=== PATIENT | male | born 1940 | race Caucasian/White ===

== ENCOUNTER 2023-10-17 14:53 | Outpatient (CLI) | payer MEDICARE, SELFPAY ==
[2023-10-17 10:47] LABS: Absolute Eosinophil Count 0.09 10^3/uL (0.0-0.7); Absolute Lymphocyte Count 0.54 10^3/uL (1.2-3.4); Absolute Monocyte Count 0.11 10^3/uL (0.1-0.8); Absolute Neutrophil Count 0.99 10^3/uL (1.2-6.7); Eosinophils % 5.2 %; HCT 35.9 % (40.0-50.0); HGB 11.3 g/dL (13.5-17.5); Lymphocytes % 31.2 %; MCHC 31.5 % (32.0-36.0); MCV 89 fL (80-95); Monocytes % 6.4 %; Neutrophils % 57.2 %; RBC 4.03 10^6/uL (4.36-5.78); RDW 17.2 % (11.8-14.1); RDW-SD 55.5 fL
[2023-10-17 11:11] LABS: Diff Comment Diff Reviewed; RBC Morphology Normal
[2023-10-17 11:19] LABS: Platelet Count 28 10^3/uL (130-400); WBC 1.73 10^3/uL (4.4-10.8)
--- OUTSIDE RECORDS SUMMARY | 2023-10-17 15:03 | XMS_ITS | Encounter Summary ---
[place] [address] Care Team Providers Care Centrex Radio Operator Name Role Phone Molina Herr MD Primary Care Provider [phone] Reason for Visit * Reason Onset Date Comments Questions 10/17/2023 Encounter Details Date Type Department Care Team (Late st Contact Info) Description 10/17/2023 Telephone [place] [address] Malgorzata Reynoso, ROAD MAKER ROOM Questions Social History Tobacco Use Types Packs/Day Years Used Date Smoking Tobacco: Never Smokeless Tobacco: Never Alcohol Use Standard Drinks/Week Comments Not Currently 0 (1 standard drink = 0.6 oz pur e alcohol) B1300 Health Literacy Answer Date Recor ded How often do you need to hav e someone help you when you read instructions, pamphlets, or other written material from your doctor or pharmacy? Sometimes 08/22/2023 [facility] Utilities Answer Date Recorded In the past 12 months has e electric, gas, oil, or water company threatened to shut off services in your home? No 08/22/2023 Overall Financial Resource Strain (CARDIA) Answe r Date Recorded How hard is it for you to pa y for the very basics like food, housing, medical care, and heating? Not hard at all 08/22/2023 Hunger Vital Sign Answer Date Recorded Within the past 12 months, y ou worried that your food would run out before you got the money to buy more. Never true 08/22/19 24 Within the past 12 months, t he food you bought just didn't last and you didn't have money to get more. Never true 08/22/2023 PRAPARE - Transportation Answer Date Re corded In the past 12 months, has l ack of transportation kept you from medical appointments or from getting medications? No 08/05 In the past 12 months, has l ack of transportation kept you from meetings, work, or from getting things needed for daily living? No 08/22/2023 Housing Stability Vital Sign Answer Carrington e Recorded In the last 12 months, was t here a time when you were not able to pay the mortgage or rent on time? No 08/22/2023 In the past 12 months, how m any times have you moved where you were living? 0 08/22/2023 At any time in the past 12 m [facility], were you homeless or living in a long-term (including now)? No 08/22/2023 [facility] IPV Inpatient Questions Answer Date Recorded Does Anyone Try to Keep You From Having Contact with Others or Doing Things Outside Your Home? no 08/04/2023 Feels Threatened by Someone no 07/07 Feels Unsafe at Home or Work/School no 08/04/2023 Physical Signs of Abuse Present no 08/04/2023 Sex and Gender Information Value Date Recorded Sex Assigned at Male 02/02/2021 9:04 PM EST Gender Identity Male 02/02/2021 9:04 PM EST Sexual Orientation Not on file documented as of this encounter Miscellaneous Notes * Telephone Encounter - Malgorzata Reynoso RN - 10/17/2023 2:23 PM EDT Received call from June who stated that they need a paper order for [facility] and questioning what the infusion appointment was for tomorrow. Reviewed that the appointment scheduled for for tomorrow was erroneous and has been placed for today's IV access. Apologized for the miscommunication. Will send copy of lab order to her attached to a [facility] encounter. All her questions answered to her apparent satisfaction. She is aware to call clinic with any concerns or questions. Copy of lab order faxed to [facility]. Copy of lab order sent to pt via [facility]. documented in this encounter Plan of Treatment Upcoming Encounters Date Type Department Care Team (Late st Contact Info) Description 10/27/2023 11:15 AM EDT Office Visit Palliative Medicine at [place] [address] Elly Alston MD [facility] HOSPICE [place] [address] 10/27/2023 1:00 PM EDT Office Visit Speech Therapy at [place] [address] Debra Franco, SUPERVISOR BRIAR SHOP 11/03/2023 2:00 PM EDT Office Visit Speech Therapy at [place] [address] Debra Franco, SUPERVISOR [employer]AR [employer] 11/08/2023 2:30 PM EDT Appointment MRI at [place] [address] Navjot Grider MD [facility] [address] [place] [address] 11/09/2023 1:45 PM EDT Office Visit Hematology and Oncology at [place] [address] Isabell Jacob MD [facility] [place] [address] 11/11/2023 10:30 AM EDT Office Visit Radiation Oncology at [address] Nicki Sharpe MD [facility] [place] [address] 11/15/2023 10:00 AM EDT [place] [address] Debra Franco, SUPERVISOR [employer] 11/16/2023 9:00 AM EDT Office Visit [place] [address] Bisi Nam 11/22/2023 10:00 AM EDT [place] [address] Debra Franco SUPERVISOR [employer] 11/30/2023 9:00 AM EDT Office Visit [place] [address] Bisi Nam 12/14/2023 9:00 AM EDT Office Visit [place] [address] Bisi Nam 12/28/2023 9:00 AM EDT Office Visit [place] [address] Bisi Nam documented as of this encounter Goals Goal Patient Goal Type Associated Problems Recent Progress Patient-Stated? Author Patient's specific desired goal: Patient Facing Action Plan Andrei Lee, [facility] Note: Goal(s): maintain quality of life as much as possible Measured by: quality of life scale, ability to participate in activities which he enjoys and needs to do Time-frame: to be assessed at approximately the one year point by pharmacy, or sooner if patient asks to discuss documented as of this encounter Visit Diagnoses Not on filedocumented in this encounter Care Teams Centrex Radio Operator Relationship Specialty Start Date End Date Molina Herr MD [address] [place] [address] PCP - General 01/27/10 documented as of this encounter
--- OUTSIDE RECORDS SUMMARY | 2023-10-17 15:03 | XMS_ITS | Encounter Summary ---
Author Organization [place] [address] Care Team Providers Care Site Supervisor Name Role Phone Molina Herr MD Primary Care Provider [phone] Reason for Visit * Speech Therapy (Routine) - Authorized Specialty Diagnoses / Procedures Referred By Contac t Referred To Contact Speech Therapy Diagnoses Brain tumor RFV aphasia - please sched CURT. Debra would be preferred, but any of the neuro exposure machine operator are fine. Michael Lundberg MD [facility] [place] [address] [facility] [place] [address] Referral ID Status Reason Start Date Expiration Date Visits Requested Visits Authorized [id number] Authorized Evaluate and Treat 08/06/2023 08/05/2024 100 100 Encounter Details Date Type Department Care Team (Latest Contact Info) Description 10/13/2023 9:00 AM EDT [place] [address] Debra Franco, PROCESS PUMPER Cognitive communication disorder; Brain tumor Social History Tobacco Use Types Packs/Day Years [...] from your doctor or pharmacy? Sometimes 08/22/2023 [facility] Utilities Answer Date Recorded In the past 12 months has th e electric, gas, oil, or water company [...] were you homeless or living in a mcfp (including now)? 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 right hand dominant male who was seen on 08/24/2023 for an Outpatient Mohwtd-Aeaecixo-Ccuibrtzw Evaluation. He is known to this clinician from his inpatient assessment on 08/05/2023 which was concerning for aphasia and cognitive-communication diff iculties. Prior medical history is significant for elective LEFT craniotomy for resection of LEFT temporal mass with Kareem Dietrich TKA (~3-4 weeks prior to admission), OA, and carotid stenosis on ASA81. He was referred by Dr. Michael Lundberg (Neurosurgery), now being followed by Tonya Plasencia (Neurosurgery) as an outpatient. Also being followed by Neuro-Ophthalmology, Radiation Oncology, Neuro-Oncology, and Palliative Care. Interval History: Per chart review, Maldonado was seen by Radiation Oncology and Hematology and Oncology since our last visit. No acute events have occurred per patient-report. Fewer visual concerns/hallucinations. Subjective: Maldonado was encountered in the outpatient rehab office, unaccompanied. He was pleasant and engaged throughout this session. Objective: Pt seen for speech therapy targeting aphasia and cognitive- communication and demonstrated the following: Pain: Did not appear to be in acute distress. Cognitive-Linguistic Intervention: Formal Interview: Maldonado reported completion of Constant Therapy homework. Added more complex assignments today. Practiced multi-paragraph level reading: has been working on reading slower and sounding out words He has started a memory book on phone to help remember people - name and photos Education: Maldonado was provided education through a collaborative discussion about reading comprehension strategies. Education was provided in order to support understanding and choice-making, which islinked to motivation and outcomes in treatment. He required maximum cueing to implement them. Reading page-length passage aloud: had occasional hesitations. Dropped last sound x1; Added initial sound x1, semantic parapaphasia x3; good error detection Reading comprehension: 2/4 accuracy +2 with moderate cueing Semantic Feature Analysis (SFA): Semantic Feature Analysis is a treatment approach used to target word-finding skills through the direct stimulation of semantic categories. Pt was provided with a target picture and was asked to describe the group to which it belongs, the use, what it does (action), what it reminds the pt of (association), location where it would be found, and the properties or description of it. Trial 1: Basketball- 08/10 with minimal cueing Trial 2: Fan- 08/10 independently Phonological Components Analysis (ASSISTED LIVING ASSISTANT): Phonological Components Analysis is a treatment approach based off of the principles and structure of SFA. It targets word-finding skills through the direct stimulation of phonological categories. Ptwas provided with a target picture and was asked to identify the first sound, another word that starts with that sound (first sound associate), final sound, rhyming word, and number of syllables. Reviewed homework: Trial 1: Basketball- 07/09 with minimal cueing Trial 2: Fan- 07/09 independently Education: Maldonado has been educated on results and recommendations and verbalized understanding/agreement. At the end of the session he denied outstanding questions or concerns. Home Exercise Program (HEP) Recommendations: Free adriana suggestions: FiveStarswMovinto Fun Cross Modafirma.Meditech (choose complex level games such as gin rummy, spit, etc.) Lingraphica TalkPath Therapy (iPad only, or on desktop website) Paid adriana suggestions: Constant Therapy: good for different language skills Brain HQ: different activities targeting attention, memory, processing speed, etc. Free online word games: Wordle Mohan Quordle NYT Daily Mini Crossword Phrazle Offline activities: Plan a trip in a large city (e.g., [facility], [place]) and research your routes, tickets, places to stay, meals, etc. To make it more complex, stick to a budget! Make a bucket list and write down steps towards achieving these tasks. Make a list of the last 10 dinners you've made and how to make them. Make a list of activities that have been more difficult since your surgery and brainstorm ways to make them easier. Think of tools provided to you by your PROCESS PUMPER. Play offline/live word games with family/friends Reading: start at the sentence-level and work your way up. Try to read and work through each troublesome word before moving on. Assessment: Perfecto Okeefe was seen on 10/13/2023 for a follow-up PROCESS PUMPER visit. Addressed treatment goals targeting word-finding through SFA and ASSISTED LIVING ASSISTANT and reading fluency/comprehension through education and implementation of a functional task. Support needs ranged from minimal to maximum cueing today, depending on the tasks. Homework: continue with constant therapy; Semantic Feature Analysis and Phonological Components Analysis worksheets; Reading comprehension task Pt will benefit from continued therapeutic interventions to achieve therapy goals. 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 Recommendations: Internal memory strategies: Repetition: saying the same information over and over either in your mind or out loud Clarification: asking people questions to ensure you understand Chunking: breaking down instructions or groups of things into smaller chunks Rhyming: making a rhyme out of important information Visualization: making a picture of the information in your mind, especially where you put somethingdown Association: linking old information (superintendent marine oil terminal memory) with new information such as taking medicine with breakfast External memory strategies: Write things down in a store planner or on a calendar Set timers or alarms to remind yourself to do something Write notes to remind yourself to do something (to-do list, shopping list, etc.) Keep important items in the same place so you always remember where they are Stick to a consistent daily routine Word-Finding Strategies Delay Wait a few seconds to see if the word may come out on its own. Be patient with yourself, and ask your communication partner to give you time. ???Do you have any??? wait a minute??? a pen??? Describe Talk around the word. Give the listener a description of the word you are looking for such as color, size, what it's used for, where you'd find it, etc. ???Do you have a??? thing that you write with??? Synonyms Think of a word that means the same or something similar. ???Do you have a??? writing utensil?Not a pencil? First Letter Try to write or think of the first letter of the word. Scan the alphabet to see if any letter triggers anything for you. ???Do you have a??? (trace a ???P?? in the air)??? pen?Do you have a??? it starts with a p? Gesture Use your hands or body to act out the word, like playing a game of Just Soles. Even gesturing with your hands in a non-specific way or tapping the table may help activate the brain. ???Do you have a??? (pretend to write)??? Draw Sketch out a quick picture of what you're trying to say. You don't have to be an artist to use drawing to communicate. ???Do you have a??? (draws a pen on a notepad)??? Come Back Later If you can't think of the word and your partner can't guess, it's okay to give up for now. This is a last resort, so try other strategies first. ???Do you have a??? [tries every other strategy]??? oh, never mind??? I'll ask you later.?? Adapted from: [email or web address]-[email or web address]/ Speech Therapy Goals: All ongoing unless otherwise noted. - Patient will learn and implement word finding strategies during confrontational naming with 80% accuracy and minimal-moderate cues. - Patient will demonstrate accurate insight and metacognitive awareness of linguistic abilities anddeficits during language tasks. - Patient will independently participate in high level home exercise program w/ focus on receptive and expressive language. (CT, etc.) - Patient will use a listening comprehension strategy - i.e. visualization, paraphrasing, questioning, association, etc. - to accurately respond to 80% of WH questions about an auditory passage across three consecutive probing sessions. - Patient will improve reading comprehension of multi paragraph length info with 80% accuracy independently. - Patient will recall 100% of compensatory strategies with minimal fading cues. - Patient will utilize trained compensatory strategies while presented with auditory instructions and recall 80% of the information given use of external memory aids. - Patient will recall 5 or more items after a 30 minute delay given intermittent min verbal cues inorder to increase independence during functional memory tasks. - Patient will utilize trained strategies to complete mental manipulation tasks with 90% accuracy given min fading cues - Patient will incorporate use of journal for various ADLs with complete independence. - Patient will demonstrate selective attention to auditory stimuli with 90% accuracy given min fading cues. - Patient will demonstrate selective attention to visual stimuli with 90% accuracy given min fadingcues. - Patient will demonstrate alternating attention by being able to shift focus between tasks/activities with 90% accuracy given min fading cues. - Patient will demonstrate divided attention by responding to multiple tasks or details within tasks at the same time with 90% accuracy given min fading cues. Firewall Administrator Goals: - Patient will be able to demonstrate independence w/ higher level cognitive demands in home, community, and work environments, utilizing compensatory and support strategies independently as needed, for successful return to prior level of function. - Patient will independently demonstrate compensatory and support strategies to improve communicative effectiveness in his current living environment. Plan: - Recommend skilled PROCESS PUMPER services, 60 minute sessions, for 4 more sessions. - Implementation of a HEP Debra Franco MS, CCC-PROCESS PUMPER Speech-Language Pathologist Pager # [phone] documented in this encounter Plan of Treatment Upcoming Encounters Date Type Department Care Team (Late st Contact Info) Description 10/27/2023 11:15 AM EDT Office [place] [address] [facility] [address] HOSPICE AND [place] [address] 10/27/2023 1:00 PM EDT [place] [address] Debra Franco PROCESS PUMPER 11/03/2023 2:00 PM EDT Office Visit Speech Therapy at [place] [phone] Debra Franco, PROCESS PUMPER 11/08/2023 2:30 PM EDT Appointment MRI at [address] [facility] [address] HEMATOLOGY [place] [address] 11/09/2023 1:45 PM EDT Office Visit Hematology and Oncology at [address] [facility] [place] [address] 11/11/2023 10:30 AM EDT Office Visit Radiation Oncology at [place] [phone] [facility] [place] [address] 11/15/2023 10:00 AM EDT [place] [address] Debra Franco, ROLANDO 11/16/2023 9:00 AM EDT Office Visit [place]ology [place] [address] Bisi Nam 11/22/2023 10:00 AM EDT [place] [address] Debra Franco, ROLANDO 11/30/2023 9:00 AM EDT Office Visit [place] [address] Bisi Nam 12/14/2023 9:00 AM EDT Office Visit [place] [address] Bisi Nam 12/28/2023 9:00 AM EDT Office Visit [place] [address] Bisi Nam documented as of this encounter Goals Goal Patient Goal Type Associated Problems Recent Progress Patient-Stated? Author Patient's specific desired goal: Patient Facing Action Plan No Andrei Egan, [facility] Note: Goal(s): maintain quality of life as much as possible Measured by: quality of life scale, ability to participate in activities which he enjoys and needs to do Time-frame: to be assessed at approximately the one year point by pharmacy, or sooner if patient asks to discuss documented as of this encounter Visit Diagnoses Diagnosis Cognitive communication disorder Brain tumor Neoplasm of unspecified nature of brain documented in this encounter Care Teams Site Supervisor Relationship Specialty Start Date End Date Molina Herr MD [address] [place] [address] PCP - General 01/27/10 documented as of this encounter
--- OUTSIDE RECORDS SUMMARY | 2023-10-17 15:03 | XMS_ITS ---
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 Cognitive communication disorder 08/24/2023 Brain tumor 07/28/2023 Total knee replacement status 07/05/2023 Acute appendicitis 03/08/2017 Primary osteoarthritis of left knee (DJD) 2014 Osteomyelitis 08/31/2010 Discitis of lumbar region 08/21/2010 Lumbar degenerative disc disease 08/21/2010 Current Oncology Plans Pentamidine (Pentam) Inhalation or Infusion ([facility], [facility], [facility])* Plan Start Date: 10/14/2023 Plan Provider:Isabell Jacob MD Linked Problems Glioblastoma of temporal lob e Treatment Medications No medications scheduled. Other Current Plans Adult Transfusion Order ([facility]c)* Plan Start Date:10/10/2023 Plan Provider:Navjot Grider MD Linked Problems Thrombocytopenia Treatment Medications No medications scheduled. Past Plans No past plan information found. Radiation Treatments * No radiation treatments are documented for this patient in [facility]. Treatments may have been administered in another system.
--- OUTSIDE RECORDS SUMMARY | 2023-10-17 15:03 | XMS_ITS | Encounter Summary ---
Author Organization [facility] [place] [address] Care Team Providers Care Unisaw Operator Name Role Phone Molina Herr MD Primary Care Provider [phone] Encounter Details Date Type Department Care Team (Latest Contact Info) Description 10/13/2023 Travel Social History Tobacco Use Types Packs/Day Years [...] from your doctor or pharmacy? Sometimes 08/22/2023 [facility] Utilities Answer Date Recorded In the past 12 months has [facility] [employer], gas, oil, or water [employer] threatened to shut off services in your [...] any time in the past 12 m [facility], were you homeless or living in a fdc (including now)? No 08/22/2023 IPV Inpatient Questions Answer Date Recorded Does [...] on file documented as of this encounter Plan of Treatment Upcoming Encounters Date Type Department Care Team (Late st Contact Info) Description 10/27/2023 11:15 AM EDT Office [place] [address] Elly Alston MD [facility] DR HOSPICE AND [place] [address] 10/27/2023 1:00 PM EDT Office [place] [address] Debra Franco, METAL ROASTER 11/03/2023 2:00 PM EDT Office [place] [address] Debra Franco, METAL ROASTER 11/08/2023 2:30 PM EDT Appointment MRI at [place] [address] Navjot Grider MD [facility] DR [place] [address] 11/09/2023 1:45 PM EDT Office Visit Hematology and Oncology at [address] Isabell Jacob MD [facility] [place] [address] 11/11/2023 10:30 AM EDT Office Visit Radiation Oncology at [address] Nicki Sharpe MD [facility] [place] [address] 11/15/2023 10:00 AM EDT Office [place] [address] Debra Franco, ROLANDO 11/16/2023 9:00 AM EDT Office Visit Hematology [place] [address] Bisi Nam 11/22/2023 10:00 AM EDT Office [place] [address] Debra Franco, ROLANDO 11/30/2023 9:00 AM EDT Office Visit Hematology [place] [address] Bisi Nam 12/14/2023 9:00 AM EDT Office Visit [place] [address] Bisi Nam 12/28/2023 9:00 AM EDT Office Visit [place] [address] Bisi Nam documented as of this encounter Goals Goal Patient Goal Type Associated Problems Recent Progress Patient-Stated? Author Patient's specific desired goal: Patient Facing Action Plan Andrei Lee, [facility] Note: Goal(s): maintain quality of life as much as possible Measured by: quality of life scale, ability to participate in activities which he enjoys and needs to do Time-frame: to be assessed at approximately the one year point by pharmacy, or sooner if patient asks to discuss documented as of this encounter Visit Diagnoses Not on filedocumented in this encounter Care Teams Unisaw Operator Relationship Specialty Start Date End Date Molina Herr MD [facility] [address] [place] [address] PCP - General 01/27/10 documented as of this encounter
--- OUTSIDE RECORDS SUMMARY | 2023-10-17 15:03 | XMS_ITS | Encounter Summary ---
Author Organization [facility] [place] [address] Care Team Providers Care Blasting Worker Name Role Phone Molina Herr MD Primary Care Provider [phone] Encounter Details Date Type Department Care Team (Late st Contact Info) Description 10/13/2023 Orders Only [place]ematology [place] [address] Belinda Peña PA [facility] [place] [address] Glioblastoma of temporal lobe; 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 use; Thrombocytopenia; Lymphocytopenia Social History Tobacco Use Types Packs/Day Years [...] from your doctor or pharmacy? Sometimes 08/22/2023 [facility] Utilities Answer Date Recorded In the past [...] any time in the past 12 m [facility], were you homeless or living in a [place] [facility] [place] facility (including now)? No 08/22/2023 IPV Inpatient Questions [...] AM EDT Office [place] [address] Elly Alston MD [facility] HOSPICE AND [place] [address] 10/27/2023 1:00 PM EDT Office Visit Speech Therapy at [place] [phone] Debra Franco, ROLANDO 11/03/2023 2:00 PM EDT Office Visit Speech Therapy at [place] [phone] Debra Franco, ANALYSIS EVALUATOR 11/08/2023 2:30 PM EDT Appointment MRI at [place] [phone] Navjot Grider MD [facility] DR [place] [address] 11/09/2023 1:45 PM EDT Office Visit Hematology and Oncology at [place] [phone] Isabell Jacob MD [facility] [place] [address] 11/11/2023 10:30 AM EDT Office Visit Radiation Oncology at [place] [phone] Nicki Sharpe MD [facility] [place] [address] 11/15/2023 10:00 AM EDT Office [place] [address] Debra Franco, ANALYSIS EVALUATOR 11/16/2023 9:00 AM EDT Office Visit Hematology [place] [address] Bisi Nam 11/22/2023 10:00 AM EDT Office [place] [address] Debra rFanco, ANALYSIS EVALUATOR 11/30/2023 9:00 AM EDT Office Visit Hematology [place] [address] Bisi Nam 12/14/2023 9:00 AM EDT Office Visit Hematology [place] [address] Bisi Nam 12/28/2023 9:00 AM EDT Office Visit [place]ematology [place] [address] Bisi Nam Scheduled Orders Name Type Priority Associated Diagnoses Orde r Schedule CBC (with Diff) Lab Routine Glioblastoma of temporal lobe 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 use Thrombocytopenia Lymphocytopenia Expected: 10/17/2023, Expires: 10/12/2024 documented as of this encounter Goals Goal Patient Goal Type Associated Problems Recent Progress Patient-Stated? 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
--- OUTSIDE RECORDS SUMMARY | 2023-10-17 15:03 | XMS_ITS | Encounter Summary ---
[place] [address] Care Team Providers Care Dressmaker Helper Name Role Phone Molina Herr MD Primary Care Provider [phone] Encounter Details Date Type Department Care Team (Late st Contact Info) Description 10/17/2023 Telephone Hematology [place] [address] Malgorzata Reynoso, OTR OWNER OPERATOR TRUCK DRIVER ROOM Social History Tobacco Use Types Packs/Day Years [...] from your doctor or pharmacy? Sometimes 08/22/2023 [place] Utilities Answer Date Recorded In the past [...] any time in the past 12 m [facility], were you homeless or living in a alf (including now)? No 08/22/2023 IPV Inpatient Questions [...] Encounter - Malgorzata Reynoso RN - 10/17/2023 11:16 AM EDT CRITICAL/STAT RESULT NOTIFICATION TELEPHONE NOTE Date of call: 10/17/2023 Time of call: 11:16 AM Two patient identifiers: [x] Caller: External Hernandez bruce/YURIY Reason for call: Critical results, calling for Lab results Test and results: plts 28, wbc 1.73 Read back: [x] Recent Results (from the past 168 hour(s)) Type and screen (MC/CGP/RUBINA) Collection Time: 10/10/23 2:56 PM Result Value Ref Range ABORH Type A POSITIVE PATIENT HISTORY Unneccessary Expires at 2359 on: 10-10-2023 ANTIBODY SCREEN AUTOMATED Negative T&S only valid at [facility] CBC (with Diff) Collection Time: 10/10/23 2:56 PM Result Value Ref Range White Blood Cell 3.81 x10(3)/mcL Red Blood Cell 3.98 (L) 4.58 - 5.54 x10(6)/mcL Hemoglobin 11.1 (L) 13.7 - 16.5 g/dL Hematocrit 35.0 (L) 40.5 - 48.5 % Mean Cell Volume 87.9 82.9 - 93.1 fL Mean Cell Hemoglobin 27.9 27.5 - 32.1 pg Mean Cell Hemoglobin Concentration 31.7 (L) 32.0 - 35.7 g/dL Platelet 18 (CRIT) 145 - 357 x10(3)/mcL Mean Platelet Volume 8.3 7.6 - 12.9 fL RDW Standard Deviation 54.0 (H) 36.0 - 45.0 fL RDW coefficient of variation 17.3 (H) 11.4 - 13.8 % NRBC% auto 0.0 % NRBC Absolute 0.00 0.00 - 0.00 x10(3)/mcL Neutrophil % 77.6 % Neutrophil Absolute 2.96 1.70 - 6.10 x10(3)/mcL Lymph % 12.9 % Lymph Absolute 0.49 (L) 0.90 - 3.20 x10(3)/mcL Monocyte % 6.6 % Monocyte Absolute 0.25 (L) 0.30 - 0.90 x10(3)/mcL Eos % 2.1 % Eos Absolute 0.08 0.00 - 0.40 x10(3)/mcL Basophil % 0.3 % Baso Absolute 0.01 0.00 - 0.10 x10(3)/mcL Immature Gran % 0.5 % Immature Gran Absolute 0.02 0.00 - 0.04 x10(3)/mcL Prepare Platelets, Apheresis Collection Time: 10/11/23 6:49 AM Result Value Ref Range Status Information Transfused Product Identification APH-PLTS Unit Number [id number] Product Code [id number] Unit Blood Type APOS Specimen Expiration Date [id number] [place] 264 Issue Date / Time CBC (with Diff) Collection Time: 10/11/23 11:44 AM Result Value Ref Range White Blood Cell 4.12 x10(3)/mcL Red Blood Cell 3.93 (L) 4.58 - 5.54 x10(6)/mcL Hemoglobin 11.0 (L) 13.7 - 16.5 g/dL Hematocrit 34.6 (L) 40.5 - 48.5 % Mean Cell Volume 88.0 82.9 - 93.1 fL Mean Cell Hemoglobin 28.0 27.5 - 32.1 pg Mean Cell Hemoglobin Concentration 31.8 (L) 32.0 - 35.7 g/dL Platelet 54 (L) 145 - 357 x10(3)/mcL Mean Platelet Volume 10.2 7.6 - 12.9 fL RDW Standard Deviation 54.8 (H) 36.0 - 45.0 fL RDW coefficient of variation 17.5 (H) 11.4 - 13.8 % NRBC% auto 0.0 % NRBC Absolute 0.00 0.00 - 0.00 x10(3)/mcL Neutrophil % 82.0 % Neutrophil Absolute 3.38 1.70 - 6.10 x10(3)/mcL Lymph % 9.5 % Lymph Absolute 0.39 (L) 0.90 - 3.20 x10(3)/mcL Monocyte % 4.6 % Monocyte Absolute 0.19 (L) 0.30 - 0.90 x10(3)/mcL Eos % 3.2 % Eos Absolute 0.13 0.00 - 0.40 x10(3)/mcL Basophil % 0.2 % Baso Absolute 0.01 0.00 - 0.10 x10(3)/mcL Immature Gran % 0.5 % Immature Gran Absolute 0.02 0.00 - 0.04 x10(3)/mcL CBC (with Diff) Collection Time: 10/13/23 8:37 AM Result Value Ref Range White Blood Cell 3.30 (L) 4.00 - 9.50 x10(3)/mcL Red Blood Cell 3.92 (L) 4.58 - 5.54 x10(6)/mcL Hemoglobin 11.1 (L) 13.7 - 16.5 g/dL Hematocrit 34.9 (L) 40.5 - 48.5 % Mean Cell Volume 89.0 82.9 - 93.1 fL Mean Cell Hemoglobin 28.3 27.5 - 32.1 pg Mean Cell Hemoglobin Concentration 31.8 (L) 32.0 - 35.7 g/dL Platelet 41 (L) 145 - 357 x10(3)/mcL Mean Platelet Volume 9.8 7.6 - 12.9 fL RDW Standard Deviation 56.1 (H) 36.0 - 45.0 fL RDW coefficient of variation 17.6 (H) 11.4 - 13.8 % NRBC% auto 0.0 % NRBC Absolute 0.00 0.00 - 0.00 x10(3)/mcL Neutrophil % 68.2 % Neutrophil Absolute 2.25 1.70 - 6.10 x10(3)/mcL Lymph % 20.6 % Lymph Absolute 0.68 (L) 0.90 - 3.20 x10(3)/mcL Monocyte % 5.8 % Monocyte Absolute 0.19 (L) 0.30 - 0.90 x10(3)/mcL Eos % 4.8 % Eos Absolute 0.16 0.00 - 0.40 x10(3)/mcL Basophil % 0.3 % Baso Absolute 0.01 0.00 - 0.10 x10(3)/mcL Immature Gran % 0.3 % Immature Gran Absolute 0.01 0.00 - 0.04 x10(3)/mcL Name of Provider Notified: MURPHY Holguin Provider acknowledgement: [x] Time of Notification: 112, 1121 Mode of Notification: Secure chat Plan of care: Other: transfusion 10/16 labs: ANC 0.99, ALC 0.54 Spoke w/ Yadi at [facility] infusion suite (fax [phone], phone [phone])who stated they would need to order the plts and wouldn't be able to transfuse till ~ 1800. Spoke w/ Emi, RN & Maggy, RN on 1 W and mariza Ashton RN in infusion - 3K to start IV and 1 Wwill transfuse. MURPHY Holguin notified pt of need to come for transfusion, pt is en route back to [facility]. Repeat CBC per MURPHY Holguin. [facility] msg sent. Msg left for pt notifying him of appt @ 1430 on and need to come to first for IV access. documented in this encounter Plan of Treatment Upcoming Encounters Date Type Department Care Team (Late st Contact Info) Description 10/27/2023 11:15 AM EDT Office Visit Palliative Medicine at [place] [address] Elly Alston MD [facility] DR HOSPICE [place] [address] 10/27/2023 1:00 PM EDT Office Visit Speech Therapy at [place] [address] Debra Franco, ASSET PROTECTION DETECTIVE 11/03/2023 2:00 PM EDT Office Visit Speech Therapy at [place] [address] Debra Franco, ASSET PROTECTION DETECTIVE 11/08/2023 2:30 PM EDT Appointment MRI at [place] [address] Navjot Grider MD [facility] DR [place] [address] 11/09/2023 1:45 PM EDT Office Visit Hematology and Oncology at [place] [address] Isabell Jacob MD [facility] [place] [address] 11/11/2023 10:30 AM EDT Office Visit Radiation Oncology at [place] [address] Nicki Sharpe MD [facility] [place] [address] 11/15/2023 10:00 AM EDT Office Visit Speech Therapy at [place] [phone] [address] Debra Franco ASSET PROTECTION DETECTIVE 11/16/2023 9:00 AM EDT Office Visit Hematology and Oncology at [facility] [place] [address] Bisi Nam 11/22/2023 10:00 AM EDT Office [place] [address] Debra Franco ASSET PROTECTION DETECTIVE 11/30/2023 9:00 AM EDT Office Visit Hematology [place] [address] Bisi Nam 12/14/2023 9:00 AM EDT Office Visit [place]ology [place] [address] Bisi Nam 12/28/2023 9:00 AM EDT Office Visit [place] [address] Bisi Nam documented as of this encounter Goals Goal Patient Goal Type Associated Problems Recent Progress Patient-Stated? Author Patient's specific desired goal: Patient Facing Action Plan Andrei Lee, [facility] Note: Goal(s): maintain quality of life as much as possible Measured by: quality of life scale, ability to participate in activities which he enjoys and needs to do Time-frame: to be assessed at approximately the one year point by pharmacy, or sooner if patient asks to discuss documented as of this encounter Procedures Procedure Name Priority Date/Time Associated Diagnosis Comments EXTERNAL LAB CBC CMP THYROID RESULTS PANEL Routine 10/17/2023 10:40 AM EDT documented in this encounter Results * (ABNORMAL) CBC / CMP / Thyroid External Results (10/17/2023 10:40 AM EDT) WBC - External 1.73(L) EXTER NAL FACILITY RBC - External 4.03(L) EXTER NAL FACILITY Hemoglobin - External 11.3(L) EXTERNAL FACILITY Hematocrit - External 35.9(L) EXTERNAL FACILITY Platelets - External 28(L) EXTERNAL FACILITY Blood 10/17/2023 10:4 0 AM EDT Historical Provider EXTERNAL LAB NONA [facility]EE EXTERNAL FACILITY documented in this encounter Visit Diagnoses Not on filedocumented in this encounter Care Teams Dressmaker Helper Relationship Specialty Start Date End Date Molina Herr MD [facility] [address] [place] [address] PCP - General 01/27/10 documented as of this encounter
--- OUTSIDE RECORDS SUMMARY | 2023-10-17 15:03 | XMS_ITS | Encounter Summary ---
[place] [address] Care Team Providers Care Stucco Applicator Name Role Phone Molina Herr MD Primary Care Provider [phone] Encounter Details Date Type Department Care Team (Late st Contact Info) Description 10/13/2023 Telephone Hematology [place] [address] Malgorzata Reynoso, POOL INSTALLER ROOM Social History Tobacco Use Types Packs/Day [...] from your doctor or pharmacy? Sometimes 08/22/2023 [facility] Utilities Answer Date Recorded In the past [...] any time in the past 12 m [facility], were you homeless or living in a intermediate (including now)? No 08/22/2023 IPV Inpatient Questions [...] Telephone Encounter - Malgorzata Reynoso RN - 10/13/2023 10:19 AM EDT Plan per Isabell Jacob MD: pentamidine infusion Plan per Maggy Chatterjee RN: 1030 appt in tomorrow Pt and June verbalized agreement w/plan and confirmed they would come for appt. documented in this encounter Plan of Treatment Upcoming Encounters Date Type Department Care Team (Late st Contact Info) Description 10/27/2023 11:15 AM EDT Office Visit Palliative Medicine at [facility] [place] [address] Elly Alston MD [facility] DR HOSPICE [place] [address] 10/27/2023 1:00 PM EDT Office Visit Speech Therapy at [place] [address] Debra Franco, DIE TRIMMER 11/03/2023 2:00 PM EDT Office Visit Speech Therapy at [address] Debra Franco, DIE TRIMMER 11/08/2023 2:30 PM EDT Appointment MRI at [place] [address] Navjot Grider MD [facility] DR [place] [address] 11/09/2023 1:45 PM EDT Office Visit Hematology and Oncology at [place] [address] Isabell Jacob MD [facility] [place] [address] 11/11/2023 10:30 AM EDT Office Visit Radiation Oncology at [place] [address] Nicki Sharpe MD [facility] [place] [address] 11/15/2023 10:00 AM EDT Office [place] [address] Debra Franco, DIE TRIMMER 11/16/2023 9:00 AM EDT Office Visit Hematology and Oncology at [place] [phone] Bisi Nam 11/22/2023 10:00 AM EDT Office [place] [address] Debra Franco, DIE TRIMMER 11/30/2023 9:00 AM EDT Office Visit Hematology [place] [address] Bisi Nam 12/14/2023 9:00 AM EDT Office Visit Hematology [place] [address] Bisi Nam W 12/28/2023 9:00 AM EDT Office Visit [place]ematology [place] [address] Bisi Nam documented as of this encounter Goals Goal Patient Goal Type Associated Problems Recent Progress Patient-Stated? Author Patient's specific desired goal: Patient Facing Action Plan Andrei Lee, [facility] Note: Goal(s): maintain quality of life as much as possible Measured by: quality of life scale, ability to participate in activities which he enjoys and needs to do Time-frame: to be assessed at approximately the one year point by pharmacy, or sooner if patient asks to discuss documented as of this encounter Visit Diagnoses Not on filedocumented in this encounter Care Teams Stucco Applicator Relationship Specialty Start Date End Date Molina Herr MD [facility] [address] [place] [address] PCP - General 01/27/10 documented as of this encounter
--- OUTSIDE RECORDS SUMMARY | 2023-10-17 15:03 | XMS_ITS | Encounter Summary ---
Author Organization [facility] [place] [address] Care Team Providers Care Minute Clerk For Basic Traffic Name Role Phone Molina Herr MD Primary Care Provider [phone] Encounter Details Date Type Department Care Team (Late st Contact Info) Description 10/17/2023 Orders Only Hematology [place] [address] Belinda Peña PA [facility] [address] Thrombocytopenia (Primary Dx); 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 use Social History Tobacco Use Types Packs/Day Years [...] from your doctor or pharmacy? Sometimes 08/22/2023 [facility] Utilities Answer Date Recorded In the [...] any time in the past 12 m [facility], were you homeless or living in a jail (including now)? No 08/22/2023 IPV Inpatient Questions [...] on file documented as of this encounter Progress Notes * Belinda Peña PA - 10/17/2023 12:00 PM EDT This is an 83yo M patient with GBM on concurrent temozolamide/radiation treatment. We have been monitoring his CBC closely as this medicine is know to cause thrombocytopenia. He received 1unit of platelets last Tuesday due to low platelets which improved his count but since then his platelets have continued to fall again. He hasn't reached his lai so have asked for another unit to be transfused today. Patient has been notified of his count and our concerns and is on his way to [facility] for anotherunit of platelets. The order has been placed and the blood bank has been notified of our concerns. Neuro-onc RN will call patient when she has a time for transfusion, likely in 1W. MURPHY [place] documented in this encounter Plan of Treatment Upcoming Encounters Date Type Department Care Team (Late st Contact Info) Description 10/27/2023 11:15 AM EDT Office Visit Palliative Medicine at [place] [address] [facility] [address] HOSPICE [place] [address] 10/27/2023 1:00 PM EDT Office Visit Speech Therapy at [place] [address] Debra Franco, SALES DEVELOPMENT REPRESENTATIVE 11/03/2023 2:00 PM EDT Office Visit Speech Therapy at [place] [address] Debra Franco, SALES DEVELOPMENT REPRESENTATIVE 11/08/2023 2:30 PM EDT Appointment MRI at [place] [address] [facility] DR [place] [address] 11/09/2023 1:45 PM EDT Office Visit Hematology and Oncology at [place] [address] [facility] [place] [address] 11/11/2023 10:30 AM EDT Office Visit Radiation Oncology at [address] [facility] [place] [address] 11/15/2023 10:00 AM EDT Office Visit Speech Therapy at [place] [phone] Debra Franco, SALES DEVELOPMENT REPRESENTATIVE 11/16/2023 9:00 AM EDT Office Visit Hematology [place] [address] Bisi Nma 11/22/2023 10:00 AM EDT Office Visit [place] [address] Debra Franco, SALES DEVELOPMENT REPRESENTATIVE 11/30/2023 9:00 AM EDT Office Visit Hematology [place] [address] Bisi Nam 12/14/2023 9:00 AM EDT Office Visit Hematology [place] [address] Bisi Nam 12/28/2023 9:00 AM EDT Office Visit Hematology [place] [address] Bisi Nam Scheduled Orders Name Type Priority Associated Diagnoses Orde r Schedule Type and screen ([facility] Blood Bank Routine Thrombocytopenia 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 use Expected: 10/17/2023, Expires: 11/16/2023 documented as of this encounter Goals Goal Patient Goal Type Associated Problems Recent Progress Patient-Stated? Author Patient's specific desired goal: Patient Facing Action Plan Andrei Lee, [facility] Note: Goal(s): maintain quality of life as much as possible Measured by: quality of life scale, ability to participate in activities which he enjoys and needs to do Time-frame: to be assessed at approximately the one year point by pharmacy, or sooner if patient asks to discuss documented as of this encounter Visit Diagnoses Diagnosis Thrombocytopenia- Primary Thrombocytopenia, unspecified 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 use Encounter for long-term (current) use of other medications documented in this encounter Care Teams Minute Clerk For Basic Traffic Relationship Specialty Start Date End Date Molina Herr MD [facility] [address] [place] [address] PCP - General 01/27/10 documented as of this encounter
--- OUTSIDE RECORDS SUMMARY | 2023-10-17 15:03 | XMS_ITS | Encounter Summary ---
Author Organization [place] [address] Care Team Providers Care Moisture Meter Operator Name Role Phone Molina Hrer MD Primary Care Provider [phone] Encounter Details Date Type Department Care Team (Late st Contact Info) Description 10/13/2023 Orders Only Hematology [place] [address] Belinda Peña PA [facility] [place] [address] Social History Tobacco Use Types Packs/Day Years [...] from your doctor or pharmacy? Sometimes 08/22/2023 [facility] Utilities Answer Date Recorded In the past 12 months has e [employer], gas, oil, or water company threatened to [...] any time in the past 12 m [facility], were you homeless or living in a [...] AM EDT Office Visit Pall[place] [phone] Elly Alston MD [facility] DR HOSPICE [place] [address] 10/27/2023 1:00 PM EDT Office Visit [place] [address] Debra Franco, ROLANDO 11/03/2023 2:00 PM EDT Office Visit Speech Therapy at [address] Debra Franco, CHIEF MECHANICAL ENGINEER 11/08/2023 2:30 PM EDT Appointment MRI at [place] [address] Navjot Grider MD [facility] DR [place] [address] 11/09/2023 1:45 PM EDT Office Visit Hematology and Oncology at [address] Isabell Jacob MD [facility] [place] [address] 11/11/2023 10:30 AM EDT Office Visit Radiation Oncology at [place] [address] Nicki Sharpe MD [facility] [place] [address] 11/15/2023 10:00 AM EDT Office Visit Speech Therapy at [place] [phone] Debra Franco, ROLANDO 11/16/2023 9:00 AM EDT Office Visit Hematology [place] [address] Bisi Nam 11/22/2023 10:00 AM EDT Office Visit [place] [address] Debar Franco, ROLANDO 11/30/2023 9:00 AM EDT Office Visit Hematology [place] [address] Bisi Nam 12/14/2023 9:00 AM EDT Office Visit Hematology [place] [address] Bisi Nam 12/28/2023 9:00 AM EDT Office Visit Hematology [place] [address] Bisi Nam documented as of this encounter Goals Goal Patient Goal Type Associated Problems Recent Progress Patient-Stated? Author Patient's specific desired goal: Patient Facing Action Plan Andrei Lee, [facility] Note: Goal(s): maintain quality [...] on filedocumented in this encounter Care Teams Moisture Meter Operator Relationship Specialty Start Date End Date Molina Herr MD [address] [place] [address] PCP - General 01/27/10 documented as of this encounter
--- OUTSIDE RECORDS SUMMARY | 2023-10-17 15:03 | XMS_ITS | Encounter Summary ---
Author Organization [facility] [place] [address] Care Team Providers Care Car Rental Deliverer Name Role Phone Molina Herr MD Primary Care Provider [phone] Encounter Details Date Type Department Care Team (Late st Contact Info) Description 10/17/2023 Orders Only [place]ematology [place] [address] Belinda Peña PA [facility] [place] [address] Thrombocytopenia; 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 use Social History Tobacco [...] from your doctor or pharmacy? Sometimes 08/22/2023 [facility] Utilities Answer Date Recorded In the [...] any time in the past 12 m [facility], were you homeless or living in a [facility] (including now)? No 08/22/2023 IPV Inpatient Questions [...] AM EDT Office [place] [address] Elly Alston MD [facility] DR HOSPICE AND [place] [address] 10/27/2023 1:00 PM EDT Office [place] [address] Debra Franco, LEAD ELECTRICIAN 11/03/2023 2:00 PM EDT Office Visit Speech Therapy at [place] [phone] Debra Franco, LEAD ELECTRICIAN 11/08/2023 2:30 PM EDT Appointment MRI at [place] [address] Navjot Grider MD [facility] DR HEMATOLOGY [place] [address] 11/09/2023 1:45 PM EDT Office Visit Hematology and Oncology at [address] Isabell Jacob MD [facility] [place] [address] 11/11/2023 10:30 AM EDT Office Visit Radiation Oncology at [place] [phone] Nicki Sharpe MD [facility] [place] [address] 11/15/2023 10:00 AM EDT Office [place] [address] Debra Franco, LEAD ELECTRICIAN 11/16/2023 9:00 AM EDT Office Visit Hematology [place] [address] Bisi Nam 11/22/2023 10:00 AM EDT Office [place] [phone] Debra Franco, LEAD ELECTRICIAN 11/30/2023 9:00 AM EDT Office Visit Hematology and Oncology at [place] [phone] Bisi Nam 12/14/2023 9:00 AM EDT Office Visit [place]ematology [place] [address] Bisi Nam 12/28/2023 9:00 AM EDT Office Visit [place]ology [place] [address] Bisi Nam Scheduled Orders Name Type Priority Associated Diagnoses Orde r Schedule CBC (with Diff) Lab Routine Thrombocytopenia 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 use Expected: 10/20/2023, Expires: 02/16/2024 documented as of this encounter Goals Goal Patient Goal Type Associated Problems Recent Progress Patient-Stated? Author Patient's specific desired goal: Patient Facing Action Plan Andrei Lee, [facility] Note: Goal(s): maintain quality of life as much as possible Measured by: quality of life scale, ability to participate in activities which he enjoys and needs to do Time-frame: to be assessed at approximately the one year point by pharmacy, or sooner if patient asks to discuss documented as of this encounter Visit Diagnoses Diagnosis Thrombocytopenia Thrombocytopenia, unspecified 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 use Encounter for long-term (current) use of other medications documented in this encounter Care Teams Car Rental Deliverer Relationship Specialty Start Date End Date Molina Herr MD [address] [place] [address] PCP - General 01/27/10 documented as of this encounter
--- OUTSIDE RECORDS SUMMARY | 2023-10-17 15:03 | XMS_ITS | Encounter Summary ---
Author Organization [facility] [place] [address] Care Team Providers Care Patent Searcher Name Role Phone Molina Herr MD Primary Care Provider [phone] Encounter Details Date Type Department Care Team (Latest Contact Info) Description 10/13/2023 8:32 AM EDT - 10/13/2023 11:59 PM EDT Hospital Encounter Hematology [place] [address] Glioblastoma of temporal lobe; 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 use; Thrombocytopenia; Lymphocytopenia Discharge Disposition: Home Social History Tobacco Use Types Packs/Day Years [...] from your doctor or pharmacy? Sometimes 08/22/2023 [facility] Utilities Answer Date Recorded In the past [...] any time in the past 12 m [facility], were you homeless or living in a correction (including now)? No 08/22/2023 [facility] IPV Inpatient [...] on file documented as of this encounter Medications at Time of Discharge Medication Sig Dispensed Refills Start Date End Date atovaquone (Mepron) 750 mg/5 mL SuspensionIndication s: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 use,Lymphocytopenia, Glioblastoma of temporal lobe Take 5 mLs by mouth every 12 hours for 21 days. 210 mL 10/11/2023 11/01/2023 dexAMETHasone (Decadron) 1 mg tabletIndications:Br ain tumor Take 1 tablet daily in the morning with breakfast 60 tablet 10/07/2023 MAGNESIUM CITRATE ORAL Take 450 mg by mouth daily. riboflavin, Vitamin B2, (Vitamin B2) 100 mg tablet Take by mouth. dexAMETHasone (Decadron) 1 mg tabletIndications:Br ain tumor Take 3mg once daily with breakfast 60 tablet 3 09/16/2023 ondansetron (Zofran) 4 mg tablet Take 1 tablet by mouth every 8 hours as needed for Nausea. 30 tablet 09/15/2023 temozolomide (Temodar) 5 mg capsuleIndications:G lioblastoma of temporal lobe Take 1 capsule (5 mg) with 1 other temozolomide prescription for 145 mg total by mouth daily. Take on an empty stomach. Call clinic before/prior to starting medication/script. 21 capsule 09/05/2023 temozolomide (Temodar) 140 mg capsuleIndications:G lioblastoma of temporal lobe Take 1 capsule (140 mg) with 1 other temozolomide prescription for 145 mg total by mouth daily. Take on an empty stomach. Call clinic before/prior to starting medication/script. 21 capsule 09/05/2023 pantoprazole EC (Protonix) [address] tabletIndications:Br ain tumor Take 1 tablet by mouth daily. 90 tablet 3 09/02/2023 dexAMETHasone (Decadron) 4 mg tabletIndications:Br ain tumor Take 1 tablet by mouth daily (after breakfast). 90 tablet 09/02/2023 fluconazole (Diflucan) 150 mg tablet Take 150 mg by mouth once. levETIRAcetam (Keppra) 500 mg tablet Take 1 tablet by mouth 2 times daily. 60 tablet 3 08/25/2023 senna-docusate (Pericolace) 8.6-50 mg Tablet Take 2 tablets by mouth 2 times daily. 120 tablet 08/25/2023 aspirin EC 81 mg EC (DR) tablet Take 1 tablet by mouth 2 times daily. 60 tablet 08/11/2023 acetaminophen (Tylenol) 650 mg/20.3 mL Solution Take 31.2 mLs by mouth every 6 hours as needed (mild pain (1-3)). 07/30/2023 pantoprazole EC (Protonix) [address] tablet Take 1 tablet by mouth daily. 30 tablet 07/31/2023 acetaminophen (Tylenol) 500 mg tablet Take 2 tablets by mouth 3 times daily. 180 tablet 07/05/2023 ubiquinone (Ubiquinone) 100 mg capsule Take 200 mg by mouth once. omeprazole (PRILOSEC) 20 mg Capsule, Delayed Release(E.C.) Take 20 mg by mouth daily. 4 03/08/2014 [id number] c (SOURCE CF) 200-10 mcg-mg Chew Take 1 tablet by mouth daily. 08/04/2010 levothyroxine (SYNTHROID) 25 mcg tablet 25MCG = 1 Tablet(s), PO, Once daily 09/27/2007 atorvastatin (LIPITOR) 10 mg tablet Take 20 mg by mouth. 09/27/2007 documented as of this encounter Plan of Treatment Upcoming Encounters Date Type Department Care Team (Late st Contact Info) Description 10/27/2023 11:15 AM EDT Office Visit Palliative Medicine at [place] [address] Elly Alston MD [facility] DR HOSPICE AND [place] [address] 10/27/2023 1:00 PM EDT Office Visit Speech Therapy at [place] [address] Debra Franco, DIRECTOR HOME HEALTH 11/03/2023 2:00 PM EDT Office Visit Speech Therapy at [place] [address] Debra Franco, DIRECTOR HOME HEALTH 11/08/2023 2:30 PM EDT Appointment MRI at [place] [address] Navjot Grider MD [facility] DR HEMATOLOGY [place] [address] 11/09/2023 1:45 PM EDT Office Visit Hematology and Oncology at [place] [address] Isabell Jacob MD [facility] [place] [address] 11/11/2023 10:30 AM EDT Office Visit Radiation Oncology at [place] [address] Nicki Sharpe MD [facility] DR RADIATION ONCOLOGY [place] [id number] 11/15/2023 10:00 AM EDT Office [place] [address] Debra Franco, DIRECTOR HOME HEALTH 11/16/2023 9:00 AM EDT Office Visit Hematology [place] [address] Bisi Nam 11/22/2023 10:00 AM EDT Office [place] [address] Debra Franco, DIRECTOR HOME HEALTH 11/30/2023 9:00 AM EDT Office Visit Hematology [place] [address] Bisi Nam 12/14/2023 9:00 AM EDT Office Visit [place]ematology [place] [address] Bisi Nam 12/28/2023 9:00 AM EDT Office Visit [place]ematology [place] [address] Bisi Nam documented as of this encounter [...] Procedure Name Priority Date/Time Associated Diagnosis Comments CBC (WITH DIFF) Routine 10/13/2023 8:37 AM EDT Glioblastoma of temporal lobe 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 use documented in this encounter Results * (ABNORMAL) CBC (with Diff) (10/13/2023 8:37 AM EDT) White Blood Cell 3.30(L) 4.00 - 9.50 x10(3)/mc L 10/13/2023 8:52 AM [facility] Red Blood Cell 3.92(L) 4.58 - 5.54 x10(6)/mc L 10/13/2023 8:52 AM [facility] Hemoglobin 11.1(L) 13.7 - 16.5 g/dL 10/13/2023 8:52 AM [facility] Hematocrit 34.9(L) 40.5 - 48.5 % 10/13/2023 8:52 AM [facility] Mean Cell Volume 89.0 82.9 - 93.1 fL 10/13/2023 8:52 AM [facility] Mean Cell Hemoglobin 28.3 27.5 - 32.1 pg 10/13/2023 8:52 AM [facility] Mean Cell Hemoglobin Concentration 31.8(L) 32.0 - 35.7 g/dL 10/13/2023 8:52 AM [facility] Platelet 41(L) 145 - 357 x10(3)/mc L 10/13/2023 8:52 AM [facility] Mean Platelet Volume 9.8 7.6 - 12.9 fL 10/13/2023 8:52 AM [facility] RDW Standard Deviation 56.1(H) 36.0 - 45.0 fL 10/13/2023 8:52 AM [facility] RDW coefficient of variation 17.6(H) 11.4 - 13.8 % 10/13/2023 8:52 AM [facility] NRBC% auto 0.0 % 10/13/2023 8:52 AM [facility] NRBC Absolute 0.00 0.00 - 0.00 x10(3)/mc L 10/13/2023 8:[address] [facility] Neutrophil % 68.2 % 10/13/2023 8:[address] [facility] Neutrophil Absolute 2.25 1.70 - 6.10 x10(3)/mc L 10/13/2023 8:[address] [facility] Lymph % 20.6 % 10/13/2023 8:[address] [facility] Lymph Absolute 0.68(L) 0.90 - 3.20 x10(3)/mc L 10/13/2023 8:[address] [facility] Monocyte % 5.8 % 10/13/2023 8:[address] [facility] Monocyte Absolute 0.19(L) 0.30 - 0.90 x10(3)/mc L 10/13/2023 8:[address] [facility] Eos % 4.8 % 10/13/2023 8:[address] [facility] Eos Absolute 0.16 0.00 - 0.40 x10(3)/mc L 10/13/2023 8:[address] [facility] Basophil % 0.3 % 10/13/2023 8:[address] [facility] Baso Absolute 0.01 0.00 - 0.10 x10(3)/mc L 10/13/2023 8:[address] [facility] Immature Gran % 0.3 % 8:[address] [facility] Immature Gran Absolute 0.01 0.00 - 0.04 x10(3)/mc L 10/13/2023 8:[address] [facility] Blood VENOUS BLOOD SPECIMEN / Unknown Venipuncture / Unknown 10/13/2023 8:37 AM EDT 10/13/2023 8:37 AM EDT Navjot Grider MD [place] [address] documented in this encounter Visit Diagnoses Diagnosis Glioblastoma of temporal lobe Malignant neoplasm of temporal lobe of brain 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 use Encounter for long-term (current) use of other medications Thrombocytopenia Thrombocytopenia, unspecified Lymphocytopenia documented in this encounter Care Teams Patent Searcher Relationship Specialty Start Date End Date Molina Herr MD [address] [address] [place] [address] PCP - General 01/27/10 documented as of this encounter
--- OUTSIDE RECORDS SUMMARY | 2023-10-17 15:03 | XMS_ITS | Clinical Summary ---
Author Organization [facility] [place] [address] Care Team Providers Care Algologist Name Role Phone Molina Herr MD Primary Care Provider [phone] Allergies Active Allergy Reactions Criticality Noted Date Comments Penicillins Hives Medium PAT Penicillin Allergy Risk Assessment 06/13/2023: Low risk penicillin allergy. OK to receive full dose of cefazolin, cefuroxime, or any 3rd or 4th+ generation cephalosporin. Medications Medication Sig Dispensed Refills Start Date End Date Status levothyroxine (SYNTHROID) 25 mcg tablet 25MCG = 1 Tablet(s), PO, Once daily 09/27/2007 Active atorvastatin (LIPITOR) 10 mg tablet Take 20 mg by mouth. 09/27/2007 Active multivitamins-FA- zinc (SOURCE CF) 200-10 mcg-mg Chew Take 1 tablet by mouth daily. 08/04/2010 Active omeprazole (PRILOSEC) 20 mg Capsule, Delayed Release(E.C.) Take 20 mg by mouth daily. 4 03/08/2014 Active ubiquinone (Ubiquinone) 100 mg capsule Take 200 mg by mouth once. Active acetaminophen (Tylenol) 500 mg tablet Take 2 tablets by mouth 3 times daily. 180 tablet 07/05/2023 Active acetaminophen (Tylenol) 650 mg/20.3 mL Solution Take 31.2 mLs by mouth every 6 hours as needed (mild pain (1-3)). 07/30/2023 Active pantoprazole EC (Protonix) [address] tablet Take 1 tablet by mouth daily. 30 tablet 07/31/2023 Active aspirin EC 81 mg EC (DR) tablet Take 1 tablet by mouth 2 times daily. 60 tablet 08/11/2023 Active Additional Information Patient not taking.Reported on 10/12/2023 fluconazole (Diflucan) 150 mg tablet Take 150 mg by mouth once. Active levETIRAcetam (Keppra) 500 mg tablet Take 1 tablet by mouth 2 times daily. 60 tablet 3 08/25/2023 Active senna-docusate (Pericolace) 8.6-50 mg Tablet Take 2 tablets by mouth 2 times daily. 120 tablet 08/25/2023 Active pantoprazole EC (Protonix) [address] tabletIndications :Brain tumor Take 1 tablet by mouth daily. 90 tablet 3 09/02/2023 Active dexAMETHasone (Decadron) 4 mg tabletIndications :Brain tumor Take 1 tablet by mouth daily (after breakfast). 90 tablet 09/02/2023 Active temozolomide (Temodar) 5 mg capsuleIndication s:Glioblastoma of temporal lobe Take 1 capsule (5 mg) with 1 other temozolomide prescription for 145 mg total by mouth daily. Take on an empty stomach. Call clinic before/prior to starting medication/script. 21 capsule 09/05/2023 Active temozolomide (Temodar) 140 mg capsuleIndication s:Glioblastoma of temporal lobe Take 1 capsule (140 mg) with 1 other temozolomide prescription for 145 mg total by mouth daily. Take on an empty stomach. Call clinic before/prior to starting medication/script. 21 capsule 09/05/2023 Active ondansetron (Zofran) 4 mg tablet Take 1 tablet by mouth every 8 hours as needed for Nausea. 30 tablet 09/15/2023 Active dexAMETHasone (Decadron) 1 mg tabletIndications :Brain tumor Take 3mg once daily with breakfast 60 tablet 3 09/16/2023 Active Additional Information Patient taking differently: Take 2mg once daily with breakfast, Reported on 09/30/2023 MAGNESIUM CITRATE ORAL Take 450 mg by mouth daily. Active riboflavin, Vitamin B2, (Vitamin B2) 100 mg tablet Take by mouth. Active dexAMETHasone (Decadron) 1 mg tabletIndications :Brain tumor Take 1 tablet daily in the morning with breakfast 60 tablet 10/07/2023 Active atovaquone (Mepron) 750 mg/5 mL SuspensionIndicat ions: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 use,Lymphocytopen ia,Glioblastoma of temporal lobe Take 5 mLs by mouth every 12 hours for 21 days. 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 Brain tumor 07/28/2023 Total knee replacement status 07/05/2023 Acute appendicitis 03/08/2017 Primary osteoarthritis of left knee (DJD) 2014 Osteomyelitis 08/31/2010 Discitis of lumbar region 08/21/2010 Lumbar degenerative disc disease 08/21/2010 Encounters Date Type Department Care Team Description 10/17/2023 2:00 PM EDT Hospital Encounter Hematology Oncology Level 1 Wing D at [place] [phone] Thrombocytopenia; 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 use 10/17/2023 Telephone Hematology and Oncology at [place] [phone] Malgorzata Reynoso RN Questions 10/17/2023 Orders Only Hematology and Oncology at [place] [phone] Belinda Peña PA Thrombocytopenia; 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 use 10/17/2023 Orders Only Hematology [place] [address] Belinda Peña PA Thrombocytopenia (Primary Dx); 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 use 10/17/2023 Telephone [place]ematology [place] [address] Malgorzata Reynoso RN 10/14/2023 10:12 AM EDT - 10/14/2023 11:59 PM EDT Hospital Encounter [place]ology [place] [address] Glioblastoma of temporal lobe Discharge Disposition: Home 10/13/2023 9:00 AM EDT Office Visit Speech Therapy at [place] [phone] Debra Franco, DIPPER MACHINE OPERATOR Cognitive communication disorder; Brain tumor 10/13/2023 8:32 AM EDT - 10/13/2023 11:59 PM EDT Hospital Encounter Hematology and Oncology at [place] [phone] Glioblastoma of temporal lobe; 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 use; Thrombocytopenia; Lymphocytopenia Discharge Disposition: Home 10/13/2023 Telephone Hematology and Oncology at [place] [address] Malgorzata Reynoso RN 10/13/2023 Orders Only Hematology and Oncology at [place] [phone] Belinda Peña PA Glioblastoma of temporal lobe; 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 use; Thrombocytopenia; Lymphocytopenia 10/13/2023 Travel 10/13/2023 Orders Only Hematology and Oncology at [place] [phone] Belinda Peña PA 10/12/2023 10:00 AM EDT Office Visit Hematology and Oncology at [place] [phone] Bisi Nam Adjustment disorder with anxiety 10/12/2023 8:00 AM EDT Notes Only Radiation Oncology at [place] [phone] Nicki Sharpe MD Arrived 10/12/2023 Telephone Hematology and Oncology at [place] [phone] Osiris Sarmiento Prior Authorization 10/12/2023 Travel 10/11/2023 8:45 AM EDT - 10/11/2023 11:59 PM EDT Hospital Encounter Hematology and Oncology at [place] [phone] 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 use; Lymphocytopenia; Thrombocytopenia Discharge Disposition: Home 10/11/2023 Orders Only Hematology and Oncology at [place] [phone] Belinda Peña PA Thrombocytopenia (Primary Dx); Lymphocytopenia; 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 use; Glioblastoma of temporal lobe 10/11/2023 Notes Only Hematology [place] [address] Belinda Peña PA 10/11/2023 Orders Only Hemat[place] [address] Belinda Peña PA 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 use (Primary Dx); Lymphocytopenia; Thrombocytopenia 10/11/2023 Orders Only [place] [address] Belinda Peña PA Lymphocytopenia (Primary Dx); 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 use; Glioblastoma of temporal lobe 10/11/2023 Telephone [place]ematology [place] [address] Malgorzata Reynoso RN Follow-up ; Results 10/10/2023 5:46 PM EDT - 10/10/2023 11:59 PM EDT Hospital Encounter Hematology Oncology Level [address] [place] [address] Thrombocytopenia Discharge Disposition: Home 10/10/2023 2:30 PM EDT - 10/10/2023 5:45 PM EDT Hospital Encounter Hematology [place] [address] Thrombocytopenia; 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 use Discharge Disposition: Home 10/10/2023 Telephone Hematology [place] [address] Malgorzata Reynoso, OSCAR Results 10/10/2023 Travel 10/10/2023 Orders Only Hemat[place] [address] Belinda Peña PA Thrombocytopenia (Primary Dx); 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 use 10/10/2023 Orders Only Hematology [place] [address] Belinda Peña PA Thrombocytopenia (Primary Dx); 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 use 10/10/2023 Telephone Hematology [place] [address] Belinda Peña PA 10/07/2023 8:45 AM EDT - 10/07/2023 11:59 PM EDT Hospital Encounter Hematology [place] [address] Glioblastoma of temporal lobe; 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 use Discharge Disposition: Home 10/07/2023 8:15 AM EDT Office [place] [address] Nicki Sharpe MD Brain tumor (Primary Dx) 10/07/2023 Notes Only Hematology and Oncology at [place] [phone] Navjot Grider MD 10/07/2023 Orders Only H[place]ology [place] [address] Navjot Grider MD Thrombocytopenia 10/07/2023 Orders Only [place] [address] Navjot Grider MD Thrombocytopenia 10/07/2023 Travel 10/05/2023 Travel 10/04/2023 11:00 AM EDT Office Visit Hematology [place] [address] Navjot Grider MD Glioblastoma of temporal lobe (Primary Dx); 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 use 10/04/2023 10:00 AM EDT Office [place] [address] Debra Franco, DIPPER MACHINE OPERATOR Cognitive communication disorder; Brain tumor 10/04/2023 8:31 AM EDT - 10/04/2023 11:59 PM EDT Hospital Encounter Hematology [place] [address] Glioblastoma of temporal lobe; 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 use Discharge Disposition: Home 10/04/2023 Travel 10/04/2023 Orders Only Hemat[place] [address] Belinda Peña PA 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 use (Primary Dx); Glioblastoma of temporal lobe 10/03/2023 Travel 09/30/2023 8:30 AM EDT Office [place] [address] Nicki Sharpe MD Glioblastoma of temporal lobe (Primary Dx) 09/30/2023 [place] [address] Amira Perea 09/30/2023 Travel 09/28/2023 Travel 09/27/2023 10:00 AM EDT Office Visit Speech Therapy at [place] [phone] Debra Franco, DIPPER MACHINE OPERATOR Cognitive communication disorder; Brain tumor 09/27/2023 8:49 AM EDT - 09/27/2023 11:59 PM EDT Hospital Encounter Hematology [place] [address] Glioblastoma of temporal lobe; 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 use Discharge Disposition: Home 09/27/2023 Travel 09/26/2023 Travel 09/23/2023 9:30 AM EDT Office [place] [address] Nicki Sharpe MD Brain tumor; Glioblastoma of temporal lobe 2023 2:00 PM EDT Office [place] [address] Debra Franco, DIPPER MACHINE OPERATOR Cognitive communication disorder; Brain tumor 2023 Travel 09/21/2023 9:10 AM EDT Office [place] [address] Clinic, Dr Fuchs Team Primary osteoarthritis of left knee (DJD) 09/21/2023 Travel 09/20/2023 3:15 PM EDT Office Visit Hematology [place]cology [place] [phone] Navjot Grider MD Glioblastoma of temporal lobe (Primary Dx) 09/20/2023 9:33 AM EDT - 09/20/2023 11:59 PM EDT Hospital Encounter Hematology and Oncology at [place] [phone] Glioblastoma of temporal lobe; 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 use Discharge Disposition: Home 09/20/2023 Travel 09/19/2023 1:00 PM EDT Office [place] [address] Elly Alston MD Glioblastoma of temporal lobe; Adjustment disorder, unspecified type; Palliative care encounter 09/19/2023 Travel 09/16/2023 9:30 AM EDT Office [place] [address] Nicki Sharpe MD Brain tumor (Primary Dx) 09/15/2023 Refill Hematology and Oncology at [place] [phone] Tiny Robledo RN 09/15/2023 Travel 09/14/2023 [place] [address] Yudith Jain MD 09/14/2023 Specialty Pharmacy Pharmacy at [place] [address] Nhi Loving, [facility] Refill Coordination - 28 day recurrence (temozolomide) for HemOnc 09/13/2023 9:37 AM EDT - 09/13/2023 11:59 PM EDT Hospital Encounter Hematology and Oncology at [place] [phone] Glioblastoma of temporal lobe; 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 use Discharge Disposition: Home 09/13/2023 8:00 AM EDT Office Visit Speech Therapy at [place] [phone] Debra Franco, DIPPER MACHINE OPERATOR Cognitive communication disorder; Brain tumor 09/13/2023 Travel 09/12/2023 Travel 09/09/2023 9:45 AM EDT Office Visit Radiation Oncology at [place] [phone] Nicki Sharpe MD Brain tumor 09/09/2023 Travel 09/07/2023 2:00 PM EDT Office Visit Ophthalmology at [place] [phone] Yudith Jain MD 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); Right homonymous hemianopsia; Age-related nuclear cataract, unspecified laterality 09/07/2023 Telephone Hematology [place] [address] Belinda Peña PA 09/06/2023 1:00 PM EDT Office Visit Speech Therapy at [place] [phone] Debra Franco, DIPPER MACHINE OPERATOR Cognitive communication disorder; Brain tumor 09/06/2023 10:18 AM EDT - 09/06/2023 11:59 PM EDT Hospital Encounter [place]ematology [place] [address] Glioblastoma of temporal lobe; 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 use Discharge Disposition: Home 09/06/2023 Travel 09/05/2023 1:00 PM EDT Office Visit Hematology [place] [address] Navjot Grider MD Glioblastoma of temporal lobe 09/05/2023 Travel 09/05/2023 Specialty [place] [address] Debbi Campos, [facility] 09/02/2023 10:15 AM EDT Office [place] [address] Nicki Sharpe MD Brain tumor 09/02/2023 Travel 09/01/2023 Tele[place] [address] Amira Perea 08/31/2023 1:40 PM EDT [place] [address] Tonya Plasencia PA Brain tumor 08/31/2023 Travel 08/30/2023 Orders Only Hematology and Oncology at [place] [phone] Belinda Peña PA Glioblastoma of temporal lobe (Primary Dx); 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 use 08/30/2023 Telephone Hematology [place] [address] Malgorzata Reynoso, OSCAR Chemotherapy Teaching 08/29/2023 Travel 08/29/2023 Telephone Speech Therapy at [place] [phone] Amira Perea 08/26/2023 Specialty [place] [address] Andrei Egan, [facility] Initial Clinical Assessment/Patient Education (temozolomide) for HemOnc 08/25/2023 10:20 AM EDT Laboratory Appointment Lab [address] [address] Glioblastoma of temporal lobe 08/25/2023 8:00 AM EDT Office Visit [place]ematology [place] [address] Navjot Grider MD Glioblastoma of temporal lobe (Primary Dx) 08/25/2023 Telephone [place] [address] Flora Llamas Prior Authorization (Molecular cancer testing CPTs 56498, 49578 and 33589 are covered benefits. ) 08/25/2023 Specialty [place] [address] Orlin Chavez, [employer]UGER 08/24/2023 8:00 AM EDT Office [place] [address] Melanie Braun, DIPPER MACHINE OPERATOR Cognitive communication disorder (Primary Dx) 08/24/2023 Travel 08/22/2023 Travel 08/19/2023 1:00 PM EDT Office Visit Palliative Medicine at [place] [address] Elly Alston MD Brain tumor; Palliative care encounter 08/19/2023 11:00 AM EDT Ancillary Appointment Radiation Oncology at [place] [address] Nicki Sharpe MD Brain tumor 08/19/2023 7:39 AM EDT - 08/19/2023 11:59 PM EDT Hospital Encounter Radiology at [place] [address] iNcki Sharpe MD Brain tumor Discharge Disposition: Home 08/19/2023 Travel 08/17/2023 Travel 08/12/2023 8:30 AM EDT Office [place] [address] Nicki Sharpe MD Brain tumor (Primary Dx) 08/12/2023 Travel 08/09/2023 Travel 08/09/2023 Telephone Speech Therapy at [place] [address] Amira Perea 08/08/2023 Telephone Neurosurgery at [place] [address] Michael Lundberg MD Appointment 08/04/2023 12:34 PM EDT Anesthesia [place] [address] Deanna Barkley MD Egle, Benjamin H, DO 08/04/2023 10:15 AM EDT - 08/04/2023 2:30 PM EDT Surgery Main Operating Room [place] [phone] Rolly Dunlap MD @CRANI, FOR TUMOR, SUPRATENTORIAL, NOT MENINGIOMA (WRVU 30.83) 08/04/2023 8:42 AM EDT - 08/07/2023 4:11 PM EDT Hospital Encounter Neurosciences and ENT Unit Level 5 [place] [address] Rolly Dunlap MD Brain tumor Discharge Disposition: Home 08/04/2023 Notes [place] [address] Debra Chang 08/03/2023 10:50 AM EDT Office [place] [address] Clinic, Dr Fuchs Team Status post total right knee replacement 08/03/2023 9:16 AM EDT - 08/03/2023 11:59 PM EDT Hospital Encounter XRay at [address] [place] [address] Primary osteoarthritis of right knee; Right leg pain Discharge Disposition: Home 08/03/2023 Travel 08/03/2023 [place] [address] Jade Lake, RN 08/02/2023 [place] [address] Debra Ospina, RN 07/28/2023 10:47 PM EDT - 07/30/2023 10:49 AM EDT Hospital Encounter Neurosciences and ENT Unit Level [address] [place] [address] Rolly Dunlap MD Brain tumor Discharge Disposition: Home 07/28/2023 6:54 PM EDT - 07/28/2023 10:29 PM EDT Emergency Emergency Services at [address] [address] Vito Vidales MD Mass of brain Discharge Disposition: Recreation Facilities Supervisor [facility] 07/28/2023 5:34 PM EDT - 07/28/2023 6:53 PM EDT Hospital Encounter Radiology [place] [address] Molina Herr MD Delirium Discharge Disposition: Home 07/28/2023 Travel 07/27/2023 Travel 07/25/2023 7:04 PM EDT - 07/25/2023 11:59 PM EDT Hospital En[place] [address] Discharge Disposition: Home 07/25/2023 [place] [address] Laisha Peters MD 07/25/2023 Community Orders External [phone] Molina Herr MD Delirium 07/21/2023 [place] [address] Clinic, Dr Fuchs Team Dental Problem from Last 3 Months Immunizations Name Administration Dates Next Due Covid-19 (Moderna SPIKEVAX 2 023) Vaccine 50mcg( 12yrs+) 12/16/2022 Covid-19 (Pfizer), Rodriguez Cap Bivalent 30mcg (12Yrs+) 11/24/2021 Covid-19 (Pfizer), Purple Ca p Monovalent Vaccine (12yrs+) 12/24/2020,04/17/2020,03/25/2020 Hepatitis B Unspecified Formulation 12/04/2012,0 06/19/2012,05/16/2012 Influenza (Fluzone HD) Quadr ivalent High Dose, Preservative Free 11/17/2021,11/25/2020,11/29/2019 Influenza (Fluzone HD) Trivalent High Dose 11/17,11/28/2015 Influenza (Novel [id number]) Injectable 04/09/2009 Influenza PF, Split 12/21/2014,11/29/2012,2011 Influenza Quadrivalent (FluAd) Adjuvanted 2022 Influenza Quadrivalent, Preservative Free 2018,11/23/2017 Influenza Trivalent w/Preservative 11/28/2013 Influenza Vaccine, Whole 01/07/2008 Tuberculin Skin Test, PPD 03/29/2012 Zoster (ShingRix), Recombinant 05/15/2020,2019 Family History Medical History Relation Comments Cancer Brother Glaucoma Neg Hx Macular Degeneration Neg Hx Retinal Detachment Neg Hx Relation Status Comments Brother Social History Tobacco Use Types Packs/Day Years Used Date Smoking Tobacco: Never Smokeless Tobacco: Never Tobacco Cessation:Counseling Given: Not Answered Alcohol Use Standard Drinks/Week Comments Not Currently 0 (1 standard drink = 0.6 oz pur e alcohol) B1300 Health Literacy Answer Date Recor ded How often do you need to hav e someone help you when you read instructions, pamphlets, or other written material from your doctor or pharmacy? Sometimes 08/22/2023 [facility] Utilities Answer Date Recorded In the [...] any time in the past 12 [facility], were you homeless or living in a residential (including now)? No 08/22/2023 [facility] IPV Inpatient [...] PM EST Sexual Orientation Not on file Last Filed Vital Signs Vital Sign Reading Time Taken Comments Blood Pressure 111/76 10/14/2023 10:52 AM EDT Pulse 68 10/14/2023 10:52 AM EDT Temperature 36.1 ??C (96.9 ??F) 10/14/2023 1 0:52 AM EDT Respiratory Rate 16 10/14/2023 10:5 2 AM EDT Oxygen Saturation 99% 10/14/2023 10: 52 AM EDT Inhaled Oxygen Concentration - - Weight 81.5 kg (179 lb 10.8 oz) 024 10:01 AM EDT Height 172.2 cm (5' 7.8) 10/12/2023 10 :01 AM EDT Body Mass Index 27.48 10/12/2023 10:01 AM EDT Plan of Treatment Upcoming Encounters Date Type Department Care Team (Late st Contact Info) Description 10/27/2023 11:15 AM EDT Office [place] [address] Elly Alston MD [facility] HOSPICE AND [place] [address] 10/27/2023 1:00 PM EDT Office [place] [address] Debra Franco, DIPPER MACHINE OPERATOR 11/03/2023 2:00 PM EDT Office [place] [address] Debra Franco, DIPPER MACHINE OPERATOR 11/08/2023 2:30 PM [place] [address] Navjot Grider MD [facility] DR HEMATOLOGY [place] [address] 11/09/2023 1:45 PM EDT Office Visit Hematology and Oncology at [place] [address] Isabell Jacob MD [facility] [place] [address] 11/11/2023 10:30 AM EDT Office Visit Radiation Oncology at [place] [address] Nicki Sharpe MD [facility] [place] [address] 11/15/2023 10:00 AM EDT Office Visit Speech Therapy at [place] [phone] Debra Franco, DIPPER MACHINE OPERATOR 11/16/2023 9:00 AM EDT Office Visit Hematology and Oncology at [place] [phone] Bisi Nam 11/22/2023 10:00 AM EDT Office Visit Speech Therapy at [place] [phone] Debra Franco, DIPPER MACHINE OPERATOR 11/30/2023 9:00 AM EDT Office Visit Hematology [place] [address] Bisi Nam 12/14/2023 9:00 AM EDT Office Visit [place]ematology [place] [address] Bisi Nam 12/28/2023 9:00 AM EDT Office Visit [place]ematology [place] [address] [place] Namth W Health Maintenance Due Date Last Done Comments CT Colonography 1942 FIT DNA 1942 FIT 1942 Sigmoidoscopy 1942 Tdap adult 1961 Tetanus vaccine 1961 Pneumoccocal Vaccine: 65+ (1 of 1 - PCV) 09/23/2007 Covid-19 Vaccine (6 - 2022-2 4 season) 2023 12/16/2022, 11/24/2021, 12/24/2020, Additional history exists Influenza (Flu) vaccine (1 o f 1 - Influenza standard series) 11/06/2023 11/24/2022, 11/17/2021, 11/25/2020, Additional history exists Colonoscopy 01/21/2028 01/20/2023, 01/05, 01/12/2018, Additional history exists Colorectal Cancer Screening 01/21/2028 Sigmoidoscopy (10 year) with FIT yearly 01/20/2033 01/20/2023, 01/20/2023, 01/12/2018, Additional history exists Zoster vaccine Completed 05/15/2020, 01/23/2020 Goals Goal Patient Goal Type Associated Problems Recent Progress Patient-Stated? Author Patient's specific desired goal: Patient Facing Action Plan Andrei Lee, [facility] Note: Goal(s): maintain quality of life as much as possible Measured by: quality of life scale, ability to participate in activities which he enjoys and needs to do Time-frame: to be assessed at approximately the one year point by pharmacy, or sooner if patient asks to discuss Medical Devices Implanted Type Area Honing Machine Operator Tool Device Identifier Shelf Expiration Date Model / Serial / Lot Cement Bone Medium Viscosity Polymethyl Methacrylate ([id number]) - [id number] Implanted:Qty: 1 on 07/05/2023 by Ernie Fuchs MD at [facility] IMPLANTS Right: Knee [employer] [place] [id number] 01/04/2026 [id number] / / [id number] Comp Femoral Knee Sz 7 Right Edi Cr Cocr ([id number]) (Autoreq) - [id number] Implanted:Qty: 1 on 07/05/2023 by Ernie Fuchs MD at [facility] IMPLANTS Right: Knee [employer] - MERI MICHELLE [id number] 05/04/2033 [id number] / / [id number] Comp Patellar Knee 38mm Edi Medialized Domed Poly ([id number]) (Autoreq) - [id number] Implanted:Qty: 1 on 07/05/2023 by Ernie Fuchs MD at [facility] IMPLANTS Right: Knee [employer] - MERI MICHELLE [id number] 04/06/2025 [id number] / / [id number] Comp Tibial Knee 5mm Size 7 Edi Cr Poly ([id number]) (Autoreq) - [id number] Implanted:Qty: 1 on 07/05/2023 by Ernie Fuchs MD at [facility] IMPLANTS Right: Knee [employer] - MERI MICHELLE 04/06/2025 [id number] / / [id number] Graft Cranial Dural 3x3in Square Bovine Duragen ([id number]) - [id number] Implanted:Qty: 1 on 08/04/2023 by Rolly Dunlap MD at [facility] IMPLANTS Left: Brain [employer] - [id number] / / Plate Cmf 0.4x12mm 2 Hole Low Profile Ti Merritt Neuro Iii ([id number]) - [id number] Implanted:Qty: 3 on 08/04/2023 by Rolly Dunlap MD at [facility] IMPLANTS Left: Cranial OLGA [facility] - OLGA [id number] / / Screw Cmf 1.5x4mm Cranial Self Drilling Ti ([id number]) - [id number] Implanted:Qty: 6 on 08/04/2023 by Rolly Dunlap MD at [facility] IMPLANTS Left: Cranial OLGA [facility] OLGA [id number] / / Procedures Procedure Name Priority Date/Time Associated Diagnosis Comments EXTERNAL LAB CBC CMP THYROID RESULTS PANEL Routine 10/17/2023 10:40 AM EDT CBC (WITH DIFF) Routine 10/13/2023 8:37 AM EDT Glioblastoma of temporal lobe 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 use CBC (WITH DIFF) STAT 10/11/2023 11:44 AM EDT 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 use Lymphocytopenia Thrombocytopenia HC TR PSLD PLT, PHERESIS, IRR Routine 10/11/2023 6:49 AM EDT Thrombocytopenia TRANSFUSE 1 UNIT PLATELET PHERESIS Routine 10/10/2023 6:09 PM EDT Thrombocytopenia TYPE AND SCREEN ([facility]/CGP/RUBINA) Routine 10/10/2023 2:56 PM EDT Thrombocytopenia CBC (WITH DIFF) STAT 10/10/2023 2:56 PM EDT Thrombocytopenia 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 use LAB SCAN 10/10/2023 12:00 AM EDT DIFFERENTIAL, AUTOMATED Routine 10/07/2023 9:40 AM EDT Glioblastoma of temporal lobe 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 use HEMOGRAM Routine 10/07/2023 9:40 AM EDT Glioblastoma of temporal lobe 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 use COMPREHENSIVE METABOLIC PANEL Routine 10/07/2023 9:40 AM EDT Glioblastoma of temporal lobe CBC (WITH DIFF) Routine 10/07/2023 9:40 AM EDT Glioblastoma of temporal lobe 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 use DIFFERENTIAL, AUTOMATED Routine 10/04/2023 8:40 AM EDT Glioblastoma of temporal lobe 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 use HEMOGRAM Routine 10/04/2023 8:40 AM EDT Glioblastoma of temporal lobe 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 use MAGNESIUM Routine 10/04/2023 8:40 AM EDT Glioblastoma of temporal lobe CBC (WITH DIFF) Routine 10/04/2023 8:40 AM EDT Glioblastoma of temporal lobe 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 use PHOSPHORUS Routine 10/04/2023 8:40 AM EDT Glioblastoma of temporal lobe DIFFERENTIAL, AUTOMATED Routine 09/27/2023 9:02 AM EDT Glioblastoma of temporal lobe 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 use HEMOGRAM Routine 09/27/2023 9:02 AM EDT Glioblastoma of temporal lobe 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 use CBC (WITH DIFF) Routine 09/27/2023 9:02 AM EDT Glioblastoma of temporal lobe 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 use DIFFERENTIAL, AUTOMATED Routine 09/20/2023 9:41 AM EDT Glioblastoma of temporal lobe 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 use HEMOGRAM Routine 09/20/2023 9:41 AM EDT Glioblastoma of temporal lobe 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 use COMPREHENSIVE METABOLIC PANEL Routine 09/20/2023 9:41 AM EDT Glioblastoma of temporal lobe CBC (WITH DIFF) Routine 09/20/2023 9:41 AM EDT Glioblastoma of temporal lobe 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 use DIFFERENTIAL, AUTOMATED Routine 09/13/2023 9:46 AM EDT Glioblastoma of temporal lobe 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 use HEMOGRAM Routine 09/13/2023 9:46 AM EDT Glioblastoma of temporal lobe 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 use CBC (WITH DIFF) Routine 09/13/2023 9:46 AM EDT Glioblastoma of temporal lobe 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 use FUNDUS PHOTOS - OU- BOTH EYES Routine 09/12/2023 1:33 PM EDT 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) AUTOMATED VISUAL FIELD - EXTENDED - OU- BOTH EYES Routine 09/12/2023 1:33 PM EDT Right homonymous hemianopsia OCT OPTIC NERVE - OU - BOTH EYES Routine 09/12/2023 1:32 PM EDT 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) DIFFERENTIAL, AUTOMATED Routine 09/06/2023 10:32 AM EDT Glioblastoma of temporal lobe 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 use HEMOGRAM Routine 09/06/2023 10:32 AM EDT Glioblastoma of temporal lobe 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 use COMPREHENSIVE METABOLIC PANEL Routine 09/06/2023 10:32 AM EDT Glioblastoma of temporal lobe CBC (WITH DIFF) Routine 09/06/2023 10:32 AM EDT Glioblastoma of temporal lobe 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 use 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 Routine 08/26/2023 12:47 PM EDT Cognitive communication disorder DIFFERENTIAL, AUTOMATED Routine 08/25/2023 10:07 AM EDT Glioblastoma of temporal lobe HEMOGRAM Routine 08/25/2023 10:07 AM EDT Glioblastoma of temporal lobe CBC (WITH DIFF) Routine 08/25/2023 10:07 AM EDT Glioblastoma of temporal lobe COMPREHENSIVE METABOLIC PANEL Routine 08/25/2023 10:07 AM EDT Glioblastoma of temporal lobe HEPATITIS B CORE ANTIBODY, IGM Routine 08/25/2023 10:07 AM EDT Glioblastoma of temporal lobe HEPATITIS B SURFACE ANTIBODY Routine 08/25/2023 10:07 AM EDT Glioblastoma of temporal lobe HEPATITIS B SURFACE ANTIGEN Routine 08/25/2023 10:07 AM EDT Glioblastoma of temporal lobe CT RAD ONC NEURO INTERP ONLY Routine 08/19/2023 11:35 AM EDT Malignant neoplasm of brain and other contiguous part of central nervous system MRI BRAIN WWO CONTRAST (GENERIC) Routine 08/19/2023 8:50 AM EDT Brain tumor DIFFERENTIAL, AUTOMATED Routine 08/07/2023 5:40 AM EDT HEMOGRAM Routine 08/07/2023 5:40 AM EDT PHOSPHORUS Routine 08/07/2023 5:40 AM EDT MAGNESIUM Routine 08/07/2023 5:40 AM EDT CBC (WITH DIFF) Routine 08/07/2023 5:40 AM EDT BASIC METABOLIC PANEL Routine 08/07/2023 5:40 AM EDT EEG CONTINUOUS MONITORING INPATIENT Routine 08/06/2023 6:05 PM EDT DIFFERENTIAL, AUTOMATED Routine 08/06/2023 5:33 AM EDT HEMOGRAM Routine 08/06/2023 5:33 AM EDT PHOSPHORUS Routine 08/06/2023 5:33 AM EDT MAGNESIUM Routine 08/06/2023 5:33 AM EDT CBC (WITH DIFF) Routine 08/06/2023 5:33 AM EDT BASIC METABOLIC PANEL Routine 08/06/2023 5:33 AM EDT MRI BRAIN WWO CONTRAST (GENERIC) Routine 08/05/2023 9:39 PM EDT SCAN DOC: TELEMETRY STRIPS 08/05/2023 7:31 AM EDT DIFFERENTIAL, AUTOMATED Routine 08/05/2023 1:13 AM EDT HEMOGRAM Routine 08/05/2023 1:13 AM EDT PHOSPHORUS Routine 08/05/2023 1:13 AM EDT MAGNESIUM Routine 08/05/2023 1:13 AM EDT CBC (WITH DIFF) Routine 08/05/2023 1:13 AM EDT BASIC METABOLIC PANEL Routine 08/05/2023 1:13 AM EDT SCAN DOC: TELEMETRY STRIPS 08/04/2023 9:56 PM EDT POCT GLUCOSE Routine 08/04/2023 4:30 PM EDT SPECIMEN TO PATHOLOGY Routine 08/04/2023 2:06 PM EDT SPECIMEN TO PATHOLOGY Routine 08/04/2023 2:06 PM EDT SPECIMEN TO PATHOLOGY STAT 08/04/2023 2:02 PM EDT SOLID TUMOR NGS PANEL Routine 08/04/2023 2:01 PM EDT SURGICAL PATHOLOGY REPORT Routine 08/04/2023 2:01 PM EDT MISC TILLEY TEST-TILLEY Routine 08/04/2023 2 :01 PM EDT BLOOD GAS VENOUS POC Routine 08/04/2023 1:40 PM EDT MODIFIER,STEALTH 2,KINEVO Yes 08/04/2023 12:33 PM EDT left temp tumor Stereotactic Cptr Asstd Px Cranial, Intradural ([id number]) Yes 08/04/2023 12:33 PM EDT left temp tumor Microsurg Techniques, Req Oper Microscope ([id number]) Yes 08/04/2023 12:33 PM EDT 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 08/04/2023 12:33 PM EDT left temp tumor STEREOTACTIC COMPUTER-ASSTD NAVIGATIONAL CRANIAL INTRADURAL Routine 08/04/2023 8:47 AM EDT MICROSCOPE USE Routine 08/04/2023 8:47 AM EDT CRANI, FOR TUMOR, SUPRATENTORIAL, NOT MENINGIOMA Routine 08/04/2023 8:47 AM EDT IMPLANTABLE DEVICES SCAN 08/04/2023 12:00 AM EDT XR KNEE STANDING ALIGNMENT AP LAT SKYLINE RIGHT Routine 08/03/2023 9:39 AM EDT Primary osteoarthritis of right knee Right leg pain MRI BRAIN WO CONTRAST Routine 07/30/2023 9:[address] CHEST ABDOMEN PELVIS W CONTRAST (GENERIC) Routine 07/29/2023 1:31 PM EDT DIFFERENTIAL, AUTOMATED Routine 07/29/2023 1:25 AM EDT HEMOGRAM Routine 07/29/2023 1:25 AM EDT HC PARTIAL THROMBOPLASTIN TIME Routine 07/29/2023 1:25 AM EDT PROTHROMBIN TIME Routine 07/29/2023 1:25 AM EDT BASIC METABOLIC PANEL Routine 07/29/2023 1:25 AM EDT CBC (WITH DIFF) Routine 07/29/2023 1:25 AM EDT DIFFERENTIAL, AUTOMATED STAT 07/28/2023 7:25 PM EDT HEMOGRAM STAT 07/28/2023 7:25 PM EDT BASIC METABOLIC PANEL STAT 07/28/2023 7:25 PM EDT CBC (WITH DIFF) STAT 07/28/2023 7:25 PM EDT MRI BRAIN WWO CONTRAST (GENERIC) STAT 07/28/2023 6:50 PM EDT Delirium CRP, ACUTE INFLAMMATION Routine 07/25/2023 4:23 PM EDT GOLD TUBE HOLD Routine 07/25/2023 4:23 PM EDT DIFFERENTIAL, AUTOMATED Routine 07/25/2023 4:23 PM EDT HEMOGRAM Routine 07/25/2023 4:23 PM EDT SEDIMENTATION RATE Routine 07/25/2023 4: 23 PM EDT GOLD TUBE HOLD Routine 07/25/2023 4:23 PM EDT URINALYSIS WITH REFLEX CULTURE Routine 07/25/2023 4:23 PM EDT COMPREHENSIVE METABOLIC PANEL Routine 07/25/2023 4:23 PM EDT COLONOSCOPY Routine 01/20/2023 3:03 PM EST from Last 3 Months or Most Recently Relevant to Health Maintenance Results * (ABNORMAL) CBC / CMP / Thyroid External Results (10/17/2023 10:40 AM EDT) WBC - External 1.73(L) EXTER NAL FACILITY RBC - External 4.03(L) [facility] Hemoglobin - External 11.3(L) EXTERNAL FACILITY Hematocrit - External 35.9(L) EX[facility]NAL FACILITY Platelets - External 28(L) EX[facility]ACILITY Blood 10/17/2023 10:4 0 AM EDT Historical Provider MD EXTERNAL LAB NONA CEE EXTERNAL FACILITY * (ABNORMAL) CBC (with Diff) (10/13/2023 8:37 AM EDT) Only the most recent of3 resultswithin the time period is included. Pathologist [facility] White Blood Cell 3.30(L) 4.00 - 9.50 x10(3)/mc L 10/13/2023 8:[address] [facility] Red Blood Cell 3.92(L) 4.58 - 5.54 x10(6)/mc L 10/13/2023 8:[address] [facility] Hemoglobin 11.1(L) 13.7 - 16.5 g/dL 10/13/2023 8:[address] [facility] Hematocrit 34.9(L) 40.5 - 48.5 % 10/13/2023 8:[address] [facility] Mean Cell Volume 89.0 82.9 - 93.1 fL 10/13/2023 8:[address] [facility] Mean Cell Hemoglobin 28.3 27.5 - 32.1 pg 10/13/2023 8:[address] [facility] Mean Cell Hemoglobin Concentration 31.8(L) 32.0 - 35.7 g/dL 10/13/2023 8:[address] [facility] Platelet 41(L) 145 - 357 x10(3)/mc L 10/13/2023 8:52 AM [facility] Mean Platelet Volume 9.8 7.6 - 12.9 fL 10/13/2023 8:52 AM [facility] RDW Standard Deviation 56.1(H) 36.0 - 45.0 fL 10/13/2023 8:52 AM [facility] RDW coefficient of variation 17.6(H) 11.4 - 13.8 % 10/13/2023 8:52 AM [facility] NRBC% auto 0.0 % 10/13/2023 8:52 AM [facility] NRBC Absolute 0.00 0.00 - 0.00 x10(3)/mc L 10/13/2023 8:52 AM [facility] Neutrophil % 68.2 % 10/13/2023 8:52 AM [facility] Neutrophil Absolute 2.25 1.70 - 6.10 x10(3)/mc L 10/13/2023 8:52 AM [facility] Lymph % 20.6 % 10/13/2023 8:52 AM [facility] Lymph Absolute 0.68(L) 0.90 - 3.20 x10(3)/mc L 10/13/2023 8:52 AM [facility] Monocyte % 5.8 % 10/13/2023 8:52 AM [facility] Monocyte Absolute 0.19(L) 0.30 - 0.90 x10(3)/mc L 10/13/2023 8:52 AM [facility] Eos % 4.8 % 10/13/2023 8:52 AM [facility] Eos Absolute 0.16 0.00 - 0.40 x10(3)/mc L 10/13/2023 8:52 AM [facility] Basophil % 0.3 % 10/13/2023 8:[address] [facility] Baso Absolute 0.01 0.00 - 0.10 x10(3)/mc L 10/13/2023 8:[address] [facility] Immature Gran % 0.3 % 8:[address] [facility] Immature Gran Absolute 0.01 0.00 - 0.04 x10(3)/mc L 10/13/2023 8:[address] [facility] Blood VENOUS BLOOD SPECIMEN / Unknown Venipuncture / Unknown 10/13/2023 8:37 AM EDT 10/13/2023 8:37 AM EDT Navjot Grider MD HEMATOLOGY ORDERABLE S [facility] [place] [address] * Prepare Platelets, Apheresis (10/11/2023 6:49 AM EDT) Status Information Transfused [facility] Product Identification [id number] [facility] Unit [facility] [id number] [facility] Product Code [id number] [facility] Unit Blood Type APOS [facility] Specimen Expiration Date [facility] Volulme 264 [facility] Issue Date / Time [id number] [facility] Blood VENOUS BLOOD SPECIMEN / Unknown 10/10/2023 5:46 PM EDT Navjot Grider MD BLOOD BANK PRODUCT O RDERABLES Performing Organization Address City/[facility]/ZIP Co de Phone Number [facility] [place] [place] [address] * Transfuse 1 unit platelets, apheresis (10/10/2023 7:31 PM EDT) Navjot Grider MD NURSING TREATMENT OR DERABLES - BLOOD ADMIN * Type and screen ([facility]/CGP/RUBINA) (10/10/2023 2:56 PM EDT) [facility] ABORH Type A POSITIVE 10/10/2023 4:59 PM EDT [facility] PATIENT HISTORY Unneccessary 10/10/2023 4:59 PM EDT [facility] Expires at [id number] on: 10-10-2023 10/10/2023 4:59 PM EDT [facility] ANTIBODY SCREEN AUTOMATED Negative 10/10/2023 4:59 PM EDT [facility] T&S only valid at [facility] 10/10/2023 4:59 PM EDT [facility] Blood VENOUS BLOOD SPECIMEN / Unknown IP Care Team Draw / Unknown 10/10/2023 2:56 PM EDT 10/10/2023 2:56 PM EDT Narrative [facility] - 10/10/2023 4:59 PM EDT This Type and Screen result is only valid at the [facility] Navjot Grider MD BLOOD BANK LAB ORDER JESSICA [facility] [place] [place] [address] * Scan Doc: Lab (10/10/2023 12:00 AM EDT) Narrative 10/10/2023 12:00 AM EDT Ordered by an unspecified provider. Scanning Provider MEDIA MGR SCAN EXT O RDR/RSLT * (ABNORMAL) Hemogram (10/07/2023 9:40 AM EDT) Only the most recent of13 resultswithin the time period is included. [facility] White Blood Cell 7.0 4.0 - 9.5 x10(3)/mc L [facility] Red Blood Cell 4.08(L) 4.58 - 5.54 x10(6)/mc L [facility] Hemoglobin 11.6(L) 13.7 - 16.5 g/dL [facility] Hematocrit 36.0(L) 40.5 - 48.5 % [facility] Mean Cell Volume 88.2 82.9 - 93.[address] [facility] Mean Cell Hemoglobin 28.4 27.5 - 32.[address] [facility] Mean Cell Hemoglobin Concentration 32.2 32.0 - 35.7 g/dL [facility] Platelet 24(L) 145 - 357 x10(3)/mc L [facility] RDW Standard Deviation 55.0(H) 36.0 - 45.[address] [facility] RDW coefficient of variation 17.4(H) 11.4 - 13.8 % [facility] Mean Platelet Volume 8.9 7.6 - 12.[address] [facility] NRBC% auto 0.0 % [facility] NRBC Absolute 0.000 0.000 - 0.000 x10(3)/mc L [facility] Blood 10/07/2023 9:40 AM EDT 10/07/2023 9:49 AM EDT Narrative Resulting Agency Comment Spec In Lab Belinda ARRINGTON HEMATOLOGY ORDERABLE S [facility] [place] [address] * (ABNORMAL) Differential, Automated (10/07/2023 9:40 AM EDT) Only the most recent of13 resultswithin the time period is included. Neutrophil % 84.2 % [facility] Neutrophil Absolute 5.85 1.70 - 6.10 x10(3)/mc L [facility] Lymph % 7.1 % [facility] Lymphocytes Abs 0.5(L) 0.9 - 3.2 x10(3)/mc L [facility] Monocyte % 5.3 % [facility] Monocyte Abs 0.4 0.3 - 0.9 x10(3)/mc L [facility] Eos % 2.7 % [facility] Eosinophils Abs 0.2 0.0 - 0.4 x10(3)/ L [facility] Basophil % 0.3 % [facility] Baso Absolute 0.0 0.0 - 0.1 x10(3)/[facility] Immature Gran % 0.40 % [facility] Comment: Immature granulocytes(IG's)percentage and absolute count will include metamyelocytes, myelocytes, and promyelocytes. Blood smears from CBCs yielding IG's will be scanned manually for concordance. If this scan disagrees with the automated IG or if promyelocytes are noted, a manual differential will be performed. Immature Gran Absolute 0.03 0.00 - 0.04 x10(3)/[facility] Blood 10/07/2023 9:40 AM EDT 10/07/2023 9:49 AM EDT Narrative Resulting Agency Comment Spec In Lab Belinda ARRINGTON HEMATOLOGY ORDERABLE S [facility] [place] [address] * Comprehensive metabolic panel (non-fasting) (10/07/2023 9:40 AM EDT) Only the most recent of5 resultswithin the time period is included. Glucose 102 65 - 199 mg/dL [facility] Comment:Diabetes: >=200 mg/d L plus symptoms Blood Urea Nitrogen 20 10 - 20 mg/dL [facility] Creatinine 1.20 0.80 - 1.50 mg/dL [facility] Sodium 139 135 - 145 mmol/L [facility] Potassium 4.6 3.5 - 5.0 mmol/L [facility] Comment: Please note: ??Patients with WBC >100,000 may have falsely elevated Potassium levels. ??For accurate Potassium quantification in these patients send serum separator tube (gold top) for subsequent determinations. ??Contact the Clinical Chemistry Laboratory if there are any questions. Chloride 104 98 - 107 mmol/L [facility] Carbon Dioxide 27 22 - 31 mmol/L [facility] Anion Gap 8 5 - 15 mmol/L [facility] Calcium 9.7 8.5 - 10.5 mg/dL [facility] Protein, Total 6.7 6.1 - 8.0 g/dL [facility] Albumin 4.0 3.2 - 5.2 g/dL [facility] Aspartate Aminotransferase 21 0 - 39 unit/L [facility] Alanine Aminotransferase 25 0 - 55 unit/L [facility] Alkaline Phosphatase 49 40 - 130 unit/L [facility] Bilirubin, Total 0.5 0.2 - 1.3 mg/dL [facility] Est Glomerular Filtration Rate 61 >=60 mL/min/1. 73 m?? [facility] Comment: This patient's estimated GFR was calculated using the 2020 CKD-EPI equation. The estimated GFR can vary from the measured GFR by up to 30% in the absence of rapidly changing kidney function. Assessment of the estimated GFR is not appropriate when creatinine concentrations are rapidly changing. For clinical situations in which a more precise estimate of GFR is necessary, consider alternative methods of GFR estimation such as a 24-hour urine creatinine clearance. Assignment of CKD stage 1-5 for patients with an eGFR near the transition point between stages may be based on clinical assessment of muscle mass and symptoms in addition to eGFR. Blood 10/07/2023 9:40 AM EDT 10/07/2023 9:49 AM EDT Narrative Resulting Agency Comment Spec In Lab Navjot Grider MD CHEMISTRY ORDERABLES [facility] [place] [address] * Phosphorus (10/04/2023 8:40 AM EDT) Only the most recent of4 resultswithin the time period is included. Phosphorus 4.1 2.5 - 4.5 mg/dL [facility] Blood 10/04/2023 8:40 AM EDT 10/04/2023 8:44 AM EDT Narrative Resulting Agency Comment Spec In Lab Nicki Sharpe MD CHEMISTRY ORDERABLES Performing Organization Address City/[facility] Co de Phone Number [facility] [place] [address] * Magnesium (10/04/2023 8:40 AM EDT) Only the most recent of4 resultswithin the time period is included. Magnesium 0.95 0.69 - 1.07 mmol/L [facility] Blood 10/04/2023 8:40 AM EDT 10/04/2023 8:44 AM EDT Narrative Resulting Agency Comment Spec In Lab iNcki Sharpe MD CHEMISTRY ORDERABLES Performing Organization Address [facility] de Phone Number [facility] [place] [address] * Fundus Photos - OU - Both Eyes (09/12/2023 1:33 PM EDT) Anatomical Region Laterality Modality Other Narrative 09/12/2023 1:33 PM EDT Right Eye Disc findings include normal observations. Left Eye Disc findings include normal observations. Notes [place] [facility] Yudith Jain MD OPHTHALMOLOGY SE RVICES ORDERABLES * Automated Visual Field - Extended - OU - Both Eyes (09/12/2023 1:33 PM EDT) Anatomical Region Laterality Modality Other Narrative 09/12/2023 1:33 PM EDT Right Eye Threshold was 24-2. Strategy was ALENA. Left Eye Threshold was 24-2. Strategy was ALENA. Notes Right superior homonymous hemianopsia Yudith Jain MD OPHTHALMOLOGY SE RVICES ORDERABLES * Oct Optic Nerve - OU - Both Eyes (09/12/2023 1:32 PM EDT) Anatomical Region Laterality Modality Other Narrative 09/12/2023 1:32 PM EDT Right Eye Quality was good. Left Eye Quality was good. Notes [place] OCT OD: ??Average RNFL: 85, classification = wnl OS: ??Average RNFL: 87, classification = wnl Implication: No thinning or swelling OU. Yudith Jain MD OPHTHALMOLOGY SE RVICES ORDERABLES * Hepatitis B Core Antibody, IgM (08/25/2023 10:07 AM EDT) Hepatitis B Core IgM Negative Negative [facility] Blood 08/25/2023 10:0 7 AM EDT 08/25/2023 10:13 AM EDT Narrative Resulting Agency Comment Spec In Lab Navjot Grider MD CHEMISTRY ORDERABLES Performing Organization Address City/[facility]/ZIP Co de Phone Number [facility] [place] [address] * Hepatitis B Surface Antibody (08/25/2023 10:07 AM EDT) Hepatitis B Surface Antibody, Quantitative <3.5 IU/L [facility] Comment: HepB Surface Ab Quant: Unvaccinated: < 8.5 IU/L Vaccinated: >= 11.5 IU/L Hepatitis B Surface Antibody Negative [facility] Comment: Patient is presumed to be not vaccinated or immune to HBV infection. Expected Results: Vaccinated: Positive Unvaccinated: Negative Blood 08/25/2023 10:0 7 AM EDT 08/25/2023 10:13 AM EDT Narrative Resulting Agency Comment Spec In Lab Navjot Grider MD CHEMISTRY ORDERABLES Performing Organization Address City/[facility]/ZIP Co de Phone Number [facility] [place] [address] * Hepatitis B Surface Antigen (08/25/2023 10:07 AM EDT) Hepatitis B Surface Antigen Negative Negative [facility] Blood 08/25/2023 10:0 7 AM EDT 08/25/2023 10:13 AM EDT Narrative Resulting Agency Comment Spec In Lab Navjot Grider MD CHEMISTRY ORDERABLES [facility] [place] [address] * CT Rad Onc Neuro Interp Only (08/19/2023 11:35 AM EDT) WORKSTATION ID [id number] RAD Anatomical Region Laterality Modality Head Computed Tomogra phy Impressions 08/21/2023 12:01 PM EDT Exam for treatment planning. Left temporal resection cavity. Thank you for letting us participate in the care of this patient. ??If you are a health care provider and have any questions regarding this report, please contact the number below. ??For patients who have questions please contact the health care center manager that requested your imaging first. ? Electronically signed by: Alexandre Wei MD, [facility] ([phone]), at 08/21/2023 12:01 PM Narrative 08/21/2023 12:01 PM EDT EXAMINATION: CT RAD ONC NEURO INTERP ONLY CLINICAL HISTORY: glioblastoma ??with excellent performance status s/p gross total resection receiving 60 Gy in 30 fractions with concurrent temozolomide TECHNIQUE: CT of the head and neck performed following intravenous administration contrast for radiation treatment planning. COMPARISON: MR 08/19/2023 FINDINGS: Left temporal resection cavity with a small amount of enhancement at the margins is unchanged compared to the MR of the same day. There is no new mass. No adenopathy in the neck. No other abnormal enhancement. Left-sided craniotomy changes are similar. Procedure Note Alexandre Wei MD - 08/21/2023 EXAMINATION: CT RAD ONC NEURO INTERP ONLY CLINICAL HISTORY: glioblastoma with excellent performance status s/pgross total resection receiving 60 Gy in 30 fractions with concurrenttemozolomide TECHNIQUE: CT of the head and neck performed following intravenous administration contrast for radiation treatment planning. COMPARISON: MR 08/19/2023 FINDINGS: Left temporal resection cavity with a small amount ofenhancement at the margins is unchanged compared to the MR of the same day. There is nonew mass. No adenopathy in the neck. No other abnormal enhancement.Left-sided craniotomy changes are similar. IMPRESSION Exam for treatment planning. Left temporal resection cavity. Thank you for letting us participate in the care of this patient. If youare a health care provider and have any questions regarding this report,please contact the number below. For patients who have questions please contactthe health care center manager that requested your imaging first. Electronically signed by: Alexandre Wei MD, [facility]([phone]), at 08/21/2023 12:01 PM Nicki Sharpe MD IMG OUTSIDE INTERPRE TATION ORDERABLES * MRI Brain wwo Contrast (Generic) (08/19/2023 8:50 AM EDT) Only the most recent of3 resultswithin the time period is included. WORKSTATION ID [id number] RAD Anatomical Region Laterality Modality Head Magnetic Resonan ce Impressions 08/21/2023 10:32 AM EDT Evolution of postsurgical changes. Some enhancement at the deep margin of the resection cavity corresponds to diffusion restriction on the prior study. No new or expanding mass. Thank you for letting us participate in the care of this patient. ??If you are a health care provider and have any questions regarding this report, please contact the number below. ??For patients who have questions please contact the health care center manager that requested your imaging first. ? Electronically signed by: Alexandre Wei MD, [facility] ([phone]), at 08/21/2023 10:32 AM Narrative 08/21/2023 10:32 AM EDT EXAMINATION: MRI BRAIN WWO CONTRAST (GENERIC) CLINICAL HISTORY: glioblastoma, need T1 post-contrast thin cut axial and FLAIR D49.6, Neoplasm of unspecified behavior of brain TECHNIQUE: MRI of the brain was performed before and after the intravenous administration of 16cc Dotarem. COMPARISON: 08/05/2023, 07/30/2023 FINDINGS: There are surgical changes of left-sided craniotomy with inferior left temporal resection cavity. T1 hyperintense material is present within the resection cavity. There is a nodular area of enhancement extends to the mesial surface of the temporal lobe at the deep margin of the resection cavity (series 14 image 75). This area corresponds to restricted diffusion on the prior exam and probably represents subacute infarct tissue. Left temporal edema is slightly decreased compared to the previous study. There is no new mass or new abnormal enhancement elsewhere. There is a small subdural collection along the falx without mass effect. Major intracranial flow voids are normal. Procedure Note Alexandre Wei MD - 08/21/2023 EXAMINATION: MRI BRAIN WWO CONTRAST (GENERIC) CLINICAL HISTORY: glioblastoma, need T1 post-contrast thin cut axial andFLAIR D49.6, Neoplasm of unspecified behavior of brain TECHNIQUE: MRI of the brain was performed before and after the intravenousadministration of 16cc Dotarem. COMPARISON: 08/05/2023, 07/30/2023 FINDINGS: There are surgical changes of left-sided craniotomy with inferior lefttemporal resection cavity. T1 hyperintense material is present within theresection cavity. There is a nodular area of enhancement extends to the mesialsurface of the temporal lobe at the deep margin of the resection cavity (series 14image 75). This area corresponds to restricted diffusion on the prior exam and probably represents subacute infarct tissue. Left temporal edema isslightly decreased compared to the previous study. There is no new mass or newabnormal enhancement elsewhere. There is a small subdural collection along thefalx without mass effect. Major intracranial flow voids are normal. IMPRESSION Evolution of postsurgical changes. Some enhancement at the deep margin ofthe resection cavity corresponds to diffusion restriction on the prior study.No new or expanding mass. Thank you for letting us participate in the care of this patient. If youare a health care provider and have any questions regarding this report,please contact the number below. For patients who have questions please contactthe health care center manager that requested your imaging first. Electronically signed by: Alexandre Wei MD, [facility]([phone]), at 08/21/2023 10:32 AM Nicki Sharpe MD [facility] MRI ORDERABLES * (ABNORMAL) Basic Metabolic Panel (non-fasting) (08/07/2023 5:40 AM EDT) Only the most recent of5 resultswithin the time period is included. Glucose 116 65 - 199 mg/dL [facility] Comment:Diabetes: >=200 mg/d L plus symptoms Blood Urea Nitrogen 25(H) 10 - 20 mg/dL [facility] Creatinine 1.04 0.80 - 1.50 mg/dL [facility] Sodium 138 135 - 145 mmol/L [facility] Potassium 4.4 3.5 - 5.0 mmol/L [facility] Comment: Please note: ??Patients with WBC >100,000 may have falsely elevated Potassium levels. ??For accurate Potassium quantification in these patients send serum separator tube (gold top) for subsequent determinations. ??Contact the Clinical Chemistry Laboratory if there are any questions. Chloride 105 98 - 107 mmol/L [facility] Carbon Dioxide 23 22 - 31 mmol/L [facility] Anion Gap 10 5 - 15 mmol/L [facility] Calcium 8.6 8.5 - 10.5 mg/dL [facility] Est Glomerular Filtration Rate 73 >=60 mL/min/1. 73 m?? [facility] Comment: This patient's estimated GFR was calculated using the 2020 CKD-EPI equation. The estimated GFR can vary from the measured GFR by up to 30% in the absence of rapidly changing kidney function. Assessment of the estimated GFR is not appropriate when creatinine concentrations are rapidly changing. For clinical situations in which a more precise estimate of GFR is necessary, consider alternative methods of GFR estimation such as a 24-hour urine creatinine clearance. Assignment of CKD stage 1-5 for patients with an eGFR near the transition point between stages may be based on clinical assessment of muscle mass and symptoms in addition to eGFR. Blood 08/07/2023 5:40 AM EDT 08/07/2023 6:13 AM EDT Narrative Resulting Agency Comment Spec In Lab Rolly Dunlap MD CHEMISTRY ORDERABLES Performing Organization Address City/State/[facility] Co de Phone Number [facility] [place] [address] * EEG Continuous Monitoring Inpatient (08/06/2023 6:05 PM EDT) Narrative Flora Hagen MD - 08/06/2023 6:05 PM EDT Flora Hagen MD ? 08/08/2023 ??8:04 AM [facility] Department of Neurology Inpatient Continuous Video EEG Report Name of the Patient: ??Perfecto Polk Date of : ?1940 Date of Service: ?08/06/2023 Referring physician: ?Michael Lundberg MD Reading Fellow: ??none Reading Attending: Ti Initial time and date cEEG monitoring started: 17:36 on 08/06/2023 report EEG end time: 23:09 pm ??08/07/23 Total recording time: ??33h 33 min Indication for cvEEG: Seizure and Other (Visual disturbances across visual pretty) BRIEF HISTORY: Perfecto Polk is a 82 y.o. 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 Experiencing persistent visual disturbances. MEDICATIONS: Current Facility-Administered Medications: ??psyllium husk 1 packet, 1 packet, Oral, Daily, Tiffani Adam MD, 1 packet at 08/06/23 0900 ??[] dexAMETHasone (Decadron) tablet 4 mg, 4 mg, Oral, Q6H ADELITA, 4 mg at 08/05/23 2304 FOLLOWED BY dexAMETHasone (Decadron) tablet 4 mg, 4 mg, Oral, 2 times per day, 4 mg at 08/06/232010 FOLLOWED BY [START ON 08/09/2023] dexAMETHasone (Decadron) tablet 2 mg, 2 mg, Oral, 2 times per day FOLLOWED BY [START ON 08/12/2023] dexAMETHasone (Decadron) tablet 1 mg, 1 mg, Oral, 2 times per day FOLLOWED BY [START ON 08/15/2023] dexAMETHasone (Decadron) tablet 1 mg, 1 mg, Oral, Daily, Osiris Ospina PA ??acetaminophen (Tylenol) tablet 975 mg, 975 mg, Oral, Q6H PRN, Dajuan Ahmadi PA, 975 mg at 08/05/23 1541 ??lactulose (Chronulac) (0.67 gram/mL) oral liquid 20 g, 20 g, Oral, BID, Tiffani Adam MD, 20 g at 08/06/23 0910 ??BUPivacaine-EPINEPHrine (Marcaine-epiNEPHrine) 0.25 %-1:200,000 injection, , , PRN, Rolly Dunlap MD, 9 mL at 08/04/23 1322 ??atorvastatin (Lipitor) tablet 20 mg, 20 mg, Oral, QPM, Savana Lion MD, 20 mg at 08/06/23 1736 ??levETIRAcetam (Keppra) tablet 500 mg, 500 mg, Oral, BID, Savana Lion MD, 500 mg at 08/06/232011 ??levothyroxine (Synthroid) tablet 25 mcg, 25 mcg, Oral, QAM, Savana Lion MD, 25 mcg at 08/07/23 0510 ??pantoprazole EC (Protonix) tablet 40 mg, 40 mg, Oral, Daily, Savana Lion MD, 40 mg at 08/06/23 0910 ??sodium chloride 0.9 % (flush) (BD PosiFlush Normal Saline 0.9) flush 5 mL, 5 mL, Intravenous, BID, Savana Lion MD, 5 mL at 08/06/232011 ??sodium chloride 0.9 % (flush) (BD PosiFlush Normal Saline 0.9) flush 5-20 mL, 5-20 mL, Intravenous, Q1 Min PRN, Savana Lion MD ??lidocaine (Xylocaine) 1% (10 mg/mL) injection 3 mg, 0.3 mL, Subcutaneous, Once PRN, Savana Loin MD ??senna-docusate (Pericolace) 8.6-50 mg per tablet 2 tablet, 2 tablet, Oral, BID, Savana iLon MD, 2 tablet at 08/06/23 0910 ??bacitracin zinc-polymyxin B (Polysporin) ointment, , , PRN, Rolly Dunlap MD, 1 oz at 08/04/23 1547 ??thrombin (Bovine) (Thrombinar) kit, , , PRN, Rolly Dunlap MD, 20,000 Units at 08/04/23 1548 ??polyethylene glycoL (Miralax) packet 17 g, 17 g, Oral, Daily, Jade Kaplan PA, 17 g at 08/06/23 0910 ??HYDROmorphone (Dilaudid) tablet 2 mg, 2 mg, Oral, Q4H PRN, Jewel Ryder PA, 2 mg at 08/05/23 0952 PRIOR EEG(s): METHODS: A 21 channel digitized continuous electroencephalogram with video was set up and recording started at 17:36 on 08/06/2023. Following explanation of the procedure, the 10/20 international system of electrode placement was used to determine electrode placement and disposable MRI conditional electrodes were applied using the paste/collodion method of application. ??In addition to EEG the patient was monitored for EKG. Video was recorded during the session. RPG PROGRAMMER ANALYST'S REPORT: Performed by: Rolly Schuler At the onset of the recording the patient was awake and cooperative. Movement and other artifact was significant. Comments: None ELECTROENCEPHALOGRAPHER'S REPORT Background: The background was continuous and spontaneously reactive composed of normal voltage, 10 to 60 ??V, nicely organized anterior to posterior gradient with frontally predominant beta and posterior alpha frequencies. ??There was a 9 Hz posterior dominant rhythm that attenuated with eye opening. Focal Asymmetries: There was persistent asymmetric L temporal slowing. Sleep: Sleep was characterized by decreased myogenic artifact and increased slowing. ??There were symmetric N2 sleep transients present including sleep spindles and K complexes. ??Periods of REM were also recorded. Interictal Activity: There were no epileptiform discharges or abnormal movement patterns. Patient Events or Seizures: No patient events or electrographic seizures were recorded. Provocative Maneuvers: Hyperventilation and photic stimulation were not performed. EKG: Single-lead EKG was regular. Technical Limitations: None INTERPRETATION: This 33 -hour recording of continuous video EEG was abnormal due to persistent L temporal slowing. THere is no epileptiform activity. CLINICAL CORRELATION: The temporal slowing is consistent with the patient's mass. FLORA HAGEN MD 08/07/2023 Rolly Dunlap MD NEUROLOGY ORDERABLES * Scan Doc: Telemetry Strips (08/05/2023 7:31 AM EDT) Only the most recent of2 resultswithin the time period is included. Narrative 08/05/2023 7:31 AM EDT Ordered by an unspecified provider. Scanning Provider MEDIA MGR SCAN EXT O RDR/RSLT * POCT Glucose (08/04/2023 4:30 PM EDT) Glucose, POC 113 65 - 199 mg/dL [facility] Comment: Supplemental ranges: <140 mg/dL before meals <180 mg/dL all other times of the day Blood 08/04/2023 4:30 PM EDT 08/04/2023 4:30 PM EDT Rolly Dunlap MD POINT OF CARE TEST O RDERABLES Performing Organization Address City/State/[facility] de Phone Number [facility] [place] [address] * Specimen to Pathology (08/04/2023 2:06 PM EDT) Only the most recent of3 resultswithin the time period is included. AP Specimen 08/04/2023 2:06 PM EDT 08/04/2023 2:[address] [facility] - 08/04/2023 2:06 PM EDT Specimen requisition ordered. ??Separate Pathology report to follow Rolly Dunlap MD PATHOLOGY/CYTOLOGY O ST[place]W Performing Organization Address [facility] Co de Phone Number [facility] [place] [address] * Solid Tumor NGS Panel (08/04/2023 2:01 PM EDT) Tissue 08/04/2023 2:01 PM EDT 08/09/2023 1:39 PM EDT Narrative Resulting Agency Comment Spec In Lab Rolly Dunlap MD PATHOLOGY/CYTOLOGY O [place]LA[place] Performing Organization Address [facility] de Phone Number [facility] [place] [address] * [facility] Tilley Test-Tilley (08/04/2023 2:01 PM EDT) [employer] [facility] Tilley Test ? Result ?Flag ??Unit ??RefValue MGMT Promoter Methylation, Tumor ??Result Summary ?MGMT PROMOTER METHYLATION ABSENT ??Result ? SEE COMMENTS ?Provided diagnosis: brain glioblastoma ?Tumor tissue: Negative for MGMT promoter methylation ??Interpretation ? SEE COMMENTS ?Current data suggest that the absence of MGMT promoter ?methylation predicts lack of response to alkylating ?chemotherapy (i.e. temozolomide) for patients with ?glioblastoma. Therefore, the absence of MGMT promoter ?methylation in this tumor specimen suggests that such ?therapies may have limited value for this patient. ?Additionally, the absence of MGMT promoter methylation is ?an unfavorable prognostic factor for patients with ?glioblastoma. ? -ADDITIONAL INFORMATION--------- ?Microscopic examination was performed by a pathologist only ?to identify areas of tumor for enrichment by ?macrodissection. A methylation-specific PCR-based assay is ?used to test tumor DNA for the presence of MGMT gene ?promoter methylation. ?Test results should be interpreted in the context of ?clinical findings, family history, and other laboratory ?data. If results obtained do not match other clinical or ?laboratory findings, please contact the laboratory for ?possible interpretation. Misinterpretation of results may ?occur if the information provided is inaccurate or ?incomplete. ?Negative results do not rule out the presence methylation ?that may be present but below the limit of detection for ?this assay (approximately 15%). ?Though rare, mutations and variants within the regions of ?the MGMT promoter covered by the primers may result in ?failure to amplify the region or detect the presence of ?methylation. ?Negative results do not rule out the presence methylation ?that may be present in other CpG sites. ?This test was developed and its performance characteristics ?determined by [facility] in a manner consistent with CLIA ?requirements. This test has not been cleared or approved by ?the U.S. Food and Drug Administration. ??Additional Information ? SEE COMMENTS ?REFERENCES ?1. N Engl J Med 2005;352(10):997-100 3 (PMID: 26152621) ?2. Wendi Rev Neurol 2010;6:39-51 (PMID: 75286304) ?3. Lancet Oncol. 2012; 13:707-715 (PMID: 14958108) ?4. Lancet Oncol. 2012; 13: 916-926 (PMID: [id number]) ?5. Wendi Rev Neurol 2014;10:372-385 (PMID: [id number]) ??Specimen ? Tissue, Tumor ??Tissue ID ?[id number] ??Released by ?Kari Mares M.D., Ph.D. ?Test Performed by: ?[facility] ?[address] [place] [address] ?Spout Liner: Sheri Elise Ph.D.; CLIA# [id number] [facility] Other Other / Unknown 08/04/2023 2 :01 PM EDT 08/19/2023 1:42 PM EDT Narrative Resulting Agency Comment Spec In Lab David Irizarry MD LAB SEND OUT ORDERAB LES [facility] [place] [address] * (ABNORMAL) Surgical Pathology Report (08/04/2023 2:01 PM EDT) Final Diagnosis [id number] ? Location: L5WD; 0518; A The signing pathologist has (i) examined the relevant preparation(s) for the specimen(s) and (ii) rendered or confirmed the diagnosis(es). . ?Surgical Pathology DIAGNOSIS A - Left temporal tumor, excision ?? 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 Pathologist Performed at: ??-[facility] Dept. of Pathology, [place] [address] Project Engineering Director: Sona Hernandez MD, FCAP, ??CLIA Certificate: [id number] DISCUSSION Hematoxylin and eosin staining of the specimen shows a hypercellular glial neoplasm with areas of pseudopalisading necrosis and microvascular proliferation. The tumor cells exhibit enlarge, hyperchromatic nuclei and occasional mitotic figures. The adjacent brain parenchyma appears reactive with subpial Chaslin astrogliosis. THIS RESULT REQUIRES PHYSICIAN/A.P.P. FOLLOW UP ADDITIONAL STUDIES Formalin-fixed, paraffin-embedded tissue sections are studied using the polymer technique with appropriate positive and negative controls. ?These IHC studies provide the pathologist with adjunctive diagnostic information. Antibody specificity has been verified by testing antibodies on a series of in-house tissues with known immunohistochemical performance characteristics. The clinical interpretation of any antibody positive staining or its absence is evaluated within the context of clinical presentation, morphology, histopathological criteria and other diagnostic tests. Block ?Antibody ?Result B1 ??GFAP Highlight reactive brain parenchyma B1,B9 ??[id number] Negative B1 ??ATRX Retained B1 ??p53 approximately 5-10% B1 ??Ki67 Up to 40% SPECIMEN(S) SUBMITTED A - left temporal tumor, excision (1) ?? for frozen section B - left temporal tumor, excision (Multiple) CLINICAL INFORMATION Left temporal tumor SPECIMEN PROCESSING A - Labeled/Fixative: Left temporal tumor, fresh for frozen section. Quantity/Size: Single, 0.4 x 0.3 x 0.2 cm. Tissue Description: Peraza-pink soft tissue. Sections/Processing: Touch prep(s) are prepared. The following tissue is submitted for frozen section: Entirety of the specimen; as AFS1. . SPECIMEN PROCESSING Submitted in toto ??in 1 cassette labeled A1. B - Labeled/Fixative: Left temporal tumor, fresh. Quantity/Size: Multiple, in aggregate 6.0 x 4.2 x 1.5 cm. Tissue Description: Irregular yellow-peraza to estrella-brown focally hemorrhagic rubbery soft tissue with a central 1.5 cm irregularly bordered necrotic-appearing focus. Sections/Processing: Serially sectioned and entirely submitted in 11 cassettes labeled B1-B11(B1/B2= one section, bisected). ??shb ?Frozen Section FROZEN SECTION DIAGNOSIS (A-FS1) Smear and frozen section preparations on left temp tumor: High-grade glioma Results phoned to Dr. Dunlap on 08/04/2023 at 2:30 PM. Electronically signed by: ?Edie SUNG, PhD, [facility] Verified: ??08/04/2023 14:33 ??Pathologist Performed at: ??-[facility] Dept. of Pathology, [place] [address] Project Engineering Director: Sona Hernandez MD, FCAP, ??CLIA Certificate: [id number] This intraoperative consultation should be interpreted as a preliminary diagnosis pending review of the entire specimen and special studies, if any. A final Surgical Pathology report will follow this preliminary Frozen Section report(s).(A) 08/10/2023 9:[address] [facility] BRAIN STRUCTURE / Unknown 08/04/2023 2:01 PM EDT 08/04/2023 2:01 PM EDT BRAIN STRUCTURE / Unknown 08/04/2023 2:01 PM EDT 08/04/2023 2:01 PM EDT Rolly Dunlap MD PATHOLOGY/CYTOLOGY O RDVIJI [facility] [place] [address] * (ABNORMAL) BLOOD GAS 2 VENOUS (08/04/2023 1:40 PM EDT) pH, Venous 7.37 7.32 - 7.42 [facility] PCO2, Venous 35(L) 41 - [address] [facility] PO2, Venous 186(H) 25 - [address] [facility] Bicarbonate, Venous 20.0 mmol/L [facility] Base Excess, Venous -5.2 mmol/L [facility] Hgb Blood Gas 11.7(L) 13.7 - 16.5 g/dL [facility] Oxyhemoglobin, Venous 98.9 % [facility] Carboxyhemoglob in, Venous 0.5 % [facility] Comment: Nonsmokers: 0.5-1.5% COHB Smokers: Variable, but usually less than 10% Toxic: 20-30% COHB Lethal: Greater than 60% COHB Methemoglobin, Venous 0.3 <=1.5 % [facility] Na Whole Blood 138 135 - 145 mmol/L [facility] K Whole Blood 3.9 3.5 - 5.0 mmol/L [facility] Comment: Please note: Patients with WBC >100,000 may have falsely elevated Potassium levels. Contact the Clinical Chemistry Laboratory if there are any questions. ICa Whole Blood 1.22 1.15 - 1.33 mmol/L [facility] Comment: Note: ??Total bilirubin higher than 20 mg/dL may lead to falsely low ionized calcium. CL Whole Blood 105 98 - 107 mmol/L [facility] Gluc Whole Bld 99 65 - 199 mg/dL [facility] Comment:Diabetes: >=200 mg/d L plus symptoms Lactate WB 1.8 0.5 - 2.2 mmol/L [facility] Blood Gas Source Venous [facility] Blood 08/04/2023 1:40 PM EDT 08/04/2023 1:40 PM EDT Rolly Dunlap MD POINT OF CARE TEST O RDERABLES [facility] [place] [address] * Scan Doc: Implantable Devices (08/04/2023 12:00 AM EDT) Narrative 08/04/2023 12:00 AM EDT Ordered by an unspecified provider. Scanning Provider MEDIA MGR SCAN EXT O RDR/RSLT * XR Knee Standing Alignment AP Lat [place] Right (08/03/2023 9:39 AM EDT) [employer] WORKSTATION ID [id number] DH RAD Anatomical Region Laterality Modality Knee Right Digital Radiogra phy Impressions 08/03/2023 12:45 PM EDT 1. ??Interval right total knee arthroplasty. ??No hardware complication. Indication is soft tissue swelling with a knee joint effusion is nonspecific, but presumably postsurgical. 2. ??Neutral alignment of the right knee. 3. ??Varus alignment of the left knee. 4. ??Insertional left gluteal calcific tendinopathy persists. Thank you for letting us participate in the care of this patient. ??If you are a health care provider and have any questions regarding this report, please contact the number below. ??For patients who have questions please contact the health care center manager that requested your imaging first. ? 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 ??These images were stitched together to form a composite image of the pelvis and legs. AP and sunrise views the bilateral knees, lateral view the right knee. COMPARISON: Right knee radiograph May 11, 2023 FINDINGS: Mechanical axes right leg passes through the central tibial tray. ??Mechanical axis left leg passes through the medial tibial plateau. Unchanged bilateral hip joint space narrowing. Unchanged amorphous calcium deposition adjacent to the left greater trochanter. Bilateral tibiotalar joint spaces are preserved. Right knee: Status post right total knee arthroplasty. ??There is anterior knee soft tissue swelling with a small knee joint effusion. No periprosthetic fracture or bone resorption. Normal alignment of the knee joint. Left knee: Unchanged medial compartment narrowing with subchondral cystic change and subchondral sclerosis with marginal osteophyte formation. ??Unchanged severe lateral patellofemoral compartment narrowing. 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 These images were stitched togetherto form a composite image of the pelvis and legs. AP and sunrise views the bilateral knees, lateral view the right knee. COMPARISON: Right knee radiograph May 11, 2023 FINDINGS: Mechanical axes right leg passes through the central tibial tray.Mechanical axis left leg passes through the medial tibial plateau. Unchanged bilateral hip joint space narrowing. Unchanged amorphous calcium deposition adjacent to the left greatertrochanter. Bilateral tibiotalar joint spaces are preserved. Right knee: Status post right total knee arthroplasty. There is anterior knee softtissue swelling with a small knee joint effusion. No periprosthetic fracture orbone resorption. Normal alignment of the knee joint. Left knee: Unchanged medial compartment narrowing with subchondral cysticchange and subchondral sclerosis with marginal osteophyte formation. Unchangedsevere lateral patellofemoral compartment narrowing. IMPRESSION 1. Interval right total knee arthroplasty. No hardware complication. Indication is soft tissue swelling with a knee joint effusion isnonspecific, but presumably postsurgical. 2. Neutral alignment of the right knee. 3. Varus alignment of the left knee. 4. Insertional left gluteal calcific tendinopathy persists. Thank you for letting us participate in the care of this patient. If youare a health care provider and have any questions regarding this report,please contact the number below. For patients who have questions please contactthe health care center manager that requested your imaging first. Electronically signed by: Nathalie Jarquin MD, [facility]([phone]), at 08/03/2023 12:45 PM Ernie Fuchs MD IMG DX ORDERABLES * MRI Brain wo Contrast (07/30/2023 9:49 AM EDT) WORKSTATION ID [id number] RAD Anatomical Region Laterality Modality Head Magnetic Resonan ce Impressions 07/30/2023 10:42 AM EDT Diffusion tensor imaging showing white matter tracts in the vicinity of the left temporal neoplasm as described above Thank you for letting us participate in the care of this patient. ??If you are a health care provider and have any questions regarding this report, please contact the number below. ??For patients who have questions please contact the health care center manager that requested your imaging first. ? Electronically signed by: Otto Dunaway MD, [facility] ([phone]), at 07/30/2023 10:42 AM Narrative 07/30/2023 10:42 AM EDT EXAMINATION: MRI BRAIN WO CONTRAST CLINICAL HISTORY: synaptic DTI protocol TECHNIQUE: MRI of the brain performed without intravenous contrast administration. Tensor imaging was obtained COMPARISON: MRI brain of 07/28/2023 FINDINGS: Diffusion tensor imaging shows diminished normal fractional anisotropy in the region of the rim-enhancing mass within the left temporal lobe. The corticospinal tracts pass medial to the area of vasogenic edema related to the mass and have an expected course. The anisotropy related to the arcuate fasciculus lies within the field of edema and is not well demonstrated on the left. It has a normal configuration on the right. Procedure Note Otto Dunaway MD - 07/30/2023 EXAMINATION: MRI BRAIN WO CONTRAST CLINICAL HISTORY: synaptic DTI protocol TECHNIQUE: MRI of the brain performed without intravenous contrast administration.Tensor imaging was obtained COMPARISON: MRI brain of 07/28/2023 FINDINGS: Diffusion tensor imaging shows diminished normal fractional anisotropy inthe region of the rim-enhancing mass within the left temporal lobe. The corticospinal tracts pass medial to the area of vasogenic edema related tothe mass and have an expected course. The anisotropy related to the arcuate fasciculus lies within the field of edema and is not well demonstrated onthe left. It has a normal configuration on the right. IMPRESSION Diffusion tensor imaging showing white matter tracts in the vicinity ofthe left temporal neoplasm as described above Thank you for letting us participate in the care of this patient. If youare a health care provider and have any questions regarding this report,please contact the number below. For patients who have questions please contactthe health care center manager that requested your imaging first. Electronically signed by: Otto Dunaway MD, [facility]([phone]), at 07/30/2023 10:42 AM Rolly Dunlap MD IMG MRI ORDERABLES * CT Chest Abdomen Pelvis w Contrast (Generic) (07/29/2023 1:31 PM EDT) WORKSTATION ID [id number] RAD Anatomical Region Laterality Modality Abdomen, Pelvis Computed Tomogra phy Impressions 07/29/2023 5:03 PM EDT 1. ??No metastatic disease appreciated in the chest, abdomen or pelvis. 2. ??Small right chest wall subcutaneous nodule, increased from 2018 but otherwise nonspecific. Low suspicion of malignancy. 3. ??Cholelithiasis and small polyps or mural nodules. No suspicion of primary malignancy. Consider follow-up outpatient ultrasound to check size stability. I have personally reviewed the image(s) and the resident's interpretation and agree with the findings, Rodney Jain MD at 07/29/2023 5:03 PM Thank you for letting us participate in the care of this patient. ??If you are a health care provider and have any questions regarding this report, please contact the number below. ??For patients who have questions please contact the health care center manager that requested your imaging first. ? Narrative 07/29/2023 5:03 PM EDT EXAMINATION: CT CHEST ABDOMEN PELVIS W CONTRAST (GENERIC) CLINICAL HISTORY: new brain mass, r/o mets TECHNIQUE: Helical CT of the chest, abdomen, and pelvis following the intravenous administration of 88.9 ml of VISIPAQUE 320.00 mg/ml. Oral contrast was administered. COMPARISON: CT abdomen pelvis 03/08/2017 FINDINGS: Chest: Lungs and large airways: Sub-6 mm anterior right upper lobe calcific nodule, likely a granuloma. Pleura: No effusion. Heart/vasculature: Normal heart size. No pericardial effusion. Coronary artery and aortic atherosclerotic calcifications. Lymph nodes: No enlarged lymph nodes. Mediastinum and verona: Normal. Soft tissues: 0.8 cm soft tissue nodule in the anterior right chest wall without attachment to the skin. This has apparently increased from 0.3 cm on 03/08/2017. Abdomen/pelvis: Liver: Normal size and attenuation without lesions. Bile ducts: Nondilated. Gallbladder: Small calculi and possible polyps or nodules, for example in the anterior wall on series 3 image 93. Pancreas: Normal attenuation without ductal dilatation. Spleen: Normal. Adrenals: Normal. Kidneys: Symmetric nephrograms. Small left lower pole exophytic hypodense fluid attenuating lesion is too small to characterize, but favored to be a cyst. No calculi or collecting system dilatation. Urinary Bladder: Normal. Vasculature: No abdominal aortic aneurysm. Scattered atherosclerotic calcifications. ??The portal vein is patent. The renal veins are patent. Lymph Nodes: No enlarged lymph nodes. Bowel: Unremarkable stomach and duodenum. No dilated small or large bowel loops or bowel wall thickening. Normal terminal ileum. The appendix is surgically absent. Peritoneum and retroperitoneum: No free fluid or loculated fluid collection. No pneumoperitoneum. No mesenteric inflammation. Abdominal wall: Normal. Reproductive organs: Normal. Osseous structures: No suspicious lesions. Stable degenerative spinal changes. Procedure Note Rodney Jain MD - 07/29/2023 EXAMINATION: CT CHEST ABDOMEN PELVIS W CONTRAST (GENERIC) CLINICAL HISTORY: new brain mass, r/o mets TECHNIQUE: Helical CT of the chest, abdomen, and pelvis following the intravenous administration of 88.9 ml of VISIPAQUE 320.00 mg/ml. Oralcontrast was administered. COMPARISON: CT abdomen pelvis 03/08/2017 FINDINGS: Chest: Lungs and large airways: Sub-6 mm anterior right upper lobe calcificnodule, likely a granuloma. Pleura: No effusion. Heart/vasculature: Normal heart size. No pericardial effusion. Coronaryartery and aortic atherosclerotic calcifications. Lymph nodes: No enlarged lymph nodes. Mediastinum and verona: Normal. Soft tissues: 0.8 cm soft tissue nodule in the anterior right chest wallwithout attachment to the skin. This has apparently increased from 0.3 cm on03/08/2017. Abdomen/pelvis: Liver: Normal size and attenuation without lesions. Bile ducts: Nondilated. Gallbladder: Small calculi and possible polyps or nodules, for example inthe anterior wall on series 3 image 93. Pancreas: Normal attenuation without ductal dilatation. Spleen: Normal. Adrenals: Normal. Kidneys: Symmetric nephrograms. Small left lower pole exophytic hypodensefluid attenuating lesion is too small to characterize, but favored to be a cyst.No calculi or collecting system dilatation. Urinary Bladder: Normal. Vasculature: No abdominal aortic aneurysm. Scattered atherosclerotic calcifications. The portal vein is patent. The renal veins are patent. Lymph Nodes: No enlarged lymph nodes. Bowel: Unremarkable stomach and duodenum. No dilated small or large bowelloops or bowel wall thickening. Normal terminal ileum. The appendix issurgically absent. Peritoneum and retroperitoneum: No free fluid or loculated fluidcollection. No pneumoperitoneum. No mesenteric inflammation. Abdominal wall: Normal. Reproductive organs: Normal. Osseous structures: No suspicious lesions. Stable degenerative spinalchanges. IMPRESSION 1. No metastatic disease appreciated in the chest, abdomen or pelvis. 2. Small right chest wall subcutaneous nodule, increased from 2018 but otherwise nonspecific. Low suspicion of malignancy. 3. Cholelithiasis and small polyps or mural nodules. No suspicion ofprimary malignancy. Consider follow-up outpatient ultrasound to check sizestability. I have personally reviewed the image(s) and the resident's interpretationand agree with the findings, Rodney Jain MD at 07/29/2023 5:03 PM Thank you for letting us participate in the care of this patient. If youare a health care provider and have any questions regarding this report,please contact the number below. For patients who have questions please contactthe health care center manager that requested your imaging first. Electronically signed by: Rodney Jain MD, [facility]([phone]), at 07/29/2023 5:03 PM Rolly Dunlap MD IMG CT ORDERABLES * APTT (07/29/2023 1:25 AM EDT) [facility] Signature Partial Thromboplastin Time 35 25 - [address] [facility] Comment: The PTT is NOT appropriate for heparin monitoring. Use the Anti-Xa level for heparin monitoring (HEP UFH) or LMWH monitoring (HEP LMW). A PTT less than 37 seconds generally indicates adequate hemostasis. Blood 07/29/2023 1:25 AM EDT 07/29/2023 1:39 AM EDT Narrative Resulting Agency Comment Spec In Lab Rolly Dunlap MD HEMATOLOGY ORDERABLE S Performing Organization Address [facility] de Phone Number [facility] [place] [phone] * Prothrombin Time (07/29/2023 1:25 AM EDT) Prothrombin Time 12.0 9.4 - 12.[address] [facility] International Normalization Ratio 1.1 [facility] Comment: An INR <2.0 indicates adequate procoagulant activity for hemostasis in most patients without underlying bleeding disorders, though the INR may not adequately reflect hemostatic capacity in patients with liver disease and synthetic impairment. The recommended target INR range for therapeutic anticoagulation is 2.0 ? 3.0 for most applications, though lower and higher ranges may be appropriate depending on clinical circumstances. Blood 07/29/2023 1:25 AM EDT 07/29/2023 1:39 AM EDT Narrative Resulting Agency Comment Spec In Lab Rolly Dunlap MD HEMATOLOGY ORDERABLE S Performing Organization Address [facility] de Phone Number [facility] [place] [address] * CRP, acute inflammation (07/25/2023 4:23 PM EDT) C-Reactive Protein <3.0 <=4.9 mg/L [facility] Blood Venous Draw / Unknown 07/25/2023 4:23 PM EDT 07/25/2023 7:32 PM EDT Narrative Resulting Agency Comment Spec In Lab Molina Herr MD CHEMISTRY ORDERABLES Performing Organization Address [facility] Co de Phone Number [facility] [place] [address] * Gold Tube HOLD (07/25/2023 4:23 PM EDT) Only the most recent of2 resultswithin the time period is included. Gold Hold Sample in lab. [facility] Blood Venous Draw / Unknown 07/25/2023 4:23 PM EDT 07/25/2023 7:36 PM EDT Molina Herr MD CHEMISTRY ORDERABLES [facility] [place] [address] * Urinalysis with reflex Culture (07/25/2023 4:23 PM EDT) Glucose, Urine Dipstick Negative Negative mg/dL [facility] Protein, Urine Dipstick Negative Negative mg/dL [facility] Bilirubin, Urine Dipstick Negative Negative mg/dL [facility] Comment: Clinical correlation required for positive Urine Bilirubin results as false positive may occur with some drugs and drug related products. If a false positive is suspected a serum total bilirubin should be considered if clinically indicated. Urobilinogen, Urine Dipstick Normal Normal mg/dL [facility] pH, Urn (dipstick) 6.0 5.0 - 8.0 [facility] Blood, Urine Dipstick Negative Negative mg/dL [facility] Ketone, Urine Dipstick Negative Negative mg/dL [facility] Nitrite, Urine Dipstick Negative Negative [facility] Leukocytes, Urine Dipstick Negative Negative [facility] Appearance, Urine Dipstick Clear Clear [facility] Specific [place] Urine Automated 1.022 1.005 - 1.030 [facility] Color, Urine Dipstick Yellow Yellow [facility] Reflex to Culture No [facility] Clean Catch Urine Urine / Unknown 07/25/2023 4:23 PM EDT 07/25/2023 7:32 PM EDT Narrative Resulting Agency Comment Spec In Lab Molina Herr MD URINE ORDERABLES Performing Organization Address [facility] de Phone Number [facility] [place] [address] * (ABNORMAL) Sedimentation rate (07/25/2023 4:23 PM EDT) Pathologist [facility] Sedimentation Rate Automated 62(H) 3 - 46 mm/hr [facility] Comment: Effective February 14, 2019 new capillary photometric technology has resulted in a change in reference ranges. It is recommended that each ESR result be reviewed with its own age appropriate reference range. Blood Venous Draw / Unknown 07/25/2023 4:23 PM EDT 07/25/2023 7:34 PM EDT Narrative Resulting Agency Comment Spec In Lab Molina Herr MD HEMATOLOGY ORDERABLE S Performing Organization Address [facility] de Phone Number [facility] [place] [address] * COLONOSCOPY (01/20/2023 3:03 PM EST) [facility] COLONOSCOPY [facility] Endoscopy Procedure Date: 01/20/2023 3:03 PM ? Patient Name: Perfecto Polk ? Date of : 1940 ? Age: 82 ? Order #: [id number] ? Instrument Name: [id number] ? Procedure: ? Colonoscopy Indications: ? High risk colon cancer ? surveillance: Personal history of ? colonic polyps Providers: ? Guerda Coombs MD, Belinda Saldaña ? Ernie Neville Referring : ?Molina Herr MD Medicines: ? Midazolam 3 mg IV, Fentanyl 125 ? micrograms IV Complications: ? No immediate complications. Procedure: ? Pre-Anesthesia Assessment: ? - Prior to the procedure, a History ? and Physical was performed, and ? patient medications, allergies and ? sensitivities were reviewed. The ? patient's tolerance of previous ? anesthesia was reviewed. ? - The risks and benefits of the ? procedure and the sedation options ? and risks were discussed with the ? patient. All questions were ? answered and informed consent was ? obtained. ? The procedure, indications, ? benefits, risks and alternatives ? were explained to the patient. ? Specifically discussed were ? potential complications including, ? but not limited to, bleeding, ? perforation, infection, missing a ? cancer, and adverse medication ? reactions. The patient was placed ? in the left lateral decubitus ? position, and a digital rectal exam ? was performed. The Colonoscope was ? inserted in the anus and under ? direct visualization, advanced to ? the terminal ileum. Careful ? inspection was made as the ? colonoscope was withdrawn. The ? colonoscopy was performed without ? difficulty. The patient tolerated ? the procedure well. The quality of ? the bowel preparation was excellent. ? Findings: ? A 3 mm polyp was found in the descending colon. The ? polyp was sessile. The polyp was removed with a cold ? snare. Resection and retrieval were complete. ? Internal hemorrhoids were found. ? Moderate Sedation: ? I was present during the intraservice time as ? documented by the sedation RN. Impression: ?- One 3 mm polyp in the descending ? colon, removed with a cold snare. ? Resected and retrieved. ? - Internal hemorrhoids. Recommendation: ?- Await pathology results. ? Given compliance with surveillance ? colonoscopies, excellent prep, ? benign nature of today's polyp, and ? current age is it is reasonable not ? to repeat colonoscopy. ? Attending Participation: ? I personally performed the entire procedure. ? I was present during the intraservice time as ? documented by the sedation RN. ? Guerda Coombs MD 01/20/2023 4:00:29 PM This report has been signed electronically. Number of Addenda: 0 Note Initiated On: 01/20/2023 3:03 PM [employer]OVATION 01/20/2023 3:03 PM EST Molina Herr MD GENERAL SURGICAL ORD ERABLES Performing Organization Address City/State/[facility] Co de Phone Number PROVATION from Last 3 Months or Most Recently Relevant to Health Maintenance Advance Directives Documents on File Type Date Recorded Patient Clinical Services Assistant Expl anation Advance Directives and Livin g Will 05/06/2010 8:11 AM Advance Directives and Livin g Will 08/03/2023 9:27 AM 08/01/2023 Personal Clinical Services Assistant 06/01/2023 1:01 PM * Attempt Cardiopulmonary Resuscitation - Inpatient (Latest Code Status on File) Date Activated Date Inactivated Comments 08/04/2023 3:46 PM 08/07/2023 6:16 PM Question Answer Comments Code Status decision made by: Patient * Attempt Cardiopulmonary Resuscitation - Inpatient Date Activated Date Inactivated Comments 07/28/2023 11:28 PM 07/30/2023 12:55 PM Question Answer Comments Code Status decision made by: Patient * Attempt Cardiopulmonary Resuscitation - Inpatient Date Activated Date Inactivated Comments 07/05/2023 4:13 PM 07/06/2023 4:55 PM Question Answer Comments Code Status decision made by: Patient * Attempt Cardiopulmonary Resuscitation - Inpatient Date Activated Date Inactivated Comments 07/05/2023 6:54 AM 07/05/2023 4:13 PM Question Answer Comments Code Status decision made by: Patient * Full Code Date Activated Date Inactivated Comments 03/08/2017 9:23 PM 03/09/2017 5:39 PM Question Answer Comments Does patient have capacity to make decision: Yes Care Teams Algologist Relationship Specialty Start Date End Date Molina Herr MD [facility] [address] [place] [address] PCP - General 01/27/10
--- OUTSIDE RECORDS SUMMARY | 2023-10-17 15:03 | XMS_ITS | Encounter Summary ---
[place] [address] Care Team Providers Care Roll Plugger Machine Operator Name Role Phone Molina Herr MD Primary Care Provider [phone] Encounter Details Date Type Department Care Team (Latest Contact Info) Description 10/17/2023 2:00 PM EDT Hospital Encounter Hematology Oncology Level [address] [place] [address] Thrombocytopenia; 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 use Social History [...] from your doctor or pharmacy? Sometimes 08/22/2023 [facility] Utilities Answer Date Recorded In the past 12 months has [employer] electric, gas, oil, or water company threatened [...] any time in the past 12 m onths, were you homeless or living in a group home (including now)? No 08/22/2023 IPV Inpatient Questions [...] AM EDT Office [place] [address] Elly Alston MD [facility] [address] HOSPICE AND [place] [address] 10/27/2023 1:00 PM EDT Office [place] [address] Debra Franco, [employer]CH AND COILER OPERATOR HELPER 11/03/2023 2:00 PM EDT Office Visit Speech Therapy at [address] Debra Franco, [employer] P[employer] COIL[employer] OPERATOR HELPER 11/08/2023 2:30 PM EDT Appointment MRI at [place] [address] Navjot Grider MD [facility] [address] [place] [address] 11/09/2023 1:45 PM EDT Office Visit Hematology and Oncology at [place] [address] Isabell Jacob MD [facility] [place] [address] 11/11/2023 10:30 AM EDT Office Visit Radiation Oncology at [address] Nicki Sharpe MD [facility] [place] [address] 11/15/2023 10:00 AM EDT Office Visit Speech Therapy at [place] [phone] Debra Franco, ROLANDO 11/16/2023 9:00 AM EDT Office Visit Hematology [place] [address] Bisi Nam 11/22/2023 10:00 AM EDT Office Visit Speech Therapy at [place] [phone] Debra Franco, ROLANDO 11/30/2023 9:00 AM EDT Office Visit Hematology [place] [address] Bisi Nam 12/14/2023 9:00 AM EDT Office Visit Hematology [place] [address] Bisi Nam 12/28/2023 9:00 AM EDT Office Visit Hematology [place] [address] Bisi Nam Scheduled Orders Name Type Priority Associated Diagnoses Orde r Schedule Prepare Platelets, Apheresis Blood Bank Routine Thrombocytopenia 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 use One Time for 1 Occurrences starting 10/17/2023 until 10/17/2023 documented as of this encounter Goals Goal Patient Goal Type Associated Problems Recent Progress Patient-Stated? Author Patient's specific desired goal: Patient Facing Action Plan No Andrei Egan, [facility] Note: Goal(s): maintain quality of [...] medications documented in this encounter Care Teams Roll Plugger Machine Operator Relationship Specialty Start Date End Date Molina Herr MD [facility] [address] [place] [address] PCP - General 01/27/10 documented as of this encounter
--- OUTSIDE RECORDS SUMMARY | 2023-10-17 15:03 | XMS_ITS | Encounter Summary ---
Author Organization [facility] [place] [address] Care Team Providers Care Billing Machine Operator Name Role Phone Molina Herr MD Primary Care Provider [phone] Encounter Details Date Type Department Care Team (Latest Contact Info) Description 10/14/2023 10:12 AM EDT - 10/14/2023 11:59 PM EDT Hospital Encounter Hematology [place] [phone] Glioblastoma of temporal lobe Discharge Disposition: Home Social History Tobacco Use [...] from your doctor or pharmacy? Sometimes 08/22/2023 [facility] Utilities Answer Date Recorded In the [...] any time in the past 12 m [facility] [place], were you homeless or living in a assisted (including now)? No 08/22/2023 IPV Inpatient Questions [...] on file documented as of this encounter Last Filed Vital Signs Vital Sign Reading Time Taken Comments Blood Pressure 111/76 10/14/2023 10:52 AM EDT Pulse 68 10/14/2023 10:52 AM EDT Temperature 36.1 ??C (96.9 ??F) 10/14/2023 10:52 AM E DT Respiratory Rate 16 10/14/2023 10:52 AM EDT Oxygen Saturation 99% 10/14/2023 10:52 AM EDT Inhaled Oxygen Concentration - - Weight - - Height - - Body Mass Index - - documented in this encounter Medications at Time of Discharge [...] 20 mg by mouth daily. 4 03/08/2014 [id number] c (SOURCE CF) 200-10 mcg-mg Chew Take 1 tablet by mouth daily. 08/04/2010 levothyroxine (SYNTHROID) 25 mcg tablet 25MCG = 1 Tablet(s), PO, Once daily 09/27/2007 atorvastatin (LIPITOR) 10 mg tablet Take 20 mg by mouth. 09/27/2007 documented as of this encounter Progress Notes * Clarice Narvaez RN - 10/14/2023 10:59 AM EDT Patient Name: Perfecto Polk Patient Age: 83 y.o. Birthdate: 1940 Admit date: 10/14/2023 Attending Physician: No att. providers found Perfecto Polk, 83 y.o. male with diagnosis of glioblastoma is here for infusion of Pentam. S: Pt. offers no complaints at this time. Reviewed plan of care for infusion visit, patient verbalized understanding of plan as outlined. O: Orders independently verified for correct drug name, route and dosage per patient's height, weight and BSA by Clarice Narvaez RN and onsite pharmacist. Medications administered per protocol. See MAR for medication administration. REACTIONS (DESCRIPTION, TIME, INTERVENTION AND EFFECTIVENESS) None reaction to medication. Hematoma formed at PIV site with terminating flush. Site tightly wrapped and ice applied. Patient instructed to call if he has any concerns about IV site. A: Pt. Tolerated treatment with out issue. Perfecto Polk confirms that all questions and issues have been addressed. P: Return to clinic as scheduled. documented in this encounter Plan of Treatment Upcoming Encounters Date Type Department Care Team (Sam coleman Contact Info) Description 10/27/2023 11:15 AM EDT Office Visit Palliative Medicine at [place] [address] Elly Alston MD [facility] HOSPICE [place] [address] 10/27/2023 1:00 PM EDT Office Visit Speech Therapy at [place] [address] Debra Franco, KNITTER MACHINE 11/03/2023 2:00 PM EDT Office Visit Speech Therapy at [address] Debra Franco, KNITTER MACHINE 11/08/2023 2:30 PM EDT Appointment MRI at [place] [address] Navjot Grider MD [facility] [address] [place] [address] 11/09/2023 1:45 PM EDT Office Visit Hematology and Oncology at [place] [address] Isabell Jacob MD [facility] [place] [place] [address] 11/11/2023 10:30 AM EDT Office Visit Radiation Oncology at [place] [address] Nicki Sharpe MD [facility] [place] [address] 11/15/2023 10:00 AM EDT Office Visit Speech Therapy at [place] [phone] Debra Franco, KNITTER MACHINE 11/16/2023 9:00 AM EDT Office Visit Hematology [place] [address] Bisi Nam 11/22/2023 10:00 AM EDT Office Visit Speech Therapy at [facility] [place] [address] Debra Franco SLP 11/30/2023 9:00 AM EDT Office Visit Hematology [place] [address] Bisi Nam 12/14/2023 9:00 AM EDT Office Visit Hematology and Oncology at [facility] [place] [address] Bisi Nam 12/28/2023 9:00 AM EDT Office Visit Hematology [place] [address] Bisi Nam documented as of this encounter Goals Goal Patient Goal Type Associated Problems Recent Progress Patient-Stated? Author Patient's specific desired goal: Patient Facing Action Plan Andrei Lee, [facility] Note: Goal(s): maintain quality of life [...] Malignant neoplasm of temporal lobe of brain documented in this encounter Administered Medications Inactive Administered Medications - up to 3 most recent administrations Medication Order MAR Action Action Date Dose Rate Site pentamidine (Pentam) 300 mg in dextrose 5% 103 mL infusion 300 mg, Intravenous, ONCE, 1 dose, On Tue10/14/23 at 1115, Administer over 120 Minutes, Indication for (Active or Suspected): Prophylaxis New Bag 10/14/2023 11:39 AM EDT 300 mg 51.5 m L/hr documented in this encounter Care Teams Billing Machine Operator Relationship Specialty Start Date End Date Molina Herr MD [facility] [address] [place] [address] PCP - General 01/27/10 documented as of this encounter
--- OUTSIDE RECORDS SUMMARY | 2023-10-17 15:03 | XMS_ITS | Encounter Summary ---
[place] [address] Care Team Providers Care Carpenter And Joiner Name Role Phone Molina Herr MD Primary Care Provider Reason for Visit * Reason Onset Date Comments Prior Authorization 10/12/2023 Encounter Details Date Type Department Care Team (Late st Contact Info) Description 10/12/2023 Telephone Hematology [place] [address] Osiris Sarmiento Prior Authorization Social History Tobacco Use Types Packs/Day Years [...] from your doctor or pharmacy? Sometimes 08/22/2023 [facility] Utilities Answer Date Recorded In the [...] time in the past 12 m [facility], were you homeless or living in a half-way (including now)? No 08/22/2023 IPV Inpatient Questions [...] AM EDT Office [place] [address] Elly Alston MD [facility] DR HOSPICE [place] [address] 10/27/2023 1:00 PM EDT Office [place] [address] Debra Franco, BIOMEDICAL FIELD SERVICE ENGINEER 11/03/2023 2:00 PM EDT Office Visit Speech Therapy at [place] [phone] Debra Franco, ROLANDO 11/08/2023 2:30 PM EDT Appointment MRI at [place] [address] Navjot Grider MD [facility] [address] [place] [address] 11/09/2023 1:45 PM EDT Office Visit Hematology and Oncology at [address] Isabell Jacob MD [facility] [place] [address] 11/11/2023 10:30 AM EDT Office Visit Radiation Oncology at [address] Nicki Sharpe MD [facility] [place] [address] 11/15/2023 10:00 AM EDT Office [place] [address] Debra Franco SLP 11/16/2023 9:00 AM EDT Office Visit Hematology [place] [address] Bisi Nam 11/22/2023 10:00 AM EDT Office [place] [address] Debra Franco, ROLANDO 11/30/2023 9:00 AM EDT Office Visit Hematology [place] [address] Bisi Nam 12/14/2023 9:00 AM EDT Office Visit [place]ematology [place] [address] Bisi Nam 12/28/2023 9:00 AM EDT Office Visit [place] [address] Bisi Nam documented as of this encounter Goals Goal Patient Goal Type Associated Problems Recent Progress Patient-Stated? Author Patient's specific desired goal: Patient Facing Action Plan Andrei Lee, [facility] Note: Goal(s): maintain quality of [...] on filedocumented in this encounter Care Teams Carpenter And Joiner Relationship Specialty Start Date End Date Molina Herr MD [facility] [address] [place] [address] PCP - General 01/27/10 documented as of this encounter
--- OUTSIDE RECORDS SUMMARY | 2023-10-17 15:04 | XMS_ITS | Encounter Summary ---
Author Organization [facility] [place] [address] Care Team Providers Care Opal Polisher Name Role Phone Molina Herr MD Primary Care Provider [phone] Encounter Details Date Type Department Care Team (Latest Contact Info) Description 10/04/2023 Travel Social History Tobacco Use Types Packs/Day [...] your doctor or pharmacy? Sometimes 08/22/2023 [facility] Utilities Answer Date Recorded In the past 12 months has [facility] [employer], gas, oil, or water [employer] threatened to shut off services in your [...] were you homeless or living in a care home (including now)? No 08/22/2023 IPV Inpatient [...] AM EDT Office [place] [address] Elly Alston MD [facility] DR HOSPICE AND [place] [address] 10/27/2023 1:00 PM EDT Office [place] [address] Debra Franco, WASTE DUSTER 11/03/2023 2:00 PM EDT Office [place] [address] Debra Franco, WASTE DUSTER 11/08/2023 2:30 PM EDT Appointment MRI at [place] [address] Navjot Grider MD [facility] DR HEMATOLOGY [place] [address] 11/09/2023 1:45 PM EDT Office Visit Hematology and Oncology at [address] Isabell Jacob MD [facility] [place] [address] 11/11/2023 10:30 AM EDT Office Visit Radiation Oncology at [address] Nicki Sharpe MD [facility] DR [place] [address] 11/15/2023 10:00 AM EDT Office [place] [address] Debra Franco, ROLANDO 11/16/2023 9:00 AM EDT Office Visit Hematology [place] [address] Bisi Nam 11/22/2023 10:00 AM EDT Office [place] [address] Debra Franco, ROLANDO 11/30/2023 9:00 AM EDT Office Visit [place]ematology [place] [address] Bisi Nam 12/14/2023 9:00 AM EDT Office Visit [place]ematology [place] [address] Bisi Nam 12/28/2023 9:00 AM EDT Office Visit [place] [address] Bisi Nam documented as of this encounter Goals Goal Patient Goal Type Associated Problems Recent Progress Patient-Stated? Author Patient's specific desired goal: Patient Facing Action Plan Andrei Lee, [facility] Note: Goal(s): maintain quality of life as much as possible Measured by: quality of life scale, ability to participate in activities which he enjoys and needs to do Time-frame: to be assessed at approximately the one year point by pharmacy, or sooner if patient asks to discuss documented as of this encounter Visit Diagnoses Not on filedocumented in this encounter Care Teams Opal Polisher Relationship Specialty Start Date End Date Molina Herr MD [facility] [place] [address] [place] [address] PCP - General 01/27/10 documented as of this encounter
--- OUTSIDE RECORDS SUMMARY | 2023-10-17 15:04 | XMS_ITS | Encounter Summary ---
Author Organization [facility] [place] [address] Care Team Providers Care Boiler Engineer Name Role Phone Molina Herr MD Primary Care Provider [phone] Encounter Details Date Type Department Care Team (Late st Contact Info) Description 10/11/2023 Orders Only Hematology [place] [address] Dionisio Sheffield PA [facility] [place] [address] Thrombocytopenia (Primary Dx); Lymphocytopenia; 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 use; Glioblastoma of temporal lobe Social History Tobacco Use Types Packs/Day Years [...] from your doctor or pharmacy? Sometimes 08/22/2023 [facility] Utilities Answer Date Recorded In [...] any time in the past 12 m [facility], were you homeless or living in a retirement (including now)? No 08/22/2023 IPV Inpatient Questions [...] as of this encounter Miscellaneous Notes * Addendum Note - Dionisio Sheffield PA - 10/11/2023 1:18 PM EDTAddended by: DIONISIO SHEFFIELD on: 10/11/2023 01:30 PM Modules accepted: Orders documented in this encounter Plan of Treatment Upcoming Encounters Date Type Department Care Team (Late st Contact Info) Description 10/27/2023 11:15 AM EDT Office Visit Palliative Medicine at [place] [address] Elly Alston MD [facility] [address] HOSPICE AND [place] [address] 10/27/2023 1:00 PM EDT Office Visit Speech Therapy at [address] Debra Franco, PERIOPERATIVE NURSE 11/03/2023 2:00 PM EDT Office Visit Speech Therapy at [address] Debra Franco, PERIOPERATIVE NURSE 11/08/2023 2:30 PM EDT Appointment MRI at [place] [address] Navjot Grider MD [facility] DR HEMATOLOGY [place] [address] 11/09/2023 1:45 PM EDT Office Visit Hematology and Oncology at [place] [address] Isabell Jacob MD [facility] [place] [address] 11/11/2023 10:30 AM EDT Office Visit Radiation Oncology at [address] Nicki Sharpe MD [facility] [place] [address] 11/15/2023 10:00 AM EDT Office Visit Speech Therapy at [place] [phone] Debra Franco, PERIOPERATIVE NURSE 11/16/2023 9:00 AM EDT Office Visit Hematology and Oncology at [address] Bisi Nam 11/22/2023 10:00 AM EDT Office [place] [address] Debra Franco, PERIOPERATIVE NURSE 11/30/2023 9:00 AM EDT Office Visit Hematology [place] [address] Bisi Nam 12/14/2023 9:00 AM EDT Office Visit [place]ematology [place] [address] Bisi Nam 12/28/2023 9:00 AM EDT Office Visit [place] [address] Bisi Nam documented as of this encounter Goals Goal Patient Goal Type Associated Problems Recent Progress Patient-Stated? 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
--- OUTSIDE RECORDS SUMMARY | 2023-10-17 15:04 | XMS_ITS | Encounter Summary ---
Author Organization [facility] [place] [address] Care Team Providers Care Marketing Technology Specialist Name Role Phone Molina Herr MD Primary Care Provider [phone] Encounter Details Date Type Department Care Team (Late st Contact Info) Description 10/10/2023 Telephone Hematology and [place]cology [place] [phone] Belinda Peña PA [facility] [place] [address] Social History Tobacco Use Types Packs/Day Years [...] from your doctor or pharmacy? Sometimes 08/22/2023 [facility] Utilities Answer Date Recorded In the past 12 months has [employer], gas, oil, or water [employer] threatened to shut off services in your [...] time in the past 12 m [facility], were you homeless or living in [...] encounter Miscellaneous Notes * Telephone Encounter - Belinda Peña PA - 10/10/2023 2:03 PM EDTSummary: phone call LVM to check on Maldonado. Requested that he get labs drawn. Left call back number. Belinda Peña PA-C documented in this encounter Plan of Treatment Upcoming Encounters Date Type Department Care Team (Late st Contact Info) Description 10/27/2023 11:15 AM EDT Office Visit Palliative Medicine at [place] [address] Elly Alston MD [facility] DR HOSPICE [place] [address] 10/27/2023 1:00 PM EDT Office Visit Speech Therapy at [place] [address] Debra Franco, PICKING TABLE WORKER 11/03/2023 2:00 PM EDT Office Visit Speech Therapy at [place] [address] Debra Franco, PICKING TABLE WORKER 11/08/2023 2:30 PM EDT Appointment MRI at [place] [address] Navjot Grider MD [facility] DR [place] [address] 11/09/2023 1:45 PM EDT Office Visit Hematology and Oncology at [place] [address] Isabell Jacob MD [facility] [place] [address] 11/11/2023 10:30 AM EDT Office Visit Radiation Oncology at [place] [address] Nicki Sharpe MD [facility] [place] [address] 11/15/2023 10:00 AM EDT Office Visit Speech Therapy at [address] Debra Franco, PICKING TABLE WORKER 11/16/2023 9:00 AM EDT Office Visit Hematology and Oncology at [place] [address] Bisi Nam 11/22/2023 10:00 AM EDT Office Visit Speech Therapy [place] [address] Debra Franco, PICKING TABLE WORKER 11/30/2023 9:00 AM EDT Office Visit Hematology and [place]cology [place] [address] Bisi Nam 12/14/2023 9:00 AM EDT Office Visit Hematology and [place]cology [place] [address] Bisi Nam 12/28/2023 9:00 AM EDT Office Visit Hematology and [place]cology [place] [address] Bisi Nam documented as of this encounter Goals Goal Patient Goal Type Associated Problems Recent Progress Patient-Stated? Author Patient's specific desired goal: Patient Facing Action Plan Andrei Lee, [facility] Note: Goal(s): maintain quality of [...] on filedocumented in this encounter Care Teams Marketing Technology Specialist Relationship Specialty Start Date End Date Molina Herr MD [facility] [address] [place] [address] PCP - General 01/27/10 documented as of this encounter
--- OUTSIDE RECORDS SUMMARY | 2023-10-17 15:04 | XMS_ITS | Encounter Summary ---
[place] [address] Care Team Providers Care Elevator Service Mechanic Name Role Phone Molina Herr MD Primary Care Provider [phone] Reason for Visit * Reason Onset Date Comments Results 10/10/2023 Encounter Details Date Type Department Care Team (Late st Contact Info) Description 10/10/2023 Telephone Hematology [place] [address] Malgorzata Reynoso, CLIENT SERVICES SPECIALIST ROOM Results Social History Tobacco Use Types Packs/Day Years [...] from your doctor or pharmacy? Sometimes 08/22/2023 [facility] Utilities Answer Date Recorded In [...] any time in the past 12 m [facility], were you homeless or living in a snf (including now)? No 08/22/2023 IPV Inpatient Questions [...] Telephone Encounter - Malgorzata Reynoso RN - 10/10/2023 5:28 PM EDT Called labs to request plt count as >hour and no stat results available yet for CBC. Spoke w/Hugo in hematology who provided a preliminary read of 18,000 and stated he needed to read the slideprior to providing final. MURPHY Holguin notified. Plan for platelet transfusion this afternoon. Emma Callaway ) agreed to transfuse patient and requested line be placed prior to pt coming over. IV team contacted to place line. MURPHY Olmos staying w/ pt in [facility] clinic. Hugo called and reported final plt count of 18, L. MURPHY Peña notified. documented in this encounter Plan of Treatment Upcoming Encounters Date Type Department Care Team (Late st Contact Info) Description 10/27/2023 11:15 AM EDT Office Visit Palliative Medicine at [place] [address] Elly Alston MD [facility] DR HOSPICE AND [place] [address] 10/27/2023 1:00 PM EDT Office Visit Speech Therapy at [place] [address] Debra Franco, WORKERS COMPENSATION MANAGER 11/03/2023 2:00 PM EDT Office Visit Speech Therapy at [place] [address] Debra Franco, WORKERS COMPENSATION MANAGER 11/08/2023 2:30 PM EDT Appointment MRI at [place] [address] Navjot Grider MD [facility] DR HEMATOLOGY [place] [address] 11/09/2023 1:45 PM EDT Office Visit Hematology and Oncology at [place] [address] Isabell Jacob MD [facility] [place] [address] 11/11/2023 10:30 AM EDT Office Visit Radiation Oncology at [place] [address] Nicki Sharpe MD [facility] [place] [address] 11/15/2023 10:00 AM EDT Office [place] [address] Debra Franco, WORKERS COMPENSATION MANAGER 11/16/2023 9:00 AM EDT Office Visit Hematology [place] [address] Bisi Nam 11/22/2023 10:00 AM EDT Office [place] [address] Debra Franco SLP 11/30/2023 9:00 AM EDT Office Visit Hematology [place] [address] Bisi Nam 12/14/2023 9:00 AM EDT Office Visit Hematology [place] [address] Bisi Nam 12/28/2023 9:00 AM EDT Office Visit Hematology [place] [address] Bisi Nam documented as of this encounter [...] on filedocumented in this encounter Care Teams Elevator Service Mechanic Relationship Specialty Start Date End Date Molina Herr MD [facility] [address] [place] [address] PCP - General 01/27/10 documented as of this encounter
--- OUTSIDE RECORDS SUMMARY | 2023-10-17 15:04 | XMS_ITS | Encounter Summary ---
Author Organization [facility] [place] [address] Care Team Providers Care Practice Director Name Role Phone Molina Herr MD Primary Care Provider [phone] Encounter Details Date Type Department Care Team (Latest Contact Info) Description 10/11/2023 8:45 AM EDT - 10/11/2023 11:59 PM EDT Hospital Encounter Hematology [place] [phone] 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 use; Lymphocytopenia; Thrombocytopenia Discharge Disposition: Home Social History Tobacco Use [...] from your doctor or pharmacy? Sometimes 08/22/2023 [facility] Utilities Answer Date Recorded In the [...] any time in the past 12 m [facility], were you homeless or living in a halfway (including now)? No 08/22/2023 [facility] IPV Inpatient [...] 20 mg by mouth daily. 4 03/08/2014 [id number] c (SOURCE CF) 200-10 mcg-mg Chew Take [...] AM EDT Office Visit Palliative Medicine at [place] [address] Elly Alston MD [facility] HOSPICE AND [place] [address] 10/27/2023 1:00 PM EDT Office Visit Speech Therapy at [place] [address] Debra Franco, GRAIN WEIGHER 11/03/2023 2:00 PM EDT Office Visit Speech Therapy at [place] [address] Debra Franco, GRAIN WEIGHER 11/08/2023 2:30 PM EDT Appointment MRI at [place] [address] Navjot Grider MD [facility] HEMATOLOGY [place] [address] 11/09/2023 1:45 PM EDT Office Visit Hematology and Oncology at [place] [address] Isabell Jacob MD [facility] [place] [address] 11/11/2023 10:30 AM EDT Office Visit Radiation Oncology at [address] Nicki Sharpe MD [facility] DR RADIATION ONCOLOGY [place] [id number] 11/15/2023 10:00 AM EDT Office [place] [address] Debra Franco GRAIN WEIGHER 11/16/2023 9:00 AM EDT Office Visit Hematology [place] [address] Bisi Nam 11/22/2023 10:00 AM EDT Office [place] [address] Debra Franco GRAIN WEIGHER 11/30/2023 9:00 AM EDT Office Visit Hematology [place] [address] Bisi Nam 12/14/2023 9:00 AM EDT Office Visit Hematology [place] [address] Bisi Nam 12/28/2023 9:00 AM EDT Office Visit Hematology [place] [address] Bisi Nam documented as of this encounter Goals Goal Patient Goal Type Associated Problems Recent Progress Patient-Stated? Author Patient's specific desired goal: Patient Facing Action Plan Andrei Lee, [facility] Note: Goal(s): maintain quality of [...] Date/Time Associated Diagnosis Comments CBC (WITH DIFF) STAT 10/11/2023 11:44 AM EDT 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 use Lymphocytopenia Thrombocytopenia documented in this encounter Results * (ABNORMAL) CBC (with Diff) (10/11/2023 11:44 AM EDT) White Blood Cell 4.12 x10(3)/mc L 10/11/2023 12:[address] [facility] Red Blood Cell 3.93(L) 4.58 - 5.54 x10(6)/mc L 10/11/2023 12:[address] [facility] Hemoglobin 11.0(L) 13.7 - 16.5 g/dL 10/11/2023 12:[address] [facility] Hematocrit 34.6(L) 40.5 - 48.5 % 10/11/2023 12:[address] [facility] Mean Cell Volume 88.0 82.9 - 93.1 fL 10/11/2023 12:[address] [facility] Mean Cell Hemoglobin 28.0 27.5 - 32.1 pg 10/11/2023 12:[address] [facility] Mean Cell Hemoglobin Concentration 31.8(L) 32.0 - 35.7 g/dL 10/11/2023 12:[address] [facility] Platelet 54(L) 145 - 357 x10(3)/mc L 10/11/2023 12:[address] [facility] Mean Platelet Volume 10.2 7.6 - 12.9 fL 10/11/2023 12:[address] [facility] RDW Standard Deviation 54.8(H) 36.0 - 45.0 fL 10/11/2023 12:[address] [facility] RDW coefficient of variation 17.5(H) 11.4 - 13.8 % 10/11/2023 12:[address] [facility] NRBC% auto 0.0 % 10/11/2023 12:[address] [facility] NRBC Absolute 0.00 0.00 - 0.00 x10(3)/mc L 10/11/2023 12:[address] [facility] Neutrophil % 82.0 % 10/11/2023 12:22 PM EDT [facility] Neutrophil Absolute 3.38 1.70 - 6.10 x10(3)/mc L 10/11/2023 12:22 PM EDT [facility] Lymph % 9.5 % 10/11/2023 12:22 PM EDT [facility] Lymph Absolute 0.39(L) 0.90 - 3.20 x10(3)/mc L 10/11/2023 12:22 PM EDT [facility] Monocyte % 4.6 % 10/11/2023 12:22 PM EDT [facility] Monocyte Absolute 0.19(L) 0.30 - 0.90 x10(3)/mc L 10/11/2023 12:22 PM EDT [facility] Eos % 3.2 % 10/11/2023 12:22 PM EDT [facility] Eos Absolute 0.13 0.00 - 0.40 x10(3)/mc L 10/11/2023 12:22 PM EDT [facility] Basophil % 0.2 % 10/11/2023 12:22 PM EDT [facility] Baso Absolute 0.01 0.00 - 0.10 x10(3)/mc L 10/11/2023 12:22 PM EDT [facility] Immature Gran % 0.5 % 12:22 PM EDT [facility] Immature Gran Absolute 0.02 0.00 - 0.04 x10(3)/mc L 10/11/2023 12:22 PM EDT [facility] Blood VENOUS BLOOD SPECIMEN / Unknown Venipuncture / Unknown 10/11/2023 11:44 AM EDT 10/11/2023 11:44 AM EDT Isabell Jacob MD HEMATOLOGY ORDERABLE S [facility] [place] [address] documented in this encounter Visit Diagnoses Diagnosis 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 use Encounter for long-term (current) use of other medications Lymphocytopenia Thrombocytopenia Thrombocytopenia, unspecified documented in this encounter Care Teams Practice Director Relationship Specialty Start Date End Date Molina Herr MD [facility] [address] [place] [address] PCP - General 01/27/10 documented as of this encounter
--- OUTSIDE RECORDS SUMMARY | 2023-10-17 15:04 | XMS_ITS | Encounter Summary ---
Author Organization [facility] Address [facility] [place] [address] Care Team Providers Care Internal Controls Consultant Name Role Phone Molina Herr MD Primary Care Provider [phone] Encounter Details Date Type Department Care Team (Late st Contact Info) Description 10/07/2023 Notes Only [place] [address] Navjot Grider MD [facility] DR HEMATOLOGY [place] [address] Social History Tobacco Use Types Packs/Day Years [...] from your doctor or pharmacy? Sometimes 08/22/2023 [facility] Utilities Answer Date Recorded In [...] in the past 12 m [facility], were you homeless or living [...] as of this encounter Progress Notes * Navjot Grider MD - 10/07/2023 4:14 PM EDT Reason for Call : Low Platelet count I called patient and his . He is doing fine. No bleeding. No petechiae. I updated them about low platelet count 24K. We will repeat CBC on Tuesday, if count does not improve or goes down further, then we will plan platelet transfusion on Tuesday. I instrcuted over the weekend, if there is any kind of bleeding, then go to nearest hospital. I placed repeat CBC and one unit of platelet transfusion orders on Tuesday. Patient verbally consented for transfusion over the phone but consent can be obtained on Tuesday as well if transfusion is needed. I instructed patient do not leave cancer center on Tuesday without discussing his platelet count with our team. I will be away on Tuesday. But, please feel free to call for any questions. Thanks documented in this encounter Plan of Treatment Upcoming Encounters Date Type Department Care Team (Late st Contact Info) Description 10/27/2023 11:15 AM EDT Office Visit Palliative Medicine at [place] [address] Elly Alston MD [facility] HOSPICE [place] [address] 10/27/2023 1:00 PM EDT Office Visit Speech Therapy at [address] Debra Franco, JOINTER MACHINE 11/03/2023 2:00 PM EDT Office Visit Speech Therapy at [place] [phone] Debra Franco, JOINTER MACHINE 11/08/2023 2:30 PM EDT Appointment MRI at [place] [address] Navjot Grider MD [facility] [place] [address] 11/09/2023 1:45 PM EDT Office Visit Hematology and Oncology at [place] [phone] Isabell Jacob MD [facility] [place] [address] 11/11/2023 10:30 AM EDT Office Visit Radiation Oncology at [place] [phone] Nicki Sharpe MD [facility] [place] [address] 11/15/2023 10:00 AM EDT Office [place] [address] Debra Franco, JOINTER MACHINE 11/16/2023 9:00 AM EDT Office Visit Hematology [place] [address] Bisi Nam 11/22/2023 10:00 AM EDT Office [place] [address] Debra Frnaco, JOINTER MACHINE 11/30/2023 9:00 AM EDT Office Visit [place]ology [place] [address] Bisi Nam 12/14/2023 9:00 AM EDT Office Visit [place]ematology [place] [address] Bisi Nam 12/28/2023 9:00 AM EDT Office Visit [place]ematology [place] [address] Bisi Nam documented as of this encounter Goals Goal Patient Goal Type Associated Problems Recent Progress Patient-Stated? Author Patient's specific desired goal: Patient Facing Action Plan Andrei Lee, [facility] Note: Goal(s): maintain quality of life as much as possible Measured by: quality of life scale, ability to participate in activities which he enjoys and needs to do Time-frame: to be assessed at approximately the one year point by pharmacy, or sooner if patient asks to discuss documented as of this encounter Visit Diagnoses Not on filedocumented in this encounter Care Teams Internal Controls Consultant Relationship Specialty Start Date End Date Molina Herr MD [address] [address] [place] [address] PCP - General 01/27/10 documented as of this encounter
--- OUTSIDE RECORDS SUMMARY | 2023-10-17 15:04 | XMS_ITS | Encounter Summary ---
Author Organization [facility] Address [facility] [place] [address] Care Team Providers Care Merchandise For Resale Purchasing Agent Name Role Phone Molina Herr MD Primary Care Provider [phone] Encounter Details Date Type Department Care Team (Late st Contact Info) Description 10/11/2023 Orders Only Hematology [place] [address] Belinda Peña PA [facility] [place] [address] Lymphocytopenia (Primary Dx); 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 use; [...] from your doctor or pharmacy? Sometimes 08/22/2023 [facility] Utilities Answer Date Recorded In the [...] any time in the past 12 m [facility], were you homeless or living in a [...] AM EDT Office Visit [place] [address] Elly Alston MD [facility] HOSPICE AND [place] [address] 10/27/2023 1:00 PM EDT Office Visit Speech Therapy at [place] [phone] Debra Franco, NURSE EMERGENCY 11/03/2023 2:00 PM EDT Office Visit Speech Therapy at [place] [phone] Debra Franco, NURSE EMERGENCY 11/08/2023 2:30 [place] [address] Navjot Grider MD [facility] DR [place] [address] 11/09/2023 1:45 PM EDT Office Visit Hematology and Oncology at [place] [phone] Isabell Jacob MD [facility] [place] [address] 11/11/2023 10:30 AM EDT Office Visit Radiation Oncology at [place] [phone] Nicki Sharpe MD [facility] [place] [address] 11/15/2023 10:00 AM EDT Office Visit Speech Therapy at [place] [phone] Debra Franco, NURSE EMERGENCY 11/16/2023 9:00 AM EDT Office Visit Hematology [place] [address] Bisi Nam 11/22/2023 10:00 AM EDT Office [place] [address] Debra Franco, NURSE EMERGENCY 11/30/2023 9:00 AM EDT Office Visit Hematology [place] [address] Bisi Nam 12/14/2023 9:00 AM EDT Office Visit Hematology [place] [address] Bisi Nam 12/28/2023 9:00 AM EDT Office Visit Hematology [place] [address] Jenny Nambeth Gareth documented as of this encounter Goals Goal Patient Goal Type Associated Problems Recent Progress Patient-Stated? 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
--- OUTSIDE RECORDS SUMMARY | 2023-10-17 15:04 | XMS_ITS | Encounter Summary ---
Author Organization [facility] Address [facility] [place] [address] Care Team Providers Care Manager Editorial Name Role Phone Molina Herr MD Primary Care Provider [phone] Encounter Details Date Type Department Care Team (Late st Contact Info) Description 10/07/2023 Orders Only Hematology [place] [address] Navjot Grider MD [facility] [address] [place] [address] Thrombocytopenia Social History Tobacco Use Types Packs/Day Years [...] doctor or pharmacy? Sometimes 08/22/2023 [facility] Utilities Answer Date Recorded In the [...] any time in the past 12 m [facility], were you homeless or living in a longterm (including now)? No 08/22/2023 IPV Inpatient Questions [...] AM EDT Office Visit [place] [phone] Elly Alston MD [facility] DR HOSPICE [place] [address] 10/27/2023 1:00 PM EDT Office [place] [address] Debra Franco, STRAIGHTENING PRESS OPERATOR HELPER 11/03/2023 2:00 PM EDT Office Visit Speech Therapy at [place] [phone] Debra Franco, STRAIGHTENING PRESS OPERATOR HELPER 11/08/2023 2:30 PM EDT Appointment MRI at [place] [address] Navjot Grider MD [facility] DR [place] [address] 11/09/2023 1:45 PM EDT Office Visit Hematology and Oncology at [place] [phone] Isabell Jacob MD [facility] [place] [address] 11/11/2023 10:30 AM EDT Office Visit Radiation Oncology at [place] [phone] Nicki Sharpe MD [facility] [place] [address] 11/15/2023 10:00 AM EDT Office Visit [place] [address] Debra Franco, ROLANDO 11/16/2023 9:00 AM EDT Office Visit Hematology [place] [address] Bisi Nam 11/22/2023 10:00 AM EDT Office [place] [address] Debra Franco, RLOANDO 11/30/2023 9:00 AM EDT Office Visit Hematology [place] [phone] Bisi Nam 12/14/2023 9:00 AM EDT Office Visit Hematology [place] [address] Bisi Nam 12/28/2023 9:00 AM EDT Office Visit Hematology [place] [address] Bisi Nam documented as of this encounter Goals Goal Patient Goal Type Associated Problems Recent Progress Patient-Stated? Author Patient's specific desired goal: Patient Facing Action Plan Andrei Lee, [facility] Note: Goal(s): maintain quality of life as much as possible Measured by: quality of life scale, ability to participate in activities which he enjoys and needs to do Time-frame: to be assessed at approximately the one year point by pharmacy, or sooner if patient asks to discuss documented as of this encounter Results * Type and screen ([facility]) (10/10/2023 2:56 PM EDT) [facility] Type A POSITIVE 10/10/2023 4:59 PM EDT [facility] PATIENT HISTORY Unneccessary 10/10/2023 4:59 PM EDT [facility] Expires at 2359 on: 10-10-2023 10/10/2023 4:59 PM EDT [facility] ANTIBODY SCREEN AUTOMATED Negative 10/10/2023 4:59 PM EDT [facility] T&S only valid at [facility] 10/10/2023 4:59 PM EDT [facility] Blood VENOUS BLOOD SPECIMEN / Unknown IP Care Team Draw / Unknown 10/10/2023 2:56 PM EDT 10/10/2023 2:56 PM EDT Narrative [facility] - 10/10/2023 4:59 PM EDT This Type and Screen result is only valid at the [facility] Navjot Grider MD BLOOD BANK LAB ORDER JESSICA [facility] [place] [address] documented in this encounter Visit Diagnoses Diagnosis Thrombocytopenia Thrombocytopenia, unspecified documented in this encounter Care Teams Manager Editorial Relationship Specialty Start Date End Date Molina Herr MD [address] [place] [address] PCP - General 01/27/10 documented as of this encounter
--- OUTSIDE RECORDS SUMMARY | 2023-10-17 15:04 | XMS_ITS | Encounter Summary ---
Author Organization [facility] [address] Care Team Providers Care Inker Machine Name Role Phone Molina Herr MD Primary Care Provider [phone] Encounter Details Date Type Department Care Team (Latest Contact Info) Description 10/07/2023 Travel Social History Tobacco Use Types Packs/Day [...] from your doctor or pharmacy? Sometimes 08/22/2023 [facility] Utilities Answer Date Recorded In the past 12 months has [facility] [employer], gas, oil, or water [employer] threatened to shut off services in your [...] any time in the past 12 m [facility], were you homeless or living [...] AM EDT Office Visit Palliative [place] [address] Elly Alston MD [facility] DR HOSPICE [place] [address] 10/27/2023 1:00 PM EDT Office Visit [place] [address] Debra Franco, PADDER 11/03/2023 2:00 PM EDT Office Visit [place] [address] Debra Franco, PADDER 11/08/2023 2:30 PM EDT Appointment MRI at [place] [address] Navjot Grider MD [facility] DR HEMATOLOGY [place] [address] 11/09/2023 1:45 PM EDT Office Visit Hematology and Oncology at [address] Isabell Jacob MD [facility] [place] [address] 11/11/2023 10:30 AM EDT Office Visit Radiation Oncology at [address] Nicki Sharpe MD [facility] [place] [address] 11/15/2023 10:00 AM EDT Office Visit [place] [address] Debra Franco, ROLANDO 11/16/2023 9:00 AM EDT Office Visit Hematology [place] [address] Bisi Nam 11/22/2023 10:00 AM EDT Office Visit [place] [address] Debra Franco, ROLANDO 11/30/2023 9:00 AM EDT Office Visit Hematology [place] [address] Bisi Nam 12/14/2023 9:00 AM EDT Office Visit Hematology [place] [address] Bisi Nam 12/28/2023 9:00 AM EDT Office Visit Hematology [place] [address] Bisi Nam documented as of this encounter [...] on filedocumented in this encounter Care Teams Inker Machine Relationship Specialty Start Date End Date Molina Herr MD [facility] [address] [place] [address] PCP - General 01/27/10 documented as of this encounter
--- OUTSIDE RECORDS SUMMARY | 2023-10-17 15:04 | XMS_ITS | Encounter Summary ---
Author Organization [facility] [place] [address] Care Team Providers Care Sort Worker Name Role Phone Molina Herr MD Primary Care Provider [phone] Encounter Details Date Type Department Care Team (Latest Contact Info) Description 10/05/2023 Travel Social History Tobacco Use Types Packs/Day [...] from your doctor or pharmacy? Sometimes 08/22/2023 [facility] Utilities Answer Date Recorded In the past 12 months has [facility] [employer], gas, oil, or water [employer] threatened to shut off services in your [...] any time in the past 12 m [facility], were you homeless or living in a correction (including now)? No 08/22/2023 IPV Inpatient Questions [...] AM EDT Office Visit [place] [address] Elly Alston MD [facility] DR HOSPICE [place] [address] 10/27/2023 1:00 PM EDT Office [place] [address] Debra Franco, DUST PULLER 11/03/2023 2:00 PM EDT Office [place] [address] Debra Franco, DUST PULLER 11/08/2023 2:30 PM EDT Appointment MRI at [place] [address] Navjot Grider MD [facility] DR [place] [address] 11/09/2023 1:45 PM EDT Office Visit Hematology and Oncology at [address] Isabell Jacob MD [facility] [place] [address] 11/11/2023 10:30 AM EDT Office Visit Radiation Oncology at [address] Nicki Sharpe MD [facility] [place] [address] 11/15/2023 10:00 AM EDT Office [place] [address] Debra Franco, ROLANDO 11/16/2023 9:00 AM EDT Office Visit Hematology [place] [address] Bisi Nam 11/22/2023 10:00 AM EDT Office [place] [address] Debra Franco, ROLANDO 11/30/2023 9:00 AM EDT Office Visit Hematology [place] [address] Bisi Nam 12/14/2023 9:00 AM EDT Office Visit Hematology [place] [address] Bisi Nam 12/28/2023 9:00 AM EDT Office Visit Hematology [place] [address] Bisi Nam documented as of this encounter Goals Goal Patient Goal Type Associated Problems Recent Progress Patient-Stated? Author Patient's specific desired goal: Patient Facing Action Plan nAdrei Lee, [facility] Note: Goal(s): maintain quality of [...] on filedocumented in this encounter Care Teams Sort Worker Relationship Specialty Start Date End Date Molina Herr MD [facility] [address] [place] [address] PCP - General 01/27/10 documented as of this encounter
--- OUTSIDE RECORDS SUMMARY | 2023-10-17 15:04 | XMS_ITS | Encounter Summary ---
Author Organization [facility] Address [facility] [place] [address] Care Team Providers Care Restoration Silversmith Name Role Phone Molina Herr MD Primary Care Provider [phone] Encounter Details Date Type Department Care Team (Late st Contact Info) Description 10/10/2023 Orders Only Hematology [place] [address] Belinda Peña PA [facility] [place] [address] Thrombocytopenia (Primary Dx); 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 use [...] from your doctor or pharmacy? Sometimes 08/22/2023 [facility] Utilities Answer Date Recorded In the [...] time in the past 12 m [facility], were you homeless or living in a penitentiary (including now)? No 08/22/2023 IPV Inpatient Questions [...] AM EDT Office [place] [address] Elly Alston MD [facility] HOSPICE AND [place] [address] 10/27/2023 1:00 PM EDT Office [place] [address] Debra Franco, ROLANDO 11/03/2023 2:00 PM EDT Office [place] [address] Debra Franco, PRODUCTION CHECKER 11/08/2023 2:30 PM EDT Appointment MRI at [place] [phone] Navjot Grider MD [facility] DR HEMATOLOGY [place] [address] 11/09/2023 1:45 PM EDT Office Visit Hematology and Oncology at [place] [phone] Isabell Jacob MD [facility] [place] [place] [address] 11/11/2023 10:30 AM EDT Office Visit Radiation Oncology at [place] [phone] Nicki Sharpe MD [facility] [place] [address] 11/15/2023 10:00 AM EDT Office [place] [address] Debra Franco, PRODUCTION CHECKER 11/16/2023 9:00 AM EDT Office Visit Hematology [place] [address] Bisi Nam 11/22/2023 10:00 AM EDT Office [place] [address] Debra Franco, PRODUCTION CHECKER 11/30/2023 9:00 AM EDT Office Visit Hematology [place] [phone] Bisi Nam 12/14/2023 9:00 AM EDT Office Visit [place]emat[place] [address] Bisi Nam 12/28/2023 9:00 AM EDT Office Visit [place] [address] Bisi Nam documented as of this encounter [...] documented as of this encounter Results * (ABNORMAL) CBC (with Diff) (10/10/2023 2:56 PM EDT) White Blood Cell 3.81 x10(3)/mc L 10/10/2023 4:33 PM EDT [facility] Red Blood Cell 3.98(L) 4.58 - 5.54 x10(6)/mc L 10/10/2023 4:33 PM EDT [facility] Hemoglobin 11.1(L) 13.7 - 16.5 g/dL 10/10/2023 4:33 PM EDT [facility] Hematocrit 35.0(L) 40.5 - 48.5 % 10/10/2023 4:33 PM EDT [facility] Mean Cell Volume 87.9 82.9 - 93.1 fL 10/10/2023 4:33 PM EDT [facility] Mean Cell Hemoglobin 27.9 27.5 - 32.1 pg 10/10/2023 4:[facility] Mean Cell Hemoglobin Concentration 31.7(L) 32.0 - 35.7 g/dL 10/10/2023 4:33 PM [facility] Platelet 18(LLL) 145 - 357 x10(3)/mc L 10/10/2023 4:33 PM [facility] Mean Platelet Volume 8.3 7.6 - 12.9 fL 10/10/2023 4:33 PM [facility] RDW Standard Deviation 54.0(H) 36.0 - 45.0 fL 10/10/2023 4:33 PM [facility] RDW coefficient of variation 17.3(H) 11.4 - 13.8 % 10/10/2023 4:33 PM [facility] NRBC% auto 0.0 % 10/10/2023 4:33 PM [facility] NRBC Absolute 0.00 0.00 - 0.00 x10(3)/mc L 10/10/2023 4:33 PM [facility] Neutrophil % 77.6 % 10/10/2023 4:33 PM [facility] Neutrophil Absolute 2.96 1.70 - 6.10 x10(3)/mc L 10/10/2023 4:33 PM [facility] Lymph % 12.9 % 10/10/2023 4:33 PM [facility] Lymph Absolute 0.49(L) 0.90 - 3.20 x10(3)/mc L 10/10/2023 4:33 PM [facility] Monocyte % 6.6 % 10/10/2023 4:33 PM [facility] Monocyte Absolute 0.25(L) 0.30 - 0.90 x10(3)/mc L 10/10/2023 4:33 PM [facility] Eos % 2.1 % 10/10/2023 4:33 PM [facility] Eos Absolute 0.08 0.00 - 0.40 x10(3)/mc L 10/10/2023 4:33 PM EDT [facility] Basophil % 0.3 % 10/10/2023 4:33 PM EDT [facility] Baso Absolute 0.01 0.00 - 0.10 x10(3)/mc L 10/10/2023 4:33 PM EDT [facility] Immature Gran % 0.5 % 4:33 PM EDT [facility] Immature Gran Absolute 0.02 0.00 - 0.04 x10(3)/mc L 10/10/2023 4:33 PM EDT [facility] Blood VENOUS BLOOD SPECIMEN / Unknown IP Care Team Draw / Unknown 10/10/2023 2:56 PM EDT 10/10/2023 2:56 PM EDT Navjot Grider MD HEMATOLOGY ORDERABLE S Performing Organization Address City/State/[facility] Co de Phone Number [facility] [place] [address] documented in this encounter Visit Diagnoses Diagnosis Thrombocytopenia- Primary Thrombocytopenia, unspecified 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 use Encounter for long-term (current) use of other medications documented in this encounter Care Teams Restoration Silversmith Relationship Specialty Start Date End Date Molina Herr MD [address] [place] [address] PCP - General 01/27/10 documented as of this encounter
--- OUTSIDE RECORDS SUMMARY | 2023-10-17 15:04 | XMS_ITS | Encounter Summary ---
Author Organization [facility] Address [facility] [place] [address] Care Team Providers Care Brokerage Branch Manager Name Role Phone Molina Herr MD Primary Care Provider Encounter Details Date Type Department Care Team (Late st Contact Info) Description 10/10/2023 Orders Only Hematology [place] [address] Belinda Peña PA [facility] [place] [address] Thrombocytopenia (Primary Dx); 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 use [...] from your doctor or pharmacy? Sometimes 08/22/2023 [facility] Utilities Answer Date Recorded In the [...] time in the past 12 m [facility], were you homeless or living in a senior living (including now)? No 08/22/2023 IPV Inpatient Questions [...] AM EDT Office Visit [place] [address] Elly Alston MD [facility] DR HOSPICE [place] [address] 10/27/2023 1:00 PM EDT Office Visit [place] [address] Debra Franco, ROLANDO 11/03/2023 2:00 PM EDT Office Visit [place] [address] Debra Franco, UNIVERSITY ADMINISTRATOR 11/08/2023 2:30 PM EDT Appointment MRI at [place] [phone] Navjot Grider MD [facility] DR [place] [address] 11/09/2023 1:45 PM EDT Office Visit Hematology and Oncology at [place] [phone] Isabell Jacob MD [facility] [place] [address] 11/11/2023 10:30 AM EDT Office Visit Radiation Oncology at [place] [phone] Nicki Sharpe MD [facility] [place] [address] 11/15/2023 10:00 AM EDT Office Visit [place] [address] Debra Franco, UNIVERSITY ADMINISTRATOR 11/16/2023 9:00 AM EDT Office Visit Hematology [place] [address] Bisi Nam 11/22/2023 10:00 AM EDT Office Visit [place] [address] Debra Franco, UNIVERSITY ADMINISTRATOR 11/30/2023 9:00 AM EDT Office Visit Hematology [place] [address] Bisi Nam Gareth 12/14/2023 9:00 AM EDT Office Visit Hematology [place] [address] Bisi Nam Gareth 12/28/2023 9:00 AM EDT Office Visit Hematology [place] [address] [place] Namjoyce Servin documented as of this encounter Goals Goal Patient Goal Type Associated Problems Recent Progress Patient-Stated? Author Patient's specific desired goal: Patient Facing Action Plan Andrei Lee, [facility] Note: Goal(s): maintain quality of life [...] medications documented in this encounter Care Teams Brokerage Branch Manager Relationship Specialty Start Date End Date Molina Herr MD [address] [place] [address] PCP - General 01/27/10 documented as of this encounter
--- OUTSIDE RECORDS SUMMARY | 2023-10-17 15:04 | XMS_ITS | Encounter Summary ---
Author Organization [facility] Address [facility] [place] [address] Care Team Providers Care Injection Moulding Machine Operator Name Role Phone Molina Herr MD Primary Care Provider [phone] Encounter Details Date Type Department Care Team (Late st Contact Info) Description 10/07/2023 Orders Only [place]ematology [place] [address] Navjot Grider MD [facility] DR HEMATOLOGY [place] [address] Thrombocytopenia Social History Tobacco Use Types Packs/Day [...] in the past 12 m [facility], were you homeless or living in a nursing home (including now)? No 08/22/2023 IPV Inpatient [...] AM EDT Office [place] [phone] Elly Alston MD [facility] DR HOSPICE AND [place] [address] 10/27/2023 1:00 PM EDT Office [place] [address] Debra Franco, PRE K SPECIAL EDUCATION TEACHER 11/03/2023 2:00 PM EDT Office Visit Speech Therapy at [place] [phone] Debra Franco, PRE K SPECIAL EDUCATION TEACHER 11/08/2023 2:30 PM EDT Appointment MRI at [place] [address] Navjot Grider MD [facility] [address] [place] [address] 11/09/2023 1:45 PM EDT Office Visit Hematology and Oncology at [place] [phone] Isabell Jacob MD [facility] [place] [address] 11/11/2023 10:30 AM EDT Office Visit Radiation Oncology at [place] [phone] Nicki Sharpe MD [facility] [place] [address] 11/15/2023 10:00 AM EDT Office [place] [address] Debra Franco, ROLANDO 11/16/2023 9:00 AM EDT Office Visit Hematology [place] [address] Bisi Nam 11/22/2023 10:00 AM EDT Office [place] [address] Debra Franco, ROLANDO 11/30/2023 9:00 AM EDT Office Visit Hematology [place] [address] Bisi Nam 12/14/2023 9:00 AM EDT Office Visit [place]ematology [place] [address] Bisi Nam 12/28/2023 9:00 AM EDT Office Visit [place]ematology [place] [address] Bisi Nam documented as of this encounter Goals Goal Patient Goal Type Associated Problems Recent Progress Patient-Stated? Author Patient's specific desired goal: Patient Facing Action Plan Andrei Lee, [facility] Note: Goal(s): maintain quality of [...] unspecified documented in this encounter Care Teams Injection Moulding Machine Operator Relationship Specialty Start Date End Date Molina Herr MD [address] [place] [address] PCP - General 01/27/10 documented as of this encounter
--- OUTSIDE RECORDS SUMMARY | 2023-10-17 15:04 | XMS_ITS | Encounter Summary ---
Author Organization [facility] Address [facility] [place] [address] Care Team Providers Care Taxi Servicer Name Role Phone Molina Herr MD Primary Care Provider [phone] Encounter Details Date Type Department Care Team (Late st Contact Info) Description 10/11/2023 Orders Only Hematology [place] [address] Belinda Peña PA [facility] [place] [address] 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 use (Primary Dx); Lymphocytopenia; Thrombocytopenia Social History Tobacco Use Types Packs/Day [...] your doctor or pharmacy? Sometimes 08/22/[address] [facility] Utilities Answer Date Recorded In the [...] any time in the past 12 m [facility], were you homeless or [...] AM EDT Office Visit [place] [address] Elly Alston MD [facility] HOSPICE [place] [address] 10/27/2023 1:00 PM EDT Office Visit Speech Therapy at [place] [phone] Debra Franco, ROLANDO 11/03/2023 2:00 PM EDT Office Visit Speech Therapy at [place] [phone] Debra Franco, LICENSED OCCUPATIONAL THERAPY ASSISTANT 11/08/2023 2:30 PM EDT Appointment MRI at [address] Navjot Grider MD [facility] DR HEMATOLOGY [place] [address] 11/09/2023 1:45 PM EDT Office Visit [place]ematology [place] [address] Isabell Jacob MD [facility] [place] [address] 11/11/2023 10:30 AM EDT Office Visit Radiation Oncology at [place] [phone] Nicki Sharpe MD [facility] [address] [place] [address] 11/15/2023 10:00 AM EDT Office [place] [address] Debra Franco, LICENSED OCCUPATIONAL THERAPY ASSISTANT 11/16/2023 9:00 AM EDT Office Visit Hematology [place] [address] Bisi Nam 11/22/2023 10:00 AM EDT Office Visit Speech Therapy at [place] [phone] Debra Franco, LICENSED OCCUPATIONAL THERAPY ASSISTANT 11/30/2023 9:00 AM EDT Office Visit Hematology [place] [address] Bisi Nam Gareth 12/14/2023 9:00 AM EDT Office Visit [facility] [place] [address] Bisi Nam Gareth 12/28/2023 9:00 AM EDT Office Visit Hematology and Oncology at [facility] [place] [address] Cyril, Bisi Servin documented as of this encounter Goals Goal Patient Goal Type Associated Problems Recent Progress Patient-Stated? Author Patient's specific desired goal: Patient Facing Action Plan Andrei Lee, [facility] Note: Goal(s): maintain quality of life as [...] Cell 4.12 x10(3)/mc L 10/11/2023 12:22 PM EDT [facility] Red Blood Cell 3.93(L) 4.58 - 5.54 x10(6)/mc L 10/11/2023 12:22 PM T [facility] Hemoglobin 11.0(L) 13.7 - 16.5 g/dL 10/11/2023 12:22 PM T [facility] Hematocrit 34.6(L) 40.5 - 48.5 % 10/11/2023 12:22 PM EDT [facility] Mean Cell Volume 88.0 82.9 - 93.1 fL 10/11/2023 12:22 PM EDT [facility] Mean Cell Hemoglobin 28.0 27.5 - 32.1 pg 10/11/2023 12:22 PM EDT [facility] Mean Cell Hemoglobin Concentration 31.8(L) 32.0 - 35.7 g/dL 10/11/2023 12:22 PM [facility] Platelet 54(L) 145 - 357 x10(3)/mc L 10/11/2023 12:22 PM [facility] Mean Platelet Volume 10.2 7.6 - 12.9 fL 10/11/2023 12:22 PM [facility] RDW Standard Deviation 54.8(H) 36.0 - 45.0 fL 10/11/2023 12:22 PM [facility] RDW coefficient of variation 17.5(H) 11.4 - 13.8 % 10/11/2023 12:22 PM [facility] NRBC% auto 0.0 % 10/11/2023 12:22 PM [facility] NRBC Absolute 0.00 0.00 - 0.00 x10(3)/mc L 10/11/2023 12:22 PM [facility] Neutrophil % 82.0 % 10/11/2023 12:22 PM [facility] Neutrophil Absolute 3.38 1.70 - 6.10 x10(3)/mc L 10/11/2023 12:22 PM [facility] Lymph % 9.5 % 10/11/2023 12:22 PM [facility] Lymph Absolute 0.39(L) 0.90 - 3.20 x10(3)/mc L 10/11/2023 12:22 PM [facility] Monocyte % 4.6 % 10/11/2023 12:22 PM [facility] Monocyte Absolute 0.19(L) 0.30 - 0.90 x10(3)/mc L 10/11/2023 12:22 PM [facility] Eos % 3.2 % 10/11/2023 12:22 PM [facility] Eos Absolute 0.13 0.00 - 0.40 x10(3)/mc L 10/11/2023 12:22 PM EDT [facility] Basophil % 0.2 % 10/11/2023 12:22 PM EDT [facility] Baso Absolute 0.01 0.00 - 0.10 x10(3)/mc L 10/11/2023 12:22 PM EDT [facility] Immature Gran % 0.5 % 12:22 PM EDT [facility] Immature Gran Absolute 0.02 0.00 - 0.04 x10(3)/mc L 10/11/2023 12:22 PM EDT [facility] Blood VENOUS BLOOD SPECIMEN / Unknown Venipuncture / Unknown 10/11/2023 11:44 AM EDT 10/11/2023 11:44 AM EDT Isabell Jacob MD HEMATOLOGY ORDERABLE S Performing Organization Address City/State/[facility] Co de Phone Number [facility] [place] [address] documented in this encounter Visit Diagnoses Diagnosis 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 use- Primary Encounter for long-term (current) use of other medications Lymphocytopenia Thrombocytopenia Thrombocytopenia, unspecified documented in this encounter Care Teams Taxi Servicer Relationship Specialty Start Date End Date Molina Herr MD [address] [place] [address] PCP - General 01/27/10 documented as of this encounter
--- OUTSIDE RECORDS SUMMARY | 2023-10-17 15:04 | XMS_ITS | Encounter Summary ---
Author Organization [facility] [place] [address] Care Team Providers Care Director Of Compensation Name Role Phone Molina Herr MD Primary Care Provider [phone] Encounter Details Date Type Department Care Team (Latest Contact Info) Description 10/12/2023 Travel Social History Tobacco Use Types Packs/Day [...] from your doctor or pharmacy? Sometimes 08/22/2023 [facility] Utilities Answer Date Recorded In the past 12 months has [facility] [employer], gas, oil, or water [employer] threatened to shut off services in your [...] any time in the past 12 m [facility], were you homeless or living [...] AM EDT Office [place] [address] Elly Alston MD [facility] DR HOSPICE AND [place] [address] 10/27/2023 1:00 PM EDT Office [place] [address] Debra Franco, BLADE BALANCER 11/03/2023 2:00 PM EDT Office [place] [address] Debra Franco, BLADE BALANCER 11/08/2023 2:30 PM EDT Appointment MRI at [place] [address] Navjot Grider MD [facility] DR HEMATOLOGY [place] [address] 11/09/2023 1:45 PM EDT Office Visit Hematology and Oncology at [address] Isabell Jacob MD [facility] [place] [address] 11/11/2023 10:30 AM EDT Office Visit Radiation Oncology at [address]1000 Nicki Sharpe MD [facility] [place] [address] 11/15/2023 10:00 AM EDT Office [place] [address] Debra Franco, ROLANDO 11/16/2023 9:00 AM EDT Office Visit Hematology [place] [address] Bisi Nam 11/22/2023 10:00 AM EDT Office [place] [address] Debra Franco, ROLANDO 11/30/2023 9:00 AM EDT Office Visit Hematology [place] [address] Bisi Nam 12/14/2023 9:00 AM EDT Office Visit Hematology [place] [address] Bisi Nam 12/28/2023 9:00 AM EDT Office Visit Hematology [place] [address] Bisi Nam documented as of this encounter Goals Goal Patient Goal Type Associated Problems Recent Progress Patient-Stated? Author Patient's specific desired goal: Patient Facing Action Plan Andrei Lee, [facility] Note: Goal(s): [...] on filedocumented in this encounter Care Teams Director Of Compensation Relationship Specialty Start Date End Date Molina Herr MD [facility] [address] [place] [address] PCP - General 01/27/10 documented as of this encounter
--- OUTSIDE RECORDS SUMMARY | 2023-10-17 15:04 | XMS_ITS | Encounter Summary ---
Author Organization [facility] Address [facility] [place] [address] Care Team Providers Care Pulmonology Physician Name Role Phone Molina Herr MD Primary Care Provider [phone] Encounter Details Date Type Department Care Team (Late st Contact Info) Description 10/12/2023 8:00 AM EDT Notes [place] [address] Nicki Sharpe MD [facility] [place] [address] Arrived Social History Tobacco Use Types Packs/Day Years [...] from your doctor or pharmacy? Sometimes 08/22/2023 [facility] Utilities Answer Date Recorded In [...] time in the past 12 m [facility], were you homeless or living in a custodial (including now)? No 08/22/2023 IPV Inpatient Questions [...] AM EDT Office [place] [address] Elly Alston MD [facility] DR HOSPICE [place] [address] 10/27/2023 1:00 PM EDT Office [place] [address] Debra Franco, BALLAST REGULATOR OPERATOR 11/03/2023 2:00 PM EDT Office Visit Speech Therapy at [place] [phone] Debra Franco, BALLAST REGULATOR OPERATOR 11/08/2023 2:30 PM EDT Appointment MRI at [address]1000 Navjot Grider MD [facility] [place] [address] 11/09/2023 1:45 PM EDT Office Visit Hematology and Oncology at [place] [phone] Isabell Jacob MD [facility] [place] [address] 11/11/2023 10:30 AM EDT Office Visit Radiation Oncology at [place] [phone] Nicki Sharpe MD [facility] [place] [address] 11/15/2023 10:00 AM EDT Office [place] [address] Debra Franco, BALLAST REGULATOR OPERATOR 11/16/2023 9:00 AM EDT Office Visit [place] [address] Bisi Nam 11/22/2023 10:00 AM EDT Office [place] [address] Debra Franco, ROLANDO 11/30/2023 9:00 AM EDT Office Visit [place] [address] Bisi Nam 12/14/2023 9:00 AM EDT Office Visit [place] [address] Bisi Nam 12/28/2023 9:00 AM EDT Office Visit [place] [address] Bisi Nam documented as of this encounter Goals Goal Patient Goal Type Associated Problems Recent Progress Patient-Stated? Author Patient's specific desired goal: Patient Facing Action Plan No Andrei Egan, [facility] Note: Goal(s): maintain quality [...] on filedocumented in this encounter Care Teams Pulmonology Physician Relationship Specialty Start Date End Date Molina Herr MD [facility] [address] [place] [address] PCP - General 01/27/10 documented as of this encounter
--- OUTSIDE RECORDS SUMMARY | 2023-10-17 15:04 | XMS_ITS | Encounter Summary ---
[place] [address] Care Team Providers Care Optical Effects Line Up Person Name Role Phone Molina Herr MD Primary Care Provider [phone] Encounter Details Date Type Department Care Team (Latest Contact Info) Description 10/10/2023 5:46 PM EDT - 10/10/2023 11:59 PM EDT Hospital Encounter Hematology Oncology Level 1 [place] [address] Thrombocytopenia Discharge Disposition: Home Social History Tobacco [...] from your doctor or pharmacy? Sometimes 08/22/2023 [facility] Utilities Answer Date Recorded In the [...] any time in the past 12 m [facility], were you homeless or living [...] Sign Reading Time Taken Comments Blood Pressure 113/73 10/10/2023 7:15 PM EDT Pulse 71 10/10/2023 7:15 PM EDT Temperature 36.5 ??C (97.7 ??F) 10/10/2023 7:15 PM ED T Respiratory Rate 18 10/10/2023 7:15 PM EDT Oxygen Saturation 99% 10/10/2023 7:15 PM EDT Inhaled Oxygen Concentration - - Weight - - Height - - Body Mass Index - - documented in this encounter Medications at Time of Discharge Medication Sig Dispensed Refills Start Date End Date dexAMETHasone (Decadron) 1 mg tabletIndications: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 riboflavin, Vitamin B2, (Vitamin B2) 100 mg tablet Take by mouth. 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 30 tablet 09/15/2023 temozolomide (Temodar) 5 mg capsuleIndications:Gl ioblastoma of temporal lobe Take 1 capsule (5 mg) with 1 other temozolomide prescription for 145 mg total by mouth daily. Take on an empty stomach. Call clinic before/prior to starting medication/script. 21 capsule 09/05/2023 temozolomide (Temodar) 140 mg capsuleIndications:Gl ioblastoma of temporal lobe Take 1 capsule (140 mg) with 1 other temozolomide prescription for 145 mg total by mouth daily. Take on an empty stomach. Call clinic before/prior to starting medication/script. 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 4 03/08/2014 [id number]-VJ-[id number] (SOURCE CF) 200-10 mcg-mg Chew Take 1 tablet by mouth daily. 08/04/2010 levothyroxine (SYNTHROID) 25 mcg tablet 25MCG = 1 Tablet(s), PO, Once daily 09/27/2007 atorvastatin (LIPITOR) 10 mg tablet Take 20 mg by mouth. 09/27/2007 documented as of this encounter Progress Notes * Gianna Kennedy RN - 10/10/2023 7:00 PM EDT Patient is here for transfusion of 1 Unit of Platelets. Prior to transfusion initiation, RN educated patient regarding signs and symptoms of a transfusion reaction as follows: Fever, chills/rigors, nausea/vomiting, hypotension, bloody or dark urine, cough, dyspnea, SOB, wheezing, hypoxemia, decreased O2 saturations, back or flank pain, headache, infusion site pain. Directed patient to alert staff right away if beginning to experience any of these signs/symptoms. Patient verbalized understanding. Patient tolerated transfusion with out issue signs or symptoms of complication. RN directed them to call clinic or hospital if any listed signs/symptoms develop within the next 24hours, or go to the emergency department if more urgent care is needed. Patient verbalized understanding. documented in this encounter Plan of Treatment Upcoming Encounters Date Type Department Care Team (Late st Contact Info) Description 10/27/2023 11:15 AM EDT Office [place] [phone] Elly Alston MD [facility] HOSPICE AND [place] [address] 10/27/2023 1:00 PM EDT Office [place] [phone] Debra Franco, ROLANDO 11/03/2023 2:00 PM EDT Office Visit Speech Therapy at [address] Debra Franco, RADIOISOTOPE TECHNOLOGIST 11/08/2023 2:30 PM EDT Appointment MRI at [place] [address] Navjot Grider MD [facility] [address] HEMATOLOGY [place] [address] 11/09/2023 1:45 PM EDT Office Visit Hematology and Oncology at [place] [address] Isabell Jacob MD [facility] [place] [place] [address] 11/11/2023 10:30 AM EDT Office Visit Radiation Oncology at [address] Nicki Sharpe MD [facility] [place] [address] 11/15/2023 10:00 AM EDT Office Visit Speech Therapy at [place] [phone] Debra Franco, ROLANDO 11/16/2023 9:00 AM EDT Office Visit Hematology [place] [address] Bisi Nam 11/22/2023 10:00 AM EDT Office [place] [address] Debra Franco, ROLANDO 11/30/2023 9:00 AM EDT Office Visit Hematology [place] [address] Bisi Nam 12/14/2023 9:00 AM EDT Office Visit Hematology [place] [address] Bisi Nam 12/28/2023 9:00 AM EDT Office Visit Hematology [place] [address] Bisi Nam documented as of this encounter Goals Goal Patient Goal Type Associated Problems Recent Progress Patient-Stated? Author Patient's specific desired goal: Patient Facing Action Plan Andrei Lee [facility] Note: Goal(s): maintain quality of life as much as possible Measured by: quality of life scale, ability to participate in activities which he enjoys and needs to do Time-frame: to be assessed at approximately the one year point by pharmacy, or sooner if patient asks to discuss documented as of this encounter Procedures Procedure Name Priority Date/Time Associated Diagnosis Comments HC TR PSLD PLT, PHERESIS, IRR Routine 10/11/2023 6:49 AM EDT Thrombocytopenia TRANSFUSE 1 UNIT PLATELET PHERESIS Routine 10/10/2023 6:09 PM EDT Thrombocytopenia LAB SCAN 10/10/2023 12:00 AM EDT documented in this encounter Results * Prepare Platelets, Apheresis (10/11/2023 6:49 AM EDT) Status Information Transfused [facility] Product Identification [id number] [facility] Unit Number [id number] [facility] Product Code [id number] [facility] Unit Blood Type APOS [facility] Specimen Expiration Date [id number] [facility] Volulme 264 [facility] Issue Date / Time [id number] [facility] Blood VENOUS BLOOD SPECIMEN / Unknown 10/10/2023 5:46 PM EDT Navjot Grider MD BLOOD BANK PRODUCT O RDERABLES [facility] [place] [address] * Transfuse 1 unit platelets, apheresis (10/10/2023 7:31 PM EDT) Navjot Grider MD NURSING TREATMENT OR DERABLES - BLOOD ADMIN * Transfuse 1 unit platelets, apheresis (10/10/2023 7:31 PM EDT) Navjot Grider MD NURSING TREATMENT OR DERABLES - BLOOD ADMIN * Scan Doc: Lab (10/10/2023 12:00 AM EDT) Narrative 10/10/2023 12:00 AM EDT Ordered by an unspecified provider. Scanning Provider MEDIA MGR SCAN EXT O RDR/RSLT documented in this encounter Visit Diagnoses Diagnosis Thrombocytopenia Thrombocytopenia, unspecified documented in this encounter Care Teams Optical Effects Line Up Person Relationship Specialty Start Date End Date Molina Herr MD [address] [place] [address] PCP - General 01/27/10 documented as of this encounter
--- OUTSIDE RECORDS SUMMARY | 2023-10-17 15:04 | XMS_ITS | Encounter Summary ---
[place] [address] Care Team Providers Care Brake Lining Curer Name Role Phone Molina Herr MD Primary Care Provider [phone] Encounter Details Date Type Department Care Team (Latest Contact Info) Description 10/10/2023 2:30 PM EDT - 10/10/2023 5:45 PM EDT Hospital Encounter Hematology [place] [phone] Thrombocytopenia; 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 use Discharge Disposition: Home Social History Tobacco Use [...] from your doctor or pharmacy? Sometimes 08/22/2023 [facility] Utilities Answer Date Recorded In [...] any time in the past 12 m [facility], were you homeless or living in a [facility] (including now)? No 08/22/2023 [facility] IPV Inpatient [...] 20 mg by mouth daily. 4 03/08/2014 fjsujrinmjzai-[id number]-rvue (SOURCE CF) 200-10 mcg-mg Chew Take 1 [...] AM EDT Office Visit Palliative Medicine at [place] [address] Elly Alston MD [facility] [address] HOSPICE [place] [address] 10/27/2023 1:00 PM EDT Office Visit Speech Therapy at [place] [address] Debra Franco, FOUNDATION DRILL OPERATOR 11/03/2023 2:00 PM EDT Office Visit Speech Therapy at [place] [address] Debra Franco, FOUNDATION DRILL OPERATOR 11/08/2023 2:30 PM EDT Appointment MRI at [place] [address] Navjot Grider MD [facility] [address] [place] [address] 11/09/2023 1:45 PM EDT Office Visit Hematology and Oncology at [place] [address] Isabell Jacob MD [facility] [place] [address] 11/11/2023 10:30 AM EDT Office Visit Radiation Oncology at [place] [address] Nicki Sharpe MD [facility] [address] 11/15/2023 10:00 AM EDT Office Visit Speech Therapy at [address] Debra Franco SLP 11/16/2023 9:00 AM EDT Office Visit Hematology [place] [address] Bisi Nam 11/22/2023 10:00 AM EDT Office [place] [address] Debra Franco SLP 11/30/2023 9:00 AM EDT Office Visit Hematology [place] [address] Bisi Nam 12/14/2023 9:00 AM EDT Office Visit Hematology [place] [address] Jenny Nambejoyce Servin 12/28/2023 9:00 AM EDT Office Visit Hematology [place] [address] Bisi Nam documented as of this encounter Goals Goal Patient Goal Type Associated Problems Recent Progress Patient-Stated? Author Patient's specific desired goal: Patient Facing Action Plan Andrei Lee, [facility] Note: Goal(s): maintain quality of life as [...] Associated Diagnosis Comments CBC (WITH DIFF) STAT 10/10/2023 2:56 PM EDT Thrombocytopenia 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 use TYPE AND SCREEN ([facility]) Routine 10/10/2023 2:56 PM EDT Thrombocytopenia documented in this encounter Results * (ABNORMAL) CBC (with Diff) (10/10/2023 2:56 PM EDT) White Blood Cell 3.81 x10(3)/mc L 10/10/2023 4:33 PM [facility] Red Blood Cell 3.98(L) 4.58 - 5.54 x10(6)/mc L 10/10/2023 4:33 PM [facility] Hemoglobin 11.1(L) 13.7 - 16.5 g/dL 10/10/2023 4:33 PM [facility] Hematocrit 35.0(L) 40.5 - 48.5 % 10/10/2023 4:33 PM [facility] Mean Cell Volume 87.9 82.9 - 93.1 fL 10/10/2023 4:33 PM [facility] Mean Cell Hemoglobin 27.9 27.5 - 32.1 pg 10/10/2023 4:33 PM [facility] Mean Cell Hemoglobin Concentration 31.7(L) 32.0 - 35.7 g/dL 10/10/2023 4:33 PM [facility] Platelet 18(LLL) 145 - 357 x10(3)/mc L 10/10/2023 4:33 PM [facility] Mean Platelet Volume 8.3 7.6 - 12.9 fL 10/10/2023 4:33 PM [facility] RDW Standard Deviation 54.0(H) 36.0 - 45.0 fL 10/10/2023 4:33 PM [facility] RDW coefficient of variation 17.3(H) 11.4 - 13.8 % 10/10/2023 4:33 PM [facility] NRBC% auto 0.0 % 10/10/2023 4:33 PM [facility] NRBC Absolute 0.00 0.00 - 0.00 x10(3)/mc L 10/10/2023 4:33 PM [facility] Neutrophil % 77.6 % 10/10/2023 4:33 PM [facility] Neutrophil Absolute 2.96 1.70 - 6.10 x10(3)/mc L 10/10/2023 4:33 PM EDT [facility] Lymph % 12.9 % 10/10/2023 4:33 PM EDT [facility] Lymph Absolute 0.49(L) 0.90 - 3.20 x10(3)/mc L 10/10/2023 4:33 PM EDT [facility] Monocyte % 6.6 % 10/10/2023 4:33 PM EDT [facility] Monocyte Absolute 0.25(L) 0.30 - 0.90 x10(3)/mc L 10/10/2023 4:33 PM EDT [facility] Eos % 2.1 % 10/10/2023 4:33 PM EDT [facility] Eos Absolute 0.08 0.00 - 0.40 x10(3)/mc L 10/10/2023 4:33 PM EDT [facility] Basophil % 0.3 % 10/10/2023 4:33 PM EDT [facility] Baso Absolute 0.01 0.00 - 0.10 x10(3)/mc L 10/10/2023 4:33 PM EDT [facility] Immature Gran % 0.5 % 4:33 PM EDT [facility] Immature Gran Absolute 0.02 0.00 - 0.04 x10(3)/mc L 10/10/2023 4:33 PM EDT [facility] Blood VENOUS BLOOD SPECIMEN / Unknown IP Care Team Draw / Unknown 10/10/2023 2:56 PM EDT 10/10/2023 2:56 PM EDT Navjot Grider MD HEMATOLOGY ORDERABLE S [facility] [place] [address] * Type and screen ([facility]) (10/10/2023 2:56 PM EDT) ABORH Type A POSITIVE 10/10/2023 4:59 PM EDT [facility] PATIENT HISTORY Unneccessary 10/10/2023 4:59 PM EDT [facility] Expires at [id number] on: 10-10-2023 10/10/2023 4:59 PM EDT [facility] ANTIBODY SCREEN AUTOMATED Negative 10/10/2023 4:59 PM EDT [facility] T&S only valid at [facility] 10/10/2023 4:59 PM EDT [facility] Blood VENOUS BLOOD SPECIMEN / Unknown IP Care Team Draw / Unknown 10/10/2023 2:56 PM EDT 10/10/2023 2:56 PM EDT Narrative [facility] - 10/10/2023 4:59 PM EDT This Type and Screen result is only valid at the [facility] Navjot Grider MD BLOOD BANK LAB ORDER JESSICA [facility] [id number] documented in this encounter Visit Diagnoses Diagnosis Thrombocytopenia Thrombocytopenia, unspecified 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 use Encounter for long-term (current) use of other medications documented in this encounter Care Teams Brake Lining Curer Relationship Specialty Start Date End Date Molina Herr MD [address] [address] [place] [address] PCP - General 01/27/10 documented as of this encounter
--- OUTSIDE RECORDS SUMMARY | 2023-10-17 15:04 | XMS_ITS | Encounter Summary ---
Author Organization [facility] [place] [address] Care Team Providers Care Virtual Office Assistant Name Role Phone Molina Herr MD Primary Care Provider [phone] Encounter Details Date Type Department Care Team (Late st Contact Info) Description 10/11/2023 Notes Only Hematology [place] [address] Belinda Peña PA [facility] [place] [address] Social History Tobacco Use Types Packs/Day Years [...] from your doctor or pharmacy? Sometimes 08/22/2023 [facility] Utilities Answer Date Recorded In the past 12 months has e [employer], gas, oil, or water [employer] threatened to shut off services in your [...] were you homeless or living in a m[facility] (including now)? No 08/22/2023 IPV Inpatient Questions [...] Progress Notes * Belinda Peña PA - 10/11/2023 11:40 AM EDT Talked to Maldonado by phone to notify of low lymphocyte count. Recommend start mepron 750mg BID for PJP prophylaxis until his blood counts recover. He exhibited understanding. Rx has been sent to pharmacy, prior authorization is in process. He is currently having a repeat CBC drawn and plans to proceed to radiation appointment Belinda Peña PA-C documented in this encounter Plan of Treatment Upcoming Encounters Date Type Department Care Team (Late st Contact Info) Description 10/27/2023 11:15 AM EDT Office Visit Palliative Medicine at [place] [address] Elly Alston MD [facility] [address] HOSPICE AND [place] [address] 10/27/2023 1:00 PM EDT Office Visit Speech Therapy at [place] [address] Debra Franco, LIME HIDE INSPECTOR 11/03/2023 2:00 PM EDT Office Visit Speech Therapy at [place] [address] Debra Franco, LIME HIDE INSPECTOR 11/08/2023 2:30 PM EDT Appointment MRI at [place] [address] Navjot Grider MD [facility] [address] HEMATOLOGY [place] [address] 11/09/2023 1:45 PM EDT Office Visit Hematology and Oncology at [place] [address] Isabell Jacob MD [facility] [place] [address] 11/11/2023 10:30 AM EDT Office Visit Radiation Oncology at [place] [address] Nicki Sharpe MD [facility] [place] [address] 11/15/2023 10:00 AM EDT Office Visit Speech Therapy at [place] [phone] Debra Franco, LIME HIDE INSPECTOR 11/16/2023 9:00 AM EDT Office Visit Hematology [place] [address] Bisi Nam 11/22/2023 10:00 AM EDT Office [place] [address] Debra Franco SLP 11/30/2023 9:00 AM EDT Office Visit Hematology [place] [address] Bisi Nam 12/14/2023 9:00 AM EDT Office Visit Hematology [place] [address] Bisi Nam 12/28/2023 9:00 AM EDT Office Visit Hematology [place] [address] Bisi Nam documented as of this encounter Goals Goal Patient Goal Type Associated Problems Recent Progress Patient-Stated? Author Patient's specific desired goal: Patient Facing Action Plan No Andrei Egan, [facility] Note: Goal(s): maintain quality [...] on filedocumented in this encounter Care Teams Virtual Office Assistant Relationship Specialty Start Date End Date Molina Herr MD [address] [address] [place] [address] PCP - General 01/27/10 documented as of this encounter
--- OUTSIDE RECORDS SUMMARY | 2023-10-17 15:04 | XMS_ITS | Encounter Summary ---
Author Organization [place] [address] Care Team Providers Care Or Director Name Role Phone Molina Herr MD Primary Care Provider [phone] Encounter Details Date Type Department Care Team (Latest Contact Info) Description 10/07/2023 8:45 AM EDT - 10/07/2023 11:59 PM EDT Hospital Encounter [place]emat[place] [address] Glioblastoma of temporal lobe; High [...] from your doctor or pharmacy? Sometimes 08/22/[address] [facility] Utilities Answer Date Recorded In the [...] a senior living (including now)? No 08/22/2023 [facility] IPV Inpatient [...] 20 mg by mouth daily. 4 03/08/2014 [id number] (SOURCE CF) 200-10 mcg-mg Chew Take 1 [...] AM EDT Office Visit Palliative Medicine at [place] [address] Elly Alston MD [facility] [address] HOSPICE [place] [address] 10/27/2023 1:00 PM EDT Office Visit Speech Therapy at [place] [address] Debra Franco, KILN CAR REPAIRER 11/03/2023 2:00 PM EDT Office Visit Speech Therapy at [place] [address] Debra Franco, KILN CAR REPAIRER 11/08/2023 2:30 PM EDT Appointment MRI at [place] [address] Navjot Grider MD [facility] [address] [place] [address] 11/09/2023 1:45 PM EDT Office Visit Hematology and Oncology at [place] [address] Isabell Jacob MD [facility] [place] [address] 11/11/2023 10:30 AM EDT Office Visit Radiation Oncology at [place] [address] Nicki Sharpe MD [facility] [place] [address] 11/15/2023 10:00 AM EDT Office Visit Speech Therapy at [place] [address] Debra Franco KILN CAR REPAIRER 11/16/2023 9:00 AM EDT Office Visit Hematology [place] [address] Bisi Nam 11/22/2023 10:00 AM EDT Office Visit [place] [address] Debra Franco KILN CAR REPAIRER 11/30/2023 9:00 AM EDT Office Visit Hematology [place] [address] Bisi Nam 12/14/2023 9:00 AM EDT Office Visit Hematology [place] [address] Bisi Nam 12/28/2023 9:00 AM EDT Office Visit [place]ology [place] [address] Bisi Nam Scheduled Orders Name Type Priority Associated Diagnoses Orde r Schedule CBC (with Diff) Lab Routine Glioblastoma of temporal lobe 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 use 1 Occurrences starting 10/07/2023 until 10/07/2023 documented as of this encounter Goals Goal Patient Goal Type Associated Problems Recent Progress Patient-Stated? Author Patient's specific desired goal: Patient Facing Action Plan No Andrei Egan, [facility] Note: Goal(s): maintain quality of life as much as possible Measured by: quality of life scale, ability to participate in activities which he enjoys and needs to do Time-frame: to be assessed at approximately the one year point by pharmacy, or sooner if patient asks to discuss documented as of this encounter Procedures Procedure Name Priority Date/Time Associated Diagnosis Comments HEMOGRAM Routine 10/07/2023 9:40 AM EDT Glioblastoma of temporal lobe 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 use DIFFERENTIAL, AUTOMATED Routine 10/07/2023 9:40 AM EDT Glioblastoma of temporal lobe 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 use CBC (WITH DIFF) Routine 10/07/2023 9:40 AM EDT Glioblastoma of temporal lobe 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 use COMPREHENSIVE METABOLIC PANEL Routine 10/07/2023 9:40 AM EDT Glioblastoma of temporal lobe documented in this encounter Results * (ABNORMAL) Differential, Automated (10/07/2023 9:40 AM EDT) Neutrophil % 84.2 % [facility] Neutrophil Absolute 5.85 1.70 - 6.10 x10(3)/mc L [facility] Lymph % 7.1 % [facility] Lymphocytes Abs 0.5(L) 0.9 - 3.2 x10(3)/ L [facility] Monocyte % 5.3 % [facility] Monocyte Abs 0.4 0.3 - 0.9 x10(3)/ L [facility] Eos % 2.7 % [facility] Eosinophils Abs 0.2 0.0 - 0.4 x10(3)/mc L [facility] Basophil % 0.3 % [facility] Baso Absolute 0.0 0.0 - 0.1 x10(3)/mc L [facility] Immature Gran % 0.40 % [facility] Comment: Immature granulocytes(IG's)percentage and absolute count will include metamyelocytes, myelocytes, and promyelocytes. Blood smears from CBCs yielding IG's will be scanned manually for concordance. If this scan disagrees with the automated IG or if promyelocytes are noted, a manual differential will be performed. Immature Gran Absolute 0.03 0.00 - 0.04 x10(3)/mc L [facility] Blood 10/07/2023 9:40 AM EDT 10/07/2023 9:49 AM EDT Narrative Resulting Agency Comment Spec In Lab Belinda ARRINGTON HEMATOLOGY ORDERABLE S [facility] [place] [address] * (ABNORMAL) Hemogram (10/07/2023 9:40 AM EDT) [facility] White Blood Cell 7.0 4.0 - 9.5 x10(3)/mc L [facility] Red Blood Cell 4.08(L) 4.58 - 5.54 x10(6)/mc L [facility] Hemoglobin 11.6(L) 13.7 - 16.5 g/dL [facility] Hematocrit 36.0(L) 40.5 - 48.5 % [facility] Mean Cell Volume 88.2 82.9 - 93.1 fL [facility] Mean Cell Hemoglobin 28.4 27.5 - 32.1 pg [facility] Mean Cell Hemoglobin Concentration 32.2 32.0 - 35.7 g/dL [facility] Platelet 24(L) 145 - 357 x10(3)/[facility] RDW Standard Deviation 55.0(H) 36.0 - 45.0 [facility] RDW coefficient of variation 17.4(H) 11.4 - 13.8 % [facility] Mean Platelet Volume 8.9 7.6 - 12.9 [facility] NRBC% auto 0.0 % [facility] NRBC Absolute 0.000 0.000 - 0.000 x10(3)/[facility] Blood 10/07/2023 9:40 AM EDT 10/07/2023 9:49 AM EDT Narrative Resulting Agency Comment Spec In Lab Belinda ARRINGTON HEMATOLOGY ORDERABLE S [facility] [place] [address] * Comprehensive metabolic panel (non-fasting) (10/07/2023 9:40 AM EDT) [facility] Glucose 102 65 - 199 mg/dL [facility] Comment:Diabetes: >=200 mg/d L plus symptoms Blood Urea Nitrogen 20 10 - 20 mg/dL [facility] Creatinine 1.20 0.80 - 1.50 mg/dL [facility] Sodium 139 135 - 145 mmol/L [facility] Potassium 4.6 3.5 - 5.0 mmol/L [facility] Comment: Please note: ??Patients with WBC >100,000 may have falsely elevated Potassium levels. ??For accurate Potassium quantification in these patients send serum separator tube (gold top) for subsequent determinations. ??Contact the Clinical Chemistry Laboratory if there are any questions. Chloride 104 98 - 107 mmol/L [facility] Carbon Dioxide 27 22 - 31 mmol/L [facility] Anion Gap 8 5 - 15 mmol/L [facility] Calcium 9.7 8.5 - 10.5 mg/dL [facility] Protein, Total 6.7 6.1 - 8.0 g/dL [facility] Albumin 4.0 3.2 - 5.2 g/dL [facility] Aspartate Aminotransferase 21 0 - 39 unit/L [facility] Alanine Aminotransferase 25 0 - 55 unit/L [facility] Alkaline Phosphatase 49 40 - 130 unit/L [facility] Bilirubin, Total 0.5 0.2 - 1.3 mg/dL [facility] Est Glomerular Filtration Rate 61 >=60 mL/min/1. 73 m?? [facility] Comment: This patient's estimated GFR [...] In Lab Navjot Grider MD CHEMISTRY ORDERABLES [facility] [place] [address] documented in this encounter Visit Diagnoses Diagnosis Glioblastoma of temporal lobe Malignant neoplasm of temporal lobe of brain 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 use Encounter for long-term (current) use of other medications documented in this encounter Care Teams Or Director Relationship Specialty Start Date End Date Molina Herr MD [facility] [address] [place] [address] PCP - General 01/27/10 documented as of this encounter
--- OUTSIDE RECORDS SUMMARY | 2023-10-17 15:04 | XMS_ITS | Encounter Summary ---
Author Organization [place] [address] Care Team Providers Care Client Integration Manager Name Role Phone Molina Herr MD Primary Care Provider [phone] Reason for Visit * Reason Comments On Treatment Visit Encounter Details Date Type Department Care Team (Late st Contact Info) Description 10/07/2023 8:15 AM EDT Office Visit [place] [id number] Nicki Sharpe MD [facility] [place] [address] Brain tumor (Primary Dx) Social History Tobacco Use Types Packs/Day Years [...] your doctor or pharmacy? Sometimes 08/22/2023 [facility] Utilities Answer Date Recorded In the past [...] any time in the past 12 m [facility], were you homeless or living in a fpc (including now)? No 08/22/2023 [facility] IPV Inpatient [...] Sign Reading Time Taken Comments Blood Pressure 111/67 10/07/2023 8:45 AM EDT Pulse 67 10/07/2023 8:45 AM EDT Temperature 36.2 ??C (97.1 ??F) 10/07/2023 8:45 AM ED T Respiratory Rate 20 10/07/2023 8:45 AM EDT Oxygen Saturation 99% 10/07/2023 8:45 AM EDT Inhaled Oxygen Concentration - - Weight 81.6 kg (179 lb 12.8 oz) 10/07/2023 8:45 AM EDT Height - - Body Mass Index 27.5 10/04/2023 11:25 AM EDT documented in this encounter Progress Notes * Nicki Sharpe MD - 10/07/2023 8:15 AM EDT Images from the original note were not included. [facility] Medicine Radiation Oncology Radiation Oncology On-Treatment Note n Patient identifiers/demographics: Name: Perfecto Polk Date of : 1940 Chief complaint/reason for treatment: Glioblastoma Cancer staging: WHO grade 4 Primary oncologist: Dr. Marni hernandez Treatment details: Treatment intent: Curative/post-operative Treatment site: brain Radiation therapy rx: 60 Gy 30 treatments Treatment technique: VMAT/IMRT Concurrent chemotherapy: Yes; Temozolomide Radiation therapy schedule: Once daily n Treatment progress: Today's Date: 09/30/23 Radiation Therapy Dose: 54Gy, 27 fractions Clinical Trial: no n Clinical course: OTV1: He reports overall he is doing okay. He has noticed that he has had some more visual changes that occur on the right side that have gotten worse since his last visit. He also has noticed some slight headaches. He is still noticing some decreased hearing, but is not sure if it is due to his hearing aids or something else. He denies any worsening weakness, balance difficulties, sensation changes, or seizure activity. OTV2: He reports overall he is doing well. He has visual shapes and changes that occur in his vision that are not there that have been stable. He reports that his headache has improved. Since starting steroids of 4mg daily. He denies any worsening weakness, balance difficulties, sensation changes, or seizure activity. OTV3: He reports overall that he is doing well. His vision has remained stable. He has not had any headaches currently. He denies any worsening weakness, balance difficulties, sensation changes, or seizure activity. OTV4: He reports overall he is doing well. He reports his vision remains stable. He denies any headaches, worsening weakness, balance difficulty, sensation changes, or seizure activity. He has not felt any real fatigue. OTV5: He reports that he has had a few minor headaches. They aren't positional or worse a certain time of the day. He hasn't had any worsening of his vision. He reports he actually has had two long periods of times where he did not have his typical visual changes, which is the first time that has occurred since surgery. He denies any worsening weakness, sensation changes, nausea, muscle twitchingor seizure like activity. He has endorsed having cramping in his hands. OTV6: He reports overall he is doing well. He is having occasional mild headaches that are not positional or occurring a certain time of day. He reports that he has intermittently taken tylenol at night, but more to relax himself and not for the headache. He is not waking up with headaches. He denies any nausea, worsening vision, weakness, or sensation changes. He states he still has stable cramping of his hands n Exam: Vitals in flowsheet General: Well groomed, no acute distress Eyes: Sclera anicteric, clear conjunctivae, Pupils equal round and reactive to light, extra ocular movements intact Neck: supple, trachea midline Oral: Mucus membranes moist, no thrush or oral lesions Chest: Breathing comfortably on room air Legs: No lower extremity edema or calf tenderness Skin: Warm, no rashes Mood: Normal insight and judgement Neuro: Alert and oriented to person, place and time, fluid language, Cranial nerves intact except right upper field visual deficit (stable) and decrease bilateral hearing, no pronator drift, NegativeRomberg, no tremor, 5/5 strength in upper and lower extremities bilaterally, normal sensation, normal coordination, normal gait, no dysarthria Recent Results (from the past 72 hour(s)) Comprehensive metabolic panel (non-fasting) Result Value Ref Range Glucose Lvl 102 65 - 199 mg/dL BUN 20 10 - 20 mg/dL Creatinine 1.20 0.80 - 1.50 mg/dL Sodium 139 135 - 145 mmol/L Potassium 4.6 3.5 - 5.0 mmol/L Chloride 104 98 - 107 mmol/L CO2 27 22 - 31 mmol/L Anion Gap 8 5 - 15 mmol/L Calcium 9.7 8.5 - 10.5 mg/dL Total Protein 6.7 6.1 - 8.0 g/dL Albumin 4.0 3.2 - 5.2 g/dL AST 21 0 - 39 unit/L ALT 25 0 - 55 unit/L Alk Phos 49 40 - 130 unit/L Total Bilirubin 0.5 0.2 - 1.3 mg/dL Estimated GFR 61 >=60 mL/min/1.73 m?? Hemogram Result Value Ref Range WBC 7.0 4.0 - 9.5 x10(3)/mcL RBC 4.08 (L) 4.58 - 5.54 x10(6)/mcL Hemoglobin 11.6 (L) 13.7 - 16.5 g/dL Hematocrit 36.0 (L) 40.5 - 48.5 % MCV 88.2 82.9 - 93.1 fL MCH 28.4 27.5 - 32.1 pg MCHC 32.2 32.0 - 35.7 g/dL Platelets 24 (L) 145 - 357 x10(3)/mcL RDWSD 55.0 (H) 36.0 - 45.0 fL RDWCV 17.4 (H) 11.4 - 13.8 % MPV 8.9 7.6 - 12.9 fL nRBC % Auto 0.0 % nRBC Abs Auto 0.000 0.000 - 0.000 x10(3)/mcL Differential, Automated Result Value Ref Range Neutrophils % 84.2 % Neutr Abs (ANC) 5.85 1.70 - 6.10 x10(3)/mcL Lymphocytes % 7.1 % Lymphocytes Abs 0.5 (L) 0.9 - 3.2 x10(3)/mcL Monocytes % 5.3 % Monocyte Abs 0.4 0.3 - 0.9 x10(3)/mcL Eosinophils % 2.7 % Eosinophils Abs 0.2 0.0 - 0.4 x10(3)/mcL Basophils % 0.3 % Basophils Abs 0.0 0.0 - 0.1 x10(3)/mcL Immature Gran % 0.40 % Kayley Gran Abs 0.03 0.00 - 0.04 x10(3)/mcL n Assessment: Perfecto Polk is a 83 y.o.M with newly diagnosed glioblastoma s/p GTR. He is receiving 60 Gy in 30 fractions of radiation treatment with concurrent temozolomide. Temozolomide was placed on hold currently due to low platelet counts. n Follow-up/plan: Continue treatment radiation treatment as planned. Temozolomide currently held due to low platelets Schedule to return after radiation treatment on 11/11/23 Decrease steroids to 1mg of dexamethasone daily in the morning with breakfast and PPI . Discussed that if his headache worsens that he can increase his steroids back to previous dose. Instructed on signs and symptoms to watch out for and when to call or go to the ED Encouraged to contact us with any additional questions or concerns Nicki Sharpe MD, PhD [facility] Radiation Oncology [employer] (N[employer]) [facility] [employer] Commission on Cancer (ACS [place]) Accredited Cancer Program [employer] (A[employer]) Accredited Radiation Oncology Program documented in this encounter Plan of Treatment Upcoming Encounters Date Type Department Care Team (Late st Contact Info) Description 10/27/2023 11:15 AM EDT Office Visit Palliative Medicine at [place] [address] Elly Alston MD [facility] [address] HOSPICE [place] [address] 10/27/2023 1:00 PM EDT Office Visit Speech Therapy at [place] [address] Debra Franco, SUB MASTER 11/03/2023 2:00 PM EDT Office Visit [place] [address] Debra Franco, SUB MASTER 11/08/2023 2:30 PM EDT Appointment MRI at [address] Navjot Grider MD [facility] [place] [address] 11/09/2023 1:45 PM EDT Office Visit Hematology and Oncology at [place] [address] Isabell Jacob MD [facility] [place] [address] 11/11/2023 10:30 AM EDT Office [place] [address] Nicki Sharpe MD [facility] [place] [address] 11/15/2023 10:00 AM EDT Office [place] [address] Debra Franco, SUB MASTER 11/16/2023 9:00 AM EDT Office Visit Hematology [place] [address] Bisi Nam 11/22/2023 10:00 AM EDT Office [place] [address] Debra Franco, SUB MASTER 11/30/2023 9:00 AM EDT Office Visit Hematology [place] [address] Bisi Nam 12/14/2023 9:00 AM EDT Office Visit Hematology [place] [address] Bisi Nam 12/28/2023 9:00 AM EDT Office Visit Hematology [place] [address] Bisi Nam documented as of this encounter Goals Goal Patient Goal Type Associated Problems Recent Progress Patient-Stated? Author Patient's specific desired goal: Patient Facing Action Plan Andrei Lee, [facility] Note: Goal(s): maintain quality of life as much as possible Measured by: quality of life scale, ability to participate in activities which he enjoys and needs to do Time-frame: to be assessed at approximately the one year point by pharmacy, or sooner if patient asks to discuss documented as of this encounter Visit Diagnoses Diagnosis Brain tumor- Primary Neoplasm of unspecified nature of brain documented in this encounter Care Teams Client Integration Manager Relationship Specialty Start Date End Date Molina Herr MD [facility] [address] [place] [address] PCP - General 01/27/10 documented as of this encounter
--- OUTSIDE RECORDS SUMMARY | 2023-10-17 15:04 | XMS_ITS | Encounter Summary ---
[place] [address] Care Team Providers Care Director Retirement Name Role Phone Molina Herr MD Primary Care Provider [phone] Reason for Visit * Reason Onset Date Comments Follow-up 10/11/2023 Results 10/11/2023 Encounter Details Date Type Department Care Team (Late st Contact Info) Description 10/11/2023 Telephone Hematology [place] [address] Malgorzata Reynoso RN INFUSION ROOM Follow-up ; Results Social History Tobacco Use Types Packs/Day [...] from your doctor or pharmacy? Sometimes 08/22/2023 [facility] Utilities Answer Date Recorded In [...] in the past 12 m [facility], were you homeless or living in a longterm (including now)? No 08/22/2023 [facility] IPV Inpatient [...] Telephone Encounter - Malgorzata Reynoso RN - 10/11/2023 7:50 AM EDT Call placed to patient to follow-up on platelet transfusion yesterday and request that he come in for labs prior to radiation. Spoke w/ pt who stated that the transfusion went well. He denies any signs or symptoms of bleeding or new bruising. Patient stated he would obtain labs prior to his radiation this afternoon at 1300. plts 54 Plan per MURPHY Holguin: repeat labs Tuesday Patient verbalized understanding and agreement with plan. Stated that he will get them on as they are leaving town for On Tuesday. His radiation is at 0800 so he will get labs while here for radiation. Patient is aware to call clinic with any concerns or questions. documented in this encounter Plan of Treatment Upcoming Encounters Date Type Department Care Team (Late st Contact Info) Description 10/27/2023 11:15 AM EDT Office Visit Palliative Medicine at [place] [phone] Elly Alston MD [facility] HOSPICE [place] [address] 10/27/2023 1:00 PM EDT Office Visit Speech Therapy at [place] [address] Debra Franco, ROCK DUSTER 11/03/2023 2:00 PM EDT Office Visit Speech Therapy at [place] [phone] Debra Franco, ROCK DUSTER 11/08/2023 2:30 PM [place] [address] Navjot Grider MD [facility] [place] [address] 11/09/2023 1:45 PM EDT Office Visit Hematology and Oncology at [place] [phone] Isabell Jacob MD [facility] [place] [address] 11/11/2023 10:30 AM EDT Office Visit Radiation Oncology at [place] [address] Nicki Sharpe MD [facility] [place] [address] 11/15/2023 10:00 AM EDT Office [place] [address] Debra Franco, ROCK DUSTER 11/16/2023 9:00 AM EDT Office Visit Hematology [place] [address] Bisi Nam 11/22/2023 10:00 AM EDT Office [place] [address] Debra Franco ROCK DUSTER 11/30/2023 9:00 AM EDT Office Visit Hematology [place] [address] Bisi Nam 12/14/2023 9:00 AM EDT Office Visit Hematology [place] [address] Bisi Nam 12/28/2023 9:00 AM EDT Office Visit Hematology [place] [address] Bisi Nam documented as of this encounter Goals Goal Patient Goal Type Associated Problems Recent Progress Patient-Stated? Author Patient's specific desired goal: Patient Facing Action Plan Andrei Lee, [facility] Note: Goal(s): maintain quality of life [...] filedocumented in this encounter Care Teams Director Retirement Relationship Specialty Start Date End Date Molina Herr MD [facility] [address] [place] [address] PCP - General 01/27/10 documented as of this encounter
--- OUTSIDE RECORDS SUMMARY | 2023-10-17 15:04 | XMS_ITS | Encounter Summary ---
Author Organization [facility] [place] [address] Care Team Providers Care Pyrometer Mechanic Name Role Phone Molina Herr MD Primary Care Provider [phone] Encounter Details Date Type Department Care Team (Latest Contact Info) Description 10/10/2023 Travel Social History Tobacco Use Types Packs/Day [...] Recorded In the past 12 months has [facility] [employer] gas, oil, or water [employer] threatened to shut off services in your [...] time in the past 12 m [facility] [place], were you homeless or living in a halfway (including now)? No 08/22/2023 IPV Inpatient Questions [...] AM EDT Office [place] [address] Elly Alston MD [facility] HOSPICE [place] [address] 10/27/2023 1:00 PM EDT Office [place] [address] Debra Franco, TANKER DRIVER 11/03/2023 2:00 PM EDT Office [place] [address] Debra Fracno, TANKER DRIVER 11/08/2023 2:30 PM EDT Appointment MRI at [place] [address] Navjot Grider MD [facility] [address] [place] [address] 11/09/2023 1:45 PM EDT Office Visit Hematology and Oncology at [address] Isabell Jacob MD [facility] [place] [address] 11/11/2023 10:30 AM EDT Office Visit Radiation Oncology at [address] Nicki Sharpe MD [facility] [place] [address] 11/15/2023 10:00 AM EDT Office [place] [address] Debra Franco, ROLANDO 11/16/2023 9:00 AM EDT Office Visit Hematology [place] [address] Bisi Nam 11/22/2023 10:00 AM EDT Office [place] [address] Debra Franco, ROLANDO 11/30/2023 9:00 AM EDT Office Visit Hematology [place] [address] Bisi Nam 12/14/2023 9:00 AM EDT Office Visit Hematology [place] [address] Bisi Nam 12/28/2023 9:00 AM EDT Office Visit Hematology [place] [address] Bisi Nam documented as of this encounter Goals Goal Patient Goal Type Associated Problems Recent Progress Patient-Stated? Author Patient's specific desired goal: Patient Facing Action Plan Andrei Lee, [facility] Note: Goal(s): maintain quality of life as much as possible Measured by: quality of life scale, ability to participate in activities which he enjoys and needs to do Time-frame: to be assessed at approximately the one year point by pharmacy, or sooner if patient asks to discuss documented as of this encounter Visit Diagnoses Not on filedocumented in this encounter Care Teams Pyrometer Mechanic Relationship Specialty Start Date End Date Molina Herr MD [facility] [address] [place] [address] PCP - General 01/27/10 documented as of this encounter
--- OUTSIDE RECORDS SUMMARY | 2023-10-17 15:04 | XMS_ITS | Encounter Summary ---
[place] [address] Care Team Providers Care Head Inspector Name Role Phone Molina eHrr MD Primary Care Provider [phone] Reason for Visit * Reason Comments Follow-up * Consultation (Routine) - Closed Specialty Diagnoses / Procedures Referred By Flo viveros Referred To Contact Hematology and Oncology Diagnoses Brain tumor Nicki Sharpe MD [facility] [place] [address] [facility] Hem [address]c [address] [place] [address] Referral ID Status Reason Start Date Expiration Date V isits Requested Visits Authorized [id number] Closed Consult, Test & Treat 08/12/2023 08/11/2024 1 1 Encounter Details Date Type Department Care Team (Late st Contact Info) Description 10/12/2023 10:00 AM EDT Office Visit Hematology [place] [address] Bisi Nam Adjustment disorder with anxiety Social History Tobacco Use Types Packs/Day Years [...] from your doctor or pharmacy? Sometimes 08/22/2023 [facility] Utilities Answer Date Recorded In [...] Sign Reading Time Taken Comments Blood Pressure 106/66 10/12/2023 10:01 AM EDT Pulse 72 10/12/2023 10:01 AM EDT Temperature 36 ??C (96.8 ??F) 10/12/2023 10: 01 AM EDT Respiratory Rate 18 10/12/2023 10:0 1 AM EDT Oxygen Saturation 98% 10/12/2023 10: 01 AM EDT Inhaled Oxygen Concentration - - Weight 81.5 kg (179 lb 10.8 oz) 024 10:01 AM EDT Height 172.2 cm (5' 7.8) 10/12/2023 10 :01 AM EDT Body Mass Index 27.48 10/12/2023 10:01 AM EDT documented in this encounter Progress Notes * Bisi Nam W - 10/12/2023 10:00 AM EDT [facility] HEMATOLOGY AND ONCOLOGY AT [facility] [address] Dept: [phone] Loc: [phone] 10/12/2023 7:58 AM REFERRAL QUESTION: referral to psychotherapy for a newly diagnosed glioblastoma Maldonado is a 83 y.o. male who was referred by Lissy Sharpe MD to evaluate and make recommendations regarding the appropriateness of cognitive-behavioral treatment for coping with cancer diagnosis. Maldonado was seen for 60 minutes. he was alone, and was seen in the Office. Limits to confidentiality were reviewed at the start of the session. SUMMARY Maldonado was referred for an evaluation of his psychological functioning secondary to a diagnosis of glioblastoma. Main concerns: Frustration regarding lack of clarity around treatment options and disease prognosis; fear that auditory/vision/cognitive impairments due to cancer/treatment are permanent. Social support: excellent for emotional support (e.g., listening, comforting) and excellent for task support (e.g., transportation, daily living care). Primary support: comes from adult child(ji), community support, and spouse. Health behaviors: not assessed. Information preference: he is a moderate information seeker, and indicates that the doctors/nurses are not communicating well. Maldonado wouldask questions to the team. Potential barriers to treatment compliance: cognitive impairments due tocancer/treatment TREATMENT PLAN AND RECOMMENDATIONS Reviewed the short-term nature of embedded psychosocial care at the [facility]. Specifically, treatment is focused on addressing issues associated with the cancer experience. If after a focused course of treatment Maldonado would continue to benefit from ongoing therapy, Maldonado will be referred out to a community provider. Maldonado expressed an understanding to the above and has agreed to return in 5 Weeks to participate inindividual therapy. Treatment will involve the following strategies: Acceptance-based skills to promote values-consistent decision-making in treatment and daily life. DIAGNOSIS Adjustment disorder with anxiety The above assessment and plan was based on the following information obtained during the appointment: MAIN CONCERN TO PATIENT Memory, reading, word finding, auditory, and vision impairments due to cancer and its treatment; Maldonado is mainly worried that these impairments are permanent and could potentially progress further ashis cancer progresses. Maldonado endorsed frustration with not being able to complete many of his normal daily tasks and hobbies (e.g., not allowed to drive) Maldonado also reported some loss of social connectedness due to his auditory and speech deficits. Maldonado reported that he is starting to feel the effects of radiation on his energy levels; noting that he now requires much more rest/naps than he used to. 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 To date, Maldonado has received surgery (July 2023), chemotherapy (currently on hold due to low platelets), and radiation (since mid-August). He is completing his last radiation treatment tomorrow (10/12) andwill have another MRI to measure treatment effects in 4 weeks. FAMILY/SOCIAL HX OF CANCER Maldonado's first from cancer 1 year after her diagnosis of Leukemia SOCIAL HISTORY/CURRENT FUNCTIONING Household composition: patient and spouse Relationship status: . Quality of relationship: supportive Progeny: Children: 1 adult daughter lives in [place]; adult son 2019 Grandchildren: 1 college-age (son's kid) Quality of relationship with children: supportive. 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 Maldonado reported that he still sometimes takes photos with his phone/a more simplecamera, but that it's not the same because of the lower photo quality and editing capacities. Flaco enjoys riding his bike, but is unable to ride past the end of his court due to memory deficits. 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 Continued engagement in important activities: Yes: still able to engage in socializing to a certainextent; Can't pursue lots of hobbies (e.g., photography), driving antique car, boating. MENTAL HEALTH HISTORY: not assessed CURRENT PSYCHOSOCIAL CONCERNS & TREATMENT Sleep 10/07/2023 8:08 PM Insomnia Severity Index Response Current - Difficulty Falling Asleep None Current - Difficulty Staying Asleep None Current - Waking Too Early None Insomnia Severity Index Score Incomplete Pain 10/07/2023 8:07 PM Q - BMED Pain Scale + PCS Responses Chronic pain scale 0 - No Pain Usual Pain Intensity 0 Chronic Pain Grade Grade 0 = No pain Grade 1, low intensity, low interference = Usual Pain Intensity score of less than 5 AND 2-item disability score less than 9 Grade 2, moderate intensity = Usual Pain Intensity score of 5 or greater AND 2- item disability score less than 9 Grade 3, moderate interference = 2-item disability score of 9-12 Grade 4, severe interference = 2-item disability score of 13-20 Anxiety 10/07/2023 8:09 PM ANEL-7 Responses GAD7 Total Score (Range 0-21) 1 (Minimal Anxiety) ANEL-7 Score 1 ANEL-7 Score (Pt Questionnaire) 1 (Minimal Anxiety) Nervous, anxious Not at all Unable to stop worrying Not at all Worrying about different things Not at all Trouble relaxing Not at all Restless Not at all Easily annoyed, irritable Several days Afraid something awful will happen Not at all Mood PHQ9 Questionnaire Data: Today's value 10/07/2023 8:06 PM PHQ-9 Patient Reported Responses PHQ9 Total Score (Range 0-27) 4 (Minimal Depression) PHQ-9 Score 4 (Minimal Depression) Little interest or pleasure Not at all Down, depressed, hopeless Not at all Trouble sleeping Several days Tired or no energy More than half the days Poor appetite or overeating Not at all Feeling like a failure Not at all Trouble concentrating (newspaper) Several Days Moving or speaking slowly Not at all Would be better off Not at all Substance Use 10/07/2023 8:10 PM Audit & Substance Use Responses 4 or more drinks a day No Used drug or prescription medication for non medical reason No Current stressors: Health: Hearing/vision loss; some visual hallucinations caused by GBM which can be surprising at times Quality of life? good Current treatment (therapy, medication): Maldonado is currently undergoing radiation, with his last radiation treatment occurring this week. SURVIVORSHIP CONCERNS Fear of cancer recurrence: Maldonado reported that he is mostly scared that he won't get his full functioning back; When asked about fear of cancer progression/, Maldonado stated that he is worried about when and under what circumstances he is going to rather than about the fact that he is going to . This worry stems from the fact that he doesn't want to burden others with the process of dying; Maldonado also stated that he is unsure what level of intervention is worth living through. Doctors have suggested treatments involving brain stimulation 18+ hours per day which he feels would be too in vasive to merit the small treatment effects; Maldonado stated that he is having trouble communicating with the doctors about his lack of willingness for the brain stimulation treatment, and has found it challenging to get answers from his doctors about whether there are other treatment options he can pursue. Avoidance of cancer reminders (thoughts/places): none reported COPING STYLE Maldonado uses the following methods to cope with difficult circumstances: mainly distraction; many previous hobbies/coping skills are no longer available due to cognitive deficits CURRENT SOCIAL SUPPORT NETWORK Primary support comes from adult child(ji), community support, and spouse Quality of EMOTIONAL support: excellent Quality of TASK support: excellent Family's reaction to diagnosis/treatment: not assessed HEALTH BEHAVIORS: not assessed DETAIL OF INFORMATION PREFERENCE Maldonado is a moderate information seeker . Maldonadois not receiving the right amount of information from the doctors and nurses. Maldonado indicates that the doctors/nurses are not communicating well. Maldonado would ask questions to the team. MENTAL STATUS Appearance: within normal limits Behavior: within normal limits Speech: within normal limits Affect: mood congruent Suicidality/homicidality: no suicidal ideation Thought content/ process: within normal limits and goal directed Cognitive function: Maldonado endorsed some cognitive deficits due to cancer and its treatment. He is being followed by neurology. The assessment and plan for Maldonado are detailed at the beginning of this report. * Arin Pearson, PhD - 10/12/2023 10:00 AM EDT I have reviewed this note and I agree with the assessment, plan, and treatment as documented by Bisi Nam, doctoral [employer] internship in the Department of Psychiatry. The assessment and plan were formulated in discussion with me and I agree with them as documented. Arin Pearson, PhD documented in this encounter Plan of Treatment Upcoming Encounters Date Type Department Care Team (Late st Contact Info) Description 10/27/2023 11:15 AM EDT Office Visit Palliative Medicine at [place] [address] Elly Alston MD [facility] [address] HOSPICE [place] [address] 10/27/2023 1:00 PM EDT Office Visit Speech Therapy at [address] Debra Franco, BIOCHEMICAL DEVELOPMENT ENGINEER 11/03/2023 2:00 PM EDT Office Visit Speech Therapy at [place] [phone] Debra Franco, BIOCHEMICAL DEVELOPMENT ENGINEER 11/08/2023 2:30 PM EDT Appointment MRI at [place] [phone] Navjot Grider MD [facility] [address] [place] [address] 11/09/2023 1:45 PM EDT Office Visit Hematology and Oncology at [place] [phone] Isabell Jacob MD [facility] [address] 11/11/2023 10:30 AM EDT Office Visit Radiation Oncology at [place] [phone] Nicki Sharpe MD [facility] [place] [address] 11/15/2023 10:00 AM EDT Office Visit [place] [address] Debra Franco, BIOCHEMICAL DEVELOPMENT ENGINEER 11/16/2023 9:00 AM EDT Office Visit Hematology [place] [address] Bisi Nam 11/22/2023 10:00 AM EDT Office [place] [address] Debra Franco, BIOCHEMICAL DEVELOPMENT ENGINEER 11/30/2023 9:00 AM EDT Office Visit Hematology [place] [address] Bisi Nam 12/14/2023 9:00 AM EDT Office Visit Hematology [place] [address] Bisi Nam 12/28/2023 9:00 AM EDT Office Visit Hematology [place] [address] Bisi Nam Scheduled Referrals Name Type Priority Associated Diagnoses Order Schedule Referral to [facility] Psychiatry (Cancer Center Patients Only) Outpatient Referral Routine Brain tumor Ordered: 08/12/2023 documented as of this encounter Goals Goal Patient Goal Type Associated Problems Recent Progress Patient-Stated? Author Patient's specific desired goal: Patient Facing Action Plan No Andrei Egan, [facility] Note: Goal(s): maintain quality of life as much as possible Measured by: quality of life scale, ability to participate in activities which he enjoys and needs to do Time-frame: to be assessed at approximately the one year point by pharmacy, or sooner if patient asks to discuss documented as of this encounter Visit Diagnoses Diagnosis Adjustment disorder with anxiety documented in this encounter Care Teams Head Inspector Relationship Specialty Start Date End Date Molina Herr MD [facility] [address] [place] [address] PCP - General 01/27/10 documented as of this encounter
--- OUTSIDE RECORDS SUMMARY | 2023-10-17 15:05 | XMS_ITS | Encounter Summary ---
[place] [address] Care Team Providers Care Equipment Maintenance Tech Name Role Phone Molina Herr MD Primary Care Provider [phone] Reason for Referral * Diagnostic Test (Routine) - Authorized Specialty Diagnoses / Procedures Referred By Contac t Referred To Contact Radiology Diagnoses Glioblastoma of temporal lobe 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 use Procedures MRI Brain wwo Contrast (With Perfusion) Belinda Peña PA [facility] [place] [address] [place] [address] Referral ID Status Reason Start Date Expiration Date Visits Requested Visits Authorized [id number] Authorized Specialty Service Requested 10/04/2023 04/05/2025 1 1 Reason for Visit * Reason Comments Follow-up Brain Tumor Encounter Details Date Type Department Care Team (Late st Contact Info) Description 10/04/2023 11:00 AM EDT Office Visit H[place] [address] Navjot Grider MD [facility] [address] [place] [address] Glioblastoma of temporal lobe (Primary Dx); 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 use Social [...] from your doctor or pharmacy? Sometimes 08/22/2023 [facility] Utilities Answer Date Recorded In the [...] in a fpc (including now)? No 08/22/2023 IPV Inpatient Questions [...] Sign Reading Time Taken Comments Blood Pressure 102/64 10/04/2023 11:25 AM EDT Pulse 69 10/04/2023 11:25 AM EDT Temperature 35.4 ??C (95.7 ??F) 10/04/2023 11:25 AM E DT Respiratory Rate 17 10/04/2023 11:25 AM EDT Oxygen Saturation 98% 10/04/2023 11:25 AM EDT Inhaled Oxygen Concentration - - Weight 83 kg (183 lb) 10/04/2023 11:25 AM EDT Height 172.2 cm (5' 7.8) 10/04/2023 11:25 AM ED T Body Mass Index 27.99 10/04/2023 11:25 AM EDT documented in this encounter Patient Instructions * Patient Instructions* Belinda Peña PA - 10/04/2023 11:00 AM EDT - Stop taking temozolomide (temodar) - Repeat labs on Tuesday (10/06) and (10/10) - hold aspirin and celebrex until platelets recover - avoid all OTC pain medicines except tylenol - repeat MRI in 4 weeks with follow up after - please present to the ER with occurrence of double vision, loss of vision, localizing or lateralizing weakness, severe headache, nausea/vomiting, seizure or sense of loss of time, CP, SOB etc with this patient and he agrees to present to the ER if any of these should occur. 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 Concurrent temodar 145mg daily HPI: 83 y.o. male with history of hpl, hypothyroid and intracranial athero who underwent a TKA on 07/05/23 and states post-op started to have difficulties with word-searching and simple task planning. Patient's PCP was concerned and sent patient for MRI brain which revealed large L temporal mass with vasogenic edema. He was placed on dexametthasone and Keppra. He was taken to the OR for tumor resectionon 08/04/23 frozen consistent with high grade glioma. No complications perioperatively. He comes to neuro-oncolgy to discuss treatment options. He has already been set up with radiation oncology and will start daily treatments on 08/30/23. He continues on Keppra. He has tapered off his steroids. He endorses some visual shadows when he's tired. His partner, Ella, says his word- finding gets worseas the day progresses. Interval history 10/03/23 Comes in today with c/o fatigue noticed with increased nappy and more difficulty with climbing several flights of stairs. He continues to have some word-finding issues and intermittent headaches. Hiswife thinks he is a bit more wobbly when he walks. He does endorse decrease in incidence of visual hallucinations. Denies blood in urine or stool or any nose bleeds. General: denies fever, chills, +difficulty sleeping HEENT: denies blurred vision, double vision, voice changes, rhinorrhea, tinnitus Chest: denies SOB, wheezing, dyspnea on exertion Heart: denies chest pain, discoloration of extremities, calf swelling Abd: denies nausea, vomiting, diarrhea, early satiety : denies pain with urination, denies hematuria, denies urinary urgency or frequency Endo: denies heat or cold intolerance, denies polydipsia or polyuria MS: denies joint pain or swelling, denies change in gait Neuro: denies headache, seizure, weakness or numbness, denies frequent falls Psych: denies hallucinations, depression or anxiety Serial Visits: 09/05/23: He c/o visual hallucinations which he describes as shadows and also text writing itself, episodes of this ~50x/day that lasts seconds. He c/o continued word-searching and some difficulty reading and understanding words, worse at the end of the day. He was restarted on decadron by Dr. Sharpe on 09/02/23 in the hopes of improving hallucinations. 09/19/23: Patient comes in today stating he's been doing well. Denies any significant change in hallucinations either in frequency or content. Denies mcgill/nausea or seizure. Hasn't used zofran. Is having daily Bms. C/o dry mouth. His , Ella (legally June but asked to be called Ella) says he spends more time resting his eyes. Performance status: Karnofsky Performance Status (KPS) 100% Normal, no complaints, no signs of disease x 90% Capable of normal activity, few symptoms or signs of disease 80% Normal activity with some difficulty, some symptoms or signs 70% Caring for self, not capable of normal activity or work 60% Requiring some help, can take care of most personal requirements 50% Requires help often, requires frequent medical care 40% Disabled, requires special care and help 30% Severely disabled, hospital admission indicated but no risk of 20% Very ill, urgently requires admission, requires supportive measures/treatment 10% Moribund, rapidly progressive fatal disease processes 0% PAST MEDICAL HISTORY: Past Medical History: Diagnosis Date Hyperlipidemia Lumbar degenerative disc disease 08/21/2010 Past Surgical History: Procedure Laterality Date PRO ARTHROPLASTY KNEE CONDYLE & PLATEAU MEDIAL & LAT COMPARTMENTS Right 07/05/2023 TOTAL KNEE ARTHROPLASTY (WRVU 19.6) performed by Ernie Fuchs MD at [facility] MAIN OR PRO COLONOSCOPY, BIOPSY 01/10/2013 COLONOSCOPY FLEXIBLE, WITH BX performed by Dominick Earl MD at [facility] ENDOSCOPY PRO COLONOSCOPY, REMV LESN, SNARE N/A 01/12/2018 COLONOSCOPY, POLYPECTOMY, REMOVAL LESION BY SNARE (WRVU 4.67) performed by Guerda Coombs MD at [facility] ENDOSCOPY PRO COLONOSCOPY, REMV LESN, SNARE N/A 01/20/2023 COLONOSCOPY, POLYPECTOMY, REMOVAL LESION BY SNARE (WRVU 4.57) performed by Guerda Coombs MD at [facility] ENDOSCOPY PRO EXCIS SUPRATENT BRAIN TUMOR Left 08/04/2023 @CRANI, FOR TUMOR, SUPRATENTORIAL, NOT MENINGIOMA (WRVU 30.83) performed by Rolly Dunlap MD at [facility] MAIN OR PRO LAP, APPENDECTOMY N/A 03/09/2017 LAPAROSCOPIC APPENDECTOMY (WRVU 9.45) performed by Saurav Chen MD at [facility] MAIN OR PRO MICROSURG TECHNIQUES, REQ OPER MICROSCOPE N/A 08/04/2023 MICROSCOPE USE (WRVU 3.46) performed by Rolly Dunlap MD at [facility] MAIN OR PRO STEREOTACTIC CPTR ASSTD PX CRANIAL, INTRADURAL N/A 08/04/2023 STEREOTACTIC COMPUTER-ASSTD NAVIGATIONAL CRANIAL INTRADURAL (WRVU 3.75) performed by Rolly Dunlap MD at [facility] MAIN OR PRO UPPER GI ENDOSCOPY, DIAGNOSTIC N/A 06/11/2021 EGD, UPPER GI ENDOSCOPY performed by Guerda Coombs MD at [facility] ENDOSCOPY MEDS: acetaminophen, aspirin EC, atorvastatin, dexAMETHasone, fluconazole, levETIRAcetam, levothyroxine, magnesium citrate, [id number], omeprazole, ondansetron, pantoprazole EC, riboflavin (Vitamin B2), senna- docusate, temozolomide, and ubiquinone ALLERGY: Allergies Allergen Reactions Penicillins Hives PAT Penicillin Allergy Risk Assessment 06/13/2023: Low risk penicillin allergy. OK to receive full dose of cefazolin, cefuroxime, or any 3rd or 4th+ generation cephalosporin. FAMILY HX: Family History Problem Relation Age of Onset Cancer Brother Glaucoma Neg Hx Macular Degeneration Neg Hx Retinal Detachment Neg Hx SOCIAL HX: ETOH: Social Smoking: none Social History Socioeconomic History Marital status: Spouse name: Not on file Number of children: Not on file Years of education: Not on file Highest education level: Not on file Occupational History Not on file Tobacco Use Smoking status: Never Smokeless tobacco: Never Vaping Use Vaping status: Never Used Substance and Sexual Activity Alcohol use: Not Currently Drug use: No Sexual activity: Not on file Other Topics Concern Not on file Social History Narrative Maldonado grew up in [place], currently lives in [place] with his significant other June of 13 years.He has a daughter Joan who lives in [place]. 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 Enjoys photography - wants to share his files with his daughter and grandson. Camp up in [facility] on a herring, enjoys sailing with Anali. Loves his Shonda, not able to drive it right now but wants to again! June worked as an sales trainer, dance costume designer, and movement therapist. Social Determinants of Health Financial Resource Strain: Low Risk (08/22/2023) Overall Financial Resource Strain (CARDIA) Difficulty of Paying Living Expenses: Not hard at all Food Insecurity: No Food Insecurity (08/22/2023) Hunger Vital Sign Worried About Running Out of Food in the Last Year: Never true Ran Out of Food in the Last Year: Never true Transportation Needs: No Transportation Needs (08/22/2023) PRAPARE - Transportation Lack of Transportation (Medical): No Lack of Transportation (Non-Medical): No Physical Activity: Not on file Intimate Partner Violence: Not At Risk (08/04/2023) IPV Inpatient Questions Prevent Contact with Others: no Feels Threatened by Someone: no Feels Unsafe at Home: no Physical Signs of Abuse Present: no Housing Stability: Low Risk (08/22/2023) Housing Stability Vital Sign Unable to Pay for Housing in the Last Year: No Number of Times Moved in the Last Year: 0 Homeless in the Last Year: No PHYSICAL EXAM: Patient Vitals for the past 24 hrs: Temp Pulse Resp BP SpO2 10/04/23 1125 35.4 ??C (95.7 ??F) 69 17 102/64 98 % Physical Examination General : well developed, well-nourished, no acute distress HEENT : NCAT, sclera clear, oropharynx moist and without lesions, trachea midline Respiratory : CTA, No audible wheezing, on RA, speaking in full sentences Cardiovascular : RRR, +murmur, extremities warm and dry Musculoskeletal : Moves all extremities well Extremities : No pitting edema, no calf tenderness, no erythema Dermatological : No visible rashes or bruising Neurological Alert & oriented x 4. Attention and concentration intact. Speech clear, language intact. Some word-searching in casual conversation, has difficulty recalling names. PERRL, EOMi, gaze conjugate throughout, R upper quadranopia Face activates symmetrically Motor : 5 out of 5 bilateral upper and lower extremities Sensory : Light touch intact throughout No difficult with FNF testing Gait : Normal no significant ambulatory dysfunction, even gait and station, some difficulty with tandem walking. LABS: Last wbc, hgb, hct plt Recent Labs 10/04/23 0840 WBC 5.8 HGB 11.3* HCT 35.3* PLT 43K Last 3 LFTs Recent Labs 09/20/23 0941 09/06/23 1032 08/25/23 1007 AST 15 26 15 ALT 15 28 15 ALKPHOS 58 69 65 BILITOT 0.3 <0.2* 0.4 Surgical path report: DISCUSSION Hematoxylin and eosin staining of the specimen shows a hypercellular glial neoplasm with areas of pseudopalisading necrosis and microvascular proliferation. The tumor cells exhibit enlarge, hyperchromatic nuclei and occasional mitoti c figures. The adjacent brain parenchyma appears reactive with subpial Chaslin astrogliosis. THIS RESULT REQUIRES PHYSICIAN/A.P.P. FOLLOW UP ADDITIONAL STUDIES Formalin-fixed, paraffin-embedded tissue sections are studied using the polymer technique with appropriate positive and negative controls. These IHC studies provide the pathologist with adjunctive diagnostic information. Antibody specificity has been verified by testing antibodies on a series of in-house tissues with known immunohistochemical performance characteristics. The clinical interpretation of any antibody positive staining or its absence is evaluated within the context of clinical presentation, morphology, histopathological criteria and other diagnostic tests. Block Antibody Result B1 GFAP Highlight reactive brain parenchyma B1,B9 [id number] Negative B1 ATRX Retained B1 p53 approximately 5-10% B 1 Ki67 Up to 40% Send out pathology Test Result Flag Unit RefValue MGMT Promoter Methylation, Tumor Result Summary MGMT PROMOTER METHYLATION ABSENT Result SEE COMMENTS Provided diagnosis: brain glioblastoma Tumor tissue: Negative for MGMT promoter methylation Interpretation SEE COMMENTS Current data suggest that the absence of MGMT promoter methylation predicts lack of response to alkylating chemotherapy (i.e. temozolomide) for patients with glioblastoma. Therefore, the absence of MGMT promoter methylation in this tumor specimen suggests that such therapies may have limited value for this patient. Additionally, the absence of MGMT promoter methylation is an unfavorable prognostic factor for patients with glioblastoma. ADDITIONAL INFORMATION Microscopic examination was performed by a pathologist only to identify areas of tumor for enrichment by macrodissection. A methylation-specific PCR-based assay is used to test tumor DNA for the presence of MGMT gene promoter methylation. Test results should be interpreted in the context of clinical findings, family history, and other laboratory data. If results obtained do not match other clinical or laboratory findings, please contact the laboratory for possible interpretation. Misinterpretation of results may occur if the information provided is inaccurate or incomplete. Negative results do not rule out the presence methylation that may be present but below the limit of detection for this assay (approximately 15%). Though rare, mutations and variants within the regions of the MGMT promoter covered by the primers may result in failure to amplify the region or detect the presence of methylation. Negative results do not rule out the presence methylation that may be present in other CpG sites. This test was developed and its performance characteristics determined by [facility] in a manner consistent with CLIA requirements. This test has not been cleared or approved by the U.S. Food and Drug Administration. Additional Information SEE COMMENTS REFERENCES 1. N Engl J Med 2005;352(10):997-1003 (PMID: 51967852) 2. Wendi Rev Neurol 2010;6:39-51 (PMID: 03837079) 3. Lancet Oncol. 2012; 13:707-715 (PMID: [id number]) 4. Lancet Oncol. 2012; 13: 916-926 (PMID: 41084461) 5. Wendi Rev Neurol 2014;10:372-385 (PMID: 29341750) Specimen Tissue, Tumor Tissue ID [id number] Released by Kari Mares M.D., Ph.D. IMAGING STUDIES: COMPARISON: 08/05/2023, 07/30/2023 FINDINGS: There are surgical [...] prior study. No new or expanding mass. ASSESSMENT AND PLAN: #1.Left temporal glioblastoma, WHO Grade 4, IDH Wild type, Ki-67 index 40%, MGMT promoter methylation absent Presenting as difficulty with language and performing simple tasks (reading, working cell phone) along with reading difficulties and visual hallucinations. In further conversation, patient believe this started late winter, prior to knee surgery.. Gross resection on 08/04/23, Currently with VF quadranopia, improved language difficulties and worsening hearing on the left. Started radiation on 08/30/23 for 30 visits, 60Gy and on TMZ, 145mg nightly x 6 wks on 08/30/23. Will stop temodar today due to thrombocytopenia with repeat labs on Tuesday and on 10/10. Discussed risks of low platelets with patient and spouse and when to present to the ER. #2. Vasogenic edema - secondary to above. Will continue Keppra due to area being highly epileptogenic. Discussed that the swelling takes 4-6wks to go down but radiation will likely irritate brain tissue as well. #3. 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 Restarted on dexamethasone on 09/01 by radiation oncology. Patient states this has improved over the past 2 weeks Recommendation: Stop temozolomide due to thrombocytopenia. Repeat CBC on Tuesday and Tuesday again. Present to the ERwith uncontrollable nose bleed, bloody or pink urine, blood or tarry stools or any neuro changes. Discussed Optune again. Accessed website while in room to find contact number to answer more questions. Discussed needing some time for insurance approval if they decide to do this. Continue Keppra as prescribed, hold asa 81mg and celebrex until platelets recover, continue protonix due to steroid use, patient was instructed to avoid ibuprofen, tylenol ok Repeat labs Repeat MRI in 4wks with follow up after scan. Discussed increasing fluid intake at the beginning of the day. doesn't believe he's consuming as much as he thinks he is bc he doesn't want to use the bathroom so frequently. Did discuss renal function and the importance of fluid. Will discuss adjuvant chemotherapy after repeat MRI at next appointment Patient and encouraged to contact office with questions or concerns and to contact EMS if emergent issues arise. We reviewed signs and symptoms of urgent/emergent situations including but not limited to double vision, loss of vision, localizing or lateralizing weakness, severe headache, nausea/vomiting, seizureor sense of loss of time, CP, SOB etc with this patient and he agrees to present to the ER if any of these should occur. I spent 60 minutes with this patient, with greater than 50% of the time was spent in counseling andcoordination of care Belinda Peña PA-C * Navjot Grider MD - 10/04/2023 11:00 AM EDT Patient was evaluated dated 10/04/23 with MOMO Peña. Patient was personally examined evaluated, treatment options and plans were discussed. I agree with MOMO note entirety except documented below Assessment/plan Impression #1. Left temporal Glioblastoma, WHO grade 4, IDH wild type, MGMT unmethylated Presenting symtoms : He had a scheduled right TKA and after knee surgery he started having word finding difficulty, difficulty in comprehension and reading newspaper and short-term memory problem followed by visual hallucinations. MRI brain dated 07/28/23 suggestive of around 5 cm heterogeneously contrast- enhancing mass associated with significant vasogenic edema S/p left temporal craniectomy dated dated 08/04/23 near total surgical resection of left temporo contrast-enhancing mass by Dr Dunlap at [facility] and post-operative MRI brain dated 08/05/23 suggestive small residual contrast enhancing nodule in the left mesial temporal lobe. Reviewed final pathology report ; suggestive Left Temporal Glioblastoma, WHO grade 4, IDH negative.Ki-67 index 40%. Molecular results especially MGMT results are pending. Currently he is on concurrent chemoradiation treatment. Date of start 08/30/23 and tolerating fairly except Thrombocytopenia and mild-moderate fatigue. Platelet count 43K dated 10/04/23. 10/04/23 Clinically he reports he is doing well. There is significant interval improvement in his aphasia. He was able to name words, comprehension good except mild hard of hearing especially left ear, continued visual hallucinations but significant interval improvement from 50 episodes per day to15-20 episodes/day being on dexamethasone. Able to engage in his care as well. No focal neurological deficits neurological examination unremarkable except right upper superior quadrant visual deficit. KPS 80-90. Reviewed Lab CBC and CMP unremarkable except Platelet count 43K dated 10/04/23.Today wediscussed role of Optune in details and education was provided and resources reviewed..Patient to make decision for same. In view of significant thrombocytopenia 43K, discontinue Temozolamide. Date of discontinuation 10/04/23 Date of completion of Radiation treatment 10/12/23 We discussed he will be on one month break starting 10/13/23 , then we will plan to have MRI brain in 4 weeks. We will plan to start adjuvant chemotherapy temozolamide around November. Patient still has to decide about Optune. Patient is also seeking second opinion /possibility of clinical trials at outside institutions, I encouraged him for same for his reassurance. RECOMMENDATIONS In view of significant thrombocytopenia 43K, discontinue Temozolamide. Date of discontinuation 10/04/23 Date of completion of Radiation treatment 10/12/23 We discussed he will be on one month break starting 10/13/23 , then we will plan to have MRI brain in 4 weeks. We will plan to start adjuvant chemotherapy temozolamide around November. Patient still has to decide about Optune. Patient is also seeking second opinion /possibility of clinical trials at outside institutions, I encouraged him for same for his reassurance. Continue radiation treatment with followed by adjuvant chemotherapy Temodar X 6 months and indefinite Optune Repeat CBC on 10/07/23 and 10/10 No aspirin. No NSAIDs Continue Keppra 500 mg BID Go to [employer] website and read about OPTUNE TO MAKE DECISION FOR SAME Currently on dexamethasone 2mg daily. Dr Sharpe is tapering it down slowly. MRI brain with perfusion in 4 weeks Follow up in 4 weeks Please call or come to ER if you develop any focal neurological symptoms especially arm or leg weakness, balance/ambulatory dysfunctions, headache nausea vomiting, seizures or bleeding, leg swelling or shortness of breath etc. Case has been discussed in detail with patient, his and MOMO Peña. Multiple questions were answered to their satisfaction. They verbalized understanding. Time spent in coordinating care, reviewing lab data, discussing treatment options, formulating treatment plan and education is excess of 60 minutes documented in this encounter Miscellaneous Notes * Addendum Note - Isabell Jacob MD - 10/04/2023 11:00 AM EDTAddended by: ISABELL JACOB on: 10/13/2023 09:05 AM Modules accepted: Orders documented in this encounter Plan of Treatment Upcoming Encounters Date Type Department Care Team (Late st Contact Info) Description 10/27/2023 11:15 AM EDT Office Visit Palliative Medicine at [place] [id number] Elly Alston MD [facility] HOSPICE [place] [address] 10/27/2023 1:00 PM EDT Office Visit Speech Therapy at [place] [phone] Debra Franco, FOREIGN LANGUAGES PROFESSOR 11/03/2023 2:00 PM EDT Office Visit Speech Therapy at [place] [phone] Debra Franco, FOREIGN LANGUAGES PROFESSOR 11/08/2023 2:30 PM EDT Appointment MRI at [place] [phone] Navjot Grider MD [facility] [address] [place] [address] 11/09/2023 1:45 PM EDT Office Visit Hematology and Oncology at [place] [phone] Isabell Jacob MD [facility] [place] [address] 11/11/2023 10:30 AM EDT Office Visit Radiation Oncology at [place] [phone] Nicki Sharpe MD [facility] [place] [address] 11/15/2023 10:00 AM EDT Office [place] [phone] Debra Franco, FOREIGN LANGUAGES PROFESSOR 11/16/2023 9:00 AM EDT Office Visit H[place]ology [place] [address] Bisi Nam 11/22/2023 10:00 AM EDT Office [place] [address] Debra Franco, FOREIGN LANGUAGES PROFESSOR 11/30/2023 9:00 AM EDT Office Visit Hematology and Oncology at [place], [place] [address] Bisi Nam 12/14/2023 9:00 AM EDT Office Visit H[place]ology [place] [address] Bisi Nam 12/28/2023 9:00 AM EDT Office Visit Hematology [place] [address] Bisi Nam Scheduled Orders Name Type Priority Associated Diagnoses Orde r Schedule MRI Brain wwo Contrast (With Perfusion) Imaging Routine Glioblastoma of temporal lobe 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 use Expected: 11/08/2023 (Approximate), Expires: 10/03/2024 documented as of this encounter Goals Goal Patient Goal Type Associated Problems Recent Progress Patient-Stated? 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
--- OUTSIDE RECORDS SUMMARY | 2023-10-17 15:05 | XMS_ITS | Encounter Summary ---
Author Organization Formerly [facility] [place] [address] Care Team Providers Care Industrial Organizational Psychologist Name Role Phone Molina Herr MD Primary Care Provider [phone] Encounter Details Date Type Department Care Team (Latest Contact Info) Description 09/28/2023 Travel Social History Tobacco Use Types Packs/Day [...] doctor or pharmacy? Sometimes 08/22/[address] [facility] Utilities Answer Date Recorded In the past 12 months has [facility] [employer], gas, oil, or water [employer] threatened to shut off services in your [...] any time in the past [address] [facility], were you homeless or living [...] AM EDT Office Visit Pall[place] [address] Elly Alston MD [facility] HOSPICE [place] [address] 10/27/2023 1:00 PM EDT Office Visit [place] [address] Debra Franco, PHYSIOLOGIST 11/03/2023 2:00 PM EDT Office Visit [place] [address] Debra Franco, PHYSIOLOGIST 11/08/2023 2:30 PM EDT Appointment MRI at [place] [address] Navjot Grider MD [facility] [address] [place] [address] 11/09/2023 1:45 PM EDT Office Visit Hematology and Oncology at [address] Isabell Jacob MD [facility] [place] [address] 11/11/2023 10:30 AM EDT Office Visit Radiation Oncology at [address] Nicki Sharpe MD [facility] [place] [address] 11/15/2023 10:00 AM EDT Office Visit [place] [address] Debra Franco, ROLANDO 11/16/2023 9:00 AM EDT Office Visit Hematology [place] [address] Bisi Nam 11/22/2023 10:00 AM EDT Office Visit [place] [address] Debra Franco, ROLANDO 11/30/2023 9:00 AM EDT Office Visit Hematology [place] [address] Bisi Nam 12/14/2023 9:00 AM EDT Office Visit Hematology [place] [address] Bisi Nam 12/28/2023 9:00 AM EDT Office Visit Hematology [place] [address] Bisi Nam documented as of this encounter Goals Goal Patient Goal Type Associated Problems Recent Progress Patient-Stated? Author Patient's specific desired goal: Patient Facing Action Plan Andrei Lee, [facility] Note: Goal(s): maintain quality of [...] on filedocumented in this encounter Care Teams Industrial Organizational Psychologist Relationship Specialty Start Date End Date Molina Herr MD [facility] [address] [place] [address] PCP - General 01/27/10 documented as of this encounter
--- OUTSIDE RECORDS SUMMARY | 2023-10-17 15:05 | XMS_ITS | Encounter Summary ---
Author Organization [facility] [place] [address] Care Team Providers Care Quality Assurance Lab Technician Name Role Phone Molina Herr MD Primary Care Provider [phone] Encounter Details Date Type Department Care Team (Latest Contact Info) Description 2023 Travel Social History Tobacco Use Types Packs/Day [...] Recorded In the past 12 months has [facility] [employer], gas, oil, or water [employer] threatened to shut off services in your [...] any time in the past 12 m [facility], were you homeless or living in a residential (including now)? No 08/22/2023 IPV Inpatient Questions [...] AM EDT Office [place] [address] Elly Alston MD [facility] [address] HOSPICE AND [place] [address] 10/27/2023 1:00 PM EDT Office [place] [address] Debra Franco, DRY TRANSFER WORKER 11/03/2023 2:00 PM EDT Office [place] [address] Debra Franco, DRY TRANSFER WORKER 11/08/2023 2:30 PM EDT Appointment MRI at [place] [address] Navjot Grider MD [facility] DR HEMAT[place] [address] 11/09/2023 1:45 PM EDT Office Visit Hematology and Oncology at [address] Isabell Jacob MD [facility] [place] [address] 11/11/2023 10:30 AM EDT Office Visit Radiation Oncology at [address] Nicki Sharpe MD [facility] [place] [address] 11/15/2023 10:00 AM EDT Office [place] [address] Debra Franco, ROLANDO 11/16/2023 9:00 AM EDT Office Visit Hematology [place] [address] Bisi Nam 11/22/2023 10:00 AM EDT Office [place] [address] Debra Franco, ROLANDO 11/30/2023 9:00 AM EDT Office Visit Hematology [place] [address] Bisi Nam 12/14/2023 9:00 AM EDT Office Visit Hematology [place] [address] Bisi Nam 12/28/2023 9:00 AM EDT Office Visit Hematology [place] [address] Bisi Nam documented as of this encounter Goals Goal Patient Goal Type Associated Problems Recent Progress Patient-Stated? Author Patient's specific desired goal: Patient Facing Action Plan Andrei Lee, [facility] Note: Goal(s): maintain quality of life as much as possible Measured by: quality of life scale, ability to participate in activities which he enjoys and needs to do Time-frame: to be assessed at approximately the one year point by pharmacy, or sooner if patient asks to discuss documented as of this encounter Visit Diagnoses Not on filedocumented in this encounter Care Teams Quality Assurance Lab Technician Relationship Specialty Start Date End Date Molina Herr MD [facility] [address] [place] [address] PCP - General 01/27/10 documented as of this encounter
--- OUTSIDE RECORDS SUMMARY | 2023-10-17 15:05 | XMS_ITS | Encounter Summary ---
Author Organization Formerly [facility] Address [facility] [place] [address] Care Team Providers Care Rig Site Engineer Name Role Phone Molina Herr MD Primary Care Provider [phone] Encounter Details Date Type Department Care Team (Late st Contact Info) Description 10/04/2023 Orders Only [place]ematology [place] [address] Belinda Peña PA [facility] [address] 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 use (Primary Dx); Glioblastoma of temporal lobe Social History Tobacco [...] doctor or pharmacy? Sometimes 08/22/2023 [facility] Utilities Answer Date Recorded In the [...] any time in the past 12 m [facility], were you homeless or living in a prison (including now)? No 08/22/2023 IPV Inpatient Questions [...] AM EDT Office [place] [address] Elly Alston MD [facility] HOSPICE AND [place] [address] 10/27/2023 1:00 PM EDT Office [place] [address] Debra Franco, ROLANDO 11/03/2023 2:00 PM EDT Office Visit Speech Therapy at [place] [address] Debra Franco, WEATHERIZATION OPERATIONS MANAGER 11/08/2023 2:30 PM EDT Appointment MRI at [place] [phone] Navjot Grider MD [facility] [place] [address] 11/09/2023 1:45 PM EDT Office Visit Hematology and Oncology at [place] [address] Isabell Jacob MD [facility] [place] [address] 11/11/2023 10:30 AM EDT Office Visit Radiation Oncology at [place] [phone] Nicki Sharpe MD [facility] [place] [address] 11/15/2023 10:00 AM EDT Office [place] [address] Debra Franco, WEATHERIZATION OPERATIONS MANAGER 11/16/2023 9:00 AM EDT Office Visit Hematology [place] [address] Bisi Nam 11/22/2023 10:00 AM EDT Office [place] [address] Debra Franco, WEATHERIZATION OPERATIONS MANAGER 11/30/2023 9:00 AM EDT Office Visit Hematology [place] [address] Bisi Nam 12/14/2023 9:00 AM EDT Office Visit Hematology and Oncology at [facility] [place] [address] Bisi Nam 12/28/2023 9:00 AM EDT Office Visit Hematology and Oncology at [facility] [place] [address] Bisi Nam documented as of this encounter Goals Goal Patient Goal Type Associated Problems Recent Progress Patient-Stated? 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
--- OUTSIDE RECORDS SUMMARY | 2023-10-17 15:05 | XMS_ITS | Encounter Summary ---
Author Organization [facility] [address] Care Team Providers Care Food Service Tray Attendant Name Role Phone Molina Herr MD Primary Care Provider [phone] Encounter Details Date Type Department Care Team (Latest Contact Info) Description 09/20/2023 Travel Social History Tobacco Use Types Packs/Day [...] doctor or pharmacy? Sometimes 08/22/2023 [facility] Utilities Answer Date Recorded In the past 12 months has [facility] [employer], gas, oil, or water [employer] threatened to shut off services in your [...] AM EDT Office [place] [address] Elly Alston MD [facility] DR HOSPICE AND [place] [address] 10/27/2023 1:00 PM EDT Office [place] [address] Debra Franco, WEB APPLICATION DEVELOPER 11/03/2023 2:00 PM EDT Office [place] [address] Debra Franco, WEB APPLICATION DEVELOPER 11/08/2023 2:30 PM EDT Appointment MRI at [place] [address] Navjot Grider MD [facility] DR HEMATOLOGY [place] [address] 11/09/2023 1:45 PM EDT Office Visit Hematology and Oncology at [address] Isabell Jacob MD [facility] [place] [address] 11/11/2023 10:30 AM EDT Office Visit Radiation Oncology at [address] Nicki Sharpe MD [facility] [place] [address] 11/15/2023 10:00 AM EDT Office [place] [address] Debra Franco, ROLANDO 11/16/2023 9:00 AM EDT Office Visit Hematology [place] [address] Bisi Nam 11/22/2023 10:00 AM EDT Office [place] [address] Debra Franco, ROLANDO 11/30/2023 9:00 AM EDT Office Visit Hematology [place] [address] Bisi Nam 12/14/2023 9:00 AM EDT Office Visit Hematology [place] [address] Bisi Nam 12/28/2023 9:00 AM EDT Office Visit [place]ology [place] [address] Bisi Nam documented as of this encounter [...] on filedocumented in this encounter Care Teams Food Service Tray Attendant Relationship Specialty Start Date End Date Molina Herr MD [facility] [address] [place] [address] PCP - General 01/27/10 documented as of this encounter
--- OUTSIDE RECORDS SUMMARY | 2023-10-17 15:05 | XMS_ITS | Encounter Summary ---
[place] [address] Care Team Providers Care Medical Cost Consultant Name Role Phone Molina Herr MD Primary Care Provider [phone] Encounter Details Date Type Department Care Team (Late st Contact Info) Description 09/15/2023 Refill Hematology [place] [address] Tiny Robledo RN Social History Tobacco Use Types Packs/Day Years [...] from your doctor or pharmacy? Sometimes 08/22/2023 [facility] Utilities Answer Date Recorded In the [...] any time in the past 12 m [facility], were you homeless or living in a [...] encounter Miscellaneous Notes * Telephone Encounter - Tiny Robledo RN - 09/15/2023 1:48 PM EDTSummary: Medication Refill ----- Message from From Pharmacy sent at 09/15/2023 11:07 AM EDT ----- Could we get some more ondansetron to go with his next round of radiation Temodar? Thanks, Nhi Loving, [facility] Pharmacy Received request for refill of ondansetron. Per review of medical record, refill appears to be appropriate. Last prescribed 08/25/23 Last appointment 09/05/23 Next appointment 09/20/23 Script prepared and sent to provider for review, signature and escribe. documented in this encounter Plan of Treatment Upcoming Encounters Date Type Department Care Team (Late st Contact Info) Description 10/27/2023 11:15 AM EDT Office Visit Palliative Medicine at [place] [address] Elly Alston MD [facility] DR HOSPICE [place] [address] 10/27/2023 1:00 PM EDT Office Visit Speech Therapy at [place] [address] Debra Franco, STEM MOUNTER 11/03/2023 2:00 PM EDT Office Visit Speech Therapy at [place] [phone] Debra Franco, STEM MOUNTER 11/08/2023 2:30 PM EDT Appointment MRI at [place] [address] Navjot Grider MD [facility] DR [place] [address] 11/09/2023 1:45 PM EDT Office Visit Hematology and Oncology at [place] [address] Isabell Jacob MD [facility] [place] [address] 11/11/2023 10:30 AM EDT Office Visit Radiation Oncology at [address] Nicki Sharpe MD [facility] [place] [address] 11/15/2023 10:00 AM EDT Office Visit [place] [address] Debra Franco STEM MOUNTER 11/16/2023 9:00 AM EDT Office Visit Hematology [place] [address] Bisi Nam 11/22/2023 10:00 AM EDT Office Visit [place] [address] Dbera Franco STEM MOUNTER 11/30/2023 9:00 AM EDT Office Visit Hematology [place] [address] Bisi Nam 12/14/2023 9:00 AM EDT Office Visit Hematology [place] [address] Bisi Nam 12/28/2023 9:00 AM EDT Office Visit Hematology [place] [address] Bisi Nam documented as of this encounter Goals Goal Patient Goal Type Associated Problems Recent Progress Patient-Stated? Author Patient's specific desired goal: Patient Facing Action Plan Andrei Lee, [facility] Note: Goal(s): maintain [...] on filedocumented in this encounter Care Teams Medical Cost Consultant Relationship Specialty Start Date End Date Molina Herr MD [facility] [address] [place] [address] PCP - General 01/27/10 documented as of this encounter
--- OUTSIDE RECORDS SUMMARY | 2023-10-17 15:05 | XMS_ITS | Encounter Summary ---
Author Organization [facility] [place] [address] Care Team Providers Care Heating Plant Superintendent Name Role Phone Molina Herr MD Primary Care Provider [phone] Encounter Details Date Type Department Care Team (Latest Contact Info) Description 09/21/2023 Travel Social History Tobacco Use Types Packs/Day [...] your doctor or pharmacy? Sometimes 08/22/2023 [facility] Utilities Answer Date Recorded In the past 12 months has [facility] [employer], gas, oil, or water [employer] threatened to shut off services in your [...] in the past 12 m [facility], were you homeless or living in a [...] AM EDT Office Visit [place] [address] Elly Alston MD [facility] [address] HOSPICE [place] [address] 10/27/2023 1:00 PM EDT Office [place] [address] Debra Franco, MILK RECEIVER TANK TRUCK 11/03/2023 2:00 PM EDT Office [place] [address] Debra Franco, MILK RECEIVER TANK TRUCK 11/08/2023 2:30 PM EDT Appointment MRI at [place] [address] Navjot Grider MD [facility] [address] HEMATOLOGY [place] [address] 11/09/2023 1:45 PM EDT Office Visit Hematology and Oncology at [address] Isabell Jacob MD [facility] [place] [address] 11/11/2023 10:30 AM EDT Office Visit Radiation Oncology at [address] Nicki Sharpe MD [facility] [address] [place] [address] 11/15/2023 10:00 AM EDT Office Visit [place] [address] Debra Franco, ROLANDO 11/16/2023 9:00 AM EDT Office Visit Hematology [place] [address] Bisi Nam 11/22/2023 10:00 AM EDT Office [place] [address] Debra Franco, ROLANDO 11/30/2023 9:00 AM EDT Office Visit Hematology [place] [address] Bisi Nam 12/14/2023 9:00 AM EDT Office Visit Hematology [place] [address] Bisi Nam 12/28/2023 9:00 AM EDT Office Visit Hematology [place] [address] Bisi Nam documented as of this encounter Goals Goal Patient Goal Type Associated Problems Recent Progress Patient-Stated? Author Patient's specific desired goal: Patient Facing Action Plan Andrei Lee, [facility] Note: Goal(s): maintain quality of [...] on filedocumented in this encounter Care Teams Heating Plant Superintendent Relationship Specialty Start Date End Date Molina Herr MD [facility] [address] [place] [address] PCP - General 01/27/10 documented as of this encounter
--- OUTSIDE RECORDS SUMMARY | 2023-10-17 15:05 | XMS_ITS | Encounter Summary ---
[place] [address] Care Team Providers Care Utilization Management Um Nurse Name Role Phone Molina Herr MD Primary Care Provider [phone] Encounter Details Date Type Department Care Team (Late st Contact Info) Description 09/30/2023 Telephone [place] [phone] Amira Perea Social History Tobacco Use Types Packs/Day Years [...] from your doctor or pharmacy? Sometimes 08/22/2023 [facility] Utilities Answer Date Recorded In the [...] any time in the past 12 m [facility], were you homeless or living in a [...] AM EDT Office Visit [place] [address] Elly Alston MD [facility] DR HOSPICE [place] [address] 10/27/2023 1:00 PM EDT Office Visit [place] [address] Debra Franco, PROCUREMENT TECHNICIAN 11/03/2023 2:00 PM EDT Office Visit Speech Therapy at [place] [phone] Debra Franco, PROCUREMENT TECHNICIAN 11/08/2023 2:30 PM EDT Appointment MRI at [address] Navjot Grider MD [facility] DR [place] [address] 11/09/2023 1:45 PM EDT Office Visit Hematology and Oncology at [address] Isabell Jacob MD [facility] [place] [address] 11/11/2023 10:30 AM EDT Office Visit Radiation Oncology at [place] [phone] Nicki Sharpe MD [facility] [place] [address] 11/15/2023 10:00 AM EDT Office Visit [place] [address] Debra Franco, ROLANDO 11/16/2023 9:00 AM EDT Office Visit Hematology [place] [address] Bisi Nam 11/22/2023 10:00 AM EDT Office Visit [place] [address] Debra Franco, ROLANDO 11/30/2023 9:00 AM EDT Office Visit Hematology [place] [address] Bisi Nam 12/14/2023 9:00 AM EDT Office Visit Hematology [place] [address] Bisi Nam 12/28/2023 9:00 AM EDT Office Visit Hematology [place] [address] Bisi Nam documented as of this encounter Goals Goal Patient Goal Type Associated Problems Recent Progress Patient-Stated? Author Patient's specific desired goal: Patient Facing Action Plan No Andrei Egan, [facility] Note: Goal(s): maintain quality of life as much as possible Measured by: quality of life scale, ability to participate in activities which he enjoys and needs to do Time-frame: to be assessed at approximately the one year point by pharmacy, or sooner if patient asks to discuss documented as of this encounter Visit Diagnoses Not on filedocumented in this encounter Care Teams Utilization Management Um Nurse Relationship Specialty Start Date End Date Molina Herr MD [facility] [address] [place] [address] PCP - General 01/27/10 documented as of this encounter
--- OUTSIDE RECORDS SUMMARY | 2023-10-17 15:05 | XMS_ITS | Encounter Summary ---
[facility] [place] [address] Care Team Providers Care Machine Heel Sprayer Name Role Phone Molina Herr MD Primary Care Provider [phone] Reason for Visit * Speech Therapy (Routine) - Authorized Specialty Diagnoses / Procedures Referred By Contac t Referred To Contact Speech Therapy Diagnoses Brain tumor RFV aphasia - please sched CURT. Debra would be preferred, but any of the neuro rewrite editor are fine. Michael Lundberg MD [facility] [place] [address] [place] [address] [facility] [place] [address] Referral ID Status Reason Start Date Expiration Date Visits Requested Visits Authorized [id number] Authorized Evaluate and Treat 08/06/2023 08/05/2024 100 100 Encounter Details Date Type Department Care Team (Latest Contact Info) Description 09/27/2023 10:00 AM EDT Office [place] [address] Debra Franco, MIDDLEWARE ADMINISTRATOR Cognitive communication disorder; Brain tumor Social History [...] from your doctor or pharmacy? Sometimes 08/22/2023 [facility] Utilities Answer Date Recorded In the [...] in the past [address] [facility], were you homeless or living in a custodial (including now)? 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 right hand dominant male who was seen on 08/24/2023 for an Outpatient Evzpnv-Aifvsgjw-Ftwbrosww Evaluation. He is known to this clinician [...] review, Maldonado was seen by Radiation Oncology since our last visit. No acute events have occurred per patient-report. Subjective: Maldonado was encountered in the outpatient rehab office, unaccompanied. He was pleasant and engaged throughout this session. Endorsed feeling tired secondary to busy weekend. Objective: Pt seen for speech therapy targeting aphasia and cognitive- communication and demonstrated the following: Pain: Did not appear to be in acute distress. Cognitive-Linguistic Intervention: Formal Interview: Maldonado stated word-finding difficulties are a mixed bag. Trouble with confrontation naming from a stack of photos. He has still been working on Constant Therapy as a high-level home exercise program. Added spelling tasks to Constant Therapy. Education: Maldonado was provided education through a collaborative discussion about memory strategies for cognitive-communication disorders and word-finding strategies. Also provided education on CancerRelated Cognitive Impairment (CRCI). Education was provided in order to support understanding and choice- making, which is linked to motivation and outcomes in treatment. The patient demonstrated knowledge through asking appropriate questions and describing how to implement these strategies into dayto day activities. No overt instances of word-finding difficulties today Semantic Feature Analysis (SFA): Semantic Feature Analysis [...] the properties or description of it. Trial 1:Butterfly- 6/6 with minimal cueing; Unable to name word. Trial 2: Ladder- 6/6 independently. Trial 3: Flame- 6/6 with minimal cueing. Phonological Components Analysis (DOCUMENT MANAGEMENT TECHNICIAN): Phonological Components Analysis is a treatment approach based off of the principles and structure of SFA. It targets word-finding skills through the direct stimulation of phonological categories. Ptwas provided with a target picture and was asked to identify the first sound, another word that starts with that sound (first sound associate), final sound, rhyming word, and number of syllables. Trial 1: Butterfly- 4/5 with moderate cueing plus one with maximum cueing. Able to name word when provided phonemic cueing. Trial 2: Ladder- 5/5 given minimal cueing. Trial 3: Flame- 5/5 given minimal cueing. Education: Maldonado has been educated on results and recommendations and verbalized understanding/agreement. At the end of the session he denied outstanding questions or concerns. Home Exercise Program (HEP) Recommendations: Free adriana suggestions: Cine[employer]LoopNet Cross LV Sensors.Talkbits (choose complex level games such as gin rummy, spit, etc.) Lingraphica TalkPath Therapy (iPad only, or on desktop website) Paid adriana suggestions: Constant Therapy: good for different language skills Brain HQ: different activities targeting attention, memory, processing speed, etc. Free online word games: Wordle Mohan Quordle NYT Daily Mini Crossword Phrazle Offline activities: Plan a trip in a large city (e.g., [facility], [place]) and research your routes, tickets, places to [...] of tools provided to you by your MIDDLEWARE ADMINISTRATOR. Play offline/live word games with family/friends Reading: start at the sentence-level and work your way up. Try to read and work through each troublesome word before moving on. Assessment: Perfecto Okeefe was seen on 09/27/2023 for a follow-up MIDDLEWARE ADMINISTRATOR visit. Addressed treatment goals targeting word-finding through the implementation of Semantic Feature Analysis and Phonological Components Analysis. Support needs ranged from independent to minimal cueing across trials today. Re-educated on importance of high-intensity home exercise program as detailed below. Patient stated he has more time this week to dedicate to homework exercises. Homework: continue with constant therapy; memory card games; Semantic Feature Analysis and Phonological Components Analysis worksheets Pt will benefit from continued therapeutic interventions [...] you put somethingdown Association: linking old information (terminal block assembler memory) with new information such as taking medicine with breakfast External memory strategies: Write things down in a partner integration planner or on a calendar Set timers [...] the word, like playing a game of Desecuritrex. Even gesturing with your hands in a [...] mind??? I'll ask you later.?? Adapted from: https://[employer].ShareHows/ztvv-kqrzclj-uxnivdxdmw-aphasia/ Speech Therapy Goals: All ongoing unless otherwise [...] with 90% accuracy given min fading cues. Intermediate Goals: - Patient will be able to demonstrate independence w/ higher level cognitive demands in home, community, and work environments, utilizing compensatory and support strategies independently as needed, for successful return to prior level of function. - Patient will independently demonstrate compensatory and support strategies to improve communicative effectiveness in his current living environment. Plan: - Recommend skilled MIDDLEWARE ADMINISTRATOR services, 60 minute sessions, 10 sessions. - Implementation of a HEP Debra Franco MS, [facility]-MIDDLEWARE ADMINISTRATOR Speech-Language Pathologist Pager # [phone] documented in this encounter Plan of Treatment Upcoming Encounters Date Type Department Care Team (Late st Contact Info) Description 10/27/2023 11:15 AM EDT Office [place] [address] Elly Alston MD [facility] HOSPICE [place] [address] 10/27/2023 1:00 PM EDT Office Visit Speech Therapy at [place] [phone] Debra Franco, MIDDLEWARE ADMINISTRATOR 11/03/2023 2:00 PM EDT Office Visit Speech Therapy at [place] [phone] Debra Franco, MIDDLEWARE ADMINISTRATOR 11/08/2023 2:30 PM EDT Appointment MRI at [address] Navjot Grider MD [facility] [address] [place] [address] 11/09/2023 1:45 PM EDT Office Visit Hematology [place] [address] Isabell Jacob MD [facility] [place] [address] 11/11/2023 10:30 AM EDT Office Visit Radiation Oncology at [address] Nicki Sharpe MD [facility] [place] [address] 11/15/2023 10:00 AM EDT Office Visit Speech Therapy at [place] [phone] Debra Franco, MIDDLEWARE ADMINISTRATOR 11/16/2023 9:00 AM EDT Office Visit Hematology [place] [address] Bisi Nam 11/22/2023 10:00 AM EDT Office Visit Speech Therapy at [place] [phone] Debra Franco, MIDDLEWARE ADMINISTRATOR 11/30/2023 9:00 AM EDT Office Visit Hematology [place] [address] Bisi Nam 12/14/2023 9:00 AM EDT Office Visit Hematology [place] [address] Bisi Nam 12/28/2023 9:00 AM EDT Office Visit Hematology [place] [address] [place] Namth Gareth documented as of this encounter Goals Goal Patient Goal Type Associated Problems Recent Progress Patient-Stated? Author Patient's specific desired goal: Patient Facing Action Plan No Andrei Egan, [facility] Note: Goal(s): maintain [...] brain documented in this encounter Care Teams Machine Heel Sprayer Relationship Specialty Start Date End Date Molina Herr MD [facility] [address] [place] [address] PCP - General 01/27/10 documented as of this encounter
--- OUTSIDE RECORDS SUMMARY | 2023-10-17 15:05 | XMS_ITS | Encounter Summary ---
Author Organization [facility] [place] [address] Care Team Providers Care Corporate Wellness Coordinator Name Role Phone Molina Herr MD Primary Care Provider Encounter Details Date Type Department Care Team (Latest Contact Info) Description 09/30/2023 Travel Social History Tobacco Use Types Packs/Day [...] Recorded In the past 12 months has [facility] [employer] 911, gas, oil, or water [employer] threatened to shut off services in your [...] time in the past 12 m [facility], were you homeless or living in a [...] AM EDT Office [place] [address] Elly Alston MD [facility] HOSPICE [place] [address] 10/27/2023 1:00 PM EDT Office [place] [address] Debra Franco, CONCRETE FINISHER 11/03/2023 2:00 PM EDT Office [place] [address] Debra Franco, CONCRETE FINISHER 11/08/2023 2:30 PM EDT Appointment MRI at [place] [address] Navjot Grider MD [facility] [address] [place] [address] 11/09/2023 1:45 PM EDT Office Visit Hematology and Oncology at [address] Isabell Jacob MD [facility] [place] [address] 11/11/2023 10:30 AM EDT Office Visit Radiation Oncology at [address] Nicki Sharpe MD [facility] [place] [address] 11/15/2023 10:00 AM EDT Office [place] [address] Debra Franco, ROLANDO 11/16/2023 9:00 AM EDT Office Visit Hematology [place] [address] Bisi Nam 11/22/2023 10:00 AM EDT Office [place] [address] Debra Franco, ROLANDO 11/30/2023 9:00 AM EDT Office Visit Hematology [place] [address] Bisi Nam 12/14/2023 9:00 AM EDT Office Visit Hematology [place] [address] Bisi Nam 12/28/2023 9:00 AM EDT Office Visit Hematology [place] [address] Bisi Nam documented as of this encounter Goals Goal Patient Goal Type Associated Problems Recent Progress Patient-Stated? Author Patient's specific desired goal: Patient Facing Action Plan Andrei Lee, [facility] Note: Goal(s): maintain quality [...] on filedocumented in this encounter Care Teams Corporate Wellness Coordinator Relationship Specialty Start Date End Date Molina Herr MD [facility] [address] [place] [address] PCP - General 01/27/10 documented as of this encounter
--- OUTSIDE RECORDS SUMMARY | 2023-10-17 15:05 | XMS_ITS | Encounter Summary ---
Author Organization [facility] [place] [address] Care Team Providers Care Energy Systems Laboratory Director Name Role Phone Molina Herr MD Primary Care Provider Encounter Details Date Type Department Care Team (Latest Contact Info) Description 10/03/2023 Travel Social History Tobacco Use Types Packs/Day [...] from your doctor or pharmacy? Sometimes 08/22/2023 [facility] Utilities Answer Date Recorded In the past 12 months has [facility] [employer], gas, oil, or water [employer] threatened to shut off services in your [...] any time in the past 12 m [facility], were you homeless or living in a chcf (including now)? No 08/22/2023 IPV Inpatient Questions [...] AM EDT Office [place] [address] Elly Alston MD [facility] HOSPICE [place] [address] 10/27/2023 1:00 PM EDT Office [place] [address] Debra Franco, CMM INSPECTOR 11/03/2023 2:00 PM EDT Office [place] [address] Debra Franco, CMM INSPECTOR 11/08/2023 2:30 PM EDT Appointment MRI at [place] [address] Navjot Grider MD [facility] [place] [address] 11/09/2023 1:45 PM EDT Office Visit Hematology and Oncology at [address] Isabell Jacob MD [facility] [place] [address] 11/11/2023 10:30 AM EDT Office Visit Radiation Oncology at [address] Nicki Sharpe MD [facility] [place] [address] 11/15/2023 10:00 AM EDT Office [place] [address] Debra Franco, ROLANDO 11/16/2023 9:00 AM EDT Office Visit Hematology [place] [address] Bisi Nam 11/22/2023 10:00 AM EDT Office [place] [address] Debra Franco, ROLANDO 11/30/2023 9:00 AM EDT Office Visit Hematology [place] [address] Bisi Nam 12/14/2023 9:00 AM EDT Office Visit Hematology [place] [address] Bisi Nam 12/28/2023 9:00 AM EDT Office Visit Hematology [place] [address] Bisi Nam documented as of this encounter Goals Goal Patient Goal Type Associated Problems Recent Progress Patient-Stated? Author Patient's specific desired goal: Patient Facing Action Plan Andrei Lee, [facility] Note: Goal(s): maintain quality of life as much as possible Measured by: quality of life scale, ability to participate in activities which he enjoys and needs to do Time-frame: to be assessed at approximately the one year point by pharmacy, or sooner if patient asks to discuss documented as of this encounter Visit Diagnoses Not on filedocumented in this encounter Care Teams Energy Systems Laboratory Director Relationship Specialty Start Date End Date Molina Herr MD [facility] [address] [place] [address] PCP - General 01/27/10 documented as of this encounter
--- OUTSIDE RECORDS SUMMARY | 2023-10-17 15:05 | XMS_ITS | Encounter Summary ---
Author Organization [facility] [place] [address] Care Team Providers Care Rn Surgery Icu Name Role Phone Molina Herr MD Primary Care Provider [phone] Reason for Visit * Reason Comments Follow-up Encounter Details Date Type Department Care Team (Late st Contact Info) Description 09/20/2023 3:15 PM EDT Office Visit [place] [phone] Navjot Grider MD [facility] HEMATOLOGY [place] [address] Glioblastoma of temporal lobe (Primary Dx) Social History Tobacco Use Types [...] any time in the past 12 m [facility], were you homeless or living in a jail (including now)? No 08/22/2023 DH IPV Inpatient [...] Sign Reading Time Taken Comments Blood Pressure 108/70 09/20/2023 2:56 PM EDT Pulse 69 09/20/2023 2:56 PM EDT Temperature 36.3 ??C (97.3 ??F) 09/20/2023 2:56 PM ED T Respiratory Rate - - Oxygen Saturation 99% 09/20/2023 2:56 PM EDT Inhaled Oxygen Concentration - - Weight 81.1 kg (178 lb 12.8 oz) 09/20/2023 2:56 PM EDT Height 172.7 cm (5' 8) 09/20/2023 2:56 PM EDT Body Mass Index 27.19 09/20/2023 2:56 PM EDT documented in this encounter Patient Instructions * Patient Instructions* Belinda Peña PA - 09/20/2023 3:15 PM EDT - drink plenty of water, please call the office if you start to develop mouth ulcers. 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 Concurrent temodar 145mg daily HPI: 82 y.o. male with history of hpl, hypothyroid [...] word- finding gets worseas the day progresses. Visit date : He c/o visual hallucinations which he describes as shadows and also text writing itself, episodes of this ~50x/day that lasts seconds. He c/o continued word-searching and somedifficulty reading and understanding words, worse at the [...] Moribund, rapidly progressive fatal disease processes 0% REVIEW OF SYSTEMS: General: denies fever, chills, unexplained weight loss HEENT: denies blurred vision, double vision, voice [...] or numbness, denies frequent falls Psych: denies depression or anxiety. Denies SI PAST MEDICAL HISTORY: Past Medical History: Diagnosis Date Hyperlipidemia Lumbar degenerative disc disease 08/21/2010 Past Surgical History: Procedure Laterality Date PRO ARTHROPLASTY KNEE CONDYLE & PLATEAU MEDIAL & LAT COMPARTMENTS Right 07/05/2023 TOTAL KNEE ARTHROPLASTY (WRVU 19.6) performed by Ernie Fuchs MD at [facility] MAIN OR PRO COLONOSCOPY, BIOPSY 01/10/2013 COLONOSCOPY FLEXIBLE, WITH BX performed by Dominick Earl MD at [facility] ENDOSCOPY PRO COLONOSCOPY, REMV LESN, SNARE N/A 01/12/2018 COLONOSCOPY, POLYPECTOMY, REMOVAL LESION BY SNARE (WRVU 4.67) performed by Guerda Coombs MD at [facility] ENDOSCOPY PRO COLONOSCOPY, REMV LESN, SNARE N/A 01/20/2023 COLONOSCOPY, POLYPECTOMY, REMOVAL LESION BY SNARE (WRVU 4.57) performed by Guerda Coombs MD at [facility] ENDOSCOPY PRO EXCIS SUPRATENT BRAIN TUMOR Left 08/04/2023 @CRANI, FOR TUMOR, SUPRATENTORIAL, NOT MENINGIOMA (WRVU 30.83) performed by Rolly Dunlap MD at [facility] MAIN OR PRO LAP, APPENDECTOMY N/A 03/09/2017 LAPAROSCOPIC APPENDECTOMY (WRVU 9.45) performed by Saurav Chen MD at [facility] OR PRO MICROSURG TECHNIQUES, REQ OPER MICROSCOPE N/A 08/04/2023 MICROSCOPE USE (WRVU 3.46) performed by Rolly Dunlap MD at [facility] OR PRO STEREOTACTIC CPTR ASSTD PX CRANIAL, INTRADURAL N/A 08/04/2023 STEREOTACTIC COMPUTER-ASSTD NAVIGATIONAL CRANIAL INTRADURAL (WRVU 3.75) performed by Rolly Dunlap MD at [facility] MAIN OR PRO UPPER GI ENDOSCOPY, DIAGNOSTIC N/A 06/11/2021 EGD, UPPER GI ENDOSCOPY performed by Guerda Coombs MD at [facility] ENDOSCOPY MEDS: acetaminophen, aspirin EC, atorvastatin, dexAMETHasone, fluconazole, levETIRAcetam, levothyroxine, magnesium citrate, qftkoctrvakqu-WH-ygkg, omeprazole, ondansetron, pantoprazole EC, riboflavin (Vitamin B2), [...] Social History Narrative Maldonado grew up in [place], currently lives in [facility] with his significant other Juen of 13 years.He has a daughter Joan who lives in [place]. His son in 2021; Maldonado is close to his grandson wholives in [place]. 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 In senior care, has volunteered at - worked here in the ED to support patients & families - motivated tosupport people who were alone. Enjoys photography - wants to share his files with his daughter and grandson. Camp up in [place] on a herring, enjoys sailing with Anali. Loves his Shonda, not able to drive it right now but wants to again! June worked as an bilingual trainer, landscape horticulture instructor, and movement therapist. Social Determinants of Health [...] for the past 24 hrs: Temp Pulse BP SpO2 09/20/23 1456 36.3 ??C (97.3 ??F) 69 108/70 99 % Physical Examination General : well developed, [...] and concentration intact. Speech clear, language intact. I do not slat pickler any word-searching or paraphasic error at this visit today. Able to name objects and readsimple text. PERRL, EOMi, gaze conjugate throughout, R upper quadranopia Face activates symmetrically Motor : 5 out of 5 bilateral upper and lower extremities Sensory : Light touch intact throughout No difficult with FNF testing Gait : Normal no significant ambulatory dysfunction LABS: Last wbc, hgb, hct plt Recent Labs 09/20/23 0941 WBC 11.8* HGB 11.6* HCT 36.1* Last 3 LFTs Recent Labs 09/20/23 0941 [...] B1 GFAP Highlight reactive brain parenchyma B1,B9 [id number] Negative B1 ATRX Retained B1 p53 approximately [...] developed and its performance characteristics determined by [facility] in a manner consistent with CLIA requirements. This test has not been cleared or approved by the U.S. Food and Drug Administration. Additional Information SEE COMMENTS REFERENCES 1. N Engl J Med 2005;352(10):997-1003 (PMID: 06653516) 2. Wendi Rev Neurol 2010;6:39-51 (PMID: 26669808) 3. Lancet Oncol. 2012; 13:707-715 (PMID: 43211143) 4. Lancet Oncol. 2012; 13: 916-926 (PMID: 38939628) 5. Wendi Rev Neurol 2014;10:372-385 (PMID: [id number]) Specimen Tissue, Tumor Tissue ID [id number] Released by Kari Mares M.D., Ph.D. IMAGING [...] TMZ, 145mg nightly x 6 wks on 08/30/23 currently without adverse effects. #2. Vasogenic edema - secondary to above. Will continue Keppra due to area being highly epileptogenic. Discussed that the swelling takes 4-6wks to go down but radiation will likely irritate brain tissue as well. #3. 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 Restarted on dexamethasone on 09/01 by radiation oncology. Patient states today that this hasn't changed much. Recommendation: Continue temozolamide 145mg nightly and radiation, started on 08/30/23 x 6weeks. Discussed side effects of this med. Will keep prescription for zofran and senna for potential nausea and constipation but patient was instructed to take only as needed. Plan to follow with adjuvant temodar x 6mths. Discussed Optune again. Encouraged patient and to get on website and read about this. Discussed needing some time for insurance approval if they decide to do this. Continue Keppra as prescribed, ok to go back to asa 81mg, continue protonix due to steroid use, patient was instructed to avoid ibuprofen, tylenol ok Continue weekly CBC and biweekly CMP x 4 wks. Discussed increasing fluid intake at the beginning of the day. doesn't believe he's consuming as much as he thinks he is bc he doesn't want to use the bathroom so frequently. Did discuss renal function and the importance of fluid. Plan to obtain MRI brain every 2 mths (next one end of October, early nov) Follow up in person in 2 wks Patient and partner encouraged to contact office with questions or [...] any of these should occur. I spent 45 minutes with this patient, with greater than 50% of the time was spent in counseling andcoordination of care MURPHY [place] * Navjot Grider MD - 09/20/2023 3:15 PM EDT Patient was evaluated dated 09/20/23 with MOMO Peña. Patient was personally examined [...] temporo contrast-enhancing mass by Dr Dunlap at [facility] and post-operative MRI brain dated 08/05/23 suggestive small residual contrast enhancing nodule in the left mesial temporal lobe. Reviewed final pathology report ; suggestive Left Temporal Glioblastoma, WHO grade 4, IDH negative.Ki-67 index 40%. Molecular results especially MGMT results are pending. Currently he is on concurrent chemoradiation treatment. Date of start 08/30/23 and tolerating well. 09/20/23 Clinically he reports he is doing well. There is significant interval improvement in his aphasia. He was able to name words, comprehension good except mild hard of hearing especially left ear, continued visual hallucination in spite being on dexamethasone. Able to engage in his care as well. No focal neurological deficits neurological examination unremarkable except right upper superior quadrant visual deficit. KPS 80-90. Reviewed Lab CBC and CMP unremarkable.Today we discussed role ofOptune in details and education was provided.Patient to make decision for same. RECOMMENDATIONS Continue concurrent chemoradiation treatment with Temodar followed by adjuvant chemotherapy TemodarX 6 months and indefinite Optune Continue Temodar dose 145 mg.Start date 08/30/23. Recommend weekly CBC with differential and CMP every other week while on concurrent chemoradiation treatment Continue Keppra 500 mg BID Go to [employer] website and read about OPTUNE TO MAKE DECISION FOR SAME Currently on dexamethasone. Dr sharpe is tapering it down slowly. Follow up in 2 weeks Please call or come to ER [...] treatment plan and education is excess of 45 minutes documented in this encounter Miscellaneous Notes * Addendum Note - Navjot Grider MD - 09/20/2023 3:15 PM EDTAddended by: NAVJOT GRIDER on: 09/23/2023 02:35 PM Modules accepted: Level of Service documented in this encounter Plan of Treatment Upcoming Encounters Date Type Department Care Team (Late st Contact Info) Description 10/27/2023 11:15 AM EDT Office Visit Palliative Medicine at [place] [address] Elly Alston MD [facility] HOSPICE AND [place] [address] 10/27/2023 1:00 PM EDT Office Visit Speech Therapy at [place] [address] Debra Franco, AVIATION PROJECT MANAGER 11/03/2023 2:00 PM EDT Office Visit Speech Therapy at [place] [address] Debra Franco, AVIATION PROJECT MANAGER 11/08/2023 2:30 PM EDT Appointment MRI at [place] [address] Navjot Grider MD [facility] DR HEMATOLOGY [place] [address] 11/09/2023 1:45 PM EDT Office Visit Hematology and Oncology at [place] [address] Isabell Jacob MD [facility] [place] [address] 11/11/2023 10:30 AM EDT Office Visit Radiation Oncology at [place] [phone] Nicki Sharpe MD [facility] [place] [address] 11/15/2023 10:00 AM EDT Office [place] [address] Debra Franco, AVIATION PROJECT MANAGER 11/16/2023 9:00 AM EDT Office Visit H[place]ology [place] [address] Bisi Nam 11/22/2023 10:00 AM EDT Office [place] [address] Debra Franco, AVIATION PROJECT MANAGER 11/30/2023 9:00 AM EDT Office Visit [place] [address] Bisi Nam 12/14/2023 9:00 AM EDT Office Visit [place] [address] Bisi Nam 12/28/2023 9:00 AM EDT Office Visit [place] [address] Bisi Nam documented as of this encounter [...] brain documented in this encounter Care Teams Rn Surgery Icu Relationship Specialty Start Date End Date Molina Herr MD [facility] [address] [place] [address] PCP - General 01/27/10 documented as of this encounter
--- OUTSIDE RECORDS SUMMARY | 2023-10-17 15:05 | XMS_ITS | Encounter Summary ---
Author Organization [facility] [place] [address] Care Team Providers Care Market Development Analyst Name Role Phone Molina Herr MD Primary Care Provider [phone] Reason for Visit * Reason Comments On Treatment Visit Encounter Details Date Type Department Care Team (Late st Contact Info) Description 09/30/2023 8:30 AM EDT Office [place] [phone] Nicki Sharpe MD [facility] [place] [address] Glioblastoma of temporal lobe (Primary Dx) Social [...] any time in the past 12 m [facility], were you homeless or living in a prison (including now)? No 08/22/2023 DH IPV Inpatient [...] Sign Reading Time Taken Comments Blood Pressure 118/76 09/30/2023 8:38 AM EDT Pulse 73 09/30/2023 8:38 AM EDT Temperature 35.7 ??C (96.2 ??F) 09/30/2023 8:38 AM ED T Respiratory Rate - - Oxygen Saturation 97% 09/30/2023 8:38 AM EDT Inhaled Oxygen Concentration - - Weight - - Height - - Body Mass Index - - documented in this encounter Progress Notes * Nicki Sharpe MD - 09/30/2023 8:30 AM EDT Images from the original note were not included. [facility] Medicine Radiation Oncology Radiation Oncology On-Treatment Note [...] progress: Today's Date: 09/30/23 Radiation Therapy Dose: 44Gy, 22 fractions Clinical Trial: no n Clinical course: [...] seizure like activity. He has endorsed having crapping in his hands. n Exam: Vitals in flowsheet General: Well [...] place and time, fluid language, Cranial nerves intact, no pronator drift, Negative Romberg, no tremor, 5/5 strength in upper and lower extremities bilaterally, normal sensation, normal coordination, normal gait, no dysarthria n Assessment: Perfecto Polk is a 83 y.o.M with newly diagnosed glioblastoma s/p GTR. He is receiving 60 Gy in 30 fractions of radiation treatment with concurrent temozolomide. n Follow-up/plan: Continue treatment as planned. Continue steroids to 2mg of dexamethasone daily in the morning with breakfast and PPI . Will assessif it is okay to taper next week. Discussed that if his headache worsens that he can increase his steroids back to 3mg daily. Added magnesium and phosphorus test to his next labs due to crapping Instructed on signs and symptoms to watch out for and when to call or go to the ED Encouraged to contact us with any additional questions or concerns Will schedule a follow-up visit for ~ 4 weeks after completion of radiation Nicki Sharpe MD, PhD [facility] Cancer [place] Radiation Oncology [facility] [place] ([facility]) [facility] [employer] Commission on Cancer (ACS Aldo) Accredited Cancer Program [employer] (ACR) Accredited Radiation Oncology Program documented in this encounter Plan of Treatment Upcoming Encounters Date Type Department Care Team (Late st Contact Info) Description 10/27/2023 11:15 AM EDT Office [place] [address] Elly Alston MD [facility] HOSPICE [place] [address] 10/27/2023 1:00 PM EDT Office Visit Speech Therapy at [place] [phone] Debra Franco, FIRE ALARM DISPATCHER 11/03/2023 2:00 PM EDT Office [place] [address] Debra Franco, FIRE ALARM DISPATCHER 11/08/2023 2:30 PM EDT Appointment MRI at [place] [phone] Navjot Grider MD [facility] [address] [place] [address] 11/09/2023 1:45 PM EDT Office Visit Hematology and Oncology at [place] [phone] Isabell Jacob MD [facility] [place] [address] 11/11/2023 10:30 AM EDT Office Visit Radiation Oncology at [place] [phone] Nicki Sharpe MD [facility] [place] [address] 11/15/2023 10:00 AM EDT Office [place] [phone] Debra Franco, FIRE ALARM DISPATCHER 11/16/2023 9:00 AM EDT Office Visit Hematology [place] [phone] Bisi Nam 11/22/2023 10:00 AM EDT Office [place] [phone] Debra Franco SLP 11/30/2023 9:00 AM EDT Office Visit H[place]ology [place] [address] Bisi Nam 12/14/2023 9:00 AM EDT Office Visit [place] [address] Bisi Nam 12/28/2023 9:00 AM EDT Office Visit [place] [address] Bisi Nma documented as of this encounter Goals Goal [...] documented as of this encounter Results * Phosphorus (10/04/2023 8:40 AM EDT) Phosphorus 4.1 2.5 - 4.5 mg/dL [facility] Blood 10/04/2023 8:40 AM EDT 10/04/2023 8:44 AM EDT Narrative Resulting Agency Comment Spec In Lab Nicki Sharpe MD CHEMISTRY ORDERABLES [facility] [place] [address] * Magnesium (10/04/2023 8:40 AM EDT) Magnesium 0.95 0.69 - 1.07 mmol/L [facility] Blood 10/04/2023 8:40 AM EDT 10/04/2023 8:44 AM EDT Narrative Resulting Agency Comment Spec In Lab Nicki Sharpe MD CHEMISTRY ORDERABLES [facility] [place] [address] documented in this encounter Visit Diagnoses Diagnosis Glioblastoma of temporal lobe- Primary Malignant neoplasm of temporal lobe of brain documented in this encounter Care Teams Market Development Analyst Relationship Specialty Start Date End Date Molina Herr MD [facility] [address] [place] [address] PCP - General 01/27/10 documented as of this encounter
--- OUTSIDE RECORDS SUMMARY | 2023-10-17 15:05 | XMS_ITS | Encounter Summary ---
Author Organization Formerly [facility] [place] [address] Care Team Providers Care Sports Trainer Name Role Phone Molina Herr MD Primary Care Provider [phone] Encounter Details Date Type Department Care Team (Latest Contact Info) Description 09/27/2023 8:49 AM EDT - 09/27/2023 11:59 PM EDT Hospital Encounter [place] [address] Glioblastoma of temporal lobe; High [...] from your doctor or pharmacy? Sometimes 08/22/2023 [facility] Utilities Answer Date Recorded In [...] in a alf (including now)? No 08/22/2023 [facility] IPV Inpatient [...] Sig Dispensed Refills Start Date End Date MAGNESIUM CITRATE ORAL Take 450 mg by [...] 20 mg by mouth daily. 4 03/08/2014 [id number] (SOURCE CF) 200-10 mcg-mg Chew Take 1 [...] Office Visit Palliative Medicine at [place] [address] Elly Alston MD [facility] [address] HOSPICE AND [place] [address] 10/27/2023 1:00 PM EDT Office Visit Speech Therapy at [place] [address] Debra Franco, HARDWARE ENGINEER 11/03/2023 2:00 PM EDT Office Visit Speech Therapy at [place] [address] Debra Franco, HARDWARE ENGINEER 11/08/2023 2:30 PM EDT Appointment MRI at [place] [address] Navjot Grider MD [facility] [address] HEMATOLOGY [place] [address] 11/09/2023 1:45 PM EDT Office Visit Hematology and Oncology at [place] [address] Isabell Jacob MD [facility] [place] [address] 11/11/2023 10:30 AM EDT Office Visit Radiation Oncology at [place] [address] Nicki Sharpe MD [facility] [place] [address] 11/15/2023 10:00 AM EDT Office Visit Speech Therapy at [place] [phone] Debra Franco, HARDWARE ENGINEER 11/16/2023 9:00 AM EDT Office Visit [place] [address] Bisi Nam 11/22/2023 10:00 AM EDT Office Visit [place] [address] Debra Franco SLP 11/30/2023 9:00 AM EDT Office Visit Hematology [place] [address] Bisi Nam 12/14/2023 9:00 AM EDT Office Visit Hematology [place] [address] Bisi Nam 12/28/2023 9:00 AM EDT Office Visit Hematology [place] [address] Bisi Nam documented as of this encounter Goals Goal Patient Goal Type Associated Problems Recent Progress Patient-Stated? Author Patient's specific desired goal: Patient Facing Action Plan Andrei Lee, [facility] Note: Goal(s): maintain quality of life as much as possible Measured by: quality of life scale, ability to participate in activities which he enjoys and needs to do Time-frame: to be assessed at approximately the one year point by pharmacy, or sooner if patient asks to discuss documented as of this encounter Procedures Procedure Name Priority Date/Time Associated Diagnosis Comments HEMOGRAM Routine 09/27/2023 9:02 AM EDT Glioblastoma of temporal lobe 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 use DIFFERENTIAL, AUTOMATED Routine 09/27/2023 9:02 AM EDT Glioblastoma of temporal lobe 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 use CBC (WITH DIFF) Routine 09/27/2023 9:02 AM EDT Glioblastoma of temporal lobe 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 use documented in this encounter Results * Differential, Automated (09/27/2023 9:02 AM EDT) Neutrophil % 72.4 % [facility] Neutrophil Absolute 5.60 1.70 - 6.10 x10(3)/[facility] Lymph % 11.2 % [facility] Lymphocytes Abs 0.9 0.9 - 3.2 x10(3)/[facility] Monocyte % 10.6 % [facility] Monocyte Abs 0.8 0.3 - 0.9 x10(3)/[facility] Eos % 4.9 % [facility] Eosinophils Abs 0.4 0.0 - 0.4 x10(3)/[facility] Basophil % 0.5 % [facility] Baso Absolute 0.0 0.0 - 0.1 x10(3)/[facility] Immature Gran % 0.40 % [facility] Comment: Immature granulocytes(IG's)percentage and absolute count will include metamyelocytes, myelocytes, and promyelocytes. Blood smears from CBCs yielding IG's will be scanned manually for concordance. If this scan disagrees with the automated IG or if promyelocytes are noted, a manual differential will be performed. Immature Gran Absolute 0.03 0.00 - 0.04 x10(3)/[facility] Blood 09/27/2023 9:02 AM EDT 09/27/2023 9:41 AM EDT Narrative Resulting Agency Comment Spec In Lab Belinda ARRINGTON HEMATOLOGY ORDERABLE S [facility] [place] [address] * (ABNORMAL) Hemogram (09/27/2023 9:02 AM EDT) White Blood Cell 7.7 4.0 - 9.5 x10(3)/mc L [facility] Red Blood Cell 4.07(L) 4.58 - 5.54 x10(6)/ L [facility] Hemoglobin 11.3(L) 13.7 - 16.5 g/dL [facility] Hematocrit 35.4(L) 40.5 - 48.5 % [facility] Mean Cell Volume 87.0 82.9 - 93.1 fL [facility] Mean Cell Hemoglobin 27.8 27.5 - 32.1 pg [facility] Mean Cell Hemoglobin Concentration 31.9(L) 32.0 - 35.7 g/dL [facility] Platelet 140(L) 145 - 357 x10(3)/mc L [facility] RDW Standard Deviation 52.7(H) 36.0 - 45.0 fL [facility] RDW coefficient of variation 16.8(H) 11.4 - 13.8 % [facility] Mean Platelet Volume 8.5 7.6 - 12.9 fL [facility] NRBC% auto 0.0 % [facility] NRBC Absolute 0.000 0.000 - 0.000 x10(3)/mc L [facility] Blood 09/27/2023 9:02 AM EDT 09/27/2023 9:41 AM EDT Narrative Resulting Agency Comment Spec In Lab Belinda ARRINGTON HEMATOLOGY ORDERABLE S [facility] [place] [address] documented in this encounter Visit Diagnoses Diagnosis Glioblastoma of temporal lobe Malignant neoplasm of temporal lobe of brain 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 use Encounter for long-term (current) use of other medications documented in this encounter Care Teams Sports Trainer Relationship Specialty Start Date End Date Molina Herr MD [address] [place] [address] PCP - General 01/27/10 documented as of this encounter
--- OUTSIDE RECORDS SUMMARY | 2023-10-17 15:05 | XMS_ITS | Encounter Summary ---
Author Organization [facility] [place] [address] Care Team Providers Care Flame Burner Name Role Phone Molina Herr MD Primary Care Provider [phone] Encounter Details Date Type Department Care Team (Latest Contact Info) Description 09/27/2023 Travel Social History Tobacco Use Types Packs/Day [...] your doctor or pharmacy? Sometimes 08/22/2023 [facility] Utilities Answer Date Recorded In the past [address] [facility], gas, oil, or water [employer] threatened to shut off services in your [...] in a mcfp (including now)? No 08/22/2023 IPV Inpatient Questions [...] AM EDT Office Visit [place] [address] Elly Alston MD [facility] [address] HOSPICE [place] [address] 10/27/2023 1:00 PM EDT Office Visit [place] [address] Debra Franco, FUEL EFFICIENT AIRCRAFT DESIGNER 11/03/2023 2:00 PM EDT Office Visit [place] [address] Debra Franco, FUEL EFFICIENT AIRCRAFT DESIGNER 11/08/2023 2:30 PM EDT Appointment MRI at [place] [address] Navjot Grider MD [facility] [address] [place] [address] 11/09/2023 1:45 PM EDT Office Visit Hematology and Oncology at [address] Isabell Jacob MD [facility] [place] [address] 11/11/2023 10:30 AM EDT Office Visit Radiation Oncology at [address] Nicki Sharpe MD [facility] [place] [address] 11/15/2023 10:00 AM EDT Office Visit [place] [address] Debra Franco, ROLANDO 11/16/2023 9:00 AM EDT Office Visit Hematology [place] [address] Bisi Nam 11/22/2023 10:00 AM EDT Office Visit [place] [address] Debra Franco, ROLANDO 11/30/2023 9:00 AM EDT Office Visit Hematology [place] [address] Bisi Nam 12/14/2023 9:00 AM EDT Office Visit Hematology [place] [address] Bisi Nam 12/28/2023 9:00 AM EDT Office Visit Hematology [place] [address] Bisi Nam documented as of this encounter Goals Goal Patient Goal Type Associated Problems Recent Progress Patient-Stated? Author Patient's specific desired goal: Patient Facing Action Plan Andrei Lee, [facility] Note: Goal(s): maintain quality of [...] on filedocumented in this encounter Care Teams Flame Burner Relationship Specialty Start Date End Date Molina Herr MD [facility] [address] [place] [address] PCP - General 01/27/10 documented as of this encounter
--- OUTSIDE RECORDS SUMMARY | 2023-10-17 15:05 | XMS_ITS | Encounter Summary ---
Author Organization [facility] [place] [address] Care Team Providers Care Court Orderly Name Role Phone Molina Herr MD Primary Care Provider [phone] Encounter Details Date Type Department Care Team (Latest Contact Info) Description 10/04/2023 8:31 AM EDT - 10/04/2023 11:59 PM EDT Hospital Encounter [place] [address] Glioblastoma of temporal lobe; High [...] from your doctor or pharmacy? Sometimes 08/22/2023 [facility] Utilities Answer Date Recorded In the [...] any time in the past 12 m [facility], were you homeless or living [...] 20 mg by mouth daily. 4 03/08/2014 [id number] (SOURCE CF) 200-10 mcg-mg Chew Take 1 [...] AM EDT Office Visit Palliative Medicine at [place] [address] Elly Alston MD [facility] [address] HOSPICE AND [place] [address] 10/27/2023 1:00 PM EDT Office Visit Speech Therapy at [place] [address] Debra Franco, PROPOSAL DIRECTOR 11/03/2023 2:00 PM EDT Office Visit Speech Therapy at [place] [address] Debra Franco, PROPOSAL DIRECTOR 11/08/2023 2:30 PM EDT Appointment MRI at [place] [address] Navjot Grider MD [facility] [address] HEMATOLOGY [place] [address] 11/09/2023 1:45 PM EDT Office Visit Hematology and Oncology at [place] [address] Isabell Jacob MD [facility] [place] [address] 11/11/2023 10:30 AM EDT Office Visit Radiation Oncology at [place] [address] Nicki Sharpe MD [facility] [place] [address] 11/15/2023 10:00 AM EDT Office Visit Speech Therapy at [place] [phone] Debra Franco, PROPOSAL DIRECTOR 11/16/2023 9:00 AM EDT Office Visit Hematology [place] [address] Bisi Nam 11/22/2023 10:00 AM EDT Office Visit Speech Therapy [place] [address] Debra Franco, PROPOSAL DIRECTOR 11/30/2023 9:00 AM EDT Office Visit Hematology [place] [address] Bisi Nam 12/14/2023 9:00 AM EDT Office Visit [place] [address] Bisi Nam 12/28/2023 9:00 AM EDT Office Visit [place] [address] Bisi Nam Scheduled Orders Name Type Priority Associated Diagnoses Orde r Schedule CBC (with Diff) Lab Routine Glioblastoma of temporal lobe 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 use 1 Occurrences starting 10/04/2023 until 10/04/2023 documented as of this encounter Goals Goal Patient Goal Type Associated Problems Recent Progress Patient-Stated? Author Patient's specific desired goal: Patient Facing Action Plan Andrei Lee, [facility] Note: Goal(s): maintain quality of life as much as possible Measured by: quality of life scale, ability to participate in activities which he enjoys and needs to do Time-frame: to be assessed at approximately the one year point by pharmacy, or sooner if patient asks to discuss documented as of this encounter Procedures Procedure Name Priority Date/Time Associated Diagnosis Comments HEMOGRAM Routine 10/04/2023 8:40 AM EDT Glioblastoma of temporal lobe 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 use DIFFERENTIAL, AUTOMATED Routine 10/04/2023 8:40 AM EDT Glioblastoma of temporal lobe 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 use CBC (WITH DIFF) Routine 10/04/2023 8:40 AM EDT Glioblastoma of temporal lobe 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 use PHOSPHORUS Routine 10/04/2023 8:40 AM EDT Glioblastoma of temporal lobe MAGNESIUM Routine 10/04/2023 8:40 AM EDT Glioblastoma of temporal lobe documented in this encounter Results * (ABNORMAL) Differential, Automated (10/04/2023 8:40 AM EDT) Neutrophil % 69.7 % [facility] Neutrophil Absolute 4.04 1.70 - 6.10 x10(3)/mc L [facility] Lymph % 14.0 % [facility] Lymphocytes Abs 0.8(L) 0.9 - 3.2 x10(3)/mc L [facility] Monocyte % 9.3 % [facility] Monocyte Abs 0.5 0.3 - 0.9 x10(3)/mc L [facility] Eos % 6.2 % [facility] Eosinophils Abs 0.4 0.0 - 0.4 x10(3)/mc L [facility] Basophil % 0.3 % [facility] Baso Absolute 0.0 0.0 - 0.1 x10(3)/mc L [facility] Immature Gran % 0.50 % [facility] Comment: Immature granulocytes(IG's)percentage and absolute count will include metamyelocytes, myelocytes, and promyelocytes. Blood smears from CBCs yielding IG's will be scanned manually for concordance. If this scan disagrees with the automated IG or if promyelocytes are noted, a manual differential will be performed. Immature Gran Absolute 0.03 0.00 - 0.04 x10(3)/mc L [facility] Blood 10/04/2023 8:40 AM EDT 10/04/2023 8:44 AM EDT Narrative Resulting Agency Comment Spec In Lab Belinda ARRINGTON HEMATOLOGY ORDERABLE S [facility] [place] [address] * (ABNORMAL) Hemogram (10/04/2023 8:40 AM EDT) [facility] White Blood Cell 5.8 4.0 - 9.5 x10(3)/[facility] Red Blood Cell 4.05(L) 4.58 - 5.54 x10(6)/[facility] Hemoglobin 11.3(L) 13.7 - 16.5 g/dL [facility] Hematocrit 35.3(L) 40.5 - 48.5 % [facility] Mean Cell Volume 87.2 82.9 - 93.1 [facility] Mean Cell Hemoglobin 27.9 27.5 - 32.1 pg [facility] Mean Cell Hemoglobin Concentration 32.0 32.0 - 35.7 g/dL [facility] Platelet 43(L) 145 - 357 x10(3)/[facility] RDW Standard Deviation 54.3(H) 36.0 - 45.0 [facility] RDW coefficient of variation 17.3(H) 11.4 - 13.8 % [facility] Mean Platelet Volume 8.5 7.6 - 12.9 [facility] NRBC% auto 0.0 % [facility] NRBC Absolute 0.000 0.000 - 0.000 x10(3)/[facility] Blood 10/04/2023 8:40 AM EDT 10/04/2023 8:44 AM EDT Narrative Resulting Agency Comment Spec In Lab Belinda ARRINGTON HEMATOLOGY ORDERABLE S [facility] [place] [address] * Magnesium (10/04/2023 8:40 AM EDT) [facility] Magnesium 0.95 0.69 - 1.07 mmol/L [facility] Blood 10/04/2023 8:40 AM EDT 10/04/2023 8:44 AM EDT Narrative Resulting Agency Comment Spec In Lab Nicki Sharpe MD CHEMISTRY ORDERABLES Performing Organization Address City/[facility] Co de Phone Number [facility] [place] [address] * Phosphorus (10/04/2023 8:40 AM EDT) Phosphorus 4.1 2.5 - 4.5 mg/dL [facility] Blood 10/04/2023 8:40 AM EDT 10/04/2023 8:44 AM EDT Narrative Resulting Agency Comment Spec In Lab Nicki Sharpe MD CHEMISTRY ORDERABLES Performing Organization Address City/[facility] Co de Phone Number [facility] [place] [address] documented in this encounter Visit Diagnoses Diagnosis Glioblastoma of temporal lobe Malignant neoplasm of temporal lobe of brain 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 use Encounter for long-term (current) use of other medications documented in this encounter Care Teams Court Orderly Relationship Specialty Start Date End Date Molina Herr MD [address] [place] [address] PCP - General 01/27/10 documented as of this encounter
--- OUTSIDE RECORDS SUMMARY | 2023-10-17 15:05 | XMS_ITS | Encounter Summary ---
Author Organization [facility] [place] [address] Care Team Providers Care Outsole Beveler Name Role Phone Molina Herr MD Primary Care Provider [phone] Encounter Details Date Type Department Care Team (Latest Contact Info) Description 09/19/2023 Travel Social History Tobacco Use Types Packs/Day [...] from your doctor or pharmacy? Sometimes 08/22/2023 [facility] Utilities Answer Date Recorded In the past 12 months has [facility] [employer], gas, oil, or water [employer] threatened to shut off services in your [...] in the past 12 m [facility], were you homeless or living in a fci (including now)? No 08/22/2023 IPV Inpatient Questions [...] AM EDT Office [place] [address] Elly Alston MD [facility] [address] HOSPICE [place] [address] 10/27/2023 1:00 PM EDT Office [place] [address] Debra Franco, FIREARMS SALES ASSOCIATE 11/03/2023 2:00 PM EDT Office [place] [address] Debra Franco, FIREARMS SALES ASSOCIATE 11/08/2023 2:30 PM EDT Appointment MRI at [place] [address] Navjot Grider MD [facility] [address] [place] [address] 11/09/2023 1:45 PM EDT Office Visit Hematology and Oncology at [address] Isabell Jacob MD [facility] [place] [address] 11/11/2023 10:30 AM EDT Office Visit Radiation Oncology at [address] Nicki Sharpe MD [facility] [place] [address] 11/15/2023 10:00 AM EDT Office [place] [address] Debra Franco, ROLANDO 11/16/2023 9:00 AM EDT Office Visit Hematology [place] [address] Bisi Nam 11/22/2023 10:00 AM EDT Office [place] [address] Debra Franco, ROLANDO 11/30/2023 9:00 AM EDT Office Visit Hematology [place] [address] Bisi Nam 12/14/2023 9:00 AM EDT Office Visit Hematology [place] [address] Bisi Nam 12/28/2023 9:00 AM EDT Office Visit [place]ematology [place] [address] Bisi Nam documented as of this encounter [...] on filedocumented in this encounter Care Teams Outsole Beveler Relationship Specialty Start Date End Date Molina Herr MD [facility] [address] [place] [address] PCP - General 01/27/10 documented as of this encounter
--- OUTSIDE RECORDS SUMMARY | 2023-10-17 15:05 | XMS_ITS | Encounter Summary ---
[place] [address] Care Team Providers Care Printed Circuit Photographer Name Role Phone Molina Herr MD Primary Care Provider [phone] Reason for Visit * Reason Comments Follow-up 07/05/2023 RIGHT TKA Encounter Details Date Type Department Care Team (Latest Contact Info) Description 09/21/2023 9:10 AM EDT Office Visit [place] [phone] Clinic, Dr Fuchs Team None Primary osteoarthritis of left knee (DJD) Social History Tobacco Use Types Packs/Day Years [...] from your doctor or pharmacy? Sometimes 08/22/2023 [facility] Utilities Answer Date Recorded In [...] Sign Reading Time Taken Comments Blood Pressure - - Pulse - - Temperature - - Respiratory Rate - - Oxygen Saturation - - Inhaled Oxygen Concentration - - Weight 79.8 kg (176 lb) 09/21/2023 8:52 AM EDT Height 172.7 cm (5' 8) 09/21/2023 8:52 AM EDT Body Mass Index 26.76 09/21/2023 8:52 AM EDT documented in this encounter Progress Notes * Wilda, MURPHY Foss - 09/21/2023 9:10 AM EDT Arthroplasty/Orthopaedic History: R TKA, 06/21/23, Shila HPI: Perfecto Polk is a very pleasant 83 y.o. year-old male and is now 3 months post right total knee replacement. The patient has been doing well in regards to his knee. Since last visit he has had a craniotomy and been diagnosed with a glioblastoma. He is considering his treatment options and feels that he is well supported by his neuro-onc team. No fevers, chills, nausea, vomiting, or symptoms of infection. Perfecto has been ambulating with no assistive device and working on HEP. He is not taking narcotic pain medicine. ROS: Denies: fever, chills, night sweats, nausea, or vomiting Ht 172.7 cm (5' 8) Wt 79.8 kg (176 lb) BMI 26.76 kg/m?? Physical Exam: Well-appearing male in no acute distress. Alert and Oriented x 3 and answers all questions appropriately. The incision is well healed, with no signs of infection. Post Op Right Knee Exam: Knee ROM: Extension:0 Flexion: 120 Alignment: 0-4 degrees Neutral Stability: A/P Translation <5mm. Varus <5mm Valgus <5mm Extension La degrees or less Patella Tracking: Normal Pulses Palpable: Right PT: Yes Right DP:Yes Motor/Sensory: Distal Motor: Normal Distal Sensory: Normal Quadriceps Strength: 5 X-RAYS: Multiple radiographic views were obtained at my request and personally reviewed by me with the patient. X-rays show a well-placed prosthesis with no evidence of fracture, subsidence, loosening, or periprosthetic complication. Questionnaire Responses: 09/20/2023 [facility] Surgical Postop Visit PROMIS-10 General Health Very Good PROMIS-10 Quality of Life Very Good PROMIS-10 Physical Health Very Good PROMIS-10 Mental Health Very Good PROMIS-10 Social Activity Good PROMIS-10 Everyday Activities Moderately PROMIS-10 Pain 0 -No Pain PROMIS-10 Fatigue Mild PROMIS-10 Social Roles Good PROMIS-10 Anxious or Depressed Never PROMIS PHYSICAL HEALTH SCORE 50.8 PROMIS MENTAL HEALTH SCORE 53.3 KOOS JR Scores 79.91 Problems with surgical incision/wound after surgery No Gone to ER since knee surgery No Admitted to hospital since recent ortho surgery Yes [facility] Reason you went to hospital [facility] for glioblastoma and subsequent radiation therapy and chemotheray Additional surgery on same body part No TKA Grade 10 Pain in other KNEE None Back pain at this moment None Satisfaction with Treatment Satisfied Choose Same Treatment Again Definitely yes 09/20/2023 [facility] Response KOOS JR Scores 79.91 09/20/2023 [facility] Response KOOS JR Scores 79.91 ASSESSMENT/PLAN: Mr. Polk is a 83 y.o. year old male status post right total knee replacement. Doing well postoperatively. Continue weightbearing as tolerated and working on range of motion. We willsee him back at the surgical anniversary for repeat evaluation. X-rays will be needed at that time.Patient may return to normal activities as his pain and function allow. We discussed the appropriate precautions surrounding dental prophylaxis; according to the AAOS Appropriate Use Criteria we do not recommend antibiotic use prior to dental procedures for Perfecto. If Perfecto has any changes in health status we recommend he contact our office prior to dental procedures for updated recommendations We also discussed maintaining good foot care and giving prompt attention to any source of infectionthroughout the body including foot ulcers and urinary tract infections. All questions were answered. Signed: MURPHY Coombs documented in this encounter Plan of Treatment Upcoming Encounters Date Type Department Care Team (Late st Contact Info) Description 10/27/2023 11:15 AM EDT Office Visit Palliative [place] [address] Elly Alston MD [facility] DR HOSPICE AND [place] [address] 10/27/2023 1:00 PM EDT Office Visit [place] [address] Debra Franco, BOX CAR CHECKER 11/03/2023 2:00 PM EDT Office Visit [place] [address] Debra Franco, BOX CAR CHECKER 11/08/2023 2:30 PM EDT [place] [phone] Navjot Grider MD [facility] DR HEMATOLOGY [place] [address] 11/09/2023 1:45 PM EDT Office Visit Hematology and Oncology at [place] [address] Isabell Jacob MD [facility] [place] [address] 11/11/2023 10:30 AM EDT Office Visit Radiation Oncology at [place] [address] Nicki Sharpe MD [facility] [place] [address] 11/15/2023 10:00 AM EDT Office Visit Speech Therapy at [place] [phone] Debra Franco, BOX CAR CHECKER 11/16/2023 9:00 AM EDT Office Visit Hematology and Oncology at [place] [phone] Bisi Nam 11/22/2023 10:00 AM EDT Office Visit Speech Therapy at [place] [phone] Debra Franco, BOX CAR CHECKER 11/30/2023 9:00 AM EDT Office Visit Hematology [place] [address] Bisi Nam 12/14/2023 9:00 AM EDT Office Visit Hematology [place] [address] Bisi Nam 12/28/2023 9:00 AM EDT Office Visit Hematology [place] [address] Bisi Nam documented as of this encounter Goals Goal Patient Goal Type Associated Problems Recent Progress Patient-Stated? Author Patient's specific desired goal: Patient Facing Action Plan No Andrei Egan, [facility] Note: Goal(s): maintain quality of life as much as possible Measured by: quality of life scale, ability to participate in activities which he enjoys and needs to do Time-frame: to be assessed at approximately the one year point by pharmacy, or sooner if patient asks to discuss documented as of this encounter Visit Diagnoses Diagnosis Primary osteoarthritis of left knee (DJD) Primary localized osteoarthrosis, lower leg documented in this encounter Care Teams Printed Circuit Photographer Relationship Specialty Start Date End Date Molina Herr MD [address] [place] [address] PCP - General 01/27/10 documented as of this encounter
--- OUTSIDE RECORDS SUMMARY | 2023-10-17 15:05 | XMS_ITS | Encounter Summary ---
Author Organization [facility] [place] [address] Care Team Providers Care Guidance Services Coordinator Name Role Phone Molina Herr MD Primary Care Provider [phone] Reason for Visit * Speech Therapy (Routine) - Authorized Specialty Diagnoses / Procedures Referred By Contac t Referred To Contact Speech Therapy Diagnoses Brain tumor RFV aphasia - please sched CURT. Debra would be preferred, but any of the neuro forming operator are fine. Michael Lundberg MD [facility] [place] [address] [facility] Institution [place] [address] Referral ID Status Reason Start Date Expiration Date Visits Requested Visits Authorized [id number] Authorized Evaluate and Treat 08/06/2023 08/05/2024 100 100 Encounter Details Date Type Department Care Team (Latest Contact Info) Description 2023 2:00 PM EDT Office [place] [address] Debra Franco, HAZARDOUS MATERIAL SPECIALIST Cognitive communication disorder; Brain tumor Social History [...] your doctor or pharmacy? 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 right hand dominant male who was seen on 08/24/2023 for an Outpatient Sfkmfh-Oufdgydj-Cyhmaqaxj Evaluation. He is known to this clinician [...] chart review, Maldonado was seen by Radiation Oncology, Palliative Care, Hematology and Oncology, and Orthopaedics since our last visit. Subjective: Maldonado was encountered in the outpatient rehab office, unaccompanied. He was pleasant and engaged throughout this session. Objective: Pt seen for speech therapy targeting aphasia and cognitive- communication and demonstrated the following: Pain: Did not appear to be in acute distress. Cognitive-Linguistic Intervention: Formal Interview: Maldonado endorsed persistent word-finding difficulties, specifically noted in Constant Therapy. Has been doing the memory card game, up to 8 cards. Has been working on Constant Therapy - set up with clinician today who added homework assignments Education: Maldonado was provided education through a [...] implement these strategies into dayto day activities. Five instances of word-finding difficulties today Utilized circumlocution (describing) to talk around the word and was able to find 60% of words on his own Two semantic paraphasias One real word, phonemically related paraphasia Semantic Feature Analysis (SFA): Semantic Feature Analysis [...] properties or description of it. Trial 1: 08/10 with moderate cueing Trial 2: 08/10 with minimal cueing Trial 3: 08/10 with minimal cueing Trial 4: Completed when having active word-finding difficulty- 08/10 with minimal cueing Phonological Components Analysis (MITER SAW OPERATOR): Phonological Components Analysis is a treatment approach based off of the principles and structure of SFA. It targets word-finding skills through the direct stimulation of phonological categories. Ptwas provided with a target picture and was asked to identify the first sound, another word that starts with that sound (first sound associate), final sound, rhyming word, and number of syllables. Trial 1: 5/5 with moderate cueing Trial 2: 5/5 with moderate cueing Trial 3: 5/5 with minimal cueing Trial 4: Completed when having active word-finding difficulty- 04/11 with maximum cueing Education: Maldonado has been educated on results and recommendations and verbalized understanding/agreement. At the end of the session he denied outstanding questions or concerns. Home Exercise Program (HEP) Recommendations: Free adriana suggestions: Notion Systems Cross [address]Fullbridge (choose complex level games such as gin rummy, spit, etc.) Ling[employer]ica TalkPath Therapy (iPad only, or on desktop website) Paid adriana suggestions: Constant Therapy: good for different language skills Brain HQ: different activities targeting attention, memory, processing speed, etc. Free online word games: Wordle Mohan Quordle NYT Daily Mini Crossword Phrazle Offline activities: Plan a trip in a large city (e.g., [facility], [place]) and research your routes, tickets, places to [...] of tools provided to you by your HAZARDOUS MATERIAL SPECIALIST. Play offline/live word games with family/friends Reading: start at the sentence-level and work your way up. Try to read and work through each troublesome word before moving on. Assessment: Perfecto Okeefe was seen on 2023 for a follow-up HAZARDOUS MATERIAL SPECIALIST visit. Addressed treatment goals targeting word-finding through the implementation of Semantic Feature Analysis and Phonological Components Analysis. He required minimal to maximum cueing across trials today. Provided worksheets to continue practicing these approaches in the home environment. Homework: continue with constant therapy; memory card [...] you put somethingdown Association: linking old information (senior living memory) with new information such as taking medicine with breakfast External memory strategies: Write things down in a certified financial planner or on a calendar Set timers [...] the word, like playing a game of Showell - The Simple, Fast and Elegant Tablet Sales App. Even gesturing with your hands in a [...] mind??? I'll ask you later.?? Adapted from: https://Nanomix.EyeQuant/nwsw-iwkyflg-qztlhshgyl-aphasia/ Speech Therapy Goals: All ongoing unless otherwise [...] with 90% accuracy given min fading cues. Metal Finisher Goals: - Patient will be able to demonstrate independence w/ higher level cognitive demands in home, community, and work environments, utilizing compensatory and support strategies independently as needed, for successful return to prior level of function. - Patient will independently demonstrate compensatory and support strategies to improve communicative effectiveness in his current living environment. Plan: - Recommend skilled HAZARDOUS MATERIAL SPECIALIST services, 60 minute sessions, 10 sessions. - Implementation of a HEP Debra Franco MS, [facility]-HAZARDOUS MATERIAL SPECIALIST Speech-Language Pathologist Pager # [phone] documented in this encounter Plan of Treatment Upcoming Encounters Date Type Department Care Team (Late st Contact Info) Description 10/27/2023 11:15 AM EDT Office [place] [address] Elly Alston MD [facility] DR HOSPICE AND [place] [address] 10/27/2023 1:00 PM EDT Office Visit Speech Therapy at [place] [phone] Debra Franco, HAZARDOUS MATERIAL SPECIALIST 11/03/2023 2:00 PM EDT Office Visit Speech Therapy at [place] [phone] Debra Franco, HAZARDOUS MATERIAL SPECIALIST 11/08/2023 2:30 PM EDT Appointment MRI at [address] Navjot Grider MD [facility] [place] [address] 11/09/2023 1:45 PM EDT Office Visit Hematology and Oncology at [place] [address] Isabell Jacob MD [facility] [address] 11/11/2023 10:30 AM EDT Office Visit Radiation Oncology at [place] [address] Nicki Sharpe MD [facility] [place] [address] 11/15/2023 10:00 AM EDT Office Visit Speech Therapy at [place] [phone] Debra Franco, HAZARDOUS MATERIAL SPECIALIST 11/16/2023 9:00 AM EDT Office Visit Hematology and Oncology at [place] [phone] Bisi Nam 11/22/2023 10:00 AM EDT Office [place] [address] Debra Franco, HAZARDOUS MATERIAL SPECIALIST 11/30/2023 9:00 AM EDT Office Visit Hematology [place] [address] Bsii Nam Gareth 12/14/2023 9:00 AM EDT Office Visit [place]ology [place] [address] Bisi Nam Gareth 12/28/2023 9:00 AM EDT Office Visit [place]ematology [place] [address] Bisi Nam documented as of this encounter [...] brain documented in this encounter Care Teams Guidance Services Coordinator Relationship Specialty Start Date End Date Molina Herr MD [address] [place] [address] PCP - General 01/27/10 documented as of this encounter
--- OUTSIDE RECORDS SUMMARY | 2023-10-17 15:05 | XMS_ITS | Encounter Summary ---
Author Organization [facility] [place] [address] Care Team Providers Care Wallet Assembler Name Role Phone Molina Herr MD Primary Care Provider [phone] Reason for Visit * Speech Therapy (Routine) - Authorized Specialty Diagnoses / Procedures Referred By Contac t Referred To Contact Speech Therapy Diagnoses Brain tumor RFV aphasia - please sched CURT. Debra would be preferred, but any of the neuro weatherization technician are fine. Michael Lundberg MD [facility] [place] [address] [place] [address] [facility] [place] [address] Referral ID Status Reason Start Date Expiration Date Visits Requested Visits Authorized [id number] Authorized Evaluate and Treat 08/06/2023 08/05/2024 100 100 Encounter Details Date Type Department Care Team (Latest Contact Info) Description 10/04/2023 10:00 AM EDT Office [place] [address] Debra Franco, SUPPLY CHAIN ENGINEER Cognitive communication disorder; Brain tumor Social History [...] or pharmacy? Sometimes 08/22/[address] [facility] Utilities Answer Date Recorded In the [...] any time in the past 12 m [facility], were you homeless or living in a care home (including now)? 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 right hand dominant male who was seen on 08/24/2023 for an Outpatient Kwxnwg-Chpntmbm-Iobmlpxsn Evaluation. He is known to this clinician [...] Intervention: Formal Interview: Maldonado reported completion of homework assignments. Has also been playing PolarTechr and TruMarx Data Partnersgrams and feels he is doing a little better. He stated he has been more tired, falling asleep earlier in the night. Continued difficulty recalling names and reading. Worked on SFA and REPAIR MANAGER over the weekend Reviewed sheets REPAIR MANAGER: 5/5; 4/5 SFA: 08/10; 08/10 encouraged more detail Education: Maldonado was provided education through a collaborative discussion about memory strategies for cognitive-communication disorders (specifically to recall names) and reading fluency strategies.Education was provided in order to support understanding and choice-making, which is linked to motivation and outcomes in treatment. The patient demonstrated knowledge through asking appropriate quest ions and describing how to implement these strategies into day to day activities. He required maximum cueing. Reading page-length passage aloud: had occasional hesitations and semantically and phonemically related word substitutions. He had generally adequate error detection. Semantic Feature Analysis (SFA): Semantic Feature Analysis [...] and the properties or description of it. Reviewed homework: Trial 1:Cat- 08/10; encouraged him to add more detail to description Trial 2: Mop- 08/10; encouraged him to add more detail to description Phonological Components Analysis (REPAIR MANAGER): Phonological Components Analysis is a treatment approach based off of the principles and structure of SFA. It targets word-finding skills through the direct stimulation of phonological categories. Ptwas provided with a target picture and was asked to identify the first sound, another word that starts with that sound (first sound associate), final sound, rhyming word, and number of syllables. Reviewed homework: Trial 1:Cat- 07/09 Trial 2: Mop- 06/09; had put rhyming words in the first sound associates category Education: Maldonado has been educated on results and recommendations and verbalized understanding/agreement. At the end of the session he denied outstanding questions or concerns. Home Exercise Program (HEP) Recommendations: Free adriana suggestions: MET[employer] Cross [employer] (choose complex level games such as gin rummy, spit, etc.) Lingraphica TalkPath Therapy (iPad only, or on desktop website) Paid adriana suggestions: Constant Therapy: good for different language skills Brain HQ: different activities targeting attention, memory, processing speed, etc. Free online word games: PathCentralaver Quordle NYT Daily Mini Crossword Phrazle Offline activities: Plan a trip in a large city (e.g., COUNTS INCLUDE [facility], [place]) and research your routes, tickets, places to [...] of tools provided to you by your SUPPLY CHAIN ENGINEER. Play offline/live word games with family/friends Reading: start at the sentence-level and work your way up. Try to read and work through each troublesome word before moving on. Assessment: Perfecto Okeefe was seen on 10/04/2023 for a follow-up SUPPLY CHAIN ENGINEER visit. Addressed treatment goals targeting word-finding through review of the SFA and REPAIR MANAGER homework, memorythrough direct instruction on strategies to recall names, and reading fluency through education andimplementation of a functional task. He required maximum cueing today for the new tasks which is ac expected. Homework: continue with constant therapy; memory card games; Semantic Feature Analysis and Phonological Components Analysis worksheets; reading aloud Pt will benefit from continued therapeutic interventions [...] you put somethingdown Association: linking old information (marine oil terminal superintendent memory) with new information such as taking medicine with breakfast External memory strategies: Write things down in a operations planner or on a calendar Set timers [...] the word, like playing a game of charades. Even gesturing with your hands in a [...] mind??? I'll ask you later.?? Adapted from: [email or web address].Legal River/wjjd-eaxrujq-bpsqclcnub-aphasia/ Speech Therapy Goals: All ongoing unless otherwise [...] with 90% accuracy given min fading cues. Longterm Goals: - Patient will be able to demonstrate independence w/ higher level cognitive demands in home, community, and work environments, utilizing compensatory and support strategies independently as needed, for successful return to prior level of function. - Patient will independently demonstrate compensatory and support strategies to improve communicative effectiveness in his current living environment. Plan: - Recommend skilled SUPPLY CHAIN ENGINEER services, 60 minute sessions, 10 sessions. - Implementation of a HEP Debra Franco MS, CCC-SUPPLY CHAIN ENGINEER Speech-Language Pathologist Pager # [phone] documented in this encounter Plan of Treatment Upcoming Encounters Date Type Department Care Team (Late st Contact Info) Description 10/27/2023 11:15 AM EDT Office Visit [place] [address] Elly Alston MD [facility] HOSPICE [place] [address] 10/27/2023 1:00 PM EDT Office Visit Speech Therapy at [place] [phone] Debra Franco, SUPPLY CHAIN ENGINEER 11/03/2023 2:00 PM EDT Office Visit Speech Therapy at [place] [phone] Debra Franco, SUPPLY CHAIN ENGINEER 11/08/2023 2:30 PM EDT Appointment MRI at [place] [phone] Navjot Grider MD [facility] [address] [place] [address] 11/09/2023 1:45 PM EDT Office Visit Hematology and Oncology at [place] [phone] Isabell Jacob MD [facility] [place] [address] 11/11/2023 10:30 AM EDT Office Visit Radiation Oncology at [place] [phone] Nicki Sharpe MD [facility] [place] [address] 11/15/2023 10:00 AM EDT Office [place] [address] Debra Franco, SUPPLY CHAIN ENGINEER 11/16/2023 9:00 AM EDT Office Visit Hematology [place] [phone] Bisi Nam 11/22/2023 10:00 AM EDT Office [place] [phone] Debra Franco, ROLANDO 11/30/2023 9:00 AM EDT Office Visit Hematology [place] [address] Bisi Nam 12/14/2023 9:00 AM EDT Office Visit Hematology [place] [address] Bisi Nam 12/28/2023 9:00 AM EDT Office Visit Hematology [place] [address] Bisi Nam documented as of this encounter Goals Goal Patient Goal Type Associated Problems Recent Progress Patient-Stated? Author Patient's specific desired goal: Patient Facing Action Plan Andrei Lee, [facility] Note: Goal(s): maintain quality of [...] brain documented in this encounter Care Teams Wallet Assembler Relationship Specialty Start Date End Date Molina Herr MD [phone] [place] [address] PCP - General 01/27/10 documented as of this encounter
--- OUTSIDE RECORDS SUMMARY | 2023-10-17 15:05 | XMS_ITS | Encounter Summary ---
Author Organization [facility] Address [facility] [place] [address] Care Team Providers Care Guest Services Director Name Role Phone oMlina Herr MD Primary Care Provider [phone] Encounter Details Date Type Department Care Team (Late st Contact Info) Description 09/19/2023 1:00 PM EDT Office [place] [phone] Elly Alston MD [facility] HOSPICE [place] [address] Glioblastoma of temporal lobe; Adjustment disorder, unspecified type; Palliative care encounter Social History Tobacco Use Types Packs/Day Years [...] any time in the past 12 m [facility], were you homeless or living in [...] as of this encounter Progress Notes * Elly Alston MD - 09/19/2023 1:00 PM EDT Outpatient Palliative Medicine Follow-Up Visit Patient: Perfecto Polk : 1940 Date: 09/19/2023 Primary Specialist(s): Nicki Sharpe MD; Rolly Dunlap MD, Navjot Grider MD Primary Care Provider: Molina Herr MD ID: Perfecto orourke a 82 y.o. male from 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 The Palliative Medicine team continues to follow for assistance with coping with serious illness and advance care planning. He is accompanied by his June at this visit in 3R. INTERVAL HISTORY: - since our last visit 08/18, started temodar and began RT 08/29. PRE-VISIT QUESTIONNAIRE RESPONSES: Answers submitted by the patient for this visit: Pre-Visit Health Questionnaire (Submitted on 09/18/2023) Completed pt questionnaire: Patient Top Concerns: Planning ahead issue Planning ahead concerns: What is my long-term health care prospect and my outcome - durational, benefits to family, Going well in the last week: Feeling generally satisfied with medical care, but realuze ling way from end of progral. What matters most: To know that my physical and mental strengths can improve to improve snd remain stabel. Duraion? Distress: 0 Pain: 0 Tiredness: 3 Drowsiness: 1 Nausea: 0 Lack of Appetite: 0 Shortness of Breath: 1 Depression: 0 Anxiety: 0 Wellbein Other problem: 1 Description of other problem: Moderate constipation but can be controlled, just an annoyance. BM in last 48 hrs: Yes (Submitted on 09/18/2023) Telecommunications Specialist Availability: Yes Telecommunications Specialist's Name: Ella Mohamud Relationship to patient: Spouse or partner Telecommunications Specialist's Top Concerns: Your loved one's everyday issue, Communication issue My loved one's everyday concerns: Speach, memory, understanding written stuff Communication concerns: How to answer questions from acquaintances about what is going on Going well in the last week: Maldonado feels pretty well, yay! We were able to go kayaking and do some chores. I was able to both volunteer and ride the zuleyma. We had some nice FaceTimes with friends. Nothing ???bad?? happened. Distress Level: 3 Issues causing distress: Maldonado???s cognitive abilities seem to go up and down every day! When he isnot at his best he expresses frustration. SYMPTOM ISSUES: Tolerating treatment well Working with speech therapist; still struggling with word-finding June helps manage medication Wanting to exercise more but the heat devastates me - trying to find ways to keep cool and still get activity. Working with PT. Sleep difficulties - sleep interrupted by need to urinate. Drinks a lot throughout the day and knows he should stop pushing fluids earlier in the day. Able to fall back asleep quickly. Functional assessment: PPS 80 - able to do household tasks, unable to drive currently, which is a loss SOCIAL CONCERNS: (09/19/23) - he and June got since we last saw each other! - neighbors/acquaintances have been asking 'if everthing's OK and they haven't known how to answer. We brainstormed some language, and discussed ways of holding boundaries. - June is grieving the changes she sees in Maldonado - mostly that at times he can get very short/irritable when frustrated. She has outlets - talking with her sisters and dear friends - and feels she can handle it for now, but knows we offer resources here as well. She'll let us know. (08/19/23) - he describes initial distress at his diagnosis, but now feels more accepting of it, remembering that many family members and friends have gone through dying in the last 10 years - and this helps him to remember that we all have to go thru it - it's a part of life. - he is immensely grateful for Dr. Young's care as his PCP UNDERSTANDING OF ILLNESS, INFORMATION PREFERENCES and GOALS OF CARE: see ACP navigator Serious Illness Conversation on file?: Y (08/19/23) ADVANCE CARE PLANNING: Y (July 2023) agent is Joan Polk (daughter); alternate is June Mohamud. Detailed expression of values and preferences, which are generally conservative. SOCIAL CONTEXT: Social History Social History Narrative Maldonado grew up in [place], currently lives in [facility] with his significant other June of 13 years.He has a daughter Joan who lives in [place]. His son in 2021; Maldonado is close to his grandson wholives in [place]. 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 Enjoys photography - wants to share his files with his daughter and grandson. Camp up in [facility] on a herring, enjoys sailing with Anali. Loves his Shonda, not able to drive it right now but wants to again! June worked as an physical trainer, math and science instructor, and movement therapist. 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 (Patient not taking: Reported on 09/16/2023) 30 tablet 0 temozolomide (Temodar) 5 mg capsule Take 1 capsule (5 mg) with 1 other temozolomide prescription for 145 mg total by mouth daily. Take on an empty stomach. Call clinic before/prior to starting medication/script. 21 capsule 0 temozolomide (Temodar) 140 mg capsule Take 1 capsule (140 mg) with 1 other temozolomide prescription for 145 mg total by mouth daily. Take on an empty stomach. Call clinic before/prior to starting medication/script. 21 capsule 0 pantoprazole EC (Protonix) [address] tablet Take 1 tablet by mouth daily. (Patient not taking: Reported on 09/16/2023) 90 tablet 3 dexAMETHasone (Decadron) 4 mg tablet Take 1 tablet by mouth daily (after breakfast). 90 tablet 0 fluconazole (Diflucan) 150 mg tablet Take 150 mg by mouth once. levETIRAcetam (Keppra) 500 mg tablet Take 1 tablet by mouth 2 times daily. 60 tablet 3 senna-docusate (Pericolace) 8.6-50 mg Tablet Take 2 tablets by mouth 2 times daily. (Patient takingdifferently: Take 1 tablet by mouth as needed.) 120 tablet 0 aspirin EC 81 mg EC (DR) tablet Take 1 tablet by mouth 2 times daily. (Patient not taking: Reportedon 09/09/2023) 60 tablet 0 acetaminophen (Tylenol) 650 mg/20.3 mL Solution Take 31.2 mLs by mouth every 6 hours as needed (mild pain (1-3)). (Patient not taking: Reported on 09/16/2023) pantoprazole EC (Protonix) [address] tablet Take 1 tablet by mouth daily. 30 tablet 0 acetaminophen (Tylenol) 500 mg tablet Take 2 tablets by mouth 3 times daily. 180 tablet 0 ubiquinone (Ubiquinone) 100 mg capsule Take 200 mg by mouth once. omeprazole (PRILOSEC) 20 mg Capsule, Delayed Release(E.C.) Take 20 mg by mouth daily. 4 mwkrlewfvdbqg-UL-rbqv (SOURCE CF) 200-10 mcg-mg Chew Take 1 tablet by mouth daily. levothyroxine (SYNTHROID) 25 mcg tablet 25MCG = 1 Tablet(s), PO, Once daily atorvastatin (LIPITOR) 10 mg tablet Take 20 mg by mouth. No current facility-administered medications on file prior to visit. ALLERGIES: Allergies Allergen Reactions Penicillins Hives PAT Penicillin Allergy Risk Assessment 06/13/2023: Low risk penicillin allergy. OK to receive full dose of cefazolin, cefuroxime, or any 3rd or 4th+ generation cephalosporin. PHYSICAL EXAMINATION No vitals On exam, he is robust-appearing, walks without assistance. Affect is warm, engaging. Participates actively in the visit with some word-finding difficulties, better than at last visit LABS: No results found for this or any previous visit (from the past 72 hour(s)). IMAGING: MRI Brain 07/30/23 FINDINGS: Diffusion tensor imaging shows diminished normal [...] has a normal configuration on the right. PALLIATIVE ASSESSMENT: Perfecto Polk is a 82 y.o. M with newly diagnosed high grade L temporal glioma s/p resection, receiving chemoradiation. He and his significant other have a good understanding of his condition, treatment options, and likely side effects. He has an advance directive and we have discussed his goals and values - see separate ACP note. We continue to support his June's wellbeing and have previously provided information about resources for her support, such as [employer] and our clinic's elementary school social worker. At this time, she does not feel the need for these, but will let me know. Also shared that if Maldonado's irritability becomes more prevalent, anxiety/depression are common, treatable complications of GBM and XRT - so we will keep an eye on this. Counseling provided around what to share with acquaintances and setting gentle boundaries. Follow-Up: with me 10/26 Telehealth: not now Palliative continuity provider(s): Alecia I reviewed all pertinent portions of the medical record including notes, and results of studies. 40 minutes of this 40 minute visit spent counseling patient and/or family regarding symptom management and coping with serious illness. ELLY ALSTON MD documented in this encounter Plan of Treatment Upcoming Encounters Date Type Department Care Team (Late st Contact Info) Description 10/27/2023 11:15 AM EDT Office [place] [address] Elly Alston MD [facility] DR HOSPICE [place] [address] 10/27/2023 1:00 PM EDT Office [place] [address] Debra Franco, GRAVURE PRESS SET UP OPERATOR 11/03/2023 2:00 PM EDT Office [place] [address] Debra Franco GRAVURE PRESS SET UP OPERATOR 11/08/2023 2:30 PM [place] [address] Navjot Grider MD [facility] DR [place] [address] 11/09/2023 1:45 PM EDT Office Visit Hematology and Oncology at [place] [address] Isabell Jacob MD [facility] [place] [address] 11/11/2023 10:30 AM EDT Office Visit Radiation Oncology at [place] [address] Nicki Sharpe MD [facility] [place] [address] 11/15/2023 10:00 AM EDT Office Visit Speech Therapy at [place] [phone] Debra Franco, GRAVURE PRESS SET UP OPERATOR 11/16/2023 9:00 AM EDT Office Visit Hematology and Oncology at [place] [phone] Bisi Nam 11/22/2023 10:00 AM EDT Office Visit Speech Therapy at [place] [phone] Debra Franco, GRAVURE PRESS SET UP OPERATOR 11/30/2023 9:00 AM EDT Office Visit Hematology [place] [address] Bisi Nam 12/14/2023 9:00 AM EDT Office Visit Hematology [place] [address] Bisi Nam 12/28/2023 9:00 AM EDT Office Visit [place] [address] Bisi Nam documented as of this encounter Goals Goal Patient Goal Type Associated Problems Recent Progress Patient-Stated? Author Patient's specific desired goal: Patient Facing Action Plan No Andrei Egan, [facility] Note: Goal(s): maintain quality of life as [...] Malignant neoplasm of temporal lobe of brain Adjustment disorder, unspecified type Palliative care encounter Encounter for palliative care documented in this encounter Care Teams Guest Services Director Relationship Specialty Start Date End Date Molina Herr MD [facility] [phone] [place] [address] PCP - General 01/27/10 documented as of this encounter
--- OUTSIDE RECORDS SUMMARY | 2023-10-17 15:05 | XMS_ITS | Encounter Summary ---
Author Organization [facility] [place] [address] Care Team Providers Care Process Development Technician Name Role Phone Molina Herr MD Primary Care Provider [phone] Reason for Visit * Reason Comments On Treatment Visit Encounter Details Date Type Department Care Team (Late st Contact Info) Description 09/16/2023 9:30 AM EDT Office [place] [address] Nicki Sharpe MD [facility] [place] [address] Brain tumor (Primary Dx) Social History Tobacco [...] doctor or pharmacy? Sometimes 08/22/2023 [facility] Utilities Answer Date Recorded In the [...] Sign Reading Time Taken Comments Blood Pressure 104/70 09/16/2023 9:53 AM EDT Pulse 70 09/16/2023 9:53 AM EDT Temperature 35.8 ??C (96.4 ??F) 09/16/2023 9 :53 AM EDT Respiratory Rate 16 09/16/2023 9:53 AM EDT Oxygen Saturation 98% 09/16/2023 9:5 3 AM EDT Inhaled Oxygen Concentration - - Weight 79.8 kg (176 lb) 09/16/2023 9:53 AM EDT fully clothed, shoes on Height - - Body Mass Index 26.77 09/05/2023 1:05 PM EDT documented in this encounter Patient Instructions * Patient Instructions* Nicki Sharpe MD - 09/16/2023 9:30 AM EDT Please go down to taking 3mg of dexamethasone daily. documented in this encounter Progress Notes * Nicki Sharpe MD - 09/16/2023 9:30 AM EDT Images from the original note were not included. [facility] Medicine Radiation Oncology Radiation Oncology On-Treatment Note [...] Once daily n Treatment progress: Today's Date: 09/16/23 Radiation Therapy Dose: 24Gy, 12 fractions Clinical Trial: no n Clinical course: [...] balance difficulties, sensation changes, or seizure activity. n Exam: Vitals in flowsheet General: Well [...] temozolomide. n Follow-up/plan: Continue treatment as planned. Decrease steroids to 3mg of dexamethasone daily in the morning with breakfast and PPI Instructed on signs and symptoms to watch out for and when to call or go to the ED Encouraged to contact us with any additional questions or concerns Nicki Sharpe MD, PhD [facility] [place] [facility] [place] Radiation Oncology National Cancer [place] (NCI) Comprehensive Cancer Center [employer] Commission on Cancer (ACS Ald[place]) Accredited Cancer Program [employer] (ACR) Accredited Radiation Oncology Program documented in this encounter Plan of Treatment Upcoming Encounters Date Type Department Care Team (Late st Contact Info) Description 10/27/2023 11:15 AM EDT Office [place] [address] Elly Alston MD [facility] HOSPICE AND [place] [address] 10/27/2023 1:00 PM EDT Office [place] [address] Debra Franco, SENIOR MEDICAL WRITER 11/03/2023 2:00 PM EDT Office Visit Speech Therapy at [place] [phone] Debra Franco, SENIOR MEDICAL WRITER 11/08/2023 2:30 PM EDT Appointment MRI at [place] [address] Navjot Grider MD [facility] [address] [place] [address] 11/09/2023 1:45 PM EDT Office Visit Hematology and Oncology at [address] Isabell Jacob MD [facility] [place] [address] 11/11/2023 10:30 AM EDT Office Visit Radiation Oncology at [address] Nicki Sharpe MD [facility] [place] [address] 11/15/2023 10:00 AM EDT Office [place] [address] Debra Franco, SENIOR MEDICAL WRITER 11/16/2023 9:00 AM EDT Office Visit [place] [address] Bisi Nam 11/22/2023 10:00 AM EDT Office [place] [address] Debra Franco, SENIOR MEDICAL WRITER 11/30/2023 9:00 AM EDT Office Visit [place] [address] Bisi Nam 12/14/2023 9:00 AM EDT Office Visit [place] [address] Bisi Nam 12/28/2023 9:00 AM EDT Office Visit [place] [address] Bisi Nam documented as of this encounter Goals Goal Patient Goal Type Associated Problems Recent Progress Patient-Stated? Author Patient's specific desired goal: Patient Facing Action Plan Andrei Lee, [facility] Note: Goal(s): maintain quality of [...] brain documented in this encounter Care Teams Process Development Technician Relationship Specialty Start Date End Date Molina Herr MD [facility] [address] [place] [address] PCP - General 01/27/10 documented as of this encounter
--- OUTSIDE RECORDS SUMMARY | 2023-10-17 15:05 | XMS_ITS | Encounter Summary ---
Author Organization [facility] Address [facility] [place] [address] Care Team Providers Care Tube Molder Fiberglass Name Role Phone Molina Herr MD Primary Care Provider [phone] Encounter Details Date Type Department Care Team (Late st Contact Info) Description 09/23/2023 9:30 AM EDT Office [place] [phone] Nicki Sharpe MD [facility] [place] [address] Brain tumor; Glioblastoma of temporal lobe Social History Tobacco [...] from your doctor or pharmacy? Sometimes 08/22/2023 [facility] Utilities Answer Date Recorded [...] Sign Reading Time Taken Comments Blood Pressure 127/75 09/23/2023 10:33 AM EDT Pulse 65 09/23/2023 10:33 AM EDT Temperature 35.6 ??C (96.1 ??F) 09/23/2023 10:33 AM E DT Respiratory Rate - - Oxygen Saturation 98% 09/23/2023 10:33 AM EDT Inhaled Oxygen Concentration - - Weight - - Height - - Body Mass Index - - documented in this encounter Progress Notes * Nicki Sharpe MD - 09/23/2023 9:30 AM EDT Images from the original note were not included. [facility] Medicine Radiation Oncology Radiation Oncology On-Treatment [...] Once daily n Treatment progress: Today's Date: 09/23/23 Radiation Therapy Dose: 34Gy, 17 fractions Clinical Trial: no n Clinical course: [...] He has not felt any real fatigue. n Exam: Vitals in flowsheet General: Well [...] Continue treatment as planned. Decrease steroids to 2mg of dexamethasone daily in the morning with breakfast and PPI Instructed on signs and symptoms to watch out for and when to call or go to the ED Encouraged to contact us with any additional questions or concerns Nicki Sharpe MD, PhD [facility] Radiation Oncology National Cancer [place] (NCI) Comprehensive Cancer Center [employer] Commission on Cancer (ACS Aldo) Accredited Cancer Program [employer] (ACR) Accredited Radiation Oncology Program documented in this encounter Plan of Treatment Upcoming Encounters Date Type Department Care Team (Late st Contact Info) Description 10/27/2023 11:15 AM EDT Office Visit Palliative Medicine at [place] [phone] Elly Alston MD [facility] DR HOSPICE [place] [address] 10/27/2023 1:00 PM EDT Office [place] [address] Debra Franco, SANITATION MANAGER 11/03/2023 2:00 PM EDT Office [place] [address] Debra Franco, SANITATION MANAGER 11/08/2023 2:30 PM EDT Appointment MRI at [place] [phone] Navjot Grider MD [facility] [address] [place] [address] 11/09/2023 1:45 PM EDT Office Visit Hematology and Oncology at [place] [address] Isabell Jacob MD [facility] [place] [address] 11/11/2023 10:30 AM EDT Office Visit Radiation Oncology at [place] [address] Nicki Sharpe MD [facility] [place] [address] 11/15/2023 10:00 AM EDT Office Visit Speech Therapy at [place] [address] Debra Franco, SANITATION MANAGER 11/16/2023 9:00 AM EDT Office Visit Hematology and Oncology at [place] [phone] Bisi Nam 11/22/2023 10:00 AM EDT Office Visit Speech Therapy at [place] [phone] Debra Franco, SANITATION MANAGER 11/30/2023 9:00 AM EDT Office Visit Hematology [place] [address] Bisi Nam 12/14/2023 9:00 AM EDT Office Visit Hematology and Oncology at [place] [phone] Bisi Nam 12/28/2023 9:00 AM EDT Office Visit [place]ematology [place] [address] Bisi Nam documented as of this encounter Goals Goal Patient Goal Type Associated Problems Recent Progress Patient-Stated? 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
--- OUTSIDE RECORDS SUMMARY | 2023-10-17 15:05 | XMS_ITS | Encounter Summary ---
Author Organization [facility] [place] [address] Care Team Providers Care Livestock Commission Agent Name Role Phone Molina Herr MD Primary Care Provider [phone] Encounter Details Date Type Department Care Team (Latest Contact Info) Description 09/20/2023 9:33 AM EDT - 09/20/2023 11:59 PM EDT Hospital Encounter [place] [address] Glioblastoma of temporal lobe; High [...] from your doctor or pharmacy? Sometimes 08/22/2023 [facility] Utilities Answer Date Recorded In the [...] 20 mg by mouth daily. 4 03/08/2014 [id number] (SOURCE CF) 200-10 mcg-mg Chew Take 1 [...] AM EDT Office Visit Palliative Medicine at [place] [address] Elly Alston MD [facility] DR HOSPICE [place] [address] 10/27/2023 1:00 PM EDT Office Visit Speech Therapy at [place] [address] Debra Franco, SENIOR QUALITY CONTROL TECHNICIAN 11/03/2023 2:00 PM EDT Office Visit Speech Therapy at [place] [address] Debra Franco, SENIOR QUALITY CONTROL TECHNICIAN 11/08/2023 2:30 PM EDT Appointment MRI at [place] [address] Navjot Grider MD [facility] [address] [place] [address] 11/09/2023 1:45 PM EDT Office Visit Hematology and Oncology at [place] [address] Isabell Jacob MD [facility] [place] [address] 11/11/2023 10:30 AM EDT Office Visit Radiation Oncology at [place] [address] Nicki Sharpe MD [facility] [place] [address] 11/15/2023 10:00 AM EDT Office Visit Speech Therapy at [place] [phone] Debra Franco, SENIOR QUALITY CONTROL TECHNICIAN 11/16/2023 9:00 AM EDT Office Visit Hematology and Oncology at [facility] [place] [address] Bisi Nam 11/22/2023 10:00 AM EDT Office Visit Speech Therapy at [facility] [place] [address] Debra Franco SLP 11/30/2023 9:00 AM EDT Office Visit Hematology and Oncology at [facility] [place] [address] Bisi Nam 12/14/2023 9:00 AM EDT Office Visit Hematology and Oncology at [facility] [place] [address] Bisi Nam 12/28/2023 9:00 AM EDT Office Visit Hematology and Oncology at [facility] [place] [address] Bisi Nam documented as of this encounter Goals Goal Patient Goal Type Associated Problems Recent Progress Patient-Stated? Author Patient's specific desired goal: Patient Facing Action Plan Andrei Lee, [facility] Note: Goal(s): maintain quality [...] Priority Date/Time Associated Diagnosis Comments HEMOGRAM Routine 09/20/2023 9:41 AM EDT Glioblastoma of temporal lobe 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 use DIFFERENTIAL, AUTOMATED Routine 09/20/2023 9:41 AM EDT Glioblastoma of temporal lobe 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 use CBC (WITH DIFF) Routine 09/20/2023 9:41 AM EDT Glioblastoma of temporal lobe 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 use COMPREHENSIVE METABOLIC PANEL Routine 09/20/2023 9:41 AM EDT Glioblastoma of temporal lobe documented in this encounter Results * (ABNORMAL) Differential, Automated (09/20/2023 9:41 AM EDT) Neutrophil % 74.1 % [facility] Neutrophil Absolute 8.73(H) 1.70 - 6.10 x10(3)/[facility] Lymph % 10.4 % [facility] Lymphocytes Abs 1.2 0.9 - 3.2 x10(3)/[facility] Monocyte % 8.6 % [facility] Monocyte Abs 1.0(H) 0.3 - 0.9 x10(3)/[facility] Eos % 6.2 % [facility] Eosinophils Abs 0.7(H) 0.0 - 0.4 x10(3)/[facility] Basophil % 0.3 % [facility] Baso Absolute 0.0 0.0 - 0.1 x10(3)/[facility] Immature Gran % 0.40 % [facility] Comment: Immature granulocytes(IG's)percentage and absolute count will include metamyelocytes, myelocytes, and promyelocytes. Blood smears from CBCs yielding IG's will be scanned manually for concordance. If this scan disagrees with the automated IG or if promyelocytes are noted, a manual differential will be performed. Immature Gran Absolute 0.05(H) 0.00 - 0.04 x10(3)/[facility] Blood 09/20/2023 9:41 AM EDT 09/20/2023 9:53 AM EDT Narrative Resulting Agency Comment Spec In Lab Belinda ARRINGTON HEMATOLOGY ORDERABLE S [facility] [place] [address] * (ABNORMAL) Hemogram (09/20/2023 9:41 AM EDT) White Blood Cell 11.8(H) 4.0 - 9.5 x10(3)/mc L [facility] Red Blood Cell 4.18(L) 4.58 - 5.54 x10(6)/mc L [facility] Hemoglobin 11.6(L) 13.7 - 16.5 g/dL [facility] Hematocrit 36.1(L) 40.5 - 48.5 % [facility] Mean Cell Volume 86.4 82.9 - 93.1 fL [facility] Mean Cell Hemoglobin 27.8 27.5 - 32.1 pg [facility] Mean Cell Hemoglobin Concentration 32.1 32.0 - 35.7 g/dL [facility] Platelet 288 145 - 357 x10(3)/[facility] RDW Standard Deviation 50.7(H) 36.0 - 45.0 [facility] RDW coefficient of variation 16.3(H) 11.4 - 13.8 % [facility] Mean Platelet Volume 8.7 7.6 - 12.9 [facility] NRBC% auto 0.0 % [facility] NRBC Absolute 0.000 0.000 - 0.000 x10(3)/[facility] Blood 09/20/2023 9:41 AM EDT 09/20/2023 9:53 AM EDT Narrative Resulting Agency Comment Spec In Lab Belinda ARRINGTON HEMATOLOGY ORDERABLE S [facility] [place] [address] * (ABNORMAL) Comprehensive metabolic panel (non-fasting) (09/20/2023 9:41 AM EDT) Glucose 91 65 - 199 mg/dL [facility] Comment:Diabetes: >=200 mg/d L plus symptoms Blood Urea Nitrogen 25(H) 10 - 20 mg/dL [facility] Creatinine 1.32 0.80 - 1.50 mg/dL [facility] Sodium 139 135 - 145 mmol/L [facility] Potassium 4.8 3.5 - 5.0 mmol/L [facility] Comment: Please note: ??Patients with WBC >100,000 may have falsely elevated Potassium levels. ??For accurate Potassium quantification in these patients send serum separator tube (gold top) for subsequent determinations. ??Contact the Clinical Chemistry Laboratory if there are any questions. Chloride 104 98 - 107 mmol/L [facility] Carbon Dioxide 24 22 - 31 mmol/L [facility] Anion Gap 11 5 - 15 mmol/L [facility] Calcium 9.4 8.5 - 10.5 mg/dL [facility] Protein, Total 6.6 6.1 - 8.0 g/dL [facility] Albumin 3.9 3.2 - 5.2 g/dL [facility] Aspartate Aminotransferase 15 0 - 39 unit/L [facility] Alanine Aminotransferase 15 0 - 55 unit/L [facility] Alkaline Phosphatase 58 40 - 130 unit/L [facility] Bilirubin, Total 0.3 0.2 - 1.3 mg/dL [facility] Est Glomerular Filtration Rate 55(L) >=60 mL/min/1. 73 m?? [facility] Comment: This patient's estimated GFR was [...] and symptoms in addition to eGFR. 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
--- OUTSIDE RECORDS SUMMARY | 2023-10-17 15:05 | XMS_ITS | Encounter Summary ---
Author Organization [facility] [place] [address] Care Team Providers Care Location And Measurement Technician Name Role Phone Molina Herr MD Primary Care Provider Encounter Details Date Type Department Care Team (Latest Contact Info) Description 09/26/2023 Travel Social History Tobacco Use Types Packs/Day [...] Recorded In the past 12 months has [facility] [employer], gas, oil, or water [employer] threatened to shut off services in your [...] any time in the past 12 m [facility], were you homeless or living in a skilled nursing (including now)? No 08/22/2023 IPV Inpatient Questions [...] AM EDT Office [place] [address] Elly Alston MD [facility] DR HOSPICE AND P[place]AT[place] [address] 10/27/2023 1:00 PM EDT Office [place] [address] Debra Franco, DINING SERVICE WORKER 11/03/2023 2:00 PM EDT Office [place] [address] Debra Franco, DINING SERVICE WORKER 11/08/2023 2:30 PM EDT Appointment MRI at [place] [address] Navjot Grider MD [facility] [address] [place] [address] 11/09/2023 1:45 PM EDT Office Visit Hematology and Oncology at [address] Isabell Jacob MD [facility] [place] [address] 11/11/2023 10:30 AM EDT Office Visit Radiation Oncology at [address] Nicki Sharpe MD [facility] [place] [address] 11/15/2023 10:00 AM EDT Office [place] [address] Debra Franco, ROLANDO 11/16/2023 9:00 AM EDT Office Visit Hematology [place] [address] Bisi Nam 11/22/2023 10:00 AM EDT Office [place] [address] Debra Franco, ROLANDO 11/30/2023 9:00 AM EDT Office Visit Hematology [place] [address] Bisi Nam 12/14/2023 9:00 AM EDT Office Visit Hematology [place] [address] Bisi Nam 12/28/2023 9:00 AM EDT Office Visit [place]ematology [place] [address] Bisi Nam documented as of this encounter Goals Goal Patient Goal Type Associated Problems Recent Progress Patient-Stated? Author Patient's specific desired goal: Patient Facing Action Plan Andrei Lee, [facility] Note: [...] on filedocumented in this encounter Care Teams Location And Measurement Technician Relationship Specialty Start Date End Date Molina Herr MD [facility] [address] [place] [address] PCP - General 01/27/10 documented as of this encounter
--- OUTSIDE RECORDS SUMMARY | 2023-10-17 15:06 | XMS_ITS | Encounter Summary ---
Author Organization [facility] [place] [address] Care Team Providers Care Restaurant Recruiter Name Role Phone Molina Herr MD Primary Care Provider [phone] Encounter Details Date Type Department Care Team (Latest Contact Info) Description 09/06/2023 Travel Social History Tobacco Use Types Packs/Day [...] Recorded In the past 12 months has [facility] [employer], gas, oil, or water [employer] threatened to shut off services in your [...] any time in the past 12 m [facility], were you homeless or living in a [...] AM EDT Office [place] [address] Elly Alston MD [facility] DR HOSPICE AND [place] [address] 10/27/2023 1:00 PM EDT Office [place] [address] Debra Franco, STUDENT SERVICES VICE PRESIDENT 11/03/2023 2:00 PM EDT Office [place] [address] Debra Franco, STUDENT SERVICES VICE PRESIDENT 11/08/2023 2:30 PM EDT Appointment MRI at [place] [address] Navjot Grider MD [facility] [place] [address] 11/09/2023 1:45 PM EDT Office Visit Hematology and Oncology at [address] Isabell Jacob MD [facility] [place] [address] 11/11/2023 10:30 AM EDT Office Visit Radiation Oncology at [address] Nicki Sharpe MD [facility] [place] [address] 11/15/2023 10:00 AM EDT Office [place] [address] Debra Franco, ROLANDO 11/16/2023 9:00 AM EDT Office Visit Hematology [place] [address] Bisi Nam 11/22/2023 10:00 AM EDT Office [place] [address] Debra Franco, ROLANDO 11/30/2023 9:00 AM EDT Office Visit Hematology [place] [address] Bisi Nam 12/14/2023 9:00 AM EDT Office Visit Hematology [place] [address] Bisi Nam 12/28/2023 9:00 AM EDT Office Visit [place]ematology [place] [address] Bisi Nam documented as of this encounter [...] on filedocumented in this encounter Care Teams Restaurant Recruiter Relationship Specialty Start Date End Date Molina Herr MD [facility] [address] [place] [address] PCP - General 01/27/10 documented as of this encounter
--- OUTSIDE RECORDS SUMMARY | 2023-10-17 15:06 | XMS_ITS | Encounter Summary ---
Author Organization [place] [address] Care Team Providers Care Marketing Finance Manager Name Role Phone Molina Herr MD Primary Care Provider [phone] Reason for Visit * Speech Therapy (Routine) - Authorized Specialty Diagnoses / Procedures Referred By Contac t Referred To Contact Speech Therapy Diagnoses Brain tumor RFV aphasia - please sched CURT. Debra would be preferred, but any of the neuro distribution engineer are fine. Michael Lundberg MD [facility] [place] [place] [address] [facility] Ambulatory [place] [address] Referral ID Status Reason Start Date Expiration Date Visits Requested Visits Authorized [id number] Authorized Evaluate and Treat 08/06/2023 08/05/2024 100 100 Encounter Details Date Type Department Care Team (Latest Contact Info) Description 09/06/2023 1:00 PM EDT Office [place] [address] Debra Franco, GARMENT FITTER Cognitive communication disorder; Brain tumor Social History [...] from your doctor or pharmacy? Sometimes 08/22/2023 [facility] Utilities Answer Date Recorded [...] any time in the past 12 m [facility], were you homeless or living in a usp (including now)? 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 right hand dominant male who was seen on 08/24/2023 for an Outpatient Zggnrp-Opxacjie-Wgcesrgdu Evaluation. He is known to this clinician [...] Care. Interval History: Per chart review, Maldonado has been seen by Hematology and Oncology, Neurosugery, and Radiation Oncology since his initial GARMENT FITTER evaluation. He is currently undergoing 6 weeks of chemoradiation treatment with Temozolamide. Per formal interview, Maldonado did not get radiation therapy today because the machine was down. Still endorsing visual hallucinations. Noticing some improvements in reading, though has some persistent letter substitutions, most noticeable with /f/ and /v/. States he sometimes thinks of the wrong word. Subjective: Maldoando was encountered in the outpatient rehab office with life partner, Ella, present.They were pleasant and engaged throughout this session. Objective: Pt seen for speech therapy targeting aphasia and cognitive- communication and demonstrated the following: Pain: Did not appear to be in acute distress. Bedside Western Aphasia Battery-Revised (WAB-Bedside) The WAB-R Bedside Aphasia Score and the Bedside Language Score can be used when time constraints orpatient's status prevent administration of the full WAB-R Battery. Interpretation of sections and tasks are consistent with full test. Evaluates: Spontaneous Speech for Content and Fluency; Auditory Verbal Comprehension; Repetition; Object Naming; as well as Reading, Writing, and Apraxia. Spontaneous Speech Content: 12/14 Spontaneous Speech Fluency: 11/14 Auditory Verbal Comprehension: Yes/No Questions 11/14 Sequential Commands: 12/14 Repetition: 12/14 Object Namin/10 Bedside Aphasia Score: 95/100 The patient may be considered normal or nonaphasic if the AQ is 93.8 or above (Gary, 2006). Western Aphasia Battery-Revised: Part 2 (Supplemental) The WAB-R Part 2 evaluates: Reading and Writing. Selected subtests from this supplemental battery were administered. Reading: Comprehension of Sentences: 40/40 Reading Commands: Written Word - Object Choice Matchin/6 Written Word - Picture Choice Matchin/6 Picture - Written Word Choice Matchin/6 Spoken Word - Written Word Choice Matchin/4 Spelled Word Recognition: 08/10 Spellin/6 Writing: Writing Upon Request: 08/10 Writing Output: 28.5/34 Writing to Dictation: 12/14 Writing Dictated Words: 12/14 Supplemental Reading and Writing: Writing Irregular Words to Dictation: 10/14 Education: Provided Maldonado with a handout detailing results of the evaluation and overall GARMENT FITTER recommendations/compensatory strategies. Specifically focused on implementation of a home exercise programtoday and education on internal and external memory strategies. Re-educated on role of the GARMENT FITTER and overview of the rehab program. Discussed scheduling moving forward, adding 2 additional sessions to reflect rehab potential. At the end of the session he denied outstanding questions or concerns. Home Exercise Program (HEP) Recommendations: Free adriana suggestions: Shortlist Cross Biocycle.Mek[employer] (choose complex level games such as gin rummy, spit, etc.) Lingraphica TalkPath Therapy (iPad only, or on desktop website) Paid adriana suggestions: Constant Therapy: good for different language skills Brain HQ: different activities targeting attention, memory, processing speed, etc. Free online word games: Wordle Mohan Quordle NYT Daily Mini Crossword Phrazle Offline activities: Plan a trip in a large city (e.g., [facility], [place]) and research your routes, tickets, places to [...] of tools provided to you by your GARMENT FITTER. Play offline/live word games with family/friends Reading: start at the sentence-level and work your way up. Try to read and work through each troublesome word before moving on. Assessment: Perfecto Okeefe was seen on 09/06/2023 for a follow-up GARMENT FITTER visit. Continued assessment using the WAB-Bedside and WAB-R part 2 were completed today. Language is considered normal or nonaphasic given his AQ is greater than 93.8 (Gary, 2006). He demonstrated mild difficulties withboth reading and writing today, concerning for some degree of alexia and agraphia which will be addressed in upcoming treatment sessions. In-depth education completed today with Maldonado benefiting from use of a patient educational handout to be used as an external memory aid. He required maximum verbal and visual cueing during this educational task, as to be expected for the first session. Home exercise program was re-established todayand will be modified further in the upcoming treatment sessions, as indicated. Pt will benefit from continued therapeutic interventions [...] you put somethingdown Association: linking old information (skilled nursing memory) with new information such as taking medicine with breakfast External memory strategies: Write things down in a site planner or on a calendar Set timers [...] the word, like playing a game of [employer]. Even gesturing with your hands in a [...] mind??? I'll ask you later.?? Adapted from: [email or web address]-[email or web address]/ Speech Therapy Goals: All ongoing unless otherwise [...] with 90% accuracy given min fading cues. Alf Goals: - Patient will be able to demonstrate independence w/ higher level cognitive demands in home, community, and work environments, utilizing compensatory and support strategies independently as needed, for successful return to prior level of function. - Patient will independently demonstrate compensatory and support strategies to improve communicative effectiveness in his current living environment. Plan: - Recommend skilled GARMENT FITTER services, 60 minute sessions, 10 sessions. - Implementation of a HEP Debra Franco, MS, CCC-GARMENT FITTER Speech-Language Pathologist Pager # [phone] documented in this encounter Plan of Treatment Upcoming Encounters Date Type Department Care Team (Late st Contact Info) Description 10/27/2023 11:15 AM EDT Office Visit Palliative Medicine at [place] [address] Elly Alston MD [facility] DR HOSPICE AND P[place]IATIVE [place] [address] 10/27/2023 1:00 PM EDT Office Visit Speech Therapy at [address] Debra Franco, GARMENT FITTER 11/03/2023 2:00 PM EDT Office Visit Speech Therapy at [address] Debra Franco, GARMENT FITTER 11/08/2023 2:30 PM EDT Appointment MRI at [place] [address] Navjot Grider MD [facility] DR HEMATOLOGY [place] [address] 11/09/2023 1:45 PM EDT Office Visit Hematology and Oncology at [place] [address] Isabell Jacob MD [facility] [place] [address] 11/11/2023 10:30 AM EDT Office Visit Radiation Oncology at [address] Nikci Sharpe MD [facility] [place] [address] 11/15/2023 10:00 AM EDT Office Visit Speech Therapy at [place] [phone] Debra Franco, GARMENT FITTER 11/16/2023 9:00 AM EDT Office Visit Hematology and Oncology at [address] Bisi Nam 11/22/2023 10:00 AM EDT [place] [address] Debra Franco, GARMENT FITTER 11/30/2023 9:00 AM EDT Office Visit Hematology [place] [address] Bisi Nam 12/14/2023 9:00 AM EDT Office Visit [place]ematology [place] [address] Bisi Nam 12/28/2023 9:00 AM EDT Office Visit [place]ology [place] [address] Bisi Nam documented as of this encounter Goals Goal Patient Goal Type Associated Problems Recent Progress Patient-Stated? Author Patient's specific desired goal: Patient Facing Action Plan Andrei Lee, [facility] Note: Goal(s): maintain quality of life [...] brain documented in this encounter Care Teams Marketing Finance Manager Relationship Specialty Start Date End Date Molina Herr MD [facility] [address] [place] [address] PCP - General 01/27/10 documented as of this encounter
--- OUTSIDE RECORDS SUMMARY | 2023-10-17 15:06 | XMS_ITS | Encounter Summary ---
Author Organization Formerly [facility] Address [facility] [place] [address] Care Team Providers Care Notary Public Name Role Phone Molina Herr MD Primary Care Provider [phone] Encounter Details Date Type Department Care Team (Late st Contact Info) Description 08/31/2023 1:40 PM EDT Office [place] [address] [facility] [address] [place] [address] Brain tumor Social History Tobacco Use Types [...] your doctor or pharmacy? Sometimes 08/22/2023 [facility] Utilities Answer Date Recorded In the [...] Sign Reading Time Taken Comments Blood Pressure 95/66 08/31/2023 1:43 PM EDT Pulse 86 08/31/2023 1:43 PM EDT Temperature 36.7 ??C (98.1 ??F) 08/31/2023 1:43 PM ED T Respiratory Rate 17 08/31/2023 1:43 PM EDT Oxygen Saturation 97% 08/31/2023 1:43 PM EDT Inhaled Oxygen Concentration - - Weight 79.8 kg (176 lb) 08/31/2023 1:43 PM EDT Height 172.7 cm (5' 7.99) 08/31/2023 1:43 PM ED T Body Mass Index 26.77 08/31/2023 1:43 PM EDT documented in this encounter Progress Notes * Tonya Plasencia PA - 08/31/2023 1:40 PM EDT SECTION OF NEUROSURGERY CHIEF COMPLAINT (in bold): 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 Dunlap who presents for his post-op check. Maldonado notes return of visual hallucinations x ~1week, which are of a different quality then he was experiencing when on steroids. These are more vague ann shadow then strings of text. After sleeping, they will take a while to reoccur. Endorses continued difficulty with finding people's names, and reading, especially later in the day. Reports headaches that will wake him from sleep and seem to have worsened recently, and do not resolve with OTC tylenol 1000mg or ibuprofen 400mg, although not tried together. Has been seen by Neuro-Oncology and Radiation Oncology with concurrent XRT/Temodar started yesterday. Visual hallucinations, word finding difficulty, and headaches not significantly worse since starting XRT/Temodar. Patient Vitals for the past 24 hrs: Temp Pulse Resp BP SpO2 08/31/23 1343 36.7 ??C (98.1 ??F) 86 17 95/66 97 % PHYSICAL EXAM: No acute distress Awake, Alert, Interactive Face symmetric Moving all extremities with symmetric and full strength Cranial incision healing well without drainage, erythema, swelling or sign of pseudomeningocele IMAGING & OTHER RESULTS: No new imaging ASSESSMENT: 82yo male with hx of WFD and changes in memory found to have LEFT temporal GBM, WHO Grade 4, IDH-wts/p rsx 08/04/[address] Dunlap with a satisfactory post operative course. For headaches, recommend trying tylenol/ibuprofen together, as well as sleeping with head elevated. Discussed keeping appointment with neuro- ophthalmology, especially with return of visual hallucinations. PLAN: Keep appointments with Neuro-Ophthalmology, Radiation Oncology, Neuro-Oncology and Palliative Care Follow-up in the neurosurgery clinic as needed Total time spent on date of service: 30 minutes, of which 20 minutes spent in counseling about the patient's condition and addressing questions regarding natural course history and treatment options. Toyna Plasencia PA-C documented in this encounter Plan of Treatment Upcoming Encounters Date Type Department Care Team (Late st Contact Info) Description 10/27/2023 11:15 AM EDT Office Visit Palliative Medicine at [place] [address] [facility] [address] HOSPICE [place] [address] 10/27/2023 1:00 PM EDT Office Visit Speech Therapy at [address] Debra Franco, SENIOR PL SQL DEVELOPER 11/03/2023 2:00 PM EDT Office Visit Speech Therapy at [place] [address] Debra Franco, SENIOR PL SQL DEVELOPER 11/08/2023 2:30 PM EDT Appointment MRI at [place] [address] [facility] [place] [address] 11/09/2023 1:45 PM EDT Office Visit Hematology and Oncology at [address] [facility] [address] 11/11/2023 10:30 AM EDT Office Visit [place] [address] [facility] [place] [address] 11/15/2023 10:00 AM EDT Office [place] [address] Debra rFanco, SENIOR PL SQL DEVELOPER 11/16/2023 9:00 AM EDT Office Visit Hematology [place] [address] Bisi Nam 11/22/2023 10:00 AM EDT Office [place] [address] Debra Franco, SENIOR PL SQL DEVELOPER 11/30/2023 9:00 AM EDT Office Visit Hematology [place] [address] Bisi Nam 12/14/2023 9:00 AM EDT Office Visit Hematology [place] [address] Bisi Nam 12/28/2023 9:00 AM EDT Office Visit Hematology [place] [address] Bisi Nam documented as of this encounter Goals Goal Patient Goal Type Associated Problems Recent Progress Patient-Stated? Author Patient's specific desired goal: Patient Facing Action Plan Andrei Lee, [facility] Note: Goal(s): maintain quality of [...] brain documented in this encounter Care Teams Notary Public Relationship Specialty Start Date End Date Molina Herr MD [facility] [address] [place] [address] PCP - General 01/27/10 documented as of this encounter
--- OUTSIDE RECORDS SUMMARY | 2023-10-17 15:06 | XMS_ITS | Encounter Summary ---
[place] [address] Care Team Providers Care Dry Charge Process Attendant Name Role Phone Molina Herr MD Primary Care Provider [phone] Reason for Visit * Reason Onset Date Comments Chemotherapy Teaching 08/30/2023 Encounter Details Date Type Department Care Team (Late st Contact Info) Description 08/30/2023 Telephone [place]ematology [place] [address] Malgorzata Reynoso, LION TAMER ROOM Chemotherapy Teaching Social History Tobacco Use Types Packs/Day Years Used Date Smoking Tobacco: Never Smokeless Tobacco: Never Alcohol Use Standard Drinks/Week Comments Not Currently 0 (1 standard drink = 0.6 oz pur e alcohol) nothing in a few months B1300 Health Literacy Answer Date Recor ded How often do you need to hav e someone help you when you read instructions, pamphlets, or other written material from your doctor or pharmacy? Sometimes 08/22/2023 [facility] Utilities Answer Date Recorded In the past [...] the past 12 m [facility], were you homeless or living in a retirement (including now)? No 08/22/2023 [facility] IPV Inpatient [...] Telephone Encounter - Malgorzata Reynoso RN - 08/30/2023 7:15 AM EDT Concurrent therapy w/ temodar 145mg QD w/concurrent RT starting 08/29 Labs: Weekly CBC, QOW CMP Orders pended to provider for review and signature Tuesdays : 09/05, 09/12, 09/19 Spoke w/ pt and June. He is planning on taking his first dose of temodar tonight. June was able to repeat how to administer the temodar correctly as well as state the correct dose. All their questions answered to their apparent satisfaction. They are aware to call clinic w/any concerns/questions. Antitumor Therapy Schedule: Temozolomide (temodar) is given daily during radiation. It is taken 7 days/week for a total of 21 days. Laboratory Tests: Baseline: CBC, CMP, Iron, Vit B12- done During treatment: CBC weekly; CMP every 2 weeks. To be drawn Tuesdays ( 09/05, 09/12/ 09/19) Provider Visits: Once every 2 weeks or more frequent if your provider deems necessary Possible Side Effects include, but are not limited to: Temozolomide (Temodar): The most common potential side effects include: Decrease in blood counts (decrease in white blood cells, red blood cells and platelets, resulting in increased risk of infection, anemia and bleeding), nausea/vomiting, decreased appetite, constipation, fatigue, loss of fertility. Less common side effects include skin rash or itching, worsening liver function, swelling. There is a rare potential for a secondary blood cancer. Medications: the following prescriptions should be picked up before starting treatment Temozolomide 145mg by mouth daily. Take on an empty stomach in the evening No food 2 hrs before or 1+hrs after. tart temodar the night of your first radiation. Take temodar every day, 7 days/week, including holidays or days you miss radiation, while you are receiving radiation. Zofran (ondansetron): 4 mg tablet. Take one hour prior to temodar and every 4 hours as needed for nausea. Ducocate Sodium (Colace): 50-100 mg 1-2x daily as needed for constipation AND/OR Sennokot (Senna): 8.6 mg 1-2x daily as needed for constipation OR Miralax 1-2 x daily Smooth Move tea (Traditional Medicinals), prunes, prune juice as needed Energy Levels / Fatigue: Fatigue can be cumulative, meaning it can become worse with each treatment. It is important to save your energy for the things most important to you Try to stay active, but listen to your body when it is time to rest Safe Handling Store your chemotherapy in a safe, dry place away from children and pets If family members will be handling the chemotherapy they should be wearing gloves. Wash hands immediately after handling. If you are of childbearing age, you should use control during cancer treatment to prevent . 48 to 72 hours after chemotherapy- if having sexual intercourse we recommend using condoms or a barrier method to protect partner against coming into contact with chemotherapy in your body fluids 48 to 72 hours after chemotherapy- caregiver should wear gloves for direct contact with any of yourbody fluids When to Call: Fever of 100.4 ??F or greater Nausea or vomiting Constipation (No BM x 48 hrs) Breakthrough Seizure Headache Skin changes or rash New or worsening neurologic symptoms Pain, swelling or warmth in the lower extremities Any questions or concerns Please call [phone] if you do not have a bowel movement for 48 hours, any nausea not controlled with the zofran or any other new or worsening symptoms. Thank you. documented in this encounter Plan of Treatment Upcoming Encounters Date Type Department Care Team (Late st Contact Info) Description 10/27/2023 11:15 AM EDT Office Visit Palliative Medicine at [place] [address] Elly Alston MD [facility] HOSPICE [place] [address] 10/27/2023 1:00 PM EDT Office Visit Speech Therapy at [place] [address] Debra Franco, REPAIRER SHOE STICKS 11/03/2023 2:00 PM EDT Office Visit Speech Therapy at [place] [address] Debra Franco, REPAIRER SHOE STICKS 11/08/2023 2:30 PM EDT Appointment MRI at [place] [address] Navjot Grider MD [facility] [place] [address] 11/09/2023 1:45 PM EDT Office Visit Hematology and Oncology at [place] [address] Isabell Jacob MD [facility] DR NEUROLOGY [place] [id number] 11/11/2023 10:30 AM EDT Office Visit Radiation Oncology at [place] [phone] Nicki Sharpe MD [facility] [place] [address] 11/15/2023 10:00 AM EDT Office [place] [address] Debra Franco, REPAIRER SHOE STICKS 11/16/2023 9:00 AM EDT Office Visit Hematology [place] [address] Bisi Nam 11/22/2023 10:00 AM EDT Office [place] [address] Debra Franco, REPAIRER SHOE STICKS 11/30/2023 9:00 AM EDT Office Visit Hematology [place] [address] Bisi Nam 12/14/2023 9:00 AM EDT Office Visit Hematology [place] [address] Bisi Nam 12/28/2023 9:00 AM EDT Office Visit [place]ematology [place] [address] Bisi Nam documented as of this encounter Goals Goal Patient Goal Type Associated Problems Recent Progress Patient-Stated? Author Patient's specific desired goal: Patient Facing Action Plan Andrei Lee, [facility] Note: Goal(s): maintain quality [...] medications documented in this encounter Care Teams Dry Charge Process Attendant Relationship Specialty Start Date End Date Molina Herr MD [facility] [address] [place] [address] PCP - General 01/27/10 documented as of this encounter
--- OUTSIDE RECORDS SUMMARY | 2023-10-17 15:06 | XMS_ITS | Encounter Summary ---
Author Organization [facility] [place] [address] Care Team Providers Care Program Services Planner Name Role Phone Molina Herr MD Primary Care Provider [phone] Encounter Details Date Type Department Care Team (Late st Contact Info) Description 09/07/2023 Telephone [place]ematology [place] [phone] Belinda Peña PA [facility] [place] [address] Social History Tobacco Use Types Packs/Day Years [...] from your doctor or pharmacy? Sometimes 08/22/2023 [facility] Utilities Answer Date Recorded In the past 12 months has [employer], gas, oil, or water [employer] threatened to shut off services in your [...] were you homeless or living in a long term (including now)? No 08/22/2023 IPV Inpatient Questions [...] Telephone Encounter - Belinda Peña PA - 09/07/2023 10:35 AM EDT LVM that labs were benign. Will repeat in a week. Please call office for questions MURPHY [place] documented in this encounter Plan of Treatment Upcoming Encounters Date Type Department Care Team (Late st Contact Info) Description 10/27/2023 11:15 AM EDT Office Visit Palliative Medicine at [place] [address] Elly Alston MD [facility] HOSPICE AND [place] [address] 10/27/2023 1:00 PM EDT Office Visit Speech Therapy at [place] [address] Debra Franco, HOOKER OFF 11/03/2023 2:00 PM EDT Office Visit Speech Therapy at [place] [address] Debra Franco, HOOKER OFF 11/08/2023 2:30 PM EDT Appointment MRI at [place] [address] Navjot Grider MD [facility] DR HEMATOLOGY [place] [address] 11/09/2023 1:45 PM EDT Office Visit Hematology and Oncology at [place] [address] Isabell Jacob MD [facility] [place] [address] 11/11/2023 10:30 AM EDT Office Visit Radiation Oncology at [place] [address] Nicki Sharpe MD [facility] [place] [address] 11/15/2023 10:00 AM EDT Office Visit Speech Therapy at [address] Debra Franco, HOOKER OFF 11/16/2023 9:00 AM EDT Office Visit Hematology and Oncology at [place] [address] Bisi Nam 11/22/2023 10:00 AM EDT Office [place] [address] Debra Franco, HOOKER OFF 11/30/2023 9:00 AM EDT Office Visit Hematology [place] [address] Bisi Nam 12/14/2023 9:00 AM EDT Office Visit Hematology [place] [address] Bisi Nam 12/28/2023 9:00 AM EDT Office Visit [place]ematology [place] [address] Bisi Nam documented as of this encounter Goals Goal Patient Goal Type Associated Problems Recent Progress Patient-Stated? Author Patient's specific desired goal: Patient Facing Action Plan Andrei Lee, [facility] Note: Goal(s): maintain quality of life as much as possible Measured by: quality of life scale, ability to participate in activities which he enjoys and needs to do Time-frame: to be assessed at approximately the one year point by pharmacy, or sooner if patient asks to discuss documented as of this encounter Visit Diagnoses Not on filedocumented in this encounter Care Teams Program Services Planner Relationship Specialty Start Date End Date Molina Herr MD [facility] [address] [place] [address] PCP - General 01/27/10 documented as of this encounter
--- OUTSIDE RECORDS SUMMARY | 2023-10-17 15:06 | XMS_ITS | Encounter Summary ---
Author [facility] [place] [address] Care Team Providers Care Liquor Grinding Mill Operator Name Role Phone Molina Herr MD Primary Care Provider [phone] Encounter Details Date Type Department Care Team (Late st Contact Info) Description 09/09/2023 9:45 AM EDT Office Visit [place] [phone] Nicki Sharpe MD [facility] [place] [address] Brain tumor Social History Tobacco Use Types [...] from your doctor or pharmacy? Sometimes 08/22/2023 [facility] Utilities Answer Date Recorded In the past [...] Sign Reading Time Taken Comments Blood Pressure 102/58 09/09/2023 9:47 AM EDT Pulse 77 09/09/2023 9:47 AM EDT Temperature - - Respiratory Rate 18 09/09/2023 9:47 AM EDT Oxygen Saturation 97% 09/09/2023 9:47 AM EDT Inhaled Oxygen Concentration - - Weight 79.4 kg (175 lb) 09/09/2023 9:47 AM EDT w ith shoes Height - - Body Mass Index 26.61 09/05/2023 1:05 PM EDT documented in this encounter Progress Notes * Nicki Sharpe MD - 09/09/2023 9:45 AM EDT Images from the original note were not included. [facility] Medicine Radiation Oncology Radiation Oncology On-Treatment [...] Once daily n Treatment progress: Today's Date: 09/09/23 Radiation Therapy Dose: 14Gy, 7 fractions Clinical Trial: no n Clinical course: [...] n Follow-up/plan: Continue treatment as planned. Continue 4mg of dexamethasone daily in the morning with breakfast and PPI Referral to audiology placed Instructed on signs and symptoms to watch out for and when to call or go to the ED Encouraged to contact us with any additional questions or concerns Nicki Sharpe MD, PhD [facility] Cancer [place] Radiation Oncology National Cancer [place] (NCI) [facility] [employer] Commission on Cancer (ACS [place]) Accredited Cancer Program [employer] (ACR) Accredited Radiation Oncology Program documented in this encounter Plan of Treatment Upcoming Encounters Date Type Department Care Team (Late st Contact Info) Description 10/27/2023 11:15 AM EDT Office Visit Palliative Medicine at [place] [phone] Elly Alston MD [facility] DR HOSPICE [place] [address] 10/27/2023 1:00 PM EDT Office Visit Speech Therapy at [place] [phone] Debra Franco, OPERATING SYSTEM DESIGNER 11/03/2023 2:00 PM EDT Office Visit [place] [address] Debra Franco, OPERATING SYSTEM DESIGNER 11/08/2023 2:30 PM EDT Appointment MRI at [place] [phone] Navjot Grider MD [facility] [place] [address] 11/09/2023 1:45 PM EDT Office Visit Hematology and Oncology at [place] [phone] Isabell Jacob MD [facility] [place] [address] 11/11/2023 10:30 AM EDT Office Visit Radiation Oncology at [place] [phone] Nicki Sharpe MD [facility] [place] [address] 11/15/2023 10:00 AM EDT Office Visit Speech Therapy at [place] [phone] Debra Franco, OPERATING SYSTEM DESIGNER 11/16/2023 9:00 AM EDT Office Visit Hematology [place] [address] Bisi Nam 11/22/2023 10:00 AM EDT Office Visit [place] [address] Debra Franco, OPERATING SYSTEM DESIGNER 11/30/2023 9:00 AM EDT Office Visit Hematology [place] [address] Bisi Nam 12/14/2023 9:00 AM EDT Office Visit Hematology [place] [address] Bisi Nam 12/28/2023 9:00 AM EDT Office Visit Hematology [place] [address] Bisi Nam documented as of this encounter Goals Goal Patient Goal Type Associated Problems Recent Progress Patient-Stated? Author Patient's specific desired goal: Patient Facing Action Plan Andrei Lee, [facility] Note: Goal(s): maintain quality of life [...] brain documented in this encounter Care Teams Liquor Grinding Mill Operator Relationship Specialty Start Date End Date Molina Herr MD [address] [address] [place] [address] PCP - General 01/27/10 documented as of this encounter
--- OUTSIDE RECORDS SUMMARY | 2023-10-17 15:06 | XMS_ITS | Encounter Summary ---
Author Organization [facility] [place] [address] Care Team Providers Care Screen Maker Name Role Phone Molina Herr MD Primary Care Provider [phone] Encounter Details Date Type Department Care Team (Latest Contact Info) Description 09/02/2023 Travel Social History Tobacco Use Types Packs/Day [...] Sometimes 08/22/2023 [facility] Utilities Answer Date Recorded In the past 12 months has [facility], gas, oil, or water [employer] threatened to shut off services in your [...] time in the past [address] [facility], were you homeless or living in [...] AM EDT Office [place] [address] Elly Alston MD [facility] [address] HOSPICE [place] [address] 10/27/2023 1:00 PM EDT Office [place] [address] Debra Franco, BUS SYSTEM OPERATOR 11/03/2023 2:00 PM EDT Office [place] [address] Debra Franco, BUS SYSTEM OPERATOR 11/08/2023 2:30 PM EDT Appointment MRI at [place] [address] Navjot Grider MD [facility] [address] [place] [address] 11/09/2023 1:45 PM EDT Office Visit Hematology and Oncology at [address] Isabell Jacob MD [facility] [place] [address] 11/11/2023 10:30 AM EDT Office Visit Radiation Oncology at [address] Nicki Sharpe MD [facility] [place] [address] 11/15/2023 10:00 AM EDT Office [place] [address] Debra Franco, ROLANDO 11/16/2023 9:00 AM EDT Office Visit Hematology [place] [address] Bisi Nam 11/22/2023 10:00 AM EDT Office [place] [address] Debra Franco, ROLANDO 11/30/2023 9:00 AM EDT Office Visit Hematology [place] [address] Bisi Nam 12/14/2023 9:00 AM EDT Office Visit Hematology [place] [address] Bisi Nam 12/28/2023 9:00 AM EDT Office Visit [place]ematology [place] [address] Bisi Nam documented as of this encounter Goals Goal Patient Goal Type Associated Problems Recent Progress Patient-Stated? Author Patient's specific desired goal: Patient Facing Action Plan Andrei Lee, [facility] Note: Goal(s): maintain quality of life as much as possible Measured by: quality of life scale, ability to participate in activities which he enjoys and needs to do Time-frame: to be assessed at approximately the one year point by pharmacy, or sooner if patient asks to discuss documented as of this encounter Visit Diagnoses Not on filedocumented in this encounter Care Teams Screen Maker Relationship Specialty Start Date End Date Molina Herr MD [facility] [address] [place] [address] PCP - General 01/27/10 documented as of this encounter
--- OUTSIDE RECORDS SUMMARY | 2023-10-17 15:06 | XMS_ITS | Encounter Summary ---
[place] [address] Care Team Providers Care Business Services Sales Representative Name Role Phone Molina Herr MD Primary Care Provider [phone] Encounter Details Date Type Department Care Team (Latest Contact Info) Description 09/14/2023 Specialty [place] [phone] Nhi Loving, [facility] Refill Coordination - 28 day recurrence (temozolomide) for HemOnc Social History Tobacco Use Types Packs/Day Years [...] doctor or pharmacy? Sometimes 08/22/2023 [facility] Utilities Answer Date Recorded In the past [...] as of this encounter Progress Notes * Nhi Loving RPH - 09/14/2023 1:27 PM EDT Clinical Management Plan: Refill Specialty Pharmacy Consultation; Nhi Loving RPH Comprehensive Medication Management (CMM) Mr. Perfecto Polk is a 82 y.o. (1940) male who was contacted in regard to a specialty medication refill reminder. The patient requested a refill of Temozolomide. A review of the medication therapy was performed. The medication was refilled as scheduled, and all medication related questions and concerns were addressed. The specialty pharmacy staff will follow up with the patient 5-7 days prior to next refill. Was a change made to the Care Plan: No. PT to complete full 42 days of chemoradiation therapy. Medication Therapy Recommendations No medication therapy recommendations to display Allergies and Drug intolerance: Allergies Allergen Reactions Penicillins Hives PAT Penicillin Allergy Risk Assessment 06/13/2023: Low risk penicillin allergy. OK to receive full dose of cefazolin, cefuroxime, or any 3rd or 4th+ generation cephalosporin. Medication Reconciliation Discrepancies (compared to [facility] med list) No Review Flowsheet 09/15/2023 8:16 PM Assessment What is the name of the specialty medication you are refilling? Temozolomide Are you taking any new medications? No Any new medical conditions? No Any new allergies? No Any new side effects that are bothersome? No Any missed doses since your last fill? 0 How many doses do you have remaining on hand? 4 Would you like a pharmacist to reach out to you to answer any questions? No What date will you need this fill by? 09/19/2023 Adherence: Any missed doses? No Patient understands no changes to current drug regimen were made. Nhi Loving RPH 09/14/23 12:03 PM documented in this encounter Plan of Treatment Upcoming Encounters Date Type Department Care Team (Late st Contact Info) Description 10/27/2023 11:15 AM EDT Office Visit [place] [address] Elly Alston MD [facility] [address] HOSPICE [place] [address] 10/27/2023 1:00 PM EDT Office [place] [address] Debra Franco APPLIANCE SERVICE SUPERVISOR 11/03/2023 2:00 PM EDT Office [place] [address] Debra Franco APPLIANCE SERVICE SUPERVISOR 11/08/2023 2:30 PM ED[place] [address] Navjot Grider MD [facility] [address] [place] [address] 11/09/2023 1:45 PM EDT Office Visit Hematology and Oncology at [place] [address] Isabell Jacob MD [facility] [place] [address] 11/11/2023 10:30 AM EDT Office Visit Radiation Oncology at [place] [address] Nicki Shrape MD [facility] [place] [address] 11/15/2023 10:00 AM EDT Office Visit Speech Therapy at [place] [phone] Debra Franco, APPLIANCE SERVICE SUPERVISOR 11/16/2023 9:00 AM EDT Office Visit Hematology and Oncology at [place] [phone] Bisi Nam 11/22/2023 10:00 AM EDT Office Visit Speech Therapy at [place] [phone] Debra Franco, APPLIANCE SERVICE SUPERVISOR 11/30/2023 9:00 AM EDT Office Visit Hematology [place] [address] Bisi Nam 12/14/2023 9:00 AM EDT Office Visit Hematology [place] [address] Bisi Nam 12/28/2023 9:00 AM EDT Office Visit Hematology [place] [address] Bisi Nam documented as of this encounter Goals Goal Patient Goal Type Associated Problems Recent Progress Patient-Stated? Author Patient's specific desired goal: Patient Facing Action Plan No Andrei Egan, [facility] Note: Goal(s): maintain quality of life as much as possible Measured by: quality of life scale, ability to participate in activities which he enjoys and needs to do Time-frame: to be assessed at approximately the one year point by pharmacy, or sooner if patient asks to discuss documented as of this encounter Visit Diagnoses Not on filedocumented in this encounter Care Teams Business Services Sales Representative Relationship Specialty Start Date End Date Molina Herr MD [facility] [address] [place] [address] PCP - General 01/27/10 documented as of this encounter
--- OUTSIDE RECORDS SUMMARY | 2023-10-17 15:06 | XMS_ITS | Encounter Summary ---
Author Organization [facility] [place] [address] Care Team Providers Care Coke Handling Supervisor Name Role Phone Molina Herr MD Primary Care Provider [phone] Encounter Details Date Type Department Care Team (Latest Contact Info) Description 09/13/2023 9:37 AM EDT - 09/13/2023 11:59 PM EDT Hospital Encounter Hematology [place] [address] Glioblastoma of temporal lobe; High [...] from your doctor or pharmacy? Sometimes 08/22/2023 [facility] Utilities Answer Date Recorded In [...] any time in the past 12 m [facility], were you homeless or living in a long term (including now)? No 08/22/2023 [facility] IPV Inpatient [...] Sig Dispensed Refills Start Date End Date temozolomide (Temodar) 5 mg capsuleIndications:G lioblastoma of [...] 20 mg by mouth daily. 4 03/08/2014 [id number] c (SOURCE CF) 200-10 mcg-mg Chew Take 1 tablet by mouth daily. 08/04/2010 levothyroxine (SYNTHROID) 25 mcg tablet 25MCG = 1 Tablet(s), PO, Once daily 09/27/2007 atorvastatin (LIPITOR) 10 mg tablet Take 20 mg by mouth. 09/27/2007 ondansetron (Zofran) 4 mg tablet Take 1 tablet by mouth every 8 hours as needed for Nausea. 30 tablet 08/25/2023 09/15/2023 documented as of this encounter Plan of Treatment Upcoming Encounters Date Type Department Care Team (Late st Contact Info) Description 10/27/2023 11:15 AM EDT Office [place] [address] Elly Alston MD [facility] HOSPICE AND [place] [address] 10/27/2023 1:00 PM EDT Office Visit Speech Therapy at [place] [address] Debra Franco, RAW STOCK DYEING MACHINE TENDER 11/03/2023 2:00 PM EDT Office Visit Speech Therapy at [place] [phone] Debra Franco, RAW STOCK DYEING MACHINE TENDER 11/08/2023 2:30 PM EDT Appointment MRI at [address] Navjot Grider MD [facility] [place] [address] 11/09/2023 1:45 PM EDT Office Visit Hematology and Oncology at [place] [address] Isabell Jacob MD [facility] [place] [address] 11/11/2023 10:30 AM EDT Office Visit Radiation Oncology at [place] [address] Nicki Sharpe MD [facility] [place] [address] 11/15/2023 10:00 AM EDT Office Visit Speech Therapy at [place] [phone] Debra Franco, RAW STOCK DYEING MACHINE TENDER 11/16/2023 9:00 AM EDT Office Visit Hematology and Oncology at [place] [phone] Bisi Nam 11/22/2023 10:00 AM EDT Office [place] [address] Debra Franco SLP 11/30/2023 9:00 AM EDT Office Visit [place] [address] Bisi Nam 12/14/2023 9:00 AM EDT Office Visit [place]ology [place] [address] Bisi Nam 12/28/2023 9:00 AM EDT Office Visit [place] [address] Bisi Nam documented as of this encounter [...] Priority Date/Time Associated Diagnosis Comments HEMOGRAM Routine 09/13/2023 9:46 AM EDT Glioblastoma of temporal lobe 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 use DIFFERENTIAL, AUTOMATED Routine 09/13/2023 9:46 AM EDT Glioblastoma of temporal lobe 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 use CBC (WITH DIFF) Routine 09/13/2023 9:46 AM EDT Glioblastoma of temporal lobe 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 use documented in this encounter Results * (ABNORMAL) Differential, Automated (09/13/2023 9:46 AM EDT) Neutrophil % 82.9 % [facility] Neutrophil Absolute 9.98(H) 1.70 - 6.10 x10(3)/mc L [facility] Lymph % 6.6 % [facility] Lymphocytes Abs 0.8(L) 0.9 - 3.2 x10(3)/mc L [facility] Monocyte % 8.1 % [facility] Monocyte Abs 1.0(H) 0.3 - 0.9 x10(3)/mc L [facility] Eos % 0.9 % [facility] Eosinophils Abs 0.1 0.0 - 0.4 x10(3)/ L [facility] Basophil % 0.5 % [facility] Baso Absolute 0.1 0.0 - 0.1 x10(3)/ L [facility] Immature Gran % 1.00 % [facility] Comment: Immature granulocytes(IG's)percentage and absolute count will include metamyelocytes, myelocytes, and promyelocytes. Blood smears from CBCs yielding IG's will be scanned manually for concordance. If this scan disagrees with the automated IG or if promyelocytes are noted, a manual differential will be performed. Immature Gran Absolute 0.12(H) 0.00 - 0.04 x10(3)/ L [facility] Blood 09/13/2023 9:46 AM EDT 09/13/2023 9:57 AM EDT Narrative Resulting Agency Comment Spec In Lab Belinda ARRINGTON HEMATOLOGY ORDERABLE S [facility] [place] [address] * (ABNORMAL) Hemogram (09/13/2023 9:46 AM EDT) White Blood Cell 12.0(H) 4.0 - 9.5 x10(3)/ L [facility] Red Blood Cell 4.12(L) 4.58 - 5.54 x10(6)/mc L [facility] Hemoglobin 11.2(L) 13.7 - 16.5 g/dL [facility] Hematocrit 35.1(L) 40.5 - 48.5 % [facility] Mean Cell Volume 85.2 82.9 - 93.1 fL [facility] Mean Cell Hemoglobin 27.2(L) 27.5 - 32.1 pg [facility] Mean Cell Hemoglobin Concentration 31.9(L) 32.0 - 35.7 g/dL [facility] Platelet 431(H) 145 - 357 x10(3)/mc L [facility] RDW Standard Deviation 50.0(H) 36.0 - 45.0 fL [facility] RDW coefficient of variation 16.0(H) 11.4 - 13.8 % [facility] Mean Platelet Volume 9.0 7.6 - 12.9 fL [facility] NRBC% auto 0.0 % [facility] NRBC Absolute 0.000 0.000 - 0.000 x10(3)/mc L [facility] Blood 09/13/2023 9:46 AM EDT 09/13/2023 9:57 AM EDT Narrative Resulting Agency Comment Spec In Lab Belinda ARRINGTON HEMATOLOGY ORDERABLE S [facility] [place] [address] documented in this encounter Visit Diagnoses Diagnosis 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
--- OUTSIDE RECORDS SUMMARY | 2023-10-17 15:06 | XMS_ITS | Encounter Summary ---
Author Organization [facility] [place] [address] Care Team Providers Care Interventional Radiology Tech Name Role Phone Molina Herr MD Primary Care Provider [phone] Encounter Details Date Type Department Care Team (Late st Contact Info) Description 09/14/2023 [place]phone [place] [address] Yudith Jain MD [facility] [place] [place] [address] Social History Tobacco Use Types Packs/Day Years [...] doctor or pharmacy? Sometimes 08/22/2023 [facility] Utilities Answer Date Recorded In the [...] you homeless or living in a senior care (including now)? No 08/22/2023 IPV Inpatient Questions [...] encounter Miscellaneous Notes * Telephone Encounter - Jennifer Hernandez - 09/14/2023 3:55 PM EDT Spoke to pt and addressed his questions regarding what he has access to in regards for notes and testing on my . Shared with him that our system only allows us to share glasses/contacts prescriptions, provider's office notes and the after visit summary. Other diagnostic testing results obtained from in clinic visit including HVFs, imaging and visual exam are not shared through the [facility] system. Pt expressed understanding and requested to have his pertinent office notes, and diagnotic testing results be shared with his new provider at [facility], Dr. Singh. Pt also requested havingaccess to his visual field results, as he was not given them at his initial visit with provider. 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 Pt expressed he would like to have those materials mailed to him. Reassured patient that if he has further questions or concerns that he should not hesitate to reachout to us, and if he wants we are happy to set up an appt with Dr. Jain to do so. Stated that we will mail/fax all the necessary and requested documents this week. Patient expressed understanding. documented in this encounter Plan of Treatment Upcoming Encounters Date Type Department Care Team (Late st Contact Info) Description 10/27/2023 11:15 AM EDT Office Visit Palliative Medicine at [place] [phone] Elly Alston MD [facility] HOSPICE AND [place] [address] 10/27/2023 1:00 PM EDT Office Visit Speech Therapy at [place] [phone] Debra Franco, UNDERGROUND MINE MACHINERY MECHANIC 11/03/2023 2:00 PM EDT Office [place] [address] Debra Franco, UNDERGROUND MINE MACHINERY MECHANIC 11/08/2023 2:30 PM EDT Appointment MRI at [place] [phone] Navjot Grider MD [facility] HEMATOLOGY [place] [address] 11/09/2023 1:45 PM EDT Office Visit Hematology and Oncology at [place] [phone] Isabell Jacob MD [facility] [place] [address] 11/11/2023 10:30 AM EDT Office Visit Radiation Oncology at [place] [phone] Nicki Sharpe MD [facility] [place] [address] 11/15/2023 10:00 AM EDT Office Visit Speech Therapy at [place] [phone] Debra Franco, UNDERGROUND MINE MACHINERY MECHANIC 11/16/2023 9:00 AM EDT Office Visit Hematology [place] [address] Bisi Nam 11/22/2023 10:00 AM EDT Office [place] [address] Debra Franco, UNDERGROUND MINE MACHINERY MECHANIC 11/30/2023 9:00 AM EDT Office Visit Hematology [place] [address] Bisi Nam 12/14/2023 9:00 AM EDT Office Visit Hematology [place] [address] Bisi Nam 12/28/2023 9:00 AM EDT Office Visit Hematology [place] [address] Bisi Nam documented as of this encounter Goals Goal Patient Goal Type Associated Problems Recent Progress Patient-Stated? Author Patient's specific desired goal: Patient Facing Action Plan Andrei Lee, [facility] Note: Goal(s): maintain quality of life as much as possible Measured by: quality of life scale, ability to participate in activities which he enjoys and needs to do Time-frame: to be assessed at approximately the one year point by pharmacy, or sooner if patient asks to discuss documented as of this encounter Visit Diagnoses Not on filedocumented in this encounter Care Teams Interventional Radiology Tech Relationship Specialty Start Date End Date Molina Herr MD [facility] [address] [place] [address] PCP - General 01/27/10 documented as of this encounter
--- OUTSIDE RECORDS SUMMARY | 2023-10-17 15:06 | XMS_ITS | Encounter Summary ---
Author Organization [facility] [place] [address] Care Team Providers Care Instructor Watch Assembly Name Role Phone Molina Herr MD Primary Care Provider [phone] Encounter Details Date Type Department Care Team (Latest Contact Info) Description 09/12/2023 Travel Social History Tobacco Use Types Packs/Day [...] from your doctor or pharmacy? Sometimes 08/22/2023 [facility] Utilities Answer Date Recorded In the past [address] [facility] [employer], gas, oil, or water [employer] threatened to shut off services in your [...] any time in the past 12 m [facility], were you homeless or living in [...] AM EDT Office [place] [address] Elly Alston MD [facility] DR HOSPICE AND [place] [address] 10/27/2023 1:00 PM EDT Office [place] [address] Debra Franco, [employer] TRUCK [employer] 11/03/2023 2:00 PM EDT Office [place] [address] Debra Franco, [employer]IVER 11/08/2023 2:30 PM EDT Appointment MRI at [place] [address] Navjot Grider MD [facility] DR [place] [address] 11/09/2023 1:45 PM EDT Office Visit Hematology and Oncology at [address] Isabell Jacob MD [facility] [place] [address] 11/11/2023 10:30 AM EDT Office Visit Radiation Oncology at [address] Nicki Sharpe MD [facility] [place] [address] 11/15/2023 10:00 AM EDT Office [place] [address] Debra Franco, ROLANDO 11/16/2023 9:00 AM EDT Office Visit H[place]ology [place] [address] Bisi Nam 11/22/2023 10:00 AM EDT Office [place] [address] Debra Franco, ROLANDO 11/30/2023 9:00 AM EDT Office Visit H[place]ology [place] [address] Bisi Nam 12/14/2023 9:00 AM EDT Office Visit [place]ology [place] [address] Bisi Nam 12/28/2023 9:00 AM EDT Office Visit [place]ology [place] [address] Bisi Nam documented as of this encounter Goals Goal Patient Goal Type Associated Problems Recent Progress Patient-Stated? Author Patient's specific desired goal: Patient Facing Action Plan Andrei Lee, [facility] Note: Goal(s): maintain quality of life as much as possible Measured by: quality of life scale, ability to participate in activities which he enjoys and needs to do Time-frame: to be assessed at approximately the one year point by pharmacy, or sooner if patient asks to discuss documented as of this encounter Visit Diagnoses Not on filedocumented in this encounter Care Teams Instructor Watch Assembly Relationship Specialty Start Date End Date Molina Herr MD [facility] [address] [place] [address] PCP - General 01/27/10 documented as of this encounter
--- OUTSIDE RECORDS SUMMARY | 2023-10-17 15:06 | XMS_ITS | Encounter Summary ---
Author Organization [facility] [place] [address] Care Team Providers Care Athlete Manager Name Role Phone Molina Herr MD Primary Care Provider [phone] Encounter Details Date Type Department Care Team (Latest Contact Info) Description 09/13/2023 Travel Social History Tobacco Use Types Packs/Day [...] doctor or pharmacy? Sometimes 08/22/2023 [facility] Utilities Answer Date Recorded In the past 12 months has [facility] [employer], gas, oil, or water [employer] threatened to shut off services in your [...] in the past 12 m [facility], were you homeless or living in a [...] Office [place] [address] Elly Alston MD [facility] [address] HOSPICE [place] [address] 10/27/2023 1:00 PM EDT Office [place] [address] Debra Franco, DOCTOR OF NATUROPATHIC MEDICINE 11/03/2023 2:00 PM EDT Office [place] [address] Debra Franco, DOCTOR OF NATUROPATHIC MEDICINE 11/08/2023 2:30 PM EDT Appointment MRI at [place] [address] Navjot Grider MD [facility] [address] [place] [address] 11/09/2023 1:45 PM EDT Office Visit Hematology and Oncology at [address] Isabell aJcob MD [facility] [place] [address] 11/11/2023 10:30 AM EDT Office Visit Radiation Oncology at [address] Nicki Sharpe MD [facility] [place] [address] 11/15/2023 10:00 AM EDT Office [place] [address] Debra Franco, ROLANDO 11/16/2023 9:00 AM EDT Office Visit Hematology [place] [address] Bisi Nam 11/22/2023 10:00 AM EDT Office [place] [address] Debra Franco, ROLANDO 11/30/2023 9:00 AM EDT Office Visit Hematology [place] [address] Bisi Nam 12/14/2023 9:00 AM EDT Office Visit Hematology [place] [address] Bisi Nam 12/28/2023 9:00 AM EDT Office Visit Hematology [place] [address] Bisi Nam documented as of this encounter [...] on filedocumented in this encounter Care Teams Athlete Manager Relationship Specialty Start Date End Date Molina Herr MD [facility] [address] [place] [address] PCP - General 01/27/10 documented as of this encounter
--- OUTSIDE RECORDS SUMMARY | 2023-10-17 15:06 | XMS_ITS | Encounter Summary ---
Author Organization [facility] [place] [address] Care Team Providers Care Stitcher Tape Controlled Machine Name Role Phone Molina Herr MD Primary Care Provider [phone] Encounter Details Date Type Department Care Team (Latest Contact Info) Description 09/06/2023 10:18 AM EDT - 09/06/2023 11:59 PM EDT Hospital Encounter [place] [address] Glioblastoma of temporal lobe; High [...] from your doctor or pharmacy? Sometimes 08/22/2023 [facility] Utilities Answer Date Recorded In the past [...] 20 mg by mouth daily. 4 03/08/2014 [id number] c (SOURCE CF) 200-10 mcg-mg Chew Take [...] AM EDT Office [place] [address] Elly Alston MD [facility] HOSPICE [place] [address] 10/27/2023 1:00 PM EDT Office Visit Speech Therapy at [place] [address] Debra Franco, STEEL DETAILER 11/03/2023 2:00 PM EDT Office Visit Speech Therapy at [place] [phone] Debra Franco, STEEL DETAILER 11/08/2023 2:30 PM EDT Appointment MRI at [address] Navjot Grider MD [facility] [place] [address] 11/09/2023 1:45 PM EDT Office Visit Hematology and Oncology at [place] [address] Isabell Jacob MD [facility] [place] [address] 11/11/2023 10:30 AM EDT Office Visit Radiation Oncology at [place] [address] Nicki Sharpe MD [facility] [place] [address] 11/15/2023 10:00 AM EDT Office Visit Speech Therapy at [place] [phone] Debra Franco, STEEL DETAILER 11/16/2023 9:00 AM EDT Office Visit Hematology and Oncology at [place] [phone] Bisi Nam 11/22/2023 10:00 AM EDT Office [place] [address] Debra Franco SLP 11/30/2023 9:00 AM EDT Office Visit [place]ology [place] [address] Bisi Nam 12/14/2023 9:00 AM EDT Office Visit [place]ology [place] [address] Bisi Nam 12/28/2023 9:00 AM EDT Office Visit [place] [address] Bisi Nam documented as of this encounter Goals Goal Patient Goal Type Associated Problems Recent Progress Patient-Stated? Author Patient's specific desired goal: Patient Facing Action Plan Andrei Lee, [facility] Note: Goal(s): maintain quality of life as much as possible Measured by: quality of life scale, ability to participate in activities which he enjoys and needs to do Time-frame: to be assessed at approximately the one year point by pharmacy, or sooner if patient asks to discuss documented as of this encounter Procedures Procedure Name Priority Date/Time Associated Diagnosis Comments HEMOGRAM Routine 09/06/2023 10:32 AM EDT Glioblastoma of temporal lobe 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 use DIFFERENTIAL, AUTOMATED Routine 09/06/2023 10:32 AM EDT Glioblastoma of temporal lobe 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 use CBC (WITH DIFF) Routine 09/06/2023 10:32 AM EDT Glioblastoma of temporal lobe 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 use COMPREHENSIVE METABOLIC PANEL Routine 09/06/2023 10:32 AM EDT Glioblastoma of temporal lobe documented in this encounter Results * (ABNORMAL) Differential, Automated (09/06/2023 10:32 AM EDT) Neutrophil % 74.0 % [facility] Neutrophil Absolute 6.89(H) 1.70 - 6.10 x10(3)/[facility] Lymph % 14.6 % [facility] Lymphocytes Abs 1.4 0.9 - 3.2 x10(3)/[facility] Monocyte % 9.4 % [facility] Monocyte Abs 0.9 0.3 - 0.9 x10(3)/[facility] Eos % 0.4 % [facility] Eosinophils Abs 0.0 0.0 - 0.4 x10(3)/[facility] Basophil % 0.5 % [facility] Baso Absolute 0.0 0.0 - 0.1 x10(3)/[facility] Immature Gran % 1.10 % [facility] Comment: Immature granulocytes(IG's)percentage and absolute count will include metamyelocytes, myelocytes, and promyelocytes. Blood smears from CBCs yielding IG's will be scanned manually for concordance. If this scan disagrees with the automated IG or if promyelocytes are noted, a manual differential will be performed. Immature Gran Absolute 0.10(H) 0.00 - 0.04 x10(3)/[facility] Blood 09/06/2023 10:3 2 AM EDT 09/06/2023 10:52 AM EDT Narrative Resulting Agency Comment Spec In Lab Belinda ARRINGTON HEMATOLOGY ORDERABLE S [facility] [place] [address] * (ABNORMAL) Hemogram (09/06/2023 10:32 AM EDT) White Blood Cell 9.3 4.0 - 9.5 x10(3)/[facility] Red Blood Cell 3.85(L) 4.58 - 5.54 x10(6)/[facility] Hemoglobin 10.6(L) 13.7 - 16.5 g/dL [facility] Hematocrit 32.8(L) 40.5 - 48.5 % [facility] Mean Cell Volume 85.2 82.9 - 93.1 fL [facility] Mean Cell Hemoglobin 27.5 27.5 - 32.1 pg [facility] Mean Cell Hemoglobin Concentration 32.3 32.0 - 35.7 g/dL [facility] Platelet 544(H) 145 - 357 x10(3)/mc L [facility] RDW Standard Deviation 46.8(H) 36.0 - 45.0 fL [facility] RDW coefficient of variation 15.2(H) 11.4 - 13.8 % [facility] Mean Platelet Volume 9.0 7.6 - 12.9 [facility] NRBC% auto 0.0 % [facility] NRBC Absolute 0.000 0.000 - 0.000 x10(3)/mc L [facility] Blood 09/06/2023 10:3 2 AM EDT 09/06/2023 10:52 AM EDT Narrative Resulting Agency Comment Spec In Lab Belinda ARRINGTON HEMATOLOGY ORDERABLE S [facility] [place] [address] * (ABNORMAL) Comprehensive metabolic panel (non-fasting) (09/06/2023 10:32 AM EDT) Glucose 107 65 - 199 mg/dL [facility] Comment:Diabetes: >=200 mg/d L plus symptoms Blood Urea Nitrogen 20 10 - 20 mg/dL [facility] Creatinine 1.29 0.80 - 1.50 mg/dL [facility] Sodium 140 135 - 145 mmol/L [facility] Potassium 5.0 3.5 - 5.0 mmol/L [facility] Comment: Please note: ??Patients with WBC >100,000 may have falsely elevated Potassium levels. ??For accurate Potassium quantification in these patients send serum separator tube (gold top) for subsequent determinations. ??Contact the Clinical Chemistry Laboratory if there are any questions. Chloride 104 98 - 107 mmol/L [facility] Carbon Dioxide 26 22 - 31 mmol/L [facility] Anion Gap 10 5 - 15 mmol/L [facility] Calcium 10.3 8.5 - 10.5 mg/dL [facility] Protein, Total 6.6 6.1 - 8.0 g/dL [facility] Albumin 3.7 3.2 - 5.2 g/dL [facility] Aspartate Aminotransferase 26 0 - 39 unit/L [facility] Alanine Aminotransferase 28 0 - 55 unit/L [facility] Alkaline Phosphatase 69 40 - 130 unit/L [facility] Bilirubin, Total <0.2(L) 0.2 - 1.3 mg/dL [facility] Est Glomerular Filtration Rate 56(L) >=60 mL/min/1. 73 m?? [facility] Comment: This patient's estimated GFR [...] and symptoms in addition to eGFR. 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
--- OUTSIDE RECORDS SUMMARY | 2023-10-17 15:06 | XMS_ITS | Encounter Summary ---
Author Organization [facility] [place] [address] Care Team Providers Care City Route Driver Name Role Phone Molina Herr MD Primary Care Provider [phone] Encounter Details Date Type Department Care Team (Latest Contact Info) Description 08/31/2023 Travel Social History Tobacco Use Types Packs/Day [...] from your doctor or pharmacy? Sometimes 08/22/2023 [facility] Utilities Answer Date Recorded In the past 12 months has [facility] [employer], gas, oil, or water [employer] threatened to shut off services in your [...] time in the past 12 m [facility], were you homeless or living in a long-term (including now)? No 08/22/2023 IPV Inpatient Questions [...] AM EDT Office [place] [address] Elly Alston MD [facility] DR HOSPICE [place] [address] 10/27/2023 1:00 PM EDT Office [place] [address] Debra Franco, GROUTMAN 11/03/2023 2:00 PM EDT Office [place] [address] Debra Franco, GROUTMAN 11/08/2023 2:30 PM EDT Appointment MRI at [place] [address] Navjot Grider MD [facility] DR [place]ATOLOG[place] [address] 11/09/2023 1:45 PM EDT Office Visit Hematology and Oncology at [address] Isabell Jacob MD [facility] [place] [address] 11/11/2023 10:30 AM EDT Office Visit Radiation Oncology at [address] Nicki Sharpe MD [facility] [place] [address] 11/15/2023 10:00 AM EDT Office [place] [address] Debra Franco, ROLANDO 11/16/2023 9:00 AM EDT Office Visit Hematology [place] [address] Bisi Nam 11/22/2023 10:00 AM EDT Office [place] [address] Debra Franco, ROLANDO 11/30/2023 9:00 AM EDT Office Visit Hematology [place] [address] Bisi Nam 12/14/2023 9:00 AM EDT Office Visit [place] [address] Bisi Nam 12/28/2023 9:00 AM EDT Office Visit [place] [address] Bisi Nam documented as of this encounter Goals Goal Patient Goal Type Associated Problems Recent Progress Patient-Stated? Author Patient's specific desired goal: Patient Facing Action Plan Andrei Lee, [facility] Note: Goal(s): maintain quality of life as much as possible Measured by: quality of life scale, ability to participate in activities which he enjoys and needs to do Time-frame: to be assessed at approximately the one year point by pharmacy, or sooner if patient asks to discuss documented as of this encounter Visit Diagnoses Not on filedocumented in this encounter Care Teams City Route Driver Relationship Specialty Start Date End Date Molina Herr MD [facility] [address] [place] [address] PCP - General 01/27/10 documented as of this encounter
--- OUTSIDE RECORDS SUMMARY | 2023-10-17 15:06 | XMS_ITS | Encounter Summary ---
Author Organization [facility] [place] [address] Care Team Providers Care Life Science Teacher Name Role Phone Molina Herr MD Primary Care Provider [phone] Reason for Visit * Reason Comments Visual Field Defect * Consultation (Urgent) - Closed Specialty Diagnoses / Procedures Referred By Flo viveros Referred To Contact Ophthalmology Diagnoses Brain tumor Nicki Sharpe MD [facility] [place] [address] Yudith Jain MD [facility] [address] Referral ID Status Reason Start Date Expiration Date V isits Requested Visits Authorized [id number] Closed Consult, Test & Treat 08/12/2023 08/11/2024 1 1 Encounter Details Date Type Department Care Team (Late st Contact Info) Description 09/07/2023 2:00 PM EDT [place] [address] Yudith Jain MD [facility] [place] [address] 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); Right homonymous hemianopsia; Age-related nuclear cataract, unspecified laterality Social History Tobacco Use Types Packs/Day Years [...] from your doctor or pharmacy? Sometimes 08/22/2023 [facility] Utilities Answer Date Recorded In the past [...] any time in the past 12 m [facility], were you homeless or living in a group home (including now)? No 08/22/2023 DH IPV [...] as of this encounter Progress Notes * Yudith Jain MD - 09/07/2023 2:00 PM EDT Neuro-ophthalmology Consultation Visual Acuity Visual Acuity (Snellen - Linear) Right Left Dist cc 20/25 -1 20/40 +1 Dist ph cc NI Near cc 20/25 20/25 Correction: Glasses Tonometry Tonometry (Applanation, 2:26 PM) Right Left Pressure 20 18 1. 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) 2. Right homonymous hemianopsia 3. Age-related nuclear cataract, unspecified laterality Perfecto Polk is a 82 y.o. male referred by Nicki Sharpe On examination today, Perfecto Polk exhibited normal visual function, color vision, with no evidence of a relative afferent pupillary defect that would suggest an underlying optic nerve dysfunction. The intraocular pressures were normal in each eye. Static visual pretty revealed a superior right homonymous hemianopsia. Sensorimotor examination revealed full extraocular movements in each eye. Perfecto Polk was orthophoric in all directions of gaze. Dilated eye examination revealed normal anterior segment structures. The optic nerves are healthy and pink. There was mild mottling in the left eye consistent with drusen. The OCT revealed normal RNFL of both optic nerves 85 right eye 87 left eye. 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 These have been associated with temporal lobe GBMs. His hallucinations have been getting better on dexamethazone. - MRI brain 08/19/23 showed Evolution of postsurgical changes. Some enhancement at the deep margin of the resection cavity (temporal lobe) corresponds to diffusion restriction on the prior study. No new or expanding mass. - reassuringly his visual field cut is superior and should not be interfering with his reading ability. We will reassess in 9 months for any interval change. 2) Nuclear sclerotic cataracts, bilaterally - borderline visually significant at this time - unable to be corrected to 20/20 due to cataracts, but an updated Rx will improve his vision by a few lines - He will see his local paralegal specialist for an updated refraction. 3) Mild Age-related macular degeneration, left eye - no subretinal fluid noted on OCT - yearly DFE recommended RTC 9 months, HVF, neuro day documented in this encounter Plan of Treatment Upcoming Encounters Date Type Department Care Team (Late st Contact Info) Description 10/27/2023 11:15 AM EDT Office Visit Palliative Medicine at [address] Elly Alston MD [facility] HOSPICE AND [place] [address] 10/27/2023 1:00 PM EDT Office Visit Speech Therapy at [place] [address] Debra Franco, WRESTLING COACH 11/03/2023 2:00 PM EDT [place] [address] Debra Franco, WRESTLING COACH 11/08/2023 2:30 PM EDT Appointment MRI at [address] Navjot Grider MD [facility] DR [place] [address] 11/09/2023 1:45 PM EDT Office Visit Hematology and Oncology at [address] Isabell Jacob MD [facility] [place] [address] 11/11/2023 10:30 AM EDT Office Visit Radiation Oncology at [address] Nicki Sharpe MD [facility] [place] [address] 11/15/2023 10:00 AM EDT Office [place] [address] Debra Franco, WRESTLING COACH 11/16/2023 9:00 AM EDT Office Visit H[place]ology [place] [address] Bisi Nam 11/22/2023 10:00 AM EDT Office [place] [address] Debra Franco, WRESTLING COACH 11/30/2023 9:00 AM EDT Office Visit Hematology [place] [address] Bisi Nam 12/14/2023 9:00 AM EDT Office Visit [place] [address] Bisi Nam 12/28/2023 9:00 AM EDT Office Visit [place] [address] Bisi Nam documented as of this encounter Goals Goal Patient Goal Type Associated Problems Recent Progress Patient-Stated? Author Patient's specific desired goal: Patient Facing Action Plan Andrei Lee, [facility] Note: [...] Procedure Name Priority Date/Time Associated Diagnosis Comments FUNDUS PHOTOS - OU- BOTH EYES Routine 09/12/2023 1:33 PM EDT 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) AUTOMATED VISUAL FIELD - EXTENDED - OU- BOTH EYES Routine 09/12/2023 1:33 PM EDT Right homonymous hemianopsia OCT OPTIC NERVE - OU - BOTH EYES Routine 09/12/2023 1:32 PM EDT 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) documented in this encounter Results * Fundus Photos - OU - Both [...] good. Left Eye Quality was good. Notes [place] Spectralis OCT OD: ??Average RNFL: 85, classification = wnl OS: ??Average RNFL: 87, classification = wnl Implication: No thinning or swelling OU. Yudith Jain MD OPHTHALMOLOGY SE RVICES ORDERABLES documented in this encounter Visit Diagnoses Diagnosis 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) Macular degeneration (senile) of retina, unspecified Right homonymous hemianopsia Homonymous bilateral field defects in visual field Age-related nuclear cataract, unspecified laterality documented in this encounter Care Teams Life Science Teacher Relationship Specialty Start Date End Date Molina Herr MD [facility] [address] [place] [address] PCP - General 01/27/10 documented as of this encounter
--- OUTSIDE RECORDS SUMMARY | 2023-10-17 15:06 | XMS_ITS | Encounter Summary ---
[place] [address] Care Team Providers Care Barrel Scraper Name Role Phone Molina Herr MD Primary Care Provider [phone] Encounter Details Date Type Department Care Team (Late st Contact Info) Description 09/05/2023 Specialty [place] [id number] Debbi Campos, OUTSOLE CEMENTER MACHINE Social History Tobacco Use Types Packs/Day Years [...] time in the past 12 m [facility], were you homeless or living in a [...] as of this encounter Progress Notes * Debbi Campos CPHT - 09/05/2023 11:59 PM EDT The [facility] has completed a benefits investigation for Perfecto Polk to review their eligibility to fill at [facility]. Per patient's medication list they are prescribed Temozolomide and the medication is currently filled through the [facility] The patient is currently filling the medication through Specialty Pharmacy with a $0 copay. No PA required documented in this encounter Plan of Treatment Upcoming Encounters Date Type Department Care Team (Late st Contact Info) Description 10/27/2023 11:15 AM EDT Office Visit Palliative Medicine at [place] [address] Elly Alston MD [facility] [address] HOSPICE [place] [address] 10/27/2023 1:00 PM EDT Office Visit Speech Therapy at [place] [address] Debra Franco, COIL WINDER 11/03/2023 2:00 PM EDT Office Visit Speech Therapy at [place] [address] Debra Franco, COIL WINDER 11/08/2023 2:30 PM EDT Appointment MRI at [place] [address] Navjot Grider MD [facility] [address] [place] [address] 11/09/2023 1:45 PM EDT Office Visit Hematology and Oncology at [place] [address] Isabell Jacob MD [facility] [place] [address] 11/11/2023 10:30 AM EDT Office Visit Radiation Oncology at [place] [address] Nicki Sharpe MD [facility] [place] [address] 11/15/2023 10:00 AM EDT Office Visit Speech Therapy at [place] [phone] Debra Franco, COIL WINDER 11/16/2023 9:00 AM EDT Office Visit Hematology and Oncology at [place] [phone] Bisi Nam 11/22/2023 10:00 AM EDT Office [place] [address] Debra Franco SLP 11/30/2023 9:00 AM EDT Office Visit Hematology [place] [address] Bisi Nam 12/14/2023 9:00 AM EDT Office Visit Hematology [place] [address] Bisi Nam 12/28/2023 9:00 AM EDT Office Visit Hematology [place] [address] Bisi aNm documented as of this encounter Goals Goal [...] on filedocumented in this encounter Care Teams Barrel Scraper Relationship Specialty Start Date End Date Molina Herr MD [facility] [address] [place] [address] PCP - General 01/27/10 documented as of this encounter
--- OUTSIDE RECORDS SUMMARY | 2023-10-17 15:06 | XMS_ITS | Encounter Summary ---
Author Organization [facility] Address [facility] [place] [address] Care Team Providers Care Welding Machine Operator Resistance Name Role Phone Molina Herr MD Primary Care Provider [phone] Encounter Details Date Type Department Care Team (Late st Contact Info) Description 08/30/2023 Orders Only Hematology [place] [address] Belinda Peña PA [facility] [place] [address] Glioblastoma of temporal lobe (Primary Dx); High [...] AM EDT Office [place] [address] Elly Alston MD [facility] HOSPICE [place] [address] 10/27/2023 1:00 PM EDT Office Visit Speech Therapy at [place] [phone] Debra Franco, CRIPPLE WORKER 11/03/2023 2:00 PM EDT Office Visit Speech Therapy at [address] Debra Franco, CRIPPLE WORKER 11/08/2023 2:30 PM EDT Appointment MRI at [place] [address] Navjot Grider MD [facility] [address] HEMATOLOGY [place] [address] 11/09/2023 1:45 PM EDT Office Visit Hematology and Oncology at [place] [address] Isabell Jacob MD [facility] [place] [place] [address] 11/11/2023 10:30 AM EDT Office Visit Radiation Oncology at [place] [address] Nicki Sharpe MD [facility] [place] [address] 11/15/2023 10:00 AM EDT Office Visit Speech Therapy at [place] [phone] Debra Franco, CRIPPLE WORKER 11/16/2023 9:00 AM EDT Office Visit Hematology and Oncology at [place] [phone] Bisi Nam 11/22/2023 10:00 AM EDT Office Visit Speech Therapy at [place] [phone] Debra Franco, CRIPPLE WORKER 11/30/2023 9:00 AM EDT Office Visit Hematology [place] [address] CyrilJenny lawBiis W 12/14/2023 9:00 AM EDT Office Visit [place]ology [place] [address] CyrilJenny lawBisi W 12/28/2023 9:00 AM EDT Office Visit [place] [address] Bisi Nam Scheduled Orders Name Type Priority Associated Diagnoses Orde r Schedule CBC (with Diff) Lab Routine Glioblastoma of temporal lobe 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 use Once a week for 12 Occurrences starting 08/30/2023 until 08/29/2024, 6 completed documented as of this encounter Goals Goal Patient Goal Type Associated Problems Recent Progress Patient-Stated? Author Patient's specific desired goal: Patient Facing Action Plan Andrei Lee, [facility] Note: Goal(s): maintain quality of life as [...] 9.50 x10(3)/mc L 10/13/2023 8:52 AM EDT [facility] Red Blood Cell 3.92(L) 4.58 - 5.54 x10(6)/mc L 10/13/2023 8:52 AM EDT [facility] Hemoglobin 11.1(L) 13.7 - 16.5 g/dL 10/13/2023 8:52 AM EDT [facility] Hematocrit 34.9(L) 40.5 - 48.5 % 10/13/2023 8:52 AM EDT [facility] Mean Cell Volume 89.0 82.9 - 93.1 fL 10/13/2023 8:52 AM [facility] Mean Cell Hemoglobin 28.3 27.5 - 32.1 pg 10/13/2023 8:52 AM [facility] Mean Cell Hemoglobin Concentration 31.8(L) 32.0 - 35.7 g/dL 10/13/2023 8:52 AM [facility] Platelet 41(L) 145 - 357 x10(3)/mc L 10/13/2023 8:52 AM [facility] Mean Platelet Volume 9.8 7.6 - 12.9 fL 10/13/2023 8:52 AM [facility] RDW Standard Deviation 56.1(H) 36.0 - 45.0 fL 10/13/2023 8:52 AM [facility] RDW coefficient of variation 17.6(H) 11.4 - 13.8 % 10/13/2023 8:52 AM [facility] NRBC% auto 0.0 % 10/13/2023 8:52 AM [facility] NRBC Absolute 0.00 0.00 - 0.00 x10(3)/mc L 10/13/2023 8:52 AM [facility] Neutrophil % 68.2 % 10/13/2023 8:52 AM [facility] Neutrophil Absolute 2.25 1.70 - 6.10 x10(3)/mc L 10/13/2023 8:52 AM [facility] Lymph % 20.6 % 10/13/2023 8:52 AM [facility] Lymph Absolute 0.68(L) 0.90 - 3.20 x10(3)/mc L 10/13/2023 8:52 AM [facility] Monocyte % 5.8 % 10/13/2023 8:52 AM [facility] Monocyte Absolute 0.19(L) 0.30 - 0.90 x10(3)/mc L 10/13/2023 8:52 AM EDT [facility] Eos % 4.8 % 10/13/2023 8:52 AM EDT [facility] Eos Absolute 0.16 0.00 - 0.40 x10(3)/mc L 10/13/2023 8:52 AM EDT [facility] Basophil % 0.3 % 10/13/2023 8:52 AM EDT [facility] Baso Absolute 0.01 0.00 - 0.10 x10(3)/mc L 10/13/2023 8:52 AM EDT [facility] Immature Gran % 0.3 % 8:52 AM EDT [facility] Immature Gran Absolute 0.01 0.00 - 0.04 x10(3)/mc L 10/13/2023 8:52 AM EDT [facility] Blood VENOUS BLOOD SPECIMEN / Unknown Venipuncture / Unknown 10/13/2023 8:37 AM EDT 10/13/2023 8:37 AM EDT Navjot Grider MD HEMATOLOGY ORDERABLE S Performing Organization Address City/State/[facility] Co de Phone Number [facility] [place] [address] documented in this encounter Visit Diagnoses Diagnosis Glioblastoma of temporal lobe- Primary Malignant neoplasm of temporal lobe of brain 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 use Encounter for long-term (current) use of other medications documented in this encounter Care Teams Welding Machine Operator Resistance Relationship Specialty Start Date End Date Molina Herr MD [facility] [address] [place] [address] PCP - General 01/27/10 documented as of this encounter
--- OUTSIDE RECORDS SUMMARY | 2023-10-17 15:06 | XMS_ITS | Encounter Summary ---
Author Organization [facility] Address [facility] [place] [address] Care Team Providers Care Wood Carving Lathe Operator Name Role Phone Molina Herr MD Primary Care Provider [phone] Reason for Visit * Reason Comments Follow-up Encounter Details Date Type Department Care Team (Late st Contact Info) Description 09/05/2023 1:00 PM EDT Office Visit [place]ematology [place] [id number] Navjot Grider MD [facility] [place] [address] Glioblastoma of temporal lobe Social History Tobacco [...] any time in the past 12 m [facility], were you homeless or living in a nursing home (including now)? No 08/22/2023 DH IPV [...] Sign Reading Time Taken Comments Blood Pressure 114/76 09/05/2023 1:05 PM EDT Pulse 81 09/05/2023 1:05 PM EDT Temperature 36.4 ??C (97.5 ??F) 09/05/2023 1:05 PM ED T Respiratory Rate 17 09/05/2023 1:05 PM EDT Oxygen Saturation 95% 09/05/2023 1:05 PM EDT Inhaled Oxygen Concentration - - Weight 80.8 kg (178 lb 2.1 oz) 09/05/2023 1:05 P M EDT Height 172.7 cm (5' 7.99) 09/05/2023 1:05 PM ED T Body Mass Index 27.09 09/05/2023 1:05 PM EDT documented in this encounter Patient Instructions * Patient Instructions* Navjot Grider MD - 09/05/2023 1:00 PM EDT Continue current chemoradiation treatment with Temozolamide. We will plan for 6 weeks. I sent refill of chemotherapy Temozolamide for 21 more days Minimize Antinausea medicine Zofran to minimize constipation; use anti-nausea medicine as needed only Do not take Ibuprofen Continue Dexamethasone 4 mg daily Continue Keppra 500 mg twice a day Follow up with Neuro-ophthalmology Dr Jain Please call or come to ER if you develop any focal neurological symptoms especially arm or leg weakness, balance/ambulatory dysfunctions, headache nausea vomiting, seizures or leg swelling or shortness of breath etc. 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 male with history of [...] gets worseas the day progresses. Visit date 09/05/23 Interval events: Today he c/o visual hallucinations which he describes as shadows and also text writing itself. He has a halluncination ~50x/day that lasts seconds. He c/o continued word-searching and some difficulty reading and understanding words that gets worse at the end of the day. He was restarted on decadron by Dr. Sharpe on 09/02/23 in the hopes of improving hallucinations which he believes has beenhelpful although now his sleep is disrupted as he is sleeping in 1/2-1hr periods of time. He says he wakes 5-6 times per night. He denies mcgill, nausea, vomiting or weakness. Is requesting to be allowed to drive again. Performance status: Karnofsky Performance Status (KPS) 100% [...] 19.6) performed by Ernie Fuchs MD at [facility] MAIN OR PRO COLONOSCOPY, BIOPSY 01/10/2013 COLONOSCOPY FLEXIBLE, WITH BX performed by Dominick Earl MD at [facility] ENDOSCOPY PRO COLONOSCOPY, REMV LESN, SNARE N/A 01/12/2018 COLONOSCOPY, POLYPECTOMY, REMOVAL LESION BY SNARE (WRVU 4.67) performed by Guerda Coombs MD at [facility] ENDOSCOPY PRO COLONOSCOPY, REMV LESN, SNARE N/A 01/20/2023 COLONOSCOPY, POLYPECTOMY, REMOVAL LESION BY SNARE (WRVU 4.57) performed by Guerda Coombs MD at [facility] ENDOSCOPY PRO EXCIS SUPRATENT BRAIN TUMOR Left 08/04/2023 @CRANI, FOR TUMOR, SUPRATENTORIAL, NOT MENINGIOMA (WRVU 30.83) performed by Rolly Dunlap MD at [facility] MAIN OR [facility] LAP, APPENDECTOMY N/A 03/09/2017 LAPAROSCOPIC APPENDECTOMY (WRVU 9.45) performed by Saurav Chen MD at [facility] OR [facility] MICROSURG TECHNIQUES, REQ OPER MICROSCOPE N/A 08/04/2023 MICROSCOPE USE (WRVU 3.46) performed by Rolly Dulnap MD at [facility] OR [facility] STEREOTACTIC CPTR ASSTD PX CRANIAL, INTRADURAL N/A 08/04/2023 STEREOTACTIC COMPUTER-ASSTD NAVIGATIONAL CRANIAL INTRADURAL (WRVU 3.75) performed by Rolly Dunlap MD at [facility] OR PRO UPPER GI ENDOSCOPY, DIAGNOSTIC N/A 06/11/2021 EGD, UPPER GI ENDOSCOPY performed by Guerda Coombs MD at [facility] ENDOSCOPY MEDS: acetaminophen, aspirin EC, atorvastatin, dexAMETHasone, fluconazole, levETIRAcetam, levothyroxine, hlngavxhdcdlw-HZ-aotq, omeprazole, ondansetron, pantoprazole EC, polyethylene glycoL, senna-docusate, temozolomide, and ubiquinone ALLERGY: Allergies Allergen Reactions Penicillins Hives PAT Penicillin Allergy Risk Assessment 06/13/2023: Low risk penicillin allergy. OK to receive full dose of cefazolin, cefuroxime, or any 3rd or 4th+ generation cephalosporin. FAMILY HX: Family History Problem Relation Age of Onset Cancer Brother SOCIAL HX: ETOH: Social Smoking: none Social [...] Social History Narrative Maldonado grew up in [place], currently lives in [facility] with his significant other June of 13 years.He has a daughter Joan who lives in [place]. His son in 2021; Maldonado is close to his grandson wholives in [place]. 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 Enjoys photography - wants to share his files with his daughter and grandson. Camp up in [facility] on a herring, enjoys sailing with Anali. Loves his Shonda, not able to drive it right now but wants to again! June worked as an link trainer, dental instructor, and movement therapist. Social Determinants of [...] 24 hrs: Temp Pulse Resp BP SpO2 09/05/23 1305 36.4 ??C (97.5 ??F) 81 17 114/76 95 % Physical Examination General : Alert & oriented x 4, no acute distress HEENT : NC, crani site healed nicely, sclera clear, oropharynx moist and without lesions, trachea midline Respiratory : No acute distress. No audible wheezing, on RA, speaking in full sentences Cardiovascular : Regular rate, extremities warm and dry Musculoskeletal : Moves all extremities well Extremities : No pitting edema, no calf tenderness, no erythema Dermatological : No visible rashes or bruising Neurological Alert & oriented x 4. Attention and concentration intact. Speech clear, language with some word-searching and minor paraphasic error in casual conversation. Able to name objects and read simple text. PERRL, EOMi, gaze conjugate throughout, R upper quadranopia Face activates symmetrically Motor : 5 out of 5 bilateral upper and lower extremities Sensory : Light touch intact throughout No difficult with FNF testing Gait : Normal no significant ambulatory dysfunction LABS: Last wbc, hgb, hct plt No results for input(s): WBC, HGB, HCT in the last 72 hours. Invalid input(s): PLT Last 3 LFTs Recent Labs 08/25/23 1007 07/25/23 1623 06/10/23 1252 AST 15 17 21 ALT 15 15 16 ALKPHOS 65 74 64 BILITOT 0.4 0.3 0.4 Surgical path report: DISCUSSION Hematoxylin and [...] B1 GFAP Highlight reactive brain parenchyma B1,B9 [id number] Negative B1 ATRX Retained B1 p53 approximately [...] developed and its performance characteristics determined by [facility] in a manner consistent with CLIA requirements. This test has not been cleared or approved by the U.S. Food and Drug Administration. Additional Information SEE COMMENTS REFERENCES 1. N Engl J Med 2005;352(10):997-1003 (PMID: 45288209) 2. Wendi Rev Neurol 2010;6:39-51 (PMID: [id number]) 3. Lancet Oncol. 2012; 13:707-715 (PMID: [id number]) 4. Lancet Oncol. 2012; 13: 916-926 (PMID: [id number]) 5. Wendi Rev Neurol 2014;10:372-385 (PMID: [id number]) Specimen Tissue, Tumor Tissue ID [id number] Released by Kari Mares M.D., Ph.D. IMAGING [...] glioblastoma, WHO Grade 4, IDH Wild type, MGMT promoter methylation absent Presenting as difficulty with language and performing simple tasks (reading, working cell phone). In further conversation, patient believe this started late winter, prior to knee surgery.. Gross resection on 08/04/23, Currently with VF quadranopia, subtle language difficulties in casual conversation and worsening hearing on the left. Started radiation on 08/30/23 for 30 visits, 60Gy and on TMZ, 145mg nightly x 6 wks on 08/30/23 currently without adverse effects. #2. Vasogenic edema - secondary to above. Will continue Keppra due to area being highly eleptogenic. Discussed that theswelling takes 4-6wks to go down but radiation will likely irritate brain tissue as well. #3. 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 Restarted on dexamethasone on 09/01 by radiation oncology. Patient believes this is helping but is disrupting his sleep Recommendation: Continue temozolamide 145mg nightly and radiation, started on 08/30/23 x 6weeks. Discussed side effects of this med. Will keep prescription for zofran and senna for potential nausea and constipation but patient was instructed to take only as needed.. Continue Keppra as prescribed, ok to go back to asa 81mg, continue protonix due to steroid use, patient was instructed to avoid ibuprofen, tylenol ok Rx for temodar sent to pharmacy Continue weekly CBC and biweekly CMP x 4 wks. Plan to obtain MRI brain every 2 mths Follow up in person as scheduled Patient and partner encouraged to contact office [...] counseling andcoordination of care MURPHY [place] * Malgorzata Reynoso RN - 09/05/2023 1:00 PM EDT Oral Chemotherapy Rx Refill Note (No Rx Change) 09/06/2023 Perfecto Polk, 1940 Prescription for oral chemotherapy temodar was written by provider without any changes and e-prescribed to pharmacy to be filled. * Navjot Grider MD - 09/05/2023 1:00 PM EDT Patient was evaluated dated 09/05/23 with MOMO Peña. Patient was personally examined evaluated, treatment options and plans were discussed. I agree with MOMO note entirety except documented below Assessment/plan Impression #1. Left temporal Glioblastoma, WHO grade 4, IDH wild type, Molecular results Pendng Presenting symtoms : He had a scheduled [...] temporo contrast-enhancing mass by Dr Dunlap [place] [facility] and post-operative MRI brain dated 08/05/23 suggestive small residual contrast enhancing nodule in the left mesial temporal lobe. Reviewed final pathology report ; suggestive Left Temporal Glioblastoma, WHO grade 4, IDH negative.Ki-67 index 40%. Molecular results especially MGMT results are pending. Currently he is on concurrent chemoradiation treatment. Date of start 08/30/23 and tolerating well. 09/05/23 Clinically he reports he is doing well. There is significant interval improvement in his aphasia. He was able to name words, comprehension good except mild hard of hearing especially left ear, fluctuations in visual hallucination and able to engage in his care as well. No focal neurological deficits neurological examination unremarkable except right upper superior quadrant visual deficit. KPS 80-90. Based on labs dated 09/06/23 Platelet count is elevated, we will monitor. RECOMMENDATIONS Continue concurrent chemoradiation treatment with Temodar followed by adjuvant chemotherapy TemodarX 6 months and indefinite Optune Continue Temodar dose 145 mg.Start date 08/30/23. Recommend weekly CBC with differential and CMP every other week while on concurrent chemoradiation treatment. Lab orders placed Follow molecular test results especially MGMT. Continue Keppra 500 mg BID Go to [employer] website and read about [employer] TO MAKE DECISION FOR SAME Monitor platelet count Follow up in 2 weeks Please call [...] understanding. Time spent in coordinating care, reviewing data, discussing treatment options, formulating treatment plan and education is excess of 45 minutes documented in this encounter Plan of Treatment Upcoming Encounters Date Type Department Care Team (Late st Contact Info) Description 10/27/2023 11:15 AM EDT Office Visit Palliative Medicine at [place] [address] Elly Alston MD [facility] [address] HOSPICE [place] [address] 10/27/2023 1:00 PM EDT Office Visit Speech Therapy at [place] [address] Debra Franco, TECHNOLOGY SERVICES MANAGER 11/03/2023 2:00 PM EDT Office Visit Speech Therapy at [place] [address] Debra Franco, TECHNOLOGY SERVICES MANAGER 11/08/2023 2:30 PM EDT Appointment MRI at [place] [address] Navjot Grider MD [facility] [address] [place] [address] 11/09/2023 1:45 PM EDT Office Visit Hematology and Oncology at [place] [address] Isabell Jacob MD [facility] [place] [address] 11/11/2023 10:30 AM EDT Office Visit Radiation Oncology at [place] [address] Nicki Sharpe MD [facility] [place] [address] 11/15/2023 10:00 AM EDT Office Visit Speech Therapy at [place] [phone] Debra Franco TECHNOLOGY SERVICES MANAGER 11/16/2023 9:00 AM EDT Office Visit [place]ology [place] [address] Bisi Nam 11/22/2023 10:00 AM EDT Office [place] [address] Debra Franco TECHNOLOGY SERVICES MANAGER 11/30/2023 9:00 AM EDT Office Visit [place]ology [place] [address] Bisi Nam 12/14/2023 9:00 AM EDT Office Visit [place]ology [place] [address] Bisi Nam 12/28/2023 9:00 AM EDT Office Visit [place]ology [place] [address] Bisi Nam documented as of this encounter [...] documented as of this encounter Results * Comprehensive metabolic panel (non-fasting) (10/07/2023 9:40 AM EDT) [facility] Signature Glucose 102 65 - 199 mg/dL [facility] Comment:Diabetes: >=200 mg/d L plus symptoms Blood Urea Nitrogen 20 10 - 20 mg/dL [facility] Creatinine 1.20 0.80 - 1.50 mg/dL [facility] Sodium 139 135 - 145 mmol/L [facility] Potassium 4.6 3.5 - 5.0 mmol/L [facility] Comment: Please note: ??Patients with WBC >100,000 may have falsely elevated Potassium levels. ??For accurate Potassium quantification in these patients send serum separator tube (gold top) for subsequent determinations. ??Contact the Clinical Chemistry Laboratory if there are any questions. Chloride 104 98 - 107 mmol/L [facility] Carbon Dioxide 27 22 - 31 mmol/L [facility] Anion Gap 8 5 - 15 mmol/L [facility] Calcium 9.7 8.5 - 10.5 mg/dL [facility] Protein, Total 6.7 6.1 - 8.0 g/dL [facility] Albumin 4.0 3.2 - 5.2 g/dL [facility] Aspartate Aminotransferase 21 0 - 39 unit/L [facility] Alanine Aminotransferase 25 0 - 55 unit/L [facility] Alkaline Phosphatase 49 40 - 130 unit/L [facility] Bilirubin, Total 0.5 0.2 - 1.3 mg/dL [facility] Est Glomerular Filtration Rate 61 >=60 mL/min/1. 73 m?? [facility] Comment: This patient's estimated [...] In Lab Navjot Grider MD CHEMISTRY ORDERABLES [facility] [place] [address] * (ABNORMAL) Comprehensive metabolic panel (non-fasting) (09/20/2023 9:41 AM EDT) Glucose 91 65 - 199 mg/dL [facility] Comment:Diabetes: >=200 mg/d L plus symptoms Blood Urea Nitrogen 25(H) 10 - 20 mg/dL [facility] Creatinine 1.32 0.80 - 1.50 mg/dL [facility] Sodium 139 135 - 145 mmol/L [facility] Potassium 4.8 3.5 - 5.0 mmol/L [facility] Comment: Please note: ??Patients with WBC >100,000 may have falsely elevated Potassium levels. ??For accurate Potassium quantification in these patients send serum separator tube (gold top) for subsequent determinations. ??Contact the Clinical Chemistry Laboratory if there are any questions. Chloride 104 98 - 107 mmol/L [facility] Carbon Dioxide 24 22 - 31 mmol/L [facility] Anion Gap 11 5 - 15 mmol/L [facility] Calcium 9.4 8.5 - 10.5 mg/dL [facility] Protein, Total 6.6 6.1 - 8.0 g/dL [facility] Albumin 3.9 3.2 - 5.2 g/dL [facility] Aspartate Aminotransferase 15 0 - 39 unit/L [facility] Alanine Aminotransferase 15 0 - 55 unit/L [facility] Alkaline Phosphatase 58 40 - 130 unit/L [facility] Bilirubin, Total 0.3 0.2 - 1.3 mg/dL [facility] Est Glomerular Filtration Rate 55(L) >=60 mL/min/1. 73 m?? [facility] Comment: This patient's estimated [...] In Lab Navjot Grider MD CHEMISTRY ORDERABLES [facility] [place] [address] * (ABNORMAL) Comprehensive metabolic panel (non-fasting) (09/06/2023 10:32 AM EDT) Glucose 107 65 - 199 mg/dL [facility] Comment:Diabetes: >=200 mg/d L plus symptoms Blood Urea Nitrogen 20 10 - 20 mg/dL [facility] Creatinine 1.29 0.80 - 1.50 mg/dL [facility] Sodium 140 135 - 145 mmol/L [facility] Potassium 5.0 3.5 - 5.0 mmol/L [facility] Comment: Please note: ??Patients with WBC >100,000 may have falsely elevated Potassium levels. ??For accurate Potassium quantification in these patients send serum separator tube (gold top) for subsequent determinations. ??Contact the Clinical Chemistry Laboratory if there are any questions. Chloride 104 98 - 107 mmol/L [facility] Carbon Dioxide 26 22 - 31 mmol/L [facility] Anion Gap 10 5 - 15 mmol/L [facility] Calcium 10.3 8.5 - 10.5 mg/dL [facility] Protein, Total 6.6 6.1 - 8.0 g/dL [facility] Albumin 3.7 3.2 - 5.2 g/dL [facility] Aspartate Aminotransferase 26 0 - 39 unit/L [facility] Alanine Aminotransferase 28 0 - 55 unit/L [facility] Alkaline Phosphatase 69 40 - 130 unit/L [facility] Bilirubin, Total <0.2(L) 0.2 - 1.3 mg/dL [facility] Est Glomerular Filtration Rate 56(L) >=60 mL/min/1. 73 m?? [facility] Comment: This patient's estimated [...] In Lab Navjot Grider MD CHEMISTRY ORDERABLES [facility] [place] [address] documented in this encounter Visit Diagnoses Diagnosis Glioblastoma of temporal lobe Malignant neoplasm of temporal lobe of brain documented in this encounter Care Teams Wood Carving Lathe Operator Relationship Specialty Start Date End Date Molina Herr MD [address] [address] [place] [id number] PCP - General 01/27/10 documented as of this encounter
--- OUTSIDE RECORDS SUMMARY | 2023-10-17 15:06 | XMS_ITS | Encounter Summary ---
Author Organization [facility] [place] [address] Care Team Providers Care Take Away Attendant Name Role Phone Molina Herr MD Primary Care Provider [phone] Encounter Details Date Type Department Care Team (Latest Contact Info) Description 09/15/2023 Travel Social History Tobacco Use Types Packs/Day [...] doctor or pharmacy? Sometimes 08/22/2023 [facility] Utilities Answer Date Recorded In the past 12 months has [facility] [employer], gas, oil, or water [employer] threatened to shut off services in your [...] AM EDT Office [place] [address] Elly Alston MD [facility] [address] HOSPICE [place] [address] 10/27/2023 1:00 PM EDT Office [place] [address] Debra Franco, PHOTOGRAMMETRIC ENGINEER 11/03/2023 2:00 PM EDT Office [place] [address] Debra Franco, PHOTOGRAMMETRIC ENGINEER 11/08/2023 2:30 PM EDT Appointment MRI at [place] [address] Navjot Grider MD [facility] [address] HEMATOLOGY [place] [address] 11/09/2023 1:45 PM EDT Office Visit Hematology and Oncology at [address] Isabell Jacob MD [facility] [place] [address] 11/11/2023 10:30 AM EDT Office Visit Radiation Oncology at [address] Nicki Sharpe MD [facility] [address] RADI[place] [address] 11/15/2023 10:00 AM EDT Office [place] [address] Debra Franco, ROLANDO 11/16/2023 9:00 AM EDT Office Visit Hematology [place] [address] Bisi Nam 11/22/2023 10:00 AM EDT Office [place] [address] Debra Franco, ROLANDO 11/30/2023 9:00 AM EDT Office Visit Hematology [place] [address] Bisi Nam 12/14/2023 9:00 AM EDT Office Visit Hematology [place] [address] Bisi Nam 12/28/2023 9:00 AM EDT Office Visit [place]ematology [place] [address] Bisi Nam documented as of this encounter [...] on filedocumented in this encounter Care Teams Take Away Attendant Relationship Specialty Start Date End Date Molina Herr MD [facility] [address] [place] [address] PCP - General 01/27/10 documented as of this encounter
--- OUTSIDE RECORDS SUMMARY | 2023-10-17 15:06 | XMS_ITS | Encounter Summary ---
[place] [address] Care Team Providers Care Auxiliary Equipment Tender Name Role Phone Molina Herr MD Primary Care Provider [phone] Reason for Referral * Audiology Exam (Routine) - Closed Specialty Diagnoses / Procedures Referred By Flo viveros Referred To Contact Audiology Diagnoses Brain tumor Nicki Sharpe MD [facility] RADIATION [place] [address] [facility] Audiology [address] [place] [phone] Referral ID Status Reason Start Date Expiration Date V isits Requested Visits Authorized [id number] Closed Specialty Service Requested 09/02/2023 09/01/2024 1 1 Reason for Visit * Reason Comments On Treatment Visit Encounter Details Date Type Department Care Team (Late st Contact Info) Description 09/02/2023 10:15 AM EDT Office [place] [phone] Nicki Sharpe MD [facility] RADIATION [place] [address] Brain tumor Social History Tobacco Use Types [...] from your doctor or pharmacy? Sometimes 08/22/2023 [facility] Utilities Answer Date Recorded In the past 12 months has th e [employer], gas, oil, or water [employer] threatened to shut off services in your [...] any time in the past 12 m [facility], were you homeless or living [...] Sign Reading Time Taken Comments Blood Pressure 118/74 09/02/2023 10:38 AM EDT Pulse 73 09/02/2023 10:38 AM EDT Temperature 36.2 ??C (97.1 ??F) 09/02/2023 10:38 AM E DT Respiratory Rate 20 09/02/2023 10:38 AM EDT Oxygen Saturation 96% 09/02/2023 10:38 AM EDT Inhaled Oxygen Concentration - - Weight 79.8 kg (176 lb) 09/02/2023 10:38 AM EDT Height - - Body Mass Index 26.77 08/31/2023 1:43 PM EDT documented in this encounter Progress Notes * Nicki Sharpe MD - 09/02/2023 10:15 AM EDT Images from the original note were not included. [facility] Medicine Radiation Oncology Radiation Oncology On-Treatment [...] Once daily n Treatment progress: Today's Date: 09/02/23 Radiation Therapy Dose: 8Gy, 4 fractions Clinical Trial: no n Clinical course: [...] dysarthria n Assessment: Perfecto Polk is a 82 y.o.M with newly diagnosed glioblastoma s/p GTR. He is receiving 60 Gy in 30 fractions of radiation treatment with concurrent temozolomide. n Follow-up/plan: Continue treatment as planned. 4mg of dexamethasone daily in the morning with breakfast and PPI Referral to audiology placed Instructed on signs and symptoms to watch out for and when to call or go to the ED Encouraged to contact us with any additional questions or concerns Nicki Sharpe MD, PhD [facility] Radiation Oncology National [facility] [place] (NCI) [facility] [employer] College of Surgeons Commission on Cancer (ACS Aldo) Accredited Cancer Program [employer] College of Radiology (ACR) Accredited Radiation Oncology Program documented in this encounter Plan of Treatment Upcoming Encounters Date Type Department Care Team (Late st Contact Info) Description 10/27/2023 11:15 AM EDT Office [place] [phone] Elly Alston MD [facility] DR HOSPICE AND PALLIATIVE [place] [address] 10/27/2023 1:00 PM EDT Office [place] [phone] Debra Franco, PROFESSIONAL SERVICES MANAGER 11/03/2023 2:00 PM EDT Office [place] [address] Debra Franco, PROFESSIONAL SERVICES MANAGER 11/08/2023 2:30 PM EDT Appointment MRI at [address] Navjot Grider MD [facility] DR HEMATOLOGY [place] [address] 11/09/2023 1:45 PM EDT Office Visit Hematology and Oncology at [place] [phone] Isabell Jacob MD [facility] [place] [address] 11/11/2023 10:30 AM EDT Office Visit Radiation Oncology at [place] [phone] Nicki Sharpe MD [facility] DR [place] [address] 11/15/2023 10:00 AM EDT Office [place] [address] Debra Franco, PROFESSIONAL SERVICES MANAGER 11/16/2023 9:00 AM EDT Office Visit Hematology [place] [address] Bisi Nam 11/22/2023 10:00 AM EDT Office [place] [address] Debra Franco, PROFESSIONAL SERVICES MANAGER 11/30/2023 9:00 AM EDT Office Visit Hematology [place] [address] Bisi Nam 12/14/2023 9:00 AM EDT Office Visit [place] [address] Bisi Nam 12/28/2023 9:00 AM EDT Office Visit [place] [address] Bisi Nam Scheduled Referrals Name Type Priority Associated Diagnoses Orde r Schedule Referral to Audiology Outpatient Referral Routine Brain tumor Ordered: 09/02/2023 documented as of this encounter Goals Goal [...] brain documented in this encounter Care Teams Auxiliary Equipment Tender Relationship Specialty Start Date End Date Molina Herr MD [facility] [address] [place] [address] PCP - General 01/27/10 documented as of this encounter
--- OUTSIDE RECORDS SUMMARY | 2023-10-17 15:06 | XMS_ITS | Encounter Summary ---
Author Organization [place] [address] Care Team Providers Care Package Crimper Name Role Phone Molina Herr MD Primary Care Provider [phone] Encounter Details Date Type Department Care Team (Latest Contact Info) Description 09/09/2023 Travel Social History Tobacco Use Types Packs/Day [...] doctor or pharmacy? Sometimes 08/22/2023 [facility] Utilities Answer Date Recorded In the past 12 months has [facility] [employer], gas, oil, or water [employer] threatened to shut off services in your [...] the past 12 m [facility], were you homeless or living in a [...] AM EDT Office [place] [address] Elly Alston MD [facility] DR HOSPICE [place] [address] 10/27/2023 1:00 PM EDT Office [place] [address] Debra Franco, SUPERVISOR PAYROLL 11/03/2023 2:00 PM EDT Office [place] [address] Debra Franco, SUPERVISOR PAYROLL 11/08/2023 2:30 PM EDT Appointment MRI at [place] [address] Navjot Grider MD [facility] [place] [address] 11/09/2023 1:45 PM EDT Office Visit Hematology and Oncology at [address] Isabell Jacob MD [facility] [place] [address] 11/11/2023 10:30 AM EDT Office Visit Radiation Oncology at [address] Nicki Sharpe MD [facility] [place] [address] 11/15/2023 10:00 AM EDT Office [place] [address] Debra Franco, ROLANDO 11/16/2023 9:00 AM EDT Office Visit Hematology [place] [address] Bisi Nam 11/22/2023 10:00 AM EDT Office [place] [address] Debra Franco, ROLANDO 11/30/2023 9:00 AM EDT Office Visit Hematology [place] [address] Bsii Nam 12/14/2023 9:00 AM EDT Office Visit [place]ematology [place] [address] Bisi Nam 12/28/2023 9:00 AM EDT Office Visit [place]ematology [place] [address] Bisi Nam documented as of this encounter [...] on filedocumented in this encounter Care Teams Package Crimper Relationship Specialty Start Date End Date Molina Herr MD [facility] [address] [place] [address] PCP - General 01/27/10 documented as of this encounter
--- OUTSIDE RECORDS SUMMARY | 2023-10-17 15:06 | XMS_ITS | Encounter Summary ---
[place] [address] Care Team Providers Care Teacher Home Therapy Name Role Phone Molina Herr MD Primary Care Provider [phone] Encounter Details Date Type Department Care Team (Late st Contact Info) Description 09/01/2023 [place]phone [place] [phone] Amira Perea Social History Tobacco Use Types [...] doctor or pharmacy? Sometimes 08/22/2023 [facility] Utilities Answer Date Recorded In the [...] were you homeless or living in a detention (including now)? No 08/22/2023 IPV Inpatient Questions [...] AM EDT Office [place] [address] Elly Alston MD [facility] DR HOSPICE AND [place] [address] 10/27/2023 1:00 PM EDT Office [place] [address] Debra Franco, AIR DEODORIZER SERVICER 11/03/2023 2:00 PM EDT Office Visit Speech Therapy at [place] [phone] Debra Franco, AIR DEODORIZER SERVICER 11/08/2023 2:30 PM EDT Appointment MRI at [address]1000 Navjot Grider MD [facility] DR HEMATOLOGY [place] [address] 11/09/2023 1:45 PM EDT Office Visit Hematology and Oncology at [address] Isabell Jacob MD [facility] [place] [address] 11/11/2023 10:30 AM EDT Office Visit Radiation Oncology at [place] [phone] Nicki Sharpe MD [facility] [place] [address] 11/15/2023 10:00 AM EDT Office [place] [address] Debra Franco, ROLANDO 11/16/2023 9:00 AM EDT Office Visit Hematology [place] [address] Bisi Nam 11/22/2023 10:00 AM EDT Office [place] [address] Debra Franco, ROLANDO 11/30/2023 9:00 AM EDT Office Visit Hematology [place] [address] Bisi Nam 12/14/2023 9:00 AM EDT Office Visit [place] [address] Bisi Nam 12/28/2023 9:00 AM EDT Office Visit [place] [address] Bisi Nam documented as of this encounter Goals Goal Patient Goal Type Associated Problems Recent Progress Patient-Stated? Author Patient's specific desired goal: Patient Facing Action Plan No Andrei Egan, [facility] Note: Goal(s): maintain [...] on filedocumented in this encounter Care Teams Teacher Home Therapy Relationship Specialty Start Date End Date Molina Herr MD [facility] [address] [place] [address] PCP - General 01/27/10 documented as of this encounter
--- OUTSIDE RECORDS SUMMARY | 2023-10-17 15:06 | XMS_ITS | Encounter Summary ---
Author [facility] [place] [address] Care Team Providers Care Gambreler Name Role Phone oMlina Herr MD Primary Care Provider [phone] Reason for Visit * Speech Therapy (Routine) - Authorized Specialty Diagnoses / Procedures Referred By Contac t Referred To Contact Speech Therapy Diagnoses Brain tumor RFV aphasia - please sched CURT. Debra would be preferred, but any of the neuro vinyl dipper are fine. Michael Lundberg MD [facility] [place] [address] [facility] [place] [address] Referral ID Status Reason Start Date Expiration Date Visits Requested Visits Authorized [id number] Authorized Evaluate and Treat 08/06/2023 08/05/2024 100 100 Encounter Details Date Type Department Care Team (Latest Contact Info) Description 09/13/2023 8:00 AM EDT Office [place] [address] Debra Franco, SLIP COVER SEAMSTRESS Cognitive communication disorder; Brain tumor Social History [...] from your doctor or pharmacy? Sometimes 08/22/2023 [facility] Utilities Answer Date Recorded In the [...] any time in the past 12 m [facility], were you homeless or living in a half-way (including now)? 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 right hand dominant male who was seen on 08/24/2023 for an Outpatient Thzbvi-Jehuddfi-Yqknjtpcv Evaluation. He is known to this clinician [...] Per chart review, Maldonado was seen by Ophthalmology and Radiation Oncology since our last visit. Per formal interview, he started using Constant Therapy on his laptop. This has helped him gain awareness and have improved insight into areas of difficulty, specifically related to slowness with reading and word-finding difficulties. Endorses potential concerns related to cognitive-flexibility. That is, when playing bananagrams, once he puts down a word he is stuck and cannot manipulate it. Subjective: Maldonado was encountered in the outpatient rehab office, unaccompanied. He was pleasant and engaged throughout this session. Objective: Pt seen for speech therapy targeting aphasia and cognitive- communication and demonstrated the following: Pain: Did not appear to be in acute distress. Cognitive-Linguistic Intervention: Education: Maldonado was provided education through a [...] implement these strategies into dayto day activities. Three instances of word-finding difficulties today- octopus x2, lobster x1 Utilized circumlocution (describing) to talk around the word and was able to find 100% of words on his own Unable to recall Constant Therapy as the name of his adriana x2 today. Phonemic cueing was not effective. One phonemic paraphasia while reading- shunking for chunking One real word error while saying a common phrase andrews for weeds Card sorting activity: - Sustained attention Pt provided with a deck of cards and was tasked with sorting by suit. Environmental distractions were eliminated. 52/52= 100% accuracy - Observations: self-corrected x1 and checked work at the end of the activity Memory Card Game: - Memory and compensatory strategy training The patient was provided with 8 cards placed upside down (4 pairs). They were tasked with flipping over two cards at a time and finding matches. Trained patient in using repetition/speaking aloud, visualization, and slowing down/taking their time during tasks. Trial 1- 2x with moderate cueing Trial 2- 0x with moderate cueing Trial 3- 0x independently Education: Maldonado has been educated on results and recommendations and verbalized understanding/agreement. At the end of the session he denied outstanding questions or concerns. Home Exercise Program (HEP) Recommendations: Free adriana suggestions: [employer] (choose complex level games such as gin rummy, spit, etc.) [employer] TalkPath Therapy (iPad only, or on desktop website) Paid adriana suggestions: Constant Therapy: good for different language skills Brain HQ: different activities targeting attention, memory, processing speed, etc. Free online word games: Wordle Mohan Quordle NYT Daily Mini Crossword Phrazle Offline activities: Plan a trip in a large city (e.g., [facility], [place]) and research your routes, tickets, places to [...] of tools provided to you by your SLIP COVER SEAMSTRESS. Play offline/live word games with family/friends Reading: start at the sentence-level and work your way up. Try to read and work through each troublesome word before moving on. Assessment: Perfecto Okeefe was seen on 09/13/2023 for a follow-up SLIP COVER SEAMSTRESS visit. Addressed treatment goals targeting education of memory and word-finding strategies, and implementation of attention and memory strategies in functional tasks. Completed further motivational interviewing revealing Maldonado's primary goals being related to word-finding and reading. Salient topics include animals and everyday words. Plan to implement Semantic Feature Analysis and Phonological Components Analysis, as well as reading passages, in the next treatment session. Homework: continue with constant therapy; memory card games Please bring constant therapy username and password to next treatment session for SLIP COVER SEAMSTRESS to assign homework through the clinician portal. Pt will benefit from continued therapeutic interventions [...] you put somethingdown Association: linking old information (adjunct faculty for medical terminology memory) with new information such as taking medicine with breakfast External memory strategies: Write things down in a kit planner or on a calendar Set timers [...] the word, like playing a game of gAuto. Even gesturing with your hands in a [...] mind??? I'll ask you later.?? Adapted from: https://[email or web address]/mgev-kctwnsj-syklygcbgq-aphasia/ Speech Therapy Goals: All ongoing unless otherwise [...] with 90% accuracy given min fading cues. 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 - Patient will independently demonstrate compensatory and support strategies to improve communicative effectiveness in his current living environment. Plan: - Recommend skilled SLIP COVER SEAMSTRESS services, 60 minute sessions, 10 sessions. - Implementation of a HEP Debra Franco MS, [facility]-SLIP COVER SEAMSTRESS Speech-Language Pathologist Pager # [phone] documented in this encounter Plan of Treatment Upcoming Encounters Date Type Department Care Team (Late st Contact Info) Description 10/27/2023 11:15 AM EDT Office [place] [address] Elly Alston MD [facility] DR HOSPICE AND PALLIATIVE [place] [address] 10/27/2023 1:00 PM EDT Office [place] [address] Debra Franco, ROLANDO 11/03/2023 2:00 PM EDT Office Visit Speech Therapy at [place] [phone] Debra Franco, SLIP COVER SEAMSTRESS 11/08/2023 2:30 PM EDT Appointment MRI at [place] [phone] Navjot Grider MD [facility] DR HEMATOLOGY [place] [address] 11/09/2023 1:45 PM EDT Office Visit Hematology and Oncology at [place] [phone] Isabell Jacob MD [facility] [place] [address] 11/11/2023 10:30 AM EDT Office Visit Radiation Oncology at [place] [phone] Nicki Sharpe MD [facility] DR [place] [address] 11/15/2023 10:00 AM EDT Office [place] [address] Debra Franco, SLIP COVER SEAMSTRESS 11/16/2023 9:00 AM EDT Office Visit Hematology [place] [address] Bisi Nam 11/22/2023 10:00 AM EDT Office [place] [address] Debra Franco, SLIP COVER SEAMSTRESS 11/30/2023 9:00 AM EDT Office Visit Hematology [place] [address] Bisi Nam 12/14/2023 9:00 AM EDT Office Visit Hematology and Oncology at [facility] [place] [address] Bisi Nam 12/28/2023 9:00 AM EDT Office Visit Hematology and Oncology at [facility] [place] [address] Bisi Nam documented as of this encounter Goals Goal Patient Goal Type Associated Problems Recent Progress Patient-Stated? Author Patient's specific desired goal: Patient Facing Action Plan No Andrei Egan, [facility] Note: Goal(s): maintain quality [...] brain documented in this encounter Care Teams Gambreler Relationship Specialty Start Date End Date Molina Herr MD [facility] [address] [place] [address] PCP - General 01/27/10 documented as of this encounter
--- OUTSIDE RECORDS SUMMARY | 2023-10-17 15:06 | XMS_ITS | Encounter Summary ---
Author Organization [facility] [place] [address] Care Team Providers Care Stumper Feller Name Role Phone Molina Herr MD Primary Care Provider [phone] Encounter Details Date Type Department Care Team (Latest Contact Info) Description 09/05/2023 Travel Social History Tobacco Use Types Packs/Day [...] Recorded In the past 12 months has [facility] [employer], gas, oil, or water [employer] threatened to shut off services in your [...] any time in the past 12 m [facility], were you homeless or living in [...] AM EDT Office [place] [address] Elly Alston MD [facility] DR HOSPICE AND [place] [address] 10/27/2023 1:00 PM EDT Office [place] [address] Debra Franco, WINDOWS VMWARE ENGINEER 11/03/2023 2:00 PM EDT Office [place] [address] Debra Franco, WINDOWS VMWARE ENGINEER 11/08/2023 2:30 PM EDT Appointment MRI at [place] [address] Navjot Grider MD [facility] [address] [place] [address] 11/09/2023 1:45 PM EDT Office Visit Hematology and Oncology at [address]1000 Isabell Jacob MD [facility] [place] [address] 11/11/2023 10:30 AM EDT Office Visit Radiation Oncology at [address]1000 Nicki Sharpe MD [facility] [place] [address] 11/15/2023 10:00 AM EDT Office [place] [address] Debra Franco, ROLANDO 11/16/2023 9:00 AM EDT Office Visit Hematology [place] [address] Bisi Nam 11/22/2023 10:00 AM EDT Office [place] [address] Debra Franco, ROLANDO 11/30/2023 9:00 AM EDT Office Visit Hematology [place] [address] Bisi Nam 12/14/2023 9:00 AM EDT Office Visit Hematology [place] [address] Bisi Nam 12/28/2023 9:00 AM EDT Office Visit Hematology [place] [address] Bisi Nam documented as of this encounter Goals Goal Patient Goal Type Associated Problems Recent Progress Patient-Stated? Author Patient's specific desired goal: Patient Facing Action Plan Andrei Lee, [facility] Note: Goal(s): maintain quality of life as much as possible Measured by: quality of life scale, ability to participate in activities which he enjoys and needs to do Time-frame: to be assessed at approximately the one year point by pharmacy, or sooner if patient asks to discuss documented as of this encounter Visit Diagnoses Not on filedocumented in this encounter Care Teams Stumper Feller Relationship Specialty Start Date End Date Molina Herr MD [facility] [address] [place] [address] PCP - General 01/27/10 documented as of this encounter
--- OUTSIDE RECORDS SUMMARY | 2023-10-17 15:07 | XMS_ITS | Encounter Summary ---
Author Organization [facility] [place] [address] Care Team Providers Care Wedger Name Role Phone Molina Herr MD Primary Care Provider [phone] Reason for Visit * Speech Therapy (Routine) - Authorized Specialty Diagnoses / Procedures Referred By Contac t Referred To Contact Speech Therapy Diagnoses Brain tumor RFV aphasia - please sched CURT. Debra would be preferred, but any of the neuro toe stripper are fine. Michael Lundberg MD [facility] [place] [address] [facility] Environmental [employer] [place] [address] Referral ID Status Reason Start Date Expiration Date Visits Requested Visits Authorized [id number] Authorized Evaluate and Treat 08/06/2023 08/05/2024 100 100 Encounter Details Date Type Department Care Team (Late st Contact Info) Description 08/24/2023 8:00 AM EDT Office [place] [address] Melanie Braun, RECREATIONAL SPORTS DIRECTOR Cognitive communication disorder (Primary Dx) Social History Tobacco Use Types [...] from your doctor or pharmacy? Sometimes 08/22/2023 [facility] Utilities Answer Date Recorded In the [...] any time in the past 12 m [facility], were you homeless or living in a snf (including now)? No 08/22/2023 [facility] Inpatient [...] as of this encounter Miscellaneous Notes * Initial Evaluation - Melanie Braun, RECREATIONAL SPORTS DIRECTOR - 08/24/2023 8:00 AM EDT Qtguni-Amefnylt-Dvqtmmsan Evaluation Patient Name: Perfecto Polk Date of : 1940 Referring MD: Michael Lundberg Date Seen by MD: 08/07/23 Diagnosis: Cognitive communication disorder. Date of Onset: Spring 2023 Major changes post surgery in July 2023. Date of Evaluation: 08/24/2023 Total Treatment Time: 120 minutes Certification Period: 08/24/23 - 11/24/23 Total Timed Code Treatment: 120 minutes Patient Profile: Perfecto Polk is a 82 y.o. right hand dominant male was seen on 08/24/23 for an Outpatient Weojtf-Tbdvfvyu-Uwryoztsg Evaluation. PMHx significant for elective LEFT craniotomy for resection of LEFT temporal mass with Kareem Dietrich TKA (~3-4 weeks prior to admission), OA, and carotid stenosis on ASA81. Prior RECREATIONAL SPORTS DIRECTOR services: 08/05/23: Assessment: Language: Maldonado presented with fluent, expressive aphasia characterized by anomia/word- finding difficulties, phonemic and semantic paraphasias, and alexia. Areas of relative strength included repetition, answering yes/no questions, automatic speech (e.g., counting from 1-10), picture identification, multi-step command following, and spelling. Provided him with an educational handout detailing word-finding strategies and based on his high level of motivation, recommended several Constant Therapy exercises as detailed below. Assisted pt in downloading the adriana on his iPhone. Cognitive-Communication: Maldonado endorsed changes in memory and general confusion/AMS. He benefited from being provided with acalendar to aid in orientation, and did not require any cueing to use it effectively. Completed theorientation log scoring 30/30. He required extra time to comprehend and respond to questions, but was generally effective today. The Constant Therapy adriana can also be beneficial in addressing cognitive-communication concerns. 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 Language and Cognitive-Communication: Constant therapy adriana recommendations: Oral reading: Read words aloud Read active sentences aloud Naming: Name pictures Name verbs Visual memory: Match pictures Auditory memory: Match words you hear Word-Finding Strategies: Delay Wait a few seconds to see [...] the word, like playing a game of [employer]. Even gesturing with your hands in a [...] mind??? I'll ask you later.?? Adapted from: [email or web address] In [email or web address]-[email or web address]/ Relevant Imagin08/19/23: MRI Brain IMPRESSION Evolution of postsurgical changes. Some enhancement at the deep margin of the resection cavity corresponds to diffusion restriction on the prior study. No new or expanding mass. 07/30/23: MRI Brain IMPRESSION Diffusion tensor imaging showing white matter tracts in the vicinity of the left temporal neoplasm as described above Prior Cognitive-Linguistic Function: Per chart review, Recent admission [facility] [place] 08/04/23 to 08/07/23 Operations/Major Procedures: Dr. Dunlap - 08/04/23- Left temporal craniotomy for tumor resection, frozen consistent with high-grade glioma. Per formal interview, - May not remember what I had for breakfast. - Memory difficulty started 6 weeks ago after knee surgery. - Pt reports seeing images floating around - Speech clarity affected with fatigue. 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 - Pt reports difficulty reading words and newspaper. - Pt reports being unable to drive his sports car. - Trying to stay physically active as possible - Handwriting has changed since surgery. Per report: - Maldonado has started showing frustration recently. - Reports reading difficulty at the moment. - Difficulty sleeping with change in sleep pattern. Relevant Medical History: Past Medical History: Diagnosis Date Hyperlipidemia Lumbar degenerative disc disease 08/21/2010 Medications: Current Outpatient Medications Medication Sig Dispense Refill aspirin EC 81 mg EC (DR) tablet Take 1 tablet by mouth 2 times daily. 60 tablet 0 polyethylene glycoL (Miralax) 17 gram/dose Powder Take 17 g by mouth 2 times daily as needed for upto 30 days. (Patient taking differently: Take 17 g by mouth 2 times daily as needed. PRN) 255 g 0 senna-docusate (Pericolace) 8.6-50 mg Tablet Take 2 tablets by mouth 2 times daily as needed for Constipation for up to 30 days. (Patient taking differently: Take 2 tablets by mouth 2 times daily as needed for Constipation. PRN) acetaminophen (Tylenol) 650 mg/20.3 mL Solution Take 31.2 mLs by mouth every 6 hours as needed (mild pain (1-3)). (Patient not taking: Reported on 08/12/2023) levETIRAcetam (Keppra) 500 mg tablet Take 1 tablet by mouth 2 times daily. 60 tablet 0 pantoprazole EC (Protonix) [address] tablet Take 1 tablet by mouth daily. 30 tablet 0 traMADoL (Ultram) 50 mg tablet Take 1 tablet by mouth every 6 hours as needed for Pain. (Patient not taking: Reported on 08/12/2023) 28 tablet 0 acetaminophen (Tylenol) 500 mg tablet Take 2 tablets by mouth 3 times daily. 180 tablet 0 ubiquinone (Ubiquinone) 100 mg capsule Take 200 mg by mouth once. omeprazole (PRILOSEC) 20 mg Capsule, Delayed Release(E.C.) Take 20 mg by mouth daily. 4 rrkqqxtojsbnl-GN-xmwp (SOURCE CF) 200-10 mcg-mg Chew Take 1 tablet by mouth daily. levothyroxine (SYNTHROID) 25 mcg tablet 25MCG = 1 Tablet(s), PO, Once daily atorvastatin (LIPITOR) 10 mg tablet Take 20 mg by mouth. No current facility-administered medications for this visit. Subjective: Patient was encountered in the outpatient speech therapy office for evaluation with alexys Jaramillo who provided important collateral information. Pt reports being unable to use Constant therapy during post-op duration and later reports the free trial when Pt tried to use the adriana. Maldonado appeared frustrated with the marketing style of the company. Ella was interested if the adriana was helpful for continuing therapy for language deficits. Objective: Patient seen for evaluation today. Pain: Denies Vision: Aided with glasses - needs more Hearing: B/L hearing aids. Needs to get new POLLARD- needs appointment with Technical Internship. Speech and Voice: WFL Patient Reported Outcome Measures: The Communicative Participation Item Bank - General Short Form The CPIB (Paul et al., 2013) is a validated patient-reported outcomes measure of communicative participation for adults. It contains 10 items to assess how one's communication difficulties interfere with participation in a variety of situations and yields a total summary score out of 30, with higher scores being more favorable and indicating less interference in participation. For each item, the patient is instructed to rate how their condition impacts their participation on a scale of 0-3 (0= very much, 1 = quite a bit, 2 = a little, 3 = not at all). Pt's responses are summarized below: # of items rated as a 0 (very much) = 0/10 # of items rated as a 1 (quite a bit) = 1/10 # of items rated as a 2 (a little) = 6/10 # of items rated as a 3 (not at all) = 3/10 Summary Score: 22/30 Does your condition interfere with??? Response Comments ???talking with people you know? 2 ???communicating when you need to say something quickly? 1 ???talking with people you do NOT know? 2 ???communicating when you are out in your community (e.g., errands; appointments)? 2 ???asking questions in a conversation? 2 ???communicating in a small group of people? 3 ???having a long conversation with someone you know about a book, movie, show, or sports event? 3 ???giving someone DETAILED information? 2 ???getting your turn in a fast-moving conversation? 2 ???trying to persuade a friend or family member to see a different point of view? 3 The Working Memory Questionnaire The Working Memory Questionnaire (WMQ; Maureen et al., 2012) is a self- administered scale intended for brain-injured patients (I.e., after stroke or traumatic brain injury), addressing three dimensions of working memory: short- term storage, attention, and executive function. Rating Scale: 0=Not at all, 1=A little, 2=Moderately, 3=A lot, 4=Extremely Question: Pts Response: Do you feel that you tire quickly during the day? 2 Do you find it difficult to carry out a project such as choosing and organizing your holidays? 3 Do you have problems with remembering sequences of numbers, for example, when you have to note downa telephone number? 0 Do you need to make an effort to concentrate in order to follow a conversation in which you are participating with many other people? 3 Do you find it difficult to remember the name of a person who has just been introduced to you? 0 When you shop, do you often spend more than the budget you set for yourself? 0 Do you have difficulty remembering what you have read? 0 When you are interrupted during an activity by a loud noise (door slam, car horn) do you have difficulty getting back to the activity? 0 Do you find it difficult to carry out an activity with chronological steps (cooking, sewing, DIY)? 0 Do nearby conversations disturb you during a conversation with another person? 2 Do you need to re-read a sentence several times to understand a simple text? 2 Needs to process the word due to reading deficits Do you have difficulty in organizing your time with regard to appointments and your daily activities? 0 Ella organizes this for him. Do you find it difficult to do two (or several) things at the same time, such as cooking and listening to the radio at the same time? 0 When you are carrying out an activity, if you realize that you are making a mistake, do you find itdifficult to change strategy? 0 Do you have difficulty understanding what you read? 0 Difficulty reading the words is noted. Do you feel that fatigue excessively reduces your concentration? 4 As day progresses When you pay richardson for an item, do you have difficulty in realizing if you have been given the correct change? 0 Do you find it difficult to follow the different steps of a user???s guide (putting furniture together, installing a new electrical device)? 1 It would be difficult if I did it - I hire people to do it. Do you find it difficult to carry out an activity in the presence of back- ground noise (traffic, radio or television)? 3 - POLLARD are impacting his hearing. Are you particularly disturbed if an unexpected event interrupts your day or what you are in the process of doing? 1 If a character in a text is designated in different ways (he, him), do you have difficulty in understanding the story? 3 - due to POLLARD which are currently causing problems. Do you feel embarrassed when you have a conversation with an unfamiliar person? 0 Do you find that you hesitate for a long time before buying even a common item? 0 Do you feel that you are very slow to carry out your usual activities? 0 Do you have to look at a written phone number many times before dialing a number that you don???t know off by heart? 0 Do you have difficulty in managing your paperwork, sending social security papers, paying bills, etc.? 1 Takes longer time than before surgery. If somebody speaks quickly to you, do you find it difficult to remember what you were told or asked? 1 - yes due to POLLARD Do you find that you tire quickly during an activity which demands a lot of attention (for example,reading)? 2 After doing your shopping, are you surprised to find that you have bought many useless items? 0 Do you find it difficult to participate in a conversation with several people at once? 1 Is baseline Storage domain: Questions 3,5,7,11,15,17,21,25,27,30 Attention domain: Questions 1,4,8,10,13,16,19,22,24,28 Executive domain: Questions 2,6,9,12,14,18,20,23,26,29 Short-Term Storage = Attention = Executive Function = TOTAL = 27/120 (The higher the score, the more severe the impairment) Everyday Memory Questionnaire - Revised The Everyday Memory Questionnaire (EMQ; Koby & Lakhwinder, 2007) is a valid and reliable 13-item tool assessing impact of memory difficulties participation in everyday memory tasks; intended for pts with brain injury or other neurological impairments. Pt rates each question based on how frequently they experienced the prompt in the past month. Responses are as follows: A- Once or less in the last month; B- More than once a month but less than once a week; C- About once a week; D- More than once a week or less than once a day; E- Once or more in a day. # of items rated as A (Once or less in the last month) = 9/13 # of items rated as B (More than once a month but less than once a week) = 1/13 # of items rated as C (About once a week) = 0/13 # of items rated as D (More than once a week or less than once a day) = 1/13 # of items rated as E (Once or more in a day)= 2/ Prompt Response Comments Having to check whether you have done something that you should have done. A Forgetting when it was that something happened; for example, whether it was yesterday or last week.E Forgetting that you were told something yesterday or a few days ago, and maybe having to be reminded about it. A Starting to read something (a book or an article in a newspaper, or a magazine) without realizing you have already read it before. A Finding that a word is ???on the tip of your tongue???. You know what it is but cannot quite find it. E Completely forgetting to do things you said you would do, and things you planned to do. B Forgetting important details of what you did or what happened to you the day before. A When talking to someone, forgetting what you have just said. Maybe saying ???what was I talking about? A When reading a newspaper or magazine, being unable to follow the thread of a story; losing track ofwhat it is about. D Also has difficulty reading as well. Forgetting to tell somebody something important, perhaps forgetting to pass on a message or remind someone of something. A Getting the details of what someone told you mixed up and confused. A Forgetting where things are normally kept or looking for them in the wrong place. A Repeating to someone what you have just told them or asking someone the same question twice. A Cognition and Language: Patient's cognitive-linguistic status was assessed using the following standardized batteries. Scales of Cognitive and Communicative Ability for Neurorehabilitation (SCCAN) The SCCAN is a standardized assessment that tests various cognitive and communicative domains: oralexpression, orientation, memory, speech comprehension, reading comprehension, writing, attention, and problem solving. A total raw score is obtained to classify the SCCAN Degree of Severity which is t ypical functioning, mild impairment, moderate impairment, or severe impairment. Oral Expression: / = 89% Orientation: 02/15 = 100% Memory: 15 = 79% Speech Comprehension: 01/17 = 85% Reading Comprehension: 02/15 = 100% Writin/7 = 100% Attention: 1416 = 88% Problem Solvin/23 = 96% Total Raw Score: 85 SCCAN Degree of Severity Typical Functioning Mild Impairment Moderate Impairment Severe Impairment 87-94 69-86 47-68 0-46 Screenshot of writing section: Superior Naming Test (Standard Form, BNT) The BNT is a standardized assessment used to measure confrontation naming of pictures. 1. Number of spontaneously given correct responses: 32/60 (53% accuracy) 2. Number of stimulus cues given: 28 3. Number of correct responses following a stimulus cue: 0 4. Number of phonemic cues: 28 5. Number of correct responses following a phonemic cue: 5 6. Number of multiple choices given: 23 7. Number of correct choices: 22 Total Score (1+3): 32/60 (53%) Latency: 2-3 seconds wait helpful for 6 stimulus images. Education: Maldonado & Ella were provided a handout to identify need for therapy targeting functional daily living tasks. They were encouraged to fill this sheet before next session with this RECREATIONAL SPORTS DIRECTOR. Assessment: Perfecto Polk is a 82 y.o. right hand dominant male was seen on 08/24/23 for an Outpatient Tsjvub-Fzkztkpq-Vbwuzbhkp Evaluation. PMH significant for elective LEFT craniotomy for resection of LEFT temporal mass with Dr. Dunlap leading to current language (word finding) and cognition deficits (memory). Pt's partner Ella was present during this session and Pt reported Ella assists with scheduling. His Hearing Aids impact his hearing ability and speech comprehension. He also reportsdifficulty reading and writing. Ella reported Maldonado is scheduled to pursue ChemoRad for Brain CA. Patient Reported Outcome Measures administered during this session revealed deficits during communication along with difficulty in word finding and memory recall. He reports being easily frustrated recently. Scales of Cognitive and Communicative Ability for Neurorehabilitation (SCCAN) was administered which revealed Mild Cognitive Communication Disorder with deficits in oral expression, memory, speech comprehension, attention. Standard Superior Naming Test was administered which measure confrontation naming of pictures. The scores revealed 53% accuracy and Maldonado benefited from latency, multiple choicesand phonemic cues. His performance strongly gets impacted with fatigue. Unable to assess writing and reading skills in details during this session. Pt able to read material provided during this evaluation with minimal difficulty. Writing section assessed during SCCAN reveals no deficits (screenshot attached above). Maldonado's Cognitive Communication deficits may impact his safety with ADL and iADLs. His future ChemoRadiation may further impact his cognitive abilities. Pt would benefit from skilled RECREATIONAL SPORTS DIRECTOR services to maximize cognitive-linguistic function and to address limitations as noted above. Diagnosis: Mild cognitive communication disorder. Recommendations: To be discussed in next session with Pt and . Prognosis: Pt's strength's include interest in therapy, supportive partner. Pt's weaknesses includes ongoing pathology along with prior Surgery for glioblastoma, his future ChemoRad may Based on above factors Pt's prognosis is guarded at this time.. Patient would benefit from continued RECREATIONAL SPORTS DIRECTOR services. Speech Therapy Goals: Language goals: - Pt will learn and implement word finding strategies during confrontational naming with 80% accuracy and MIN/MOD cues. - Pt will demonstrate accurate insight and metacognitive awareness of linguistic abilities and deficits during language tasks. - Pt will independently participate in high level home exercise program w/ focus on receptive and expressive language. (CT, etc.) - Using a listening comprehension strategy - i.e. visualization, paraphrasing, questioning, association, etc. - to accurately respond to 80% of WH questions about an auditory passage across three consecutive probing sessions. - Pt will improve reading comprehension of multi paragraph length info with 80% accuracy. Memory: - Patient will recall 100% of compensatory strategies with min fading cues. - Patient will utilize trained compensatory strategies while presented with auditory instructions and recall 80% of the information given use of external memory aids. - Patient will recall 5 or more items after a 30 minute delay given intermittent min verbal cues inorder to increase independence during functional memory tasks. - Pt will utilize trained strategies to complete mental manipulation tasks with 90% accuracy given min fading cues - Pt will incorporate use of journal for various ADLs with complete independence. Attention: - Pt will demonstrate selective attention to auditory stimuli with 90% accuracy given min fading cues. - Pt will demonstrate selective attention to visual stimuli with 90% accuracy given min fading cues. - Pt will demonstrate alternating attention by being able to shift focus between tasks/activities with 90% accuracy given min fading cues. - Pt will demonstrate divided attention by responding to multiple tasks or details within tasks at the same time with 90% accuracy given min fading cues. Custodial Goal: - Pt will be able to demonstrate independence w/ higher level cognitive demands in home, community,and work environments, utilizing compensatory and support strategies independently as needed, for successful return to prior level of function. - Pt will independently demonstrate compensatory and support strategies to improve communicative effectiveness in her current living environment. Plan: - Recommend skilled RECREATIONAL SPORTS DIRECTOR services, 60 minute sessions, x8 session. - Implementation of a HEP starting next week Pt./family are in agreement with treatment plan. Thank you for this consult with this patient. Please feel free to page me with any questions or concerns. Melanie Braun MS, [facility]- RECREATIONAL SPORTS DIRECTOR Pager #[phone] Speech Language Pathology Inpatient Rehabilitation Medicine documented in this encounter Plan of Treatment Upcoming Encounters Date Type Department Care Team (Late st Contact Info) Description 10/27/2023 11:15 AM EDT Office [place] [id number] Elly Alston MD [facility] [place] [address] 10/27/2023 1:00 PM EDT Office Visit Speech Therapy at [place] [address] Debra Franco, RECREATIONAL SPORTS DIRECTOR 11/03/2023 2:00 PM EDT Office Visit Speech Therapy at [place] [phone] Debra Franco, RECREATIONAL SPORTS DIRECTOR 11/08/2023 2:30 PM EDT Appointment MRI at [address] Navjot Grider MD [facility] [place] [address] 11/09/2023 1:45 PM EDT Office Visit Hematology and Oncology at [place] [address] Isabell Jaocb MD [facility] [place] [address] 11/11/2023 10:30 AM EDT Office Visit Radiation Oncology at [place] [address] Nicki Sharpe MD [facility] [place] [address] 11/15/2023 10:00 AM EDT Office Visit Speech Therapy at [place] [phone] Debra Franco, RECREATIONAL SPORTS DIRECTOR 11/16/2023 9:00 AM EDT Office Visit Hematology and Oncology at [place] [phone] Bisi Nam 11/22/2023 10:00 AM EDT Office [place] [address] Debra Franco, ROLANDO 11/30/2023 9:00 AM EDT Office Visit Hematology [place] [address] Bisi Nam 12/14/2023 9:00 AM EDT Office Visit Hematology [place] [address] Bisi Nam 12/28/2023 9:00 AM EDT Office Visit [place]ematology [place] [address] Bisi Nam documented as of this encounter Goals Goal Patient Goal Type Associated Problems Recent Progress Patient-Stated? Author Patient's specific desired goal: Patient Facing Action Plan No Andrei Egan, [facility] Note: Goal(s): [...] Procedure Name Priority Date/Time Associated Diagnosis Comments RECREATIONAL SPORTS DIRECTOR PLAN OF CARE CERT/RE-CERT Routine 08/26/2023 12:47 PM EDT Cognitive communication disorder documented in this encounter Visit Diagnoses Diagnosis Cognitive communication disorder- Primary documented in this encounter Care Teams Wedger Relationship Specialty Start Date End Date Molina Herr MD [facility] [address] [place] [address] PCP - General 01/27/10 documented as of this encounter
--- OUTSIDE RECORDS SUMMARY | 2023-10-17 15:07 | XMS_ITS | Encounter Summary ---
Author Organization [facility] [place] [address] Care Team Providers Care Drying Oven Attendant Name Role Phone Molina Herr MD Primary Care Provider [phone] Reason for Referral * Diagnostic Test (Routine) - Closed Specialty Diagnoses / Procedures Referred By Contac t Referred To Contact Radiology Diagnoses Brain tumor Procedures MRI Brain wwo Contrast (Generic) Nicki Sharpe MD [facility] [place] [address] [place] [address] Referral ID Status Reason Start Date Expiration Date V isits Requested Visits Authorized [id number] Closed Specialty Service Requested 08/12/2023 02/10/2025 1 1 Reason for Visit * Diagnostic Test (Routine) - Closed Specialty Diagnoses / Procedures Referred By Contac t Referred To Contact Radiology Diagnoses Brain tumor Procedures MRI Brain wwo Contrast (Generic) Nicki Sharpe MD [facility] [place] [address] [place] [address] Referral ID Status Reason Start Date Expiration Date V isits Requested Visits Authorized [id number] Closed Specialty Service Requested 08/12/2023 02/10/2025 1 1 Encounter Details Date Type Department Care Team (Latest Contact Info) Description 08/19/2023 7:39 AM EDT - 08/19/2023 11:59 PM EDT Hospital Encounter Radiology at [facility] [place] [address] Nicki Sharpe MD [facility] [address] Brain tumor Discharge Disposition: Home Social History Tobacco Use [...] written material from your doctor or pharmacy? Often 08/10/2023 [facility] Utilities Answer Date Recorded In the past 12 months has th e electric, gas, oil, or water [employer] threatened to shut off services in your home? No 08/10/2023 Overall Financial Resource Strain (CARDIA) Answe r Date Recorded How hard is it for you to pa y for the very basics like food, housing, medical care, and heating? Not hard at all 08/10/2023 Hunger Vital Sign Answer Date Recorded Within the past 12 months, y ou worried that your food would run out before you got the money to buy more. Never true 08/10/19 24 Within the past 12 months, t he food you bought just didn't last and you didn't have money to get more. Never true 08/10/2023 PRAPARE - Transportation Answer Date Re corded In the past 12 months, has l ack of transportation kept you from medical appointments or from getting medications? No 07/2023 In the past 12 months, has l ack of transportation kept you from meetings, work, or from getting things needed for daily living? No 08/10/2023 Housing Stability Vital Sign Answer Carrington e Recorded In the last 12 months, was t here a time when you were not able to pay the mortgage or rent on time? No 08/10/2023 In the past 12 months, how m any times have you moved where you were living? 1 08/10/2023 At any time in the past 12 m [facility], were you homeless or living in a retirement (including now)? No 08/10/2023 [facility] IPV Inpatient Questions Answer Date Recorded [...] Sig Dispensed Refills Start Date End Date aspirin EC 81 mg EC (DR) tablet [...] 20 mg by mouth daily. 4 03/08/2014 krlrimkdsesfk-CQ-[id number] (SOURCE CF) 200-10 mcg-mg Chew Take 1 tablet by mouth daily. 08/04/2010 levothyroxine (SYNTHROID) 25 mcg tablet 25MCG = 1 Tablet(s), PO, Once daily 09/27/2007 atorvastatin (LIPITOR) 10 mg tablet Take 20 mg by mouth. 09/27/2007 dexAMETHasone (Decadron) 1 mg tablet Take 4 tablets by mouth every 6 hours for 3 days, THEN 4 tablets 2 times daily for 3 days, THEN 2 tablets 2 times daily for 3 days, THEN 1 tablet 2 times daily for 3 days, THEN 1 tablet daily for 3 days. 93 tablet 08/06/2023 08/21/2023 polyethylene glycoL (Miralax) 17 gram/dose Powder Take 17 g by mouth 2 times daily as needed for up to 30 days. 255 g 08/06/2023 09/05/2023 celecoxib (CeleBREX) 200 mg capsule Take 1 capsule by mouth 2 times daily for 42 doses. 30 capsule 1 07/30/2023 08/20/2023 levETIRAcetam (Keppra) 500 mg tablet Take 1 tablet by mouth 2 times daily. 60 tablet 07/30/2023 08/25/2023 documented as of this encounter Plan of Treatment Upcoming Encounters Date Type Department Care Team (Late st Contact Info) Description 10/27/2023 11:15 AM EDT Office Visit Palliative Medicine at [place] [phone] Elly Alston MD [facility] DR HOSPICE AND [place] [address] 10/27/2023 1:00 PM EDT Office Visit Speech Therapy at [place] [phone] Debra Franco, LEAD CONSULTANT 11/03/2023 2:00 PM EDT Office Visit Speech Therapy at [place] [phone] Debra Franco, LEAD CONSULTANT 11/08/2023 2:30 PM EDT Appointment MRI at [place] [phone] Navjot Grider MD [facility] HEMATOLOGY [place] [address] 11/09/2023 1:45 PM EDT Office Visit Hematology and Oncology at [place] [phone] Isabell Jacob MD [facility] [place] [address] 11/11/2023 10:30 AM EDT Office [place] [address] Nicki Sharpe MD [facility] DR RADIATION ONCOLOGY [place] [id number] 11/15/2023 10:00 AM EDT Office [place] [address] Debra Franco SLP 11/16/2023 9:00 AM EDT Office Visit Hematology [place] [address] Bisi Nam 11/22/2023 10:00 AM EDT Office [place] [address] Debra Franco LEAD CONSULTANT 11/30/2023 9:00 AM EDT Office Visit Hematology [place] [address] Bisi Nam 12/14/2023 9:00 AM EDT Office Visit Hematology [place] [address] Bisi Nam 12/28/2023 9:00 AM EDT Office Visit Hematology [place] [address] Bisi Nam documented as of this encounter Procedures Procedure Name Priority Date/Time Associated Diagnosis Comments MRI BRAIN WWO CONTRAST (GENERIC) Routine 08/19/2023 8:50 AM EDT Brain tumor documented in this encounter Results * MRI Brain wwo Contrast (Generic) (08/19/2023 8:50 AM EDT) [employer] WORKSTATION ID [id number] [facility] Anatomical Region Laterality Modality Head Magnetic Resonan [...] who have questions please contact the health health care facilities inspector that requested your imaging first. ? Electronically signed by: Alexandre Wei MD, [facility] ([phone]), at 08/21/2023 10:32 AM Narrative 08/21/2023 10:32 [...] patients who have questions please contactthe health health care facilities inspector that requested your imaging first. Electronically signed by: Alexandre Wei MD, [facility]([phone]), at 08/21/2023 10:32 AM Nicki Sharpe MD [facility] MRI ORDERABLES documented in this encounter Visit Diagnoses Diagnosis Brain tumor Neoplasm of unspecified nature of brain documented in this encounter Administered Medications Inactive Administered Medications - up to 3 most recent administrations Medication Order MAR Action Action Date Dose Rate Site gadoterate meglumine (Dotarem) (0.5 mMol/mL) injection solution 0-100 mL 0-100 mL, Intravenous, ONCE PRN, 1 dose, Starting on Tue08/19/23 at 0811, Until Tue08/19/23 at 0825, Per Protocol, Radiology Contrast, Routine Given 08/19/2023 8:25 AM EDT 16 mLs documented in this encounter Care Teams Drying Oven Attendant Relationship Specialty Start Date End Date Molina Herr MD [facility] [address] [place] [address] PCP - General 01/27/10 documented as of this encounter
--- OUTSIDE RECORDS SUMMARY | 2023-10-17 15:07 | XMS_ITS | Encounter Summary ---
[place] [address] Care Team Providers Care Certified Coder Name Role Phone Molina Herr MD Primary Care Provider [phone] Encounter Details Date Type Department Care Team (Late st Contact Info) Description 08/09/2023 [place]phone [place] [phone] Amira Perea Social History Tobacco Use Types [...] from your doctor or pharmacy? Often 08/10/2023 [facility] Utilities Answer Date Recorded In the [...] any time in the past 12 m [facility], were you homeless or living in a senior living (including now)? No 08/10/2023 IPV Inpatient Questions Answer Date Recorded Does [...] AM EDT Office [place] [address] Elly Alston MD [facility] DR HOSPICE AND [place] [address] 10/27/2023 1:00 PM EDT Office [place] [address] Debra Franco, SUMMER SESSIONS DIRECTOR 11/03/2023 2:00 PM EDT Office Visit Speech Therapy at [place] [phone] Debra Franco, SUMMER SESSIONS DIRECTOR 11/08/2023 2:30 PM EDT Appointment MRI at [address] Navjot Grider MD [facility] [place] [address] 11/09/2023 1:45 PM EDT Office Visit Hematology and Oncology at [address] Isabell Jacob MD [facility] [place] [address] 11/11/2023 10:30 AM EDT Office Visit Radiation Oncology at [address] Nicki Sharpe MD [facility] [place] [address] 11/15/2023 10:00 AM EDT Office Visit Speech Therapy at [place] [phone] Debra Franco, ROLANDO 11/16/2023 9:00 AM EDT Office Visit Hematology [place] [address] Bisi Nam 11/22/2023 10:00 AM EDT Office [place] [address] Debra Franco, ROLANDO 11/30/2023 9:00 AM EDT Office Visit Hematology [place] [address] Bisi Nam 12/14/2023 9:00 AM EDT Office Visit Hematology [place] [address] Bisi Nam 12/28/2023 9:00 AM EDT Office Visit Hematology [place] [address] Bisi Nam documented as of this encounter Visit Diagnoses Not on filedocumented in this encounter Care Teams Certified Coder Relationship Specialty Start Date End Date Molina Herr MD [facility] [address] [place] [address] PCP - General 01/27/10 documented as of this encounter
--- OUTSIDE RECORDS SUMMARY | 2023-10-17 15:07 | XMS_ITS | Encounter Summary ---
Author Organization [facility] [place] [address] Care Team Providers Care Field Artillery Targeting Technician Name Role Phone Molina Herr MD Primary Care Provider [phone] Encounter Details Date Type Department Care Team (Latest Contact Info) Description 08/24/2023 Travel Social History Tobacco Use Types Packs/Day [...] doctor or pharmacy? Sometimes 08/22/2023 [facility] Utilities Answer Date Recorded In the past 12 months has [facility] [employer], gas, oil, or water [employer] threatened to shut off services in your [...] AM EDT Office [place] [address] Elly Alston MD [facility] [address] HOSPICE [place] [address] 10/27/2023 1:00 PM EDT Office [place] [address] Debra Franco, REMOTE ADVISOR 11/03/2023 2:00 PM EDT Office [place] [address] Debra Franco, REMOTE ADVISOR 11/08/2023 2:30 PM EDT Appointment MRI at [place] [address] Navjot Grider MD [facility] DR [place]AT[place] [address] 11/09/2023 1:45 PM EDT Office Visit Hematology and Oncology at [address] Isabell Jacob MD [facility] [place] [address] 11/11/2023 10:30 AM EDT Office Visit Radiation Oncology at [address] Nicki Sharpe MD [facility] [place] [address] 11/15/2023 10:00 AM EDT Office Visit Speech Therapy at [place] [phone] Debra Franco, ROLANDO 11/16/2023 9:00 AM EDT Office Visit Hematology and Oncology at [place] [phone] Bisi Nam 11/22/2023 10:00 AM EDT Office Visit Speech Therapy at [place] [phone] Debra Franco, ROLANDO 11/30/2023 9:00 AM EDT Office Visit [place] [address] Bisi Nam 12/14/2023 9:00 AM EDT Office Visit [place] [address] Bisi Nam 12/28/2023 9:00 AM EDT Office Visit [place] [address] Bisi Nam documented as of this encounter Visit Diagnoses Not on filedocumented in this encounter Care Teams Field Artillery Targeting Technician Relationship Specialty Start Date End Date Molina Herr MD [facility] [address] [place] [address] PCP - General 01/27/10 documented as of this encounter
--- OUTSIDE RECORDS SUMMARY | 2023-10-17 15:07 | XMS_ITS | Encounter Summary ---
Author Organization [facility] [place] [address] Care Team Providers Care Child Therapist Name Role Phone Molina Herr MD Primary Care Provider [phone] Encounter Details Date Type Department Care Team (Latest Contact Info) Description 08/17/2023 Travel Social History Tobacco Use Types Packs/Day [...] from your doctor or pharmacy? Often 08/10/2023 [facility] Utilities Answer Date Recorded In the past 12 months has [facility] [employer], gas, oil, or water [employer] threatened to shut off services in your [...] any time in the past 12 m [facility], were you homeless or living in a longterm (including now)? No 08/10/2023 IPV Inpatient Questions [...] AM EDT Office Visit [place] [address] Elly Alston MD [facility] DR HOSPICE AND [place] [address] 10/27/2023 1:00 PM EDT Office Visit [place] [address] Debra Franco, ARMATURE WINDER AUTOMOTIVE 11/03/2023 2:00 PM EDT Office Visit [place] [address] Debra Franco, ARMATURE WINDER AUTOMOTIVE 11/08/2023 2:30 PM EDT Appointment MRI at [place] [address] Navjot Grider MD [facility] DR [place] [address] 11/09/2023 1:45 PM EDT Office Visit Hematology and Oncology at [address]1000 Isabell Jacob MD [facility] [place] [address] 11/11/2023 10:30 AM EDT Office Visit Radiation Oncology at [address]1000 Nicki Sharpe MD [facility] [place] [address] 11/15/2023 10:00 AM EDT Office Visit Speech Therapy at [place] [phone] Debra Franco, ROLANDO 11/16/2023 9:00 AM EDT Office Visit Hematology and Oncology at [place] [phone] Bisi Nam 11/22/2023 10:00 AM EDT Office Visit Speech Therapy at [place] [phone] Debra Franco, ROLANDO 11/30/2023 9:00 AM EDT Office Visit Hematology [place] [address] Bisi Nam 12/14/2023 9:00 AM EDT Office Visit Hematology [place] [address] Bisi Nam 12/28/2023 9:00 AM EDT Office Visit Hematology [place] [address] Bisi Nam documented as of this encounter Visit Diagnoses Not on filedocumented in this encounter Care Teams Child Therapist Relationship Specialty Start Date End Date Molina Herr MD [facility] [address] [place] [address] PCP - General 01/27/10 documented as of this encounter
--- OUTSIDE RECORDS SUMMARY | 2023-10-17 15:07 | XMS_ITS | Encounter Summary ---
[place] [address] Care Team Providers Care Correctional Sergeant Name Role Phone Molina Herr MD Primary Care Provider [phone] Reason for Visit * Reason Comments Prior Authorization Temodar Encounter Details Date Type Department Care Team (Late st Contact Info) Description 08/25/2023 Specialty [place] [address] Orlin Chavez, PROFESSOR OF RELIGIOUS STUDIES Social History Tobacco Use Types Packs/Day Years [...] from your doctor or pharmacy? Sometimes 08/22/2023 [facility] Utilities Answer Date Recorded In the [...] as of this encounter Progress Notes * Orlin Chavez, PROFESSOR OF RELIGIOUS STUDIES - 08/25/2023 10:20 AM EDT [facility], Benefits Investigation Patient: Perfecto Polk Patient : 1940 Patient Address: [address] [place] [phone] (home) Medication Name: TEMOZOLOMIDE Medication ID: [place] [facility] Patient Location Comment: Medication Strength Frequency Requested: Take 145mg by mouth daily for 21 days Qty/Day Supply: New Start: New to Therapy Diagnosis & ICD-10 Code: Brain Tumor Subscriber Insurance: Subscriber Insurance Comment: Insurance ID: Phone: Fax: Physician: NAVJOT GRIDER Physician Comment : PA Status: PA Not Needed Insurance mandated Pharmacy: Fillable at [facility] Specialty Pharmacy: Yes Insurance requirements/notes: None Copay: $0.00 Copay assistance: None Copay assistance comment: Pharmacy staff will be reaching out to the patient to inform them of their medication's approval bytheir insurance. If applicable, a pharmacist will speak with the patient to offer our specialty pharmacy services and to arrange delivery of their medication. Orlin Chavez CPHT 08/25/23 10:23 AM documented in this encounter Plan of Treatment Upcoming Encounters Date Type Department Care Team (Late st Contact Info) Description 10/27/2023 11:15 AM EDT Office Visit Palliative Medicine at [place] [phone] Elly Alston MD [facility] DR HOSPICE AND [place] [address] 10/27/2023 1:00 PM EDT Office [place] [address] Debra Franco ASSISTANT PRODUCE MANAGER 11/03/2023 2:00 PM EDT Office [place] [address] Debra Franco ASSISTANT PRODUCE MANAGER 11/08/2023 2:30 [place] [address] Navjot Grider MD [facility] DR [place] [address] 11/09/2023 1:45 PM EDT Office Visit Hematology and Oncology at [place] [address] Isabell Jacob MD [facility] [place] [address] 11/11/2023 10:30 AM EDT Office Visit Radiation Oncology at [place] [address] Nicki Sharpe MD [facility] [place] [address] 11/15/2023 10:00 AM EDT Office Visit Speech Therapy at [place] [phone] Debra Franco, ASSISTANT PRODUCE MANAGER 11/16/2023 9:00 AM EDT Office Visit Hematology and Oncology at [place] [phone] Bisi Nam 11/22/2023 10:00 AM EDT Office Visit Speech Therapy at [place] [phone] Debra Franco, ASSISTANT PRODUCE MANAGER 11/30/2023 9:00 AM EDT Office Visit [place]ology [place] [address] Bisi Nam 12/14/2023 9:00 AM EDT Office Visit [place] [address] Bisi Nam 12/28/2023 9:00 AM EDT Office Visit [place]ematology [place] [address] Bisi Nam documented as of this encounter Visit Diagnoses Not on filedocumented in this encounter Care Teams Correctional Sergeant Relationship Specialty Start Date End Date Molina Herr MD [facility] [address] [place] [address] PCP - General 01/27/10 documented as of this encounter
--- OUTSIDE RECORDS SUMMARY | 2023-10-17 15:07 | XMS_ITS | Encounter Summary ---
Author Organization [facility] [place] [address] Care Team Providers Care Synchronous Motor Assembler Name Role Phone Molina Herr MD Primary Care Provider [phone] Encounter Details Date Type Department Care Team (Latest Contact Info) Description 08/22/2023 Travel Social History Tobacco Use Types Packs/Day [...] from your doctor or pharmacy? Sometimes 08/22/2023 [facility] Utilities Answer Date Recorded In the past 12 months has [facility] [employer], gas, oil, or water [employer] threatened to shut off services in your [...] any time in the past 12 m [facility], were you homeless or living in [...] AM EDT Office Visit [place] [address] Elly Alston MD [facility] DR HOSPICE [place] [address] 10/27/2023 1:00 PM EDT Office [place] [address] Debra Franco, AUTOMATIC PAD MAKING MACHINE OPERATOR 11/03/2023 2:00 PM EDT Office [place] [address] Debra Franco, AUTOMATIC PAD MAKING MACHINE OPERATOR 11/08/2023 2:30 PM EDT Appointment MRI at [place] [address] Navjot Grider MD [facility] DR [place] [address] 11/09/2023 1:45 PM EDT Office Visit Hematology and Oncology at [address]1000 Isabell Jacob MD [facility] [place] [address] 11/11/2023 10:30 AM EDT Office Visit Radiation Oncology at [address] Nicki Sharpe MD [facility] [place] [address] 11/15/2023 10:00 AM EDT Office Visit Speech Therapy at [place] [phone] Debra Franco, ROLANDO 11/16/2023 9:00 AM EDT Office Visit Hematology and Oncology at [place] [phone] Bisi Nam 11/22/2023 10:00 AM EDT Office Visit Speech Therapy at [place] [phone] Debra Franco, ROLANDO 11/30/2023 9:00 AM EDT Office Visit Hematology [place] [address] Bisi Nam 12/14/2023 9:00 AM EDT Office Visit Hematology [place] [address] Bisi Nam 12/28/2023 9:00 AM EDT Office Visit Hematology [place] [address] Bisi Nam documented as of this encounter Visit Diagnoses Not on filedocumented in this encounter Care Teams Synchronous Motor Assembler Relationship Specialty Start Date End Date Molina Herr MD [facility] [address] [place] [address] PCP - General 01/27/10 documented as of this encounter
--- OUTSIDE RECORDS SUMMARY | 2023-10-17 15:07 | XMS_ITS | Encounter Summary ---
[place] [address] Care Team Providers Care Timber Management Assistant Name Role Phone Molina Herr MD Primary Care Provider [phone] Reason for Referral * Diagnostic Test (Routine) - Closed Specialty Diagnoses / Procedures Referred By Contac t Referred To Contact Radiology Diagnoses Brain tumor Procedures MRI Brain wwo Contrast (Generic) Nicki Sharpe MD [facility] [place] [address] [place] [address] Referral ID Status Reason Start Date Expiration Date V isits Requested Visits Authorized [id number] Closed Specialty Service Requested 08/12/2023 02/10/2025 1 1 * Consultation (Routine) - Authorized Specialty Diagnoses / Procedures Referred By Contjessie t Referred To Contact Radiation Oncology Diagnoses Brain tumor Procedures Simulation for Radiation Therapy Planning Nicki Sharpe MD [facility] [place] [address] [facility] [place] [address] Referral ID Status Reason Start Date Expiration Date Visits Requested Visits Authorized [id number] Authorized Consult, Test & Treat 08/12/2023 08/11/2024 30 60 * Consultation (Routine) - Closed Specialty Diagnoses / Procedures Referred By Contac t Referred To Contact Hematology and Oncology Diagnoses Riccardo tumor Nicki Sharpe MD [facility] [place] [address] [facility] [address] [place] [phone] Referral ID Status Reason Start Date Expiration Date V isits Requested Visits Authorized [id number] Closed Consult, Test & Treat 08/12/2023 08/11/2024 1 1 * Consultation (Urgent) - Closed Specialty Diagnoses / Procedures Referred By Contac t Referred To Contact Ophthalmology Diagnoses Brain tumor Nicki Sharpe MD [facility] [place] [address] Yudith Jain MD [facility] [place] [address] Referral ID Status Reason Start Date Expiration Date V isits Requested Visits Authorized [id number] Closed Consult, Test & Treat 08/12/2023 08/11/2024 1 1 * Consultation (Urgent) - Closed Specialty Diagnoses / Procedures Referred By Contac t Referred To Contact Palliative Care Diagnoses Riccardo tumor Nicki Sharpe MD [facility] [place] [address] [facility] [address] [place] [phone] Referral ID Status Reason Start Date Expiration Date V isits Requested Visits Authorized [id number] Closed Consult, Test & Treat 08/12/2023 08/11/2024 1 1 * Consultation (Routine) - Closed Specialty Diagnoses / Procedures Referred By Contac t Referred To Contact Radiation Oncology Diagnoses Brain tumor Nicki Sharpe MD [facility] [place] [place] [address] [facility] [place] [address] Referral ID Status Reason Start Date Expiration Date V isits Requested Visits Authorized [id number] Closed Consult Only 08/12/2023 08/11/2024 1 1 Reason for Visit * Reason Comments Radiation Consult * Consultation (Routine) - Closed Specialty Diagnoses / Procedures Referred By Contac t Referred To Contact Radiation Oncology Diagnoses Brain tumor Michael Lundberg MD [facility] [place] [address] Nicki Sharpe MD [facility] [place] [address] Referral ID Status Reason Start Date Expiration Date V isits Requested Visits Authorized [id number] Closed Consult, Test & Treat 08/06/2023 08/05/2024 1 1 Encounter Details Date Type Department Care Team (Late st Contact Info) Description 08/12/2023 8:30 AM EDT Office Visit [place] [address] Nicki Sharpe MD [facility] [place] [address] Brain tumor (Primary Dx) Social History Tobacco [...] any time in the past 12 m [facility], were you homeless or living in [...] Sign Reading Time Taken Comments Blood Pressure 134/80 08/12/2023 7:51 AM EDT Pulse 62 08/12/2023 7:51 AM EDT Temperature 36.3 ??C (97.3 ??F) 08/12/2023 7 :51 AM EDT Respiratory Rate - - Oxygen Saturation 99% 08/12/2023 7:5 1 AM EDT Inhaled Oxygen Concentration - - Weight 79.4 kg (175 lb) 08/12/2023 7:51 AM EDT fully clothed, shoes on Height - - Body Mass Index 26.61 08/04/2023 9:12 AM EDT documented in this encounter Progress Notes * Emili Kennedy RN - 08/12/2023 8:30 AM EDT RADIATION ONCOLOGY NURSING INITIAL NURSING ASSESSMENT IDENTIFICATION: Perfecto Polk is a 82 y.o. year-old male with new high grade glioma s/p resection. PRESENTING SYMPTOMS/CHIEF COMPLAINT: new patient consult Smoking History: no Drug History: no Alcohol History: no Family History of Cancer: Brother-metastatic prostate cancer Dad-prostate cancer REVIEW OF SYSTEMS: Review of Systems Constitutional: Positive for fatigue (getting better). HENT: Positive for hearing loss (bilateral hearing aids) and lump/mass (high grade glioma s/p resection). Eyes: Positive for eye problems (blurry vision, sees objects worse as day goes by, goes away whencloses eyes, unable to ready newspaper anymore). Musculoskeletal: Positive for gait problem (unsteady, PT advises he use a pole). Skin: Positive for wound (incision with guicho c/d/i). Neurological: Positive for gait problem (unsteady, PT advises he use a pole), headaches (slight newyesterday) and speech difficulty (words are not aligned). Psychiatric/Behavioral: Positive for decreased concentration and sleep disturbance (not enough sleep). The patient is nervous/anxious (most easily gets frustrated). 08/10/2023 5:36 PM REVIEW OF SYSTEMS Constitutional Weight loss Ear / nose / throat / mouth Hearing difficulty Change in the way food tastes Eyes Blurry vision Other eye problems Respiratory None of the above Cardiovascular None of the above Gastrointestinal Constipation Skin, hair None of the above Musculoskeletal None of the above Neurological Balance difficulty, dizziness Other neurological symptoms Hematologic / Lymphatic None of the above Genitourinary None of the above IN THE PAST 12 MONTHS HAVE YOU: Fallen more than one time? No Injured yourself as result of the fall? No Experienced difficulty with walking/problems with balance? Yes Do you use any assistive devices? Yes, uses poles Any history of collagen vascular diseases:No Any Implanted Devices/Hardware: Yes, right knee replacement If yes please put alert in ARIA patient summary Prior Radiotherapy: No Prior Chemotherapy: No Prior Hormone Therapy: No LEARNING ASSESSMENT REVIEWED: Yes ADVANCED DIRECTIVE: yes PAIN ASSESSMENT: [3] out of 10 *eD-H Adult PCS Flow Sheet if 4 or above headache, will take some tylenol and eat breakfast SOCIAL ASSESSMENT: See EDH social assessment information entered. Support Systems: June-partner, dtr Barriers to treatment: no Referrals/Interventions: kyara RADIATION SPECIFIC TEACHING: Yes [facility] Radiation Therapy and You PLAN: Consult with Dr. Sharpe today to discuss radiation treatment options. * Nicki Sharpe MD - 08/12/2023 8:30 AM EDT Images from the original note were not included. [facility] Medicine Radiation Oncology Radiation Oncology Consultation Patient Identity: Patient name: Perfecto Polk Date of : 1940 Chief complaint: Glioblastoma, IDH wildtype, WHO grade 4, MGMT unmethylated Referring: Michael Lundberg MD [facility] [place] [address] History: Perfecto Polk is a right handed 82 y.o. male with a history of carotid stenosis on ASA81 and osteoarthritis seen for a in person consultation in the radiation oncology clinic.. 07/2023: He underwent a right total knee replacement. He reports after surgery he began having progressive issues with his memory with word finding difficulties and names. His PCP ordered an MRI brain. 07/28/23: MRI brain demonstrated a mass centered in the left posterior temporal lobe measuring 4 x 3x 4cm. It showed generally heterogeneous T2 hyperintensity and was associated with extensive left hemispheric vasogenic edema involving the temporal lobe, the posterior perez radiata, the visual radiations, the external and internal capsule on the left. The lesion demonstrated ring- enhancing appearance suggestive of central necrosis. There was midline shift at the septum pellucidum of 5-6 mm with compression of the left lateral ventricular system. The left uncus extended minimally into the suprasellar cistern and abutted the 3rd nerve. There was anterior displacement of the left middle cerebr al artery, M1 segment and elevation of the inferior division of the MCA on sagittal images. 07/28/23: He presented to the ED due to aphasia and memory loss and MRI findings demonstrated a leftposterior temporal lobe mass. 08/04/23: He underwent a left temporal craniotomy for tumor resection with pathology returning as glioblastoma, IDH wildtype, WHO grade 4. MGMT promoter methylation negative. 08/05/23: MRI brain demonstrated interval gross total resection of the enhancing components of the left temporal lobe mass with post operative changes. , He reports since surgery he has had intermittent visual hallucinations. He states he will see a line of words or something floating across the table that is not present. He reports he will also see arandom pattern appear. He reports it is not distressing and if he closes his eyes it goes away. He states this happens several times a day, but is improving. He reports he did not have this issue prior to surgery. He is currently taking dexamethasone 4mg twice a day for one more day and then he will continue to taper down. He also reports that right after surgery he experienced double vision thathas now resolved. He states his vision isn't as sharp as it was previously. He endorses a slight headache this morning, but also states he is not getting good sleep. He takes a couple of tylenol regularly to relax him at night. He endorses a mild headache since surgery that improves when he lays down. He reports his headache is not positional. He denies any dizziness, weakness, numbness, tingling, or loss of time. He reports he previously enjoyed reading, but can not read things as well now. Healso endorses feeling like he is more frustrated and was previously very patient. He denies any muscle twitching, repetitive motions, or concerns for seizure. He states his taste and smell have changed and that his left hearing is slightly worse, but he wears hearing aids at baseline. He is still very active after surgery with walks, boating and other activities. Prior radiation: no Prior Chemo: no Connective tissue disease: no Pacemaker/defibrillator/ implantable device: no I have personally reviewed the imaging studies referenced above. Review of Systems: I reviewed and agree with the nursing review of systems accompanying this encounter. The remainder of the comprehensive review of systems was negative with the exception of the pertinent positives and negatives noted above. Medications and Allergies: Current Outpatient Medications: aspirin EC 81 mg EC (DR) tablet, Take 1 tablet by mouth 2 times daily. (Patient not taking: Reported on 09/09/2023), Disp: 60 tablet, Rfl: 0 pantoprazole EC (Protonix) [address] tablet, Take 1 tablet by mouth daily. (Patient not taking: Reported on 09/09/2023), Disp: 30 tablet, Rfl: 0 acetaminophen (Tylenol) 500 mg tablet, Take 2 tablets by mouth 3 times daily., Disp: 180 tablet, Rfl: 0 ubiquinone (Ubiquinone) 100 mg capsule, Take 200 mg by mouth once., Disp: , Rfl: omeprazole (PRILOSEC) 20 mg Capsule, Delayed Release(E.C.), Take 20 mg by mouth daily., Disp: , Rfl: 4 rlqeqyjquseql-QM-bzkv (SOURCE CF) 200-10 mcg-mg Chew, Take 1 tablet by mouth daily., Disp: , Rfl: levothyroxine (SYNTHROID) 25 mcg tablet, 25MCG = 1 Tablet(s), PO, Once daily, Disp: , Rfl: atorvastatin (LIPITOR) 10 mg tablet, Take 20 mg by mouth., Disp: , Rfl: temozolomide (Temodar) 5 mg capsule, Take 1 capsule (5 mg) with 1 other temozolomide prescription for 145 mg total by mouth daily. Take on an empty stomach. Call clinic before/prior to starting medication/script., Disp: 21 capsule, Rfl: 0 temozolomide (Temodar) 140 mg capsule, Take 1 capsule (140 mg) with 1 other temozolomide prescription for 145 mg total by mouth daily. Take on an empty stomach. Call clinic before/prior to starting medication/script., Disp: 21 capsule, Rfl: 0 pantoprazole EC (Protonix) [address] tablet, Take 1 tablet by mouth daily., Disp: 90 tablet, Rfl: 3 dexAMETHasone (Decadron) 4 mg tablet, Take 1 tablet by mouth daily (after breakfast)., Disp: 90 tablet, Rfl: 0 fluconazole (Diflucan) 150 mg tablet, Take 150 mg by mouth once., Disp: , Rfl: levETIRAcetam (Keppra) 500 mg tablet, Take 1 tablet by mouth 2 times daily., Disp: 60 tablet, Rfl: 3 senna-docusate (Pericolace) 8.6-50 mg Tablet, Take 2 tablets by mouth 2 times daily. (Patient taking differently: Take 1 tablet by mouth as needed.), Disp: 120 tablet, Rfl: 0 ondansetron (Zofran) 4 mg tablet, Take 1 tablet by mouth every 8 hours as needed for Nausea. (Patient not taking: Reported on 09/09/2023), Disp: 30 tablet, Rfl: 0 acetaminophen (Tylenol) 650 mg/20.3 mL Solution, Take 31.2 mLs by mouth every 6 hours as needed (mild pain (1-3))., Disp: , Rfl: Allergies Allergen Reactions [facility] Risk Assessment 06/13/2023: Low risk penicillin allergy. OK to receive full dose of cefazolin, cefuroxime, or any 3rd or 4th+ generation cephalosporin. Exam: Vitals in flowsheet General: Well groomed, no acute distress Eyes: Sclera anicteric, clear conjunctivae, Pupils equal round and reactive to light, extra ocular movements intact Neck: supple, trachea midline Oral: Mucus membranes moist, no thrush or oral lesions Chest: Breathing comfortably on room air, Legs: No lower extremity edema or calf tenderness Skin: Warm, no rashes Mood: Normal insight and judgement Neuro: Alert and oriented to person, place and time, fluid language, Cranial nerves intact except upper right visual field cut, no pronator drift, Negative Romberg, no tremor, 5/5 strength in upper and lower extremities bilaterally, normal sensation, normal coordination, normal gait, no dysarthria Performance Status: KPS 70-80% ECOG 1 Restricted in physically strenuous activity but ambulatory and able to carry out work of a light or sedentary nature, e.g., light house work, office work Summary/Recommendations: Perfecto Polk is a right handed 82 y.o.M with newly diagnosed glioblastoma, IDH wildtype, MGMT unmethylated s/p gross total resection 08/04/23. We discussed the standard of care treatment for glioblastoma is concurrent radiation with temozolomide followed by adjuvant temozolomide with tumor treating pretty. We discussed that his performance status is very good; however, his age puts him at a slightly higher risk for radiation side effects. We discussed 15 vs. 30 fractions of radiation treatment, the risks and benefits of radiation treatment, as well as the long and short term side effects. All of this questions were asked and answered. He stated that he would like to proceed aggressively with treatment and would like to receive 30 fractions of treatment. Cancer Staging: WHO grade 4 60 Gy in 30 fractions radiation treatments Plan: Repeat MRI brain for radiation planning Will schedule radiation simulation and treatment Appointment with neuro-oncology for temozolomide and chemotherapy risks and benefits discussion Given signs and symptoms of what to watch out for and when to call or go to the ED Encouraged to contact us with any additional questions or concerns Given referrals to palliative care, ophthalmology, complementary care, and psychiatry Thank you for allowing me to participate in the care of Perfecto Polk. Nicki Sharpe MD, PhD [facility] Radiation Oncology [phone] Orders Placed This Encounter Procedures Simulation for Radiation Therapy Planning MRI Brain wwo Contrast (Generic) [facility]erral to [facility] Complementary Care Referral to Palliative Care Referral to Ophthalmology Referral to [facility] Psychiatry (Cancer Center Patients Only) The following information is automatically imported from [facility]. 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 Enjoys photography - wants to share his files with his daughter and grandson. Camp up in [place] [facility] [facility] on a herring, enjoys sailing with Anali. Loves his Shonda, not able to drive it right now but wants to again! June worked as an color strainer, esol instructor, and movement therapist. Social Determinants of [...] 0 Homeless in the Last Year: No Family History Problem Relation Age of Onset Cancer Brother Glaucoma Neg Hx Macular Degeneration Neg Hx Retinal Detachment Neg Hx National Cancer Flushing (NCI) [facility] [employer] Commission on Cancer (ACS Aldo) Accredited Cancer Program [employer] (ACR) Accredited Radiation Oncology Program documented in this encounter Plan of Treatment Upcoming Encounters Date Type Department Care Team (Late st Contact Info) Description 10/27/2023 11:15 AM EDT Office Visit Palliative Medicine at [place] [address] Elly Alston MD [facility] HOSPICE [place] [address] 10/27/2023 1:00 PM EDT Office Visit Speech Therapy at [place] [address] Debra Franco, PANEL COVERER 11/03/2023 2:00 PM EDT Office Visit Speech Therapy at [place] [address] Debra Franco, PANEL COVERER 11/08/2023 2:30 PM EDT Appointment MRI at [place] [address] Navjot Grider MD [facility] [place] [address] 11/09/2023 1:45 PM EDT Office Visit Hematology and Oncology at [place] [address] Isabell Jacob MD [facility] [place] [address] 11/11/2023 10:30 AM EDT Office Visit Radiation Oncology at [place] [address] Nicki Sharpe MD [facility] [place] [address] 11/15/2023 10:00 AM EDT Office Visit Speech Therapy at [place] [address] Debra Franco, PANEL COVERER 11/16/2023 9:00 AM EDT Office Visit Hematology [place] [address] Bisi Nam 11/22/2023 10:00 AM EDT Office [place] [address] Debra Franco SLP 11/30/2023 9:00 AM EDT Office Visit Hematology [place] [address] Bisi Nam 12/14/2023 9:00 AM EDT Office Visit Hematology [place] [address] Bisi Nam 12/28/2023 9:00 AM EDT Office Visit Hematology [place] [address] Bisi Nam Scheduled Orders Name Type Priority Associated Diagnoses Orde r Schedule Simulation for Radiation Therapy Planning Radiation Oncology Routine Brain tumor Expected: 08/12/2023, Expires: 02/10/2025 Scheduled Referrals Name Type Priority Associated Diagnoses Order Schedule [facility]erral to [facility] Complementary Care Outpatient Referral Routine Brain tumor Ordered: 08/12/2023 Referral to Palliative Care Outpatient Referral Urgent Brain tumor Ordered: 08/12/2023 Referral to Ophthalmology Outpatient Referral Urgent Brain tumor Ordered: 08/12/2023 Referral to [facility] Psychiatry (Cancer Center Patients Only) Outpatient Referral Routine Brain tumor Ordered: 08/12/2023 documented as of this encounter Goals Goal Patient Goal Type Associated Problems Recent Progress Patient-Stated? Author Patient's specific desired goal: Patient Facing Action Plan No Andrei Egan, [facility] [place] [facility] Note: Goal(s): maintain quality of life as much as possible Measured by: quality of life scale, ability to participate in activities which he enjoys and needs to do Time-frame: to be assessed at approximately the one year point by pharmacy, or sooner if patient asks to discuss documented as of this encounter Results * MRI Brain wwo Contrast (Generic) (08/19/2023 8:50 AM EDT) WORKSTATION ID [id number] RAD Anatomical Region Laterality Modality Head Magnetic [...] who have questions please contact the health acute care occupational therapist that requested your imaging first. ? Narrative 08/21/2023 10:32 AM EDT EXAMINATION: MRI [...] patients who have questions please contactthe health acute care occupational therapist that requested your imaging first. Nicki Sharpe MD [facility] [place] documented in this encounter Visit Diagnoses Diagnosis Brain tumor- Primary Neoplasm of unspecified nature of brain Brain tumor Neoplasm of unspecified nature of brain documented in this encounter Care Teams Timber Management Assistant Relationship Specialty Start Date End Date Molina Herr MD [facility] [address] [place] [address] PCP - General 01/27/10 documented as of this encounter
--- OUTSIDE RECORDS SUMMARY | 2023-10-17 15:07 | XMS_ITS | Encounter Summary ---
Author Organization [facility] [place] [address] Care Team Providers Care Web Consultant Name Role Phone Molina Herr MD Primary Care Provider [phone] Encounter Details Date Type Department Care Team (Latest Contact Info) Description 08/09/2023 Travel Social History Tobacco Use Types Packs/Day [...] from your doctor or pharmacy? Often 08/10/2023 [facility] Utilities Answer Date Recorded In the past 12 months has [facility] [employer], gas, oil, or water [employer] threatened to shut off services in your [...] time in the past 12 m [facility], were you homeless or living in a assisted (including now)? No 08/10/2023 IPV Inpatient Questions [...] AM EDT Office Visit [place] [address] Elly Alston MD [facility] DR HOSPICE AND P[place]IAT[place] [address] 10/27/2023 1:00 PM EDT Office [place] [address] Debra Franco, WEBSITE ADMIN 11/03/2023 2:00 PM EDT Office [place] [address] Debra Franco, WEBSITE ADMIN 11/08/2023 2:30 PM EDT Appointment MRI at [place] [address] Navjot Grider MD [facility] DR HEMATOLOGY [place] [address] 11/09/2023 1:45 PM EDT Office Visit Hematology and Oncology at [address] Isabell Jacob MD [facility] [place] [address] 11/11/2023 10:30 AM EDT Office Visit Radiation Oncology at [address] Nicki Sharpe MD [facility] [address] [place] [address] 11/15/2023 10:00 AM EDT Office Visit Speech Therapy at [place] [phone] Debra Franco, ROLANDO 11/16/2023 9:00 AM EDT Office Visit Hematology and Oncology at [place] [phone] Bisi Nam 11/22/2023 10:00 AM EDT Office Visit Speech Therapy at [place] [phone] Debra Franco, ROLANDO 11/30/2023 9:00 AM EDT Office Visit Hematology [place] [address] Bisi Nam 12/14/2023 9:00 AM EDT Office Visit Hematology [place] [address] Bisi Nam 12/28/2023 9:00 AM EDT Office Visit Hematology [place] [address] Bisi Nam documented as of this encounter Visit Diagnoses Not on filedocumented in this encounter Care Teams Web Consultant Relationship Specialty Start Date End Date Molina Herr MD [address] [place] [address] PCP - General 01/27/10 documented as of this encounter
--- OUTSIDE RECORDS SUMMARY | 2023-10-17 15:07 | XMS_ITS | Encounter Summary ---
[place] [address] Care Team Providers Care Metal Rivet Machine Operator Name Role Phone Molina Herr MD Primary Care Provider [phone] Encounter Details Date Type Department Care Team (Latest Contact Info) Description 08/26/2023 Specialty [place] [id number] Andrei Egan, [facility] Initial Clinical Assessment/Patient Education (temozolomide) for HemOnc Social History Tobacco Use [...] any time in the past 12 m ont, were you homeless or living in a [...] as of this encounter Progress Notes * Andrei Egan, [facility] - 08/26/2023 9:41 AM EDT Specialty Pharmacy Ongoing Clinical Assessment Note Comprehensive Medication Management (CMM) Maldonado Polk is a 82 y.o. (1940) male, who is being followed by [facility] for service of Temozolomide. A review of the medication therapy was performed. The medication was Filled as scheduled, and all medication related questions and concerns were addressed. The specialty pharmacy staff will follow up with the patient 5-7 days prior to next refill. Therapy Start Date: 08/30/23 Summary and Recommendations: Initial consultation and assessment provided to Maldonado and his June regarding his new temozolomide therapy which will be used in conjunction with radiation therapy. Current plan is for three weeks of temozolomide dosed at 75mg/m2 once daily on an empty stomach, starting the night before radiation begins. We reviewed the use of ondansetron which the provider notes recommended taking 30 minutes before each temozolomide dose and every 8 hours as needed. We also discussed the recommendation oftaking in proximity to the evening meal, where Maldonado will have dinner, wait an hour and a half and take the ondansetron, and then wait another 30 minutes before taking the temozolomide. June asked ab out the possibility of the temozolomide causing Maldonado's GERD to be symptomatic. While the product labeling does not specifically list GERD as a side effect, the other G.I. side effects (N/V, abdominal pain) might mimic his GERD symptoms, or even trigger symptoms, so I recommended taking the temozolomide while remaining upright, and drinking a glass of water to make sure that the capsules pass thro ugh the esophagus fully. June seemed familiar with this type of process and suggested that Maldonado can remain upright for an hour after taking the temozolomide. We reviewed the warnings and precautions (bone marrow suppression, hepatotoxicity, hypersensitivity, pneumonia warning, and secondary malignancies) as well as more common side effects such as edema, rash / itching, G.I. (N/V, poor appetite, G.I. pain, constipation), hematologic toxicity and how it might look clinically (SOB, infection / fever, bruising / bleeding), fatigue / dizziness / headache, alopecia. At baseline Maldonado has some slight headaches and a bit of unsteadiness. He arises slowly and purposefully when ambulating. He has some history of constipation but has a few options of OTC stool softeners and stimulants which he uses if he feels he is getting bound up. I mentioned that the temozolomide and ondansetron can both contribute to this. We reviewed his allergy list and reconciled his medication list, noting a couple of minor changes. No drug interactions were identified with the temozolomide. Ondansetron has a minorinteraction with levetiracetam whereby the QT interval can be prolonged but Maldonado does not appear to be at risk based on a recent EKG, and the recommendation is simply to monitor if necessary. His goal is mainly to maintain quality of life over time for as long as possible. That said, June noted that they understand that the radiation and chemo will help to prevent recurrence or spread. Maldonado rates his quality of life at 8 on a scale of 1 to 10 (fairly good) and denies any serious pain other than the headache discussed. Lastly we reviewed safe handling, storage, and home safety in the context of fatigue or unsteadiness. Is patient willing to proceed with Clinical Assessment?: Yes Clinic follow-up needed: Yes Pharmacist follow-up needed: Yes Allergies and Drug intolerance: Allergies Allergen Reactions Penicillins Hives CARROLL Penicillin Allergy Risk Assessment 06/13/2023: Low risk penicillin allergy. OK to receive full dose of cefazolin, cefuroxime, or any 3rd or 4th+ generation cephalosporin. 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 60 tablet 3 aspirin EC 81 mg EC (DR) tablet Take 1 tablet by mouth 2 times daily. 60 tablet 0 acetaminophen (Tylenol) 500 mg tablet Take 2 tablets by mouth 3 times daily. 180 tablet 0 ubiquinone (Ubiquinone) 100 mg capsule Take 200 mg by mouth once. omeprazole (PRILOSEC) 20 mg Capsule, Delayed Release(E.C.) Take 20 mg by mouth daily. 03/13/2014: Received from: External Pharmacy Received Si [id number] (SOURCE CF) 200-10 mcg-mg Chew Take 1 tablet by mouth daily. levothyroxine (SYNTHROID) 25 mcg tablet 25MCG = 1 Tablet(s), PO, Once daily atorvastatin (LIPITOR) 10 mg tablet Take 20 mg by mouth. fluconazole (Diflucan) 150 mg tablet Take 150 mg by mouth once. 08/26/2023: Takes once weekly [START ON 08/30/2023] temozolomide (Temodar) 5 mg capsule Take 1 capsule (5 mg) with 1 other temozolomide prescription for 145 mg total by mouth daily. Take on an empty stomach. Call clinic before/prior to starting medication/script. 08/26/2023: Not started yet 21 capsule 0 [START ON 08/30/2023] temozolomide (Temodar) 140 mg capsule Take 1 capsule (140 mg) with 1 other temozolomide prescription for 145 mg total by mouth daily. Take on an empty stomach. Call clinic before/prior to starting medication/script. 08/26/2023: Not started 21 capsule 0 senna-docusate (Pericolace) 8.6-50 mg Tablet Take 2 tablets by mouth 2 times daily. 120 tablet 0 ondansetron (Zofran) 4 mg tablet Take 1 tablet by mouth every 8 hours as needed for Nausea. 08/26/2023: Not started 30 tablet 0 polyethylene glycoL (Miralax) 17 gram/dose [...] (1-3)). (Patient not taking: Reported on 08/12/2023) pantoprazole EC (Protonix) [address] tablet Take 1 tablet by mouth daily. (Patient not taking: Reported on 08/26/2023) 08/26/2023: Not using 30 tablet 0 traMADoL (Ultram) 50 mg tablet Take 1 tablet by mouth every 6 hours as needed for Pain. (Patient not taking: Reported on 08/12/2023) 28 tablet 0 No current facility-administered medications for this visit. Medication reconciliation discrepancies (compared to [facility] med list): Yes Medication Reconciliation Discrepancies: marked pantoprazole as not using, noted that fluconazole is only taken once weekly Special dietary or hydration requirements: Yes Comments: temozolomide recommended on empty stomach Specialty Assessment and Patient Counseling: Specialty Assessment completed: Yes Delivery method: Delivery Welcome Packet and Rights and Responsibilities: Patient provided welcome packet/rights and responsibilities: Yes Patient Counseling Completed: Yes Reviewed in detail with patient: Dose appropriateness based on recommended standard dosing Current medication list including OTC medications Medication and disease problems Allergies Comorbid conditions/ Problem List Past adverse events if any Special needs of the patient including physical and cognitive limitations Goals of therapy and management strategies Warnings, precautions, and contraindications Side effects Drug-drug and drug-food interactions Administration instructions including dose, frequency and method Handling, storage, and disposal Verifying expiration dates on products before use Rotating medication inventory to use oldest product first Relevant lab data Treatments impact on disease Dose appropriateness based on recommended standard dosing schedule, including any variations from FDA approved dosing Disease-Specific Assessment and Outcomes: 08/26/2023 Hem/Onc Current therapy Temozolomide Condition glioblastoma Other non-specialty medications being currently used for the diagnosis ondansetron BSA 1.96 Were relevant labs reviewed by the pharmacist? Yes Has the patient been prescribed infection prophylaxis? N/A Has the patient been prescribed TLS prophylaxis? N/A If the patient is experiencing a side effect, is the associated adjunct medication supplied/ordered? No Reviewed with patient pertienent risk factors cross referencing past medical history, history of present illness Yes Patient's goals: Goals/Expected Outcomes Reviewed: Yes Goals Addressed This Visit's Progress Patient's specific desired goal: Goal(s): maintain quality of life as much as possible Measured by: quality of life scale, ability to participate in activities which he enjoys and needs to do Time-frame: to be assessed at approximately the one year point by pharmacy, or sooner if patient asks to discuss Therapy Assessment and Recommendations: Therapy Assessment: Appropriate Therapy: Yes Patient Problems/Needs: s/p resection of brain tumor, now starting chemoradiation On a scale of 1-10, what is the patient's overall confidence in administering this medication(s)?: 9-10 Monitoring requirements for prescribed medication: adherence, side effect monitoring (incl labs CBC, chemistries) Care Plan reviewed and approved by both pharmacist and patient: Yes Did care plan change?: No Medication Therapy Recommendations No medication therapy recommendations to display This is a: New-Start Consult Andrei Egan RPH 08/26/23 10:21 AM documented in this encounter Plan of Treatment Upcoming Encounters Date Type Department Care Team (Late st Contact Info) Description 10/27/2023 11:15 AM EDT Office Visit Palliative Medicine at [place] [address] Elly Alston MD [facility] DR HOSPICE [place] [address] 10/27/2023 1:00 PM EDT Office Visit Speech Therapy at [address] Debra Franco, FIRE HOSE CURER 11/03/2023 2:00 PM EDT Office Visit Speech Therapy at [place] [phone] Debra Franco, FIRE HOSE CURER 11/08/2023 2:30 PM EDT Appointment MRI at [place] [address] Navjot Grider MD [facility] DR [place] [address] 11/09/2023 1:45 PM EDT Office Visit Hematology and Oncology at [place] [address] Isabell Jacob MD [facility] [place] [address] 11/11/2023 10:30 AM EDT Office Visit Radiation Oncology at [place] [address] Nicki Sharpe MD [facility] [place] [address] 11/15/2023 10:00 AM EDT Office Visit Speech Therapy at [place] [phone] Debra Franco, FIRE HOSE CURER 11/16/2023 9:00 AM EDT Office Visit H[place]ology [place] [address] Cyril Bisi W 11/22/2023 10:00 AM EDT Office Visit Speech Therapy [place] [address] Debra Franco, ROLANDO 11/30/2023 9:00 AM EDT Office Visit [place] [address] Bisi Nam 12/14/2023 9:00 AM EDT Office Visit [place] [address] Bisi Nam 12/28/2023 9:00 AM EDT Office Visit [place] [address] Bisi Nam documented as of this encounter Goals Goal Patient Goal Type Associated Problems Recent Progress Patient-Stated? Author Patient's specific desired goal: Patient Facing Action Plan Andrei Lee, [facility] Note: Goal(s): maintain quality of [...] brain documented in this encounter Care Teams Metal Rivet Machine Operator Relationship Specialty Start Date End Date Molina Herr MD [address] [place] [address] PCP - General 01/27/10 documented as of this encounter
--- OUTSIDE RECORDS SUMMARY | 2023-10-17 15:07 | XMS_ITS | Encounter Summary ---
Author Organization [facility] Address [facility] [place] [address] Care Team Providers Care Rn Angiography Name Role Phone Molina Herr MD Primary Care Provider [phone] Reason for Visit * Reason Onset Date Comments Appointment 08/08/2023 Encounter Details Date Type Department Care Team (Late st Contact Info) Description 08/08/2023 Telephone [place] [phone] Michael Lundberg MD [facility] [place] [address] Appointment Social History Tobacco Use Types Packs/Day Years Used Date Smoking Tobacco: Never Smokeless Tobacco: Never Alcohol Use Standard Drinks/Week Comments Not Currently 0 (1 standard drink = 0.6 oz pur e alcohol) nothing in a few months [facility] Utilities Answer Date Recorded In the past 12 months has e electric, gas, oil, or water company threatened to shut off services in your home? No 08/05/2023 Hunger Vital Sign Answer Date Recorded Within the past 12 months, y ou worried that your food would run out before you got the money to buy more. Never true 08/05/19 24 Within the past 12 months, t he food you bought just didn't last and you didn't have money to get more. Never true 08/05/2023 PRAPARE - Transportation Answer Date Re corded In the past 12 months, has l ack of transportation kept you from medical appointments or from getting medications? No 07/07 In the past 12 months, has l ack of transportation kept you from meetings, work, or from getting things needed for daily living? No 08/05/2023 Housing Stability Vital Sign Answer [place] e Recorded In the last 12 months, was t here a time when you were not able to pay the mortgage or rent on time? No 08/05/2023 In the past 12 months, how m any times have you moved where you were living? 1 08/05/2023 At any time in the past 12 m [facility], were you homeless or living in a [place] [facility] [place] facility (including now)? No 08/05/2023 DH IPV Inpatient Questions Answer Date Recorded [...] encounter Miscellaneous Notes * Telephone Encounter - Milady Flores - 08/08/2023 9:48 AM EDT June, patient's partner, called and confirmed appointment for 08/30. June states that the patient is having the guicho removed on 08/15 at his PCP, and if they would like him to wait until 08/30 to please give them a call. * Telephone Encounter - Lauren Sal - 08/08/2023 9:23 AM EDT Images from the original note were not included. Called patient he will call back later to schedule 2 wk HCK. (Please note that 4-6 wk HCK is already scheduled with Tonya Plasencia) [facility] Scheduling Instructions Provider: Nurse, Neurosurgery Visit Type: HCK Appt Notes (copy entirely): 2 wk hck, Staple Removal, S/P Crani for Tumor 08/03 JESSICA No Imaging Imaging appt needed?: None [facility] to ask patient Screening Questions? N/A (DOES NOT APPLY TO XRAY) [facility] to coordinate same day appt with Radiology? N/A (DOES NOT APPLY TO XRAY) Additional Info Needed: Schedule on/around 08/18/23 Update this encounter when patient calls back. ~~~~~~~~~~~~~~~~~~~~~~~~~~~~~~~~ Michael Lundberg MD P [facility] Neurosurgery Hand Ii Cutter Please have patient follow up in 2 weeks for staple removal and in one month for postop follow up with Dr. Dunlap. documented in this encounter Plan of Treatment Upcoming Encounters Date Type Department Care Team (Late st Contact Info) Description 10/27/2023 11:15 AM EDT Office Visit Palliative Medicine at [place] [phone] Elly Alston MD [facility] DR HOSPICE AND [place] [address] 10/27/2023 1:00 PM EDT Office [place] [address] Debra Franco, SWEDGER 11/03/2023 2:00 PM EDT Office [place] [address] Debra Franco, SWEDGER 11/08/2023 2:30 PM EDT Appointment MRI at [place] [phone] Navjot Grider MD [facility] DR HEMATOLOGY [place] [address] 11/09/2023 1:45 PM EDT Office Visit Hematology and Oncology at [place] [phone] Isabell Jacob MD [facility] [place] [address] 11/11/2023 10:30 AM EDT Office Visit Radiation Oncology at [place] [address] Nicki Sharpe MD [facility] [place] [address] 11/15/2023 10:00 AM EDT Office Visit Speech Therapy at [place] [address] Debra Franco, SWEDGER 11/16/2023 9:00 AM EDT Office Visit Hematology and Oncology at [place] [phone] Bisi Nam 11/22/2023 10:00 AM EDT Office Visit Speech Therapy at [place] [phone] Debra Franco, SWEDGER 11/30/2023 9:00 AM EDT Office Visit Hematology [place] [address] Bisi Nam 12/14/2023 9:00 AM EDT Office Visit Hematology [place] [address] Bisi Nam 12/28/2023 9:00 AM EDT Office Visit Hematology and Oncology at [place] [phone] Bisi Nam documented as of this encounter Visit Diagnoses Not on filedocumented in this encounter Care Teams Rn Angiography Relationship Specialty Start Date End Date Molina Herr MD [address] [place] [address] PCP - General 01/27/10 documented as of this encounter
--- OUTSIDE RECORDS SUMMARY | 2023-10-17 15:07 | XMS_ITS | Encounter Summary ---
[place] [address] Care Team Providers Care Cotton Chopper Name Role Phone Molina Herr MD Primary Care Provider [phone] Encounter Details Date Type Department Care Team (Latest Contact Info) Description 08/25/2023 10:20 AM EDT Laboratory Appointment Lab [address]L [place] [address] Glioblastoma of temporal lobe Social History Tobacco [...] from your doctor or pharmacy? Sometimes 08/22/2023 [facility] Utilities Answer Date Recorded In [...] AM EDT Office Visit [place] [address] Elly Alston MD [facility] [address] HOSPICE [place] [address] 10/27/2023 1:00 PM EDT Office [place] [address] Debra Franco, PODIATRY PROFESSOR 11/03/2023 2:00 PM EDT Office Visit Speech Therapy at [address] Debra Franco, PODIATRY PROFESSOR 11/08/2023 2:30 PM EDT Appointment MRI at [place] [address] Navjot Grider MD [facility] [address] [place] [address] 11/09/2023 1:45 PM EDT Office Visit Hematology and Oncology at [place] [address] Isabell Jacob MD [facility] [place] [address] 11/11/2023 10:30 AM EDT Office Visit Radiation Oncology at [address] Nicki Sharpe MD [facility] [place] [address] 11/15/2023 10:00 AM EDT Office Visit Speech Therapy at [place] [phone] Debra Franco, ROLANDO 11/16/2023 9:00 AM EDT Office Visit Hematology [place] [address] Bisi Nam 11/22/2023 10:00 AM EDT Office Visit Speech Therapy at [place] [phone] Debra Franco, ROLANDO 11/30/2023 9:00 AM EDT Office Visit Hematology [place] [address] Bisi Nam 12/14/2023 9:00 AM EDT Office Visit Hematology [place] [address] Bisi Nam 12/28/2023 9:00 AM EDT Office Visit Hematology [place] [address] Bisi Nam documented as of this encounter [...] Priority Date/Time Associated Diagnosis Comments HEMOGRAM Routine 08/25/2023 10:07 AM EDT Glioblastoma of temporal lobe DIFFERENTIAL, AUTOMATED Routine 08/25/2023 10:07 AM EDT [...] 10:07 AM EDT Glioblastoma of temporal lobe documented in this encounter Results * (ABNORMAL) Differential, Automated (08/25/2023 10:07 AM EDT) Neutrophil % 72.5 % [facility] Neutrophil Absolute 4.23 1.70 - 6.10 x10(3)/mc L [facility] Lymph % 12.8 % [facility] Lymphocytes Abs 0.8(L) 0.9 - 3.2 x10(3)/[facility] Monocyte % 8.9 % [facility] Monocyte Abs 0.5 0.3 - 0.9 x10(3)/[facility] Eos % 4.5 % [facility] Eosinophils Abs 0.3 0.0 - 0.4 x10(3)/[facility] Basophil % 0.3 % [facility] Baso Absolute 0.0 0.0 - 0.1 x10(3)/[facility] Immature Gran % 1.00 % [facility] Comment: Immature granulocytes(IG's)percentage and absolute count will include metamyelocytes, myelocytes, and promyelocytes. Blood smears from CBCs yielding IG's will be scanned manually for concordance. If this scan disagrees with the automated IG or if promyelocytes are noted, a manual differential will be performed. Immature Gran Absolute 0.06(H) 0.00 - 0.04 x10(3)/[facility] Blood 08/25/2023 10:0 7 AM EDT 08/25/2023 10:13 AM EDT Narrative Resulting Agency Comment Spec In Lab Belinda ARRINGTON HEMATOLOGY ORDERABLE S [facility] [place] [address] * (ABNORMAL) Hemogram (08/25/2023 10:07 AM EDT) White Blood Cell 5.8 4.0 - 9.5 x10(3)/[facility] Red Blood Cell 3.78(L) 4.58 - 5.54 x10(6)/[facility] Hemoglobin 10.7(L) 13.7 - 16.5 g/dL [facility] Hematocrit 32.4(L) 40.5 - 48.5 % [facility] Mean Cell Volume 85.7 82.9 - 93.1 fL [facility] Mean Cell Hemoglobin 28.3 27.5 - 32.1 pg [facility] Mean Cell Hemoglobin Concentration 33.0 32.0 - 35.7 g/dL [facility] Platelet 202 145 - 357 x10(3)/mc L [facility] RDW Standard Deviation 48.1(H) 36.0 - 45.0 fL [facility] RDW coefficient of variation 15.3(H) 11.4 - 13.8 % [facility] Mean Platelet Volume 8.7 7.6 - 12.9 [facility] NRBC% auto 0.0 % [facility] NRBC Absolute 0.000 0.000 - 0.000 x10(3)/mc L [facility] Blood 08/25/2023 10:0 7 AM EDT 08/25/2023 10:13 AM EDT Narrative Resulting Agency Comment Spec In Lab Belinda ARRINGTON HEMATOLOGY ORDERABLE S [facility] [place] [address] * (ABNORMAL) Comprehensive metabolic panel (non-fasting) (08/25/2023 10:07 AM EDT) Glucose 103 65 - 199 mg/dL [facility] Comment:Diabetes: >=200 mg/d L plus symptoms Blood Urea Nitrogen 22(H) 10 - 20 mg/dL [facility] Creatinine 1.27 0.80 - 1.50 mg/dL [facility] Sodium 138 135 - 145 mmol/L [facility] Potassium 4.5 3.5 - 5.0 mmol/L [facility] Comment: Please note: ??Patients with WBC >100,000 may have falsely elevated Potassium levels. ??For accurate Potassium quantification in these patients send serum separator tube (gold top) for subsequent determinations. ??Contact the Clinical Chemistry Laboratory if there are any questions. Chloride 103 98 - 107 mmol/L [facility] Carbon Dioxide 25 22 - 31 mmol/L [facility] Anion Gap 10 5 - 15 mmol/L [facility] Calcium 9.6 8.5 - 10.5 mg/dL [facility] Protein, Total 6.2 6.1 - 8.0 g/dL [facility] Albumin 3.7 3.2 - 5.2 g/dL [facility] Aspartate Aminotransferase 15 0 - 39 unit/L [facility] Alanine Aminotransferase 15 0 - 55 unit/L [facility] Alkaline Phosphatase 65 40 - 130 unit/L [facility] Bilirubin, Total 0.4 0.2 - 1.3 mg/dL [facility] Est Glomerular Filtration Rate 57(L) >=60 mL/min/1. 73 m?? [facility] Comment: This patient's estimated GFR [...] and symptoms in addition to eGFR. Blood 08/25/2023 10:0 7 AM EDT 08/25/2023 10:13 AM EDT Narrative Resulting Agency Comment Spec In Lab Navjot Grider MD CHEMISTRY ORDERABLES [facility] [place] [address] * Hepatitis B Core Antibody, IgM (08/25/2023 10:07 AM EDT) Hepatitis B Core IgM Negative Negative [facility] Blood 08/25/2023 10:0 7 AM EDT 08/25/2023 10:13 AM EDT Narrative Resulting Agency Comment Spec In Lab Navjot Grider MD CHEMISTRY ORDERABLES [facility] [place] [address] * Hepatitis B Surface Antibody (08/25/2023 10:07 AM EDT) Hepatitis B Surface Antibody, Quantitative <3.5 IU/L [facility] Comment: HepB Surface Ab Quant: Unvaccinated: < 8.5 IU/L Vaccinated: >= 11.5 IU/L Hepatitis B Surface Antibody Negative [facility] Comment: Patient is presumed to be not vaccinated or immune to HBV infection. Expected Results: Vaccinated: Positive Unvaccinated: Negative Blood 08/25/2023 10:0 7 AM EDT 08/25/2023 10:13 AM EDT Narrative Resulting Agency Comment Spec In Lab Navjot Grider MD CHEMISTRY ORDERABLES [facility] [place] [address] * Hepatitis B Surface Antigen (08/25/2023 10:07 AM EDT) Hepatitis B Surface Antigen Negative Negative [facility] Blood 08/25/2023 10:0 7 AM EDT 08/25/2023 10:13 AM EDT Narrative Resulting Agency Comment Spec In Lab Navjot Grider MD CHEMISTRY ORDERABLES [facility] [place] [address] documented in this encounter Visit Diagnoses Diagnosis Glioblastoma of temporal lobe Malignant neoplasm of temporal lobe of brain documented in this encounter Care Teams Cotton Chopper Relationship Specialty Start Date End Date Molina Herr MD [facility] [address] [place] [address] PCP - General 01/27/10 documented as of this encounter
--- OUTSIDE RECORDS SUMMARY | 2023-10-17 15:07 | XMS_ITS | Encounter Summary ---
Author Organization [facility] [place] [address] Care Team Providers Care Prosthodontist Name Role Phone Molina Herr MD Primary Care Provider [phone] Encounter Details Date Type Department Care Team (Latest Contact Info) Description 08/19/2023 Travel Social History Tobacco Use Types Packs/Day [...] from your doctor or pharmacy? Often 08/10/2023 [facility] Utilities Answer Date Recorded In the past 12 months has [facility] [employer], gas, oil, or water [employer] threatened to shut off services in your [...] time in the past [address] [facility], were you homeless or living in a retirement (including now)? No 08/10/2023 IPV Inpatient Questions [...] AM EDT Office [place] [address] Elly Alston MD [facility] DR HOSPICE [place] [address] 10/27/2023 1:00 PM EDT Office [place] [address] Debra Franco, AUDIO VISUAL DIRECTOR 11/03/2023 2:00 PM EDT Office [place] [address] Debra Franco, AUDIO VISUAL DIRECTOR 11/08/2023 2:30 PM EDT Appointment MRI at [place] [address] Navjot Grider MD [facility] DR HEMATOLOGY [place] [address] 11/09/2023 1:45 PM EDT Office Visit Hematology and Oncology at [address] Isabell Jacob MD [facility] [place] [address] 11/11/2023 10:30 AM EDT Office Visit Radiation Oncology at [address] Nicki Sharpe MD [facility] DR [place] [address] 11/15/2023 10:00 AM EDT Office Visit Speech Therapy at [place] [phone] Debra Franco, ROLANDO 11/16/2023 9:00 AM EDT Office Visit Hematology and Oncology at [place] [phone] Bisi Nam 11/22/2023 10:00 AM EDT Office Visit Speech Therapy at [place] [phone] Debra Franco, ROLANDO 11/30/2023 9:00 AM EDT Office Visit Hematology [place] [address] Bisi Nam 12/14/2023 9:00 AM EDT Office Visit Hematology [place] [address] Bisi Nam 12/28/2023 9:00 AM EDT Office Visit [place]ematology [place] [address] Bisi Nam documented as of this encounter Visit Diagnoses Not on filedocumented in this encounter Care Teams Prosthodontist Relationship Specialty Start Date End Date Molina Herr MD [place] [address] [place] [address] PCP - General 01/27/10 documented as of this encounter
--- OUTSIDE RECORDS SUMMARY | 2023-10-17 15:07 | XMS_ITS | Encounter Summary ---
[place] [address] Care Team Providers Care E Business Consultant Name Role Phone Molina Herr MD Primary Care Provider [phone] Encounter Details Date Type Department Care Team (Late st Contact Info) Description 08/29/2023 Telephone [place] [address] Amira Perea Social History Tobacco Use Types [...] from your doctor or pharmacy? Sometimes 08/22/2023 [facility] Utilities Answer Date Recorded [...] any time in the past 12 m [facility], were you homeless or living [...] EDT Office Visit [place] [address] Elly Alston MD [facility] DR HOSPICE [place] [address] 10/27/2023 1:00 PM EDT Office Visit [place] [address] Debra Franco, INSTRUCTIONAL SERVICES SPECIALIST 11/03/2023 2:00 PM EDT Office Visit Speech Therapy at [place] [phone] Debra Franco, INSTRUCTIONAL SERVICES SPECIALIST 11/08/2023 2:30 PM EDT Appointment MRI at [address] Navjot Grider MD [facility] DR [place] [address] 11/09/2023 1:45 PM EDT Office Visit Hematology and Oncology at [address] Isabell Jacob MD [facility] [place] [address] 11/11/2023 10:30 AM EDT Office Visit Radiation Oncology at [address] Nicki Sharpe MD [facility] [place] [address] 11/15/2023 10:00 AM EDT Office Visit Speech Therapy at [place] [phone] Debra Franco, ROLANDO 11/16/2023 9:00 AM EDT Office Visit Hematology [place] [address] Bisi Nam 11/22/2023 10:00 AM EDT Office Visit [place] [address] Debra Franco, ROLANDO 11/30/2023 9:00 AM EDT Office Visit Hematology [place] [address] Bisi Nam 12/14/2023 9:00 AM EDT Office Visit Hematology [place] [address] Bisi Nam 12/28/2023 9:00 AM EDT Office Visit Hematology [place] [address] Bisi Nam documented as of this encounter Goals Goal Patient Goal Type Associated Problems Recent Progress Patient-Stated? Author Patient's specific desired goal: Patient Facing Action Plan Andrei Lee, [facility] Note: Goal(s): maintain quality of life as much as possible Measured by: quality of life scale, ability to participate in activities which he enjoys and needs to do Time-frame: to be assessed at approximately the one year point by pharmacy, or sooner if patient asks to discuss documented as of this encounter Visit Diagnoses Not on filedocumented in this encounter Care Teams E Business Consultant Relationship Specialty Start Date End Date Molina Herr MD [place] [address] [place] [address] PCP - General 01/27/10 documented as of this encounter
--- OUTSIDE RECORDS SUMMARY | 2023-10-17 15:07 | XMS_ITS | Encounter Summary ---
Author Organization [facility] [place] [address] Care Team Providers Care Ball Sorter Name Role Phone Molina Herr MD Primary Care Provider Encounter Details Date Type Department Care Team (Latest Contact Info) Description 08/29/2023 Travel Social History Tobacco Use Types Packs/Day [...] from your doctor or pharmacy? Sometimes 08/22/2023 [facility] Utilities Answer Date Recorded In the past 12 months has [facility] [employer], gas, oil, or water [employer] threatened to shut off services in your [...] any time in the past 12 m [facility], were you homeless or living [...] AM EDT Office Visit [place] [address] Elly Alston MD [facility] DR HOSPICE [place] [address] 10/27/2023 1:00 PM EDT Office Visit [place] [address] Debra Franco, FINANCIAL REPORTING ANALYST 11/03/2023 2:00 PM EDT Office Visit [place] [address] Debra Franco, FINANCIAL REPORTING ANALYST 11/08/2023 2:30 PM EDT Appointment MRI at [place] [address] Navjot Grider MD [facility] DR HEMATOLOGY [place] [address] 11/09/2023 1:45 PM EDT Office Visit Hematology and Oncology at [address] Isabell Jacob MD [facility] [place] [place] [address] 11/11/2023 10:30 AM EDT Office Visit Radiation Oncology at [address] Nicki Sharpe MD [facility] DR [place] [address] 11/15/2023 10:00 AM EDT Office Visit Speech Therapy at [place] [phone] Debra Franco, ROLANDO 11/16/2023 9:00 AM EDT Office Visit Hematology and Oncology at [place] [phone] Bisi Nam 11/22/2023 10:00 AM EDT Office Visit Speech Therapy at [place] [phone] Debra Franco, ROLANDO 11/30/2023 9:00 AM EDT Office Visit Hematology [place] [address] Bisi Nam 12/14/2023 9:00 AM EDT Office Visit Hematology [place] [address] Bisi Nam 12/28/2023 9:00 AM EDT Office Visit Hematology [place] [address] Bisi Nam documented as of this encounter Goals Goal Patient Goal Type Associated Problems Recent Progress Patient-Stated? Author Patient's specific desired goal: Patient Facing Action Plan No Andrei Egan, [facility] [...] on filedocumented in this encounter Care Teams Ball Sorter Relationship Specialty Start Date End Date Molina Herr MD [place] [address] [place] [address] PCP - General 01/27/10 documented as of this encounter
--- OUTSIDE RECORDS SUMMARY | 2023-10-17 15:07 | XMS_ITS | Encounter Summary ---
[place] [address] Care Team Providers Care Smoke Control Supervisor Name Role Phone Molina Herr MD Primary Care Provider [phone] Reason for Visit * Reason Comments Establish Care * Consultation (Routine) - Closed Specialty Diagnoses / Procedures Referred By Contjessie t Referred To Contact Hematology and Oncology Diagnoses Brain tumor Michael Lundberg MD [facility] [place] [address] [facility] [address] [place] [address] Referral ID Status Reason Start Date Expiration Date V isits Requested Visits Authorized [id number] Closed Consult, Test & Treat 08/06/2023 08/05/2024 1 1 Encounter Details Date Type Department Care Team (Late st Contact Info) Description 08/25/2023 8:00 AM EDT Office Visit [place] [address] Navjot Grider MD [facility] H[place]ATOLOG[place] [address] Glioblastoma of temporal lobe (Primary Dx) Social [...] any time in the past 12 m [facility], were you homeless or living in [...] Sign Reading Time Taken Comments Blood Pressure 106/72 08/25/2023 8:06 AM EDT Pulse 101 08/25/2023 8:06 AM EDT Temperature 37 ??C (98.6 ??F) 08/25/2023 8:06 AM EDT Respiratory Rate 17 08/25/2023 8:06 AM EDT Oxygen Saturation 93% 08/25/2023 8:06 AM EDT Inhaled Oxygen Concentration - - Weight 80.1 kg (176 lb 9.4 oz) 08/25/2023 8:06 A M EDT Height 172.7 cm (5' 7.99) 08/25/2023 8:06 AM ED T Body Mass Index 26.86 08/25/2023 8:06 AM EDT documented in this encounter Patient Instructions * Patient Instructions* Belinda Peña PA - 08/25/2023 8:00 AM EDT Recommend concurrent chemoradiation treatment with Temodar X 3 weeks, followed by adjuvant chemotherapy Temodar X 6 months and indefinite Optune Recommend Temodar dose 145 mg.Possible start date 08/30/23. Prescription sent to [facility] pharmacy Recommend radiation dose 40 Calero over 3 weeks concurrent with Temodar. Follow up Radiation oncologyDr Nicki Sharpe. Anti nausea medicine zofran 30 minutes before chemo pills Senna Plus 1-2 tabs twice a day to prevent constipation Recommend weekly blood CBC with differential and CMP every other week while on concurrent chemoradiation treatment. Lab orders placed Keppra 500 mg twice a day. Sent to pharmacy Aspirin 81mg daily Follow up in 2 weeks 2. Antitumor Therapy Schedule: Temozolomide (temodar) is given daily during radiation. It is taken 7 days/week for a total of 21 days. Provider Visits: Once every 2 weeks or more frequent if your provider deems necessary Possible Side Effects include, but are not limited to: ?? Temozolomide (Temodar): The most common potential side effects include: Decrease in blood counts(decrease in white blood cells, red blood cells and platelets, resulting in increased risk of infection, anemia and bleeding), nausea/vomiting, decreased appetite, constipation, fatigue, loss of fertility. Less common side effects include skin rash or itching, worsening liver function, swelling. There is a rare potential for a secondary blood cancer. Medications: the following prescriptions should be picked up before starting treatment ?? Temozolomide 145mg by mouth daily. Take on an empty stomach in the evening. No food 2 hrs beforeor 1+hrs after. Start temodar the night before your first radiation. Take temodar every day, 7 days/week, including holidays or days you miss radiation, while you are receiving radiation. ?? Zofran (ondansetron): 4 mg tablet. Take one hour prior to temodar and every 4 hours as needed for nausea. ?? Ducocate Sodium (Colace): 50-100 mg 1-2x daily as needed for constipation AND/OR ?? Sennokot (Senna): 8.6 mg 1-2x daily as needed for constipation OR Miralax 1-2 x daily ?? Smooth Move tea (Traditional Medicinals), prunes, prune juice as needed Energy Levels / Fatigue: Fatigue can be cumulative, meaning it can become worse with each treatment. It is important to save your energy for the things most important to you Try to stay active, but listen to your body when it is time to rest Safe Handling ?? Store your chemotherapy in a safe, dry place away from children and pets ?? If family members will be handling the chemotherapy they should be wearing gloves. Wash hands immediately after handling. ?? If you are of childbearing age, you should use control during cancer treatment to prevent . ?? 48 to 72 hours after chemotherapy- if having sexual intercourse we recommend using condoms or a barrier method to protect partner against coming into contact with chemotherapy in your body fluids ?? 48 to 72 hours after chemotherapy- caregiver should wear gloves for direct contact with any of your body fluids When to Call: Fever of 100.4 ??F or greater Nausea or vomiting Constipation (No BM x 48 hrs) Breakthrough Seizure Headache Skin changes or rash New or worsening neurologic symptoms Pain, swelling or warmth in the lower extremities Any questions or concerns Please call [phone] if you do not have a bowel movement for 48 hours, any nausea not controlled with the zofran or any other new or worsening symptoms. Thank you. 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 Visit Date He is in good spirits Denies any nausea or vomiting C/o daily headache Denies any focal motor weakness Denies any numbness or tingling Denies any history of seizures Denies any chest pain shortness of breath or leg pain Denies any significant balance/ambulatory dysfunctions Denies any coordination problems Performance status: Karnofsky Performance Status (KPS) 100% [...] falls Psych: denies hallucinations, depression or anxiety PAST MEDICAL HISTORY: Past Medical History: Diagnosis Date Hyperlipidemia Lumbar degenerative disc disease 08/21/2010 Past Surgical History: Procedure Laterality Date PRO ARTHROPLASTY KNEE CONDYLE & PLATEAU MEDIAL & LAT COMPARTMENTS Right 07/05/2023 TOTAL KNEE ARTHROPLASTY (WRVU 19.6) performed by Ernie Fuchs MD at [facility] MAIN OR PRO COLONOSCOPY, BIOPSY 01/10/2013 COLONOSCOPY FLEXIBLE, WITH BX performed by Dominick Earl MD at [facility] ENDOSCOPY PRO COLONOSCOPY, REMV LESN, SNARE N/A 01/12/2018 COLONOSCOPY, POLYPECTOMY, REMOVAL LESION BY SNARE (WRVU 4.67) performed by Guerda Coombs MD at [facility] ENDOSCOPY PRO COLONOSCOPY, REMV LESN, SNARE N/A 01/20/2023 COLONOSCOPY, POLYPECTOMY, REMOVAL LESION BY SNARE (WRVU 4.57) performed by Guerda Coombs MD at [facility] ENDOSCOPY PRO EXCIS SUPRATENT BRAIN TUMOR Left 08/04/2023 @CRANI, FOR TUMOR, SUPRATENTORIAL, NOT MENINGIOMA (WRVU 30.83) performed by Rolly Dunlap MD at [facility] MAIN OR PRO LAP, APPENDECTOMY N/A 03/09/2017 LAPAROSCOPIC APPENDECTOMY (WRVU 9.45) performed by aSurav Chen MD at [facility] MAIN OR PRO MICROSURG TECHNIQUES, REQ OPER MICROSCOPE N/A 08/04/2023 MICROSCOPE USE (WRVU 3.46) performed by Rolly Dunlap MD at [facility] MAIN OR PRO STEREOTACTIC CPTR ASSTD PX CRANIAL, INTRADURAL N/A 08/04/2023 STEREOTACTIC COMPUTER-ASSTD NAVIGATIONAL CRANIAL INTRADURAL (WRVU 3.75) performed by Rolly Dunlap MD at [facility] MAIN OR PRO UPPER GI ENDOSCOPY, DIAGNOSTIC N/A 06/11/2021 EGD, UPPER GI ENDOSCOPY performed by Guerda Coombs MD at [facility] ENDOSCOPY MEDS: acetaminophen, aspirin EC, atorvastatin, fluconazole, levETIRAcetam, levothyroxine, lxdqhblhqlmuc-SR-fnqg, omeprazole, ondansetron, pantoprazole EC, polyethylene glycoL, senna-docusate, temozolomide,traMADoL, and ubiquinone ALLERGY: Allergies Allergen Reactions Penicillins [...] and Sexual Activity Alcohol use: Not Currently Comment: nothing in a few months Drug use: No Sexual activity: Not on file Other Topics Concern Not on file Social History Narrative Maldonado grew up in [place], currently lives in [place] with his significant other June of 13 years.He has a daughter Joan who lives in [place]. His son in 2021; Maldonado is close to his grandson wholives in [place]. 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 Enjoys photography - wants to share his files with his daughter and grandson. Camp up in [facility] on a herring, enjoys sailing with Anali. Loves his Shonda, not able to drive it right now but wants to again! June worked as an color strainer, dance historian, and movement therapist. Social Determinants of Health [...] Intimate Partner Violence: Not At Risk (08/04/2023) DH IPV Inpatient Questions Prevent Contact with Others: [...] 24 hrs: Temp Pulse Resp BP SpO2 08/25/23 0806 37 ??C (98.6 ??F) (!) 101 17 106/72 93 % Physical Examination General : Alert & oriented x 4, no acute distress HEENT : NC, crani site healing nicely, sclera clear, hearing impaired, oropharynx moist and withoutlesions, trachea midline Respiratory : No acute distress. No audible wheezing, on RA, speaking in full sentences Cardiovascular : Regular rate and rhythm, extremities warm and dry Abdomen : Soft, nontender Musculoskeletal : Moves all extremities well Extremities : No pitting edema, no calf tenderness, no erythema Dermatological : No visible rashes or bruising Neurological Alert & oriented x 4. Attention and concentration intact. No discernible memory issues. Speech clear, language with some word-searching and paraphasic error in casual conversation. Able to name objects, repeat phrases and perform simple calculations. Face activates symmetrically, R upper quadranopia, EOMi, gaze conjugate throughout Motor : 5 out of 5 bilateral upper and lower extremities Sensory : Light touch intact throughout No difficult with FNF or heel to packer testing Gait : Normal no significant ambulatory dysfunction LABS: Last wbc, hgb, hct plt Recent Labs 08/25/23 1007 WBC 5.8 HGB 10.7* HCT 32.4* Last 3 LFTs Recent Labs 07/25/23 1623 06/10/23 1252 03/08/23 1155 AST 17 21 19 ALT 15 16 15 ALKPHOS 74 64 70 BILITOT 0.3 0.4 0.6 Surgical path report: DISCUSSION Hematoxylin and eosin [...] B1 GFAP Highlight reactive brain parenchyma B1,B9 [id number] Negative B1 ATRX Retained B1 p53 approximately 5-10% B 1 Ki67 Up to 40% IMAGING STUDIES: We reviewed MRI brain with and without contrast dated 08/19/23, compared it to the 08/05/23 & 07/30/23 and reviewed the official neuro-radiology reports. MRI brain w/s contrast 08/19/23 IMPRESSION Evolution of postsurgical changes. Some enhancement at the deep margin of the resection cavity corresponds to diffusion restriction on the prior study. No new or expanding mass. ASSESSMENT AND PLAN: #1.Left temporal glioblastoma, WHO Grade 4, IDH Wild type, further markers pending Presenting as difficulty with language and performing simple tasks (reading, working cell phone). In further conversation, patient believe this started late winter, prior to knee surgery.. Gross resection on 08/04/23 Currently with subtle language difficulties in casual conversation and worsening hearing on the left. #2. Vasogenic edema - secondary to above. Will continue Keppra due to area being highly eleptogenic. Discussed that theswelling takes 4-6wks to go down but radiation will likely irritate brain tissue as well. Recommendation: Plan to start temozolamide 145mg nightly and radiation on 08/30/[address] Grider will reach out to radiation oncology to discuss 3wks vs 6wks of treatment. Discussed side effects of this med. Will prescribe zofran and senna for potential nausea and constipation. Continue Keppra as prescribed, ok to go back to asa 81mg and dc protonix Rx for zofran, Keppra, senna, temodar sent to pharmacy Will order labs for today CBC, CMP and hepB to get baseline with plan for weekly CBCs x 4wks and biweekly cmps x 4wks Plan to obtain MRI brain every 2 mths Follow up in person in 2wks, info routed to ice cream dipper Patient and partner encouraged to contact office [...] any of these should occur. I spent 50 minutes with this patient, with greater than 50% of the time was spent in counseling andcoordination of care MURPHY [place] * Navjot Grider MD - 08/25/2023 8:00 AM EDT Patient was evaluated with MOMO Peña. I personally evaluated patient, examined the patient, reviewed medical records, reviewed multiple MRI scans and discuss treatment options. I agree with documentation by MOMO Cardoso except documented below. Assessment/plan Impression #1. Left temporal Glioblastoma, WHO [...] temporo contrast-enhancing mass by Dr Dunlap at [facility] and post-operative MRI brain dated 08/05/23 suggestive small residual contrast enhancing nodule in the left mesial temporal lobe. Reviewed final pathology report ; suggestive Left Temporal Glioblastoma, WHO grade 4, IDH negative.Ki-67 index 40%. Molecular results especially MGMT results are pending. Today presents to neuro-oncology clinic to discuss pathology and treatment plan 08/25/23 Clinically Postoperatively he reports he is doing well. There is significant interval improvement in his aphasia. He was able to name words, comprehension good except mild hard of hearing especially left ear, interval resolution of visual hallucination and able to engage in his care as well. No focal neurological deficits neurological examination unremarkable except right upper superior quadrant visual deficit. KPS 80-90 He has been evaluated by radiation oncology at [facility] Dr. Nicki Sharpe. Appreciate Today I discussed his final diagnosis of left temporal glioblastoma, WHO grade 4. I provided extensive education regarding primary brain tumors followed by gliomas in general and then focused discussion on high-grade glioma especially glioblastoma. I discussed the aggressive nature of glioblastoma specialist tendency to recur in spite of maximum treatment. I discussed standard treatment options including maximum safe surgical resection which he already had followed by concurrent chemoradiation treatment with Temodar. I discussed standard 6 weeks of concurrent chemoradiation treatment Vs fractionated IMRT course 3 weeks concurrent with Temodar . I discussed literature/research data regardingsame and would recommend 3 weeks of hypofractionated IMRT concurrent with chemotherapy Temodar thenfollowed by adjuvant chemotherapy with Temodar for 6 months and indefinite Optune. I discussed roleof molecular mutation MGMT as prognostic marker which is pending. I briefly discussed locally available clinical trials and especially answered multiple questions related to immunotherapy and national available clinical trials If tumor reoccurs in future then clinical trials options can be explored. Patient clearly consented for the treatment verbally Recommend hypofractionated IMRT concurrent chemoradiation treatment with Temodar X 3 weeks followedby adjuvant chemotherapy Temodar X 6 months and indefinite Optune Recommend Temodar dose 75 mg/m?? based on BSA of 1.96 calculated dose 147 mg and rounded off to 145mg. Tentative start Date 08/30/23 Recommend radiation dose 60 Calero over 6 weeks concurrent with Temodar. Radiation oncology Dr Nicki Sharpe on board. ChemoEducation Chemo education was provided for temozolomide I discussed the role of temozolomide in glioblastoma I discussed it will be concurrent chemoradiation treatment for 6-weeks followed by adjuvant chemotherapy 5/28-day regimen for 6 months I discussed the side effects including nausea, vomiting, constipation, pancytopenia including neutropenia and thrombocytopenia, liver dysfunction and rare skin rash I discussed the importance of having follow-up lab work while on chemotherapy I recommend taking Temodar at bedtime and empty stomach at least 2 hours after food Recommend Zofran 30 minutes before chemotherapy and if you do not have a significant nausea and vomiting minimize use of Zofran Recommend senna plus, high-fiber diet and generous fluid intake for possible constipation I discussed regarding effect of temozolomide on fertility. Recommend using barrier method of contraception as well I instructed her to call me if they develop any unusual symptoms after starting chemotherapy Verbal education were provided in the clinic as well as multiple questions were answered to satisfaction and education material was provided for review Teach back education method was used for chemo education Patient verbalized understanding. Multiple questions were answered. He gave verbal consent for chemotherapy RECOMMENDATIONS Recommend concurrent chemoradiation treatment with Temodar X 3 weeks followed by adjuvant chemotherapy Temodar X 6 months and indefinite Optune Recommend Temodar dose 75 mg/m?? based on BSA of 1.96 rounded off dose 145 mg.Possible start date 08/30/23. Prescription sent to [facility] pharmacy Recommend hypofractionated radiation course ; radiation dose 40 Calero over 3 weeks concurrent with Temodar. Follow up Radiation oncology Dr Nicki Sharpe. Recommend weekly CBC with differential and CMP every other week while on concurrent chemoradiation treatment. Lab orders placed Follow molecular test results especially MGMT, which is pending. Continue Keppra 500 mg BID Go to [employer]pi website and read about Touchbase TO MAKE DECISION FOR SAME Follow up in 2 weeks Please call [...] understanding. Time spent in coordinating care, reviewing medical records, reviewing MRI scans, reviewing data, discussing treatment options, formulating treatment plan and education is excess of 90 minutes * Malgorzata Reynoso RN - 08/25/2023 8:00 AM EDT Oral Chemotherapy Check Note 08/30/2023 Perfecto Polk, 1940 Prescriptions for oral chemotherapy were reviewed as follows: Oral Chemotherapy Order temodar: Order details: Dose: 145 mg Route: Oral Quantity to be dispensed #: # 21-140 mg and # 21-5 mg Number of refills: 0 Instructions: Take 145 mg by mouth once daily while on concurrent therapy. Take on empty stomach Cycle number and length: Concurrent, 3 weeks Start date: first day of radiation, 08/29 Plan of care compared to information in the medical record, including note from provider on 08/24 (date). The prescription was found To be complete and accurate. It was e-prescribed to pharmacy. documented in this encounter Plan of Treatment Upcoming Encounters Date Type Department Care Team (Late st Contact Info) Description 10/27/2023 11:15 AM EDT Office Visit Palliative Medicine at [place] [phone] Elly Alston MD [facility] HOSPICE AND [place] [address] 10/27/2023 1:00 PM EDT Office Visit Speech Therapy at [place] [phone] Debra Franco, SUPERVISOR PROP [employer]KING 11/03/2023 2:00 PM EDT Office [place] [phone] Debra Franco, [employer] 11/08/2023 2:30 PM EDT Appointment MRI at [place] [phone] Navjot Grider MD [facility] DR HEMATOLOGY [place] [address] 11/09/2023 1:45 PM EDT Office Visit Hematology and Oncology at [place] [phone] Isabell Jacob MD [facility] [place] [address] 11/11/2023 10:30 AM EDT Office Visit Radiation Oncology at [place] [phone] Nicki Sharpe MD [facility] [place] [address] 11/15/2023 10:00 AM EDT Office [place] [address] Debra Franco, SUPER[employer] 11/16/2023 9:00 AM EDT Office Visit H[place]ology [place] [address] Bisi Nam 11/22/2023 10:00 AM EDT Office [place] [phone] Debra Franco, SUPERVIS[employer] 11/30/2023 9:00 AM EDT Office Visit [place]ology [place] [address] Bisi Nam 12/14/2023 9:00 AM EDT Office Visit [place]ology [place] [address] Bisi Nam 12/28/2023 9:00 AM EDT Office Visit [place]ology [place] [address] Bisi Nam documented as of this encounter Goals Goal Patient Goal Type Associated Problems Recent Progress Patient-Stated? Author Patient's specific desired goal: Patient Facing Action Plan Andrei Lee, [facility] Note: Goal(s): maintain quality of life as much as possible Measured by: quality of life scale, ability to participate in activities which he enjoys and needs to do Time-frame: to be assessed at approximately the one year point by pharmacy, or sooner if patient asks to discuss documented as of this encounter Results * Hepatitis B Surface Antigen (08/25/2023 10:07 AM EDT) Hepatitis B Surface Antigen Negative Negative [facility] Blood 08/25/2023 10:0 7 AM EDT 08/25/2023 10:13 AM EDT Narrative Resulting Agency Comment Spec In Lab Navjot Grider MD CHEMISTRY ORDERABLES Performing Organization Address [facility] Co de Phone Number [facility] [place] [address] * Hepatitis B Surface Antibody (08/25/2023 10:07 AM EDT) Hepatitis B Surface Antibody, Quantitative <3.5 IU/L [facility] Comment: HepB Surface Ab Quant: Unvaccinated: < 8.5 IU/L Vaccinated: >= 11.5 IU/L Hepatitis B Surface Antibody Negative [facility] Comment: Patient is presumed to be not vaccinated or immune to HBV infection. Expected Results: Vaccinated: Positive Unvaccinated: Negative Blood 08/25/2023 10:0 7 AM EDT 08/25/2023 10:13 AM EDT Narrative Resulting Agency Comment Spec In Lab Navjot Grider MD CHEMISTRY ORDERABLES Performing Organization Address [facility] Co de Phone Number [facility] [place] [address] * Hepatitis B Core Antibody, IgM (08/25/2023 10:07 AM EDT) Hepatitis B Core IgM Negative Negative [facility] Blood 08/25/2023 10:0 7 AM EDT 08/25/2023 10:13 AM EDT Narrative Resulting Agency Comment Spec In Lab Navjot Grider MD CHEMISTRY ORDERABLES [facility] [place] [address] * (ABNORMAL) Comprehensive metabolic panel (non-fasting) (08/25/2023 10:07 AM EDT) Glucose 103 65 - 199 mg/dL [facility] Comment:Diabetes: >=200 mg/d L plus symptoms Blood Urea Nitrogen 22(H) 10 - 20 mg/dL [facility] Creatinine 1.27 0.80 - 1.50 mg/dL [facility] Sodium 138 135 - 145 mmol/L [facility] Potassium 4.5 3.5 - 5.0 mmol/L [facility] Comment: Please note: ??Patients with WBC >100,000 may have falsely elevated Potassium levels. ??For accurate Potassium quantification in these patients send serum separator tube (gold top) for subsequent determinations. ??Contact the Clinical Chemistry Laboratory if there are any questions. Chloride 103 98 - 107 mmol/L [facility] Carbon Dioxide 25 22 - 31 mmol/L [facility] Anion Gap 10 5 - 15 mmol/L [facility] Calcium 9.6 8.5 - 10.5 mg/dL [facility] Protein, Total 6.2 6.1 - 8.0 g/dL [facility] Albumin 3.7 3.2 - 5.2 g/dL [facility] Aspartate Aminotransferase 15 0 - 39 unit/L [facility] Alanine Aminotransferase 15 0 - 55 unit/L [facility] Alkaline Phosphatase 65 40 - 130 unit/L [facility] Bilirubin, Total 0.4 0.2 - 1.3 mg/dL [facility] Est Glomerular Filtration Rate 57(L) >=60 mL/min/1. 73 m?? [facility] [...] MD CHEMISTRY ORDERABLES [facility] [place] [place] [address] documented in this encounter Visit Diagnoses Diagnosis Glioblastoma of temporal lobe- Primary Malignant neoplasm of temporal lobe of brain documented in this encounter Care Teams Smoke Control Supervisor Relationship Specialty Start Date End Date Molina Herr MD [address] [place] [address] PCP - General 01/27/10 documented as of this encounter
--- OUTSIDE RECORDS SUMMARY | 2023-10-17 15:07 | XMS_ITS | Encounter Summary ---
Author Organization [facility] [address] Care Team Providers Care Hand Bookbinder Name Role Phone Molina Herr MD Primary Care Provider [phone] Encounter Details Date Type Department Care Team (Latest Contact Info) Description 08/12/2023 Travel Social History Tobacco Use Types Packs/Day [...] from your doctor or pharmacy? Often 08/10/2023 [facility] Utilities Answer Date Recorded In the past 12 months has [facility] [employer], gas, oil, or water [employer] threatened to shut off services in your [...] in a skilled nursing (including now)? No 08/10/2023 IPV Inpatient Questions [...] AM EDT Office [place] [address] Elly Alston MD [facility] HOSPICE AND P[place] [address] 10/27/2023 1:00 PM EDT Office [place] [address] Debra Franco, SENIOR CYTOGENETIC TECHNOLOGIST 11/03/2023 2:00 PM EDT Office [place] [address] Debra Franco, SENIOR CYTOGENETIC TECHNOLOGIST 11/08/2023 2:30 PM EDT Appointment MRI at [place] [address] Navjot Grider MD [facility] [address] H[place] [address] 11/09/2023 1:45 PM EDT Office Visit Hematology and Oncology at [address] Isabell Jacob MD [facility] [place] [address] 11/11/2023 10:30 AM EDT Office Visit Radiation Oncology at [address] Nicki Sharpe MD [facility] [place] [address] 11/15/2023 10:00 AM EDT Office Visit Speech Therapy at [place] [phone] Debra Franco, ROLANOD 11/16/2023 9:00 AM EDT Office Visit Hematology and Oncology at [place] [phone] Bisi Nam 11/22/2023 10:00 AM EDT Office Visit Speech Therapy at [place] [phone] Debra Franco, ROLANDO 11/30/2023 9:00 AM EDT Office Visit Hematology [place] [address] Bisi Nam 12/14/2023 9:00 AM EDT Office Visit Hematology [place] [address] Bisi Nam 12/28/2023 9:00 AM EDT Office Visit Hematology [place] [address] Bisi Nam documented as of this encounter Visit Diagnoses Not on filedocumented in this encounter Care Teams Hand Bookbinder Relationship Specialty Start Date End Date Molina Herr MD [address] [place] [address] PCP - General 01/27/10 documented as of this encounter
--- OUTSIDE RECORDS SUMMARY | 2023-10-17 15:07 | XMS_ITS | Encounter Summary ---
Author Organization [facility] [place] [address] Care Team Providers Care Rubber Mill Operator Name Role Phone Molina Herr MD Primary Care Provider [phone] Reason for Visit * Consultation (Urgent) - Closed Specialty Diagnoses / Procedures Referred By Flo viveros Referred To Contact Palliative Care Diagnoses Brain tumor Nicki Sharpe MD [facility] [place] [address] [facility] Palliative Med [address] [place] [address] Referral ID Status Reason Start Date Expiration Date V isits Requested Visits Authorized [id number] Closed Consult, Test & Treat 08/12/2023 08/11/2024 1 1 Encounter Details Date Type Department Care Team (Late st Contact Info) Description 08/19/2023 1:00 PM EDT Office [place] [address] Elly Alston MD [facility] DR HOSPICE [place] [address] Brain tumor; Palliative care encounter Social History Tobacco Use [...] from your doctor or pharmacy? Often 08/10/2023 [facility] Utilities Answer Date Recorded In the [...] living in a chcf (including now)? No 08/10/2023 [facility] IPV Inpatient [...] Progress Notes * Elly Alston MD - 08/19/2023 1:00 PM EDT Outpatient Palliative Medicine Initial Consult Patient: Perfecto Polk : 1940 Date: 08/19/2023 Referring Provider: Nicki Sharpe MD Primary Specialist(s): Nicki Sharpe MD; Rolly Dunlap MD Primary Care Provider: Molina Herr MD ID: Perfecto Polk IFrank s a 82 y.o. 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 The Palliative Medicine team is asked by Nicki Sharpe to consult for assistance with coping with serious illness and advance care planning. He is accompanied by his significantother Anali at this visit in . HPI: Mr. Polk has a past medical history significant for carotid stenosis on aspirin and osteoarthritis; he was in his usual state of health until last month, when he developed memory and word finding difficulties. He was [place] [facility] 07[place] and underwent craniotomy 08/03. He has been referred to Radiation Oncology, with treatment planning ongoing, and Medical Oncology, with a consult scheduled for . PRE-VISIT QUESTIONNAIRE RESPONSES: Answers submitted by the patient for this visit: Pre-Visit Health Questionnaire (Submitted on 08/17/2023) Completed pt questionnaire: Patient & Imagery Intelligence Top Concerns: Communication issue, Planning ahead issue Communication concerns: Clarity, Brevity, Finding words Planning ahead concerns: What will the next 3-9 months bring to me, How long does it take to complete the planning process Going well in the last week: Being at home , Less troubling symptoms , Visits with friends and family Distress: 2 Issues causing distress: Waiting for a definite treatment plan Pain: 2 Tiredness: 4 Drowsiness: 0 Nausea: 0 Lack of Appetite: 0 Shortness of Breath: 0 Depression: 0 Anxiety: 0 [employer] Other problem: 0 BM in last 48 hrs: Yes (Submitted on 08/17/2023) Relationship to PRIMARY health care legal assistant: Spouse or partner Imagery Intelligence Availability: Yes Imagery Intelligence's Name: Ella Mohamud Relationship to patient: Spouse or partner Imagery Intelligence's Top Concerns: Your loved one's everyday issue, Planning ahead issue My loved one's everyday concerns: Trouble finding words ,easily mentally exhausted , loss of prefered pleasures like reading Planning ahead concerns: Witnessing him make difficult decisions regarding his future. Trying to sensibly plsn our future which we are aware may be short. Going well in the last week: Great doctors. Lots of family and friends checking in. Getting some tasks accomplished. Having some laughs. What Matters Most (Imagery Intelligence): We REALLY need to understand 1) all the likely side effects of his choice of treatments, and also 2) have a realistic picture of what life is likely to be like as THIS cancer progresses in his brain. Distress Level: 2 Issues causing distress: Noticing my own stress level decreases my thinking capacity and drains my energy SYMPTOM ISSUES: Since surgery can read better Develped visiual field defect postoperatively - referred to ophtho Still struggling with word-finding at times Functional assessment: PPS 80 - able to do household tasks, unable to drive currently, which is a loss SOCIAL CONCERNS: (08/19/23) - he describes initial distress at [...] Social History Narrative Maldonado grew up in [place], currently lives in [facility] with his significant other June of 13 years.He has a daughter Joan who lives in [place]. His son in 2021; Maldonado is close to his grandson wholives in [place]. 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 Enjoys photography - wants to share his files with his daughter and grandson. Camp up in [facility] on a herring, enjoys sailing with Anali. Loves his Shonda, not able to drive it right now but wants to again! June worked as an corporate trainer, director of vocational guidance, and movement therapist. PMH: Patient Active Problem List Diagnosis Brain tumor Total knee replacement status Acute appendicitis Primary osteoarthritis of left knee (DJD) Osteomyelitis Discitis of lumbar region Lumbar degenerative disc disease MEDICATIONS: Current Outpatient Medications on File Prior to Visit Medication Sig Dispense Refill aspirin EC 81 mg EC (DR) tablet Take 1 tablet by mouth 2 times daily. 60 tablet 0 dexAMETHasone (Decadron) 1 mg tablet Take 4 tablets by mouth every 6 hours for 3 days, THEN 4 tablets 2 times daily for 3 days, THEN 2 tablets 2 times daily for 3 days, THEN 1 tablet 2 times daily for 3 days, THEN 1 tablet daily for 3 days. 93 tablet 0 polyethylene glycoL (Miralax) 17 gram/dose [...] times daily as needed for Constipation. PRN) celecoxib (CeleBREX) 200 mg capsule Take 1 capsule by mouth 2 times daily for 42 doses. 30 capsule 1 acetaminophen (Tylenol) 650 mg/20.3 mL Solution Take [...] Take 20 mg by mouth daily. 4 pqwsimjqaijof-JC-ntfz (SOURCE CF) 200-10 mcg-mg Chew Take 1 tablet by mouth daily. levothyroxine (SYNTHROID) 25 mcg tablet 25MCG = 1 Tablet(s), PO, Once daily atorvastatin (LIPITOR) 10 mg tablet Take 20 mg by mouth. Current Facility-Administered Medications on File Prior to Visit Medication Dose Route Frequency Provider Last Rate Last Admin gadoterate meglumine (Dotarem) (0.5 mMol/mL) injection solution 0-100 mL 0-100 mL Intravenous Once PRN Laisha Peters MD ALLERGIES: Allergies Allergen Reactions Penicillins Hives PAT Penicillin Allergy Risk Assessment 06/13/2023: Low risk penicillin allergy. OK to receive full dose of cefazolin, cefuroxime, or any 3rd or 4th+ generation cephalosporin. FHX: family history includes Cancer in his brother. PHYSICAL EXAMINATION Vitals Flowsheet Row Ancillary Appointment from 08/19/2023 in Rad[place] Oncology [place] [facility] Heart Rate 72 Heart Rate Source Right, Radial Resp 16 BP 122/64 BP Location Right arm Patient Position Sitting Karnofsky Score 100 On exam, he is robust-appearing, walks without assistance. Affect is warm, engaging. Participates actively in the visit with some word-finding difficulties, and short-term memory challenges - his significant other helped to fill in some details. LABS: No results found for this or [...] high grade L temporal glioma s/p resection, starting RT soon and meeting with medical oncology next week. He and his significant other have a good understanding of his condition, treatment options, and likely side effects. His goals and values are thoroughly detailed in a scanned in advance directive, and today we further explored what his critical abilities are - what are the things he needs to be able to do to say that life is worth living, which are detailed in an advance care planning note. They know that part of my role in his care can be to help them think through what he is/isn't willing to go through, as he learns more about his treatment options and those treatments get underway. I also explored his health care legal assistant June's wellbeing and provided information about resources for hersupport, such as [email or web address] and our clinic's social services manager. Follow-Up: with me 09/18 Telehealth: not now Palliative continuity provider(s): Alecia Thank you for this consultation. The palliative care team will follow the patient and family with you. I reviewed all pertinent portions of the medical record including notes, and results of studies. 1.5 hours of this 1.5 hours visit spent counseling patient and/or family regarding goals of care and coping with serious illness. ELLY ALSTON MD documented in this encounter Miscellaneous Notes * ACP (Advance Care Planning) - Elly Alston MD - 08/19/2023 1:00 PM EDT Serious Illness Conversation Date of Conversation: 08/19/2023 Discussion with: Patient + Agent/Surrogate Understanding of illness: They removed a glioblastoma from my brain. It can be treated with radiation and chemotherapy to attack any remaining cancer that was left behind. Radiation attacks cancer surrounding where they cut it out. Chemo is to inhibit growth of cancerthat may have spread elsewhere in the brain. RT to start at the end of August, knows this will make him tired Many people live a year with this. If you're waldo, 10% of people my age live for 5 years with it Information preferences: All available information, including time-based prognosis Understands that there are statistcis but they may not apply to him - wishes he could know what specifically might happen with him Is there a way to know if the cancer is growing despite the treatment? Prognostic information given: Goals: Want to be loving to family, enjoy their presence, sustain good QOL as long as possible Fears and worries: Strengths: Critical abilities: He needs to be able to feel part of what's around me, can engage with people and my life, enjoy nature, food, loved ones. Want to be a voice with other people: able to listen, offer advice, know people as they are Trade-offs: Will want help thinking about when to draw a line - when to stop life prolonging therapies. They know we can talk about this as time goes on. Family/Agent/Surrogate awareness: DPOA/Surrogate present for discussion Recommendations made: Will continue to explore over coming visits as he learns more about his cancer and sees how treatment goes. ELLY ALSTON MD documented in this encounter Plan of Treatment Upcoming Encounters Date Type Department Care Team (Late st Contact Info) Description 10/27/2023 11:15 AM EDT Office [place] [address] Elly Alston MD [facility] [address] HOSPICE [place] [address] 10/27/2023 1:00 PM EDT Office [place] [address] Debra Franco, AUTOMOTIVE DESIGNER 11/03/2023 2:00 PM EDT Office [place] [address] Debra Franco AUTOMOTIVE DESIGNER 11/08/2023 2:30 PM EDT Appointment MRI at [address] Navjot Grider MD [facility] DR HEMATOLOGY [place] [address] 11/09/2023 1:45 PM EDT Office Visit Hematology and Oncology at [address] Isabell Jacob MD [facility] [place] [address] 11/11/2023 10:30 AM EDT Office Visit Radiation Oncology at [place] [phone] Nicki Sharpe MD [facility] [place] [address] 11/15/2023 10:00 AM EDT Office [place] [address] Debra Franco SLP 11/16/2023 9:00 AM EDT Office Visit Hematology [place] [address] Bisi Nam 11/22/2023 10:00 AM EDT Office [place] [address] Debra Franco SLP 11/30/2023 9:00 AM EDT Office Visit Hematology [place] [address] Bisi Nam 12/14/2023 9:00 AM EDT Office Visit Hematology [place] [address] Bisi Nam 12/28/2023 9:00 AM EDT Office Visit Hematology [place] [address] Bisi Nam Scheduled Referrals Name Type Priority Associated Diagnoses Order Schedule Referral to Palliative Care Outpatient Referral Urgent Brain tumor Ordered: 08/12/2023 documented as of this encounter Visit Diagnoses Diagnosis Brain tumor Neoplasm of unspecified nature of brain Palliative care encounter Encounter for palliative care documented in this encounter Care Teams Rubber Mill Operator Relationship Specialty Start Date End Date Molina Herr MD [address] [place] [address] PCP - General 01/27/10 documented as of this encounter
--- OUTSIDE RECORDS SUMMARY | 2023-10-17 15:07 | XMS_ITS | Encounter Summary ---
[place] [address] Care Team Providers Care Continuous Crusher Operator Name Role Phone Molina Herr MD Primary Care Provider [phone] Reason for Visit * Consultation (Routine) - Authorized Specialty Diagnoses / Procedures Referred By Flo viveros Referred To Contact Radiation Oncology Diagnoses Brain tumor Procedures Simulation for Radiation Therapy Planning Nicki Sharpe MD [facility] [place] [address] [facility] [place] [address] Referral ID Status Reason Start Date Expiration Date Visits Requested Visits Authorized [id number] Authorized Consult, Test & Treat 08/12/2023 08/11/2024 30 60 Encounter Details Date Type Department Care Team (Late st Contact Info) Description 08/19/2023 11:00 AM EDT Ancillary Appointment [place] [address] Nicki Sharpe MD [facility] [place] [address] Brain tumor Social History Tobacco [...] from your doctor or pharmacy? Sometimes 08/22/2023 [facility] Utilities Answer Date Recorded In [...] time in the past 12 m [facility], were you homeless or living in [...] Sign Reading Time Taken Comments Blood Pressure 122/64 08/19/2023 10:32 AM EDT Pulse 72 08/19/2023 10:32 AM EDT Temperature - - Respiratory Rate 16 08/19/2023 10:32 AM EDT Oxygen Saturation - - Inhaled Oxygen Concentration - - Weight - - Height - - Body Mass Index - - documented in this encounter Progress Notes * Tanya Dwyer RN - 08/19/2023 11:00 AM EDT Section of Radiation Oncology Contrast Information Safety Questions 1. Has the patient ever had an x-ray study before which involved injection of a contrast agent or x-ray dye? yes If yes, did the patient have any reaction to the injection? no If yes, please describe the reaction: n/a 2. Is the patient allergic to any foods, medicines, or other substances? yes Allergies Allergen Reactions [facility]icillins [facility] Penicillin Allergy Risk Assessment 06/13/2023: Low risk penicillin allergy. OK to receive full dose of cefazolin, cefuroxime, or any 3rd or 4th+ generation cephalosporin. 3. Has the patient received any contrast within the past 48 hours? yes MRI today 4. Does the patient have any procedures scheduled in the next 48 hours? no 5. Does the patient have a history of renal/kidney problems or kidney surgery? no 6. Does the patient have diabetes? no 7. Does the patient have high blood pressure? no 8. Is the patient currently being treated for gout? no 9. If the answer to any of the questions #5-8 was yes, has the patient had a creatinine level and eGFR drawn within the past 45 days? yes Lab Results Component Value Date CREATININE 1.04 08/07/2023 If no, when will it be drawn? N/a A creatinine less than or equal to 1.6 and a eGFR of 45 or greater OK; to proceed with IV contrast. If the creatinine is greater than 1.6 and the eGFR is less than 45, consult with the ordering provider. If an eGFR is less than 30, IV contrast should not be administered and another contrast agent may be ordered by the provider (Visipaque). 10. Is the patient currently taking any of the following medications? (Actoplus Met, Avandamet, Glucovance, Janumet, Jendadueto, Kombiglyze, Metaglip, PrandiMet, Glugophage, Glumetza, Riomet, Metformin) [x} No If yes, when was last dose taken? N/a 9. If patient is on any of the medications in question #10, consult with the ordering provider if the patient needs to stop the medication and if they will require further lab studies. Answers submitted by the patient for this visit: (Submitted on 08/18/2023) Distress: 2 * Nicki Sharpe MD - 08/19/2023 11:00 AM EDT Images from the original note were not included. [facility] Radiation Oncology Radiation Oncology Simulation/Treatment Planning Note nPatient identifiers/demographics: Name: Perfecto Polk Date of : 1940 Chief complaint/reason for visit: Simulation for treatment planning nCT simulation was performed with the following parameters: Simulation for radiation therapy planning for treatment was performed in the radiation oncology department. The technical details of the simulation are available in the radiation oncology EMR ([employer]ria) upon request. Perfecto Polk tolerated the planning procedure with no problems. Treatment planning will being shortly. Nicki Sharpe MD , PhD [facility] Radiation Oncology National Cancer [place] (NCI) [facility] [employer] Commission on Cancer (ACS [place]) Accredited Cancer Program [employer] (ACR) Accredited Radiation Oncology Program documented in this encounter Plan of Treatment Upcoming Encounters Date Type Department Care Team (Late st Contact Info) Description 10/27/2023 11:15 AM EDT Office Visit [place] [address] Elly Alston MD [facility] DR HOSPICE [place] [address] 10/27/2023 1:00 PM EDT Office Visit Speech Therapy at [place] [phone] Debra Franco, PLANER OFFBEARER 11/03/2023 2:00 PM EDT Office [place] [address] Debra Franco, PLANER OFFBEARER 11/08/2023 2:30 PM EDT Appointment MRI at [facility], [phone] Navjot Grider MD [facility] DR [place] [address] 11/09/2023 1:45 PM EDT Office Visit Hematology and Oncology at [place] [phone] Isabell Jacob MD [facility] [place] [address] 11/11/2023 10:30 AM EDT Office Visit Radiation Oncology at [place] [phone] Nicki Sharpe MD [facility] [place] [address] 11/15/2023 10:00 AM EDT Office [place] [address] Debra Franco, PLANER OFFBEARER 11/16/2023 9:00 AM EDT Office Visit Hematology [place] [address] Bisi Nam 11/22/2023 10:00 AM EDT Office [place] [address] Debra Franco, ROLANDO 11/30/2023 9:00 AM EDT Office Visit Hematology [place] [address] Bisi Nam 12/14/2023 9:00 AM EDT Office Visit Hematology [place] [address] Bisi Nam 12/28/2023 9:00 AM EDT Office Visit Hematology [place] [address] Bisi Nam documented as of this encounter [...] brain documented in this encounter Care Teams Continuous Crusher Operator Relationship Specialty Start Date End Date Molina Herr MD [address] [place] [address] PCP - General 01/27/10 documented as of this encounter
--- OUTSIDE RECORDS SUMMARY | 2023-10-17 15:07 | XMS_ITS | Encounter Summary ---
Author Organization [place] [address] Care Team Providers Care Manager Business Process Name Role Phone Molina Herr MD Primary Care Provider [phone] Reason for Visit * Reason Onset Date Comments Prior Authorization 08/25/2023 Molecular ca ncer testing CPTs 43990, 62860 and 40341 are covered benefits. Encounter Details Date Type Department Care Team (Late st Contact Info) Description 08/25/2023 Telephone [place] [address] Korin Llamas Prior Authorization (Molecular cancer testing CPTs 24819, 26051 and 10783 are covered benefits. ) Social History Tobacco Use Types Packs/Day Years [...] from your doctor or pharmacy? Sometimes 08/22/2023 [facility] Utilities Answer Date Recorded In the [...] in the past [address] [facility], were you homeless or living in [...] encounter Miscellaneous Notes * Telephone Encounter - Korin Llamas - 08/25/2023 10:56 AM EDTSumlaura: Molecular cancer testing CPTs 44795, 63623 and 01355 are covered benefits. NO PATIENT ACTION NEEED_VOICEMAIL OR AUTHORIZATION_INFORMATIONAL ONLY Molecular cancer testing: CPTs 57721, 85229 and 13033 are covered benefits: E- mail from Yadi in [employer] ([id number]) requesting coverage review for CPT 33372j7, 02827 and 35349 being done on the patient???s brain cancer tissue obtained on 08/04/23. [id number]: CPTs 95024L (Mg Glioma), 35195 and 78853. 2) [phone]: CPT 39490Q (Solid tumor NGS Extended Panel). Ordering provider: Rolly Dunlap MD. [facility] is returning the patient's traditional Medicare A&B policy and secondary AARP as active. Per Medicare's website, CPTs 15438, 79929 and 59142 are covered with no authorization needed. Will update Yadi to let her know of approved coverage. documented in this encounter Plan of Treatment Upcoming Encounters Date Type Department Care Team (Late st Contact Info) Description 10/27/2023 11:15 AM EDT Office Visit Palliative Medicine at [place] [phone] Elly Alston MD [facility] [address] HOSPICE [place] [address] 10/27/2023 1:00 PM EDT Office Visit Speech Therapy at [place] [phone] Debra Franco, [employer] 11/03/2023 2:00 PM EDT Office Visit Speech Therapy at [place] [phone] Debra Franco, [employer] 11/08/2023 2:30 PM EDT Appointment MRI at [place] [phone] Navjot Grider MD [facility] [place] [address] 11/09/2023 1:45 PM EDT Office Visit Hematology [place] [address] Isabell Jacob MD [facility] [place] [address] 11/11/2023 10:30 AM EDT Office Visit Radiation Oncology at [place] [address] Nicki Sharpe MD [facility] [place] [address] 11/15/2023 10:00 AM EDT Office Visit Speech Therapy at [place] [phone] Debra Franco, [employer] 11/16/2023 9:00 AM EDT Office Visit Hematology and Oncology at [place] [phone] Bisi Nam 11/22/2023 10:00 AM EDT Office Visit [place] [address] Debra Franco, [employer] 11/30/2023 9:00 AM EDT Office Visit Hematology and Oncology at [place] [phone] Bisi Nam 12/14/2023 9:00 AM EDT Office Visit Hematology [place] [address] Bisi Nam 12/28/2023 9:00 AM EDT Office Visit Hematology [place] [address] Bisi Nam documented as of this encounter Visit Diagnoses Not on filedocumented in this encounter Care Teams Manager Business Process Relationship Specialty Start Date End Date Molina Herr MD [address] [address] [place] [address] PCP - General 01/27/10 documented as of this encounter
--- OUTSIDE RECORDS SUMMARY | 2023-10-17 15:08 | XMS_ITS | Encounter Summary ---
Author Organization [facility] Address [facility] [place] [address] Care Team Providers Care Product Tester Fiberglass Name Role Phone Molina Herr MD Primary Care Provider [phone] Reason for Visit * Reason Comments Altered Mental Status Encounter Details Date Type Department Care Team (Late st Contact Info) Description 07/28/2023 6:54 PM EDT - 07/28/2023 10:29 PM EDT Emergency Emergency Services at [facility] [address] [place] [address] [facility] [place] [address] Mass of brain Discharge [facility] Social History Tobacco Use Types Packs/Day Years Used Date Smoking Tobacco: Never Smokeless Tobacco: Never Alcohol Use Standard Drinks/Week Comments Not Currently 0 (1 standard drink = 0.6 oz pur e alcohol) nothing in a few months [facility] Utilities Answer Date Recorded In the past 12 months has e electric, gas, oil, or water company threatened to shut off services in your home? No 07/29/2023 Hunger Vital Sign Answer Date Recorded Within the past 12 months, y ou worried that your food would run out before you got the money to buy more. Never true 07/29/19 24 Within the past 12 months, t he food you bought just didn't last and you didn't have money to get more. Never true 07/29/2023 PRAPARE - Transportation Answer Date Re corded In the past 12 months, has l ack of transportation kept you from medical appointments or from getting medications? No 07/06 In the past 12 months, has l ack of transportation kept you from meetings, work, or from getting things needed for daily living? No 07/29/2023 Housing Stability Vital Sign Answer Carrington e Recorded In the last 12 months, was t here a time when you were not able to pay the mortgage or rent on time? No 07/29/2023 In the past 12 months, how m any times have you moved where you were living? 1 07/29/2023 At any time in the past 12 m [facility], were you homeless or living in a halfway (including now)? No 07/29/2023 [facility] IPV Inpatient Questions Answer Date Recorded Does Anyone Try to Keep You From Having Contact with Others or Doing Things Outside Your Home? no 07/28/2023 Feels Threatened by Someone no 07/06 Feels Unsafe at Home or Work/School no 07/28/2023 Physical Signs of Abuse Present no 07/28/2023 Sex and Gender Information Value Date Recorded Sex Assigned at Male 02/02/2021 9:04 PM EST Gender Identity Male 02/02/2021 9:04 PM EST Sexual Orientation Not on file documented as of this encounter Last Filed Vital Signs Vital Sign Reading Time Taken Comments Blood Pressure 124/78 07/28/2023 7:18 PM EDT Pulse 71 07/28/2023 7:18 PM EDT Temperature 36.8 ??C (98.2 ??F) 07/28/2023 6:56 PM ED T Respiratory Rate 12 07/28/2023 7:18 PM EDT Oxygen Saturation 98% 07/28/2023 7:18 PM EDT Inhaled Oxygen Concentration - - Weight 82 kg (180 lb 12.4 oz) 07/28/2023 6:56 PM EDT Height 172.7 cm (5' 8) 07/28/2023 6:56 PM EDT Body Mass Index 27.49 07/28/2023 6:56 PM EDT documented in this encounter Medications at Time of Discharge Medication Sig Dispensed Refills Start Date End Date acetaminophen (Tylenol) 650 mg/20.3 mL Solution Take [...] 20 mg by mouth daily. 4 03/08/2014 lukrjskkhesqj-TA-jsh c (SOURCE CF) 200-10 mcg-mg Chew Take 1 tablet by mouth daily. 08/04/2010 levothyroxine (SYNTHROID) 25 mcg tablet 25MCG = 1 Tablet(s), PO, Once daily 09/27/2007 atorvastatin (LIPITOR) 10 mg tablet Take 20 mg by mouth. 09/27/2007 celecoxib (CeleBREX) 200 mg capsule Take 1 capsule by mouth 2 times daily for 42 doses. 30 capsule 1 07/30/2023 08/20/2023 dexAMETHasone (Decadron) 4 mg tablet Take 1 tablet by mouth 2 times daily. 30 tablet 07/30/2023 08/07/2023 levETIRAcetam (Keppra) 500 mg tablet Take 1 tablet by mouth 2 times daily. 60 tablet 07/30/2023 08/25/2023 celecoxib (CeleBREX) 200 mg capsule Take 1 capsule by mouth 2 times daily for 42 doses. 07/06/2023 07/30/2023 senna-docusate (Pericolace) 8.6-50 mg Tablet Take 2 tablets by mouth 2 times daily as needed for Constipation for up to 30 days. 07/06/2023 08/06/2023 polyethylene glycoL (Miralax) 17 gram/dose Powder Take 17 g by mouth 2 times daily as needed for up to 30 days. 07/06/2023 08/06/2023 aspirin EC 81 mg EC (DR) tablet Take 1 tablet by mouth 2 times daily. 60 tablet 07/05/2023 08/06/2023 documented as of this encounter ED Notes * Shonna Javed, RN - 07/28/2023 10:26 PM EDT Pt to [facility] via POV for direct admit to L5. * Shonna Javed RN - 07/28/2023 10:01 PM EDT Report to Aisha MOORE at [facility]. Pt signs ambulance refusal and will be presenting to [facility] via POV as previously discussed between Dr Gutierres and pt and sig other. * Munira Gutierres DO - 07/28/2023 9:46 PM EDT Chief Complaint Patient presents with Altered Mental Status Patient is an 82-year-old male who was sent to the emergency department from radiology after an abnormal MRI of his brain. Patient underwent a right total knee arthroplasty 3 weeks ago and then had adifficult time with word finding and processing. This has been ongoing for the past few weeks. He denies headaches, vision changes, nausea, vomiting, and difficulty walking. He has not had any feversor chills. He denies abdominal pain. He does report that hearing in his left ear has not been as clear lately, but he thought this was related to his hearing aid. Altered Mental Status Allergies Allergen Reactions Penicillins Hives [facility] Penicillin Allergy Risk Assessment 06/13/2023: Low risk penicillin allergy. OK to receive full dose of cefazolin, cefuroxime, or any 3rd or 4th+ generation cephalosporin. Social History Socioeconomic History Marital status: Spouse [...] Concern Not on file Social History Narrative Not on file Social Determinants of Health Financial Resource Strain: Not on file Food Insecurity: Not on file Transportation Needs: Not on file Physical Activity: Not on file Intimate Partner Violence: Not At Risk (07/28/2023) IPV Inpatient Questions Prevent Contact with Others: no Feels Threatened by Someone: no Feels Unsafe at Home: no Physical Signs of Abuse Present: no Housing Stability: Not on file Family History Problem Relation Age of Onset Cancer Brother Past Medical History: Diagnosis Date Hyperlipidemia Lumbar degenerative disc disease 08/21/2010 Past Surgical History: Procedure Laterality Date PRO ARTHROPLASTY KNEE CONDYLE & PLATEAU MEDIAL & LAT COMPARTMENTS Right 07/05/2023 TOTAL KNEE ARTHROPLASTY (WRVU 19.6) performed by Ernie Fuchs MD at [facility] MAIN OR PRO COLONOSCOPY, BIOPSY 01/10/2013 COLONOSCOPY FLEXIBLE, WITH BX performed by Dominick Earl MD at [facility] ENDOSCOPY PRO COLONOSCOPY, REMV LESN, SNARE N/A 01/12/2018 COLONOSCOPY, POLYPECTOMY, REMOVAL LESION BY SNARE (WRVU 4.67) performed by Guerda Coombs MD at [facility] ENDOSCOPY PRO COLONOSCOPY, REMV LESN, SNARE N/A 01/20/2023 COLONOSCOPY, POLYPECTOMY, REMOVAL LESION BY SNARE (WRVU 4.57) performed by Guerda Coombs MD at [facility] ENDOSCOPY PRO LAP, APPENDECTOMY N/A 03/09/2017 LAPAROSCOPIC APPENDECTOMY (WRVU 9.45) performed by Saurav Chen MD at [facility] MAIN OR PRO UPPER GI ENDOSCOPY, DIAGNOSTIC N/A 06/11/2021 EGD, UPPER GI ENDOSCOPY performed by Guerda Coombs MD at [facility] ENDOSCOPY Review of Systems Per HPI. Physical Exam Constitutional: General: He is not in acute distress. Appearance: He is not toxic-appearing. HENT: Mouth/Throat: Mouth: Mucous membranes are moist. Eyes: Extraocular Movements: Extraocular movements intact. Conjunctiva/sclera: Conjunctivae normal. Cardiovascular: Rate and Rhythm: Normal rate and regular rhythm. Pulmonary: Effort: Pulmonary effort is normal. No respiratory distress. Breath sounds: Normal breath sounds. Abdominal: Palpations: Abdomen is soft. Tenderness: There is no abdominal tenderness. Musculoskeletal: Right lower leg: No edema. Left lower leg: No edema. Comments: Incision clean and well-healing on right knee Skin: General: Skin is warm and dry. Neurological: Mental Status: He is alert and oriented to person, place, and time. Cranial Nerves: No cranial nerve deficit. Sensory: No sensory deficit. Motor: No weakness. Gait: Gait normal. Comments: Difficulty with word finding. MDM Patient is an 82-year-old male who presents to the emergency department after an abnormal MRI of his brain that showed a large mass concerning for glioblastoma with problems with word finding and speech processing. MRI concerning for a mass with midline shift. He is hemodynamically stable and does not have cranial nerve deficits, weakness, or sensory deficits. He does not have any nausea or vomiti ng. Given significant findings on MRI, will discuss with neurosurgery at [facility]. Will also obtain basic labs including CBC and BMP. Will give him 1 g of Keppra. Discussed case with neurosurgery. Patient can either be discharged home and they will call him tomorrow or he can be transferred to [facility] at [facility]. Discussed options with patient and his partner and they preferred to go to [facility] this evening. Results of labs discussed below. Patient was given 4 mg of Decadron. ED Course: ED Course as of 07/28/232207 Debbie July 28, 20231999 MRI brain: Large ring-enhancing mass centered in the left temporal lobe with vasogenic edema pattern as described, and mass effect with compression of the left lateral ventricular system. These findings would be characteristic of a aggressive primary [employer] neoplasm such as glioblastoma or a very large metastasis. 2012 Patient seen and examined at bedside. Discussed results of MRI with patient and his partner. 1g of Keppra ordered for loading dose. Will call neurosurgery for consultation. 2018 Awaiting neurosurgery callback. 2025 Neurosurgery consult: Spoke with Dr. Dunlap who explains that this is likely a glioblastoma. Patient can either be transferred to [facility] at [facility] or be discharged home for outpatient follow-up. If patient goes home recommend 500 mg of Keppra twice daily and Decadron 4 mg every 6 hours. Treatment plan would include surgery followed by chemotherapy and radiation. 2143 Patient would like to be transferred to [facility] and we are awaiting a callback from the transfer center for bed placement. CBC with anemia, hemoglobin 10.1. BMP with mildly elevated BUN of 24. 2154 Patient will be transferred to [facility]. 2206 Called back transfer center and patient is admitted to neurosurgery. Patient will be going by private vehicle. 1. Mass of brain Munira Gutierres DO Resident 07/28/232207 Associated attestation - Vito Vidales MD - 08/04/2023 6:45 PM EDT ED ATTENDING ATTESTATION The patient was seen in conjunction with the resident physician. I have independently performed thekey portions of the history and physical exam. I have personally reviewed nursing notes, vital signs, and diagnostic studies including labs, imaging studies and EKGs. I have discussed the details of the case with the resident and agree with the assessment and plan as described in the resident's note, unless stated otherwise in my separate note. Did this case involve critical care? No documented in this encounter Miscellaneous Notes * ED Triage - Elisa Haynes RN - 07/28/2023 6:58 PM EDT 82yo alert arrives with mental status changes. Pt reports that 3 weeks ago had right knee replacement. Pt states the day of the appt he noticed trouble with speech. Pt reports that he can understand everyone though has trouble speaking correct words. Pt came from MRI by recommendation of radiologist. HPI (Adult) Stated Reason for Visit: mental status changes History Obtained From: patient Precipitating Event(s): unknown Duration (Weeks): 3 documented in this encounter Plan of Treatment Upcoming Encounters Date Type Department Care Team (Late st Contact Info) Description 10/27/2023 11:15 AM EDT Office Visit [place] [address] [facility] DR HOSPICE [place] [address] 10/27/2023 1:00 PM EDT Office [place] [address] Debra Franco ROLANDO 11/03/2023 2:00 PM EDT Office Visit Speech Therapy at [place] [phone] Debra Franco, ESTIMATOR PRINTING PLATE MAKING 11/08/2023 2:30 PM EDT Appointment MRI at [place] [address] [facility] [address] [place]Y [place] [address] 11/09/2023 1:45 PM EDT Office Visit Hematology and Oncology at [address] [facility] [place] [address] 11/11/2023 10:30 AM EDT Office Visit Radiation Oncology at [place] [phone] [facility] [place] [address] 11/15/2023 10:00 AM EDT Office [place] [address] Debra Franco, ROLANDO 11/16/2023 9:00 AM EDT Office Visit Hematology [place] [address] Bisi Nam 11/22/2023 10:00 AM EDT Office [place] [address] Debra Franco, ROLANDO 11/30/2023 9:00 AM EDT Office Visit Hematology [place] [address] Bisi Nam 12/14/2023 9:00 AM EDT Office Visit Hematology [place] [address] Bisi Nam 12/28/2023 9:00 AM EDT Office Visit Hematology [place] [address] Bisi Nam documented as of this encounter Procedures Procedure Name Priority Date/Time Associated Diagnosis Comments HEMOGRAM STAT 07/28/2023 7:25 PM EDT DIFFERENTIAL, AUTOMATED STAT 07/28/2023 7:25 PM EDT CBC (WITH DIFF) STAT 07/28/2023 7:25 PM EDT BASIC METABOLIC PANEL STAT 07/28/2023 7:25 PM EDT documented in this encounter Results * (ABNORMAL) Differential, Automated (07/28/2023 7:25 PM EDT) Neutrophil % 58.0 % [facility] Neutrophil Absolute 3.65 1.70 - 6.10 x10(3)/[facility] Lymph % 23.5 % [facility] Lymphocytes Abs 1.5 0.9 - 3.2 x10(3)/[facility] Monocyte % 8.7 % [facility] Monocyte Abs 0.6 0.3 - 0.9 x10(3)/[facility] Eos % 8.6 % [facility] Eosinophils Abs 0.5(H) 0.0 - 0.4 x10(3)/[facility] Basophil % 1.0 % [facility] Baso Absolute 0.1 0.0 - 0.1 x10(3)/[facility] Immature Gran % 0.20 % [facility] Comment: Immature granulocytes(IG's)percentage and absolute count will include metamyelocytes, myelocytes, and promyelocytes. Blood smears from CBCs yielding IG's will be scanned manually for concordance. If this scan disagrees with the automated IG or if promyelocytes are noted, a manual differential will be performed. Immature Gran Absolute 0.01 0.00 - 0.04 x10(3)/mcL [facility] Blood 07/28/2023 7:25 PM EDT 07/28/2023 7:37 PM EDT Narrative Resulting Agency Comment Spec In Lab Vito Vidales MD HEMATOLOGY ORDERA BLES Performing Organization Address [facility] Co de Phone Number [facility] [address] [place] [address] * (ABNORMAL) Hemogram (07/28/2023 7:25 PM EDT) White Blood Cell 6.3 4.0 - 9.5 x10(3)/mc L [facility] Red Blood Cell 3.70(L) 4.58 - 5.54 x10(6)/mc L [facility] Hemoglobin 10.1(L) 13.7 - 16.5 g/dL [facility] Hematocrit 33.1(L) 40.5 - 48.5 % [facility] Mean Cell Volume 89.5 82.9 - 93.1 fL [facility] Mean Cell Hemoglobin 27.3(L) 27.5 - 32.1 pg [facility] Mean Cell Hemoglobin Concentration 30.5(L) 32.0 - 35.7 g/dL [facility] Platelet 324 145 - 357 x10(3)/mc L [facility] RDW Standard Deviation 45.6(H) 36.0 - 45.0 fL [facility] RDW coefficient of variation 13.7 11.4 - 13.8 % [facility] Mean Platelet Volume 8.9 7.6 - 12.9 fL [facility] Blood 07/28/2023 7:25 PM EDT 07/28/2023 7:37 PM EDT Narrative Resulting Agency Comment Spec In Lab Vito Vidales MD HEMATOLOGY ORDERA BLES Performing Organization Address [facility] Co de Phone Number [facility] [address] [place] [address] * (ABNORMAL) Basic Metabolic Panel (non-fasting) (07/28/2023 7:25 PM EDT) Glucose 89 65 - 199 mg/dL [facility] Comment:Diabetes: >=200 mg/d L plus symptoms Blood Urea Nitrogen 24(H) 10 - 20 mg/dL [facility] Creatinine 1.36 0.80 - 1.50 mg/dL [facility] Sodium 135 135 - 145 mmol/L [facility] Potassium 4.1 3.5 - 5.0 mmol/L [facility] Comment: Please note: ??Patients with WBC >100,000 may have falsely elevated Potassium levels. ??For accurate Potassium quantification in these patients send serum separator tube (gold top) for subsequent determinations. ??Contact the Clinical Chemistry Laboratory if there are any questions. Chloride 102 98 - 107 mmol/L [facility] Carbon Dioxide 24 22 - 31 mmol/L [facility] Anion Gap 10 5 - 15 mmol/L [facility] Calcium 9.0 8.5 - 10.5 mg/dL [facility] Est Glomerular Filtration Rate 53(L) >=60 mL/min/1.7 3 m?? [facility] Comment: This patient's estimated GFR was calculated [...] and symptoms in addition to eGFR. Blood 07/28/2023 7:25 PM EDT 07/28/2023 7:37 PM EDT Narrative Resulting Agency Comment Spec In Lab Vito Vidales MD CHEMISTRY ORDERAB LES [facility] [address] [place] [address] documented in this encounter Visit Diagnoses Diagnosis Mass of brain Unspecified condition of brain documented in this encounter Administered Medications Inactive Administered Medications - up to 3 most recent administrations Medication Order MAR Action Action Date Dose Rate Site dexAMETHasone (Decadron) injection 4 mg 4 mg, Intravenous, ONCE, 1 dose, On Debbie 07/28/23 at 2056 Given 07/28/2023 8:57 PM EDT 4 mg levETIRAcetam (Keppra) (100 mg/mL) IV injection 1 g 1 g, Intravenous, ONCE, 1 dose, On Debbie 07/28/23 at 2013, Doses administered via IV push over 5 minutes. Administer Undiluted., STAT Given 07/28/2023 8:22 PM EDT 1 g documented in this encounter Active and Recently Administered Medications Times are shown in EDT. Scheduled Medication Order 07/26/2023 07/27/2023 07/28/2023 dexAMETHasone (Decadron) injection 4 mg (COMPLETED) 4 mg, Intravenous, ONCE, 1 dose, On Debbie 07/28/23 at 2056 2056 (Given - Provid er: Shonna Javed RN) levETIRAcetam (Keppra) (100 mg/mL) IV injection 1 g (COMPLETED) 1 g, Intravenous, ONCE, 1 dose, On Debbie 07/28/23 at 2013, Doses administered via IV push over 5 minutes. Administer Undiluted., STAT 2021 (Given - Provid er: Shonna Javed RN) documented in this encounter Care Teams Product Tester [employer]erglass Relationship Specialty Start Date End Date Molina Herr MD [address] [place] [address] PCP - General 01/27/10 documented as of this encounter
--- OUTSIDE RECORDS SUMMARY | 2023-10-17 15:08 | XMS_ITS | Encounter Summary ---
[place] [address] Care Team Providers Care Commercial Shrimping Captain Name Role Phone Molina Herr MD Primary Care Provider [phone] Encounter Details Date Type Department Care Team (Late st Contact Info) Description 08/04/2023 Notes [place] [phone] Debra Chang Social History Tobacco Use Types Packs/Day Years Used Date Smoking Tobacco: Never Smokeless Tobacco: Never Alcohol Use Standard Drinks/Week Comments Not Currently 0 (1 standard drink = 0.6 oz pur e alcohol) nothing in a few months [facility] Utilities Answer Date Recorded In the past 12 months has e [place] [employer], gas, oil, or water [facility] threatened to shut off services in your [...] living in a fpc (including now)? No 08/05/2023 DH IPV Inpatient [...] as of this encounter Progress Notes * Debra Chang - 08/04/2023 11:59 PM EDT Perfecto Polk was offered the opportunity to participate in a study that involves brain tumor collection and additional blood collection, [id number], Evlauation of virus-specific T cells in neurological tissues from routine surgery. The study investigates memory T cells in brain tissue, and what viruses or vaccines those cells recognize. The study was reviewed with Perfecto Polk, including the purpose, potential risks and benefits, voluntary nature of participation, requirements of participation including the tissue collection and the amount of blood that will be drawn, the potential future use of this sample and how private health information will be protected. The patient was given adequate time to review the consent form andall questions and concerns were addressed. Perfecto Polk has agreed to participate in the study. The consent form was signed and dated by the patient and me. Written informed consent was obtained prior to any study procedures being conducted. A copy of the signed consent form was given to the patient. The original consent form was kept by Debra bernal, CRC. documented in this encounter Plan of Treatment Upcoming Encounters Date Type Department Care Team (Late st Contact Info) Description 10/27/2023 11:15 AM EDT Office Visit Palliative Medicine at [place] [address] Elly Alston MD [facility] [address] HOSPICE [place] [address] 10/27/2023 1:00 PM EDT Office Visit Speech Therapy at [place] [address] Debra Franco, NOUGAT CANDY MAKER HELPER 11/03/2023 2:00 PM EDT Office Visit Speech Therapy at [place] [address] Debra Franco, NOUGAT CANDY MAKER HELPER 11/08/2023 2:30 PM EDT Appointment MRI at [place] [address] Navjot Grider MD [facility] [address] [place] [address] 11/09/2023 1:45 PM EDT Office Visit Hematology and Oncology at [place] [address] Isabell Jacob MD [facility] [place] [address] 11/11/2023 10:30 AM EDT Office Visit Radiation Oncology at [place] [address] Nicki Sharpe MD [facility] [place] [address] 11/15/2023 10:00 AM EDT Office Visit Speech Therapy at [address] Debra Franco, NOUGAT CANDY MAKER HELPER 11/16/2023 9:00 AM EDT Office Visit Hematology [place] [address] Bisi Nam 11/22/2023 10:00 AM EDT Office Visit [place] [address] Debra Franco, ROLANDO 11/30/2023 9:00 AM EDT Office Visit Hematology [place] [address] Bisi Nam 12/14/2023 9:00 AM EDT Office Visit Hematology [place] [address] Bisi Nam 12/28/2023 9:00 AM EDT Office Visit Hematology [place] [address] Bisi Nam documented as of this encounter Visit Diagnoses Not on filedocumented in this encounter Care Teams Commercial Shrimping Captain Relationship Specialty Start Date End Date Molina Herr MD [address] [address] [place] [address] PCP - General 01/27/10 documented as of this encounter
--- OUTSIDE RECORDS SUMMARY | 2023-10-17 15:08 | XMS_ITS | Encounter Summary ---
Author Organization [facility] [place] [address] Care Team Providers Care Finish Repairer Name Role Phone Molina Herr MD Primary Care Provider [phone] Reason for Visit * Auth/Cert (Routine) Specialty Diagnoses / Procedures Referred By Flo t Referred To Contact Diagnoses left temp tumor Procedures PRO EXCIS SUPRATENT BRAIN TUMOR PRO MICROSURG TECHNIQUES, REQ OPER MICROSCOPE PRO STEREOTACTIC CPTR ASSTD PX CRANIAL, INTRADURAL @CRANI, FOR TUMOR, SUPRATENTORIAL, NOT MENINGIOMA (WRVU 30.83) MICROSCOPE USE (WRVU 3.46) STEREOTACTIC COMPUTER-ASSTD NAVIGATIONAL CRANIAL INTRADURAL (WRVU 3.75) MODIFIER,STEALTH 2,KINEVO Rolly Dunlap MD [facility] [place] [address] [facility] Referral ID Status Reason Start Date Expiration Date Visits Re quested Visits Authorized [id number] 1 1 Encounter Details Date Type Department Care Team (Late st Contact Info) Description 08/04/2023 12:34 PM EDT Anesthesia [place] [phone] Deanna Barkley MD [facility] [place] [address] Maynor Fisher, [facility] [place] [address] Anesthesia Record Procedure Summary Procedure Name Responsible Anesthesiologist Anesthesia Start Time Anesthesia Stop Time @CRANI, FOR TUMOR, SUPRATENTORIAL, NOT MENINGIOMA (WRVU 30.83) (Left: Brain) Deanna Barkley MD 08/04/23 1234 08/04/23 1624 Events Date Time Event Comment 08/04/2023 0955 1234 AN Verify 1234 Start 1234 An Start Data 1250 An Induction 1253 An Intubation 1257 Quick Note tongs 1302 Anesthesia Ready 1318 Procedure Start 1331 An Data Art Unable to draw back from a-line; good wave form 1337 ABG Data Venous Blood Ga s result: pH 7.37 pCO2 35 pO2 186 %O2 Sat 98 FiO2 0.7 HCO3 20 BE -5.2 Hb 11.7 K 3.9 Glucose 99 Lactate 1.83 Ca 1.2 1342 Quick Note Soda andreafski bryant e 1539 Break/Relief In I assumed ca re for Break Relief before which we: 1. Identified the patient 2. Identified the responsible provider(s) 3. Reviewed the pertinent medical history 4. Discussed the surgical plan and course 5. Reviewed intra-op anesthesia management and issues during anesthesia 6. Set expectations for the relief (and/or post-procedure) period 7. Allowed opportunity for questions and acknowledgement of understanding Deanna Barkley MD, PhD 1544 Extubation/LMA Out 1546 Quick Note Ready to leave. On ICU hold. 1555 Break/Relief Out 1617 an stop data 1617 Transport Neuro ICU 339: O2/ monitors 1624 Recovery or ICU Handoff Janel ent care was transferred to the destination unit staff after review of the patient's medical history, current anesthetic/surgical status and plan, according to the Provider Handoff Checklist.HOB elev 15 degrees; neuro@ baseline; pupils = @ 3 mm; SMAE good tone; denies c/o except thirst 1624 Stop Meds Name Total IV Lidocaine 50 mg Propofol 430 mg Rocuronium 120 mg PHENYLephrine 80 mcg ePHEDrine 5 mg Ondansetron 4 mg Dexamethasone 10 mg PHENYLephrine INF 2,650 mcg REMIfentanil INF 1.81 mg dexmedeTOMIDine INF 42.08 mcg ceFAZolin 2 g lidocaine 4% LTA 3 mL esmolol 50 mg sugammadex 400 mg acetaminophen IV 1,000 mg lactated ringers infusion 800 mL lactated ringers 100 mL * Agents Name O2 Air N2O Sevoflurane (et) Isoflurane (et) O2 Auxiliary Flowmeter 2 * Blood No blood administrations on file. Lines, Drains, and Airways Type Details Placement Removal Incision 07/05/23; 0936; Righ t, anterior; knee; 08/07/23; 13407/05/23 0936 by Neil Arrington RN 08/07/23 1342 by Melinda Calzada RN Urethral Catheter 08/04/23; 0800 (Exac t time unknown; placed in OR); Surgery longer than 2 hours; indwelling single lumen catheter; inserted at this facility (Inserted in OR, not previously documented); (ULYSSES; Inserted in OR, not previously documented); 10; urethral catheter removed, tubing intact, per protocol/policy; 08/04/23; 1644 08/04/23 0800 by Ayah More RN 08/04/23 1644 by Ayah More RN PIV 08/04/23; 0918; [id number] catheter system; 22 gauge; metacarpal vein (top of hand), right; Anatomical Landmarks; US Not Used; Claudio MOORE; distraction, tolerated well, appears comfortable; 08/07/23; 13408/04/23 0918 by Mercy Chiu RN 08/07/23 1342 by Melinda Calzada RN ETT Mask Ventilation: Ad junct (2); ETT Type: Cuffed, Oral; ETT Size: 7.5 mm; Wolfe Blade: 2; Notes: Asleep, Stylette, Pre-O2; Attempts: 1; Laryngoscopy Grade: 2; ETT Placement Verified By: Capnometry, Visual; Secured at Teeth: 21 cm; Inserted by: stepan; Removal Date: 08/04/23; Removal Time: 1544 08/04/23 1253 by Susy Coronaod CRNA 08/04/23 1544 by Susy Coronado CRNA Arterial Line 08/04/23; 1259; radi al artery, right; 20 gauge; Anatomical Landmarks, Guidewire; continuous blood pressure monitoring; mda; Sterile Prep, Sterile Gloves; no longer indicated, removed per policy, catheter intact; 08/04/23; 1639 08/04/23 1259 by Susy Coronado, MERCHANDISE COORDINATOR 08/04/23 1639 by Ayah More RN PIV 08/04/23; 1300; [id number] catheter system; 18 gauge; cephalic vein (lateral side of arm), left; Anatomical Landmarks; quality assurance coach; 08/07/23; 1341 08/04/23 1300 by Susy Coronado, MERCHANDISE COORDINATOR 08/07/23 1341 by Melinda Calzada RN Incision 08/04/23; 1318; Left ; temporal region; 08/07/23; 1342 08/04/23 1318 by Addie Wolfe RN 08/07/23 1342 by Melinda Calzada RN documented in this encounter Social History Tobacco Use Types Packs/Day Years Used Date Smoking Tobacco: Never Smokeless Tobacco: Never Alcohol Use Standard Drinks/Week Comments Not Currently 0 (1 standard drink = 0.6 oz pur e alcohol) nothing in a few months [facility] Utilities Answer Date Recorded In the past 12 months has th e [employer], gas, oil, or water [employer] threatened to shut off services in your [...] living in a fdc (including now)? No 08/05/2023 DH IPV Inpatient [...] on file documented as of this encounter OR Notes * Anesthesia Postprocedure Evaluation - Deanna Barkley MD - 08/05/2023 5:30 AM EDT Department of Anesthesiology Post-procedure Note Patient: Perfecto Polk Procedure Summary Date: 08/04/23 Room / Location: [facility] OR [address] [place] [address] MAIN OR Anesthesia Start: 1234 Anesthesia Stop: 1624 Procedures: @CRANI, FOR TUMOR, SUPRATENTORIAL, NOT MENINGIOMA (WRVU 30.83) (Left: Brain) MICROSCOPE USE (WRVU 3.46) (Brain) STEREOTACTIC COMPUTER-ASSTD NAVIGATIONAL CRANIAL INTRADURAL (WRVU 3.75) (Brain) MODIFIER,STEALTH 2,KINEVO (Brain) Diagnosis: (left temp tumor) Surgeons: Rolly Dunlap MD Responsible Provider: Deanna Barkley MD Anesthesia Type: general ASA Status: 2 All Anesthesia Providers: Anesthesiologist: Deanna Barkley MD MERCHANDISE COORDINATOR: Susy Coronado CRNA Vitals Value Taken Time BP 105/73 08/05/23 0500 Temp 36.6 ??C (97.9 ??F) 08/05/23 0400 Pulse 63 08/05/23 0529 Resp 15 08/05/23 0529 SpO2 99 % 08/05/23 0529 Pain Level 5 08/05/23 0400 Vitals shown include unfiled device data. Patient Location: ICU Level of Consciousness: Awake and Alert Pain Management: Satisfactory Analgesia PONV: None Cardiovascular Status: At Baseline Respiratory Status: At Baseline Postoperative Fluid Status: Intravascular EUvolemia Possible Anesthetic Complications: NONE apparent at time of evaluation Final Primary Anesthesia Type: General (The anesthetic type performed was the same as planned.) Comments: * Anesthesia Preprocedure Evaluation - Deanna Barkley MD - 08/03/2023 4:17 PM EDT Pre-Anesthesia Evaluation for: Perfecto Polk a 82 y.o. male. Procedure(s): @CRANI, FOR TUMOR, SUPRATENTORIAL, NOT MENINGIOMA (WRVU 30.83) MICROSCOPE USE (WRVU 3.46) STEREOTACTIC COMPUTER-ASSTD NAVIGATIONAL CRANIAL INTRADURAL (WRVU 3.75) MODIFIER,Emos Futures 2,KINEVO Patient Active Problem List Diagnosis Date Noted ??? Brain tumor 07/28/2023 ??? Total knee replacement status 07/05/2023 ??? Acute appendicitis 03/08/2017 ??? Primary osteoarthritis of left knee (DJD) 03/13/2014 ??? Osteomyelitis 08/31/2010 ??? Discitis of lumbar region 08/21/2010 ??? Lumbar degenerative disc disease 08/21/2010 Past Medical History: Diagnosis Date ??? Hyperlipidemia ??? Lumbar degenerative disc disease 08/21/2010 Past Surgical History: Procedure Laterality Date ? ? PRO ARTHROPLASTY KNEE CONDYLE & PLATEAU MEDIAL & LAT COMPARTMENTS Right 07/05/2023 TOTAL KNEE ARTHROPLASTY (WRVU 19.6) performed by Ernie Fuchs MD at [facility] MAIN OR ??? PRO COLONOSCOPY, BIOPSY 01/10/2013 COLONOSCOPY FLEXIBLE, WITH BX performed by Dominick Earl MD at [facility] ENDOSCOPY ??? PRO COLONOSCOPY, REMV LESN, SNARE N/A 01/12/2018 COLONOSCOPY, POLYPECTOMY, REMOVAL LESION BY SNARE (WRVU 4.67) performed by Guerda Coombs MD at [facility] ENDOSCOPY ??? PRO COLONOSCOPY, REMV LESN, SNARE N/A 01/20/2023 COLONOSCOPY, POLYPECTOMY, REMOVAL LESION BY SNARE (WRVU 4.57) performed by Guerda Coombs MD at [facility] ENDOSCOPY ??? PRO LAP, APPENDECTOMY N/A 03/09/2017 LAPAROSCOPIC APPENDECTOMY (WRVU 9.45) performed by Saurav Chen MD at [facility] MAIN OR ??? PRO UPPER GI ENDOSCOPY, DIAGNOSTIC N/A 06/11/2021 EGD, UPPER GI ENDOSCOPY performed by Guerda Coombs MD at [facility] ENDOSCOPY Social History Tobacco Use ??? Smoking status: Never ??? Smokeless tobacco: Never Substance Use Topics ??? Alcohol use: Not Currently Comment: nothing in a few months Social History Substance and Sexual Activity Drug Use No Allergies Allergen Reactions ??? Penicillins Hives PAT Penicillin Allergy Risk Assessment 06/13/2023: Low risk penicillin allergy. OK to receive full dose of cefazolin, cefuroxime, or any 3rd or 4th+ generation cephalosporin. Medications: MAR and/or home medications have been reviewed. Physical Exam: Preprocedure Vitals Current as of 08/03/23 1617 No BP, pulse, respiration, SpO2, or temperature recorded. Height: 172.7 cm (5' 7.99) (07/28/23) Weight: 78.1 kg (172 lb 1.6 oz) (07/28/23) BMI: 26.17 IBW: 68.4 kg (150 lb 12.1 oz) Airway Assessment: Mallampati: I TM distance: >3 FB Neck ROM: full Cardiovascular Assessment: system normal Pulmonary Assessment: unlabored breathing Dental Assessment: - normal exam Misc Assessment: IV access: Peripheral line Last Filed Perioperative Cognitive Screening Value Time User AD8 Total Score: 0 06/13/2023 11:00 AM Dilshad Bocanegra RN ADAlejandro Informant: Patient 06/13/2023 11:00 AM Dilshad Bocanegra RN 4AT TOTAL Score: 5 07/28/2023 7:20 PM Elisa Haynes RN CFS Frailty Score: 3 06/13/2023 11:00 AM Dilshad Bocanegra RN MiniCOG Total Score: 2 07/28/2023 7:20 PM Elisa Haynes RN Anesthesia Plan: ASA 2 general, with a(n) intravenous induction 82 y.o. male BMI Readings from Last 1 Encounters: 08/03/23 : 26.15 kg/m?? Perfecto X Jam is a 82 y.o. male with L temporal tumor presenting for craniectomy, resection. PMH significant for DDD, HLD, ?seizures (on keppra), hypothyroidism, GERD, carotid stenosis Labs from 07/29/23 reviewed and notable for Cr 1.3, hgb 11 otherwise grossly unremarkable. ADR: -- Penicillins -- Hives -- PAT Penicillin Allergy Risk Assessment 06/13/2023: Low risk penicillin allergy. OK to receive full dose of cefazolin, cefuroxime, or any 3rd or 4th+ generation cephalosporin. Cardiac Hx: 04/12/19 stress echocardiogram SUMMARY: 1. REST: Resting ECG showed normal sinus rhythm. Resting echo showed normal global left ventricular systolic function. Ejection fraction was 60%. There were no left ventricular segmental wall motion abnormalities. 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 See below for additional resting echo findings. 2. STRESS: The patient followed the Stu protocol for 9:01, attaining a peak workload of 10 METs at a heart rate of 153 (106% MPHR). The study was terminated because of dyspnea. The patient did not express feelings of chest discomfort. There were occasional ventricular premature contractions and PVCs. There was no significant ST deviation. With stress, global LV systolic function augmented, and all LV segments became appropriately hyperdynamic. 3. IMPRESSION: Normal stress echo, without evidence of ischemia at a diagnostic level of stress. Good exercise tolerance. 07/05/23 EKG Sinus rhythm with 1st degree A-V block Possible Anterior infarct , age undetermined Abnormal ECG No previous ECGs available 11/19/22 carotid duplex Interpretation: RIGHT: There is irregular plaque in the proximal internal carotid artery causing <15% stenosis when compared to the more distal internal carotid artery. The bifurcation level is in the mid neck. LEFT: There is irregular plaque in the proximal internal carotid artery causing 16-49% stenosis (low end of range) when compared to the more distal internal carotid artery. The bifurcation level is in the mid neck. Vertebral Artery Data: Patent vertebral arteries with normal antegrade Doppler waveforms and velocities bilaterally. Anesthesia Hx: Past anesthetics well tolerated g1v mac4 Plan Pre-op Tylenol Standard ASA Monitors GA/ETT A-line Appropriate IV Access PONV ppx Maynor Fisher DO 08/03/2023 Regulatory Agency Director Pager #[phone] Attending addendum: 82M with a h/o hypothyroidism, GERD, and mild carotid stenosis recently found to have 4 cm left-sided temporal mass and coming to OR for craniotomy for resection. Plan for GA w/ ETT, PIV x2, A-line. Maintenance with 0.5 MAC of volatile agent supplemented with sufentanil and Precedex infusion to minimize ICP effects. Patient took his a.m. dose of Keppra and dexamethasone (will supplement to 10 mg q6h intra-op), has tolerated Cefazolin previous despite childhood penicillin allergy. Nausea with oxycodone following recent TKA but tolerated PO hydromorphone. Region - Intracranial (non-vascular) Informed Consent: Anesthetic plan and risks discussed with patient and spouse. Use of blood products discussed with patient who. Plan discussed with attending and resident. Anesthesia Screening documented in this encounter Plan of Treatment Upcoming Encounters Date Type Department Care Team (Late st Contact Info) Description 10/27/2023 11:15 AM EDT Office Visit Palliative Medicine at [place] [phone] Elly Alston MD [facility] DR HOSPICE [place] [address] 10/27/2023 1:00 PM EDT Office [place] [phone] Debra Franco, MOTORCYCLE REPAIRER 11/03/2023 2:00 PM EDT Office [place] [phone] Debra Franco, MOTORCYCLE REPAIRER 11/08/2023 2:30 PM [place] [phone] Navjot Grider MD [facility] DR [place] [address] 11/09/2023 1:45 PM EDT Office Visit Hematology and Oncology at [place] [phone] Isabell Jacob MD [facility] [place] [address] 11/11/2023 10:30 AM EDT Office Visit Radiation Oncology at [address] Nicki Sharpe MD [facility] [place] [address] 11/15/2023 10:00 AM EDT Office Visit Speech Therapy at [place] [phone] Debra Franco, MOTORCYCLE REPAIRER 11/16/2023 9:00 AM EDT Office Visit Hematology [place] [address] Bisi Nam 11/22/2023 10:00 AM EDT Office [place] [address] Debra Franco, MOTORCYCLE REPAIRER 11/30/2023 9:00 AM EDT Office Visit Hematology [place] [address] Bisi Nam 12/14/2023 9:00 AM EDT Office Visit Hematology [place] [address] Bisi Nam 12/28/2023 9:00 AM EDT Office Visit Hematology [place] [address] Bisi Nam documented as of this encounter Visit Diagnoses Not on filedocumented in this encounter Administered Medications Inactive Administered Medications - up to 3 most recent administrations Medication Order MAR Action Action Date Dose Rate Site acetaminophen (Ofirmev) (1,000 mg/100 mL) infusion Intravenous, Administer over 15 Minutes, PRN, Starting on Debbie 08/04/23 at 1600, Until Debbie 08/04/23 at 1617, Anesthesia Intra-op, Routine Given 08/04/2023 4:00 PM EDT 1,000 mg ceFAZolin (Ancef) (100 mg/mL) injection solution Intravenous, PRN, Starting on Debbie 08/04/23 at 1306, Until Debbie 08/04/23 at 1617, Anesthesia Intra-op, Routine Given 08/04/2023 1:06 PM EDT 2 g dexAMETHasone (Decadron) injection Intravenous, PRN, Starting on Debbie 08/04/23 at 1309, Until Debbie 08/04/23 at 1617, Anesthesia Intra-op, Routine Given 08/04/2023 1:09 PM EDT 10 mg dexmedeTOMIDine (Precedex) (4 mcg/mL) in sodium chloride 0.9% 50 mL infusion Intravenous, CONTINUOUS PRN, Starting on Debbie 08/04/23 at 1250, Until Debbie 08/04/23 at 1617, Anesthesia Intra-op New Bag 08/04/2023 12:50 PM EDT 0.2 mcg/kg/hr 3.945 mL/hr ePHEDrine sulfate (5 mg/mL) multi-dose injection Intravenous, PRN, Starting on Debbie 08/04/23 at 1424, Until Debbie 08/04/23 at 1617, Anesthesia Intra-op, Routine Given 08/04/2023 2:24 PM EDT 5 mg esmoloL (Brevibloc) (10 mg/mL) injection Intravenous, PRN, Starting on Debbie 08/04/23 at 1253, Until Debbie 08/04/23 at 1617, Anesthesia Intra-op, Routine Given 08/04/2023 12:53 PM EDT 50 mg lactated ringers infusion 1,000 mL, at 100 mL/hr, Intravenous, CONTINUOUS, Starting on Debbie 08/04/23 at 0930, Until Debbie 08/04/23 at 1636, Day of Surgery (Day of Procedure) New Bag 08/04/2023 12:34 PM EDT lactated ringers infusion Intravenous, CONTINUOUS PRN, Starting on Debbie 08/04/23 at 1302, Until Debbie 08/04/23 at 1617, Anesthesia Intra-op New Bag 08/04/2023 1:02 PM EDT lidocaine (pf) (Xylocaine) (20 mg/mL) 2% injection syringe Intravenous, PRN, Starting on Debbie 08/04/23 at 1250, Until Debbie 08/04/23 at 1617, Anesthesia Intra-op, Routine Given 08/04/2023 12:50 PM EDT 50 mg lidocaine (XYLOCAINE) 4 % external solution Intratracheal, PRN, Starting on Debbie 08/04/23 at 1253, Until Debbie 08/04/23 at 1617, Anesthesia Intra-op Given 08/04/2023 12:53 PM EDT 3 mLs ondansetron (pf) (Zofran) (2 mg/mL) injection Intravenous, PRN, Starting on Debbie 08/04/23 at 1602, Until Debbie 08/04/23 at 1617, Anesthesia Intra-op, Routine Given 08/04/2023 4:02 PM EDT 4 mg PHENYLephrine (Narendra-Synephrine) (80 mcg/mL) in sodium chloride 0.9% 250 mL infusion Intravenous, CONTINUOUS PRN, Starting on Debbie 08/04/23 at 1302, Until Debbie 08/04/23 at 1617, Anesthesia Intra-op, Routine Rate/Dose Change 08/04/2023 3:06 PM EDT 20 mcg/min 15 mL/hr Rate/Dose Change 08/04/2023 2:56 PM EDT 10 mcg/min 7.5 mL/ hr Restarted 08/04/2023 2:52 PM EDT 20 mcg/min 15 mL/hr PHENYLephrine in NS (PF) (NARENDRA-SYNEPHRINE) 0.8 mg/10 mL (80 mcg/mL) multi-dose injection Syringe Intravenous, PRN, Starting on Debbie 08/04/23 at 1455, Until Debbie 08/04/23 at 1617, Anesthesia Intra-op, Routine Given 08/04/2023 2:55 PM EDT 80 mcg propofoL (Diprivan) 10 mg/mL bolus injection (Anesthesia) Intravenous, PRN, Starting on Debbie 08/04/23 at 1250, Until Debbie 08/04/23 at 1617, Anesthesia Intra-op Given 08/04/2023 2:28 PM EDT 30 mg Given 08/04/2023 2:15 PM EDT 100 mg Given 08/04/2023 12:57 PM EDT 100 mg remifentaniL (Ultiva) (0.02 mg/mL) infusion (Anesthesia) Intravenous, CONTINUOUS PRN, Starting on Debbie 08/04/23 at 1250, Until Debbie 08/04/23 at 1617, Anesthesia Intra-op Rate/Dose Change 08/04/2023 2:28 PM EDT 0.15 mcg/kg/min 35.505 mL/hr Rate/Dose Change 08/04/2023 2:22 PM EDT 0.1 mcg/kg/min 23. 67 mL/hr Rate/Dose Change 08/04/2023 2:14 PM EDT 0.2 mcg/kg/min 47. 34 mL/hr rocuronium (Zemuron) (10 mg/mL) multi-dose injection Intravenous, PRN, Starting on Debbie 08/04/23 at 1250, Until Debbie 08/04/23 at 1617, Anesthesia Intra-op, Routine Given 08/04/2023 2:32 PM EDT 20 mg Given 08/04/2023 1:15 PM EDT 50 mg Given 08/04/2023 12:50 PM EDT 50 mg sugammadex (Bridion) 100 mg/mL injection Intravenous, PRN, Starting on Debbie 08/04/23 at 1540, Until Debbie 08/04/23 at 1617, Anesthesia Intra-op, Routine Given 08/04/2023 3:40 PM EDT 400 mg documented in this encounter Care Teams Finish Repairer Relationship Specialty Start Date End Date Molina Herr MD [facility] [address] [place] [address] PCP - General 01/27/10 documented as of this encounter
--- OUTSIDE RECORDS SUMMARY | 2023-10-17 15:08 | XMS_ITS | Encounter Summary ---
Author Organization [facility] [place] [address] Care Team Providers Care Automated Process Operator Name Role Phone Molina Herr MD Primary Care Provider [phone] Encounter Details Date Type Department Care Team (Latest Contact Info) Description 07/28/2023 Travel Social History Tobacco Use Types Packs/Day Years Used Date Smoking Tobacco: Never Smokeless Tobacco: Never Alcohol Use Standard Drinks/Week Comments Not Currently 0 (1 standard drink = 0.6 oz pur e alcohol) nothing in a few months [facility] Utilities Answer Date [...] living in a custodial (including now)? No 07/29/2023 IPV Inpatient Questions Answer Date Recorded Does [...] AM EDT Office Visit [place] [address] Elly Alston MD [facility] DR HOSPICE AND [place] [address] 10/27/2023 1:00 PM EDT Office Visit [place] [address] Debra Franco, TURF AND GROUNDS SUPERVISOR 11/03/2023 2:00 PM EDT Office Visit [place] [address] Debra Franco, TUR[employer] AND GROUNDS SUPERVISOR 11/08/2023 2:30 PM EDT [place] [phone] Navjot Grider MD [facility] HEMATOLOGY [place] [address] 11/09/2023 1:45 PM EDT Office Visit Hematology and Oncology at [place] [address] Isabell Jacob MD [facility] [place] [place] [address] 11/11/2023 10:30 AM EDT Office Visit Radiation Oncology at [place] [address] Nicki Sharpe MD [facility] [place] [address] 11/15/2023 10:00 AM EDT Office Visit Speech Therapy at [place] [address] Debra Franco, TUR[employer] AND GROUNDS SUPERVISOR 11/16/2023 9:00 AM EDT Office Visit Hematology and Oncology at [place] [phone] Bisi Nam 11/22/2023 10:00 AM EDT Office Visit Speech Therapy at [place] [phone] Debra Franco, T[employer] AND GROUNDS SUPERVISOR 11/30/2023 9:00 AM EDT Office Visit Hematology and Oncology at [place] [phone] Bisi Nam 12/14/2023 9:00 AM EDT Office Visit Hematology [place] [address] Bisi Nam 12/28/2023 9:00 AM EDT Office Visit Hematology and Oncology at [place] [phone] Bisi Nam documented as of this encounter Visit Diagnoses Not on filedocumented in this encounter Care Teams Automated Process Operator Relationship Specialty Start Date End Date Molina Herr MD [address] [place] [address] PCP - General 01/27/10 documented as of this encounter
--- OUTSIDE RECORDS SUMMARY | 2023-10-17 15:08 | XMS_ITS | Encounter Summary ---
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 (WRVU 30.83) MICROSCOPE USE (WRVU 3.46) STEREOTACTIC COMPUTER-ASSTD NAVIGATIONAL CRANIAL INTRADURAL (WRVU 3.75) MODIFIER,STEALTH 2,Rolly García MD [facility] [place] [address] [facility] Referral ID Status Reason Start Date Expiration Date Visits Re quested Visits Authorized [id number] 1 1 Encounter Details Date Type Department Care Team (Latest Contact Info) Description 08/03/2023 9:16 AM EDT - 08/03/2023 11:59 PM EDT Hospital Encounter XRay at [address] [place] [id number] Primary osteoarthritis of right knee; Right leg pain Discharge Disposition: Home Social History Tobacco Use Types Packs/Day Years Used Date Smoking Tobacco: Never Smokeless Tobacco: Never Alcohol Use Standard Drinks/Week Comments Not Currently 0 (1 standard drink = 0.6 oz pur e alcohol) nothing in a few months [facility] Utilities Answer Date Recorded [...] in the past 12 m [facility], were you homeless or living in a intermediate (including now)? No 07/29/2023 DH IPV Inpatient [...] 20 mg by mouth daily. 4 03/08/2014 jhzwepezdrvld-ZW-rop c (SOURCE CF) 200-10 mcg-mg Chew Take [...] 2 times daily. 60 tablet 07/30/2023 08/25/2023 senna-docusate (Pericolace) 8.6-50 mg Tablet Take 2 tablets by mouth 2 times daily as needed for Constipation for up to 30 days. 07/06/2023 08/06/2023 polyethylene glycoL (Miralax) 17 gram/dose Powder Take 17 g by mouth 2 times daily as needed for up to 30 days. 07/06/2023 08/06/2023 aspirin EC 81 mg EC () tablet Take 1 tablet by mouth 2 times daily. 60 tablet 07/05/2023 08/06/2023 documented as of this encounter Plan of Treatment Upcoming Encounters Date Type Department Care Team (Late st Contact Info) Description 10/27/2023 11:15 AM EDT Office Visit Palliative Medicine at [place] [address] Elly Alston MD [facility] HOSPICE AND [place] [address] 10/27/2023 1:00 PM EDT Office Visit Speech Therapy at [place] [address] Debra Franco, SIGNS AND DISPLAYS SALES REPRESENTATIVE 11/03/2023 2:00 PM EDT Office Visit Speech Therapy at [place] [phone] Debra Franco, SIGNS AND DISPLAYS SALES REPRESENTATIVE 11/08/2023 2:30 PM EDT Appointment MRI at [place] [address] Navjot Grider MD [facility] [place] [address] 11/09/2023 1:45 PM EDT Office Visit Hematology and Oncology at [place] [address] Isabell Jacob MD [facility] [place] [address] 11/11/2023 10:30 AM EDT Office Visit Radiation Oncology at [place] [phone] Nicki Sharpe MD [facility] [place] [address] 11/15/2023 10:00 AM EDT Office [place] [address] Debra Franco, SIGNS AND DISPLAYS SALES REPRESENTATIVE 11/16/2023 9:00 AM EDT Office Visit Hematology [place] [address] Bisi Nam 11/22/2023 10:00 AM EDT Office [place] [address] Debra Franco SIGNS AND DISPLAYS SALES REPRESENTATIVE 11/30/2023 9:00 AM EDT Office Visit Hematology [place] [address] Bisi Nam 12/14/2023 9:00 AM EDT Office Visit Hematology [place] [address] Bisi Nam 12/28/2023 9:00 AM EDT Office Visit Hematology [place] [address] Bisi Nam documented as of this encounter Procedures Procedure Name Priority Date/Time Associated Diagnosis Comments XR KNEE STANDING ALIGNMENT AP LAT SKYLINE RIGHT Routine 08/03/2023 9:39 AM EDT Primary osteoarthritis of right knee Right leg pain documented in this encounter Results * XR Knee Standing Alignment AP Lat [place] Right (08/03/2023 9:39 AM EDT) [employer] WORKSTATION ID [id number] [facility] Anatomical Region Laterality Modality Knee Right Digital [...] who have questions please contact the health resident caregiver that requested your imaging first. ? Electronically signed by: Nathalie Jarquin MD, [facility] ([phone]), at 08/03/2023 12:45 PM Narrative 08/03/2023 12:45 [...] patients who have questions please contactthe health resident caregiver that requested your imaging first. Electronically signed by: Nathalie Jarquin MD, Radiology [place]([phone]), at 08/03/2023 12:45 PM Ernie Fuchs MD IMG DX ORDERABLES documented in this encounter Visit Diagnoses Diagnosis Primary osteoarthritis of right knee Primary localized osteoarthrosis, lower leg Right leg pain Pain in limb documented in this encounter Care Teams Breaker Oiler Relationship Specialty Start Date End Date Molina Herr MD [address] [place] [address] (work) PCP - General 01/27/10 documented as of this encounter
--- OUTSIDE RECORDS SUMMARY | 2023-10-17 15:08 | XMS_ITS | Encounter Summary ---
[place] [address] Care Team Providers Care Point Of Care Technician Name Role Phone Molina Herr MD Primary Care Provider [phone] Reason for Visit * Auth/Cert (Routine) Specialty Diagnoses / Procedures Referred By Flo t Referred To Contact Diagnoses left temp tumor Procedures PRO EXCIS SUPRATENT BRAIN TUMOR PRO MICROSURG TECHNIQUES, REQ OPER MICROSCOPE PRO STEREOTACTIC CPTR ASSTD PX CRANIAL, INTRADURAL @CRANI, FOR TUMOR, SUPRATENTORIAL, NOT MENINGIOMA (WRVU 30.83) MICROSCOPE USE (WRVU 3.46) STEREOTACTIC COMPUTER-ASSTD NAVIGATIONAL CRANIAL INTRADURAL (WRVU 3.75) MODIFIER,STEALTH 2,KINEVO Jhonny Dunlap MD [facility] [address] [place] [address] [facility] [place] Referral ID Status Reason Start Date Expiration Date Visits Re quested Visits Authorized [id number] 1 1 Encounter Details Date Type Department Care Team (Late st Contact Info) Description 08/04/2023 10:15 AM EDT - 08/04/2023 2:30 PM EDT Surgery [place] [id number] Jhonny Dunlap MD [facility] [address] [place] [address] @CRANI, FOR TUMOR, SUPRATENTORIAL, NOT MENINGIOMA (WRVU 30.83) Social History Tobacco Use Types Packs/Day Years Used Date Smoking Tobacco: Never Smokeless Tobacco: Never Alcohol Use Standard Drinks/Week Comments Not Currently 0 (1 standard drink = 0.6 oz pur e alcohol) nothing in a few months [facility] Utilities Answer Date Recorded In the past 12 months has th e [employer], gas, oil, or water [employer] threatened to shut off services in your [...] any time in the past 12 m [facility], were you homeless or living in a custodial (including now)? No 08/05/2023 IPV Inpatient Questions Answer Date Recorded Does [...] Sign Reading Time Taken Comments Blood Pressure 167/94 08/04/2023 9:12 AM EDT Pulse 78 08/04/2023 9:12 AM EDT Temperature 36.6 ??C (97.9 ??F) 08/04/2023 9:12 AM ED T Respiratory Rate 18 08/04/2023 9:12 AM EDT Oxygen Saturation 98% 08/04/2023 9:12 AM EDT Inhaled Oxygen Concentration - - Weight 78.9 kg (174 lb) 08/04/2023 9:12 AM EDT Height 172.7 cm (5' 8) 08/04/2023 9:12 AM EDT Body Mass Index 26.46 08/04/2023 9:12 AM EDT documented in this encounter Discharge Summaries * Michael Lundberg MD - 08/07/2023 11:29 AM EDT Images from the original note were not included. Patient Name: Perfecto Polk Patient Age: 82 y.o. Admit date: 08/04/2023 Discharge Date and Time: 08/07/23 11:31 AM Attending Physician: Jhonny Dunlap MD Discharging Provider: Michael Lundberg MD Discharging Service: NEUROSURGERY Operations/Major Procedures: Dr. Dunlap - 08/04/23- Left temporal craniotomy for tumor resection, frozen consistent with high-grade glioma. Procedure(s) (LRB): @CRANI, FOR TUMOR, SUPRATENTORIAL, NOT MENINGIOMA (WRVU 30.83) (Left) MICROSCOPE USE (WRVU 3.46) (N/A) STEREOTACTIC COMPUTER-ASSTD NAVIGATIONAL CRANIAL INTRADURAL (WRVU 3.75) (N/A) MODIFIER,STEALTH 2,KINEVO (N/A) Active Hospital Problems: Active Hospital Problems Diagnosis Brain tumor Resolved Hospital Problems No resolved problems to display. Active Non Hospital Problems: Active Non-Hospital Problems Diagnosis Total knee replacement status Acute appendicitis Primary osteoarthritis of left knee (DJD) Osteomyelitis Discitis of lumbar region Lumbar degenerative disc disease History of Presentation: Per review of relevant records Perfecto Polk is an 82 y.o. male with the above past medical history who presented to the office of Dr. Dunlap with reports of aphasia and memory loss, found to have a left temporal mass. Exam wassignificant for word finding difficulty and paraphasic errors. A tumor resection operation was offered and the patient elected to proceed. Hospital Course: On 08/04/23, Perfecto Polk was admitted to [facility] for left temporal tumor resection; there were no apparent complications intraoperatively. The incision was closed with guicho (to be removed on 08/18/23). Post-operatively, he was extubated and admitted to the neurosurgical service. Physical and occupational therapies evaluated the patient and recommended home with outpatient PT. Home medications were administered during the hospitalization and will be continued after discharge.Pre-operatively, they were taking ASA which should be restarted on 08/10. EEG was done for visual hallucinations while admitted to evaluate for possible seizures, but was negative and frequency decreased with decreasing decadron dosing. At time of discharge patient is afebrile, neurologically stable, tolerating a regular diet, ambulating independently, voiding spontaneously, and managing pain with oral pain medications. Important Studies and Lab Data: Labs: Recent Results (from the past 24 hour(s)) Basic Metabolic Panel (non-fasting) Result Value Ref Range Glucose Lvl 116 65 - 199 mg/dL BUN 25 (H) 10 - 20 mg/dL Creatinine 1.04 0.80 - 1.50 mg/dL Sodium 138 135 - 145 mmol/L Potassium 4.4 3.5 - 5.0 mmol/L Chloride 105 98 - 107 mmol/L CO2 23 22 - 31 mmol/L Anion Gap 10 5 - 15 mmol/L Calcium 8.6 8.5 - 10.5 mg/dL Estimated GFR 73 >=60 mL/min/1.73 m?? Magnesium Result Value Ref Range Magnesium 0.88 0.69 - 1.07 mmol/L Phosphorus Result Value Ref Range Phosphorus 2.9 2.5 - 4.5 mg/dL Hemogram Result Value Ref Range WBC 11.5 (H) 4.0 - 9.5 x10(3)/mcL RBC 3.50 (L) 4.58 - 5.54 x10(6)/mcL Hemoglobin 9.9 (L) 13.7 - 16.5 g/dL Hematocrit 30.5 (L) 40.5 - 48.5 % MCV 87.1 82.9 - 93.1 fL MCH 28.3 27.5 - 32.1 pg MCHC 32.5 32.0 - 35.7 g/dL Platelets 273 145 - 357 x10(3)/mcL RDWSD 46.5 (H) 36.0 - 45.0 fL RDWCV 14.7 (H) 11.4 - 13.8 % MPV 9.3 7.6 - 12.9 fL nRBC % Auto 0.0 % nRBC Abs Auto 0.000 0.000 - 0.000 x10(3)/mcL Differential, Automated Result Value Ref Range Neutrophils % 82.6 % Neutr Abs (ANC) 9.47 (H) 1.70 - 6.10 x10(3)/mcL Lymphocytes % 8.9 % Lymphocytes Abs 1.0 0.9 - 3.2 x10(3)/mcL Monocytes % 7.5 % Monocyte Abs 0.9 0.3 - 0.9 x10(3)/mcL Eosinophils % 0.0 % Eosinophils Abs 0.0 0.0 - 0.4 x10(3)/mcL Basophils % 0.1 % Basophils Abs 0.0 0.0 - 0.1 x10(3)/mcL Immature Gran % 0.90 % Kayley Gran Abs 0.10 (H) 0.00 - 0.04 x10(3)/mcL Studies: Scan Doc: Telemetry Strips Result Date: 08/05/2023 Ordered by an unspecified provider. Scan Doc: Telemetry Strips Result Date: 08/04/2023 Ordered by an unspecified provider. XR Knee Standing Alignment AP Lat [place] Right Result Date: 08/03/2023 EXAMINATION: XR KNEE STANDING ALIGNMENT AP LAT [place] RIGHT CLINICAL HISTORY: History of knee replacement M17.11, Unilateral primary osteoarthritis, right knee - M79.604, Pain in right leg (as entered by ordering provider in the order requisition) TECHNIQUE: Separate images of the pelvis, knees and feet were acquired in the AP projection with the patient standing. These images were stitched together to form a composite image of the pelvis and legs. AP and sunrise views the bilateral knees, lateral view the right knee. COMPARISON: Right knee radiograph May 11, 2023 FINDINGS: Mechanical axes right leg passes through the central tibial tray. Mechanical axis left leg passes through the medialtibial plateau. Unchanged bilateral hip joint space narrowing. Unchanged amorphous calcium deposition adjacent to the left greater trochanter. Bilateral tibiotalar joint spaces are preserved. Right knee: Status post right total knee arthroplasty. There is anterior knee soft tissue swelling with a small knee joint effusion. No periprosthetic fracture or bone resorption. Normal alignment of the knee joint. Left knee: Unchanged medial compartment narrowing with subchondral cystic change and subchondral sclerosis with marginal osteophyte formation. Unchanged severe lateral patellofemoral compartment narrowing. 1. Interval right total knee arthroplasty. No hardware complication. Indication is soft tissue swelling with a knee joint effusion is nonspecific, but presumably postsurgical. 2. Neutral alignment ofthe right knee. 3. Varus alignment of the left knee. 4. Insertional left gluteal calcific tendinopathy persists. Thank you for letting us participate in the care of this patient. If you are a health care provider and have any questions regarding this report, please contact the number below. For patients who have questions please contact the health pet care attendant that requested your imaging first. Electronically signed by: Nathalie Jarquin MD, [facility] ([phone]), at 08/03/2023 12:45 PM MRI Brain wo Contrast Result Date: 07/30/2023 EXAMINATION: MRI BRAIN WO CONTRAST CLINICAL [...] has a normal configuration on the right. Diffusion tensor imaging showing white matter tracts in the vicinity of the left temporal neoplasm as described above Thank you for letting us participate in the care of this patient. If you are a health care provider and have any questions regarding this report, please contact the number below. For patients who have questions please contact the health pet care attendant that requested your imaging first. Chest Abdomen Pelvis w Contrast (Generic) Result Date: 07/29/2023 EXAMINATION: CT CHEST ABDOMEN PELVIS W [...] soft tissue nodule in the anterior right chestwall without attachment to the skin. This has [...] exophytic hypodense fluid attenuating lesion is too smallto characterize, but favored to be a cyst. [...] surgically absent. Peritoneum and retroperitoneum: No free fluidor loculated fluid collection. No pneumoperitoneum. No mesenteric inflammation. Abdominal wall: Normal. Reproductive organs: Normal. Osseous structures: No suspicious lesions. Stable degenerative spinal changes. 1. No metastatic disease appreciated in the [...] in the care of this patient. If you are a health care provider and have any questions regarding this report, please contact the number below. For patients who have questions please contact the health pet care attendant that requested your imaging first. Brain wwo Contrast (Generic) Addendum Date: 07/28/2023 --------ADDENDUM #1-------- The Workflow Coordinator spoke with MURPHY Maldonado on 07/28/2023 7:06 PM to relay the results. Thank you for letting us participate in the care of this patient. If you area health care provider and have any questions regarding this report, please contact the number below. For patients who have questions please contact the health pet care attendant that requested your imaging first. --------ORIGINAL REPORT -------- EXAMINATION: MRI BRAIN WWO CONTRAST (GENERIC) CLINICAL HISTORY: change of mental status R41.0, Disorientation, unspecified TECHNIQUE: MRI of the brain was performed before and after the intravenous administration of 16cc Dotarem. COMPARISON: No previous brain studies. FINDINGS: Marrow signal intensity is normal. No osseous lesions are identified. Patient shows a quite large process identified in the left hemisphere. A mass is seen centered inthe left posterior temporal lobe measuring approximately 4 x 3 x 4 cm. It shows generally heterogeneous T2 hyperintensity and is associated with an extensive left hemispheric vasogenic edema pattern involving the temporal lobe, the posterior perez radiata, the visual radiations, the external and internal capsule on the left. Lesion shows a ring-enhancing appearance suggesting central necrosis. Th ere is minimal restricted diffusion. No abnormal abnormal blood products noted on susceptibility weighted images. Mass effect is moderately severe with a midline shift at the septum pellucidum of about 5 to 6 mm but there is compression of the left lateral ventricular system well appreciated on coronal images. The left uncus extends minimally into the suprasellar cistern and abuts the 3rd nerve as seen on coronal image 125 series 17. No additional lesions are identified. No abnormal meningeal enhancement is identified. No posterior fossa lesions. The major arterial flow voids are patent. There is anterior displacement of the left middle cerebral artery, M1 segment and elevation of the inferior division of the MCA on sagittal images Persistent occipital sinus, normal variant is noted. IMPRESSION: Large ring-enhancing mass centered in the left temporal lobe with vasogenic edema pattern asdescribed, and mass effect with compression of the left lateral ventricular system. These findings would be characteristic of a aggressive primary [employer] neoplasm such as glioblastoma or a very large metastasis. I have discussed the findings with the metrology technician and have recommended the patient be taken to the emergency department. I will expedite this report. Thank you for letting us participate in the care of this patient. If you are a health care provider and have any questions regarding this report, please contact the number below. For patients who have questions please contact the health pet care attendant that requested your imaging first. Addendum Date: 07/28/2023 --------ADDENDUM #1-------- The Workflow Coordinator spoke with MURPHY Maldonado on 07/28/2023 7:06 PM to relay the results. --------ORIGINAL REPORT -------- EXAMINATION: MRI BRAIN WWO CONTRAST (GENERIC) CLINICAL HISTORY: change of mental status R41.0, Disorientation, unspecified TECHNIQUE: MRI of the brain was performed before and after the intravenous administration of 16cc Dotarem. COMPARISON: No previous brain studies. FINDINGS: Marrow signal intensity is normal. No osseous lesions are identified. Patient shows a quite large process identified in the left hemisphere. A mass is seen centeredin the left posterior temporal lobe measuring approximately 4 x 3 x 4 cm. It shows generally heterog eneous T2 hyperintensity and is associated with an extensive left hemispheric vasogenic edema pattern involving the temporal lobe, the posterior perez radiata, the visual radiations, the external and internal capsule on the left. Lesion shows a ring-enhancing appearance suggesting central necrosis. There is minimal restricted diffusion. No abnormal abnormal blood products noted on susceptibilityweighted images. Mass effect is moderately severe with a midline shift at the septum pellucidum of about 5 to 6 mm but there is compression of the left lateral ventricular system well appreciated on coronal images. The left uncus extends minimally into the suprasellar cistern and abuts the 3rd nerve as seen on coronal image 125 series 17. No additional lesions are identified. No abnormal meningeal enhancement is identified. No posterior fossa lesions. The major arterial flow voids are patent. There is anterior displacement of the left middle cerebral artery, M1 segment and elevation of the inferior division of the MCA on sagittal images Persistent occipital sinus, normal variant is noted. IM PRESSION: Large ring-enhancing mass centered in the left temporal lobe with vasogenic edema patternas described, and mass effect with compression of the left lateral ventricular system. These findings would be characteristic of a aggressive primary [employer] neoplasm such as glioblastoma or a very largemetastasis. I have discussed the findings with the metrology technician and have recommended the patient be taken to the emergency department. I will expedite this report. Thank you for letting us participate inthe care of this patient. If you are a health care provider and have any questions regarding this report, please contact the number below. For patients who have questions please contact the health pet care attendant that requested your imaging first. Result Date: 07/28/2023 EXAMINATION: MRI BRAIN WWO CONTRAST (GENERIC) CLINICAL HISTORY: change of mental status R41.0, Disorientation, unspecified TECHNIQUE: MRI of the brain was performed before and after the intravenous administration of 16cc Dotarem. COMPARISON: No previous brain studies. FINDINGS: Marrow signal intensity is normal. No osseous lesions are identified. Patient shows a quite large process identified in the left hemisphere. A mass is seen centered in the left posterior temporal lobe measuring approximately 4 x 3 x 4 cm. It shows generally heterogeneous T2 hyperintensity and is associated with an extensive left hemispheric vasogenic edema pattern involving the temporal lobe, the posterior perez radiata, the visual radiations, the external and internal capsule on the left. Lesion shows a ring-enhancing appearance suggesting central necrosis. There is minimal restricted diffusion. No abnormal abnormal blood products noted on susceptibility weighted images. Mass effect is moderately severe with a midline shift at the septum pellucidum of about 5 to 6 mm but there is compression of the left lateral ventricular system well appreciated on coronal images. The left uncus extends minimally into the suprasellar cistern and abuts the 3rd nerve as seen on coronal image 125 series 17. No additional lesions are identified. No abnormal meningeal enhancement is identified. No posterior fossa lesions.The major arterial flow voids are patent. There is anterior displacement of the left middle cerebral artery, M1 segment and elevation of the inferior division of the MCA on sagittal images Persistentoccipital sinus, normal variant is noted. Large ring-enhancing mass centered in the left temporal lobe with vasogenic edema pattern as described, and mass effect with compression of the left lateral ventricular system. These findings would be characteristic of a aggressive primary [employer] neoplasm such as glioblastoma or a very large metastasis. I have discussed the findings with the metrology technician and have recommended the patient be taken to the emergency department. I will expedite this report. Thank you for letting us participate in the care of this patient. If you are a health care provider and have any questions regarding this report, please contact the number below. For patients who have questions please contact the [facility] care professi onal that requested your imaging first. Pending Studies and Lab Data: Final pathology Discharge Condition: Good Discharge to: Home Future Appointments and Orders Future Appointments and Orders Future Appointments Provider Department Dept Phone 08/31/2023 1:40 PM Tonya Plasencia PA Neurosurgery at [facility] Arrive at: [facility] [address] [phone] Please dispose of unused excess opioids before your appointment or bring them with you to the appointment and we will help you dispose of them correctly. 09/21/2023 9:10 AM Clinic, Dr Shila Zelaya Orthopaedics at [facility] Arrive at: [facility] [address] [phone] Future Orders Complete By Expires Referral to Neuro-Oncology [[id number] Custom] As directed Process Instructions: If no progress note charted, please enter Clinical details in comments. Scheduling Instructions: Questions: My question or request is: new high grade glioma diagnosis Referral to Radiation Oncology [[id number] Custom] As directed Process Instructions: If no progress note charted, please enter Clinical details in comments. Scheduling Instructions: Questions: My question or request is: new high grade glioma diagnosis Referral to Speech Therapy [[id number] Custom] As directed Process Instructions: Scheduling Instructions: Questions: Evaluation location?: In Clinic Reason for Speech Evaluation?: Recommended focus?: Discharge Medications: Your Medications Continued medications with new dosing Dose Details aspirin EC 81 mg EC (DR) tablet Take 1 tablet by mouth 2 times daily. Start taking on: August 11, 2023 What changed: These instructions start on August 11, 2023. If you are unsure what to do until then, ask your doctor or other care provider. 81 mg Quantity: 60 tablet Refills: 0 dexAMETHasone 1 mg tablet Commonly known as: Decadron Take 4 tablets by mouth every 6 hours for 3 days, THEN 4 tablets 2 times daily for 3 days, THEN 2 tablets 2 times daily for 3 days, THEN 1 tablet 2 times daily for 3 days, THEN 1 tablet daily for 3 days. Start taking on: August 06, 2023 What changed: medication strength See the new instructions. Quantity: 93 tablet Refills: 0 Continued medications, unchanged Dose Details * acetaminophen 500 mg tablet Commonly known as: Tylenol Take 2 tablets by mouth 3 times daily. 1,000 mg Quantity: 180 tablet Refills: 0 * acetaminophen 650 mg/20.3 mL Solution Commonly known as: Tylenol Take 31.2 mLs by mouth every 6 hours as needed (mild pain (1-3)). 1,000 mg Refills: 0 celecoxib 200 mg capsule Commonly known as: CeleBREX Take 1 capsule by mouth 2 times daily for 42 doses. 200 mg Quantity: 30 capsule Refills: 1 levETIRAcetam 500 mg tablet Commonly known as: Keppra Take 1 tablet by mouth 2 times daily. 500 mg Quantity: 60 tablet Refills: 0 levothyroxine 25 mcg tablet Commonly known as: Synthroid 25MCG = 1 Tablet(s), PO, Once daily Refills: 0 Lipitor 10 mg tablet Take 20 mg by mouth. Generic drug: atorvastatin 20 mg Refills: 0 ezjvkokukgqdm-ZH-ikhs 200-10 mcg-mg Tablet, Chewable Commonly known as: SOURCE CF Take 1 tablet by mouth daily. 1 tablet Refills: [address] capsule Commonly known as: PriLOSEC Take 20 mg by mouth daily. 20 mg Refills: 4 pantopraz[address] EC [address] tablet Commonly known as: Protonix Take 1 tablet by mouth daily. 40 mg Quantity: 30 tablet Refills: 0 polyethylene glycoL 17 gram/dose Powder Commonly known as: Miralax Take 17 g by mouth 2 times daily as needed for up to 30 days. 17 g Quantity: 255 g Refills: 0 senna-docusate 8.6-50 mg Tablet Commonly known as: Pericolace Take 2 tablets by mouth 2 times daily as needed for Constipation for up to 30 days. 2 tablet Refills: 0 traMADoL 50 mg tablet Commonly known as: Ultram Take 1 tablet by mouth every 6 hours as needed for Pain. 50 mg Quantity: 28 tablet Refills: 0 ubiquinone 100 mg capsule Commonly known as: Ubiquinone Take 200 mg by mouth once. 200 mg Refills: 0 * This list has 2 medication(s) that are the same as other medications prescribed for you. Read thedirections carefully, and ask your doctor or other care provider to review them with you. Updated Allergies/ADRs: Allergies Allergen Reactions Penicillins Adrienne HODGES Penicillin Allergy Risk Assessment 06/13/2023: Low risk penicillin allergy. OK to receive full dose of cefazolin, cefuroxime, or any 3rd or 4th+ generation cephalosporin. Commonly used phone numbers Neuro-oncology [phone] Radiation oncology [phone] Endocrinology [phone] Infectious disease [phone] Neurology [phone] Hematology/Oncology [phone] Plastic Surgery [phone] Trauma/General Surgery [phone] Urology [phone] Instructions Given to Patient at Discharge: Patient Instructions CRANIOTOMY FOR BRAIN TUMOR DISCHARGE INSTRUCTIONS PRESCRIPTION INSTRUCTIONS: Please see the medication reconciliation list on this discharge summary for a current list of your medications. You can restart your Aspirin on 08/11/23. WHEN TO SEEK MEDICAL CARE: Signs or symptoms of an infection - Fever over 101F - Redness, swelling, or increasing pain around your incision - Drainage of pus, blood, or clear fluid from your incision New neurologic symptoms - Worsening headaches not controlled with your pain medication - Drowsiness, confusion, and lethargy - Visual changes - Difficulty speaking or slurred speech - Facial droop - New weakness or sensory changes - New unsteadiness when walking - Seizures Constipation not relieved by diet and over the counter stool softeners and laxatives Nausea/vomiting (upset stomach) not controlled with anti-nausea medication Symptoms of a deep venous thrombosis (DVT) or pulmonary embolism (PE): - Swelling/warmth/redness of the leg - Pain in the leg, which can be worse with standing or walking - Chest pain or shortness of breath WOUND CARE: - Keep incisional site clean and dry. You can remove your dressing 2 days after surgery, if not removed prior to discharge. - You may shower and shampoo incisional site, per your usual routine, 4 days after surgery. - Do NOT submerge your head in water until after your sutures/guicho are removed. DIET: - You may resume your usual diet. - A well-balanced diet is recommended for wound healing. - Prune juice or prunes can be added to your diet to assist with any constipation. ACTIVITY: - You may increase your activities as tolerated. - Restrict strenuous activity (such as running, jumping, jogging, shoveling, etc.) until cleared byyour surgical team. - To help prevent a DVT: - Exercise regularly. Walking, at least several times daily, is helpful. - Ankle pump exercises (like pressing and releasing the gas pedal) should be done regularly. - Keep hydrated with water or other clear liquids (coffee/tea/cola can dehydrate you). - Avoid alcohol and crossing your legs. - Remember not to sit or lay in bed, while awake, for prolonged amounts of time. DRIVING: - Do not drive while taking narcotic pain medication. [x] Do NOT drive until cleared by Neurosurgery. FOLLOW UP PLAN: Incision: [x] Please follow up for suture/staple removal 10-14 days after your surgery (around 08/18/23with your Primary Care Provider or with the Neurosurgery RN. These also may be removed at rehab or by the [facility]. Appointments: Future Appointments Date Time Provider Department Center 08/31/2023 1:40 PM Tonya Plasencia PA [facility] [id number] [facility] 09/21/2023 9:10 AM Clinic, Dr Fuchs Team [facility] ORTH 3D [facility] [x] Please follow up in the Neurosurgery Clinic with Tonya Plasencia PA-C, on 08/31/23. Please call the Neurosurgery Office at [phone] if you need to re-scheduled the appointment. Imaging: [x] No Imaging required at follow-up. [x] Please follow up in the Neuro-Oncology Clinic per Ms. Plasencia's instructions. Please call the Neuro-Oncology Office at [phone] if you do not receive a scheduled appointment. [x] Please follow up in the Radiation Oncology Clinic per Ms. Plasencia's instructions. Please call the Radiation Oncology Office at [phone] if you do not receive a scheduled appointment. HOW TO REACH NEUROSURGERY Office Hours (Tuesday through Tuesday 8am-5pm): Call On weekends or after office hours (after 5pm or before 8am): Call [phone] and ask the marsh buggy operator to page the Neurosurgery Resident/Advanced Practice Provider insulation board calender operator. *Your surgeon may not be inspector precision (especially after office hours or on the weekend) so be ready totell about yourself and your surgery when you call. Neurosurgery Providers Adult Neurosurgery Dr. Jaimie Montesinos Pediatric Neurosurgery Dr. Tiny Velez Advanced Practice Providers Flora Rodrigues, Nurse Practitioner (outpatient telehealth) Tonya Plasencia, Physician Frame Stripper And Crusher (inpatient/outpatient: neuro-oncology) Terri Snell, Physician Frame Stripper And Crusher (inpatient) Osiris Ospina Physician Frame Stripper And Crusher (inpatient) Dajuan Ahmadi, Physician Frame Stripper And Crusher (inpatient) Horace Paulino, Nurse Practitioner (outpatient: pediatric) Lalita Gordon Nurse Practitioner (outpatient: vascular) Jess Fisher, Physician Frame Stripper And Crusher (outpatient: spine) William Zambrano Physician Frame Stripper And Crusher (outpatient) Outpatient Nurses Michael Lundberg MD 08/07/2023 documented in this encounter Discharge Instructions * Patient Instructions* Michael Lundberg MD - 08/05/2023 12:32 PM EDT CRANIOTOMY FOR BRAIN TUMOR DISCHARGE INSTRUCTIONS PRESCRIPTION INSTRUCTIONS: Please see the medication reconciliation list on this discharge summary for a current list of your medications. You can restart your Aspirin on 08/11/23. WHEN TO SEEK MEDICAL CARE: Signs or symptoms of an infection - Fever over 101F - Redness, swelling, or increasing pain around your incision - Drainage of pus, blood, or clear fluid from your incision New neurologic symptoms - Worsening headaches not controlled with your pain medication - Drowsiness, confusion, and lethargy - Visual changes - Difficulty speaking or slurred speech - Facial droop - New weakness or sensory changes - New unsteadiness when walking - Seizures Constipation not relieved by diet and over the counter stool softeners and laxatives Nausea/vomiting (upset stomach) not controlled with anti-nausea medication Symptoms of a deep venous thrombosis (DVT) or pulmonary embolism (PE): - Swelling/warmth/redness of the leg - Pain in the leg, which can be worse with standing or walking - Chest pain or shortness of breath WOUND CARE: - Keep incisional site clean and dry. You can remove your dressing 2 days after surgery, if not removed prior to discharge. - You may shower and shampoo incisional site, per your usual routine, 4 days after surgery. - Do NOT submerge your head in water until after your sutures/guicho are removed. DIET: - You may resume your usual diet. - A well-balanced diet is recommended for wound healing. - Prune juice or prunes can be added to your diet to assist with any constipation. ACTIVITY: - You may increase your activities as tolerated. - Restrict strenuous activity (such as running, jumping, jogging, shoveling, etc.) until cleared byyour surgical team. - To help prevent a DVT: - Exercise regularly. Walking, at least several times daily, is helpful. - Ankle pump exercises (like pressing and releasing the gas pedal) should be done regularly. - Keep hydrated with water or other clear liquids (coffee/tea/cola can dehydrate you). - Avoid alcohol and crossing your legs. - Remember not to sit or lay in bed, while awake, for prolonged amounts of time. DRIVING: - Do not drive while taking narcotic pain medication. [x] Do NOT drive until cleared by Neurosurgery. FOLLOW UP PLAN: Incision: [x] Please follow up for suture/staple removal 10-14 days after your surgery (around 08/18/23with your Primary Care Provider or with the Neurosurgery RN. These also may be removed at rehab or by the [facility]. Appointments: Future Appointments Date Time Provider Department Center 08/31/2023 1:40 PM Tonya Plasencia PA [facility] [id number] [facility] 09/21/2023 9:10 AM Clinic, Dr Fuchs Team [facility] ORTH 3D [facility] [x] Please follow up in the Neurosurgery Clinic with Tonya Plasencia PA-C, on 08/31/23. Please call the Neurosurgery Office at [phone] if you need to re-scheduled the appointment. Imaging: [x] No Imaging required at follow-up. [x] Please follow up in the Neuro-Oncology Clinic per Ms. Plasencia's instructions. Please call the Neuro-Oncology Office at [phone] if you do not receive a scheduled appointment. [x] Please follow up in the Radiation Oncology Clinic per Ms. Plasencia's instructions. Please call the Radiation Oncology Office at [phone] if you do not receive a scheduled appointment. HOW TO REACH NEUROSURGERY Office Hours (Tuesday through Tuesday 8am-5pm): Call On weekends or after office hours (after 5pm or before 8am): Call [phone] and ask the marsh buggy operator to page the Neurosurgery Resident/Advanced Practice Provider insulation board calender operator. *Your surgeon may not be inspector precision (especially after office hours or on the weekend) so be ready totell about yourself and your surgery when you call. Neurosurgery Providers Adult Neurosurgery Dr. Jaimie Montesinos Pediatric Neurosurgery Dr. Tiny Velez Advanced Practice Providers Flora Rodrigues, Nurse Practitioner (outpatient telehealth) Tonya Plasencia, Physician Frame Stripper And Crusher (inpatient/outpatient: neuro-oncology) Terri Snell, Physician Frame Stripper And Crusher (inpatient) Osiris Ospina, Physician Frame Stripper And Crusher (inpatient) Dajuan Ahmadi, Physician Frame Stripper And Crusher (inpatient) Horace Paulino, Nurse Practitioner (outpatient: pediatric) Lalita Gordon, Nurse Practitioner (outpatient: vascular) Jess Fisher, Physician Frame Stripper And Crusher (outpatient: spine) William Zambrano, Physician Frame Stripper And Crusher (outpatient) Outpatient Nurses documented in this encounter Medications at Time [...] 20 mg by mouth daily. 4 03/08/2014 [id number] (SOURCE CF) 200-10 mcg-mg Chew Take 1 [...] 07/30/2023 08/25/2023 documented as of this encounter Progress Notes * Melinda Calzada RN - 08/07/2023 1:43 PM EDT Perfecto Polk discharged to Home by private car with Patient, Spouse. All belongings sent with patient. CHENCHO removed, incision healing well, skin free from pressure ulcers. Discharge instructions, medications, and follow-up appointments reviewed, education provided on 08/06, paper prescriptions given to patient, all questions answered. * Andrei Simeon MD - 08/07/2023 8:37 AM EDT [facility] NEUROSURGERY PROGRESS NOTE DATE: 08/07/2023; HD: 3; ; : 1940 ID: Perfecto Polk is a 82 y.o. 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 08/04/23: L temporal craniotomy for tumor resection. INTERVAL Hx: -NOEMI -stayed for c/o visual hallucinations. Steroids decreased. MEDICATIONS: Scheduled Meds: psyllium husk 1 packet Oral Daily dexAMETHasone 4 mg Oral 2 times per day Followed by [START ON 08/09/2023] dexAMETHasone 2 mg Oral 2 times per day Followed by [START ON 08/12/2023] dexAMETHasone 1 mg Oral 2 times per day Followed by [START ON 08/15/2023] dexAMETHasone 1 mg Oral Daily lactulose 20 g Oral BID atorvastatin 20 mg Oral QPM levETIRAcetam 500 mg Oral BID levothyroxine 25 mcg Oral QAM pantoprazole EC 40 mg Oral Daily sodium chloride 0.9 % (flush) 5 mL Intravenous BID senna-docusate 2 tablet Oral BID polyethylene glycoL (MIRALAX) oral powder 17 g Oral Daily Continuous Infusions: PRN: acetaminophen, BUPivacaine-EPINEPHrine, sodium chloride 0.9 % (flush), lidocaine, bacitracin zinc-polymyxin B, thrombin (Bovine), HYDROmorphone EXAM: Temp: [36.4 ??C (97.5 ??F)-37.2 ??C (99 ??F)] Heart Rate: -- Resp: [16-18] BP: (99-143)/(65-83) SpO2: [95 %-99 %] Heart Rate from SpO2: [62 bpm-89 bpm] I/O: Intake/Output Summary (Last 24 hours) at 08/07/2023 0837 Last data filed at 08/07/2023 0818 Gross per 24 hour Intake 200 ml Output 1825 ml Net -1625 ml GEN: NAD, bright, conversational NEURO: A+Ox4 Speech is fluent and appropriate. Mild paraphasic errors intermittently. Able to name and repeat. PERRL. EOMI. No facial asymmetry Tongue midline MOTOR: RUE: 07/09 LUE: 5 RLE: 07/09 LLE: 07/09 No pronator drift LT sensation intact x 4 Incision CDI guicho LABS: Recent Labs 08/07/23 0540 08/06/23 0533 08/05/23 0113 WBC 11.5* 14.8* 15.9* HGB 9.9* 10.1* 10.5* PLATELET 273 271 279 Recent Labs 08/07/23 0540 08/06/23 0533 08/05/23 0113 NA 138 139 141 K 4.4 4.2 4.3 CL 105 106 107 CO2 23 24 21* BUN 25* 24* 24* CREATININE 1.04 1.09 1.15 No results for input(s): PT, INR in the last 72 hours. IMAGING: MRI Brain WWO 08/04: GTR without complication. Read pending A/P: Perfecto Polk is a 82 y.o. 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 s/p L temporal craniotomy for tumor resection. Doing well. Plan below. -Q4HNC -SBP <160 -Advance diet as tolerated -MRI brain wwo pending -Decadron 4mg q6h, 2 week taper -Radonc c/s -Ppx Keppra -GI Ppx -Activity as tolerated -PT/OT/HAND TOUCH UP PAINTER -DISPO: likely home today PROBLEM LIST: Glioma Cerebral edema Aphasia For question please call NSGY pager [phone] Andrei Simeon MD 08/07/2023 8:37 AM Clinical Documentation Improvement: Active Hospital Problems Diagnosis Brain tumor Resolved Hospital Problems No resolved problems to display. * Andrei Simeon MD - 08/06/2023 8:44 AM EDT [facility] NEUROSURGERY PROGRESS NOTE DATE: 08/06/2023; HD: 2; ; : 1940 ID: Perfecto Polk is a 82 y.o. 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 08/04/23: L temporal craniotomy for tumor resection. INTERVAL Hx: -NOEMI -Neuro stable MEDICATIONS: Scheduled Meds: psyllium husk 1 packet Oral Daily dexAMETHasone 4 mg Oral 2 times per day Followed by [START ON 08/09/2023] dexAMETHasone 2 mg Oral 2 times per day Followed by [START ON 08/12/2023] dexAMETHasone 1 mg Oral 2 times per day Followed by [START ON 08/15/2023] dexAMETHasone 1 mg Oral Daily lactulose 20 g Oral BID atorvastatin 20 mg Oral QPM levETIRAcetam 500 mg Oral BID levothyroxine 25 mcg Oral QAM pantoprazole EC 40 mg Oral Daily sodium chloride 0.9 % (flush) 5 mL Intravenous BID senna-docusate 2 tablet Oral BID polyethylene glycoL (MIRALAX) oral powder 17 g Oral Daily Continuous Infusions: PRN: acetaminophen, BUPivacaine-EPINEPHrine, sodium chloride 0.9 % (flush), lidocaine, bacitracin zinc-polymyxin B, thrombin (Bovine), HYDROmorphone EXAM: Temp: [36.7 ??C (98.1 ??F)-37.1 ??C (98.8 ??F)] Heart Rate: -- Resp: [12-16] BP: (115-139)/(61-82) SpO2: [96 %-98 %] Heart Rate from SpO2: [72 bpm-91 bpm] I/O: Intake/Output Summary (Last 24 hours) at 08/06/2023 0844 Last data filed at 08/05/20231999 Gross per 24 hour Intake 1340 ml Output 1050 ml Net 290 ml GEN: NAD, bright, conversational NEURO: A+Ox4 Speech is fluent and appropriate. Mild paraphasic errors intermittently. Able to name and repeat. PERRL. EOMI. No facial asymmetry Tongue midline MOTOR: RUE: 07/09 LUE: 07/09 RLE: 07/09 LLE: 07/09 No pronator drift LT sensation intact x 4 Incision CDI guicho LABS: Recent Labs 08/06/23 0533 08/05/23 0113 WBC 14.8* 15.9* HGB 10.1* 10.5* PLATELET 271 279 Recent Labs 08/06/23 0533 08/05/23 0113 NA 139 141 K 4.2 4.3 CL 106 107 CO2 24 21* BUN 24* 24* CREATININE 1.09 1.15 No results for input(s): PT, INR in the last 72 hours. IMAGING: MRI Brain WWO 08/04: GTR without complication. Read pending A/P: Perfecto Polk is a 82 y.o. 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 s/p L temporal craniotomy for tumor resection. Doing well. Plan below. -Q4HNC -SBP <160 -Advance diet as tolerated -MRI brain wwo pending -Decadron 4mg q6h, 2 week taper -Radonc c/s -Ppx Keppra -GI Ppx -Activity as tolerated -PT/OT/HAND TOUCH UP PAINTER -DISPO: likely home today PROBLEM LIST: Glioma Cerebral edema Aphasia For question please call NSGY pager [phone] Andrei Simeon MD 08/06/2023 8:44 AM Clinical Documentation Improvement: Active Hospital Problems Diagnosis Brain tumor Resolved Hospital Problems No resolved problems to display. * Andrei Simeon MD - 08/05/2023 11:08 AM EDT [facility] NEUROSURGERY PROGRESS NOTE DATE: 08/05/2023; HD: 1; ; : 1940 ID: Perfecto Polk is a 82 y.o. 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 08/04/23: L temporal craniotomy for tumor resection. INTERVAL Hx: -NOEMI -Neuro stable MEDICATIONS: Scheduled Meds: dexAMETHasone 4 mg Oral Q6H ADELITA Followed by [START ON 08/06/2023] dexAMETHasone 4 mg Oral 2 times per day Followed by [START ON 08/09/2023] dexAMETHasone 2 mg Oral 2 times per day Followed by [START ON 08/12/2023] dexAMETHasone 1 mg Oral 2 times per day Followed by [START ON 08/15/2023] dexAMETHasone 1 mg Oral Daily atorvastatin 20 mg Oral QPM levETIRAcetam 500 mg Oral BID levothyroxine 25 mcg Oral QAM pantoprazole EC 40 mg Oral Daily sodium chloride 0.9 % (flush) 5 mL Intravenous BID senna-docusate 2 tablet Oral BID ceFAZolin 1 g Intravenous Q8H polyethylene glycoL (MIRALAX) oral powder 17 g Oral Daily Continuous Infusions: PRN: BUPivacaine-EPINEPHrine, sodium chloride 0.9 % (flush), lidocaine, bacitracin zinc-polymyxin B, thrombin (Bovine), HYDROmorphone EXAM: Temp: [36.4 ??C (97.5 ??F)-37 ??C (98.6 ??F)] Heart Rate: [60-80] Resp: [10-25] BP: (103-149)/(54-97) SpO2: [95 %-100 %] Heart Rate from SpO2: [60 bpm-80 bpm] I/O: Intake/Output Summary (Last 24 hours) at 08/05/2023 1108 Last data filed at 08/05/2023 0800 Gross per 24 hour Intake 2062 ml Output 3600 ml Net -1538 ml GEN: NAD, bright, conversational NEURO: A+Ox4 Speech is fluent and appropriate. Mild paraphasic errors intermittently. Able to name and repeat. PERRL. EOMI. No facial asymmetry Tongue midline MOTOR: RUE: 5/5 LUE: 5/5 RLE: 5/5 LLE: 5/5 No pronator drift LT sensation intact x 4 Crani cap CDI LABS: Recent Labs 08/05/23 0113 WBC 15.9* HGB 10.5* PLATELET 279 Recent Labs 08/05/23 0113 NA 141 K 4.3 CL 107 CO2 21* BUN 24* CREATININE 1.15 No results for input(s): PT, INR in the last 72 hours. IMAGING: Post-op MRI pending. A/P: Perfecto Polk is a 82 y.o. 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 s/p L temporal craniotomy for tumor resection. Doing well. Plan below. -Q4HNC -SBP <160 -Advance diet as tolerated -MRI brain wwo pending -Decadron 4mg q6h -Ppx Keppra -GI Ppx -Activity as tolerated -PT/OT/HAND TOUCH UP PAINTER -DISPO: floor PROBLEM LIST: Glioma Cerebral edema Aphasia For question please call [facility] pager [phone] Andrei Simeon MD 08/05/2023 11:08 AM Clinical Documentation Improvement: Active Hospital Problems Diagnosis Brain tumor Resolved Hospital Problems No resolved problems to display. * Debra Franco, HAND TOUCH UP PAINTER - 08/05/2023 8:56 AM EDT Speech Therapy Evaluation Patient Profile: Perfecto Okeefe is an 82 y.o. 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 Dunlap. PMHx is significant for R TKA (~3-4 weeks prior to admission), OA, and carotid stenosis on ASA81. HAND TOUCH UP PAINTER services were consulted for aclinical swallow, language, and cognitive-linguistic evaluation, completed 08/05/2023. Prior Level of Function: Per chart review, pt presents with new aphasia and memory loss. Pt noted by nursing staff to tolerate ice chips and sips of water without difficulty, thus, diet was advanced to regular. He has been taking pills whole with liquids. Per formal interview, Maldonado denies a history of swallowing, language, or cognitive-communication deficits. Reports that he is now noticing difficulty with reading, word-finding, and memory. Also notes some tenderness in LEFT mandible and mild odynophagia which he attributes to recent surgery. Subjective: Maldonado was encountered at bedside with SO arriving during the session. This pt was pleasant and engaged throughout this session. Objective: Pt seen for evaluation today. Pain: Endorsed 5/10 headache in back of the head. PA arrived during this session to evaluate. Respiratory Status: Room air saturating at 98%. Vision: SO brought glasses but they were not donned; Appeared generally functional for this assessment Hearing: Hearing impairment, unaided - reported hearing aids are at home, but that they are not working Current Diet: Regular diet Feeding Status: Pt is independent Dependent for Oral Care? no Language Screening: Language Assessment Tool (LAST): Expression Index: NAMING Correct? Comments Pen Yes: 1 Cup Yes: 1 Toothbrush No: 0 Toothpen Straw No: 0 Toothpick - self-corrected to saying the /s/ sound and gesturing but was unable to name the item Hand Yes: 1 REPETITION 4 syllable word category Yes: 1 8 word sentence w/ 11 syllables: My mother will give me a birthday present Yes: 1 AUTOMATIC SPEECH Count from 1 to 10 Yes: 1 TOTAL (Expressive Index) 6 (Maximum score: 8 points) Receptive Index: RECOGNITION Correct? Comments Book Yes: 1 Car Yes: 1 Cruz Yes: 1 Cat Yes: 1 VERBAL INSTRUCTIONS Simple: Close your eyes Yes: 1 Semi-Complex: Point to the ceiling, then to the floor Yes: 1 Complex: Point to the floor before you close your eyes Yes: 1 TOTAL (Receptive Index) 7 (Maximum score: 7 points) TOTAL Score 13/15 (Maximum score: 15 points; less than 15 = further language assessment is warranted) Yes / No Reliability Screen Question: Patient Response Is your name (incorrect name)? Correct Is your name (incorrect name)? Correct Is your name (Perfecto)? Correct Are the lights on in this room? Correct Are you wearing red pajamas? Correct Is this a hospital? Correct Are you a doctor? Correct Do you eat lunch before dinner? Incorrect Does it snow in September? Correct Is a horse larger than a dog? Correct Total Accurate Responses (out of a possible 10) 9/10 90% accurate The Orientation Log (O-Log) Score City [address] 3 Name of hospital 3 Month 3 Date 3 Year 3 Day of week 3 Clock time 3 Etiology / event 3 Pathology Deficits 3 Total Score: 30/30 CRUZ: 3=spontaneous/free recall; 2=logical cueing; 1=multiple choice/phonemic cueing; 0=unable, incorrect, inappropriate The Orientation Log (O-Log) is designed to be a quick quantitative measure of orientational status for use at bedside with rehabilitation inpatients. Orientation Log Score: 30 Cognitive-Linguistic Status: Mildly confused altered from baseline cognition Benefited from looking at a calendar to aid in orientation - did not require cuing from HAND TOUCH UP PAINTER to functionally use the calendar Adequate spelling at the word level was appreciated Good insight into deficits- endorsed being highly motivated to improve Requested therapy materials to carry him over in between HAND TOUCH UP PAINTER sessions - provided information on theELERTSstBigSwerve Therapy adriana Follows Commands: Follows multi-step commands Clinical Swallow Assessment: Positioning: Pt up to chair Oral Motor Exam: WFL Impaired Comments STRUCTURES Facial Symmetry X Lips X Tongue X Adequate range and rate of motion; Fasciculations present Jaw X Palate/Velum X Dentition X OTHER Phonation X Intelligibility X Volitional Cough DNT Sensation X Endorsed mild jaw pain and odynophagia Secretion Management X Bolus Presentation(s) Tested Comments Thin liquids X Water via straw, single sips [place] thick liquids Honey thick liquids Pureed solids Dysphagia soft Mechanical soft Regular solids X Bolivar cracker Pills Other Oral Preparatory Phase Mastication: Appeared functional Oral Transit: Appeared functional Bolus Cohesion: Appeared functional Labial Seal / Loss: Not present Oral Stasis: None visualized Pharyngeal Phase Laryngeal Elevation: Appeared functional; unable to determine fully without instrumentation Vocal quality change: Not present Cough / throat clear: Not present Pt. complaint of food getting stuck: Not present Fatigue across trials: Not present Respiratory rate and respiratory swallow pattern: Appeared functional; No change in vital signs noted Esophageal Phase No overt clinical s/s of esophageal phase dysphagia noted during this evaluation. Compensatory Techniques: None needed to support a safe swallow. Education: Provided Maldonado with a handout detailing results of the inpatient evaluation and overall HAND TOUCH UP PAINTER recommendations/compensatory strategies. Re-educated on role of the HAND TOUCH UP PAINTER and overview of the rehab program. At the pt's request, this clinician provided information about [facility] Therapy adriana and the recommended exercises to address current deficits. At the end of the session pt denied outstanding questions or concerns. Pt status and results/recommendations were discussed with RN. Yaima [phone] with request for outpatient referral- confirmed with MURPHY Ospina. Assessment: Perfecto Okeefe was seen on 08/05/2023 for a skilled HAND TOUCH UP PAINTER evaluation targeting swallowing, language, and cognitive-communication. Swallowing: Oral mechanism exam was unremarkable except for lingual fasciculations, mild mandibular pain, and odynophagia that did not appear to impact swallowing efficacy. PO trials of thin liquids and regular solids were completed without overt s/s of aspiration. Maldonado denied any difficulty swallowing or concerns of dysphagia at this time. Recommend maintaining current diet orders for regular solids and thin liquids as the least restrictive diet. Language: Maldonado presented with fluent, expressive aphasia [...] also be beneficial in addressing cognitive-communication concerns. Recommend: skilled HAND TOUCH UP PAINTER services 2-4x per week while in-house, 1x per week outpatient to target language and cognitive-communication skills. Maldonado requested the referral to be sent to [facility] [place] for continuity of care. 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 Recommendations: Swallowing: Diet: Regular solids, Thin liquids PO medications: whole with sip of liquid Aspiration precautions: Excellent oral care x2/day recommended to prevent oral bacterial growth, oral built up of dried secretions and reduce risk for aspiration pneumonia Language and Cognitive-Communication: Constant therapy adriana recommendations: [...] mind??? I'll ask you later.?? Adapted from: [email or web address] Delirium precautions: Orientation: Provide visual and hearing aids Utilize cues such as calendars and clocks Encourage communication and reorient patient repeatedly Have familiar objects from patient's home in room Attempt consistency in Nursing Staff Allow television during the day with daily news Non-verbal music Environment: Sleep hygiene (dim light at nighttime, bright during the day) Limit excess noise (staff, equipment, visitors at night) Ambulate or mobilize patient early and often Monitor frequency of bowel movements Medication: Minimize deliriogenic meds (anticholinergics, narcotics, sedatives, histamine blockers,corticosteroids) Pt will benefit from continued HAND TOUCH UP PAINTER services while hospitalized and in the discharge location. Speech Therapy Goals: (To be met by discharge) Patient will participate in further language assessment and intervention while in-house to inform plan of care. Patient will participate in further cognitive-communication assessment and intervention while in-house to inform plan of care. Patient will teach back compensatory language strategies with 100% accuracy given minimal cueing. Patient will teach back compensatory cognitive-linguistic strategies with 100% accuracy given minimal cueing. Patient will utilize trained compensatory strategies to aid in communicative effectiveness across 5opportunities per session given minimal cueing. Plan: Therapy Frequency (HAND TOUCH UP PAINTER Eval): 2-4 times/wk Pt./family are in agreement with treatment plan. Total Minutes (Speech Language Pathology): 56 Thank you for this consult with this patient. Please feel free to page me with any questions or concerns. Debra Franco, MS, [facility]-HAND TOUCH UP PAINTER Speech-Language Pathologist Pager # [phone] * Beata Tapia, PT - 08/05/2023 8:45 AM EDT Images from the original note were not included. Physical Therapy Evaluation Patient profile: Perfecto Polk is a 82 y.o. 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 08/04/23: L temporal craniotomy for tumor resection. Patient with the following active problems: Past Medical History: Diagnosis Date Hyperlipidemia Lumbar degenerative disc disease 08/21/2010 Past Surgical History: Procedure Laterality Date PRO ARTHROPLASTY KNEE CONDYLE & PLATEAU MEDIAL & LAT COMPARTMENTS Right 07/05/2023 TOTAL KNEE ARTHROPLASTY (WRVU 19.6) performed by Ernie Fuchs MD at [facility] MAIN OR PRO COLONOSCOPY, BIOPSY 01/10/2013 COLONOSCOPY FLEXIBLE, WITH BX performed by Dominick Earl MD at [facility] ENDOSCOPY PRO COLONOSCOPY, REMV LESN, SNARE N/A 01/12/2018 COLONOSCOPY, POLYPECTOMY, REMOVAL LESION BY SNARE (WRVU 4.67) performed by Guerda Coombs MD at [facility] ENDOSCOPY PRO COLONOSCOPY, REMV LESN, SNARE N/A 01/20/2023 COLONOSCOPY, POLYPECTOMY, REMOVAL LESION BY SNARE (WRVU 4.57) performed by Guerda Coombs MD at [facility] ENDOSCOPY PRO LAP, APPENDECTOMY N/A 03/09/2017 LAPAROSCOPIC APPENDECTOMY (WRVU 9.45) performed by Saurav Chen MD at [facility] MAIN OR PRO UPPER GI ENDOSCOPY, DIAGNOSTIC N/A 06/11/2021 EGD, UPPER GI ENDOSCOPY performed by Guerda Coombs MD at [facility] ENDOSCOPY Social History: Patient lives with his significant other in a one-story home with 2 GLEN. Bathroom includes a walk-in shower with grab bars and a chair as well as a comfort-height toilet. At his baseline, patient is independent in all aspects. 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 Significant other is retired as well as available to assist. Patient has been attending outpatient PT for his recent R TKR and intends to resume his sessions. DME: Shower chair, RW, elevated toilet Precautions/Special Considerations: Fall Risk, memory impairment, act as kevin Mobility and Positioning Recommendations: Pt mobilizes with supervision Please encourage up to chair for meal times as able. Pt encouraged to ambulate frequently with staff, getting into the bathroom for toileting and walking out in the yang >/= 3 times daily as able. Subjective: ???My memory isn't good Objective: Pt seen for PT evaluation today. Pain: 5/10 pain at crani site Vital Signs: HR 99 SpO2 98% ora BP 135/86 (102) Mental Status: alert, oriented to person, place, and time Vision: Wears FT glasses. Difficulty reading, states he jumbles words as he is reading them. Musculoskeletal: ROM: BLE WFL, hx of recent R TKR Strength: BLE grossly WFL, recent TKR Sensation: not formally assessed Bed Mobility: Supine to Sit: supervision Sit to Supine: supervision Transfers: Sit to Stand: supervision Stand to Sit: supervision Bed to Chair:supervision Gait: Distance: 150 ft Device used: none Level of assist: supervision Gait mechanics: reciprocal steady, no LOB noted Balance: Sitting Static: good Sitting Dynamic: good Standing Static: good Standing Dynamic / Gait: fair Able to stay with feet together, eyes open Swaying on feet together, eyes open, but no hip or stepping strategies Education: patient has been educated on Bed mobility, Transfers, Safety , Precautions/protocol, Gait , Role of therapy, Balance, and Discharge planning and verbalizes understanding. Patient status, treatment, and mobility recommendations discussed with nursing. Assessment: Perfecto Polk was seen today for physical therapy evaluation and presents with the following impairments: Mildly impaired dynamic balance, ROM and strength impairments related to a recent TKR, language and cognitive- communications deficits, and a decreased activity tolerance, all of which impact patient's current functional status. At his baseline, patient lives with his SO and is independent in all aspects. During this assessment, patient ambulated around the unit in a steady gait. He reports he plans on resuming outpatient PT for his recent R TKR. Recommend additional outpatient HAND TOUCH UP PAINTER for his current speech impairments (see HAND TOUCH UP PAINTER note for detail). No further inpatient PT need identified, please encourage frequent time up in the chair and ambulation as tolerated. Discharge Recommendations: Based on the current findings, Anticipated Discharge Disposition (PT): Home with outpatient PT (forhis knee, already on schedule) and outpatient HAND TOUCH UP PAINTER Consult Recommendations: No other consults recommended at this time. Equipment needs: No equipment necessary . Plan: Therapy Frequency (PT): evaluation only 2017 PT Evaluation Code Rationale: Diagnosis & Pertinent Co-Morbidities, personal factors, and present illness affecting Plan of Care: (see above); Additional personal factors or co- morbidities that impact plan: Total # of Factors: 0 1-2 3+ x Examination of body system impairments, functional limitations and behaviors, and/or participation restrictions. Addressing 1-2 elements x Addressing 3 + elements Addressing 4 + elements Clinical presentation: See assessment above. Stable/Uncomplicated Evolving/Fluctuating Symptoms Unstable/Unpredictable x Clinical decision making of low complexity based on pt's functional performance as outlined in thisevaluation. Time IN / OUT: 9983-0081 Beata Tapia, DPT Board-Certified Clinical Specialist in Geriatric Physical Therapy Board-Certified Clinical Specialist in Neurologic Physical Therapy Inpatient/outpatient Rehab [facility] * Tab Campos, OT - 08/05/2023 8:45 AM EDT Occupational Therapy Evaluation Patient profile: Perfecto Polk is a 82 y.o. 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 08/04/23: L temporal craniotomy for tumor resection. Past Medical History: Diagnosis Date Hyperlipidemia Lumbar degenerative disc disease 08/21/2010 Past Surgical History: Procedure Laterality Date PRO ARTHROPLASTY KNEE CONDYLE & PLATEAU MEDIAL & LAT COMPARTMENTS Right 07/05/2023 TOTAL KNEE ARTHROPLASTY (WRVU 19.6) performed by Ernie Fuchs MD at [facility] MAIN OR PRO COLONOSCOPY, BIOPSY 01/10/2013 COLONOSCOPY FLEXIBLE, WITH BX performed by Dominick Earl MD at [facility] ENDOSCOPY PRO COLONOSCOPY, REMV LESN, SNARE N/A 01/12/2018 COLONOSCOPY, POLYPECTOMY, REMOVAL LESION BY SNARE (WRVU 4.67) performed by Guerda Coombs MD at [facility] ENDOSCOPY PRO COLONOSCOPY, REMV LESN, SNARE N/A 01/20/2023 COLONOSCOPY, POLYPECTOMY, REMOVAL LESION BY SNARE (WRVU 4.57) performed by Guerda Coombs MD at [facility] ENDOSCOPY PRO LAP, APPENDECTOMY N/A 03/09/2017 LAPAROSCOPIC APPENDECTOMY (WRVU 9.45) performed by Saurav Chen MD at [facility] MAIN OR PRO UPPER GI ENDOSCOPY, DIAGNOSTIC N/A 06/11/2021 EGD, UPPER GI ENDOSCOPY performed by Guerda Coombs MD at [facility] ENDOSCOPY Social History: Patient lives with his s.o.(Ella) in [place], [place]. Both are retired. Home Setup: 1 level, 2 GLEN, has a stall shower w/ grab bars DME: cane, grab bars, shower seat. Baseline ADL/Mobility: Pt was independent w/ADL's and IADL's, driving, etc. Pt had his R TKA 3 weeks ago. Precautions/Special Considerations: at risk to fall, SBP: 90-160, activity as tolerated, regular diet, expressive communication impairments Subjective: I don't remember names. Objective: Seen today for OT evaluation. Some things are backwards. Cognitive Status/Behavior: Behavior / Mood: alert and cooperative Alert and oriented to: person, place, date, month, year, day of week, time of day, and situation Follows commands: 1 step, 100% of the time, and requires increased time Attention: WFL Safety awareness: may not fully understand all of his deficits ; not always aware of his errors Poor memory-reports difficulty recalling what he had for breakfast sometimes) though able to recallthis morning Vision & Perception: Wears corrective lenses all the time-not present (left at home) Ocular ROM intact Many errors noted when reading a paragraph but expressive communication impairments may be contributing Difficulty interpreting the time on the clock (seemed to miss the left side) then said it was 9:68 (when it was 8:57) Communication: expressive aphasia-many errors when communicating-sometimes able to talk around something (foam/lotion for toothpaste); some perseveration, unable to recall his PCP's name; HAND TOUCH UP PAINTER in at end of session for further assessment Range of motion, strength, coordination: Hand dominance: right Bilateral UEs are within functional limitations for strength/ROM/coordination LE limitations: grossly WFL, recent (3 weeks ago?) L TKA Sensation: denies numbness/tingling Activities of Daily Living: Self-feeding: independent Grooming: standing at the sink w/ setup Dressing: able to reach feet to don/doff socks/shoes Bathing: able to in house counsel place w/ eyes closed w/ slight sway but not LOB; has grab bars, s.o. could help if needed Toileting: Transfer: supervision Hygiene: no anticipated deficits Functional Mobility: Sit to stand: supervision w/ no device Ambulation: pt ambulated >300' with no device, supervision Stand to sit: supervision Balance: Sitting balance: good Standing balance: supervision with no device Vitals: HR: 90's, Sp02: 98% on RA, BP: 135/86 (102) Pain: 5/10 headache Skin: not assessed Education: Patient was educated on Role of occupational therapy/rehabilitation, Transfers, ADL, Safety, Functional Mobility, Balance, Recommendations, and Discharge planning and verbalizes understanding. Patient status, treatment, and mobility recommendations discussed with nursing. Assessment: Pt was seen for occupational therapy evaluation. Perfecto Polk presents with the following performance skill deficits and client factors: increased pain, decreased activity tolerance, cognitive deficits with impaired memory and decreased awareness of his deficits, and expressive communication deficits. Despite having right total knee surgery ~ 3 weeks ago and being POD # 1 s/p cranifor tumor resection, Maldonado is mobilizing well with out a device and demonstrating the ability to manage his ADL's. Recommend supervision/assist with IADL tasks given cognitive and communication impairments. Recommend follow up with outpatient HAND TOUCH UP PAINTER for cognitive and language interventions. Do not anticipate any acute OT needs at this time. Anticipate that pt will return home with assistance once medically ready. Do not anticipate further OT needs while hospitalized. Equipment Recommendations: Equipment Needs Upon Discharge (OT): None Anticipated Discharge Disposition (OT): home with supervision, home with outpatient therapy services (outpatient HAND TOUCH UP PAINTER for cognition and language) Other Recommendations: Ambulate as tolerated with supervision Encourage participation in ADL's by providing set up A on tray table and physical assist only as needed. Other Recommendations: No other consults recommended at this time Plan: OT: Therapy Frequency (OT): evaluation only Total Minutes, Occupational Therapy: 25 (initial evaluation, 8:45-9:10) OT Evaluation Code Rationale: Diagnosis & Pertinent Co-Morbidities affecting Plan of Care: see PMHx Occupational Profile & Client History: Brief Expanded Extensive x Assessment of Occupational Performance: 1-3 performance deficits 3-5 performance deficits x 5 + performance deficits Clinical Decision Making: Low Moderate High x Clinical decision making of moderate complexity using standardized patient assessment instrument and measurable assessment of functional outcome. Pager: [phone] TAB CAMPOS OT 08/05/2023 Occupational Therapy Rehabilitation Department * Ayah More RN - 08/04/2023 6:38 PM EDT Pt arrived from OR to NCCU at approximately 1630. Hemodynamically stable, alert and oriented x4, PERRLA, 5/5 strengths throughout; denies numbness/tingling. Face symmetrical with no reports of sensation impairment to facial region. Speech clear, spontaneous and logical. Intact visual pretty overall, some slight blurred vision/deficit in left visual field on assessment with Dr. Dunlap. Pt endorsing headache pain 10/14, IV Tylenol given. Pt on RA, lungs clear and equal throughout. Abdomen soft,non-tender. Pt reports no BM for three days. Bowel reg ordered. Pt tolerated ice chips and sips of water without issue,diet advanced to regular. Able to take pills whole. Pt arrived with ferguson catheter, removed shortly after arrival given no indication. Pt due to void at 1999. Pt's and daughter at bedside, supportive of patient. Will continue ICU post- operative crani monitoring at this time. * Savana Lion MD - 08/04/2023 4:27 PM EDT [facility] NEUROSURGERY PROGRESS NOTE DATE: 08/04/2023; HD: 0; ; : 1940 ID: Perfecto Polk is a 82 y.o. 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 08/04/23: L temporal craniotomy for tumor resection. INTERVAL Hx: -Post-op check -Doing well, minimal pain, speaking well MEDICATIONS: Scheduled Meds: vancomycin 1 g Intravenous Once Continuous Infusions: lactated Ringers Stopped (08/04/23 1543) PRN: sodium chloride 0.9 % (flush), lidocaine, BUPivacaine-EPINEPHrine, bacitracin zinc-polymyxin B, thrombin (Bovine) EXAM: Temp: [36.6 ??C (97.9 ??F)] Heart Rate: [78] Resp: [18] BP: (167)/(94) SpO2: [98 %] Heart Rate from SpO2: -- I/O: Intake/Output Summary (Last 24 hours) at 08/04/2023 1627 Last data filed at 08/04/2023 1602 Gross per 24 hour Intake 902 ml Output 1400 ml Net -498 ml GEN: NAD, bright, conversational NEURO: A+Ox4 Speech is fluent and appropriate. Mild paraphasic errors intermittently. Able to name and repeat. PERRL. EOMI. No facial asymmetry Tongue midline MOTOR: RUE: 5/5 LUE: 5/5 RLE: 5/5 LLE: 5/5 No pronator drift LT sensation intact x 4 Crani cap CDI LABS: No results for input(s): WBC, HGB, PLATELET in the last 72 hours. No results for input(s): NA, K, CL, CO2, BUN, CREATININE in the last 72 hours. Invalid input(s): OSMOLALITY No results for input(s): PT, INR in the last 72 hours. IMAGING: Post-op MRI pending. A/P: Perfecto Polk is a 82 y.o. 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 POD0 s/p L temporal craniotomy for tumor resection. Doing well. Plan below. -Admit to NSGY, ICU level of care -Q1H neuro checks -SBP <160 -Advance diet as tolerated -MRI brain wwo pending -Decadron 4mg q6h -Ppx Keppra -GI Ppx -Activity as tolerated -PT/OT/HAND TOUCH UP PAINTER -DISPO: ICU PROBLEM LIST: Glioma Cerebral edema Aphasia For question please call NSGY pager [phone] Savana Lion MD 08/04/2023 4:27 PM [facility] Neurosurgery Inpatient Pager: #[phone] Personal Pager: #[phone] Clinical Documentation Improvement: Active Hospital Problems Diagnosis Brain tumor Resolved Hospital Problems No resolved problems to display. * Jhonny Dunlap MD - 08/04/2023 10:25 AM EDT 24 hr update. Pt seen in SDS. No changes to baseline memory issues and dysphasia. Motor intact. VFF to confrontation. 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 documented in this encounter H&P Notes * Jade Kaplan PA - 08/04/2023 4:41 PM EDT NEUROCRITICAL CARE HISTORY & PHYSICAL Date of Admission: No admission date for patient encounter. HPI: 82 yo RH male with presenting today for elective left craniotomy for resection of left temporal mass with Dr. Dunlap. Pt initially presented on 07/27 with progressively worsening word-finding difficulty and memory issues since his recent R TKA ~3-4 weeks ago; MRI obtained amidst workup, revealing large left temporal mass. Intra-operative course was uneventful, EBL 100cc. Pt now admtted to NCCU for close [id number]. ROS: Gen: denies fever, chills, fatigue, malaise, weight loss Eyes: denies blurring, diplopia, vision loss, photophobia CV: denies chest pain, palpitations, lightheadedness, syncope, dyspnea on exertion Resp: denies SOB, cough GI: denies nausea, vomiting, diarrhea, constipation, abdominal pain Neuro: as per HPI; denies weakness, POLLARD, paresthesias, seizures, tremors, vertigo, balance problems Past Medical History: Diagnosis Date Hyperlipidemia Lumbar degenerative disc disease 08/21/2010 Past Surgical History: Procedure Laterality Date PRO ARTHROPLASTY KNEE CONDYLE & PLATEAU MEDIAL & LAT COMPARTMENTS Right 07/05/2023 TOTAL KNEE ARTHROPLASTY (WRVU 19.6) performed by Ernie Fuchs MD at [facility] MAIN OR PRO COLONOSCOPY, BIOPSY 01/10/2013 COLONOSCOPY FLEXIBLE, WITH BX performed by Dominick Earl MD at [facility] ENDOSCOPY PRO COLONOSCOPY, REMV LESN, SNARE N/A 01/12/2018 COLONOSCOPY, POLYPECTOMY, REMOVAL LESION BY SNARE (WRVU 4.67) performed by Guerda Coombs MD at [facility] ENDOSCOPY PRO COLONOSCOPY, REMV LESN, SNARE N/A 01/20/2023 COLONOSCOPY, POLYPECTOMY, REMOVAL LESION BY SNARE (WRVU 4.57) performed by Geurda Coombs MD at [facility] ENDOSCOPY PRO LAP, APPENDECTOMY N/A 03/09/2017 LAPAROSCOPIC APPENDECTOMY (WRVU 9.45) performed by Saurav Chen MD at [facility] MAIN OR PRO UPPER GI ENDOSCOPY, DIAGNOSTIC N/A 06/11/2021 EGD, UPPER GI ENDOSCOPY performed by Guerda Coombs MD at [facility] ENDOSCOPY Social History Tobacco Use Smoking status: Never Smokeless tobacco: Never Substance Use Topics Alcohol use: Not Currently Comment: nothing in a few months No medications prior to admission. Vital Sign Ranges: Last value Range last 24 hrs Temperature Temp: -- Heart Rate Heart Rate: -- Blood Pressure BP: -- Respiratory Rate Resp: -- SpO2 SpO2: -- Art BP BP (Arterial Line): -- Lines/Drains/Airways: Incision 07/05/23 0936 Right;anterior knee (Active) Labs: No results found for this or any previous visit (from the past 24 hour(s)). Imaging: MRI Brain wo Contrast Impression Diffusion tensor imaging showing white matter tracts in the vicinity of the left temporal neoplasm as described above Chest Abdomen Pelvis w Contrast (Generic) Impression 1. No metastatic disease appreciated in the chest, abdomen or pelvis. 2. Small right chest wall subcutaneous nodule, increased from 2018 but otherwise nonspecific. Low suspicion of malignancy. 3. Cholelithiasis and small polyps or mural nodules. No suspicion of primary malignancy. Consider follow-up outpatient ultrasound to check size stability. : Results for orders placed or performed during the hospital encounter of 07/05/23 EKG 12 Lead Result Value Ref Range Ventricular rate 68 BPM Atrial Rate 68 BPM P-R Interval 268 ms QRS Duration 90 ms Q-T Interval 366 ms QTC Calculated (Bezet) 389 ms Calculated P [place] 41 degrees Calculated R [place] -18 degrees Calculated T [place] 25 degrees INTERPRETATION Sinus rhythm with 1st degree A-V block Possible Anterior infarct , age undetermined Abnormal ECG No previous ECGs available Confirmed by MD Joelle, Magdi ([id number]) on 07/05/2023 2:33:35 PM Physical Exam: General: well-developed, appears stated age, NAD HEENT: normocephalic, atraumatic, MMM, Neck: supple, no JVD, no carotid bruit, CV: RRR, S1S2 normal, no murmurs/rubs/gallops, cap refill < 2 seconds Pulm: clear BL Abd: soft, non-distended, non-tender, no rebound or guarding; normal BS x 4 Ext: no cyanosis, clubbing or edema Skin: warm, dry, intact; no rashes, lesions, erythema Surgical Site: dressing c/d/i Neuro: MS: AAOx4, NAD, follows all commands and cooperates with exam; very subtle parapharisc errors CN: PERRL, VFFTC, gaze conjugate, EOMI, no facial asymmetry, tongue midline MOTOR: no drift, BUE 5/5 throughout, BLE 5/5 throughout SENSATION: intact and symmetric to LT in BUE/BLE CEREBELLUM: FTN intact, HTS intact, no dysmetria, no nystagmus ASSESSMENT & PLAN: 82 yo RH male presenting with word-finding difficulty and memory issues 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 now s/p left craniotomy for tumor resection POD #0 # Neuro- - q1h neuro checks, VS - MRI brain w/wo for post-op eval of tumor resection - dex 4q6 - keppra 500q12 for sx ppx - HOB > 30 deg - analgelsia: tylenol, oxycodone prn # CV - - SBP goal < 160 - maintain arterial line for close BP monitoring - HLD: continue atorvastatin 20mg daily # Pulm - - goal O2 sats > 92% - continue chest PT/pulm toileting - IS 10x q1h while awake # GI - - diet: sips/chips for now --> ADAT - maintain bowel reg - continue home PPI # FEN/ - - continue IVF until tolerating full diet - daily BMP, Mg, PO4 - d.c ferguson # Heme - - daily CBC - SCDs only for DVT ppx, hold chemoppx # Endo - - goal glucose 120-180 - Hypothyroidism: continue levothyroxine 25mcg daily # ID - - for temp > 38.4 C --> UA, CXR, blood cx, sputum cx - tylenol PRN - ludivina-op ppx T/L/D - arterial line, PIV x 2 Code Status - History Dispo - NCCU Misti Betts APRN Neurocritical Care, [id number] documented in this encounter Procedure Notes * Flora Hagen MD - 08/06/2023 6:05 PM EDTAssociated Order(s): EEG CONTINUOUS MONITORING INPATIENT [facility] Department of Neurology Inpatient Continuous Video EEG Report Name of the Patient: Perfecto Polk Date of : 1940 Date of Service: 08/06/2023 Referring physician: Michael Lundberg MD Reading Fellow: none Reading Attending: Ti Initial time and date cEEG monitoring started: 17:36 on 08/06/2023 report EEG end time: 23:09 pm 08/07/23 Total recording time: 33h 33 min Indication for cvEEG: Seizure and Other (Visual disturbances across visual pretty) BRIEF HISTORY: Perfecto Polk is a 82 y.o. 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 Experiencing persistent visual disturbances. MEDICATIONS: Current Facility-Administered Medications: psyllium husk 1 packet, 1 packet, Oral, Daily, Tiffani Adam MD, 1 packet at 08/06/23 0900 [] dexAMETHasone (Decadron) tablet 4 mg, 4 mg, [...] mg, 1 mg, Oral, 2 times per dayFOLLOWED BY [START ON 08/15/2023] dexAMETHasone (Decadron) tablet 1 mg, 1 mg, Oral, Daily, Osiris Ospina PA acetaminophen (Tylenol) tablet 975 mg, 975 mg, Oral, Q6H PRN, Dajuan Ahmadi PA, 975 mg at 08/05/23 1541 lactulose (Chronulac) (0.67 gram/mL) oral liquid 20 g, 20 g, Oral, BID, Tiffani Adam MD, 20g at 08/06/23 0910 BUPivacaine-EPINEPHrine (Marcaine-epiNEPHrine) 0.25 %-1:200,000 injection, , , PRN, Kavita Dunlap MD, 9 mL at 08/04/23 1322 atorvastatin (Lipitor) tablet 20 mg, 20 mg, Oral, QPM, Savana Lion MD, 20 mg at 08/06/23 1736 levETIRAcetam (Keppra) tablet 500 mg, 500 mg, Oral, BID, Savana Lion MD, 500 mg at 08/06/232011 levothyroxine (Synthroid) tablet 25 mcg, 25 mcg, Oral, QAM, Savana Lion MD, 25 mcg at 08/07/23 0510 pantoprazole EC (Protonix) tablet 40 mg, 40 mg, Oral, Daily, Savana Lion MD, 40 mg at 08/06/23 0910 sodium chloride 0.9 % (flush) (BD PosiFlush Normal Saline 0.9) flush 5 mL, 5 mL, Intravenous, BID, Savana Lion MD, 5 mL at 08/06/232011 sodium chloride 0.9 % (flush) (BD PosiFlush Normal Saline 0.9) flush 5-20 mL, 5- 20 mL, Intravenous,Q1 Min PRN, Savana Lion MD lidocaine (Xylocaine) 1% (10 mg/mL) injection 3 mg, 0.3 mL, Subcutaneous, Once PRN, Savana Lion MD senna-docusate (Pericolace) 8.6-50 mg per tablet 2 tablet, 2 tablet, Oral, BID, Savana Lion MD, 2 tablet at 08/06/23 0910 bacitracin zinc-polymyxin B (Polysporin) ointment, , , PRN, Jhonny Dunlap MD, 1 oz at 547 thrombin (Bovine) (Thrombinar) kit, , , PRN, Fabi Jhonny Luther MD, 20,000 Units at 08/04/23 1548 polyethylene glycoL (Miralax) packet 17 g, 17 g, Oral, Daily, KaplanJade PA, 17 g at 08/06/23 0910 HYDROmorphone (Dilaudid) tablet 2 mg, 2 mg, Oral, [...] applied using the paste/collodion method of application. In addition to EEG the patient was monitored for EKG. Video was recorded during the session. FORESTRY EXTENSION SPECIALIST'S REPORT: Performed by: Jhonny Schuler At the onset of the recording the patient was awake and cooperative. Movement and other artifact was significant. Comments: None ELECTROENCEPHALOGRAPHER'S REPORT Background: The background was continuous and spontaneously reactive composed of normal voltage, 10 to 60 ??V, nicely organized anterior to posterior gradient with frontally predominant beta and posterior alpha frequencies. There was a 9 Hz posterior dominant rhythm that attenuated with eye opening. Focal Asymmetries: There was persistent asymmetric L temporal slowing. Sleep: Sleep was characterized by decreased myogenic artifact and increased slowing. There were symmetric N2 sleep transients present including sleep spindles and K complexes. Periods of REM were also recorded. Interictal Activity: [...] the patient's mass. FLORA HAGEN MD 08/07/2023 * Flora Hagen MD - 08/06/2023 6:00 PM EDT Preliminary continuous video EEG Note: 08/06/2023 - 6:00 PM Start Time: 17:35:47 Review of the first 15 minutes of this cEEG recording shows no seizures or epileptiform activity. Formal report will follow. FLORA HAGEN MD documented in this encounter Miscellaneous Notes * Plan of Care - Melinda Calzada RN - 08/07/2023 1:36 PM EDT Perfecto Polk discharged to Home by private car with Patient, Spouse. All belongings sent with patient. CHENCHO removed, incision healing well, skin free from pressure ulcers. Discharge instructions, medications, and follow-up appointments reviewed, education provided on 08/06, paper prescriptions given to patient, all questions answered.Patient instructed to call with concerns. * Plan of Care - Aditi Cancino RN - 08/07/2023 6:12 AM EDT OUTCOME EVALUATION NOTE: OUTCOME SUMMARY: Slept well. No c/o pain. No seizure activity noted. PLAN MOVING FORWARD: VS q4hr NC q4hr Discharge planning vEEG INDIVIDUALIZED FALL PREVENTION INTERVENTIONS: Patient-specific fall risk factors per assessment: wires from vEEG otherwise independent Patient-specific fall prevention interventions for sensory deficits provided: no CPG GOAL OUTCOME EVALUATION: Continue care plan as documented. Problem: Pain Acute Goal: Acceptable Pain Control and Functional Ability Outcome: Ongoing (Interventions Implemented as Appropriate) Problem: Adult Inpatient Plan of Care Goal: Plan of Care Review Outcome: Ongoing (Interventions Implemented as Appropriate) Goal: Patient-Specific Goal (Individualized) Outcome: Ongoing (Interventions Implemented as Appropriate) Goal: Absence of Hospital-Acquired Illness or Injury Outcome: Ongoing (Interventions Implemented as Appropriate) Goal: Optimal Comfort and Wellbeing Outcome: Ongoing (Interventions Implemented as Appropriate) Goal: Readiness for Transition of Care Outcome: Ongoing (Interventions Implemented as Appropriate) Problem: Bleeding (Craniotomy/Craniectomy/Cranioplasty) Goal: Absence of Bleeding Outcome: Ongoing (Interventions Implemented as Appropriate) Problem: Cerebral Tissue Perfusion Risk (Craniotomy/Craniectomy/Cranioplasty) Goal: Effective Cerebral Tissue Perfusion Outcome: Ongoing (Interventions Implemented as Appropriate) Problem: Fluid Imbalance (Craniotomy/Craniectomy/Cranioplasty) Goal: Fluid Balance Outcome: Ongoing (Interventions Implemented as Appropriate) Problem: Infection (Craniotomy/Craniectomy/Cranioplasty) Goal: Absence of Infection Signs and Symptoms Outcome: Ongoing (Interventions Implemented as Appropriate) Problem: Ongoing Anesthesia Effects (Craniotomy/Craniectomy/Cranioplasty) Goal: Anesthesia/Sedation Recovery Outcome: Ongoing (Interventions Implemented as Appropriate) Problem: Pain (Craniotomy/Craniectomy/Cranioplasty) Goal: Acceptable Pain Control Outcome: Ongoing (Interventions Implemented as Appropriate) Problem: Postoperative Nausea and Vomiting (Craniotomy/Craniectomy/Cranioplasty) Goal: Nausea and Vomiting Relief Outcome: Ongoing (Interventions Implemented as Appropriate) Problem: Postoperative Urinary Retention (Craniotomy/Craniectomy/Cranioplasty) Goal: Effective Urinary Elimination Outcome: Ongoing (Interventions Implemented as Appropriate) Problem: Bleeding (Surgery Nonspecified) Goal: Absence of Bleeding Outcome: Ongoing (Interventions Implemented as Appropriate) Problem: Bowel Motility Impaired (Surgery Nonspecified) Goal: Effective Bowel Elimination Outcome: Ongoing (Interventions Implemented as Appropriate) Problem: Infection (Surgery Nonspecified) Goal: Absence of Infection Signs and Symptoms Outcome: Ongoing (Interventions Implemented as Appropriate) Problem: Ongoing Anesthesia Effects (Surgery Nonspecified) Goal: Anesthesia/Sedation Recovery Outcome: Ongoing (Interventions Implemented as Appropriate) Problem: Pain (Surgery Nonspecified) Goal: Acceptable Pain Control Outcome: Ongoing (Interventions Implemented as Appropriate) Problem: Postoperative Nausea and Vomiting (Surgery Nonspecified) Goal: Nausea and Vomiting Relief Outcome: Ongoing (Interventions Implemented as Appropriate) Problem: Postoperative Urinary Retention (Surgery Nonspecified) Goal: Effective Urinary Elimination Outcome: Ongoing (Interventions Implemented as Appropriate) * Plan of [place] - Nathalie Kay RN - 08/06/2023 10:34 AM EDT OUTCOME EVALUATION NOTE: OUTCOME SUMMARY: Assumed care at 0700. VSS on RA. A&Ox4. Denies pain. Tolerating a regular diet. Voiding adequate amounts of urine. Bm this shift. Complained of floaters in his eye sight. Provider notified. Placed on continuous EEG monitoring. May discharge home tomorrow if EEG is satisfactory. Call lr withinreach. Safety measures maintained. PLAN MOVING FORWARD: EEG overnight Monitor VS Neuro checks Discharge planning INDIVIDUALIZED FALL PREVENTION INTERVENTIONS: Patient-specific fall risk factors per assessment: [current deficits]: Weakness, lines/tubes, hospital environment Assistance [level of assistance required for transfers and ambulation]: SBA Supervision [direct monitoring required during toileting and ADLs]: Eyes on Surveillance [continuous indirect monitoring]: Masimo, hourly rounding Patient-specific fall prevention interventions for sensory deficits provided, if applicable: [X] N/A CPG GOAL OUTCOME EVALUATION: * Plan of Care - Denise Grayson RN - 08/05/2023 10:30 PM EDT Patient AxOx4, no neurological deficits noted on exam, VS WNL, afebrile, stand by assist in room, using urinal independently, minimal complaints of pain except generalized POLLARD to left side. Patient has crani cap on with dried drainage, marked. Continue with Q4 VS and Q4 neuro checks. MRI completed tonight Report given to 5W nurse and patient transferred via wheelchair. Problem: Pain Acute Goal: Acceptable Pain Control and Functional Ability Outcome: Ongoing (Interventions Implemented as Appropriate) Problem: Adult Inpatient Plan of Care Goal: Plan of Care Review Outcome: Ongoing (Interventions Implemented as Appropriate) Goal: Patient-Specific Goal (Individualized) Outcome: Ongoing (Interventions Implemented as Appropriate) Goal: Absence of Hospital-Acquired Illness or Injury Outcome: Ongoing (Interventions Implemented as Appropriate) Goal: Optimal Comfort and Wellbeing Outcome: Ongoing (Interventions Implemented as Appropriate) Goal: Readiness for Transition of Care Outcome: Ongoing (Interventions Implemented as Appropriate) Problem: Bleeding (Craniotomy/Craniectomy/Cranioplasty) Goal: Absence of Bleeding Outcome: Ongoing (Interventions Implemented as Appropriate) Problem: Cerebral Tissue Perfusion Risk (Craniotomy/Craniectomy/Cranioplasty) Goal: Effective Cerebral Tissue Perfusion Outcome: Ongoing (Interventions Implemented as Appropriate) Problem: Fluid Imbalance (Craniotomy/Craniectomy/Cranioplasty) Goal: Fluid Balance Outcome: Ongoing (Interventions Implemented as Appropriate) Problem: Infection (Craniotomy/Craniectomy/Cranioplasty) Goal: Absence of Infection Signs and Symptoms Outcome: Ongoing (Interventions Implemented as Appropriate) Problem: Ongoing Anesthesia Effects (Craniotomy/Craniectomy/Cranioplasty) Goal: Anesthesia/Sedation Recovery Outcome: Ongoing (Interventions Implemented as Appropriate) Problem: Pain (Craniotomy/Craniectomy/Cranioplasty) Goal: Acceptable Pain Control Outcome: Ongoing (Interventions Implemented as Appropriate) Problem: Postoperative Nausea and Vomiting (Craniotomy/Craniectomy/Cranioplasty) Goal: Nausea and Vomiting Relief Outcome: Ongoing (Interventions Implemented as Appropriate) Problem: Postoperative Urinary Retention (Craniotomy/Craniectomy/Cranioplasty) Goal: Effective Urinary Elimination Outcome: Ongoing (Interventions Implemented as Appropriate) Problem: Bleeding (Surgery Nonspecified) Goal: Absence of Bleeding Outcome: Ongoing (Interventions Implemented as Appropriate) Problem: Bowel Motility Impaired (Surgery Nonspecified) Goal: Effective Bowel Elimination Outcome: Ongoing (Interventions Implemented as Appropriate) Problem: Infection (Surgery Nonspecified) Goal: Absence of Infection Signs and Symptoms Outcome: Ongoing (Interventions Implemented as Appropriate) Problem: Ongoing Anesthesia Effects (Surgery Nonspecified) Goal: Anesthesia/Sedation Recovery Outcome: Ongoing (Interventions Implemented as Appropriate) Problem: Pain (Surgery Nonspecified) Goal: Acceptable Pain Control Outcome: Ongoing (Interventions Implemented as Appropriate) Problem: Postoperative Nausea and Vomiting (Surgery Nonspecified) Goal: Nausea and Vomiting Relief Outcome: Ongoing (Interventions Implemented as Appropriate) Problem: Postoperative Urinary Retention (Surgery Nonspecified) Goal: Effective Urinary Elimination Outcome: Ongoing (Interventions Implemented as Appropriate) * Initial Assessments - Baljit Ruiz RN - 08/05/2023 11:20 AM EDT Office of Care Management Initial Assessment Baljit Ruiz RN reviewed record and discussed patient with Care Team. Source of Information: Team, bedside nurse, medical record, and Patient, Friend (Life Partner Suma [phone]) Introduced self/reviewed role; services accepted. Admitted From: [place], [place] Reason for Hospitalization: elective brain surgery Covid Vaccination Status: 1st, 2nd & booster (3 doses and a booster) Last COVID test: Lab Results Component Value Date COVID19 Not Detected 03/17/2020 Past medical History: Past Medical History: Diagnosis Date Hyperlipidemia Lumbar degenerative disc disease 08/21/2010 Hospitalizations Within the Past 30 Days: no previous admission in last 30 days (07/29/2023 was transferred from [facility]) Current Decision-Making Capacity: Self If AD's have not been completed the following surrogate would be surrogate decision maker per [place] surrogate decision making law. (Only good for 180 days) Any patient receiving care in [place] must abide by [place] law. The hierarchy for surrogate decision making is: (a) Patient???s spouse or civil union partner unless there is a divorce proceeding, separation agreement, or restraining order limiting that person???s relationship with the patient. (b) Any adult son or daughter of the patient. (c) Either parent of the patient. (d) Any adult brother or sister of the patient. (e) Any adult grandchild of the patient. (f) Any grandparent of the patient. (g) Any adult aunt, uncle, niece, or nephew of the patient. (h) A close friend of the patient. (i) The agent with financial power of internal carver or a conservator appointed in accordance with RSA 464-A. (j) The guardian of the patient???s estate. Advance Care Planning: Attempt Cardiopulmonary Resuscitation - Inpatient Received -Advanced Directive: Yes, on file Who is your DPOA-HC?: Child (Joan Polk [phone]) Current Coping/Education/Information Needs: Patient undersatnds reasons for admission. Current Functional Ability: Assistive Equipment and Assistive Person (He uses a walker with supervision R/T recent surgery) Functional Status Prior to Admission: Independent Prior ADLs & IADLs: Independent with all ADLs & IADLs Home Environment: Others in the home: friend(s) (June Mohamud [phone]). Current Living Arrangements: home/apartment/condo. Accessibility Concerns:1 level, 2STE landing 2 GLEN. In the last 12 months, was there a time when you were not able to pay the mortgage or rent on time?: No In the past 12 months, how many times have you moved where you were living?: 1 At any time in the past 12 months, were you homeless or living in a custodial (including now)?: No In the past 12 months has the electric, gas, oil, or water company threatened to shut off services in your home?: No Within the past 12 months, you worried that your food would run out before you got the money to buymore.: Never true Within the past 12 months, the food you bought just didn't last and you didn't have money to get more.: Never true Resource / Environmental Concerns: Resource/Environmental Concerns: none Home Accessibility Concerns: stairs to enter home (has rail) In the past 12 months, has lack of transportation kept you from medical appointments or from getting medications?: No In the past 12 months, has lack of transportation kept you from meetings, work, or from getting things needed for daily living?: No Current DME: none Home Address confirmed as: [address] [place] [id number] Social & Family Supports: All names listed below confirmed with patient as current and correct Extended Emergency Contact Information Primary Emergency Contact: Joan Polk Address: [address] [place] [address] [facility] Mobile Relation: Child Secondary Emergency Contact: June Mohamud Address: [address] [place] [id number] [facility] Mobile Relation: Life Partner Current Care Provided by: self Provides Primary Care For: friend(s) (June Mohamud [phone]) Caregiver if needed: friend(s) (June Mohamud [phone]) Quality of Family relationships: helpful, involved, supportive Community Resources being provided currently: none Behavioral Health History: Denies Substance Use/Abuse listed: Social History Tobacco Use Smoking Status Never Smokeless Tobacco Never In the past year have you used an illegal drug or used a prescription medication for non-medical reasons?: No 0 No problems reported 1-2 Low level 3-5 Moderate level 6-8 Substantial level 9- 10 Severe level In the past year have you had 5 or more drinks a day containing alcohol?: No 0 to 7 points: Low risk 8 to 15 points: Medium risk 16 to 19 points: High risk 20 to 40 points: Addiction likely Other Pertinent/Service Specific Information: S/p L temporal craniotomy/tumor resection Health/Prescription Coverage: Primary Insurance: MEDICARE Payor: MEDICARE / Plan: MEDICARE PART A & B / Product Type: *No Product type* / Secondary Insurance: AARP SUPPLEMENT ONLY if patient has Medicare A&B - Does this patient have secondary insurance?: Yes ; Prescription Coverage: Yes Preferred Pharmacy: [facility]/pharmacy #[id number] [address] [facility] [address] [facility] [address] [id number] [place], [place] - [address] [facility] [address] [facility] [id number] Status: Patient is a : No Primary Care Provider confirmed: Molina Herr MD [phone] Patient/Caregiver Goals of Treatment: to get better abd spend time with friends and families. Potential Needs for Transition of Care: none Agency Referrals: Not Applicable Transportation: no concerns (June Murrayelbert [phone]) Transportation Anticipated: family or friend will provide (Life partner June Murrayelbert [phone]) Concerns to be Addressed: no discharge needs identified Assessment: Patient is admitted to Neurosurgery service for Brain Tumor Resection Plan: Patient with no apparent RNCM/SW needs at this time. No housing, transportation, insurance, resources concerns identified at this time. Supports in place to achieve a safe post-hospital transition. No identified barriers to accessing necessary care and/or follow-up after discharge. A member of the Care Management team will continue to monitor progress, follow for continuity of care and assist with transition of care planning. Office of Care Management multimedia developer used car lot attendant Baljit Ruiz MSN RN [email or web address] * Plan of Care - Candy Gray RN - 08/05/2023 10:11 AM EDT OUTCOME EVALUATION NOTE: OUTCOME SUMMARY: Patient is A&Ox4, neuro exam stable and intact aside from some mild expressive aphasia. Some difficulty hearing, does not have hearing aids or glasses in place. Reports 8/10 headache not relievedwith prn Dilaudid, down to only 7/10 - team paged, no new orders. Remains on RA, using IS independently. Good PO intake. Voiding in urinal independently. Requesting additional bowel medication (last charted BM 07/31) - team paged. Ambulating around unit with staff and spouse, SBA. Up in chair. Visiting with . Will continue to monitor. PLAN MOVING FORWARD: Floor status Q4hr VS Q4hr neuro exams Pain control MRI to be complete HAND TOUCH UP PAINTER/PT/OT following INDIVIDUALIZED FALL PREVENTION INTERVENTIONS: Patient-specific fall risk factors per assessment: [current deficits]: [place], hospital environment, pain Assistance [level of assistance required for transfers and ambulation]: Ind/SBA Supervision [direct monitoring required during toileting and ADLs]: Eyes on Surveillance [continuous indirect monitoring]: SpO2 Patient-specific fall prevention interventions for sensory deficits provided, if applicable: [X] N/A CARE PLAN GOAL OUTCOME EVALUATION: Problem: Pain Acute Goal: Acceptable Pain Control and Functional Ability Outcome: Ongoing (Interventions Implemented as Appropriate) Problem: Adult Inpatient Plan of Care Goal: Plan of Care Review Outcome: Ongoing (Interventions Implemented as Appropriate) Problem: Infection (Craniotomy/Craniectomy/Cranioplasty) Goal: Absence of Infection Signs and Symptoms Outcome: Ongoing (Interventions Implemented as Appropriate) Problem: Pain (Craniotomy/Craniectomy/Cranioplasty) Goal: Acceptable Pain Control Outcome: Ongoing (Interventions Implemented as Appropriate) * Plan of Care - Samuel Conti RN - 08/04/2023 10:25 PM EDT Summary of hospitalization: Perfecto Polk is a 82 y.o. 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 08/04/23: L temporal craniotomy for tumor resection. Patient Active Problem List Diagnosis Date Noted Brain tumor 07/28/2023 Total knee replacement status 07/05/2023 Acute appendicitis 03/08/2017 Primary osteoarthritis of left knee (DJD) 03/13/2014 Osteomyelitis 08/31/2010 Discitis of lumbar region 08/21/2010 Lumbar degenerative disc disease 08/21/2010 Past Medical History: Diagnosis Date Hyperlipidemia Lumbar degenerative disc disease 08/21/2010 Past Surgical History: Procedure Laterality Date PRO ARTHROPLASTY KNEE CONDYLE & PLATEAU MEDIAL & LAT COMPARTMENTS Right 07/05/2023 TOTAL KNEE ARTHROPLASTY (WRVU 19.6) performed by Ernie Fuchs MD at [facility] MAIN OR PRO COLONOSCOPY, BIOPSY 01/10/2013 COLONOSCOPY FLEXIBLE, WITH BX performed by Dominick Earl MD at [facility] ENDOSCOPY PRO COLONOSCOPY, REMV LESN, SNARE N/A 01/12/2018 COLONOSCOPY, POLYPECTOMY, REMOVAL LESION BY SNARE (WRVU 4.67) performed by Guerda Coombs MD at [facility] ENDOSCOPY PRO COLONOSCOPY, REMV LESN, SNARE N/A 01/20/2023 COLONOSCOPY, POLYPECTOMY, REMOVAL LESION BY SNARE (WRVU 4.57) performed by Guerda Coombs MD at [facility] ENDOSCOPY PRO LAP, APPENDECTOMY N/A 03/09/2017 LAPAROSCOPIC APPENDECTOMY (WRVU 9.45) performed by Saurav Chen MD at [facility] MAIN OR PRO UPPER GI ENDOSCOPY, DIAGNOSTIC N/A 06/11/2021 EGD, UPPER GI ENDOSCOPY performed by Guerda Coombs MD at [facility] ENDOSCOPY Subjective/Objective: I am so thankful that I feel well today. Assessment: see DocFlow for details, otherwise significant highlights include the following: N/pain: GCS15. Pleasant, cooperative. Neuro checks hourly. Occasional difficulty word finding, but able to express needs appropriately. sz3/PERRLA. Conjugate. +cough/gag. Absent drift. 5/5 UE, 4/5 RLE (TKR). Equal hand grasps. Pain management with scheduled APAP and prn Dilaudid, with mild effect, required IV 0.2 IVP Dilaudid OVN for breakthrough with tolerable 5/10 effect. Keppra AED ppx. +Decadron taper P: LSCTAL, pOx >90% RA. IS bedside 2500 C: Continued ICU monitoring. SBP goals <180, met natively. +murmur. SR with 1AVB R BBB GI: Regular/thin diet, tolerating well. Active BS, Abd NDNT. LBM:07/31 per pt, regimen ongoing : DTV, spontaneously voiding in urinal, PVR <10, strict I/O's, see DocFlow for details. H: daily labs, all WNL Skin/PV: Heels offloaded/sacral mepilex in place. No edema. +rp/pp. Crani cap in place, dried strikethrough drainage on posterior occiput, CTM Endo: N/A ID: Afebrile. Abx/virals: periop CFZ ppx LD: see Avatar. Act: Independent whilst in bed, CGA ambulation around NSCU/NCCU before bed, OOB activity encouraged. PT/OT ordered. Social: Dtr Joan bedside, supportive. Asking questions appropriately and understanding of treatment plan. All concerns fielded by ICU team. Plan/Recommendation: Downgraded to NSGY service, awaiting bed availability. Awaiting post-op MRI-B Pain management Continued interdisciplinary interventions in alterations in N//H/Sk/ID/pain Medication education Notify team of acute changes Maintain safety Emotional support Infection prevention Problem: Pain Acute Goal: Acceptable Pain Control and Functional Ability Outcome: Ongoing (Interventions Implemented as Appropriate) Problem: Adult Inpatient Plan of Care Goal: Plan of Care Review Outcome: Ongoing (Interventions Implemented as Appropriate) Goal: Patient-Specific Goal (Individualized) Outcome: Ongoing (Interventions Implemented as Appropriate) Goal: Absence of Hospital-Acquired Illness or Injury Outcome: Ongoing (Interventions Implemented as Appropriate) Goal: Optimal Comfort and Wellbeing Outcome: Ongoing (Interventions Implemented as Appropriate) Goal: Readiness for Transition of Care Outcome: Ongoing (Interventions Implemented as Appropriate) Problem: Bleeding (Craniotomy/Craniectomy/Cranioplasty) Goal: Absence of Bleeding Outcome: Ongoing (Interventions Implemented as Appropriate) Problem: Cerebral Tissue Perfusion Risk (Craniotomy/Craniectomy/Cranioplasty) Goal: Effective Cerebral Tissue Perfusion Outcome: Ongoing (Interventions Implemented as Appropriate) Problem: Fluid Imbalance (Craniotomy/Craniectomy/Cranioplasty) Goal: Fluid Balance Outcome: Ongoing (Interventions Implemented as Appropriate) Problem: Infection (Craniotomy/Craniectomy/Cranioplasty) Goal: Absence of Infection Signs and Symptoms Outcome: Ongoing (Interventions Implemented as Appropriate) Problem: Ongoing Anesthesia Effects (Craniotomy/Craniectomy/Cranioplasty) Goal: Anesthesia/Sedation Recovery Outcome: Ongoing (Interventions Implemented as Appropriate) Problem: Pain (Craniotomy/Craniectomy/Cranioplasty) Goal: Acceptable Pain Control Outcome: Ongoing (Interventions Implemented as Appropriate) Problem: Postoperative Nausea and Vomiting (Craniotomy/Craniectomy/Cranioplasty) Goal: Nausea and Vomiting Relief Outcome: Ongoing (Interventions Implemented as Appropriate) Problem: Postoperative Urinary Retention (Craniotomy/Craniectomy/Cranioplasty) Goal: Effective Urinary Elimination Outcome: Ongoing (Interventions Implemented as Appropriate) Problem: Bleeding (Surgery Nonspecified) Goal: Absence of Bleeding Outcome: Ongoing (Interventions Implemented as Appropriate) Problem: Bowel Motility Impaired (Surgery Nonspecified) Goal: Effective Bowel Elimination Outcome: Ongoing (Interventions Implemented as Appropriate) Problem: Infection (Surgery Nonspecified) Goal: Absence of Infection Signs and Symptoms Outcome: Ongoing (Interventions Implemented as Appropriate) Problem: Ongoing Anesthesia Effects (Surgery Nonspecified) Goal: Anesthesia/Sedation Recovery Outcome: Ongoing (Interventions Implemented as Appropriate) Problem: Pain (Surgery Nonspecified) Goal: Acceptable Pain Control Outcome: Ongoing (Interventions Implemented as Appropriate) Problem: Postoperative Nausea and Vomiting (Surgery Nonspecified) Goal: Nausea and Vomiting Relief Outcome: Ongoing (Interventions Implemented as Appropriate) Problem: Postoperative Urinary Retention (Surgery Nonspecified) Goal: Effective Urinary Elimination Outcome: Ongoing (Interventions Implemented as Appropriate) * Brief Op Note - Savana Lion MD - 08/04/2023 3:40 PM EDT Brief Operative Note Patient Name: Perfecto Polk : [id number] MR#: [id number] Case Date: 08/04/2023 Surgeon: Surgeons and Role: * Jhonny Dunlap MD - Primary * Savana Lion MD - Resident - Assisting 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 Frozen consistent w HGG. Complications: None. Estimated Blood Loss: 100 mL* No values recorded between 08/04/2023 1:18 PM and 08/04/2023 3:39 PM * Specimens removed during surgery: Order Name Source Comment Collection Info Order Time SPECIMEN TO PATHOLOGY left temp tumor left temporal tumor excision YES, Please perform frozen section No 08/04/2023 2:02 PM Time specimen removed from patient: 2:01 PM Number of tissue samples (in container) 1 Biospecimen to store? No SPECIMEN TO PATHOLOGY For research left temp tumor left temporal tumor excision No 08/04/2023 2:06 PM Time specimen removed from patient: 2:08 PM Number of tissue samples (in container) Multiple Biospecimen to store? No SPECIMEN TO PATHOLOGY left temp tumor left temporal tumor excision No 08/04/2023 2:06 PM Time specimen removed from patient: 2:09 PM Number of tissue samples (in container) Multiple Biospecimen to store? No Fluids: Intraprocedure Crystalloid Total None PRBCs: none (See Anesthesia Record/Report for Other Blood Products) Urine Output: 1100 mL Drains: None. Disposition: awakened from anesthesia, extubated and taken to the recovery room in a stable condition, having suffered no apparent untoward event. Condition: doing well without problems (Please see the Surgical Encounter Summary for any Implant and Specimen details pertinent to this patient.) Surgical Infection Prevention Bundle Used? 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 The patient was prepped for surgery including DTI imaging as well as discontinuation of anticoagulation and brought back for resection of the presumed tumor. Operative note The patient was anesthetized and placed on the operating table in a supine position with a bump under the left shoulder. The head was turned to the far right with 3 point Gil pin fixation applied. Surface anatomy was entered into the navigational system with good accuracy. The patient then hadthe tumor marked out and an inverted U shaped incision was made over the temporal region. Followingprepping, draping, and a timeout, the incision was made. The myocutaneous flap was reflected inferiorly and held in place with fishhooks. Bur holes were placed at the anterior and posterior margins inferiorly and a craniotomy turned without difficulty. The dura was then opened in a similar flap based inferiorly. The navigational system was used to verify the middle and superior gyri. We performed a corticotomyalong the middle temporal gyrus and using the navigational system used the operating microscope to come down to the capsule of the tumor and work over the top of this being careful to minimize any stray into the optic radiations which were notable in this location. Anteriorly and posteriorly we performed corticotomy's down to the middle fossa floor and then worked these back to connect with the superior dissection plane. Medially, we encountered, as expected, the temporal horn of the ventricle and used this to monitor our depth coming through and beneath the tumor down to the middle fossa floor. The entire specimen was then delivered in 1 piece. We inspected the tumor cavity. No obvious tumor was left. Meticulous hemostasis was obtained and liberal irrigation applied. The dura was reapproximated with 4- 0 Nurolon suture and DuraGen was placedover this. The bone flap was replaced with microplates and the overlying temporalis muscle and fascia closed without difficulty. The patient was extubated, removed from the Gil, and transferred to the ICU in stable condition Attestation: Case Date: 08/04/2023 I was present and I participated during the entire procedure (does not need to include opening and closing). JHONNY DUNLAP MD 08/05/2023 documented in this encounter Plan of Treatment Upcoming Encounters Date Type Department Care Team (Late st Contact Info) Description 10/27/2023 11:15 AM EDT Office Visit Palliative Medicine at [place] [phone] Elly Alston MD [facility] DR HOSPICE [place] [address] 10/27/2023 1:00 PM EDT Office [place] [phone] Debra Franco, HAND TOUCH UP PAINTER 11/03/2023 2:00 PM EDT Office Visit Speech Therapy at [place] [phone] Debra Franco, HAND TOUCH UP PAINTER 11/08/2023 2:30 PM EDT Appointment MRI at [place] [phone] Navjot Grider MD [facility] DR [place] [address] 11/09/2023 1:45 PM EDT Office Visit Hematology and Oncology at [address] Isabell Jacob MD [facility] NEUROLOGY [place] [id number] 11/11/2023 10:30 AM EDT Office [place] [address] Nicki Sharpe MD [facility] DR RADIATION ONCOLOGY [place] [id number] 11/15/2023 10:00 AM EDT Office [place] [address] Debra Franco, HAND TOUCH UP PAINTER 11/16/2023 9:00 AM EDT Office Visit Hematology [place] [address] Bisi Nam 11/22/2023 10:00 AM EDT Office [place] [address] Debra Franco, HAND TOUCH UP PAINTER 11/30/2023 9:00 AM EDT Office Visit H[place]ology [place] [address] Bisi Nam 12/14/2023 9:00 AM EDT Office Visit [place]ology [place] [address] Bisi Nam 12/28/2023 9:00 AM EDT Office Visit [place] [address] Bisi Nam Scheduled Referrals Name Type Priority Associated Diagnoses Orde r Schedule Referral to Neuro-Oncology Outpatient Referral Routine Brain tumor Ordered: 08/06/2023 Referral to Speech Therapy Outpatient Referral Routine Brain tumor Ordered: 08/06/2023 Referral to Radiation Oncology Outpatient Referral Routine Brain tumor Ordered: 08/06/2023 documented as of this encounter Procedures Procedure Name Priority Date/Time Associated Diagnosis Comments HEMOGRAM Routine 08/07/2023 5:40 AM EDT DIFFERENTIAL, AUTOMATED Routine 08/07/2023 5:40 AM EDT CBC (WITH DIFF) Routine 08/07/2023 5:40 AM EDT PHOSPHORUS Routine 08/07/2023 5:40 AM EDT MAGNESIUM Routine 08/07/2023 5:40 AM EDT BASIC METABOLIC PANEL Routine 08/07/2023 5:40 AM EDT EEG CONTINUOUS MONITORING INPATIENT Routine 08/06/2023 6:05 PM EDT HEMOGRAM Routine 08/06/2023 5:33 AM EDT DIFFERENTIAL, AUTOMATED Routine 08/06/2023 5:33 AM EDT CBC (WITH DIFF) Routine 08/06/2023 5:33 AM EDT PHOSPHORUS Routine 08/06/2023 5:33 AM EDT MAGNESIUM Routine 08/06/2023 5:33 AM EDT BASIC METABOLIC PANEL Routine 08/06/2023 5:33 AM EDT MRI BRAIN WWO CONTRAST (GENERIC) Routine 08/05/2023 9:39 PM EDT HEMOGRAM Routine 08/05/2023 1:13 AM EDT DIFFERENTIAL, AUTOMATED Routine 08/05/2023 1:13 AM EDT CBC (WITH DIFF) Routine 08/05/2023 1:13 AM EDT PHOSPHORUS Routine 08/05/2023 1:13 AM EDT MAGNESIUM Routine 08/05/2023 1:13 AM EDT BASIC METABOLIC PANEL Routine 08/05/2023 1:13 AM EDT POCT GLUCOSE Routine 08/04/2023 4:30 PM EDT SPECIMEN TO PATHOLOGY Routine 08/04/2023 2:06 PM EDT SPECIMEN TO PATHOLOGY Routine 08/04/2023 2:06 PM EDT SPECIMEN TO PATHOLOGY STAT 08/04/2023 2:02 PM EDT SOLID TUMOR NGS PANEL Routine 08/04/2023 2:01 PM EDT [facility] Routine 08/04/2023 2 :01 PM EDT SURGICAL PATHOLOGY REPORT Routine 08/04/2023 2:01 PM EDT BLOOD GAS VENOUS POC Routine 08/04/2023 1:40 PM EDT MODIFIER,STEALTH 2,KINEVO Yes 08/04/2023 12:33 PM EDT left temp tumor Stereotactic Cptr Asstd Px Cranial, Intradural ([id number]) Yes 08/04/2023 12:33 PM EDT left temp tumor Microsurg Techniques, Req Oper Microscope ([id number]) Yes 08/04/2023 12:33 PM EDT 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 08/04/2023 12:33 PM EDT left temp tumor STEREOTACTIC COMPUTER-ASSTD NAVIGATIONAL CRANIAL INTRADURAL Routine 08/04/2023 8:47 AM EDT MICROSCOPE USE Routine 08/04/2023 8:47 AM EDT CRANI, FOR TUMOR, SUPRATENTORIAL, NOT MENINGIOMA Routine 08/04/2023 8:47 AM EDT IMPLANTABLE DEVICES SCAN 08/04/2023 12:00 AM EDT documented in this encounter Results * (ABNORMAL) Differential, Automated (08/07/2023 5:40 AM EDT) Neutrophil % 82.6 % [facility] Neutrophil Absolute 9.47(H) 1.70 - 6.10 x10(3)/mc L [facility] Lymph % 8.9 % [facility] Lymphocytes Abs 1.0 0.9 - 3.2 x10(3)/ L [facility] Monocyte % 7.5 % [facility] Monocyte Abs 0.9 0.3 - 0.9 x10(3)/ L [facility] Eos % 0.0 % [facility] Eosinophils Abs 0.0 0.0 - 0.4 x10(3)/[facility] Basophil % 0.1 % [facility] Baso Absolute 0.0 0.0 - 0.1 x10(3)/[facility] Immature Gran % 0.90 % [facility] Comment: Immature granulocytes(IG's)percentage and absolute count will include metamyelocytes, myelocytes, and promyelocytes. Blood smears from CBCs yielding IG's will be scanned manually for concordance. If this scan disagrees with the automated IG or if promyelocytes are noted, a manual differential will be performed. Immature Gran Absolute 0.10(H) 0.00 - 0.04 x10(3)/[facility] Blood 08/07/2023 5:40 AM EDT 08/07/2023 6:13 AM EDT Narrative Resulting Agency Comment Spec In Lab Savana Lion MD HEMATOLOGY ORDERABLE S [facility] [place] [address] * (ABNORMAL) Hemogram (08/07/2023 5:40 AM EDT) White Blood Cell 11.5(H) 4.0 - 9.5 x10(3)/[facility] Red Blood Cell 3.50(L) 4.58 - 5.54 x10(6)/ L [facility] Hemoglobin 9.9(L) 13.7 - 16.5 g/dL [facility] Hematocrit 30.5(L) 40.5 - 48.5 % [facility] Mean Cell Volume 87.1 82.9 - 93.1 fL [facility] Mean Cell Hemoglobin 28.3 27.5 - 32.1 pg [facility] Mean Cell Hemoglobin Concentration 32.5 32.0 - 35.7 g/dL [facility] Platelet 273 145 - 357 x10(3)/mc L [facility] RDW Standard Deviation 46.5(H) 36.0 - 45.0 fL [facility] RDW coefficient of variation 14.7(H) 11.4 - 13.8 % [facility] Mean Platelet Volume 9.3 7.6 - 12.9 fL [facility] NRBC% auto 0.0 % [facility] NRBC Absolute 0.000 0.000 - 0.000 x10(3)/mc L [facility] Blood 08/07/2023 5:40 AM EDT 08/07/2023 6:13 AM EDT Narrative Resulting Agency Comment Spec In Lab Savana Lion MD HEMATOLOGY ORDERABLE S Performing Organization Address City/[facility]/ZIP Co de Phone Number [facility] [place] [address] * Phosphorus (08/07/2023 5:40 AM EDT) Phosphorus 2.9 2.5 - 4.5 mg/dL [facility] Blood 08/07/2023 5:40 AM EDT 08/07/2023 6:13 AM EDT Narrative Resulting Agency Comment Spec In Lab Jhonny Dunlap MD CHEMISTRY ORDERABLES Performing Organization Address [facility]/ZIP Co de Phone Number [facility] [place] [address] * Magnesium (08/07/2023 5:40 AM EDT) Magnesium 0.88 0.69 - 1.07 mmol/L [facility] Blood 08/07/2023 5:40 AM EDT 08/07/2023 6:13 AM EDT Narrative Resulting Agency Comment Spec In Lab Jhonny Dunlap MD CHEMISTRY ORDERABLES [facility] [place] [address] * (ABNORMAL) Basic Metabolic Panel (non-fasting) (08/07/2023 5:40 AM EDT) Glucose 116 65 - 199 mg/dL [facility] Comment:Diabetes: >=200 mg/d L plus symptoms Blood Urea Nitrogen 25(H) 10 - 20 mg/dL [facility] Creatinine 1.04 0.80 - 1.50 mg/dL [facility] Sodium 138 135 - 145 mmol/L [facility] Potassium 4.4 3.5 - 5.0 mmol/L [facility] Comment: Please note: ??Patients with WBC >100,000 may have falsely elevated Potassium levels. ??For accurate Potassium quantification in these patients send serum separator tube (gold top) for subsequent determinations. ??Contact the Clinical Chemistry Laboratory if there are any questions. Chloride 105 98 - 107 mmol/L [facility] Carbon Dioxide 23 22 - 31 mmol/L [facility] Anion Gap 10 5 - 15 mmol/L [facility] Calcium 8.6 8.5 - 10.5 mg/dL [facility] Est Glomerular Filtration Rate 73 >=60 mL/min/1. 73 m?? [facility] Comment: This patient's estimated GFR [...] Narrative Resulting Agency Comment Spec In Lab Jhonny Dunlap MD CHEMISTRY ORDERABLES Performing Organization Address City/State/[facility] Co de Phone Number [facility] [place] [address] * EEG Continuous Monitoring Inpatient (08/06/2023 6:05 PM EDT) Narrative Flora Hagen MD - 08/06/2023 6:05 PM EDT Flora Hagen MD ? 08/08/2023 ??8:[address] [facility] Department of Neurology Inpatient Continuous Video EEG [...] (Marcaine-epiNEPHrine) 0.25 %-1:200,000 injection, , , PRN, Jhonny Dunlap MD, 9 mL at 08/04/23 1322 [...] mg, 0.3 mL, Subcutaneous, Once PRN, Savana Lion MD ??senna-docusate (Pericolace) 8.6-50 mg per tablet 2 tablet, 2 tablet, Oral, BID, Savana Lion MD, 2 tablet at 08/06/23 0910 ??bacitracin zinc-polymyxin B (Polysporin) ointment, , , PRN, Jhonny Dunlap MD, 1 oz at 08/04/23 1547 ??thrombin (Bovine) (Thrombinar) kit, , , PRN, Jhonny Dunlap MD, 20,000 Units at 08/04/23 1548 [...] EKG. Video was recorded during the session. FORESTRY EXTENSION SPECIALIST'S REPORT: Performed by: Jhonny Schuler At the onset of the recording [...] the patient's mass. FLORA HAGEN MD 08/07/2023 Jhonny Dunlap MD NEUROLOGY ORDERABLES * (ABNORMAL) Differential, Automated (08/06/2023 5:33 AM EDT) Neutrophil % 87.3 % [facility] Neutrophil Absolute 12.91(H) 1.70 - 6.10 x10(3)/mc L [facility] Lymph % 4.8 % [facility] Lymphocytes Abs 0.7(L) 0.9 - 3.2 x10(3)/mc L [facility] Monocyte % 7.1 % [facility] Monocyte Abs 1.0(H) 0.3 - 0.9 x10(3)/mc L [facility] Eos % 0.0 % [facility] Eosinophils Abs 0.0 0.0 - 0.4 x10(3)/mc L [facility] Basophil % 0.1 % [facility] Baso Absolute 0.0 0.0 - 0.1 x10(3)/mc L [facility] Immature Gran % 0.70 % [facility] Comment: Immature granulocytes(IG's)percentage and absolute count will include metamyelocytes, myelocytes, and promyelocytes. Blood smears from CBCs yielding IG's will be scanned manually for concordance. If this scan disagrees with the automated IG or if promyelocytes are noted, a manual differential will be performed. Immature Gran Absolute 0.10(H) 0.00 - 0.04 x10(3)/mc L [facility] Blood 08/06/2023 5:33 AM EDT 08/06/2023 6:04 AM EDT Narrative Resulting Agency Comment Spec In Lab Savana Lion MD HEMATOLOGY ORDERABLE S [facility] [place] [address] * (ABNORMAL) Hemogram (08/06/2023 5:33 AM EDT) White Blood Cell 14.8(H) 4.0 - 9.5 x10(3)/mc L [facility] Red Blood Cell 3.57(L) 4.58 - 5.54 x10(6)/mc L [facility] Hemoglobin 10.1(L) 13.7 - 16.5 g/dL [facility] Hematocrit 30.5(L) 40.5 - 48.5 % [facility] Mean Cell Volume 85.4 82.9 - 93.1 fL [facility] Mean Cell Hemoglobin 28.3 27.5 - 32.1 pg [facility] Mean Cell Hemoglobin Concentration 33.1 32.0 - 35.7 g/dL [facility] Platelet 271 145 - 357 x10(3)/mc L [facility] RDW Standard Deviation 45.2(H) 36.0 - 45.0 fL [facility] RDW coefficient of variation 14.6(H) 11.4 - 13.8 % [facility] Mean Platelet Volume 9.1 7.6 - 12.9 fL [facility] NRBC% auto 0.0 % [facility] NRBC Absolute 0.000 0.000 - 0.000 x10(3)/mc L [facility] Blood 08/06/2023 5:33 AM EDT 08/06/2023 6:04 AM EDT Narrative Resulting Agency Comment Spec In Lab Savana Lion MD HEMATOLOGY ORDERABLE S Performing Organization Address City/[facility]/ZIP Co de Phone Number [facility] [place] [address] * Phosphorus (08/06/2023 5:33 AM EDT) Phosphorus 3.2 2.5 - 4.5 mg/dL [facility] Blood 08/06/2023 5:33 AM EDT 08/06/2023 6:04 AM EDT Narrative Resulting Agency Comment Spec In Lab Jhonny Dunlap MD CHEMISTRY ORDERABLES Performing Organization Address [facility] Co de Phone Number [facility] [place] [address] * Magnesium (08/06/2023 5:33 AM EDT) Magnesium 0.91 0.69 - 1.07 mmol/L [facility] Blood 08/06/2023 5:33 AM EDT 08/06/2023 6:04 AM EDT Narrative Resulting Agency Comment Spec In Lab Jhonny Dunlap MD CHEMISTRY ORDERABLES Performing Organization Address [facility] Co de Phone Number [facility] [place] [address] * (ABNORMAL) Basic Metabolic Panel (non-fasting) (08/06/2023 5:33 AM EDT) Glucose 132 65 - 199 mg/dL [facility] Comment:Diabetes: >=200 mg/d L plus symptoms Blood Urea Nitrogen 24(H) 10 - 20 mg/dL [facility] Creatinine 1.09 0.80 - 1.50 mg/dL [facility] Sodium 139 135 - 145 mmol/L [facility] Potassium 4.2 3.5 - 5.0 mmol/L [facility] Comment: Please note: ??Patients with WBC >100,000 may have falsely elevated Potassium levels. ??For accurate Potassium quantification in these patients send serum separator tube (gold top) for subsequent determinations. ??Contact the Clinical Chemistry Laboratory if there are any questions. Chloride 106 98 - 107 mmol/L [facility] Carbon Dioxide 24 22 - 31 mmol/L [facility] Anion Gap 9 5 - 15 mmol/L [facility] Calcium 8.8 8.5 - 10.5 mg/dL [facility] Est Glomerular Filtration Rate 69 >=60 mL/min/1. 73 m?? [facility] Comment: This patient's estimated GFR [...] and symptoms in addition to eGFR. Blood 08/06/2023 5:33 AM EDT 08/06/2023 6:04 AM EDT Narrative Resulting Agency Comment Spec In Lab Jhonny Dunlap MD CHEMISTRY ORDERABLES [facility] [place] [address] * MRI Brain wwo Contrast (Generic) (08/05/2023 9:39 PM EDT) WORKSTATION ID [id number] RAD Anatomical Region Laterality Modality Head Magnetic Resonan ce Impressions 08/06/2023 9:14 AM EDT Interval gross total resection of the enhancing components of the left temporal lobe mass with postoperative changes as described above. Thank you for letting us participate in the care of this patient. ??If you are a health care provider and have any questions regarding this report, please contact the number below. ??For patients who have questions please contact the health pet care attendant that requested your imaging first. ? Narrative 08/06/2023 9:14 AM EDT EXAMINATION: MRI BRAIN WWO CONTRAST (GENERIC) CLINICAL HISTORY: F/u s/p tumor resection TECHNIQUE: MRI of the brain was performed before and after the intravenous administration of 16cc Dotarem. COMPARISON: Brain MRI 07/30/2023 and 07/28/2023 FINDINGS: Interval gross total resection of the enhancing components of the left temporal lobe mass. Surrounding T2 hyperintense signal is improved but persists resulting in mild compression of the left lateral ventricle. No ventriculomegaly. Restricted diffusion around the margins of the resection cavity is most prominent along the deep and posterior margins. Associated blood products noted. Expected postoperative soft tissue swelling and small amount of extra-axial fluid. Procedure Note William Edgar MD - 08/06/2023 EXAMINATION: MRI BRAIN WWO CONTRAST (GENERIC) CLINICAL HISTORY: F/u s/p tumor resection TECHNIQUE: MRI of the brain was performed before and after the intravenousadministration of 16cc Dotarem. COMPARISON: Brain MRI 07/30/2023 and 07/28/2023 FINDINGS: Interval gross total resection of the enhancing components of the lefttemporal lobe mass. Surrounding T2 hyperintense signal is improved but persistsresulting in mild compression of the left lateral ventricle. No ventriculomegaly. Restricted diffusion around the margins of the resection cavity is most prominent along the deep and posterior margins. Associated blood productsnoted. Expected postoperative soft tissue swelling and small amount ofextra-axial fluid. IMPRESSION Interval gross total resection of the enhancing components of the lefttemporal lobe mass with postoperative changes as described above. Thank you for letting us participate in the care of this patient. If youare a health care provider and have any questions regarding this report,please contact the number below. For patients who have questions please contactthe health pet care attendant that requested your imaging first. Jhonny Dunlap MD IM MRI ORDERABLES * (ABNORMAL) Differential, Automated (08/05/2023 1:13 AM EDT) Neutrophil % 85.6 % [facility] Neutrophil Absolute 13.60(H) 1.70 - 6.10 x10(3)/mc L [facility] Lymph % 4.2 % [facility] Lymphocytes Abs 0.7(L) 0.9 - 3.2 x10(3)/mc L [facility] Monocyte % 9.5 % [facility] Monocyte Abs 1.5(H) 0.3 - 0.9 x10(3)/mc L [facility] Eos % 0.0 % [facility] Eosinophils Abs 0.0 0.0 - 0.4 x10(3)/mc L [facility] Basophil % 0.1 % [facility] Baso Absolute 0.0 0.0 - 0.1 x10(3)/mc L [facility] Immature Gran % 0.60 % [facility] Comment: Immature granulocytes(IG's)percentage and absolute count will include metamyelocytes, myelocytes, and promyelocytes. Blood smears from CBCs yielding IG's will be scanned manually for concordance. If this scan disagrees with the automated IG or if promyelocytes are noted, a manual differential will be performed. Immature Gran Absolute 0.09(H) 0.00 - 0.04 x10(3)/mc L [facility] Blood 08/05/2023 1:13 AM EDT 08/05/2023 1:19 AM EDT Narrative Resulting Agency Comment Spec In Lab Savana Lion MD HEMATOLOGY ORDERABLE S [facility] [place] [address] * (ABNORMAL) Hemogram (08/05/2023 1:13 AM EDT) White Blood Cell 15.9(H) 4.0 - 9.5 x10(3)/[facility] Red Blood Cell 3.61(L) 4.58 - 5.54 x10(6)/[facility] Hemoglobin 10.5(L) 13.7 - 16.5 g/dL [facility] Hematocrit 31.1(L) 40.5 - 48.5 % [facility] Mean Cell Volume 86.1 82.9 - 93.1 fL [facility] Mean Cell Hemoglobin 29.1 27.5 - 32.1 pg [facility] Mean Cell Hemoglobin Concentration 33.8 32.0 - 35.7 g/dL [facility] Platelet 279 145 - 357 x10(3)/[facility] RDW Standard Deviation 44.5 36.0 - 45.0 [facility] RDW coefficient of variation 14.3(H) 11.4 - 13.8 % [facility] Mean Platelet Volume 8.9 7.6 - 12.9 fL [facility] NRBC% auto 0.0 % [facility] NRBC Absolute 0.000 0.000 - 0.000 x10(3)/[facility] Blood 08/05/2023 1:13 AM EDT 08/05/2023 1:19 AM EDT Narrative Resulting Agency Comment Spec In Lab Savana Lion MD HEMATOLOGY ORDERABLE S Performing Organization Address City/[facility]/ZIP Co de Phone Number [facility] [place] [address] * Phosphorus (08/05/2023 1:13 AM EDT) Phosphorus 4.4 2.5 - 4.5 mg/dL [facility] Blood 08/05/2023 1:13 AM EDT 08/05/2023 1:19 AM EDT Narrative Resulting Agency Comment Spec In Lab Jhonny Dunlap MD CHEMISTRY ORDERABLES Performing Organization Address [facility] Co de Phone Number [facility] [place] [address] * Magnesium (08/05/2023 1:13 AM EDT) Magnesium 0.86 0.69 - 1.07 mmol/L [facility] Blood 08/05/2023 1:13 AM EDT 08/05/2023 1:19 AM EDT Narrative Resulting Agency Comment Spec In Lab Jhonny Dunlap MD CHEMISTRY ORDERABLES Performing Organization Address [facility]/ZIP Co de Phone Number [facility] [place] [address] * (ABNORMAL) Basic Metabolic Panel (non-fasting) (08/05/2023 1:13 AM EDT) Glucose 116 65 - 199 mg/dL [facility] Comment:Diabetes: >=200 mg/d L plus symptoms Blood Urea Nitrogen 24(H) 10 - 20 mg/dL [facility] Creatinine 1.15 0.80 - 1.50 mg/dL [facility] Sodium 141 135 - 145 mmol/L [facility] Potassium 4.3 3.5 - 5.0 mmol/L [facility] Comment: Please note: ??Patients with WBC >100,000 may have falsely elevated Potassium levels. ??For accurate Potassium quantification in these patients send serum separator tube (gold top) for subsequent determinations. ??Contact the Clinical Chemistry Laboratory if there are any questions. Chloride 107 98 - 107 mmol/L [facility] Carbon Dioxide 21(L) 22 - 31 mmol/L [facility] Anion Gap 13 5 - 15 mmol/L [facility] Calcium 8.8 8.5 - 10.5 mg/dL [facility] Est Glomerular Filtration Rate 64 >=60 mL/min/1. 73 m?? [facility] Comment: This patient's estimated GFR [...] and symptoms in addition to eGFR. Blood 08/05/2023 1:13 AM EDT 08/05/2023 1:19 AM EDT Narrative Resulting Agency Comment Spec In Lab Jhonny Dunlap MD CHEMISTRY ORDERABLES Performing Organization Address [facility] de Phone Number [facility] [place] [address] * POCT Glucose (08/04/2023 4:30 PM EDT) Glucose, POC 113 65 - 199 mg/dL [facility] Comment: Supplemental ranges: <140 mg/dL before meals <180 mg/dL all other times of the day Blood 08/04/2023 4:30 PM EDT 08/04/2023 4:30 PM EDT Jhonny Dunlap MD POINT OF C[place] [address] * Specimen to Pathology (08/04/2023 2:06 PM EDT) AP Specimen 08/04/2023 2:06 PM EDT 08/04/2023 2:06 PM EDT Narrative [facility] - 08/04/2023 2:06 PM EDT Specimen requisition ordered. ??Separate Pathology report to follow Jhonny Dunlap MD PATHOLOGY/CYTOLOGY O RDVIJI Performing Organization Address City/[facility]/[place] [address] * Specimen to Pathology (08/04/2023 2:06 PM EDT) AP Specimen 08/04/2023 2:06 PM EDT 08/04/2023 2:06 PM EDT Narrative [facility] - 08/04/2023 2:06 PM EDT Specimen requisition ordered. ??Separate Pathology report to follow Jhonny Dunlap MD PATHOLOGY/CYTOLOGY O STANISLAW Performing Organization Address [facility]/ZIP Co de Phone Number [facility] [place] [address] * Specimen to Pathology (08/04/2023 2:02 PM EDT) AP Specimen 08/04/2023 2:02 PM EDT 08/04/2023 2:02 PM EDT [facility] - 08/04/2023 2:02 PM EDT Specimen requisition ordered. ??Separate Pathology report to follow Jhonny Dunlap MD PATHOLOGY/CYTOLOGY O RDERASINGH Performing Organization Address City/[facility]/[place] [address] * [facility] Tilley Test-Tilley (08/04/2023 2:01 PM EDT) [facility] Tilley Test ? Result ?Flag ??Unit ??RefValue [...] developed and its performance characteristics ?determined by [facility] in a manner consistent with CLIA ?requirements. This test has not been cleared or approved by ?the U.S. Food and Drug Administration. ??Additional Information ? SEE COMMENTS ?REFERENCES ?1. N Engl J Med 2005;352(10):997-100 3 (PMID: [id number]) ?2. Wendi Rev Neurol 2010;6:39-51 (PMID: [id number]) ?3. Lancet Oncol. 2012; 13:707-715 (PMID: [id number]) ?4. Lancet Oncol. 2012; 13: 916-926 (PMID: [id number]) ?5. Wendi Rev Neurol 2014;10:372-385 (PMID: [id number]) ??Specimen ? Tissue, Tumor ??Tissue ID ?[id number] ??Released by ?Kari Mares M.D., Ph.D. ?Test Performed by: ?[facility], [place] ?[address] [id number] ?Steel Analyst: Sheri Elise Ph.D.; CLIA# [id number] [facility] Other Other / Unknown 08/04/2023 2 :01 PM EDT 08/19/2023 1:42 PM EDT Narrative Resulting Agency Comment Spec In Lab David Irizarry MD LAB SEND OUT ORDERAB LES Performing Organization Address [facility] Co de Phone Number [facility] [place] [address] * Solid Tumor NGS Panel (08/04/2023 2:01 PM EDT) Tissue 08/04/2023 2:01 PM EDT 08/09/2023 1:39 PM EDT Narrative Resulting Agency Comment Spec In Lab Jhonny Dunlap MD PATHOLOGY/CYTOLOGY O RDERABLES Performing Organization Address [facility] Co de Phone Number [facility] [place] [address] * (ABNORMAL) Surgical Pathology Report (08/04/2023 2:01 PM EDT) Final Diagnosis [id number] ? Location: WD; 18; A The signing pathologist has (i) examined the relevant preparation(s) for the specimen(s) and (ii) rendered or confirmed the diagnosis(es). . ?Surgical Pathology DIAGNOSIS A - Left temporal tumor, excision ?? 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 Pathologist Performed at: ??-[facility] Dept. of Pathology, [place] [address] Sales And Service Technician: Sona Hernandez MD, FCAP, ??CLIA Certificate: [id number] DISCUSSION Hematoxylin and eosin staining of the [...] B1 ??GFAP Highlight reactive brain parenchyma B1,B9 ??[id number] Negative B1 ??ATRX Retained B1 ??p53 approximately 5-10% B1 ??Ki67 Up to 40% SPECIMEN(S) SUBMITTED A - left temporal tumor, excision (1) ?? for frozen section B - left temporal tumor, excision (Multiple) CLINICAL INFORMATION Left temporal tumor SPECIMEN PROCESSING A - Labeled/Fixative: Left temporal tumor, fresh for frozen section. Quantity/Size: Single, 0.4 x 0.3 x 0.2 cm. Tissue Description: Burnett-pink soft tissue. Sections/Processing: Touch prep(s) are prepared. The following tissue is submitted for frozen section: Entirety of the specimen; as AFS1. . SPECIMEN PROCESSING Submitted in toto ??in 1 cassette labeled A1. B - Labeled/Fixative: Left temporal tumor, fresh. Quantity/Size: Multiple, in aggregate 6.0 x 4.2 x 1.5 cm. Tissue Description: Irregular yellow-burnett to estrella-brown focally hemorrhagic rubbery soft tissue [...] PM. Electronically signed by: ?Edie SUNG, PhD, ShadyKerwin Verified: ??08/04/2023 14:33 ??Pathologist Performed at: ??-[facility] Dept. of Pathology, [place] [address] Sales And Service Technician: Sona Hernandez MD, AP, ??CLIA Certificate: [id number] This intraoperative consultation should be interpreted as a preliminary diagnosis pending review of the entire specimen and special studies, if any. A final Surgical Pathology report will follow this preliminary Frozen Section report(s).(A) 08/10/2023 9:04 AM EDT [facility] BRAIN STRUCTURE / Unknown 08/04/2023 2:01 PM EDT 08/04/2023 2:01 PM EDT BRAIN STRUCTURE / Unknown 08/04/2023 2:01 PM EDT 08/04/2023 2:01 PM EDT Jhonny Dunlap MD PATHOLOGY/CYTOLOGY O RDERABLES Performing Organization Address City/State/[facility] Co de Phone Number [facility] [place] [phone] * (ABNORMAL) BLOOD GAS 2 VENOUS (08/04/2023 1:40 PM EDT) pH, Venous 7.37 7.32 - 7.42 [facility] PCO2, Venous 35(L) 41 - 51 mmHg [facility] PO2, Venous 186(H) 25 - 40 mmHg [facility] Bicarbonate, Venous 20.0 mmol/L [facility] Base Excess, Venous -5.2 mmol/L [facility] Hgb Blood Gas 11.7(L) 13.7 - 16.5 g/dL [facility] Oxyhemoglobin, Venous 98.9 % [facility] Carboxyhemoglob in, Venous 0.5 % [facility] Comment: Nonsmokers: 0.5-1.5% COHB Smokers: Variable, but usually less than 10% Toxic: 20-30% COHB Lethal: Greater than 60% COHB Methemoglobin, Venous 0.3 <=1.5 % [facility] Na Whole Blood 138 135 - 145 mmol/L [facility] K Whole Blood 3.9 3.5 - 5.0 mmol/L [facility] Comment: Please note: Patients with WBC >100,000 may have falsely elevated Potassium levels. Contact the Clinical Chemistry Laboratory if there are any questions. ICa Whole Blood 1.22 1.15 - 1.33 mmol/L [facility] Comment: Note: ??Total bilirubin higher than 20 mg/dL may lead to falsely low ionized calcium. CL Whole Blood 105 98 - 107 mmol/L [facility] Gluc Whole Bld 99 65 - 199 mg/dL [facility] Comment:Diabetes: >=200 mg/d L plus symptoms Lactate WB 1.8 0.5 - 2.2 mmol/L [facility] Blood Gas Source Venous [facility] Blood 08/04/2023 1:40 PM EDT 08/04/2023 1:40 PM EDT Jhonny Dunlap MD POINT OF CARE TEST O RDERABLES [facility] [place] [address] * Scan Doc: Implantable Devices (08/04/2023 12:00 AM EDT) Narrative 08/04/2023 12:00 AM EDT Ordered by an unspecified provider. Scanning Provider MEDIA MGR SCAN EXT O RDR/RSLT documented in this encounter Visit Diagnoses Not on filedocumented in this encounter Admitting Diagnoses Diagnosis Brain tumor Neoplasm of unspecified nature of brain documented in this encounter Administered Medications Inactive Administered Medications - up to 3 most recent administrations Medication Order MAR Action Action Date Dose Rate Site acetaminophen (Tylenol) tablet 975 mg 975 mg, Oral, EVERY 6 HOURS PRN, Starting on Tue08/05/23 at 1421, Until Tue08/07/23 at 1811, Pain, Headaches, Maximum dose of acetaminophen is 4,000 mg from all sources in 24 hours. When ordered for pain, acetaminophen should be given even when other ordered pain medications are indicated., Routine Given 08/05/2023 3:41 PM EDT 975 mg atorvastatin (Lipitor) tablet 20 mg 20 mg, Oral, EVERY EVENING, First dose on Tue08/04/23 at 1730, Until Discontinued, Routine Given 08/06/2023 5:36 PM EDT 20 mg Given 08/05/2023 4:21 PM EDT 20 mg Given 08/04/2023 5:36 PM EDT 20 mg bacitracin zinc-polymyxin B (Polysporin) ointment PRN, Starting on Tue08/04/23 at 1547, Until Tue08/07/23 at 1811, Intra-Operative (Intra-Procedure) Given 08/04/2023 3:47 PM EDT 1 oz 19- Surgical Site BUPivacaine-EPINEPHrine (Marcaine-epiNEPHrine) 0.25 %-1:200,000 injection PRN, Starting on Tue08/04/23 at 1322, Until Tue08/07/23 at 1811, Intra-Operative (Intra-Procedure), Routine Given 08/04/2023 1:22 PM EDT 9 mLs dexAMETHasone (Decadron) tablet 1 mg 1 mg, Oral, EVERY 12 HOURS SCHEDULED (2 times per day), 6 doses, First dose on Tue08/12/23 at 0900, Last dose on Tue08/14/23 at 2100, Routine dexAMETHasone (Decadron) tablet 1 mg 1 mg, Oral, DAILY, 3 doses, First dose on Tue08/15/23 at 0900, Last dose on Tue08/17/23 at 0900, Routine dexAMETHasone (Decadron) tablet 2 mg 2 mg, Oral, EVERY 12 HOURS SCHEDULED (2 times per day), 6 doses, First dose on Tue08/09/23 at 0900, Last dose on Tue08/11/23 at 2100, Routine dexAMETHasone (Decadron) tablet 4 mg 4 mg, Oral, EVERY 12 HOURS SCHEDULED (2 times per day), 6 doses, First dose on Tue08/06/23 at 0900, Last dose on 08/08/23 at 2100, Routine Given 08/07/2023 9:45 AM EDT 4 mg Given 08/06/2023 8:11 PM EDT 4 mg Given 08/06/2023 9:11 AM EDT 4 mg HYDROmorphone (Dilaudid) tablet 2 mg 2 mg, Oral, EVERY 4 HOURS PRN, Starting on Tue08/04/23 at 1729, Until Tue08/07/23 at 1811, Pain, Routine Given 08/05/2023 9:52 AM EDT 2 mg Given 08/05/2023 5:44 AM EDT 2 mg Given 08/05/2023 12:22 AM EDT 2 mg lactulose (Chronulac) (0.67 gram/mL) oral liquid 20 g 20 g, Oral, 2 Times Daily, First dose on Tue08/05/23 at 2100, Until Discontinued, Routine Given 08/07/2023 9:46 AM EDT 20 g Given 08/06/2023 9:10 AM EDT 20 g Given 08/05/2023 8:20 PM EDT 20 g levETIRAcetam (Keppra) tablet 500 mg 500 mg, Oral, 2 TIMES DAILY, First dose on Tue08/04/23 at 2100, Until Discontinued, Routine Given 08/07/2023 9:45 AM EDT 500 mg Given 08/06/2023 8:12 PM EDT 500 mg Given 08/06/2023 9:10 AM EDT 500 mg levothyroxine (Synthroid) tablet 25 mcg 25 mcg, Oral, EVERY MORNING, First dose on Tue08/05/23 at 0600, Until Discontinued, Routine Given 08/07/2023 5:10 AM EDT 25 mcg Given 08/06/2023 6:13 AM EDT 25 mcg Given 08/05/2023 5:15 AM EDT 25 mcg pantoprazole EC (Protonix) tablet 40 mg 40 mg, Oral, DAILY, First dose on Tue24 at 1730, Until Discontinued, DO NOT CRUSH OR OPEN Given 08/07/2023 9:45 AM EDT 40 mg Given 08/06/2023 9:10 AM EDT 40 mg Given 08/05/2023 8:22 AM EDT 40 mg polyethylene glycoL (Miralax) packet 17 g 17 g, Oral, DAILY, First dose on Debbie 08/04/23 at 1730, Until Discontinued, Routine Given 08/07/2023 9:47 AM EDT 17 g Given 08/06/2023 9:10 AM EDT 17 g Given 08/05/2023 8:22 AM EDT 17 g psyllium husk 1 packet 1 packet, Oral, DAILY, First dose on [facility] 08/06/23 at 0900, Until Discontinued, Mix each packet with 8 ounces of water., Routine Given 08/07/2023 9:00 AM EDT 1 packet Given 08/06/2023 9:00 AM EDT 1 packet senna-docusate (Pericolace) 8.6-50 mg per tablet 2 tablet 2 tablet, Oral, 2 TIMES DAILY, First dose on Debbie 08/04/23 at 2100, Until Discontinued, Hold for loose stool. , Routine Given 08/07/2023 9:46 AM EDT 2 tablets Given 08/06/2023 9:10 AM EDT 2 tablets Given 08/05/2023 8:20 PM EDT 2 tablets sodium chloride 0.9 % (flush) (BD PosiFlush Normal Saline 0.9) flush 5 mL 5 mL, Intravenous, 2 TIMES DAILY, First dose on Debbie 08/04/23 at 2100, Until Discontinued, Recovery (Recovery-Hospital Unit), Routine Given 08/07/2023 9:00 AM EDT 5 mLs Given 08/06/2023 8:12 PM EDT 5 mLs Given 08/06/2023 9:12 AM EDT 5 mLs thrombin (Bovine) (Thrombinar) kit PRN, Starting on Debbie 08/04/23 at 1548, Until [place] 08/07/23 at 1811, Intra-Operative (Intra-Procedure) Given 08/04/2023 3:48 PM EDT 20,000 Units 19- Surgical Site documented in this encounter Active and Recently Administered Medications Times are shown in EDT. Scheduled Medication Order 08/05/2023 08/06/2023 08/07/2023 acetaminophen (Ofirmev) (1,000 mg/100 mL) infusion 1,000 mg (COMPLETED) 1,000 mg, Intravenous, at 400 mL/hr, Administer over 15 Minutes, EVERY 8 HOURS SCHEDULED, 3 doses, First dose on Debbie 08/04/23 at 1730, Last dose on Tue08/05/23 at 0600, Maximum dose of acetaminophen is 4,000 mg from all sources in 24 hours. When ordered for pain, acetaminophen should be given even when other ordered pain medications are indicated., Routine, Is ketorolac (Toradol) IV contraindicated? Yes, Can this patient tolerate oral medications or suppositories? Yes 0515 (Given - Provider: Samuel Conti RN) atorvastatin (Lipitor) tablet 20 mg 20 mg, Oral, EVERY EVENING, First dose on Debbie 08/04/23 at 1730, Until Discontinued, Routine 1621 (Given - Provider: Maximiliano Villarreal RN) 1736 (Given - Provider: Nathalie Kay RN) ceFAZolin (Ancef) 1 g vial attached to sodium chloride 0.9% 50 mL Mini-Bag Plus (COMPLETED) 1 g, Intravenous, EVERY 8 HOURS, 3 doses, First dose on Debbie 08/04/23 at 2200, Last dose on Tue08/05/23 at 1400, Administer over 30 Minutes, Indication for (Active or Suspected): Prophylaxis 0544 (New Bag - Provider: Samuel Conti RN)0631 (Stopped - Provider: Samuel Conti RN)1341 (New Bag - Provider: Candy Gray, OSCAR)1411 (Stopped - Provider: Candy Gray, OSCAR) dexAMETHasone (Decadron) tablet 1 mg(Linked Group 1) 1 mg, Oral, EVERY 12 HOURS SCHEDULED (2 times per day), 6 doses, First dose on Tue08/12/23 at 0900, Last dose on Tue08/14/23 at 2100, Routine dexAMETHasone (Decadron) tablet 1 mg(Linked Group 1) 1 mg, Oral, DAILY, 3 doses, First dose on Tue08/15/23 at 0900, Last dose on Tue08/17/23 at 0900, Routine dexAMETHasone (Decadron) tablet 2 mg(Linked Group 1) 2 mg, Oral, EVERY 12 HOURS SCHEDULED (2 times per day), 6 doses, First dose on Tue08/09/23 at 0900, Last dose on Tue08/11/23 at 2100, Routine dexAMETHasone (Decadron) tablet 4 mg (CANCELED) 4 mg, Oral, EVERY 6 HOURS SCHEDULED, First dose on Tue08/04/23 at 1800, Until Discontinued, Routine 0021 (Given - Provider: Samuel Conti RN)0515 (Given - Provider: Samuel Conti, OSCAR) dexAMETHasone (Decadron) tablet 4 mg ()(Linked Group 1) 4 mg, Oral, EVERY 6 HOURS SCHEDULED, 4 doses, First dose on Tue08/05/23 at 0700, Last dose on Tue08/06/23 at 0000, Routine 0700 (Not Given - Provider: Candy Gray RN - Reason: Per MD Order - Comment: Confirmed with neurosurgery to hold this dose due to recieving 4mg @ 0515, and give dose @ 1200.)1232 (Given - Provider: Candy Gray, OSCAR)1824 (Given - Provider: Candy Gray, OSCAR)2304 (Given - Provider: Aditi Cancino, OSCAR) dexAMETHasone (Decadron) tablet 4 mg(Linked Group 1) 4 mg, Oral, EVERY 12 HOURS SCHEDULED (2 times per day), 6 doses, First dose on Tue08/06/23 at 0900, Last dose on Tue08/08/23 at 2100, Routine 0911 (Given - Provider: Nathalie Kay RN)2010 (Given - Provider: Aditi Cancino, OSCAR) 0945 (Given - Provider: Melinda Calzada RN) HYDROmorphone (Dilaudid) (0.2 mg/1 mL) injection syringe 0.2 mg (COMPLETED) 0.2 mg, Intravenous, ONCE, 1 dose, On Tue08/05/23 at 0215, Routine 0121 (Given - Provider: Samuel Conti, OSCAR) lactulose (Chronulac) (0.67 gram/mL) oral liquid 20 g 20 g, Oral, 2 Times Daily, First dose on Tue08/05/23 at 2100, Until Discontinued, Routine 2019 (Given - Provider: Denise Grayson, RN) 09 (Given - Provider: Nathalie Kay, OSCAR)2099 (Not Given - Provider: Aditi Cancino, OSCAR - Reason: Order parameters not met) 0946 (Given - Provider: Melinda Calzada RN) levETIRAcetam (Keppra) tablet 500 mg 500 mg, Oral, 2 TIMES DAILY, First dose on Debbie 08/04/23 at 2100, Until Discontinued, Routine 0822 (Given - Provider: Candy Gray, OSCAR)2019 (Given - Provider: Denise Grayson, RN) 909 (Given - Provider: Nathalie Kay, OSCAR)2011 (Given - Provider: Aditi Cancino, OSCAR) 0945 (Given - Provider: Melinda Calzada RN) levothyroxine (Synthroid) tablet 25 mcg 25 mcg, Oral, EVERY MORNING, First dose on Tue08/05/23 at 0600, Until Discontinued, Routine 0515 (Given - Provider: Samuel Conti RN) 0613 (Given - Provider: Aditi Cancino, OSCAR) 0510 (Given - Provider: Aditi Cancino, OSCAR) pantoprazole EC (Protonix) tablet 40 mg 40 mg, Oral, DAILY, First dose on Debbie 08/04/23 at 1730, Until Discontinued, DO NOT CRUSH OR OPEN 0822 (Given - Provider: Candy Gray RN) 09 (Given - Provider: Nathalie Kay RN) 0945 (Given - Provider: Melinda Calzada RN) polyethylene glycoL (Miralax) packet 17 g 17 g, Oral, DAILY, First dose on Debbie 08/04/23 at 1730, Until Discontinued, Routine 0822 (Given - Provider: Candy Gray, OSCAR) 09 (Given - Provider: Nathalie Kay, OSCAR) 0947 (Given - Provider: Melinda Calzada RN) psyllium husk 1 packet 1 packet, Oral, DAILY, First dose on 08/06/23 at 0900, Until Discontinued, Mix each packet with 8 ounces of water., Routine 0900 (Given - Provider: Nathalie Kay RN) 09 (Given - Provider: Melinda Calzada RN) senna-docusate (Pericolace) 8.6-50 mg per tablet 2 tablet 2 tablet, Oral, 2 TIMES DAILY, First dose on Debbie 08/04/23 at 2100, Until Discontinued, Hold for loose stool. , Routine 08 (Given - Provider: Candy Gray, OSCAR)2019 (Given - Provider: Denise Grayson, OSCAR) 09 (Given - Provider: Nathalie Kay, OSCAR)2099 (Not Given - Provider: Aditi Cancino, OSCAR - Reason: Order parameters not met) 0946 (Given - Provider: Melinda Calzada RN) sodium chloride 0.9 % (flush) (BD PosiFlush Normal Saline 0.9) flush 5 mL 5 mL, Intravenous, 2 TIMES DAILY, First dose on Debbie 08/04/23 at 2100, Until Discontinued, Recovery (Recovery-Hospital Unit), Routine 08 (Given - Provider: Candy Gray RN)2019 (Given - Provider: Denise Grayson RN) 911 (Given - Provider: Nathalie Kay, OSCAR)2011 (Given - Provider: Aditi Cancino, OSCAR) 09 (Given - Provider: Melinda Calzada RN) PRN Medication Order 08/05/2023 08/06/2023 08/07/2023 acetaminophen (Tylenol) tablet 975 mg 975 mg, Oral, EVERY 6 HOURS PRN, Starting on Tue08/05/23 at 1421, Until Tue08/07/23 at 1811, Pain, Headaches, Maximum dose of acetaminophen is 4,000 mg from all sources in 24 hours. When ordered for pain, acetaminophen should be given even when other ordered pain medications are indicated., Routine 154 (Given - Provider: Mickey Velasquez RN) gadoterate meglumine (Dotarem) (0.5 mMol/mL) injection solution 0-100 mL (COMPLETED) 0-100 mL, Intravenous, ONCE PRN, 1 dose, Starting on Tue08/05/23 at 2139, Until Tue08/05/23 at 2139, Per Protocol, Radiology Contrast, Routine 2138 (Given - Provider: Andrei Sifuentes) HYDROmorphone (Dilaudid) tablet 2 mg 2 mg, Oral, EVERY 4 HOURS PRN, Starting on Tue08/04/23 at 1729, Until 08/07/23 at 1811, Pain, Routine 0022 (Given - Provider: Samuel Conti RN)0544 (Given - Provider: Samuel Conti RN)0952 (Given - Provider: Candy Gray RN) lidocaine (Xylocaine) 1% (10 mg/mL) injection 3 mg 3 mg (0.3 mL), Subcutaneous, ONCE PRN, 1 dose, Starting on Debbie 08/04/23 at 1636, Until 08/07/23 at 1811, for discomfort with PIV insertion, Recovery (Recovery-Hospital Unit), Routine sodium chloride 0.9 % (flush) (BD PosiFlush Normal Saline 0.9) flush 5-20 mL 5-20 mL, Intravenous, EVERY 1 MIN PRN, Starting on Debbie 08/04/23 at 1636, Until Tue08/07/23 at 1811, flush, Flush pertains to all indwelling lines. Flush per protocol found in the job aid using the link provided on this medication record., Recovery (Recovery-Hospital Unit), Routine Linked Groups Order Group 1: dexAMETHasone (Decadron) tablet 4 mg ()Jump to med 4 mg, Oral, EVERY 6 HOURS SCHEDULED, 4 doses, First dose on Tue08/05/23 at 0700, Last dose on Tue08/06/23 at 0000, Routine Followed by dexAMETHasone (Decadron) tablet 4 mgJump to med 4 mg, Oral, EVERY 12 HOURS SCHEDULED (2 times per day), 6 doses, First dose on Tue08/06/23 at 0900, Last dose on Tue08/08/23 at 2100, Routine Followed by dexAMETHasone (Decadron) tablet 2 mgJump to med 2 mg, Oral, EVERY 12 HOURS SCHEDULED (2 times per day), 6 doses, First dose on Tue08/09/23 at 0900, Last dose on Tue08/11/23 at 2100, Routine Followed by dexAMETHasone (Decadron) tablet 1 mgJump to med 1 mg, Oral, EVERY 12 HOURS SCHEDULED (2 times per day), 6 doses, First dose on Tue08/12/23 at 0900, Last dose on 08/14/23 at 2100, Routine Followed by dexAMETHasone (Decadron) tablet 1 mgJump to med 1 mg, Oral, DAILY, 3 doses, First dose on Tue08/15/23 at 0900, Last dose on Tue08/17/23 at 0900, Routine documented in this encounter Care Teams Point Of Care Technician Relationship Specialty Start Date End Date Molina Herr MD [facility] [place] [id number] [place] [address] PCP - General 01/27/10 documented as of this encounter
--- OUTSIDE RECORDS SUMMARY | 2023-10-17 15:08 | XMS_ITS | Encounter Summary ---
[place] [address] Care Team Providers Care Quality Management Coordinator Name Role Phone Molina Herr MD Primary Care Provider [phone] Reason for Visit * Auth/Cert (Routine) Specialty Diagnoses / Procedures Referred By Flo t Referred To Contact Diagnoses Brain tumor Brain mass with mass effect Rolly Dunlap MD [facility] [address] [place] [address] [facility] Referral ID Status Reason Start Date Expiration Date Visits Re quested Visits Authorized [id number] 1 1 Encounter Details Date Type Department Care Team (Latest Contact Info) Description 07/28/2023 10:47 PM EDT - 07/30/2023 10:49 AM EDT Hospital Encounter Neurosciences and ENT Unit Level 5 [place] [address] Rolly Dunlap MD [facility] [address] [place] [address] Brain tumor Discharge Disposition: Home Social History Tobacco Use Types Packs/Day Years Used Date Smoking Tobacco: Never Smokeless Tobacco: Never Alcohol Use Standard Drinks/Week Comments Not Currently 0 (1 standard drink = 0.6 oz pur e alcohol) nothing in a few months [facility] Utilities Answer Date Recorded In [...] any time in the past 12 m [facility], were you homeless or living in a [facility] (including now)? No 07/29/2023 IPV Inpatient Questions [...] Sign Reading Time Taken Comments Blood Pressure 110/65 07/30/2023 3:49 AM EDT Pulse - - Temperature 37 ??C (98.6 ??F) 07/30/2023 3:49 AM EDT Respiratory Rate 18 07/30/2023 5:35 AM EDT Oxygen Saturation 95% 07/30/2023 5:35 AM EDT Inhaled Oxygen Concentration - - Weight 78.1 kg (172 lb 1.6 oz) 07/28/2023 10:55 PM EDT Height 172.7 cm (5' 7.99) 07/28/2023 10:55 PM E DT Body Mass Index 26.17 07/28/2023 10:55 PM EDT documented in this encounter Discharge Summaries * Alicia Holder MD - 07/30/2023 10:28 AM EDT Images from the original note were not included. Neurosurgery Discharge Summary Patient Name: Perfecto Polk Patient Age: 82 y.o. Admit date: 07/28/2023 Discharge Date and Time: 07/30/23 10:28 AM Attending Physician: Rolly Dunlap MD Discharging Provider: Alicia Holder MD Discharging Service: NEUROSURGERY Operations/Major Procedures: None Active Hospital Problems: Active Hospital Problems Diagnosis Brain tumor Resolved Hospital Problems No resolved problems to display. Active Non Hospital Problems: Active Non-Hospital Problems Diagnosis Total knee replacement status Acute appendicitis Primary osteoarthritis of left knee (DJD) Osteomyelitis Discitis of lumbar region Lumbar degenerative disc disease History of Presentation: Per review of relevant records The following is from the H&P note on 07/27: Perfecto Polk is an 82 y.o. 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 ...report[s] that since a right TKA three weeks ago, he has noticed progressive problems with his memory (names especially) and word finding difficulty. He also has lost 12 pounds which he relates topoor appetite since surgery. He denies any headaches, nausea, vomiting, numbness, or weakness. He has had urinary frequency however but was evaluated with UA and blood work at PCP which was all reassuring. Given his new sx, PCP ordered outpatient MRI which was done at [facility] today and revealed L temporal tumor for which he was instructed to go to the ED. Dr. Dunlap was contacted via the tumor hotline and the patient was transferred here for further evaluation. Exam was significant for occasional phasic errors in speech and word finding difficulty, however the rest of the exam was otherwise intact. Radiographic imaging demonstrated a 4cm L temporal enhancing mass. Hospital Course: On 07/27, Perfecto Polk was admitted to [facility] from [facility] for evaluation and management of enhancing Ltemporal mass. Labs were reassuring, and pt was given dexamethasone to reduce tumor-associated edema and levetiracetam for seizure ppx. Further management was discussed with the patient on 07/27, and again on 07/28, at which point the patient elected to pursue resection.CT CAP was collected to complete clinical workup prior to discharge. On 07/29, Synaptive DTI was performed with a tentative plan toreturn for resection on 08/02. Patient was cleared to dc home with plans to return for surgery. Important Studies and Lab Data: Labs: No results found for this or any previous visit (from the past 24 hour(s)). Studies: MRI Brain wwo Contrast (Generic) Addendum Date: 07/28/2023 [...] have questions please contact the health care aide that requested your imaging first. Electronically signed by: Melvin Dinh MD, [facility] ([phone]), at 07/28/2023 7:12 PM --------ORIGINAL REPORT -------- EXAMINATION: MRI BRAIN WWO [...] would be characteristic of a aggressive primary VISITOR SERVICES TECHNICIAN neoplasm such as glioblastoma or a very large metastasis. I have discussed the findings with the soil science technical officer and have recommended the patient be taken to the emergency department. I will expedite this report. Thank you for letting us participate in the care of this patient. If you are a health care provider and have any questions regarding this report, please contact the number below. For patients who have questions please contact the health care aide that requested your imaging first. Electronically signed by: Melvin Dnih MD, [facility] ([phone]), at 07/28/2023 6:59 PM Addendum Date: 07/28/2023 --------ADDENDUM #1-------- The Workflow [...] would be characteristic of a aggressive primary VISITOR SERVICES TECHNICIAN neoplasm such as glioblastoma or a very largemetastasis. I have discussed the findings with the soil science technical officer and have recommended the patient be taken to the emergency department. I will expedite this report. Thank you for letting us participate inthe care of this patient. If you are a health care provider and have any questions regarding this report, please contact the number below. For patients who have questions please contact the health care aide that requested your imaging first. Electronically signed by: Melvin Dinh MD, [facility] ([phone]), at 07/28/2023 6:59 PM Result Date: 07/28/2023 EXAMINATION: MRI BRAIN WWO [...] would be characteristic of a aggressive primary VISITOR SERVICES TECHNICIAN neoplasm such as glioblastoma or a very large metastasis. I have discussed the findings with the soil science technical officer and have recommended the patient be taken to the emergency department. I will expedite this report. Thank you for letting us participate in the care of this patient. If you are a health care provider and have any questions regarding this report, please contact the number below. For patients who have questions please contact the [facility] care professi onal that requested your imaging first. Electronically signed by: Melvin Dinh MD, [facility] ([phone]), at 07/28/2023 6:59 PM Pending Studies and Lab Data: None Discharge Condition: Good Discharge to: Home Future Appointments and Orders Future Appointments and Orders Future Appointments Provider Department Dept Phone 08/03/2023 9:30 AM [facility] ROOM 3 XRay at [facility] Arrive at: [facility] [phone] Please go to [facility] ([place] Location). 08/03/2023 10:[address] Shila Howell Team Orthopaedics at [facility] Arrive at: [facility] [phone] 08/03/2023 8:10 PM [facility] MR 2 MRI at [facility] Arrive at: [facility] [phone] Discharge Medications: Your Medications New Medications Dose Details dexAMETHasone 4 mg tablet Commonly known as: Decadron Take 1 tablet by mouth 2 times daily. 4 mg Quantity: 30 tablet Refills: 0 levETIRAcetam 500 mg tablet Commonly known as: Keppra Take 1 tablet by mouth 2 times daily. 500 mg Quantity: 60 tablet Refills: 0 pantoprazole EC [address] tablet Commonly known as: Protonix Take 1 tablet by mouth daily. Start taking on: July 31, 2023 40 mg Quantity: 30 tablet Refills: 0 Continued medications with new dosing Dose Details * acetaminophen 500 mg tablet Commonly known as: Tylenol Take 2 tablets by mouth 3 times daily. What changed: Another medication with the same name was added. Make sure you understand how and when to take each. 1,000 mg Quantity: 180 tablet Refills: 0 * acetaminophen 650 mg/20.3 mL Solution Commonly known as: Tylenol Take 31.2 mLs by mouth every 6 hours as needed (mild pain (1-3)). What changed: You were already taking a medication with the same name, and this prescription was added. Make sure you understand how and when to take each. 1,000 mg Refills: 0 * This list has 2 medication(s) that are the same as other medications prescribed for you. Read thedirections carefully, and ask your doctor or other care provider to review them with you. Continued medications, unchanged Dose Details aspirin EC 81 mg EC (DR) tablet Take 1 tablet by mouth 2 times daily. 81 mg Quantity: 60 tablet Refills: 0 celecoxib 200 mg capsule Commonly known as: CeleBREX Take 1 capsule by mouth 2 times daily for 42 doses. 200 mg Quantity: 30 capsule Refills: 1 levothyroxine 25 mcg tablet Commonly known as: Synthroid 25MCG = 1 Tablet(s), PO, Once daily Refills: 0 Lipitor 10 mg tablet Take 20 mg by mouth. Generic drug: atorvastatin 20 mg Refills: 0 aufvcyubnasxs-IS-ecsx 200-10 mcg-mg Tablet, Chewable Commonly known as: SOURCE CF Take 1 tablet by mouth daily. 1 tablet Refills: [address] capsule Commonly known as: PriLOSEC Take 20 mg by mouth daily. 20 mg Refills: 4 polyethylene glycoL 17 gram/dose Powder Commonly known as: Miralax Take 17 g by mouth 2 times daily as needed for up to 30 days. 17 g Refills: 0 senna-docusate 8.6-50 mg Tablet Commonly known as: Pericolace Take 2 tablets by mouth 2 times daily as needed for Constipation for up to 30 days. 2 tablet Refills: 0 ubiquinone 100 mg capsule Commonly known as: Ubiquinone Take 200 mg by mouth once. 200 mg Refills: 0 STOPPED Medications cephALEXin 500 mg capsule Commonly known as: Keflex cholecalciferol (Vitamin D3) 25 mcg (1,000 unit) Capsule HYDROmorphone 4 mg tablet Commonly known as: Dilaudid ibuprofen 400 mg tablet Commonly known as: Motrin UNREVIEWED medications - Discuss With Your Provider Dose Details traMADoL 50 mg tablet Commonly known as: Ultram Take 1 tablet by mouth every 6 hours as needed for Pain. 50 mg Quantity: 28 tablet Refills: 0 Updated Allergies/ADRs: Allergies Allergen Reactions Penicillins Hives [facility] Penicillin Allergy Risk Assessment 06/13/2023: Low risk penicillin allergy. OK to receive full dose of cefazolin, cefuroxime, or any 3rd or 4th+ generation cephalosporin. Commonly used phone numbers Neuro-oncology [phone] Radiation oncology [phone] Endocrinology [phone] Infectious disease [phone] Neurology [phone] Hematology/Oncology [phone] Plastic Surgery [phone] Trauma/General Surgery [phone] Urology [phone] Instructions Given to Patient at Discharge: Patient Instructions DISCHARGE INSTRUCTIONS PRESCRIPTION INSTRUCTIONS: Please see the medication reconciliation list on this discharge summary for a current list of your medications. Stop the use of blood thinning medications until instructed otherwise by your surgical team. This includes medications known as antiplatelet, anticoagulant, and non-steroidal anti-inflammatory (NSAIDs) drugs. Common ctmc-oat-lsoamfe medications which should be avoided include Aspirin, ibuprofen, and naproxen among others. These medications are sometimes combined with other drugs or are sold undera trade name. Common prescription medications which should be avoided include Plavix (clopidogrel) and Coumadin (warfarin) among others. The following medications are commonly prescribed. An [x] indicates that these medications have been prescribed for you. [x] Antiepileptics - seizure prophylaxis: medications such as Keppra (levetiracetam) and Dilantin (phenytoin) Antiepileptics are commonly prescribed after surgery to prevent seizures. Take the medication as directed. At your follow-up appointment with Neurosurgery, ask how long you need to continue taking this medication. If you have difficulty affording this medication please contact us for prescription assistance. [x] Steroids - anti-inflammatory: Decadron (dexamethasone) Steroids are commonly prescribed after surgery to reduce swelling in the brain. This medication is often gradually reduced until discontinued or to a lower level to be assessed again at follow up. [x] PPIs or H2 blockers - Gastrointestinal prophylaxis: medications such Protonix or Pepcid (famotidine) PPIs or H2 blockers are commonly prescribed after surgery to protect your stomach while you are taking steroids. Once you have finished taking the steroids you may stop this medication. [] Opioids - Pain relief: Oxycodone 5mg or Dilaudid 2mg every 4-6 hours as needed for acute pain Opioids are commonly prescribed for severe pain. DO NOT use alcohol, drive, or operate heavy machinery while taking these medications. These medications may cause constipation. [] Stool softeners - Constipation relief: medications such as docusate or senakot Stool softeners are commonly used after surgery to help make stools easier to pass. These medications can be obtained hyfn-ejk-ulceikh and their use is recommended on an as needed basis for hard or difficult stools. They should be discontinued for loose stools and diarrhea. WHEN TO SEEK MEDICAL CARE: Signs or [...] - Chest pain or shortness of breath To help prevent a DVT: - Exercise [...] while awake, for prolonged amounts of time. WOUND CARE: - Keep incisional site clean and dry. You can remove your dressing 2 days after surgery, if not removed prior to discharge. - You may shower and shampoo incisional site, per your usual routine, 4 days after surgery. DIET: - You may resume your usual diet. - A well-balanced diet is recommended for wound healing. - Prune juice or prunes can be added to your diet to assist with any constipation. ACTIVITY: - You may increase your activities as tolerated. - Restrict strenuous activity (such as running, jumping, jogging, shoveling, etc.) until cleared byyour surgical team. DRIVING: - Do not drive while taking narcotic pain medication. [] You may return to driving 2 weeks after surgery. [x] Do NOT drive until cleared by Neurosurgery. [] You have had a seizure and driving is prohibited (see state regulations). Speak to your doctor for further recommendations. FOLLOW UP PLAN: Appointments: We will reach out regarding surgery scheduling. If you do not hear back, please call into our neurosurgery office. Phone number is listed below. HOW TO REACH NEUROSURGERY Office Hours (Tuesday through Tuesday 8am-5pm): Call On weekends or after office hours (after 5pm or before 8am): Call [phone] and ask the commuter train operator to page the Neurosurgery Resident/Advanced Practice Provider shader and toner. *Your surgeon may not be director call (especially after office hours or on the weekend) so be ready totell about yourself and your surgery when you call. Neurosurgery Providers Adult Neurosurgery Dr. Nevan James Dr. Pascual Echt Dr. Zachariah Colin Dr. Debbi Montesinos Pediatric Neurosurgery Dr. Tiny Velez Advanced Practice Providers Korin Rodrigues, Nurse Practitioner (outpatient telehealth) Tonya Plasencia, Physician Administrative Representative (inpatient/outpatient: neuro-oncology) Terri Snell, Physician Administrative Representative (inpatient) Osiris Ospina, Physician Administrative Representative (inpatient) Dajuan Ahmadi, Physician Administrative Representative (inpatient) Horace Paulino, Nurse Practitioner (outpatient: pediatric) Lalita Gordon, Nurse Practitioner (outpatient: vascular) Jess Fisher, Physician Administrative Representative (outpatient: spine) William Zambrano, Physician Administrative Representative (outpatient) Outpatient Nurses Future Appointments and Orders Future Appointments and Orders Future Appointments Provider Department Dept Phone 08/03/2023 9:30 AM [facility] DX ROOM 3 XRay at [facility] Arrive at: [facility] [phone] Please go to [facility] ([facility]). 08/03/2023 10:50 AM Clinic, Dr Fuchs Team Orthopaedics at [facility] Arrive at: [facility] [phone] 08/03/2023 8:10 PM [facility] MR 2 MRI at [facility] Arrive at: [facility] [phone] @[email or web address] Alicia Holder MD, 07/30/2023 documented in this encounter Discharge Instructions * Patient Instructions* Alicia Holder MD - 07/30/2023 10:25 AM EDT DISCHARGE INSTRUCTIONS PRESCRIPTION INSTRUCTIONS: Please see the medication reconciliation list on this discharge summary for a current list of your medications. Stop the use of blood thinning medications until instructed otherwise by your surgical team. This includes medications known as antiplatelet, anticoagulant, and non-steroidal anti-inflammatory (NSAIDs) drugs. Common xoes-aat-kpvenag medications which should be avoided include Aspirin, ibuprofen, and naproxen among others. These medications are sometimes combined with other drugs or are sold undera trade name. Common prescription medications which should be avoided include Plavix (clopidogrel) and Coumadin (warfarin) among others. The following medications are commonly prescribed. An [x] indicates that these medications have been prescribed for you. [x] Antiepileptics - seizure prophylaxis: medications such as Keppra (levetiracetam) and Dilantin (phenytoin) Antiepileptics are commonly prescribed after surgery to prevent seizures. Take the medication as directed. At your follow-up appointment with Neurosurgery, ask how long you need to continue taking this medication. If you have difficulty affording this medication please contact us for prescription assistance. [x] Steroids - anti-inflammatory: Decadron (dexamethasone) Steroids are commonly prescribed after surgery to reduce swelling in the brain. This medication is often gradually reduced until discontinued or to a lower level to be assessed again at follow up. [x] PPIs or H2 blockers - Gastrointestinal prophylaxis: medications such Protonix or Pepcid (famotidine) PPIs or H2 blockers are commonly prescribed after surgery to protect your stomach while you are taking steroids. Once you have finished taking the steroids you may stop this medication. [] Opioids - Pain relief: Oxycodone 5mg or Dilaudid 2mg every 4-6 hours as needed for acute pain Opioids are commonly prescribed for severe pain. DO NOT use alcohol, drive, or operate heavy machinery while taking these medications. These medications may cause constipation. [] Stool softeners - Constipation relief: medications such as docusate or senakot Stool softeners are commonly used after surgery to help make stools easier to pass. These medications can be obtained vdct-myd-faqnnpx and their use is recommended on an as needed basis for hard or difficult stools. They should be discontinued for loose stools and diarrhea. WHEN TO SEEK MEDICAL CARE: Signs or [...] - Chest pain or shortness of breath To help prevent a DVT: - Exercise [...] while awake, for prolonged amounts of time. WOUND CARE: - Keep incisional site clean and dry. You can remove your dressing 2 days after surgery, if not removed prior to discharge. - You may shower and shampoo incisional site, per your usual routine, 4 days after surgery. DIET: - You may resume your usual diet. - A well-balanced diet is recommended for wound healing. - Prune juice or prunes can be added to your diet to assist with any constipation. ACTIVITY: - You may increase your activities as tolerated. - Restrict strenuous activity (such as running, jumping, jogging, shoveling, etc.) until cleared byyour surgical team. DRIVING: - Do not drive while taking narcotic pain medication. [] You may return to driving 2 weeks after surgery. [x] Do NOT drive until cleared by Neurosurgery. [] You have had a seizure and driving is prohibited (see state regulations). Speak to your doctor for further recommendations. FOLLOW UP PLAN: Appointments: We will reach out regarding surgery scheduling. If you do not hear back, please call into our neurosurgery office. Phone number is listed below. HOW TO REACH NEUROSURGERY Office Hours (Tuesday through Tuesday 8am-5pm): Call On weekends or after office hours (after 5pm or before 8am): Call [phone] and ask the commuter train operator to page the Neurosurgery Resident/Advanced Practice Provider shader and toner. *Your surgeon may not be director call (especially after office hours or on the weekend) so be ready totell about yourself and your surgery when you call. Neurosurgery Providers Adult Neurosurgery Dr. Nevan James Dr. Pascual Echt Dr. Zachariah Montesinos Pediatric Neurosurgery Dr. Tiny Velez Advanced Practice Providers Korin Rodrigues, Nurse Practitioner (outpatient telehealth) Tonya Plasencia, Physician Administrative Representative (inpatient/outpatient: neuro-oncology) Terri Snell, Physician Administrative Representative (inpatient) Osiris Ospina, Physician Administrative Representative (inpatient) Dajuan Ahmadi, Physician Administrative Representative (inpatient) Horace Paulino, Nurse Practitioner (outpatient: pediatric) Lalita Gordon, Nurse Practitioner (outpatient: vascular) Jess Fisher, Physician Administrative Representative (outpatient: spine) William Zambrano, Physician Administrative Representative (outpatient) Outpatient Nurses documented in this encounter [...] 20 mg by mouth daily. 4 03/08/2014 [id number] c (SOURCE CF) 200-10 mcg-mg Chew Take [...] 07/05/2023 08/06/2023 documented as of this encounter Progress Notes * Savana Lion MD - 07/30/2023 8:28 AM EDT [facility] NEUROSURGERY PROGRESS NOTE DATE: 07/30/2023; HD: 2; ; : 1940 ID: Perfecto Polk is a 82 y.o. male w PMHx of OA and carotid stenosis on ASA81 who presented 07/28/23 w aphasia found to have a left temporal enhancing mass. Exam notable for word finding difficulty andparaphasic errors. Otherwise clinically well. 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 Started on Keppra and Decadron. INTERVAL Hx: -Feeling less anxious and more content about the plan today -Speech is subtly improved on steroids, but he is still most bothered by memory loss -Remembers needing an MRI scan and that he will go home and return for resection nxt wk -No headaches, no weakness, numbness, paresthesias -Grateful for his new knee MEDICATIONS: Scheduled Meds: atorvastatin 20 mg Oral QPM levothyroxine 25 mcg Oral QAM sodium chloride 0.9 % (flush) 5 mL Intravenous BID dexAMETHasone 4 mg Intravenous Q6H Or dexAMETHasone 4 mg Oral Q6H pantoprazole EC 40 mg Oral Daily Or pantoprazole 40 mg Intravenous Daily levETIRAcetam 500 mg Oral BID Or levETIRAcetam 500 mg Intravenous BID Continuous Infusions: PRN: melatonin, sodium chloride 0.9 % (flush), lidocaine, acetaminophen OR acetaminophen ORacetaminophen, labetaloL, hydrALAZINE, polyethylene glycoL, ondansetron ODT OR ondansetron EXAM: Temp: [36.3 ??C (97.3 ??F)-37.1 ??C (98.8 ??F)] Heart Rate: -- Resp: [16-18] BP: (109-125)/(62-76) SpO2: [95 %-98 %] Heart Rate from SpO2: [68 bpm-91 bpm] I/O: Intake/Output Summary (Last 24 hours) at 07/30/2023 0828 Last data filed at 07/29/2023 1230 Gross per 24 hour Intake 580 ml Output -- Net 580 ml GEN: NAD, sitting up at EOB, finished eating NEURO: A+Ox4 Speech fluent and appropriate w word-finding difficulties and rare paraphasic errors Able to name 2/3 objects, able to repeat No facial asymmetry MOTOR: 07/09 x4 No pronator drift LT sensation intact x 4 LABS: Recent Labs 07/29/23 0125 07/28/23 192 WBC 7.9 6.3 HGB 11.0* 10.1* PLATELET 312 324 Recent Labs 07/29/23 0125 07/28/231924 NA 140 135 K 4.6 4.1 CL 105 102 CO2 23 24 BUN 20 24* CREATININE 1.30 1.36 Recent Labs 07/29/23 012 PT 12.0 INR 1.1 IMAGING: CT CAP: IMPRESSION 1. No metastatic disease appreciated in the chest, abdomen or pelvis. 2. Small right chest wall subcutaneous nodule, increased from 2018 but otherwise nonspecific. Low suspicion of malignancy. 3. Cholelithiasis and small polyps or mural nodules. No suspicion of primary malignancy. Consider follow-up outpatient ultrasound to check size stability. A/P: Perfecto Polk is a 82 y.o. male w PMHx of OA and carotid stenosis on ASA81 who presented 07/28/23 w aphasia found to have a left temporal enhancing mass. Exam notable for word finding difficulty and paraphasic errors. Otherwise clinically well. 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 Started on Keppra and Decadron. High suspicion for primary glial neoplasm. Discussed general management of glioma/met with surgery,chemotherapy, and radiation and explained indications for surgery. CT CAP negative for malignancy. Planning for MRI for surgical planning today, DC to home, and return for resection next week. -Continue steroids, 4mg BID -Continue Ppx Keppra -OK for diet, DVT chemoppx -No further labs -MRI w DTI -Q4H neuro checks -Activity as tolerated -DISPO: DC after MRI PROBLEM LIST: Brain mass Aphasia Cerebral edema For question please call NSGY pager [phone] Savana Lion MD 07/30/2023 8:28 AM [facility] Neurosurgery Inpatient Pager: #[phone] Personal Pager: #[phone] Clinical Documentation Improvement: Active Hospital Problems Diagnosis Brain tumor Resolved Hospital Problems No resolved problems to display. * Aisha Sparrow RN - 07/29/2023 10:46 PM EDT OUTCOME EVALUATION NOTE: OUTCOME SUMMARY: No significant changes in condition this shift. Pt. Alert and oriented X3, often disoriented to time and date. VSS, Reports back pain and right knee pain, well managed with tylenol. Pt. Awaiting MRI. PLAN MOVING FORWARD: Continue plan of care as is. INDIVIDUALIZED FALL PREVENTION INTERVENTIONS: Patient-specific fall risk factors per assessment: Generalized weakness, SBA for activities. Assistance:Stand pivot, assistance x2 Supervision: Eyes on Surveillance: Bed locked in low position, call lr within reach, purposeful hourly rounding, clutter free environment, bed/chair alarm on, family at bedside Patient-specific fall prevention interventions for sensory deficits provided: Yes CPG GOAL OUTCOME EVALUATION: Continue care plan as documented. * Savana Lion MD - 07/29/2023 5:47 AM EDT [facility] NEUROSURGERY PROGRESS NOTE DATE: 07/29/2023; HD: 1; ; : 1940 ID: Perfecto Polk is a 82 y.o. male w PMHx of OA and carotid stenosis on ASA81 who presented 07/28/23 w aphasia found to have a left temporal enhancing mass. Exam notable for word finding difficulty andparaphasic errors. Otherwise clinically well. 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 Started on Keppra and Decadron. INTERVAL Hx: -Overwhelmed -Talked w Dr. Dunlap this morning -Pending CT CAP MEDICATIONS: Scheduled Meds: atorvastatin 20 mg Oral QPM levothyroxine 25 mcg Oral QAM sodium chloride 0.9 % (flush) 5 mL Intravenous BID dexAMETHasone 4 mg Intravenous Q6H Or dexAMETHasone 4 mg Oral Q6H pantoprazole EC 40 mg Oral Daily Or pantoprazole 40 mg Intravenous Daily levETIRAcetam 500 mg Oral BID Or levETIRAcetam 500 mg Intravenous BID Continuous Infusions: PRN: sodium chloride 0.9 % (flush), lidocaine, acetaminophen OR acetaminophen OR acetaminophen, labetaloL, hydrALAZINE, polyethylene glycoL, ondansetron ODT OR ondansetron EXAM: Temp: [36.8 ??C (98.2 ??F)-37.1 ??C (98.8 ??F)] Heart Rate: [71-77] Resp: [12-20] BP: (116-134)/(72-94) SpO2: [94 %-100 %] Heart Rate from SpO2: [86 bpm-90 bpm] I/O: Intake/Output Summary (Last 24 hours) at 07/29/2023 0547 Last data filed at 07/29/2023 0500 Gross per 24 hour Intake -- Output 1175 ml Net -1175 ml GEN: NAD, resting awake in bed NEURO: A+Ox3 Speech fluent and appropriate w word-finding difficulties and rare paraphasic errors. No facial asymmetry MOTOR: 5/5 x4 No pronator drift LT sensation intact x 4 LABS: Recent Labs 07/29/23 0125 07/28/23 192 WBC 7.9 6.3 HGB 11.0* 10.1* PLATELET 312 324 Recent Labs 05/12407/28/231924 NA 140 135 K 4.6 4.1 CL 105 102 CO2 23 24 BUN 20 24* CREATININE 1.30 1.36 Recent Labs 07/29/23 012 PT 12.0 INR 1.1 IMAGING: None new. A/P: Perfecto Polk is a 82 y.o. male w PMHx of OA and carotid stenosis on ASA81 who presented 07/28/23 w aphasia found to have a left temporal enhancing mass. Exam notable for word finding difficulty and paraphasic errors. Otherwise clinically well. 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 Started on Keppra and Decadron. High suspicion for primary glial neoplasm. Discussed general management of glioma/met with surgery,chemotherapy, and radiation and explained indications for surgery again this morning. Pending CT CAP for thorough workup. Pt would like to speak with Dr. Dunlap prior to DC again this afternoon, then may DC to home. Planning for resection next week. -F/u CT CAP -Continue steroids, OK to wean to 4mg BID upon DC -Continue Ppx Keppra -OK for diet, DVT chemoppx -No further labs -Q4H neuro checks -Activity as tolerated -DISPO: DC in afternoon, return next week for surgery PROBLEM LIST: Brain mass Aphasia Cerebral edema For question please call NSGY pager [phone] Savana Lion MD 07/29/2023 5:47 AM [facility] Neurosurgery Inpatient Pager: #[phone] Personal Pager: #[phone] Clinical Documentation Improvement: Active Hospital Problems Diagnosis Brain tumor Resolved Hospital Problems No resolved problems to display. * Aisha Sparrow RN - 07/29/2023 12:51 AM EDT Perfecto Polk arrived to 224U @ 5737 from [facility]. Pt. Reports back to right knee and butt, tylenol given for pain.Oriented to room, call lr within reach, educated on importance of using prior to getting OOB, AVSS, belongings updated in eDH, bed locked in low position, purposeful hourly rounding, bed/chair alarm on. Incision to right knee has some scabbing but not tenderness or drainage. No otherskin issues noted. CT paged procedure per provider. Page Sent Successfully Page Confirmation To Pager number: [phone] From Submitter: Aisha Sparrow Urgency Level: FYI Callback Number: [phone] The following Message was sent: [] - Callback:[phone]: Jam: Adm from [facility], needs IV, came with one but it is leaking, needs one for CT - Aisha Sparrow The following status was returned from the ware server: Page for [phone] successfully sent to [id number] having status of Available. OK * Yvonne Mcclellan RN - 07/28/2023 11:16 PM EDT Page Sent Successfully Page Confirmation To Pager number: [phone] From Submitter: Yvonne Mcclellan Urgency Level: FY Callback Number: [phone] The following Message was sent: [] - Callback:[phone] Jam arrived from [facility], need admission orders - Yvonne Mcclellan The following status was returned from the ware server: Page for [phone] successfully sent to [id number] having status of Available. documented in this encounter H&P Notes * Rolly Dunlap MD - 07/28/2023 11:18 PM EDT [facility] NEUROSURGERY H&P Date: 07/28/2023 ID: Perfecto Polk, 82 y.o. male : 1940 Admission Date: 07/28/2023 PCP: Molina Herr MD CC/Reason for consult: L temporal tumor History of Present Illness: Perfecto Polk is a 82 y.o. right handed male with a PMHx significant for OA and carotid stenosis on ASA81 presenting due with aphasia and memory loss found to have left temporal enhancing mass. Maldonado is here with his this evening. They report that since a right TKA three weeks ago, he has noticed progressive problems with his memory (names especially) and word finding difficulty. He also has lost 12 pounds which he relates to poor appetite since surgery. He denies any headaches, nausea, vomiting, numbness, or weakness. He has had urinary frequency however but was evaluated with UA and blood work at PCP which was all reassuring. Given his new sx, PCP ordered outpatient MRI which was done at [facility] today and revealed L temporal tumor for which he was instructed to go to the ED. Dr. Dunlap was contacted via the tumor hotline and the patient was transferred here for further evaluation. 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 He does not use tobacco, social EtOH use. He is very active and [place] Past Medical History: Past Medical History: Diagnosis Date Hyperlipidemia Lumbar degenerative disc disease 08/21/2010 Patient Active Problem List Diagnosis Code Discitis of lumbar region M46.46 Lumbar degenerative disc disease M51.36 Osteomyelitis M86.9 Primary osteoarthritis of left knee (DJD) M17.12 Acute appendicitis K35.80 Total knee replacement status Z96.659 Past Surgical History: Past Surgical History: Procedure Laterality Date PRO ARTHROPLASTY KNEE CONDYLE & PLATEAU MEDIAL & LAT COMPARTMENTS Right 07/05/2023 TOTAL KNEE ARTHROPLASTY (WRVU 19.6) performed by Ernie Fuchs MD at [facility] MAIN OR PRO COLONOSCOPY, BIOPSY 01/10/2013 COLONOSCOPY FLEXIBLE, WITH BX performed by Dominick Earl MD at [facility] ENDOSCOPY PRO COLONOSCOPY, REMV LESN, SNARE N/A 01/12/2018 COLONOSCOPY, POLYPECTOMY, REMOVAL LESION BY SNARE (WRVU 4.67) performed by Guerda Coombs MD at [facility] ENDOSCOPY PRO COLONOSCOPY, REMV LESN, SNARE N/A 01/20/2023 COLONOSCOPY, POLYPECTOMY, REMOVAL LESION BY SNARE (WRVU 4.57) performed by Guerda Coombs MD at [facility] ENDOSCOPY PRO LAP, APPENDECTOMY N/A 03/09/2017 LAPAROSCOPIC APPENDECTOMY (WRVU 9.45) performed by Saurav Chen MD at [facility] MAIN OR PRO UPPER GI ENDOSCOPY, DIAGNOSTIC N/A 06/11/2021 EGD, UPPER GI ENDOSCOPY performed by Guerda Coombs MD at [facility] ENDOSCOPY Medications: Current Facility-Administered Medications on File Prior to Encounter Medication Dose Route Frequency Provider Last Rate Last Admin [COMPLETED] gadoterate meglumine (Dotarem) (0.5 mMol/mL) injection solution 0- 100 mL 0-100 mL Intravenous Once PRN Laisha Peters MD 16 mL at 07/28/231850 [COMPLETED] levETIRAcetam (Keppra) (100 mg/mL) IV injection 1 g 1 g Intravenous Once Vito Vidales MD 1 g at 07/28/232021 [COMPLETED] dexAMETHasone (Decadron) injection 4 mg 4 mg Intravenous Once Vito Vidales MD 4 mg at 07/28/232056 [DISCONTINUED] dexAMETHasone (Decadron) tablet 4 mg 4 mg Oral Q6H [facility] Munira Gutierres, DO Current Outpatient Medications on File Prior to Encounter Medication Sig Dispense Refill cephALEXin (Keflex) 500 mg capsule Take 4 capsules by mouth once as needed (1 hour prior to dental work). 20 capsule 0 HYDROmorphone (Dilaudid) 4 mg tablet Take 0.5 tablets by mouth every 6 hours as needed for Pain. 20tablet 0 traMADoL (Ultram) 50 mg tablet Take 1 tablet by mouth every 6 hours as needed for Pain. (Patient not taking: Reported on 07/28/2023) 28 tablet 0 [] celecoxib (CeleBREX) 200 mg capsule Take 1 capsule by mouth 2 times daily for 42 doses. senna-docusate (Pericolace) 8.6-50 mg Tablet Take 2 tablets by mouth 2 times daily as needed for Constipation for up to 30 days. polyethylene glycoL (Miralax) 17 gram/dose Powder Take 17 g by mouth 2 times daily as needed for upto 30 days. aspirin EC 81 mg EC (DR) tablet Take 1 tablet by mouth 2 times daily. 60 tablet 0 acetaminophen (Tylenol) 500 mg tablet Take 2 tablets by mouth 3 times daily. 180 tablet 0 ubiquinone (Ubiquinone) 100 mg capsule Take 200 mg by mouth once. ibuprofen (ADVIL;MOTRIN) 400 mg Tablet Take 400 mg by mouth every 6 hours as needed for Pain. omeprazole (PRILOSEC) 20 mg Capsule, Delayed Release(E.C.) Take 20 mg by mouth daily. 4 Cholecalciferol, Vitamin D3, 1,000 unit Capsule Take 1,000 Units by mouth daily. herqxuowzfsyq-CM-yvxr (SOURCE CF) 200-10 mcg-mg Chew Take 1 tablet by mouth daily. levothyroxine (SYNTHROID) 25 mcg tablet 25MCG = 1 Tablet(s), PO, Once daily atorvastatin (LIPITOR) 10 mg tablet Take 20 mg by mouth. Scheduled Meds: Continuous Infusions: PRN Meds: Allergies: Allergies Allergen Reactions Penicillins Hives PAT Penicillin Allergy Risk Assessment 06/13/2023: Low risk penicillin allergy. OK to receive full dose of cefazolin, cefuroxime, or any 3rd or 4th+ generation cephalosporin. Social History: Social History Socioeconomic History Marital status: Spouse [...] no Housing Stability: Not on file Family History: Family History Problem Relation Age of Onset Cancer Brother Review of Systems: Please see HPI for pertinent details. 12 point ROS is otherwise negative. Vital Signs: Visit Vitals BP 134/79 (BP Location (NBP): Right arm, Patient Position: Lying) Temp 37.1 ??C (98.8 ??F) (Oral) Resp 17 SpO2 97% Physical Exam: General: NAD. Pleasant fit appearing male. HEENT: Atraumatic, normocephalic. Cardiovascular: Regular rate and rhythm. Respiratory: Normal inspiratory effort on RA. Extremities: WWP. R knee incision healing well. Neurological: Mental Status/Cognitive: GCS 15 Awake, alert, oriented x 3. Speech: Appropriate. Naming and repetition intact. Makes paraphasic errors in conversation with moderate frequency. Cranial Nerves: PERRL CN II: Visual pretty intact. CN III, IV, : EOMI. CN V: Sensation intact in V1, 2 and 3 distributions. CN VII: No facial asymmetry/droop. CN VIII: Intact hearing bilaterally to voice. CN IX, X: Palate and uvula rise in the midline. CN XI: Trapezius strength 5/5 bilaterally. CN XII: Tongue protrudes in the midline direction. Motor: No upper extremity drift. Segment Muscle Action Right Left C5 Deltoid Shoulder Abduction 5 5 C6 Biceps Elbow flexion 5 5 C6 Extensor carpi radialis Wrist extension 5 5 C7 Triceps Elbow extension 5 5 C8 Finger flexors Grasp 5 5 T1 Interossei Finger abduction 5 5 L2 Iliopsoas Hip flexion 5 5 L3 Quadriceps Knee extension 5 5 L4 Tibialis anterior Dorsiflexion 5 5 L5 Extensor hallucis longus Great toe extension 5 5 S1 Gastrocnemius Plantar flexion 5 5 Reflexes: Thomas's: none Clonus: none Gait: Not assessed Sensation: Intact in C5-T1 dermatomes in bilateral upper extremities. Intact in L2-S1 dermatomes in bilateral lower extremities. Cerebellar: No dysmetria. No intention tremor. Labs: Recent Labs 07/28/231924 WBC 6.3 HGB 10.1* PLATELET 324 Recent Labs 07/28/231924 NA 135 K 4.1 CL 102 CO2 24 BUN 24* CREATININE 1.36 GLUCOSE 89 No results for input(s): PT, INR in the last 72 hours. No results for input(s): AST, ALT, BILITOT, ALKPHOS, ALB, PROT, LIPASE, AMYLASE in the last 72 hours. Imaging: MRI brain wwo: Large ring-enhancing mass centered in the left temporal lobe with vasogenic edema pattern as described, and mass effect with compression of the left lateral ventricular system. 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 Imaging independently reviewed. Assessment: Perfecto Polk is a 82 y.o. male with a PMHx significant for OA and carotid stenosis on ASA81 presenting due with aphasia found to have left temporal enhancing mass. Exam notable for word finding difficulty and paraphasic errors. Otherwise clinically well. 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 Will continue Keppra and Decadron and obtain CT CAP to r/o mets. Discussed general management of glioma/met with surgery, chemotherapyand radiation and explained indications for surgery. Will discuss further tomorrow. Problem List: Left temporal tumor with brain compression Plan/Recommendations: -Admit to NSGY, floor level of care, Dr. Dunlap - Q4H neuro checks -BP control, keep SBP 90-160 -DVT ppx with SCDs, hold antiplatelets/anticoagulants -Hold home ASA -Ok for diet -Keppra 500mg BID -Decadron 4mg q6h + GI ppx -Activity as tolerated -CT CAP to r/o mets Today's plan of care will be discussed with attending neurosurgeon, Rolly Dunlap MD. Caren Arnold MD 07/28/2023 11:18 PM [facility] Neurosurgery Inpatient Pager: #[phone] Personal Pager: #[phone] There are no hospital problems to display for this patient. Active Non-Hospital Problems Diagnosis Total knee replacement status Acute appendicitis Primary osteoarthritis of left knee (DJD) Osteomyelitis Discitis of lumbar region Lumbar degenerative disc disease Pt seen and evaluated. Agree with Clayton's assessment and plan as above. 82 yo male with several week hx of speech difficulties. 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 Will discuss surgery and likely adjuvant treatment in next 1-2 weeks. Pt on steroids and keppra. documented in this encounter Miscellaneous Notes * Plan of Care - Maynor Jeffries RN - 07/30/2023 10:46 AM EDT Perfecto Polk discharged to Home by private car with Spouse. All belongings sent with patient. CHENCHO removed, incision healing well, no significant drainage, no dehiscence, no significant erythema, skin free from pressure ulcers. Discharge instructions, medications, and follow-up appointments reviewed, education provided on medications, follow up, who to call for changes in health condition prescriptions sent electronically to his pharmacy and they will pick them up. Patient instructed to call with concerns. The patien was without significant events for my period of care. Problem: Adult Inpatient Plan of Care Goal: Plan of Care Review 07/30/2023 1046 by Maynor Jeffries, RN Outcome: Outcome (s) achieved 07/30/2023 104 by Monagan, Maynor E, RN Outcome: Ongoing (Interventions Implemented as Appropriate) Goal: Patient-Specific Goal (Individualized) 07/30/2023 104 by Maynor Jeffries RN Outcome: Outcome (s) achieved 07/30/2023 104 by Maynor Jeffries RN Outcome: Ongoing (Interventions Implemented as Appropriate) Goal: Absence of Hospital-Acquired Illness or Injury 07/30/2023 104 by Maynor Jeffries RN Outcome: Outcome (s) achieved 07/30/2023 104 by Maynor Jeffries RN Outcome: Ongoing (Interventions Implemented as Appropriate) Goal: Optimal Comfort and Wellbeing 07/30/2023 104 by Maynor Jeffries RN Outcome: Outcome (s) achieved 07/30/2023 104 by Maynor Jeffries RN Outcome: Ongoing (Interventions Implemented as Appropriate) Goal: Readiness for Transition of Care 07/30/2023 104 by Maynor Jeffries RN Outcome: Outcome (s) achieved 07/30/2023 104 by Maynor Jeffries RN Outcome: Ongoing (Interventions Implemented as Appropriate) Problem: Fall Injury Risk Goal: Absence of Fall and Fall-Related Injury 07/30/2023 104 by Maynor Jeffries RN Outcome: Outcome (s) achieved 07/30/20231045 by Maynor Jeffries RN Outcome: Ongoing (Interventions Implemented as Appropriate) Problem: Infection Goal: Absence of Infection Signs and Symptoms 07/30/2023 104 by Maynor Jeffries RN Outcome: Outcome (s) achieved 07/30/2023 104 by Maynor Jeffries RN Outcome: Ongoing (Interventions Implemented as Appropriate) Maynor Jeffries RN * Initial Assessments - Patsy Gordon RN - 07/29/2023 2:59 PM EDT Office of Care Management Initial Assessment Medical record reviewed. Plan of care and patient status discussed with direct care Registered Nurse and/or Care Team in multidisciplinary rounds. Reason for Hospitalization: Because my brain doesn't work verywell Last COVID test: Lab Results Component Value Date COVID19 Not Detected 03/17/2020 Present on Admission: Brain tumor Hospitalizations Within the Past 30 Days: no previous admission in last 30 days Patient receiving hospital care under Inpatient status. Admission order reviewed. Health/Prescription Coverage: Primary Insurance: MEDICARE Payor: MEDICARE / Plan: MEDICARE PART A & B / Product Type: *No Product type* / Secondary Insurance: AARP SUPPLEMENT ONLY if patient has Medicare A&B - Does this patient have secondary insurance?: Yes ; Prescription Coverage: Yes Preferred Pharmacy: [id number] [address] [facility] [address] [facility] [address] [place] [address] [address] [facility] [address] [id number] [address] [facility] 10 [facility] [id number] Advance Care Planning: Attempt Cardiopulmonary Resuscitation - Inpatient Received -Advanced Directive: Yes, on file Who is your DPOA-HC?: Other (see comment) ( has passed on, has personal rep for sig other) Current Functional Ability: Independent, Assistive Person, Assistive Equipment Functional Status Prior to Admission: Independent Home Environment: Others in the home: significant other. Current Living Arrangements: home/apartment/condo. Accessibility Concerns:lives in one story home with sig other, 2 GLEN with handrail present. No mobility concerns noted at this time.. Current DME: cane - straight, grab bar - toilet, grab bar - tub/shower, raised toilet seat, shower chair, walker - standard [address] [facility] [id number] Social & Family Supports: All names listed below confirmed with patient as current and correct Extended Emergency Contact Information Primary Emergency Contact: Joan Polk Address: [address] [place] [address] [place] Relation: Child Secondary Emergency Contact: June Mohamud Address: [address] [place] [id number] [facility] Mobile Relation: Life Partner Current Care Provided by: self, spouse/significant other Transportation: no concerns Transportation Anticipated: family or friend will provide Assessment: Patient with no apparent RNCM/SW needs at this time. No housing, transportation, insurance, resources concerns identified at this time. Supports in place to achieve a safe post-hospital transition. No identified barriers to accessing necessary care and/or follow-up after discharge. Plan: Patient to d/c to home via private vehicle when medically ready. Pt may need to return for further treatment, pending testing results. Registered Nurse Hide Stretcher Hand / Design Engineer Marine Equipment will continue to follow patient???s progress and remain available if situation changes for coordination of care, psychosocial support and/or discharge planning. Office of Care Management Patsy Gordon MSN-Ed, RN ACM Cardiac Research Nurse and tile installer Information Systems Technician. * Plan of Care - Kirsten Bagley RN - 07/29/2023 10:53 AM EDT Problem: Adult Inpatient Plan of Care Goal: [...] Outcome: Ongoing (Interventions Implemented as Appropriate) Problem: Fall Injury Risk Goal: Absence of Fall and Fall-Related Injury Outcome: Ongoing (Interventions Implemented as Appropriate) Problem: Infection Goal: Absence of Infection Signs and Symptoms Outcome: Ongoing (Interventions Implemented as Appropriate) documented in this encounter Plan of Treatment Upcoming Encounters Date Type Department Care Team (Late st Contact Info) Description 10/27/2023 11:15 AM EDT Office [place] [address] Elly Alston MD [facility] H[facility] [place] [address] 10/27/2023 1:00 PM EDT Office Visit Speech Therapy at [address] Debra Franco, PROJECT DESIGN ENGINEER 11/03/2023 2:00 PM EDT Office Visit Speech Therapy at [place] [phone] Debra Franco, PROJECT DESIGN ENGINEER 11/08/2023 2:30 PM EDT Appointment MRI at [address] Navjot Grider MD [facility] [address] [place] [address] 11/09/2023 1:45 PM EDT Office Visit Hematology and Oncology at [address] Isabell Jacob MD [facility] [place] [address] 11/11/2023 10:30 AM EDT Office Visit Radiation Oncology at [place] [id number] Nicki Sharpe MD [facility] [place] [address] 11/15/2023 10:00 AM EDT Office Visit Speech Therapy at [place] [phone] Debra Franco, PROJECT DESIGN ENGINEER 11/16/2023 9:00 AM EDT Office Visit Hematology and Oncology at [place] [phone] Bisi Nam 11/22/2023 10:00 AM EDT Office [place] [phone] Debra Franco, ROLANDO 11/30/2023 9:00 AM EDT Office Visit Hematology [place] [address] Bisi Nam 12/14/2023 9:00 AM EDT Office Visit Hematology [place] [phone] Bisi Nam 12/28/2023 9:00 AM EDT Office Visit Hematology [place] [address] Bisi Nam documented as of this encounter Procedures Procedure Name Priority Date/Time Associated Diagnosis Comments MRI BRAIN WO CONTRAST Routine 07/30/2023 9:[address] CHEST ABDOMEN PELVIS W CONTRAST (GENERIC) Routine 07/29/2023 1:31 PM EDT HEMOGRAM Routine 07/29/2023 1:25 AM EDT DIFFERENTIAL, AUTOMATED Routine 07/29/19 1:25 AM EDT HC PARTIAL THROMBOPLASTIN TIME Routine 07/29/2023 1:25 AM EDT PROTHROMBIN TIME Routine 07/29/2023 1:25 AM EDT CBC (WITH DIFF) Routine 07/29/2023 1:25 AM EDT BASIC METABOLIC PANEL Routine 07/29/2023 1:25 AM EDT documented in this encounter Results * MRI Brain wo Contrast (07/30/2023 9:49 AM EDT) WORKSTATION ID [id number] RAD Anatomical Region Laterality Modality Head Magnetic [...] have questions please contact the health care aide that requested your imaging first. ? Electronically signed by: Otto Dunaway MD, [facility] ([phone]), at 07/30/2023 10:42 AM Narrative 07/30/2023 10:42 [...] who have questions please contactthe health care aide that requested your imaging first. Electronically signed by: Otto Dunaway MD, [facility]([phone]), at 07/30/2023 10:42 AM Rolly Dunlap MD IMG MRI ORDERABLES * CT Chest Abdomen Pelvis w Contrast (Generic) (07/29/2023 1:31 PM EDT) WORKSTATION ID [id number] [facility] Anatomical Region Laterality Modality Abdomen, Pelvis Computed [...] have questions please contact the health care aide that requested your imaging first. ? Electronically signed by: Rodney Jain MD, [facility] ([phone]), at 07/29/2023 5:03 PM Narrative 07/29/2023 5:03 PM EDT EXAMINATION: CT [...] who have questions please contactthe health care aide that requested your imaging first. Rolly Dunlap MD IMG CT ORDERABLES * (ABNORMAL) Differential, Automated (07/29/2023 1:25 AM EDT) Neutrophil % 87.3 % [facility] Neutrophil Absolute 6.89(H) 1.70 - 6.10 x10(3)/mc L [facility] Lymph % 9.3 % [facility] Lymphocytes Abs 0.7(L) 0.9 - 3.2 x10(3)/ L [facility] Monocyte % 1.5 % [facility] Monocyte Abs 0.1(L) 0.3 - 0.9 x10(3)/ L [facility] Eos % 1.1 % [facility] Eosinophils Abs 0.1 0.0 - 0.4 x10(3)/ L [facility] Basophil % 0.4 % [facility] Baso Absolute 0.0 0.0 - 0.1 x10(3)/[facility] Immature Gran % 0.40 % [facility] Comment: Immature granulocytes(IG's)percentage and absolute count will include metamyelocytes, myelocytes, and promyelocytes. Blood smears from CBCs yielding IG's will be scanned manually for concordance. If this scan disagrees with the automated IG or if promyelocytes are noted, a manual differential will be performed. Immature Gran Absolute 0.03 0.00 - 0.04 x10(3)/ L [facility] Blood 07/29/2023 1:25 AM EDT 07/29/2023 1:39 AM EDT Narrative Resulting Agency Comment Spec In Lab Caren Arnold MD HEMATOLOGY ORDERABLE S [facility] [place] [address] * (ABNORMAL) Hemogram (07/29/2023 1:25 AM EDT) White Blood Cell 7.9 4.0 - 9.5 x10(3)/[facility] Red Blood Cell 3.87(L) 4.58 - 5.54 x10(6)/[facility] Hemoglobin 11.0(L) 13.7 - 16.5 g/dL [facility] Hematocrit 33.3(L) 40.5 - 48.5 % [facility] Mean Cell Volume 86.0 82.9 - 93.1 fL [facility] Mean Cell Hemoglobin 28.4 27.5 - 32.1 pg [facility] Mean Cell Hemoglobin Concentration 33.0 32.0 - 35.7 g/dL [facility] Platelet 312 145 - 357 x10(3)/[facility] RDW Standard Deviation 42.9 36.0 - 45.0 [facility] RDW coefficient of variation 13.8 11.4 - 13.8 % [facility] Mean Platelet Volume 8.5 7.6 - 12.9 [facility] NRBC% auto 0.0 % [facility] NRBC Absolute 0.000 0.000 - 0.000 x10(3)/[facility] Blood 07/29/2023 1:25 AM EDT 07/29/2023 1:39 AM EDT Narrative Resulting Agency Comment Spec In Lab Caren Arnold MD HEMATOLOGY ORDERABLE S [facility] [place] [address] * APTT (07/29/2023 1:25 AM EDT) [facility] Signature Partial Thromboplastin Time 35 25 - 37 sec [facility] Comment: The PTT is NOT appropriate for heparin monitoring. Use the Anti-Xa level for heparin monitoring (HEP UFH) or LMWH monitoring (HEP LMW). A PTT less than 37 seconds generally indicates adequate hemostasis. Blood 07/29/2023 1:25 AM EDT 07/29/2023 1:39 AM EDT Narrative Resulting Agency Comment Spec In Lab Rolly Dunlap MD HEMATOLOGY ORDERABLE S Performing Organization Address [facility] de Phone Number [facility] [place] [address] * Prothrombin Time (07/29/2023 1:25 AM EDT) Prothrombin Time 12.0 9.4 - 12.5 sec [facility] International Normalization Ratio 1.1 [facility] Comment: An INR <2.0 indicates [...] MD HEMATOLOGY ORDERABLE S Performing Organization Address [facility] de Phone Number [facility] [place] [address] * (ABNORMAL) Basic Metabolic Panel (non-fasting) (07/29/2023 1:25 AM EDT) Glucose 123 65 - 199 mg/dL [facility] Comment:Diabetes: >=200 mg/d L plus symptoms Blood Urea Nitrogen 20 10 - 20 mg/dL [facility] Creatinine 1.30 0.80 - 1.50 mg/dL [facility] Sodium 140 135 - 145 mmol/L [facility] Potassium 4.6 3.5 - 5.0 mmol/L [facility] [...] 31 mmol/L [facility] Anion Gap 12 5 - 15 mmol/L [facility] Calcium 9.4 8.5 - 10.5 mg/dL [facility] Est Glomerular Filtration Rate 56(L) >=60 mL/min/1. 73 m?? [facility] [...] and symptoms in addition to eGFR. Blood 07/29/2023 1:25 AM EDT 07/29/2023 1:39 AM EDT Narrative Resulting Agency Comment Spec In Lab Rolly Dunlap MD CHEMISTRY ORDERABLES [facility] [place] [address] documented in this encounter Visit Diagnoses Diagnosis Brain tumor- Primary Neoplasm of unspecified nature of brain Brain tumor Neoplasm of unspecified nature of brain documented in this encounter Admitting Diagnoses Diagnosis Brain tumor Neoplasm of unspecified nature of brain documented in this encounter Administered Medications Inactive Administered Medications - up to 3 most recent administrations Medication Order MAR Action Action Date Dose Rate Site acetaminophen (Tylenol) (32.02 mg/mL) oral liquid 1,000 mg 1,000 mg, Oral, EVERY 6 HOURS PRN, Starting on Debbie 07/28/23 at 2346, Until 07/30/23 at 1250, Pain, mild pain (1-3), Maximum dose of acetaminophen is 4,000 mg from all sources in 24 hours. When ordered for pain, acetaminophen should be given even when other ordered pain medications are indicated., Routine acetaminophen (Tylenol) suppository 650 mg 650 mg, Rectal, EVERY 6 HOURS PRN, Starting on Debbie 07/28/23 at 2346, Until 07/30/23 at 1250, Pain, mild pain (1-3), Maximum dose of acetaminophen is 4,000 mg from all sources in 24 hours. When ordered for pain, acetaminophen should be given even when other ordered pain medications are indicated., Routine acetaminophen (Tylenol) tablet 975 mg 975 mg, Oral, EVERY 6 HOURS PRN, Starting on Debbie 07/28/23 at 2346, Until 07/30/23 at 1250, Pain, mild pain (1-3), Maximum dose of acetaminophen is 4,000 mg from all sources in 24 hours. When ordered for pain, acetaminophen should be given even when other ordered pain medications are indicated., Routine Given 07/29/2023 6:35 PM EDT 975 mg Given 07/29/2023 12:19 AM EDT 975 mg atorvastatin (Lipitor) tablet 20 mg 20 mg, Oral, EVERY EVENING, First dose on Tue07/29/23 at 1700, Until Discontinued, Routine Given 07/29/2023 5:47 PM EDT 20 mg dexAMETHasone (Decadron) injection 4 mg 4 mg, Intravenous, EVERY 12 HOURS SCHEDULED (2 times per day), First dose (after last modification) on 07/30/23 at 2100, Until Discontinued, Routine dexAMETHasone (Decadron) tablet 4 mg 4 mg, Oral, EVERY 6 HOURS, First dose on Tue07/29/23 at 0030, Until Discontinued, Routine Given 07/30/2023 5:33 AM EDT 4 mg Given 07/29/2023 11:37 PM EDT 4 mg Given 07/29/2023 5:47 PM EDT 4 mg dexAMETHasone (Decadron) tablet 4 mg 4 mg, Oral, EVERY 12 HOURS SCHEDULED (2 times per day), First dose (after last modification) on [facility] 07/30/23 at 2100, Until Discontinued, Routine iodixanoL (Visipaque) (320 mg/mL) injection solution 0-200 mL 0-200 mL, Intravenous, ONCE PRN, 1 dose, Starting on Tue07/29/23 at 1331, Until Tue07/29/23 at 1331, Per Protocol, Radiology Contrast, Routine Given 07/29/2023 1:31 PM EDT 89 mLs iohexoL (Omnipaque) radiology oral prep (50 mL of oral contrast) 240 mL, Oral, ONCE, 1 dose, On Tue07/29/23 at 1030, 8 ounce cup = 240 mL of contrast 3 hours before scan as tolerated. The patient should not eat food or drink any other liquids during the entire period in which they are drinking the contrast. Mix 1 bottle (50 mL) of Omnipaque 350 with 1 liter (1,000 mL) non-carbonated beverage (preferably water). Close cover and shake vigorously and then refrigerate, if desired. Dispose of any excess preparation in a sink. Properly dispose of container., Routine Given 07/29/2023 10:30 AM EDT 240 mLs iohexoL (Omnipaque) radiology oral prep (50 mL of oral contrast) 240 mL, Oral, ONCE, 1 dose, On Tue07/29/23 at 1115, 8 ounce cup = 240 mL of contrast 2 hours before scan as tolerated. The patient should not eat food or drink any other liquids during the entire period in which they are drinking the contrast. Mix 1 bottle (50 mL) of Omnipaque 350 with 1 liter (1,000 mL) non-carbonated beverage (preferably water). Close cover and shake vigorously and then refrigerate, if desired. Dispose of any excess preparation in a sink. Properly dispose of container., Routine Given 07/29/2023 11:15 AM EDT 240 mLs iohexoL (Omnipaque) radiology oral prep (50 mL of oral contrast) 240 mL, Oral, ONCE, 1 dose, On Tue07/29/23 at 1215, 8 ounce cup = 240 mL of contrast 1 hours before scan as tolerated. The patient should not eat food or drink any other liquids during the entire period in which they are drinking the contrast. Mix 1 bottle (50 mL) of Omnipaque 350 with 1 liter (1,000 mL) non-carbonated beverage (preferably water). Close cover and shake vigorously and then refrigerate, if desired. Dispose of any excess preparation in a sink. Properly dispose of container., Routine Given 07/29/2023 12:15 PM EDT 240 mLs iohexoL (Omnipaque) radiology oral prep (50 mL of oral contrast) 240 mL, Oral, ONCE, 1 dose, On Tue07/29/23 at 1245, 8 ounce cup = 240 mL of contrast 20 minutes before scan as tolerated. The patient should not eat food or drink any other liquids during the entire period in which they are drinking the contrast. Mix 1 bottle (50 mL) of Omnipaque 350 with 1 liter (1,000 mL) non-carbonated beverage (preferably water). Close cover and shake vigorously and then refrigerate, if desired. Dispose of any excess preparation in a sink. Properly dispose of container., Routine Given 07/29/2023 12:45 PM EDT 240 mLs levETIRAcetam (Keppra) (100 mg/mL) IV injection 500 mg 500 mg, Intravenous, 2 TIMES DAILY, First dose on Tue07/29/23 at 0900, Until Discontinued, Doses administered via IV push over 5 minutes. Administer Undiluted., Routine levETIRAcetam (Keppra) tablet 500 mg 500 mg, Oral, 2 TIMES DAILY, First dose on Tue07/29/23 at 0900, Until Discontinued, Routine Given 07/30/2023 8:23 AM EDT 500 mg Given 07/29/2023 8:20 PM EDT 500 mg Given 07/29/2023 8:58 AM EDT 500 mg levothyroxine (Synthroid) tablet 25 mcg 25 mcg, Oral, EVERY MORNING, First dose on Tue07/29/23 at 0600, Until Discontinued, Routine Given 07/30/2023 5:33 AM EDT 25 mcg Given 07/29/2023 5:42 AM EDT 25 mcg melatonin tablet 3 mg 3 mg, Oral, NIGHTLY PRN, Starting on Tue07/29/23 at 1602, Until 07/30/23 at 1250, Sleep, Routine Given 07/29/2023 8:20 PM EDT 3 mg ondansetron (pf) (Zofran) (2 mg/mL) injection 4 mg 4 mg, Intravenous, EVERY 8 HOURS PRN, Starting on Debbie 07/28/23 at 2346, Until 07/30/23 at 1250, Nausea, Vomiting, May repeat times one in 30 minutes if ineffective. If multiple antiemetics are ordered, use ondansetron first, prochlorperazine second, and metoclopramide third. ondansetron ODT (Zofran-ODT) disintegrating tablet 4 mg 4 mg, Oral, EVERY 8 HOURS PRN, Starting on Debbie 07/28/23 at 2346, Until 07/30/23 at 1250, Nausea, May repeat in 30 minutes if ineffective. If multiple antiemetics are ordered, use ondansetron first, prochlorperazine second, and metaclopramide third., Routine pantoprazole (Protonix) injection 40 mg 40 mg, Intravenous, DAILY, First dose on Tue07/29/23 at 0900, Until Discontinued, Reconstitute with 10 mL of normal saline to a concentration of 4 mg/mL and inject slowly over 2 minutes. Reconstitute with 10 mL of normal saline to a concentration of 4 mg/mL and inject slowly over 2 minutes., Routine pantoprazole EC (Protonix) tablet 40 mg 40 mg, Oral, DAILY, First dose on Tue07/29/23 at 0900, Until Discontinued, DO NOT CRUSH OR OPEN If unable to take PO, may give IV, Routine Given 07/30/2023 8:24 AM EDT 40 mg Given 07/29/2023 8:58 AM EDT 40 mg sodium chloride 0.9 % (flush) (BD PosiFlush Normal Saline 0.9) flush 5 mL 5 mL, Intravenous, 2 TIMES DAILY, First dose on Tue07/29/23 at 0045, Until Discontinued, Recovery (Recovery-Hospital Unit), Routine Given 07/30/2023 8:24 AM EDT 5 mLs Given 07/29/2023 8:21 PM EDT 5 mLs Given 07/29/2023 8:58 AM EDT 5 mLs sodium chloride 0.9 % (flush) (BD PosiFlush Normal Saline 0.9) flush 5-20 mL 5-20 mL, Intravenous, EVERY 1 MIN PRN, Starting on Debbie 07/28/23 at 2346, Until 07/30/23 at 1250, flush, Flush pertains to all indwelling lines. Flush per protocol found in the job aid using the link provided on this medication record., Recovery (Recovery-Hospital Unit), Routine Given 07/30/2023 5:34 AM EDT 5 mLs Given 07/29/2023 12:24 AM EDT 5 mLs documented in this encounter Active and Recently Administered Medications Times are shown in EDT. Scheduled Medication Order 07/28/2023 07/29/2023 07/30/2023 atorvastatin (Lipitor) tablet 20 mg 20 mg, Oral, EVERY EVENING, First dose on Tue07/29/23 at 1700, Until Discontinued, Routine 1747 (Given - Provider: Kirsten Bagley RN) dexAMETHasone (Decadron) injection 4 mg(Linked Group 1) 4 mg, Intravenous, EVERY 12 HOURS SCHEDULED (2 times per day), First dose (after last modification) on 07/30/23 at 2100, Until Discontinued, Routine dexAMETHasone (Decadron) tablet 4 mg (CANCELED) 4 mg, Oral, EVERY 6 HOURS, First dose on Tue07/29/23 at 0030, Until Discontinued, Routine 0023 (Given - Provider: Aisha Sparrow RN)0542 (Given - Provider: Aisha Sparrow RN)1211 (Given - Provider: Kirsten Bagley RN)1747 (Given - Provider: Kirsten Bagley RN)2337 (Given - Provider: Aisha Sparrow RN) 0533 (Given - Provider: Aisha Sparrow RN) dexAMETHasone (Decadron) tablet 4 mg(Linked Group 1) 4 mg, Oral, EVERY 12 HOURS SCHEDULED (2 times per day), First dose (after last modification) on 07/30/23 at 2100, Until Discontinued, Routine iohexoL (Omnipaque) radiology oral prep (50 mL of oral contrast) (COMPLETED)(Linked Group 2) 240 mL, Oral, ONCE, 1 dose, On Tue07/29/23 at 1030, 8 ounce cup = 240 mL of contrast 3 hours before scan as tolerated. The patient should not eat food or drink any other liquids during the entire period in which they are drinking the contrast. Mix 1 bottle (50 mL) of Omnipaque 350 with 1 liter (1,000 mL) non-carbonated beverage (preferably water). Close cover and shake vigorously and then refrigerate, if desired. Dispose of any excess preparation in a sink. Properly dispose of container., Routine 1030 (Given - Provider: Kirsten Bagley RN) iohexoL (Omnipaque) radiology oral prep (50 mL of oral contrast) (COMPLETED)(Linked Group 2) 240 mL, Oral, ONCE, 1 dose, On Tue07/29/23 at 1115, 8 ounce cup = 240 mL of contrast 2 hours before scan as tolerated. The patient should not eat food or drink any other liquids during the entire period in which they are drinking the contrast. Mix 1 bottle (50 mL) of Omnipaque 350 with 1 liter (1,000 mL) non-carbonated beverage (preferably water). Close cover and shake vigorously and then refrigerate, if desired. Dispose of any excess preparation in a sink. Properly dispose of container., Routine 1115 (Given - Provider: Kirsten Bagley RN) iohexoL (Omnipaque) radiology oral prep (50 mL of oral contrast) (COMPLETED)(Linked Group 2) 240 mL, Oral, ONCE, 1 dose, On Tue07/29/23 at 1215, 8 ounce cup = 240 mL of contrast 1 hours before scan as tolerated. The patient should not eat food or drink any other liquids during the entire period in which they are drinking the contrast. Mix 1 bottle (50 mL) of Omnipaque 350 with 1 liter (1,000 mL) non-carbonated beverage (preferably water). Close cover and shake vigorously and then refrigerate, if desired. Dispose of any excess preparation in a sink. Properly dispose of container., Routine 1215 (Given - Provider: Kirsten Bagley RN) iohexoL (Omnipaque) radiology oral prep (50 mL of oral contrast) (COMPLETED)(Linked Group 2) 240 mL, Oral, ONCE, 1 dose, On Tue07/29/23 at 1245, 8 ounce cup = 240 mL of contrast 20 minutes before scan as tolerated. The patient should not eat food or drink any other liquids during the entire period in which they are drinking the contrast. Mix 1 bottle (50 mL) of Omnipaque 350 with 1 liter (1,000 mL) non-carbonated beverage (preferably water). Close cover and shake vigorously and then refrigerate, if desired. Dispose of any excess preparation in a sink. Properly dispose of container., Routine 1245 (Given - Provider: Kirsten Bagley RN) levETIRAcetam (Keppra) (100 mg/mL) IV injection 500 mg(Linked Group 3) 500 mg, Intravenous, 2 TIMES DAILY, First dose on Tue07/29/23 at 0900, Until Discontinued, Doses administered via IV push over 5 minutes. Administer Undiluted., Routine 0858 (See Alternative - Provider: Kirsten Bagley RN)2019 (See Alternative - Provider: Aisha Sparrow RN) 0823 (See Alternative - Provider: Maynor Jeffries RN) levETIRAcetam (Keppra) tablet 500 mg(Linked Group 3) 500 mg, Oral, 2 TIMES DAILY, First dose on Tue07/29/23 at 0900, Until Discontinued, Routine 0858 (Given - Provider: Kirsten Bagley RN)2019 (Given - Provider: Aisha Sparrow RN) 08 (Given - Provider: Maynor Jeffries RN) levothyroxine (Synthroid) tablet 25 mcg 25 mcg, Oral, EVERY MORNING, First dose on Tue07/29/23 at 0600, Until Discontinued, Routine 0542 (Given - Provider: Aisha Sparrow RN) 0533 (Given - Provider: Aisha Sparrow RN) pantoprazole (Protonix) injection 40 mg(Linked Group 4) 40 mg, Intravenous, DAILY, First dose on Tue07/29/23 at 0900, Until Discontinued, Reconstitute with 10 mL of normal saline to a concentration of 4 mg/mL and inject slowly over 2 minutes. Reconstitute with 10 mL of normal saline to a concentration of 4 mg/mL and inject slowly over 2 minutes., Routine 0858 (See Alternative - Provider: Kirsten Bagley RN) 0824 (See Alternative - Provider: Maynor Jeffries RN) pantoprazole EC (Protonix) tablet 40 mg(Linked Group 4) 40 mg, Oral, DAILY, First dose on Tue07/29/23 at 0900, Until Discontinued, DO NOT CRUSH OR OPEN If unable to take PO, may give IV, Routine 08 (Given - Provider: Kirsten Bagley RN) 823 (Given - Provider: Maynor Jeffries, OSCAR) sodium chloride 0.9 % (flush) (BD PosiFlush Normal Saline 0.9) flush 5 mL 5 mL, Intravenous, 2 TIMES DAILY, First dose on Tue07/29/23 at 0045, Until Discontinued, Recovery (Recovery-Hospital Unit), Routine 002 (Given - Provider: Aisha Sparrow RN)08 (Given - Provider: Kirsten Bagley RN)2020 (Given - Provider: Aisha Sparrow RN) 08 (Given - Provider: Maynor Jeffries, [employer]SC[employer]) PRN Medication Order 07/28/2023 07/29/2023 07/30/2023 acetaminophen (Tylenol) (32.02 mg/mL) oral liquid 1,000 mg(Linked Group 5) 1,000 mg, Oral, EVERY 6 HOURS PRN, Starting on Debbie 07/28/23 at 2346, Until 07/30/23 at 1250, Pain, mild pain (1-3), Maximum dose of acetaminophen is 4,000 mg from all sources in 24 hours. When ordered for pain, acetaminophen should be given even when other ordered pain medications are indicated., Routine 18 (See Alternative - Provider: Aisha Sparrow RN)1834 (See Alternative - Provider: Kirsten Bagley, [employer]SC[employer]) acetaminophen (Tylenol) suppository 650 mg(Linked Group 5) 650 mg, Rectal, EVERY 6 HOURS PRN, Starting on Debbie 07/28/23 at 2346, Until 07/30/23 at 1250, Pain, mild pain (1-3), Maximum dose of acetaminophen is 4,000 mg from all sources in 24 hours. When ordered for pain, acetaminophen should be given even when other ordered pain medications are indicated., Routine 18 (See Alternative - Provider: Aisha Sparrow RN)1834 (See Alternative - Provider: Kirsten Bagley, [employer]) acetaminophen (Tylenol) tablet 975 mg(Linked Group 5) 975 mg, Oral, EVERY 6 HOURS PRN, Starting on Debbie 07/28/23 at 2346, Until 07/30/23 at 1250, Pain, mild pain (1-3), Maximum dose of acetaminophen is 4,000 mg from all sources in 24 hours. When ordered for pain, acetaminophen should be given even when other ordered pain medications are indicated., Routine 0019 (Given - Provider: Aisha Sparrow RN)183 (Given - Provider: Kirsten Bagley RN) hydrALAZINE (Apresoline) (20 mg/mL) injection 10 mg 10 mg, Intravenous, EVERY 2 HOURS PRN, Starting on Debbie 07/28/23 at 2346, Until 07/30/23 at 1250, High Blood Pressure, For systolic blood pressure (SBP) greater than 160 mmHg. May repeat once in 15 minutes if blood pressure remains greater than 160 mmHg. Use if labetaloL ineffective after 2 doses, Routine iodixanoL (Visipaque) (320 mg/mL) injection solution 0-200 mL (COMPLETED) 0-200 mL, Intravenous, ONCE PRN, 1 dose, Starting on Tue07/29/23 at 1331, Until Tue07/29/23 at 1331, Per Protocol, Radiology Contrast, Routine 133 (Given - Provider: Ernie See) labetaloL (Normodyne) (5 mg/mL) injection solution 20 mg 20 mg, Intravenous, EVERY 2 HOURS PRN, Starting on Debbie 07/28/23 at 2346, Until 07/30/23 at 1250, High Blood Pressure, Use for systolic blood pressure (SBP) greater than 160 mmHg. May repeat once in 15 minutes if blood pressure remains greater than 160 mmHg., Routine lidocaine (Xylocaine) 1% (10 mg/mL) injection 3 mg 3 mg (0.3 mL), Subcutaneous, ONCE PRN, 1 dose, Starting on Debbie 07/28/23 at 2346, Until 07/30/23 at 1250, for discomfort with PIV insertion, Recovery (Recovery-Hospital Unit), Routine melatonin tablet 3 mg 3 mg, Oral, NIGHTLY PRN, Starting on Tue07/29/23 at 1602, Until 07/30/23 at 1250, Sleep, Routine 2019 (Given - Provider: Aisha Sparrow RN) ondansetron (pf) (Zofran) (2 mg/mL) injection 4 mg(Linked Group 6) 4 mg, Intravenous, EVERY 8 HOURS PRN, Starting on Debbie 07/28/23 at 2346, Until 07/30/23 at 1250, Nausea, Vomiting, May repeat times one in 30 minutes if ineffective. If multiple antiemetics are ordered, use ondansetron first, prochlorperazine second, and metoclopramide third. ondansetron ODT (Zofran-ODT) disintegrating tablet 4 mg(Linked Group 6) 4 mg, Oral, EVERY 8 HOURS PRN, Starting on Debbie 07/28/23 at 2346, Until 07/30/23 at 1250, Nausea, May repeat in 30 minutes if ineffective. If multiple antiemetics are ordered, use ondansetron first, prochlorperazine second, and metaclopramide third., Routine polyethylene glycoL (Miralax) packet 17 g 17 g, Oral, DAILY PRN, Starting on Debbie 07/28/23 at 2346, Until 07/30/23 at 1250, Constipation, Administer if no bowel movement within 48 hours to achieve: (1) One bowel movement at least every 48 hours, AND (2) without straining. If multiple PRN bowel medications ordered, start with polyethylene glycoL, then lactulose, then oral bisacodyL, then bisacodyL suppository, then magnesium citrate, then tap water enema. Multiple medications may be given concomitantly for constipation., Routine sodium chloride 0.9 % (flush) (BD PosiFlush Normal Saline 0.9) flush 5-20 mL 5-20 mL, Intravenous, EVERY 1 MIN PRN, Starting on Debbie 07/28/23 at 2346, Until 07/30/23 at 1250, flush, Flush pertains to all indwelling lines. Flush per protocol found in the job aid using the link provided on this medication record., Recovery (Recovery-Hospital Unit), Routine 0024 (Given - Provider: Aisha Sparrow RN) 0534 (Given - Provider: Aisha Sparrow RN) Linked Groups Order Group 1: dexAMETHasone (Decadron) injection 4 mgJump to med 4 mg, Intravenous, EVERY 12 HOURS SCHEDULED (2 times per day), First dose (after last modification) on 07/30/23 at 2100, Until Discontinued, Routine Or dexAMETHasone (Decadron) tablet 4 mgJump to med 4 mg, Oral, EVERY 12 HOURS SCHEDULED (2 times per day), First dose (after last modification) on 07/30/23 at 2100, Until Discontinued, Routine Group 2: iohexoL (Omnipaque) radiology oral prep (50 mL of oral contrast) (COMPLETED)Jump to med 240 mL, Oral, ONCE, 1 dose, On Tue07/29/23 at 1030, 8 ounce cup = 240 mL of contrast 3 hours before scan as tolerated. The patient should not eat food or drink any other liquids during the entire period in which they are drinking the contrast. Mix 1 bottle (50 mL) of Omnipaque 350 with 1 liter (1,000 mL) non-carbonated beverage (preferably water). Close cover and shake vigorously and then refrigerate, if desired. Dispose of any excess preparation in a sink. Properly dispose of container., Routine Followed by iohexoL (Omnipaque) radiology oral prep (50 mL of oral contrast) (COMPLETED)Jump to med 240 mL, Oral, ONCE, 1 dose, On Tue07/29/23 at 1115, 8 ounce cup = 240 mL of contrast 2 hours before scan as tolerated. The patient should not eat food or drink any other liquids during the entire period in which they are drinking the contrast. Mix 1 bottle (50 mL) of Omnipaque 350 with 1 liter (1,000 mL) non-carbonated beverage (preferably water). Close cover and shake vigorously and then refrigerate, if desired. Dispose of any excess preparation in a sink. Properly dispose of container., Routine Followed by iohexoL (Omnipaque) radiology oral prep (50 mL of oral contrast) (COMPLETED)Jump to med 240 mL, Oral, ONCE, 1 dose, On Tue07/29/23 at 1215, 8 ounce cup = 240 mL of contrast 1 hours before scan as tolerated. The patient should not eat food or drink any other liquids during the entire period in which they are drinking the contrast. Mix 1 bottle (50 mL) of Omnipaque 350 with 1 liter (1,000 mL) non-carbonated beverage (preferably water). Close cover and shake vigorously and then refrigerate, if desired. Dispose of any excess preparation in a sink. Properly dispose of container., Routine Followed by iohexoL (Omnipaque) radiology oral prep (50 mL of oral contrast) (COMPLETED)Jump to med 240 mL, Oral, ONCE, 1 dose, On Tue07/29/23 at 1245, 8 ounce cup = 240 mL of contrast 20 minutes before scan as tolerated. The patient should not eat food or drink any other liquids during the entire period in which they are drinking the contrast. Mix 1 bottle (50 mL) of Omnipaque 350 with 1 liter (1,000 mL) non-carbonated beverage (preferably water). Close cover and shake vigorously and then refrigerate, if desired. Dispose of any excess preparation in a sink. Properly dispose of container., Routine Group 3: levETIRAcetam (Keppra) tablet 500 mgJump to med 500 mg, Oral, 2 TIMES DAILY, First dose on Tue07/29/23 at 0900, Until Discontinued, Routine Or levETIRAcetam (Keppra) (100 mg/mL) IV injection 500 mgJump to med 500 mg, Intravenous, 2 TIMES DAILY, First dose on Tue07/29/23 at 0900, Until Discontinued, Doses administered via IV push over 5 minutes. Administer Undiluted., Routine Group 4: pantoprazole EC (Protonix) tablet 40 mgJump to med 40 mg, Oral, DAILY, First dose on Tue07/29/23 at 0900, Until Discontinued, DO NOT CRUSH OR OPEN If unable to take PO, may give IV, Routine Or pantoprazole (Protonix) injection 40 mgJump to med 40 mg, Intravenous, DAILY, First dose on Tue07/29/23 at 0900, Until Discontinued, Reconstitute with 10 mL of normal saline to a concentration of 4 mg/mL and inject slowly over 2 minutes. Reconstitute with 10 mL of normal saline to a concentration of 4 mg/mL and inject slowly over 2 minutes., Routine Group 5: acetaminophen (Tylenol) (32.02 mg/mL) oral liquid 1,000 mgJump to med 1,000 mg, Oral, EVERY 6 HOURS PRN, Starting on Debbie 07/28/23 at 2346, Until 07/30/23 at 1250, Pain, mild pain (1-3), Maximum dose of acetaminophen is 4,000 mg from all sources in 24 hours. When ordered for pain, acetaminophen should be given even when other ordered pain medications are indicated., Routine Or acetaminophen (Tylenol) tablet 975 mgJump to med 975 mg, Oral, EVERY 6 HOURS PRN, Starting on Debbie 5/24 at 2346, Until Sat 24 at 1250, Pain, mild pain (1-3), Maximum dose of acetaminophen is 4,000 mg from all sources in 24 hours. When ordered for pain, acetaminophen should be given even when other ordered pain medications are indicated., Routine Or acetaminophen (Tylenol) suppository 650 mgJump to med 650 mg, Rectal, EVERY 6 HOURS PRN, Starting on Debbie 24 at 2346, Until 07/30/23 at 1250, Pain, mild pain (1-3), Maximum dose of acetaminophen is 4,000 mg from all sources in 24 hours. When ordered for pain, acetaminophen should be given even when other ordered pain medications are indicated., Routine Group 6: ondansetron ODT (Zofran-ODT) disintegrating tablet 4 mgJump to med 4 mg, Oral, EVERY 8 HOURS PRN, Starting on Debbie 524 at 2346, Until 07/30/23 at 1250, Nausea, May repeat in 30 minutes if ineffective. If multiple antiemetics are ordered, use ondansetron first, prochlorperazine second, and metaclopramide third., Routine Or ondansetron (pf) (Zofran) (2 mg/mL) injection 4 mgJump to med 4 mg, Intravenous, EVERY 8 HOURS PRN, Starting on Debbie 524 at 2346, Until 07/30/23 at 1250, Nausea, Vomiting, May repeat times one in 30 minutes if ineffective. If multiple antiemetics are ordered, use ondansetron first, prochlorperazine second, and metoclopramide third. documented in this encounter Care Teams Quality Management Coordinator Relationship Specialty Start Date End Date Molina Herr MD [facility] [address] [place] [id number] PCP - General 01/27/10 documented as of this encounter
--- OUTSIDE RECORDS SUMMARY | 2023-10-17 15:08 | XMS_ITS | Encounter Summary ---
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 PRO MICROSURG TECHNIQUES, REQ OPER MICROSCOPE PRO STEREOTACTIC CPTR ASSTD PX CRANIAL, INTRADURAL @CRANI, FOR TUMOR, SUPRATENTORIAL, NOT MENINGIOMA (WRVU 30.83) MICROSCOPE USE (WRVU 3.46) STEREOTACTIC COMPUTER-ASSTD NAVIGATIONAL CRANIAL INTRADURAL (WRVU 3.75) MODIFIER,STEALTH 2,RAYSHAWNVO Rolly Dunlap MD [facility] [address] [place] [address] [facility] Referral ID Status Reason Start Date Expiration Date Visits Re quested Visits Authorized [id number] 1 1 Encounter Details Date Type Department Care Team (Late st Contact Info) Description 08/03/2023 10:50 AM EDT Office [place] [phone] Clinic, Dr Fuchs Team None Status post total right knee replacement Social History Tobacco Use Types Packs/Day Years [...] from your doctor or pharmacy? Often 08/10/2023 [facility] Utilities Answer Date Recorded In [...] living in a long-term (including now)? No 08/10/2023 [facility] IPV Inpatient [...] - Inhaled Oxygen Concentration - - Weight 78 kg (172 lb) 08/03/2023 10:39 AM EDT ve rbal Height 172.7 cm (5' 8) 08/03/2023 10:39 AM EDT verbal Body Mass Index 26.15 08/03/2023 10:39 AM EDT documented in this encounter Progress Notes * Wilda, MURPHY Foss - 08/03/2023 10:50 AM EDT Arthroplasty/Orthopaedic History: R TKA, 06/21/23, Shila HPI: Perfecto Polk is a very pleasant 82 y.o. year-old male and is now 5 weeks post right total knee replacement. The patient has been doing well from a knee perspective. Pain controlled with OTC analgesics. He was noted to have difficulty finding words postop. We tapered opiates and monitored symptoms to see if this was related to medications or anesthesia. These difficulties persisted, so he saw his PCP who ordered MRI. 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 He is scheduled for surgery later this week with neuro. No fevers, chills, nausea, vomiting, or symptoms of infection. Perfecto has been ambulating with no assistive device and working with PT. He is not taking narcotic pain medicine. ROS: Denies: fever, chills, night sweats, nausea, or vomiting Ht 172.7 cm (5' 8) Comment: verbal Wt 78 kg (172 lb) Comment: verbal BMI 26.15 kg/m?? Physical Exam: Well-appearing male in no acute distress. Alert and Oriented x 3 and answers all questions appropriately. The incision is well healed, with no signs of infection. Post Op Right Knee Exam: Knee ROM: Extension:0 Flexion: 115 Alignment: 0-4 degrees Neutral Stability: A/P Translation [...] subsidence, loosening, or periprosthetic complication. Questionnaire Responses: 07/27/2023 [facility] Surgical Postop Visit PROMIS-10 General Health Good PROMIS-10 Quality of Life Good PROMIS-10 Physical Health Good PROMIS-10 Mental Health Poor PROMIS-10 Social Activity Good PROMIS-10 Everyday Activities Mostly PROMIS-10 Pain 3 PROMIS-10 Fatigue Mild PROMIS-10 Social Roles Good PROMIS-10 Anxious or Depressed Often PROMIS PHYSICAL HEALTH SCORE 47.7 PROMIS MENTAL HEALTH SCORE 36.3 KOOS JR Scores 63.78 Problems with surgical incision/wound after surgery No Gone to ER since knee surgery No Admitted to hospital since recent ortho surgery No Additional surgery on same body part No TKA Grade 7 Pain in other KNEE Mild Back pain at this moment Very mild Satisfaction with Treatment Somewhat dissatisfied Choose Same Treatment Again Probably yes 07/27/2023 Orthope[facility] Response KOOS JR Scores 63.78 07/27/2023 Spine [facility] Response KOOS JR Scores 63.78 ASSESSMENT/PLAN: Mr. Polk is a 82 y.o. year old male status post right total knee replacement. Doing well postoperatively. Continue weightbearing as tolerated and working on range of motion. We willsee him back in 6 weeks for repeat examination. We are happy to coordinate this appointment with neuro or skip this appointment pending outcome of his surgery Tuesday. No X-rays will be needed at thattime. Patient may return to normal activities as his [...] AM EDT Office Visit Palliative Medicine at [place] [address] Elly Alston MD [facility] DR HOSPICE [place] [address] 10/27/2023 1:00 PM EDT Office Visit Speech Therapy at [place] [address] Debra Franco, BRAND STRATEGIST 11/03/2023 2:00 PM EDT Office Visit Speech Therapy at [place] [address] Debra Franco, BRAND STRATEGIST 11/08/2023 2:30 PM EDT Appointment MRI at [place] [address] Navjot Grider MD [facility] [place] [address] 11/09/2023 1:45 PM EDT Office Visit Hematology and Oncology at [place] [address] Isabell Jacob MD [facility] [address] 11/11/2023 10:30 AM EDT Office Visit Radiation Oncology at [place] [address] Nicki Sharpe MD [facility] [place] [address] 11/15/2023 10:00 AM EDT Office Visit Speech Therapy at [place] [address] Debra Franco, BRAND STRATEGIST 11/16/2023 9:00 AM EDT Office Visit Hematology [place] [address] Bisi Nam 11/22/2023 10:00 AM EDT Office [place] [address] Debra Franco, BRAND STRATEGIST 11/30/2023 9:00 AM EDT Office Visit Hematology [place] [address] Bisi Nam 12/14/2023 9:00 AM EDT Office Visit Hematology [place] [address] Bisi Nam 12/28/2023 9:00 AM EDT Office Visit Hematology [place] [address] Bisi Nam documented as of this encounter Visit Diagnoses Diagnosis Status post total right knee replacement documented in this encounter Care Teams Assistant County Attorney Relationship Specialty Start Date End Date Molina Herr MD [facility] [address] [place] [address] PCP - General 01/27/10 documented as of this encounter
--- OUTSIDE RECORDS SUMMARY | 2023-10-17 15:08 | XMS_ITS | Encounter Summary ---
Author Organization [facility] [place] [address] Care Team Providers Care Blade Boner Name Role Phone Molina Herr MD Primary Care Provider [phone] Encounter Details Date Type Department Care Team (Latest Contact Info) Description 08/03/2023 Travel Social History Tobacco Use Types Packs/Day Years Used Date Smoking Tobacco: Never Smokeless Tobacco: Never Alcohol Use Standard Drinks/Week Comments Not Currently 0 (1 standard drink = 0.6 oz pur e alcohol) nothing in a few months [facility] Utilities Answer Date Recorded In [...] living in a detention (including now)? No 07/29/2023 IPV Inpatient Questions [...] AM EDT Office [place] [address] Elly Alston MD [facility] HOSPICE AND [place] [address] 10/27/2023 1:00 PM EDT Office [place] [address] Debra Franco, PROFILING MACHINE SET UP OPERATOR TOOL 11/03/2023 2:00 PM EDT Office [place] [address] Debra Franco, PROFILING MACHINE SET UP OPERATOR TOOL 11/08/2023 2:30 [place] [address] Navjot Grider MD [facility] [place] [address] 11/09/2023 1:45 PM EDT Office Visit Hematology and Oncology at [place] [address] Isabell Jacob MD [facility] [place] [place] [address] 11/11/2023 10:30 AM EDT Office Visit Radiation Oncology at [place] [address] Nicki Sharpe MD [facility] [place] [address] 11/15/2023 10:00 AM EDT Office Visit Speech Therapy at [place] [address] Debra Franco, PROFILING MACHINE SET UP OPERATOR TOOL 11/16/2023 9:00 AM EDT Office Visit Hematology and Oncology at [place] [phone] Bisi Nam 11/22/2023 10:00 AM EDT Office Visit Speech Therapy at [place] [phone] Debra Franco, PROFILING MACHINE SET UP OPERATOR TOOL 11/30/2023 9:00 AM EDT Office Visit Hematology and Oncology at [place] [phone] Bisi Nam 12/14/2023 9:00 AM EDT Office Visit Hematology [place] [address] Bisi Nam 12/28/2023 9:00 AM EDT Office Visit Hematology and Oncology at [place] [phone] Bisi Nam documented as of this encounter Visit Diagnoses Not on filedocumented in this encounter Care Teams Blade Boner Relationship Specialty Start Date End Date Molina Herr MD [facility] [address] [place] [address] PCP - General 01/27/10 documented as of this encounter
--- OUTSIDE RECORDS SUMMARY | 2023-10-17 15:08 | XMS_ITS | Encounter Summary ---
[place] [address] Care Team Providers Care Training Technician Name Role Phone Molina Herr MD Primary Care Provider [phone] Encounter Details Date Type Department Care Team (Late st Contact Info) Description 08/03/2023 [place]phone [place] [phone] Jade Lake, RN Social History Tobacco Use Types Packs/Day Years Used Date Smoking Tobacco: Never Smokeless Tobacco: Never Alcohol Use Standard Drinks/Week Comments Not Currently 0 (1 standard drink = 0.6 oz pur e alcohol) nothing in a few months [facility] Utilities Answer Date Recorded In the past 12 months has e [employer], gas, oil, or water [employer] threatened to shut off services in [...] living in a residential (including now)? No 07/29/2023 IPV Inpatient Questions [...] encounter Miscellaneous Notes * Telephone Encounter - Jade Lake RN - 08/03/2023 8:44 AM EDT Spoke to June who explained that Maldonado broke a tooth and is wondering if its ok to have that fixedtoday. Because of his knee replacement, he's required to take ABX before dental procedures. She asked if it was ok to have keflex today before the procedure. I said it was ok to get the tooth fixed today and take the keflex. I also told her to let the anesthesiologist tomorrow that he took kelfex today. documented in this encounter Plan of Treatment Upcoming Encounters Date Type Department Care Team (Late st Contact Info) Description 10/27/2023 11:15 AM EDT Office Visit [place] [address] Elly Alston MD [facility] DR HOSPICE [place] [address] 10/27/2023 1:00 PM EDT Office Visit Speech Therapy at [place] [address] Debra Franco, CHANNEL LIP STIFFENER INSOLES 11/03/2023 2:00 PM EDT Office Visit Speech Therapy at [place] [phone] Debra Franco, CHANNEL LIP STIFFENER INSOLES 11/08/2023 2:30 PM EDT Appointment MRI at [address] Navjot Grider MD [facility] DR [place] [address] 11/09/2023 1:45 PM EDT Office Visit Hematology and Oncology at [place] [address] Isabell Jacob MD [facility] [place] [address] 11/11/2023 10:30 AM EDT Office Visit Radiation Oncology at [address] Nicki Sharpe MD [facility] [place] [address] 11/15/2023 10:00 AM EDT Office Visit Speech Therapy at [place] [phone] Debra Franco, CHANNEL LIP STIFFENER INSOLES 11/16/2023 9:00 AM EDT Office Visit Hematology and Oncology at [place] [phone] Bisi Nam 11/22/2023 10:00 AM EDT Office Visit Speech Therapy at [place] [phone] Debra Franco, CHANNEL LIP STIFFENER INSOLES 11/30/2023 9:00 AM EDT Office Visit Hematology [place] [address] Bisi Nam 12/14/2023 9:00 AM EDT Office Visit Hematology [place] [address] Bisi Nam 12/28/2023 9:00 AM EDT Office Visit Hematology [place] [address] Bisi Nam documented as of this encounter Visit Diagnoses Not on filedocumented in this encounter Care Teams Training Technician Relationship Specialty Start Date End Date Molina Herr MD [facility] [address] [place] [address] PCP - General 01/27/10 documented as of this encounter
--- OUTSIDE RECORDS SUMMARY | 2023-10-17 15:08 | XMS_ITS | Encounter Summary ---
[place] [address] Care Team Providers Care Operations Support Representative Name Role Phone Molina Herr MD Primary Care Provider [phone] Encounter Details Date Type Department Care Team (Late st Contact Info) Description 08/02/2023 Telephone [place] [phone] Debra Ospina, RN Social History Tobacco Use Types Packs/Day Years Used Date Smoking Tobacco: Never Smokeless Tobacco: Never Alcohol Use Standard Drinks/Week Comments Not Currently 0 (1 standard drink = 0.6 oz pur e alcohol) nothing in a few months [facility] Utilities Answer Date Recorded In the past 12 months has e [employer], gas, oil, or water [employer] threatened to shut off services in your [...] in a senior living (including now)? No 07/29/2023 DH IPV Inpatient [...] encounter Miscellaneous Notes * Telephone Encounter - Kirstin Costello RN - 08/02/2023 1:22 PM EDT Returned call to patient, relayed message from Dr. Doll and Tonya ARRINGTON, advised that he can cancel MRI for 08/02, patient requested that we cancel it for him as he is driving. Call placed to radiology outpatient scheduling dept * Telephone Encounter - Debra Ospina RN - 08/02/2023 10:32 AM EDT Copied from CRM #[id number]. Topic: Specialty Dept CRMs - Generic Call >> August 02, 2023 8:19 AM Milady Torres wrote: Specialist: Neurosurgery Relationship (if other than patient-full name): June - Partner Reason for Call: June states that the patient had a MRI when he was at the hospital on 07/30/23. June states the patient still has one scheduled for tomorrow evening 08/02, and June wantedto be sure that is ok to cancel or if Dr. Dunlap would like another MRI. June asked for a phone call as soon as possible so the appointment doesn't show as a no show. Per chart review pt had an MRI Brain wo contrast 07/[address] Dun[facility] documented in this encounter Plan of Treatment Upcoming Encounters Date Type Department Care Team (Late st Contact Info) Description 10/27/2023 11:15 AM EDT Office Visit Palliative Medicine at [place] [address] [facility] HOSPICE [place] [address] 10/27/2023 1:00 PM EDT Office Visit Speech Therapy at [address] Debra Franco, EMD SPECIAL EDUCATION TEACHER 11/03/2023 2:00 PM EDT Office Visit Speech Therapy at [place] [phone] Debra Franco, EMD SPECIAL EDUCATION TEACHER 11/08/2023 2:30 PM EDT Appointment MRI at [place] [address] [facility] [place] [address] 11/09/2023 1:45 PM EDT Office Visit Hematology and Oncology at [place] [phone] [facility] [place] [address] 11/11/2023 10:30 AM EDT Office Visit Radiation Oncology at [place] [phone] [facility] [place] [address] 11/15/2023 10:00 AM EDT Office [place] [address] Debra Franco, EMD SPECIAL EDUCATION TEACHER 11/16/2023 9:00 AM EDT Office Visit Hematology [place] [address] Bisi Nam 11/22/2023 10:00 AM EDT Office [place] [address] Debra Franco, EMD SPECIAL EDUCATION TEACHER 11/30/2023 9:00 AM EDT Office Visit Hematology [place] [address] Bisi Nam 12/14/2023 9:00 AM EDT Office Visit Hematology [place] [address] Bisi Nam 12/28/2023 9:00 AM EDT Office Visit Hematology [place] [address] Bisi Nam documented as of this encounter Visit Diagnoses Not on filedocumented in this encounter Care Teams Operations Support Representative Relationship Specialty Start Date End Date Molina Herr MD [facility] [address] [place] [address] PCP - General 01/27/10 documented as of this encounter
--- OUTSIDE RECORDS SUMMARY | 2023-10-17 15:08 | XMS_ITS | Encounter Summary ---
Author Organization [facility] [place] [address] Care Team Providers Care Lightning Rod Erector Name Role Phone Molina Herr MD Primary Care Provider Reason for Referral * Diagnostic Test (STAT) - Closed Specialty Diagnoses / Procedures Referred By Contac t Referred To Contact Radiology Diagnoses Delirium Procedures MRI Brain wwo Contrast (Generic) Molina Herr MD [facility] [address] [place] [address] [facility] [address] [place] [address] Referral ID Status Reason Start Date Expiration Date V isits Requested Visits Authorized [id number] Closed Specialty Service Requested 07/25/2023 01/24/2025 1 1 Reason for Visit * Diagnostic Test (STAT) - Closed Specialty Diagnoses / Procedures Referred By Contac t Referred To Contact Radiology Diagnoses Delirium Procedures MRI Brain wwo Contrast (Generic) Molina Herr MD [address] [address] [place] [address] [facility] Rad [facility] [address] [place] [address] Referral ID Status Reason Start Date Expiration Date V isits Requested Visits Authorized [id number] Closed Specialty Service Requested 07/25/2023 01/24/2025 1 1 Encounter Details Date Type Department Care Team (Latest Contact Info) Description 07/28/2023 5:34 PM EDT - 07/28/2023 6:53 PM EDT Hospital Encounter Radiology MRI [place] [facility] [place] [address] Molina Herr MD [facility] [address] [place] [address] Delirium Discharge Disposition: Home Social History Tobacco Use Types Packs/Day Years Used Date Smoking Tobacco: Never Smokeless Tobacco: Never Alcohol Use Standard Drinks/Week Comments Not Currently 0 (1 standard drink = 0.6 oz pur e alcohol) nothing in a few months [facility] Utilities Answer Date Recorded In the past 12 months has th e [employer], gas, oil, or water [employer] threatened to shut off services in your [...] in a group home (including now)? No 07/29/2023 DH IPV Inpatient [...] 20 mg by mouth daily. 4 03/08/2014 yqyysvyfgeplq-IF-hin c (SOURCE CF) 200-10 mcg-mg Chew Take [...] AM EDT Office Visit Palliative Medicine at [place] [phone] Elly Alston MD [facility] H[facility] AND [place] [address] 10/27/2023 1:00 PM EDT Office Visit Speech Therapy at [place] [phone] Debra Franco, SQL SERVER BI DEVELOPER 11/03/2023 2:00 PM EDT Office Visit Speech Therapy at [place] [phone] Debra Franco, SQL SERVER BI DEVELOPER 11/08/2023 2:30 PM EDT Appointment MRI at [place] [phone] Navjot Grider MD [facility] [place] [address] 11/09/2023 1:45 PM EDT Office Visit Hematology and Oncology at [place] [phone] Isabell Jacob MD [facility] [place] [address] 11/11/2023 10:30 AM EDT Office Visit [place] [address] Nicki Sharpe MD [facility] [place] [address] 11/15/2023 10:00 AM EDT Office [place] [address] Debra Franco, SQL SERVER BI DEVELOPER 11/16/2023 9:00 AM EDT Office Visit Hematology [place] [address] Bisi Nam 11/22/2023 10:00 AM EDT Office [place] [address] Debra Franco SQL SERVER BI DEVELOPER 11/30/2023 9:00 AM EDT Office Visit Hematology [place] [address] Bisi Nam 12/14/2023 9:00 AM EDT Office Visit Hematology [place] [address] Bisi Nam 12/28/2023 9:00 AM EDT Office Visit Hematology [place] [address] Bisi Nam documented as of this encounter Procedures Procedure Name Priority Date/Time Associated Diagnosis Comments MRI BRAIN WWO CONTRAST (GENERIC) STAT 07/28/2023 6:50 PM EDT Delirium documented in this encounter Results * MRI Brain wwo Contrast (Generic) (07/28/2023 6:50 PM EDT) WORKSTATION ID [id number] [facility] Anatomical Region Laterality Modality Head Magnetic Resonan ce Addenda Addendum by Melvin Dinh MD on 07/28/2023 7:18 PM EDT --------ADDENDUM #1-------- The Workflow Coordinator spoke with MURPHY Maldonado on 07/28/2023 7:06 PM to relay the results. Thank you for letting us participate in the care of this patient. ??If you are a health care provider and have any questions regarding this report, please contact the number below. ??For patients who have questions please contact the health point of care technician that requested your imaging first. ? Electronically signed by: Melvin Dinh MD, [facility] ([phone]), at 07/28/2023 7:12 PM --------ORIGINAL REPORT -------- [...] would be characteristic of a aggressive primary RADIO ENGINEER neoplasm such as glioblastoma or a very large metastasis. I have discussed the findings with the on site wastewater systems technician and have recommended the patient be taken to the emergency department. I will expedite this report. Thank you for letting us participate in the care of this patient. ??If you are a health care provider and have any questions regarding this report, please contact the number below. ??For patients who have questions please contact the health point of care technician that requested your imaging first. ? Electronically signed by: Melvin Dinh MD, [facility] ([phone]), at 07/28/2023 6:59 PM Addendum by Melvin Dinh MD on 07/28/2023 7:07 PM EDT --------ADDENDUM #1-------- The Workflow Coordinator spoke with [...] would be characteristic of a aggressive primary RADIO ENGINEER neoplasm such as glioblastoma or a very large metastasis. I have discussed the findings with the on site wastewater systems technician and have recommended the patient be taken to the emergency department. I will expedite this report. Thank you for letting us participate in the care of this patient. ??If you are a health care provider and have any questions regarding this report, please contact the number below. ??For patients who have questions please contact the health point of care technician that requested your imaging first. ? 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 These findings would be characteristic of a aggressive primary RADIO ENGINEER neoplasm such as glioblastoma or a very large metastasis. I have discussed the findings with the on site wastewater systems technician and have recommended the patient be taken to the emergency department. I will expedite this report. Thank you for letting us participate in the care of this patient. ??If you are a health care provider and have any questions regarding this report, please contact the number below. ??For patients who have questions please contact the health point of care technician that requested your imaging first. ? Electronically signed by: Melvin Dinh MD, [facility] ([phone]), at 07/28/2023 6:59 PM Narrative 07/28/2023 6:59 PM EDT EXAMINATION: MRI BRAIN WWO CONTRAST (GENERIC) [...] Persistent occipital sinus, normal variant is noted. Procedure Note Melvin Dinh MD - 07/28/2023 EXAMINATION: MRI BRAIN WWO CONTRAST (GENERIC) CLINICAL HISTORY: change of mental status R41.0, Disorientation, unspecified TECHNIQUE: MRI of the brain was performed before and after the intravenousadministration of 16cc Dotarem. COMPARISON: No previous brain studies. FINDINGS: Marrow signal intensity is normal. No osseous lesions are identified. Patient shows a quite large process identified in the left hemisphere. Amass is seen centered in the left posterior temporal lobe measuring approximately4 x 3 x 4 cm. It shows generally heterogeneous T2 hyperintensity and isassociated with an extensive left hemispheric vasogenic edema pattern involving the temporal lobe, the posterior perez radiata, the visual radiations, theexternal and internal capsule on the left. 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 There is minimal restricted diffusion. Noabnormal abnormal blood products noted on susceptibility weighted images. Mass effect is moderately severe with a midline shift at the septumpellucidum of about 5 to 6 mm but there is compression of the left lateralventricular system well appreciated on coronal images. The left uncus extendsminimally into the suprasellar cistern and abuts the 3rd nerve as seen on coronal [id number] series 17. No additional lesions are identified. No abnormal meningeal enhancementis identified. No posterior fossa lesions. The major arterial flow voids are patent. There is anterior displacementof the left middle cerebral artery, M1 segment and elevation of the inferiordivision of the MCA on sagittal images Persistent occipital sinus, normal variant is noted. IMPRESSION Large ring-enhancing mass centered in the left temporal lobe withvasogenic edema pattern as described, and mass effect with compression of the leftlateral ventricular system. These findings would be characteristic of aaggressive primary RADIO ENGINEER neoplasm such as glioblastoma or a very large metastasis. I have discussed the findings with the on site wastewater systems technician and have recommended thepatient be taken to the emergency department. I will expedite this report. Thank you for letting us participate in the care of this patient. If youare a health care provider and have any questions regarding this report,please contact the number below. For patients who have questions please contactthe health point of care technician that requested your imaging first. Electronically signed by: Melvin Dinh MD, [facility]([phone]), at 07/28/2023 6:59 PM Molina Herr MD IMG MRI ORDERABLES documented in this encounter Visit Diagnoses Diagnosis Delirium Other alteration of consciousness documented in this encounter Administered Medications Inactive Administered Medications - up to 3 most recent administrations Medication Order MAR Action Action Date Dose Rate Site gadoterate meglumine (Dotarem) (0.5 mMol/mL) injection solution 0-100 mL 0-100 mL, Intravenous, ONCE PRN, 1 dose, Starting on Debbie 07/28/23 at 1850, Until Debbie 07/28/23 at 1851, Per Protocol, Radiology Contrast, Routine Given 07/28/2023 6:51 PM EDT 16 mLs documented in this encounter Care Teams Lightning Rod Erector Relationship Specialty Start Date End Date Molina Herr MD [facility] [address] [place] [address] PCP - General 01/27/10 documented as of this encounter
--- OUTSIDE RECORDS SUMMARY | 2023-10-17 15:08 | XMS_ITS | Encounter Summary ---
[place] [address] Care Team Providers Care Doctor Naturopathic Name Role Phone Molina Herr MD Primary Care Provider [phone] Encounter Details Date Type Department Care Team (Latest Contact Info) Description 07/27/2023 Travel Social History Tobacco Use Types Packs/Day Years Used Date Smoking Tobacco: Never Smokeless Tobacco: Never Alcohol Use Standard Drinks/Week Comments Not Currently 0 (1 standard drink = 0.6 oz pur e alcohol) nothing in a few months [facility] Inpatient Questions Answer Date Recorded Does Anyone [...] AM EDT Office [place] [address] Elly Alston MD [facility] HOSPICE AND [place]IAT[place] [address] 10/27/2023 1:00 PM EDT Office Visit Speech Therapy at [place] [phone] Debra Franco, SECURITY GUARD DISPATCHER 11/03/2023 2:00 PM EDT Office [place] [address] Debra Franco, SECURITY GUARD DISPATCHER 11/08/2023 2:30 PM EDT Appointment MRI at [place] [phone] Navjot Grider MD [facility] [address] [place] [address] 11/09/2023 1:45 PM EDT Office Visit Hematology and Oncology at [place] [phone] Isabell Jacob MD [facility] [place] [address] 11/11/2023 10:30 AM EDT Office Visit Radiation Oncology at [place] [phone] Nicki Sharpe MD [facility] [place] [address] 11/15/2023 10:00 AM EDT Office [place] [address] Debra Franco, SECURITY GUARD DISPATCHER 11/16/2023 9:00 AM EDT Office Visit H[place]ology [place] [phone] Bisi Nam 11/22/2023 10:00 AM EDT Office [place] [address] Debra Franco SLP 11/30/2023 9:00 AM EDT Office Visit Hematology [place] [address] Bisi Nam 12/14/2023 9:00 AM EDT Office Visit [place]ology [place] [address] Bisi Nam 12/28/2023 9:00 AM EDT Office Visit [place] [address] Bisi Nam documented as of this encounter Visit Diagnoses Not on filedocumented in this encounter Care Teams Doctor Naturopathic Relationship Specialty Start Date End Date Molina Herr MD [facility] [address] [place] [address] PCP - General 01/27/10 documented as of this encounter
--- OUTSIDE RECORDS SUMMARY | 2023-10-17 15:08 | XMS_ITS | Encounter Summary ---
Author Organization [facility] Address [place] [id number] Care Team Providers Care Newspaper Journalist Name Role Phone Molina Herr MD Primary Care Provider [phone] Reason for Referral * Consultation (Routine) - Closed Specialty Diagnoses / Procedures Referred By Contac t Referred To Contact Radiation Oncology Diagnoses Brain tumor Michael Lundberg MD [facility] [place] [address] [place] [address] Nicki Sharpe MD [facility] [place] [address] Referral ID Status Reason Start Date Expiration Date V isits Requested Visits Authorized [id number] Closed Consult, Test & Treat 08/06/2023 08/05/2024 1 1 * Speech Therapy (Routine) - Authorized Specialty Diagnoses / Procedures Referred By Contac t Referred To Contact Speech Therapy Diagnoses Brain tumor RFV aphasia - please sched CURT. Debra would be preferred, but any of the neuro projector operator are fine. Michael Lundberg MD [facility] [place] [address] [place] [address] [facility] [place] [address] Referral ID Status Reason Start Date Expiration Date Visits Requested Visits Authorized [id number] Authorized Evaluate and Treat 08/06/2023 08/05/2024 100 100 * Consultation (Routine) - Closed Specialty Diagnoses / Procedures Referred By Flo viveros Referred To Contact Hematology and Oncology Diagnoses Brain tumor Micahel Lundberg MD [facility] [place] [address] [place] [address] [facility] [address] [place] [address] Referral ID Status Reason Start Date Expiration Date V isits Requested Visits Authorized [id number] Closed Consult, Test & Treat 08/06/2023 08/05/2024 1 1 Reason for Visit * Auth/Cert (Routine) Specialty [...] (WRVU 3.75) MODIFIER,STEALTH 2,KINEVO Jhonny Dunlap MD [facility] [place] [address] [place] [address] [facility] Referral ID Status Reason Start Date Expiration Date Visits Re quested Visits Authorized [id number] 1 1 Encounter Details Date Type Department Care Team (Latest Contact Info) Description 08/04/2023 8:42 AM EDT - 08/07/2023 4:11 PM EDT Hospital Encounter Neurosciences and ENT Unit Level 5 [place] [address] Jhonny Dunlap MD [facility] [place] [address] [place] [address] Brain tumor Discharge Disposition: Home Social History Tobacco Use Types Packs/Day Years Used Date Smoking Tobacco: Never Smokeless Tobacco: Never Alcohol Use Standard Drinks/Week Comments Not Currently 0 (1 standard drink = 0.6 oz pur e alcohol) nothing in a few months [facility] Utilities Answer Date Recorded In the past 12 months has th e [employer], gas, oil, or water [employer] threatened to shut off services in [...] living in a usp (including now)? No 08/05/2023 DH IPV Inpatient [...] Sign Reading Time Taken Comments Blood Pressure 121/80 08/07/2023 8:06 AM EDT Pulse 80 08/05/2023 8:00 AM EDT Temperature 37.2 ??C (99 ??F) 08/07/2023 8:06 AM EDT Respiratory Rate 18 08/07/2023 8:06 AM EDT Oxygen Saturation 99% 08/07/2023 8:06 AM EDT Inhaled Oxygen Concentration - [...] On 08/04/23, Perfecto Polk was [facility] [place] [facility] for left temporal tumor resection; there were [...] provider. XR Knee Standing Alignment AP Lat [place] Right Result Date: 08/03/2023 EXAMINATION: XR KNEE [...] questions please contact the health pet care associate that requested your imaging first. Electronically signed by: Nathalie Jarquin MD, [facility] ([phone]), at 08/03/2023 12:45 PM MRI Brain wo [...] questions please contact the health pet care associate that requested your imaging first. Electronically signed by: Otto Dunaway MD, [facility] ([phone]), at 07/30/2023 10:[address] Chest Abdomen Pelvis w Contrast (Generic) Result [...] questions please contact the health pet care associate that requested your imaging first. Electronically signed by: Rodney Jain MD, [facility] ([phone]), at 07/29/2023 5:03 PM MRI Brain wwo Contrast (Generic) Addendum Date: [...] questions please contact the health pet care associate that requested your imaging first. Electronically signed by: Melvin Dinh MD, [facility] ([phone]), at 07/28/2023 7:12 PM --------ORIGINAL REPORT -------- [...] would be characteristic of a aggressive primary HEALTH RESEARCHER neoplasm such as glioblastoma or a very large metastasis. I have discussed the findings with the agronomy technician and have recommended the patient be taken to the emergency department. I will expedite this report. Thank you for letting us participate in the care of this patient. If you are a health care provider and have any questions regarding this report, please contact the number below. For patients who have questions please contact the health pet care associate that requested your imaging first. Electronically signed by: Melvin Dinh MD, [facility] ([phone]), at 07/28/2023 6:59 PM Addendum Date: 07/28/2023 [...] would be characteristic of a aggressive primary HEALTH RESEARCHER neoplasm such as glioblastoma or a very largemetastasis. I have discussed the findings with the agronomy technician and have recommended the patient be taken to the emergency department. I will expedite this report. Thank you for letting us participate inthe care of this patient. If you are a health care provider and have any questions regarding this report, please contact the number below. For patients who have questions please contact the health pet care associate that requested your imaging first. Electronically signed by: Melvin Dinh MD, [facility] ([phone]), at 07/28/2023 6:59 PM Result Date: 07/28/2023 [...] would be characteristic of a aggressive primary HEALTH RESEARCHER neoplasm such as glioblastoma or a very large metastasis. I have discussed the findings with the agronomy technician and have recommended the patient be taken to the emergency department. I will expedite this report. Thank you for letting us participate in the care of this patient. If you are a health care provider and have any questions regarding this report, please contact the number below. For patients who have questions please contact the [facility] care professi onvt that requested your imaging first. Electronically signed by: Melvin Dinh MD, [facility] ([phone]), at 07/28/2023 6:59 PM Pending Studies and Lab Data: Final pathology Discharge Condition: Good Discharge to: Home Future Appointments and Orders Future Appointments and Orders Future Appointments Provider Department Dept Phone 08/31/2023 1:40 PM Tonya Plasencia PA Neurosurgery at [facility] Arrive at: [facility] [phone] Please dispose of unused excess opioids before your appointment or bring them with you to the appointment and we will help you dispose of them correctly. 09/21/2023 9:10 AM Clinic, Dr Shila Zelaya Orthopaedics at [facility] Arrive at: [facility] [phone] Future Orders Complete By Expires Referral to Neuro-Oncology [[id number] Custom] As directed Process Instructions: If no [...] grade glioma diagnosis Referral to Speech Therapy [[id number] Custom] As directed Process Instructions: Scheduling Instructions: [...] Generic drug: atorvastatin 20 mg Refills: 0 ohutjuspefmhr-ZI-pdse 200-10 mcg-mg Tablet, Chewable Commonly known as: [...] Updated Allergies/ADRs: Allergies Allergen Reactions Penicillins Adrienne [facility] Penicillin Allergy Risk Assessment 06/13/2023: Low risk penicillin allergy. OK to receive full dose of cefazolin, cefuroxime, or any 3rd or 4th+ generation cephalosporin. Commonly used phone numbers Neuro-oncology [phone] Radiation oncology [phone] Endocrinology [phone] Infectious disease [phone] Neurology [phone] Hematology/Oncology [phone] Plastic Surgery [phone] Trauma/General Surgery [phone] Urology [phone] Instructions Given to Patient at Discharge: Patient [...] Center 08/31/2023 1:40 PM Tonya Plasencia PA [facility] [id number] [facility] 09/21/2023 9:10 AM Clinic, Dr Fuchs Team [facility] ORTH 3D [facility] [x] Please follow up in the Neurosurgery Clinic with Tonya Plasencia PA-C, on 08/31/23. Please call the Neurosurgery Office at [phone] if you need to re-scheduled the appointment. Imaging: [x] No Imaging required at follow-up. [x] Please follow up in the Neuro-Oncology Clinic per Ms. Plasencia's instructions. Please call the Neuro-Oncology Office at [phone] if you do not receive a scheduled appointment. [x] Please follow up in the Radiation Oncology Clinic per Ms. Plasencia's instructions. Please call the Radiation Oncology Office at [phone] if you do not receive a scheduled appointment. HOW TO REACH NEUROSURGERY Office Hours (Tuesday through Tuesday 8am-5pm): Call On weekends or after office hours (after 5pm or before 8am): Call [phone] and ask the shuttle buggy operator to page the Neurosurgery Resident/Advanced Practice Provider interventional cardiologist. *Your surgeon may not be call center supervisor (especially after office hours or on the weekend) so be ready totell about yourself and your surgery when you call. Neurosurgery Providers Adult Neurosurgery Dr. Jaimie Montesinos Pediatric Neurosurgery Dr. Tiny Velez Advanced Practice Providers Flora Rodrigues, Nurse Practitioner (outpatient telehealth) Tonya Plasencia, Physician Factory Assembler (inpatient/outpatient: neuro-oncology) Terri Snell, Physician Factory Assembler (inpatient) Osiris Ospina, Physician Factory Assembler (inpatient) Dajuan Ahmadi, Physician Factory Assembler (inpatient) Horace Paulino, Nurse Practitioner (outpatient: pediatric) Lalita Gordon, Nurse Practitioner (outpatient: vascular) Jess Fisher, Physician Factory Assembler (outpatient: spine) William Zambrano, Physician Factory Assembler (outpatient) Outpatient Nurses Michael Lundberg MD 08/07/2023 [...] Center 08/31/2023 1:40 PM Tonya Plasencia PA [facility] [id number] [facility] 09/21/2023 9:10 AM Clinic, Dr Fuchs Team [facility] ORTH [address] [place] [address] [x] Please follow up in the Neurosurgery Clinic with Tonya Plasencia PA-C, on 08/31/23. Please call the Neurosurgery Office at [phone] if you need to re-scheduled the appointment. Imaging: [x] No Imaging required at follow-up. [x] Please follow up in the Neuro-Oncology Clinic per Ms. Plasencia's instructions. Please call the Neuro-Oncology Office at [phone] if you do not receive a scheduled appointment. [x] Please follow up in the Radiation Oncology Clinic per Ms. Plasencia's instructions. Please call the Radiation Oncology Office at [phone] if you do not receive a scheduled appointment. HOW TO REACH NEUROSURGERY Office Hours (Tuesday through Tuesday 8am-5pm): Call On weekends or after office hours (after 5pm or before 8am): Call [phone] and ask the shuttle buggy operator to page the Neurosurgery Resident/Advanced Practice Provider interventional cardiologist. *Your surgeon may not be call center supervisor (especially after office hours or on the weekend) so be ready totell about yourself and your surgery when you call. Neurosurgery Providers Adult Neurosurgery Dr. Jaimie Montesinos Pediatric Neurosurgery Dr. Tiny Velez Advanced Practice Providers Flora Rodrigues, Nurse Practitioner (outpatient telehealth) Tonya Plasencia, Physician Factory Assembler (inpatient/outpatient: neuro-oncology) Terri Snell, Physician Factory Assembler (inpatient) Osiris Ospina, Physician Factory Assembler (inpatient) Dajuan Ahmadi, Physician Factory Assembler (inpatient) Horace Paulino, Nurse Practitioner (outpatient: pediatric) Lalita Gordon, Nurse Practitioner (outpatient: vascular) Jess Fisher, Physician Factory Assembler (outpatient: spine) William Zambrano, Physician Factory Assembler (outpatient) Outpatient Nurses documented in this encounter [...] 20 mg by mouth daily. 4 03/08/2014 vtffdghcgtsgd-WI-setr (SOURCE CF) 200-10 mcg-mg Chew Take 1 [...] Simeon MD - 08/07/2023 8:37 AM EDT [facility] NEUROSURGERY PROGRESS NOTE DATE: 08/07/2023; HD: [...] asymmetry Tongue midline MOTOR: RUE: 07/09 LUE: 55 RLE: 07/09 LLE: 07/09 No pronator drift [...] -Ppx Keppra -GI Ppx -Activity as tolerated -PT/OT/SECURITY INSTALLATION SALES TECHNICIAN -DISPO: likely home today PROBLEM LIST: Glioma Cerebral edema Aphasia For question please call NSGY pager [phone] Andrei Simeon MD 08/07/2023 8:37 AM Clinical Documentation Improvement: Active Hospital Problems Diagnosis Brain tumor Resolved Hospital Problems No resolved problems to display. * Andrei Simeon MD - 08/06/2023 8:44 AM EDT [facility] NEUROSURGERY PROGRESS NOTE DATE: 08/06/2023; HD: [...] -Ppx Keppra -GI Ppx -Activity as tolerated -PT/OT/SECURITY INSTALLATION SALES TECHNICIAN -DISPO: likely home today PROBLEM LIST: Glioma Cerebral edema Aphasia For question please call NSGY pager [phone] Andrei Simeon MD 08/06/2023 8:44 AM Clinical Documentation Improvement: Active Hospital Problems Diagnosis Brain tumor Resolved Hospital Problems No resolved problems to display. * Andrei Simeon MD - 08/05/2023 11:08 AM EDT [facility] NEUROSURGERY PROGRESS NOTE DATE: 08/05/2023; HD: [...] -Ppx Keppra -GI Ppx -Activity as tolerated -PT/OT/SECURITY INSTALLATION SALES TECHNICIAN -DISPO: floor PROBLEM LIST: Glioma Cerebral edema Aphasia For question please call NSWorkube pager [phone] Andrei Simeon MD 08/05/2023 11:08 AM Clinical Documentation Improvement: Active Hospital Problems Diagnosis Brain tumor Resolved Hospital Problems No resolved problems to display. * Debra Franco, SECURITY INSTALLATION SALES TECHNICIAN - 08/05/2023 8:56 AM EDT Speech Therapy Evaluation Patient Profile: Perfecto Okeefe is an 82 y.o. 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 Dunlap. PMHx is significant for R TKA (~3-4 weeks prior to admission), OA, and carotid stenosis on ASA81. SECURITY INSTALLATION SALES TECHNICIAN services were consulted for aclinical swallow, language, [...] orientation - did not require cuing from SECURITY INSTALLATION SALES TECHNICIAN to functionally use the calendar Adequate spelling at the word level was appreciated Good insight into deficits- endorsed being highly motivated to improve Requested therapy materials to carry him over in between SECURITY INSTALLATION SALES TECHNICIAN sessions - provided information on [employer] adriana Follows Commands: Follows multi-step commands [...] liquids X Water via straw, single sips [place] thick liquids Honey thick liquids Pureed solids [...] results of the inpatient evaluation and overall SECURITY INSTALLATION SALES TECHNICIAN recommendations/compensatory strategies. Re-educated on role of the SECURITY INSTALLATION SALES TECHNICIAN and overview of the rehab program. At the pt's request, this clinician provided information about [employer] adriana and the recommended exercises to address current deficits. At the end of the session pt denied outstanding questions or concerns. Pt status and results/recommendations were discussed with RN. Paged [phone] with request for outpatient referral- confirmed with MURPHY Ospina. Assessment: Perfecto Okeefe was seen on 08/05/2023 for a skilled SECURITY INSTALLATION SALES TECHNICIAN evaluation targeting swallowing, language, and cognitive-communication. Swallowing: [...] beneficial in addressing cognitive-communication concerns. Recommend: skilled SECURITY INSTALLATION SALES TECHNICIAN services 2-4x per week while in-house, 1x per week outpatient to target language and cognitive-communication skills. Maldonado requested the referral to be sent to [facility] for continuity of care. Diagnosis: Functional appearing [...] the word, like playing a game of charZumbl. Even gesturing with your hands in a [...] mind??? I'll ask you later.?? Adapted from: [email or web address]/ Delirium precautions: Orientation: Provide visual and hearing [...] histamine blockers,corticosteroids) Pt will benefit from continued SECURITY INSTALLATION SALES TECHNICIAN services while hospitalized and in the discharge [...] session given minimal cueing. Plan: Therapy Frequency (SECURITY INSTALLATION SALES TECHNICIAN Eval): 2-4 times/wk Pt./family are in agreement with treatment plan. Total Minutes (Speech Language Pathology): 56 Thank you for this consult with this patient. Please feel free to page me with any questions or concerns. Debra Fracno, MS, [facility]-SECURITY INSTALLATION SALES TECHNICIAN Speech-Language Pathologist Pager # [phone] * Beata [...] 19.6) performed by Ernie Fuchs MD at [facility] MAIN OR PRO COLONOSCOPY, BIOPSY 01/10/2013 COLONOSCOPY FLEXIBLE, WITH BX performed by Dominick Earl MD at [facility] ENDOSCOPY PRO COLONOSCOPY, REMV LESN, SNARE N/A 01/12/2018 COLONOSCOPY, POLYPECTOMY, REMOVAL LESION BY SNARE (WRVU 4.67) performed by Guerda Coombs MD at [facility] ENDOSCOPY PRO COLONOSCOPY, REMV LESN, SNARE N/A 01/20/2023 COLONOSCOPY, POLYPECTOMY, REMOVAL LESION BY SNARE (WRVU 4.57) performed by Guerda Coombs MD at [facility] ENDOSCOPY PRO LAP, APPENDECTOMY N/A 03/09/2017 LAPAROSCOPIC APPENDECTOMY (WRVU 9.45) performed by Saurav Chen MD at [facility] MAIN OR PRO UPPER GI ENDOSCOPY, DIAGNOSTIC N/A 06/11/2021 EGD, UPPER GI ENDOSCOPY performed by Guerda Coombs MD at [facility] ENDOSCOPY Social History: Patient lives with his significant other in a one-story home with 2 GLEN. Bathroom includes a walk-in shower with grab bars and a chair as well as a comfort-height toilet. At his baseline, patient is independent in all aspects. 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 Significant other is retired as well [...] his recent R TKR. Recommend additional outpatient SECURITY INSTALLATION SALES TECHNICIAN for his current speech impairments (see SECURITY INSTALLATION SALES TECHNICIAN note for detail). No further inpatient PT need identified, please encourage frequent time up in the chair and ambulation as tolerated. Discharge Recommendations: Based on the current findings, Anticipated Discharge Disposition (PT): Home with outpatient PT (forhis knee, already on schedule) and outpatient SECURITY INSTALLATION SALES TECHNICIAN Consult Recommendations: No other consults recommended at [...] outlined in thisevaluation. Time IN / OUT: 7288-5041 Beata Tapia DPT Board-Certified Clinical Specialist in Geriatric Physical Therapy Board-Certified Clinical Specialist in Neurologic Physical Therapy Inpatient/outpatient Rehab [facility] * Tab Campos, OT - 08/05/2023 8:45 [...] 19.6) performed by Ernie Fuchs MD at [facility] MAIN OR PRO COLONOSCOPY, BIOPSY 01/10/2013 COLONOSCOPY FLEXIBLE, WITH BX performed by Dominick Earl MD at [facility] ENDOSCOPY PRO COLONOSCOPY, REMV LESN, SNARE N/A 01/12/2018 COLONOSCOPY, POLYPECTOMY, REMOVAL LESION BY SNARE (WRVU 4.67) performed by Guerda Coombs MD at [facility] ENDOSCOPY PRO COLONOSCOPY, REMV LESN, SNARE N/A 01/20/2023 COLONOSCOPY, POLYPECTOMY, REMOVAL LESION BY SNARE (WRVU 4.57) performed by Guerda Coombs MD at [facility] ENDOSCOPY PRO LAP, APPENDECTOMY N/A 03/09/2017 LAPAROSCOPIC APPENDECTOMY (WRVU 9.45) performed by Saurav Chen MD at [facility] MAIN OR PRO UPPER GI ENDOSCOPY, DIAGNOSTIC N/A 06/11/2021 EGD, UPPER GI ENDOSCOPY performed by Guerda Coombs MD at [facility] ENDOSCOPY Social History: Patient lives with his s.o.(Ella) in [place], [place]. Both are retired. Home Setup: 1 [...] perseveration, unable to recall his PCP's name; SECURITY INSTALLATION SALES TECHNICIAN in at end of session for further assessment Range of motion, strength, coordination: Hand dominance: right Bilateral UEs are within functional limitations for strength/ROM/coordination LE limitations: grossly WFL, recent (3 weeks ago?) L TKA Sensation: denies numbness/tingling Activities of Daily Living: Self-feeding: independent Grooming: standing at the sink w/ setup Dressing: able to reach feet to don/doff socks/shoes Bathing: able to vending machine operator place w/ eyes closed w/ slight sway [...] communication impairments. Recommend follow up with outpatient SECURITY INSTALLATION SALES TECHNICIAN for cognitive and language interventions. Do not anticipate any acute OT needs at this time. Anticipate that pt will return home with assistance once medically ready. Do not anticipate further OT needs while hospitalized. Equipment Recommendations: Equipment Needs Upon Discharge (OT): None Anticipated Discharge Disposition (OT): home with supervision, home with outpatient therapy services (outpatient SECURITY INSTALLATION SALES TECHNICIAN for cognition and language) Other Recommendations: Ambulate [...] and measurable assessment of functional outcome. Pager: [phone] TAB CAMPOS OT 08/05/2023 Occupational Therapy Rehabilitation Department * Ayah More RN - 08/04/2023 6:38 PM EDT Pt [facility] at approximately 1630. Hemodynamically stable, alert and [...] Lion MD - 08/04/2023 4:27 PM EDT [facility] NEUROSURGERY PROGRESS NOTE DATE: 08/04/2023; HD: [...] -Ppx Keppra -GI Ppx -Activity as tolerated -PT/OT/SECURITY INSTALLATION SALES TECHNICIAN -DISPO: ICU PROBLEM LIST: Glioma Cerebral edema Aphasia For question please call NSGY pager [phone] Savana Lion MD 08/04/2023 4:27 PM [facility] Neurosurgery Inpatient Pager: #[phone] Personal Pager: #[phone] Clinical Documentation Improvement: Active Hospital Problems Diagnosis [...] Pt now admtted to NCCU for close jsfpx-igccdxfxrpmxrl-sa. ROS: Gen: denies fever, chills, fatigue, malaise, [...] 19.6) performed by Ernie Fuchs MD at [facility] MAIN OR PRO COLONOSCOPY, BIOPSY 01/10/2013 COLONOSCOPY FLEXIBLE, WITH BX performed by Dominick Earl MD at [facility] ENDOSCOPY PRO COLONOSCOPY, REMV LESN, SNARE N/A 01/12/2018 COLONOSCOPY, POLYPECTOMY, REMOVAL LESION BY SNARE (WRVU 4.67) performed by Guerda Coombs MD at [facility] ENDOSCOPY PRO COLONOSCOPY, REMV LESN, SNARE N/A 01/20/2023 COLONOSCOPY, POLYPECTOMY, REMOVAL LESION BY SNARE (WRVU 4.57) performed by Guerda Coombs MD at [facility] ENDOSCOPY PRO LAP, APPENDECTOMY N/A 03/09/2017 LAPAROSCOPIC APPENDECTOMY (WRVU 9.45) performed by Saurav Chen MD at [facility] MAIN OR PRO UPPER GI ENDOSCOPY, DIAGNOSTIC N/A 06/11/2021 EGD, UPPER GI ENDOSCOPY performed by Guerda Coombs MD at [facility] ENDOSCOPY Social History Tobacco Use Smoking status: [...] the left temporal neoplasm as described above Electronically signed by: Otto Dunaway MD, [facility] ([phone]), at 07/30/2023 10:[address] Chest Abdomen Pelvis w Contrast (Generic) Impression 1. No metastatic disease appreciated in the chest, abdomen or pelvis. 2. Small right chest wall subcutaneous nodule, increased from 2018 but otherwise nonspecific. Low suspicion of malignancy. 3. Cholelithiasis and small polyps or mural nodules. No suspicion of primary malignancy. Consider follow-up outpatient ultrasound to check size stability. Electronically signed by: Rodney Jain MD, [facility] ([phone]), at 07/29/2023 5:03 PM EKG: Results for orders placed or performed during the hospital encounter of 07/05/23 EKG 12 Lead Result Value Ref Range Ventricular rate 68 BPM Atrial Rate 68 BPM P-R Interval 268 ms QRS Duration 90 ms Q-T Interval 366 ms QTC Calculated (Bezet) 389 ms Calculated P [place] 41 degrees Calculated R [place] -18 degrees Calculated T [place] 25 degrees INTERPRETATION Sinus rhythm with 1st degree A-V block Possible Anterior infarct , age undetermined Abnormal ECG No previous ECGs available Confirmed by MD Joelle, Magid ([id number]) on 07/05/2023 2:33:35 PM Physical Exam: [...] - NCCU Misti Betts APRN Neurocritical Care, [id number] documented in this encounter Procedure Notes * Flora Hagen MD - 08/06/2023 6:05 PM EDTAssociated Order(s): EEG CONTINUOUS MONITORING INPATIENT [facility] Department of Neurology Inpatient Continuous Video EEG [...] thrombin (Bovine) (Thrombinar) kit, , , PRN, Jhonny Dunlap MD, 20,000 Units at 08/04/23 1548 polyethylene [...] EKG. Video was recorded during the session. SCREWHEAD STONER AND POLISHER'S REPORT: Performed by: Jhonny Schuler At the [...] record, and Patient, Friend (Life Partner Suma [phone]) Introduced self/reviewed role; services accepted. Admitted From: [place], [place] Reason for Hospitalization: elective brain surgery Covid Vaccination Status: 1st, 2nd & booster (3 doses and a booster) Last COVID test: Lab Results Component Value Date COVID19 Not Detected 03/17/2020 Past medical History: Past Medical History: Diagnosis Date Hyperlipidemia Lumbar degenerative disc disease 08/21/2010 Hospitalizations Within the Past 30 Days: no previous admission in last 30 days (07/29/2023 was transferred from [facility]) Current Decision-Making Capacity: Self If AD's have not been completed the following surrogate would be surrogate decision maker per [place] decision making law. (Only good for 180 days) Any patient receiving care in [place] must abide by [place] law. The hierarchy for surrogate decision making [...] (i) The agent with financial power of package winder or a conservator appointed in accordance with RSA 464-A. (j) The guardian of the patient???s estate. Advance Care Planning: Attempt Cardiopulmonary Resuscitation - Inpatient Received -Advanced Directive: Yes, on file Who is your DPOA-HC?: Child (Joan Polk [phone]) Current Coping/Education/Information Needs: Patient undersatnds reasons for admission. Current Functional Ability: Assistive Equipment and Assistive Person (He uses a walker with supervision R/T recent surgery) Functional Status Prior to Admission: Independent Prior ADLs & IADLs: Independent with all ADLs & IADLs Home Environment: Others in the home: friend(s) (June Mohamud [phone]). Current Living Arrangements: home/apartment/condo. Accessibility Concerns:1 level, [...] homeless or living in a usp (including now)?: No In the past 12 [...] Current DME: none Home Address confirmed as: [address] [place] [phone] Social & Family Supports: All names listed below confirmed with patient as current and correct Extended Emergency Contact Information Primary Emergency Contact: Joan Polk Address: [address] [facility] [address] [place] [address] [facility] Mobile Relation: Child Secondary Emergency Contact: June Mohamud Address: [address] [place] [address] [facility] Mobile Relation: Life Partner Current Care Provided by: self Provides Primary Care For: friend(s) (June Mohamud [phone]) Caregiver if needed: friend(s) (June Mohamud [phone]) Quality of Family relationships: helpful, involved, supportive [...] Yes ; Prescription Coverage: Yes Preferred Pharmacy: [facility]/pharmacy #[id number] [address] [place], [place] [address] [facility] [address] [facility] [address] [facility] [address] [facility] [address] [place], [place] - [address] [facility] [address] [facility] [phone] [place] Status: Patient is a : No Primary Care Provider confirmed: Molina Herr MD [phone] Patient/Caregiver Goals of Treatment: to get better abd spend time with friends and families. Potential Needs for Transition of Care: none Agency Referrals: Not Applicable Transportation: no concerns (June Murrayelbert [phone]) Transportation Anticipated: family or friend will provide (Life partner June [place] [phone]) Concerns to be Addressed: no discharge needs [...] of care planning. Office of Care Management time study technician code number stamper Baljit Ruiz MSN RN [email or web address] Plan of Care - Candy Gray [...] exams Pain control MRI to be complete SECURITY INSTALLATION SALES TECHNICIAN/PT/OT following INDIVIDUALIZED FALL PREVENTION INTERVENTIONS: Patient-specific fall risk factors per assessment: [current deficits]: [place], hospital environment, pain Assistance [level of assistance [...] 19.6) performed by Ernie Fuchs MD at [facility] MAIN OR PRO COLONOSCOPY, BIOPSY 01/10/2013 COLONOSCOPY FLEXIBLE, WITH BX performed by Dominick Earl MD at [facility] ENDOSCOPY PRO COLONOSCOPY, REMV LESN, SNARE N/A 01/12/2018 COLONOSCOPY, POLYPECTOMY, REMOVAL LESION BY SNARE (WRVU 4.67) performed by Guerda Coombs MD at [facility] ENDOSCOPY PRO COLONOSCOPY, REMV LESN, SNARE N/A 01/20/2023 COLONOSCOPY, POLYPECTOMY, REMOVAL LESION BY SNARE (WRVU 4.57) performed by Guerda Coombs MD at [facility] ENDOSCOPY PRO LAP, APPENDECTOMY N/A 03/09/2017 LAPAROSCOPIC APPENDECTOMY (WRVU 9.45) performed by Saurav Chen MD at [facility] MAIN OR PRO UPPER GI ENDOSCOPY, DIAGNOSTIC N/A 06/11/2021 EGD, UPPER GI ENDOSCOPY performed by Guerda Coombs MD at [facility] ENDOSCOPY Subjective/Objective: I am so thankful that [...] Operative Note Patient Name: Perfecto Polk : [id number] MR#: [id number] Case Date: 08/04/2023 Surgeon: Surgeons and Role: [...] Dunlap MD - 08/04/2023 1:18 PM EDT [facility] Patient Name: Perfecto Polk : [id number] MR#: [id number] Case Date: 08/04/2023 Surgeon: Surgeons and Role: * Jhonny Dunlap MD - Primary * Savana Lion MD - Resident - Assisting Preoperative diagnosis: left temp tumor Postoperative diagnosis: left temp tumor Procedure(s) (LRB): @CRANI, FOR TUMOR, SUPRATENTORIAL, NOT MENINGIOMA (WRVU 30.83) (Left) MICROSCOPE USE (WRVU 3.46) (N/A) STEREOTACTIC COMPUTER-ASSTD NAVIGATIONAL CRANIAL INTRADURAL (WRVU 3.75) (N/A) MODIFIER,STEALTH 2,KINEVO (N/A) Anesthesia: General Estimated Blood Loss: [...] AM EDT Office Visit Palliative Medicine at [place] [phone] Elly Alston MD [facility] [address] HOSPICE [place] [address] 10/27/2023 1:00 PM EDT Office Visit Speech Therapy at [place] [phone] Debra Franco, SECURITY INSTALLATION SALES TECHNICIAN 11/03/2023 2:00 PM EDT Office Visit Speech Therapy at [place] [phone] Debra Franco, SECURITY INSTALLATION SALES TECHNICIAN 11/08/2023 2:30 PM EDT Appointment MRI at [place] [phone] Navjot Grider MD [facility] [place] [address] 11/09/2023 1:45 PM EDT Office Visit Hematology and Oncology at [place] [phone] Isabell Jacob MD [facility] NEUROLOGY [place] [phone] 11/11/2023 10:30 AM EDT Office Visit Radiation Oncology at [place] [phone] Nicki Sharpe MD [facility] [place] [address] 11/15/2023 10:00 AM EDT Office [place] [address] Debra Franco, SECURITY INSTALLATION SALES TECHNICIAN 11/16/2023 9:00 AM EDT Office Visit Hematology [place] [address] Bisi Nam 11/22/2023 10:00 AM EDT Office [place] [phone] Debra Franco, SECURITY INSTALLATION SALES TECHNICIAN 11/30/2023 9:00 AM EDT Office Visit Hematology [place] [address] Bisi Nam 12/14/2023 9:00 AM EDT Office Visit Hematology [place] [address] Bisi Nam 12/28/2023 9:00 AM EDT Office Visit Hematology [place] [address] Bisi Nam Scheduled Referrals Name Type Priority [...] NGS PANEL Routine 08/04/2023 2:01 PM EDT [facility] Routine 08/04/2023 2 :01 PM EDT SURGICAL PATHOLOGY REPORT Routine 08/04/2023 2:01 PM EDT BLOOD GAS VENOUS POC Routine 08/04/2023 1:40 PM EDT MODIFIER,STEALTH 2,KINEVO Yes 08/04/2023 12:33 PM EDT left temp tumor Stereotactic Cptr Asstd Px Cranial, Intradural (53899) Yes 08/04/2023 12:33 PM EDT left temp tumor Microsurg Techniques, Req Oper Microscope ([id number]) Yes 08/04/2023 12:33 PM EDT left temp tumor 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 Lymphocytes Abs 1.0 0.9 - 3.2 x10(3)/[facility] LABORATORY Monocyte % 7.5 % [facility] Monocyte Abs 0.9 0.3 - 0.9 x10(3)/[facility] LABOR[facility] Eos % 0.0 % [facility] Eosinophils Abs 0.0 0.0 - 0.4 x10(3)/[facility] LABORATORY Basophil % 0.1 % [facility] Baso Absolute 0.0 0.0 - 0.1 x10(3)/[facility] LABORATORY Immature Gran % 0.90 % [facility] Comment: Immature granulocytes(IG's)percentage and absolute count will include metamyelocytes, myelocytes, and promyelocytes. Blood smears from CBCs yielding IG's will be scanned manually for concordance. If this scan disagrees with the automated IG or if promyelocytes are noted, a manual differential will be performed. Immature Gran Absolute 0.10(H) 0.00 - 0.04 x10(3)/[facility]OR[facility]ORY Blood 08/07/2023 5:40 AM EDT 08/07/2023 6:13 AM EDT Narrative Resulting Agency Comment Spec In Lab Savana Lion MD HEMATOLOGY ORDERABLE S Performing Organization Address City/State/[facility] Co de Phone Number [facility] [place] [address] * (ABNORMAL) Hemogram (08/07/2023 5:40 AM EDT) White Blood Cell 11.5(H) 4.0 - 9.5 x10(3)/[facility] Red Blood Cell 3.50(L) 4.58 - 5.54 x10(6)/[facility] Hemoglobin 9.9(L) 13.7 - 16.5 g/dL [facility] Hematocrit 30.5(L) 40.5 - 48.5 % [facility] Mean Cell Volume 87.1 82.9 - 93.1 fL [facility] Mean Cell Hemoglobin 28.3 27.5 - 32.1 pg [facility] Mean Cell Hemoglobin Concentration 32.5 32.0 - 35.7 g/dL [facility] Platelet 273 145 - 357 x10(3)/mc L [facility] RDW Standard Deviation 46.5(H) 36.0 - 45.0 [facility] RDW coefficient of variation 14.7(H) 11.4 - 13.8 % [facility] Mean Platelet Volume 9.3 7.6 - 12.9 [facility] NRBC% auto 0.0 % [facility] NRBC Absolute 0.000 0.000 - 0.000 x10(3)/mc L [facility] Blood 08/07/2023 5:40 AM EDT 08/07/2023 6:13 AM EDT Narrative Resulting Agency Comment Spec In Lab Savana Lion MD HEMATOLOGY ORDERABLE S Performing Organization Address City/[facility]/ZIP Co de Phone Number [facility] [place] [address] * Phosphorus (08/07/2023 5:40 AM EDT) Phosphorus 2.9 2.5 - 4.5 mg/dL [facility] Blood 08/07/2023 5:40 AM EDT 08/07/2023 6:13 AM EDT Narrative Resulting Agency Comment Spec In Lab Jhonny Dunlap MD CHEMISTRY ORDERABLES Performing Organization Address [facility]/ZIP Co de Phone Number [facility] [place] [address] * Magnesium (08/07/2023 5:40 AM EDT) Magnesium 0.88 0.69 - 1.07 mmol/L [facility] Blood 08/07/2023 5:40 AM EDT 08/07/2023 6:13 AM EDT Narrative Resulting Agency Comment Spec In Lab Jhonny Dunlap MD CHEMISTRY ORDERABLES [facility] [place] [address] * (ABNORMAL) Basic Metabolic Panel (non-fasting) (08/07/2023 5:40 AM EDT) Glucose 116 65 - 199 mg/dL [facility] Comment:Diabetes: >=200 mg/d L plus symptoms Blood Urea Nitrogen 25(H) 10 - 20 mg/dL [facility] Creatinine 1.04 0.80 - 1.50 mg/dL [facility] Sodium 138 135 - 145 mmol/L [facility] Potassium 4.4 3.5 - 5.0 mmol/L [facility] Comment: Please note: ??Patients with WBC >100,000 may have falsely elevated Potassium levels. ??For accurate Potassium quantification in these patients send serum separator tube (gold top) for subsequent determinations. ??Contact the Clinical Chemistry Laboratory if there are any questions. Chloride 105 98 - 107 mmol/L [facility] Carbon Dioxide 23 22 - 31 mmol/L [facility] Anion Gap 10 5 - 15 mmol/L [facility] Calcium 8.6 8.5 - 10.5 mg/dL [facility] Est Glomerular Filtration Rate 73 >=60 mL/min/1. 73 m?? [facility] Comment: This patient's estimated [...] Dunlap MD CHEMISTRY ORDERABLES Performing Organization Address City/State/[facility] Co de Phone Number [facility] [place] [address] * EEG Continuous Monitoring Inpatient (08/06/2023 6:05 PM EDT) Narrative Flora Hagen MD - 08/06/2023 6:05 PM EDT Flora Hagen MD ? 08/08/2023 ??8:04 AM [facility] Department of Neurology Inpatient Continuous Video EEG [...] KaplanJade PA, 17 g at 08/06/23 0910 ??HYDROmorphone [...] EKG. Video was recorded during the session. SCREWHEAD STONER AND POLISHER'S REPORT: Performed by: Jhonny Schuler At the [...] 5:33 AM EDT) Neutrophil % 87.3 % [facility] Neutrophil Absolute 12.91(H) 1.70 - 6.10 x10(3)/mc L [facility] Lymph % 4.8 % [facility] Lymphocytes Abs 0.7(L) 0.9 - 3.2 x10(3)/mc L [facility] Monocyte % 7.1 % [facility] Monocyte Abs 1.0(H) 0.3 - 0.9 x10(3)/mc L [facility] Eos % 0.0 % [facility] Eosinophils Abs 0.0 0.0 - 0.4 x10(3)/mc L [facility] Basophil % 0.1 % [facility] Baso Absolute 0.0 0.0 - 0.1 x10(3)/mc L [facility] Immature Gran % 0.70 % [facility] Comment: Immature granulocytes(IG's)percentage and absolute count will include metamyelocytes, myelocytes, and promyelocytes. Blood smears from CBCs yielding IG's will be scanned manually for concordance. If this scan disagrees with the automated IG or if promyelocytes are noted, a manual differential will be performed. Immature Gran Absolute 0.10(H) 0.00 - 0.04 x10(3)/ L [facility] Blood 08/06/2023 5:33 AM EDT 08/06/2023 6:04 AM EDT Narrative Resulting Agency Comment Spec In Lab Savana Lion MD HEMATOLOGY ORDERABLE S [facility] [place] [address] * (ABNORMAL) Hemogram (08/06/2023 5:33 AM EDT) White Blood Cell 14.8(H) 4.0 - 9.5 x10(3)/ L [facility] Red Blood Cell 3.57(L) 4.58 - 5.54 x10(6)/mc L [facility] Hemoglobin 10.1(L) 13.7 - 16.5 g/dL [facility] Hematocrit 30.5(L) 40.5 - 48.5 % [facility] Mean Cell Volume 85.4 82.9 - 93.1 fL [facility] Mean Cell Hemoglobin 28.3 27.5 - 32.1 pg [facility] Mean Cell Hemoglobin Concentration 33.1 32.0 - 35.7 g/dL [facility] Platelet 271 145 - 357 x10(3)/mc L [facility] RDW Standard Deviation 45.2(H) 36.0 - 45.0 fL [facility] RDW coefficient of variation 14.6(H) 11.4 - 13.8 % [facility] Mean Platelet Volume 9.1 7.6 - 12.9 fL [facility] NRBC% auto 0.0 % [facility] NRBC Absolute 0.000 0.000 - 0.000 x10(3)/mc L [facility] Blood 08/06/2023 5:33 AM EDT 08/06/2023 6:04 AM EDT Narrative Resulting Agency Comment Spec In Lab Savana Lion MD HEMATOLOGY ORDERABLE S Performing Organization Address [facility] Co de Phone Number [facility] [place] [address] * Phosphorus (08/06/2023 5:33 AM EDT) Phosphorus 3.2 2.5 - 4.5 mg/dL [facility] Blood 08/06/2023 5:33 AM EDT 08/06/2023 6:04 AM EDT Narrative Resulting Agency Comment Spec In Lab Jhonny Dunlap MD CHEMISTRY ORDERABLES Performing Organization Address [facility] de Phone Number [facility] [place] [address] * Magnesium (08/06/2023 5:33 AM EDT) Magnesium 0.91 0.69 - 1.07 mmol/L [facility] Blood 08/06/2023 5:33 AM EDT 08/06/2023 6:04 AM EDT Narrative Resulting Agency Comment Spec In Lab Jhonny Dunlap MD CHEMISTRY ORDERABLES Performing Organization Address [facility] Co de Phone Number [facility] [place] [address] * (ABNORMAL) Basic Metabolic Panel (non-fasting) (08/06/2023 5:33 AM EDT) Glucose 132 65 - 199 mg/dL [facility] Comment:Diabetes: >=200 mg/d L plus symptoms Blood Urea Nitrogen 24(H) 10 - 20 mg/dL [facility] Creatinine 1.09 0.80 - 1.50 mg/dL [facility] Sodium 139 135 - 145 mmol/L [facility] Potassium 4.2 3.5 - 5.0 mmol/L [facility] Comment: Please note: ??Patients with WBC >100,000 may have falsely elevated Potassium levels. ??For accurate Potassium quantification in these patients send serum separator tube (gold top) for subsequent determinations. ??Contact the Clinical Chemistry Laboratory if there are any questions. Chloride 106 98 - 107 mmol/L [facility] Carbon Dioxide 24 22 - 31 mmol/L [facility] Anion Gap 9 5 - 15 mmol/L [facility] Calcium 8.8 8.5 - 10.5 mg/dL [facility] Est Glomerular Filtration Rate 69 >=60 mL/min/1. 73 m?? [facility] Comment: This patient's estimated [...] In Lab Jhonny Dunlap MD CHEMISTRY ORDERABLES [facility] [place] [address] * MRI Brain wwo Contrast (Generic) (08/05/2023 9:39 PM EDT) WORKSTATION ID [id number] RAD Anatomical Region Laterality Modality Head Magnetic [...] questions please contact the health pet care associate that requested your imaging first. ? Electronically signed by: William Edgar [facility] ([phone]), at 08/06/2023 9:14 AM Narrative 08/06/2023 9:14 AM EDT EXAMINATION: MRI [...] have questions please contactthe health pet care associate that requested your imaging first. Electronically signed by: William Edgar [facility]([phone]), at 08/06/2023 9:14 AM Jhonny Dunlap MD IMG MRI ORDERABLES * (ABNORMAL) Differential, Automated (08/05/2023 1:13 AM EDT) Neutrophil % 85.6 % [facility] Neutrophil Absolute 13.60(H) 1.70 - 6.10 x10(3)/mc L [facility] Lymph % 4.2 % [facility] Lymphocytes Abs 0.7(L) 0.9 - 3.2 x10(3)/mc L [facility] Monocyte % 9.5 % [facility] Monocyte Abs 1.5(H) 0.3 - 0.9 x10(3)/mc L [facility] Eos % 0.0 % [facility] Eosinophils Abs 0.0 0.0 - 0.4 x10(3)/mc L [facility] Basophil % 0.1 % [facility] Baso Absolute 0.0 0.0 - 0.1 x10(3)/mc L [facility] Immature Gran % 0.60 % [facility] Comment: Immature granulocytes(IG's)percentage and absolute count will include metamyelocytes, myelocytes, and promyelocytes. Blood smears from CBCs yielding IG's will be scanned manually for concordance. If this scan disagrees with the automated IG or if promyelocytes are noted, a manual differential will be performed. Immature Gran Absolute 0.09(H) 0.00 - 0.04 x10(3)/mc L [facility] Blood 08/05/2023 1:13 AM EDT 08/05/2023 1:19 AM EDT Narrative Resulting Agency Comment Spec In Lab Savana Lion MD HEMATOLOGY ORDERABLE S [facility] [place] [address] * (ABNORMAL) Hemogram (08/05/2023 1:13 AM EDT) White Blood Cell 15.9(H) 4.0 - 9.5 x10(3)/ L [facility] Red Blood Cell 3.61(L) 4.58 - 5.54 x10(6)/mc L [facility] Hemoglobin 10.5(L) 13.7 - 16.5 g/dL [facility] Hematocrit 31.1(L) 40.5 - 48.5 % [facility] Mean Cell Volume 86.1 82.9 - 93.1 fL [facility] Mean Cell Hemoglobin 29.1 27.5 - 32.1 pg [facility] Mean Cell Hemoglobin Concentration 33.8 32.0 - 35.7 g/dL [facility] Platelet 279 145 - 357 x10(3)/ L [facility] RDW Standard Deviation 44.5 36.0 - 45.0 [facility] RDW coefficient of variation 14.3(H) 11.4 - 13.8 % [facility] Mean Platelet Volume 8.9 7.6 - 12.9 fL [facility] NRBC% auto 0.0 % [facility] NRBC Absolute 0.000 0.000 - 0.000 x10(3)/ L [facility] Blood 08/05/2023 1:13 AM EDT 08/05/2023 1:19 AM EDT Narrative Resulting Agency Comment Spec In Lab Savana Lion MD HEMATOLOGY ORDERABLE S Performing Organization Address City/[facility]/ZIP Co de Phone Number [facility] [place] [address] * Phosphorus (08/05/2023 1:13 AM EDT) Phosphorus 4.4 2.5 - 4.5 mg/dL [facility] Blood 08/05/2023 1:13 AM EDT 08/05/2023 1:19 AM EDT Narrative Resulting Agency Comment Spec In Lab Jhonny Dunlap MD CHEMISTRY ORDERABLES Performing Organization Address [facility] Co de Phone Number [facility] [place] [address] * Magnesium (08/05/2023 1:13 AM EDT) Magnesium 0.86 0.69 - 1.07 mmol/L [facility] Blood 08/05/2023 1:13 AM EDT 08/05/2023 1:19 AM EDT Narrative Resulting Agency Comment Spec In Lab Jhonny Dunlap MD CHEMISTRY ORDERABLES Performing Organization Address [facility] Co de Phone Number [facility] [place] [address] * (ABNORMAL) Basic Metabolic Panel (non-fasting) (08/05/2023 1:13 AM EDT) Glucose 116 65 - 199 mg/dL [facility] Comment:Diabetes: >=200 mg/d L plus symptoms Blood Urea Nitrogen 24(H) 10 - 20 mg/dL [facility] Creatinine 1.15 0.80 - 1.50 mg/dL [facility] Sodium 141 135 - 145 mmol/L [facility] Potassium 4.3 3.5 - 5.0 mmol/L [facility] Comment: Please note: ??Patients with WBC >100,000 may have falsely elevated Potassium levels. ??For accurate Potassium quantification in these patients send serum separator tube (gold top) for subsequent determinations. ??Contact the Clinical Chemistry Laboratory if there are any questions. Chloride 107 98 - 107 mmol/L [facility] Carbon Dioxide 21(L) 22 - 31 mmol/L [facility] Anion Gap 13 5 - 15 mmol/L [facility] Calcium 8.8 8.5 - 10.5 mg/dL [facility] Est Glomerular Filtration Rate 64 >=60 mL/min/1. 73 m?? [facility] Comment: This patient's estimated [...] Dunlap MD CHEMISTRY ORDERABLES Performing Organization Address City/State/[facility] Co de Phone Number [facility] [place] [address] * POCT Glucose (08/04/2023 4:30 PM EDT) Glucose, POC 113 65 - 199 mg/dL [facility] Comment: Supplemental ranges: <140 mg/dL before meals <180 mg/dL all other times of the day Blood 08/04/2023 4:30 PM EDT 08/04/2023 4:30 PM EDT Jhonny Dunlap MD POINT [place] [address] * Specimen to Pathology (08/04/2023 2:06 PM EDT) AP Specimen 08/04/2023 2:06 PM EDT 08/04/2023 2:06 PM EDT Narrative [facility] - 08/04/2023 2:06 PM EDT Specimen requisition ordered. ??Separate Pathology report to follow Jhonny Dunlap MD PATHOLOGY/CYTOLOGY O RDERASINGH Performing Organization Address City/[facility]/[place] [address] * Specimen to Pathology (08/04/2023 2:06 PM EDT) AP Specimen 08/04/2023 2:06 PM EDT 08/04/2023 2:06 PM EDT Narrative [facility] - 08/04/2023 2:06 PM EDT Specimen requisition ordered. ??Separate Pathology report to follow Jhonny Dunlap MD PATHOLOGY/CYTOLOGY O RDVIJI Performing Organization Address City/[facility]/[place] [address] * Specimen to Pathology (08/04/2023 2:02 PM EDT) AP Specimen 08/04/2023 2:02 PM EDT 08/04/2023 2:02 PM EDT Narrative [facility] - 08/04/2023 2:02 PM EDT Specimen requisition ordered. ??Separate Pathology report to follow Jhonny Dunlap MD PATHOLOGY/[place] [address] * [facility] Tilley Test-Tilley (08/04/2023 2:01 PM EDT) Misc Tilley Test ? Result ?Flag ??Unit ??RefValue [...] its performance characteristics ?determined by [facility] in a manner consistent with CLIA ?requirements. This test has not been cleared or approved by ?the U.S. Food and Drug Administration. ??Additional Information ? SEE COMMENTS ?REFERENCES ?1. N Engl J Med 2005;352(10):997-100 3 (PMID: [id number]) ?2. Wendi Rev Neurol 2010;6:39-51 (PMID: [id number]) ?3. Lancet Oncol. 2012; 13:707-715 (PMID: [id number]) ?4. Lancet Oncol. 2012; 13: 916-926 (PMID: [id number]) ?5. Wendi Rev Neurol 2014;10:372-385 (PMID: [id number]) ??Specimen ? Tissue, Tumor ??Tissue ID ?[id number] ??Released by ?Kari Mares M.D., Ph.D. ?Test Performed by: ?[facility] ?[address] [place] [address] ?Bad Cloth Checker: Sheri Elise Ph.D.; CLIA# [id number] [facility] Other Other / Unknown 08/04/2023 2 :01 PM EDT 08/19/2023 1:42 PM EDT Narrative Resulting Agency Comment Spec In Lab David Irizarry MD LAB SEND OUT ORDERAB LES Performing Organization Address [facility] Co de Phone Number [facility] [place] [address] * Solid Tumor NGS Panel (08/04/2023 2:01 PM EDT) Tissue 08/04/2023 2:01 PM EDT 08/09/2023 1:39 PM EDT Narrative Resulting Agency Comment Spec In Lab Jhonny Dunlap MD PATHOLOGY/CYTOLOGY O RDERABLES Performing Organization Address [facility] Co de Phone Number [facility] [place] [address] * (ABNORMAL) Surgical Pathology Report (08/04/2023 2:01 PM EDT) Final Diagnosis [id number] ? Location: [facility]; [facility]; A The signing pathologist has (i) examined the relevant preparation(s) for the specimen(s) and (ii) rendered or confirmed the diagnosis(es). . ?Surgical Pathology DIAGNOSIS A - Left temporal tumor, excision ?? 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 Pathologist Performed at: ??-[facility] [place], [place] [address] Forklift Truck Operator: Sona Hernandez MD, [facility], ??CLIA Certificate: [id number] DISCUSSION Hematoxylin and eosin staining of the [...] B1 ??GFAP Highlight reactive brain parenchyma B1,B9 ??[id number] Negative B1 ??ATRX Retained B1 ??p53 approximately [...] Electronically signed by: ?Edie SUNG, PhD, [facility] Verified: ??08/04/2023 14:33 ??Pathologist Performed at: ??-[facility] [place], [place] [address] Forklift Truck Operator: Sona Hernandez MD, [facility], ??CLIA Certificate: [id number] This intraoperative consultation should be interpreted as a preliminary diagnosis pending review of the entire specimen and special studies, if any. A final Surgical Pathology report will follow this preliminary Frozen Section report(s).(A) 08/10/2023 9:04 AM EDT [facility] BRAIN STRUCTURE / Unknown 08/04/2023 2:01 PM EDT 08/04/2023 2:01 PM EDT BRAIN STRUCTURE / Unknown 08/04/2023 2:01 PM EDT 08/04/2023 2:01 PM EDT Jhonny Dunlap MD PATHOLOGY/CYTOLOGY O RDERABLES [facility] [place] [address] * (ABNORMAL) BLOOD GAS 2 VENOUS (08/04/2023 1:40 PM EDT) pH, Venous 7.37 7.32 - 7.42 [facility] PCO2, Venous 35(L) 41 - 51 mmHg [facility] PO2, Venous 186(H) 25 - 40 mmHg [facility] Bicarbonate, Venous 20.0 mmol/L [facility] Base Excess, Venous -5.2 mmol/L [facility] Hgb Blood Gas 11.7(L) 13.7 - 16.5 g/dL [facility] Oxyhemoglobin, Venous 98.9 % [facility] Carboxyhemoglob in, Venous 0.5 % [facility] Comment: Nonsmokers: 0.5-1.5% COHB Smokers: Variable, but usually less than 10% Toxic: 20-30% COHB Lethal: Greater than 60% COHB Methemoglobin, Venous 0.3 <=1.5 % [facility] Na Whole Blood 138 135 - 145 mmol/L [facility] K Whole Blood 3.9 3.5 - 5.0 mmol/L [facility] Comment: Please note: Patients with WBC >100,000 may have falsely elevated Potassium levels. Contact the Clinical Chemistry Laboratory if there are any questions. ICa Whole Blood 1.22 1.15 - 1.33 mmol/L [facility] Comment: Note: ??Total bilirubin higher than 20 mg/dL may lead to falsely low ionized calcium. CL Whole Blood 105 98 - 107 mmol/L [facility] Gluc Whole Bld 99 65 - 199 mg/dL [facility] Comment:Diabetes: >=200 mg/d L plus symptoms Lactate WB 1.8 0.5 - 2.2 mmol/L [facility] Blood Gas Source Venous [facility] Blood 08/04/2023 1:40 PM EDT 08/04/2023 1:40 PM EDT Jhonny Dunlap MD POINT OF CARE TEST O RDERABLES [facility] [place] [address] * Scan Doc: Implantable Devices (08/04/2023 12:00 [...] Site acetaminophen (Ofirmev) (1,000 mg/100 mL) infusion 1,000 mg 1,000 mg, Intravenous, at 400 mL/hr, Administer [...] patient tolerate oral medications or suppositories? Yes Given 08/05/2023 5:15 AM EDT 1,000 mg 400 mL/hr Given 08/04/2023 9:06 PM EDT 1,000 mg 400 mL/hr Given 08/04/2023 5:40 PM EDT 1,000 mg 400 mL/hr acetaminophen (Tylenol) tablet 975 mg 975 mg, Oral, ONCE, 1 dose, On Debbie 08/04/23 at 0930, Administer with a SIP of water only. Maximum dose of acetaminophen is 4,000 mg from all sources in 24 hours., Day of Surgery (Day of Procedure), Routine Given 08/04/2023 9:20 AM EDT 975 mg acetaminophen (Tylenol) tablet 975 mg 975 mg, Oral, EVERY 6 HOURS PRN, Starting on Tue08/05/23 at 1421, Until 08/07/23 at 1811, Pain, Headaches, Maximum dose of acetaminophen is 4,000 mg from all sources in 24 hours. When ordered for pain, acetaminophen should be given even when other ordered pain medications are indicated., Routine Given 08/05/2023 3:41 PM EDT 975 mg atorvastatin (Lipitor) tablet 20 mg 20 mg, Oral, EVERY EVENING, First dose on Debbie 08/04/23 at 1730, Until Discontinued, Routine Given 08/06/2023 5:36 PM EDT 20 mg Given 08/05/2023 4:21 PM EDT 20 mg Given 08/04/2023 5:36 PM EDT 20 mg ceFAZolin (Ancef) 1 g vial attached to sodium chloride 0.9% 50 mL Mini-Bag Plus 1 g, Intravenous, EVERY 8 HOURS, 3 doses, First dose on Tue08/04/23 at 2200, Last dose on Tue08/05/23 at 1400, Administer over 30 Minutes, Indication for (Active or Suspected): Prophylaxis New Bag 08/05/2023 1:41 PM EDT 1 g 100 mL/hr New Bag 08/05/2023 5:44 AM EDT 1 g 100 mL/hr New Bag 08/04/2023 9:06 PM EDT 1 g 100 mL/hr dexAMETHasone (Decadron) tablet 1 mg 1 mg, [...] 4 mg 4 mg, Oral, EVERY 6 HOURS SCHEDULED, First dose on Tue08/04/23 at 1800, Until Discontinued, Routine Given 08/05/2023 5:15 AM EDT 4 mg Given 08/05/2023 12:21 AM EDT 4 mg Given 08/04/2023 5:36 PM EDT 4 mg dexAMETHasone (Decadron) tablet 4 mg 4 mg, Oral, EVERY 6 HOURS SCHEDULED, 4 doses, First dose on Tue08/05/23 at 0700, Last dose on Tue08/06/23 at 0000, Routine Given 08/05/2023 11:04 PM EDT 4 mg Given 08/05/2023 6:24 PM EDT 4 mg Given 08/05/2023 12:32 PM EDT 4 mg dexAMETHasone (Decadron) tablet 4 mg 4 mg, Oral, EVERY 12 HOURS SCHEDULED (2 times per day), 6 doses, First dose on Tue08/06/23 at 0900, Last dose on Tue08/08/23 at 2100, Routine Given 08/07/2023 9: 45 AM EDT 4 mg Given 08/06/2023 8:11 PM EDT 4 mg Given 08/06/2023 9:11 AM EDT 4 mg gadoterate meglumine (Dotarem) (0.5 mMol/mL) injection solution 0-100 mL 0-100 mL, Intravenous, ONCE PRN, 1 dose, Starting on Tue08/05/23 at 2139, Until Tue08/05/23 at 2139, Per Protocol, Radiology Contrast, Routine Given 08/05/2023 9:39 PM EDT 16 mLs HYDROmorphone (Dilaudid) (0.2 mg/1 mL) injection syringe 0.2 mg 0.2 mg, Intravenous, ONCE, 1 dose, On Tue08/05/23 at 0215, Routine Given 08/05/2023 1:21 AM EDT 0.2 mg HYDROmorphone (Dilaudid) tablet 2 mg 2 [...] 40 mg, Oral, DAILY, First dose on Tue08/04/23 at 1730, Until Discontinued, DO NOT CRUSH OR OPEN Given 08/07/2023 9:45 AM EDT 40 mg Given 08/06/2023 9:10 AM EDT 40 mg Given 08/05/2023 8:22 AM EDT 40 mg polyethylene glycoL (Miralax) packet 17 g 17 g, Oral, DAILY, First dose on Tue08/04/23 at 1730, Until Discontinued, Routine Given 08/07/2023 9:47 AM EDT 17 g Given 08/06/2023 9:10 AM EDT 17 g Given 08/05/2023 8:22 AM EDT 17 g psyllium husk 1 packet 1 packet, Oral, DAILY, First dose on Tue08/06/23 at 0900, Until Discontinued, Mix each packet with 8 ounces of water., Routine Given 08/07/2023 9:00 AM EDT 1 packet Given 08/06/2023 9:00 AM EDT 1 packet senna-docusate (Pericolace) 8.6-50 mg per tablet 2 tablet 2 tablet, Oral, 2 TIMES DAILY, First dose on Tue08/04/23 at 2100, Until Discontinued, Hold for loose stool. , Routine Given 08/07/2023 9:46 AM EDT 2 tablets Given 08/06/2023 9:10 AM EDT 2 tablets Given 08/05/2023 8:20 PM EDT 2 tablets sodium chloride 0.9 % (flush) (BD PosiFlush Normal Saline 0.9) flush 5 mL 5 mL, Intravenous, 2 TIMES DAILY, First dose on Tue08/04/23 at 2100, Until Discontinued, Recovery (Recovery-Hospital Unit), Routine Given 08/07/2023 9:00 AM EDT 5 mLs Given 08/06/2023 8:12 PM EDT 5 mLs Given 08/06/2023 9:12 AM EDT 5 mLs documented in this [...] 8 HOURS, 3 doses, First dose on Tue08/04/23 at 2200, Last dose on Tue08/05/23 at [...] Samuel Conti RN)0515 (Given - Provider: Samuel Conti RN) dexAMETHasone (Decadron) tablet 4 mg ()(Linked Group [...] Candy Gray, OSCAR)1824 (Given - Provider: Candy Gary, OSCAR)2304 (Given - Provider: Aditi Cancino, OSCAR) dexAMETHasone (Decadron) tablet 4 mg(Linked Group 1) 4 mg, Oral, EVERY 12 HOURS SCHEDULED (2 times per day), 6 doses, First dose on Tue08/06/23 at 0900, Last dose on Tue08/08/23 at 2100, Routine 09 (Given - Provider: Nathalie Kay RN)2010 (Given - Provider: Aditi Cancino, OSCAR) 09 (Given - Provider: Melinda Calzada RN) HYDROmorphone [...] Kay, OSCAR)2099 (Not Given - Provider: Aditi Cancino RN - Reason: Order parameters not met) 0946 (Given - Provider: Melinda Calzada RN) levETIRAcetam (Keppra) tablet 500 mg 500 mg, Oral, 2 TIMES DAILY, First dose on Tue08/04/23 at 2100, Until Discontinued, Routine 08 (Given - Provider: Candy Gray RN)2019 (Given - Provider: Denise Grayson, RN) 09 (Given - Provider: Nathalie Kay, OSCAR)2011 (Given - Provider: Aditi Cancino, OSCAR) 0945 (Given - Provider: Melinda Calzada RN) levothyroxine (Synthroid) tablet 25 mcg 25 mcg, Oral, EVERY MORNING, First dose on Tue08/05/23 at 0600, Until Discontinued, Routine 0515 (Given - Provider: Samuel Conti, OSCAR) 0613 (Given - Provider: Aditi Cancino, OSCAR) 0510 (Given - Provider: Aditi Cancino, OSCAR) pantoprazole EC (Protonix) tablet 40 mg 40 mg, Oral, DAILY, First dose on Tue08/04/23 at 1730, Until Discontinued, DO NOT CRUSH OR OPEN 0822 (Given - Provider: Candy Gray RN) 0910 (Given - Provider: Nathalie Kay, OSCAR) 0945 (Given - Provider: Melinda Calzada RN) polyethylene glycoL (Miralax) packet 17 g 17 g, Oral, DAILY, First dose on Tue08/04/23 at 1730, Until Discontinued, Routine 0822 (Given - Provider: Candy Gray RN) 0910 (Given - Provider: Nathalie Kay RN) 0947 (Given - Provider: Melinda Calzada RN) [...] not met) 0946 (Given - Provider: Melinda Calzada, OSCAR) sodium chloride 0.9 % (flush) (BD PosiFlush Normal Saline 0.9) flush 5 mL 5 mL, Intravenous, 2 TIMES DAILY, First dose on Debbie 08/04/23 at 2100, Until Discontinued, Recovery (Recovery-Hospital Unit), Routine 08 (Given - Provider: Candy Gray, OSCAR)2019 (Given - Provider: Denise Grayson, OSCAR) 09 (Given - Provider: Nathalie Kay, OSCAR)2011 (Given - Provider: Aditi Cancino, OSCAR) 09 (Given - Provider: Melinda Calzada RN) PRN Medication Order 08/05/2023 08/06/2023 08/07/2023 acetaminophen (Tylenol) tablet 975 mg 975 mg, Oral, EVERY 6 HOURS PRN, Starting on 08/05/23 at 1421, Until 08/07/23 at 1811, Pain, Headaches, Maximum dose of acetaminophen is 4,000 mg from all sources in 24 hours. When ordered for pain, acetaminophen should be given even when other ordered pain medications are indicated., Routine 1541 (Given - Provider: Mickey Velasquez RN) gadoterate meglumine (Dotarem) (0.5 mMol/mL) injection solution 0-100 mL (COMPLETED) 0-100 mL, Intravenous, ONCE PRN, 1 dose, Starting on Tue08/05/23 at 2139, Until Tue08/05/23 at 2139, Per Protocol, Radiology Contrast, Routine 2138 (Given - Provider: Andrei Sifuentes) HYDROmorphone (Dilaudid) tablet 2 mg 2 mg, Oral, EVERY 4 HOURS PRN, Starting on Debbie 08/04/23 at 1729, Until Tue08/07/23 at 1811, Pain, Routine 0022 (Given - Provider: Samuel Conti, OSCAR)0544 (Given - Provider: Samuel Conti, RN)0952 (Given - Provider: Candy Gray RN) lidocaine (Xylocaine) 1% (10 mg/mL) injection 3 mg 3 mg (0.3 mL), Subcutaneous, ONCE PRN, 1 dose, Starting on Tue08/04/23 at 1636, Until Tue08/07/23 at 1811, for discomfort with PIV insertion, Recovery (Recovery-Hospital Unit), Routine sodium chloride 0.9 % (flush) (BD PosiFlush Normal Saline 0.9) flush 5-20 mL 5-20 mL, Intravenous, EVERY 1 MIN PRN, Starting on Tue08/04/23 at 1636, Until Tue08/07/23 at 1811, flush, [...] Last dose on Tue08/14/23 at 2100, Routine Followed by dexAMETHasone (Decadron) tablet 1 mgJump to med 1 mg, Oral, DAILY, 3 doses, First dose on Tue08/15/23 at 0900, Last dose on Tue08/17/23 at 0900, Routine documented in this encounter Care Teams Newspaper Journalist Relationship Specialty Start Date End Date Molina Herr MD [facility] [address] [place] [address] PCP - General 01/27/10 documented as of this encounter
--- OUTSIDE RECORDS SUMMARY | 2023-10-17 15:09 | XMS_ITS | Encounter Summary ---
Author Organization [facility] [place] [address] Care Team Providers Care Sales Representative Facility Services Name Role Phone Molina Herr MD Primary Care Provider [phone] Reason for Visit * Auth/Cert (Routine) Specialty Diagnoses / Procedures Referred By Contac t Referred To Contact Diagnoses Primary osteoarthritis of right knee Right leg pain RIGHT KNEE DJD Procedures PRO ARTHROPLASTY KNEE CONDYLE & PLATEAU MEDIAL & LAT COMPARTMENTS Yohana Fuchs MD [facility] [place] [address] Referral ID Status Reason Start Date Expiration Date Visits Re quested Visits Authorized [id number] 05/18/2023 1 1 Encounter Details Date Type Department Care Team (Late st Contact Info) Description 07/05/2023 8:00 AM EDT - 07/05/2023 10:45 AM EDT Surgery [place] [id number] Yohana Fuchs MD [facility] [place] [address] TOTAL KNEE ARTHROPLASTY (WRVU 19.6) Social History Tobacco Use Types Packs/Day Years Used Date Smoking Tobacco: Never Smokeless Tobacco: Never Alcohol Use Standard Drinks/Week Comments Not Currently 0 (1 standard drink = 0.6 oz pur e alcohol) nothing in a few months DH IPV Inpatient Questions Answer Date Recorded Does Anyone Try to Keep You From Having Contact with Others or Doing Things Outside Your Home? no 07/05/2023 Feels Threatened by Someone no 06/07 Feels Unsafe at Home or Work/School no 07/05/2023 Physical Signs of Abuse Present no 07/05/2023 Sex and Gender Information Value Date Recorded Sex Assigned at Male 02/02/2021 9:04 PM EST Gender Identity Male 02/02/2021 9:04 PM EST Sexual Orientation Not on file documented as of this encounter Last Filed Vital Signs Vital Sign Reading Time Taken Comments Blood Pressure 147/87 07/05/2023 8:20 AM EDT Pulse 69 07/05/2023 8:20 AM EDT Temperature 37 ??C (98.6 ??F) 07/05/2023 6:05 AM EDT Respiratory Rate 14 07/05/2023 8:20 AM EDT Oxygen Saturation 98% 07/05/2023 8:20 AM EDT Inhaled Oxygen Concentration - - Weight 82 kg (180 lb 12.8 oz) 07/05/2023 6:05 AM EDT Height 172.7 cm (5' 8) 07/05/2023 6:05 AM EDT Body Mass Index 27.49 07/05/2023 6:05 AM EDT documented in this encounter Discharge Summaries * Melvin Mauro MD - 07/06/2023 11:19 AM EDT Discharge Summary Patient Name: Perfecto Polk Patient Age: 82 y.o. Language: Luxembourger Race: White Ethnicity: Not nor Admit date: 07/05/2023 Discharge date and time: 07/06/2023 Attending Physician: Yohana Fuchs MD Discharge Physician: Yohana Fuchs MD Follow-up Recommendations for Providers: See discharge instructions for additional details. Future Appointments Date Time Provider Department Center 08/03/2023 9:30 AM [facility] DX ROOM 3 MH Xray [facility] Rad 08/03/2023 10:50 AM Clinic, Dr Fuchs Team [facility] [place] [facility] [facility] Inpatient Provider Contact Information: Yohana Fuchs MD Orthopedics: [phone] After hours and weekends, call [facility] Account Support Analyst, , and have the Orthopedic resident paged. Discharge Diagnoses (Hospital Problems) and Secondary Diagnoses (Chronic Problems): Active Hospital Problems Diagnosis Total knee replacement status Resolved Hospital Problems No resolved problems to display. Active Non-Hospital Problems Diagnosis Acute appendicitis Primary osteoarthritis of left knee (DJD) Osteomyelitis Discitis of lumbar region Lumbar degenerative disc disease Operations/Major Procedures: 07/05/2023 Surgeon(s) and Role: * Yohana Fuchs MD - Primary * Saurav Banks MD - Fellow - Assisting Procedure(s): TOTAL KNEE ARTHROPLASTY (WRVU 19.6) MODIFIER, ATTUNE CURVED ROTATING PLATFORM, DEPUY History of Presentation (a written in op note): Perfecto Polk is a 82 y.o. male who presented to the orthopaedic surgery clinic with severe rightknee pain. The x-ray and exam findings are consistent with osteoarthritis of the right knee. The patient had failed all evidence based non-operative treatments and elected to proceed with surgery. The risks and benefits of operative treatment including bleeding, infection, need for revision, fracture, damage to nerves and blood vessels, hematoma, DVT, PE, and cardiopulmonary complications, and the patient elected to proceed with surgery. I met with the patient prior to surgery in the pre-op holding area and all questions were answered. Informed consent was signed in the clinic during the pre-op visit and the surgical site was marked with a green tejon in the pre-op area. Hospital Course: The patient was admitted via Same Day Surgery for the above operation. DVT prophylaxis: ASA 81mg BID . Patient began rehab on POD#1 w/ weight bearing as tolerated of right leg remembering to use protection at all times for balance and protection. POD#1 patient was voiding spontaneously. Wound inspected POD#1 and found to be benign. Patient did not have a bowel movement prior to discharge but was passing flatus . By POD#1 the patient was medically stable and was cleared for safe discharge to home. OF NOTE: POD#1 Hgb 11.8, down from 12.8 prior to surgery. Hemoglobin drop associated with anemia from a combination of acute blood loss from surgery and hemodilution as expected. The patient was asymptomatic,monitored, vital signs stable, with no intervention warranted. Acute blood loss serially monitored . No intervention required based on symptoms and/or transfusion-based guidelines. Mr. Polk's discharge fortunately was not delayed by this finding. Vital Signs at Discharge: Weight: Wt Readings from Last 1 Encounters: 07/05/23 82 kg (180 lb 12.8 oz) Height: Ht Readings from Last 1 Encounters: 07/05/23 172.7 cm (5' 8) HC: HC Readings from Last 1 Encounters: No data found for HC BMI: Body mass index is 27.49 kg/m??. Exam: General: NAD, awake/alert CV: RRR assessed peripherally Resp: Breathing comfortably on RA RLE: Dressing c/d/i. In cryocuff. Motor intact to EHL, FHL, TA. Sensation intact in foot/calf. Brisk capillary refill distally. Last value Range last 24 hrs Temperature Temp: 37.2 ??C (99 ??F) Temp: [37.1 ??C (98.8 ??F)-38 ??C (100.4 ??F)] Heart Rate Heart Rate: 74 Heart Rate: [64-91] Blood Pressure BP: 108/64 BP: (84-162)/(52-102) Respiratory Rate Resp: 16 Resp: [6-23] SpO2 SpO2: 94 % SpO2: [86 %-100 %] Art BP BP (Arterial Line): -- Functional and Cognitive Status: Patient mobilizing with fww, cognitively intact at baseline mentalstatus at time of discharge. Important Lab Data: Last 3 wbc, hgb, hct plt Recent Labs 07/06/23 0540 06/13/23 1124 06/10/23 1252 WBC 8.2 7.8 5.6 HGB 11.8* 12.8* 12.8* HCT 35.6* 40.5 39.5* PLATELET 230 267 269 Last 3 Lytes Recent Labs 07/06/23 0540 06/13/23 1124 06/10/23 1252 NA 136 141 137 K 4.8 4.3 4.7 CL 101 108* 103 CO2 26 24 23 BUN 21* 20 20 CREATININE 1.16 1.24 1.32 Last 3 LFTs Recent Labs 06/10/23 1252 03/08/23 1155 12/23/22 0814 AST 21 19 17 ALT 16 15 15 ALKPHOS 64 70 60 BILITOT 0.4 0.6 0.2 Last Ca, Mg, Phos Recent Labs 07/06/23 0540 CALCIUM 8.5 Last 3 Coags No results for input(s): PT, INR, PTT in the last 168 hours. Last 3 Lipids Recent Labs 03/08/23 1155 12/23/22 0814 CHLPL 171 159 HDL 51 44 LDLCHOL 98 103 TRIG 110 58 Last 3 HgbA1C Recent Labs 12/23/22 0814 HA1C 5.6 Last CRP, SEDRATENo results for input(s): CRP, SEDRATE in the last 7068 hours. Studies: N/a Pending Studies and Lab Data at Discharge: * No orders in the log * Transfusions: No Discharge Conditions/Prognosis: Stable, awake, and alert. Mobilizing as noted above, pain controlled on oral medications. Discharge to: Home Updated Allergies/ADRs: Allergies Allergen Reactions Penicillins Hives [facility] Penicillin Allergy Risk Assessment 06/13/2023: Low risk penicillin allergy. OK to receive full dose of cefazolin, cefuroxime, or any 3rd or 4th+ generation cephalosporin. Immunizations Given this Hospitalization: Immunization History Administered Date(s) Administered Hepatitis B Unspecified Formulation 05/16/2012, 06/19/2012, 12/04/2012 Influenza (Fluzone HD) Quadrivalent High Dose, Preservative Free 11/29/2019, 11/25/2020, 11/17/2021 Influenza (Fluzone HD) Trivalent High Dose 11/28/2015, 11/17/2016 Influenza (Novel [id number]) Injectable 04/09/2009 Influenza PF, Split 11/30/2011, 11/29/2012, 12/21/2014 Influenza Quadrivalent (FluAd) Adjuvanted 11/24/2022 Influenza Quadrivalent, Preservative Free 11/23/2017, 11/22/2018 Influenza Trivalent w/Preservative 11/28/2013 Influenza Vaccine, Whole 01/07/2008 Moderna (SPIKEVAX) Covid-19 Vaccine 12yrs+ (50mcg) 12/16/2022 Pfizer Covid-19 (Purple Cap) Vaccine (12yrs+) 03/25/2020, 04/17/2020, 12/24/2020 Pfizer Covid-19 Bivalent 12Yrs+ (Rodriguez Cap 30mcg) 11/24/2021 Tuberculin Skin Test, PPD 03/29/2012 Zoster (ShingRix), Recombinant 01/23/2020, 05/15/2020 Discharge Medications: Your Medications New Medications Dose Details polyethylene glycoL 17 gram/dose Powder Commonly known [...] as needed for Pain. 50 mg Quantity: 30 tablet Refills: 0 Continued medications with new dosing Dose Details acetaminophen 500 mg tablet Commonly known as: Tylenol Take 2 tablets by mouth 3 times daily. What changed: medication strength how much to take when to take this reasons to take this 1,000 mg Quantity: 180 tablet Refills: 0 aspirin EC 81 mg EC (DR) tablet Take 1 tablet by mouth 2 times daily. What changed: when to take this 81 mg Quantity: 60 tablet Refills: 0 celecoxib 200 mg capsule Commonly known as: CeleBREX Take 1 capsule by mouth 2 times daily for 42 doses. What changed: how much to take when to take this 200 mg Refills: 0 Continued medications, unchanged Dose Details cholecalciferol (Vitamin D3) 25 mcg (1,000 unit) Capsule Take 1,000 Units by mouth daily. 1,000 Units Refills: 0 ibuprofen 400 mg tablet Commonly known as: Motrin Take 400 mg by mouth every 6 hours as needed for Pain. 400 mg Refills: 0 levothyroxine 25 mcg tablet Commonly known as: Synthroid 25MCG = 1 Tablet(s), PO, Once daily Refills: 0 Lipitor 10 mg tablet Take 20 mg by mouth. Generic drug: atorvastatin 20 mg Refills: 0 sbrqyjjkrzbbt-YI-qrip 200-10 mcg-mg Tablet, Chewable Commonly known as: SOURCE CF Take 1 tablet by mouth daily. 1 tablet Refills: [address] capsule Commonly known as: PriLOSEC Take 20 mg by mouth daily. 20 mg Refills: 4 ubiquinone 100 mg capsule Commonly known as: Ubiquinone Take 200 mg by mouth once. 200 mg Refills: 0 Smoking Status at Discharge: Social History Tobacco Use Smoking Status Never Smokeless Tobacco Never Instructions Given to Patient at Discharge: Patient Instructions Orthopaedic Total Knee Arthroplasty Discharge Instructions Activity: 1. Your weight-bearing status is - weight bearing as tolerated of right leg. 2. Remember to use a walker or crutches as needed for balance and protection. Your physical therapist may progress you to using a cane when appropriate. 3. Flexion AND extension are important to work on at home. You should NOT place a pillow under youroperative knee. To help with extension you can place a pillow under your heel or lower leg or placed lengthwise along the operative leg. Again DO NOT place a pillow under the operated knee for comfort. Anticoagulation: Aspirin - You are being discharged on enteric-coated Aspirin 81 mg by mouth twice a day. Continue this for 30 days after surgery. After your dose on 08/04 stop the Aspirin, unless youare told otherwise by your Orthopedic surgeon. Take this medication with food or large amounts (240mL) of water or milk to minimize GI irritation. Diet: Resume your usual diet but increase your intake of fluids and fiber while you are on narcoticpain meds to prevent constipation. Driving: None until you are cleared to do so by your Orthopedic surgeon. You should not drive whileyou are on narcotic pain meds as they can affect your judgment and reaction time. Call your surgeonwith any questions/concerns. Medications: 1. The pain medication you are on can cause constipation so increase your intake of fluids and fiber while you are on them. The stool softener, Pericolace, that has been prescribed can also be taken to facilitate a bowel movement. You can also take an xrnu-kzc-ccwhhax medication, Miralax if needed to combat constipation. 2. If you need a renewal on your narcotic pain medication, you need to give the Orthopedic clinic enough time to process your request. This can take up to three days, so plan accordingly. 3. Continue acetaminophen (Tylenol) 1,000mg every 8 hours around the clock until 07/14 (for ten daysafter your surgery). This can be effective in controlling pain along with your other medications. After that you can take Tylenol as needed per package insert. Do not take more than 3,000mg of acetaminophen in a 24 hour period. 4. You have been discharged on a short acting narcotic, tramadol. You will be on this medication for a limited period of time only. Take the smallest dose possible to control your pain. As your pain improves take smaller, less frequent doses. You may break the tablet to achieve a smaller dose. 5. You should continue to take your celebrex as prescribed to help with your pain and inflammation.The omeprazole you take should also be continued daily during this time as it will decrease irritation to the lining of your stomach. Shower (internal sutures): 1. You can shower but remember your activity limitations and always have a chair available for balance and protection. DO NOT submerge the dressing/incision. 2. (Mepilex) Do not let water run over the operative dressing. If it becomes wet lightly pat the dressing dry. DO NOT submerge the incision. When this operative dressing is removed you can let water gently run over the incision. Wound (Mepilex): 1. You do NOT have any external guicho or sutures in place. Your sutures are internal and will be absorbed over time. 2. You have a Mepilex dressing in place. Do not lift the edge of the Mepilex dressing to inspect the incision, it will not re-adhere. Remove your operative dressing 7 days after your surgery (07/11). When it is removed you can leave the incision open to air or cover it with a light dressing. Some patients have an additional item called Prineo on their skin. If you have this it will appear as a meshdressing directly over the incision. Please leave this in place until your follow up with orthopedics. 3. If you have lots of drainage when you get home (and it is before 07/11), remove the operative dressing and replace it with dry sterile gauze. Continue with daily dressing changes (and as needed) until the drainage stops, then remove the dressing and leave the incision open to air or lightly covered. Misc: Remember that ICE and elevation are very important after surgery to help decrease swelling and control pain. Use ICE for 20-30 minutes at a time and keep your leg elevated as much as possible. Call your doctor ([phone]) if you develop: Fever greater than 100.5 Severe nausea or vomiting Increasing pain that is not controlled by pain medications Increasing redness, swelling, or drainage from incisions Change in sensation FOLLOW-UP APPOINTMENTS: 1. You will have follow-up appointments at [facility] as indicated below in Future Appointment and Orders. 2. You will need to have x-rays prior to your follow-up appointment on 08/02. Please come to Radiology, desk , 1 hour BEFORE that appointment for those x-rays. Future Appointments Date Time Provider Department Center 08/03/2023 9:30 AM [facility] DX ROOM 3 Xray [facility] Rad 08/03/2023 10:50 AM Clinic, Dr Fuchs Team [address] If you have questions or concerns: Tuesday through Tuesday, 8 AM - 5 PM, please call Dr. Yohana Fuchs MD's office at . If it is after 5 PM, the weekend, or holidays, please call and ask to speak with theOrthopedic resident on-call. General Instructions None Future Appointments and Orders Future Appointments and Orders Future Appointments Provider Department Dept Phone 08/03/2023 9:30 AM [facility] DX ROOM 3 XRay at [facility] Arrive at: Adult Specialist Area [phone] Please go to Adult Specialist Area ([place] Location). 08/03/2023 10:[address] Shila Howell Team Orthopaedics at [facility] Arrive at: Adult Specialist Area [phone] Primary Care Provider: Molina Herr MD [phone] Discharge References/Attachments None documented in this encounter Discharge Instructions * Patient Instructions* Melvin Mauro MD - 07/05/2023 11:18 AM EDT Orthopaedic Total Knee Arthroplasty Discharge Instructions Activity: 1. Your weight-bearing status is - weight bearing as tolerated of right leg. 2. Remember to use a walker or crutches as needed for balance and protection. Your physical therapist may progress you to using a cane when appropriate. 3. Flexion AND extension are important to work on at home. You should NOT place a pillow under youroperative knee. To help with extension you can place a pillow under your heel or lower leg or placed lengthwise along the operative leg. Again DO NOT place a pillow under the operated knee for comfort. Anticoagulation: Aspirin - You are being discharged on enteric-coated Aspirin 81 mg by mouth twice a day. Continue this for 30 days after surgery. After your dose on 08/04 stop the Aspirin, unless youare told otherwise by your Orthopedic surgeon. Take this medication with food or large amounts (240mL) of water or milk to minimize GI irritation. Diet: Resume your usual diet but increase your intake of fluids and fiber while you are on narcoticpain meds to prevent constipation. Driving: None until you are cleared to do so by your Orthopedic surgeon. You should not drive whileyou are on narcotic pain meds as they can affect your judgment and reaction time. Call your surgeonwith any questions/concerns. Medications: 1. The pain medication you are on can cause constipation so increase your intake of fluids and fiber while you are on them. The stool softener, Pericolace, that has been prescribed can also be taken to facilitate a bowel movement. You can also take an wehe-mgz-qrdlfsy medication, Miralax if needed to combat constipation. 2. If you need a renewal on your narcotic pain medication, you need to give the Orthopedic clinic enough time to process your request. This can take up to three days, so plan accordingly. 3. Continue acetaminophen (Tylenol) 1,000mg every 8 hours around the clock until 07/14 (for ten daysafter your surgery). This can be effective in controlling pain along with your other medications. After that you can take Tylenol as needed per package insert. Do not take more than 3,000mg of acetaminophen in a 24 hour period. 4. You have been discharged on a short acting narcotic, tramadol. You will be on this medication for a limited period of time only. Take the smallest dose possible to control your pain. As your pain improves take smaller, less frequent doses. You may break the tablet to achieve a smaller dose. 5. You should continue to take your celebrex as prescribed to help with your pain and inflammation.The omeprazole you take should also be continued daily during this time as it will decrease irritation to the lining of your stomach. Shower (internal sutures): 1. You can shower but remember your activity limitations and always have a chair available for balance and protection. DO NOT submerge the dressing/incision. 2. (Mepilex) Do not let water run over the operative dressing. If it becomes wet lightly pat the dressing dry. DO NOT submerge the incision. When this operative dressing is removed you can let water gently run over the incision. Wound (Mepilex): 1. You do NOT have any external guicho or sutures in place. Your sutures are internal and will be absorbed over time. 2. You have a Mepilex dressing in place. Do not lift the edge of the Mepilex dressing to inspect the incision, it will not re-adhere. Remove your operative dressing 7 days after your surgery (07/11). When it is removed you can leave the incision open to air or cover it with a light dressing. Some patients have an additional item called Prineo on their skin. If you have this it will appear as a meshdressing directly over the incision. Please leave this in place until your follow up with orthopedics. 3. If you have lots of drainage when you get home (and it is before 07/11), remove the operative dressing and replace it with dry sterile gauze. Continue with daily dressing changes (and as needed) until the drainage stops, then remove the dressing and leave the incision open to air or lightly covered. Misc: Remember that ICE and elevation are very important after surgery to help decrease swelling and control pain. Use ICE for 20-30 minutes at a time and keep your leg elevated as much as possible. Call your doctor ([phone]) if you develop: Fever greater than 100.5 Severe nausea or vomiting Increasing pain that is not controlled by pain medications Increasing redness, swelling, or drainage from incisions Change in sensation FOLLOW-UP APPOINTMENTS: 1. You will have follow-up appointments at [facility] as indicated below in Future Appointment and Orders. 2. You will need to have x-rays prior to your follow-up appointment on 08/02. Please come to Radiology, desk 3T, 1 hour BEFORE that appointment for those x-rays. Future Appointments Date Time Provider Department Center 08/03/2023 9:30 AM [facility] DX ROOM 3 MH Xray [facility] Rad 08/03/2023 10:50 AM Clinic, Dr Fucsh Team [facility] ORTH 3D [facility] If you have questions or concerns: Tuesday through Tuesday, 8 AM - 5 PM, please call Dr. Yohana Fuchs MD's office at . If it is after 5 PM, the weekend, or holidays, please call and ask to speak with theOrthopedic resident on-call. documented in this encounter Medications at Time of Discharge Medication Sig Dispensed Refills Start Date End Date acetaminophen (Tylenol) 500 mg tablet Take 2 tablets by mouth 3 times daily. 180 tablet 07/05/2023 ubiquinone (Ubiquinone) 100 mg capsule Take 200 mg by mouth once. omeprazole (PRILOSEC) 20 mg Capsule, Delayed Release(E.C.) Take 20 mg by mouth daily. 4 03/08/2014 sasxnteffpbcf-VQ-kbx c (SOURCE CF) 200-10 mcg-mg Chew Take [...] for up to 30 days. 07/06/2023 08/06/2023 traMADoL (Ultram) 50 mg tablet Take 1 tablet by mouth every 6 hours as needed for Pain. 30 tablet 07/06/2023 07/08/2023 aspirin EC 81 mg EC (DR) tablet Take 1 tablet by mouth 2 times daily. 60 tablet 07/05/2023 08/06/2023 ibuprofen (ADVIL;MOTRIN) 400 mg Tablet Take 400 mg by mouth every 6 hours as needed for Pain. 07/28/2023 Cholecalciferol, Vitamin D3, 1,000 unit Capsule Take 1,000 Units by mouth daily. 07/28/2023 documented as of this encounter Progress Notes * Ericka Almodovar, PT - 07/06/2023 2:54 PM EDT Physical Therapy Evaluation Patient profile: Perfecto Polk is a 82 y.o. male admitted on 07/05/2023 with R knee osteoarthritis. Now s/p R TKA on 07/05/23. Pt admitted from same day 2/2 hypotensive/desaturation episodes and dizziness. Patient with the following active problems: Past Medical History: Diagnosis Date Hyperlipidemia Lumbar degenerative disc disease 08/21/2010 Past Surgical History: Procedure Laterality Date PRO ARTHROPLASTY KNEE CONDYLE & PLATEAU MEDIAL & LAT COMPARTMENTS Right 07/05/2023 TOTAL KNEE ARTHROPLASTY (WRVU 19.6) performed by Yohana Fuchs MD at [facility] MAIN OR PRO COLONOSCOPY, BIOPSY 01/10/2013 COLONOSCOPY FLEXIBLE, WITH BX performed by Dominick Earl MD at [facility] ENDOSCOPY PRO COLONOSCOPY, REMV LESN, SNARE N/A 01/12/2018 COLONOSCOPY, POLYPECTOMY, REMOVAL LESION BY SNARE (WRVU 4.67) performed by Guerda Coombs MD at [facility] ENDOSCOPY PRO COLONOSCOPY, REMV LESN, SNARE N/A 01/20/2023 COLONOSCOPY, POLYPECTOMY, REMOVAL LESION BY SNARE (WRVU 4.57) performed by Guerda Coombs MD at [facility] ENDOSCOPY PRO LAP, APPENDECTOMY N/A 03/09/2017 LAPAROSCOPIC APPENDECTOMY (WRVU 9.45) performed by Saurav Chen MD at [facility] MAIN OR PRO UPPER GI ENDOSCOPY, DIAGNOSTIC N/A 06/11/2021 EGD, UPPER GI ENDOSCOPY performed by Guerda Coombs MD at [facility] ENDOSCOPY Active Non-Hospital Problems Diagnosis Acute appendicitis Primary osteoarthritis of left knee (DJD) Osteomyelitis Discitis of lumbar region Lumbar degenerative disc disease Social History: Patient lives with partner in a single level home with 2+2 GLEN with grab rails. All needs met on the single level. Bathroom has a walk-in shower with grab-bars and shower chair. Baseline ADL/Mobility: Pt is independent with ADLs/IADLs and mobilizes without an AD. Pt's partner is available / as needed. Both pt and partner volunteers at . He enjoys working out at the [employer]: front wheel walker, cane, shower chair, grab bars in shower, grab bars near toilet, crutches, handicap height toilet, electric cryocuff. Precautions/Special Considerations: Hearing aides; WBAT RLE; hypotension post op; titrate O2 for SPO2 >92%. Lines: PIV, vitals monitor Activity Orders: Activity as tolerated Diet: regular Mobility and Positioning Recommendations: Pt. to utilize FWW and supervision for ambulation and transfers with nursing. Elevate RLE without pillows flexing R knee Cryocuff for pain control, prn. Please encourage up to chair for meal times as able. Pt encouraged to ambulate frequently with staff, getting into the bathroom for toileting and walking out in the yang >/= 3 times daily as able. Subjective: ???It feels better to stand and walk. It hurts behind my knee. ?? Objective: Pt seen for evaluation today. Pt initially sitting in the recliner with significant other in the room, when PT entered the room. Pain: (premedicated with dilaudid and celebrex prior to PT) Number Location At rest 8/10 Posterior R knee, especially with extension With activity 8/10 Same, somewhat improved with walking Vital Signs: At Rest With Activity SpO2 (RA) 97% 98% BP 115/59 mmHg seated 113/76 mmHg EOB after standing. 114/74 after bed exercises, seated. 113/79 after gt/stairs, seated HR 78 bpm 89 bpm Mental Status: alert, oriented to person, place, and time Vision: glasses with accountant supervisor corrective lenses. Skin: CDI dressing anterior R knee. RLE swelling, focused at knee but extending proximally and distally. Musculoskeletal: ROM: BUE and LLE AROM grossly wfls for all mobility/functional tasks. R ankle passive DF ~ 0 degrees. R knee ext ~ -30 degrees supine and ~-40 degrees seated. Seated R knee flex ~85-90 degrees. Strength: BUE and LLE strength grossly wfls and grossly 4+/5 or better in major muscle groups sitting. R ankle DF 4/5. Fair/weak isometrics RLE. Unable to SLR RLE without support of UEs. Sensation: Grossly intact BLEs and UE. Denies numbness or paresthesias. Bed Mobility: Supine to Sit: supervision, increased time, 3 pillows, flat bed, R side Sit to Supine: uses UEs to assist RLE into the bed, supervision. Transfers: (bed, recliner and wc) Sit to Stand: supervision and VC, for hand placement on seating surface to rise, demo for proper crutch management. Stand to Sit: same Gait: Distance: ~150' with FWW, ~ 3' to stairs with crutches, and 15' back to room with fww Device used: + gait belt Level of assist: cg initially, progressing to supervision with the FWW, min assist when using the crutches. Gait mechanics: step to gait initially, progressing to reciprocal pattern, short step lengths and heights, slow pace. With crutches, used step to pattern, and increased VC for proper sequence Stairs: up and down 3 stairs with railing and crutch opposite side, cga, VC. Up and down 3 more stairs with crutches only and cg to min assist.. shown how to guard pt with with a gait belt (in front of pt going down and behind him going up). Balance: Sitting Static: wfls Sitting Dynamic: wfls Standing Static: supervision with FWW, min assist with crutches Standing Dynamic / Gait: supervision with FWW and min assist with crutches. Exercises performed: Pt given an ex handout- pre gait. Ankle pumps; added passive R ankle DF with leg machine captain x 3, holding 30 sec; add, glut, quad, and hamsets x 10 each; too sore for SAQs; Seated R knee flex with pillow case interface and LAQs x 10 each. Education: family and patient has been educated on Bed mobility, Transfers, Assistive device/technique, Stairs, Exercise, Positioning, Safety , Precautions/protocol, Gait , Home program, Role of therapy, Balance, and Discharge planning and verbalizes and demonstrates understanding. Patient status, treatment, and mobility recommendations discussed with nursing. Pt left reclined inthe chair with pillow elevating distal RLE, heel free, cryocuff to R knee Assessment: Perfecto Polk was seen today for physical therapy evaluation. Pt is POD 1, HD 2 R TKA. Pt is below his baseline of function and benefited from skilled PT/intervention, given the following: elderly age; post op desaturation and hypotension, now resolved; decreased strength/ROM; Skin imp airments/swelling; mild anemia (11.8 HGB); and resulting limitations in gait, transfers, bed mobility, balance and endurance. Pt is friendly and motivated. His partner is very supportive and able to care for him safely at home. They have all the necessary equipment. Pt given crutches for the stairs, as he has a grab rail on the house but not all the way up the stairs. He knows to use the FWW at all times, until he follows up with his outpt PT, next week and to continue exercises given to him asan inpatient. He also has the force adriana to progress the exercises or wait until he starts outpt PT.Pt is most limited with knee ext ROM and strength. His Knee flexion is better. Pt understands proper stretches and positioning of RLE to improve R knee ext ROM. Should do well as post op pain and swelling decreases. . Inpatient Physical Therapy Plan: for balance training, bed mobility training, gait training, home exercise program, patient/family education, postural re- education, range of motion, stair training, strengthening, and transfer training Discharge Recommendations: Based on current findings- Consult Recommendations: No other consults recommended at this time. Equipment needs: Goals: To be achieved by 07/06/23. Met on 07/06/23 Pt. to demonstrate understanding of appropriate LE exercises with handouts and partner's support. Pt. to perform bed mobility with modified independence. Pt. to perform sit<>stand transfers with supervision using a front wheeled walker. Pt. to ambulate 150 feet with supervision using a a front wheeled walker. Pt. to ambulate up/down 3 step/stairs using axillary crutches or crutch rail with CGA and with min A of partner Family or caregiver to demonstrate understanding of therapeutic interventions to support the care of the patient. Pt will tolerate progression towards upright with stable vital signs. Patient/family understand and agree with plan as stated above. PT Evaluation Code Rationale: Diagnosis & Pertinent Co-Morbidities, personal factors, and present illness affecting Plan of Care: (see above); Additional personal factors or co- morbidities that impact plan: Total # of Factors: 0 1-2 3+ x Examination of body system impairments, functional limitations and behaviors, and/or participation restrictions. Addressing 1-2 elements Addressing 3 + elements Addressing 4 + elements x Clinical presentation: See assessment above. Stable/Uncomplicated Evolving/Fluctuating Symptoms Unstable/Unpredictable x Clinical decision making of low complexity based on pt's functional performance as outlined in thisevaluation. Time IN / OUT: 7057-5186 Total Time: 70 minutes; Low EV, TEF2, TES2 ERICKA ALMODOVAR, PT Pager: [phone] Physical Therapy Inpatient Rehabilitation Department * Yolanda Solano RN - 07/06/2023 2:52 PM EDT Perfecto Polk discharged to Home by private car with . All belongings sent with patient. CHENCHO removed, incision c/d/i, skin free from pressure ulcers. Discharge instructions, medications, and follow-up appointments reviewed, education provided on incision care, pain management, activities, andwhen to call, paper prescriptions given to patient, all questions answered. Patient instructed to call with concerns. * Tammie Garrett OT - 07/06/2023 11:47 AM EDT Occupational Therapy Evaluation Patient profile: Perfecto Polk is a 82 y.o. male admitted on 07/05/2023 with R knee osteoarthritis. Now s/p R TKA on 07/05/23. Past Medical History: Diagnosis Date Hyperlipidemia Lumbar degenerative disc disease 08/21/2010 Past Surgical History: Procedure Laterality Date PRO ARTHROPLASTY KNEE CONDYLE & PLATEAU MEDIAL & LAT COMPARTMENTS Right 07/05/2023 TOTAL KNEE ARTHROPLASTY (WRVU 19.6) performed by Yohana Fuchs MD at [facility] MAIN OR PRO COLONOSCOPY, BIOPSY 01/10/2013 COLONOSCOPY FLEXIBLE, WITH BX performed by Dominick Earl MD at [facility] ENDOSCOPY PRO COLONOSCOPY, REMV LESN, SNARE N/A 01/12/2018 COLONOSCOPY, POLYPECTOMY, REMOVAL LESION BY SNARE (WRVU 4.67) performed by Guerda Coombs MD at [facility] ENDOSCOPY PRO COLONOSCOPY, REMV LESN, SNARE N/A 01/20/2023 COLONOSCOPY, POLYPECTOMY, REMOVAL LESION BY SNARE (WRVU 4.57) performed by Guerda Coombs MD at [facility] ENDOSCOPY PRO LAP, APPENDECTOMY N/A 03/09/2017 LAPAROSCOPIC APPENDECTOMY (WRVU 9.45) performed by Saurav Chen MD at [facility] MAIN OR PRO UPPER GI ENDOSCOPY, DIAGNOSTIC N/A 06/11/2021 EGD, UPPER GI ENDOSCOPY performed by Guerda Coombs MD at [facility] ENDOSCOPY Social History: Patient lives with partner in a single level home with 2+2 GLEN with railing. All needs met on the single level. Bathroom has a walk-in shower with grab-bars and shower chair. Baseline ADL/Mobility: Pt is independent with ADLs/IADLs and mobilizes without an AD. Pt's partner is available 27/09 as needed. Both pt and partner volunteers at . DME: front wheel walker, cane, shower chair, grab bars in shower, grab bars near toilet, crutches Precautions/Special Considerations: fall risk, WBAT BLE, code status: FULL Activity Orders: Activity as tolerated Subjective: my pain feels better with standing Objective: Seen today for OT evaluation. Cognitive Status/Behavior: Behavior / Mood: alert and cooperative Alert and oriented to: person, place, date, and situation Follows commands: 1 step and 100% of the time Attention: WFL Safety awareness: WFL Vision & Perception: corrective lenses accountant supervisor Communication: WFL Hearing: Hard of hearing and Bilateral hearing aids (present) Range of motion, strength, coordination: Hand dominance: right Bilateral UEs are within functional limitations LE limitations: Refer to PT; limited R knee ROM Sensation: mild numbness on the R leg Activities of Daily Living: Self-feeding: set-up; BUE WFL Grooming: stood at the sink to complete oral care and facial hygiene with set-up and CGA; noted with functional flexion of the trunk and utilization of BUE with CGA Dressing: threads (B) legs through the underwear and pants by flexing at the hip with SBA; educated on threading weaker leg first, pt receptive; stood x2 without an AD to hike up the pants with CGA Independent donning/doffing gown and shirt while seated Bathing: NT; recommended shower chair Toileting: NT; has grab-bars nearby Functional Mobility: Sit to stand: Approached pt sitting in the chair; stood with and without AD, CGA Ambulation: ambulated total of ~150 ft using FWW with CGA; no rest-breaks Stand to sit: sat on the chair with cueing on placement of the R knee Balance: Static seated balance: Good, SbA Dynamic seated balance: Good, SbA Static standing balance: Fair, CgA Dynamic standing balance: Fair, Minimal assist Vitals: VSS on RA Pain: reports 8/10 pain on the R knee at rest and with mobility Skin: incision Education: Role of Occupational Therapy, Plan of care , Range of motion , Exercises , Positioning, Safety during ADL's and functional mobility , Discharge planning , and Mobility Patient status, treatment, and mobility recommendations discussed with nursing. Assessment: Pt has been seen for occupational therapy evaluation. Perfecto Polk presents with thefollowing performance skill deficits and client factors: increased pain, decreased activity tolerance, decreased flexibility/ROM, and decreased sitting/standing balance. These performance deficits have led to activity limitations and participation restrictions in the following areas of occupation: dressing, bathing, grooming, toileting, transfers/mobility, and home management. Despite the deficitlisted, pt completed seated/standing ADLs using FWW with CGA; fair+ dynamic standing balance without the UE support. Tolerated ambulating ~150 ft using FWW with CGA, noted with short steps but steadygait. Anticipate quick recovery to reach baseline with ADLs. Recommend discharging home with supervision A when medically ready. Pt would benefit from further inpatient OT interventions to address performance deficits and maximize participation, independence, quality of life, health and wellness, prevention, and safety with activities of daily living. Equipment Needs Upon Discharge (OT): to be determined Consult Recommendations: No other consults recommended at this time Anticipated Discharge Disposition (OT): home with supervision Activity Recommendations: Transfer to recliner chair as appropriate with CGA Sit upright for all meals/meal times OOB to chair for all meals Ambulate as tolerated with CGA-min A, chair follow, FWW Encourage participation in ADL's by providing set up assist on tray table and physical assist only as needed Goals: To be achieved by 07/20/23. Pt will complete toileting routine including transfer to the bathroom, clothing management, and hygiene with supervision assist. Pt will complete 2 grooming tasks standing at the sink with supervision assist. Pt will complete UB and LB bathing in sitting with supervision assist. Pt will complete LB dressing with supervision assist using AE as needed. Pt will ambulate household distance using LRAD and supervision A. Plan: OT: Therapy Frequency (OT): 1-3 more times Planned OT interventions: ADL retraining, Transfers & Functional mobility, Therapeutic exercise, Therapeutic functional activity, Safety during ADL & functional mobility, Activity pacing/energy conservation education/training, and Discharge planning Total Minutes, Occupational Therapy: 29 ((11:15-11:44) EVAL) OT Evaluation Code Rationale: Diagnosis & Pertinent Co-Morbidities affecting Plan of Care: see PMHx Occupational Profile & Client History: Brief Expanded Extensive X Assessment of Occupational Performance: 1-3 performance deficits 3-5 performance deficits X 5 + performance deficits Clinical Decision Making: Low Moderate High X Clinical decision making of moderate complexity using standardized patient assessment instrument and measurable assessment of functional outcome. Pager: [phone] Tammie Garrett OT 07/06/2023 Occupational Therapy Rehabilitation Department * Yolanda Solano RN - 07/06/2023 7:55 AM EDT Orthostatic VS 07/06/23 0744 07/06/23 0746 07/06/23 0748 Adult Vital Signs Temp 37.1 ??C (98.8 ??F) -- -- Temp src Axillary -- -- Heart Rate from SpO2 78 bpm 88 bpm 82 bpm Heart Rate Source Monitor -- -- BP 116/66 100/60 (!) 84/53 MAP (NBP) 83 mmHg 73 mmHg 63 mmHg BP Method Automatic Automatic Automatic BP Location (NBP) Left arm Left arm Left arm Patient Position Lying Sitting (edge of bed) Standing Resp 16 -- -- SpO2 96 % 94 % 93 % Visual Checks Awake;In bed -- -- Oxygen Therapy O2 Device RA RA RA 07/06/23 0753 Adult Vital Signs Temp -- Temp src -- Heart Rate from SpO2 79 bpm Heart Rate Source -- BP 91/52 MAP (NBP) 65 mmHg BP Method Automatic BP Location (NBP) Left arm Patient Position Sitting;Other (see comment) (chair) Resp -- SpO2 93 % Visual Checks -- Oxygen Therapy O2 Device RA * Breanna Molina RN - 07/05/2023 4:57 PM EDT Pt transferred to Room 504 A. Report given to [employer]. All belongings sent with pt. * Melvin Mauro MD - 07/05/2023 4:34 PM EDT ORTHOPAEDIC SURGERY INPATIENT PROGRESS NOTE Patient Name: Perfecto Polk Age: 82 y.o. Surgery/Issue: Right Total Knee Arthroplasty Attending: Dr. Fuchs Date of surgery: 07/05/2023 SUBJECTIVE / INTERVAL HISTORY: AFVSS on 2L nc. Got dizzy in the same day surgery area when getting out of bed and had several episodes of desats to 85% while dozing off. Pain well controlled. Denies CP, SOB, nausea, vomiting, numbness/weakness. FOCUSED REVIEW OF SYSTEMS: as above. Active Hospital Problems Diagnosis Total knee replacement status Resolved Hospital Problems No resolved problems to display. Active Non-Hospital Problems Diagnosis Acute appendicitis Primary osteoarthritis of left knee (DJD) Osteomyelitis Discitis of lumbar region Lumbar degenerative disc disease MEDICATIONS: sodium chloride 0.9 % (flush) (BD PosiFlush Normal Saline 0.9) flush 5-20 mL lactated ringers infusion acetaminophen (Tylenol) tablet 975 mg tranexamic acid (Cyklokapron) (100 mg/mL) infusion 1,000 mg clindamycin (Cleocin) (150 mg/mL) injection 900 mg naloxone (Narcan) (0.4 mg/mL) injection 0.04 mg prochlorperazine (Compazine) (5 mg/mL) injection 5 mg HYDROmorphone (Dilaudid) (2 mg/mL) multi-dose injection solution 0.2 mg OR HYDROmorphone (Dilaudid) (2 mg/mL) multi-dose injection solution 0.4 mg fentaNYL (pf) (50 mcg/mL) multi-dose injection 12.5 mcg OR fentaNYL (pf) (50 mcg/mL) multi-doseinjection 25 mcg PHENYLephrine (Narendra-Synephrine) (80 mcg/mL) in sodium chloride 0.9% 250 mL infusion fentaNYL (PF) (50 mcg/mL) injection 50 mcg povidone-iodine (Betadine Ophthalmic Prep) 5 % ophthalmic solution KGpgbmpmkxe-IVNMOJPlkmx-oipMSQmal-ketorolac (GUERA) (2.46 mg-0.005 mg-0.0008 mg- 0.3 mg/mL) ludivina-articular inj soln in sodium chloride oxyCODONE (Roxicodone) tablet 5 mg oxyCODONE (Roxicodone) tablet 5 mg lactated Ringers 1,000 mL (07/05/23 0619) PHENYLephrine OBJECTIVE: Temp: [36.4 ??C (97.5 ??F)-37 ??C (98.6 ??F)] Heart Rate: [64-137] Resp: [6-29] BP: (104-162)/(61-102) Intake/Output Summary (Last 24 hours) at 07/05/2023 1634 Last data filed at 07/05/2023 1300 Gross per 24 hour Intake 2000 ml Output 475 ml Net 1525 ml Body mass index is 27.49 kg/m??. Exam: General: NAD, awake/alert CV: RRR assessed peripherally Resp: Breathing comfortably on 2L nc RLE: Dressing c/d/i. In cryocuff. Motor intact to EHL, FHL, TA. Sensation intact in foot/calf. Brisk capillary refill distally. Lab Results Component Value Date NA 141 06/13/2023 K 4.3 06/13/2023 CL 108 (H) 06/13/2023 CO2 24 06/13/2023 BUN 20 06/13/2023 CREATININE 1.24 06/13/2023 GLUCOSE 102 06/13/2023 CALCIUM 9.3 06/13/2023 Lab Results Component Value Date WBC 7.8 06/13/2023 HGB 12.8 (L) 06/13/2023 HCT 40.5 06/13/2023 MCV 88.6 06/13/2023 PLATELET 267 06/13/2023 Lab Results Component Value Date INR 1.0 06/13/2023 ASSESSMENT / PLAN: Perfecto Polk is a 82 y.o. male Day of Surgery s/p R TKA. Progressing well with stable vitals. Discharge pending evaluation by PT/OT on POD1. Activity: WBAT RLE Closure: Resorbable sutures Dressing: mepilex for 7 days Anticoagulation: ASA 81 mg BID for 30 days Antibiotics: periop Consults: PT/OT Dispo: pending PT/OT eval Follow-up: as scheduled Melvin Mauro MD 07/05/2023 Future Appointments Date Time Provider Department Center 08/03/2023 9:30 AM [facility] DX ROOM 3 Xray [facility] Rad 08/03/2023 10:50 AM Clinic, Dr Fuchs Team [facility] [place] [facility] [facility] * Chad Peterson RN - 07/05/2023 4:08 PM EDT 1235 Pt started to have slurred speech and was word searching. Pt examined, orientated x3. Pt stated he felt very confused. 1242 anesthesia in room to examine pt. Pt. Responded appropriately to all commands, answering all questions correctly. Pt placed on traffic monitor specialist. Pt observed and reassessed, all responses appropriate. Pt continues to feel less confused. Pt was given pain meds prior to this occurrence, review MAR. * Leonor Kennedy RN - 07/05/2023 3:49 PM EDT Pt admitted to [facility] s/p right TKR, pt is awake, alert on arrival, admits severe pain in right knee. Pt positioned with right calf on pillow, cryocuff filled with ice cold water. Pt given IVP fentanyl,enc to take PO. Pt tolerating PO intake, given oxy PO. Pts pain is persistent despite medications. Anesthesia team notified, ordered additional 5mg oxycodone, PO gabapentin, IVP dilauded. Pt reports pain is only somewhat improving after meds. RN reported off to [employer] [facility] for lunch break. See Morris's note for details. Pt states pain has improved, continues to tolerate PO intake and fluids. Pt enc to rest. Pt noted to drop SpO2 on RA, also having frequent episodes apnea. Pt enc to stand, march in place. Pt c/o persistent light headedness while standing, helped back to bed. Ortho team notified. Pt reassessed afterfurther rest of 30 mins and no change in condition, continues with episodes apnea, is dependent on 2LNC. Ortho notified, will admit pt to obs overnight. documented in this encounter H&P Notes * Saurav Banks MD - 07/05/2023 6:56 AM EDT Admission Note Problem List: There are no hospital problems to display for this patient. Active Non-Hospital Problems Diagnosis Acute appendicitis Primary osteoarthritis of left knee (DJD) Osteomyelitis Discitis of lumbar region Lumbar degenerative disc disease ID: 82 y.o. Male presents to [facility] with right knee osteoarthritis History of Present Illness: HPIFrank's Right knee pain has failed conservative management Review of Systems: Review of Systems 10 pt review of systems performed and negative except for as listed above Past Medical and Surgical History: Past Medical History: Diagnosis Date Hyperlipidemia Lumbar degenerative disc disease 08/21/2010 Past Surgical History: Procedure Laterality Date PRO COLONOSCOPY, BIOPSY 01/10/2013 COLONOSCOPY FLEXIBLE, WITH BX performed by Dominick Earl MD at [facility] ENDOSCOPY PRO COLONOSCOPY, REMV LESN, SNARE N/A 01/12/2018 COLONOSCOPY, POLYPECTOMY, REMOVAL LESION BY SNARE (WRVU 4.67) performed by Guerda Coombs MD at [facility] ENDOSCOPY PRO COLONOSCOPY, REMV LESN, SNARE N/A 01/20/2023 COLONOSCOPY, POLYPECTOMY, REMOVAL LESION BY SNARE (WRVU 4.57) performed by Guerda Coombs MD at [facility] ENDOSCOPY PRO LAP, APPENDECTOMY N/A 03/09/2017 LAPAROSCOPIC APPENDECTOMY (WRVU 9.45) performed by Saurav Chen MD at [facility] MAIN OR PRO UPPER GI ENDOSCOPY, DIAGNOSTIC N/A 06/11/2021 EGD, UPPER GI ENDOSCOPY performed by Guerda Coombs MD at [facility] ENDOSCOPY Prior To Admission Medications: Medications Prior to Admission Medication Sig Dispense Refill Last Dose ubiquinone (Ubiquinone) 100 mg capsule Take 200 mg by mouth once. 07/04/2023 celecoxib (CeleBREX) 200 mg capsule Take 400 mg by mouth daily. Past Week ibuprofen (ADVIL;MOTRIN) 400 mg Tablet Take 400 mg by mouth every 6 hours as needed for Pain. Past Week omeprazole (PRILOSEC) 20 mg Capsule, Delayed Release(E.C.) Take 20 mg by mouth daily. 4 07/04/2023 Cholecalciferol, Vitamin D3, 1,000 unit Capsule Take 1,000 Units by mouth daily. 07/04/2023 kyupoelkgsejj-JX-qyde (SOURCE CF) 200-10 mcg-mg Chew Take 1 tablet by mouth daily. 07/04/2023 aspirin 81 mg EC tablet Take 81 mg by mouth daily. Past Week levothyroxine (SYNTHROID) 25 mcg tablet 25MCG = 1 Tablet(s), PO, Once daily 07/04/2023 atorvastatin (LIPITOR) 10 mg tablet Take 20 mg by mouth. 07/04/2023 acetaminophen (TYLENOL) 325 mg Tablet Take 2 tablets by mouth every 6 hours as needed for Pain. (Patient not taking: Reported on 05/11/2023) 30 tablet 0 Allergies: Allergies Allergen Reactions Penicillins Hives PAT Penicillin Allergy Risk Assessment 06/13/2023: Low risk penicillin allergy. OK to receive full dose of cefazolin, cefuroxime, or any 3rd or 4th+ generation cephalosporin. Family History: Family History Problem Relation Age of Onset Cancer Brother Social History and Habits: Social History Socioeconomic History Marital status: Spouse name: Not on file Number of children: Not on file Years of education: Not on file Highest education level: Not on file Occupational History Not on file Tobacco Use Smoking status: Never Smokeless tobacco: Never Vaping Use Vaping Use: Never used Substance and Sexual Activity Alcohol use: Not [...] file Intimate Partner Violence: Not At Risk (06/13/2023) DH IPV Inpatient Questions Prevent Contact with Others: no Feels Threatened by Someone: no Feels Unsafe at Home: no Physical Signs of Abuse Present: no Housing Stability: Not on file Immunizations: Immunization History Administered Date(s) Administered Hepatitis B Unspecified Formulation 05/16/2012, 06/19/2012, 12/04/2012 Influenza (Fluzone HD) Quadrivalent High Dose, Preservative Free 11/29/2019, 11/25/2020, 11/17/2021 Influenza (Fluzone HD) Trivalent High Dose 11/28/2015, 11/17/2016 Influenza (Novel T7D1-25) Injectable 04/09/2009 Influenza PF, Split 11/30/2011, 11/29/2012, 12/21/2014 Influenza Quadrivalent (FluAd) Adjuvanted 11/24/2022 Influenza Quadrivalent, Preservative Free 11/23/2017, 11/22/2018 Influenza Trivalent w/Preservative 11/28/2013 Influenza Vaccine, Whole 01/07/2008 Moderna (SPIKEVAX) Covid-19 Vaccine 12yrs+ (50mcg) 12/16/2022 Pfizer Covid-19 (Purple Cap) Vaccine (12yrs+) 03/25/2020, 04/17/2020, 12/24/2020 Pfizer Covid-19 Bivalent 12Yrs+ (Rodriguez Cap 30mcg) 11/24/2021 Tuberculin Skin Test, PPD 03/29/2012 Zoster (ShingRix), Recombinant 01/23/2020, 05/15/2020 Physical Exam: Last Set of Vitals and range of vitals over past 24 hours: Last value Range last 24 hrs Temperature Temp: 37 ??C (98.6 ??F) Temp: [37 ??C (98.6 ??F)] Heart Rate Heart Rate: 77 Heart Rate: [77] Blood Pressure BP: 132/81 BP: (132)/(81) Respiratory Rate Resp: 20 Resp: [20] SpO2 SpO2: 95 % SpO2: [95 %] Body mass index is 27.49 kg/m??. Physical Exam Gen: A&Ox3 Cardiac: RR/RR Resp: no respiratory distress Laboratory (Last 24 Hours): No results found for this or any previous visit (from the past 24 hour(s)). Assessment: 82 yo male with right knee osteoarthritis Plan: Proceed with Right TKA as scheduled Saurav Banks MD 07/05/2023 documented in this encounter Miscellaneous Notes * Plan of Care - Yohana Valencia RN - 07/06/2023 3:23 AM EDT OUTCOME EVALUATION NOTE: OUTCOME SUMMARY: Pt A/O x4, 5/5 strengths with slight limited ROM of the right knee. No c/o pain. Dressing CDI with cryo cuff on. PLAN MOVING FORWARD: PT/OT, Discharge home INDIVIDUALIZED FALL PREVENTION INTERVENTIONS:bed alarm Patient-specific fall risk factors per assessment: s/p TKR Assistance: SBA Supervision: Arms reach Surveillance: Bed locked in low position, call lr within reach, purposeful hourly rounding, clutter free environment, bed/chair alarm on, Patient-specific fall prevention interventions for sensory deficits provided: n/a CPG GOAL OUTCOME EVALUATION: Continue care plan as documented. * Plan of Care - Kanwal Gonsalves RN - 07/05/2023 6:56 PM EDT Perfecto Polk arrived to [facility] @ 1730 from Same Day. Oriented to room, call lr within reach, educated on importance of using prior to getting OOB, AVSS, incision on R knee covered with silver mepilex, no significant drainage, belongings updated in eDH, bed locked in low position, purposeful hourly rounding, bed/chair alarm on. Cryocuff present on R knee. Pt swallows pills whole with water. Regular diet; pt only wanted bananafor snack. Pt resting comfortably in bed on 2L NC. * Op Note - Saurav Banks MD - 07/05/2023 9:27 AM EDT [facility] [place] Patient Name: Perfecto Polk : [id number] MR#: [id number] Case Date: 07/05/2023 Surgeon: Surgeon(s) and Role: * Yohana Fuchs MD - Primary * Saurav Banks MD - Fellow - Assisting Preoperative diagnosis: RIGHT KNEE DJD Postoperative diagnosis: * No post-op diagnosis entered * Procedure(s) (LRB): TOTAL KNEE ARTHROPLASTY (WRVU 19.6) (Right) MODIFIER, ATTUNE CURVED ROTATING PLATFORM, DEPUY (N/A) Modifiers: : PA/FITNESS SALES ASSOCIATE executive assistant to president surgeon (no qualified resident available) INDICATIONS: The patient presented to the orthopaedic surgery clinic with severe right knee pain. The x-ray and exam findings are consistent with osteoarthritis of the right knee. The patient had failed all evidence based non-operative treatments and elected to proceed with surgery. The risks and benefits of operative treatment including bleeding, infection, need for revision, fracture, damage to nerves and blood vessels, hematoma, DVT, PE, and cardiopulmonary complications, and the patient elected to proceed with surgery. I met with the patient prior to surgery in the pre-op holding area and all questions were answered. Informed consent was signed in the clinic during the pre-op visit and the surgical site was marked with a green tejon in the pre-op area. DESCRIPTION OF PROCEDURE: PATIENT IDENTIFICATION, POSITIONING AND OPERATIVE SITE PREPARATION: After careful identification of the patient in the holding area and confirmation of the procedure,correct side and site, the patient was transferred to the operating room. Anesthesia was administered by the anesthesiology staff. Adductor canal nerve block had previously been placed in the holding area. Antibiotic prophylaxis was given within the appropriate timeframe. The patient was positioned on the operating room table in the supine position with all pressure points padded and safety restraints placed. Pneumatic compression devices and compression stockings wereplaced when appropriate. The lower extremity was then prepped and draped in the usual sterile fashion. TIME-OUT FOR SAFE SURGERY: Time-out for safe surgery was undertaken and all agreed that the site was correct, procedure was confirmed, allergies, antibiotics, DVT prophylaxis and any other essential medications were confirmed.Imaging needs were confirmed and relevant images were displayed and reviewed with the team. The operative team was engaged throughout and agreed that we should proceed. DETAILS OF THE PROCEDURE: The limb was exsanguinated and tourniquet inflated. Using a #10 blade, a midline skin incision was then carried out. Dissection was carried down to the level of the extensor mechanism. Using a medialparapatellar arthrotomy, the knee joint was then entered. The patient was found to have significantosteoarthritis of all three compartments. The anterior horn of the medial meniscus was divided. A medial subperiosteal peel was then undertaken using Bovie electrocautery. A portion of the patellar fat pad was taken down. The lateral patellofemoral ligaments were released with scissors and cautery. The soft tissue was released circumferentially around the patella to allow for easier eversion. Care was taken to protect the extensor mechanism during this release. The knee was then carefully flexed up. Careful attention was paid to the tibial tubercle to be sure that there was no violation of the patellar tendon insertion as we flexed. The anterior cruciate ligament was then released as well as the anterior horn of the lateral meniscus. The tibia was subluxated forward using a Yao agustin and attention was turned to tibial cut. Theextramedullary tibial alignment guide was placed and set for a 9 mm resection off the less involved(lateral) compartment. The alignment sugar was set in the center of the ankle joint. Appropriate poste rior slope was then set. The guide was then pinned into position. Proximal tibial resection was undertaken using an oscillating saw. Care was taken to protect the medial and lateral collateral ligaments during the cut. The bone was removed and examined to confirm planned resection. We had excellentalignment. Attention was then turned to the femur. The femoral canal was opened using a starting drill just anterior to the PCL insertion. The canal was irrigated and suctioned prior to insertion of the intramedullary guide sugar. This was then placed and set for the appropriate valgus angle of 5 degrees. The distal femoral cut guide was then placed and set for a 9 mm resection. This was then pinned into position. The cut depth was checked with an so wing. The oscillating saw was then used to perform thedistal femoral cut. The extension gap was checked and found to be 10 mm. The gap balancing guide was then placed. The femur was sized and the flexion gap was matched to the previously determined 10 mm extension gap. Theappropriate sized cut block was then pinned into position. The flexion gap was checked with this. The cut depth was checked with an so wing. The anterior cut was performed followed by the posterior cuts. The anterior and posterior chamfer cuts were then performed. Appropriate soft tissue releases were used where necessary to balance them. We then placed the trial femoral component followed by the trial tibia and polyethylene. The knee was brought up to full extension. It was found to have good stability to varus and valgus stresses in both flexion and extension and through the range of motion. We then proceeded with the patellar preparation. The patellar thickness was then measured with caliper. We then used the Attune patellar clamp technique to remove the articular surface. The patella was measured and the appropriate-sized jig used to prepare the drill holes. Patellar trial was placedand caliper measurement reconfirmed to assure that there was no over-stuffing of the patellofemoraljoint. The patellar trial was placed and taken through range of motion. It was found to track well withoutany evidence of liftoff. The trial components were then removed and the final preparation of the tibia was undertaken. The tibia was exposed and the trial placed. It was pinned into position taking care to maintain the appropriate external rotation and adequate tibial coverage. This was then completed using the step drill and broach. All bony surfaces were then thoroughly irrigated using normal saline pulsatile lavage. The components were opened onto the field. Cement mixing was begun on the back table using vacuum technique. We then placed cement onto the tibial component and the tibial plateau and digitally pressurized it into the bone. We then placed the tibial component and impacted into position using an impactor and mallet. Excess cement was removed with a Theodore. The tibial polyethylene insert was impacted into place.We then placed the cement onto the anterior and distal aspects of the femur. The cement was placed on the posterior aspect of the prosthetic condyles. The femoral component was then placed and impacted into position. Excess cement was removed with a Theodore. The polyethylene trial was then placed andthe knee brought out to full extension where it was held for the entire polymerization time. Cementwas then pressurized into the patellar bone and the patellar component placed. The patella was clamped. Excess cement was removed with a Theodore. After all cement had hardened, the knee was flexed up and we checked the posterior femoral condyles for cement. We also subluxated the tibia forward and checked for any remaining cement. It was removed with an osteotome and rongeurs where necessary. 20 cc of 0.25% marcaine with 1:250,000 epinephrine was placed in the meniscal scars and the posterior capsule. The knee was thoroughly irrigated using normal saline pulsatile lavage. It was taken through a fullrange of motion and had excellent stability to varus and valgus testing in both flexion and extension. The final alignment was excellent. The patella tracked well without liftoff using the no thumbstechnique. The wound was irrigated once again. WOUND CLOSURE: The arthrotomy was then closed using #2 Quill. The deep fat layer was closed with 0 Vicryl. The deep dermal layers were closed using 3-0 vicryl. The skin was then closed using monocryl. The wound wascleansed, dried, and dressing consisting of Mepilex silver was applied. This was then secured with Anthony bandages. The patient was awakened by the anesthesiology staff and transferred to the [facility]. Sequential compression devices were placed. INSTRUMENT COUNT: At the conclusion of the procedure, all sponge, sharps, instruments, and other back table items counts were correct as performed by the nursing team indicating that there were no retained objects. EVENTS: There appeared to be no intraoperative complications and the Anesthesia team deemed the patient stable throughout the procedure. FINAL TIMEOUT AND DISPOSITION: The team performed a final timeout confirming procedure, blood loss and specimen if indicated.The patient was taken to the postanesthesia care unit in stable condition. There appeared to be no intraoperative complications. POSTOPERATIVE PLAN: -pain control -wbat RLE -DVT ppx:ASA Discharge home today Saurav Banks MD 07/05/2023 Associated attestation - Yohana Fuchs MD - 07/12/2023 5:13 PM EDT Attestation: Case Date: 07/05/2023 I performed this procedure without the involvement of a resident.Saurav Bansk MD assisted in thissurgery as no qualified resident was available. He worked under my direction for the duration of the operative session. The executive assistant to president adequately prepped the operative site and maintained the best possible exposure of anatomy incident to the procedure. YOHANA FUCHS MD 07/12/2023 documented in this encounter Plan of Treatment Upcoming Encounters Date Type Department Care Team (Late st Contact Info) Description 10/27/2023 11:15 AM EDT Office Visit Palliative Medicine at [place] [id number] Elly Alston MD [facility] [address] HOSPICE AND P[place]IATIVE [place] [address] 10/27/2023 1:00 PM EDT Office Visit Speech Therapy at [place] [address] Debra Franco, HEAD OF SALES PROMOTION 11/03/2023 2:00 PM EDT Office Visit Speech Therapy at [address] Debra Franco, HEAD OF SALES PROMOTION 11/08/2023 2:30 PM EDT Appointment MRI at [address] Navjot Grider MD [facility] [address] HEMATOLOGY [place] [address] 11/09/2023 1:45 PM EDT Office Visit Hematology and Oncology at [address] Isabell Jacob MD [facility] [place] [address] 11/11/2023 10:30 AM EDT Office Visit Radiation Oncology at [address] Nicki Sharpe MD [facility] [address] [place] [address] 11/15/2023 10:00 AM EDT Office [place] [address] Debra Franco, HEAD OF SALES PROMOTION 11/16/2023 9:00 AM EDT Office Visit Hematology [place] [address] Bisi Nam 11/22/2023 10:00 AM EDT Office [place] [address] Debra Franco SLP 11/30/2023 9:00 AM EDT Office Visit Hematology [place] [address] Bisi Nam 12/14/2023 9:00 AM EDT Office Visit Hematology [place] [address] Bisi Nam 12/28/2023 9:00 AM EDT Office Visit H[place]ology [place] [address] Bisi Nam documented as of this encounter Procedures Procedure Name Priority Date/Time Associated Diagnosis Comments HEMOGRAM Routine 07/06/2023 5:40 AM EDT DIFFERENTIAL, AUTOMATED Routine 07/06/2023 5:40 AM EDT CBC (WITH DIFF) Routine 07/06/2023 5:40 AM EDT BASIC METABOLIC PANEL Routine 07/06/2023 5:40 AM EDT EKG 12-LEAD Routine 07/05/2023 1:02 PM EDT Primary osteoarthritis of right knee MODIFIER, ATTUNE CURVED ROTATING PLATFORM, DEPUY Yes 07/05/2023 9:03 AM EDT Primary osteoarthritis of right knee Right leg pain Arthroplasty Knee Condyle & Plateau Medial & Lat Compartments (10675) Yes 07/05/2023 9:03 AM EDT Primary osteoarthritis of right knee Right leg pain TOTAL KNEE ARTHROPLASTY Routine 07/05/2023 5:52 AM EDT Primary osteoarthritis of right knee Right leg pain IMPLANTABLE DEVICES SCAN 07/05/2023 12:00 AM EDT documented in this encounter Results * (ABNORMAL) Differential, Automated (07/06/2023 5:40 AM EDT) Neutrophil % 77.3 % [facility] Neutrophil Absolute 6.31(H) 1.70 - 6.10 x10(3)/mc L [facility] Lymph % 9.8 % [facility] Lymphocytes Abs 0.8(L) 0.9 - 3.2 x10(3)/mc L [facility] Monocyte % 9.7 % [facility] Monocyte Abs 0.8 0.3 - 0.9 x10(3)/mc L [facility] Eos % 2.3 % [facility] Eosinophils Abs 0.2 0.0 - 0.4 x10(3)/mc L [facility] Basophil % 0.5 % [facility] Baso Absolute 0.0 0.0 - 0.1 x10(3)/mc L [facility] Immature Gran % 0.40 % [facility] Comment: Immature granulocytes(IG's)percentage and absolute count will include metamyelocytes, myelocytes, and promyelocytes. Blood smears from CBCs yielding IG's will be scanned manually for concordance. If this scan disagrees with the automated IG or if promyelocytes are noted, a manual differential will be performed. Immature Gran Absolute 0.03 0.00 - 0.04 x10(3)/mc L [facility] Blood 07/06/2023 5:40 AM EDT 07/06/2023 5:47 AM EDT Narrative Resulting Agency Comment Spec In Lab Melvin Mauro MD HEMATOLOGY ORDERABLE S [facility] [place] [address] * (ABNORMAL) Hemogram (07/06/2023 5:40 AM EDT) Pathologist [facility] [place] White Blood Cell 8.2 4.0 - 9.5 x10(3)/ L [facility] Red Blood Cell 4.13(L) 4.58 - 5.54 x10(6)/ L [facility] Hemoglobin 11.8(L) 13.7 - 16.5 g/dL [facility] Hematocrit 35.6(L) 40.5 - 48.5 % [facility] Mean Cell Volume 86.2 82.9 - 93.[address] [facility] Mean Cell Hemoglobin 28.6 27.5 - 32.[address] [facility] Mean Cell Hemoglobin Concentration 33.1 32.0 - 35.7 g/dL [facility] Platelet 230 145 - 357 x10(3)/[facility] RDW Standard Deviation 41.0 36.0 - 45.0 [facility] RDW coefficient of variation 13.0 11.4 - 13.8 % [facility] Mean Platelet Volume 8.8 7.6 - 12.[address] [facility] NRBC% auto 0.0 % [facility] NRBC Absolute 0.000 0.000 - 0.000 x10(3)/[facility] Blood 07/06/2023 5:40 AM EDT 07/06/2023 5:47 AM EDT Narrative Resulting Agency Comment Spec In Lab Melvin Mauro MD HEMATOLOGY ORDERABLE S [facility] [place] [address] * (ABNORMAL) Basic Metabolic Panel (non-fasting) (07/06/2023 5:40 AM EDT) Glucose 114 65 - 199 mg/dL [facility] Comment:Diabetes: >=200 mg/d L plus symptoms Blood Urea Nitrogen 21(H) 10 - 20 mg/dL [facility] Creatinine 1.16 0.80 - 1.50 mg/dL [facility] Sodium 136 135 - 145 mmol/L [facility] Potassium 4.8 3.5 - 5.0 mmol/L [facility] Comment: Please note: ??Patients with WBC >100,000 may have falsely elevated Potassium levels. ??For accurate Potassium quantification in these patients send serum separator tube (gold top) for subsequent determinations. ??Contact the Clinical Chemistry Laboratory if there are any questions. Chloride 101 98 - 107 mmol/L [facility] Carbon Dioxide 26 22 - 31 mmol/L [facility] Anion Gap 9 5 - 15 mmol/L [facility] Calcium 8.5 8.5 - 10.5 mg/dL [facility] Est Glomerular Filtration Rate 64 >=60 mL/min/1. 73 m?? [facility] Comment: This patient's estimated GFR [...] and symptoms in addition to eGFR. Blood 07/06/2023 5:40 AM EDT 07/06/2023 5:47 AM EDT Narrative Resulting Agency Comment Spec In Lab Yohana Fuchs MD CHEMISTRY ORDERABLES [facility] [place] [address] * EKG 12 Lead (07/05/2023 1:02 PM EDT) Ventricular rate 68 BPM MUSE SYSTEM Atrial Rate 68 BPM MUSE SYSTEM P-R Interval 268 ms MUSE SYSTEM QRS Duration 90 ms MUSE SYSTEM Q-T Interval 366 ms MUSE SYSTEM QTC Calculated (Bezet) 389 ms MUSE SYSTEM Calculated P [place] 41 degrees MUSE SYSTEM Calculated R [place] -18 degrees MUSE SYSTEM Calculated T [place] 25 degrees MUSE SYSTEM INTERPRETATION Sinus rhythm with 1st degree A-V block Possible Anterior infarct , age undetermined Abnormal ECG No previous ECGs available Confirmed by MD Joelle, Magdi ([id number]) on 07/05/2023 2:33:35 PM MUSE SYSTEM 07/05/2023 1:02 PM EDT 07/05/2023 2:33 PM EDT Kenya Akins MD ECG ORDERABLES MUSE SYSTEM * SCAN DOC: IMPLANTABLE DEVICES (07/05/2023 12:00 AM EDT) Narrative 07/05/2023 12:00 AM EDT Ordered by an unspecified provider. Scanning Provider MEDIA MGR SCAN EXT O RDR/RSLT documented in this encounter Visit Diagnoses Diagnosis Primary osteoarthritis of right knee Primary localized osteoarthrosis, lower leg Right leg pain Pain in limb Primary osteoarthritis of right knee Primary localized osteoarthrosis, lower leg Right leg pain Pain in limb documented in this encounter Admitting Diagnoses Diagnosis Total knee replacement status Knee joint replacement by other means documented in this encounter Administered Medications Inactive Administered Medications - up to 3 most recent administrations Medication Order MAR Action Action Date Dose Rate Site acetaminophen (Tylenol) tablet 975 mg 975 mg, Oral, ONCE, 1 dose, On Tue07/05/23 at 0615, Administer on arrival in Same Day Program, Day of Surgery (Day of Procedure), Routine Given 07/05/2023 6:34 AM EDT 975 mg acetaminophen (Tylenol) tablet 975 mg 975 mg (rounded from 1,000 mg), Oral, ONCE, 1 dose, On Tue07/05/23 at 1315, Maximum dose of acetaminophen is 4000 mg from all sources in 24 hours. When ordered for pain, acetaminophen should be given even when other ordered pain medications are indicated. , Routine Given 07/05/2023 1:13 PM EDT 975 mg acetaminophen (Tylenol) tablet 975 mg 975 mg, Oral, EVERY 8 HOURS SCHEDULED, First dose on Tue07/05/23 at 2200, Until Discontinued, Maximum dose of acetaminophen is 4,000 mg from all sources in 24 hours. When ordered for pain, acetaminophen should be given even when other ordered pain medications are indicated., Routine Given 07/06/2023 1:56 PM EDT 975 mg Given 07/06/2023 5:41 AM EDT 975 mg Given 07/05/2023 9:08 PM EDT 975 mg aspirin EC tablet 81 mg 81 mg, Oral, 2 TIMES DAILY, First dose on Tue07/05/23 at 2100, Until Discontinued, Routine Given 07/06/2023 9:02 AM EDT 81 mg Given 07/05/2023 9:08 PM EDT 81 mg atorvastatin (Lipitor) tablet 20 mg 20 mg, Oral, EVERY EVENING, First dose on Tue07/05/23 at 1745, Until Discontinued, Routine Given 07/05/2023 6:39 PM EDT 20 mg celecoxib (CeleBREX) capsule 400 mg 400 mg, Oral, ONCE, 1 dose, On Tue07/05/23 at 0615, Administer on arrival to Same Day Program, Day of Surgery (Day of Procedure), Routine Given 07/05/2023 6:34 AM EDT 400 mg celecoxib (CeleBREX) capsule 400 mg 400 mg, Oral, DAILY, First dose on Tue07/06/23 at 1000, Until Discontinued, Routine Given 07/06/2023 9:29 AM E DT 400 mg fentaNYL (PF) (50 mcg/mL) injection 50 mcg 50 mcg, Intravenous, EVERY 5 MIN PRN, Starting on Tue07/05/23 at 0812, Until Tue07/05/23 at 1923, Pain, or prior to injection of local anesthetic., Hold for respiratory rate less than 8 breaths per minute. (maximum dose 200 mcg), Day of Surgery (Day of Procedure), Routine Given 07/05/2023 11:24 AM EDT 50 mcg Given 07/05/2023 8:14 AM EDT 50 mcg fentaNYL (pf) (50 mcg/mL) multi-dose injection 25 mcg 25 mcg, Intravenous, EVERY 5 MIN PRN, Starting on Tue07/05/23 at 1059, Until Tue07/05/23 at 1923, Pain, Moderate to severe pain (6-10 out of 10), Hold for respiratory rate less than 10 per minute. Maximum dose 200 mcg over one hour, including OR administration. If ordered with HYDROmorphone or morphine, give HYDROmorphone or morphine first and use fentaNYL for breakthrough pain., PACU Recovery, Routine Given 07/05/2023 11:35 AM EDT 25 mcg Given 07/05/2023 11:17 AM EDT 25 mcg gabapentin (Neurontin) capsule 300 mg 300 mg, Oral, ONCE, 1 dose, On Tue07/05/23 at 1200, Routine Given 07/05/2023 11:50 AM EDT 300 mg HYDROmorphone (Dilaudid) (2 mg/mL) multi-dose injection solution 0.4 mg 0.4 mg, Intravenous, EVERY 10 MIN PRN, Starting on Tue07/05/23 at 1059, Until Tue07/05/23 at 1923, Pain, For Moderate to Severe Pain (6-10 out of 10), Hold for respiratory rate less than 10 per minute. Maximum dose 3 mg over one hour including administrations in the OR. If multiple pain medications are ordered, start with HYDROmorphone or morphine and use fentaNYL for breakthrough pain., PACU Recovery, Routine Given 07/05/2023 12:17 PM EDT 0.4 mg Given 07/05/2023 12:08 PM EDT 0.4 mg Given 07/05/2023 11:46 AM EDT 0.4 mg HYDROmorphone (Dilaudid) tablet 2 mg 2 mg, Oral, ONCE, 1 dose, On Tue07/06/23 at 0945, Routine Given 07/06/2023 9:07 AM EDT 2 mg HYDROmorphone (Dilaudid) tablet 2 mg 2 mg, Oral, EVERY 4 HOURS PRN, Starting on Tue07/06/23 at 0854, Until Tue07/06/23 at 1655, Pain, mild pain 1-3, Routine HYDROmorphone (Dilaudid) tablet 4 mg 4 mg, Oral, EVERY 4 HOURS PRN, Starting on Tue07/06/23 at 0854, Until Tue07/06/23 at 1655, Pain, moderate pain 4-7, Routine HYDROmorphone (Dilaudid) tablet 6 mg 6 mg, Oral, EVERY 4 HOURS PRN, Starting on Tue07/06/23 at 0854, Until Tue07/06/23 at 1655, Pain, severe pain 8-10, Routine Given 07/06/2023 11:14 AM EDT 6 mg lactated ringers infusion 1,000 mL, at 100 mL/hr, Intravenous, CONTINUOUS, Starting on Tue07/05/23 at 0615, Until Tue07/05/23 at 1923, Day of Surgery (Day of Procedure) New Bag 07/05/2023 6:19 AM EDT 1,000 mLs 100 mL/hr levothyroxine (Synthroid) tablet 25 mcg 25 mcg, Oral, EVERY MORNING, First dose on Tue07/06/23 at 0600, Until Discontinued, Routine Given 07/06/2023 5:41 AM EDT 25 mcg lidocaine (Lidoderm) 5% patch 1 patch 1 patch, Transdermal, Administer over 12 Hours, EVERY 24 HOURS, First dose on Tue07/06/23 at 0930, Until Discontinued, Apply patch(es) for 12 hours, and then remove for 12 hours., Routine Patch Applied 07/06/2023 9:02 AM EDT 1 patch 18- Thigh Posterior (Right) lidocaine (Xylocaine) 1% (10 mg/mL) injection 3 mg 3 mg (0.3 mL), Subcutaneous, ONCE PRN, 1 dose, Starting on Tue07/05/23 at 0557, Until Tue07/05/23 at 0619, for discomfort with PIV insertion, Day of Surgery (Day of Procedure), Routine Given 07/05/2023 6:19 AM EDT 3 mg ondansetron (pf) (Zofran) (2 mg/mL) injection 4 mg 4 mg, Intravenous, EVERY 30 MIN PRN, 2 doses, Starting on Tue07/05/23 at 1059, Until Tue07/05/23 at 1601, Nausea, Maximum total dose of 8 mg (including OR administration). If multiple antiemetics ordered, use ondansetron first and if ineffective use prochlorperazine or haloperidoL second, PACU Recovery Given 07/05/2023 4:01 PM EDT 4 mg Given 07/05/2023 11:33 AM EDT 4 mg oxyCODONE (Roxicodone) tablet 15 mg 15 mg, Oral, EVERY 4 HOURS PRN, Starting on Tue07/05/23 at 1731, Until Tue07/06/23 at 0856, Pain, severe pain 9-10, Routine Given 07/06/2023 7:34 AM EDT 15 mg oxyCODONE (Roxicodone) tablet 5 mg 5 mg, Oral, EVERY 4 HOURS PRN, Starting on Tue07/05/23 at 1115, Until Tue07/05/23 at 1757, Pain, Routine Given 07/05/2023 11:19 AM EDT 5 mg oxyCODONE (Roxicodone) tablet 5 mg 5 mg, Oral, EVERY 3 HOURS PRN, Starting on Tue07/05/23 at 1142, Until Tue07/05/23 at 1757, Pain, Routine Given 07/05/2023 11:47 AM EDT 5 mg pantoprazole EC (Protonix) tablet 40 mg 40 mg, Oral, DAILY, First dose on Tue07/06/23 at 1000, Until Discontinued, DO NOT CRUSH OR OPEN, Routine Given 07/06/2023 9:29 AM EDT 40 mg povidone-iodine (Betadine Ophthalmic Prep) 5 % ophthalmic solution PRN, Starting on Tue07/05/23 at 0958, Until Tue07/06/23 at 1655, Intra-Operative (Intra-Procedure), Routine Given 07/05/2023 9:58 AM EDT 30 mLs 19- Surgical Site [id number] IDine-ketorolac (GUERA) (2.46 mg-0.005 mg-0.0008 mg-0.3 mg/mL) ludivina-articular inj soln in sodium chloride PRN, Starting on Tue07/05/23 at 1018, Until Tue07/06/23 at 1655, Intra-Operative (Intra-Procedure), Routine Given 07/05/2023 10:18 AM EDT 50 mLs 19- Surgical Site senna-docusate (Pericolace) 8.6-50 mg per tablet 2 tablet 2 tablet, Oral, 2 TIMES DAILY, First dose on Tue07/05/23 at 2100, Until Discontinued, Hold for loose stool. , Routine Given 07/06/2023 9:02 AM EDT 2 tablets Given 07/05/2023 9:08 PM EDT 2 tablets sodium chloride 0.9 % (flush) (BD PosiFlush Normal Saline 0.9) flush 5 mL 5 mL, Intravenous, 2 TIMES DAILY, First dose on Tue07/05/23 at 2100, Until Discontinued, Recovery (Recovery-Hospital Unit), Routine Given 07/06/2023 9:06 AM EDT 5 mLs Given 07/05/2023 9:07 PM EDT 5 mLs documented in this encounter Active and Recently Administered Medications Times are shown in EDT. Scheduled Medication Order 07/04/2023 07/05/2023 07/06/2023 acetaminophen (Tylenol) tablet 975 mg (COMPLETED) 975 mg, Oral, ONCE, 1 dose, On Tue07/05/23 at 0615, Administer on arrival in Same Day Program, Day of Surgery (Day of Procedure), Routine 0634 (Given - Provider: Crista Lambert RN) acetaminophen (Tylenol) tablet 975 mg (COMPLETED) 975 mg (rounded from 1,000 mg), Oral, ONCE, 1 dose, On Tue07/05/23 at 1315, Maximum dose of acetaminophen is 4000 mg from all sources in 24 hours. When ordered for pain, acetaminophen should be given even when other ordered pain medications are indicated. , Routine 1313 (Given - Provider: Leonor Kennedy RN) acetaminophen (Tylenol) tablet 975 mg 975 mg, Oral, EVERY 8 HOURS SCHEDULED, First dose on Tue07/05/23 at 2200, Until Discontinued, Maximum dose of acetaminophen is 4,000 mg from all sources in 24 hours. When ordered for pain, acetaminophen should be given even when other ordered pain medications are indicated., Routine 2107 (Given - Provider: Yohana Valencia RN) 0541 (Given - Provider: Yohana Valencia RN)1356 (Given - Provider: Yolanda Solano RN) aspirin EC tablet 81 mg 81 mg, Oral, 2 TIMES DAILY, First dose on Tue07/05/23 at 2100, Until Discontinued, Routine 2107 (Given - Provider: Yoahna Valencia RN) 0902 (Given - Provider: Yolanda Solano RN) atorvastatin (Lipitor) tablet 20 mg 20 mg, Oral, EVERY EVENING, First dose on Tue07/05/23 at 1745, Until Discontinued, Routine 1839 (Given - Provider: Kanwal Gonsalves RN) celecoxib (CeleBREX) capsule 400 mg (COMPLETED) 400 mg, Oral, ONCE, 1 dose, On Tue07/05/23 at 0615, Administer on arrival to Same Day Program, Day of Surgery (Day of Procedure), Routine 0634 (Given - Provider: Crista Lambert RN) celecoxib (CeleBREX) capsule 400 mg 400 mg, Oral, DAILY, First dose on Tue07/06/23 at 1000, Until Discontinued, Routine 09 (Given - Provid er: Yolanda Solano RN) gabapentin (Neurontin) capsule 300 mg (COMPLETED) 300 mg, Oral, ONCE, 1 dose, On Tue07/05/23 at 1200, Routine 1150 (Given - Provider: Leonor Kennedy RN) HYDROmorphone (Dilaudid) tablet 2 mg (COMPLETED) 2 mg, Oral, ONCE, 1 dose, On Tue07/06/23 at 0945, Routine 09 (Given - Provid er: Yolanda Solano RN) levothyroxine (Synthroid) tablet 25 mcg 25 mcg, Oral, EVERY MORNING, First dose on Tue07/06/23 at 0600, Until Discontinued, Routine 0541 (Given - Provid er: Yohana Valencia RN) lidocaine (Lidoderm) 5% patch 1 patch 1 patch, Transdermal, Administer over 12 Hours, EVERY 24 HOURS, First dose on Tue07/06/23 at 0930, Until Discontinued, Apply patch(es) for 12 hours, and then remove for 12 hours., Routine 09 (Patch Applied - Provider: Yolanda Solano RN)1454 (Due: Patch Removed - Provider: Automatic Discharge Provider - Comment: Time automatically adjusted from order being discontinued) pantoprazole EC (Protonix) tablet 40 mg 40 mg, Oral, DAILY, First dose on Tue07/06/23 at 1000, Until Discontinued, DO NOT CRUSH OR OPEN, Routine 09 (Given - Provid er: Yolanda Solano RN) senna-docusate (Pericolace) 8.6-50 mg per tablet 2 tablet 2 tablet, Oral, 2 TIMES DAILY, First dose on Tue07/05/23 at 2100, Until Discontinued, Hold for loose stool. , Routine 2107 (Given - Provider: Yohana Valencia RN) 09 (Given - Provider: Yolanda Solano RN) sodium chloride 0.9 % (flush) (BD PosiFlush Normal Saline 0.9) flush 5 mL 5 mL, Intravenous, 2 TIMES DAILY, First dose on Tue07/05/23 at 2100, Until Discontinued, Recovery (Recovery-Hospital Unit), Routine 2106 (Given - Provider: Yohana Valencia RN) 09 (Given - Provider: Yolanda Solano RN) Continuous Medication Order 07/04/2023 07/05/2023 07/06/2023 lactated ringers infusion (CANCELED) 1,000 mL, at 100 mL/hr, Intravenous, CONTINUOUS, Starting on Tue07/05/23 at 0615, Until Tue07/05/23 at 1923, Day of Surgery (Day of Procedure) 0619 (New Bag - Provider: Crista Lambert RN)192 (Stopped - Provider: Yohana Valencia RN) PRN Medication Order 07/04/2023 07/05/2023 07/06/2023 fentaNYL (PF) (50 mcg/mL) injection 50 mcg (CANCELED) 50 mcg, Intravenous, EVERY 5 MIN PRN, Starting on Tue07/05/23 at 0812, Until Tue07/05/23 at 1923, Pain, or prior to injection of local anesthetic., Hold for respiratory rate less than 8 breaths per minute. (maximum dose 200 mcg), Day of Surgery (Day of Procedure), Routine 08 (Given - Provider: Crista Lambert RN)1124 (Given - Provider: Leonor Kennedy RN) fentaNYL (pf) (50 mcg/mL) multi-dose injection 25 mcg (CANCELED)(Linked Group 1) 25 mcg, Intravenous, EVERY 5 MIN PRN, Starting on Tue07/05/23 at 1059, Until Tue07/05/23 at 1923, Pain, Moderate to severe pain (6-10 out of 10), Hold for respiratory rate less than 10 per minute. Maximum dose 200 mcg over one hour, including OR administration. If ordered with HYDROmorphone or morphine, give HYDROmorphone or morphine first and use fentaNYL for breakthrough pain., PACU Recovery, Routine 1117 (Given - Provider: Leonor Kennedy RN)1135 (Given - Provider: Leonor Kennedy RN) HYDROmorphone (Dilaudid) (2 mg/mL) multi-dose injection solution 0.4 mg (CANCELED)(Linked Group 2) 0.4 mg, Intravenous, EVERY 10 MIN PRN, Starting on Tue07/05/23 at 1059, Until Tue07/05/23 at 1923, Pain, For Moderate to Severe Pain (6-10 out of 10), Hold for respiratory rate less than 10 per minute. Maximum dose 3 mg over one hour including administrations in the OR. If multiple pain medications are ordered, start with HYDROmorphone or morphine and use fentaNYL for breakthrough pain., PACU Recovery, Routine 1146 (Given - Provider: Leonor Kennedy RN)1208 (Given - Provider: Leonor Kennedy RN)1217 (Given - Provider: Chad Peterson RN) HYDROmorphone (Dilaudid) tablet 2 mg(Linked Group 3) 2 mg, Oral, EVERY 4 HOURS PRN, Starting on Tue07/06/23 at 0854, Until Tue07/06/23 at 1655, Pain, mild pain 1-3, Routine 0906 (Not Given - Provider: Yolanda Solano RN - Reason: See comment - Comment: see one time dose)1114 (See Alternative - Provider: Yolanda Solano RN) HYDROmorphone (Dilaudid) tablet 4 mg(Linked Group 3) 4 mg, Oral, EVERY 4 HOURS PRN, Starting on Tue07/06/23 at 0854, Until Tue07/06/23 at 1655, Pain, moderate pain 4-7, Routine 0906 (See Alternativ e - Provider: Yolanda Solano RN)1114 (See Alternative - Provider: Yolanda Solano RN) HYDROmorphone (Dilaudid) tablet 6 mg(Linked Group 3) 6 mg, Oral, EVERY 4 HOURS PRN, Starting on Tue07/06/23 at 0854, Until Tue07/06/23 at 1655, Pain, severe pain 8-10, Routine 0906 (See Alternativ e - Provider: Yolanda Solano RN)1114 (Given - Provider: Yolanda Solano RN) lidocaine (Xylocaine) 1% (10 mg/mL) injection 3 mg (COMPLETED) 3 mg (0.3 mL), Subcutaneous, ONCE PRN, 1 dose, Starting on Tue07/05/23 at 0557, Until Tue07/05/23 at 0619, for discomfort with PIV insertion, Day of Surgery (Day of Procedure), Routine 0619 (Given - Provider: Crista Lambert RN) lidocaine (Xylocaine) 1% (10 mg/mL) injection 3 mg 3 mg (0.3 mL), Subcutaneous, ONCE PRN, 1 dose, Starting on Tue07/05/23 at 1731, Until Tue07/06/23 at 1655, for discomfort with PIV insertion, Recovery (Recovery-Hospital Unit), Routine ondansetron (pf) (Zofran) (2 mg/mL) injection 4 mg (COMPLETED) 4 mg, Intravenous, EVERY 30 MIN PRN, 2 doses, Starting on Tue07/05/23 at 1059, Until Tue07/05/23 at 1601, Nausea, Maximum total dose of 8 mg (including OR administration). If multiple antiemetics ordered, use ondansetron first and if ineffective use prochlorperazine or haloperidoL second, PACU Recovery 1133 (Given - Provider: Leonor Kennedy RN)1601 (Given - Provider: Leonor Kennedy RN) oxyCODONE (Roxicodone) tablet 15 mg (CANCELED)(Linked Group 4) 15 mg, Oral, EVERY 4 HOURS PRN, Starting on Tue07/05/23 at 1731, Until Tue07/06/23 at 0856, Pain, severe pain 9-10, Routine 0734 (Given - Provid er: Yolanda Solano RN) oxyCODONE (Roxicodone) tablet 5 mg (CANCELED) 5 mg, Oral, EVERY 4 HOURS PRN, Starting on Tue07/05/23 at 1115, Until Tue07/05/23 at 1757, Pain, Routine 1119 (Given - Provider: Leonor Kennedy RN) oxyCODONE (Roxicodone) tablet 5 mg (CANCELED) 5 mg, Oral, EVERY 3 HOURS PRN, Starting on Tue07/05/23 at 1142, Until Tue07/05/23 at 1757, Pain, Routine 1147 (Given - Provider: Leonor Kennedy RN - Comment: additional dose given per Dr Akins for 11/14 pain) povidone-iodine (Betadine Ophthalmic Prep) 5 % ophthalmic solution (CANCELED) PRN, Starting on Tue07/05/23 at 0958, Until Tue07/06/23 at 1655, Intra-Operative (Intra-Procedure), Routine 0958 (Given - Provider: Yohana Fuchs MD - Comment: MIXED WITH 500 ML NACL, USED TOPICAL IRRIG) [id number] Dine-ketorolac (UGERA) (2.46 mg-0.005 mg-0.0008 mg-0.3 mg/mL) ludivina-articular inj soln in sodium chloride (CANCELED) PRN, Starting on Tue07/05/23 at 1018, Until Tue07/06/23 at 1655, Intra-Operative (Intra-Procedure), Routine 1018 (Given - Provider: Yohana Fuhcs MD) sodium chloride 0.9 % (flush) (BD PosiFlush Normal Saline 0.9) flush 5-20 mL 5-20 mL, Intravenous, EVERY 1 MIN PRN, Starting on Tue07/05/23 at 1731, Until Tue07/06/23 at 1655, flush, Flush pertains to all indwelling lines. Flush per protocol found in the job aid using the link provided on this medication record., Recovery (Recovery-Hospital Unit), Routine Linked Groups Order Group 1: fentaNYL (pf) (50 mcg/mL) multi-dose injection 12.5 mcg (CANCELED) 12.5 mcg, Intravenous, EVERY 5 MIN PRN, Starting on Tue07/05/23 at 1059, Until Tue07/05/23 at 1923, Pain, Mild to moderate pain (1-5 out of 10), Hold for respiratory rate less than 10 per minute. Maximum dose 200 mcg over one hour, including OR administration. If ordered with HYDROmorphone or morphine, give HYDROmorphone or morphine first and use fentaNYL for breakthrough pain., PACU Recovery, Routine Or fentaNYL (pf) (50 mcg/mL) multi-dose injection 25 mcg (CANCELED)Jump to med 25 mcg, Intravenous, EVERY 5 MIN PRN, Starting on Tue07/05/23 at 1059, Until Tue07/05/23 at 1923, Pain, Moderate to severe pain (6-10 out of 10), Hold for respiratory rate less than 10 per minute. Maximum dose 200 mcg over one hour, including OR administration. If ordered with HYDROmorphone or morphine, give HYDROmorphone or morphine first and use fentaNYL for breakthrough pain., PACU Recovery, Routine Group 2: HYDROmorphone (Dilaudid) (2 mg/mL) multi-dose injection solution 0.2 mg (CANCELED) 0.2 mg, Intravenous, EVERY 10 MIN PRN, Starting on Tue07/05/23 at 1059, Until Tue07/05/23 at 1923, Pain, For Mild to Moderate Pain (1-5 out of 10), Hold for respiratory rate less than 10 per minute. Maximum dose 3 mg over one hour including administrations in the OR. If multiple pain medications are ordered, start with HYDROmorphone or morphine and use fentaNYL for breakthrough pain., PACU Recovery, Routine Or HYDROmorphone (Dilaudid) (2 mg/mL) multi-dose injection solution 0.4 mg (CANCELED)Jump to med 0.4 mg, Intravenous, EVERY 10 MIN PRN, Starting on Tue07/05/23 at 1059, Until Tue07/05/23 at 1923, Pain, For Moderate to Severe Pain (6-10 out of 10), Hold for respiratory rate less than 10 per minute. Maximum dose 3 mg over one hour including administrations in the OR. If multiple pain medications are ordered, start with HYDROmorphone or morphine and use fentaNYL for breakthrough pain., PACU Recovery, Routine Group 3: HYDROmorphone (Dilaudid) tablet 2 mgJump to med 2 mg, Oral, EVERY 4 HOURS PRN, Starting on Tue07/06/23 at 0854, Until Tue07/06/23 at 1655, Pain, mild pain 1-3, Routine Or HYDROmorphone (Dilaudid) tablet 4 mgJump to med 4 mg, Oral, EVERY 4 HOURS PRN, Starting on Tue07/06/23 at 0854, Until Tue07/06/23 at 1655, Pain, moderate pain 4-7, Routine Or HYDROmorphone (Dilaudid) tablet 6 mgJump to med 6 mg, Oral, EVERY 4 HOURS PRN, Starting on Tue07/06/23 at 0854, Until Tue07/06/23 at 1655, Pain, severe pain 8-10, Routine Group 4: oxyCODONE (Roxicodone) tablet 5 mg (CANCELED) 5 mg, Oral, EVERY 4 HOURS PRN, Starting on Tue07/05/23 at 1731, Until Tue07/06/23 at 0856, Pain, mild pain (1-3), Routine Or oxyCODONE (Roxicodone) tablet 10 mg (CANCELED) 10 mg, Oral, EVERY 4 HOURS PRN, Starting on Tue07/05/23 at 1731, Until Tue07/06/23 at 0856, Pain, moderate pain 4-8, Routine Or oxyCODONE (Roxicodone) tablet 15 mg (CANCELED)Jump to med 15 mg, Oral, EVERY 4 HOURS PRN, Starting on Tue07/05/23 at 1731, Until Tue07/06/23 at 0856, Pain, severe pain 9-10, Routine documented in this encounter Care Teams Sales Representative Facility Services Relationship Specialty Start Date End Date Molina Herr MD [facility] [id number] [place] [address] PCP - General 01/27/10 documented as of this encounter
--- OUTSIDE RECORDS SUMMARY | 2023-10-17 15:09 | XMS_ITS | Encounter Summary ---
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 Referral ID Status Reason Start Date Expiration Date Visits Re quested Visits Authorized [id number] 1 1 Encounter Details Date Type Department Care Team (Latest Contact Info) Description 07/25/2023 7:04 PM EDT - 07/25/2023 11:59 PM EDT Hospital [place] [address] Discharge Disposition: Home Social History Tobacco Use Types Packs/Day Years Used Date Smoking Tobacco: Never Smokeless Tobacco: Never Alcohol Use Standard Drinks/Week Comments Not Currently 0 (1 standard drink = 0.6 oz pur e alcohol) nothing in a few months [facility] Inpatient Questions Answer Date Recorded [...] 20 mg by mouth daily. 4 03/08/2014 [id number] c (SOURCE CF) 200-10 mcg-mg Chew Take 1 tablet by mouth daily. 08/04/2010 levothyroxine (SYNTHROID) 25 mcg tablet 25MCG = 1 Tablet(s), PO, Once daily 09/27/2007 atorvastatin (LIPITOR) 10 mg tablet Take 20 mg by mouth. 09/27/2007 cephALEXin (Keflex) 500 mg capsule Take 4 capsules by mouth once as needed (1 hour prior to dental work). 20 capsule 07/22/2023 07/28/2023 HYDROmorphone (Dilaudid) 4 mg tablet Take 0.5 tablets by mouth every 6 hours as needed for Pain. 20 tablet 07/12/2023 07/28/2023 celecoxib (CeleBREX) 200 mg capsule Take 1 [...] daily. 07/28/2023 documented as of this encounter Plan of Treatment Upcoming Encounters Date Type Department Care Team (Late st Contact Info) Description 10/27/2023 11:15 AM EDT Office Visit Palliative Medicine at [place] [address] Elly Alston MD [facility] [address] HOSPICE AND [place] [address] 10/27/2023 1:00 PM EDT Office Visit Speech Therapy at [place] [address] Debra Franco, PLAN NURSE 11/03/2023 2:00 PM EDT Office Visit Speech Therapy at [place] [address] Debra Franco, PLAN NURSE 11/08/2023 2:30 PM EDT Appointment MRI at [place] [address] Navjot Grider MD [facility] [address] HEM[place] [address] 11/09/2023 1:45 PM EDT Office Visit Hematology and Oncology at [place] [address] Isabell Jacob MD [facility] [place] [address] 11/11/2023 10:30 AM EDT Office Visit Radiation Oncology at [place] [address] Nicki Sharpe MD [facility] [place] [address] 11/15/2023 10:00 AM EDT Office Visit Speech Therapy at [place] [phone] Debra Franco, PLAN NURSE 11/16/2023 9:00 AM EDT Office Visit Hematology and Oncology at [facility] [place] [place] [address] Bisi Nam 11/22/2023 10:00 AM EDT Office [place] [address] Debra Franco PLAN NURSE 11/30/2023 9:00 AM EDT Office Visit Hematology [place] [address] Bisi Nam 12/14/2023 9:00 AM EDT Office Visit Hematology and Oncology at [facility] [place] [place] [address] Bisi Nam 12/28/2023 9:00 AM EDT Office Visit Hematology and Oncology at [facility] [place] [place] [address] Bisi Nam documented as of this encounter Procedures Procedure Name Priority Date/Time Associated Diagnosis Comments CRP, ACUTE INFLAMMATION Routine 07/25/2023 4:23 PM EDT HEMOGRAM Routine 07/25/2023 4:23 PM EDT DIFFERENTIAL, AUTOMATED Routine 07/25/2023 4:23 PM EDT GOLD TUBE HOLD Routine 07/25/2023 4:23 PM EDT GOLD TUBE HOLD Routine 07/25/2023 4:23 PM EDT URINALYSIS WITH REFLEX CULTURE Routine 07/25/2023 4:23 PM EDT SEDIMENTATION RATE Routine 07/25/2023 4: 23 PM EDT COMPREHENSIVE METABOLIC PANEL Routine 07/25/2023 4:23 PM EDT documented in this encounter Results * CRP, acute inflammation (07/25/2023 4:23 PM EDT) [facility] C-Reactive Protein <3.0 <=4.9 mg/L [facility] Blood Venous Draw / Unknown 07/25/2023 4:23 PM EDT 07/25/2023 7:32 PM EDT Narrative Resulting Agency Comment Spec In Lab Molina Herr MD CHEMISTRY ORDERABLES Performing Organization Address City/[facility]/ZIP Co de Phone Number [facility] [place] [address] * Gold Tube HOLD (07/25/2023 4:23 PM EDT) [facility] Gold Hold Sample in lab. [facility] Blood Venous Draw / Unknown 07/25/2023 4:23 PM EDT 07/25/2023 7:36 PM EDT Molina Herr MD CHEMISTRY ORDERABLES [facility] [place] [address] * Differential, Automated (07/25/2023 4:23 PM EDT) Pathologist [facility] Neutrophil % 61.1 % [facility] Neutrophil Absolute 4.07 1.70 - 6.10 x10(3)/[facility] Lymph % 21.7 % [facility] Lymphocytes Abs 1.4 0.9 - 3.2 x10(3)/[facility] Monocyte % 9.8 % [facility] Monocyte Abs 0.6 0.3 - 0.9 x10(3)/[facility] Eos % 6.0 % [facility] Eosinophils Abs 0.4 0.0 - 0.4 x10(3)/[facility] Basophil % 1.1 % [facility] Baso Absolute 0.1 0.0 - 0.1 x10(3)/[facility] Immature Gran % 0.30 % [facility] Comment: Immature granulocytes(IG's)percentage and absolute count will include metamyelocytes, myelocytes, and promyelocytes. Blood smears from CBCs yielding IG's will be scanned manually for concordance. If this scan disagrees with the automated IG or if promyelocytes are noted, a manual differential will be performed. Immature Gran Absolute 0.02 0.00 - 0.04 x10(3)/[facility] Blood Venous Draw / Unknown 07/25/2023 4:23 PM EDT 07/25/2023 7:34 PM EDT Narrative Resulting Agency Comment Spec In Lab Molina Herr MD HEMATOLOGY ORDERABLE S [facility] [place] [address] * (ABNORMAL) Hemogram (07/25/2023 4:23 PM EDT) White Blood Cell 6.6 4.0 - 9.5 x10(3)/mc L [facility] Red Blood Cell 3.72(L) 4.58 - 5.54 x10(6)/mc L [facility] Hemoglobin 10.4(L) 13.7 - 16.5 g/dL [facility] Hematocrit 32.6(L) 40.5 - 48.5 % [facility] Mean Cell Volume 87.6 82.9 - 93.1 fL [facility] Mean Cell Hemoglobin 28.0 27.5 - 32.1 pg [facility] Mean Cell Hemoglobin Concentration 31.9(L) 32.0 - 35.7 g/dL [facility] Platelet 396(H) 145 - 357 x10(3)/mc L [facility] RDW Standard Deviation 44.7 36.0 - 45.0 fL [facility] RDW coefficient of variation 14.0(H) 11.4 - 13.8 % [facility] Mean Platelet Volume 9.5 7.6 - 12.9 fL [facility] NRBC% auto 0.0 % [facility] NRBC Absolute 0.000 0.000 - 0.000 x10(3)/mc L [facility] Blood Venous Draw / Unknown 07/25/2023 4:23 PM EDT 07/25/2023 7:34 PM EDT Narrative Resulting Agency Comment Spec In Lab Molina Herr MD HEMATOLOGY ORDERABLE S Performing Organization Address City/[facility]/ZIP Co de Phone Number [facility] [place] [address] * (ABNORMAL) Sedimentation rate (07/25/2023 4:23 PM EDT) Sedimentation Rate Automated 62(H) 3 - 46 mm/hr [facility] Comment: Effective February 14, 2019 [...] MD HEMATOLOGY ORDERABLE S Performing Organization Address City/[facility]/ZIP Co de Phone Number [facility] [place] [address] * Gold Tube HOLD (07/25/2023 4:23 PM EDT) Gold Hold Sample in lab. [facility] Blood Venous Draw / Unknown 07/25/2023 4:23 PM EDT 07/25/2023 7:29 PM EDT Molina Herr MD CHEMISTRY ORDERABLES [facility] [place] [address] * Urinalysis with reflex Culture (07/25/2023 4:23 PM EDT) Glucose, Urine Dipstick Negative Negative mg/dL [facility] Protein, Urine Dipstick Negative Negative mg/dL [facility] Bilirubin, Urine Dipstick Negative Negative mg/dL [facility] Comment: Clinical correlation required for positive Urine Bilirubin results as false positive may occur with some drugs and drug related products. If a false positive is suspected a serum total bilirubin should be considered if clinically indicated. Urobilinogen, Urine Dipstick Normal Normal mg/dL [facility] pH, Urn (dipstick) 6.0 5.0 - 8.0 [facility] Blood, Urine Dipstick Negative Negative mg/dL [facility] Ketone, Urine Dipstick Negative Negative mg/dL [facility] Nitrite, Urine Dipstick Negative Negative [facility] Leukocytes, Urine Dipstick Negative Negative [facility] Appearance, Urine Dipstick Clear Clear [facility] Specific [place] Urine Automated 1.022 1.005 - 1.030 [facility] Color, Urine Dipstick Yellow Yellow [facility] Reflex to Culture No [facility] Clean Catch Urine Urine / Unknown 07/25/2023 4:23 PM EDT 07/25/2023 7:32 PM EDT Narrative Resulting Agency Comment Spec In Lab Molina Herr MD [place] [address] * (ABNORMAL) Comprehensive metabolic panel (non-fasting) (07/25/2023 4:23 PM EDT) Glucose 104 65 - 199 mg/dL [facility] Comment:Diabetes: >=200 mg/d L plus symptoms Blood Urea Nitrogen 22(H) 10 - 20 mg/dL [facility] Creatinine 1.39 0.80 - 1.50 mg/dL [facility] Sodium 135 135 - 145 mmol/L [facility] Potassium 4.0 3.5 - 5.0 mmol/L [facility] Comment: Please note: ??Patients with WBC >100,000 may have falsely elevated Potassium levels. ??For accurate Potassium quantification in these patients send serum separator tube (gold top) for subsequent determinations. ??Contact the Clinical Chemistry Laboratory if there are any questions. Chloride 102 98 - 107 mmol/L [facility] Carbon Dioxide 25 22 - 31 mmol/L [facility] Anion Gap 8 5 - 15 mmol/L [facility] Calcium 9.5 8.5 - 10.5 mg/dL [facility] Protein, Total 6.8 6.1 - 8.0 g/dL [facility] Albumin 4.1 3.2 - 5.2 g/dL [facility] Aspartate Aminotransferase 17 0 - 39 unit/L [facility] Alanine Aminotransferase 15 0 - 55 unit/L [facility] Alkaline Phosphatase 74 40 - 130 unit/L [facility] Bilirubin, Total 0.3 0.2 - 1.3 mg/dL [facility] Est Glomerular Filtration Rate 51(L) >=60 mL/min/1. 73 m?? [facility] Comment: This patient's estimated [...] and symptoms in addition to eGFR. Blood Venous Draw / Unknown 07/25/2023 4:23 PM EDT 07/25/2023 7:32 PM EDT Narrative Resulting Agency Comment Spec In Lab Molina Herr MD CHEMISTRY ORDERABLES [facility] [address] documented in this encounter Visit Diagnoses Not on filedocumented in this encounter Care Teams Cherry Sorter Relationship Specialty Start Date End Date Molina Herr MD [address] [address] [place] [address] PCP - General 01/27/10 documented as of this encounter
--- OUTSIDE RECORDS SUMMARY | 2023-10-17 15:09 | XMS_ITS | Encounter Summary ---
[place] [address] Care Team Providers Care Wrecking Car Driver Name Role Phone Molina Herr MD Primary Care Provider [phone] Reason for Referral * Physical Therapy (Routine) - Authorized Specialty Diagnoses / Procedures Referred By Contjessie t Referred To Contact Physical Therapy Diagnoses Primary osteoarthritis of right knee Ernie Fuchs MD [facility] [place] [address] Referral ID Status Reason Start Date Expiration Date Visits Requested Visits Authorized [id number] Authorized Evaluate and Treat 06/01/2023 11/28/2023 12 12 Reason for Visit * Reason Comments Pre-op Exam 06/28/2023 RIGHT TKA Encounter Details Date Type Department Care Team (Latest Contact Info) Description 06/01/2023 11:20 AM EDT Office [place] [phone] Clinic, Dr Fuchs Team None Primary osteoarthritis of right knee Social History Tobacco Use Types Packs/Day Years Used Date Smoking Tobacco: Never Smokeless Tobacco: Never Alcohol Use Standard Drinks/Week Comments Not Currently 0 (1 standard drink = 0.6 oz pur e alcohol) nothing in a few months Sex and Gender Information Value Date Recorded Sex Assigned at Male 02/02/2021 9:04 PM EST Gender Identity Male 02/02/2021 9:04 PM EST Sexual Orientation Not on file documented as of this encounter Last Filed Vital Signs Vital Sign Reading Time Taken Comments Blood Pressure 136/81 06/01/2023 11:20 AM EDT Pulse 67 06/01/2023 11:20 AM EDT Temperature - - Respiratory Rate - - Oxygen Saturation - - Inhaled Oxygen Concentration - - Weight 83.5 kg (184 lb) 06/01/2023 11:20 AM EDT with shoes Height 175.3 cm (5' 9) 06/01/2023 11:20 AM EDT Body Mass Index 27.17 06/01/2023 11:20 AM EDT documented in this encounter Progress Notes * Ernie Fuchs MD - 06/01/2023 11:20 AM EDT Images from the original note were not included. Arthroplasty History/Previous Orthopaedic Surgery: Right knee arthroscopy 1988 This note is recorded by LOWELL Ring acting as a scribe for Dr. Deshawn Fuchs. PREOPERATIVE VISIT Interval History: Perfecto Polk is a pleasant 82 y.o. year old male being seen today to discuss a right total knee replacement. His history was once again discussed and is outlined in a previous note. They have reviewed their options and at this point are expressing a desire to proceed with surgery. Physical Exam: Exam is previously documented in a note and is essentially unchanged. Knee Exam: Range of motion 0-115o. Inspection of his skin on the operative side demonstrates No skin breakdown or open wounds. 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 Relevant Lab Studies Lab Results Component Value Date WBC 4.6 12/23/2022 HGB 12.6 (L) 12/23/2022 HCT 40.0 (L) 12/23/2022 PLATELET 274 12/23/2022 CREATININE 1.21 03/08/2023 BUN 20 03/08/2023 NA 142 03/08/2023 K 4.3 03/08/2023 CRP 0.5 2010 SEDRATE 12 2010 INR 1.1 08/04/2010 Recent Labs 12/23/22 0814 HA1C 5.6 No results for input(s): ALBUMIN in the last 168 hours. CrCl cannot be calculated (Patient's most recent lab result is older than the maximum 30 days allowed.). TJA Clotting and Bleeding Assessment Genetic predisposition or history of DVT or PE: No Hypercoaguable state?: No History of bleeding disorder?: No GI bleed or history of hemorrhagic stroke within the past 2 years: No Patient on lifelong anticoagulant for other reasons: Other, see comment (preventative) Discharge anticoagulation plan: ASA 81mg BID for 30 days Infection Prevention Patient demonstrated appropriate skin integrity/infection knowledge level after instructions provided: Yes Patient demonstrated appropriate dental prophylaxis knowledge level after instructions provided: Yes Patient demonstrated appropriate understanding of chlorhexideine wash and mupirocin ointment: Yes General Assessment Total joint preparedness for surgery: 1:1, Force Online Patient understands when to call the office pre-op and post-op: Verbalizes understanding Assistive device(s) used pre-op: None Patient currently on narcotics: No Patient has narcotic agreement signed: No Assessment and Plan: This is a pleasant 82 y.o. year-old male who presents for a preoperative appointment today for consideration of a right total knee replacement. We had a discussion regarding the risks and benefits ofsurgery. I indicated that in my opinion, this is a treatment option most likely to restore a more normal, pain- free level of function and that we have exhausted reasonable non-operative alternatives.I discussed how I perform the procedure and all of their questions were answered. We discussed the risks of a total knee arthroplasty: Bleeding, infection, scar formation, dislocation, leg length inequality, persistent pain, stiffness, bursitis, failure/wear/loosening/breakage of implants, implant malposition, need for additional/future surgery, fracture, clot formation, embolus, stroke, nerve palsy, blood vessel injury, skin numbness, anesthetic and/or medical complications, . We reviewed options for postoperative DVT prophylaxis, based on AAOS guidelines. We discussed the pros and cons of different anticoagulants in terms of effectiveness and clot / embolus preventions vs. risks of bleeding and wound complications. We also reviewed their preferences regarding use of blood products and confirmed that while we would endeavor to minimize the risks of needing any transfusions, if circumstances were such that one ormore were indeed required, he would NOT refuse a blood transfusion. Perfecto Polk will be prescribed a prescription opioid for the treatment of acute post-operative pain related to orthopedic surgery. Perfecto Polk was advised to take the smallest dose possible to control their pain and as their pain improves to take smaller doses and increase the time between doses. The Acute Opioid Therapy Informed Consent form has been completed and sent to medical records for scanning to chart. No data to display No data to display In addition to this medication, non-opioid medications will be prescribed for adjunct treatment of their pain. Non-pharmacological treatment such as ice, elevation and activity modification was recommended as appropriate. The AAOS guidelines for dental procedures were reviewed with the patient. They were advised that nodental work should be performed for a minimum of two weeks prior to surgery. Additionally, no elective dental work, including cleanings, should be done for 6 months after surgery. If urgent dental work is required within six months, the patient understands to contact our office as we will prescribea prophylactic antibiotic, to be taken before the dental procedure. Perfecto Polk was instructed to administer Mupirocin into the nares twice daily starting 5 days prior to surgical date. Additional instructions were given to him at the time the medication was dispensed. He was also given chlorhexidine soap to use the night before and the morning of surgery. We discussed with the patient the possible discharge scenarios. The patient will require VNA services post-op: no, patient will discharge home with outpatient PT scheduled within 3-5 days post operatively. Prep for Surgery Advance Directive: Does not have one (does not want to fill out) Recommend referral to Patient Financial Services: No Living arrangement: House Home layout: One level Number of stairs within home: 4 Who will provide post-op care and support: Ella Who will provide transportation home: Ella Mohamud Patient's desired discharge disposition: Home with outpatient PT The patient prefers two-wheeled walker to help with post-operative ambulation. The patient has a walker and will bring it to surgery. Recommendations from perioperative orthopaedic providers: Pending, see note We will plan to use IV TXA Planned Implant: DePuy Attune CR Type and Screen: No Activity goals to return to after surgery:Biking, hiking, swimming, getting out bed easier Post operative orthopaedic anti-coagulation plan: ASA 81 mg BID for 30 days Chronic anti-coagulation: yes, preventative Does patient have metal allergy? No Expedited Discharge Candidate?: YES and would like to pursue expedited recovery. We discussed using Celebrex while in house. Upon discharge we will give the patient Naprosyn to take for 6 weeks after surgery for post-operative pain management. Any remaining questions were solicited from the patient and answered. Mr. Polk wishes to proceed accordingly and informed consent was subsequently obtained for a right total knee replacement. I have personally evaluated the patient and agree with the above note as recorded by LOWELL Ring MD 06/01/2023 documented in this encounter Plan of Treatment Upcoming Encounters Date Type Department Care Team (Late st Contact Info) Description 10/27/2023 11:15 AM EDT Office Visit Palliative Medicine at [place] [phone] Elly Alston MD [facility] HOSPICE AND [place] [address] 10/27/2023 1:00 PM EDT Office [place] [address] Debra Franco DINING ROOM ATTENDANT [place] 11/03/2023 2:00 PM EDT Office [place] [address] Debra Franco, DINING ROOM ATTENDANT [place] 11/08/2023 2:30 PM [place] [phone] Navjot Grider MD [facility] [address] HEMATOLOGY [place] [address] 11/09/2023 1:45 PM EDT Office Visit Hematology and Oncology at [place] [phone] Isabell Jacob MD [facility] [place] [address] 11/11/2023 10:30 AM EDT Office Visit Radiation Oncology at [address] Nicki Sharpe MD [facility] DR RADIATION [place] [address] 11/15/2023 10:00 AM EDT Office [place] [address] Debra Franco, DINING ROOM ATTENDANT [place] 11/16/2023 9:00 AM EDT Office Visit Hematology [place] [address] Bisi Nam 11/22/2023 10:00 AM EDT Office [place] [address] Debra Franco, DINING ROOM ATTENDANT [place] 11/30/2023 9:00 AM EDT Office Visit Hematology [place] [address] Bisi Nam 12/14/2023 9:00 AM EDT Office Visit [place]ology [place] [address] Bisi Nam 12/28/2023 9:00 AM EDT Office Visit [place] [address] Bisi Nam Scheduled Referrals Name Type Priority Associated Diagnoses Orde r Schedule Referral to Physical Therapy Outpatient Referral Routine Primary osteoarthritis of right knee Ordered: 06/01/2023 documented as of this encounter Visit Diagnoses Diagnosis Primary osteoarthritis of right knee Primary localized osteoarthrosis, lower leg documented in this encounter Care Teams Wrecking Car Driver Relationship Specialty Start Date End Date Molina Herr MD [facility] [address] [place] [address] PCP - General 01/27/10 documented as of this encounter
--- OUTSIDE RECORDS SUMMARY | 2023-10-17 15:09 | XMS_ITS | Encounter Summary ---
[place] [address] Care Team Providers Care Higher Education Administrator Name Role Phone Molina Herr MD Primary Care Provider [phone] Encounter Details Date Type Department Care Team (Late st Contact Info) Description 07/25/2023 [place] [address] Laisha Peters MD [facility] [place] [address] Social History Tobacco Use Types Packs/Day Years Used Date Smoking Tobacco: Never Smokeless Tobacco: Never Alcohol Use Standard Drinks/Week Comments Not Currently 0 (1 standard drink = 0.6 oz pur e alcohol) nothing in a few months [facility] Inpatient Questions Answer Date Recorded Does Anyone [...] AM EDT Office Visit Palliative Medicine at [place] [address] Elly Alston MD [facility] HOSPICE [place] [address] 10/27/2023 1:00 PM EDT Office Visit Speech Therapy at [place] [address] Debra Franco, [employer] P[employer] LAYER HELPER 11/03/2023 2:00 PM EDT Office Visit Speech Therapy at [place] [address] Debra Franco, [employer] P[employer] LAY[employer] HELPER 11/08/2023 2:30 PM EDT Appointment MRI at [place] [address] Navjot Grider MD [facility] [address] [place] [address] 11/09/2023 1:45 PM EDT Office Visit Hematology and Oncology at [place] [address] Isabell Jacob MD [facility] [place] [address] 11/11/2023 10:30 AM EDT Office Visit Radiation Oncology at [place] [address] Nicki Sharpe MD [facility] [place] [address] 11/15/2023 10:00 AM EDT Office Visit Speech Therapy at [place] [address] Debra Franco, [employer] P[employer] LAY[employer] HELPER 11/16/2023 9:00 AM EDT Office Visit Hematology [place] [address] Bisi Nam 11/22/2023 10:00 AM EDT Office [place] [address] Debra Frnaco, [employer]AY[employer] HELPER 11/30/2023 9:00 AM EDT Office Visit Hematology [place] [address] Bisi Nam 12/14/2023 9:00 AM EDT Office Visit Hematology [place] [address] Bisi Nam 12/28/2023 9:00 AM EDT Office Visit Hematology [place] [address] Bisi aNm documented as of this encounter Visit Diagnoses Not on filedocumented in this encounter Care Teams Higher Education Administrator Relationship Specialty Start Date End Date Molina Herr MD [facility] [address] [place] [address] PCP - General 01/27/10 documented as of this encounter
--- OUTSIDE RECORDS SUMMARY | 2023-10-17 15:09 | XMS_ITS | Encounter Summary ---
[place] [address] Care Team Providers Care Automobile Rental Clerk Name Role Phone Molina Herr MD Primary Care Provider [phone] Reason for Visit * Reason Onset Date Comments Dental Problem 07/21/2023 Encounter Details Date Type Department Care Team (Late st Contact Info) Description 07/21/2023 [place]phone [place] [address] Clinic, Dr Fuchs Team None Dental Problem Social History Tobacco Use Types Packs/Day Years [...] from your doctor or pharmacy? Sometimes 08/22/2023 [facility] Utilities Answer Date Recorded In [...] any time in the past [address] [facility], were you homeless or living [...] encounter Miscellaneous Notes * Telephone Encounter - Aisha Astudillo PA - 07/22/2023 10:56 AM EDT * Telephone Encounter - Katherine Roman - 07/21/2023 3:40 PM EDT Name of person calling : [facility] person calling from: n.a Who is the provider: Betsey Have you had surgery: Yes If yes : DOS: 07/05/23 Surgeon: betsey Is there a new injury: No If yes, how did the new injury occur?: n.a Best contact number: [phone] What is the question: patient calling in with a dental problem states they have to have emergency work to a tooth and will need an antibiotic. Please advise. documented in this encounter Plan of Treatment Upcoming Encounters Date Type Department Care Team (Late st Contact Info) Description 10/27/2023 11:15 AM EDT Office Visit Palliative Medicine at [place] [address] Elly Alston MD [facility] [address] HOSPICE [place] [address] 10/27/2023 1:00 PM EDT Office Visit Speech Therapy at [place] [address] Debar Franco, CABLE BRAIDER 11/03/2023 2:00 PM EDT Office Visit Speech Therapy at [place] [address] Debra Franco, CABLE BRAIDER 11/08/2023 2:30 PM EDT Appointment MRI at [place] [address] Navjot Grider MD [facility] [address] [place] [address] 11/09/2023 1:45 PM EDT Office Visit Hematology and Oncology at [place] [address] Isabell Jacob MD [facility] [place] [address] 11/11/2023 10:30 AM EDT Office Visit Radiation Oncology at [place] [address] Nicki Sharpe MD [facility] DR RADIATION ONCOLOGY [place] [phone] 11/15/2023 10:00 AM EDT Office Visit Speech Therapy at [place] [phone] Debra Franco, CABLE BRAIDER 11/16/2023 9:00 AM EDT Office Visit Hematology [place] [address] Bisi Nam 11/22/2023 10:00 AM EDT Office [place] [address] Debra Franco, CABLE BRAIDER 11/30/2023 9:00 AM EDT Office Visit Hematology [place] [address] Bisi Nam 12/14/2023 9:00 AM EDT Office Visit Hematology [place] [address] Bisi Nam 12/28/2023 9:00 AM EDT Office Visit [place]ology [place] [address] Bisi Nam documented as of this encounter Goals Goal Patient Goal Type Associated Problems Recent Progress Patient-Stated? Author Patient's specific desired goal: Patient Facing Action Plan Andrei Lee, [facility] Note: Goal(s): maintain quality of life as much as possible Measured by: quality of life scale, ability to participate in activities which he enjoys and needs to do Time-frame: to be assessed at approximately the one year point by pharmacy, or sooner if patient asks to discuss documented as of this encounter Visit Diagnoses Not on filedocumented in this encounter Care Teams Automobile Rental Clerk Relationship Specialty Start Date End Date Molina Herr MD [address] [address] [place] [address] PCP - General 01/27/10 documented as of this encounter
--- OUTSIDE RECORDS SUMMARY | 2023-10-17 15:09 | XMS_ITS | Encounter Summary ---
Author Organization [facility] [place] [address] Care Team Providers Care Dining Room Manager Name Role Phone Molina Herr MD Primary Care Provider [phone] Encounter Details Date Type Department Care Team (Latest Contact Info) Description 06/10/2023 5:11 PM EDT - 06/10/2023 11:59 PM EDT Hospital [place] [address] Discharge Disposition: Home Social History Tobacco Use [...] 20 mg by mouth daily. 4 03/08/2014 [id number] nc (SOURCE CF) 200-10 mcg-mg Chew Take 1 [...] for up to 30 days. 07/06/2023 08/06/2023 HYDROmorphone (Dilaudid) 2 mg tablet Take 1 tablet by mouth every 4 hours as needed for Pain. If pain is severe, you may take 2 tablets (4mg) every 4 hours as needed for pain. You should require less and less medication after the first few days postoperatively and should wean to take the smallest dose necessary to help control pain. 30 tablet 07/06/2023 07/06/2023 traMADoL (Ultram) 50 mg tablet Take 1 tablet by mouth every 6 hours as needed for Pain. 30 tablet 07/06/2023 07/08/2023 aspirin EC 81 mg EC (DR) tablet Take 1 tablet by mouth 2 times daily. 60 tablet 07/05/2023 08/06/2023 oxyCODONE (Roxicodone) 5 mg tablet Take 1 tablet by mouth every 4 hours as needed for Pain. 30 tablet 07/05/2023 07/05/2023 oxyCODONE (Roxicodone) 5 mg tablet Take 1 tablet by mouth every 4 hours as needed for Pain. May take up to 10mg (2 tablets) every 4 hours as needed in the immediate post-op period, but should continue to require less medication after the first two days and take the smallest dose needed when able 30 tablet 07/05/2023 07/06/2023 celecoxib (CeleBREX) 400 mg capsule Take 1 capsule by mouth 2 times daily for 42 days. 84 capsule 07/05/2023 07/05/2023 celecoxib (CeleBREX) 200 mg capsule Take 2 capsules by mouth daily for 42 doses. 84 capsule 07/05/2023 07/06/2023 celecoxib (CeleBREX) 200 mg capsule Take 400 mg by mouth daily. 07/05/2023 ibuprofen (ADVIL;MOTRIN) 400 mg Tablet Take 400 mg by mouth every 6 hours as needed for Pain. 07/28/2023 acetaminophen (TYLENOL) 325 mg Tablet Take 2 tablets by mouth every 6 hours as needed for Pain. 30 tablet 03/09/2017 07/05/2023 Cholecalciferol, Vitamin D3, 1,000 unit Capsule Take 1,000 Units by mouth daily. 07/28/2023 aspirin 81 mg EC tablet Take 81 mg by mouth daily. 07/05/2023 documented as of this encounter Plan of Treatment Upcoming Encounters Date Type Department Care Team (Late st Contact Info) Description 10/27/2023 11:15 AM EDT Office Visit Palliative Medicine at [place] [phone] Elly Alston MD [facility] HOSPICE [place] [address] 10/27/2023 1:00 PM EDT Office Visit Speech Therapy at [place] [phone] Debra Franco, ASPHALT DAUBER 11/03/2023 2:00 PM EDT Office Visit Speech Therapy at [place] [phone] Debra Franco, ASPHALT DAUBER 11/08/2023 2:30 PM EDT Appointment MRI at [place] [phone] Navjot Grider MD [facility] [place] [address] 11/09/2023 1:45 PM EDT Office Visit Hematology and Oncology at [place] [phone] Isabell Jacob MD [facility] DR NEUROLOGY [place] [id number] 11/11/2023 10:30 AM EDT Office [place] [address] Nicki Sharpe MD [facility] [place] [address] 11/15/2023 10:00 AM EDT Office [place] [address] Debra Franco, ASPHALT DAUBER 11/16/2023 9:00 AM EDT Office Visit Hematology [place] [address] Bisi Nam 11/22/2023 10:00 AM EDT Office [place] [address] Debra Franco, ASPHALT DAUBER 11/30/2023 9:00 AM EDT Office Visit Hematology [place] [address] Bisi Nam 12/14/2023 9:00 AM EDT Office Visit Hematology [place] [address] Bisi Nam 12/28/2023 9:00 AM EDT Office Visit [place]ematology [place] [address] Bisi Nam documented as of this encounter Procedures Procedure Name Priority Date/Time Associated Diagnosis Comments HEMOGRAM Routine 06/10/2023 12:52 PM EDT DIFFERENTIAL, AUTOMATED Routine 06/10/2023 12:52 PM EDT GOLD TUBE HOLD Routine 06/10/2023 12:52 PM EDT COMPREHENSIVE METABOLIC PANEL Routine 06/10/2023 12:52 PM EDT documented in this encounter Results * Gold Tube HOLD (06/10/2023 12:52 PM EDT) Pathologist [facility] Gold Hold Sample in lab. [facility] Blood No Charge / Unknown 06/10/2023 12:52 PM EDT 06/10/2023 5:23 PM EDT Molina Herr MD CHEMISTRY ORDERABLES [facility] [place] [address] * Differential, Automated (06/10/2023 12:52 PM EDT) [facility] Neutrophil % 67.8 % [facility] Neutrophil Absolute 3.83 1.70 - 6.10 x10(3)/[facility] Lymph % 21.4 % [facility] Lymphocytes Abs 1.2 0.9 - 3.2 x10(3)/[facility] Monocyte % 8.0 % [facility] Monocyte Abs 0.4 0.3 - 0.9 x10(3)/[facility] Eos % 1.9 % [facility] Eosinophils Abs 0.1 0.0 - 0.4 x10(3)/[facility] Basophil % 0.7 % [facility] Baso Absolute 0.0 0.0 - 0.1 x10(3)/[facility] Immature Gran % 0.20 % [facility] Comment: Immature granulocytes(IG's)percentage and absolute count will include metamyelocytes, myelocytes, and promyelocytes. Blood smears from CBCs yielding IG's will be scanned manually for concordance. If this scan disagrees with the automated IG or if promyelocytes are noted, a manual differential will be performed. Immature Gran Absolute 0.01 0.00 - 0.04 x10(3)/[facility] Blood Venous Draw / Unknown 06/10/2023 12:52 PM EDT 06/10/2023 5:23 PM EDT Narrative Resulting Agency Comment Spec In Lab Molina Herr MD HEMATOLOGY ORDERABLE S [facility] [place] [address] * (ABNORMAL) Hemogram (06/10/2023 12:52 PM EDT) White Blood Cell 5.6 4.0 - 9.5 x10(3)/[facility] Red Blood Cell 4.51(L) 4.58 - 5.54 x10(6)/[facility] Hemoglobin 12.8(L) 13.7 - 16.5 g/dL [facility] Hematocrit 39.5(L) 40.5 - 48.5 % [facility] Mean Cell Volume 87.6 82.9 - 93.1 [facility] Mean Cell Hemoglobin 28.4 27.5 - 32.1 pg [facility] Mean Cell Hemoglobin Concentration 32.4 32.0 - 35.7 g/dL [facility] Platelet 269 145 - 357 x10(3)/[facility] RDW Standard Deviation 45.1(H) 36.0 - 45.0 [facility] RDW coefficient of variation 14.0(H) 11.4 - 13.8 % [facility] Mean Platelet Volume 10.2 7.6 - 12.9 [facility] NRBC% auto 0.0 % [facility] NRBC Absolute 0.000 0.000 - 0.000 x10(3)/[facility] Blood Venous Draw / Unknown 06/10/2023 12:52 PM EDT 06/10/2023 5:23 PM EDT Narrative Resulting Agency Comment Spec In Lab Molina Herr MD HEMATOLOGY ORDERABLE S [facility] [place] [address] * (ABNORMAL) Comprehensive metabolic panel (non-fasting) (06/10/2023 12:52 PM EDT) Glucose 98 65 - 199 mg/dL [facility] Comment:Diabetes: >=200 mg/d L plus symptoms Blood Urea Nitrogen 20 10 - 20 mg/dL [facility] Creatinine 1.32 0.80 - 1.50 mg/dL [facility] Sodium 137 135 - 145 mmol/L [facility] Potassium 4.7 3.5 - 5.0 mmol/L [facility] Comment: Please note: ??Patients with WBC >100,000 may have falsely elevated Potassium levels. ??For accurate Potassium quantification in these patients send serum separator tube (gold top) for subsequent determinations. ??Contact the Clinical Chemistry Laboratory if there are any questions. Chloride 103 98 - 107 mmol/L [facility] Carbon Dioxide 23 22 - 31 mmol/L [facility] Anion Gap 11 5 - 15 mmol/L [facility] Calcium 9.6 8.5 - 10.5 mg/dL [facility] Protein, Total 6.9 6.1 - 8.0 g/dL [facility] Albumin 4.1 3.2 - 5.2 g/dL [facility] Aspartate Aminotransferase 21 0 - 39 unit/L [facility] Alanine Aminotransferase 16 0 - 55 unit/L [facility] Alkaline Phosphatase 64 40 - 130 unit/L [facility] [...] to eGFR. Blood Venous Draw / Unknown 06/10/2023 12:52 PM EDT 06/10/2023 5:22 PM EDT Narrative Resulting Agency Comment Spec In Lab Molina Herr MD CHEMISTRY ORDERABLES [facility] [place] [address] documented in this encounter Visit Diagnoses Not on filedocumented in this encounter Care Teams Dining Room Manager Relationship Specialty Start Date End Date Molina Herr MD [facility] [address] [place] [address] PCP - General 01/27/10 documented as of this encounter
--- OUTSIDE RECORDS SUMMARY | 2023-10-17 15:09 | XMS_ITS | Encounter Summary ---
Author Organization [facility] Address [facility] [place] [address] Care Team Providers Care Director Diversity Name Role Phone Molina Herr MD Primary Care Provider [phone] Encounter Details Date Type Department Care Team (Latest Contact Info) Description 05/11/2023 7:26 AM EST - 05/11/2023 11:59 PM EST Hospital Encounter XRay at [address] [place] [address] Ernie Fuchs MD [facility] [place] [address] Pain in both knees, unspecified chronicity Discharge Disposition: Home Social History Tobacco Use [...] Sig Dispensed Refills Start Date End Date ubiquinone (Ubiquinone) 100 mg capsule Take 200 mg by mouth once. omeprazole (PRILOSEC) 20 mg Capsule, Delayed Release(E.C.) Take 20 mg by mouth daily. 4 03/08/2014 [id number] (SOURCE CF) 200-10 mcg-mg Chew Take 1 tablet by mouth daily. 08/04/2010 levothyroxine (SYNTHROID) 25 mcg tablet 25MCG = 1 Tablet(s), PO, Once daily 09/27/2007 atorvastatin (LIPITOR) 10 mg tablet Take 20 mg by mouth. 09/27/2007 celecoxib (CeleBREX) 200 mg capsule Take 400 [...] AM EDT Office Visit Palliative Medicine at [place] [phone] Elly Alston MD [facility] [address] HOSPICE [place] [address] 10/27/2023 1:00 PM EDT Office [place] [address] Debra Franco, [address] [employer] 11/03/2023 2:00 PM EDT Office [place] [address] Debra Franco, [address] [employer] 11/08/2023 2:30 PM [place] [address] Navjot Grider MD [facility] HEMATOLOGY [place] [address] 11/09/2023 1:45 PM EDT Office Visit Hematology and Oncology at [place] [phone] Isabell Jacob MD [facility] [place] [address] 11/11/2023 10:30 AM EDT Office Visit Radiation Oncology at [place] [address] Nicki Sharpe MD [facility] [place] [address] 11/15/2023 10:00 AM EDT Office Visit Speech Therapy at [place] [phone] Debra Franco, [address] [employer] 11/16/2023 9:00 AM EDT Office Visit Hematology and Oncology at [place] [phone] Bisi Nam 11/22/2023 10:00 AM EDT Office Visit Speech Therapy at [place] [phone] Debra Franco, [address] [employer] 11/30/2023 9:00 AM EDT Office Visit Hematology [place] [address] Bisi Nam 12/14/2023 9:00 AM EDT Office Visit Hematology [place] [address] Bisi Nam 12/28/2023 9:00 AM EDT Office Visit Hematology [place] [address] Bisi Nam documented as of this encounter Procedures Procedure Name Priority Date/Time Associated Diagnosis Comments XR KNEE STANDING ALIGNMENT AP LAT [place] SKYLINE BILAT Routine 05/11/2023 7:42 AM EST Pain in both knees, unspecified chronicity documented in this encounter Results * XR Knee Standing Alignment AP Lat [place] Casar Bilat (05/11/2023 7:42 AM EST) Anatomical Region Laterality Modality Bilateral Digital Radiogra phy Impressions 05/11/2023 2:51 PM EST 1. ??Similar degree of bilateral knee osteoarthropathy. 2. ??Varus alignment of both knees. 3. ??Left insertional gluteal calcific tendinopathy. Thank you for letting us participate in the care of this patient. ??If you are a health care provider and have any questions regarding this report, please contact the number below. ??For patients who have questions please contact the health wound care specialist that requested your imaging first. ? Electronically signed by: Nathalie Jarquin MD, [facility] ([phone]), at 05/11/2023 2:51 PM Narrative 05/11/2023 2:51 PM EST EXAMINATION: XR KNEE STANDING ALIGNMENT AP LAT [place] SKYLINE BILAT CLINICAL HISTORY: bilateral knee pain M25.561, Pain in right knee - M25.562, Pain in left knee (as entered by ordering provider in the order requisition) TECHNIQUE: Separate images of the pelvis, knees and feet were acquired in the AP projection with the patient standing. ??These images were stitched together to form a composite image of the pelvis and legs. AP, Chaves, sunrise views of bilateral knees, lateral views of both knees. COMPARISON: Bilateral knee radiographs 02/04/2021. FINDINGS: Mechanical axis of each leg passes through the respective medial tibial plateau. There is bilateral hip joint space narrowing. There is amorphous calcium deposition adjacent to the left greater trochanter. Bilateral tibiotalar joint spaces are preserved. Left knee: No focal soft tissue swelling. ??No joint effusion or lipohemarthrosis. No radiodense foreign body. ??No soft tissue gas. No acute fracture. Similar degree of medial compartment narrowing. Severe lateral patellofemoral compartment narrowing. There is subchondral sclerosis and marginal osteophyte formation. No destructive bone lesion. No osseous erosion. Right knee: No focal soft tissue swelling. ??No joint effusion or lipohemarthrosis. No radiodense foreign body. ??No soft tissue gas. No acute fracture. Similar degree of medial compartment narrowing. There is severe lateral patellofemoral compartment narrowing. There is marginal osteophyte formation. No destructive bone lesion. No osseous erosion. Procedure Note Nathalie Jarquin MD - 05/11/2023 EXAMINATION: XR KNEE STANDING ALIGNMENT AP LAT [place] SKYLINE BILAT CLINICAL HISTORY: bilateral knee pain M25.561, Pain in right knee - M25.562, Pain in left knee (as entered by ordering provider in the order requisition) TECHNIQUE: Separate images of the pelvis, knees and feet were acquired inthe AP projection with the patient standing. These images were stitched togetherto form a composite image of the pelvis and legs. AP, Chaves, sunriseviews of bilateral knees, lateral views of both knees. COMPARISON: Bilateral knee radiographs 02/04/2021. FINDINGS: Mechanical axis of each leg passes through the respective medial tibialplateau. There is bilateral hip joint space narrowing. There is amorphous calcium deposition adjacent to the left greater trochanter. Bilateral tibiotalar joint spaces are preserved. Left knee: No focal soft tissue swelling. No joint effusion or lipohemarthrosis. No radiodense foreign body. No soft tissue gas. No acute fracture. Similar degree of medial compartment narrowing. Severe lateralpatellofemoral compartment narrowing. There is subchondral sclerosis and marginalosteophyte formation. No destructive bone lesion. No osseous erosion. Right knee: No focal soft tissue swelling. No joint effusion or lipohemarthrosis. No radiodense foreign body. No soft tissue gas. No acute fracture. Similar degree of medial compartment narrowing. There is severe lateral patellofemoral compartment narrowing. There is marginal osteophyteformation. No destructive bone lesion. No osseous erosion. IMPRESSION 1. Similar degree of bilateral knee osteoarthropathy. 2. Varus alignment of both knees. 3. Left insertional gluteal calcific tendinopathy. Thank you for letting us participate in the care of this patient. If youare a health care provider and have any questions regarding this report,please contact the number below. For patients who have questions please contactthe health wound care specialist that requested your imaging first. Electronically signed by: Nathalie Jarquin MD, [facility]([phone]), at 05/11/2023 2:51 PM Ernie Fuchs MD IMG DX ORDERABLES documented in this encounter Visit Diagnoses Diagnosis Pain in both knees, unspecified chronicity documented in this encounter Care Teams Director Diversity Relationship Specialty Start Date End Date Molina Herr MD [facility] [address] [place] [address] PCP - General 01/27/10 documented as of this encounter
--- OUTSIDE RECORDS SUMMARY | 2023-10-17 15:09 | XMS_ITS | Encounter Summary ---
Author Organization [facility] [place] [address] Care Team Providers Care Aligner Typewriter Name Role Phone Molina Herr MD Primary Care Provider [phone] Reason for Referral * Diagnostic Test (STAT) - Closed Specialty Diagnoses / Procedures Referred By Contac t Referred To Contact Radiology Diagnoses Delirium Procedures MRI Brain wwo Contrast (Generic) Molina Herr MD [address] [place] [address] [facility] Rad Mri [address] [place] [address] Referral ID Status Reason Start Date Expiration Date V isits Requested Visits Authorized [id number] Closed Specialty Service Requested 07/25/2023 01/24/2025 1 1 Encounter Details Date Type Department Care Team (Late st Contact Info) Description 07/25/2023 Community Orders External [phone] Molina Herr MD [address] [place] [address] Delirium Social History Tobacco Use Types Packs/Day Years Used Date Smoking Tobacco: Never Smokeless Tobacco: Never Alcohol Use Standard Drinks/Week Comments Not Currently 0 (1 standard drink = 0.6 oz pur e alcohol) nothing in a few months [facility] Utilities Answer Date Recorded In the past 12 months has th e electric, gas, oil, or water company threatened to shut off services in your home? No 07/29/2023 Hunger Vital Sign Answer Date Recorded Within the past 12 months, y ou worried that your food would run out before you got the money to buy more. Never true 07/29/19 Within the past 12 months, t he [...] living in a snf (including now)? No 07/29/2023 IPV Inpatient Questions [...] AM EDT Office [place] [address] Elly Alston MD [facility] HOSPICE AND [place] [address] 10/27/2023 1:00 PM EDT Office Visit Speech Therapy at [address] Debra Franco, DEV MANAGER 11/03/2023 2:00 PM EDT Office Visit Speech Therapy at [place] [phone] Debra Franco, DEV MANAGER 11/08/2023 2:30 PM EDT Appointment MRI at [address] Navjot Grider MD [facility] [address] [place] [address] 11/09/2023 1:45 PM EDT Office Visit Hematology and Oncology at [place] [phone] Isabell Jacob MD [facility] [place] [address] 11/11/2023 10:30 AM EDT Office Visit Radiation Oncology at [place] [address] Nicki Sharpe MD [facility] [place] [address] 11/15/2023 10:00 AM EDT Office Visit Speech Therapy at [place] [phone] Debra Franco, DEV MANAGER 11/16/2023 9:00 AM EDT Office Visit Hematology and Oncology at [place] [phone] Bisi Nam 11/22/2023 10:00 AM EDT Office [place] [address] Debra Franco SLP 11/30/2023 9:00 AM EDT Office Visit Hematology [place] [address] Bisi Nam 12/14/2023 9:00 AM EDT Office Visit Hematology [place] [address] Bisi Nam 12/28/2023 9:00 AM EDT Office Visit Hematology [place] [address] Bisi Nam documented as of this encounter Results * MRI Brain wwo Contrast (Generic) (07/28/2023 6:50 PM EDT) [employer] WORKSTATION ID [id number] [facility] Anatomical Region Laterality Modality Head Magnetic Resonan [...] who have questions please contact the health home care assistant that requested your imaging first. ? Electronically signed by: Melvin Dinh MD, [facility] ([phone]), at 07/28/2023 7:12 PM --------ORIGINAL REPORT -------- [...] would be characteristic of a aggressive primary CHIEF DEVELOPMENT OFFICER neoplasm such as glioblastoma or a very large metastasis. I have discussed the findings with the social services technician and have recommended the patient be taken to the emergency department. I will expedite this report. Thank you for letting us participate in the care of this patient. ??If you are a health care provider and have any questions regarding this report, please contact the number below. ??For patients who have questions please contact the health home care assistant that requested your imaging first. ? Electronically signed by: Melvin Dinh MD, [facility] ([phone]), at 07/28/2023 6:59 PM Addendum by Melvin [...] would be characteristic of a aggressive primary CHIEF DEVELOPMENT OFFICER neoplasm such as glioblastoma or a very large metastasis. I have discussed the findings with the social services technician and have recommended the patient be taken to the emergency department. I will expedite this report. Thank you for letting us participate in the care of this patient. ??If you are a health care provider and have any questions regarding this report, please contact the number below. ??For patients who have questions please contact the health home care assistant that requested your imaging first. ? 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 These findings would be characteristic of a aggressive primary CHIEF DEVELOPMENT OFFICER neoplasm such as glioblastoma or a very large metastasis. I have discussed the findings with the social services technician and have recommended the patient be taken to the emergency department. I will expedite this report. Thank you for letting us participate in the care of this patient. ??If you are a health care provider and have any questions regarding this report, please contact the number below. ??For patients who have questions please contact the health home care assistant that requested your imaging first. ? Electronically signed by: Melvin Dinh MD, [facility] ([phone]), at 07/28/2023 6:59 PM Narrative 07/28/2023 6:59 [...] the 3rd nerve as seen on coronal [id number] series 17. No additional lesions are identified. [...] findings would be characteristic of aaggressive primary CHIEF DEVELOPMENT OFFICER neoplasm such as glioblastoma or a very large metastasis. I have discussed the findings with the social services technician and have recommended thepatient be taken to the emergency department. I will expedite this report. Thank you for letting us participate in the care of this patient. If youare a health care provider and have any questions regarding this report,please contact the number below. For patients who have questions please contactthe health home care assistant that requested your imaging first. Electronically signed by: Melvin Dinh MD, [facility]([phone]), at 07/28/2023 6:59 PM Molina Herr MD IM MRI ORDERABLES documented in this encounter Visit Diagnoses Diagnosis Delirium Other alteration of consciousness Delirium Other alteration of consciousness documented in this encounter Care Teams Aligner Typewriter Relationship Specialty Start Date End Date Molina Herr MD [address] [place] [address] PCP - General 01/27/10 documented as of this encounter
--- OUTSIDE RECORDS SUMMARY | 2023-10-17 15:09 | XMS_ITS | Encounter Summary ---
Author Organization [facility] Address [facility] [place] [address] Care Team Providers Care Bookmobile Driver Name Role Phone Molina Herr MD Primary Care Provider [phone] Encounter Details Date Type Department Care Team (Latest Contact Info) Description 06/01/2023 Travel Social History Tobacco Use Types Packs/Day [...] AM EDT Office Visit [place] [phone] Elly Alston MD [facility] [address] HOSPICE [place] [address] 10/27/2023 1:00 PM EDT Office [place] [address] Debra Franco, CBX OPERATOR 11/03/2023 2:00 PM EDT Office Visit Speech Therapy at [place] [phone] Debra Franco, ROLANDO 11/08/2023 2:30 PM EDT Appointment MRI at [address] Navjot Grider MD [facility] [address] HEMAT[place]Y [place] [address] 11/09/2023 1:45 PM EDT Office Visit Hematology and Oncology at [address] Isabell Jacob MD [facility] [place] [address] 11/11/2023 10:30 AM EDT Office Visit Radiation Oncology at [place] [phone] Nicki Sharpe MD [facility] [place] [address] 11/15/2023 10:00 AM EDT Office Visit Speech Therapy at [place] [phone] Debra Franco SLP 11/16/2023 9:00 AM EDT Office Visit Hematology [place] [address] Bisi Nam 11/22/2023 10:00 AM EDT Office [place] [address] Debra Franco SLP 11/30/2023 9:00 AM EDT Office Visit Hematology [place] [address] Bisi Nam 12/14/2023 9:00 AM EDT Office Visit Hematology [place] [address] Bisi Nam 12/28/2023 9:00 AM EDT Office Visit Hematology [place] [address] Bisi Nam documented as of this encounter Visit Diagnoses Not on filedocumented in this encounter Care Teams Bookmobile Driver Relationship Specialty Start Date End Date Molina Herr MD [address] [place] [address] PCP - General 01/27/10 documented as of this encounter
--- OUTSIDE RECORDS SUMMARY | 2023-10-17 15:09 | XMS_ITS | Encounter Summary ---
[place] [address] Care Team Providers Care Clinical Administrator Name Role Phone Molina Herr MD Primary Care Provider [phone] Encounter Details Date Type Department Care Team (Latest Contact Info) Description 06/13/2023 11:00 AM EDT Laboratory [place] [address] Primary osteoarthritis of right knee; Right leg pain Social History Tobacco Use Types Packs/Day Years Used Date Smoking Tobacco: Never Smokeless Tobacco: Never Alcohol Use Standard Drinks/Week Comments Not Currently 0 (1 standard drink = 0.6 oz pur e alcohol) nothing in a few months [facility] Inpatient Questions Answer Date Recorded Does Anyone Try to Keep You From Having Contact with Others or Doing Things Outside Your Home? no 06/13/2023 Feels Threatened by Someone no 10/2023 Feels Unsafe at Home or Work/School no 06/13/2023 Physical Signs of Abuse Present no 06/13/2023 Sex and Gender Information Value Date Recorded Sex Assigned at Male 02/02/2021 9:04 PM EST Gender Identity Male 02/02/2021 9:04 PM EST Sexual Orientation Not on file documented as of this encounter Plan of Treatment Upcoming Encounters Date Type Department Care Team (Late st Contact Info) Description 10/27/2023 11:15 AM EDT Office Visit Palliative Medicine at [facility] [place] [address] Elly Alston MD [facility] [address] HOSPICE AND [place] [address] 10/27/2023 1:00 PM EDT Office Visit Speech Therapy at [place] [address] Debra Franco, RAND CEMENTER 11/03/2023 2:00 PM EDT Office Visit Speech Therapy at [address] Debra Franco, RAND CEMENTER 11/08/2023 2:30 PM EDT Appointment MRI at [place] [address] Navjot Grider MD [facility] [address] HEMATOLOGY [place] [address] 11/09/2023 1:45 PM EDT Office Visit Hematology and Oncology at [place] [address] Isabell Jacob MD [facility] [place] [place] [address] 11/11/2023 10:30 AM EDT Office Visit Radiation Oncology at [place] [address] Nicki Sharpe MD [facility] [place] [address] 11/15/2023 10:00 AM EDT Office Visit Speech Therapy at [place] [phone] Debra Franco, RAND CEMENTER 11/16/2023 9:00 AM EDT Office Visit Hematology and Oncology at [place] [phone] Bisi Nam 11/22/2023 10:00 AM EDT Office [place] [address] Debra Franco, RAND CEMENTER 11/30/2023 9:00 AM EDT Office Visit Hematology [place] [address] Bisi Nam 12/14/2023 9:00 AM EDT Office Visit Hematology [place] [address] Bisi Nam 12/28/2023 9:00 AM EDT Office Visit Hematology [place] [address] Bisi Nam documented as of this encounter Procedures Procedure Name Priority Date/Time Associated Diagnosis Comments HEMOGRAM Routine 06/13/2023 11:24 AM EDT Primary osteoarthritis of right knee Right leg pain DIFFERENTIAL, AUTOMATED Routine 06/13/2023 11:24 AM EDT Primary osteoarthritis of right knee Right leg pain HC VENIPUNCTURE Routine 06/13/2023 11:24 AM EDT Primary osteoarthritis of right knee Right leg pain PROTHROMBIN TIME Routine 06/13/2023 11:2 4 AM EDT Primary osteoarthritis of right knee Right leg pain CBC (WITH DIFF) Routine 06/13/2023 11:24 AM EDT Primary osteoarthritis of right knee Right leg pain BASIC METABOLIC PANEL Routine 06/13/2023 11:24 AM EDT Primary osteoarthritis of right knee Right leg pain documented in this encounter Results * Differential, Automated (06/13/2023 11:24 AM EDT) Neutrophil % 74.2 % [facility] Neutrophil Absolute 5.82 1.70 - 6.10 x10(3)/mcL [facility] Lymph % 16.2 % [facility] Lymphocytes Abs 1.3 0.9 - 3.2 x10(3)/[facility] Monocyte % 6.3 % [facility] Monocyte Abs 0.5 0.3 - 0.9 x10(3)/[facility] Eos % 2.4 % [facility] Eosinophils Abs 0.2 0.0 - 0.4 x10(3)/[facility] Basophil % 0.5 % [facility] Baso Absolute 0.0 0.0 - 0.1 x10(3)/[facility] Immature Gran % 0.40 % [facility] Comment: Immature granulocytes(IG's)percentage and absolute count will include metamyelocytes, myelocytes, and promyelocytes. Blood smears from CBCs yielding IG's will be scanned manually for concordance. If this scan disagrees with the automated IG or if promyelocytes are noted, a manual differential will be performed. Immature Gran Absolute 0.03 0.00 - 0.04 x10(3)/[facility] Blood 06/13/2023 11:2 4 AM EDT 06/13/2023 11:36 AM EDT Narrative Resulting Agency Comment Spec In Lab Aisha ARRINGTON HEMATOLOGY ORDERABLE S [facility] [place] [address] * (ABNORMAL) Hemogram (06/13/2023 11:24 AM EDT) White Blood Cell 7.8 4.0 - 9.5 x10(3)/ L [facility] Red Blood Cell 4.57(L) 4.58 - 5.54 x10(6)/ L [facility] Hemoglobin 12.8(L) 13.7 - 16.5 g/dL [facility] Hematocrit 40.5 40.5 - 48.5 % [facility] Mean Cell Volume 88.6 82.9 - 93.[address] [facility] Mean Cell Hemoglobin 28.0 27.5 - 32.[address] [facility] Mean Cell Hemoglobin Concentration 31.6(L) 32.0 - 35.7 g/dL [facility] Platelet 267 145 - 357 x10(3)/mc L [facility] RDW Standard Deviation 44.7 36.0 - 45.[address] [facility] RDW coefficient of variation 13.9(H) 11.4 - 13.8 % [facility] Mean Platelet Volume 9.1 7.6 - 12.[address] [facility] NRBC% auto 0.0 % [facility] NRBC Absolute 0.000 0.000 - 0.000 x10(3)/mc L [facility] Blood 06/13/2023 11:2 4 AM EDT 06/13/2023 11:36 AM EDT Narrative Resulting Agency Comment Spec In Lab Aisha ARRINGTON HEMATOLOGY ORDERABLE S [facility] [place] [address] * (ABNORMAL) Basic Metabolic Panel (non-fasting) (06/13/2023 11:24 AM EDT) Glucose 102 65 - 199 mg/dL [facility] Comment:Diabetes: >=200 mg/d L plus symptoms Blood Urea Nitrogen 20 10 - 20 mg/dL [facility] Creatinine 1.24 0.80 - 1.50 mg/dL [facility] Sodium 141 135 - 145 mmol/L [facility] Potassium 4.3 3.5 - 5.0 mmol/L [facility] Comment: Please note: ??Patients with WBC >100,000 may have falsely elevated Potassium levels. ??For accurate Potassium quantification in these patients send serum separator tube (gold top) for subsequent determinations. ??Contact the Clinical Chemistry Laboratory if there are any questions. Chloride 108(H) 98 - 107 mmol/L [facility] Carbon Dioxide 24 22 - 31 mmol/L [facility] Anion Gap 9 5 - 15 mmol/L [facility] Calcium 9.3 8.5 - 10.5 mg/dL [facility] Est Glomerular Filtration Rate 59(L) >=60 mL/min/1. 73 m?? [facility] [...] and symptoms in addition to eGFR. Blood 06/13/2023 11:2 4 AM EDT 06/13/2023 11:36 AM EDT Narrative Resulting Agency Comment Spec In Lab Ernie Fuhcs MD CHEMISTRY ORDERABLES [facility] [place] [address] * Prothrombin Time (06/13/2023 11:24 AM EDT) Prothrombin Time 11.3 9.4 - 12.[address] [facility] International Normalization Ratio 1.[address] [facility] Comment: An INR <2.0 indicates [...] be appropriate depending on clinical circumstances. Blood 06/13/2023 11:2 4 AM EDT 06/13/2023 11:36 AM EDT Narrative Resulting Agency Comment Spec In Lab Ernie Fuchs MD HEMATOLOGY ORDERABLE S Performing Organization Address City/[facility]/ZIP Co de Phone Number [facility] [place] [address] * APTT (06/13/2023 11:24 AM EDT) Partial Thromboplastin Time 37 25 - [address] [facility] Comment: The PTT is NOT appropriate for heparin monitoring. Use the Anti-Xa level for heparin monitoring (HEP UFH) or LMWH monitoring (HEP LMW). A PTT less than 37 seconds generally indicates adequate hemostasis. Blood 06/13/2023 11:2 4 AM EDT 06/13/2023 11:36 AM EDT Narrative Resulting Agency Comment Spec In Lab Ernie Fuchs MD HEMATOLOGY ORDERABLE S Performing Organization Address City/[facility]/ZIP Co de Phone Number [facility] [place] [address] documented in this encounter Visit Diagnoses Diagnosis Primary osteoarthritis of right knee Primary localized osteoarthrosis, lower leg Right leg pain Pain in limb documented in this encounter Care Teams Clinical Administrator Relationship Specialty Start Date End Date Molina Herr MD [address] [place] [address] PCP - General 01/27/10 documented as of this encounter
--- OUTSIDE RECORDS SUMMARY | 2023-10-17 15:09 | XMS_ITS | Encounter Summary ---
[place] [address] Care Team Providers Care Employment Specialist Name Role Phone Molina Herr MD Primary Care Provider [phone] Reason for Visit * Reason Onset Date Comments Post-op Problem 07/11/2023 Encounter Details Date Type Department Care Team (Late st Contact Info) Description 07/11/2023 Telephone [place] [address] Clinic, Dr Fuchs Team None Post-op Problem Social History Tobacco Use Types Packs/Day Years Used Date Smoking Tobacco: Never Smokeless Tobacco: Never Alcohol Use Standard Drinks/Week Comments Not Currently 0 (1 standard drink = 0.6 oz pur e alcohol) nothing in a few months [facility] Inpatient Questions Answer Date Recorded Does Anyone [...] encounter Miscellaneous Notes * Telephone Encounter - Davida Howell - 07/19/2023 8:45 AM EDT June called stating the patient is having some side effects to dilaudid. States he is struggling to remember words and names and events. States it has gotten better since the medication has been tapered but there is some concern. States she is wondering if it could be due to the medications used during surgery and not necessarily the dilaudid. Please advise. * Telephone Encounter - Chary Garcia - 07/12/2023 11:15 AM EDT Returned call to patient, Maldonado and June. Let them know we are going to send dilaudid into the [facility] in [place] to help with pain. This has been pended to Aisha Astudillo PA-C. Reviewed importance of icing and elevating as well. Perfecto verbalized understanding. No further questions or concerns at this time. * Telephone Encounter - Jewel Correia - 07/11/2023 11:26 AM EDT Who is calling? June Best call back number: [phone] Best time to call back between 8:00 am & 5:00 pm: Anytime Can we leave a message? yes When was your procedure? 07/05/23 Who was your surgeon? Dr. Fuchs What procedure did you have done? 07/05/2023 0800 TOTAL KNEE ARTHROPLASTY (WRVU 19.6) - Right MODIFIER, ATTUNE CURVED ROTATING PLATFORM, DEPErnie Moseley (Primary) Saurav Banks [facility] MAIN OR Discharged What is the question you would like to ask the clinical care team? June called with some concerns regarding Maldonado's right leg. She stated that his right leg is approximately 3 inches more in diameter than his left leg, starting from the top of the bandage going down to his ankle. She also stated that right at the edge of his bandage, Maldonado's skin is a little pink. She stated that it is not any wa rmer to the touch than Maldonado's left leg. June and Maldonado want to make sure that this is normal and not something they should be worried about. Please advise. Your message will be forwarded to the clinical care team for review. documented in this encounter Plan of Treatment Upcoming Encounters Date Type Department Care Team (Late st Contact Info) Description 10/27/2023 11:15 AM EDT Office Visit Palliative Medicine at [address] Elly Alston MD [facility] HOSPICE [place] [address] 10/27/2023 1:00 PM EDT Office Visit Speech Therapy at [place] [address] Debra Franco, ONCOLOGY NURSE 11/03/2023 2:00 PM EDT Office Visit Speech Therapy at [place] [address] Debra Franco, ONCOLOGY NURSE 11/08/2023 2:30 PM EDT Appointment MRI at [place] [address] Navjot Grider MD [facility] [address] [place] [address] 11/09/2023 1:45 PM EDT Office Visit Hematology and Oncology at [address] Isabell Jacob MD [facility] [place] [address] 11/11/2023 10:30 AM EDT Office Visit Radiation Oncology at [address] Nicki Sharpe MD [facility] [place] [address] 11/15/2023 10:00 AM EDT Office [place] [address] Debra Franco, ONCOLOGY NURSE 11/16/2023 9:00 AM EDT Office Visit Hematology [place] [address] Bisi Nam 11/22/2023 10:00 AM EDT Office [place] [address] Debra Franco ONCOLOGY NURSE 11/30/2023 9:00 AM EDT Office Visit Hematology [place] [address] Bisi Nam 12/14/2023 9:00 AM EDT Office Visit Hematology [place] [address] Bisi Nam 12/28/2023 9:00 AM EDT Office Visit Hematology [place] [address] Bisi Nam documented as of this encounter Visit Diagnoses Not on filedocumented in this encounter Care Teams Employment Specialist Relationship Specialty Start Date End Date Molina Herr MD [address] [place] [address] PCP - General 01/27/10 documented as of this encounter
--- OUTSIDE RECORDS SUMMARY | 2023-10-17 15:09 | XMS_ITS | Encounter Summary ---
[place] [address] Care Team Providers Care Sap Administrator Name Role Phone Molina Herr MD Primary Care Provider Encounter Details Date Type Department Care Team (Latest Contact Info) Description 06/13/2023 Travel Social History Tobacco Use Types Packs/Day Years Used Date Smoking Tobacco: Never Smokeless Tobacco: Never Alcohol Use Standard Drinks/Week Comments Not Currently 0 (1 standard drink = 0.6 oz pur e alcohol) nothing in a few months [facility] Inpatient Questions Answer Date Recorded [...] AM EDT Office [place] [address] Elly Alston MD [facility] HOSPICE [place] [address] 10/27/2023 1:00 PM EDT Office Visit Speech Therapy at [place] [phone] Debra Franco, [employer] 11/03/2023 2:00 PM EDT Office [place] [address] Debra Franco, [employer] 11/08/2023 2:30 PM EDT Appointment MRI at [place] [phone] Navjot Grider MD [facility] [address] [place] [address] 11/09/2023 1:45 PM EDT Office Visit Hematology and Oncology at [place] [phone] Isabell Jacob MD [facility] [place] [address] 11/11/2023 10:30 AM EDT Office Visit Radiation Oncology at [place] [phone] iNcki Sharpe MD [facility] [place] [address] 11/15/2023 10:00 AM EDT Office [place] [address] Debra Franco, [employer] 11/16/2023 9:00 AM EDT Office Visit Hematology [place] [phone] Bisi Nam 11/22/2023 10:00 AM EDT Office [place] [phone] Debra Franco SLP 11/30/2023 9:00 AM EDT Office Visit Hematology [place] [address] Bisi Nam 12/14/2023 9:00 AM EDT Office Visit Hematology [place] [address] Bisi Nam 12/28/2023 9:00 AM EDT Office Visit [place]ology [place] [address] Bisi Nam documented as of this encounter Visit Diagnoses Not on filedocumented in this encounter Care Teams Sap Administrator Relationship Specialty Start Date End Date Molina Herr MD [facility] [phone] [place] [address] PCP - General 01/27/10 documented as of this encounter
--- OUTSIDE RECORDS SUMMARY | 2023-10-17 15:09 | XMS_ITS | Encounter Summary ---
Author Organization Count Includes [facility] [address] Care Team Providers Care Caster Operator Name Role Phone Molina Herr MD Primary Care Provider [phone] Reason for Visit * Auth/Cert (Routine) Specialty Diagnoses / Procedures Referred By Contac t Referred To Contact Diagnoses Primary osteoarthritis of right knee Right leg pain RIGHT KNEE DJD Procedures PRO ARTHROPLASTY KNEE CONDYLE & PLATEAU MEDIAL & LAT COMPARTMENTS Yohana Fuchs MD [facility] [place] [address] Referral ID Status Reason Start Date Expiration Date Visits Re quested Visits Authorized [id number] 05/18/2023 1 1 Encounter Details Date Type Department Care Team (Latest Contact Info) Description 07/05/2023 5:33 AM EDT - 07/06/2023 2:54 PM EDT Hospital Encounter Neurosciences and ENT Unit Level 5 [place] [id number] Yohana Fuchs MD [facility] [place] [address] Primary osteoarthritis of right knee; Right leg [...] Sign Reading Time Taken Comments Blood Pressure 108/64 07/06/2023 12:04 PM EDT Pulse 74 07/05/2023 4:23 PM EDT Temperature 37.2 ??C (99 ??F) 07/06/2023 12:04 PM EDT Respiratory Rate 16 07/06/2023 12:04 PM EDT Oxygen Saturation 94% 07/06/2023 12:04 PM EDT Inhaled Oxygen Concentration - - Weight 82 kg (180 lb 12.8 oz) 07/05/2023 6:05 AM EDT Height 172.7 cm (5' 8) 07/05/2023 6:05 AM EDT Body Mass Index 27.49 07/05/2023 6:05 AM EDT documented in this encounter Discharge Summaries * Melvin Mauro MD - 07/06/2023 11:19 AM EDT Discharge Summary Patient Name: Perfecto Polk Patient Age: 82 y.o. Language: Qatari Race: White Ethnicity: Not nor Admit date: 07/05/2023 Discharge date and time: 07/06/2023 Attending Physician: Yohana Fuchs MD Discharge Physician: Yohana Fuchs MD Follow-up Recommendations for Providers: See discharge instructions for additional details. Future Appointments Date Time Provider Department Center 08/03/2023 9:30 AM [facility] DX ROOM 3 MH Xray [facility] Rad 08/03/2023 10:50 AM Clinic, Dr Fuchs Team [facility] ORTH 3D [facility] Inpatient Provider Contact Information: Yohana Fuchs MD Orthopedics: [phone] After hours and weekends, call [facility] Clinical Informatics Educator, , and have the Orthopedic resident paged. [...] surgical site was marked with a green coyote valley in the pre-op area. Hospital Course: The [...] Updated Allergies/ADRs: Allergies Allergen Reactions Penicillins Hives PAT Penicillin [...] Trivalent High Dose 11/28/2015, 11/17/2016 Influenza (Novel F8Z5-48) Injectable 04/09/2009 Influenza PF, Split 11/30/2011, 11/29/2012, [...] Generic drug: atorvastatin 20 mg Refills: 0 qxkwemvaqczlw-GA-opnn 200-10 mcg-mg Tablet, Chewable Commonly known as: [...] bowel movement. You can also take an shof-nqh-xqeohxz medication, Miralax if needed to combat constipation. [...] as much as possible. Call your doctor ([phone]) if you develop: Fever greater than 100.5 Severe nausea or vomiting Increasing pain that is not controlled by pain medications Increasing redness, swelling, or drainage from incisions Change in sensation FOLLOW-UP APPOINTMENTS: 1. You will have follow-up appointments at [facility] as indicated below in Future Appointment and Orders. 2. You will need to have x-rays prior to your follow-up appointment on 08/02. Please come to Radiology, desk , 1 hour BEFORE that appointment for those x-rays. Future Appointments Date Time Provider Department Center 08/03/2023 9:30 AM [facility] DX ROOM 3 MH Xray [facility] Rad 08/03/2023 10:50 AM Clinic, Dr Fuchs Team [address] If you have questions or concerns: [...] Provider Department Dept Phone 08/03/2023 9:30 AM [facility] DX ROOM 3 XRay at [facility] Arrive at: [facility] [phone] Please go to [facility] 3T ([place] Location). 08/03/2023 10:50 AM Clinic, Dr Fuchs Team Orthopaedics at [facility] Arrive at: [facility] [address] [phone] Primary Care Provider: Molina Herr MD [phone] Discharge References/Attachments None documented in this encounter [...] bowel movement. You can also take an pxjv-gnk-hcyeyyb medication, Miralax if needed to combat constipation. [...] as much as possible. Call your doctor ([phone]) if you develop: Fever greater than 100.5 Severe nausea or vomiting Increasing pain that is not controlled by pain medications Increasing redness, swelling, or drainage from incisions Change in sensation FOLLOW-UP APPOINTMENTS: 1. You will have follow-up appointments at [facility] as indicated below in Future Appointment and Orders. 2. You will need to have x-rays prior to your follow-up appointment on 08/02. Please come to Radiology, desk 3T, 1 hour BEFORE that appointment for those x-rays. Future Appointments Date Time Provider Department Center 08/03/2023 9:30 AM [facility] DX ROOM 3 MH Xray [facility] Rad 08/03/2023 10:50 AM Clinic, Dr Fuchs Team [facility] ORTH 3D [facility] If you have questions or concerns: Tuesday [...] 20 mg by mouth daily. 4 03/08/2014 uymzbufeoials-ZO-rmy c (SOURCE CF) 200-10 mcg-mg Chew Take [...] 19.6) performed by Yohana Fuchs MD at [facility] MAIN OR PRO COLONOSCOPY, BIOPSY 01/10/2013 COLONOSCOPY FLEXIBLE, WITH BX performed by Dominick Earl MD at [facility] ENDOSCOPY PRO COLONOSCOPY, REMV LESN, SNARE N/A 01/12/2018 COLONOSCOPY, POLYPECTOMY, REMOVAL LESION BY SNARE (WRVU 4.67) performed by Guerda Coombs MD at [facility] ENDOSCOPY PRO COLONOSCOPY, REMV LESN, SNARE N/A 01/20/2023 COLONOSCOPY, POLYPECTOMY, REMOVAL LESION BY SNARE (WRVU 4.57) performed by Guerda Coombs MD at [facility] ENDOSCOPY PRO LAP, APPENDECTOMY N/A 03/09/2017 LAPAROSCOPIC APPENDECTOMY (WRVU 9.45) performed by Saurav Chen MD at [facility] MAIN OR PRO UPPER GI ENDOSCOPY, DIAGNOSTIC N/A 06/11/2021 EGD, UPPER GI ENDOSCOPY performed by Guerda Coombs MD at [facility] ENDOSCOPY Active Non-Hospital Problems Diagnosis Acute appendicitis [...] . He enjoys working out at the [employer] DME: front wheel walker, cane, shower chair, [...] person, place, and time Vision: glasses with time checker corrective lenses. Skin: CDI dressing anterior R [...] added passive R ankle DF with leg wall covering contractor x 3, holding 30 sec; add, glut, [...] outlined in thisevaluation. Time IN / OUT: 8029-3744 Total Time: 70 minutes; Low EV, TEF2, TES2 ERICKA ALMODOVAR, PT Pager: [phone] Physical Therapy Inpatient Rehabilitation Department * Yolanda [...] 19.6) performed by Yohana Fuchs MD at [facility] MAIN OR PRO COLONOSCOPY, BIOPSY 01/10/2013 COLONOSCOPY FLEXIBLE, WITH BX performed by Dominick Earl MD at [facility] ENDOSCOPY PRO COLONOSCOPY, REMV LESN, SNARE N/A 01/12/2018 COLONOSCOPY, POLYPECTOMY, REMOVAL LESION BY SNARE (WRVU 4.67) performed by Guerda Coombs MD at [facility] ENDOSCOPY PRO COLONOSCOPY, REMV LESN, SNARE N/A 01/20/2023 COLONOSCOPY, POLYPECTOMY, REMOVAL LESION BY SNARE (WRVU 4.57) performed by Guerda Coombs MD at [facility] ENDOSCOPY PRO LAP, APPENDECTOMY N/A 03/09/2017 LAPAROSCOPIC APPENDECTOMY (WRVU 9.45) performed by Saurav Chen MD at [facility] MAIN OR PRO UPPER GI ENDOSCOPY, DIAGNOSTIC N/A 06/11/2021 EGD, UPPER GI ENDOSCOPY performed by Guerda Coombs MD at [facility] ENDOSCOPY Social History: Patient lives with partner [...] awareness: WFL Vision & Perception: corrective lenses time checker Communication: WFL Hearing: Hard of hearing and [...] and measurable assessment of functional outcome. Pager: [phone] Tammie Garrett OT 07/06/2023 Occupational Therapy Rehabilitation [...] (Betadine Ophthalmic Prep) 5 % ophthalmic solution NDbomxmktii-VFUJGAAbfuj-ysdXGEssg-ketorolac (GUERA) (2.46 mg-0.005 mg-0.0008 mg- 0.3 mg/mL) [...] Time Provider Department Center 08/03/2023 9:30 AM [facility] DX ROOM 3 Xray [facility] Rad 08/03/2023 10:50 AM Clinic, Dr Fuchs Team [facility] ORTH 3D [facility] * Chad Peterson RN - 07/05/2023 4:08 PM EDT 1235 Pt started to have slurred speech and was word searching. Pt examined, orientated x3. Pt stated he felt very confused. 1242 anesthesia in room to examine pt. Pt. Responded appropriately to all commands, answering all questions correctly. Pt placed on monitor and storage bin tender. Pt observed and reassessed, all responses appropriate. Pt continues to feel less confused. Pt was given pain meds prior to this occurrence, review MAY. * Leonor Kennedy RN - 07/05/2023 3:49 PM EDT Pt admitted to [facility] s/p right TKR, pt is awake, alert [...] disease ID: 82 y.o. Male presents to [facility] with right knee osteoarthritis History of Present [...] BX performed by Dominick Earl MD at [facility] ENDOSCOPY PRO COLONOSCOPY, REMV LESN, SNARE N/A 01/12/2018 COLONOSCOPY, POLYPECTOMY, REMOVAL LESION BY SNARE (WRVU 4.67) performed by Guerda Coombs MD at [facility] ENDOSCOPY PRO COLONOSCOPY, REMV LESN, SNARE N/A 01/20/2023 COLONOSCOPY, POLYPECTOMY, REMOVAL LESION BY SNARE (WRVU 4.57) performed by Guerda Coombs MD at [facility] ENDOSCOPY PRO LAP, APPENDECTOMY N/A 03/09/2017 LAPAROSCOPIC APPENDECTOMY (WRVU 9.45) performed by Saurav Chen MD at [facility] MAIN OR PRO UPPER GI ENDOSCOPY, DIAGNOSTIC N/A 06/11/2021 EGD, UPPER GI ENDOSCOPY performed by Guerda Coombs MD at [facility] ENDOSCOPY Prior To Admission Medications: Medications Prior [...] Take 1,000 Units by mouth daily. 07/04/2023 gcjdgmwewbuoj-WF-grlw (SOURCE CF) 200-10 mcg-mg Chew Take 1 [...] Intimate Partner Violence: Not At Risk (06/13/2023) IPV Inpatient Questions Prevent Contact with Others: no Feels Threatened by Someone: no Feels Unsafe at Home: no Physical Signs of Abuse Present: no Housing Stability: Not on file Immunizations: Immunization History Administered Date(s) Administered Hepatitis B Unspecified Formulation 05/16/2012, 06/19/2012, 12/04/2012 Influenza (Fluzone HD) Quadrivalent High Dose, Preservative Free 11/29/2019, 11/25/2020, 11/17/2021 Influenza (Fluzone HD) Trivalent High Dose 11/28/2015, 11/17/2016 Influenza (Novel Y4U7-76) Injectable 04/09/2009 Influenza PF, Split 11/30/2011, 11/29/2012, [...] 6:56 PM EDT [facility]. Oriented to [...] Banks MD - 07/05/2023 9:27 AM EDT [facility] Operative Note Patient Name: Perfecto Polk : [id number] MR#: [id number] Case Date: 07/05/2023 Surgeon: Surgeon(s) and Role: * Yohana Fuchs MD - Primary * Saurav Banks MD - Fellow - Assisting Preoperative diagnosis: RIGHT KNEE DJD Postoperative diagnosis: * No post-op diagnosis entered * Procedure(s) (LRB): TOTAL KNEE ARTHROPLASTY (WRVU 19.6) (Right) MODIFIER, ATTUNE CURVED ROTATING PLATFORM, DEPUY (N/A) Modifiers: : PA/SUPERVISOR [employer] head start assistant teacher surgeon (no qualified resident available) INDICATIONS: The [...] surgical site was marked with a green coyote valley in the pre-op area. DESCRIPTION OF PROCEDURE: [...] mallet. Excess cement was removed with a Anacortes. The tibial polyethylene insert was impacted into place.We then placed the cement onto the anterior and distal aspects of the femur. The cement was placed on the posterior aspect of the prosthetic condyles. The femoral component was then placed and impacted into position. Excess cement was removed with a Anacortes. The polyethylene trial was then placed andthe knee brought out to full extension where it was held for the entire polymerization time. Cementwas then pressurized into the patellar bone and the patellar component placed. The patella was clamped. Excess cement was removed with a Anacortes. After all cement had hardened, the knee [...] the anesthesiology staff and transferred to the [facility]. Sequential compression devices were placed. INSTRUMENT [...] procedure without the involvement of a resident.Saurav Banks MD assisted in thissurgery as no qualified resident was available. He worked under my direction for the duration of the operative session. The head start assistant teacher adequately prepped the operative site and maintained the best possible exposure of anatomy incident to the procedure. YOHANA FUCHS MD 07/12/2023 documented in this encounter Plan of Treatment Upcoming Encounters Date Type Department Care Team (Late st Contact Info) Description 10/27/2023 11:15 AM EDT Office Visit Palliative Medicine at [address] Elly Alston MD [facility] DR HOSPICE AND [place] [address] 10/27/2023 1:00 PM EDT Office Visit Speech Therapy at [place] [address] Debra Franco, MILLING MACHINE OPERATOR 11/03/2023 2:00 PM EDT Office [place] [address] Debra Franco, MILLING MACHINE OPERATOR 11/08/2023 2:30 PM EDT Appointment MRI at [address] Navjot Grider MD [facility] HEMATOLOGY [place] [address] 11/09/2023 1:45 PM EDT Office Visit Hematology and Oncology at [place] [address] Isabell Jacob MD [facility] [place] [address] 11/11/2023 10:30 AM EDT Office Visit Radiation Oncology at [place] [address] Nicki Sharpe MD [facility] [place] [address] 11/15/2023 10:00 AM EDT Office [place] [address] Debra Franco, MILLING MACHINE OPERATOR 11/16/2023 9:00 AM EDT Office Visit [place]ology [place] [address] Bisi Nam 11/22/2023 10:00 AM EDT Office [place] [address] Debra Franco, MILLING MACHINE OPERATOR 11/30/2023 9:00 AM EDT Office Visit H[place]ology [place] [address] Bsii Nam 12/14/2023 9:00 AM EDT Office Visit [place] [address] Bisi Nam 12/28/2023 9:00 AM EDT Office Visit [place] [address] Bisi Nam documented as of this encounter [...] Condyle & Plateau Medial & Lat Compartments ([id number]) Yes 07/05/2023 9:03 AM EDT Primary osteoarthritis of right knee Right leg pain TOTAL KNEE ARTHROPLASTY Routine 07/05/2023 5:52 AM EDT Primary osteoarthritis of right knee Right leg pain IMPLANTABLE DEVICES SCAN 07/05/2023 12:00 AM EDT documented in this encounter Results * (ABNORMAL) Differential, Automated (07/06/2023 5:40 AM EDT) Neutrophil % 77.3 % [facility] Neutrophil Absolute 6.31(H) 1.70 - 6.10 x10(3)/mc L [facility] Lymph % 9.8 % [facility] Lymphocytes Abs 0.8(L) 0.9 - 3.2 x10(3)/mc L [facility] Monocyte % 9.7 % [facility] Monocyte Abs 0.8 0.3 - 0.9 x10(3)/mc L [facility] Eos % 2.3 % [facility] Eosinophils Abs 0.2 0.0 - 0.4 x10(3)/ L [facility] Basophil % 0.5 % [facility] Baso Absolute 0.0 0.0 - 0.1 x10(3)/mc L [facility] Immature Gran % 0.40 % [facility] Comment: Immature granulocytes(IG's)percentage and absolute count will include metamyelocytes, myelocytes, and promyelocytes. Blood smears from CBCs yielding IG's will be scanned manually for concordance. If this scan disagrees with the automated IG or if promyelocytes are noted, a manual differential will be performed. Immature Gran Absolute 0.03 0.00 - 0.04 x10(3)/mc L [facility] Blood 07/06/2023 5:40 AM EDT 07/06/2023 5:47 AM EDT Narrative Resulting Agency Comment Spec In Lab Melvin Mauro MD HEMATOLOGY ORDERABLE S [facility] [place] [address] * (ABNORMAL) Hemogram (07/06/2023 5:40 AM EDT) White Blood Cell 8.2 4.0 - 9.5 x10(3)/mc L [facility] Red Blood Cell 4.13(L) 4.58 - 5.54 x10(6)/mc L [facility] Hemoglobin 11.8(L) 13.7 - 16.5 g/dL [facility] Hematocrit 35.6(L) 40.5 - 48.5 % [facility] Mean Cell Volume 86.2 82.9 - 93.1 fL [facility] Mean Cell Hemoglobin 28.6 27.5 - 32.1 pg [facility] Mean Cell Hemoglobin Concentration 33.1 32.0 - 35.7 g/dL [facility] Platelet 230 145 - 357 x10(3)/mc L [facility] RDW Standard Deviation 41.0 36.0 - 45.0 [facility] RDW coefficient of variation 13.0 11.4 - 13.8 % [facility] Mean Platelet Volume 8.8 7.6 - 12.9 [facility] NRBC% auto 0.0 % [facility] NRBC Absolute 0.000 0.000 - 0.000 x10(3)/mc L [facility] Blood 07/06/2023 5:40 AM EDT 07/06/2023 5:47 AM EDT Narrative Resulting Agency Comment Spec In Lab Melvin Mauro MD HEMATOLOGY ORDERABLE S [facility] [place] [address] * (ABNORMAL) Basic Metabolic Panel (non-fasting) (07/06/2023 5:40 AM EDT) Glucose 114 65 - 199 mg/dL [facility] Comment:Diabetes: >=200 mg/d L plus symptoms Blood Urea Nitrogen 21(H) 10 - 20 mg/dL [facility] Creatinine 1.16 0.80 - 1.50 mg/dL [facility] Sodium 136 135 - 145 mmol/L [facility] Potassium 4.8 3.5 - 5.0 mmol/L [facility] Comment: Please note: ??Patients with WBC >100,000 may have falsely elevated Potassium levels. ??For accurate Potassium quantification in these patients send serum separator tube (gold top) for subsequent determinations. ??Contact the Clinical Chemistry Laboratory if there are any questions. Chloride 101 98 - 107 mmol/L [facility] Carbon Dioxide 26 22 - 31 mmol/L [facility] Anion Gap 9 5 - 15 mmol/L [facility] Calcium 8.5 8.5 - 10.5 mg/dL [facility] Est Glomerular Filtration Rate 64 >=60 mL/min/1. 73 m?? [facility] Comment: This patient's estimated [...] Resulting Agency Comment Spec In Lab Yohana Fcuhs MD CHEMISTRY ORDERABLES [facility] [place] [address] * EKG 12 Lead (07/05/2023 1:02 PM EDT) Ventricular rate 68 BPM MUSE SYSTEM Atrial Rate 68 BPM MUSE SYSTEM P-R Interval 268 ms MUSE SYSTEM QRS Duration 90 ms MUSE SYSTEM Q-T Interval 366 ms MUSE SYSTEM QTC Calculated (Bezet) 389 ms MUSE SYSTEM Calculated P Cutler 41 degrees MUSE SYSTEM Calculated R Cutler -18 degrees MUSE SYSTEM Calculated T Cutler 25 degrees MUSE SYSTEM INTERPRETATION Sinus rhythm [...] documented in this encounter Visit Diagnoses Diagnosis Total knee replacement status- Primary Knee joint replacement by other means Primary osteoarthritis of right knee Primary localized [...] Given 07/06/2023 9:29 AM EDT 40 mg senna-docusate (Pericolace) 8.6-50 mg per tablet 2 [...] Day of Surgery (Day of Procedure), Routine 06 (Given - Provider: Crisat Lambert, RN) acetaminophen (Tylenol) tablet 975 mg (COMPLETED) [...] Until Discontinued, Routine 2107 (Given - Provider: Yohana [place] RN) 0902 (Given - Provider: Yolanda Solano RN) atorvastatin (Lipitor) tablet 20 mg 20 mg, Oral, EVERY EVENING, First dose on Tue07/05/23 at 1745, Until Discontinued, Routine 183 (Given - Provider: Kanwal Gonsalves RN) celecoxib (CeleBREX) capsule 400 mg (COMPLETED) 400 mg, Oral, ONCE, 1 dose, On Tue07/05/23 at 0615, Administer on arrival to Same Day Program, Day of Surgery (Day of Procedure), Routine 0634 (Given - Provider: Crista Lambert RN) celecoxib (CeleBREX) capsule 400 mg 400 mg, Oral, DAILY, First dose on Tue07/06/23 at 1000, Until Discontinued, Routine 0929 (Given - Provid er: Yolanda Solano RN) gabapentin (Neurontin) capsule 300 mg (COMPLETED) 300 mg, Oral, ONCE, 1 dose, On Tue07/05/23 at 1200, Routine 1150 (Given - Provider: Leonor Kennedy RN) HYDROmorphone (Dilaudid) tablet 2 mg (COMPLETED) 2 mg, Oral, ONCE, 1 dose, On Tue07/06/23 at 0945, Routine 0907 (Given - Provid er: Yolanda Solano RN) levothyroxine (Synthroid) tablet 25 mcg 25 mcg, Oral, EVERY MORNING, First dose on Tue07/06/23 at 0600, Until Discontinued, Routine 05 (Given - Provid er: Yohana Valencia RN) lidocaine (Lidoderm) 5% patch 1 patch 1 patch, Transdermal, Administer over 12 Hours, EVERY 24 HOURS, First dose on Tue07/06/23 at 0930, Until Discontinued, Apply patch(es) for 12 hours, and then remove for 12 hours., Routine 901 (Patch Applied - Provider: Yolanda Solano RN)145 (Due: Patch Removed - Provider: Automatic Discharge Provider - Comment: Time automatically adjusted from order being discontinued) pantoprazole EC (Protonix) tablet 40 mg 40 mg, Oral, DAILY, First dose on Tue07/06/23 at 1000, Until Discontinued, DO NOT CRUSH OR OPEN, Routine 928 (Given - Provid er: Yolanda Solano RN) [...] at 100 mL/hr, Intravenous, CONTINUOUS, Starting on 07/05/23 at 0615, Until 07/05/23 at 1923, Day of Surgery (Day of Procedure) 0619 (New Bag - Provider: Crista Lambert RN)1923 (Stopped - Provider: Yohana Valencia RN) PRN Medication Order 07/04/2023 07/05/2023 07/06/2023 fentaNYL (PF) (50 mcg/mL) injection 50 mcg (CANCELED) 50 mcg, Intravenous, EVERY 5 MIN PRN, Starting on e 07/05/23 at 0812, Until 07/05/23 at 1923, Pain, or prior to injection of local anesthetic., Hold for respiratory rate less than 8 breaths per minute. (maximum dose 200 mcg), Day of Surgery (Day of Procedure), Routine 0814 (Given - Provider: Crista Lambert RN)1124 (Given - Provider: Leonor Kennedy, OSCAR) fentaNYL (pf) (50 mcg/mL) multi-dose injection 25 mcg (CANCELED)(Linked Group 1) 25 mcg, Intravenous, EVERY 5 MIN PRN, Starting on 07/05/23 at 1059, Until 07/05/23 at 1923, Pain, Moderate to severe pain (6-10 out of 10), Hold for respiratory rate less than 10 per minute. Maximum dose 200 mcg over one hour, including OR administration. If ordered with HYDROmorphone or morphine, give HYDROmorphone or morphine first and use fentaNYL for breakthrough pain., PACU Recovery, Routine 1117 (Given - Provider: Leonor Kennedy, OSCAR)1135 (Given - Provider: Leonor Kennedy, OSCAR) HYDROmorphone (Dilaudid) (2 mg/mL) multi-dose injection solution 0.4 mg (CANCELED)(Linked Group 2) 0.4 mg, Intravenous, EVERY 10 MIN PRN, Starting on 07/05/23 at 1059, Until 07/05/23 at 1923, Pain, For Moderate to Severe [...] additional dose given per Dr Akins for 9/10 pain) povidone-iodine (Betadine Ophthalmic Prep) 5 % ophthalmic solution (CANCELED) PRN, Starting on Tue07/05/23 at 0958, Until Tue07/06/23 at 1655, Intra-Operative (Intra-Procedure), Routine 0958 (Given - Provider: Yohana Fuchs MD - Comment: MIXED WITH 500 ML NACL, USED TOPICAL IRRIG) SCuniuquxsr-JBLINYLqbre-vkhNO Dine-ketorolac (GUERA) (2.46 mg-0.005 mg-0.0008 mg-0.3 mg/mL) ludivina-articular inj soln in sodium chloride (CANCELED) PRN, Starting on Tue07/05/23 at 1018, Until Tue07/06/23 at 1655, Intra-Operative (Intra-Procedure), Routine 1018 (Given - Provider: Yohana Fuchs MD) sodium chloride 0.9 % (flush) (BD [...] Routine documented in this encounter Care Teams Caster Operator Relationship Specialty Start Date End Date Molina Herr MD [facility] [address] [place] [address] PCP - General 01/27/10 documented as of this encounter
--- OUTSIDE RECORDS SUMMARY | 2023-10-17 15:09 | XMS_ITS | Encounter Summary ---
[place] [address] Care Team Providers Care Automotive Salesperson Name Role Phone Molina Herr MD Primary Care Provider [phone] Encounter Details Date Type Department Care Team (Late st Contact Info) Description 05/18/2023 Telephone [place] [address] Ernie Fuchs MD [facility] [place] [address] Social History Tobacco Use Types Packs/Day Years [...] encounter Miscellaneous Notes * Telephone Encounter - Camryn Klein - 05/18/2023 11:55 AM EDT I called and left a message for patient to call [phone] directly and schedule surgery with Dr. FUCHS. documented in this encounter Plan of Treatment Upcoming Encounters Date Type Department Care Team (Late st Contact Info) Description 10/27/2023 11:15 AM EDT Office Visit Palliative Medicine at [place] [address] Elly Alston MD [facility] HOSPICE [place] [address] 10/27/2023 1:00 PM EDT Office Visit Speech Therapy at [place] [address] Debra Franco, DIESEL TRACTOR ENGINE MECHANIC 11/03/2023 2:00 PM EDT Office Visit Speech Therapy at [place] [address] Debra Franco, DIESEL TRACTOR ENGINE MECHANIC 11/08/2023 2:30 PM EDT Appointment MRI at [place] [address] Navjot Grider MD [facility] [address] [place] [address] 11/09/2023 1:45 PM EDT Office Visit Hematology and Oncology at [place] [address] Isabell Jacob MD [facility] [place] [address] 11/11/2023 10:30 AM EDT Office Visit Radiation Oncology at [place] [address] Nicki Sharpe MD [facility] [place] [address] 11/15/2023 10:00 AM EDT Office Visit Speech Therapy at [place] [address] Debra Franco, DIESEL TRACTOR ENGINE MECHANIC 11/16/2023 9:00 AM EDT Office Visit Hematology [place] [address] Bisi Nam 11/22/2023 10:00 AM EDT Office [place] [address] Debra Franco SLP 11/30/2023 9:00 AM EDT Office Visit Hematology [place] [address] Bisi Nam 12/14/2023 9:00 AM EDT Office Visit Hematology [place] [address] Bisi Nam 12/28/2023 9:00 AM EDT Office Visit Hematology [place] [address] Bisi Nam documented as of this encounter Visit Diagnoses Not on filedocumented in this encounter Care Teams Automotive Salesperson Relationship Specialty Start Date End Date Molina Herr MD [address] [place] [address] PCP - General 01/27/10 documented as of this encounter
--- OUTSIDE RECORDS SUMMARY | 2023-10-17 15:09 | XMS_ITS | Encounter Summary ---
[place] [address] Care Team Providers Care Cell Operation Supervisor Name Role Phone Molina Herr MD Primary Care Provider Reason for Visit * Reason Onset Date Comments Medication Refill 07/08/2023 Encounter Details Date Type Department Care Team (Late st Contact Info) Description 07/08/2023 Refill [place] [phone] Clinic, Dr Fuchs Team None Status post total right knee replacement Social History Tobacco Use Types Packs/Day Years Used Date Smoking Tobacco: Never Smokeless Tobacco: Never Alcohol Use Standard Drinks/Week Comments Not Currently 0 (1 standard drink = 0.6 oz pur e alcohol) nothing in a few months [facility] Inpatient Questions Answer Date Recorded Does Anyone [...] encounter Miscellaneous Notes * Telephone Encounter - Ellen Correia RMA - 07/08/2023 9:13 AM EDTSummary: Medication refill - Dr Fuchs Images from the original note were not included. Medication Refill Request Surgery/Injury/Provider/DOS/DOI: Right TKA Dos 07/04/3033 Dr Fuchs Medication being requested: Tramadol (Ultram) 50mg Query: Last refill or Original Rx: Seen within 30 days (if no, than when): Dos 07/05/2023 Follow Up: 07/20/2023 Dr Fuchs How was this prescribed? Take one tablet every 6 hours as needed for pain How is this medication being used currently: takes one tablet every 6 hours Is there a discrepancy? (Why?) no Pain level: 8.5/10 Bowel concerns: taking stool softener Other pain medications used and how: Tylenol Yes 1000 mg -every 8 hrs Gabapentin No Naproxen No OTHER Celebrex 200 mg -taking twice daily Medication Taper Plan: Taper to the lowest effective maintenance dose. Continue additional scheduled pain medication along with RICE. Teaching done regarding: taking nonnarcotic pain medications, taking the least amount of opioid needed for the least amount of time for adequate pain management and tapering of opioids with verbalized understanding by the patient. Requested Prescription to be sent electronically to [facility] (location). Prescription prepped and pended for Aisha Branham PA-C (provider) review. The patient knows how to contact orthopaedics if any further questions or concerns occur. documented in this encounter Plan of Treatment Upcoming Encounters Date Type Department Care Team (Late st Contact Info) Description 10/27/2023 11:15 AM EDT Office Visit Palliative [place] [address] Elly Alston MD [facility] DR HOSPICE [place] [address] 10/27/2023 1:00 PM EDT Office Visit [place] [address] Debra Franco, SUPERVISOR DRAWING 11/03/2023 2:00 PM EDT Office Visit Speech Therapy at [place] [phone] Debra Franco, ROLANDO 11/08/2023 2:30 PM EDT Appointment MRI at [place] [address] Navjot Grider MD [facility] [address] [place] [address] 11/09/2023 1:45 PM EDT Office Visit Hematology and Oncology at [address] Isabell Jacob MD [facility] [place] [address] 11/11/2023 10:30 AM EDT Office Visit Radiation Oncology at [place] [phone] Nicki Sharpe MD [facility] [place] [address] 11/15/2023 10:00 AM EDT Office Visit [place] [address] Debra Franco SLP 11/16/2023 9:00 AM EDT Office Visit Hematology [place] [address] Bisi Nam 11/22/2023 10:00 AM EDT Office Visit [place] [address] Debra Franco, ROLANDO 11/30/2023 9:00 AM EDT Office Visit Hematology [place] [address] Bisi Nam 12/14/2023 9:00 AM EDT Office Visit Hematology [place] [address] Bisi Nam 12/28/2023 9:00 AM EDT Office Visit Hematology [place] [address] Bisi Nam documented as of this encounter Visit Diagnoses Diagnosis Status post total right knee replacement documented in this encounter Care Teams Cell Operation Supervisor Relationship Specialty Start Date End Date Molina Herr MD [address] [place] [address] PCP - General 01/27/10 documented as of this encounter
--- OUTSIDE RECORDS SUMMARY | 2023-10-17 15:09 | XMS_ITS | Encounter Summary ---
Author Organization [facility]ly [facility] Address [facility] [place] [address] Care Team Providers Care Road Mender Name Role Phone Molina Herr MD Primary Care Provider [phone] Encounter Details Date Type Department Care Team (Latest Contact Info) Description 05/25/2023 Travel Social History Tobacco Use Types Packs/Day [...] AM EDT Office [place] [address] Elly Alston MD [facility] DR HOSPICE [place] [address] 10/27/2023 1:00 PM EDT Office [place] [address] Debra Franco, GARMENT LOOPER 11/03/2023 2:00 PM EDT Office Visit Speech Therapy at [place] [phone] Debra Franco, ROLANDO 11/08/2023 2:30 PM EDT Appointment MRI at [address] Navjot Grider MD [facility] DR HEMATOLOGY [place] [address] 11/09/2023 1:45 PM EDT Office Visit Hematology and Oncology at [address] Isabell Jacob MD [facility] [place] [address] 11/11/2023 10:30 AM EDT Office Visit Radiation Oncology at [place] [phone] Nicki Sharpe MD [facility] [place] [address] 11/15/2023 10:00 AM EDT Office Visit Speech Therapy at [place] [phone] Debra Franco SLP 11/16/2023 9:00 AM EDT Office Visit Hematology [place] [address] Bisi Nam 11/22/2023 10:00 AM EDT Office [place] [address] Debra Franco SLP 11/30/2023 9:00 AM EDT Office Visit Hematology [place] [address] Bisi Nam 12/14/2023 9:00 AM EDT Office Visit Hematology [place] [address] Bisi Nam 12/28/2023 9:00 AM EDT Office Visit Hematology [place] [address] Bisi Nam documented as of this encounter Visit Diagnoses Not on filedocumented in this encounter Care Teams Road Mender Relationship Specialty Start Date End Date Molina Herr MD [address] [place] [address] PCP - General 01/27/10 documented as of this encounter
--- OUTSIDE RECORDS SUMMARY | 2023-10-17 15:09 | XMS_ITS | Encounter Summary ---
Author Organization Formerly [facility] Address [facility] [place] [address] Care Team Providers Care High School Mathematics Teacher Name Role Phone Molina Herr MD Primary Care Provider [phone] Encounter Details Date Type Department Care Team (Latest Contact Info) Description 05/11/2023 Travel Social History Tobacco Use Types Packs/Day [...] AM EDT Office Visit [place] [phone] Elly Alston MD [facility] DR HOSPICE AND [place] [address] 10/27/2023 1:00 PM EDT Office Visit [place] [phone] Debra Franco, NUMERICAL TOOL PROGRAMMER 11/03/2023 2:00 PM EDT Office Visit Speech Therapy at [place] [phone] Debra Franco, ROLANDO 11/08/2023 2:30 PM EDT Appointment MRI at [address] Navjot Grider MD [facility] DR HEMATOLOGY [place] [address] 11/09/2023 1:45 PM EDT Office Visit Hematology and Oncology at [address] Isabell Jacob MD [facility] [place] [address] 11/11/2023 10:30 AM EDT Office Visit Radiation Oncology at [place] [phone] Nicki Sharpe MD [facility] [place] [address] 11/15/2023 10:00 AM EDT Office Visit Speech Therapy at [place] [phone] Debra Franco SLP 11/16/2023 9:00 AM EDT Office Visit Hematology [place] [address] Bisi Nam 11/22/2023 10:00 AM EDT Office Visit [place] [address] Debra Franco SLP 11/30/2023 9:00 AM EDT Office Visit Hematology [place] [address] Bisi Nam 12/14/2023 9:00 AM EDT Office Visit Hematology [place] [address] Bisi Nam 12/28/2023 9:00 AM EDT Office Visit Hematology [place] [address] Bisi Nam documented as of this encounter Visit Diagnoses Not on filedocumented in this encounter Care Teams High School Mathematics Teacher Relationship Specialty Start Date End Date Molina Herr MD [address] [place] [address] PCP - General 01/27/10 documented as of this encounter
--- OUTSIDE RECORDS SUMMARY | 2023-10-17 15:09 | XMS_ITS | Encounter Summary ---
Author Organization [facility] Address [facility] [place] [address] Care Team Providers Care Hydraulic Lift Operator Name Role Phone Molina Herr MD Primary Care Provider [phone] Encounter Details Date Type Department Care Team (Latest Contact Info) Description 06/08/2023 Travel Social History Tobacco Use Types Packs/Day [...] AM EDT Office [place] [address] Elly Alston MD [facility] [address] HOSPICE [place] [address] 10/27/2023 1:00 PM EDT Office [place] [address] Debra Franco, STEREO MAP PLOTTER OPERATOR 11/03/2023 2:00 PM EDT Office Visit Speech Therapy at [place] [phone] Debra Franco, ROLANDO 11/08/2023 2:30 PM EDT Appointment MRI at [address] Navjot Grider MD [facility] [address] [place] [address] 11/09/2023 1:45 PM EDT Office Visit Hematology and Oncology at [address] Iasbell Jacob MD [facility] [place] [address] 11/11/2023 10:30 AM EDT Office Visit Radiation Oncology at [place] [phone] Nicki Sharpe MD [facility] [place] [address] 11/15/2023 10:00 AM EDT Office Visit Speech Therapy at [place] [phone] Debra Franco SLP 11/16/2023 9:00 AM EDT Office Visit Hematology [place] [address] Bisi Nam 11/22/2023 10:00 AM EDT Office [place] [address] Debra Franco SLP 11/30/2023 9:00 AM EDT Office Visit Hematology [place] [address] Bisi Nma 12/14/2023 9:00 AM EDT Office Visit Hematology [place] [address] Bisi Nma 12/28/2023 9:00 AM EDT Office Visit Hematology [place] [address] Bisi Nam documented as of this encounter Visit Diagnoses Not on filedocumented in this encounter Care Teams Hydraulic Lift Operator Relationship Specialty Start Date End Date Molina Herr MD [address] [place] [address] PCP - General 01/27/10 documented as of this encounter
--- OUTSIDE RECORDS SUMMARY | 2023-10-17 15:09 | XMS_ITS | Encounter Summary ---
Author Organization [facility] Address [facility] [place] [address] Care Team Providers Care Retail Merchandising Specialist Name Role Phone Molina Herr MD Primary Care Provider [phone] Reason for Visit * Auth/Cert (Routine) Specialty Diagnoses / Procedures Referred By Contac t Referred To Contact Diagnoses Primary osteoarthritis of right knee Right leg pain RIGHT KNEE DJD Procedures PRO ARTHROPLASTY KNEE CONDYLE & PLATEAU MEDIAL & LAT COMPARTMENTS Ernie Fuchs MD [facility] [place] [address] Referral ID Status Reason Start Date Expiration Date Visits Re quested Visits Authorized [id number] 05/18/2023 1 1 Encounter Details Date Type Department Care Team (Late st Contact Info) Description 07/05/2023 8:42 AM EDT Anesthesia [place] [address] Kenya Akins MD [facility] [place] [address] Jewel Fregoso MD [facility] [place] [address] Anesthesia Record Procedure Summary Procedure Name Responsible Anesthesiologist Anesthesia Start Time Anesthesia Stop Time TOTAL KNEE ARTHROPLASTY (WRVU 19.6) (Right: Knee) Kenya Akins MD 07/05/23 0842 07/05/23 1105 Events Date Time Event Comment 07/05/2023 0654 0842 AN Verify 0842 Start 0842 An Start Data 0859 Spinal 0912 Anesthesia Ready 0926 An Tourn Inflated 250mmHg 0927 Procedure Start 1013 An Tourn Deflated 1028 Break/Relief In I assumed ca re for Break Relief before which we: 1. Identified the patient 2. Identified the responsible provider(s) 3. Reviewed the pertinent medical history 4. Discussed the surgical plan and course 5. Reviewed intra-op anesthesia management and issues during anesthesia 6. Set expectations for the relief (and/or post-procedure) period 7. Allowed opportunity for questions and acknowledgement of understanding Kenya Akins MD 1046 Break/Relief Out 1059 an stop data 1104 Recovery or ICU Handoff Ajnel ent care was transferred to the destination unit staff after review of the patient's medical history, current anesthetic/surgical status and plan, according to the Provider Handoff Checklist. 1105 Stop Meds Name Total BUpivacaine 0.25% 30 mL dexmedeTOMIDine 16 mcg propofol INF 620.74 mg ceFAZolin 2 g tranexamic acid (TXA) 1,000 mg Mepivacaine (PF) 2% 60 mg ePHEDrine 50 mg lactated ringers 1,000 mL * Agents Name O2 Air N2O O2 Auxiliary Flowmeter 1 * Blood No blood administrations on file. Lines, Drains, and Airways Type Details Placement Removal PIV 07/05/23; 0619; iyea-[id number] catheter system; 18 gauge, 3/4 in length; cephalic vein (lateral side of arm), left; Crista Lambert RN; tolerated well, intradermal injection, distraction; 0; 07/06/23; 1401 07/05/23 0619 by Crista Lambert RN 07/06/23 1401 by Yolanda Solano RN Incision 07/05/23; 0936; Righ t, anterior; knee; 08/07/23; 1342 07/05/23 0936 by Neil Arrington RN 08/07/23 1342 [...] - - Temperature - - Respiratory Rate 17 07/05/2023 10:58 AM EDT Oxygen Saturation - - Inhaled Oxygen Concentration - - Weight - - Height - - Body Mass Index - - documented in this encounter OR Notes * Anesthesia Postprocedure Evaluation - Kenya Akins MD - 07/05/2023 11:05 AM EDT Department of Anesthesiology Post-procedure Note Patient: Perfecto Polk Procedure Summary Date: 07/05/23 Room / Location: [facility] OR [address] [place] [address] MAIN OR Anesthesia Start: 841 Anesthesia Stop: 1104 Procedures: TOTAL KNEE ARTHROPLASTY (WRVU 19.6) (Right: Knee) MODIFIER, ATTUNE CURVED ROTATING PLATFORM, DEPUY (Knee) Diagnosis: Primary osteoarthritis of right knee Right leg pain (RIGHT KNEE DJD) Surgeons: Ernie Fuchs MD Responsible Provider: Kenya Akins MD Anesthesia Type: spinal ASA Status: 3 All Anesthesia Providers: Anesthesiologist: Kenya Akins MD Building Inspector: Linda Castillo MD Vitals Value Taken Time BP 104/61 07/05/23 1102 Temp 36.4 ??C (97.5 ??F) 07/05/23 1102 Pulse 85 07/05/23 1102 Resp 16 07/05/23 1102 SpO2 94 % 07/05/23 1104 Pain Level Vitals shown include unfiled device data. Patient Location: PACU/SDP Level of Consciousness: Awake and Alert Pain Management: Satisfactory Analgesia PONV: None Cardiovascular Status: Hemodynamically Stable Respiratory Status: Room Air and Stable Respiratory Status Postoperative Fluid Status: Intravascular EUvolemia Possible Anesthetic Complications: NONE apparent at time of evaluation Final Primary Anesthesia Type: Spinal (The anesthetic type performed was the same as planned.) Comments: Awake, alert, and recovering comfortably in Same Day. Hemodynamically perfect and on room air. Denying any pain or nausea at this time. Spinal resolving appropriately. No immediate anesthetic complications. Linda Castillo MD * Anesthesia Procedure Notes - Linda Castillo MD - 07/05/2023 9:18 AM EDT Associated Order(s): Neuraxial Block Procedure: Neuraxial Block Primary Anesthetic Type: Spinal The patient was greeted. The sedation plan, its benefits, risks and alternatives were discussed with the patient. The patient has consented to the procedure. The medical history and chart were reviewed. The timeout was performed. Start time: 07/05/2023 8:43 AM End time: 07/05/2023 8:59 AM Patient Location: Block Room Patient Prep Position: Left lateral decubitus Prep: Hand Hygiene, Hat, Mask, Sterile Gloves, Chlorhexidine and Patient Draped Injection technique: single-shot Skin Anesthetic Lidocaine 1% 5 ml Procedure Technique Level of needle insertion: L4-5 Needle approach: midline Needle Type: Sprotte Gauge: 22 Number of attempts: 2 Medications: Date/Time: 07/05/2023 8:43 AM Mepivacaine (PF) 2% - Intrathecal 60 mg - 07/05/2023 8:59:00 AM Events/Notes Events: None Additional Notes: First attempt at L3-L4 with 25g spinal needle and repeatedly encountering os. Second attempt by attending at L4-L5 with 22g Sprotte. CSF aspirated prior to injection of local anesthetic. Block set up well. Performed by: Resident/CHART CLERK: Linda Castillo MD Attending Physician: Kenya Akins MD Authorized by: Kenya Akins MD ~~~~~~~~~~~~~~~~~~~~~~~~~~~~~~~~~~~~~~~~~~~~~~~~~~~~~~~~~~~~ * Anesthesia Procedure Notes - Jewel Fregoso MD - 07/05/2023 8:25 AM EDT Associated Order(s): Anesthesia Block Anesthesia Block Date/Time: 07/05/2023 8:15 AM Start Time: 07/05/2023 8:15 AM End Time: 07/05/2023 8:20 AM Patient Location: Block Room The patient was greeted; the risks and benefits of the procedure were reviewed. Indication: Post-op Pain Control Post-op pain management at the request of surgeon. Block Type: Adductor canal block Laterality: Right Position: Supine Prep: Chlorhexidine, patient draped and mask, cap, sterile gloves, hand hygeine Skin Anesthetic: Skin Anesthetic: Lidocaine 1% dose: 5 Block Technique: SonoPlex 21 10 cm Ultrasound Guided: YES and in-plane Ultrasound Image Saved Single-Shot: Single-shot Local Anesthetic Volume(s) Injected for Nerve Block: BUpivacaine 0.25% - Perineural 30 mL - 07/05/2023 8:15:00 AM Nerve Sensory/MotorTest: Events: no complications Notes: Target structures, needle, and local anesthetic spread were visualized under US guidance for the duration of the procedure. No blood aspirated, no pain on injection, no paresthesias. No needle to nerve contact was observed on ultrasound. Performed by: Resident/CHART CLERK: Jewel Fregoso MD Fellow: Melvin Medina MD Attending Physician: Carmelo Howard MD Authorized by: Carmelo Howard MD * Anesthesia Preprocedure Evaluation - Carmelo Howard MD - 07/04/2023 10:03 AM EDT Pre-Anesthesia Evaluation for: Perfecto Polk a 82 y.o. male. Procedure(s): TOTAL KNEE ARTHROPLASTY (WRVU 19.6) MODIFIER, ATTUNE CURVED ROTATING PLATFORM, DEPUY Patient Active Problem List Diagnosis Date Noted ??? Acute appendicitis 03/08/2017 ??? Primary osteoarthritis of left knee (DJD) 03/13/2014 ??? Osteomyelitis 08/31/2010 ??? Discitis of lumbar region 08/21/2010 ??? Lumbar degenerative disc disease 08/21/2010 Past Medical History: Diagnosis Date ??? Hyperlipidemia ??? Lumbar degenerative disc disease 08/21/2010 Past Surgical History: Procedure Laterality Date ??? PRO COLONOSCOPY, BIOPSY 01/10/2013 COLONOSCOPY FLEXIBLE, WITH BX performed by Dominick Earl MD at [facility] ENDOSCOPY ??? PRO COLONOSCOPY, REMV LESN, SNARE N/A 01/12/2018 COLONOSCOPY, POLYPECTOMY, REMOVAL LESION BY SNARE (WRVU 4.67) performed by Guerda Coombs MD at [facility] ENDOSCOPY ??? PRO COLONOSCOPY, REMV LESN, SNARE N/A 01/20/2023 COLONOSCOPY, POLYPECTOMY, REMOVAL LESION BY SNARE (WRVU 4.57) performed by Guerda Coombs MD at [facility] ENDOSCOPY ??? PRO LAP, APPENDECTOMY N/A 03/09/2017 LAPAROSCOPIC APPENDECTOMY (WRVU 9.45) performed by Saurav Chen MD at [facility] MAIN OR ??? PRO UPPER GI ENDOSCOPY, DIAGNOSTIC N/A 06/11/2021 EGD, UPPER GI ENDOSCOPY performed by Guerda Coombs MD at [facility] ENDOSCOPY Social History Tobacco Use ??? Smoking status: Never ??? Smokeless tobacco: Never Substance Use Topics ??? Alcohol use: Not Currently Comment: nothing in a few months Social History Substance and Sexual Activity Drug Use No Allergies Allergen Reactions ??? Penicillins Hives [facility] Penicillin Allergy Risk Assessment 06/13/2023: Low risk penicillin allergy. OK to receive full dose of cefazolin, cefuroxime, or any 3rd or 4th+ generation cephalosporin. Medications: MAR and/or home medications have been reviewed. Physical Exam: Preprocedure Vitals Current as of 07/04/23 1003 No BP, pulse, respiration, SpO2, or temperature recorded. Height: 175.3 cm (5' 9) (06/01/23) Weight: 83.5 kg (184 lb) (03/27/24) BMI: 27.17 IBW: 70.7 kg (155 lb 15.1 oz) Airway Assessment: Mallampati: I TM distance: >3 FB Neck ROM: full Cardiovascular Assessment: Rhythm: regular Rate: normal Pulmonary Assessment: unlabored breathing Dental Assessment: - normal exam Misc Assessment: Patient is wearing No contact(s). IV access: Peripheral line Last Filed Perioperative Cognitive Screening Value Time User AD8 Total Score: 0 06/13/2023 11:00 AM Dilshad Bocanegra RN AD8 Informant: Patient 06/13/2023 11:00 AM Dilshad Bocanegra RN CFS Frailty Score: 3 06/13/2023 11:00 AM Dilshad Bocanegra RN MiniCOG Total Score: 5 06/01/2023 11:35 AM Blair Bhat RMA Anesthesia Plan: ASA 3 spinal, with a(n) intravenous induction Perfecto Polk is a 82 y.o. male (BMI 27, 175 cm) with right knee djd presenting for right TKA. PMHx: CAD, hypothyroidism, GERD (well controlled) NPO adequate. No other recent illnesses/fevers. Activity tolerance: METS>4. Anesthesia Hx: Past airway: G1V Mac 4 2017. No prior issues with anesthesia. Labs (reviewed): Hb: 12.8 Plt: 267 Cr: 1.24 (baseline 1.2) Plan is for spinal (GA backup), block Region - Other Informed Consent: Anesthetic plan and risks discussed with patient. Anesthesia Screening documented in this encounter Plan of Treatment Upcoming Encounters Date Type Department Care Team (Late st Contact Info) Description 10/27/2023 11:15 AM EDT Office Visit [place] [phone] Elly Alston MD [facility] HOSPICE [place] [address] 10/27/2023 1:00 PM EDT Office [place] [address] Debra Franco, SLAG WHEELER 11/03/2023 2:00 PM EDT Office Visit Speech Therapy at [place] [phone] Debra Franco SLP 11/08/2023 2:30 PM EDT Appointment MRI at [address] Navjot Grider MD [facility] [address] [place] [address] 11/09/2023 1:45 PM EDT Office Visit Hematology and Oncology at [address] Isabell Jacob MD [facility] [place] [address] 11/11/2023 10:30 AM EDT Office Visit Radiation Oncology at [place] [phone] Nicki Sharpe MD [facility] [place] [address] 11/15/2023 10:00 AM EDT Office [place] [address] Debra Franco SLP 11/16/2023 9:00 AM EDT Office Visit Hematology [place] [address] Bisi Nam 11/22/2023 10:00 AM EDT Office [place] [address] Debra Franco SLP 11/30/2023 9:00 AM EDT Office Visit Hematology [place] [address] Bisi Nam 12/14/2023 9:00 AM EDT Office Visit Hematology [place] [address] Bisi Nam 12/28/2023 9:00 AM EDT Office Visit Hematology [place] [address] Cyril, Bisi Servin documented as of this encounter Procedures Procedure Name Priority Date/Time Associated Diagnosis Comments ANE NEURAXIAL APS USE Routine 07/05/2023 8:43 AM EDT ANESTHESIA BLOCK Routine 07/05/2023 8:15 AM EDT documented in this encounter Results * Neuraxial Block (07/05/2023 8:43 AM EDT) Narrative Kenya Akins MD - 07/05/2023 8:43 AM EDT Linda Castillo MD ? 07/05/2023 ??9:21 AM Procedure: ?? Neuraxial Block Primary Anesthetic Type: Spinal The patient was greeted. The sedation plan, its benefits, risks and alternatives were discussed with the patient. ??The patient has consented to the procedure. ??The medical history and chart were reviewed. ??The timeout was performed. Start time: 07/05/2023 8:43 AM End time: 07/05/2023 8:59 AM Patient Location: Block Room Patient Prep Position: Left lateral decubitus Prep: Hand Hygiene, Hat, Mask, Sterile Gloves, Chlorhexidine and Patient Draped Injection technique: single-shot Skin Anesthetic Lidocaine 1% ??5 ml Procedure Technique Level of needle insertion: L4-5 Needle approach: midline Needle Type: Sprotte Gauge: 22 Number of attempts: 2 Medications: Date/Time: ??07/05/2023 8:43 AM Mepivacaine (PF) 2% - Intrathecal 60 mg - 07/05/2023 8:59:00 AM Events/Notes Events: ??None Additional Notes: ??First attempt at L3-L4 with 25g spinal needle and repeatedly encountering os. Second attempt by attending at L4-L5 with 22g Sprotte. CSF aspirated prior to injection of local anesthetic. Block set up well. Performed by: ?? Resident/CHART CLERK: ? Linda Castillo MD ?? Attending Physician: ? Kenya Akins MD Authorized by: Kenya Akins MD ?? ~~~~~~~~~~~~~~~~~~~~~~~~~~~~~~~~~~~~~~~~~~~~~~~~~~~~~~~~~~~~ Kenya Akins MD [employer] [facility] * Anesthesia Block (07/05/2023 8:15 AM EDT) Narrative Carmelo Howard MD - 07/05/2023 8:15 AM EDT Jewel Fregoso MD ? 07/05/2023 ??8:26 AM Anesthesia Block Date/Time: 07/05/2023 8:15 AM Start Time: ??07/05/2023 8:15 AM End Time: ??07/05/2023 8:20 AM Patient Location: ??Block Room The patient was greeted; the risks and benefits of the procedure were reviewed. ?? Indication: ??Post-op Pain Control Post-op pain management at the request of surgeon. ?? Block Type: ??Adductor canal block Laterality: ??Right Position: ??Supine Prep: ??Chlorhexidine, patient draped and mask, cap, sterile gloves, hand hygeine Skin Anesthetic: ??Skin Anesthetic: ??Lidocaine 1% ??dose: ??5 Block Technique: ?? SonoPlex ?? 21 ?? 10 cm ??Ultrasound Guided: ??YES and in-plane ??Ultrasound Image Saved ?Single-Shot: ??Single-shot Local Anesthetic Volume(s) Injected for Nerve Block: ?? BUpivacaine 0.25% - Perineural 30 mL - 07/05/2023 8:15:00 AM Nerve Sensory/MotorTest: ??Events: no complications ?? Notes: ?? Target structures, needle, and local anesthetic spread were visualized under US guidance for the duration of the procedure. No blood aspirated, no pain on injection, no paresthesias. No needle to nerve contact was observed on ultrasound. Performed by: ?? Resident/CHART CLERK: ? Jewel Fregoso MD ?? Fellow: ?Melvin Medina MD ?? Attending Physician: ? Carmelo Howard MD Authorized by: Carmelo Howard MD ?? Carmelo Howard MD [employer]ATER [facility] documented in this encounter Visit Diagnoses Not on filedocumented in this encounter Administered Medications Inactive Administered Medications - up to 3 most recent administrations Medication Order MAR Action Action Date Dose Rate Site BUpivacaine (Marcaine) (2.5 mg/mL) 0.25% bolus injection (Anesthesia) Perineural, Starting on Tue07/05/23 at 0815, Until Tue07/05/23 at 0815, Anesthesia Intra-op, Routine Given 07/05/2023 8:15 AM EDT 30 mLs ceFAZolin (Ancef) (100 mg/mL) injection solution Intravenous, PRN, Starting on Tue07/05/23 at 0914, Until 07/05/23 at 1105, Anesthesia Intra-op, Routine Given 07/05/2023 9:14 AM EDT 2 g dexmedeTOMIDine (Precedex) (4 mcg/mL) bolus injection (Anesthsia) Intravenous, PRN, Starting on e 07/05/23 at 0850, Until Tu07/05/23 at 1105, Anesthesia Intra-op, Routine Given 07/05/2023 8:55 AM EDT 8 mcg Given 07/05/2023 8:50 AM EDT 8 mcg ePHEDrine sulfate (5 mg/mL) multi-dose injection Intramuscular, PRN, Starting on e 07/05/23 at 0925, Until Tu07/05/23 at 1105, Anesthesia Intra-op, Routine Given 07/05/2023 9:25 AM EDT 50 mg lactated ringers infusion Intravenous, CONTINUOUS PRN, Starting on e 07/05/23 at 0842, Until Tue07/05/23 at 1105, Anesthesia Intra-op New Bag 07/05/2023 10:55 AM EDT New Bag 07/05/2023 8:42 AM EDT mepivacaine (PF) (Carbocaine (PF)) 20 mg/mL (2 %) injection Intrathecal, Starting on Tue07/05/23 at 0859, Until Tue07/05/23 at 0859, Anesthesia Intra-op, Routine Given 07/05/2023 8:59 AM EDT 60 mg propofoL (Diprivan) (10 mg/mL) infusion Intravenous, CONTINUOUS PRN, Starting on Tue07/05/23 at 0912, Until Tue07/05/23 at 1105, Anesthesia Intra-op, Routine Rate/Dose Change 07/05/2023 9:42 AM EDT 65 mcg/kg/min 31.98 mL/hr Rate/Dose Change 07/05/2023 9:23 AM EDT 75 mcg/kg/min 36.9 mL/hr Rate/Dose Change 07/05/2023 9:19 AM EDT 85 mcg/kg/min 41.8 2 mL/hr tranexamic acid (Cyklokapron) (100 mg/mL) IV bolus Intravenous, Administer over 8 Hours, PRN, Starting on Tue07/05/23 at 0915, Until Tue07/05/23 at 1105, Anesthesia Intra-op, Routine Given 07/05/2023 9:15 AM EDT 1,000 mg documented in this encounter Care Teams Retail Merchandising Specialist Relationship Specialty Start Date End Date Molina Herr MD [address] [address] [place] [address] PCP - General 01/27/10 documented as of this encounter
--- OUTSIDE RECORDS SUMMARY | 2023-10-17 15:09 | XMS_ITS | Encounter Summary ---
[place] [address] Care Team Providers Care Registrar Assistant Name Role Phone Molina Herr MD Primary Care Provider [phone] Reason for Referral * Consultation (Routine) - Closed Specialty Diagnoses / Procedures Referred By Flo viveros Referred To Contact General Surgery Diagnoses Primary osteoarthritis of left knee Ailin Mccartney [place] [address] [facility] Surgery [address] [place] [address] Referral ID Status Reason Start Date Expiration Date V isits Requested Visits Authorized [id number] Closed Consult, Test & Treat 06/13/2023 06/12/2024 1 1 Encounter Details Date Type Department Care Team (Latest Contact Info) Description 06/13/2023 11:00 AM EDT Clinical [place] [address] Primary osteoarthritis of left knee (DJD) Social History Tobacco Use Types Packs/Day Years Used Date Smoking Tobacco: Never Smokeless Tobacco: Never Tobacco Cessation:Counseling Given: Not Answered Alcohol Use Standard Drinks/Week Comments Not Currently 0 (1 standard drink = 0.6 oz pur e alcohol) nothing in a few months IPV Inpatient Questions Answer Date Recorded Does [...] as of this encounter Progress Notes * Dilshad Bocanegra, RN - 06/13/2023 11:00 AM EDT PAT questionnaire reviewed with patient while in Pre Admission testing. Pre- operative instruction booklet reviewed. Patient verbalizes a good understanding of all information reviewed. PLAN: Testing: Labs Special medication instructions: No vitamins/supplements day of surgery The patient agrees to ask surgeon if any restrictions on aspirin and NSAIDS. Clearfast 1 bottle given to patient with instructions to drink 3 hours prior to surgery. Procedure date: 06/21/23 Ernie Fuchs MD No prior issues with anesthesia per patient. Preoperative Geriatric Vulnerability Screen: Surgery Details: Surgeon: Ernie Fuchs MD Planned Procedure: TOTAL KNEE ARTHROPLASTY (WRVU 19.6), MODIFIER, ATTUNE CURVED ROTATING PLATFORM, DEPUY Date of Planned Procedure: 06/21/2023 Final Risk Assessment: Is the patient high risk?: Yes Screening Results: Age >= 85: No Impaired Cognition per Mini-Cog: No Impaired Cognition per AD8: No Frailty Screen: Negative Impaired Mobility: Yes Delirium Risk: Impaired Functional Status: Yes, partially impaired/dependent Malnutrition: No Difficulty Swallowing: No Palliative Care Consult may be indicated: Not assessed Additional Notes/Comments: Patient would like to speak with surgeon again: No @[email or web address]@@[email or web address]([id number])@ documented in this encounter Plan of Treatment Upcoming Encounters Date Type Department Care Team (Late st Contact Info) Description 10/27/2023 11:15 AM EDT Office [place] [address] Elly Alston MD [facility] DR HOSPICE [place] [address] 10/27/2023 1:00 PM EDT Office Visit Speech Therapy at [address] Debra Franco, PHARMACY TECHNICIAN ASSISTANT 11/03/2023 2:00 PM EDT Office Visit Speech Therapy at [place] [phone] Debra Franco, PHARMACY TECHNICIAN ASSISTANT 11/08/2023 2:30 PM EDT Appointment MRI at [address] Navjot Grider MD [facility] [address] [place] [address] 11/09/2023 1:45 PM EDT Office Visit Hematology and Oncology at [address] Isabell Jacob MD [facility] [place] [address] 11/11/2023 10:30 AM EDT Office Visit Radiation Oncology at [place] [address] Nicki Sharpe MD [facility] [place] [address] 11/15/2023 10:00 AM EDT Office Visit Speech Therapy at [place] [phone] Debra Franco, PHARMACY TECHNICIAN ASSISTANT 11/16/2023 9:00 AM EDT Office Visit Hematology and Oncology at [place] [phone] Bisi Nam 11/22/2023 10:00 AM EDT Office [place] [address] Debra Franco, ROLANDO 11/30/2023 9:00 AM EDT Office Visit Hematology [place] [address] Bisi Nam 12/14/2023 9:00 AM EDT Office Visit Hematology [place] [address] Bisi Nam 12/28/2023 9:00 AM EDT Office Visit Hematology [place] [address] Bisi Nam Scheduled Referrals Name Type Priority Associated Diagnoses Orde r Schedule Amb Referral to Geriatric Surgery Program Outpatient Referral Routine Primary osteoarthritis of left knee (DJD) Ordered: 06/13/2023 documented as of this encounter Visit Diagnoses Diagnosis Primary osteoarthritis of left knee (DJD) Primary localized osteoarthrosis, lower leg documented in this encounter Care Teams Registrar Assistant Relationship Specialty Start Date End Date Molina Herr MD [address] [address] [place] [address] PCP - General 01/27/10 documented as of this encounter
--- OUTSIDE RECORDS SUMMARY | 2023-10-17 15:10 | XMS_ITS | Encounter Summary ---
Author Organization [facility] Address [facility] [place] [address] Care Team Providers Care Wagon Winder Name Role Phone Molina Herr MD Primary Care Provider Encounter Details Date Type Department Care Team (Latest Contact Info) Description 11/19/2022 Travel Social History Tobacco Use Types Packs/Day Years Used Date Smoking Tobacco: Never Smokeless Tobacco: Never Alcohol Use Standard Drinks/Week Comments Yes 0 (1 standard drink = 0.6 oz pur e alcohol) Sex and Gender Information Value Date Recorded Sex Assigned at Male 02/02/2021 9:04 PM EST Gender Identity Male 02/02/2021 9:04 PM EST Sexual Orientation Not on file documented as of this encounter Plan of Treatment Upcoming Encounters Date Type Department Care Team (Late st Contact Info) Description 10/27/2023 11:15 AM EDT Office [place] [address] Elly Alston MD [facility] DR HOSPICE AND [place] [address] 10/27/2023 1:00 PM EDT Office [place] [phone] Debra Franco, MILK PICKUP DRIVER 11/03/2023 2:00 PM EDT Office Visit Speech Therapy at [place] [phone] Debra Franco, MILK PICKUP DRIVER 11/08/2023 2:30 PM EDT Appointment MRI at [address] Navjot Grider MD [facility] DR HEMATOLOGY [place] [address] 11/09/2023 1:45 PM EDT Office Visit Hematology and Oncology at [address] Isabell Jacob MD [facility] [place] [address] 11/11/2023 10:30 AM EDT Office Visit Radiation Oncology at [address] Nicki Sharpe MD [facility] [place] [address] 11/15/2023 10:00 AM EDT Office Visit Speech Therapy at [place] [phone] Debra Franco, MILK PICKUP DRIVER 11/16/2023 9:00 AM EDT Office Visit Hematology [place] [address] Bisi Nam 11/22/2023 10:00 AM EDT Office [place] [address] Debra Franco, ROLANDO 11/30/2023 9:00 AM EDT Office Visit Hematology [place] [address] Bisi Nam 12/14/2023 9:00 AM EDT Office Visit [place]ology [place] [address] Bisi Nam 12/28/2023 9:00 AM EDT Office Visit Hematology [place] [address] Bisi Nam documented as of this encounter Visit Diagnoses Not on filedocumented in this encounter Care Teams Wagon Winder Relationship Specialty Start Date End Date Molina Herr MD [address] [place] [address] PCP - General 01/27/10 documented as of this encounter
--- OUTSIDE RECORDS SUMMARY | 2023-10-17 15:10 | XMS_ITS | Encounter Summary ---
Author Organization [facility] [place] [address] Care Team Providers Care Ornamental Bronze Worker Name Role Phone Molina Herr MD Primary Care Provider [phone] Reason for Visit * Reason Comments Follow-up L ACHILLES TENDON RU PTURE DOI AUGUST 2022 Encounter Details Date Type Department Care Team (Late st Contact Info) Description 11/30/2022 4:00 PM EDT Office [place] [phone] Morris Heck, MURPHY [facility] [place] [address] Complete rupture of Achilles tendon, left, subsequent encounter Social History Tobacco Use Types Packs/Day [...] - Inhaled Oxygen Concentration - - Weight 83.9 kg (185 lb) 11/30/2022 3:40 PM EDT Height 175.3 cm (5' 9) 11/30/2022 3:40 PM EDT Body Mass Index 27.32 11/30/2022 3:40 PM EDT documented in this encounter Progress Notes * Morris Heck PA - 11/30/2022 4:00 PM EDT PATIENT NAME: Perfecto Polk AGE: 82 y.o. MR#: [id number] DATE OF VISIT: 11/30/2022 STAFF: Morris Heck PA-C FOLLOW UP FOR: Achilles tendon rupture HISTORY OF PRESENT ILLNESS: Mr. Polk is a 82 y.o. male who comes into clinic today for follow up of the above. The patient reports that their ankle is still swollen and experiences occasional dull pain. The pain is not severe and occurs mainly when lying down or during certain movements. The patient also mentions a hip drop and clunking sensation on the right side while walking possibly attributable to a weakness in toe off. They have been performing strengthening exercises and balance activities as part of their treatment at . The patient expresses concern about their gait and Achilles strength. They mention a lump near the ankle where the tendon attaches. 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 The patientexpresses a desire to regain full tendon function and discusses their current limitations and cramping in the leg. They mention upcoming physical therapy appointments and their availability for more sessions. The patient also shares information about their work history and connections to local companies. 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 Lumbar degenerative disc disease M51.36 Osteomyelitis M86.9 Primary osteoarthritis of left knee (DJD) M17.12 Acute appendicitis K35.80 PAST SURGICAL HX: Past Surgical History: Procedure Laterality Date PRO COLONOSCOPY, BIOPSY 01/10/2013 COLONOSCOPY FLEXIBLE, WITH BX performed by Dominick Earl MD at [facility] END[facility] PRO COLONOSCOPY, REMV LESN, SNARE N/A 01/12/2018 COLONOSCOPY, POLYPECTOMY, REMOVAL LESION BY SNARE (WRVU 4.67) performed by Guerda Coombs MD at [facility] END[facility]COPY PRO LAP, APPENDECTOMY N/A 03/09/2017 LAPAROSCOPIC APPENDECTOMY (WRVU 9.45) performed by Saurav Chen MD at [facility] MAIN OR PRO UPPER GI ENDOSCOPY, DIAGNOSTIC N/A 06/11/2021 EGD, UPPER GI ENDOSCOPY performed by Guerda Coombs MD at [facility] END[facility]COPY FAMILY HX: Family History Problem Relation Age of Onset Cancer Brother SOCIAL HX: Social History Occupational History Not on file Tobacco Use Smoking status: Never Smokeless tobacco: Never Vaping Use Vaping Use: Never used Substance and Sexual Activity Alcohol use: Yes Drug use: No Sexual activity: Not on file 11/23/2022 11:45 AM General Health, Prior Treatments, PreExisting Condition, Health Habits, About You PROMIS-10 General Health Excellent PROMIS-10 Quality of Life Excellent PROMIS-10 Physical Health Excellent PROMIS-10 Mental Health Excellent PROMIS-10 Social Activity Excellent PROMIS-10 Everyday Activities Completely PROMIS-10 Pain 3 PROMIS-10 Fatigue None PROMIS-10 Social Roles Excellent PROMIS-10 Anxious or Depressed Never PROMIS PHYSICAL SCORE (range 16-68) 61.9 PROMIS MENTAL SCORE (range 21-68) 67.6 Treatments Tried Brace Physical therapy Electrical stimulation (TENS/Transcutaneous Electrical Nerve Stimulation) 02/02/2021 9:23 PM Orthopeadics [facility] Response KOOS JR Scores 68.28 02/02/2021 9:23 PM Spine [facility] Response KOOS JR Scores 68.28 PHYSICAL EXAM: Mr. Polk is a 82 y.o. male General appearance: in no acute distress, alert, cooperative Psych: cooperative with exam, appropriate Head: normocephalic, atraumatic EENT: EOMI grossly intact Neck: supple, trachea midline Cardiac: regular rate and rhythm by peripheral pulse Lungs: no extra work of breathing Musculoskeletal Left foot and ankle Left foot and ankle - Swollen ankle with dull pain on palpation at the achilles substance. Palpable diastasis still present at the achilles substance. - Difficulty rolling toes and maintaining proper gait. Patient does not toe off on the left foot and has difficulty supportin his weight on the left side - Tendinous lump near the ankle where the tendon attaches. - Achilles strength being worked on through exercises but currently 5/5 plantarflexion. Weaker thanon the right foot. DIAGNOSTIC STUDIES: No new diagnostic images were performed today ASSESSMENT: Status post Achilles tendon rupture. PLAN: Problem/Diagnosis: Ankle Swelling and Dull Pain 1. Treatment Plan: - Continue with current non-surgical approach for torn achilles tendon per patients desire. The risks vs benefits of no operative management were made clear to the patient and I discussed strict adherence to the therapies for non operative treatment including strict adherence to wearing his boot with 2-3 wedges while weightbearing. The patient has loosely followed the recommendations and did not wear his boot in the mornings or at night when sleeping which I fear may cause some over lengtheningof the achilles and reduce his push off strength. - Encourage patient to monitor pain levels and report any significant changes. - Advise patient to avoid activities that exacerbate pain and swelling. - Continue with strengthening exercises using rubber bands and balance exercises. - Recommend patient to wear compression socks to help reduce swelling. - Educate patient on the expected timeline for swelling reduction (6 to 8 months) and 18 months forfull recovery of achilles tear. Problem/Diagnosis: Tendinous Tissue Lump near Ankle 1. Treatment Plan: - Explain to the patient that the lump is tendinous tissue that has sagged down due to non-surgicaltreatment. - Continue with current treatment plan and exercises to strengthen the Achilles tendon. Problem/Diagnosis: Achilles Strength and Range of Motion 1. Treatment Plan: - Continue with current exercises to strengthen the Achilles tendon. - Instruct patient to perform rising up on the right leg and coming down slowly and uniformly. - Caution patient to be mindful of any popping or discomfort during exercises. - Discuss the importance of gradually increasing range of motion and avoiding excessive stretching at this stage of recovery. Problem/Diagnosis: Return to Volunteer Activities 1. Treatment Plan: - Assess patient's readiness to resume volunteer activities based on functional improvement and pain levels. - Advise patient to gradually increase activity levels and be mindful of any discomfort or limitations. - Recommend modifications to activities, such as walking at a slower pace and avoiding excessive physical labor. - Encourage patient to communicate with the volunteer organizations regarding any necessary accommodations. Follow-up: - Schedule a follow-up appointment in four weeks to assess progress and adjust treatment plan if needed. - Encourage patient to reach out with any questions or updates through the patient portal. - Sign any necessary documents from physical therapy to continue treatment. Morris Heck PA-C, [facility] Department of Orthopaedics [facility] Pager [phone] documented in this encounter Plan of Treatment Upcoming Encounters Date Type Department Care Team (Late st Contact Info) Description 10/27/2023 11:15 AM EDT Office Visit Palliative Medicine at [place] [address] Elly Alston MD [facility] [address] HOSPICE AND [place] [address] 10/27/2023 1:00 PM EDT Office Visit Speech Therapy at [place] [address] Debra Franco, STERILE PROCESSING TECH 11/03/2023 2:00 PM EDT Office Visit Speech Therapy at [place] [address] Debra Franco, STERILE PROCESSING TECH 11/08/2023 2:30 PM EDT Appointment MRI at [place] [address] Navjot Grider MD [facility] [address] HEMATOLOGY [place] [address] 11/09/2023 1:45 PM EDT Office Visit Hematology and Oncology at [place] [address] Isabell Jacob MD [facility] [place] [address] 11/11/2023 10:30 AM EDT Office Visit Radiation Oncology at [place] [address] Nicki Sharpe MD [facility] [place] [address] 11/15/2023 10:00 AM EDT Office [place] [address] Debra Franco, STERILE PROCESSING TECH 11/16/2023 9:00 AM EDT Office Visit Hematology [place] [address] Bisi Nam 11/22/2023 10:00 AM EDT Office [place] [address] Debra Franco STERILE PROCESSING TECH 11/30/2023 9:00 AM EDT Office Visit Hematology [place] [address] Bisi Nam 12/14/2023 9:00 AM EDT Office Visit [place]ematology [place] [address] Bisi Nam 12/28/2023 9:00 AM EDT Office Visit [place]ematology [place] [address] Bisi Nam documented as of this encounter Visit Diagnoses Diagnosis Complete rupture of Achilles tendon, left, subsequent encounter documented in this encounter Care Teams Ornamental Bronze Worker Relationship Specialty Start Date End Date Molina Herr MD [address] [place] [address] PCP - General 01/27/10 documented as of this encounter
--- OUTSIDE RECORDS SUMMARY | 2023-10-17 15:10 | XMS_ITS | Encounter Summary ---
Author Organization [facility] Address [facility] [place] [address] Care Team Providers Care Site Coordinator Name Role Phone Molina Herr MD Primary Care Provider [phone] Encounter Details Date Type Department Care Team (Latest Contact Info) Description 12/28/2022 Travel Social History Tobacco Use Types Packs/Day [...] AM EDT Office [place] [address] Elly Alston MD [facility] DR HOSPICE AND [place] [address] 10/27/2023 1:00 PM EDT Office [place] [phone] Debra Franco, FOREST ECONOMIST 11/03/2023 2:00 PM EDT Office Visit Speech Therapy at [place] [phone] Debra Franco, FOREST ECONOMIST 11/08/2023 2:30 PM EDT Appointment MRI at [address] Navjot Grider MD [facility] DR HEMATOLOGY [place] [address] 11/09/2023 1:45 PM EDT Office Visit Hematology and Oncology at [address]1000 Isabell Jacob MD [facility] [place] [address] 11/11/2023 10:30 AM EDT Office Visit Radiation Oncology at [address]1000 Nicki Sharpe MD [facility] DR [place] [address] 11/15/2023 10:00 AM EDT Office Visit Speech Therapy at [place] [phone] Debra Franco, FOREST ECONOMIST 11/16/2023 9:00 AM EDT Office Visit Hematology [place] [address] Bisi Nam 11/22/2023 10:00 AM EDT Office [place] [address] Debra Franco, ROLANDO 11/30/2023 9:00 AM EDT Office Visit Hematology [place] [address] Bisi Nam 12/14/2023 9:00 AM EDT Office Visit Hematology [place] [address] Biis Nam 12/28/2023 9:00 AM EDT Office Visit Hematology [place] [address] Bisi Nam documented as of this encounter Visit Diagnoses Not on filedocumented in this encounter Care Teams Site Coordinator Relationship Specialty Start Date End Date Molina Herr MD [address] [place] [address] PCP - General 01/27/10 documented as of this encounter
--- OUTSIDE RECORDS SUMMARY | 2023-10-17 15:10 | XMS_ITS | Encounter Summary ---
Author Organization [facility] [place] [address] Care Team Providers Care Airport Attendant Name Role Phone Molina Herr MD Primary Care Provider [phone] Reason for Visit * Reason Comments Follow-up Encounter Details Date Type Department Care Team (Late st Contact Info) Description 10/27/2022 8:30 AM EDT Office Visit [place] [address] Danuta Alvarez MD [facility] DR [place] [address] Achilles tendon rupture, left, initial encounter Social History Tobacco Use Types Packs/Day [...] - Inhaled Oxygen Concentration - - Weight 81.6 kg (180 lb) 10/27/2022 8:07 AM EDT Height 175.3 cm (5' 9) 10/27/2022 8:07 AM EDT Body Mass Index 26.58 10/27/2022 8:07 AM EDT documented in this encounter Progress Notes * Morris Heck PA - 10/27/2022 8:30 AM EDT PATIENT NAME: Perfecto Polk AGE: 82 y.o. MR#: [id number] DATE OF VISIT: 10/27/2022 STAFF: Morris Heck PA-C FOLLOW UP FOR: Achilles tendon rupture HISTORY OF PRESENT ILLNESS: Mr. Polk is a 82 y.o. male who comes into clinic today for follow up of the above. He is doing well overall and believes that he is progressing nicely in his boot. He hasbeen wearing his boot for the majority of the day with 2 wedges then for the past several weeks since last time I saw him. He reports that he does not wear it when he is in bed and when he gets up first thing in the morning however for the rest of the day he does wear it. Medications and Allergies were reviewed in eD-H [...] BX performed by Dominick Earl MD at [facility] PRO COLONOSCOPY, REMV LESN, SNARE N/A 01/12/2018 COLONOSCOPY, POLYPECTOMY, REMOVAL LESION BY SNARE (WRVU 4.67) performed by Guerda Coombs MD at [facility] END[facility]COPY PRO LAP, APPENDECTOMY N/A 03/09/2017 LAPAROSCOPIC APPENDECTOMY (WRVU 9.45) performed by Saurav Chen MD at [facility] MAIN OR PRO UPPER GI ENDOSCOPY, DIAGNOSTIC N/A 06/11/2021 EGD, UPPER GI ENDOSCOPY performed by Guerda Coombs MD at [facility] FAMILY HX: Family History Problem Relation Age of Onset Cancer Brother SOCIAL HX: Social History Occupational History Not on file Tobacco Use Smoking status: Never Smokeless tobacco: Never Vaping Use Vaping Use: Never used Substance and Sexual Activity Alcohol use: Yes Drug use: No Sexual activity: Not on file 10/26/2022 11:17 AM General Health, Prior Treatments, PreExisting Condition, Health Habits, About You PROMIS-10 General Health Excellent PROMIS-10 Quality of Life Excellent PROMIS-10 Physical Health Very Good PROMIS-10 Mental Health Excellent PROMIS-10 Social Activity Excellent PROMIS-10 Everyday Activities Mostly PROMIS-10 Pain 3 PROMIS-10 Fatigue Mild PROMIS-10 Social Roles Very Good PROMIS-10 Anxious or Depressed Never PROMIS PHYSICAL SCORE (range 16-68) 50.8 PROMIS MENTAL SCORE (range 21-68) 67.6 Treatments Tried Brace Orthotics Physical therapy Over the counter anti-inflammatory drugs (e.g Advil, Aspirin, Aleve) Prescribed anti-inflammatory drugs Electrical stimulation (TENS/Transcutaneous Electrical Nerve Stimulation) Prior Surgery None 02/02/2021 9:23 PM Orthope[facility]ics [facility] Response KOOS [...] of breathing Musculoskeletal Left foot and ankle Inspection: Midfoot arch: neutral Hindfoot: neutral The skin over the foot and ankle is pink in color, warm and well perfused without calluses or lesions present. Palpation: Ankle joint line: No TTP Medial malleolus: No TTP Lateral malleolus (anterior or posterior): No TTP Sinus tarsi: No TTP Achilles tendon: There is a small diastases about 4 cm proximal to the Achilles insertion which hasdecreased in size since the previous time I have seen him. Achilles tendon insertion: No TTP Subtalar joint: No TTP CC joint: No TTP TN joint: No TTP Hindfoot: No TTP Midfoot: No TTP Forefoot: No TTP Heads of the metatarsals: No TTP MTP joints: No TTP Sesamoids: No TTP Phalanges and IP joints: No TTP Strength: Ankle dorsiflexion: 5/5 and no pain Ankle plantarflexion: 5/5 and no pain Ankle inversion: 5/5 and no pain Ankle eversion with the toes pointed: 5/5. No pain or subluxation of the peroneals Neurovascular: Brisk capillary refill at the distal most aspect of the hallux and lesser toes Posterior tibial artery: 2+ Dorsalis pedis artery: 2+ Sural Nerve: Sensation intact to light touch Saphenous Nerve: Sensation intact to light and gross touch Tibial Nerve: Sensation intact to light and gross touch Deep peroneal Nerve: Sensation intact to light and gross touch Superficial peroneal Nerve: Sensation intact to light and gross touch DIAGNOSTIC STUDIES: No new diagnostic images were performed today ASSESSMENT: Status post Achilles tendon rupture. PLAN: At this point time I would like the patient to take 1 wedge out of his Achilles boot. I have provided him with a gel heel cup to alleviate some of the plantar heel pain that he is having. I would like him to follow-up in 1 week keeping his appointment. At this point we will take the last wedge out.I am okay with him doing some active plantarflexion against resistance however I would strongly encourage him to avoid dorsiflexing past 90 degrees at this point to allow him the best chance to tighten up his Achilles and gained back the maximal amount of strength. I am also okay with the patient swimming at this point as long as he is conscientious of not dorsiflexing his foot. I encouraged him to wear something around his left ankle to remind him not to dorsiflex while he is in the water. The patient expressed agreement with and understanding of this plan of care. The patient understands to contact us if they have any other questions or concerns. The above documentation was completed using [employer] voice recognition software. Morris Heck PA-C, [facility] Department of Orthopaedics [facility] Pager [phone] documented in this encounter Plan of Treatment Upcoming Encounters Date Type Department Care Team (Late st Contact Info) Description 10/27/2023 11:15 AM EDT Office Visit [place] [phone] Elly Alston MD [facility] HOSPICE AND P[place]IAT[place] [address] 10/27/2023 1:00 PM EDT Office Visit Speech Therapy at [place] [address] Debra Franco, LINEN WORKER 11/03/2023 2:00 PM EDT Office Visit Speech Therapy at [place] [phone] Debra Franco, LINEN WORKER 11/08/2023 2:30 PM EDT Appointment MRI at [address] Navjot Grider MD [facility] HEMATOLOGY [place] [address] 11/09/2023 1:45 PM EDT Office Visit Hematology and Oncology at [place] [address] Isabell Jacob MD [facility] [place] [address] 11/11/2023 10:30 AM EDT Office Visit Radiation Oncology at [place] [address] Nicki Sharpe MD [facility] DR [place] [address] 11/15/2023 10:00 AM EDT Office Visit Speech Therapy at [place] [phone] Debra Franco, LINEN WORKER 11/16/2023 9:00 AM EDT Office Visit Hematology and Oncology at [place] [phone] Bisi Nam 11/22/2023 10:00 AM EDT Office Visit [place] [address] Debra rFanco, ROLANDO 11/30/2023 9:00 AM EDT Office Visit Hematology [place] [address] Bisi Nam 12/14/2023 9:00 AM EDT Office Visit Hematology [place] [address] Bisi Nam 12/28/2023 9:00 AM EDT Office Visit Hematology [place] [address] Bisi Nam documented as of this encounter Visit Diagnoses Diagnosis Achilles tendon rupture, left, initial encounter documented in this encounter Care Teams Airport Attendant Relationship Specialty Start Date End Date Molina Herr MD [address] [place] [address] PCP - General 01/27/10 documented as of this encounter
--- OUTSIDE RECORDS SUMMARY | 2023-10-17 15:10 | XMS_ITS | Encounter Summary ---
Author Organization [facility] Address [facility] [place] [address] Care Team Providers Care Tubing Machine Tender Name Role Phone Molina Herr MD Primary Care Provider [phone] Encounter Details Date Type Department Care Team (Latest Contact Info) Description 04/01/2023 Travel Social History Tobacco Use Types Packs/Day [...] AM EDT Office Visit [place] [phone] Elly Alston MD [facility] DR HOSPICE [place] [address] 10/27/2023 1:00 PM EDT Office [place] [phone] Debra Franco, MERCERIZING RANGE CONTROLLER 11/03/2023 2:00 PM EDT Office Visit Speech Therapy at [place] [phone] Debra Franco, ROLANDO 11/08/2023 2:30 PM EDT Appointment MRI at [address] Navjot Grider MD [facility] DR HEMATOLOGY [place] [address] 11/09/2023 1:45 PM EDT Office Visit Hematology and Oncology at [address] Isabell Jacob MD [facility] [place] [address] 11/11/2023 10:30 AM EDT Office Visit Radiation Oncology at [place] [phone] Nicki Sharpe MD [facility] [place] [address] 11/15/2023 10:00 AM EDT Office Visit Speech Therapy at [place] [phone] Debra Franco SLP 11/16/2023 9:00 AM EDT Office Visit Hematology [place] [address] Bisi Nam 11/22/2023 10:00 AM EDT Office [place] [address] Debra Franco SLP 11/30/2023 9:00 AM EDT Office Visit Hematology [place] [address] Bisi Nam 12/14/2023 9:00 AM EDT Office Visit Hematology [place] [address] Bisi Nam 12/28/2023 9:00 AM EDT Office Visit Hematology [place] [address] Bisi Nam documented as of this encounter Visit Diagnoses Not on filedocumented in this encounter Care Teams Tubing Machine Tender Relationship Specialty Start Date End Date Molina Herr MD [address] [place] [address] PCP - General 01/27/10 documented as of this encounter
--- OUTSIDE RECORDS SUMMARY | 2023-10-17 15:10 | XMS_ITS | Encounter Summary ---
Author Organization [facility] [place] [address] Care Team Providers Care Lithographic Press Operator Apprentice Name Role Phone Molina Herr MD Primary Care Provider [phone] Reason for Referral * Physical Therapy (Routine) - Closed Specialty Diagnoses / Procedures Referred By Flo viveors Referred To Contact Physical Therapy Diagnoses Achilles tendon rupture, left, initial encounter Morris Heck PA [facility] [place] [address] Flor Law, PT [facility] PHYSICAL MEDICINE & [place] [address] Referral ID Status Reason Start Date Expiration Date V isits Requested Visits Authorized [id number] Closed Evaluate and Treat 11/02/2022 05/01/2023 12 12 Reason for Visit * Reason Comments Follow-up L ACHILLES TENDON RU PTURE DOI AUGUST 2022 Encounter Details Date Type Department Care Team (Late st Contact Info) Description 11/02/2022 10:00 AM EDT Office [place] [address] Morris Heck PA [facility] [place] [address] Achilles tendon rupture, left, initial encounter Social [...] - - Weight 81.6 kg (180 lb) 11/02/2022 9:34 AM EDT Height 175.3 cm (5' 9) 11/02/2022 9:34 AM EDT Body Mass Index 26.58 11/02/2022 9:34 AM EDT documented in this encounter Progress Notes * Morris Heck PA - 11/02/2022 10:00 AM EDT PATIENT NAME: Perfecto Polk AGE: 82 y.o. MR#: [id number] DATE OF VISIT: 11/02/2022 STAFF: Morris Heck PA-C FOLLOW UP FOR: Achilles tendon rupture HISTORY OF PRESENT ILLNESS: Mr. Polk is a 82 y.o. male who comes into clinic today for follow up of the above. He is doing well overall and denies any differences or changes from last week's visit. He continues to be compliant with wearing his boot except for in the morning when he gets out of bed, showers and eats breakfast. He is conscious during these times not to dorsiflex past 90 degrees. Medications and Allergies were reviewed in eD-H [...] BX performed by Dominick Earl MD at [facility] ENDOSCOPY PRO COLONOSCOPY, REMV LESN, SNARE N/A 01/12/2018 COLONOSCOPY, POLYPECTOMY, REMOVAL LESION BY SNARE (WRVU 4.67) performed by Guerda Coombs MD at [facility] ENDOSCOPY PRO LAP, APPENDECTOMY N/A 03/09/2017 LAPAROSCOPIC APPENDECTOMY (WRVU 9.45) performed by Saurav Chen MD at [facility] MAIN OR PRO UPPER GI ENDOSCOPY, DIAGNOSTIC N/A 06/11/2021 EGD, UPPER GI ENDOSCOPY performed by Guerda Coombs MD at [facility] ENDOSCOPY FAMILY HX: Family History Problem [...] tarsi: No TTP Achilles tendon: There is still a small diastases about 4 cm proximal to the Achilles insertion. Achilles tendon insertion: No TTP Strength: Ankle dorsiflexion: 5/5 and [...] I would like the patient to take the last wedge from his boot out. He may wear the boot for another week and then at that point he may start a boot weaning protocol which I have discussed with this visit. After this week I would like the patient to begin physical therapy with some gentle eccentric strengthening exercises. The patient would like to begin swimming. I believe thatthis is okay so long as he does not dorsiflex past 90 degrees. I have sent a new physical therapy prescription for him outlining the restrictions that he has. I would like to see him back in 4 weeks for repeat functional evaluation. The patient expressed agreement with and understanding of this plan of care. The patient understands to contact us if they have any other questions or concerns. The above documentation was completed using [employer] voice recognition software. Morris Heck PA-C, MPAS Department of Orthopaedics [facility] Pager [phone] documented in this encounter Plan of Treatment Upcoming Encounters Date Type Department Care Team (Late st Contact Info) Description 10/27/2023 11:15 AM EDT Office Visit Palliative Medicine at [place] [address] Elly Alston MD [facility] DR HOSPICE [place] [address] 10/27/2023 1:00 PM EDT Office Visit Speech Therapy at [place] [address] Debra Franco, HATCHERY MANAGER 11/03/2023 2:00 PM EDT Office Visit Speech Therapy at [place] [address] Debra Franco, HATCHERY MANAGER 11/08/2023 2:30 PM EDT Appointment MRI at [place] [address] Navjot Grider MD [facility] DR [place] [address] 11/09/2023 1:45 PM EDT Office Visit Hematology and Oncology at [place] [address] Isabell Jacob MD [facility] [address] 11/11/2023 10:30 AM EDT Office Visit Radiation Oncology at [place] [address] Nicki Sharpe MD [facility] [place] [address] 11/15/2023 10:00 AM EDT Office Visit Speech Therapy at [place] [phone] Debra Franco, HATCHERY MANAGER 11/16/2023 9:00 AM EDT Office Visit Hematology and Oncology at [place] [phone] Bisi Nam 11/22/2023 10:00 AM EDT Office [place] [address] Debra Franco, HATCHERY MANAGER 11/30/2023 9:00 AM EDT Office Visit Hematology [place] [address] Bisi Nam 12/14/2023 9:00 AM EDT Office Visit Hematology [place] [address] Bisi Nam 12/28/2023 9:00 AM EDT Office Visit Hematology [place] [address] Bisi Nam Scheduled Referrals Name Type Priority Associated Diagnoses Orde r Schedule Referral to Physical Therapy Outpatient Referral Routine Achilles tendon rupture, left, initial encounter Ordered: 11/02/2022 documented as of this encounter Visit Diagnoses Diagnosis Achilles tendon rupture, left, initial encounter documented in this encounter Care Teams Lithographic Press Operator Apprentice Relationship Specialty Start Date End Date Molina Herr MD [address] [place] [address] PCP - General 01/27/10 documented as of this encounter
--- OUTSIDE RECORDS SUMMARY | 2023-10-17 15:10 | XMS_ITS | Encounter Summary ---
Author Organization [facility] Address [facility] [place] [address] Care Team Providers Care Screw Down Name Role Phone Molina Herr MD Primary Care Provider [phone] Encounter Details Date Type Department Care Team (Latest Contact Info) Description 12/11/2022 Travel Social History Tobacco Use Types Packs/Day [...] AM EDT Office [place] [address] Elly Alston MD [facility] [address] HOSPICE [place] [address] 10/27/2023 1:00 PM EDT Office [place] [phone] Debra Franco, SANDWICH PEDDLER 11/03/2023 2:00 PM EDT Office Visit Speech Therapy at [place] [phone] Debra Franco, SANDWICH PEDDLER 11/08/2023 2:30 PM EDT Appointment MRI at [address]1000 Navjot Grider MD [facility] [place] [address] 11/09/2023 1:45 PM EDT Office Visit Hematology and Oncology at [address]1000 Isabell Jacob MD [facility] [place] [address] 11/11/2023 10:30 AM EDT Office Visit Radiation Oncology at [address] Nicki Sharpe MD [facility] [place] [place] [address] 11/15/2023 10:00 AM EDT Office Visit Speech Therapy at [place] [phone] Debra Franco, SANDWICH PEDDLER 11/16/2023 9:00 AM EDT Office Visit Hematology [place] [address] Bisi Nam 11/22/2023 10:00 AM EDT Office [place] [address] Debra Franco, ROLANDO 11/30/2023 9:00 AM EDT Office Visit Hematology [place] [address] Bisi Nam 12/14/2023 9:00 AM EDT Office Visit Hematology [place] [address] Bisi Nam 12/28/2023 9:00 AM EDT Office Visit [place]ematology [place] [address] Bisi Nam documented as of this encounter Visit Diagnoses Not on filedocumented in this encounter Care Teams Screw Down Relationship Specialty Start Date End Date Molina Herr MD [address] [place] [address] PCP - General 01/27/10 documented as of this encounter
--- OUTSIDE RECORDS SUMMARY | 2023-10-17 15:10 | XMS_ITS | Encounter Summary ---
Author Organization [facility] [place] [address] Care Team Providers Care Cashier Clerk Name Role Phone Molina Herr MD Primary Care Provider [phone] Reason for Visit * Consultation (Elective) - Closed Specialty Diagnoses / Procedures Referred By Flo viveros Referred To Contact Dermatology Diagnoses Skin cancer screening Molina Herr MD [address] [place] [address] Alissa Willoughby MD [facility] [place] [address] Referral ID Status Reason Start Date Expiration Date V isits Requested Visits Authorized [id number] Closed Consult, Test & Treat 10/07/2022 10/07/2023 1 1 Encounter Details Date Type Department Care Team (Latest Contact Info) Description 04/01/2023 9:00 AM EST Office Visit Dermatology at [facility] [address] [place] [address] Razia Randhawa MD [facility] DR ADDEI [facility] [place] [phone] Sebaceous hyperplasia; AK (actinic keratosis); Irving angioma; Lentigines; SK (seborrheic keratosis); Post-inflammatory hyperpigmentation Social History Tobacco Use Types Packs/Day Years [...] as of this encounter Progress Notes * Razia Randhawa MD - 04/01/2023 9:00 AM EST Images from the original note were not included. DEPARTMENT OF DERMATOLOGY Medical Dermatology Clinic Provider: Razia Randhawa MD Patient's preferred name Maldonado Preferred contact method for results [x]Cell phone [x]myD-H []Letter Detailed phone message OK? Yes Are there any other people with whom we may discuss your care? No Past Medical History Date, location, treatment Melanoma N Dysplastic nevi N SCC N BCC N AKs N UV Exposure & Protection Sun Protection: Wears a hat in the summer and SPF on the face and arms Other relevant past medical history None Family History Details Melanoma N NMSC N Other relevant family history None Social History Occupation: Retired Hobbies: Photography Other: Single PRE-PROCEDURE SCREENING Details Allergy to lidocaine, epinephrine, Dermabond, chlorhexidine, or adhesives N Bleeding disorder or blood thinners N Pacemaker, defibrillator, deep brain stimulator, cochlear implant N History of Present Illness: Perfecto Polk is a 82 y.o. Patient is new and self-referred to the clinic for a full skin exam with the following concerns: - Lesions on the scalp that are scabby but asymptomatic. PCP suggested FSE. Medications: Reviewed in eD-H Allergies: Reviewed in eD-H Skin Examination: Full skin examination: Patient asked to undress to their comfort level. Verbalized that the provider's preference is that patient remove all clothing and that the provider will not examine areas patient elects to keep covered. Examination of the scalp, hair, head, face, ears, neck, chest, axillae, abdomen, back, buttocks, genitalia, and upper and lower extremities was normal with the exception ofthe findings below. Assessment/Plan #. Post Inflammatory Hyperpigmentation - Patient reports history of Tinea in the groin area. Previously treated with ketoconazole cream - Will message through the portal for refills if desired #. Actinic Keratosis - Ill-defined gritty papules on the scalp. - Explained premalignant potential of these lesions. - Discussed treatment options (LN2, 5-FU, PDT) and their respective risks and benefits. - Patient declined treatment today and prefers to watch and wait. Would prefer to discuss with PCP - Advised patient that a surgical procedure would likely be needed if these were to progress to skin cancer. #. Sebaceous Hyperplasia - Scattered yellowish papules with central umbilication on the face. - Patient reassured of benign nature. - No treatment necessary. #. Lentigines - Scattered light-brown, evenly pigmented, well-demarcated macules on sun-exposed areas of the trunk and extremities. - No worrisome pigmented lesions. Discussed benign nature of lesions and provided reassurance. Willcontinue to monitor. #. Irving Angiomas - Multiple bright red, well-demarcated papules on the trunk and extremities. - Discussed benign nature of lesions and provided reassurance. No treatment necessary at this time. #. Seborrheic Keratoses - Stuck on, waxy papules on the trunk and extremities. - Discussed benign nature of lesions and provided reassurance. No treatment necessary at this time. Other: Sun protection discussed (protective clothing and SPF30+ broad-spectrum sunscreen) Discussed ABC's of melanoma RTC: PRN - can follow up with PCP for annual exams []Note routed to service secretary []Recall placed in scheduling system []Appointment scheduled at checkout Scribe attestation: Latonya Patel CMA has performed the documentation for this encounter inthe presence of and acting as a scribe for Razia Randhawa MD. I performed the above scribed service and agree with the accuracy of the documentation in this encounter. Reviewed and signed by: Razia Randhawa MD Dermatology [facility] Patient seen and evaluated with staff radiation oncology nurse: Soraida Shahid MD Dermatology [facility] * Soraida Shahid MD - 04/01/2023 9:00 AM EST I was the supervising physician working with the Dermatology resident, Razia Randhawa MD, in the care of this Dermatology patient in person. For the purposes of billing, the resident provided the care. I have reviewed the encounter note details and level of service. Soraida Shahid MD Staff Doctor Of Osteopathy Department of Dermatology [facility] documented in this encounter Plan of Treatment Upcoming Encounters Date Type Department Care Team (Late st Contact Info) Description 10/27/2023 11:15 AM EDT Office Visit Palliative Medicine at [place] [address] Elly Alston MD [facility] DR HOSPICE [place] [address] 10/27/2023 1:00 PM EDT Office Visit Speech Therapy at [place] [phone] Debra Franco, FUNERAL HOME MANAGER 11/03/2023 2:00 PM EDT Office Visit Speech Therapy at [place] [phone] Debra Franco, FUNERAL HOME MANAGER 11/08/2023 2:30 PM EDT Appointment MRI at [place] [phone] Navjot Grider MD [facility] DR [place] [address] 11/09/2023 1:45 PM EDT Office Visit Hematology and Oncology at [place] [phone] Isabell Jacob MD [facility] [place] [address] 11/11/2023 10:30 AM EDT Office Visit Radiation Oncology at [place] [phone] Nicki Sharpe MD [facility] [place] [address] 11/15/2023 10:00 AM EDT Office Visit Speech Therapy at [place] [phone] Debra Franco, FUNERAL HOME MANAGER 11/16/2023 9:00 AM EDT Office Visit Hematology [place] [address] Bisi Nam 11/22/2023 10:00 AM EDT Office Visit Speech Therapy at [place] [phone] Debra Franco, FUNERAL HOME MANAGER 11/30/2023 9:00 AM EDT Office Visit Hematology [place] [address] Bisi Nam 12/14/2023 9:00 AM EDT Office Visit [place]ology [place] [address] Bisi Nam 12/28/2023 9:00 AM EDT Office Visit [place]ology [place] [address] Bisi Nam Scheduled Referrals Name Type Priority Associated Diagnoses Order Schedule Referral to Dermatology Outpatient Referral Routine Skin cancer screening Ordered: 10/07/2022 documented as of this encounter Visit Diagnoses Diagnosis Sebaceous hyperplasia Other specified disease of sebaceous glands AK (actinic keratosis) Actinic keratosis Irving angioma Nevus, non-neoplastic Lentigines Other dyschromia SK (seborrheic keratosis) Other seborrheic keratosis Post-inflammatory hyperpigmentation Dyschromia, unspecified documented in this encounter Care Teams Cashier Clerk Relationship Specialty Start Date End Date Molina Herr MD [facility] [address] [place] [address] PCP - General 01/27/10 documented as of this encounter
--- OUTSIDE RECORDS SUMMARY | 2023-10-17 15:10 | XMS_ITS | Encounter Summary ---
Author Organization Formerly [facility], Later [facility] [place] [place] [address] Care Team Providers Care Customer Account Specialist Name Role Phone Molina Herr MD Primary Care Provider [phone] Reason for Visit * Reason Comments Follow-up L ACHILLES TENDON RU PTURE DOI AUGUST 2022 Encounter Details Date Type Department Care Team (Late st Contact Info) Description 12/28/2022 3:30 PM EDT Office [place] [phone] Morris Heck, [facility] [place] [address] Complete rupture of Achilles tendon, left, subsequent [...] - - Weight 83.9 kg (185 lb) 12/28/2022 3:27 PM EDT Height 175.3 cm (5' 9) 12/28/2022 3:27 PM EDT Body Mass Index 27.32 12/28/2022 3:27 PM EDT documented in this encounter Progress Notes * Morris Heck PA - 12/28/2022 3:30 PM EDT PATIENT NAME: Perfecto Polk AGE: 82 y.o. MR#: [id number] DATE OF VISIT: 12/28/2022 STAFF: Morris Heck PA-C FOLLOW UP FOR: Achilles tendon rupture no operative treatment DOI October 01 2022 HISTORY OF PRESENT ILLNESS: Mr. Polk is a 82 y.o. male who comes into clinic today for follow up of The above injury. He is doing much better with regard to his gait mechanics. He has been working closely with his physical therapist to strengthen his left side and focus on retraining it to plantarflex with good strength when he walks. He has returned to the activities that he enjoys such as biking and volunteering without any complications. Medications and Allergies were reviewed in eD-H [...] BX performed by Dominick Earl MD at [facility] ENDOSCOPY PRO COLONOSCOPY, REMV LESN, SNARE N/A 01/12/2018 COLONOSCOPY, POLYPECTOMY, REMOVAL LESION BY SNARE (WRVU 4.67) performed by Guerda Coombs MD at [facility] ENDOSCOPY PRO LAP, APPENDECTOMY N/A 03/09/2017 LAPAROSCOPIC APPENDECTOMY (WRVU 9.45) performed by Saurav Chen MD at [facility] MAIN OR PRO UPPER GI ENDOSCOPY, DIAGNOSTIC N/A 06/11/2021 EGD, UPPER GI ENDOSCOPY performed by Guerda Coombs MD at [facility] ENDOSCOPY FAMILY HX: Family History Problem Relation Age of Onset Cancer Brother SOCIAL HX: Social History Occupational History Not on file Tobacco Use Smoking status: Never Smokeless tobacco: Never Vaping Use Vaping Use: Never used Substance and Sexual Activity Alcohol use: Yes Drug use: No Sexual activity: Not on file 12/26/2022 4:03 PM General Health, Prior Treatments, PreExisting Condition, Health Habits, About You PROMIS-10 General Health Excellent PROMIS-10 Quality of Life Excellent PROMIS-10 Physical Health Excellent PROMIS-10 Mental Health Excellent PROMIS-10 Social Activity Excellent PROMIS-10 Everyday Activities Mostly PROMIS-10 Pain 3 PROMIS-10 Fatigue None PROMIS-10 Social Roles Excellent PROMIS-10 Anxious or Depressed Never PROMIS PHYSICAL SCORE (range 16-68) 57.7 PROMIS MENTAL SCORE (range 21-68) 67.6 Treatments Tried Regular exercise Physical therapy Electrical stimulation (TENS/Transcutaneous Electrical Nerve [...] pulse Lungs: no extra work of breathing Musculoskeletal: Physical exam of the left foot and ankle reveals that the patient walks slower to accommodate for the weakness in his left ankle. He takes time to focus on heel-to-toe pushoff when walking in a no longer appreciate a significant difference in either side when he is stepping. He plantarflex his withgood strength and I do not palpate any diastases between the 2 ends of the Achilles. The patient fires his peroneal tendons with good strength against resistance and has a negative anterior drawer. When he is walking it is also apparent that he curls his hallux to help assist with pushoff which sheexplains him and his physical therapist are working to prevent. DIAGNOSTIC STUDIES: n/a ASSESSMENT: Status post left Achilles tendon rupture. Nonop treatment. PLAN: At this point time I am okay with the patient continuing to progress his activities as tolerated. He may continue to volunteer and perform biking as his symptoms tolerate. I would like him to continue his physical therapy to help accommodate for the weakness on his left side and continue to build strength on the side. We do not need a formal follow-up however I would like him to return if his symptoms change or if he feels he is not progressing. I explained that it takes 18 months for him to befully recovered from one of the stairs and even longer given his age and level of activity. He understands to contact us if he develops any new symptoms and is appreciative of his care thus far. The patient expressed agreement with and understanding of this plan of care. The patient understands to contact us if they have any other questions or concerns. The above documentation was completed using [employer] voice recognition software. Morris Heck PA-C, [facility] Department of Orthopaedics [facility] Pager [phone] documented in this encounter Plan of Treatment Upcoming Encounters Date Type Department Care Team (Late st Contact Info) Description 10/27/2023 11:15 AM EDT Office Visit Palliative Medicine at [place] [phone] Elly Alston MD [facility] DR HOSPICE AND [place] [address] 10/27/2023 1:00 PM EDT Office Visit Speech Therapy at [place] [phone] Debra Franco, TRANSPORTATION MAINTENANCE SPECIALIST 11/03/2023 2:00 PM EDT Office [place] [phone] Debra Franco, TRANSPORTATION MAINTENANCE SPECIALIST 11/08/2023 2:30 PM EDT Appointment MRI at [place] [phone] Navjot Grider MD [facility] DR HEMATOLOGY [place] [address] 11/09/2023 1:45 PM EDT Office Visit Hematology [place] [address] Isabell Jacob MD [facility] [place] [place] [address] 11/11/2023 10:30 AM EDT Office Visit Radiation Oncology at [place] [address] Nicki Sharpe MD [facility] [place] [address] 11/15/2023 10:00 AM EDT Office Visit Speech Therapy at [place] [phone] Debra Franco, TRANSPORTATION MAINTENANCE SPECIALIST 11/16/2023 9:00 AM EDT Office Visit Hematology and Oncology at [place] [phone] Bisi Nam 11/22/2023 10:00 AM EDT Office Visit [place] [address] Debra Franco, TRANSPORTATION MAINTENANCE SPECIALIST 11/30/2023 9:00 AM EDT Office Visit Hematology [place] [address] Bisi Nam 12/14/2023 9:00 AM EDT Office Visit Hematology [place] [address] Bisi Nam 12/28/2023 9:00 AM EDT Office Visit Hematology [place] [address] Bisi Nam documented as of this encounter Visit Diagnoses Diagnosis Complete rupture of Achilles tendon, left, subsequent encounter documented in this encounter Care Teams Customer Account Specialist Relationship Specialty Start Date End Date Molina Herr MD [address] [place] [address] PCP - General 01/27/10 documented as of this encounter
--- OUTSIDE RECORDS SUMMARY | 2023-10-17 15:10 | XMS_ITS | Encounter Summary ---
Author Organization [facility] Address [facility] [place] [address] Care Team Providers Care Acoustical Material Worker Name Role Phone Molina Herr MD Primary Care Provider [phone] Encounter Details Date Type Department Care Team (Latest Contact Info) Description 11/12/2022 Travel Social History Tobacco Use Types Packs/Day [...] AM EDT Office Visit [place] [address] Elly Alston MD [facility] DR HOSPICE AND [place] [address] 10/27/2023 1:00 PM EDT Office [place] [address] Debra Franco, STOCK WORKER 11/03/2023 2:00 PM EDT Office Visit Speech Therapy at [place] [phone] Debra Franco, STOCK WORKER 11/08/2023 2:30 PM EDT Appointment MRI at [address] Navjot Grider MD [facility] [address] [place] [address] 11/09/2023 1:45 PM EDT Office Visit Hematology and Oncology at [address] Isabell Jacob MD [facility] [place] [address] 11/11/2023 10:30 AM EDT Office Visit Radiation Oncology at [address] Nicki Sharpe MD [facility] [place] [address] 11/15/2023 10:00 AM EDT Office Visit Speech Therapy at [place] [phone] Debra Franco, STOCK WORKER 11/16/2023 9:00 AM EDT Office Visit Hematology [place] [address] Bisi Nam 11/22/2023 10:00 AM EDT Office [place] [address] Debra Franco, ROLANDO 11/30/2023 9:00 AM EDT Office Visit Hematology [place] [address] Bisi Nam 12/14/2023 9:00 AM EDT Office Visit Hematology [place] [address] Bisi Nam 12/28/2023 9:00 AM EDT Office Visit Hematology [place] [address] Bisi Nam documented as of this encounter Visit Diagnoses Not on filedocumented in this encounter Care Teams Acoustical Material Worker Relationship Specialty Start Date End Date Molina Herr MD [address] [place] [address] PCP - General 01/27/10 documented as of this encounter
--- OUTSIDE RECORDS SUMMARY | 2023-10-17 15:10 | XMS_ITS | Encounter Summary ---
Author Organization [facility] Address [facility] [place] [address] Care Team Providers Care Senior Database Engineer Name Role Phone Molina Herr MD Primary Care Provider Encounter Details Date Type Department Care Team (Latest Contact Info) Description 12/21/2022 Travel Social History Tobacco Use Types Packs/Day [...] AM EDT Office [place] [address] Elly Alston MD [facility] DR HOSPICE [place] [address] 10/27/2023 1:00 PM EDT Office [place] [phone] Debra Franco, BANKING ATTORNEY 11/03/2023 2:00 PM EDT Office Visit Speech Therapy at [place] [phone] Debra Franco, BANKING ATTORNEY 11/08/2023 2:30 PM EDT Appointment MRI at [address] Navjot Grider MD [facility] DR [place] [address] 11/09/2023 1:45 PM EDT Office Visit Hematology and Oncology at [address] Isabell Jacob MD [facility] [place] [address] 11/11/2023 10:30 AM EDT Office Visit Radiation Oncology at [address] Nicki Sharpe MD [facility] [place] [address] 11/15/2023 10:00 AM EDT Office Visit Speech Therapy at [place] [phone] Debra Franco, BANKING ATTORNEY 11/16/2023 9:00 AM EDT Office Visit Hematology [place] [address] Bisi Nam 11/22/2023 10:00 AM EDT Office [place] [address] Debra Franco, ROLANDO 11/30/2023 9:00 AM EDT Office Visit Hematology [place] [address] Bisi Nam 12/14/2023 9:00 AM EDT Office Visit [place]ematology [place] [address] Bisi Nam 12/28/2023 9:00 AM EDT Office Visit [place]ematology [place] [address] Bisi Nam documented as of this encounter Visit Diagnoses Not on filedocumented in this encounter Care Teams Senior Database Engineer Relationship Specialty Start Date End Date Molina Herr MD [address] [place] [address] PCP - General 01/27/10 documented as of this encounter
--- OUTSIDE RECORDS SUMMARY | 2023-10-17 15:10 | XMS_ITS | Encounter Summary ---
[place] [address] Care Team Providers Care Placement Secretary Name Role Phone Molina Herr MD Primary Care Provider [phone] Encounter Details Date Type Department Care Team (Late st Contact Info) Description 04/29/2023 Orders [place] [address] Blair Bhat, RMA Pain in both knees, unspecified chronicity Social History Tobacco Use Types Packs/Day Years [...] AM EDT Office [place] [phone] Elly Alston MD [facility] DR HOSPICE AND [place] [address] 10/27/2023 1:00 PM EDT Office Visit Speech Therapy at [place] [phone] Debra Franco, RADIOTELEGRAPHER 11/03/2023 2:00 PM EDT Office Visit Speech Therapy at [place] [phone] Debra Franco, RADIOTELEGRAPHER 11/08/2023 2:30 PM EDT Appointment MRI at [address]1000 Navjot Grider MD [facility] DR [place] [address] 11/09/2023 1:45 PM EDT Office Visit Hematology and Oncology at [place] [address] Isabell Jacob MD [facility] [place] [address] 11/11/2023 10:30 AM EDT Office Visit Radiation Oncology at [place] [address] Nicki Sharpe MD [facility] [place] [address] 11/15/2023 10:00 AM EDT Office Visit Speech Therapy at [place] [phone] Debra Franco, RADIOTELEGRAPHER 11/16/2023 9:00 AM EDT Office Visit Hematology and Oncology at [place] [phone] Bisi Nam 11/22/2023 10:00 AM EDT Office Visit Speech Therapy at [place] [phone] Debra Franco, RADIOTELEGRAPHER 11/30/2023 9:00 AM EDT Office Visit Hematology [place] [address] Bisi Nam 12/14/2023 9:00 AM EDT Office Visit Hematology [place] [address] Bisi Nam 12/28/2023 9:00 AM EDT Office Visit Hematology [place] [address] Bisi Nam documented as of this encounter Results * XR Knee Standing Alignment AP Lat [place] Bilat (05/11/2023 7:42 AM EST) Anatomical Region [...] who have questions please contact the health direct care provider that requested your imaging first. ? Electronically signed by: Nathalie Jarquin MD, [facility] [place] ([phone]), at 05/11/2023 2:51 PM Narrative 05/11/2023 2:51 [...] patients who have questions please contactthe health direct care provider that requested your imaging first. Electronically signed by: Nathalie Jarquin MD, [facility]([phone]), at 05/11/2023 2:51 PM Ernie Fuchs MD IMG DX ORDERABLES documented in this encounter Visit Diagnoses Diagnosis Pain in both knees, unspecified chronicity Pain in both knees, unspecified chronicity documented in this encounter Care Teams Placement Secretary Relationship Specialty Start Date End Date Molina Herr MD [facility] [address] [place] [address] PCP - General 01/27/10 documented as of this encounter
--- OUTSIDE RECORDS SUMMARY | 2023-10-17 15:10 | XMS_ITS | Encounter Summary ---
[place] [address] Care Team Providers Care Salesperson Automobiles Name Role Phone Molina Herr MD Primary Care Provider [phone] Reason for Referral * Surgical (Routine) - Closed Specialty Diagnoses / Procedures Referred By Contac t Referred To Contact Gastroenterology Diagnoses Sessile colonic polyp Molina Herr MD [address] [place] [address] [facility] [place] [address] Referral ID Status Reason Start Date Expiration Date V isits Requested Visits Authorized [id number] Closed Test Only PCP Updated and/or Approved 12/31/2022 12/31/2023 1 1 Encounter Details Date Type Department Care Team (Latest Contact Info) Description 12/31/2022 Transcribe Orders eD Incoming Referrals [phone] Molina Herr MD [address] [place] [address] Sessile colonic polyp Social History Tobacco Use Types Packs/Day Years [...] AM EDT Office Visit Palliative Medicine at [place] [address] Elly Alston MD [facility] HOSPICE AND [place] [address] 10/27/2023 1:00 PM EDT Office Visit Speech Therapy at [place] [address] Debra Franco, ARC AND GAS WELDER 11/03/2023 2:00 PM EDT Office Visit Speech Therapy at [place] [address] Debra Franco, ARC AND GAS WELDER 11/08/2023 2:30 PM EDT Appointment MRI at [place] [address] Navjot Grider MD [facility] DR HEMATOLOGY [place] [address] 11/09/2023 1:45 PM EDT Office Visit Hematology and Oncology at [place] [address] Isabell Jacob MD [facility] [place] [address] 11/11/2023 10:30 AM EDT Office Visit Radiation Oncology at [place] [address] Nicki Sharpe MD [facility] [place] [address] 11/15/2023 10:00 AM EDT Office [place] [address] Debra Franco, ARC AND GAS WELDER 11/16/2023 9:00 AM EDT Office Visit Hematology [place] [address] Bisi Nam 11/22/2023 10:00 AM EDT Office [place] [address] Debra Franco ARC AND GAS WELDER 11/30/2023 9:00 AM EDT Office Visit Hematology [place] [address] Bisi Nam 12/14/2023 9:00 AM EDT Office Visit [place]ematology [place] [address] Bisi Nam 12/28/2023 9:00 AM EDT Office Visit [place]ematology [place] [address] Bisi Nam Scheduled Referrals Name Type Priority Associated Diagnoses Order Schedule REFERRAL TO COLONOSCOPY PROCEDURE Outpatient Referral Routine Sessile colonic polyp Ordered: 12/31/2022 documented as of this encounter Visit Diagnoses Diagnosis Sessile colonic polyp Benign neoplasm of colon documented in this encounter Care Teams Salesperson Automobiles Relationship Specialty Start Date End Date Molina Herr MD [facility] [address] [place] [address] PCP - General 01/27/10 documented as of this encounter
--- OUTSIDE RECORDS SUMMARY | 2023-10-17 15:10 | XMS_ITS | Encounter Summary ---
Author Organization [facility] Address [facility] [place] [address] Care Team Providers Care Automobile Service Station Mechanic Name Role Phone Molina Herr MD Primary Care Provider [phone] Encounter Details Date Type Department Care Team (Latest Contact Info) Description 11/02/2022 Travel Social History Tobacco Use Types Packs/Day [...] AM EDT Office [place] [address] Elly Alston MD [facility] DR HOSPICE [place] [address] 10/27/2023 1:00 PM EDT Office [place] [address] Debra Franco, PUG MACHINE OPERATOR 11/03/2023 2:00 PM EDT Office Visit Speech Therapy at [place] [phone] Debra Franco, PUG MACHINE OPERATOR 11/08/2023 2:30 PM EDT Appointment MRI at [address] Navjot Grider MD [facility] DR [place] [address] 11/09/2023 1:45 PM EDT Office Visit Hematology and Oncology at [address]1000 Isabell Jacob MD [facility] [place] [address] 11/11/2023 10:30 AM EDT Office Visit Radiation Oncology at [address] Nicki Sharpe MD [facility] [place] [address] 11/15/2023 10:00 AM EDT Office Visit Speech Therapy at [place] [phone] Debra Franco, PUG MACHINE OPERATOR 11/16/2023 9:00 AM EDT Office Visit Hematology [place] [address] Bisi Nam 11/22/2023 10:00 AM EDT Office [place] [address] Debra Franco, ROLANDO 11/30/2023 9:00 AM EDT Office Visit Hematology [place] [address] Bisi Nam 12/14/2023 9:00 AM EDT Office Visit Hematology [place] [address] Bisi Nam 12/28/2023 9:00 AM EDT Office Visit Hematology [place] [address] Bisi Nam documented as of this encounter Visit Diagnoses Not on filedocumented in this encounter Care Teams Automobile Service Station Mechanic Relationship Specialty Start Date End Date Molina Herr MD [facility] [address] [place] [address] PCP - General 01/27/10 documented as of this encounter
--- OUTSIDE RECORDS SUMMARY | 2023-10-17 15:10 | XMS_ITS | Encounter Summary ---
Author Organization [facility] [place] [address] Care Team Providers Care Sand Operator Name Role Phone Molina Herr MD Primary Care Provider Reason for Visit * Consultation (Routine) - Closed Specialty Diagnoses / Procedures Referred By Contac t Referred To Contact Vascular Surgery Diagnoses Bruit ROUTINE/B CAR DUP - BRUIT/JARRETT Molina Herr MD [address] [place] [address] [facility] [address] [place] [address] Referral ID Status Reason Start Date Expiration Date V isits Requested Visits Authorized [id number] Closed Consult, Test & Treat 10/01/2022 10/01/2023 1 1 Encounter Details Date Type Department Care Team (Late st Contact Info) Description 11/19/2022 9:30 AM EDT Office Visit [place] [address] Lili Gil APRN [facility] [place] [address] Carotid stenosis, asymptomatic, left Social History Tobacco Use Types Packs/Day Years [...] Sign Reading Time Taken Comments Blood Pressure 141/69 11/19/2022 8:58 AM EDT Pulse 63 11/19/2022 8:58 AM EDT Temperature - - Respiratory Rate - - Oxygen Saturation - - Inhaled Oxygen Concentration - - Weight 81.6 kg (180 lb) 11/19/2022 8:58 AM EDT Height 175.3 cm (5' 9) 11/19/2022 8:58 AM EDT Body Mass Index 26.58 11/19/2022 8:58 AM EDT documented in this encounter Progress Notes * Lili Gil, NETWORK MANAGEMENT SPECIALIST - 11/19/2022 9:30 AM EDT This is a new patient to the practice who is being evaluated for carotid bruit and was referred by Molina Herr MD. HPI: 82 y.o. male with PMH: OA who presents for carotid stenosis. Pt denies h/o CVA/TIA and denies recent sx including monocular vision loss, difficulty speaking or unilateral extremity weakness. Pt denies CP, SOB, denies BLE claudication, rest pain, tissue loss. Pt has a recent L achilles rupture for which he is in a boot, endorses swelling since injury that is improving, denies BLE edema prior.He denies h/o WA, AIDAN, COPD. He takes daily ASA and Statin. He is a distant, remote smoker. Atherosclerotic RF: DM (n) HTN (n) CAD (n) CHF (n) HLD (n) CVA (n) Tobacco (n) PMHx: Past Medical History: Diagnosis Date Lumbar degenerative disc disease 08/21/2010 PSxHx: Past Surgical History: Procedure Laterality Date PRO COLONOSCOPY, BIOPSY 01/10/2013 COLONOSCOPY FLEXIBLE, WITH BX performed by Dominick Earl MD at [facility] ENDOSCOPY PRO COLONOSCOPY, REMV LESN, SNARE N/A 01/12/2018 COLONOSCOPY, POLYPECTOMY, REMOVAL LESION BY SNARE (WRVU 4.67) performed by Guerda Coombs MD at [facility] ENDOSCOPY PRO LAP, APPENDECTOMY N/A 03/09/2017 LAPAROSCOPIC APPENDECTOMY (WRVU 9.45) performed by Saurav Chen MD at [facility] MAIN OR PRO UPPER GI ENDOSCOPY, DIAGNOSTIC N/A 06/11/2021 EGD, UPPER GI ENDOSCOPY performed by Guerda Coombs MD at [facility] ENDOSCOPY Family Hx: Family History Problem Relation Age of Onset Cancer Brother Social Hx: Social History Tobacco Use Smoking status: Never Smokeless tobacco: Never Substance Use Topics Alcohol use: Yes Medications: Medications 11/19/22 0859 Medication Sig Taking? celecoxib (CeleBREX) 200 mg capsule Take 400 mg by mouth daily. Yes ibuprofen (ADVIL;MOTRIN) 400 mg Tablet Take 400 mg by mouth every 6 hours as needed for Pain. Yes acetaminophen (TYLENOL) 325 mg Tablet Take 2 tablets by mouth every 6 hours as needed for Pain. Yes omeprazole (PRILOSEC) 20 mg Capsule, Delayed Release(E.C.) Take 20 mg by mouth daily. Yes Cholecalciferol, Vitamin D3, 1,000 unit Capsule Take 1,000 Units by mouth daily. Yes fsnllkkhkkpxa-QC-uyds (SOURCE CF) 200-10 mcg-mg Chew Take 1 tablet by mouth daily. Yes aspirin 81 mg EC tablet Take 81 mg by mouth daily. Yes levothyroxine (SYNTHROID) 25 mcg tablet 25MCG = 1 Tablet(s), PO, Once daily Yes atorvastatin (LIPITOR) 10 mg tablet 10mg, PO, Once daily Yes Allergies: Allergies Allergen Reactions Penicillins Hives Review of Systems: Constitutional (weight change, fever) - Denies Neuro (dizziness, seizures, numbness, tingling) - Denies Eyes (vision) - Denies Ears, nose, throat (hearing) - Denies Cardiovascular (CP) - Denies Respiratory (SOB) - Denies GI (abd pain, nausea, emesis, blood in stool) - Denies (hematuria, dysuria, frequency) - Denies Muscoloskeletal (extremity pain, weakness) - Denies Skin (ulcers, rashes) - Denies All other ROS negative Physical Exam: Vitals: Vitals: 11/19/22 0858 BP: 141/69 BP Location (NBP): Right arm Patient Position: Sitting BP Cuff Sizes: Adult (25-34 cm) Pulse: 63 Weight: 81.6 kg (180 lb) Height: 175.3 cm (5' 9) General: NAD, appears well Neuro: Alert and oriented, motor sensory grossly intact Lungs: CTA Heart: RRR, 2/6 systolic murmur Abd: Soft, NT, ND, no palpable pulsatile masses Extremity - [place], warm, no ulceration, brisk capillary refill, no edema. Vascular: R L Carotid 2/2 bruit (n) 2/2 bruit (y) Radial 2/2 2/2 DP 2/2 2/2 PT 2/2 2/2 Labs/Studies: 11/19/2022 Carotid Duplex Findings: ICA Proximal, Right PSV (cm/s): 62 EDV (cm/s): 19 ICA/CCA: 0.9 Plaque Structure: Echogenic Plaque Surface: Irregular %Stenosis: <15% ICA Distal, Right PSV (cm/s): 61 EDV (cm/s): 24 ICA/CCA: 0.8 CCA Distal, Right PSV (cm/s): 72 EDV (cm/s): 17 %Stenosis: <50% CCA Proximal, Right PSV (cm/s): 85 EDV (cm/s): 14 External Carotid Artery, Right PSV (cm/s): 98 EDV (cm/s): 16 %Stenosis: 16-49% Vertebral, Right PSV (cm/s): 37 EDV (cm/s): 9 Direction of Flow: Antegrade ICA Proximal, Left PSV (cm/s): 41 EDV (cm/s): 16 ICA/CCA: 0.6 Plaque Structure: Echogenic Plaque Surface: Irregular %Stenosis: 16-49% ICA Distal, Left PSV (cm/s): 77 EDV (cm/s): 31 ICA/CCA: 1.2 CCA Distal, Left PSV (cm/s): 66 EDV (cm/s): 22 %Stenosis: <50% CCA Proximal, Left PSV (cm/s): 92 EDV (cm/s): 26 External Carotid Artery, Left PSV (cm/s): 69 EDV (cm/s): 16 %Stenosis: <50% Vertebral, Left PSV (cm/s): 67 EDV (cm/s): 20 Direction of Flow: Antegrade Interpretation: RIGHT: There is irregular plaque in [...] normal antegrade Doppler waveforms and velocities bilaterally. Comparison: No previous study in our vascular lab database for comparison. Assessment/Plan: 82 y.o. male with PMH: OA and L carotid bruit with minimal carotid artery stenosison duplex today: R ICA <15% stenosis and L ICA 16-49%. Patient has no h/o CVA/TIA and remains asymptomatic today. Recommend patient continue daily statin and ASA 81 mg. Recommend tight control of co-morbidities and continued abstinence from smoking. Follow-up in the clinic PRN only. Instructed to call the clinic with any concerns prior to next appointment. Instructed to call 911 for any s/sx of TIA/CVA including unilateral extremity weakness, facial droop, acute change in vision or speech. Lili Gil APRN Department of Vascular Surgery documented in this encounter Plan of Treatment Upcoming Encounters Date Type Department Care Team (Late st Contact Info) Description 10/27/2023 11:15 AM EDT Office Visit [place] [address] Elly Alston MD [facility] HOSPICE AND [place] [address] 10/27/2023 1:00 PM EDT Office [place] [address] Debra Franco, LABORER ORCHARD 11/03/2023 2:00 PM EDT Office [place] [address] Debra Franco, LABORER ORCHARD 11/08/2023 2:30 PM EDT Appointment MRI at [place] [address] Navjot Grider MD [facility] DR HEMATOLOGY [place] [address] 11/09/2023 1:45 PM EDT Office Visit Hematology and Oncology at [place] [address] Isabell Jacob MD [facility] [place] [address] 11/11/2023 10:30 AM EDT Office Visit Radiation Oncology at [place] [address] Nicki Sharpe MD [facility] [place] [address] 11/15/2023 10:00 AM EDT Office [place] [address] Debra Franco, LABORER ORCHARD 11/16/2023 9:00 AM EDT Office Visit Hematology [place] [address] Bisi Nam 11/22/2023 10:00 AM EDT Office [place] [address] Debra Franco, LABORER ORCHARD 11/30/2023 9:00 AM EDT Office Visit Hematology [place] [address] Bisi Nam 12/14/2023 9:00 AM EDT Office Visit Hematology [place] [address] Bisi Nam 12/28/2023 9:00 AM EDT Office Visit Hematology [place] [address] Bisi Nam Scheduled Referrals Name Type Priority Associated Diagnoses Orde r Schedule Referral to Vascular Surgery Outpatient Referral Urgent Bruit Ordered: 10/01/2022 documented as of this encounter Visit Diagnoses Diagnosis Carotid stenosis, asymptomatic, left documented in this encounter Care Teams Sand Operator Relationship Specialty Start Date End Date Molina Herr MD [address] [place] [address] PCP - General 01/27/10 documented as of this encounter
--- OUTSIDE RECORDS SUMMARY | 2023-10-17 15:10 | XMS_ITS | Encounter Summary ---
Author Organization [facility] [place] [address] Care Team Providers Care Field Marketing Representative Name Role Phone Molina Herr MD Primary Care Provider [phone] Encounter Details Date Type Department Care Team (Late st Contact Info) Description 01/20/2023 3:30 PM EST - 01/20/2023 4:30 PM EST [place] [phone] Guerda Coombs MD [facility] [place] [address] COLONOSCOPY, POLYPECTOMY, REMOVAL LESION BY SNARE (WRVU 4.57) Social History Tobacco Use Types Packs/Day Years [...] Sign Reading Time Taken Comments Blood Pressure 134/73 01/20/2023 4:20 PM EST Pulse 65 01/20/2023 3:55 PM EST Temperature - - Respiratory Rate 18 01/20/2023 4:20 PM EST Oxygen Saturation 95% 01/20/2023 4:20 PM EST Inhaled Oxygen Concentration - - Weight 83.9 kg (185 lb) 01/20/2023 3:01 PM EST Height - - Body Mass Index 27.32 12/28/2022 3:27 PM EDT documented in this encounter Medications at Time of Discharge Medication Sig Dispensed Refills Start Date End Date omeprazole (PRILOSEC) 20 mg Capsule, Delayed Release(E.C.) Take 20 mg by mouth daily. 4 03/08/2014 [id number]-HL-[id number] (SOURCE CF) 200-10 mcg-mg Chew Take 1 [...] AM EDT Office [place] [address] Elly Alston MD [facility] HOSPICE [place] [address] 10/27/2023 1:00 PM EDT Office [place] [address] Debra Franco, ARCGIS DEVELOPER 11/03/2023 2:00 PM EDT Office Visit Speech Therapy at [place] [phone] Debra Franco, ARCGIS DEVELOPER 11/08/2023 2:30 PM EDT Appointment MRI at [address] Navjot Grider MD [facility] [address] [place] [address] 11/09/2023 1:45 PM EDT Office Visit Hematology and Oncology at [address] Isabell Jacob MD [facility] [place] [address] 11/11/2023 10:30 AM EDT Office Visit Radiation Oncology at [address] Nicki Sharpe MD [facility] [place] [address] 11/15/2023 10:00 AM EDT Office [place] [address] Debra Franco, ARCGIS DEVELOPER 11/16/2023 9:00 AM EDT Office Visit Hematology [place] [address] Bisi Nam 11/22/2023 10:00 AM EDT Office [place] [address] Debra Franco, ROLANDO 11/30/2023 9:00 AM EDT Office Visit Hematology [place] [address] Bisi Nam 12/14/2023 9:00 AM EDT Office Visit Hematology [place] [address] Bisi Nam 12/28/2023 9:00 AM EDT Office Visit Hematology [place] [address] Bisi Nam documented as of this encounter Procedures Procedure Name Priority Date/Time Associated Diagnosis Comments SPECIMEN TO PATHOLOGY Routine 01/20/2023 3:54 PM EST SURGICAL PATHOLOGY REPORT Routine 01/20/2023 3:50 PM EST Colonoscopy, Elie Flores ([id number]) 01/20/2023 3:26 PM EST 5 year COLONOSCOPY Routine 01/20/2023 3:03 PM EST documented in this encounter Results * Specimen to Pathology (01/20/2023 3:54 PM EST) AP Specimen 01/20/2023 3:54 PM EST 01/20/2023 3:54 PM EST Narrative [facility] - 01/20/2023 3:54 PM EST Specimen requisition ordered. ??Separate Pathology report to follow Guerda Coombs MD PATHOLOGY/CYTOLOGY O RDERABLES [facility] [place] [address] * Surgical Pathology Report (01/20/2023 3:50 PM EST) Final Diagnosis [id number] ? Location: 4T; EA07; A The signing pathologist has (i) examined the relevant preparation(s) for the specimen(s) and (ii) rendered or confirmed the diagnosis(es). . ?Surgical Pathology DIAGNOSIS A - Descending colon polyp, resection: - ??Tubular adenoma. CR-PX Electronically signed by: ?Wendy SUNG PhD, Dayanna Verified: ??01/26/2023 8:57 ?? Pathologist Performed at: ??-[facility] Dept. of Pathology, [place] [address] Electroencephalographic Technician: Sona Hernandez MD, FCAP, ??CLIA Certificate: [id number] SPECIMEN(S) SUBMITTED A - descending colon polyp, resection (1) CLINICAL INFORMATION 82-year-old male with history of polyps SPECIMEN PROCESSING A - Labeled/Fixativ e: Descending colon polyp, formalin. Quantity/Size: Single, 0.5 cm. Tissue Description: Soft, peraza-pink tissue. Sections/Proces sing: Submitted in toto ??in 1 cassette labeled A1. ??sdy 01/26/2023 8:57 AM EST [facility] GI Biopsy 01/20/2023 3:50 PM EST 01/20/2023 3:50 PM EST Guerda Coombs MD PATHOLOGY/CYTOLOGY O RDERABLES Performing Organization Address City/State/[facility] Co de Phone Number [facility] [place] [phone] [facility] [place] [address] * COLONOSCOPY (01/20/2023 3:03 PM EST) COLONOSCOPY [facility] Endoscopy Procedure Date: 01/20/2023 3:03 PM ? Patient Name: Perfecto Polk ? Date of : 1940 ? Age: 82 ? Order #: [id number] ? Instrument Name: [id number]- [id number] ? Procedure: ? Colonoscopy Indications: ? High [...] Molina Herr MD GENERAL SURGICAL ORD ERABLES [employer]OVATION documented in this encounter Visit Diagnoses Not on filedocumented in this encounter Administered Medications Inactive Administered Medications - up to 3 most recent administrations Medication Order MAR Action Action Date Dose Rate Site fentaNYL (pf) (50 mcg/mL) multi-dose injection PRN, Starting on Debbie 01/20/23 at 1534, Until Debbie 01/20/23 at 1835, Intra-Operative (Intra-Procedure), Routine Given 01/20/2023 3:45 PM EST 25 mcg Given 01/20/2023 3:41 PM EST 25 mcg Given 01/20/2023 3:38 PM EST 25 mcg midazolam (pf) (Versed) (1 mg/mL) multi-dose injection PRN, Starting on Debbie 01/20/23 at 1534, Until Debbie 01/20/23 at 1835, Intra-Operative (Intra-Procedure), Routine Given 01/20/2023 3:45 PM EST 1 mg Given 01/20/2023 3:41 PM EST 1 mg Given 01/20/2023 3:38 PM EST 1 mg documented in this encounter Active and Recently Administered Medications Times are shown in EST. PRN Medication Order 01/18/2023 01/19/2023 01/20/2023 fentaNYL (pf) (50 mcg/mL) multi-dose injection (CANCELED) PRN, Starting on Debbie 01/20/23 at 1534, Until Debbie 01/20/23 at 1835, Intra-Operative (Intra-Procedure), Routine 1534 (Given - Provid er: Caren Alba RN)1538 (Given - Provider: Caren Alba RN)1541 (Given - Provider: Caren Alba RN)1545 (Given - Provider: Caren Alba RN) midazolam (pf) (Versed) (1 mg/mL) multi-dose injection (CANCELED) PRN, Starting on Debbie 01/20/23 at 1534, Until Debbie 01/20/23 at 1835, Intra-Operative (Intra-Procedure), Routine 1534 (Given - Provid er: Caren Alba RN)1538 (Given - Provider: Caren Alba RN)1541 (Given - Provider: Caren Alba, OSCAR)1545 (Given - Provider: Caren Alba RN) documented in this encounter Care Teams Field Marketing Representative Relationship Specialty Start Date End Date Molina Herr MD [address] [place] [address] PCP - General 01/27/10 documented as of this encounter
--- OUTSIDE RECORDS SUMMARY | 2023-10-17 15:10 | XMS_ITS | Encounter Summary ---
Author Organization [facility] Address [facility] [place] [address] Care Team Providers Care Technical Training Manager Name Role Phone Molina Herr MD Primary Care Provider [phone] Encounter Details Date Type Department Care Team (Latest Contact Info) Description 10/20/2022 Travel Social History Tobacco Use Types Packs/Day [...] Office Visit [place] [address] Elly Alston MD [facility] DR HOSPICE AND [place] [address] 10/27/2023 1:00 PM EDT Office [place] [address] Debra Franco, MEDICAL OFFICE SUPERVISOR 11/03/2023 2:00 PM EDT Office Visit Speech Therapy at [place] [phone] Debra Franco, MEDICAL OFFICE SUPERVISOR 11/08/2023 2:30 PM EDT Appointment MRI at [address] Navjot Grider MD [facility] DR HEMATOLOGY [place] [address] 11/09/2023 1:45 PM EDT Office Visit Hematology and Oncology at [address] Isabell Jacob MD [facility] [place] [address] 11/11/2023 10:30 AM EDT Office Visit Radiation Oncology at [address] Nicki Sharpe MD [facility] [place] [address] 11/15/2023 10:00 AM EDT Office [place] [address] Debra Franco, MEDICAL OFFICE SUPERVISOR 11/16/2023 9:00 AM EDT Office Visit Hematology [place] [address] Bisi Nam 11/22/2023 10:00 AM EDT Office [place] [address] Debra Franco, ROLANDO 11/30/2023 9:00 AM EDT Office Visit Hematology [place] [address] Bisi Nam 12/14/2023 9:00 AM EDT Office Visit Hematology [place] [address] Bisi Nam 12/28/2023 9:00 AM EDT Office Visit Hematology [place] [address] Bisi Nam documented as of this encounter Visit Diagnoses Not on filedocumented in this encounter Care Teams Technical Training Manager Relationship Specialty Start Date End Date Molina Herr MD [address] [place] [address] PCP - General 01/27/10 documented as of this encounter
--- OUTSIDE RECORDS SUMMARY | 2023-10-17 15:10 | XMS_ITS | Encounter Summary ---
Author Organization [facility] Address [facility] [place] [address] Care Team Providers Care Code Enforcement Inspector Name Role Phone Molina Herr MD Primary Care Provider [phone] Encounter Details Date Type Department Care Team (Latest Contact Info) Description 03/25/2023 Travel Social History Tobacco Use Types Packs/Day [...] AM EDT Office [place] [address] Elly Alston MD [facility] [address] HOSPICE [place] [address] 10/27/2023 1:00 PM EDT Office [place] [address] Debra Franco, CRAWLER DRAGLINE OPERATOR 11/03/2023 2:00 PM EDT Office Visit Speech Therapy at [place] [phone] Debra Franco, ROLANDO 11/08/2023 2:30 PM EDT Appointment MRI at [address] Navjot Grider MD [facility] [address] HEMATOLOGY [place] [address] 11/09/2023 1:45 PM EDT Office Visit Hematology and Oncology at [address] Isabell Jacob MD [facility] [place] [address] 11/11/2023 10:30 AM EDT Office Visit Radiation Oncology at [place] [phone] Nicki Sharpe MD [facility] [place] [address] 11/15/2023 10:00 AM EDT Office Visit Speech Therapy at [place] [phone] Debra Franco SLP 11/16/2023 9:00 AM EDT Office Visit H[place]ology [place] [address] Bisi Nam 11/22/2023 10:00 AM EDT Office [place] [address] Debra Franco SLP 11/30/2023 9:00 AM EDT Office Visit [place] [address] Bisi Nam 12/14/2023 9:00 AM EDT Office Visit [place]ology [place] [address] Bisi Nam 12/28/2023 9:00 AM EDT Office Visit [place]ology [place] [address] Bisi Nma documented as of this encounter Visit Diagnoses Not on filedocumented in this encounter Care Teams Code Enforcement Inspector Relationship Specialty Start Date End Date Molina Herr MD [address] [place] [address] PCP - General 01/27/10 documented as of this encounter
--- OUTSIDE RECORDS SUMMARY | 2023-10-17 15:10 | XMS_ITS | Encounter Summary ---
Author Organization [facility] Address [facility] [place] [address] Care Team Providers Care Learning Disabilities Specialist Name Role Phone Molina Herr MD Primary Care Provider [phone] Reason for Referral * Consultation (Routine) - Authorized Specialty Diagnoses / Procedures Referred By Contac t Referred To Contact Orthopaedics Diagnoses Pain in both knees, unspecified chronicity Molina Herr MD [address] [place] [address] [facility] [place] [address] Referral ID Status Reason Start Date Expiration Date Visits Requested Visits Authorized [id number] Authorized Consult, Test & Treat PCP Updated and/or Approved 03/08/2023 03/07/2024 6 6 Encounter Details Date Type Department Care Team (Latest Contact Info) Description 03/11/2023 Transcribe Orders eDH Incoming Referrals [phone] Molina Herr MD [address] [place] [address] Pain in both knees, unspecified chronicity Social [...] AM EDT Office Visit Palliative Medicine at [place] [address] [facility] HOSPICE [place] [address] 10/27/2023 1:00 PM EDT Office Visit Speech Therapy at [place] [address] Debra Franco, METAL WINDOW FRAME MAKER 11/03/2023 2:00 PM EDT Office Visit Speech Therapy at [place] [address] Debra Franco, METAL WINDOW FRAME MAKER 11/08/2023 2:30 PM EDT Appointment MRI at [place] [address] [facility] [place] [address] 11/09/2023 1:45 PM EDT Office Visit Hematology and Oncology at [place] [address] [address] [facility] [place] [address] 11/11/2023 10:30 AM EDT Office Visit Radiation Oncology at [place] [address] [facility] [place] [address] 11/15/2023 10:00 AM EDT Office [place] [address] Debra Franco METAL WINDOW FRAME MAKER 11/16/2023 9:00 AM EDT Office Visit Hematology [place] [address] Bisi Nam 11/22/2023 10:00 AM EDT Office [place] [address] Debra Franco METAL WINDOW FRAME MAKER 11/30/2023 9:00 AM EDT Office Visit Hematology [place] [address] Bisi Nam 12/14/2023 9:00 AM EDT Office Visit Hematology [place] [address] Bisi Nam 12/28/2023 9:00 AM EDT Office Visit Hematology [place] [address] Bisi Nam Scheduled Referrals Name Type Priority Associated Diagnoses Orde r Schedule Referral to Orthopaedics Outpatient Referral Routine Pain in both knees, unspecified chronicity Ordered: 03/11/2023 documented as of this encounter Visit Diagnoses Diagnosis Pain in both knees, unspecified chronicity documented in this encounter Care Teams Learning Disabilities Specialist Relationship Specialty Start Date End Date Molina Herr MD [address] [place] [address] PCP - General 01/27/10 documented as of this encounter
--- OUTSIDE RECORDS SUMMARY | 2023-10-17 15:10 | XMS_ITS | Encounter Summary ---
Author Organization [facility] [place] [address] Care Team Providers Care Barrel Ribs Solderer Name Role Phone Molina Herr MD Primary Care Provider [phone] Encounter Details Date Type Department Care Team (Latest Contact Info) Description 12/23/2022 5:16 PM EDT - 12/23/2022 11:59 PM EDT Hospital [place] [address] Discharge Disposition: Home Social History [...] 20 mg by mouth daily. 4 03/08/2014 [id number] (SOURCE CF) 200-10 mcg-mg Chew Take 1 [...] AM EDT Office Visit Palliative Medicine at [place] [address] Elly Alston MD [facility] [address] HOSPICE [place] [address] 10/27/2023 1:00 PM EDT Office Visit Speech Therapy at [place] [address] Debra Franco, DRIVER COURIER 11/03/2023 2:00 PM EDT Office Visit Speech Therapy at [place] [phone] Debar Franco, DRIVER COURIER 11/08/2023 2:30 PM EDT Appointment MRI at [address] Navjot Grider MD [facility] [place] [address] 11/09/2023 1:45 PM EDT Office Visit Hematology and Oncology at [place] [address] Isabell Jacob MD [facility] [place] [address] 11/11/2023 10:30 AM EDT Office Visit [place]iation [place] [address] Nicki Sharpe MD [facility] [place] [address] 11/15/2023 10:00 AM EDT Office Visit [place] [address] Debra Franco DRIVER COURIER 11/16/2023 9:00 AM EDT Office Visit Hematology [place] [address] Bisi Nam 11/22/2023 10:00 AM EDT Office Visit [place] [address] Debra Franco DRIVER COURIER 11/30/2023 9:00 AM EDT Office Visit Hematology [place] [address] Bisi Nam 12/14/2023 9:00 AM EDT Office Visit Hematology [place] [address] Bisi Nam 12/28/2023 9:00 AM EDT Office Visit Hematology [place] [address] Bisi Nam documented as of this encounter Procedures Procedure Name Priority Date/Time Associated Diagnosis Comments HEMOGRAM Routine 12/23/2022 8:14 AM EDT DIFFERENTIAL, AUTOMATED Routine 12/23/2022 8:14 AM EDT GOLD TUBE HOLD Routine 12/23/2022 8:14 AM EDT TSH Routine 12/23/2022 8:14 AM EDT T4, FREE Routine 12/23/2022 8:14 AM EDT PSA (ULTRASENSITIVE) Routine 12/23/2022 8:14 AM EDT HEMOGLOBIN A1C Routine 12/23/2022 8:14 AM EDT LIPID PANEL (REFLEX DIRECT LDL) Routine 12/23/2022 8:14 AM EDT COMPREHENSIVE METABOLIC PANEL Routine 12/23/2022 8:14 AM EDT documented in this encounter Results * Gold Tube HOLD (12/23/2022 8:14 AM EDT) Gold Hold Sample in lab. [facility] Blood No Charge / Unknown 12/23/2022 8:14 AM EDT 12/23/2022 7:11 PM EDT Molina Herr MD CHEMISTRY ORDERABLES Performing Organization Address City/[facility] Co de Phone Number [facility] [place] [address] * PSA (Ultrasensitive) (12/23/2022 8:14 AM EDT) Prostate Specific Antigen (Ultrasensitive) 1.13 0.00 - 4.00 ng/mL [facility] Comment: PLEASE NOTE: The above reference interval is intended for healthy males with an intact prostate. Values within this reference interval may indicate recurrence in men who have undergone radical prostatectomy. This result was generated using a Elizabet Dilcia immunoassay. ??Results obtained from other methods or manufacturers cannot be used interchangeably with this method. Blood Venous Draw / Unknown 12/23/2022 8:14 AM EDT 12/23/2022 7:09 PM EDT Narrative Resulting Agency Comment Spec In Lab Molina Herr MD CHEMISTRY ORDERABLES Performing Organization Address City/[facility]/ZIP Co de Phone Number [facility] [place] [address] * TSH (12/23/2022 8:14 AM EDT) Thyroid Stimulating Hormone 3.47 0.27 - 4.20 mcIU/mL [facility] Comment: Reference Interval (mcIU/mL): Females: ??First Trimester: 0.23-3.88 ??Second Trimester: 0.22-3.90 ??Third Trimester: 0.44-4.66 Blood Venous Draw / Unknown 12/23/2022 8:14 AM EDT 12/23/2022 7:09 PM EDT Narrative Resulting Agency Comment Spec In Lab Molina Herr MD CHEMISTRY ORDERABLES Performing Organization Address City/[facility] Co de Phone Number [facility] [place] [address] * T4, free (12/23/2022 8:14 AM EDT) Free T4 1.22 0.93 - 1.70 ng/dL [facility] Comment: Reference Interval (ng/dL): Females: ??First Trimester: 0.97-1.68 ??Second Trimester: 0.77-1.51 ??Third Trimester: 0.77-1.49 Blood Venous Draw / Unknown 12/23/2022 8:14 AM EDT 12/23/2022 7:09 PM EDT Narrative Resulting Agency Comment Spec In Lab Molina Herr MD CHEMISTRY ORDERABLES Performing Organization Address City/[facility] Co de Phone Number [facility] [place] [address] * Hemoglobin A1c (12/23/2022 8:14 AM EDT) Hemoglobin A1c 5.6 4.3 - 5.6 % [facility] Comment: Reference Range: 4.3 - 5.6% 5.7 - 6.4% - Increased Risk of Developing Diabetes Mellitus >= 6.5% - Consistent with diagnosis of Diabetes Mellitus In the absence of hyperglycemia (i.e. plasma glucose > 200 mg/dL) or classic symptoms of hyperglycemia a repeat measurement of HbA1c should be performed on a separate sample to confirm the diagnosis. Diagnosis and Classification of Diabetes Mellitus, Diabetes Care 2013; 36: Suppl. 1, G46-53 Estimated Average Glucose See note mg/dL [facility] Comment: Estimated Average Glucose not appropriate for patients over 70 years of age. Note: The eAG calculation has not been proven valid for women, individuals below 18 years old or above 70 years old, or individuals with hemoglobinopathies. Estimated average glucose (eAG) is calculated from the equation described in: Rolly VARGHESE, Isha J, Campbell R, et al. ??Translating the A1C assay into estimated average glucose values. ??Diabetes Care 2008:31(8):2414-5061. Additional resources are available on the ADA website (diabetes.org). Blood Venous Draw / Unknown 12/23/2022 8:14 AM EDT 12/23/2022 7:10 PM EDT Narrative Resulting Agency Comment Spec In Lab Molina Herr MD CHEMISTRY ORDERABLES Performing Organization Address City/[facility] Co de Phone Number [facility] [place] [address] * Differential, Automated (12/23/2022 8:14 AM EDT) Neutrophil % 53.5 % [facility] Neutrophil Absolute 2.45 1.70 - 6.10 x10(3)/[facility] Lymph % 31.0 % [facility] Lymphocytes Abs 1.4 0.9 - 3.2 x10(3)/[facility] Monocyte % 8.7 % [facility] Monocyte Abs 0.4 0.3 - 0.9 x10(3)/[facility] Eos % 5.7 % [facility] Eosinophils Abs 0.3 0.0 - 0.4 x10(3)/[facility] Basophil % 1.1 % [facility] Baso Absolute 0.0 0.0 - 0.1 x10(3)/[facility] Immature Gran % 0.00 % [facility] Comment: Immature granulocytes(IG's)percentage and absolute count will include metamyelocytes, myelocytes, and promyelocytes. Blood smears from CBCs yielding IG's will be scanned manually for concordance. If this scan disagrees with the automated IG or if promyelocytes are noted, a manual differential will be performed. Immature Gran Absolute 0.00 0.00 - 0.04 x10(3)/mcL [facility] Blood Venous Draw / Unknown 12/23/2022 8:14 AM EDT 12/23/2022 7:10 PM EDT Narrative Resulting Agency Comment Spec In Lab Molina Herr MD HEMATOLOGY ORDERABLE S [facility] [place] [address] * (ABNORMAL) Hemogram (12/23/2022 8:14 AM EDT) White Blood Cell 4.6 4.0 - 9.5 x10(3)/mc L [facility] Red Blood Cell 4.45(L) 4.58 - 5.54 x10(6)/mc L [facility] Hemoglobin 12.6(L) 13.7 - 16.5 g/dL [facility] Hematocrit 40.0(L) 40.5 - 48.5 % [facility] Mean Cell Volume 89.9 82.9 - 93.[address] [facility] Mean Cell Hemoglobin 28.3 27.5 - 32.[address] [facility] Mean Cell Hemoglobin Concentration 31.5(L) 32.0 - 35.7 g/dL [facility] Platelet 274 145 - 357 x10(3)/mc L [facility] RDW Standard Deviation 45.7(H) 36.0 - 45.[address] [facility] RDW coefficient of variation 14.0(H) 11.4 - 13.8 % [facility] Mean Platelet Volume 10.2 7.6 - 12.9 fL [facility] NRBC% auto 0.0 % [facility] NRBC Absolute 0.000 0.000 - 0.000 x10(3)/mc L [facility] Blood Venous Draw / Unknown 12/23/2022 8:14 AM EDT 12/23/2022 7:10 PM EDT Narrative Resulting Agency Comment Spec In Lab Molina Herr MD HEMATOLOGY ORDERABLE S [facility] [place] [address] * Lipid Panel (Reflex Direct LDL) (12/23/2022 8:14 AM EDT) Cholesterol, Total 159 mg/dL M [facility] Comment: Lower Risk: <200 mg/dL Average Risk: 200-239 mg/dL Higher Risk: >mo=567 mg/dL Triglyceride 58 mg/dL [facility] Comment: Average Risk/Lower Risk: <150 mg/dL Borderline High Risk: 150-199 mg/dL High Risk: 200-499 mg/dL Very High Risk: >em=647 mg/dL HDL Cholesterol 44 mg/dL [facility] Comment: Males: ?? Higher Risk: <40 mg/dL Females: ?? Higher Risk: <50 mg/dL LDL Cholesterol 103 mg/dL [facility] Comment: Lowest Risk: <100 mg/dL Lower Risk: 100-129 mg/dL Borderline High Risk: 130-159 mg/dL High Risk: 160-189 mg/dL Very High Risk: >rd=896 mg/dL Cholesterol/HDL Ratio 3.[address] [facility] Lipid Interpretation See Note [facility] Comment: Lipid management should be guided by a patient? s ASCVD risk, goals and preferences. ACC/AHA Guidelines recommend high intensity statin if clinical ASCVD or LDL greater than or equal to 190 mg/dL. http://Joognuurl.com/XYV-UWP-Pfpfbpwyl Adults aged 40-75 with LDL 70-189 mg/dL should have their 10 year ASCVD risk estimated with the ACC/AHA ASCVD risk hvac estimator http://tools.acc.org/NKCMD-Wmvp-Xxrygmqdj/ Statin should be discussed if risk greater than or equal to 7.5% in non-diabetics. With diabetes, moderate intensity statin is recommended if risk less than 7.5%, high intensity if risk greater than or equal to 7.5%. Annual lipid monitoring on statins is not necessary. Evaluate secondary causes of Triglycerides greater than 500 mg/dL or LDL greater than 190 mg/dL: See table 6 of ACC/AHA Guideline. Lifestyle modification is a critical component of ASCVD risk reduction. Blood Venous Draw / Unknown 12/23/2022 8:14 AM EDT 12/23/2022 7:09 PM EDT Narrative Resulting Agency Comment Spec In Lab Molina Herr MD CHEMISTRY ORDERABLES [facility] [place] [address] * (ABNORMAL) Comprehensive metabolic panel (non-fasting) (12/23/2022 8:14 AM EDT) Glucose 97 65 - 199 mg/dL [facility] Comment:Diabetes: >=200 mg/d L plus symptoms Blood Urea Nitrogen 27(H) 10 - 20 mg/dL [facility] Creatinine 1.20 0.80 - 1.50 mg/dL [facility] Sodium 141 135 - 145 mmol/L [facility] Potassium 4.2 3.5 - 5.0 mmol/L [facility] Comment: Please note: ??Patients with WBC >100,000 may have falsely elevated Potassium levels. ??For accurate Potassium quantification in these patients send serum separator tube (gold top) for subsequent determinations. ??Contact the Clinical Chemistry Laboratory if there are any questions. Chloride 104 98 - 107 mmol/L [facility] Carbon Dioxide 24 22 - 31 mmol/L [facility] Anion Gap 13 5 - 15 mmol/L [facility] Calcium 8.8 8.5 - 10.5 mg/dL [facility] Protein, Total 7.0 6.1 - 8.0 g/dL [facility] Albumin 3.9 3.2 - 5.2 g/dL [facility] Aspartate Aminotransferase 17 0 - 39 unit/L [facility] Alanine Aminotransferase 15 0 - 55 unit/L [facility] Alkaline Phosphatase 60 40 - 130 unit/L [facility] Bilirubin, Total 0.2 0.2 - 1.3 mg/dL [facility] Est Glomerular Filtration Rate 61 >=60 mL/min/1. 73 m?? [facility] Comment: This patient's estimated [...] to eGFR. Blood Venous Draw / Unknown 12/23/2022 8:14 AM EDT 12/23/2022 7:09 PM EDT Narrative Resulting Agency Comment Spec In Lab Molina Herr MD CHEMISTRY ORDERABLES [facility] [place] [address] documented in this encounter Visit Diagnoses Not on filedocumented in this encounter Care Teams Barrel Ribs Solderer Relationship Specialty Start Date End Date Molina Herr MD [address] [place] [address] PCP - General 01/27/10 documented as of this encounter
--- OUTSIDE RECORDS SUMMARY | 2023-10-17 15:10 | XMS_ITS | Encounter Summary ---
Author Organization [facility] Address [facility] [place] [address] Care Team Providers Care Post Closing Specialist Name Role Phone Molina Herr MD Primary Care Provider [phone] Encounter Details Date Type Department Care Team (Latest Contact Info) Description 10/26/2022 Travel Social History Tobacco Use Types Packs/Day [...] AM EDT Office [place] [phone] Elly Alston MD [facility] HOSPICE [place] [address] 10/27/2023 1:00 PM EDT Office [place] [phone] Debra Franco, ENGINEERING [employer]PLIES SALES 11/03/2023 2:00 PM EDT Office Visit Speech Therapy at [place] [phone] Debra Franco, ENGINEERING [employer]PPLIES SALES 11/08/2023 2:30 PM EDT Appointment MRI at [address] Navjot Grider MD [facility] [address] [place]AT[place] [address] 11/09/2023 1:45 PM EDT Office Visit Hematology and Oncology at [address] Isabell Jacob MD [facility] [place] [address] 11/11/2023 10:30 AM EDT Office Visit Radiation Oncology at [address] Nicki Sharpe MD [facility] [place] [address] 11/15/2023 10:00 AM EDT Office [place] [address] Debra Franco, ENGINEERING [employer] SALES 11/16/2023 9:00 AM EDT Office Visit Hematology [place] [address] Bisi Nam 11/22/2023 10:00 AM EDT Office [place] [address] Debra Franco, ROLANDO 11/30/2023 9:00 AM EDT Office Visit Hematology [place] [address] Bisi Nam 12/14/2023 9:00 AM EDT Office Visit Hematology [place] [address] Bisi Nam 12/28/2023 9:00 AM EDT Office Visit Hematology [place] [address] Bisi Nam documented as of this encounter Visit Diagnoses Not on filedocumented in this encounter Care Teams Post Closing Specialist Relationship Specialty Start Date End Date Molina Herr MD [address] [place] [address] PCP - General 01/27/10 documented as of this encounter
--- OUTSIDE RECORDS SUMMARY | 2023-10-17 15:10 | XMS_ITS | Encounter Summary ---
Author Organization [place] [address] Care Team Providers Care Bottom Cementer Name Role Phone Molina Herr MD Primary Care Provider [phone] Reason for Visit * Reason Comments Follow-up BILAT KNEE PAIN * Consultation (Routine) - Authorized Specialty Diagnoses / Procedures Referred By Flo t Referred To Contact Orthopaedics Diagnoses Pain in both knees, unspecified chronicity Molina Herr MD [address] [place] [address] Ernie Fuchs MD [facility] [place] [address] Referral ID Status Reason Start Date Expiration Date Visits Requested Visits Authorized [id number] Authorized Consult, Test & Treat PCP Updated and/or Approved 03/08/2023 03/07/2024 6 6 Encounter Details Date Type Department Care Team (Latest Contact Info) Description 05/11/2023 8:50 AM EST Office [place] [address] Clinic, Dr Fuchs Team None Primary osteoarthritis of right knee; Right leg [...] - - Weight 83.9 kg (185 lb) 05/11/2023 8:39 AM EST v erbal Height 175.3 cm (5' 9) 05/11/2023 8:39 AM EST v erbal Body Mass Index 27.32 05/11/2023 8:39 AM EST documented in this encounter Progress Notes * Wilda, MURPHY Foss - 05/11/2023 8:50 AM EST Images from the original note were not included. Department of Orthopaedics Division of Adult Joint Reconstructive Surgery CHIEF COMPLAINT: Chief Complaint Patient presents with Follow-up BILAT KNEE PAIN ARTHROPLASTY HISTORY/PREVIOUS KNEE SURGERY: Right knee arthroscopy 1988 Perfecto was referred from Molina Herr MD [address] [place] [address] I.D.: Perfecto Polk is a 82 y.o. year old male being seen today to discuss his bilateral knee pain. he notes the right knee is more symptomatic, though this can vary. His history and physical exam were reviewed in detail. He states the knee has been symptomatic for years. The pain is predominantly medial. There was not inciting trauma/injury. He does not describe hip pain. He says that the pain is aggravated when he rides his bicycle. Stairs are a challenge. He cannot be as active as he would like. He has tried steroid injection, PT/HEP, OTC medication. Celebrex seems to help a bit. QUESTIONNAIRE RESPONSES: 05/18/2023 8:54 PM General Health, Prior Treatments, PreExisting Condition, Health Habits, About You KOOS JR Scores 50.01 05/18/2023 8:54 PM Orthopeadics [facility] Response KOOS JR Scores 50.01 05/18/2023 8:54 PM Spine [facility] Response KOOS JR Scores 50.01 05/18/2023 8:54 PM Hoos/Koos Jr KOOS JR SCORING 50.01 Degree of difficutly: Knee stiffness in morning Moderate Degree of difficutly: Twisting/pivoting on knee Moderate Degree of difficutly: Strightening knee fully Severe Degree of difficutly: Going up or down stairs Severe Degree of difficutly: Standing upright Mild Degree of difficutly: Rising from sitting Moderate Degree of difficutly: Bending to floor/filler picker object Moderate ALLERGIES Allergies Allergen Reactions Penicillins Hives SOCIAL HISTORY: reports that he has never smoked. He has never used smokeless tobacco. He reports that he does not currently use alcohol. He reports that he does not use drugs. 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 PHYSICAL EXAM: Constitution: Perfecto Polk sits in the clinic today alert, appears stated age and cooperative. He is alert and oriented. I have made the following determinations: Knee Exam: Right Prior surgery on this joint: Yes Knee ROM: Extension:0 Flexion: 115 Alignment: 0-4 degrees Varus Stability: A/P Translation <5mm. Varus (lateral stability) <5mm Valgus (medial stability) <5mm Extension La degrees or less Radiographic evidence of joint damage: [0= normal; 1=minimal ; 2= some osteophytes , some narrowing ; 3= moderate osteophytes, significantnarrowing, mild deformity; 4= large osteophytes, marked narrowing, obvious deformity]: 3= moderate osteophytes, significant narrorwing, mild deformity Patella Tracking: Normal Skin Integrity: Normal Pulses Palpable: Right PT: Yes Right DP:Yes Motor/Sensory: Distal Motor: Normal Distal Sensory: Normal Quadriceps Strength: 5 Knee Effusion: None. Ecchymosis: none Patella: Patellar apprehension test: negative Patellar compression test: negative Tenderness: medial joint line I have made the following determinations: Knee Exam: Left Prior surgery on this joint: No Knee ROM: Extension:0 Flexion: 115 Alignment: 0-4 degrees Neutral Stability: A/P Translation <5mm Varus (lateral stability) <5mm Valgus (medial stability) <5mm Extension La degrees or less Radiographic evidence of joint damage: [0= normal; 1=minimal ; 2= some osteophytes , some narrowing ; 3= moderate osteophytes, significantnarrowing, mild deformity; 4= large osteophytes, marked narrowing, obvious deformity]: 3= moderate osteophytes, significant narrorwing, mild deformity Patella Tracking: Normal Skin Integrity: Normal Pulses Palpable: Left PT:Yes Left DP:Yes Motor/Sensory: Distal Motor:Normal Distal Sensory: Normal Quadriceps Strength:5 Knee Effusion: None. Ecchymosis: none Patella: Patellar apprehension test: negative Patellar compression test: negative Tenderness: medial joint line IMAGING: X-rays of the bilateral knees demonstrate shows DJD changes, likely chronic. ASSESSMENT AND PLAN: Mr. Polk is a 82 y.o. year old male with severe osteoarthritis of his bilateral knees. Questions solicited and answered. We reviewed the multiple treatment options available to him for this condition and the hurtful but non-harmful nature of arthritis. Both operative and nonoperative options were discussed as well as the pure elective nature of each. I reviewed the concept of the arthritis ladder with its step-miller approach, rising in invasiveness based on either previous response or symptom severity/impact on lifestyle. Potential barriers to total joint arthroplasty: -BMI > 40: No -Active Tobacco use: No -Diabetes with hemoglobin A1C > 7.5: No Considering the apparent impact on his lifestyle and having explored non- operative treatment options, I indicated that in my opinion total knee arthroplasty would be a reasonable option to attempt torestore a more normal, pain-free level of function. I discussed how the procedure is performed and all of their questions were answered. I discussed the risks of the procedure and the potentially devastating consequences of complications. Mr. Polk expressed a desire to pursue total knee arthroplasty. Plan R TKA, DH or APD, SDD, Attune MURPHY Coombs documented in this encounter Plan of Treatment Upcoming Encounters Date Type Department Care Team (Late st Contact Info) Description 10/27/2023 11:15 AM EDT Office Visit Palliative Medicine at [place] [address] Elly Alston MD [facility] [address] HOSPICE AND [place] [address] 10/27/2023 1:00 PM EDT Office Visit Speech Therapy at [place] [address] Debra Franco, CARE TRANSITION COORDINATOR 11/03/2023 2:00 PM EDT Office Visit Speech Therapy at [place] [address] Debra Franco, CARE TRANSITION COORDINATOR 11/08/2023 2:30 PM EDT Appointment MRI at [place] [address] Navjot Grider MD [facility] [address] HEMATOLOGY [place] [address] 11/09/2023 1:45 PM EDT Office Visit Hematology and Oncology at [place] [address] Isabell Jacob MD [facility] [place] [address] 11/11/2023 10:30 AM EDT Office Visit Radiation Oncology at [place] [address] Nicki Sharpe MD [facility] [place] [address] 11/15/2023 10:00 AM EDT Office [place] [address] Debra Franco, CARE TRANSITION COORDINATOR 11/16/2023 9:00 AM EDT Office Visit Hematology [place] [address] Bisi Nam 11/22/2023 10:00 AM EDT Office [place] [address] Debra Franco, CARE TRANSITION COORDINATOR 11/30/2023 9:00 AM EDT Office Visit Hematology [place] [address] Bisi Nam 12/14/2023 9:00 AM EDT Office Visit Hematology [place] [address] Bisi Nam 12/28/2023 9:00 AM EDT Office Visit Hematology [place] [address] Bisi Nam documented as of this encounter Results * XR Knee Standing Alignment AP Lat [place] Right (08/03/2023 9:39 AM EDT) [employer] WORKSTATION ID [id number] [facility] Anatomical Region Laterality Modality Knee Right Digital [...] who have questions please contact the health healthcare architect that requested your imaging first. ? Electronically signed by: Nathalie Jarquin MD, [facility] ([phone]), at 08/03/2023 12:45 PM Narrative 08/03/2023 12:45 [...] patients who have questions please contactthe health healthcare architect that requested your imaging first. Ernie Fuchs MD IMG DX ORDERABLES * APTT (06/13/2023 11:24 AM EDT) [facility] Partial Thromboplastin Time 37 25 - 37 sec [facility] Comment: The PTT is NOT appropriate for heparin monitoring. Use the Anti-Xa level for heparin monitoring (HEP UFH) or LMWH monitoring (HEP LMW). A PTT less than 37 seconds generally indicates adequate hemostasis. Blood 06/13/2023 11:2 4 AM EDT 06/13/2023 11:36 AM EDT Narrative Resulting Agency Comment Spec In Lab Ernie Fuchs MD HEMATOLOGY ORDERABLE S [facility] [place] [address] * Prothrombin Time (06/13/2023 11:24 AM EDT) Prothrombin Time 11.3 9.4 - 12.5 sec [facility] International Normalization Ratio 1.0 [facility] Comment: An INR <2.0 indicates [...] Lab Ernie Fuchs MD HEMATOLOGY ORDERABLE S [facility] [place] [address] * (ABNORMAL) Basic Metabolic Panel (non-fasting) (06/13/2023 11:24 AM EDT) Pathologist [facility] Glucose 102 65 - 199 mg/dL [facility] Comment:Diabetes: >=200 mg/d L plus symptoms Blood Urea Nitrogen 20 10 - 20 mg/dL [facility] Creatinine 1.24 0.80 - 1.50 mg/dL [facility] Sodium 141 135 - 145 mmol/L [facility] Potassium 4.3 3.5 - 5.0 mmol/L [facility] Comment: Please note: ??Patients with WBC >100,000 may have falsely elevated Potassium levels. ??For accurate Potassium quantification in these patients send serum separator tube (gold top) for subsequent determinations. ??Contact the Clinical Chemistry Laboratory if there are any questions. Chloride 108(H) 98 - 107 mmol/L [facility] Carbon Dioxide 24 22 - 31 mmol/L [facility] Anion Gap 9 5 - 15 mmol/L [facility] Calcium 9.3 8.5 - 10.5 mg/dL [facility] Est Glomerular Filtration Rate 59(L) >=60 mL/min/1. 73 m?? [facility] [...] Comment Spec In Lab Ernie Fuchs MD CHEMISTRY ORDERABLES [facility] [place] [address] documented in this encounter Visit Diagnoses Diagnosis Primary osteoarthritis of right knee Primary localized osteoarthrosis, lower leg Right leg pain Pain in limb Primary osteoarthritis of right knee Primary localized osteoarthrosis, lower leg Right leg pain Pain in limb documented in this encounter Care Teams Bottom Cementer Relationship Specialty Start Date End Date Molina Herr MD [facility] [address] [place] [address] PCP - General 01/27/10 documented as of this encounter
--- OUTSIDE RECORDS SUMMARY | 2023-10-17 15:10 | XMS_ITS | Encounter Summary ---
Author Organization [facility] [place] [address] Care Team Providers Care Regulatory Affairs Strategy Specialist Name Role Phone Molina Herr MD Primary Care Provider [phone] Encounter Details Date Type Department Care Team (Latest Contact Info) Description 03/08/2023 11:49 AM EST - 03/08/2023 11:59 PM EST [place] [address] Discharge Disposition: Home Social History [...] 20 mg by mouth daily. 4 03/08/2014 [id number] (SOURCE CF) 200-10 mcg-mg Chew Take 1 [...] AM EDT Office Visit Palliative Medicine at [place] [phone] Elly Alston MD [facility] HOSPICE AND [place] [address] 10/27/2023 1:00 PM EDT Office Visit Speech Therapy at [address] Debra Franco, BLOOD BANK TECHNICIAN 11/03/2023 2:00 PM EDT Office Visit Speech Therapy at [place] [phone] Debra Franco, BLOOD BANK TECHNICIAN 11/08/2023 2:30 PM EDT Appointment MRI at [place] [phone] Navjot Grider MD [facility] [place] [address] 11/09/2023 1:45 PM EDT Office Visit Hematology and Oncology at [place] [address] Isabell Jacob MD [facility] [place] [address] 11/11/2023 10:30 AM EDT Office Visit [place] [address] Nicki Sharpe MD [facility] [place] [address] 11/15/2023 10:00 AM EDT Office [place] [address] Debra Franco, BLOOD BANK TECHNICIAN 11/16/2023 9:00 AM EDT Office Visit Hematology [place] [address] Bisi Nam 11/22/2023 10:00 AM EDT Office [place] [address] Debra Franco, BLOOD BANK TECHNICIAN 11/30/2023 9:00 AM EDT Office Visit Hematology [place] [address] Bisi Nam 12/14/2023 9:00 AM EDT Office Visit Hematology [place] [address] Bisi Nam 12/28/2023 9:00 AM EDT Office Visit Hematology [place] [address] Bisi Nam documented as of this encounter Procedures Procedure Name Priority Date/Time Associated Diagnosis Comments GOLD TUBE HOLD Routine 03/08/2023 11:55 AM EST LAVENDER TUBE HOLD Routine 03/08/2023 11 :55 AM EST LIPID PANEL (REFLEX DIRECT LDL) Routine 03/08/2023 11:55 AM EST COMPREHENSIVE METABOLIC PANEL Routine 03/08/2023 11:55 AM EST documented in this encounter Results * Lavender Tube HOLD (03/08/2023 11:55 AM EST) Lavender Hold Sample in lab. [facility] Blood No Charge / Unknown 03/08/2023 11:55 AM EST 03/08/2023 11:57 AM EST Molina Herr MD HEMATOLOGY ORDERABLE S Performing Organization Address City/[facility]/ZIP Co de Phone Number [facility] [place] [address] * Gold Tube HOLD (03/08/2023 11:55 AM EST) Gold Hold Sample in lab. [facility] Blood No Charge / Unknown 03/08/2023 11:55 AM EST 03/08/2023 11:56 AM EST Molina eHrr MD CHEMISTRY ORDERABLES Performing Organization Address [facility] Co de Phone Number [facility] [place] [address] * Lipid Panel (Reflex Direct LDL) (03/08/2023 11:55 AM EST) Cholesterol, Total 171 mg/dL M [facility] Comment: Lower Risk: <200 mg/dL Average Risk: 200-239 mg/dL Higher Risk: >kj=418 mg/dL Triglyceride 110 mg/dL [facility] Comment: Average Risk/Lower Risk: <150 mg/dL Borderline High Risk: 150-199 mg/dL High Risk: 200-499 mg/dL Very High Risk: >br=494 mg/dL HDL Cholesterol 51 mg/dL [facility] Comment: Males: ?? Higher Risk: <40 mg/dL Females: ?? Higher Risk: <50 mg/dL LDL Cholesterol 98 mg/dL [facility] Comment: Lowest Risk: <100 mg/dL Lower Risk: 100-129 mg/dL Borderline High Risk: 130-159 mg/dL High Risk: 160-189 mg/dL Very High Risk: >ay=656 mg/dL Cholesterol/HDL Ratio 3.4 ratio [facility] Lipid Interpretation See Note [facility] Comment: Lipid management should be guided by a patient? s ASCVD risk, goals and preferences. ACC/AHA Guidelines recommend high intensity statin if clinical ASCVD or LDL greater than or equal to 190 mg/dL. http://[employer].com/XKH-UEC-Ewhugutgo Adults aged 40-75 with LDL 70-189 mg/dL should have their 10 year ASCVD risk estimated with the ACC/AHA ASCVD risk estimator project manager http://tools.acc.org/HEGIO-Bylf-Bxhkgztfv/ Statin should be discussed if risk greater [...] risk reduction. Blood Venous Draw / Unknown 03/08/2023 11:55 AM EST 03/08/2023 11:55 AM EST Narrative Resulting Agency Comment Spec In Lab Molina Herr MD CHEMISTRY ORDERABLES [facility] [place] [address] * Comprehensive metabolic panel (non-fasting) (03/08/2023 11:55 AM EST) Glucose 97 65 - 199 mg/dL [facility] Comment:Diabetes: >=200 mg/d L plus symptoms Blood Urea Nitrogen 20 10 - 20 mg/dL [facility] Creatinine 1.21 0.80 - 1.50 mg/dL [facility] Sodium 142 135 - 145 mmol/L [facility] Potassium 4.3 3.5 - 5.0 mmol/L [facility] Comment: Please note: ??Patients with WBC >100,000 may have falsely elevated Potassium levels. ??For accurate Potassium quantification in these patients send serum separator tube (gold top) for subsequent determinations. ??Contact the Clinical Chemistry Laboratory if there are any questions. Chloride 107 98 - 107 mmol/L [facility] Carbon Dioxide 23 22 - 31 mmol/L [facility] Anion Gap 12 5 - 15 mmol/L [facility] Calcium 9.3 8.5 - 10.5 mg/dL [facility] Protein, Total 6.9 6.1 - 8.0 g/dL [facility] Albumin 4.1 3.2 - 5.2 g/dL [facility] Aspartate Aminotransferase 19 0 - 39 unit/L [facility] Alanine Aminotransferase 15 0 - 55 unit/L [facility] Alkaline Phosphatase 70 40 - 130 unit/L [facility] Bilirubin, Total 0.6 0.2 - 1.3 mg/dL [facility] Est Glomerular Filtration Rate 61 >=60 mL/min/1. 73 m?? [facility] Comment: This patient's estimated GFR was [...] to eGFR. Blood Venous Draw / Unknown 03/08/2023 11:55 AM EST 03/08/2023 11:55 AM EST Narrative Resulting Agency Comment Spec In Lab Molina Herr MD CHEMISTRY ORDERABLES Performing Organization Address City/State/[facility] Co de Phone Number [facility] [place] [address] documented in this encounter Visit Diagnoses Not on filedocumented in this encounter Care Teams Regulatory Affairs Strategy Specialist Relationship Specialty Start Date End Date Molina Herr MD [facility] [address] [place] [address] PCP - General 01/27/10 documented as of this encounter
--- OUTSIDE RECORDS SUMMARY | 2023-10-17 15:10 | XMS_ITS | Encounter Summary ---
[place] [address] Care Team Providers Care Squirt Machine Operator Name Role Phone Molina Herr MD Primary Care Provider [phone] Reason for Visit * Diagnostic Test (Routine) - Closed Specialty Diagnoses / Procedures Referred By Flo viveros Referred To Contact Diagnoses Carotid bruit, unspecified laterality Procedures Carotid Duplex, Bilateral Galen Gil APRN [facility] [place] [address] [facility] Vascular Lab [address] [place] [address] Referral ID Status Reason Start Date Expiration Date V isits Requested Visits Authorized [id number] Closed Specialty Service Requested 10/01/2022 10/01/2023 1 1 Encounter Details Date Type Department Care Team (Late st Contact Info) Description 11/19/2022 8:30 AM EDT Tech [place] [address] Ling Magana Carotid bruit, unspecified laterality Social History Tobacco Use Types [...] AM EDT Office Visit Palliative Medicine at [place] [address] Elly Alston MD [facility] DR HOSPICE AND [place] [address] 10/27/2023 1:00 PM EDT Office Visit Speech Therapy at [place] [address] Debra Franco, COUNTER STACKER 11/03/2023 2:00 PM EDT Office Visit Speech Therapy at [place] [address] Debra Franco, COUNTER STACKER 11/08/2023 2:30 PM EDT Appointment MRI at [place] [address] Navjot Grider MD [facility] DR HEMATOLOGY [place] [address] 11/09/2023 1:45 PM EDT Office Visit Hematology and Oncology at [place] [address] Isabell Jacob MD [facility] [place] [address] 11/11/2023 10:30 AM EDT Office Visit Radiation Oncology at [place] [address] Nicki Sharpe MD [facility] [place] [address] 11/15/2023 10:00 AM EDT Office Visit Speech Therapy at [place] [phone] Debra Franco, COUNTER STACKER 11/16/2023 9:00 AM EDT Office Visit Hematology [place] [address] Bisi Nam 11/22/2023 10:00 AM EDT Office [place] [address] Debra Franco, COUNTER STACKER 11/30/2023 9:00 AM EDT Office Visit Hematology [place] [address] Bisi Nam 12/14/2023 9:00 AM EDT Office Visit Hematology [place] [address] Bisi Nam 12/28/2023 9:00 AM EDT Office Visit Hematology [place] [address] Bisi Nam documented as of this encounter Procedures Procedure Name Priority Date/Time Associated Diagnosis Comments CAROTID DUPLEX, BILATERAL Routine 11/19/2022 8:03 AM EDT Carotid bruit, unspecified laterality documented in this encounter Results * Carotid Duplex, Bilateral (11/19/2022 8:03 AM EDT) VB Text Report Department: Vascular Surgery Lab Patient: [id number] (PERFECTO POLK) CPT: 74935 Referring Physician: GALEN GIL ?? Phone: Indications: Carotid bruit ? Carotid stenosis Findings: ICA Proximal, Right ? PSV (cm/s): 62 ? EDV (cm/s): 19 ? ICA/CCA: 0.9 ? Plaque Structure: Echogenic ? Plaque Surface: Irregular ? %Stenosis: <15% ICA Distal, Right ? PSV (cm/s): 61 ? EDV (cm/s): 24 ? ICA/CCA: 0.8 CCA Distal, Right ? PSV (cm/s): 72 ? EDV (cm/s): 17 ? %Stenosis: <50% CCA Proximal, Right ? PSV (cm/s): 85 ? EDV (cm/s): 14 External Carotid Artery, Right ? PSV (cm/s): 98 ? EDV (cm/s): 16 ? %Stenosis: 16-49% Vertebral, Right ? PSV (cm/s): 37 ? EDV (cm/s): 9 ? Direction of Flow: Antegrade ICA Proximal, Left ? PSV (cm/s): 41 ? EDV (cm/s): 16 ? ICA/CCA: 0.6 ? Plaque Structure: Echogenic ? Plaque Surface: Irregular ? %Stenosis: 16-49% ICA Distal, Left ? PSV (cm/s): 77 ? EDV (cm/s): 31 ? ICA/CCA: 1.2 CCA Distal, Left ? PSV (cm/s): 66 ? EDV (cm/s): 22 ? %Stenosis: <50% CCA Proximal, Left ? PSV (cm/s): 92 ? EDV (cm/s): 26 External Carotid Artery, Left ? PSV (cm/s): 69 ? EDV (cm/s): 16 ? %Stenosis: <50% Vertebral, Left ? PSV (cm/s): 67 ? EDV (cm/s): 20 ? Direction of Flow: Antegrade Interpretation: RIGHT: There [...] antegrade Doppler waveforms and velocities bilaterally. Comparison: ??No previous study in our vascular lab database for comparison. Electronically Signed by: ALBINA SANTILLAN on 2022-11-21 08:57:35 PM [facility] VB Text Report End of Report [facility] 11/19/2022 8:03 AM EDT Galen Gil APRN VASCULAR ORDERABLES [facility] documented in this encounter Visit Diagnoses Diagnosis Carotid bruit, unspecified laterality documented in this encounter Care Teams Squirt Machine Operator Relationship Specialty Start Date End Date Molina Herr MD [facility] [address] [place] [address] PCP - General 01/27/10 documented as of this encounter
--- OUTSIDE RECORDS SUMMARY | 2023-10-17 15:10 | XMS_ITS | Encounter Summary ---
Author Organization [facility] Address [facility] [place] [address] Care Team Providers Care Industrial Waste Inspector Name Role Phone Molina Herr MD Primary Care Provider [phone] Encounter Details Date Type Department Care Team (Latest Contact Info) Description 11/23/2022 Travel Social History Tobacco Use Types Packs/Day [...] AM EDT Office [place] [address] Elly Alston MD [facility] DR HOSPICE [place] [address] 10/27/2023 1:00 PM EDT Office [place] [phone] Debra Franco, DIE EQUIPMENT OPERATOR 11/03/2023 2:00 PM EDT Office Visit Speech Therapy at [place] [phone] Debra Franco, DIE EQUIPMENT OPERATOR 11/08/2023 2:30 PM EDT Appointment MRI at [address] Navjot Grider MD [facility] DR HEMATOLOGY [place] [address] 11/09/2023 1:45 PM EDT Office Visit Hematology and Oncology at [address] Isabell Jacob MD [facility] [place] [address] 11/11/2023 10:30 AM EDT Office Visit Radiation Oncology at [address] Nicki Sharpe MD [facility] [place] [address] 11/15/2023 10:00 AM EDT Office Visit Speech Therapy at [place] [phone] Debra Franco, DIE EQUIPMENT OPERATOR 11/16/2023 9:00 AM EDT Office Visit Hematology [place] [address] Bisi Nam 11/22/2023 10:00 AM EDT Office [place] [address] Debra Franco, ROLANDO 11/30/2023 9:00 AM EDT Office Visit Hematology [place] [address] Bisi Nam 12/14/2023 9:00 AM EDT Office Visit [place]ematology [place] [address] Bisi Nam 12/28/2023 9:00 AM EDT Office Visit [place]ematology [place] [address] Bisi Nam documented as of this encounter Visit Diagnoses Not on filedocumented in this encounter Care Teams Industrial Waste Inspector Relationship Specialty Start Date End Date Molina Hrer MD [facility] [address] [place] [address] PCP - General 01/27/10 documented as of this encounter
--- OUTSIDE RECORDS SUMMARY | 2023-10-17 15:10 | XMS_ITS | Encounter Summary ---
Author Organization [facility] [place] [address] Care Team Providers Care Labor Relations Supervisor Name Role Phone Molina Herr MD Primary Care Provider [phone] Encounter Details Date Type Department Care Team (Latest Contact Info) Description 01/20/2023 2:19 PM EST - 01/20/2023 4:34 PM EST Hospital En[place] [phone] Guerda Coombs MD [facility] [place] [address] Discharge Disposition: Home Social History Tobacco Use [...] 20 mg by mouth daily. 4 03/08/2014 [id number] (SOURCE CF) 200-10 mcg-mg Chew Take 1 [...] AM EDT Office [place] [address] Elly Alston MD [facility] DR HOSPICE AND [place] [address] 10/27/2023 1:00 PM EDT Office [place] [address] Debra Franco, RECREATION DIRECTOR 11/03/2023 2:00 PM EDT Office Visit Speech Therapy at [place] [phone] Debra Franco, RECREATION DIRECTOR 11/08/2023 2:30 PM EDT Appointment MRI at [place] [address] Navjot Grider MD [facility] DR HEMATOLOGY [place] [address] 11/09/2023 1:45 PM EDT Office Visit Hematology and Oncology at [address]1000 Isabell Jacob MD [facility] [place] [address] 11/11/2023 10:30 AM EDT Office Visit Radiation Oncology at [place] [address] Nicki Sharpe MD [facility] [place] [address] 11/15/2023 10:00 AM EDT Office Visit Speech Therapy at [place] [phone] Debra Franco, ROLANDO 11/16/2023 9:00 AM EDT Office Visit Hematology and Oncology at [place] [phone] Bisi Nam 11/22/2023 10:00 AM EDT Office [place] [address] Debra Franco, RECREATION DIRECTOR 11/30/2023 9:00 AM EDT Office Visit Hematology [place] [address] Bisi Nam 12/14/2023 9:00 AM EDT Office Visit Hematology [place] [address] Bisi Nam 12/28/2023 9:00 AM EDT Office Visit [place]ematology [place] [address] Bisi Nam documented as of this encounter Procedures Procedure Name Priority Date/Time Associated Diagnosis Comments SPECIMEN TO PATHOLOGY Routine 01/20/2023 3:54 PM EST SURGICAL PATHOLOGY REPORT Routine 01/20/2023 3:50 PM EST Colonoscopy, Elie Flores ([id number]) 01/20/2023 3:26 PM EST 5 year COLONOSCOPY Routine 01/20/2023 3:03 PM EST documented in this encounter Results * Specimen to Pathology (01/20/2023 3:54 PM EST) AP Specimen 01/20/2023 3:54 PM EST 01/20/2023 3:54 PM EST Narrative [facility] - 01/20/2023 3:54 PM EST Specimen requisition ordered. ??Separate Pathology report to follow Guerda Coombs MD PATHOLOGY/CYTOLOGY O RDERABLES [facility] [place] [address] * Surgical Pathology Report (01/20/2023 3:50 PM EST) Final Diagnosis [id number] ? Location: 4T; EA07; A The signing pathologist has (i) examined the relevant preparation(s) for the specimen(s) and (ii) rendered or confirmed the diagnosis(es). . ?Surgical Pathology DIAGNOSIS A - Descending colon polyp, resection: - ??Tubular adenoma. CR-PX Electronically signed by: ?Wendy SUNG PhD, Dayanna Verified: ??01/26/2023 8:57 ?? Pathologist Performed at: ??-[facility] [place], [place] [address] Airplane Navigator: Sona Hernandez MD, [facility], ??CLIA Certificate: [id number] SPECIMEN(S) SUBMITTED A - descending colon polyp, resection (1) CLINICAL INFORMATION 82-year-old male with history of polyps SPECIMEN PROCESSING A - Labeled/Fixativ e: Descending colon polyp, formalin. Quantity/Size: Single, 0.5 cm. Tissue Description: Soft, peraza-pink tissue. Sections/Proces sing: Submitted in toto ??in 1 cassette labeled A1. ??sdy 01/26/2023 8:57 AM EST [facility] GI Biopsy 01/20/2023 3:50 PM EST 01/20/2023 3:50 PM EST Guerda Coombs MD PATHOLOGY/CYTOLOGY O RDERASINGH Performing Organization Address [facility]/State/[facility] Co de Phone Number [facility] [address] [place] [address] * COLONOSCOPY (01/20/2023 3:03 PM EST) COLONOSCOPY [facility] Endoscopy Procedure Date: 01/20/2023 3:03 PM ? Patient Name: Perfecto Polk ? Date of : 1940 ? Age: 82 ? Order #: [id number] ? Instrument Name: [id number] ? Procedure: ? Colonoscopy Indications: ? High [...] GENERAL SURGICAL ORD ERABLES Performing Organization Address City/State/[facility] Co de Phone Number [facility] documented in this encounter Visit Diagnoses Not on filedocumented in this encounter Active and Recently Administered [...] [id number] (Given - Provider: Caren Alba RN) documented in this encounter Care Teams Labor Relations Supervisor Relationship Specialty Start Date End Date Molina Herr MD [facility] [address] [place] [address] PCP - General 01/27/10 documented as of this encounter
--- OUTSIDE RECORDS SUMMARY | 2023-10-17 15:10 | XMS_ITS | Encounter Summary ---
[place] [address] Care Team Providers Care Cooking Teacher Name Role Phone Molina Herr MD Primary Care Provider [phone] Encounter Details Date Type Department Care Team (Late st Contact Info) Description 01/10/2023 Telephone [place] [phone] Benitez Fernandez Social History Tobacco Use Types Packs/Day Years [...] encounter Miscellaneous Notes * Telephone Encounter - Benitez Fernandez - 01/10/2023 10:02 AM EST Perfecto Polk [id number] Diagnosis/Indication: 5 year Please review patient chart to confirm if previous Endoscopy procedure was performed within system. If yes, take note of Anesthesia type used. If previous procedure found, and with MAC/propofol Anesthesia support was used, schedule this procedure with Anesthesia and skip the Anesthesia portion of questions. If not performed within system, not performed at all, or performed with IVCS, ask Anesthesia questions. SCHEDULING QUESTIONS (ask all patient these questions) Have you ever had a/an Colonoscopy before? Yes: Date 01/12/18 If yes, did you have any problems with the procedure (such as waking up during the procedure, pain or difficulties afterwards, etc.)? No What type of sedation was used: IV Conscious Sedation Do you take any blood thinners or have you been diagnosed with a bleeding disorder that increases your risk of bleeding with procedures? No Do you have a Pacemaker or Defibrillator device? If yes, send pool message to Cardiology with patient information and date or procedure. No Are you a diabetic? If yes, call PCP/managing provider to discuss use of prep and any questions or concerns related to. No Do you take any iron supplements or vitamins that contain iron? Yes Do you have a preference regarding the gender of your provider? Yes yue ANESTHESIA QUESTIONS (YES to any question, please book with Anesthesia support) Have you ever been diagnosed with Pulmonary Hypertension and/or Congential Heart Disease? No Have you been diagnosed with A-Fib (atrial fibrillation) that is NOT being well controled with medications? No Have you ever had an allergic or adverse reaction to Fentanyl or Versed? No Have you had a problem with sedation or anesthesia? (Waking up during procedure, extreme confusion after, etc.) No Do you have a diagnosis of Obstructive Sleep Apnea that requires the use of a c- pap machine? No Do you use an oxygen tank at home? No Do you use a rescue inhaler more than twice per day? (COPD, severe asthma) No Do you experience breathing problems when you lay flat for a period of time? No Do you take prescription narcotic pain medications, including suboxone or methodone? No SCHEDULING CONFIRMATIONS: Please note any and all parts of your conversation with the patient here. We offer all new patients an opportunity to have an appointment with one of our associate care providers to learn more about your upcoming procedure, ask questions and get answers. These appointmentsare offered via telehealth. Would you be interested in scheduling this appointment? (Only ask if NEW referral patient; skip this question if [facility] GI provider ordered the procedure.) No Is there any other information or concerns you would like to us to share with your care team in relation to your upcoming scheduled procedure? No You must have a responsible libertarian who will drive you to your procedure, stay on campus for the entire duration of your procedure, and drive you home from your procedure. Who will likely be your operator and truck driver for the procedure? *Please Verify the height and weight, and adjust if height and/or weight have changed* Estimated body mass index is 27.32 kg/m?? as calculated from the following: Height as of 12/28/22: 175.3 cm (5' 9). Weight as of 12/28/22: 83.9 kg (185 lb). Age:82 y.o. documented in this encounter Plan of Treatment Upcoming Encounters Date Type Department Care Team (Late st Contact Info) Description 10/27/2023 11:15 AM EDT Office Visit Palliative Medicine at [place] [phone] Elly Alston MD [facility] HOSPICE AND [place] [address] 10/27/2023 1:00 PM EDT Office Visit Speech Therapy at [place] [phone] Debra Franco, DOUBLE ENDING MACHINE OPERATOR 11/03/2023 2:00 PM EDT Office Visit Speech Therapy at [place] [phone] Debra Franco, DOUBLE ENDING MACHINE OPERATOR 11/08/2023 2:30 PM EDT Appointment MRI at [place] [phone] Navjot Grider MD [facility] HEMATOLOGY [place] [address] 11/09/2023 1:45 PM EDT Office Visit Hematology and Oncology at [place] [phone] Isabell Jacob MD [facility] [place] [address] 11/11/2023 10:30 AM EDT Office Visit [place] [address] Nicki Sharpe MD [facility] DR [place] [address] 11/15/2023 10:00 AM EDT Office [place] [address] Debra Franco, DOUBLE ENDING MACHINE OPERATOR 11/16/2023 9:00 AM EDT Office Visit Hematology [place] [address] Bisi Nam 11/22/2023 10:00 AM EDT Office [place] [address] Debra Franco, DOUBLE ENDING MACHINE OPERATOR 11/30/2023 9:00 AM EDT Office Visit Hematology [place] [address] Bisi Nam 12/14/2023 9:00 AM EDT Office Visit Hematology [place] [address] Bisi Nam 12/28/2023 9:00 AM EDT Office Visit Hematology [place] [address] Bisi Nam documented as of this encounter Visit Diagnoses Not on filedocumented in this encounter Care Teams Cooking Teacher Relationship Specialty Start Date End Date Molina Herr MD [facility] [address] [place] [address] PCP - General 01/27/10 documented as of this encounter
--- OUTSIDE RECORDS SUMMARY | 2023-10-17 15:10 | XMS_ITS | Encounter Summary ---
Author Organization [facility] Address [facility] [place] [address] Care Team Providers Care Water And Fire Technician Name Role Phone Molina Herr MD Primary Care Provider [phone] Encounter Details Date Type Department Care Team (Latest Contact Info) Description 05/04/2023 Travel Social History Tobacco Use Types Packs/Day [...] AM EDT Office [place] [address] Elly Alston MD [facility] DR HOSPICE [place] [address] 10/27/2023 1:00 PM EDT Office [place] [address] Debra Franco, GUM MIXER 11/03/2023 2:00 PM EDT Office Visit Speech Therapy at [place] [phone] Debra Franco, ROLANDO 11/08/2023 2:30 PM EDT Appointment MRI at [address]1000 Navjot Grider MD [facility] [place] [address] 11/09/2023 1:45 PM EDT Office Visit Hematology and Oncology at [address]1000 Isabell Jacob MD [facility] [place] [address] 11/11/2023 10:30 AM EDT Office Visit Radiation Oncology at [place] [phone] Nicki Sharpe MD [facility] [place] [address] 11/15/2023 10:00 AM EDT Office Visit Speech Therapy at [place] [phone] Debra Franco SLP 11/16/2023 9:00 AM EDT Office Visit Hematology [place] [address] Bisi Nam 11/22/2023 10:00 AM EDT Office [place] [address] Debra Franco SLP 11/30/2023 9:00 AM EDT Office Visit Hematology [place] [address] Bisi Nam 12/14/2023 9:00 AM EDT Office Visit Hematology [place] [address] Bisi Nam 12/28/2023 9:00 AM EDT Office Visit Hematology [place] [address] Bisi Nam documented as of this encounter Visit Diagnoses Not on filedocumented in this encounter Care Teams Water And Fire Technician Relationship Specialty Start Date End Date Molina Herr MD [facility] [address] [place] [address] PCP - General 01/27/10 documented as of this encounter
--- OUTSIDE RECORDS SUMMARY | 2023-10-17 15:10 | XMS_ITS | Encounter Summary ---
Author Organization [facility] Address [facility] [place] [address] Care Team Providers Care Wreath Machine Tender Name Role Phone Molina Herr MD Primary Care Provider [phone] Encounter Details Date Type Department Care Team (Latest Contact Info) Description 11/17/2022 Travel Social History Tobacco Use Types Packs/Day [...] AM EDT Office [place] [address] Elly Alston MD [facility] DR HOSPICE AND [place] [address] 10/27/2023 1:00 PM EDT Office [place] [address] Debra Franco, ENVIRONMENTAL PROTECTION GEOLOGIST 11/03/2023 2:00 PM EDT Office Visit Speech Therapy at [place] [phone] Debra Franco, ENVIRONMENTAL PROTECTION GEOLOGIST 11/08/2023 2:30 PM EDT Appointment MRI at [address]1000 Navjot Grider MD [facility] [address] [place] [address] 11/09/2023 1:45 PM EDT Office Visit Hematology and Oncology at [address]1000 Isabell Jacob MD [facility] [place] [address] 11/11/2023 10:30 AM EDT Office Visit Radiation Oncology at [address]1000 Nicki Sharpe MD [facility] [place] [address] 11/15/2023 10:00 AM EDT Office Visit Speech Therapy at [place] [phone] Debra Franco, ENVIRONMENTAL PROTECTION GEOLOGIST 11/16/2023 9:00 AM EDT Office Visit Hematology [place] [address] Bisi Nam 11/22/2023 10:00 AM EDT Office [place] [address] Debra Franco, ROLANDO 11/30/2023 9:00 AM EDT Office Visit [place]ematology [place] [address] Bisi Nam 12/14/2023 9:00 AM EDT Office Visit [place]ematology [place] [address] Bisi Nam 12/28/2023 9:00 AM EDT Office Visit [place]ology [place] [address] Bisi Nam documented as of this encounter Visit Diagnoses Not on filedocumented in this encounter Care Teams Wreath Machine Tender Relationship Specialty Start Date End Date Molina Herr MD [facility] [address] [place] [address] PCP - General 01/27/10 documented as of this encounter
--- OUTSIDE RECORDS SUMMARY | 2023-10-17 15:10 | XMS_ITS | Encounter Summary ---
Author Organization [facility] Address [facility] [place] [address] Care Team Providers Care Special Duty Nurse Name Role Phone Molina Herr MD Primary Care Provider [phone] Encounter Details Date Type Department Care Team (Latest Contact Info) Description 11/30/2022 Travel Social History Tobacco Use Types Packs/Day [...] AM EDT Office [place] [address] Elly Alston MD [facility] DR HOSPICE [place] [address] 10/27/2023 1:00 PM EDT Office [place] [address] Debra Franco, TELEGRAPHIC TYPEWRITER OPERATOR 11/03/2023 2:00 PM EDT Office Visit Speech Therapy at [place] [phone] eDbra Franco, TELEGRAPHIC TYPEWRITER OPERATOR 11/08/2023 2:30 PM EDT Appointment MRI at [address] Navjot Grider MD [facility] [address] [place] [address] 11/09/2023 1:45 PM EDT Office Visit Hematology and Oncology at [address]1000 Isabell Jacob MD [facility] [place] [address] 11/11/2023 10:30 AM EDT Office Visit Radiation Oncology at [address]1000 Nicki Sharpe MD [facility] [place] [address] 11/15/2023 10:00 AM EDT Office Visit Speech Therapy at [place] [phone] Debra Franco, TELEGRAPHIC TYPEWRITER OPERATOR 11/16/2023 9:00 AM EDT Office Visit Hematology [place] [address] Bisi Nam 11/22/2023 10:00 AM EDT Office [place] [address] Debra Franco, ROLANDO 11/30/2023 9:00 AM EDT Office Visit Hematology [place] [address] Bisi Nam 12/14/2023 9:00 AM EDT Office Visit Hematology [place] [address] Bisi Nam 12/28/2023 9:00 AM EDT Office Visit Hematology [place] [address] Bisi Nam documented as of this encounter Visit Diagnoses Not on filedocumented in this encounter Care Teams Special Duty Nurse Relationship Specialty Start Date End Date Molina Herr MD [address] [place] [address] PCP - General 01/27/10 documented as of this encounter
--- OUTSIDE RECORDS SUMMARY | 2023-10-17 15:10 | XMS_ITS | Encounter Summary ---
Author Organization [facility] Address [facility] [place] [address] Care Team Providers Care Cloak Room Attendant Name Role Phone Molina Herr MD Primary Care Provider [phone] Encounter Details Date Type Department Care Team (Latest Contact Info) Description 11/24/2022 Travel Social History Tobacco Use Types Packs/Day [...] AM EDT Office [place] [address] Elly Alston MD [facility] [address] HOSPICE [place] [address] 10/27/2023 1:00 PM EDT Office [place] [phone] Debra Franco, TIN CAN LABORER 11/03/2023 2:00 PM EDT Office Visit Speech Therapy at [place] [phone] Debra Franco, TIN CAN LABORER 11/08/2023 2:30 PM EDT Appointment MRI at [address]1000 Navjot Grider MD [facility] DR HEMATOLOGY [place] [address] 11/09/2023 1:45 PM EDT Office Visit Hematology and Oncology at [address]1000 Isabell Jacob MD [facility] [place] [address] 11/11/2023 10:30 AM EDT Office Visit Radiation Oncology at [address] Nicki Sharpe MD [facility] [place] [address] 11/15/2023 10:00 AM EDT Office Visit Speech Therapy at [place] [phone] Debra Franco, TIN CAN LABORER 11/16/2023 9:00 AM EDT Office Visit Hematology [place] [address] Bisi Nam 11/22/2023 10:00 AM EDT Office [place] [address] Debra Franco, ROLANDO 11/30/2023 9:00 AM EDT Office Visit Hematology [place] [address] Bisi Nam 12/14/2023 9:00 AM EDT Office Visit Hematology [place] [address] Bisi Nam 12/28/2023 9:00 AM EDT Office Visit Hematology [place] [address] Bisi Nam documented as of this encounter Visit Diagnoses Not on filedocumented in this encounter Care Teams Cloak Room Attendant Relationship Specialty Start Date End Date Molina Herr MD [address] [place] [address] PCP - General 01/27/10 documented as of this encounter
--- OUTSIDE RECORDS SUMMARY | 2023-10-17 15:11 | XMS_ITS | Encounter Summary ---
Author Organization [facility] [address] Care Team Providers Care Hot Wire Glass Tube Cutter Name Role Phone Molina Herr MD Primary Care Provider [phone] Reason for Referral * Audiology Exam (Routine) - Closed Specialty Diagnoses / Procedures Referred By Contac t Referred To Contact Audiology Diagnoses Hearing loss, unspecified hearing loss type, unspecified laterality Molina Herr MD [address] [place] [address] [place] [address] Referral ID Status Reason Start Date Expiration Date V isits Requested Visits Authorized [id number] Closed Test Only 05/28/2021 05/28/2022 1 1 Encounter Details Date Type Department Care Team (Latest Contact Info) Description 05/28/2021 Transcribe Orders Audiology at [address] [address] Saray Valenuzela Hearing loss, unspecified hearing loss type, unspecified laterality Social History Tobacco Use Types Packs/Day Years Used Date Smoking Tobacco: Never Smokeless Tobacco: Never Alcohol Use Standard Drinks/Week Comments Yes 3 (1 standard drink = 0.6 oz pur [...] Office Visit Palliative Medicine at [place] [address] Elly Alston MD [facility] HOSPICE AND [place] [address] 10/27/2023 1:00 PM EDT Office Visit Speech Therapy at [place] [address] Debra Franco, BLACKSMITH SUPERVISOR 11/03/2023 2:00 PM EDT Office Visit Speech Therapy at [place] [address] Debra Franco, BLACKSMITH SUPERVISOR 11/08/2023 2:30 PM EDT Appointment MRI at [place] [address] Navjot Grider MD [facility] HEMATOLOGY [place] [address] 11/09/2023 1:45 PM EDT Office Visit Hematology and Oncology at [place] [address] Isabell Jacob MD [facility] [place] [address] 11/11/2023 10:30 AM EDT Office Visit Radiation Oncology at [place] [address] Nicki Sharpe MD [facility] [place] [address] 11/15/2023 10:00 AM EDT Office Visit Speech Therapy at [facility] [place] [address] Debra Franco, BLACKSMITH SUPERVISOR 11/16/2023 9:00 AM EDT Office Visit Hematology [place] [address] Bisi Nam 11/22/2023 10:00 AM EDT Office Visit Speech Therapy at [facility] [place] [address] Debra Franco BLACKSMITH SUPERVISOR 11/30/2023 9:00 AM EDT Office Visit Hematology and Oncology at [facility] [place] [address] Bisi Nam 12/14/2023 9:00 AM EDT Office Visit Hematology [place] [address] Bisi Nam 12/28/2023 9:00 AM EDT Office Visit Hematology and Oncology at [facility] [place] [address] Bisi Nam Scheduled Referrals Name Type Priority Associated Diagnoses Orde r Schedule Referral to Audiology Outpatient Referral Routine Hearing loss, unspecified hearing loss type, unspecified laterality Ordered: 05/28/2021 documented as of this encounter Visit Diagnoses Diagnosis Hearing loss, unspecified hearing loss type, unspecified laterality documented in this encounter Care Teams Hot Wire Glass Tube Cutter Relationship Specialty Start Date End Date Molina Herr MD [address] [place] [address] PCP - General 01/27/10 documented as of this encounter
--- OUTSIDE RECORDS SUMMARY | 2023-10-17 15:11 | XMS_ITS | Encounter Summary ---
[place] [address] Care Team Providers Care Dean Of Chapel Name Role Phone Molina Herr MD Primary Care Provider [phone] Encounter Details Date Type Department Care Team (Late st Contact Info) Description 06/10/2021 Telephone [place] [phone] Padmaja Chavez Social History Tobacco Use Types Packs/Day Years [...] encounter Miscellaneous Notes * Telephone Encounter - Padmaja Chavez - 06/10/2021 10:55 AM EDT Called patient to offer earlier procedure time. Patient accepted the earlier time at the 11:30 spoton 06/11/21. documented in this encounter Plan of Treatment Upcoming Encounters Date Type Department Care Team (Late st Contact Info) Description 10/27/2023 11:15 AM EDT Office Visit Palliative Medicine at [place] [address] Elly Alston MD [facility] DR HOSPICE AND PALLIATIVE [place] [address] 10/27/2023 1:00 PM EDT Office Visit Speech Therapy at [place] [address] Debra Franco, RIGHT OF WAY AGENT 11/03/2023 2:00 PM EDT Office Visit Speech Therapy at [place] [address] Debra Franco, RIGHT OF WAY AGENT 11/08/2023 2:30 PM EDT Appointment MRI at [place] [address] Navjot Grider MD [facility] DR HEMATOLOGY [place] [address] 11/09/2023 1:45 PM EDT Office Visit Hematology and Oncology at [place] [address] Isabell Jacob MD [facility] [place] [address] 11/11/2023 10:30 AM EDT Office Visit Radiation Oncology at [place] [address] Nicki Sharpe MD [facility] DR RADI[place] [address] 11/15/2023 10:00 AM EDT Office Visit Speech Therapy at [place] [phone] Debra Franco, RIGHT OF WAY AGENT 11/16/2023 9:00 AM EDT Office Visit Hematology and Oncology at [place] [address] Bisi Nam 11/22/2023 10:00 AM EDT Office [place] [address] Debra Franco, RIGHT OF WAY AGENT 11/30/2023 9:00 AM EDT Office Visit Hematology [place] [address] Bisi Nam 12/14/2023 9:00 AM EDT Office Visit Hematology [place] [address] Bisi Nam 12/28/2023 9:00 AM EDT Office Visit Hematology [place] [address] Bisi Nam documented as of this encounter Visit Diagnoses Not on filedocumented in this encounter Care Teams Dean Of Chapel Relationship Specialty Start Date End Date Molina Herr MD [address] [place] [address] PCP - General 01/27/10 documented as of this encounter
--- OUTSIDE RECORDS SUMMARY | 2023-10-17 15:11 | XMS_ITS | Encounter Summary ---
Author Organization [facility] [place] [address] Care Team Providers Care Aviation Electrical Technician Name Role Phone Molina Herr MD Primary Care Provider [phone] Encounter Details Date Type Department Care Team (Latest Contact Info) Description 06/22/2021 2:00 PM EDT Office Visit [place] [address] Rodney Gonzalez PA [facility] [place] [address] Sensorineural hearing loss (SNHL) of both ears; Tinnitus of both ears; Exostosis of both external ear canals; Foreign body of right ear, initial encounter Social History Tobacco Use Types [...] - - Weight 81.6 kg (180 lb) 06/22/2021 2:13 PM EDT Height 175.3 cm (5' 9) 06/22/2021 2:13 PM EDT Body Mass Index 26.58 06/22/2021 2:13 PM EDT documented in this encounter Progress Notes * Rodney Gonzalez PA - 06/22/2021 2:00 PM EDT [facility] Rodney Gonzalez PA-C 06/22/21 2:14 PM [place], [place] [address] Office Patient Name: Perfecto Polk Date of : 1940 PCP: Molina Herr MD Chief Complaint: Hearing Loss This patient is seen in consult today at the request of their primary caregiver and the referring provider, No ref. provider found HPI: Perfecto Polk is a 80 y.o. male who presents to clinic with a chief complaint of hearing loss. Symptoms: Hearing loss: Yes, for several years. Has worn POLLARD for several years but felt like they were not working as well as they used to. Evalauted in Audiology and referred to ENT for evaluation of asymmetrical SNHL and small mass in Left ear Tinnitus: Yes, bilateral. Better when wearing hearing aids. Better hearing ear: Right Fullness: No Otalgia: No Otorrhea: No Vertigo: No Prior hearing aid use? Yes Acoustic trauma, barotrauma, or head injury? No Excessively loud sound exposure history? No, history of occupational noise exposure for 1 summer asa teenager Prior ear surgery? No Past Medical History: Diagnosis Date ??? Lumbar degenerative disc disease 08/21/2010 Family History Problem Relation Age of Onset ??? Cancer Brother Social History Tobacco Use ??? Smoking status: Never Smoker ??? Smokeless tobacco: Never Used Vaping Use ??? Vaping Use: Never used Substance Use Topics ??? Alcohol use: Not Currently ??? Drug use: No No outpatient medications have been marked as taking for the 06/22/21 encounter (Office Visit) with Rodney Gonzalez PA. Physical Exam Constitutional: he is oriented to person, place, and time. he appears well- developed and well-nourished. Head: Normocephalic and atraumatic. Head is without abrasion and without contusion. Hair is normal. Ears: External ears without deformity. See documentation of otomicroscopy below. Hearing is grossly normal. Nose: No mucosal edema, rhinorrhea, nasal deformity or nasal septal hematoma. No epistaxis. Mouth/Throat: Uvula is midline, oropharynx is clear and moist and mucous membranes are normal. Mucous membranes are not pale and not dry. No oral lesions. No trismus in the jaw. Normal dentition. No uvula swelling. No oropharyngeal exudate, posterior oropharyngeal edema, posterior oropharyngeal erythema or tonsillar abscesses. Neck: Normal range of motion and phonation normal. Neck supple. No tracheal deviation, no edema andno erythema present. No thyroid mass present. Neuro: AOx3; Sharp sensation intact and symmetric bilaterally in all trigeminal branches Masseter strength is equal and symmetrical (CN V) TMJ is non tender Facial Nerve Function is strong and symmetric (CN VII) House-Brackman I Hitselberger Test - no hypoesthesia in either EAC (CNVII) Palate is midline and voice is strong (CN IX & X) Tongue is midline (CN XII) Shoulder elevation is strong and symmetrical (XI) Procedure Note: Binocular otomicroscopy was performed: Left side: Ear canal clear with prominent exostoses. Otherwise clean/clearn. Tympanic membrane intact and translucent with normal landmarks Right side: Ear canal with old POLLARD dome obstructing ear canal. Removed with simple tools. Once removed, EAC clean/clear Tympanic membrane intact and translucent with normal landmarks Audiogram : Audiogram 06/09/21 Right- Normal sloping to severe SNHL Left- Normal sloping to profound SNHL Tympanograms: DNT Word discrimination: Right- 84% at 80dB; Left- 76% at 85dB Labs: None Radiology (I personally review the images): None Assessment: Perfecto Polk is a 80 y.o. male with signs and symptoms most consistent with bilateral SNHL. Discussed his hearing loss is most consistent with age related changes. Considered retrocochlear pathology but thought to be less likely due to minimal degree of asymmetry, lack of unilateral tinnitus, no dizziness/dysequilibiurm. He's medically cleared for POLLARD. Discussed exostoses are a benign conditionand not further work-up is indicated. Continue to follow up with Audiology for hearing aid care. FERNIE Xie, MS, PA-C, [place] [address] phone: [phone] documented in this encounter Plan of Treatment Upcoming Encounters Date Type Department Care Team (Late st Contact Info) Description 10/27/2023 11:15 AM EDT Office Visit Palliative Medicine at [place] [address] Elly Alston MD [facility] HOSPICE AND [place] [address] 10/27/2023 1:00 PM EDT Office Visit Speech Therapy at [place] [address] Debra Franco, RENEWABLE ENERGY TRADER 11/03/2023 2:00 PM EDT Office Visit Speech Therapy at [place] [address] Debra Franco, RENEWABLE ENERGY TRADER 11/08/2023 2:30 PM EDT Appointment MRI at [place] [address] Navjot Grider MD [facility] HEMATOLOGY [place] [address] 11/09/2023 1:45 PM EDT Office Visit Hematology and Oncology at [address] Isabell Jacob MD [facility] [place] [address] 11/11/2023 10:30 AM EDT Office Visit Radiation Oncology at [address] Nicki Sharpe MD [facility] [place] [address] 11/15/2023 10:00 AM EDT Office [place] [address] Debra Franco, RENEWABLE ENERGY TRADER 11/16/2023 9:00 AM EDT Office Visit Hematology [place] [address] Bisi Nam 11/22/2023 10:00 AM EDT Office [place] [address] Debra Franco, RENEWABLE ENERGY TRADER 11/30/2023 9:00 AM EDT Office Visit Hematology [place] [address] Bisi Nam 12/14/2023 9:00 AM EDT Office Visit Hematology [place] [address] Bisi Nam 12/28/2023 9:00 AM EDT Office Visit Hematology [place] [address] Bisi Nam documented as of this encounter Visit Diagnoses Diagnosis Sensorineural hearing loss (SNHL) of both ears Tinnitus of both ears Unspecified tinnitus Exostosis of both external ear canals Foreign body of right ear, initial encounter documented in this encounter Care Teams Aviation Electrical Technician Relationship Specialty Start Date End Date Molina Herr MD [address] [place] [address] PCP - General 01/27/10 documented as of this encounter
--- OUTSIDE RECORDS SUMMARY | 2023-10-17 15:11 | XMS_ITS | Encounter Summary ---
Author Organization [facility] Address [facility] [place] [address] Care Team Providers Care Healthcare Consulting Manager Name Role Phone Molina Herr MD Primary Care Provider [phone] Encounter Details Date Type Department Care Team (Latest Contact Info) Description 02/04/2021 1:05 PM EST - 02/04/2021 11:59 PM EST Hospital Encounter XRay at [address] [place] [address] Ernie Fuchs MD [facility] [place] [address] Pain in both knees, unspecified chronicity Discharge [...] 20 mg by mouth daily. 4 03/08/2014 ffnalnaqavfuj-YM-ghno (SOURCE CF) 200-10 mcg-mg Chew Take 1 tablet by mouth daily. 08/04/2010 levothyroxine (SYNTHROID) 25 mcg tablet 25MCG = 1 Tablet(s), PO, Once daily 09/27/2007 atorvastatin (LIPITOR) 10 mg tablet Take 20 mg by mouth. 09/27/2007 ibuprofen (ADVIL;MOTRIN) 400 mg Tablet Take 400 [...] AM EDT Office Visit Palliative Medicine at [place] [phone] Elly Alston MD [facility] HOSPICE [place] [address] 10/27/2023 1:00 PM EDT Office Visit Speech Therapy at [place] [phone] Debra Franco, WIND POWER PROJECT MANAGER 11/03/2023 2:00 PM EDT Office [place] [address] Debra Franco, WIND POWER PROJECT MANAGER 11/08/2023 2:30 [place] [address] Navjot Grider MD [facility] [place] [address] 11/09/2023 1:45 PM EDT Office Visit Hematology [place] [address] Isabell Jacob MD [facility] [address] 11/11/2023 10:30 AM EDT Office Visit Radiation Oncology at [place] [phone] Nicki Sharpe MD [facility] [place] [address] 11/15/2023 10:00 AM EDT Office [place] [address] Debra Franco, WIND POWER PROJECT MANAGER 11/16/2023 9:00 AM EDT Office Visit Hematology [place] [address] Bisi Nam 11/22/2023 10:00 AM EDT Office [place] [address] Debra Franco, WIND POWER PROJECT MANAGER 11/30/2023 9:00 AM EDT Office Visit Hematology [place] [address] Bisi Nam 12/14/2023 9:00 AM EDT Office Visit [place]ematology [place] [address] Bisi Nam 12/28/2023 9:00 AM EDT Office Visit [place]ematology [place] [address] Bisi Nam documented as of this encounter Procedures Procedure Name Priority Date/Time Associated Diagnosis Comments XR KNEE AP AND LAT BILAT Routine 02/04/2021 1:16 PM EST Pain in both knees, unspecified chronicity documented in this encounter Results * XR Knee 1-2 Views Bilat (Generic) (02/04/2021 1:16 PM EST) Anatomical Region Laterality Modality Knee Bilateral Digital Radiogra phy Impressions 02/04/2021 2:02 PM EST Osteoarthropathy of both knees with moderate to severe narrowing of medial joint spaces and osteophyte formation, unchanged. Thank you for letting us participate in the care of this patient. ??If you are a health care provider and have any questions regarding this report, please contact the number below. ??For patients who have questions please contact the health acute care assistant that requested your imaging first. ? Electronically signed by: Deepa Nazario MD, [facility] ([phone]), at 02/04/2021 2:02 PM Narrative 02/04/2021 2:02 PM EST EXAMINATION: XR KNEE 1-2 VIEWS BILAT (GENERIC) CLINICAL HISTORY: bilateral knee pain, , entered by ordering service TECHNIQUE: Standing AP and lateral views of both knees 2 views COMPARISON: Radiographs, November 2018 FINDINGS: Bones No acute fracture Knee Joints Moderately severe narrowing of medial joint space is redemonstrated. There are tricompartment osteophytes. No knee effusions. Soft tissues No chondrocalcinosis. Procedure Note Deepa Nazario MD - 02/04/2021 EXAMINATION: XR KNEE 1-2 VIEWS BILAT (GENERIC) CLINICAL HISTORY: bilateral knee pain, , entered by ordering service TECHNIQUE: Standing AP and lateral views of both knees 2 views COMPARISON: Radiographs, November 2018 FINDINGS: Bones No acute fracture Knee Joints Moderately severe narrowing of medial joint space is redemonstrated. Thereare tricompartment osteophytes. No knee effusions. Soft tissues No chondrocalcinosis. IMPRESSION Osteoarthropathy of both knees with moderate to severe narrowing of medialjoint spaces and osteophyte formation, unchanged. Thank you for letting us participate in the care of this patient. If youare a health care provider and have any questions regarding this report,please contact the number below. For patients who have questions please contactthe health acute care assistant that requested your imaging first. Electronically signed by: Deepa Nazario MD, [facility]([phone]), at 02/04/2021 2:02 PM Ernie Fuchs MD IMG DX ORDERABLES documented in this encounter Visit Diagnoses Diagnosis Pain in both knees, unspecified chronicity documented in this encounter Care Teams Healthcare Consulting Manager Relationship Specialty Start Date End Date Molina Herr MD [address] [place] [address] PCP - General 01/27/10 documented as of this encounter
--- OUTSIDE RECORDS SUMMARY | 2023-10-17 15:11 | XMS_ITS | Encounter Summary ---
Author Organization [facility] [place] [address] Care Team Providers Care Senior Security Engineer Name Role Phone Molina Herr MD Primary Care Provider [phone] Reason for Visit * Audiology Exam (Routine) - Closed Specialty Diagnoses / Procedures Referred By Contac t Referred To Contact Audiology Diagnoses Hearing loss, unspecified hearing loss type, unspecified laterality Molina Herr MD [address] [place] [address] Bisi Chang [facility] [place] [address] Referral ID Status Reason Start Date Expiration Date V isits Requested Visits Authorized [id number] Closed Test Only 05/28/2021 05/28/2022 1 1 Encounter Details Date Type Department Care Team (Late st Contact Info) Description 06/09/2021 9:45 AM EDT Office Visit Audiology at [address] [phone] Bisi Chang [facility] [place] [address] Asymmetrical sensorineural hearing loss Social History Tobacco Use Types Packs/Day Years [...] as of this encounter Progress Notes * Bisi Chang AUD - 06/09/2021 9:45 AM ED[place] [address] Perfecto Polk was seen on 06/09/2021 for an audiologic evaluation. Please refer to the scanned audiogram listed under Procedures for findings, impressions, and recommendations. Bonnie Montemayor, [facility] [address] ; documented in this encounter Plan of Treatment Upcoming Encounters Date Type Department Care Team (Late st Contact Info) Description 10/27/2023 11:15 AM EDT Office Visit [place] [phone] Elly Alston MD [facility] DR HOSPICE [place] [address] 10/27/2023 1:00 PM EDT Office [place] [phone] Debra Franco, DIRT CONTRACTOR 11/03/2023 2:00 PM EDT Office [place] [phone] Debra Franco DIRT CONTRACTOR 11/08/2023 2:30 PM [place] [phone] Navjto Grider MD [facility] DR [place]Y [place] [address] 11/09/2023 1:45 PM EDT Office Visit Hematology and Oncology at [address] Isabell Jacob MD [facility] [place] [address] 11/11/2023 10:30 AM EDT Office Visit Radiation Oncology at [address] Nicki Sharpe MD [facility] [place] [address] 11/15/2023 10:00 AM EDT Office Visit Speech Therapy at [place] [phone] Debra Franco, DIRT CONTRACTOR 11/16/2023 9:00 AM EDT Office Visit Hematology and Oncology at [place] [phone] Bisi Nam 11/22/2023 10:00 AM EDT Office Visit Speech Therapy at [place] [phone] Debra Franco, DIRT CONTRACTOR 11/30/2023 9:00 AM EDT Office Visit Hematology [place] [address] Bisi Nam 12/14/2023 9:00 AM EDT Office Visit Hematology [place] [address] Bisi Nam 12/28/2023 9:00 AM EDT Office Visit Hematology [place] [address] Bisi Nam documented as of this encounter Procedures Procedure Name Priority Date/Time Associated Diagnosis Comments COMPREHENSIVE HEARING TEST Routine 06/09/2021 9:31 AM EDT documented in this encounter Results * Comprehensive hearing test (06/09/2021 9:31 AM EDT) 06/09/2021 9:31 AM EDT Narrative AUDBASE COMP - 06/09/2021 9:31 AM EDT 1. Annual hearing evaluation to monitor hearing loss, sooner if concerns arise or per ENT. 2. ENT consult for c/o asymmetrical SNHL, to be scheduled. 3. Hearing aid check, to be scheduled. Procedure Note Unknown - 06/09/2021 1. Annual hearing evaluation to monitor hearing loss, sooner if concernsarise or per ENT. 2. ENT consult for c/o asymmetrical SNHL, to be scheduled. 3. Hearing aid check, to be scheduled. Bisi Chang AUD AUDIOLOGY SERVI [employer] ORDERABLES AUDBASE COMP documented in this encounter Visit Diagnoses Diagnosis Asymmetrical sensorineural hearing loss Sensorineural hearing loss, asymmetrical documented in this encounter Care Teams Senior Security Engineer Relationship Specialty Start Date End Date Molina Herr MD [address] [place] [address] PCP - General 01/27/10 documented as of this encounter
--- OUTSIDE RECORDS SUMMARY | 2023-10-17 15:11 | XMS_ITS | Encounter Summary ---
[place] [address] Care Team Providers Care Parish Worker Name Role Phone Molina Herr MD Primary Care Provider [phone] Encounter Details Date Type Department Care Team (Late st Contact Info) Description 06/09/2021 Telephone Audiology at [address] [phone] Saray Valenzuela Social History Tobacco Use Types Packs/Day Years [...] encounter Miscellaneous Notes * Telephone Encounter - Saray Valenzuela - 06/09/2021 2:59 PM EDT He will be calling back to schedule HAC w/ any adult AuD (previous JJ pt), ENT consult (needs scheduled). Please coordinate HAC and ENT consult on same day. Thank you documented in this encounter Plan of Treatment Upcoming Encounters Date Type Department Care Team (Late st Contact Info) Description 10/27/2023 11:15 AM EDT Office Visit Palliative Medicine at [place] [address] Elly Alston MD [facility] DR HOSPICE AND [place] [address] 10/27/2023 1:00 PM EDT Office Visit Speech Therapy at [address] Debra Franco, ROUTER OPERATOR 11/03/2023 2:00 PM EDT Office Visit Speech Therapy at [place] [address] Debra Franco, ROUTER OPERATOR 11/08/2023 2:30 PM EDT Appointment MRI at [place] [address] Navjot Grider MD [facility] DR HEMATOLOGY [place] [address] 11/09/2023 1:45 PM EDT Office Visit Hematology and Oncology at [place] [address] Isabell Jacob MD [facility] [place] [address] 11/11/2023 10:30 AM EDT Office Visit Radiation Oncology at [place] [address] Nicki Sharpe MD [facility] [place] [address] 11/15/2023 10:00 AM EDT Office Visit Speech Therapy at [place] [phone] Debra Franco, ROUTER OPERATOR 11/16/2023 9:00 AM EDT Office Visit Hematology and Oncology at [place] [phone] Bisi Nam 11/22/2023 10:00 AM EDT Office [place] [address] Debra Franco, ROUTER OPERATOR 11/30/2023 9:00 AM EDT Office Visit Hematology [place] [address] Bisi Nam 12/14/2023 9:00 AM EDT Office Visit Hematology [place] [address] Bisi Nam 12/28/2023 9:00 AM EDT Office Visit Hematology [place] [address] Bisi Nam documented as of this encounter Visit Diagnoses Not on filedocumented in this encounter Care Teams Parish Worker Relationship Specialty Start Date End Date Molina Herr MD [address] [place] [address] PCP - General 01/27/10 documented as of this encounter
--- OUTSIDE RECORDS SUMMARY | 2023-10-17 15:11 | XMS_ITS | Encounter Summary ---
[place] [address] Care Team Providers Care Longwall Shearer Operator Name Role Phone Molina Herr MD Primary Care Provider [phone] Encounter Details Date Type Department Care Team (Late st Contact Info) Description 05/19/2021 Telephone [place] [phone] Laisha Jennings Social History Tobacco Use Types Packs/Day Years [...] encounter Miscellaneous Notes * Telephone Encounter - Laisha Jennings - 05/19/2021 10:40 AM EDT Perfecto Polk [id number] Diagnosis/Indication: EGD, failure after treatment, peptic ulcer 1. Have you ever had a/an Upper Endoscopy before? No If yes, did you have any problems with the procedure? No What type of sedation was used: None 2. Do you take any blood thinners or have you been diagnosed with a bleeding disorder that increases your risk of bleeding with procedures? No 3. Do you have a Pacemaker or Defibrillator device? No 4. Are you a diabetic? No 5. Do you have any Allergies to Eggs, Latex or Medications? Yes: EDH 6. Do you take any Oral Iron Supplements (Including multi-vitamins)? Yes (Multivitamin) 7. Do you have a history of three or more abdominal surgeries? No 8. Have you had a problem with sedation or anesthesia? No 9. Do you use a c-pap machine or oxygen tank? Neither 10. Do you take prescription narcotic pain medications, including suboxone or methodone? No 11. Do you have a preference regarding the gender of your provider? No Preference 12. Is there any other information you would like to us to note for the provider and nursing team who will perform your case? No 13. Say to patient: You must have a responsible libertarian who will drive you to your procedure, stay oncampus for the entire duration of your procedure, and drive you home from your procedure? *Please Verify the height and weight, and adjust if height and/or weight have changed* Estimated body mass index is 26.58 kg/m?? as calculated from the following: Height as of 02/04/21: 175.3 cm (5' 9). Weight as of 02/04/21: 81.6 kg (180 lb). Age:80 y.o. documented in this encounter Plan of Treatment Upcoming Encounters Date Type Department Care Team (Late st Contact Info) Description 10/27/2023 11:15 AM EDT Office Visit [place] [address] Elly Alston MD [facility] HOSPICE [place] [address] 10/27/2023 1:00 PM EDT Office [place] [address] Debra Franco CIRCULAR SAW EDGE FUSER 11/03/2023 2:00 PM EDT Office [place] [address] Debra Franco, ROLANDO 11/08/2023 2:30 PM EDT Appointment MRI at [place] [address] Navjot Grider MD [facility] DR [place] [address] 11/09/2023 1:45 PM EDT Office Visit Hematology and Oncology at [address] Isabell Jacob MD [facility] [place] [address] 11/11/2023 10:30 AM EDT Office Visit Radiation Oncology at [place] [address] Nicki Sharpe MD [facility] [place] [address] 11/15/2023 10:00 AM EDT Office Visit Speech Therapy at [place] [phone] Debra Franco, CIRCULAR SAW EDGE FUSER 11/16/2023 9:00 AM EDT Office Visit Hematology and Oncology at [place] [phone] Bisi Nam 11/22/2023 10:00 AM EDT Office Visit Speech Therapy at [place] [phone] Debra Franco, CIRCULAR SAW EDGE FUSER 11/30/2023 9:00 AM EDT Office Visit Hematology [place] [address] Bisi Nam 12/14/2023 9:00 AM EDT Office Visit Hematology [place] [address] Bisi Nam 12/28/2023 9:00 AM EDT Office Visit Hematology [place] [address] Bisi Nam documented as of this encounter Visit Diagnoses Not on filedocumented in this encounter Care Teams Longwall Shearer Operator Relationship Specialty Start Date End Date Molina Herr MD [address] [place] [address] PCP - General 01/27/10 documented as of this encounter
--- OUTSIDE RECORDS SUMMARY | 2023-10-17 15:11 | XMS_ITS | Encounter Summary ---
[place] [address] Care Team Providers Care Hvac Tech Name Role Phone Molina Herr MD Primary Care Provider Reason for Referral * Consultation (Routine) - Closed Specialty Diagnoses / Procedures Referred By Contac t Referred To Contact Gastroenterology Diagnoses Peptic ulcer without hemorrhage or perforation EGD, failure after treatment, peptic ulcer Procedures EGD Molina Herr MD [address] [place] [address] [facility] Endoscopy [address] [place] [address] Referral ID Status Reason Start Date Expiration Date V isits Requested Visits Authorized [id number] Closed Test Only 05/15/2021 05/15/2022 1 1 Encounter Details Date Type Department Care Team (Latest Contact Info) Description 05/15/2021 Transcribe Orders eD Incoming Referrals [phone] Molina Herr MD [address] [place] [address] Peptic ulcer without hemorrhage or perforation Social History Tobacco Use Types Packs/Day Years [...] Office Visit Palliative Medicine at [place] [address] Elly Alston MD [facility] HOSPICE [place] [address] 10/27/2023 1:00 PM EDT Office Visit Speech Therapy at [place] [address] Debra Franco, GAMMA FACILITIES OPERATOR 11/03/2023 2:00 PM EDT Office Visit Speech Therapy at [place] [address] Debra Franco, GAMMA FACILITIES OPERATOR 11/08/2023 2:30 PM EDT Appointment MRI at [place] [address] Navjot Grider MD [facility] [place] [address] 11/09/2023 1:45 PM EDT Office Visit Hematology and Oncology at [place] [address] Isabell Jacob MD [facility] [place] [address] 11/11/2023 10:30 AM EDT Office Visit Radiation Oncology at [place] [address] Nicki Sharpe MD [facility] [place] [address] 11/15/2023 10:00 AM EDT Office [place] [address] Debra Franco, GAMMA FACILITIES OPERATOR 11/16/2023 9:00 AM EDT Office Visit Hematology [place] [address] Bisi Nam 11/22/2023 10:00 AM EDT Office [place] [address] Debra Franco GAMMA FACILITIES OPERATOR 11/30/2023 9:00 AM EDT Office Visit Hematology [place] [address] Bisi Nam 12/14/2023 9:00 AM EDT Office Visit Hematology [place] [address] Bisi Nam 12/28/2023 9:00 AM EDT Office Visit Hematology [place] [address] Bisi Nam Scheduled Referrals Name Type Priority Associated Diagnoses Orde r Schedule REFERRAL TO ENDOSCOPY PROCEDURE Outpatient Referral Routine Peptic ulcer without hemorrhage or perforation Ordered: 05/15/2021 documented as of this encounter Visit Diagnoses Diagnosis Peptic ulcer without hemorrhage or perforation Peptic ulcer, unspecified site, unspecified as acute or chronic, without mention of hemorrhage, perforation, or obstruction documented in this encounter Care Teams Hvac Tech Relationship Specialty Start Date End Date Molina Herr MD [address] [place] [address] PCP - General 01/27/10 documented as of this encounter
--- OUTSIDE RECORDS SUMMARY | 2023-10-17 15:11 | XMS_ITS | Encounter Summary ---
Author Organization [place] [address] Care Team Providers Care Poising Inspector Name Role Phone Molina Herr MD Primary Care Provider [phone] Encounter Details Date Type Department Care Team (Latest Contact Info) Description 12/22/2021 11:18 AM EDT - 12/22/2021 11:59 PM EDT [place] [address] Discharge Disposition: Home Social History [...] 20 mg by mouth daily. 4 03/08/2014 [id number] (SOURCE CF) 200-10 mcg-mg Chew Take 1 [...] Office Visit Palliative Medicine at [place] [address] Elly Alston MD [facility] H[facility] AND [place] [address] 10/27/2023 1:00 PM EDT Office Visit Speech Therapy at [place] [address] Debra Franco, C DEVELOPER 11/03/2023 2:00 PM EDT Office Visit Speech Therapy at [place] [address] Debra Franco, C DEVELOPER 11/08/2023 2:30 PM EDT Appointment MRI at [place] [address] Navjot Grider MD [facility] DR HEMATOLOGY [place] [address] 11/09/2023 1:45 PM EDT Office Visit Hematology and Oncology at [address] Isabell Jacob MD [facility] [place] [address] 11/11/2023 10:30 AM EDT Office [place] [address] Nicki Sharpe MD [facility] [place] [address] 11/15/2023 10:00 AM EDT Office [place] [address] Debra Franco, C DEVELOPER 11/16/2023 9:00 AM EDT Office Visit H[place]ology [place] [address] Bisi Nam 11/22/2023 10:00 AM EDT Office [place] [address] Debra Franco, C DEVELOPER 11/30/2023 9:00 AM EDT Office Visit [place] [address] Bisi Nam 12/14/2023 9:00 AM EDT Office Visit [place] [address] Bisi Nam 12/28/2023 9:00 AM EDT Office Visit [place] [address] Bisi Nam documented as of this encounter Procedures Procedure Name Priority Date/Time Associated Diagnosis Comments PSA SCREEN Routine 12/22/2021 8:35 AM EDT HEMOGRAM Routine 12/22/2021 8:35 AM EDT DIFFERENTIAL, AUTOMATED Routine 12/22/2021 8:35 AM EDT GOLD TUBE HOLD Routine 12/22/2021 8:35 AM EDT TSH Routine 12/22/2021 8:35 AM EDT T4, FREE Routine 12/22/2021 8:35 AM EDT HEMOGLOBIN A1C Routine 12/22/2021 8:35 AM EDT LIPID PANEL (REFLEX DIRECT LDL) Routine 12/22/2021 8:35 AM EDT COMPREHENSIVE METABOLIC PANEL Routine 12/22/2021 8:35 AM EDT documented in this encounter Results * Gold Tube HOLD (12/22/2021 8:35 AM EDT) Gold Hold Sample in lab. [facility] Blood No Charge / Unknown 12/22/2021 8:35 AM EDT 12/22/2021 1:41 PM EDT Molina Herr MD CHEMISTRY ORDERABLES Performing Organization Address [facility] Co de Phone Number [facility] [place] [address] * PSA Screen (12/22/2021 8:35 AM EDT) PSA Screen 1.15 0.00 - 4.00 ng/mL [facility] Comment: PLEASE NOTE: The above reference interval is intended for healthy males with an intact prostate. Values within this reference interval may indicate recurrence in men who have undergone radical prostatectomy. This result was generated using a Elizabet Dilcia immunoassay. ??Results obtained from other methods or manufacturers cannot be used interchangeably with this method. Blood Venous Draw / Unknown 12/22/2021 8:35 AM EDT 12/22/2021 1:34 PM EDT Narrative Resulting Agency Comment Spec In Lab Molina Herr MD CHEMISTRY ORDERABLES Performing Organization Address City/[facility]/ZIP Co de Phone Number [facility] [place] [address] * TSH (12/22/2021 8:35 AM EDT) Thyroid Stimulating Hormone 3.32 0.27 - 4.20 mcIU/mL [facility] Comment: Reference Interval (mcIU/mL): Females: ??First Trimester: 0.23-3.88 ??Second Trimester: 0.22-3.90 ??Third Trimester: 0.44-4.66 Blood Venous Draw / Unknown 12/22/2021 8:35 AM EDT 12/22/2021 1:34 PM EDT Narrative Resulting Agency Comment Spec In Lab Molina Herr MD CHEMISTRY ORDERABLES Performing Organization Address [facility] Co de Phone Number [facility] [place] [address] * T4, free (12/22/2021 8:35 AM EDT) Pathologist [facility] Free T4 1.26 0.93 - 1.70 ng/dL [facility] Comment: Reference Interval (ng/dL): Females: ??First Trimester: 0.97-1.68 ??Second Trimester: 0.77-1.51 ??Third Trimester: 0.77-1.49 Blood Venous Draw / Unknown 12/22/2021 8:35 AM EDT 12/22/2021 1:34 PM EDT Narrative Resulting Agency Comment Spec In Lab Molina Herr MD CHEMISTRY ORDERABLES Performing Organization Address [facility] Co de Phone Number [facility] [place] [address] * Hemoglobin A1c (12/22/2021 8:35 AM EDT) Pathologist [facility] Hemoglobin A1c 5.3 4.3 - 5.6 % [facility] Comment: Reference Range: 4.3 - 5.6% [...] Mellitus, Diabetes Care 2013; 36: Suppl. 1, R62-11 Estimated Average Glucose See note mg/dL [facility] Comment: Estimated Average Glucose not appropriate for patients over 70 years of age. eAG equivalents for HbA1c percentages: HbA1c(%) ?eAG(mg/dL) 6.0 ?126 6.5 ?140 7.0 ?154 7.5 ?169 8.0 ?183 8.5 ?197 9.0 ?212 9.5 ?226 10.0 ? 240 Limitations: The eAG calculation has not been validated on women, individuals below 18 years old and above 70 years old, and individuals with hemoglobinopathies. Additional resources are available on the ADA website. Rolly VARGHESE, Isha J, Campbell R, et al. ??Translating the A1C assay into estimated average glucose values. ??Diabetes Care 2008:31(8):7085-0610. Blood Venous Draw / Unknown 12/22/2021 8:35 AM EDT 12/22/2021 1:37 PM EDT Narrative Resulting Agency Comment Spec In Lab Molina Herr MD CHEMISTRY ORDERABLES [facility] [place] [address] * Differential, Automated (12/22/2021 8:35 AM EDT) Neutrophil % 60.6 % [facility] Neutrophil Absolute 3.41 1.70 - 6.10 x10(3)/[facility] Lymph % 25.8 % [facility] Lymphocytes Abs 1.4 0.9 - 3.2 x10(3)/[facility] Monocyte % 9.3 % [facility] Monocyte Abs 0.5 0.3 - 0.9 x10(3)/[facility] Eos % 3.2 % [facility] Eosinophils Abs 0.2 0.0 - 0.4 x10(3)/[facility] Basophil % 0.9 % [facility] Baso Absolute 0.0 0.0 - 0.1 x10(3)/[facility] Immature Gran % 0.20 % [facility] Comment: Immature granulocytes(IG's)percentage and absolute count will include metamyelocytes, myelocytes, and promyelocytes. Blood smears from CBCs yielding IG's will be scanned manually for concordance. If this scan disagrees with the automated IG or if promyelocytes are noted, a manual differential will be performed. Immature Gran Absolute 0.01 0.00 - 0.04 x10(3)/[facility] Blood Venous Draw / Unknown 12/22/2021 8:35 AM EDT 12/22/2021 1:36 PM EDT Narrative Resulting Agency Comment Spec In Lab Molina Herr MD HEMATOLOGY ORDERABLE S [facility] [place] [address] * (ABNORMAL) Hemogram (12/22/2021 8:35 AM EDT) White Blood Cell 5.6 4.0 - 9.5 x10(3)/ L [facility] Red Blood Cell 4.56(L) 4.58 - 5.54 x10(6)/ L [facility] Hemoglobin 13.0(L) 13.7 - 16.5 g/dL [facility] Hematocrit 40.8 40.5 - 48.5 % [facility] Mean Cell Volume 89.5 82.9 - 93.1 fL [facility] Mean Cell Hemoglobin 28.5 27.5 - 32.1 pg [facility] Mean Cell Hemoglobin Concentration 31.9(L) 32.0 - 35.7 g/dL [facility] Platelet 266 145 - 357 x10(3)/mc L [facility] RDW Standard Deviation 46.8(H) 36.0 - 45.0 fL [facility] RDW coefficient of variation 14.2(H) 11.4 - 13.8 % [facility] Mean Platelet Volume 10.0 7.6 - 12.9 [facility] NRBC% auto 0.0 % [facility] NRBC Absolute 0.000 0.000 - 0.000 x10(3)/mc L [facility] Blood Venous Draw / Unknown 12/22/2021 8:35 AM EDT 12/22/2021 1:36 PM EDT Narrative Resulting Agency Comment Spec In Lab Molina Herr MD HEMATOLOGY ORDERABLE S [facility] [place] [address] * Lipid Panel (Reflex Direct LDL) (12/22/2021 8:35 AM EDT) Cholesterol, Total 177 mg/dL [facility] Comment: Lower Risk: <200 mg/dL Average Risk: 200-239 mg/dL Higher Risk: >qg=965 mg/dL Triglyceride 78 mg/dL [facility] Comment: Average Risk/Lower Risk: <150 mg/dL Borderline High Risk: 150-199 mg/dL High Risk: 200-499 mg/dL Very High Risk: >ft=210 mg/dL HDL Cholesterol 47 mg/dL [facility] Comment: Males: ?? Higher Risk: <40 mg/dL Females: ?? Higher Risk: <50 mg/dL LDL Cholesterol 114 mg/dL [facility] Comment: Lowest Risk: <100 mg/dL Lower Risk: 100-129 mg/dL Borderline High Risk: 130-159 mg/dL High Risk: 160-189 mg/dL Very High Risk: >gl=584 mg/dL Cholesterol/HDL Ratio 3.8 ratio [facility] Lipid Interpretation See Note [facility] Comment: Lipid management should be guided by a patient? s ASCVD risk, goals and preferences. ACC/AHA Guidelines recommend high intensity statin if clinical ASCVD or LDL greater than or equal to 190 mg/dL. http://GeeYee.com/QFH-BJO-Slbpgzgok Adults aged 40-75 with LDL 70-189 mg/dL should have their 10 year ASCVD risk estimated with the ACC/AHA ASCVD risk paperboard boxes estimator http://tools.acc.org/HWTNT-Oruh-Bgivpulcy/ Statin should be discussed if risk greater [...] risk reduction. Blood Venous Draw / Unknown 12/22/2021 8:35 AM EDT 12/22/2021 1:34 PM EDT Narrative Resulting Agency Comment Spec In Lab Molina Herr MD CHEMISTRY ORDERABLES [facility] [place] [address] * (ABNORMAL) Comprehensive metabolic panel (non-fasting) (12/22/2021 8:35 AM EDT) Glucose 93 65 - 199 mg/dL [facility] Comment:Diabetes: >=200 mg/d L plus symptoms Blood Urea Nitrogen 25(H) 10 - 20 mg/dL [facility] Creatinine 1.18 0.80 - 1.50 mg/dL [facility] Sodium 142 135 - 145 mmol/L [facility] Potassium 4.5 3.5 - 5.0 mmol/L [facility] Comment: Please note: ??Patients with WBC >100,000 may have falsely elevated Potassium levels. ??For accurate Potassium quantification in these patients send serum separator tube (gold top) for subsequent determinations. ??Contact the Clinical Chemistry Laboratory if there are any questions. Chloride 106 98 - 107 mmol/L [facility] Carbon Dioxide 24 22 - 31 mmol/L [facility] Anion Gap 12 5 - 15 mmol/L [facility] Calcium 9.1 8.5 - 10.5 mg/dL [facility] Protein, Total 6.8 6.1 - 8.0 g/dL [facility] Albumin 3.8 3.2 - 5.2 g/dL [facility] Aspartate Aminotransferase 15 0 - 39 unit/L [facility] Alanine Aminotransferase 10 0 - 55 unit/L [facility] Alkaline Phosphatase 55 40 - 130 unit/L [facility] Bilirubin, Total 0.5 0.2 - 1.3 mg/dL [facility] Est Glomerular Filtration Rate 63 >=60 mL/min/1. 73 m?? [facility] Comment: This patient's estimated GFR [...] to eGFR. Blood Venous Draw / Unknown 12/22/2021 8:35 AM EDT 12/22/2021 1:34 PM EDT Narrative Resulting Agency Comment Spec In Lab Molina Herr MD CHEMISTRY ORDERABLES [facility] [place] [address] documented in this encounter Visit Diagnoses Not on filedocumented in this encounter Care Teams Poising Inspector Relationship Specialty Start Date End Date Molnia Herr MD [facility] [address] [place] [address] PCP - General 01/27/10 documented as of this encounter
--- OUTSIDE RECORDS SUMMARY | 2023-10-17 15:11 | XMS_ITS | Encounter Summary ---
Author Organization [facility] [place] [address] Care Team Providers Care Retail Client Manager Name Role Phone Molina Herr MD Primary Care Provider [phone] Encounter Details Date Type Department Care Team (Latest Contact Info) Description 12/19/2020 11:25 AM EDT - 12/19/2020 11:59 PM EDT [place] [address] Discharge Disposition: Home Social History [...] 20 mg by mouth daily. 4 03/08/2014 [id number] (SOURCE CF) 200-10 mcg-mg Chew Take 1 [...] Take 1,000 Units by mouth daily. 07/28/2023 [place]-3 Fatty Acids-Vitamin E (FISH OIL) 1,000 mg Capsule Take 2,000 mg by mouth daily. 02/04/2021 aspirin 81 mg EC tablet Take 81 mg by mouth daily. 07/05/2023 documented as of this encounter Plan of Treatment Upcoming Encounters Date Type Department Care Team (Late st Contact Info) Description 10/27/2023 11:15 AM EDT Office Visit Palliative Medicine at [place] [phone] Elly Alston MD [facility] HOSPICE AND [place] [address] 10/27/2023 1:00 PM EDT Office Visit Speech Therapy at [place] [phone] Debra Franco, FIRE PREVENTION RESEARCH ENGINEER 11/03/2023 2:00 PM EDT Office Visit Speech Therapy at [place] [phone] Debra Franco, FIRE PREVENTION RESEARCH ENGINEER 11/08/2023 2:30 PM EDT Appointment MRI at [place] [phone] Navjot Grider MD [facility] HEMATOLOGY [place] [address] 11/09/2023 1:45 PM EDT Office Visit Hematology and Oncology at [address] Isabell Jacob MD [facility] [place] [address] 11/11/2023 10:30 AM EDT Office Visit [place] [address] Nicki Sharpe MD [facility] [place] [address] 11/15/2023 10:00 AM EDT Office [place] [address] Debra Franco, FIRE PREVENTION RESEARCH ENGINEER 11/16/2023 9:00 AM EDT Office Visit Hematology [place] [address] Bisi Nam 11/22/2023 10:00 AM EDT Office [place] [address] Debra Franco, FIRE PREVENTION RESEARCH ENGINEER 11/30/2023 9:00 AM EDT Office Visit Hematology [place] [address] Bisi Nam 12/14/2023 9:00 AM EDT Office Visit Hematology [place] [address] Bisi Nam 12/28/2023 9:00 AM EDT Office Visit Hematology [place] [address] Bisi Nam documented as of this encounter Procedures Procedure Name Priority Date/Time Associated Diagnosis Comments TSH CASCADE Routine 12/19/2020 8:37 AM EDT HEMOGRAM Routine 12/19/2020 8:37 AM EDT DIFFERENTIAL, AUTOMATED Routine 12/19/2020 8:37 AM EDT VITAMIN D, 25-HYDROXY Routine 12/19/2020 8:37 AM EDT PSA (ULTRASENSITIVE) Routine 12/19/2020 8:37 AM EDT LDL CHOLESTEROL, DIRECT Routine 12/19/2020 8:37 AM EDT HEMOGLOBIN A1C Routine 12/19/2020 8:37 AM EDT LIPID PANEL (REFLEX DIRECT LDL) Routine 12/19/2020 8:37 AM EDT COMPREHENSIVE METABOLIC PANEL Routine 12/19/2020 8:37 AM EDT documented in this encounter Results * PSA (Ultrasensitive) (12/19/2020 8:37 AM EDT) Prostate Specific Antigen (Ultrasensitive ) 1.16 0.00 - 4.00 ng/mL [facility] Comment: PLEASE NOTE: The above reference interval is intended for healthy males with an intact prostate. Values within this reference interval may indicate recurrence in men who have undergone radical prostatectomy. Blood Venous Draw / Unknown 12/19/2020 8:37 AM EDT 12/19/2020 12:24 PM EDT Narrative Resulting Agency Comment Spec In Lab Molina Herr MD CHEMISTRY ORDERABLES [facility] [place] [address] * TSH [place] (12/19/2020 8:37 AM EDT) Thyroid Stimulating Hormone 3.63 0.27 - 4.20 mcIU/mL [facility] Comment: Reference Interval (mcIU/mL): Females: ??First Trimester: 0.23-3.88 ??Second Trimester: 0.22-3.90 ??Third Trimester: 0.44-4.66 Blood Venous Draw / Unknown 12/19/2020 8:37 AM EDT 12/19/2020 12:28 PM EDT Narrative Resulting Agency Comment Spec In Lab Molina Herr MD CHEMISTRY ORDERABLES [facility] [place] [address] * Hemoglobin A1c (12/19/2020 8:37 AM EDT) Hemoglobin A1c 5.5 4.3 - 5.6 % [facility] Comment: Reference Range: 4.3 - [...] Mellitus, Diabetes Care 2013; 36: Suppl. 1, T67-02 Estimated Average Glucose See note mg/dL [facility] Comment: Estimated Average Glucose not [...] into estimated average glucose values. ??Diabetes Care 2008:31(8):0021-4870. Blood Venous Draw / Unknown 12/19/2020 8:37 AM EDT 12/19/2020 12:29 PM EDT Narrative Resulting Agency Comment Spec In Lab Molina Herr MD CHEMISTRY ORDERABLES [facility] [place] [address] * Differential, Automated (12/19/2020 8:37 AM EDT) Neutrophil % 57.0 % [facility] Neutrophil Absolute 2.93 1.70 - 6.10 x10(3)/[facility] Lymph % 28.7 % [facility] Lymphocytes Abs 1.5 0.9 - 3.2 x10(3)/[facility] Monocyte % 9.2 % [facility] Monocyte Abs 0.5 0.3 - 0.9 x10(3)/[facility] Eos % 4.1 % [facility] Eosinophils Abs 0.2 0.0 - 0.4 x10(3)/[facility] Basophil % 0.8 % [facility] Baso Absolute 0.0 0.0 - 0.1 x10(3)/[facility] Immature Gran % 0.20 % [facility] Comment: Immature granulocytes(IG's)percentage and absolute count will include metamyelocytes, myelocytes, and promyelocytes. Blood smears from CBCs yielding IG's will be scanned manually for concordance. If this scan disagrees with the automated IG or if promyelocytes are noted, a manual differential will be performed. Immature Gran Absolute 0.01 0.00 - 0.04 x10(3)/[facility] Blood Venous Draw / Unknown 12/19/2020 8:37 AM EDT 12/19/2020 12:28 PM EDT Narrative Resulting Agency Comment Spec In Lab Molina Herr MD HEMATOLOGY ORDERABLE S [facility] [place] [address] * (ABNORMAL) Hemogram (12/19/2020 8:37 AM EDT) White Blood Cell 5.1 4.0 - 9.5 x10(3)/ L [facility] Red Blood Cell 4.67 4.58 - 5.54 x10(6)/[facility] Hemoglobin 13.4(L) 13.7 - 16.5 g/dL [facility] Hematocrit 42.4 40.5 - 48.5 % [facility] Mean Cell Volume 90.8 82.9 - 93.1 fL [facility] Mean Cell Hemoglobin 28.7 27.5 - 32.1 pg [facility] Mean Cell Hemoglobin Concentration 31.6(L) 32.0 - 35.7 g/dL [facility] Platelet 264 145 - 357 x10(3)/[facility] RDW Standard Deviation 45.0 36.0 - 45.0 [facility] RDW coefficient of variation 13.3 11.4 - 13.8 % [facility] Mean Platelet Volume 9.9 7.6 - 12.9 [facility] NRBC% auto 0.0 % [facility] NRBC Absolute 0.000 0.000 - 0.000 x10(3)/[facility] Blood Venous Draw / Unknown 12/19/2020 8:37 AM EDT 12/19/2020 12:28 PM EDT Narrative Resulting Agency Comment Spec In Lab Molina Herr MD HEMATOLOGY ORDERABLE S [facility] [place] [address] * Vitamin D, 25-Hydroxy (12/19/2020 8:37 AM EDT) Vitamin D Total 25 OH 73 21 - 100 ng/mL [facility] Vit D Interp Sufficient [facility] Blood Venous Draw / Unknown 12/19/2020 8:37 AM EDT 12/19/2020 12:28 PM EDT Narrative Resulting Agency Comment Spec In Lab Molina Herr MD CHEMISTRY ORDERABLES [facility] [place] [address] * LDL Cholesterol, Direct (12/19/2020 8:37 AM EDT) LDL Cholesterol, Direct 98 mg/dL [facility] Comment: Lowest Risk: <100 mg/dL Lower Risk: 100-129 mg/dL Borderline High Risk: 130-159 mg/dL High Risk: 160-189 mg/dL Very High Risk: >bv=130 mg/dL Blood Venous Draw / Unknown 12/19/2020 8:37 AM EDT 12/19/2020 12:24 PM EDT Narrative Resulting Agency Comment Spec In Lab Molina Herr MD CHEMISTRY ORDERABLES [facility] [place] [address] * Lipid Panel (Reflex Direct LDL) (12/19/2020 8:37 AM EDT) Cholesterol, Total 165 mg/dL [facility] Comment: Lower Risk: <200 mg/dL Average Risk: 200-239 mg/dL Higher Risk: >ff=583 mg/dL Triglyceride 90 mg/dL [facility] Comment: Average Risk/Lower Risk: <150 mg/dL Borderline High Risk: 150-199 mg/dL High Risk: 200-499 mg/dL Very High Risk: >mp=341 mg/dL HDL Cholesterol 46 mg/dL [facility] Comment: Males: ?? Higher Risk: <40 mg/dL Females: ?? Higher Risk: <50 mg/dL LDL Cholesterol 101 mg/dL [facility] Comment: Lowest Risk: <100 mg/dL Lower Risk: 100-129 mg/dL Borderline High Risk: 130-159 mg/dL High Risk: 160-189 mg/dL Very High Risk: >hv=896 mg/dL Cholesterol/HDL Ratio 3.6 ratio [facility] Lipid Interpretation See Note [facility] Comment: Lipid management should be guided by a patient? s ASCVD risk, goals and preferences. ACC/AHA Guidelines recommend high intensity statin if clinical ASCVD or LDL greater than or equal to 190 mg/dL. http://TextHub.HyperBees/NPQ-MNO-Qrvldbjet Adults aged 40-75 with LDL 70-189 mg/dL should have their 10 year ASCVD risk estimated with the ACC/AHA ASCVD risk paperboard boxes estimator http://tools.acc.org/TYCBQ-Gxtm-Owhdyocbx/ Statin should be discussed if risk greater [...] risk reduction. Blood Venous Draw / Unknown 12/19/2020 8:37 AM EDT 12/19/2020 12:24 PM EDT Narrative Resulting Agency Comment Spec In Lab Molina Herr MD CHEMISTRY ORDERABLES [facility] [place] [address] * Comprehensive metabolic panel (non-fasting) (12/19/2020 8:37 AM EDT) Glucose 96 65 - 199 mg/dL [facility] Comment:Diabetes: >=200 mg/d L plus symptoms Blood Urea Nitrogen 19 10 - 20 mg/dL [facility] Creatinine 1.16 0.80 - 1.50 mg/dL [facility] Sodium 138 135 - 145 mmol/L [facility] Potassium 4.3 3.5 - 5.0 mmol/L [facility] Comment: Please note: ??Patients with WBC >100,000 may have falsely elevated Potassium levels. ??For accurate Potassium quantification in these patients send serum separator tube (gold top) for subsequent determinations. ??Contact the Clinical Chemistry Laboratory if there are any questions. Chloride 105 98 - 107 mmol/L [facility] Carbon Dioxide 25 22 - 31 mmol/L [facility] Anion Gap 8 5 - 15 mmol/L [facility] Calcium 9.0 8.5 - 10.5 mg/dL [facility] Protein, Total 7.0 6.1 - 8.0 g/dL [facility] Albumin 4.0 3.2 - 5.2 g/dL [facility] Aspartate Aminotransferase 17 0 - 39 unit/L [facility] Alanine Aminotransferase 15 0 - 55 unit/L [facility] Alkaline Phosphatase 53 40 - 130 unit/L [facility] Bilirubin, Total 0.3 0.2 - 1.3 mg/dL [facility] Est Glomerular Filtration Rate 60 >=60 mL/min/1. 73 m?? [facility] Comment: This patient? s estimated glomerular filtration rate (eGFR) is between 60 mL/min/1.73 m2 (patients with less muscle mass per kg body weight) and 70 mL/min/1.73 m2 (patients with more muscle mass per kg body weight) as determined by the CKD-EPI equation. Assessment of eGFR is not appropriate when creatinine concentrations are rapidly changing. For clinical decisions where creatinine clearance will affect therapy, a 24-hour urine creatinine clearance may be advised. Assignment of CKD stage 1 - 5 for patients with an eGFR near the transition point between stages may be based on clinical assessment of muscle mass and symptoms in addition to eGFR. Blood Venous Draw / Unknown 12/19/2020 8:37 AM EDT 12/19/2020 12:24 PM EDT Narrative Resulting Agency Comment Spec In Lab Molina Herr MD CHEMISTRY ORDERABLES [facility] [place] [address] documented in this encounter Visit Diagnoses Not on filedocumented in this encounter Care Teams Retail Client Manager Relationship Specialty Start Date End Date Molina Herr MD [facility] [address] [place] [address] PCP - General 01/27/10 documented as of this encounter
--- OUTSIDE RECORDS SUMMARY | 2023-10-17 15:11 | XMS_ITS | Encounter Summary ---
[place] [address] Care Team Providers Care Drafter Refrigeration Name Role Phone Molina Herr MD Primary Care Provider [phone] Encounter Details Date Type Department Care Team (Late st Contact Info) Description 06/23/2021 Telephone Audiology at [address] [phone] Saray Valenzuela Social History Tobacco Use Types [...] * Telephone Encounter - Saray Valenzuela - 06/23/2021 10:25 AM EDT I called to schedule his follow up Please contact to schedule hac in 2-[address] vargas. I left a vm to call back to schedule documented in this encounter Plan of Treatment Upcoming Encounters Date Type Department Care Team (Late st Contact Info) Description 10/27/2023 11:15 AM EDT Office Visit Palliative Medicine at [place] [address] Elly Alston MD [facility] DR HOSPICE AND P[place]IAT[place] [address] 10/27/2023 1:00 PM EDT Office Visit Speech Therapy at [place] [address] Debra Franco, ASSISTANT PROFESSOR OF RADIOLOGY 11/03/2023 2:00 PM EDT Office Visit Speech Therapy at [place] [address] Debra Franco, ASSISTANT PROFESSOR OF RADIOLOGY 11/08/2023 2:30 PM EDT Appointment MRI at [place] [address] Navjot Grider MD [facility] DR HEMATOLOGY [place] [address] 11/09/2023 1:45 PM EDT Office Visit Hematology and Oncology at [place] [address] Isabell Jacob MD [facility] [place] [address] 11/11/2023 10:30 AM EDT Office Visit Radiation Oncology at [place] [address] Nicki Sharpe MD [facility] [place] [address] 11/15/2023 10:00 AM EDT Office Visit Speech Therapy at [address] Debra Franco, ASSISTANT PROFESSOR OF RADIOLOGY 11/16/2023 9:00 AM EDT Office Visit Hematology and Oncology at [place] [address] Bisi Nam 11/22/2023 10:00 AM EDT Office [place] [address] Debra Franco, ASSISTANT PROFESSOR OF RADIOLOGY 11/30/2023 9:00 AM EDT Office Visit Hematology [place] [address] Bisi Nam 12/14/2023 9:00 AM EDT Office Visit Hematology [place] [address] Bisi Nam 12/28/2023 9:00 AM EDT Office Visit Hematology [place] [address] Bisi Nam documented as of this encounter Visit Diagnoses Not on filedocumented in this encounter Care Teams Drafter Refrigeration Relationship Specialty Start Date End Date Molina Herr MD [facility] [address] [place] [address] PCP - General 01/27/10 documented as of this encounter
--- OUTSIDE RECORDS SUMMARY | 2023-10-17 15:11 | XMS_ITS | Encounter Summary ---
[place] [address] Care Team Providers Care Machine Design Teacher Name Role Phone Molina Herr MD Primary Care Provider [phone] Encounter Details Date Type Department Care Team (Late st Contact Info) Description 07/24/2021 Telephone Audiology at [address] [phone] Saray Valenzuela Social History Tobacco Use Types [...] * Telephone Encounter - Saray Valenzuela - 07/24/2021 8:18 AM EDT I called today to let him know his provider is out on 07/27/21 so I have canceled that appointment [facility]- Hafsa I have rescheduled it for 08/10/21 at 4:45, I left a vm to call back to confirm documented in this encounter Plan of Treatment Upcoming Encounters Date Type Department Care Team (Late st Contact Info) Description 10/27/2023 11:15 AM EDT Office Visit Palliative Medicine at [place] [address] Elly Alston MD [facility] [address] HOSPICE [place] [address] 10/27/2023 1:00 PM EDT Office Visit Speech Therapy at [place] [address] Debra Franco, SENIOR GEOLOGIST 11/03/2023 2:00 PM EDT Office Visit Speech Therapy at [place] [address] Debra Franco, SENIOR GEOLOGIST 11/08/2023 2:30 PM EDT Appointment MRI at [place] [address] Navjot Grider MD [facility] DR [place] [address] 11/09/2023 1:45 PM EDT Office Visit Hematology and Oncology at [place] [address] Isabell Jacob MD [facility] [place] [address] 11/11/2023 10:30 AM EDT Office Visit Radiation Oncology at [place] [address] Nicki Sharpe MD [facility] [place] [address] 11/15/2023 10:00 AM EDT Office Visit Speech Therapy at [place] [address] Debra Franco, SENIOR GEOLOGIST 11/16/2023 9:00 AM EDT Office Visit Hematology [place] [address] Bisi Nam 11/22/2023 10:00 AM EDT Office [place] [address] Debra Franco, SENIOR GEOLOGIST 11/30/2023 9:00 AM EDT Office Visit Hematology [place] [address] Bisi Nam 12/14/2023 9:00 AM EDT Office Visit H[place]ology [place] [address] Bisi Nam 12/28/2023 9:00 AM EDT Office Visit [place]ematology [place] [address] Bisi Nam documented as of this encounter Visit Diagnoses Not on filedocumented in this encounter Care Teams Machine Design Teacher Relationship Specialty Start Date End Date Molina Herr MD [facility] [address] [place] [address] PCP - General 01/27/10 documented as of this encounter
--- OUTSIDE RECORDS SUMMARY | 2023-10-17 15:11 | XMS_ITS | Encounter Summary ---
[place] [address] Care Team Providers Care Rehabilitation Worker Name Role Phone Molina Herr MD Primary Care Provider [phone] Encounter Details Date Type Department Care Team (Latest Contact Info) Description 06/22/2021 2:30 PM EDT Office Visit Audiology at [address] [address] [facility] [place] [address] Asymmetrical sensorineural hearing loss Social History Tobacco [...] as of this encounter Progress Notes * Hafsa Osullivan AUD - 06/22/2021 2:30 PM EDT AUDIOLOGY Perfecto Polk was seen today for a hearing aid check following a hearing re- evaluation on 06/09/2021. Please refer to the audiogram and associated note for details on otologic symptoms and hearing test results. History is positive for asymmetric sensorineural hearing loss. Mr. Polk reported that he experienced loudness discomfort, primarily with the left hearing aid in. Also, the hearing aids will periodically re-start. Understanding speech in the presence of background noise is extremely difficult. He recently attended a reception centre manager following a and had a lot of difficulty following the speech. A dome was removed from the right ear canal by [employer], prior to this appointm ent. The following actions were taken: ?? Otoscopy showed clear ear canals bilaterally. ?? A listening check indicated that the hearing aids were functioning. Domes and wax filters were replaced (Note: changed the domes from 8 mm double doss mini fit domes). ?? Verification of fit was completed via wwfg-[id number]-prasuign (REM) using the DSL- Adult prescriptive fitting method. Hearing aid programming was adjusted so that the aided responses nicely approximated targets for speech without exceeding MPO targets. Mr. Polk was subjectively satisfied with the sound quality of the aids, and loudness discomfort was denied. ?? Simulated real ear measures were obtained and function of the directional microphones was verified. ?? Extra domes and wax guards were provided. RECOMMENDATIONS: Return to clinic in 2-4 weeks for hearing aid check. Please do not hesitate to contact this Section at [phone] if there are questions regarding this report or its recommendations. Kandice Ross Clinical Director [place] [address] ; HEARING AID(S): HEARING AID RIGHT LEFT Make/Model/Style Oticon Opn 3 miniRITE Oticon Opn 3 miniRITE Casing Color 92 (ann) 92 (ann) Serial Number [id number] (new-replacement) [id number] (old) Battery Size 312 312 Invoice number / date [id number] ??10/27/16 [id number] ??10/27/16 PROGRAM/SETTINGS ? Fitting Algorithm DSL 5a DSL 5a Verification Method REM, RECD REM, RECD Programs Normal Speech in noise Music Comfort Normal Speech in noise Music Comfort Disabled Features ? Other ? HEARING AID WARRANTY ? Original Fit Date 11/11/16 11/11/16 Current Status 11/28/19 11/28/19 (repair only) EARMOLD (if BTE POLLARD) ? Lab ? 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 Invoice # ? ACCESSORIES ? Make/Model ? Color ? Serial Number ?Warranty date ? Invoice number/date ? documented in this encounter Plan of Treatment Upcoming Encounters Date Type Department Care Team (Late st Contact Info) Description 10/27/2023 11:15 AM EDT Office Visit Palliative Medicine at [address] [facility] [address] HOSPICE AND [place] [address] 10/27/2023 1:00 PM EDT Office [place] [address] Debra Franco, BUTT WELDER 11/03/2023 2:00 PM EDT Office [place] [address] Debra Franco, BUTT WELDER 11/08/2023 2:30 [place] [address] [facility] DR HEMATOLOGY [place] [address] 11/09/2023 1:45 PM EDT Office Visit Hematology and Oncology at [place] [address] [facility] [place] [address] 11/11/2023 10:30 AM EDT Office Visit Radiation Oncology at [address] [facility] [place] [address] 11/15/2023 10:00 AM EDT Office Visit Speech Therapy at [place] [phone] Debra Franco, BUTT WELDER 11/16/2023 9:00 AM EDT Office Visit Hematology [place] [address] Bisi Nam 11/22/2023 10:00 AM EDT Office Visit Speech Therapy at [place] [phone] Debra Franco, BUTT WELDER 11/30/2023 9:00 AM EDT Office Visit Hematology [place] [address] Bisi Nam 12/14/2023 9:00 AM EDT Office Visit Hematology [place] [address] Bisi Nam 12/28/2023 9:00 AM EDT Office Visit Hematology [place] [address] Bisi Nam documented as of this encounter Visit Diagnoses Diagnosis Asymmetrical sensorineural hearing loss Sensorineural hearing loss, asymmetrical documented in this encounter Care Teams Rehabilitation Worker Relationship Specialty Start Date End Date Molina Herr MD [facility] [address] [place] [address] PCP - General 01/27/10 documented as of this encounter
--- OUTSIDE RECORDS SUMMARY | 2023-10-17 15:11 | XMS_ITS | Encounter Summary ---
Author Organization [facility] [place] [address] Care Team Providers Care Motor Polarizer Name Role Phone Molina Herr MD Primary Care Provider [phone] Encounter Details Date Type Department Care Team (Late st Contact Info) Description 10/14/2022 [place] [address] Morris Heck PA [facility] [place] [address] Social History Tobacco Use Types Packs/Day Years [...] encounter Miscellaneous Notes * Telephone Encounter - Morris Heck PA - 10/14/2022 8:56 AM EDT I spoke with the patient over the phone. He is now wearing his boot without discomfort throughout the day. He refuses to wear it in bed and removes it in the shower. I would like to reevaluate the patient in clinic sooner than his next appointment and repeat functional evaluation. I will reach out to the schedulers. documented in this encounter Plan of Treatment Upcoming Encounters Date Type Department Care Team (Late st Contact Info) Description 10/27/2023 11:15 AM EDT Office Visit Palliative Medicine at [place] [address] Elly Alston MD [facility] HOSPICE [place] [address] 10/27/2023 1:00 PM EDT Office Visit Speech Therapy at [place] [address] Debra Franco, ELECTRONICS ENGINEERING TECHNICIAN 11/03/2023 2:00 PM EDT Office Visit Speech Therapy at [place] [address] Debra Franoc, ELECTRONICS ENGINEERING TECHNICIAN 11/08/2023 2:30 PM EDT Appointment MRI at [place] [address] Navjot Grider MD [facility] [place] [address] 11/09/2023 1:45 PM EDT Office Visit Hematology and Oncology at [place] [address] Isabell Jacob MD [facility] [place] [address] 11/11/2023 10:30 AM EDT Office Visit Radiation Oncology at [address] Nicki Sharpe MD [facility] [place] [address] 11/15/2023 10:00 AM EDT Office [place] [address] Debra Franco, ELECTRONICS ENGINEERING TECHNICIAN 11/16/2023 9:00 AM EDT Office Visit H[place]ology [place] [address] Bisi Nam 11/22/2023 10:00 AM EDT Office [place] [address] Debra Franco ELECTRONICS ENGINEERING TECHNICIAN 11/30/2023 9:00 AM EDT Office Visit H[place]ology [place] [address] Bisi Nam 12/14/2023 9:00 AM EDT Office Visit [place]ology [place] [address] Bisi Nam 12/28/2023 9:00 AM EDT Office Visit [place] [address] Bisi Nam documented as of this encounter Visit Diagnoses Not on filedocumented in this encounter Care Teams Motor Polarizer Relationship Specialty Start Date End Date Molina Herr MD [address] [place] [address] PCP - General 01/27/10 documented as of this encounter
--- OUTSIDE RECORDS SUMMARY | 2023-10-17 15:11 | XMS_ITS | Encounter Summary ---
Author Organization [facility] [place] [address] Care Team Providers Care Log Handler Name Role Phone Molina Herr MD Primary Care Provider [phone] Encounter Details Date Type Department Care Team (Late st Contact Info) Description 06/11/2021 11:30 AM EDT - 06/11/2021 12:00 PM EDT Surgery [place] [phone] Guerda Coombs MD [facility] [place] [address] EGD, UPPER GI ENDOSCOPY (WRVU 2.09) Social History Tobacco Use Types Packs/Day Years [...] Sign Reading Time Taken Comments Blood Pressure 136/56 06/11/2021 12:00 PM EDT Pulse 64 06/11/2021 12:00 PM EDT Temperature 36.4 ??C (97.6 ??F) 06/11/2021 10:57 AM E DT Respiratory Rate 14 06/11/2021 12:00 PM EDT Oxygen Saturation 100% 06/11/2021 12:00 PM EDT Inhaled Oxygen Concentration - - Weight 81.6 kg (180 lb) 06/11/2021 10:57 AM EDT Height 175.3 cm (5' 9) 06/11/2021 10:57 AM EDT Body Mass Index 26.58 06/11/2021 10:57 AM EDT documented in this encounter Discharge Instructions * Attachments The following attachments cannot be sent through Care Everywhere. * EGD (Upper Endoscopy): Post-op (Latvian) documented in this encounter Medications at Time of Discharge Medication Sig Dispensed Refills Start Date End Date omeprazole (PRILOSEC) 20 mg Capsule, Delayed Release(E.C.) Take 20 mg by mouth daily. 4 03/08/2014 [id number] (SOURCE CF) 200-10 mcg-mg Chew Take 1 [...] daily. 07/05/2023 documented as of this encounter H&P Notes * Guerda Coombs MD - 06/11/2021 11:40 AM EDT Gastroenterology and Hepatology Pre-Procedure History and Physical Exam Procedure: EGD: Indication: upper abdominal pain since mid Apr, worse with eating, better with TUMS pepto bismol Long standing GERD, well controlled on omeprazole Timing of omeprazole changed around he same time due to starting levothyroxine Patient Active Problem List Diagnosis Code ??? 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 Lumbar degenerative disc disease M51.36 ??? Osteomyelitis M86.9 ??? Primary osteoarthritis of left knee (DJD) M17.12 ??? Acute appendicitis K35.80 EXAM: HEENT: Airway examined, oropharynx clear Mallampati Score: II (soft palate, uvula, fauces visible) LUNGS: Clear to auscultation HEART: Regular rate and rhythm, normal S1, S2 ABDOMEN: Normal bowel sounds, soft, non tender, non distended, A/P Proceed with the planned endoscopic procedure. ASA 1 - Normal health patient Sedation Plan: moderate (conscious sedation) Risks and benefits of the procedure explained to the patient. Consent signed. documented in this encounter Plan of Treatment Upcoming Encounters Date Type Department Care Team (Late st Contact Info) Description 10/27/2023 11:15 AM EDT Office Visit Palliative Medicine at [place] [phone] Elly Alston MD [facility] DR HOSPICE [place] [address] 10/27/2023 1:00 PM EDT Office Visit Speech Therapy at [place] [phone] Debra Franco, SHED WORKERS SUPERVISOR 11/03/2023 2:00 PM EDT Office [place] [address] Debra Farnco, SHED WORKERS SUPERVISOR 11/08/2023 2:30 PM EDT Appointment MRI at [place] [phone] Navjot Grider MD [facility] [place] [address] 11/09/2023 1:45 PM EDT Office Visit Hematology and Oncology at [place] [phone] Isabell Jacob MD [facility] [place] [address] 11/11/2023 10:30 AM EDT Office Visit Radiation Oncology at [place] [phone] Nicki Sharpe MD [facility] [place] [address] 11/15/2023 10:00 AM EDT Office [place] [address] Debra Franco, SHED WORKERS SUPERVISOR 11/16/2023 9:00 AM EDT Office Visit Hematology [place] [address] Bisi Nam 11/22/2023 10:00 AM EDT Office [place] [address] Debra Franco, SHED WORKERS SUPERVISOR 11/30/2023 9:00 AM EDT Office Visit Hematology [place] [address] Bisi Nam 12/14/2023 9:00 AM EDT Office Visit Hematology [place] [address] Bisi Nam 12/28/2023 9:00 AM EDT Office Visit Hematology [place] [address] Bisi Nam documented as of this encounter Procedures Procedure Name Priority Date/Time Associated Diagnosis Comments Upper GI Endoscopy, Diagnostic (46329) 06/11/2021 11:51 AM EDT EGD, failure after treatment, peptic ulcer UPPER GI ENDOSCOPY Routine 06/11/2021 11 :37 AM EDT documented in this encounter Results * UPPER GI ENDOSCOPY (06/11/2021 11:37 AM EDT) UPPER GI ENDOSCOPY [facility] ___ Procedure Date: 06/11/2021 11:37 AM ? Patient Name: Perfecto Polk ? N: [id number] ? Date of : 1940 ? Age: 80 ? Order #: [id number] ? Instrument Name: [id number] ? ___ Procedure: ? Upper GI endoscopy Indications: ? Epigastric abdominal pain, ? Follow-up of gastro-esophageal ? reflux disease Providers: ? Guerda Coombs MD, Daria Fontanez, ? Francisco Francois, Chuck Wagon Driver Referring MD: ?Molina Herr MD Medicines: ? Midazolam 3 mg IV, Fentanyl 125 ? micrograms IV Complications: ? No immediate complications. ___ Procedure: ? Pre-Anesthesia Assessment: ? - Prior [...] cancer, and adverse medication ? reactions. The Endoscope was ? introduced through the mouth, and ? advanced to the third part of ? duodenum. The patient tolerated the ? procedure well. The upper GI ? endoscopy was accomplished without ? difficulty. The patient tolerated ? the procedure well. ? Findings: ? A large hiatal hernia was present. A small Tim's ? erosion was seen along the hiatus. ? Savary-Wolfe Grade I (single erosion or exudate, ? oval or linear, single fold) esophagitis was found at ? the gastroesophageal junction. ? The entire examined stomach was normal. ? The examined duodenum was normal. ? Moderate Sedation: ? I was present during the intraservice time as ? documented by the sedation RN. Impression: ?- Large hiatal hernia. ? - Savary-Wolfe Grade I reflux ? esophagitis. ? - Normal stomach. ? - Normal examined duodenum. ? - No specimens collected. Recommendation: ?Symptoms coincided with change in ? timing of omeprazole. ? Suggest increasing omeprazole to ? 40mg/day for 4 weeks then back to ? 20mg/day. ? The timing should be 30min before a ? meal, evening meal should be fine. ? Attending Participation: ? I personally performed the entire procedure. ? I was present during the intraservice time as ? documented by the sedation RN. ? Guerda Coombs MD 06/11/2021 12:12:06 PM This report has been signed electronically. Number of Addenda: 0 Note Initiated On: 06/11/2021 11:37 AM PROVATION 06/11/2021 11:3 7 AM EDT Molina Herr MD GENERAL SURGICAL ORD ERABLES PROVATION documented in this encounter Visit Diagnoses Not on filedocumented in this encounter Administered Medications Inactive Administered Medications - up to 3 most recent administrations Medication Order MAR Action Action Date Dose Rate Site fentaNYL (pf) (50 mcg/mL) multi-dose injection ONCE PRN, Starting on Debbie 06/11/21 at 1157, Until Debbie 06/11/21 at 1506, Intra-Operative (Intra-Procedure), Routine Given 06/11/2021 12:04 PM EDT 25 mcg Given 06/11/2021 11:59 AM EDT 50 mcg Given 06/11/2021 11:57 AM EDT 50 mcg lactated ringers infusion 100 mL/hr, Intravenous, CONTINUOUS, Starting on Debbie 06/11/21 at 1115, Until Debbie 06/11/21 at 1248, Endoscopy (Day of Procedure) New Bag 06/11/2021 11:51 AM EDT 100 mL/hr 100 mL/hr midazolam (pf) (Versed) (1 mg/mL) multi-dose injection ONCE PRN, Starting on Debbie 06/11/21 at 1157, Until Debbie 06/11/21 at 1506, Intra-Operative (Intra-Procedure), Routine Given 06/11/2021 12:05 PM EDT 0.5 mg Given 06/11/2021 12:03 PM EDT 0.5 mg Given 06/11/2021 11:59 AM EDT 1 mg documented in this encounter Active and Recently Administered Medications Times are shown in EDT. Continuous Medication Order 06/09/2021 06/10/2021 06/11/2021 lactated ringers infusion (CANCELED) 100 mL/hr, Intravenous, CONTINUOUS, Starting on Debbie 06/11/21 at 1115, Until Debbie 06/11/21 at 1248, Endoscopy (Day of Procedure) 1115 (Due)1151 (New Bag - Provider: Daria Fontanez, OSCAR) PRN Medication Order 06/09/2021 06/10/2021 06/11/2021 fentaNYL (pf) (50 mcg/mL) multi-dose injection (CANCELED) ONCE PRN, Starting on Debbie 06/11/21 at 1157, Until Debbie 06/11/21 at 1506, Intra-Operative (Intra-Procedure), Routine 1157 (Given - Provid er: Daria Fontanez RN)1159 (Given - Provider: Daria Fontanez, OSCAR)1204 (Given - Provider: Daria Fontanez, RN) midazolam (pf) (Versed) (1 mg/mL) multi-dose injection (CANCELED) ONCE PRN, Starting on Debbie 06/11/21 at 1157, Until Debbie 06/11/21 at 1506, Intra-Operative (Intra-Procedure), Routine 1157 (Given - Provid er: Daria Fontanez, OSCAR)1159 (Given - Provider: Daria Fontanez RN)1203 (Given - Provider: Daria Fontanez RN)1205 (Given - Provider: Daria Fontanez RN) documented in this encounter Care Teams Log Handler Relationship Specialty Start Date End Date Molina Herr MD [facility] [address] [place] [address] PCP - General 01/27/10 documented as of this encounter
--- OUTSIDE RECORDS SUMMARY | 2023-10-17 15:11 | XMS_ITS | Encounter Summary ---
[place] [address] Care Team Providers Care Jewelry Drilling Machine Operator Name Role Phone Molina Herr MD Primary Care Provider Reason for Visit * Reason Comments Follow-up L ACHILLES TENDON RU PTURE DOI AUGUST 2022 * Consultation (Urgent) - Closed Specialty Diagnoses / Procedures Referred By Contac t Referred To Contact Orthopaedics Diagnoses Rupture of Achilles tendon, unspecified laterality, initial encounter Molina Herr MD [address] [place] [address] Danuta Alvarez MD [facility] [place] [address] Referral ID Status Reason Start Date Expiration Date V isits Requested Visits Authorized [id number] Closed Consult, Test & Treat PCP Updated and/or Approved 09/30/2022 09/30/2023 6 6 Encounter Details Date Type Department Care Team (Late st Contact Info) Description 10/05/2022 3:00 PM EDT Office [place] [address] Morris Heck PA [facility] [place] [address] Achilles tendon rupture, left, initial encounter Social [...] - - Weight 81.6 kg (180 lb) 10/05/2022 2:41 PM EDT Height 175.3 cm (5' 9) 10/05/2022 2:41 PM EDT Body Mass Index 26.58 10/05/2022 2:41 PM EDT documented in this encounter Progress Notes * Morris Heck PA - 10/05/2022 3:00 PM EDT Images from the original note were not included. PATIENT NAME: Perfecto Polk AGE: 82 y.o. MR#: [id number] DATE OF VISIT: 10/05/2022 DATE OF INJURY/ONSET: Around September 21, 2022 STAFF: Morris Heck PA-C. CHIEF COMPLAINT: Achilles tendinopathy and swollen ankle HISTORY OF PRESENT ILLNESS: Mr. Polk is a 82 y.o. male who comes into clinic today for evaluation of the above which began in July 2022. He does not remember any inciting event however he was walkingin [place] visiting his grandson when he noticed that his left Achilles was not pushing off with the same strength as his right when walking upstairs. He was seen by his primary care provider who diagnosed him with Achilles tendinitis and he was sent for physical therapy. This wasall going well until a week and a half ago when the patient was stretching his Achilles and heard aloud snap. The patient was unable to continue stretching and also found that he was unable to do a heel rise on the left side. He noticed significant swelling around the ankle which he and his physical therapist were worried about. currently the patient is ambulating without a boot but would like to be evaluated as he feels he is digressing in his recovery and is limping wherever he walks. Medications and Allergies were reviewed in eD-H [...] BX performed by Dominick Earl MD at [facility] PRO COLONOSCOPY, REMV LESN, SNARE N/A 01/12/2018 COLONOSCOPY, POLYPECTOMY, REMOVAL LESION BY SNARE (WRVU 4.67) performed by Guerda Coombs MD at [facility] PRO LAP, APPENDECTOMY N/A 03/09/2017 LAPAROSCOPIC APPENDECTOMY (WRVU 9.45) performed by Saurav Chen MD at [facility] OR PRO UPPER GI ENDOSCOPY, DIAGNOSTIC N/A 06/11/2021 EGD, UPPER GI ENDOSCOPY performed by Guerda Coombs MD at [facility] FAMILY HX: Family History Problem Relation Age of Onset Cancer Brother SOCIAL HX: Social History Occupational History Not on file Tobacco Use Smoking status: Never Smokeless tobacco: Never Vaping Use Vaping Use: Never used Substance and Sexual Activity Alcohol use: Not Currently Drug use: No Sexual activity: Not on file ROS: Pertinent items are noted in HPI. Constitutional: Denies fevers, chills, weight change HEENT: Denies headache, vision changes, neck pain, difficulty swallowing Endocrine: Denies malaise/lethargy, skin changes or temperature intolerance Respiratory: Denies shortness of breath, cough Cardiac: Denies chest pain, palpitations GI: denies abdominal pain, nausea, vomiting Skin: Denies new rashes or lesions Neuro: no numbness, tingling, or weakness Psychological: denies suicidal ideation Musculoskeletal: as above in HPI 10/04/2022 1:31 PM General Health, Prior Treatments, PreExisting Condition, Health Habits, About You PROMIS-10 General Health Excellent PROMIS-10 Quality of Life Excellent PROMIS-10 Physical Health Very Good PROMIS-10 Mental Health Excellent PROMIS-10 Social Activity Excellent PROMIS-10 Everyday Activities Mostly PROMIS-10 Pain 4 PROMIS-10 Fatigue None PROMIS-10 Social Roles Excellent PROMIS-10 Anxious or Depressed Never PROMIS PHYSICAL SCORE (range 16-68) 50.8 PROMIS MENTAL SCORE (range 21-68) 67.6 Treatments Tried Brace Physical therapy Over the counter anti-inflammatory drugs (e.g Advil, Aspirin, Aleve) Prescribed anti-inflammatory drugs Electrical stimulation (TENS/Transcutaneous Electrical Nerve Stimulation) Alzheimers or dementia No Cirrohosis or liver disease No HIV/AIDS No Pain in more than one joint in legs Yes Back or neck pain No Heart attack No Heart failure No Unclog/bypass leg arteries No Stroke, blood clot, TIA No Asthma No Emphysema, chronic bronchities, or COPD No Stomach ulcers/peptic ulcer disease No Diabetes No Poor kidney function No Rheumatic condtions No Cancer No Weight (lbs) 180 Height (feet) 5 feet Height (Inches) 9 BMI 26.58 (Overweight) Ever used tobacco products No Ever used alcoholic beverages Yes Alcohol frequency Weekly WHO - Alcohol Advice 4 (You are at risk of health and other problems from your current pattern of alcohol use.) Live Alone No Marital situation Living with significant other Schooling More than 4 - year college Combined Household Income $75,000 or more # People Supported 1 Slovak, , No, not Slovak// Race White Health Literacy Extremely Currently working No Not working because: Retired 02/02/2021 9:23 PM [facility] Response KOOS [...] Lungs: no extra work of breathing Musculoskeletal: Left foot and ankle Inspection: Midfoot arch: neutral Hindfoot: neutral The skin over the foot and ankle is pink in color, warm and well perfused without calluses or lesions present. There is diffuse swelling around the left ankle. ROM: Dorsiflexion with knee extended: 15 degrees Plantarflexion: 15 degrees Inversion: 25 degrees Eversion: 15 degrees Palpation: Ankle joint line: No TTP Medial malleolus: No TTP Lateral malleolus (anterior or posterior): No TTP Sinus tarsi: No TTP Achilles tendon: Some tenderness to palpation along the Achilles tendon about 6 mm proximal to the insertion. A deep palpable gap about 5 mm in length is present at the same level when the patient plantar flexes. The ends of the tendons are felt when the patient plantar flexes Achilles tendon insertion: No TTP Subtalar joint: No TTP CC joint: No TTP CN joint: No TTP Hindfoot: No TTP Midfoot: No TTP Forefoot: No TTP Heads of the metatarsals: No TTP MTP joints: No TTP Sesamoids: No TTP Phalanges and IP joints: No TTP Strength: Ankle dorsiflexion: 5/5 and no pain Ankle plantarflexion: 3/5 Ankle inversion: 5/5 and no pain Ankle eversion with the toes pointed: 5/5. No pain or subluxation of the peroneals Special tests: Positive Chang test on the left side and positive matles test on the left side. Neurovascular: Brisk capillary refill at the distal [...] new diagnostic images were performed today ASSESSMENT: Left-sided partial versus complete Achilles tendon rupture. PLAN: Given that the patient is a week and a half out from his inciting injury which I presume was when he heard the snap in his ankle, I suggested that he be weightbearing as tolerated in an Achilles bootwith 2 wedges for the next 4 weeks and weight-bear as tolerated. The patient is unable to push against any resistance when plantar flexing but can plantarflex against gravity which leads me to believe that this injury more closely resembles a partial Achilles tear. I have written a DME order for Srinivasa telles this visit. I do not want the patient to continue physical therapy for the remaining 4 weeks that he is in the boot. I would like the patient to sleep in the boot however if he feels heis unable to he may take it off but make sure that he is not flexing his foot up past 90 degrees. I spoke with the patient at length about surgical and nonsurgical treatment plans explaining the risks and benefits of both including but not limited to risk of infection with surgery and slightly higher risk of rerupture with nonoperative treatment. I explained that at 1-1/2 weeks out there is some chance that he could repair the ends of the Achilles nonoperatively in the boot but that there is no good indicator whether or not he will heal in the boot and surgery may become our only option to connect the 2 ends of the tendon. The patient opted to have a nonoperative course. I will follow-up with the patient in 4 weeks to reevaluate the status of his Achilles tendon The patient expressed agreement with and understanding of this plan of care. The patient understands to contact us if they have any other questions or concerns. The above documentation was completed using [employer] voice recognition software. Morris Heck PA-C, [facility] Department of Orthopaedics [facility] Pager [phone] documented in this encounter Plan of Treatment Upcoming Encounters Date Type Department Care Team (Late st Contact Info) Description 10/27/2023 11:15 AM EDT Office Visit [place] [phone] Elly Alston MD [facility] DR HOSPICE [place] [address] 10/27/2023 1:00 PM EDT Office [place] [phone] Debra Franco CLERICAL ADMINISTRATOR 11/03/2023 2:00 PM EDT Office [place] [phone] Debra Franco CLERICAL ADMINISTRATOR 11/08/2023 2:30 PM [place] [address] Navjot Grider MD [facility] DR HEMATOLOGY [place] [address] 11/09/2023 1:45 PM EDT Office Visit Hematology and Oncology at [place] [address] Isabell Jacob MD [facility] [place] [address] 11/11/2023 10:30 AM EDT Office Visit Radiation Oncology at [place] [address] Nicki Sharpe MD [facility] [place] [address] 11/15/2023 10:00 AM EDT Office Visit Speech Therapy at [address] Debra Franco, CLERICAL ADMINISTRATOR 11/16/2023 9:00 AM EDT Office Visit Hematology and Oncology at [address] Bisi Nam 11/22/2023 10:00 AM EDT Office Visit Speech Therapy at [place] [phone] Debra Franco, CLERICAL ADMINISTRATOR 11/30/2023 9:00 AM EDT Office Visit Hematology [place] [address] Bisi Nam 12/14/2023 9:00 AM EDT Office Visit Hematology [place] [address] Bisi Nam 12/28/2023 9:00 AM EDT Office Visit Hematology and Oncology at [place] [phone] Bisi Nam documented as of this encounter Visit Diagnoses Diagnosis Achilles tendon rupture, left, initial encounter documented in this encounter Care Teams Jewelry Drilling Machine Operator Relationship Specialty Start Date End Date Molina Herr MD [facility] [address] [place] [address] PCP - General 01/27/10 documented as of this encounter
--- OUTSIDE RECORDS SUMMARY | 2023-10-17 15:11 | XMS_ITS | Encounter Summary ---
[place] [address] Care Team Providers Care Explosive Operator Fuse Name Role Phone Molina Herr MD Primary Care Provider [phone] Encounter Details Date Type Department Care Team (Latest Contact Info) Description 08/10/2021 4:45 PM EDT Office Visit Audiology at [address] [address] Hafsa Osullivan AUD [facility] [place] [address] Asymmetrical sensorineural hearing loss Social History Tobacco [...] of this encounter Progress Notes * Hafsa Osullivan, NEELIMA - 08/10/2021 4:45 PM EDT AUDIOLOGY Perfecto Polk was seen today for a hearing aid check. History is positive for asymmetric sensorineural hearing loss. Mr. Polk reported the following information: ?? Overall, he is hearing more sounds than he has been used to, following the last programming session in June. He has a greater awareness of sounds. Loudness discomfort was denied. He is understanding better, although understanding speech in the presence of background noise is still very challengi ng. ?? The hearing aids periodically cycle through the program settings by themselves. Also, there are times when streamed sounds from his phone are distorted. He does not feel that the hearing aids needto be sent for repair yet. The following actions were taken: ?? Otoscopy showed clear ear canals with exotoses. ?? No changes were made to programming, per patient request. RECOMMENDATIONS: Hearing re-evaluation and hearing aid check in 2 years, sooner if concerns arise. Please do not hesitate to contact this Section at [phone] if there are questions regarding this report or its recommendations. Neelima Ross Clinical Machine [place] [address] ; HEARING AID(S): HEARING AID RIGHT LEFT Make/Model/Style Oticon Opn 3 miniRITE Oticon Opn 3 miniRITE Casing Color 92 (ann) 92 (ann) Serial Number [id number] (new-replacement) [id number] (old) Battery Size 312 312 Invoice number / date [id number] ??10/27/16 [id number] ??10/27/16 PROGRAM/SETTINGS ? Fitting Algorithm DSL 5a [...] Slim tube / ANIBAL specifics 60 gain research worker encyclopedia/ 8 mm double doss mini fit dome Length 2 60 gain research worker encyclopedia/ 8 mm double doss mini fit dome Length 2 Impression Date ? Invoice # ? ACCESSORIES ? Make/Model ? Color ? Serial Number ?Warranty date ? Invoice number/date ? documented in this encounter Plan of Treatment Upcoming Encounters Date Type Department Care Team (Late st Contact Info) Description 10/27/2023 11:15 AM EDT Office Visit Palliative Medicine at [place] [address] Elly Alston MD [facility] HOSP[facility] [place] [address] 10/27/2023 1:00 PM EDT Office Visit Speech Therapy at [place] [address] Debra Franco, CONTROL ANALYST 11/03/2023 2:00 PM EDT Office Visit Speech Therapy at [place] [address] Debra Franco, CONTROL ANALYST 11/08/2023 2:30 PM EDT Appointment MRI at [place] [address] Navjot Grider MD [facility] [place] [address] 11/09/2023 1:45 PM EDT Office Visit Hematology and Oncology at [address] Isabell Jacob MD [facility] [place] [address] 11/11/2023 10:30 AM EDT Office Visit [place] [address] Nicki Sharpe MD [facility] [place] [address] 11/15/2023 10:00 AM EDT Office [place] [address] Debra Franco, CONTROL ANALYST 11/16/2023 9:00 AM EDT Office Visit Hematology [place] [address] Bisi Nam 11/22/2023 10:00 AM EDT Office [place] [address] Debra Franco, CONTROL ANALYST 11/30/2023 9:00 AM EDT Office Visit Hematology [place] [address] Bisi Nam 12/14/2023 9:00 AM EDT Office Visit Hematology [place] [address] Bisi Nam 12/28/2023 9:00 AM EDT Office Visit Hematology [place] [address] Bisi Nam documented as of this encounter Visit Diagnoses Diagnosis Asymmetrical sensorineural hearing loss Sensorineural hearing loss, asymmetrical documented in this encounter Care Teams Explosive Operator Fuse Relationship Specialty Start Date End Date Molina Herr MD [address] [place] [address] PCP - General 01/27/10 documented as of this encounter
--- OUTSIDE RECORDS SUMMARY | 2023-10-17 15:11 | XMS_ITS | Encounter Summary ---
Author Organization [facility] [place] [address] Care Team Providers Care Lumber Racker Name Role Phone Molina Herr MD Primary Care Provider [phone] Encounter Details Date Type Department Care Team (Latest Contact Info) Description 05/15/2021 4:31 PM EST - 05/15/2021 11:59 PM EST Hospital En[place] [address] Discharge Disposition: Home Social History [...] 20 mg by mouth daily. 4 03/08/2014 [id number] (SOURCE CF) 200-10 mcg-mg Chew Take 1 [...] AM EDT Office Visit Palliative Medicine at [place] [phone] Elly Alston MD [facility] HOSPICE [place] [address] 10/27/2023 1:00 PM EDT Office Visit Speech Therapy at [place] [phone] Debra Franco, CAMPUS PRESIDENT 11/03/2023 2:00 PM EDT Office Visit Speech Therapy at [place] [phone] Debra Franco, CAMPUS PRESIDENT 11/08/2023 2:30 PM EDT Appointment MRI at [place] [address] Navjot Grider MD [facility] [place] [address] 11/09/2023 1:45 PM EDT Office Visit Hematology and Oncology at [place] [phone] Isabell Jacob MD [facility] [place] [address] 11/11/2023 10:30 AM EDT Office [place] [address] Nicki Sharpe MD [facility] [place] [address] 11/15/2023 10:00 AM EDT Office [place] [address] Debra Franco, CAMPUS PRESIDENT 11/16/2023 9:00 AM EDT Office Visit Hematology [place] [address] Bisi Nam 11/22/2023 10:00 AM EDT Office [place] [address] Debra Franco, CAMPUS PRESIDENT 11/30/2023 9:00 AM EDT Office Visit Hematology [place] [address] Bisi Nam 12/14/2023 9:00 AM EDT Office Visit Hematology [place] [address] Bisi Nam 12/28/2023 9:00 AM EDT Office Visit Hematology [place] [address] Bisi Nam documented as of this encounter Procedures Procedure Name Priority Date/Time Associated Diagnosis Comments HEMOGRAM Routine 05/15/2021 11:17 AM EST DIFFERENTIAL, AUTOMATED Routine 05/15/2021 11:17 AM EST GOLD TUBE HOLD Routine 05/15/2021 11:17 AM EST TROPONIN Routine 05/15/2021 11:17 AM EST AMYLASE Routine 05/15/2021 11:17 AM EST COMPREHENSIVE METABOLIC PANEL Routine 05/15/2021 11:17 AM EST documented in this encounter Results * Gold Tube HOLD (05/15/2021 11:17 AM EST) [facility] Gold Hold Sample in lab. [facility] Blood Venous Draw / Unknown 05/15/2021 11:17 AM EST 05/15/2021 6:27 PM EST Molina Herr MD CHEMISTRY ORDERABLES [facility] [place] [address] * Troponin (05/15/2021 11:17 AM EST) [facility] Troponin-T <0.01 0.00 - 0.00 ng/mL [facility] Comment: The 99th percentile for Troponin T is less than 0.01 ng/mL, any detectable cTnT concentration using this assay should be considered elevated. According to the third universal definition of myocardial infarction the following criteria with a clinical presentation consistent with acute myocardial ischemia meets the diagnosis for a myocardial infarction ([place]). Detection of a rise and/or fall of cTnT, with at least one value greater than the 99th percentile (> or = 0.01) and with at least one of the following ?? Symptoms of ischemia ?? New or presumed new significant GH-pebmyor-E wave (ST-T) changes or new left bundle branch block (LBBB) ?? Development of pathologic Q waves in the ECG ?? Imaging evidence of new loss of viable myocardium or new regional wall motion abnormality ?? Identification of an intracoronary thrombus by angiography or autopsy Samples for cTnT testing should be obtained serially upon first assessment and again 3 to 6 hours later. If the clinical suspicion is high and previous samples have been negative an additional sample may be indicated. Reference: Third [place] Definition of Myocardial Infarction. Journal of the [place] [employer] 2012;60:1581-98 Blood Venous Draw / Unknown 05/15/2021 11:17 AM EST 05/15/2021 5:23 PM EST Narrative Resulting Agency Comment Spec In Lab Molina Herr MD CHEMISTRY ORDERABLES [facility] [place] [address] * Amylase (05/15/2021 11:17 AM EST) Pathologist [facility] Amylase 80 28 - 100 unit/L [facility] Blood Venous Draw / Unknown 05/15/2021 11:17 AM EST 05/15/2021 5:23 PM EST Narrative Resulting Agency Comment Spec In Lab Molina Herr MD CHEMISTRY ORDERABLES Performing Organization Address [facility] Co de Phone Number [facility] [place] [address] * Differential, Automated (05/15/2021 11:17 AM EST) [facility] Neutrophil % 54.7 % [facility] Neutrophil Absolute 2.58 1.70 - 6.10 x10(3)/[facility] Lymph % 30.4 % [facility] Lymphocytes Abs 1.4 0.9 - 3.2 x10(3)/[facility] Monocyte % 10.4 % [facility] Monocyte Abs 0.5 0.3 - 0.9 x10(3)/[facility]OR[facility]ORY Eos % 3.2 % [facility] Eosinophils Abs 0.2 0.0 - 0.4 x10(3)/[facility] Basophil % 1.1 % [facility] Baso Absolute 0.0 0.0 - 0.1 x10(3)/[facility]ORY Immature Gran % 0.20 % [facility] Comment: Immature granulocytes(IG's)percentage and absolute count will include metamyelocytes, myelocytes, and promyelocytes. Blood smears from CBCs yielding IG's will be scanned manually for concordance. If this scan disagrees with the automated IG or if promyelocytes are noted, a manual differential will be performed. Immature Gran Absolute 0.01 0.00 - 0.04 x10(3)/mcL [facility] Blood Venous Draw / Unknown 05/15/2021 11:17 AM EST 05/15/2021 5:23 PM EST Narrative Resulting Agency Comment Spec In Lab Molina Herr MD HEMATOLOGY ORDERABLE S Performing Organization Address City/State/[facility] Co de Phone Number [facility] [place] [address] * (ABNORMAL) Hemogram (05/15/2021 11:17 AM EST) White Blood Cell 4.7 4.0 - 9.5 x10(3)/[facility] Red Blood Cell 4.85 4.58 - 5.54 x10(6)/[facility] Hemoglobin 13.6(L) 13.7 - 16.5 g/dL [facility] Hematocrit 43.6 40.5 - 48.5 % [facility] Mean Cell Volume 89.9 82.9 - 93.1 [facility] Mean Cell Hemoglobin 28.0 27.5 - 32.1 pg [facility] Mean Cell Hemoglobin Concentration 31.2(L) 32.0 - 35.7 g/dL [facility] Platelet 263 145 - 357 x10(3)/[facility] RDW Standard Deviation 43.9 36.0 - 45.0 [facility] RDW coefficient of variation 13.4 11.4 - 13.8 % [facility] Mean Platelet Volume 10.1 7.6 - 12.9 [facility]ORY NRBC% auto 0.0 % [facility] NRBC Absolute 0.000 0.000 - 0.000 x10(3)/ L [facility] Blood Venous Draw / Unknown 05/15/2021 11:17 AM EST 05/15/2021 5:23 PM EST Narrative Resulting Agency Comment Spec In Lab Molina Herr MD HEMATOLOGY ORDERABLE S [facility] [place] [address] * (ABNORMAL) Comprehensive metabolic panel (non-fasting) (05/15/2021 11:17 AM EST) Glucose 90 65 - 199 mg/dL [facility] Comment:Diabetes: >=200 mg/d L plus symptoms Blood Urea Nitrogen 22(H) 10 - 20 mg/dL [facility] Creatinine 1.23 0.80 - 1.50 mg/dL [facility] Sodium 138 135 - 145 mmol/L [facility] Potassium 4.2 3.5 - 5.0 mmol/L [facility] Comment: Please note: ??Patients with WBC >100,000 may have falsely elevated Potassium levels. ??For accurate Potassium quantification in these patients send serum separator tube (gold top) for subsequent determinations. ??Contact the Clinical Chemistry Laboratory if there are any questions. Chloride 104 98 - 107 mmol/L [facility] Carbon Dioxide 24 22 - 31 mmol/L [facility] Anion Gap 10 5 - 15 mmol/L [facility] Calcium 9.2 8.5 - 10.5 mg/dL [facility] Protein, Total 7.1 6.1 - 8.0 g/dL [facility] Albumin 4.2 3.2 - 5.2 g/dL [facility] Aspartate Aminotransferase 17 0 - 39 unit/L [facility] Alanine Aminotransferase 13 0 - 55 unit/L [facility] Alkaline Phosphatase 59 40 - 130 unit/L [facility] Bilirubin, Total 0.4 0.2 - 1.3 mg/dL [facility] Est Glomerular Filtration Rate 56(L) >=60 mL/min/1. 73 m?? [facility] Comment: This patient? s estimated glomerular filtration rate (eGFR) is between 56 mL/min/1.73 m2 (patients with less muscle mass per kg body weight) and 65 mL/min/1.73 m2 (patients with more muscle mass [...] to eGFR. Blood Venous Draw / Unknown 05/15/2021 11:17 AM EST 05/15/2021 5:23 PM EST Narrative Resulting Agency Comment Spec In Lab Molina Herr MD CHEMISTRY ORDERABLES [facility] [place] [address] documented in this encounter Visit Diagnoses Not on filedocumented in this encounter Care Teams Lumber Racker Relationship Specialty Start Date End Date Molina Herr MD [address] [place] [id number] PCP - General 01/27/10 documented as of this encounter
--- OUTSIDE RECORDS SUMMARY | 2023-10-17 15:11 | XMS_ITS | Encounter Summary ---
Author Organization [facility] Address [facility] [place] [address] Care Team Providers Care Band Maker Name Role Phone Molina Herr MD Primary Care Provider [phone] Reason for Referral * Consultation (Elective) - Closed Specialty Diagnoses / Procedures Referred By Flo viveros Referred To Contact Dermatology Diagnoses Skin cancer screening Molina Herr MD [address] [place] [address] Alissa Willoughby MD [facility] [place] [address] Referral ID Status Reason Start Date Expiration Date V isits Requested Visits Authorized [id number] Closed Consult, Test & Treat 10/07/2022 10/07/2023 1 1 Encounter Details Date Type Department Care Team (Latest Contact Info) Description 10/07/2022 Transcribe Orders eDH Incoming Referrals [phone] Molina Herr MD [address] [place] [address] Skin cancer screening (Primary Dx) Social History Tobacco Use Types [...] Office Visit Palliative Medicine at [place] [address] Elly Alston MD [facility] DR HOSPICE [place] [address] 10/27/2023 1:00 PM EDT Office Visit Speech Therapy at [place] [address] Debra Franco, CHART SNATCHER 11/03/2023 2:00 PM EDT Office Visit Speech Therapy at [place] [address] Debra Franco, CHART SNATCHER 11/08/2023 2:30 PM EDT Appointment MRI at [place] [address] Navjot Grider MD [facility] [place] [address] 11/09/2023 1:45 PM EDT Office Visit Hematology and Oncology at [place] [address] Isabell Jacob MD [facility] [place] [address] 11/11/2023 10:30 AM EDT Office Visit Radiation Oncology at [place] [address] Nicki Sharpe MD [facility] [place] [address] 11/15/2023 10:00 AM EDT Office [place] [address] Debra Franco, CHART SNATCHER 11/16/2023 9:00 AM EDT Office Visit Hematology [place] [address] Bisi Nam 11/22/2023 10:00 AM EDT Office [place] [address] Debra Franco CHART SNATCHER 11/30/2023 9:00 AM EDT Office Visit Hematology [place] [address] Bisi Nam 12/14/2023 9:00 AM EDT Office Visit Hematology [place] [address] Bisi Nam 12/28/2023 9:00 AM EDT Office Visit Hematology [place] [address] Bisi Nam Scheduled Referrals Name Type Priority Associated Diagnoses Order Schedule Referral to Dermatology Outpatient Referral Routine Skin cancer screening Ordered: 10/07/2022 documented as of this encounter Visit Diagnoses Diagnosis Skin cancer screening- Primary Screening for malignant neoplasm of the skin documented in this encounter Care Teams Band Maker Relationship Specialty Start Date End Date Molina Herr MD [address] [place] [address] PCP - General 01/27/10 documented as of this encounter
--- OUTSIDE RECORDS SUMMARY | 2023-10-17 15:11 | XMS_ITS | Encounter Summary ---
[place] [address] Care Team Providers Care Conveyor Line Battery Charger Name Role Phone Molina Herr MD Primary Care Provider Reason for Referral * Consultation (Routine) - Closed Specialty Diagnoses / Procedures Referred By Contac t Referred To Contact Vascular Surgery Diagnoses Bruit ROUTINE/B CAR DUP - BRUIT/JARRETT Molina Herr MD [address] [place] [address] [facility] [address] [place] [address] Referral ID Status Reason Start Date Expiration Date V isits Requested Visits Authorized [id number] Closed Consult, Test & Treat 10/01/2022 10/01/2023 1 1 Encounter Details Date Type Department Care Team (Late st Contact Info) Description 10/01/2022 Transcribe Orders eDH Incoming Referrals [phone] Molina Herr MD [address] [place] [address] Bruit Social History Tobacco Use Types Packs/Day Years [...] Office Visit Palliative Medicine at [place] [address] Elly Alston MD [facility] HOSPICE AND [place] [address] 10/27/2023 1:00 PM EDT Office Visit Speech Therapy at [place] [address] Debra Franco, LUCERNE FARMER 11/03/2023 2:00 PM EDT Office Visit Speech Therapy at [place] [address] Debra Franco, LUCERNE FARMER 11/08/2023 2:30 PM EDT Appointment MRI at [place] [address] Navjot Grider MD [facility] HEMATOLOGY [place] [address] 11/09/2023 1:45 PM EDT Office Visit Hematology and Oncology at [place] [address] Isabell Jacob MD [facility] [place] [address] 11/11/2023 10:30 AM EDT Office Visit Radiation Oncology at [place] [address] Nicki Sharpe MD [facility] [place] [address] 11/15/2023 10:00 AM EDT Office Visit [place] [address] Debra Franco, LUCERNE FARMER 11/16/2023 9:00 AM EDT Office Visit Hematology [place] [address] Bisi Nam 11/22/2023 10:00 AM EDT Office Visit [place] [address] Debra Franco LUCERNE FARMER 11/30/2023 9:00 AM EDT Office Visit Hematology [place] [address] Bisi Nam 12/14/2023 9:00 AM EDT Office Visit Hematology [place] [address] Bisi Nam 12/28/2023 9:00 AM EDT Office Visit Hematology [place] [address] Bisi Nam Scheduled Referrals Name Type Priority Associated Diagnoses Orde r Schedule Referral to Vascular Surgery Outpatient Referral Urgent Bruit Ordered: 10/01/2022 documented as of this encounter Visit Diagnoses Diagnosis Bruit Other symptoms involving cardiovascular system documented in this encounter Care Teams Conveyor Line Battery Charger Relationship Specialty Start Date End Date Molina Herr MD [address] [place] [address] PCP - General 01/27/10 documented as of this encounter
--- OUTSIDE RECORDS SUMMARY | 2023-10-17 15:11 | XMS_ITS | Encounter Summary ---
Author Organization [facility] Address [facility] [place] [address] Care Team Providers Care Outside Deliverer Name Role Phone Molina Herr MD Primary Care Provider [phone] Encounter Details Date Type Department Care Team (Latest Contact Info) Description 10/04/2022 Travel Social History Tobacco Use Types Packs/Day [...] EDT Office Visit [place] [address] Elly Alston MD [facility] HOSPICE [place] [address] 10/27/2023 1:00 PM EDT Office [place] [address] Debra Franco, PUBLIC HEALTH INFORMATICIAN 11/03/2023 2:00 PM EDT Office Visit Speech Therapy at [place] [phone] Debra Franco, PUBLIC HEALTH INFORMATICIAN 11/08/2023 2:30 PM EDT Appointment MRI at [address] Navjot Grider MD [facility] DR [place] [address] 11/09/2023 1:45 PM EDT Office Visit Hematology and Oncology at [address] Isabell Jacob MD [facility] [place] [address] 11/11/2023 10:30 AM EDT Office Visit Radiation Oncology at [address] Nicki Sharpe MD [facility] [place] [address] 11/15/2023 10:00 AM EDT Office [place] [address] Debra Franco, PUBLIC HEALTH INFORMATICIAN 11/16/2023 9:00 AM EDT Office Visit Hematology [place] [address] Bisi Nam 11/22/2023 10:00 AM EDT Office [place] [address] Debra Franco, ROLANDO 11/30/2023 9:00 AM EDT Office Visit Hematology [place] [address] Bisi Nam 12/14/2023 9:00 AM EDT Office Visit Hematology [place] [address] Bisi Nam 12/28/2023 9:00 AM EDT Office Visit Hematology [place] [address] Bisi Nam documented as of this encounter Visit Diagnoses Not on filedocumented in this encounter Care Teams Outside Deliverer Relationship Specialty Start Date End Date Molina Herr MD [address] [place] [address] PCP - General 01/27/10 documented as of this encounter
--- OUTSIDE RECORDS SUMMARY | 2023-10-17 15:11 | XMS_ITS | Encounter Summary ---
[place] [address] Care Team Providers Care Identity Access Management Architect Name Role Phone Molina Herr MD Primary Care Provider Encounter Details Date Type Department Care Team (Late st Contact Info) Description 10/07/2022 Telephone [place] [address] Morris Heck PA [facility] [place] [address] Social History Tobacco Use Types Packs/Day Years [...] Telephone Encounter - Morris Heck PA - 10/07/2022 2:43 PM EDT I spoke with the patient over the phone this afternoon to see how he has been coping with his Achilles boot. He explains that it is extremely uncomfortable and puts pressure points under his heel andbends his big toe which is already arthritic and aggravates the arthritis even more. He therefore has not been wearing the boot but has switched over to his cam walking boot. I strongly encouraged him to wear the Achilles boot and if it is too uncomfortable with the wedges then that he can remove 1and just wear the boot with 1 wedge. I emphasized that his best chance at healing this rupture is if he wears the boot throughout the day so that the ends of the tendon can reattach to each other. If he does not comply with this then he may end up losing significant strength in his ankle, walking on his heel and sustaining complications which may not be correctable. I gave him suggestions to reinforce the padding on the heel such as a gel heel cup and I also suggested a possible corticosteroid injection into the big toe which would decrease the inflammation and allow him to tolerate the bend that the boot causes him. The patient is going up to a camp this however we will touch base on how he feels next Tuesday. He will begin by trialing what we have discussed today. documented in this encounter Plan of Treatment Upcoming Encounters Date Type Department Care Team (Late st Contact Info) Description 10/27/2023 11:15 AM EDT Office Visit [place] [address] Elly Alston MD [facility] DR HOSPICE [place] [address] 10/27/2023 1:00 PM EDT Office [place] [address] Debra Franco, HOME HEALTH SCHEDULER 11/03/2023 2:00 PM EDT Office [place] [address] Debra Franco, HOME HEALTH SCHEDULER 11/08/2023 2:30 PM ED[place] [phone] Navjot Grider MD [facility] [place] [address] 11/09/2023 1:45 PM EDT Office Visit Hematology and Oncology at [place] [address] Isabell Jacob MD [facility] [place] [address] 11/11/2023 10:30 AM EDT Office Visit Radiation Oncology at [place] [address] Nicki Sharpe MD [facility] [place] [address] 11/15/2023 10:00 AM EDT Office Visit Speech Therapy at [place] [phone] Debra Franco, HOME HEALTH SCHEDULER 11/16/2023 9:00 AM EDT Office Visit Hematology [place] [address] Bisi Nam 11/22/2023 10:00 AM EDT Office Visit Speech Therapy at [place] [phone] Debra Franco, HOME HEALTH SCHEDULER 11/30/2023 9:00 AM EDT Office Visit Hematology [place] [address] Bisi Nam 12/14/2023 9:00 AM EDT Office Visit Hematology [place] [address] Bisi Nam 12/28/2023 9:00 AM EDT Office Visit Hematology [place] [address] Bisi Nam documented as of this encounter Visit Diagnoses Not on filedocumented in this encounter Care Teams Identity Access Management Architect Relationship Specialty Start Date End Date Molina Herr MD [facility] [address] [place] [address] PCP - General 01/27/10 documented as of this encounter
--- OUTSIDE RECORDS SUMMARY | 2023-10-17 15:11 | XMS_ITS | Encounter Summary ---
Author Organization [facility] [place] [address] Care Team Providers Care Supervisor Film Processing Name Role Phone Molina Herr MD Primary Care Provider [phone] Reason for Visit * Reason Onset Date Comments Questions 10/06/2022 Encounter Details Date Type Department Care Team (Late st Contact Info) Description 10/06/2022 Telephone [place] [phone] [facility] [address] [place] [address] Questions Social History Tobacco Use Types Packs/Day [...] encounter Miscellaneous Notes * Telephone Encounter - Oj Harris - 10/06/2022 8:33 AM EDT Name of person calling: Patient What is the question: Patient called to clarify some information he had discussed with Morris at his appointment yesterday. He is hoping he will be able to give him a call today to discus.. Best number to reach the caller: [phone] documented in this encounter Plan of Treatment Upcoming Encounters Date Type Department Care Team (Late st Contact Info) Description 10/27/2023 11:15 AM EDT Office Visit Palliative Medicine at [place] [address] [facility] [address] HOSPICE AND [place] [address] 10/27/2023 1:00 PM EDT Office Visit Speech Therapy at [place] [address] Debra Franco, MANAGER INTELLIGENCE 11/03/2023 2:00 PM EDT Office Visit Speech Therapy at [place] [phone] Debra Franco, MANAGER INTELLIGENCE 11/08/2023 2:30 PM EDT Appointment MRI at [place] [address] [facility] DR HEMATOLOGY [place] [address] 11/09/2023 1:45 PM EDT Office Visit Hematology and Oncology at [place] [address] [facility] [address] 11/11/2023 10:30 AM EDT Office Visit Radiation Oncology at [address] [facility] [address] [place] [address] 11/15/2023 10:00 AM EDT Office [place] [address] Debra Franco, MANAGER INTELLIGENCE 11/16/2023 9:00 AM EDT Office Visit Hematology [place] [address] Bisi Nam 11/22/2023 10:00 AM EDT Office [place] [address] Debra Franco MANAGER INTELLIGENCE 11/30/2023 9:00 AM EDT Office Visit Hematology [place] [address] Bisi Nam 12/14/2023 9:00 AM EDT Office Visit Hematology [place] [address] Bisi Nam 12/28/2023 9:00 AM EDT Office Visit Hematology [place] [address] Bisi Nam documented as of this encounter Visit Diagnoses Not on filedocumented in this encounter Care Teams Supervisor Film Processing Relationship Specialty Start Date End Date Molina Herr MD [facility] [address] [place] [address] PCP - General 01/27/10 documented as of this encounter
--- OUTSIDE RECORDS SUMMARY | 2023-10-17 15:11 | XMS_ITS | Encounter Summary ---
Author Organization [facility] Address [facility] [place] [address] Care Team Providers Care Healthcare Account Manager Name Role Phone Molina Herr MD Primary Care Provider [phone] Encounter Details Date Type Department Care Team (Latest Contact Info) Description 10/05/2022 Travel Social History Tobacco Use Types Packs/Day [...] AM EDT Office [place] [phone] Elly Alston MD [facility] DR HOSPICE [place] [address] 10/27/2023 1:00 PM EDT Office [place] [phone] Debra Franco, GRAPHICS PRODUCTION SPECIALIST 11/03/2023 2:00 PM EDT Office Visit Speech Therapy at [place] [phone] Debra Franco, GRAPHICS PRODUCTION SPECIALIST 11/08/2023 2:30 PM EDT Appointment MRI at [address] Navjot Grider MD [facility] DR [place] [address] 11/09/2023 1:45 PM EDT Office Visit Hematology and Oncology at [address] Isabell Jacob MD [facility] [place] [address] 11/11/2023 10:30 AM EDT Office Visit Radiation Oncology at [address] Nicki Sharpe MD [facility] [place] [address] 11/15/2023 10:00 AM EDT Office [place] [address] Debra Franco, GRAPHICS PRODUCTION SPECIALIST 11/16/2023 9:00 AM EDT Office Visit Hematology [place] [address] Bisi Nam 11/22/2023 10:00 AM EDT Office [place] [address] Debra Franco, ROLANDO 11/30/2023 9:00 AM EDT Office Visit Hematology [place] [address] Bisi Nam 12/14/2023 9:00 AM EDT Office Visit Hematology [place] [address] Bisi Nam 12/28/2023 9:00 AM EDT Office Visit Hematology [place] [address] Bisi Nam documented as of this encounter Visit Diagnoses Not on filedocumented in this encounter Care Teams Healthcare Account Manager Relationship Specialty Start Date End Date Molina Herr MD [facility] [address] [place] [address] PCP - General 01/27/10 documented as of this encounter
--- OUTSIDE RECORDS SUMMARY | 2023-10-17 15:11 | XMS_ITS | Encounter Summary ---
[place] [address] Care Team Providers Care Cesspool Cleaner Name Role Phone Molina Herr MD Primary Care Provider [phone] Reason for Visit * Reason Comments Establish Care Bilat knee pain * Consultation (Routine) - Closed Specialty Diagnoses / Procedures Referred By Flo viveros Referred To Contact Orthopaedics Diagnoses RIGHT KNEE TROUBLE Molina Herr MD [facility] [address] [place] [address] [facility] [address] [place] [phone] Referral ID Status Reason Start Date Expiration Date V isits Requested Visits Authorized [id number] Closed Consult, [facility] PCP Updated and/or Approved 12/19/2020 12/19/2021 99 [phone] Encounter Details Date Type Department Care Team (Latest Contact Info) Description 02/04/2021 2:40 PM EST Office [place] [address] Clinic, Dr Fuchs Team None Primary osteoarthritis of both knees Social History Tobacco Use Types Packs/Day Years [...] Sign Reading Time Taken Comments Blood Pressure 153/90 02/04/2021 2:04 PM EST Pulse 67 02/04/2021 2:04 PM EST Temperature - - Respiratory Rate - - Oxygen Saturation - - Inhaled Oxygen Concentration - - Weight 81.6 kg (180 lb) 02/04/2021 2:04 PM EST Height 175.3 cm (5' 9) 02/04/2021 2:04 PM EST Body Mass Index 26.58 02/04/2021 2:04 PM EST documented in this encounter Progress Notes * Abelino Marc MD - 02/04/2021 2:40 PM EST Images from the original note were not included. Department of Orthopaedics Division of Adult Joint Reconstructive Surgery CHIEF COMPLAINT: Chief Complaint Patient presents with ??? Establish Care Bilat knee pain ARTHROPLASTY HISTORY/PREVIOUS KNEE SURGERY: 1. Right knee arthroscopy 1988 Perfecto was referred from Molina Herr MD [facility] [address] [place] [address] I.D.: Perfecto Polk is a 80 y.o. year old male being seen today to discuss his bilateral knee pain. he notes the right knee is more symptomatic. His history and physical exam were reviewed in detail. He states the knee has been symptomatic for years. The pain is predominantly medial. There was not inciting trauma/injury. He does not describe hip pain. He says that the pain is aggravated when he rides his bicycle, especially if he is pulling hard when outside. He has had the right knee injected 1 time. This was helpful for months. He has not done physical therapy QUESTIONNAIRE RESPONSES: General Health, Prior Treatments, PreExisting Condition, Health Habits, About You 02/02/2021 PROMIS-10 General Health Excellent PROMIS-10 Quality of Life Excellent PROMIS-10 Physical Health Very Good PROMIS-10 Mental Health Excellent PROMIS-10 Social Activity Excellent PROMIS-10 Everyday Activities Mostly PROMIS-10 Pain 3 PROMIS-10 Fatigue Mild PROMIS-10 Social Roles Excellent PROMIS-10 Anxious or Depressed Never PROMIS PHYSICAL SCORE (range 16-68) 50.8 PROMIS MENTAL SCORE (range 21-68) 67.6 Treatments Tried Regular exercise, Over the counter anti-inflammatory drugs (e.g Advil, Aspirin, Aleve), Injection of steroids or cortisone, Prior surgery for this problem Prior Surgery Arthroscopic surgery of right knee to remove loose cartilage. Performed in 1988. KOOS JR Scores 68.28 TKA Grade 4 Alzheimers or dementia No Cirrohosis or liver disease No HIV/AIDS No Pain in more than one joint in legs Yes Back or neck pain - Heart attack No Heart failure No Unclog/bypass leg arteries No Stroke, blood clot, TIA No Asthma No Emphysema, chronic bronchities, or COPD No Stomach ulcers/peptic ulcer disease No Diabetes No Poor kidney function No Rheumatic condtions No Cancer No Weight (lbs) 180 Height (feet) 5 feet Height (Inches) 9 BMI 26.58 (Overweight) Ever used tobacco products Yes Tobacco frequency Never WHO - Tobacco Advice 0 (You are at low risk of health and other problems from your current pattern of use.) Ever used alcoholic beverages Yes Alcohol frequency Daily or almost daily WHO - Alcohol Advice 6 (You are at risk of health and other problems from your current pattern of alcohol use.) Live Alone No Marital situation Living with significant other Schooling More than 4 - year college Combined Household Income $75,000 or more # People Supported 1 Liberian, , No, not Liberian// Race White Health Literacy Extremely Currently working No Not working because: Retired [facility] Response 02/02/2021 KOOS JR Scores 68.28 OSWESTRY DISABILITY INDEX - Spine [facility] Response 02/02/2021 Oswestry (KHUSHI) Score - KOOS JR Scores 68.28 Hoos/Koos Jr 02/02/2021 KOOS JR SCORING 68.28 Degree of difficutly: Knee stiffness in morning Moderate Degree of difficutly: Twisting/pivoting on knee None Degree of difficutly: Strightening knee fully Moderate Degree of difficutly: Going up or down stairs Moderate Degree of difficutly: Standing upright None Degree of difficutly: Rising from sitting Mild Degree of difficutly: Bending to floor/continuous pickling line pickler helper object None ALLERGIES Allergies Allergen Reactions ??? Penicillins Hives SOCIAL HISTORY: reports that he has never smoked. He has never used smokeless tobacco. He reports current alcohol use of about 3.0 standard drinks of alcohol per week. He reports that he does not usedrugs. 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 Lumbar degenerative disc disease M51.36 ??? Osteomyelitis M86.9 ??? Primary osteoarthritis of left knee (DJD) M17.12 ??? Acute appendicitis K35.80 VITALS: BP Readings from Last 1 Encounters: 02/04/21 153/90 Pulse Readings from Last 1 Encounters: 02/04/21 67 Height: 175.3 cm (5' 9) Weight: 81.6 kg (180 lb) Body mass index is 26.58 kg/m??. PHYSICAL EXAM: Constitution: Perfecto Polk sits in the clinic today alert, appears stated age and cooperative. He is alert and oriented. I have made the following determinations: Knee Exam: Right Prior surgery on this joint: Yes Knee ROM: Extension:0 Flexion: 120 Alignment: 0-4 degrees Neutral Stability: A/P Translation <5mm. Varus (lateral stability) [...] this joint: No Knee ROM: Extension:0 Flexion: 120 Alignment: 0-4 [...] ASSESSMENT AND PLAN: Mr. Polk is a 80 y.o. year old male with severe osteoarthritis [...] -Diabetes with hemoglobin A1C > 7.5: No We had a discussion about operative and nonoperative measures. At this point, he would like to begin with a more aggressive anti-inflammatory regimen. He does have an appointment with the [employer] to work on lower extremity strengthening. And is very reasonable. If he would like a referralto physical therapy, he will call our office so that we can furnish him with 1. If he would like toarrange for repeat injection into his knee, he will call and arrange an appointment. If none of this is helpful, I think he be an ideal candidate for total joint replacement and we can see him for surgical consultation when it is convenient for him. Abelino Marc MD * Yohana Fuchs MD - 02/04/2021 2:40 PM EST I saw and evaluated the patient. I was integral in formulating the plan as outlined. YOHANA FUCHS MD documented in this encounter Plan of Treatment Upcoming Encounters Date Type Department Care Team (Late st Contact Info) Description 10/27/2023 11:15 AM EDT Office Visit Palliative Medicine at [place] [address] Elly Alston MD [facility] DR HOSP[place] [address] 10/27/2023 1:00 PM EDT Office Visit Speech Therapy at [place] [address] Debra Franco, STEEL POST INSTALLER 11/03/2023 2:00 PM EDT Office Visit Speech Therapy at [place] [address] Debra Franco, STEEL POST INSTALLER 11/08/2023 2:30 PM EDT Appointment MRI at [place] [address] Navjot Grider MD [facility] [place] [address] 11/09/2023 1:45 PM EDT Office Visit Hematology and Oncology at [place] [address] Isabell Jacob MD [facility] [place] [address] 11/11/2023 10:30 AM EDT Office Visit Radiation Oncology at [place] [address] Nicki Sharpe MD [facility] [place] [address] 11/15/2023 10:00 AM EDT Office [place] [address] Debra Franco, STEEL POST INSTALLER 11/16/2023 9:00 AM EDT Office Visit H[place]ology [place] [address] Bisi Nam 11/22/2023 10:00 AM EDT Office [place] [address] Debra Franco, ROLANDO 11/30/2023 9:00 AM EDT Office Visit Hematology [place] [address] Bisi Nam 12/14/2023 9:00 AM EDT Office Visit Hematology [place] [address] Bisi Nam 12/28/2023 9:00 AM EDT Office Visit Hematology [place] [address] Bisi Nam documented as of this encounter Visit Diagnoses Diagnosis Primary osteoarthritis of both knees Primary localized osteoarthrosis, lower leg documented in this encounter Care Teams Cesspool Cleaner Relationship Specialty Start Date End Date Molina Herr MD [facility] [address] [place] [address] PCP - General 01/27/10 documented as of this encounter
--- OUTSIDE RECORDS SUMMARY | 2023-10-17 15:11 | XMS_ITS | Encounter Summary ---
Author Organization [facility] Address [facility] [place] [address] Care Team Providers Care Wired Sweatband Cutter Name Role Phone Molina Herr MD Primary Care Provider [phone] Encounter Details Date Type Department Care Team (Latest Contact Info) Description 06/11/2021 10:26 AM EDT - 06/11/2021 1:05 PM EDT Hospital Encounter [place] [address] Guerda Coombs MD [facility] [address] Discharge Disposition: Home Social History Tobacco Use [...] Sign Reading Time Taken Comments Blood Pressure 135/87 06/11/2021 12:45 PM EDT Pulse 63 06/11/2021 12:08 PM EDT Temperature 36.4 ??C (97.6 ??F) 06/11/2021 10:57 AM E DT Respiratory Rate 16 06/11/2021 12:45 PM EDT Oxygen Saturation 95% 06/11/2021 12:45 PM EDT Inhaled Oxygen Concentration - - Weight 81.6 kg (180 lb) 06/11/2021 10:57 AM EDT Height 175.3 cm (5' 9) 06/11/2021 10:57 AM EDT Body Mass Index 26.58 06/11/2021 10:57 AM EDT documented in this encounter Discharge Instructions * Attachments The following attachments cannot be sent through Care Everywhere. * EGD (Upper Endoscopy): Post-op ([place]) documented in this encounter Medications at Time of Discharge Medication Sig Dispensed Refills Start Date End Date omeprazole (PRILOSEC) 20 mg Capsule, Delayed Release(E.C.) Take 20 mg by mouth daily. 4 03/08/2014 dynnpekogdqch-RO-wpxw (SOURCE CF) 200-10 mcg-mg Chew Take 1 [...] AM EDT Office Visit Palliative Medicine at [place] [address] Elly Alston MD [facility] HOSPICE AND [place] [address] 10/27/2023 1:00 PM EDT Office Visit Speech Therapy at [place] [address] Debra Franco, RUBBER GOODS ASSEMBLER 11/03/2023 2:00 PM EDT Office Visit Speech Therapy at [place] [phone] Debra Franco, RUBBER GOODS ASSEMBLER 11/08/2023 2:30 PM EDT Appointment MRI at [place] [address] Navjot Grider MD [facility] H[place]ATOLOGY [place] [address] 11/09/2023 1:45 PM EDT Office Visit Hematology and Oncology at [place] [phone] Isabell Jacob MD [facility] [place] [address] 11/11/2023 10:30 AM EDT Office Visit [place] [address] Nicki Sharpe MD [facility] [place] [address] 11/15/2023 10:00 AM EDT Office Visit [place] [address] Debra Franco, RUBBER GOODS ASSEMBLER 11/16/2023 9:00 AM EDT Office Visit Hematology [place] [address] Bisi Nam 11/22/2023 10:00 AM EDT Office Visit [place] [address] Debra Franco, RUBBER GOODS ASSEMBLER 11/30/2023 9:00 AM EDT Office Visit Hematology [place] [address] Bisi Nam 12/14/2023 9:00 AM EDT Office Visit Hematology [place] [address] Bisi Nam 12/28/2023 9:00 AM EDT Office Visit Hematology [place] [address] Bisi Nam documented as of this encounter Procedures Procedure Name Priority Date/Time Associated Diagnosis Comments Upper GI Endoscopy, Diagnostic (37964) 06/11/2021 11:51 AM EDT EGD, failure after treatment, peptic ulcer UPPER GI ENDOSCOPY Routine 06/11/2021 11 :37 AM EDT documented in this encounter Results * UPPER GI ENDOSCOPY (06/11/2021 11:37 AM EDT) UPPER GI ENDOSCOPY [facility] Endoscopy ___ Procedure Date: 06/11/2021 11:37 AM ? Patient Name: Perfecto Polk ? N: [id number] ? Date of : 1940 ? Age: 80 ? Order #: [id number] ? Instrument Name: [id number] ? ___ Procedure: ? Upper GI endoscopy Indications: ? Epigastric abdominal pain, ? Follow-up of gastro-esophageal ? reflux disease Providers: ? Guerda Coombs MD, Daria Fontanez, ? Francisco Francois, Mental Health Specialist Referring MD: ?Molina Herr MD Medicines: ? [...] 1115 (Due)1151 (New Bag - Provider: Daria Fontanez RN) PRN Medication Order 06/09/2021 06/10/2021 06/11/2021 fentaNYL (pf) (50 mcg/mL) multi-dose injection (CANCELED) ONCE PRN, Starting on Debbie 06/11/21 at 1157, Until Debbie 06/11/21 at 1506, Intra-Operative (Intra-Procedure), Routine 1157 (Given - Provid er: Daria Fontanez RN)1159 (Given - Provider: Daria Fontanez RN)1204 (Given - Provider: Daria Fontanez, RN) midazolam (pf) (Versed) (1 mg/mL) multi-dose injection (CANCELED) ONCE PRN, Starting on Debbie 06/11/21 at 1157, Until Debbie 06/11/21 at 1506, Intra-Operative (Intra-Procedure), Routine 1157 (Given - Provid er: Daria Fontanez RN)1159 (Given - Provider: Daria Fontanez RN)1203 (Given - Provider: Daria Fontanez, OSCAR)1205 (Given - Provider: Daria Fontanez, RN) documented in this encounter Care Teams Wired Sweatband Cutter Relationship Specialty Start Date End Date Molina Herr MD [facility] [address] [place] [address] PCP - General 01/27/10 documented as of this encounter
--- OUTSIDE RECORDS SUMMARY | 2023-10-17 15:11 | XMS_ITS | Encounter Summary ---
Author Organization [facility] [place] [address] Care Team Providers Care Pit Boss Name Role Phone Molina Herr MD Primary Care Provider [phone] Reason for Visit * Reason Onset Date Comments Knee Pain 01/28/2021 xr order for adriana t Encounter Details Date Type Department Care Team (Late st Contact Info) Description 01/28/2021 Telephone [place] [address] Blair Bhat, RMSigifredo Knee Pain (xr order for appt) Social History Tobacco Use Types Packs/Day Years [...] AM EDT Office [place] [address] Elly Alston MD [facility] HOSPICE AND PALLIATIVE MEDICINE [place] [phone] 10/27/2023 1:00 PM EDT Office Visit Speech Therapy at [address] Debra Franco, ACCOUNTING SUPPORT SPECIALIST 11/03/2023 2:00 PM EDT Office Visit Speech Therapy at [place] [phone] Debra Franco, ACCOUNTING SUPPORT SPECIALIST 11/08/2023 2:30 PM EDT Appointment MRI at [address] Navjot Grider MD [facility] [address] [place] [address] 11/09/2023 1:45 PM EDT Office Visit Hematology and Oncology at [place] [address] Isabell Jacob MD [facility] [place] [address] 11/11/2023 10:30 AM EDT Office Visit Radiation Oncology at [place] [address] Nicki Sharpe MD [facility] [place] [address] 11/15/2023 10:00 AM EDT Office Visit Speech Therapy at [place] [phone] Debra Franco, ACCOUNTING SUPPORT SPECIALIST 11/16/2023 9:00 AM EDT Office Visit Hematology and Oncology at [place] [phone] Bisi Nam 11/22/2023 10:00 AM EDT Office Visit Speech Therapy at [place] [phone] Debra Franco, ACCOUNTING SUPPORT SPECIALIST 11/30/2023 9:00 AM EDT Office Visit Hematology [place] [address] Bisi Nam 12/14/2023 9:00 AM EDT Office Visit Hematology [place] [address] Bisi Nam 12/28/2023 9:00 AM EDT Office Visit Hematology [place] [address] Bisi Nam documented as of this encounter Results * XR Knee 1-2 [...] who have questions please contact the health rn progressive care that requested your imaging first. ? Narrative 02/04/2021 2:02 PM EST EXAMINATION: XR [...] patients who have questions please contactthe health rn progressive care that requested your imaging first. Electronically signed by: Deepa Nazario MD, [facility]([phone]), at 02/04/2021 2:02 PM Ernie Fuchs MD IMG DX ORDERABLES documented in this encounter Visit Diagnoses Diagnosis Pain in both knees, unspecified chronicity Pain in both knees, unspecified chronicity documented in this encounter Care Teams Pit Boss Relationship Specialty Start Date End Date Molina Herr MD [facility] [address] [place] [address] PCP - General 01/27/10 documented as of this encounter
--- OUTSIDE RECORDS SUMMARY | 2023-10-17 15:11 | XMS_ITS | Encounter Summary ---
[place] [address] Care Team Providers Care Printing Assistant Name Role Phone Molina Herr MD Primary Care Provider [phone] Reason for Referral * Diagnostic Test (Routine) - Closed Specialty Diagnoses / Procedures Referred By Contac t Referred To Contact Diagnoses Carotid bruit, unspecified laterality Procedures Carotid Duplex, Bilateral Galen Gil APRN [facility] [place] [address] [facility] [address] [place] [id number] Referral ID Status Reason Start Date Expiration Date V isits Requested Visits Authorized [id number] Closed Specialty Service Requested 10/01/2022 10/01/2023 1 1 Encounter Details Date Type Department Care Team (Late st Contact Info) Description 10/01/2022 Orders Only [place] [address] Galen Gil APRN [facility] [place] [address] Carotid bruit, unspecified laterality Social History Tobacco [...] AM EDT Office Visit Palliative Medicine at [place] [address] Elly Alston MD [facility] HOSPICE [place] [address] 10/27/2023 1:00 PM EDT Office Visit Speech Therapy at [place] [address] Debra Franco, SOILS TECHNICIAN 11/03/2023 2:00 PM EDT Office Visit Speech Therapy at [place] [address] Debra Franco, SOILS TECHNICIAN 11/08/2023 2:30 PM EDT Appointment MRI at [place] [address] Navjot Grider MD [facility] [place] [address] 11/09/2023 1:45 PM EDT Office Visit Hematology and Oncology at [place] [address] Isabell Jacob MD [facility] [place] [address] 11/11/2023 10:30 AM EDT Office Visit Radiation Oncology at [place] [address] Nicki Sharpe MD [facility] [place] [address] 11/15/2023 10:00 AM EDT Office Visit Speech Therapy at [place] [address] Debra Franco, SOILS TECHNICIAN 11/16/2023 9:00 AM EDT Office Visit Hematology [place] [address] Bisi Nam 11/22/2023 10:00 AM EDT Office [place] [address] Debra Franco, SOILS TECHNICIAN 11/30/2023 9:00 AM EDT Office Visit Hematology [place] [address] Bisi Nam 12/14/2023 9:00 AM EDT Office Visit Hematology [place] [address] Bisi Nam 12/28/2023 9:00 AM EDT Office Visit Hematology [place] [address] Bisi Nam documented as of this encounter Results * Carotid Duplex, Bilateral (11/19/2022 8:03 AM EDT) VB Text Report Department: Vascular Surgery Lab Patient: [id number] (CHON POLK) CPT: 54799 Referring Physician: GALEN GIL ?? Phone: Indications: [...] laterality documented in this encounter Care Teams Printing Assistant Relationship Specialty Start Date End Date Molina Herr MD [facility] [address] [place] [address] PCP - General 01/27/10 documented as of this encounter
--- OUTSIDE RECORDS SUMMARY | 2023-10-17 15:11 | XMS_ITS | Encounter Summary ---
Author Organization [facility] Address [facility] [place] [address] Care Team Providers Care Director Of Catering Sales Name Role Phone Molina Herr MD Primary Care Provider Reason for Referral * Consultation (Urgent) - Closed Specialty Diagnoses / Procedures Referred By Contac t Referred To Contact Orthopaedics Diagnoses Rupture of Achilles tendon, unspecified laterality, initial encounter Molina Herr MD [facility] [address] [place] [address] Danuta Alvarez MD [facility] [place] [address] Referral ID Status Reason Start Date Expiration Date V isits Requested Visits Authorized [id number] Closed Consult, Test & Treat PCP Updated and/or Approved 09/30/2022 09/30/2023 6 6 Encounter Details Date Type Department Care Team (Latest Contact Info) Description 09/30/2022 Transcribe Orders eDH Incoming Referrals [phone] Molina Herr MD [facility] [address] [place] [address] Rupture of Achilles tendon, unspecified laterality, initial encounter Social History Tobacco Use Types [...] Office Visit Palliative Medicine at [place] [address] Elly Alston MD [facility] HOSPICE [place] [address] 10/27/2023 1:00 PM EDT Office Visit Speech Therapy at [place] [address] Debra Franco, FORMING AND ASSEMBLING SUPERVISOR 11/03/2023 2:00 PM EDT Office Visit Speech Therapy at [place] [address] Debra Franco, FORMING AND ASSEMBLING SUPERVISOR 11/08/2023 2:30 PM EDT Appointment MRI at [place] [address] Navjot Grider MD [facility] [place] [address] 11/09/2023 1:45 PM EDT Office Visit Hematology and Oncology at [place] [address] Isabell Jacob MD [facility] [place] [address] 11/11/2023 10:30 AM EDT Office Visit Radiation Oncology at [place] [address] Nicki Sharpe MD [facility] [place] [address] 11/15/2023 10:00 AM EDT Office Visit [place] [address] Debra Franco, FORMING AND ASSEMBLING SUPERVISOR 11/16/2023 9:00 AM EDT Office Visit Hematology [place] [address] Bisi Nam 11/22/2023 10:00 AM EDT Office Visit [place] [address] Debra Franco, FORMING AND ASSEMBLING SUPERVISOR 11/30/2023 9:00 AM EDT Office Visit Hematology [place] [address] Bisi Nam 12/14/2023 9:00 AM EDT Office Visit Hematology [place] [address] Bisi Nam 12/28/2023 9:00 AM EDT Office Visit Hematology [place] [address] Bisi Nam Scheduled Referrals Name Type Priority Associated Diagnoses Orde r Schedule Referral to Orthopaedics Outpatient Referral Urgent Rupture of Achilles tendon, unspecified laterality, initial encounter Ordered: 09/30/2022 documented as of this encounter Visit Diagnoses Diagnosis Rupture of Achilles tendon, unspecified laterality, initial encounter documented in this encounter Care Teams Director Of Catering Sales Relationship Specialty Start Date End Date Molina Herr MD [facility] [address] [place] [address] PCP - General 01/27/10 documented as of this encounter
--- OUTSIDE RECORDS SUMMARY | 2023-10-17 15:12 | XMS_ITS | Encounter Summary ---
Author Organization [facility] [place] [address] Care Team Providers Care Lotus Notes Administrator Name Role Phone Molina Herr MD Primary Care Provider [phone] Encounter Details Date Type Department Care Team (Late st Contact Info) Description 03/24/2017 Notes Only Audiology at [address] [address] Clarice Madrigal, AUD [facility] [place] [address] Social History Tobacco Use Types Packs/Day Years Used Date Smoking Tobacco: Never Smokeless Tobacco: Never Alcohol Use Standard Drinks/Week Comments Yes 0 (1 standard drink = 0.6 oz pur e alcohol) occasional Sex and Gender Information Value Date Recorded Sex Assigned at Male 02/02/2021 9:04 PM EST Gender Identity Male 02/02/2021 9:04 PM EST Sexual Orientation Not on file documented as of this encounter Progress Notes * Clarice Madrigal - 03/24/2017 11:33 AM EST AUDIOLOGY SECTION Perfecto Polk was seen in the walk-in clinic reporting the following: ?? He would like a replacement retention tail on his right hearing aid. His previous retention taildid not mold well to the shape of his ear and he ultimately removed it. The following actions were taken: ?? Replaced retention tail as requested. PLAN: Patient to contact clinic if new concerns regarding changes in hearing or amplification management needs arise. Otherwise, return as per managing display coordinator for routine audiologic evaluation and hearing aid management. HEARING AID(S): HEARING AID RIGHT LEFT Make/Model/Style Oticon Opn 3 miniRITE Oticon Opn 3 miniRITE Casing Color 92 (ann) 92 (ann) Serial Number [id number] (new-replacement) [id number] (old) Battery Size 312 312 Invoice number / date [id number] 10/27/16 [id number] 10/27/16 PROGRAM/SETTINGS ? Fitting Algorithm DSL 5a DSL 5a Verification Method REM, RECD REM, RECD Programs Normal Speech in noise Music Comfort Normal Speech in noise Music Comfort Disabled Features ? Other ? HEARING AID WARRANTY ? Original Fit Date 11/11/16 11/11/16 Current Status 11/28/19 11/28/19 (repair only) EARMOLD (if BTE POLLARD) ? Lab ? Earmold / Slim tube / ANIBAL specifics Length cord= 2 60 Medium open dome Length cord= 2 60 Medium open dome Impression Date ? Invoice # ? ACCESSORIES ? Make/Model ? Color ? Serial Number ? Warranty date ? Invoice number/date ? documented in this encounter Plan of Treatment Upcoming Encounters Date Type Department Care Team (Late st Contact Info) Description 10/27/2023 11:15 AM EDT Office [place] [address] Elly Alston MD [facility] [address] HOSPICE AND [place] [address] 10/27/2023 1:00 PM EDT Office [place] [address] Debra Franco, ROLANDO 11/03/2023 2:00 PM EDT Office Visit Speech Therapy at [place] [phone] Debra Franco, SR. PRICING ANALYST 11/08/2023 2:30 PM EDT Appointment MRI at [place] [address] Navjot Grider MD [facility] DR [place] [address] 11/09/2023 1:45 PM EDT Office Visit Hematology and Oncology at [place] [address] Isabell Jacob MD [facility] [place] [address] 11/11/2023 10:30 AM EDT Office Visit Radiation Oncology at [place] [phone] Nicki Sharpe MD [facility] [place] [address] 11/15/2023 10:00 AM EDT Office [place] [address] Debra Franco, ROLANDO 11/16/2023 9:00 AM EDT Office Visit Hematology [place] [address] Bisi Nam 11/22/2023 10:00 AM EDT Office [place] [address] Debra Franco, ROLANDO 11/30/2023 9:00 AM EDT Office Visit Hematology [place] [address] Bisi Nam 12/14/2023 9:00 AM EDT Office Visit [place]ematology [place] [address] Bisi Nam 12/28/2023 9:00 AM EDT Office Visit [place]ematology [place] [address] Bisi Nam documented as of this encounter Visit Diagnoses Not on filedocumented in this encounter Care Teams Lotus Notes Administrator Relationship Specialty Start Date End Date Molina Herr MD [facility] [address] [place] [address] PCP - General 01/27/10 documented as of this encounter
--- OUTSIDE RECORDS SUMMARY | 2023-10-17 15:12 | XMS_ITS | Encounter Summary ---
[place] [address] Care Team Providers Care Ranch Hand Name Role Phone Molina Herr MD Primary Care Provider [phone] Reason for Visit * Auth/Cert Specialty Diagnoses / Procedures Referred By Flo t Referred To Contact Diagnoses Acute appendicitis Acute Appendicitis Procedures LAPAROSCOPIC APPENDECTOMY (WRVU 9.45) Referral ID Status Reason Start Date Expiration Date Visits Re quested Visits Authorized [id number] 1 1 Encounter Details Date Type Department Care Team (Late st Contact Info) Description 03/09/2017 7:32 AM EST Anesthesia Event [place] [address] Christopher Briseno MD [facility] [place] [address] Justino Gonzales MD [facility] [place] [address] Anesthesia Record Procedure Summary Procedure Name Responsible Anesthesiologist Anesthesia Start Time Anesthesia Stop Time LAPAROSCOPIC APPENDECTOMY (WRVU 9.45) (Abdomen) Christopher Briseno MD 03/09/17 0732 03/09/17 0914 Events Date Time Event Comment 03/09/2017 0721 0732 AN Verify 0732 Start 0737 An Start Data 0743 An Induction 0746 An Intubation 0751 Anesthesia Ready 0806 Procedure Start 0907 Extubation/LMA Out 0909 an stop data 0914 Recovery or ICU Handoff Janel ent care was transferred to the destination unit staff after review of the patient's medical history, current anesthetic/surgical status and plan, according to the Provider Handoff Checklist. 0914 Stop Meds Name Total Midazolam 2 mg fentaNYL 100 mcg IV Lidocaine 80 mg Propofol 150 mg Rocuronium 50 mg ePHEDrine 5 mg Ondansetron 8 mg Dexamethasone 4 mg Neostigmine 4 mg Glycopyrrolate 0.8 mg ciprofloxacin (CIPRO) 200mg in dextrose 5% 100mL 400 mg metroNIDAZOLE (FLAGYL) 500 mg in sodium chloride 0.9% 100 mL 500 mg Lactated Ringers 800 mL * Agents Name O2 Air N2O Sevoflurane (et) Isoflurane (et) * Blood No blood administrations on file. Lines, Drains, and Airways Type Details Placement Removal (RETIRED) Peripheral IV Line - Single Lumen 03/08/17; 1400; 18 gauge; Right ; 03/09/17; 0920 03/08/17 1400 by Debi Wise RN 03/09/17 0920 by Marilynn Tilley RN ETT Mask Ventilation: Ea sy (1); ETT Type: Cuffed, Oral; ETT Size: 7.5 mm; Mac Blade: 4; Notes: Asleep, Pre-O2, Cricoid Pressure, Stylette; Attempts: 2; Laryngoscopy Grade: 1; ETT Placement Verified By: Auscultation, Capnometry, Visual; Secured at Teeth: 22 cm; Inserted by: Zeeshan Rock; Removal Date: 03/09/17; Removal Time: 90603/09/17 0747 by Ernie Rock CRNA 03/09/17 0907 by Ernie Rock CRNA (RETIRED) Peripheral IV Line - Single Lumen 03/09/17; 0752; metacarpal vein (top of hand), right; [id number] catheter system; 18 gauge; Zeeshan Rock; 03/09/17; 1443 03/09/17 0752 by Ernie Rock CRNA 03/09/17 1443 by Ginger Pat RN Urethral Catheter 03/09/17; 0803; Abdominal surgery; 18; 03/09/17 (Not present on return to floor); 0900 (Reported from PACU) 03/09/17 0803 by Maximiliano Kasper RN 03/09/17 0900 by Rolly Edge RN Incision 03/09/17; 0814; laparoscopic punctures (specify); 11/02/21 (LDA cleanup utility RA#[id number]); 1715 (LDA cleanup utility RA#[id number]) 03/09/17 0814 by Maximiliano Kasper RN 11/02/21 1715 by Bernard Correa documented in this encounter Social History Tobacco [...] OR Notes * Anesthesia Postprocedure Evaluation - Christopher Briseno MD - 03/09/2017 11:17 AM EST [facility] Department of Anesthesiology Post-procedure Note Patient: Perfecto Polk Procedure Summary Date Anesthesia Start Anesthesia Stop Room / Location 03/09/[address] [place] [id number] OR 20 / [facility] MAIN OR Procedure Diagnosis Surgeon Responsible Provider LAPAROSCOPIC APPENDECTOMY (WRVU 9.45) (N/A Abdomen) (Acute Appendicitis) Saurav Chen MD Evans, Rebecca E, MD All Anesthesia Providers: Anesthesiologist: Christopher Briseno MD FURNACE BUILDER: Ernie Rock CRNA Most Recent Vitals: 03/09/17 1031 BP: 130/77 Pulse: 72 Resp: 12 Temp: 36.9 ??C (98.4 ??F) SpO2: 98% Pain 5 (03/09/17 1020) Patient Location: PACU/[facility] Level of Consciousness: Awake and Alert Pain Management: Satisfactory Analgesia PONV: None Cardiovascular Status: At Baseline and Hemodynamically Stable Respiratory Status: At Baseline and Room Air Postoperative Fluid Status: Intravascular EUvolemia Possible Anesthetic Complications: NONE apparent at time of evaluation Final Primary Anesthesia Type: General (The anesthetic type performed was the same as planned.) Comments: CHRISTOPHER BRISENO MD * Anesthesia Preprocedure Evaluation - Christopher Briseno MD - 03/09/2017 6:27 AM EST Pre-Anesthesia Evaluation for: Perfecto Polk a 76 y.o. male. Procedure(s): LAPAROSCOPIC APPENDECTOMY (WRVU 9.45) Patient Active Problem List Diagnosis ??? Acute appendicitis ??? Primary osteoarthritis of left knee (DJD) ??? Osteomyelitis ??? Discitis of lumbar region ??? Lumbar degenerative disc disease Past Medical History: Diagnosis Date ??? Lumbar degenerative disc disease 08/21/2010 Past Surgical History: Procedure Laterality Date ??? PRO COLONOSCOPY, BIOPSY 01/10/2013 COLONOSCOPY FLEXIBLE, WITH BX performed by Dominick Earl MD at [facility] ENDOSCOPY Social History Substance Use Topics ??? Smoking status: Never Smoker ??? Smokeless tobacco: Never Used ??? Alcohol use Yes Comment: occasional History Drug Use No Allergies Allergen Reactions ??? Penicillins Hives Medications: MAR and/or home medications have been reviewed. Physical Exam: Most Recent Vitals: 03/09/17 0448 BP: 126/80 Pulse: 69 Resp: 16 Temp: 37.3 ??C (99.1 ??F) SpO2: 97% Body mass index is 25.14 kg/(m^2). Height: 177.8 cm (5' 10) Weight: 79.5 kg (175 lb 3.2 oz) Airway Assessment: Mallampati: I TM distance: >3 FB Neck ROM: full Cardiovascular Assessment: Rhythm: regular Rate: normal (+) murmur Pulmonary Assessment: breath sounds clear to auscultation pulmonary exam normal Dental Assessment: - normal exam Misc Assessment: Patient is wearing No contact(s). IV access: Peripheral line Anesthesia Plan: ASA 2 general, with a(n) intravenous induction 76 year old 80 kg male here for laparoscopic appendectomy. Medical history notable only for hypothyroidism. Generally healthy otherwise. No listed cardiac or pulmonary disease. Receiving IV cipro since admission to [facility]. Last ate yesterday AM, Per notes is not currently experiencing nausea/vomiting K: 3.9 Hives with penicillins No recent fever, cold, cough, chest pain, shortness of breath, seizure, or weakness. Patient can climb 2 flights of stairs. Plan: GA with ETT, RSI ASA monitors PIV access as needed Region - Other Informed Consent: Anesthetic plan and risks discussed with patient. Plan discussed with FURNACE BUILDER. PAT Staff Note documented in this encounter Plan of Treatment Upcoming Encounters Date Type Department Care Team (Late st Contact Info) Description 10/27/2023 11:15 AM EDT Office Visit Palliative Medicine at [place] [address] Elly Alston MD [facility] HOSPICE [place] [address] 10/27/2023 1:00 PM EDT Office Visit Speech Therapy at [place] [address] Debra Franco, PROCUREMENT COST COORDINATOR 11/03/2023 2:00 PM EDT Office Visit Speech Therapy at [place] [address] Debra Franco, PROCUREMENT COST COORDINATOR 11/08/2023 2:30 PM EDT Appointment MRI at [place] [address] Navjot Grider MD [facility] [address] [place] [address] 11/09/2023 1:45 PM EDT Office Visit Hematology and Oncology at [place] [address] Isabell Jacob MD [facility] [place] [address] 11/11/2023 10:30 AM EDT Office Visit Radiation Oncology at [place] [phone] Nicki Sharpe MD [facility] [place] [address] 11/15/2023 10:00 AM EDT Office [place] [address] Debra Franco, PROCUREMENT COST COORDINATOR 11/16/2023 9:00 AM EDT Office Visit Hematology [place] [address] Bisi Nam 11/22/2023 10:00 AM EDT Office [place] [address] Debra Franco, PROCUREMENT COST COORDINATOR 11/30/2023 9:00 AM EDT Office Visit Hematology [place] [address] Bisi Nam 12/14/2023 9:00 AM EDT Office Visit Hematology [place] [address] Bisi Nam 12/28/2023 9:00 AM EDT Office Visit Hematology [place] [address] Bisi Nam documented as of this encounter Visit Diagnoses Not on filedocumented in this encounter Administered Medications Inactive Administered Medications - up to 3 most recent administrations Medication Order MAR Action Action Date Dose Rate Site ciprofloxacin (CIPRO) 200mg in dextrose 5% 100mL 200 mg, Intravenous, EVERY 12 HOURS, First dose (after last reorder) on Tue03/09/17 at 1200, Until Discontinued, Administer over 60 Minutes, Indication for (Active or Suspected): GI/Intra-abdominal, Restricted Antibiotic: Please indicate the most appropriate choice: Ordered from Emergency Department Given 03/09/2017 7:59 AM EST 400 mg dexamethasone (DECADRON) injection PRN, Starting on Tue03/09/17 at 0806, Until Tue03/09/17 at 0914, Anesthesia Intra-op, Routine Given 03/09/2017 8:06 AM EST 4 mg ePHEDrine 5 mg/mL multi-dose injection PRN, Starting on Tue03/09/17 at 0825, Until Tue03/09/17 at 0914, Anesthesia Intra-op, Routine Given 03/09/2017 8:25 AM EST 5 mg fentaNYL 50 mcg/mL multi-dose injection PRN, Starting on Tue03/09/17 at 0743, Until Tue03/09/17 at 0914, Pain, Anesthesia Intra-op, Routine Given 03/09/2017 8:10 AM EST 50 mcg Given 03/09/2017 7:43 AM EST 50 mcg glycopyrrolate (ROBINUL) multi-dose injection PRN, Starting on Tue03/09/17 at 0851, Until Tue03/09/17 at 09, Anesthesia Intra-op, Routine Given 03/09/2017 8:51 AM EST 0.8 mg lactated Ringers infusion CONTINUOUS PRN, Starting on Tue03/09/17 at 0732, Until Tue03/09/17 at 09, Anesthesia Intra-op New Bag 03/09/2017 7:32 AM EST lidocaine (PF) (XYLOCAINE) 100 mg/5 mL (2 %) injection PRN, Starting on Tue03/09/17 at 0743, Until Tue03/09/17 at 0914, Anesthesia Intra-op, Routine Given 03/09/2017 7:43 AM EST 80 mg metroNIDAZOLE (FLAGYL) 500 mg in sodium chloride 0.9% 100 mL 500 mg, Intravenous, EVERY 8 HOURS, First dose on Tue03/09/17 at 0630, Until Discontinued, Administer over 30 Minutes, Indication for (Active or Suspected): Prophylaxis Given 03/09/2017 8:14 AM EST 500 mg New Bag 03/09/2017 6:13 AM EST 500 mg 200 mL/hr midazolam (PF) (VERSED) 1 mg/mL multi-dose injection PRN, Starting on Tue03/09/17 at 0733, Until Tue03/09/17 at 0914, Sleep, Anesthesia Intra-op, Routine Given 03/09/2017 7:33 AM EST 2 mg neostigmine (BLOXIVERZ) injection PRN, Starting on Tue03/09/17 at 0851, Until Tue03/09/17 at 0914, Anesthesia Intra-op, Routine Given 03/09/2017 8:51 AM EST 4 mg ondansetron (ZOFRAN) injection PRN, Starting on Tue03/09/17 at 0806, Until Tue03/09/17 at 0914, Nausea, Anesthesia Intra-op, Routine Given 03/09/2017 8:06 AM EST 8 mg propofol (DIPRIVAN) 10 mg/mL bolus injection (Anesthesia) PRN, Starting on Tue03/09/17 at 0744, Until Tue03/09/17 at 0914, Anesthesia Intra-op Given 03/09/2017 7:44 AM EST 150 mg rocuronium (ZEMURON) multi-dose injection PRN, Starting on Tue03/09/17 at 0744, Until Tue03/09/17 at 0914, Anesthesia Intra-op, Routine Given 03/09/2017 7:45 AM EST 10 mg Given 03/09/2017 7:44 AM EST 40 mg documented in this encounter Care Teams Ranch Hand Relationship Specialty Start Date End Date Molina Herr MD [facility] [address] [place] [address] PCP - General 01/27/10 documented as of this encounter
--- OUTSIDE RECORDS SUMMARY | 2023-10-17 15:12 | XMS_ITS | Encounter Summary ---
Author Organization [facility] [place] [address] Care Team Providers Care Customs Compliance Specialist Name Role Phone Molina Herr MD Primary Care Provider [phone] Encounter Details Date Type Department Care Team (Latest Contact Info) Description 12/15/2018 3:20 PM EDT - 12/15/2018 11:59 PM EDT [place] [address] Discharge Disposition: Home Social History [...] 20 mg by mouth daily. 4 03/08/2014 [id number] (SOURCE CF) 200-10 mcg-mg Chew Take 1 [...] Take 1,000 Units by mouth daily. 07/28/2023 [place]-3 Fatty Acids-Vitamin E (FISH OIL) 1,000 mg Capsule Take 2,000 mg by mouth daily. 02/04/2021 aspirin 81 mg EC tablet Take 81 mg by mouth daily. 07/05/2023 documented as of this encounter Plan of Treatment Upcoming Encounters Date Type Department Care Team (Late st Contact Info) Description 10/27/2023 11:15 AM EDT Office Visit Palliative Medicine at [place] [phone] Elly Alston MD [facility] HOSPICE AND [place] [address] 10/27/2023 1:00 PM EDT Office Visit Speech Therapy at [address] Debra Franco, RECOVERY UNIT OPERATOR 11/03/2023 2:00 PM EDT Office Visit Speech Therapy at [place] [phone] Debra Franco, RECOVERY UNIT OPERATOR 11/08/2023 2:30 PM EDT Appointment MRI at [place] [phone] Navjot Grider MD [facility] [place] [address] 11/09/2023 1:45 PM EDT Office Visit Hematology and Oncology at [place] [address] Isabell Jacob MD [facility] [place] [address] 11/11/2023 10:30 AM EDT Office [place] [address] Nicki Sharpe MD [facility] [place] [address] 11/15/2023 10:00 AM EDT Office [place] [address] Debra Franco, RECOVERY UNIT OPERATOR 11/16/2023 9:00 AM EDT Office Visit Hematology [place] [address] Bisi Nam 11/22/2023 10:00 AM EDT Office [place] [address] Debra Franco, RECOVERY UNIT OPERATOR 11/30/2023 9:00 AM EDT Office Visit [place]ology [place] [address] Bisi Nam 12/14/2023 9:00 AM EDT Office Visit [place]ology [place] [address] Bisi Nam 12/28/2023 9:00 AM EDT Office Visit [place] [address] Bisi Nam documented as of this encounter Procedures Procedure Name Priority Date/Time Associated Diagnosis Comments HEMOGRAM Routine 12/15/2018 11:46 AM EDT DIFFERENTIAL, AUTOMATED Routine 12/15/2018 11:46 AM EDT GOLD TUBE HOLD Routine 12/15/2018 11:46 AM EDT TSH Routine 12/15/2018 11:46 AM EDT T4, FREE Routine 12/15/2018 11:46 AM EDT PSA (ULTRASENSITIVE) Routine 12/15/2018 11:46 AM EDT LDL CHOLESTEROL, DIRECT Routine 12/15/2018 11:46 AM EDT HDL/CHOL PROFILE Routine 12/15/2018 11:4 6 AM EDT COMPREHENSIVE METABOLIC PANEL Routine 12/15/2018 11:46 AM EDT documented in this encounter Results * Gold Tube HOLD (12/15/2018 11:46 AM EDT) Gold Hold Sample in lab. [facility] Blood specimen (specimen) No Charge / Unknown 12/15/2018 11:46 AM EDT 12/15/2018 4:09 PM EDT Molina Herr MD CHEMISTRY ORDERABLES [facility] [place] [address] * PSA (12/15/2018 11:46 AM EDT) Prostate Specific Antigen (Ultrasensitiv e) 1.14 0.00 - 4.00 ng/mL [facility] Blood specimen (specimen) Venous Draw / Unknown 12/15/2018 11:46 AM EDT 12/15/2018 4:05 PM EDT Narrative Resulting Agency Comment Spec In Lab Molina Herr MD CHEMISTRY ORDERABLES [facility] [place] [address] * TSH (12/15/2018 11:46 AM EDT) Thyroid Stimulating Hormone 3.32 0.27 - 4.20 mcIU/mL [facility] Blood specimen (specimen) Venous Draw / Unknown 12/15/2018 11:46 AM EDT 12/15/2018 4:05 PM EDT Narrative Resulting Agency Comment Spec In Lab Molina Herr MD CHEMISTRY ORDERABLES Performing Organization Address City/[facility] Co de Phone Number [facility] [place] [address] * T4, free (12/15/2018 11:46 AM EDT) Pathologist [facility] Free T4 1.31 0.93 - 1.70 ng/dL [facility] Blood specimen (specimen) Venous Draw / Unknown 12/15/2018 11:46 AM EDT 12/15/2018 4:05 PM EDT Narrative Resulting Agency Comment Spec In Lab Molina Herr MD CHEMISTRY ORDERABLES Performing Organization Address [facility] Co de Phone Number [facility] [place] [address] * Differential, Automated (12/15/2018 11:46 AM EDT) [facility] Neutrophil % 60.8 % [facility] Neutrophil Absolute 3.00 1.70 - 6.10 x10(3)/[facility] Lymph % 26.9 % [facility] Lymphocytes Abs 1.3 0.9 - 3.2 x10(3)/[facility] Monocyte % 9.1 % [facility] Monocyte Abs 0.4 0.3 - 0.9 x10(3)/[facility] Eos % 2.2 % [facility] Eosinophils Abs 0.1 0.0 - 0.4 x10(3)/[facility] Basophil % 0.8 % [facility] Baso Absolute 0.0 0.0 - 0.1 x10(3)/[facility] Immature Gran % 0.20 % [facility] Comment: Immature granulocytes(IG's)percentage and absolute count will include metamyelocytes, myelocytes, and promyelocytes. Blood smears from CBCs yielding IG's will be scanned manually for concordance. If this scan disagrees with the automated IG or if promyelocytes are noted, a manual differential will be performed. Immature Gran Absolute 0.01 0.00 - 0.04 x10(3)/mcL [facility] Blood specimen (specimen) Venous Draw / Unknown 12/15/2018 11:46 AM EDT 12/15/2018 4:06 PM EDT Narrative Resulting Agency Comment Spec In Lab Molina Herr MD HEMATOLOGY ORDERABLE S [facility] [place] [address] * (ABNORMAL) Hemogram (12/15/2018 11:46 AM EDT) White Blood Cell 4.9 4.0 - 9.5 x10(3)/mc L [facility] Red Blood Cell 4.71 4.58 - 5.54 x10(6)/mc L [facility] Hemoglobin 13.7 13.7 - 16.5 gm/dL [facility] Hematocrit 43.3 40.5 - 48.5 % [facility] Mean Cell Volume 91.9 82.9 - 93.1 fL [facility] Mean Cell Hemoglobin 29.1 27.5 - 32.1 pg [facility] Mean Cell Hemoglobin Concentration 31.6(L) 32.0 - 35.7 gm/dL [facility] Platelet 275 145 - 357 x10(3)/mc L [facility] RDW Standard Deviation 45.4(H) 36.0 - 45.0 fL [facility] RDW coefficient of variation 13.3 11.4 - 13.8 % [facility] Mean Platelet Volume 10.3 7.6 - 12.9 fL [facility] NRBC% auto 0.0 % [facility] NRBC Absolute 0.000 0.000 - 0.000 x10(3)/mc L [facility] Blood specimen (specimen) Venous Draw / Unknown 12/15/2018 11:46 AM EDT 12/15/2018 4:06 PM EDT Narrative Resulting Agency Comment Spec In Lab Molina Herr MD HEMATOLOGY ORDERABLE S [facility] [place] [address] * HDL/Cholesterol Profile (12/15/2018 11:46 AM EDT) Cholesterol, Total 176 mg/dL [facility] Comment: Lower Risk: <200 mg/dL Average Risk: 200-239 mg/dL Higher Risk: >ng=732 mg/dL HDL Cholesterol 52 mg/dL [facility] Comment: Males: ?? Higher Risk: <40 mg/dL Females: ?? HIgher Risk: <50 mg/dL Cholesterol/HDL Ratio 3.4 ratio [facility] Chol/HDL Interpretation See Note [facility] Comment: Lipid management should be guided by a patient? s ASCVD risk, goals and preferences. ACC/AHA Guidelines recommend high intensity statin if clinical ASCVD or LDL greater than or equal to 190 mg/dL. http://[employer].com/LQR-CPE-Uffbteoys Measure LDL if Total Cholesterol minus HDL Cholesterol is greater than 220 mg/dL. Adults aged 40-75 with LDL 70-189 mg/dL should have their 10 year ASCVD risk estimated with the ACC/AHA ASCVD risk iap displays analyst http://tools.acc.org/ENJSK-Yobv-Jsfhlyvkn/ Statin should be discussed if risk greater than or equal to 7.5% in non-diabetics. With diabetes, moderate intensity statin is recommended if risk less than 7.5%, high intensity if risk greater than or equal to 7.5%. Annual lipid monitoring on statins is not necessary. Lifestyle modification is a critical component of ASCVD risk reduction. Blood specimen (specimen) Venous Draw / Unknown 12/15/2018 11:46 AM EDT 12/15/2018 4:05 PM EDT Narrative Resulting Agency Comment Spec In Lab Molina Herr MD CHEMISTRY ORDERABLES Performing Organization Address [facility] Co de Phone Number [facility] [place] [address] * LDL Cholesterol, Direct (12/15/2018 11:46 AM EDT) LDL Cholesterol, Direct 124 mg/dL [facility] Comment: Lowest Risk: <100 mg/dL Lower Risk: 100-129 mg/dL Borderline High Risk: 130-159 mg/dL High Risk: 160-189 mg/dL Very High Risk: >wv=849 mg/dL Blood specimen (specimen) Venous Draw / Unknown 12/15/2018 11:46 AM EDT 12/15/2018 4:05 PM EDT Narrative Resulting Agency Comment Spec In Lab Molina Herr MD CHEMISTRY ORDERABLES Performing Organization Address [facility] Co de Phone Number [facility] [place] [address] * (ABNORMAL) Comprehensive metabolic panel (non-fasting) (12/15/2018 11:46 AM EDT) Glucose 97 65 - 199 mg/dL [facility] Comment:Diabetes: >=200 mg/d L plus symptoms Blood Urea Nitrogen 24(H) 10 - 20 mg/dL [facility] Creatinine 1.18 0.80 - 1.50 mg/dL [facility] Sodium 140 135 - 145 mmol/L [facility] Potassium 4.1 3.5 - 5.0 mmol/L [facility] Comment: Please note: ??Patients with WBC >100,000 may have falsely elevated Potassium levels. ??For accurate Potassium quantification in these patients send serum separator tube (gold top) for subsequent determinations. ??Contact the Clinical Chemistry Laboratory if there are any questions. Chloride 103 98 - 107 mmol/L [facility] Carbon Dioxide 25 22 - 31 mmol/L [facility] Anion Gap 12 5 - 15 mmol/L [facility] Calcium 9.5 8.5 - 10.5 mg/dL [facility] Protein, Total 7.2 6.1 - 8.0 gm/dL [facility] Albumin 4.1 3.2 - 5.2 gm/dL [facility] Aspartate Aminotransferase 19 0 - 39 unit/L [facility] Alanine Aminotransferase 11 0 - 55 unit/L [facility] Alkaline Phosphatase 54 40 - 130 unit/L [facility] Bilirubin, Total 0.4 0.2 - 1.3 mg/dL [facility] Est Glomerular Filtration Rate 60 >=60 mL/min/1. 73 m?? [facility] Comment: The eGFR was calculated using the CKD-EPI equation. As with all creatinine based estimates of kidney function, eGFR values calculated with the CKD-EPI equation are not accurate in patients with acute kidney failure, extremes of body mass or the acutely ill. http://[employer]/[facility] NORMANnkf eGFR 69 >=60 mL/min/1. 73 m?? [facility] Comment: The eGFR was calculated using the CKD-EPI equation. As with all creatinine based estimates of kidney function, eGFR values calculated with the CKD-EPI equation are not accurate in patients with acute kidney failure, extremes of body mass or the acutely ill. [email or web address] Blood specimen (specimen) Venous Draw / Unknown 12/15/2018 11:46 AM EDT 12/15/2018 4:05 PM EDT Narrative Resulting Agency Comment Spec In Lab Molina Herr MD CHEMISTRY ORDERABLES [facility] [place] [address] documented in this encounter Visit Diagnoses Not on filedocumented in this encounter Care Teams Customs Compliance Specialist Relationship Specialty Start Date End Date Molina Herr MD [facility] [address] [place] [id number] PCP - General 01/27/10 documented as of this encounter
--- OUTSIDE RECORDS SUMMARY | 2023-10-17 15:12 | XMS_ITS | Encounter Summary ---
Author Organization [facility] [place] [address] Care Team Providers Care Client Relations Associate Name Role Phone Molina Herr MD Primary Care Provider [phone] Encounter Details Date Type Department Care Team (Latest Contact Info) Description 12/19/2019 11:36 AM EDT - 12/19/2019 11:59 PM [place] [address] Discharge Disposition: Home Social History [...] 20 mg by mouth daily. 4 03/08/2014 [id number] (SOURCE CF) 200-10 mcg-mg Chew Take 1 [...] Take 1,000 Units by mouth daily. 07/28/2023 Jackson-3 Fatty Acids-Vitamin E (FISH OIL) 1,000 mg Capsule Take 2,000 mg by mouth daily. 02/04/2021 aspirin 81 mg EC tablet Take 81 mg by mouth daily. 07/05/2023 documented as of this encounter Plan of Treatment Upcoming Encounters Date Type Department Care Team (Late st Contact Info) Description 10/27/2023 11:15 AM EDT Office Visit Palliative Medicine at [place] [phone] Elly Alston MD [facility] HOSPICE [place] [address] 10/27/2023 1:00 PM EDT Office Visit Speech Therapy at [address] Debra Franco, TOBACCO STRIPPING MACHINE OPERATOR 11/03/2023 2:00 PM EDT Office Visit Speech Therapy at [place] [phone] Debra Franco, TOBACCO STRIPPING MACHINE OPERATOR 11/08/2023 2:30 PM EDT Appointment MRI at [place] [phone] Navjot Grider MD [facility] [place] [address] 11/09/2023 1:45 PM EDT Office Visit Hematology and Oncology at [place] [address] Isabell Jacob MD [facility] [place] [address] 11/11/2023 10:30 AM EDT Office [place] [address] Nicki Sharpe MD [facility] [place] [address] 11/15/2023 10:00 AM EDT Office [place] [address] Debra Franco, TOBACCO STRIPPING MACHINE OPERATOR 11/16/2023 9:00 AM EDT Office Visit Hematology [place] [address] Bisi Nam 11/22/2023 10:00 AM EDT Office [place] [address] Debra Franco, TOBACCO STRIPPING MACHINE OPERATOR 11/30/2023 9:00 AM EDT Office Visit Hematology [place] [address] Bisi Nam 12/14/2023 9:00 AM EDT Office Visit [place]ology [place] [address] Bisi Nam 12/28/2023 9:00 AM EDT Office Visit [place]ology [place] [address] Bisi Nam documented as of this encounter Procedures Procedure Name Priority Date/Time Associated Diagnosis Comments HEMOGRAM Routine 12/19/2019 9:44 AM EDT DIFFERENTIAL, AUTOMATED Routine 12/19/2019 9:44 AM EDT VITAMIN D, 25-HYDROXY Routine 12/19/2019 9:44 AM EDT TSH Routine 12/19/2019 9:44 AM EDT T4, FREE Routine 12/19/2019 9:44 AM EDT PSA (ULTRASENSITIVE) Routine 12/19/2019 9:44 AM EDT LDL CHOLESTEROL, DIRECT Routine 12/19/2019 9:44 AM EDT HDL/CHOL PROFILE Routine 12/19/2019 9:44 AM EDT HEMOGLOBIN A1C Routine 12/19/2019 9:44 AM EDT COMPREHENSIVE METABOLIC PANEL Routine 12/19/2019 9:44 AM EDT documented in this encounter Results * TSH (12/19/2019 9:44 AM EDT) Thyroid Stimulating Hormone 3.15 0.27 - 4.20 mcIU/mL [facility] Blood specimen (specimen) Venous Draw / Unknown 12/19/2019 9:44 AM EDT 12/19/2019 12:44 PM EDT Narrative Resulting Agency Comment Spec In Lab Molina Herr MD CHEMISTRY ORDERABLES Performing Organization Address City/[facility]/ZIP Co de Phone Number [facility] [place] [address] * T4, free (12/19/2019 9:44 AM EDT) Free T4 1.21 0.93 - 1.70 ng/dL [facility] Blood specimen (specimen) Venous Draw / Unknown 12/19/2019 9:44 AM EDT 12/19/2019 12:44 PM EDT Narrative Resulting Agency Comment Spec In Lab Molina Herr MD CHEMISTRY ORDERABLES [facility] [place] [address] * PSA (Ultrasensitive) (12/19/2019 9:44 AM EDT) Prostate Specific Antigen (Ultrasensitive ) 1.03 0.00 - 4.00 ng/mL [facility] Comment: PLEASE NOTE: The above reference interval is intended for healthy males with an intact prostate. Values within this reference interval may indicate recurrence in men who have undergone radical prostatectomy. Blood specimen (specimen) Venous Draw / Unknown 12/19/2019 9:44 AM EDT 12/19/2019 12:44 PM EDT Narrative Resulting Agency Comment Spec In Lab Molina Herr MD CHEMISTRY ORDERABLES [facility] [place] [address] * Hemoglobin A1c (12/19/2019 9:44 AM EDT) [facility] Hemoglobin A1c 5.6 4.3 - 5.6 % [facility] Comment: Reference Range: 4.3 - [...] Mellitus, Diabetes Care 2013; 36: Suppl. 1, V74-68 Estimated Average Glucose See note mg/dL [facility] Comment: Estimated Average Glucose not [...] into estimated average glucose values. ??Diabetes Care 2008:31(8):9541-6002. Blood specimen (specimen) Venous Draw / Unknown 12/19/2019 9:44 AM EDT 12/19/2019 12:46 PM EDT Narrative Resulting Agency Comment Spec In Lab Molina Herr MD CHEMISTRY ORDERABLES Performing Organization Address City/State/[facility] Co de Phone Number [facility] [place] [address] * Differential, Automated (12/19/2019 9:44 AM EDT) Neutrophil % 58.6 % [facility] Neutrophil Absolute 3.14 1.70 - 6.10 x10(3)/[facility] Lymph % 26.8 % [facility] Lymphocytes Abs 1.4 0.9 - 3.2 x10(3)/[facility] Monocyte % 10.2 % [facility] Monocyte Abs 0.6 0.3 - 0.9 x10(3)/[facility] Eos % 3.5 % [facility] Eosinophils Abs 0.2 0.0 - 0.4 x10(3)/[facility] Basophil % 0.7 % [facility] Baso Absolute 0.0 0.0 - 0.1 x10(3)/[facility] Immature Gran % 0.20 % [facility] Comment: Immature granulocytes(IG's)percentage and absolute count will include metamyelocytes, myelocytes, and promyelocytes. Blood smears from CBCs yielding IG's will be scanned manually for concordance. If this scan disagrees with the automated IG or if promyelocytes are noted, a manual differential will be performed. Immature Gran Absolute 0.01 0.00 - 0.04 x10(3)/mcL [facility] Blood specimen (specimen) Venous Draw / Unknown 12/19/2019 9:44 AM EDT 12/19/2019 12:45 PM EDT Narrative Resulting Agency Comment Spec In Lab Molina Herr MD HEMATOLOGY ORDERABLE S [facility] [place] [address] * (ABNORMAL) Hemogram (12/19/2019 9:44 AM EDT) White Blood Cell 5.4 4.0 - 9.5 x10(3)/mc L [facility] Red Blood Cell 4.66 4.58 - 5.54 x10(6)/mc L [facility] Hemoglobin 13.5(L) 13.7 - 16.5 gm/dL [facility] Hematocrit 42.1 40.5 - 48.5 % [facility] Mean Cell Volume 90.3 82.9 - 93.[address] [facility] Mean Cell Hemoglobin 29.0 27.5 - 32.[address] [facility] Mean Cell Hemoglobin Concentration 32.1 32.0 - 35.7 gm/dL [facility] Platelet 286 145 - 357 x10(3)/mc L [facility] RDW Standard Deviation 44.9 36.0 - 45.[address] [facility] RDW coefficient of variation 13.4 11.4 - 13.8 % [facility] Mean Platelet Volume 10.1 7.6 - 12.[address] [facility] NRBC% auto 0.0 % [facility] NRBC Absolute 0.000 0.000 - 0.000 x10(3)/mc L [facility] Blood specimen (specimen) Venous Draw / Unknown 12/19/2019 9:44 AM EDT 12/19/2019 12:45 PM EDT Narrative Resulting Agency Comment Spec In Lab Molina Herr MD HEMATOLOGY ORDERABLE S Performing Organization Address [facility] Co de Phone Number [facility] [place] [address] * Vitamin D, 25-Hydroxy (12/19/2019 9:44 AM EDT) Vitamin D Total 25 OH 100 21 - 100 ng/mL [facility] Comment: Please note, effective July 11, 2019, additional result field for Vitamin D Interpretation, and updated flagging notification. Vit D Interp Sufficient [facility] Blood specimen (specimen) Venous Draw / Unknown 12/19/2019 9:44 AM EDT 12/19/2019 12:45 PM EDT Narrative Resulting Agency Comment Spec In Lab Mloina Herr MD CHEMISTRY ORDERABLES Performing Organization Address [facility] Co de Phone Number [facility] [place] [address] * HDL/Cholesterol Profile (12/19/2019 9:44 AM EDT) Cholesterol, Total 177 mg/dL [facility] Comment: Lower Risk: <200 mg/dL Average Risk: 200-239 mg/dL Higher Risk: >qh=885 mg/dL HDL Cholesterol 48 mg/dL [facility] Comment: Males: ?? Higher Risk: <40 mg/dL Females: ?? HIgher Risk: <50 mg/dL Cholesterol/HDL Ratio 3.[address] [facility] Chol/HDL Interpretation See Note [facility] Comment: Lipid management should be guided by a patient? s ASCVD risk, goals and preferences. ACC/AHA Guidelines recommend high intensity statin if clinical ASCVD or LDL greater than or equal to 190 mg/dL. http://[employer].com/XSI-RMM-Ankwfvkic Measure LDL if Total Cholesterol minus HDL Cholesterol is greater than 220 mg/dL. Adults aged 40-75 with LDL 70-189 mg/dL should have their 10 year ASCVD risk estimated with the ACC/AHA ASCVD risk construction cost estimator http://tools.acc.org/MXVYX-Opla-Vhoorcnpq/ Statin should be discussed if risk greater than or equal to 7.5% in non-diabetics. With diabetes, moderate intensity statin is recommended if risk less than 7.5%, high intensity if risk greater than or equal to 7.5%. Annual lipid monitoring on statins is not necessary. Lifestyle modification is a critical component of ASCVD risk reduction. Blood specimen (specimen) Venous Draw / Unknown 12/19/2019 9:44 AM EDT 12/19/2019 12:44 PM EDT Narrative Resulting Agency Comment Spec In Lab Molina Herr MD CHEMISTRY ORDERABLES Performing Organization Address City/[facility]/ZIP Co de Phone Number [facility] [place] [address] * LDL Cholesterol, Direct (12/19/2019 9:44 AM EDT) LDL Cholesterol, Direct 119 mg/dL [facility] Comment: Lowest Risk: <100 mg/dL Lower Risk: 100-129 mg/dL Borderline High Risk: 130-159 mg/dL High Risk: 160-189 mg/dL Very High Risk: >mx=120 mg/dL Blood specimen (specimen) Venous Draw / Unknown 12/19/2019 9:44 AM EDT 12/19/2019 12:44 PM EDT Narrative Resulting Agency Comment Spec In Lab Molina Herr MD CHEMISTRY ORDERABLES Performing Organization Address City/[facility]/ZIP Co de Phone Number [facility] [place] [address] * (ABNORMAL) Comprehensive metabolic panel (non-fasting) (12/19/2019 9:44 AM EDT) Glucose 93 65 - 199 mg/dL [facility] Comment:Diabetes: >=200 mg/d L plus symptoms Blood Urea Nitrogen 20 10 - 20 mg/dL [facility] Creatinine 1.18 0.80 - 1.50 mg/dL [facility] Sodium 139 135 - 145 mmol/L [facility] Potassium 4.2 3.5 - 5.0 mmol/L [facility] Comment: Please note: ??Patients with WBC >100,000 may have falsely elevated Potassium levels. ??For accurate Potassium quantification in these patients send serum separator tube ([facility] top) for subsequent determinations. ??Contact the Clinical Chemistry Laboratory if there are any questions. Chloride 103 98 - 107 mmol/L [facility] Carbon Dioxide 28 22 - 31 mmol/L [facility] Anion Gap 8 5 - 15 mmol/L [facility] Calcium 9.5 8.5 - 10.5 mg/dL [facility] Protein, Total 7.2 6.1 - 8.0 gm/dL [facility] Albumin 4.1 3.2 - 5.2 gm/dL [facility] Aspartate Aminotransferase 14 0 - 39 unit/L [facility] Alanine Aminotransferase 15 0 - 55 unit/L [facility] Alkaline Phosphatase 60 40 - 130 unit/L [facility] Bilirubin, Total 0.3 0.2 - 1.3 mg/dL [facility] Est Glomerular Filtration Rate 59(L) >=60 mL/min/1. 73 m?? [facility] Comment: The eGFR was calculated using the CKD-EPI equation. As with all creatinine based estimates of kidney function, eGFR values calculated with the CKD-EPI equation are not accurate in patients with acute kidney failure, extremes of body mass or the acutely ill. http://[employer]/DHMCnkf eGFR 69 >=60 mL/min/1. 73 m?? [facility] Comment: The eGFR was calculated using the CKD-EPI equation. As with all creatinine based estimates of kidney function, eGFR values calculated with the CKD-EPI equation are not accurate in patients with acute kidney failure, extremes of body mass or the acutely ill. http://[employer].com/DHMCnkf Blood specimen (specimen) Venous Draw / Unknown 12/19/2019 9:44 AM EDT 12/19/2019 12:44 PM EDT Narrative Resulting Agency Comment Spec In Lab Molina Herr MD CHEMISTRY ORDERABLES Performing Organization Address City/State/[facility] Co de Phone Number [facility] [place] [address] documented in this encounter Visit Diagnoses Not on filedocumented in this encounter Care Teams Client Relations Associate Relationship Specialty Start Date End Date Molina Herr MD [address] [address] [place] [address] PCP - General 01/27/10 documented as of this encounter
--- OUTSIDE RECORDS SUMMARY | 2023-10-17 15:12 | XMS_ITS | Encounter Summary ---
[place] [address] Care Team Providers Care Steel Wheel Engraver Name Role Phone Molina Herr MD Primary Care Provider [phone] Encounter Details Date Type Department Care Team (Late st Contact Info) Description 12/22/2017 Telephone [place] [phone] Vito Etienne Social History Tobacco Use Types Packs/Day Years [...] encounter Miscellaneous Notes * Telephone Encounter - Vito Etienne - 12/22/2017 10:41 AM EDT Referral placed for patient to have a screening colonoscopy. Left VM. documented in this encounter Plan of Treatment Upcoming Encounters Date Type Department Care Team (Late st Contact Info) Description 10/27/2023 11:15 AM EDT Office [place] [address] Elly Alston MD [facility] DR HOSPICE [place] [address] 10/27/2023 1:00 PM EDT Office Visit Speech Therapy at [place] [address] Debra Franco, DIRECT CARE SUPERVISOR 11/03/2023 2:00 PM EDT Office Visit Speech Therapy at [place] [address] Debra Franco, DIRECT CARE SUPERVISOR 11/08/2023 2:30 PM EDT Appointment MRI at [place] [address] Navjot Grider MD [facility] DR [place] [address] 11/09/2023 1:45 PM EDT Office Visit Hematology and Oncology at [place] [address] Isabell Jacob MD [facility] [place] [address] 11/11/2023 10:30 AM EDT Office Visit Radiation Oncology at [place] [address] Nicki Sharpe MD [facility] [place] [address] 11/15/2023 10:00 AM EDT Office Visit Speech Therapy at [address] Debra Franco, DIRECT CARE SUPERVISOR 11/16/2023 9:00 AM EDT Office Visit Hematology and Oncology at [place] [address] Bisi Nam 11/22/2023 10:00 AM EDT Office [place] [address] Debra Franco, DIRECT CARE SUPERVISOR 11/30/2023 9:00 AM EDT Office Visit Hematology [place] [address] Bisi Nam 12/14/2023 9:00 AM EDT Office Visit Hematology [place] [address] Bisi Nam 12/28/2023 9:00 AM EDT Office Visit Hematology [place] [address] Bisi Nam documented as of this encounter Visit Diagnoses Not on filedocumented in this encounter Care Teams Steel Wheel Engraver Relationship Specialty Start Date End Date Molina Herr MD [facility] [address] [place] [address] PCP - General 01/27/10 documented as of this encounter
--- OUTSIDE RECORDS SUMMARY | 2023-10-17 15:12 | XMS_ITS | Encounter Summary ---
[place] [address] Care Team Providers Care Final Inspector [employer] Name Role Phone Molina Herr MD Primary Care Provider [phone] Reason for Referral * Diagnostic Test (Routine) - Closed Specialty Diagnoses / Procedures Referred By Contac t Referred To Contact Diagnoses PATEL (dyspnea on exertion) Procedures Echocardiogram Stress (Treadmill) Molina Herr MD [address] [place] [address] [facility] [place] [address] Referral ID Status Reason Start Date Expiration Date V isits Requested Visits Authorized [id number] Closed Specialty Service Requested 04/11/2019 04/10/2020 1 1 Reason for Visit * Diagnostic Test (Routine) - Closed Specialty Diagnoses / Procedures Referred By Contac t Referred To Contact Diagnoses PATEL (dyspnea on exertion) Procedures Echocardiogram Stress (Treadmill) Molina Herr MD [address] [place] [address] [facility] [place] [address] Referral ID Status Reason Start Date Expiration Date V isits Requested Visits Authorized [id number] Closed Specialty Service Requested 04/11/2019 04/10/2020 1 1 Encounter Details Date Type Department Care Team (Latest Contact Info) Description 04/12/2019 9:33 AM EST - 04/12/2019 11:59 PM EST Hospital Encounter Non-Invasive [place] [address] Molina Herr MD [address] [place] [address] PATEL (dyspnea on exertion) Discharge Disposition: Home Social History Tobacco Use [...] 20 mg by mouth daily. 4 03/08/2014 [id number] (SOURCE CF) 200-10 mcg-mg Chew Take 1 [...] Take 1,000 Units by mouth daily. 07/28/2023 [place]-3 Fatty Acids-Vitamin E (FISH OIL) 1,000 mg Capsule Take 2,000 mg by mouth daily. 02/04/2021 aspirin 81 mg EC tablet Take 81 mg by mouth daily. 07/05/2023 documented as of this encounter Plan of Treatment Upcoming Encounters Date Type Department Care Team (Late st Contact Info) Description 10/27/2023 11:15 AM EDT Office Visit Palliative Medicine at [place] [address] Elly Alston MD [facility] [address] HOSPICE [place] [address] 10/27/2023 1:00 PM EDT Office Visit Speech Therapy at [place] [address] Debra Franco, [employer] 11/03/2023 2:00 PM EDT Office Visit Speech Therapy at [place] [address] Debra Franco, [employer] 11/08/2023 2:30 PM EDT Appointment MRI at [place] [address] Navjot Grider MD [facility] [place] [address] 11/09/2023 1:45 PM EDT Office Visit Hematology and Oncology at [place] [address] Isabell Jacob MD [facility] [place] [address] 11/11/2023 10:30 AM EDT Office Visit Radiation Oncology at [address] Nicki Sharpe MD [facility] [place] [address] 11/15/2023 10:00 AM EDT Office Visit Speech Therapy [place] [address] Debra Franco, [employer] 11/16/2023 9:00 AM EDT Office Visit Hematology [place] [address] Bisi Nam 11/22/2023 10:00 AM EDT Office [place] [address] Debra Franco, [employer] 11/30/2023 9:00 AM EDT Office Visit Hematology [place] [address] Bisi Nam 12/14/2023 9:00 AM EDT Office Visit Hematology [place] [address] Bisi Nam 12/28/2023 9:00 AM EDT Office Visit Hematology [place] [address] Bisi Nam documented as of this encounter Procedures Procedure Name Priority Date/Time Associated Diagnosis Comments STRESS ECHO W CONTRAST W LMTD SPEC DOPP COLOR DOPP Routine 04/12/2019 10:49 AM EST PATEL (dyspnea on exertion) documented in this encounter Results * STRESS ECHO W CONTRAST W LMTD SPEC DOPP COLOR DOPP (04/12/2019 10:49 AM EST) Pathologist [facility] EF 60 HEARTLAB SYSTEM Anatomical Region Laterality Modality Other 04/12/2019 Narrative 04/12/2019 11:37 AM EST Procedure: ?Stress Echocardiogram Patient: ?DEREK GIVENS X ? (Age): 1940(78y) Med Rec#: ? [id number] ?Sex: ?M ? Site Loc: ? DH ?Ht / Wt: ??175(cm)/82(kg) Pt. Loc: ?Echo Lab ?BSA: ? Study Date: ?? 04/12/2019 ?Pt. Type: Tape: ? Referring: Molina Herr Reading: Cricket Nguyen ??([id number]) Food Service Order Clerk: Kirsten Knight Epic Trainer: Bia Regan Diagnosis: *Other forms of dyspnea (R06.09) Stage ? BP ?HR ? Rest ?130/90 ?77 ? Peak ?170/80 ?153 ? Recovery ?140/78 ?96 ? SUMMARY: 1. REST: Resting ECG showed normal [...] diagnostic level of stress. Good exercise tolerance. Findings Rest: Study Quality: ? Technically limited1 vial Definity used Left Ventricle: ? Mild concentric left ventricular hypertrophy is observed. ?There is normal global left ventricular systolic function. ?The quantitative left ventricular ejection fraction by biplane Arias's method is 60%. ?There are no left ventricular segmental wall motion abnormalities. ?The left ventricular diastolic filling pattern is consistent with impaired LV relaxation. Right Ventricle: ? Right ventricular global systolic function is normal. ?Pulmonary artery hypertension could not be assessed due to inadequate tricuspid regurgitation jet. Aortic Valve: ? The aortic valve is tricuspid. ?The aortic valve leaflets are mildly thickened. ?Mild aortic leaflet calcification is visualized. ?Systolic excursion of the aortic valve is normal. ?There is aortic annular calcification. ?There is no evidence of aortic valve stenosis. ?There is a trace of aortic regurgitation present. Mitral Valve: ? The mitral valve leaflets are mildly thickened. ?There is thickening of both mitral valve leaflets. ?There is mitral annular calcification. ?There is no evidence of mitral stenosis. ?There is trace mitral regurgitation present. Tricuspid Valve: ? The tricuspid valve appears normal in structure and function. ?There is mild (1+/4+) tricuspid regurgitation present. Pulmonic Valve: ? The pulmonic valve appears normal in structure and function. Pericardium: ? The pericardium appears normal and there is no evidence of a pericardial effusion. Aorta: ? 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 EKG: normal sinus rhythm. ?EKG: first degree AV block. ?The patient's oxygen saturation was 100% ?The patient is taking a lipid lowering agent. ?The patient is taking aspirin. Misc: ? Definity contrast (one 1.5 ml vial)was used to enhance endocardial definition. Excess contrast was discarded. ?Stress echo, limited spectral Doppler, color Doppler and ECG interpretation performed. Findings Peak: Predicted Values:The patient achieved a maximum heart rate of 153 which is 106% of the maximum predicted heart rate (144 beats/min). ??The target heart rate was achieved. Left Ventricle: ? Global left ventricular systolic function appears hyperdynamic. ??Ejection fraction is estimated to be 80%. ?There are no left ventricular segmental wall motion abnormalities. Stress: ? Patient followed a Stu protocol. ?The patient exercised into stage 3. ?The total exercise duration was:9:01 mins. ?The study was terminated because of dyspnea.8.5/10 shortness of breath at peak exercise. ?The patient did not express feelings of chest discomfort. ?The patient experienced shortness of breath. ?The blood pressure response was normal. ?Exercise capacity was excellent. ?The patient achieved a level of 10 METS. ?There were occasional ventricular premature contractions. ?There were ventricular couplets. ?There were no significant ST segment changes. ?This was a negative electrocardiographic stress test for ischemia. ?EKG: sinus tachycardia. ?The patient's oxygen saturation was 99%. Chambers 2D ?Value ?Units (Range) ? IVSd (2D) ? 1.23 ? cm ? LVPWd (2D) ?1.2 ?cm ? IVS:LVPW ratio (2D) 1.02 ? ratio ? RWT (2D) ?0.58 ? ratio ? RWT PW (2D) ? 0.57 ? ratio ? LVIDd (2D) ?4.2 ?cm ? LVIDs (2D) ?3.11 ? cm ? LVIDd (2D) index ?2.12 ? cm/m2 ? LVIDs (2D) index ?1.57 ? cm/m2 ? LV FS (2D) ?25.88 ?% ? EF Teichholz (2D) ?? 51.25 ?% ? Ao root diameter (2D3.88 ? cm (2.1 - 3.6) ? Ascending Ao ?4.05 ? cm (2 - 3.5) ? Volumes/Mass ?Value ?Units (Range) ? LV ESV SP 4CH (MOD) 49.24 ?ml ? LV mass (2D) ?181.1 ?g ? LV mass (2D) index ??91.62 ?g/m2 ? Diastolic/Systolic Function ?Value ?Units (Range) ? MV E-wave Vmax ?0.46 ? m/sec ? MV deceleration [id number] ? msec ? MV A-wave Vmax ?0.67 ? m/sec ? MV E:A ratio ?0.69 ? ratio ? LV septal e' Vmax ?? 0.07 ? m/sec ? LV lateral e' Vmax ??0.08 ? m/sec ? LV E:e' septal ratio6.56 ? ratio ? LV E:e' lateral rati5.74 ? ratio ? Wall Motion: Segment Name ?Rest ? Peak ? Base-Anteroseptal ?? Normal ? Normal ? Base-Anterior ? Normal ? Normal ? Base-Anterolateral ??Normal ? Normal ? Base-Posterolateral Normal ? Normal ? Base-Inferior ? Normal ? Normal ? Base-Inferoseptal ?? Normal ? Normal ? Mid-Anteroseptal ?Normal ? Normal ? Mid-Anterior ?Normal ? Normal ? Mid-Anterolateral ?? Normal ? Normal ? Mid-Posterolateral ??Normal ? Normal ? Mid-Inferior ?Normal ? Normal ? Mid-Inferoseptal ?Normal ? Normal ? [place]-Septal ? Normal ? Normal ? [place]-Anterior ? Normal ? Normal ? [place]-Lateral ?Normal ? Normal ? [place]-Inferior ? Normal ? Normal ? [place]-Tip ?Normal ? Normal ? This report has been electronically signed by: Cricket Nguyen MD ? 04/12/2019 11:37:02 Images reviewed and interpretation verified [facility] Cardiac Ultrasound Laboratory Procedure Note Cricket Nguyen MD - 04/12/2019 Procedure: Stress Echocardiogram Patient: DEREK GIVENS X (Age): 1940(78y) Med Rec#: [id number] Sex: M Site Loc: [facility] Ht / Wt: 175(cm)/82(kg) Pt. Loc: Echo Lab BSA: 1.98 Study Date: 04/12/2019 Pt. Type: Tape: Referring: Molina Herr Reading: Cricket Nguyen ([id number]) Food Service Order Clerk: Kirsten Knight Epic Trainer: Bia Regan Diagnosis: *Other forms of dyspnea (R06.09) Stage BP HR Rest 130/90 77 Peak 170/80 153 Recovery 140/78 96 SUMMARY: 1. REST: Resting ECG showed normal [...] diagnostic level of stress. Good exercise tolerance. Findings Rest: Study Quality: Technically limited1 vial Definity used Left Ventricle: Mild concentric left ventricular hypertrophy is observed. There is normal global left ventricular systolic function. The quantitative left ventricular ejection fraction by biplane Arias's method is 60%. There are no left ventricular segmental wall motion abnormalities. The left ventricular diastolic filling pattern is consistent with impaired LV relaxation. Right Ventricle: Right ventricular global systolic function is normal. Pulmonary artery hypertension could not be assessed due to inadequate tricuspid regurgitation jet. Aortic Valve: The aortic valve is tricuspid. The aortic valve leaflets are mildly thickened. Mild aortic leaflet calcification is visualized. Systolic excursion of the aortic valve is normal. There is aortic annular calcification. There is no evidence of aortic valve stenosis. There is a trace of aortic regurgitation present. Mitral Valve: The mitral valve leaflets are mildly thickened. There is thickening of both mitral valve leaflets. There is mitral annular calcification. There is no evidence of mitral stenosis. There is trace mitral regurgitation present. Tricuspid Valve: The tricuspid valve appears normal in structure and function. There is mild (1+/4+) tricuspid regurgitation present. Pulmonic Valve: The pulmonic valve appears normal in structure and function. Pericardium: The pericardium appears normal and there is no evidence of a pericardial effusion. 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 EKG: first degree AV block. The patient's oxygen saturation was 100% The patient is taking a lipid lowering agent. The patient is taking aspirin. Misc: Definity contrast (one 1.5 ml vial)was used to enhance endocardial definition. Excess contrast was discarded. Stress echo, limited spectral Doppler, color Doppler and ECG interpretation performed. Findings Peak: Predicted Values:The patient achieved a maximum heart rate of 153 which is 106% of the maximum predicted heart rate (144 beats/min). The target heart rate was achieved. Left Ventricle: Global left ventricular systolic function appears hyperdynamic. Ejection fraction is estimated to be 80%. There are no left ventricular segmental wall motion abnormalities. Stress: Patient followed a Stu protocol. The patient exercised into stage 3. The total exercise duration was:9:01 mins. The study was terminated because of dyspnea.8.5/10 shortness of breath at peak exercise. The patient did not express feelings of chest discomfort. The patient experienced shortness of breath. The blood pressure response was normal. Exercise capacity was excellent. The patient achieved a level of 10 METS. There were occasional ventricular premature contractions. There were ventricular couplets. There were no significant ST segment changes. This was a negative electrocardiographic stress test for ischemia. EKG: sinus tachycardia. The patient's oxygen saturation was 99%. Chambers 2D Value Units (Range) IVSd (2D) 1.23 cm LVPWd (2D) 1.2 cm IVS:LVPW ratio (2D) 1.02 ratio RWT (2D) 0.58 ratio RWT PW (2D) 0.57 ratio LVIDd (2D) 4.2 cm LVIDs (2D) 3.11 cm LVIDd (2D) index 2.12 cm/m2 LVIDs (2D) index 1.57 cm/m2 LV FS (2D) 25.88 % EF Teichholz (2D) 51.25 % Ao root diameter (2D3.88 cm (2.1 - 3.6) Ascending Ao 4.05 cm (2 - 3.5) Volumes/Mass Value Units (Range) LV ESV SP 4CH (MOD) 49.24 ml LV mass (2D) 181.1 g LV mass (2D) index 91.62 g/m2 Diastolic/Systolic Function Value Units (Range) MV E-wave Vmax 0.46 m/sec MV deceleration [id number] msec MV A-wave Vmax 0.67 m/sec MV E:A ratio 0.69 ratio LV septal e' Vmax 0.07 m/sec LV lateral e' Vmax 0.08 m/sec LV E:e' septal ratio6.56 ratio LV E:e' lateral rati5.74 ratio Wall Motion: Segment Name Rest Peak Base-Anteroseptal Normal Normal Base-Anterior Normal Normal Base-Anterolateral Normal Normal Base-Posterolateral Normal Normal Base-Inferior Normal Normal Base-Inferoseptal Normal Normal Mid-Anteroseptal Normal Normal Mid-Anterior Normal Normal Mid-Anterolateral Normal Normal Mid-Posterolateral Normal Normal Mid-Inferior Normal Normal Mid-Inferoseptal Normal Normal [place]-Septal Normal Normal [place]-Anterior Normal Normal [place]-Lateral Normal Normal [place]-Inferior Normal Normal [place]-Tip Normal Normal This report has been electronically signed by: Cricket Nguyen MD 04/12/2019 11:37:02 Images reviewed and interpretation verified [facility] Cardiac Ultrasound Laboratory Molina Herr MD ECHO ORDERABLES documented in this encounter Visit Diagnoses Diagnosis PATEL (dyspnea on exertion) Other dyspnea and respiratory abnormality documented in this encounter Administered Medications Inactive Administered Medications - up to 3 most recent administrations Medication Order MAR Action Action Date Dose Rate Site perflutren lipid microspheres (DEFINITY) injection 0.5 mL 0.5 mL, Intravenous, ONCE PRN, 1 dose, Starting on Debbie 04/12/19 at 1050, Until Debbie 2 at 1030, Other, for enhancement of sub-optimal echo images, Echo Lab (Intra-Procedure), Routine Given 04/12/2019 10:30 AM EST 0.5 mLs documented in this encounter Care Teams Final Inspector Truck Trailer Relationship Specialty Start Date End Date Molina Herr MD [address] [place] [address] PCP - General 01/27/10 documented as of this encounter
--- OUTSIDE RECORDS SUMMARY | 2023-10-17 15:12 | XMS_ITS | Encounter Summary ---
Author Organization [facility] [place] [address] Care Team Providers Care Bee Tender Name Role Phone Molina Herr MD Primary Care Provider [phone] Encounter Details Date Type Department Care Team (Latest Contact Info) Description 12/14/2017 3:41 PM EDT - 12/14/2017 11:59 PM EDT [place] [address] Discharge Disposition: Home Social History [...] 20 mg by mouth daily. 4 03/08/2014 [id number]-VP-[id number] (SOURCE CF) 200-10 mcg-mg Chew Take 1 tablet by mouth daily. 08/04/2010 levothyroxine (SYNTHROID) 25 mcg tablet 25MCG = 1 Tablet(s), PO, Once daily 09/27/2007 atorvastatin (LIPITOR) 10 mg tablet Take 20 mg by mouth. 09/27/2007 vitamin E (VITAMIN E) 400 unit Capsule Take by mouth daily. acetaminophen (TYLENOL) 325 mg Tablet Take 2 tablets by mouth every 6 hours as needed for Pain. 30 tablet 03/09/2017 07/05/2023 Cholecalciferol, Vitamin D3, 1,000 unit Capsule Take 1,000 Units by mouth daily. 07/28/2023 [place]-3 Fatty Acids-Vitamin E (FISH OIL) 1,000 mg Capsule Take 2,000 mg by mouth daily. 02/04/2021 aspirin 81 mg EC tablet Take 81 mg by mouth daily. 07/05/2023 documented as of this encounter Plan of Treatment Upcoming Encounters Date Type Department Care Team (Late st Contact Info) Description 10/27/2023 11:15 AM EDT Office Visit Palliative Medicine at [place] [address] Elly Alston MD [facility] HOSPICE [place] [address] 10/27/2023 1:00 PM EDT Office Visit Speech Therapy at [address] Debra Franco, TEXTURE ARTIST 11/03/2023 2:00 PM EDT Office Visit Speech Therapy at [place] [phone] Debra Franco, TEXTURE ARTIST 11/08/2023 2:30 PM EDT Appointment MRI at [address] Navjot Grider MD [facility] [place] [address] 11/09/2023 1:45 PM EDT Office Visit Hematology and Oncology at [place] [phone] Isabell Jacob MD [facility] [place] [address] 11/11/2023 10:30 AM EDT Office Visit [place] [address] Nicki Sharpe MD [facility] [place] [address] 11/15/2023 10:00 AM EDT Office [place] [address] Debra Franco, TEXTURE ARTIST 11/16/2023 9:00 AM EDT Office Visit Hematology [place] [address] Bisi Nam 11/22/2023 10:00 AM EDT Office [place] [address] Dbera Franco, TEXTURE ARTIST 11/30/2023 9:00 AM EDT Office Visit Hematology [place] [address] Bisi Nam 12/14/2023 9:00 AM EDT Office Visit Hematology [place] [address] Bisi Nam 12/28/2023 9:00 AM EDT Office Visit Hematology [place] [address] Bisi Nma documented as of this encounter Procedures Procedure Name Priority Date/Time Associated Diagnosis Comments HEMOGRAM Routine 12/14/2017 11:08 AM EDT DIFFERENTIAL, AUTOMATED Routine 12/14/2017 11:08 AM EDT GOLD TUBE HOLD Routine 12/14/2017 11:08 AM EDT TSH Routine 12/14/2017 11:08 AM EDT T4, FREE Routine 12/14/2017 11:08 AM EDT PSA (ULTRASENSITIVE) Routine 12/14/2017 11:08 AM EDT LDL CHOLESTEROL, DIRECT Routine 12/14/2017 11:08 AM EDT HEMOGLOBIN A1C Routine 12/14/2017 11:08 AM EDT LIPID PANEL (REFLEX DIRECT LDL) Routine 12/14/2017 11:08 AM EDT COMPREHENSIVE METABOLIC PANEL Routine 12/14/2017 11:08 AM EDT documented in this encounter Results * Gold Tube HOLD (12/14/2017 11:08 AM EDT) Pathologist [facility] Gold Hold Sample in lab. [facility] Blood specimen (specimen) Venous Draw / Unknown 12/14/2017 11:08 AM EDT 12/14/2017 5:17 PM EDT Molina Herr MD CHEMISTRY ORDERABLES [facility] [place] [address] * Differential, Automated (12/14/2017 11:08 AM EDT) Neutrophil % 53.4 % [facility] Neutrophil Absolute 2.34 1.70 - 6.10 x10(3)/[facility] Lymph % 33.0 % [facility] Lymphocytes Abs 1.4 0.9 - 3.2 x10(3)/[facility] Monocyte % 10.0 % [facility] Monocyte Abs 0.4 0.3 - 0.9 x10(3)/[facility] Eos % 2.5 % [facility] Eosinophils Abs 0.1 0.0 - 0.4 x10(3)/[facility] Basophil % 0.9 % [facility] Baso Absolute 0.0 0.0 - 0.1 x10(3)/[facility] Immature Gran % 0.20 % [facility] Comment: Immature granulocytes(IG's)percentage and absolute count will include metamyelocytes, myelocytes, and promyelocytes. Blood smears from CBCs yielding IG's will be scanned manually for concordance. If this scan disagrees with the automated IG or if promyelocytes are noted, a manual differential will be performed. Immature Gran Absolute 0.01 0.00 - 0.04 x10(3)/[facility] Blood specimen (specimen) Venous Draw / Unknown 12/14/2017 11:08 AM EDT 12/14/2017 5:15 PM EDT Narrative Resulting Agency Comment Spec In Lab Molina Herr MD HEMATOLOGY ORDERABLE S Performing Organization Address City/[facility]/ZIP Co de Phone Number [facility] [place] [address] * PSA (12/14/2017 11:08 AM EDT) Prostate Specific Antigen (Ultrasensitiv e) 0.92 0.00 - 4.00 ng/mL [facility] Blood specimen (specimen) Venous Draw / Unknown 12/14/2017 11:08 AM EDT 12/14/2017 5:14 PM EDT Narrative Resulting Agency Comment Spec In Lab Molina Herr MD CHEMISTRY ORDERABLES [facility] [place] [address] * TSH (12/14/2017 11:08 AM EDT) Thyroid Stimulating Hormone 2.88 0.27 - 4.20 mlU/ML [facility] Blood specimen (specimen) Venous Draw / Unknown 12/14/2017 11:08 AM EDT 12/14/2017 5:14 PM EDT Narrative Resulting Agency Comment Spec In Lab Molina Herr MD CHEMISTRY ORDERABLES Performing Organization Address City/[facility]/ZIP Co de Phone Number [facility] [place] [address] * T4, free (12/14/2017 11:08 AM EDT) Free T4 1.31 0.93 - 1.70 ng/dL [facility] Blood specimen (specimen) Venous Draw / Unknown 12/14/2017 11:08 AM EDT 12/14/2017 5:14 PM EDT Narrative Resulting Agency Comment Spec In Lab Molina Herr MD CHEMISTRY ORDERABLES Performing Organization Address [facility] de Phone Number [facility] [place] [address] * Hemoglobin A1c (12/14/2017 11:08 AM EDT) [facility] Hemoglobin A1c 5.4 4.3 - 5.6 % [facility] Comment: Reference Range: 4.3 - 5.6% 5.7 - 6.4% - Increased Risk of Developing Diabetes Mellitus >=6.5% - Consistent with diagnosis of Diabetes Mellitus In the absence of hyperglycemia (i.e. plasma glucose > 200 mg/dL) or classic symptoms of hyperglycemia a repeat measurement of HbA1c should be performed on a separate sample to confirm the diagnosis. Diagnosis and Classification of Diabetes Mellitus, Diabetes Care 2013; 36: Suppl. 1, S67-74 Estimated Average Glucose See note mg/dL [facility] Comment: Estimated Average Glucose [...] into estimated average glucose values. ??Diabetes Care 2008:31(8):4528-6810. Blood specimen (specimen) Venous Draw / Unknown 12/14/2017 11:08 AM EDT 12/14/2017 5:15 PM EDT Narrative Resulting Agency Comment Spec In Lab Molina Herr MD CHEMISTRY ORDERABLES [facility] [place] [address] * (ABNORMAL) Hemogram (12/14/2017 11:08 AM EDT) White Blood Cell 4.4 4.0 - 9.5 x10(3)/mc L [facility] Red Blood Cell 4.74 4.58 - 5.54 x10(6)/mc L [facility] Hemoglobin 13.4(L) 13.7 - 16.5 gm/dL [facility] Hematocrit 43.1 40.5 - 48.5 % [facility] Mean Cell Volume 90.9 82.9 - 93.1 fL [facility] Mean Cell Hemoglobin 28.3 27.5 - 32.1 pg [facility] Mean Cell Hemoglobin Concentration 31.1(L) 32.0 - 35.7 gm/dL [facility] Platelet 285 145 - 357 x10(3)/mc L [facility] RDW Standard Deviation 45.8(H) 36.0 - 45.0 [facility] RDW coefficient of variation 13.6 11.4 - 13.8 % [facility] Mean Platelet Volume 10.2 7.6 - 12.9 [facility] NRBC% auto 0.0 % [facility] NRBC Absolute 0.000 0.000 - 0.000 x10(3)/mc L [facility] Blood specimen (specimen) Venous Draw / Unknown 12/14/2017 11:08 AM EDT 12/14/2017 5:15 PM EDT Narrative Resulting Agency Comment Spec In Lab Molina Herr MD HEMATOLOGY ORDERABLE S Performing Organization Address City/[facility]/ZIP Co de Phone Number [facility] [place] [address] * LDL Cholesterol, Direct (12/14/2017 11:08 AM EDT) LDL Cholesterol, Direct 101 mg/dL [facility] Comment: Lowest Risk: <100 mg/dL Lower Risk: 100-129 mg/dL Borderline High Risk: 130-159 mg/dL High Risk: 160-189 mg/dL Very High Risk: >yo=691 mg/dL Blood specimen (specimen) Venous Draw / Unknown 12/14/2017 11:08 AM EDT 12/14/2017 5:14 PM EDT Narrative Resulting Agency Comment Spec In Lab Molina Herr MD CHEMISTRY ORDERABLES [facility] [place] [address] * Lipid Panel (12/14/2017 11:08 AM EDT) Cholesterol, Total 171 mg/dL [facility] Comment: Lower Risk: <200 mg/dL Average Risk: 200-239 mg/dL Higher Risk: >el=334 mg/dL Triglyceride 82 mg/dL [facility] Comment: Average Risk/Lower Risk: <150 mg/dL Borderline High Risk: 150-199 mg/dL High Risk: 200-499 mg/dL Very High Risk: >eu=967 mg/dL HDL Cholesterol 52 mg/dL [facility] Comment: Males: ?? Higher Risk: <40 mg/dL Females: ?? HIgher Risk: <50 mg/dL LDL Cholesterol 103 mg/dL [facility] Comment: Lowest Risk: <100 mg/dL Lower Risk: 100-129 mg/dL Borderline High Risk: 130-159 mg/dL High Risk: 160-189 mg/dL Very High Risk: >cg=784 mg/dL Cholesterol/HDL Ratio 3.3 ratio [facility] Lipid Interpretation See Note [facility] Comment: Lipid management should be guided by a patient? s ASCVD risk, goals and preferences. ACC/AHA Guidelines recommend high intensity statin if clinical ASCVD or LDL greater than or equal to 190 mg/dL. http://BRIKA.com/PEX-DRO-Kbcqpzpni Adults aged 40-75 with LDL 70-189 mg/dL should have their 10 year ASCVD risk estimated with the ACC/AHA ASCVD risk dry box operator http://tools.acc.org/JZCCS-Drzs-Wpnvawteo/ Statin should be discussed if risk greater [...] Blood specimen (specimen) Venous Draw / Unknown 12/14/2017 11:08 AM EDT 12/14/2017 5:14 PM EDT Narrative Resulting Agency Comment Spec In Lab Molina Herr MD CHEMISTRY ORDERABLES [facility] [place] [address] * (ABNORMAL) Comprehensive metabolic panel (non-fasting) (12/14/2017 11:08 AM EDT) Glucose 93 65 - 199 mg/dL [facility] Comment:Diabetes: >=200 mg/d L plus symptoms Blood Urea Nitrogen 21(H) 10 - 20 mg/dL [facility] Creatinine 1.08 0.80 - 1.50 mg/dL [facility] Sodium 139 135 - 145 mmol/L [facility] Potassium 4.3 3.5 - 5.0 mmol/L [facility] Comment: Please note: ??Patients with WBC >100,000 may have falsely elevated Potassium levels. ??For accurate Potassium quantification in these patients send serum separator tube (gold top) for subsequent determinations. ??Contact the Clinical Chemistry Laboratory if there are any questions. Chloride 101 98 - 107 mmol/L [facility] Carbon Dioxide 25 22 - 31 mmol/L [facility] Anion Gap 13 5 - 15 mmol/L [facility] Calcium 9.6 8.5 - 10.5 mg/dL [facility] Protein, Total 7.2 6.1 - 8.0 gm/dL [facility] Albumin 4.1 3.2 - 5.2 gm/dL [facility] Aspartate Aminotransferase 19 0 - 39 unit/L [facility] Alanine Aminotransferase 15 0 - 55 unit/L [facility] Alkaline Phosphatase 49 40 - 120 unit/L [facility] Bilirubin, Total 0.4 0.2 - 1.3 mg/dL [facility] Est Glomerular Filtration Rate 67 >=60 mL/min/1. 73 m?? [facility] Comment: The eGFR was calculated using the CKD-EPI equation. As with all creatinine based estimates of kidney function, eGFR values calculated with the CKD-EPI equation are not accurate in patients with acute kidney failure, extremes of body mass or the acutely ill. [email or web address] eGFR 77 >=60 mL/min/1. 73 m?? [facility] Comment: The eGFR was calculated using the CKD-EPI equation. As with all creatinine based estimates of kidney function, eGFR values calculated with the CKD-EPI equation are not accurate in patients with acute kidney failure, extremes of body mass or the acutely ill. [email or web address] Blood specimen (specimen) Venous Draw / Unknown 12/14/2017 11:08 AM EDT 12/14/2017 5:14 PM EDT Narrative Resulting Agency Comment Spec In Lab Molina Herr MD CHEMISTRY ORDERABLES [facility] [place] [phone] documented in this encounter Visit Diagnoses Not on filedocumented in this encounter Care Teams Bee Tender Relationship Specialty Start Date End Date Molina Herr MD [facility] [phone] [place] [address] PCP - General 01/27/10 documented as of this encounter
--- OUTSIDE RECORDS SUMMARY | 2023-10-17 15:12 | XMS_ITS | Encounter Summary ---
Author Organization [facility] [place] [address] Care Team Providers Care Biological Science Technician Fish Name Role Phone oMlina Herr MD Primary Care Provider [phone] Encounter Details Date Type Department Care Team (Late st Contact Info) Description 01/12/2018 2:30 PM EST - 01/12/2018 3:30 PM EST Surgery [place] [phone] Guerda Coombs MD [facility] [place] [address] COLONOSCOPY, POLYPECTOMY, REMOVAL LESION BY SNARE (WRVU [...] Sign Reading Time Taken Comments Blood Pressure 94/47 01/12/2018 3:20 PM EST Pulse 67 01/12/2018 3:20 PM EST Temperature 36.3 ??C (97.3 ??F) 01/12/2018 2:42 PM ES T Respiratory Rate 10 01/12/2018 3:20 PM EST Oxygen Saturation 98% 01/12/2018 3:20 PM EST Inhaled Oxygen Concentration - - Weight - - Height - - Body Mass Index - - documented in this encounter Discharge Instructions * Discharge Instructions* Kiana Van, RN - 01/12/2018 3:36 PM EST Colonoscopy and polyp removal What to expect after the procedure You may feel a little more gassy or bloated than usual, this is normal. You should expect the return of normal bowel function in the next 2 to 3 days. Because some polyps were removed, you may see a little blood with the next few bowel movements, this should be a small amount ( less than a few tablespoons) and will resolve on it's own. ACTIVITY Because of the sedation that you received Your judgement and reaction time are effected ?? Go home and rest for the remainder for the day. You may resume your normal activities tomorrow ?? Change from one position to the next slowly because you may lose your balance unexpectedly. ?? Be careful on stairs, as you may be unsteady. FOR THE NEXT 24 HRS ?? DO NOT DRIVE OR OPERATE MACHINERY ?? DO NOT DRINK ALCOHOLIC BEVERAGES ?? DO NOT SIGN LEGAL DOCUMENTS ?? If you are a smoker: DO NOT SMOKE WHILE YOU ARE ALONE Diet ?? Start by eating small portions of foods that ordinarily will not upset your stomach, avoid gas producing foods for the next few days. ?? Be gentle with what you choose to start with ?? Drink plenty of fluids ( unless your doctor has told you not to). Medicines Avoid medicines that influence the way your blood clots for the next week. These would include anti-inflammatory medicine, such as ibuprofen( Advil, Motrin) and naproxen ( Aleve). If you need something for discomfort, Tylenol (Acetaminophen) is safe if used as directed. Your Doctor will tell you when to restart your prescribed blood thinners The IV site-- slight tenderness, or redness is normal, you can use warm compresses if you get concerned. If the tenderness +/or redness increases or foul drainage and a red streak occurs, please contact your PCP immediately. When should you call for help? Call 911 anytime you think you may need emergency care. For example If you pass out (loss of consciousness) If you pass maroon or bloody stools If you have severe belly pain Call your healthcare provider or seek immediate medical care if: Your stools are black or tar like Your stools have streaks of blood that is more pronounced with each BM You have belly pain, or your belly is swollen and firm You vomit You have a fever You are very dizzy Watch closely for changes in your health, and be sure to contact your doctor if you have any problems. Your Doctor will let you know when you will need your next colonoscopy. The results of your test and your risk for colorectal cancer will help your doctor decide how often you need to be checked. Tuesday-Tuesday Same Day Endo [phone]-8p Otherwise contact [phone] and ask to speak to the construction craft laborer electronic engraver Follow up care is a arrington part of your treatment and safety. Be sure to make and go to all appointments, and call your doctor if you are having problems. Discharge instructions reviewed with patient who expresses understanding documented in this encounter Medications at Time of Discharge Medication Sig Dispensed Refills Start Date End Date omeprazole (PRILOSEC) 20 mg Capsule, Delayed Release(E.C.) Take 20 mg by mouth daily. 4 03/08/2014 myxrsqqxlskes-FY-nult (SOURCE CF) 200-10 mcg-mg Chew Take 1 [...] Take 1,000 Units by mouth daily. 07/28/2023 [place]-3 Fatty Acids-Vitamin E (FISH OIL) 1,000 mg Capsule Take 2,000 mg by mouth daily. 02/04/2021 aspirin 81 mg EC tablet Take 81 mg by mouth daily. 07/05/2023 documented as of this encounter H&P Notes * Guerda Coombs MD - 01/12/2018 2:13 PM EST Gastroenterology and Hepatology Pre-Procedure History and Physical Exam Procedure: Colonoscopy: Indication: hx of polyps Patient Active Problem List Diagnosis Code ??? [...] Proceed with the planned endoscopic procedure. ASA 2 - Patient with mild systemic disease with no functional limitations Sedation Plan: moderate (conscious sedation) Risks and benefits of the procedure explained to the patient. Consent signed. documented in this encounter Plan of Treatment Upcoming Encounters Date Type Department Care Team (Late st Contact Info) Description 10/27/2023 11:15 AM EDT Office Visit Palliative [place] [address] Elly Alston MD [facility] DR HOSPICE [place] [address] 10/27/2023 1:00 PM EDT Office Visit [place] [address] Debra Franco, TOBACCO EDUCATOR 11/03/2023 2:00 PM EDT Office Visit [place] [address] Debra Franco, TOBACCO EDUCATOR 11/08/2023 2:30 PM EDT [place] [phone] Navjot Grider MD [facility] DR HEMATOLOGY [place] [address] 11/09/2023 1:45 PM EDT Office Visit Hematology and Oncology at [place] [address] Isabell Jacob MD [facility] [place] [address] 11/11/2023 10:30 AM EDT Office Visit Radiation Oncology at [place] [address] Nicki Sharpe MD [facility] [place] [address] 11/15/2023 10:00 AM EDT Office Visit Speech Therapy at [address] Debra Franco, TOBACCO EDUCATOR 11/16/2023 9:00 AM EDT Office Visit Hematology and Oncology at [address] Bisi Nam 11/22/2023 10:00 AM EDT Office Visit Speech Therapy at [place] [phone] Debra Franco, TOBACCO EDUCATOR 11/30/2023 9:00 AM EDT Office Visit Hematology [place] [address] Bisi Nam 12/14/2023 9:00 AM EDT Office Visit Hematology and Oncology at [place] [phone] Bisi Nam 12/28/2023 9:00 AM EDT Office Visit Hematology and Oncology at [place] [phone] Bisi Nam documented as of this encounter Procedures Procedure Name Priority Date/Time Associated Diagnosis Comments SURGICAL PATHOLOGY REPORT Routine 01/12/2018 3:25 PM EST SPECIMEN TO PATHOLOGY Routine 01/12/2018 3:25 PM EST COLONOSCOPY, POLYPECTOMY, REMOVAL LESION BY SNARE (WRVU 4.57) 01/12/2018 2:54 PM EST 5 yr surv. COLONOSCOPY Routine 01/12/2018 2:13 PM EST documented in this encounter Results * Surgical Pathology Report (01/12/2018 3:25 PM EST) Final Diagnosis [id number] ? Location: 4T; EA09; A The signing pathologist has (i) examined the relevant preparation(s) for the specimen(s) and (ii) rendered or confirmed the diagnosis(es). . ?Surgical Pathology DIAGNOSIS Transverse colon, ??polypectomy: - ??Fragments of tubular adenoma. CR-PX Electronically signed by: ??Ruben Goncalves MD Verified: ??01/17/2018 ?Pathologist Performed at: ??-[facility] Dept. of Pathology, [place], [place] CLINICAL INFORMATION Specimen Submitted: A - Transverse colon polyp Clinical History and Diagnosis: _ SPECIMEN PROCESSING A - Labeled/Fixativ e: Transverse colon polyp, formalin. Quantity/Size: Three, 0.2-0.4 cm. Tissue Description: Soft, peraza-pink tissues. Sections/Proces sing: Submitted en toto ??in 1 cassette labeled A1. ??louis 01/17/2018 2:27 PM EST [facility] GI Biopsy 01/12/2018 3:25 PM EST 01/12/2018 3:25 PM EST Guerda Coombs MD PATHOLOGY/CYTOLOGY O RDERABLES Performing Organization Address [facility] Co de Phone Number [facility] [place] [address] * Specimen to Pathology (01/12/2018 3:25 PM EST) AP Specimen 01/12/2018 3:25 PM EST 01/12/2018 3:53 PM EST Narrative [facility] - 01/12/2018 3:53 PM EST Specimen requisition ordered. ??Separate Pathology report to follow Resulting Agency Comment Spec In Lab Guerda Coombs MD PATHOLOGY/CYTOLOGY O CLINTVIJI Performing Organization Address [facility] [place] [address] * COLONOSCOPY (01/12/2018 2:13 PM EST) COLONOSCOPY [facility] Endoscopy Procedure Date: 01/12/2018 2:13 PM ? Patient Name: Perfecto Polk ? [facility]: [id number] ? Date of : 1940 ? Age: 77 ? Order #: [id number] ? Instrument Name: [id number] ? Procedure: ? Colonoscopy Indications: ? High risk colon cancer surveillance: ? Personal history of colonic polyps Providers: ? Guerda Coombs MD, Osiris Dixon RN, ? William Neil MD: ?Molina Herr MD Medicines: ? Midazolam 4 mg IV, Fentanyl 150 ? micrograms IV Complications: ? No immediate [...] with the ? patient. All questions were answered ? and informed consent was obtained. ? The procedure, indications, benefits, ? risks and alternatives were explained ? to the patient. Specifically ? discussed were potential ? complications including, but not ? limited to, bleeding, perforation, ? infection, missing a cancer, and ? adverse medication reactions. The ? patient was placed in the left ? lateral decubitus position, and a ? digital rectal exam was performed. ? The Colonoscope was inserted in the ? anus and under direct visualization, ? advanced to the terminal ileum. ? Careful inspection was made as the ? colonoscope was withdrawn. The ? colonoscopy was performed without ? difficulty. The patient tolerated the ? procedure well. The quality of the ? bowel preparation was excellent. ? Findings: ? A 3 mm polyp was found in the transverse colon. The ? polyp was sessile. The polyp was removed with a cold ? snare. Resection and retrieval were complete. ? Internal hemorrhoids were found. ? Moderate Sedation: ? I was present during the intraservice time as ? documented by the sedation RN. Impression: ?- One 3 mm polyp in the transverse ? colon, removed with a cold snare. ? Resected and retrieved. Recommendation: ?- Repeat colonoscopy in 5 years for ? surveillance. ? Attending Participation: ? I personally performed the entire procedure. ? I was present during the intraservice time as ? documented by the sedation RN. ? Guerda Coombs MD 01/12/2018 3:28:33 PM This report has been signed electronically. Number of Addenda: 0 Note Initiated On: 01/12/2018 2:13 PM PROVATION 01/12/2018 2:13 PM EST Molina Herr MD GENERAL SURGICAL ORD ERABLES PROVATION documented in this encounter Visit Diagnoses Not on filedocumented in this encounter Administered Medications Inactive Administered Medications - up to 3 most recent administrations Medication Order MAR Action Action Date Dose Rate Site fentaNYL 50 mcg/mL multi-dose injection ONCE PRN, Starting on Debbie 01/12/18 at 1500, Until Debbie 01/12/18 at 1832, Intra-Operative (Intra-Procedure), Routine Given 01/12/2018 3:13 PM EST 25 mcg Right Arm Given 01/12/2018 3:06 PM EST 25 mcg Ri ght Arm Given 01/12/2018 3:03 PM EST 50 mcg Ri ght Arm lactated Ringers infusion 100 mL/hr, Intravenous, CONTINUOUS, Starting on Debbie 01/12/18 at 1500, Until Debbie 01/12/18 at 1610, Endoscopy (Day of Procedure) New Bag 01/12/2018 3:00 PM EST 100 mL/hr 100 mL/hr midazolam (PF) (VERSED) multi-dose injection ONCE PRN, Starting on Debbie 01/12/18 at 1500, Until Debbie 01/12/18 at 1832, Intra-Operative (Intra-Procedure), Routine Given 01/12/2018 3:17 PM EST 0.5 mg Right Arm Given 01/12/2018 3:13 PM EST 0.5 mg Ri ght Arm Given 01/12/2018 3:11 PM EST 0.5 mg Ri ght Arm documented in this encounter Active and Recently Administered Medications Times are shown in EST. Continuous Medication Order 01/10/2018 01/11/2018 01/12/2018 lactated Ringers infusion (CANCELED) 100 mL/hr, Intravenous, CONTINUOUS, Starting on Debbie 01/12/18 at 1500, Until Debbie 01/12/18 at 1610, Endoscopy (Day of Procedure) 1500 (New Bag - Prov ider: Susy Truong RN) PRN Medication Order 01/10/2018 01/11/2018 01/12/2018 fentaNYL 50 mcg/mL multi-dose injection (CANCELED) ONCE PRN, Starting on Debbie 01/12/18 at 1500, Until Debbie 01/12/18 at 1832, Intra-Operative (Intra-Procedure), Routine 1500 (Given - Provid er: Osiris Dixon RN)1503 (Given - Provider: Osiris Dixon RN)1506 (Given - Provider: Osiris Dixon RN)1513 (Given - Provider: Osiris Dixon RN) midazolam (PF) (VERSED) multi-dose injection (CANCELED) ONCE PRN, Starting on Debbie 01/12/18 at 1500, Until Debbie 01/12/18 at 1832, Intra-Operative (Intra-Procedure), Routine 1500 (Given - Provid er: Osiris Dixon RN)1503 (Given - Provider: Osiris Dixon RN)1506 (Given - Provider: Osiris Dixon RN)1511 (Given - Provider: Osiris Dixon RN)1513 (Given - Provider: Osiris Dixon RN)1517 (Given - Provider: Osiris Dixon RN) documented in this encounter Care Teams Biological Science Technician Fish Relationship Specialty Start Date End Date Molina Herr MD [facility] [address] [place] [address] PCP - General 01/27/10 documented as of this encounter
--- OUTSIDE RECORDS SUMMARY | 2023-10-17 15:12 | XMS_ITS | Encounter Summary ---
Author Organization [facility] [place] [address] Care Team Providers Care Link Wire Fabric Machine Operator Name Role Phone Molina Herr MD Primary Care Provider [phone] Encounter Details Date Type Department Care Team (Latest Contact Info) Description 04/03/2020 10:30 AM EST Clinical Support Audiology at [address] [phone] Audra Raya Sensorineural hearing loss, bilateral Social History Tobacco Use Types Packs/Day Years [...] as of this encounter Progress Notes * Audra Raya - 04/03/2020 10:30 AM EST Hearing aid check. Seen in the repair clinic reporting the following: ?? Right hearing aid cutting in and out and left hearing aid distorted when listening to music. The following actions were taken: ?? Visual inspection revealed domes and microphones occluded with debris. ?? Listening check revealed cutting in and out with right aid. No distortion noted with left aid. ?? Hearing instrument cleaned: ?? Removed debris from microphones and meter changes records clerk ports as well as battery doors. ?? Replaced meter changes records clerk wires and domes. ?? Following the above measures, listening check of the hearing aids then found them to be in good working order. PLAN: Patient will test out bluetoothing music to hearing aids. 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 Patient to contact clinic if new concerns regarding changes in hearing or amplification management needs arise. Otherwise, return as per managing slab grinder for routine audiologic evaluation and hearing aid management. HEARING AID(S): HEARING AID RIGHT LEFT Make/Model/Style Oticon Opn 3 miniRITE Oticon Opn 3 miniRITE Casing Color 92 (ann) 92 (ann) Serial Number [id number] (new-replacement) [id number] (old) Battery Size 312 312 Invoice number / date [id number] ??10/27/16 [id number] ??10/27/16 PROGRAM/SETTINGS ? Fitting Algorithm DSL 5a [...] Number ?Warranty date ? Invoice number/date ? * Zulema Pepper - 04/03/2020 10:30 AM EST Audiology Hearing Instrument Coordinator in training Audra Raya performed the check. Reviewed and agree with findings / documentation. Zulema Pepper, Hearing Instrument Coordinator 2 meter changes records clerk wire were dispensed, out of warranty material charges apply. Hearing aids are used for Bilateral Sensorineural Hearing Loss. documented in this encounter Plan of Treatment Upcoming Encounters Date Type Department Care Team (Late st Contact Info) Description 10/27/2023 11:15 AM EDT Office Visit Palliative Medicine at [place] [phone] Elly Alston MD [facility] DR HOSPICE [place] [address] 10/27/2023 1:00 PM EDT Office Visit Speech Therapy at [place] [address] Debra Franco, HR ADVISOR 11/03/2023 2:00 PM EDT Office Visit Speech Therapy at [place] [phone] Debra Franco, HR ADVISOR 11/08/2023 2:30 PM EDT Appointment MRI at [address] Navjot Grider MD [facility] DR [place] [address] 11/09/2023 1:45 PM EDT Office Visit Hematology and Oncology at [place] [address] Isabell Jacob MD [facility] [place] [address] 11/11/2023 10:30 AM EDT Office Visit Radiation Oncology at [place] [address] Nicki Sharpe MD [facility] DR RADIATION ONCOLOGY [place] [id number] 11/15/2023 10:00 AM EDT Office [place] [address] Debra Franco, HR ADVISOR 11/16/2023 9:00 AM EDT Office Visit [place]ology [place] [address] Bisi Nam 11/22/2023 10:00 AM EDT Office [place] [address] Debra Franco HR ADVISOR 11/30/2023 9:00 AM EDT Office Visit Hematology [place] [address] Bisi Nam 12/14/2023 9:00 AM EDT Office Visit Hematology [place] [address] Bisi Nam 12/28/2023 9:00 AM EDT Office Visit [place] [address] Bisi Nam documented as of this encounter Visit Diagnoses Diagnosis Sensorineural hearing loss, bilateral documented in this encounter Care Teams Link Wire Fabric Machine Operator Relationship Specialty Start Date End Date Molina Herr MD [facility] [address] [place] [address] PCP - General 01/27/10 documented as of this encounter
--- OUTSIDE RECORDS SUMMARY | 2023-10-17 15:12 | XMS_ITS | Encounter Summary ---
[place] [address] Care Team Providers Care Programming Development Project Manager Name Role Phone Molina Herr MD Primary Care Provider [phone] Encounter Details Date Type Department Care Team (Late st Contact Info) Description 04/17/2020 [facility] [place] [phone] Hi Ring MD [facility] [place] [address] Social History Tobacco Use Types Packs/Day Years [...] AM EDT Office [place] [phone] Elly Alston MD [facility] DR HOSPICE AND PALLIATIVE MEDICINE [place], [place] [phone] 10/27/2023 1:00 PM EDT Office Visit Speech Therapy at [address] Debra Franco, BUCKLE INSPECTOR 11/03/2023 2:00 PM EDT Office Visit Speech Therapy at [place] [phone] Debra Franco, BUCKLE INSPECTOR 11/08/2023 2:30 PM EDT Appointment MRI at [address]1000 Navjot Grider MD [facility] DR HEMATOLOGY [place] [address] 11/09/2023 1:45 PM EDT Office Visit Hematology and Oncology at [place] [address] Isabell Jacob MD [facility] [place] [address] 11/11/2023 10:30 AM EDT Office Visit Radiation Oncology at [address] Nicki Sharpe MD [facility] [place] [address] 11/15/2023 10:00 AM EDT Office Visit Speech Therapy at [place] [phone] Debra Franco, BUCKLE INSPECTOR 11/16/2023 9:00 AM EDT Office Visit Hematology and Oncology at [place] [phone] Bisi Nam 11/22/2023 10:00 AM EDT Office Visit Speech Therapy at [place] [phone] Debra Franco, BUCKLE INSPECTOR 11/30/2023 9:00 AM EDT Office Visit Hematology [place] [address] Bisi Nam 12/14/2023 9:00 AM EDT Office Visit Hematology [place] [address] Bisi Nam 12/28/2023 9:00 AM EDT Office Visit Hematology [place] [address] Bisi Nam documented as of this encounter Visit Diagnoses Not on filedocumented in this encounter Care Teams Programming Development Project Manager Relationship Specialty Start Date End Date Molina Herr MD [facility] [address] [place] [address] PCP - General 01/27/10 documented as of this encounter
--- OUTSIDE RECORDS SUMMARY | 2023-10-17 15:12 | XMS_ITS | Encounter Summary ---
Author Organization [facility] [place] [address] Care Team Providers Care Partnership Manager Name Role Phone Molina Herr MD Primary Care Provider [phone] Reason for Visit * Reason Comments Follow-up Encounter Details Date Type Department Care Team (Late st Contact Info) Description 03/28/2017 9:30 AM EST Office [place] [address] Kenya Sim, BUS STEWARD [facility] [place] [address] Surgery follow-up Social History Tobacco Use Types Packs/Day Years [...] - Inhaled Oxygen Concentration - - Weight 82.1 kg (181 lb) 03/28/2017 9:28 AM EST Height - - Body Mass Index 25.97 03/08/2017 7:22 PM EST documented in this encounter Progress Notes * Kenya Sim, KERRI - 03/28/2017 9:30 AM EST Perfecto Polk returns for hospital check. 03/09/17 Laparoscopic appendectomy - Gustavo Findings: - inflammed appendix, nonperforated, moderate adhesions Path: DIAGNOSIS Appendix: - ??Acute appendicitis and periappendicitis. - Appendical diverticulum. The patient reports he has been doing very well, denies fevers chills malaise, sweats, rectal pain or pressure, denies abdomninal pain, nausea or vomiting. Reports energy and appetite good. Denies any difficulty with trocar sites. Pleased with progress. Exam: Well appearing moves easily about the exam room and onto the exam table. Abd soft non tender non distended, trocar sites are benign and nicely healed. Impression/Plan: Unremarkable post discharge course At this time there is no scheduled general surgery FU indicated. However, the patient knows to feelfree to call us should there be any question, concern, or should anything specific arise. documented in this encounter Plan of Treatment Upcoming Encounters Date Type Department Care Team (Late st Contact Info) Description 10/27/2023 11:15 AM EDT Office [place] [address] Elly Alston MD [facility] DR HOSPICE [place] [address] 10/27/2023 1:00 PM EDT Office [place] [address] Debra Franco, DBAS 11/03/2023 2:00 PM EDT Office [place] [address] Debra Franco, DBAS 11/08/2023 2:30 [place] [address] Navjot Grider MD [facility] DR [place] [address] 11/09/2023 1:45 PM EDT Office Visit Hematology and Oncology at [place] [address] Isabell Jacob MD [facility] [place] [address] 11/11/2023 10:30 AM EDT Office Visit Radiation Oncology at [place] [address] Nicki Sharpe MD [facility] [place] [address] 11/15/2023 10:00 AM EDT Office Visit Speech Therapy at [place] [phone] Debra Franco, DBAS 11/16/2023 9:00 AM EDT Office Visit Hematology and Oncology at [place] [phone] Bisi Nam 11/22/2023 10:00 AM EDT Office Visit Speech Therapy at [place] [phone] Debra Franco, DBAS 11/30/2023 9:00 AM EDT Office Visit Hematology [place] [address] Bisi Nam 12/14/2023 9:00 AM EDT Office Visit Hematology [place] [address] Bisi Nam 12/28/2023 9:00 AM EDT Office Visit Hematology [place] [address] Bisi Nam documented as of this encounter Visit Diagnoses Diagnosis Surgery follow-up Follow-up examination, following unspecified surgery documented in this encounter Care Teams Partnership Manager Relationship Specialty Start Date End Date Molina Herr MD [facility] [address] [place] [address] PCP - General 01/27/10 documented as of this encounter
--- OUTSIDE RECORDS SUMMARY | 2023-10-17 15:12 | XMS_ITS | Encounter Summary ---
Author Organization Formerly [facility] Address [facility] [place] [address] Care Team Providers Care Bookkeeper Name Role Phone Molina Herr MD Primary Care Provider Encounter Details Date Type Department Care Team (Latest Contact Info) Description 01/12/2018 1:24 PM EST - 01/12/2018 4:24 PM EST Hospital Encounter [place] [phone] Guerda Coombs MD [facility] [place] [address] Discharge Disposition: Home Social History Tobacco Use [...] Sign Reading Time Taken Comments Blood Pressure 116/73 01/12/2018 4:00 PM EST Pulse 88 01/12/2018 3:34 PM EST Temperature 36.3 ??C (97.3 ??F) 01/12/2018 2:42 PM ES T Respiratory Rate 16 01/12/2018 4:00 PM EST Oxygen Saturation 97% 01/12/2018 4:00 PM EST Inhaled Oxygen Concentration - - Weight - - Height - - Body Mass Index - - documented in this encounter Discharge Instructions * Discharge Instructions* Kiana Van, OSCAR - 01/12/2018 3:36 PM EST Colonoscopy and [...] to be checked. Tuesday-Tuesday Same Day Endo [phone]-[phone] Otherwise contact [phone] and ask to speak to the paper colorer labor contractor Follow up care is a arrington part [...] 20 mg by mouth daily. 4 03/08/2014 [id number] (SOURCE CF) 200-10 mcg-mg Chew Take 1 [...] Take 1,000 Units by mouth daily. 07/28/2023 Fertile-3 Fatty Acids-Vitamin E (FISH OIL) 1,000 mg [...] AM EDT Office Visit Palliative Medicine at [place] [phone] Elly Alston MD [facility] DR HOSPICE AND [place] [address] 10/27/2023 1:00 PM EDT Office [place] [phone] Debra Franco, DATABASE ADMINISTRATION MANAGER 11/03/2023 2:00 PM EDT Office [place] [phone] Debra Franco, DATABASE ADMINISTRATION MANAGER 11/08/2023 2:30 PM EDT [place] [phone] Navjot Grider MD [facility] DR HEMATOLOGY [place] [address] 11/09/2023 1:45 PM EDT Office Visit Hematology and Oncology at [place] [address] Isabell Jacob MD [facility] [place] [address] 11/11/2023 10:30 AM EDT Office Visit Radiation Oncology at [place] [address] Nicki Sharpe MD [facility] [place] [address] 11/15/2023 10:00 AM EDT Office Visit Speech Therapy at [place] [phone] Debra Franco, DATABASE ADMINISTRATION MANAGER 11/16/2023 9:00 AM EDT Office Visit Hematology and Oncology at [place] [phone] Bisi Nam 11/22/2023 10:00 AM EDT Office Visit Speech Therapy at [place] [phone] Debra Franco, DATABASE ADMINISTRATION MANAGER 11/30/2023 9:00 AM EDT Office Visit Hematology [place] [address] Bisi Nam 12/14/2023 9:00 AM EDT Office Visit Hematology [place] [address] Bisi Nam 12/28/2023 9:00 AM EDT Office Visit Hematology [place] [address] Bisi Nam documented as of this encounter [...] Report (01/12/2018 3:25 PM EST) Final Diagnosis [id number] ? Location: 4T; EA09; A The signing pathologist has (i) examined the relevant preparation(s) for the specimen(s) and (ii) rendered or confirmed the diagnosis(es). . ?Surgical Pathology DIAGNOSIS Transverse colon, ??polypectomy: - ??Fragments of tubular adenoma. CR-PX Electronically signed by: ??Ruben Goncalves MD Verified: ??01/17/2018 ?Pathologist Performed at: ??-[facility] Dept. of Pathology, [place], [place] CLINICAL INFORMATION Specimen Submitted: A - Transverse colon polyp Clinical History and Diagnosis: _ SPECIMEN PROCESSING A - Labeled/Fixativ e: Transverse colon polyp, formalin. Quantity/Size: Three, 0.2-0.4 cm. Tissue Description: Soft, peraza-pink tissues. Sections/Proces sing: Submitted en toto ??in 1 cassette labeled A1. ??louis 01/17/2018 2:27 PM EST [facility] GI Biopsy 01/12/2018 3:25 PM EST 01/12/2018 3:25 PM EST Guerda Coombs MD PATHOLOGY/CYTOLOGY O RDERABLES [facility] [place] [address] * Specimen to Pathology (01/12/2018 3:25 PM EST) AP Specimen 01/12/2018 3:25 PM EST 01/12/2018 3:53 PM EST Narrative [facility] - 01/12/2018 3:53 PM EST Specimen requisition ordered. ??Separate Pathology report to follow Resulting Agency Comment Spec In Lab Guerda Coombs MD PATHOLOGY/CYTOLOGY O STANISLAW Performing Organization Address [facility] [place] [address] * COLONOSCOPY (01/12/2018 2:13 PM EST) COLONOSCOPY [facility] Endoscopy Procedure Date: 01/12/2018 2:13 PM ? Patient Name: Perfecto Polk ? N: [id number] ? Date of : 1940 ? Age: 77 ? Order #: [id number] ? Instrument Name: [id number] ? Procedure: ? Colonoscopy Indications: ? High [...] MAR Action Action Date Dose Rate Site lactated Ringers infusion 100 mL/hr, Intravenous, CONTINUOUS, Starting on Debbie 01/12/18 at 1500, Until Debbie 01/12/18 at 1610, Endoscopy (Day of Procedure) New Bag 01/12/2018 3:00 PM EST 100 mL/hr 100 mL/hr documented in this encounter Active and Recently [...] RN) documented in this encounter Care Teams Bookkeeper Relationship Specialty Start Date End Date Molina Herr MD [facility] [address] [place] [address] PCP - General 01/27/10 documented as of this encounter
--- OUTSIDE RECORDS SUMMARY | 2023-10-17 15:12 | XMS_ITS | Encounter Summary ---
Author Organization [facility] [place] [address] Care Team Providers Care Antique Furniture Restorer Name Role Phone Molina Herr MD Primary Care Provider [phone] Encounter Details Date Type Department Care Team (Late st Contact Info) Description 03/17/2020 9:05 AM EST [place] [phone] COVID-19 ruled out Social History Tobacco Use Types Packs/Day Years [...] AM EDT Office [place] [phone] Elly Alston MD [facility] HOSPICE [place] [address] 10/27/2023 1:00 PM EDT Office [place] [address] Debra Franco, ROLANDO 11/03/2023 2:00 PM EDT Office Visit Speech Therapy at [place] [phone] Debra Franco, NAVIGATION TEACHER 11/08/2023 2:30 PM EDT Appointment MRI at [place] [phone] Navjot Grider MD [facility] [place] [address] 11/09/2023 1:45 PM EDT Office Visit Hematology and Oncology at [place] [phone] Isabell Jacob MD [facility] [place] [address] 11/11/2023 10:30 AM EDT Office Visit Radiation Oncology at [place] [phone] Nicki Sharpe MD [facility] [place] [address] 11/15/2023 10:00 AM EDT Office [place] [address] Debra Franco, NAVIGATION TEACHER 11/16/2023 9:00 AM EDT Office Visit Hematology [place] [address] Bisi Nam 11/22/2023 10:00 AM EDT Office [place] [phone] Debra Franco, NAVIGATION TEACHER 11/30/2023 9:00 AM EDT Office Visit Hematology [place] [address] Bisi Nam 12/14/2023 9:00 AM EDT Office Visit Hematology and Oncology at [facility] [place] [address] Bisi Nam 12/28/2023 9:00 AM EDT Office Visit Hematology and Oncology at [facility] [place] [address] Bisi Nam documented as of this encounter Procedures Procedure Name Priority Date/Time Associated Diagnosis Comments COVID-19 PCR Routine 03/17/2020 11:29 AM EST COVID-19 ruled out documented in this encounter Results * COVID-19 PCR (03/17/2020 11:29 AM EST) SARS-CoV-2 RNA Not Detected Not Detected [facility] Comment: This result should be interpreted in combination with the clinical observations, patient history and epidemiological information in making a final diagnosis. For testing of asymptomatic individuals, assay performance characteristics and clinical utility have not been evaluated. Testing for SARS-CoV-2 (Severe acute respiratory syndrome coronavirus 2, formerly known as 2019 novel coronavirus or 2019-nCoV) to aid in the diagnosis of COVID-19 is performed using the [employer] Alinity m SARS-CoV-2 Assay as authorized by the FDA Emergency Use Authorization (EUA). This EUA assay is intended for In-vitro Diagnostic (IVD) use with respiratory specimens such as nasopharyngeal swabs collected from individuals during the acute phase of infection. This assay is performed based on the instructions for use provided by [employer] and additional guidance provided by CDC and FDA. Testing is performed in the [facility] Laboratory within the Department of Pathology and Laboratory Medicine at [facility], certified under the Clinical Laboratory Improvement Amendments of 1988 (CLIA), 42 U.S.C. 263a, to perform high complexity tests. Assay performance has been verified according to clinical laboratory regulatory requirements for use with specimens collected from individuals suspected of COVID-19. Test results are provided above. A result of ? Not Detected? indicates that the viral RNA target is not present above the limit of detection, but does not preclude SARS-CoV-2 infection. False negative results may occur if a specimen is improperly collected, transported or handled; if amplification inhibitors are present; or if inadequate numbers of viral particles are present in the specimen. When a diagnostic test is negative, the possibility of a false negative result should be considered in the context of a patient? s recent exposures and the presence of clinical signs and symptoms consistent with COVID-19. A result of ? Detected? indicates that RNA from SARS-CoV-2 was detected and the patient is infected. As required or requested by public health authorities, positive specimens may be sent for additional testing. Positive and negative predictive values for this test are highly dependent on disease prevalence. A result of ? Invalid? indicates that neither the viral RNA targets nor the internal control target was detected. An invalid result suggests the presence of inhibitors. Recollection and re-testing is recommended in the case of an invalid result. CDC COVID-19 criteria for testing on human specimens and clinical management guidance information are available at the CDC Coronavirus Disease 2019 (COVID-19) webpage under ? Information for Healthcare Professionals? (https://www.cdc.gov/coronavirus/2019-ncov/hcp/index.html) Additional information about this and other EUA tests can be found in provider and patient fact sheets at the following FDA website: https://www.fda.gov/medical-devices/mqkkttojeff-wuilszi-9812-oglop-80-bhqjelmim- use-a nyfbynihiprff-goqnfqw-grydhxy/awvgv-derhzvddcpz-xoyi SARS-CoV-2 RNA Source DOPE [employer]AYER Swab [facility] Nasopharyngeal swab (specimen) 03/17/2020 11:29 AM EST 03/17/2020 11:29 AM EST Comment:Symptoms->Asymptomat ic Narrative Resulting Agency Comment Spec In Lab Torrie Putnam APRN MOLECULAR ORDERABLES [facility] [place] [address] documented in this encounter Visit Diagnoses Diagnosis COVID-19 ruled out documented in this encounter Care Teams Antique Furniture Restorer Relationship Specialty Start Date End Date Molina Herr MD [facility] [address] [place] [address] PCP - General 01/27/10 documented as of this encounter
--- OUTSIDE RECORDS SUMMARY | 2023-10-17 15:12 | XMS_ITS | Encounter Summary ---
[place] [address] Care Team Providers Care Straightedge Worker Name Role Phone Molina Herr MD Primary Care Provider [phone] Reason for Visit * Reason Onset Date Comments Questions 03/15/2017 Wound/incision c are - dressing and steri strips came off this morning. Surgery last Tuesday. Encounter Details Date Type Department Care Team (Late st Contact Info) Description 03/15/2017 Telephone [place] [phone] Noris Pichardo V RN Questions (Wound/incision care - dressing and steri strips came off this morning. Surgery last Tuesday.) Social History Tobacco Use Types Packs/Day Years [...] encounter Miscellaneous Notes * Telephone Encounter - Noris Pichardo RN - 03/15/2017 11:28 AM EST TC from [place] - Asking if there is any concern that his dressing & steri strips came off today. Discharge instructions say that steri strips will fall off on their own at about 10 days post op. Concerned because he is at Post op day # 6. Incision areas are clean & dry. No redness noted. Maldonado is compliant to activity restrictions. He has placed a dry gauze over the incision for comfort measures. Afebrile. No other complaints at this time. Instructed to be cautious with cleaning and drying the area. Keep area covered if desired for comfort. He knows to call if any drainage, redness, increased pain or fever occurs prior to his [facility] appointment on 03/28/17. documented in this encounter Plan of Treatment Upcoming Encounters Date Type Department Care Team (Late st Contact Info) Description 10/27/2023 11:15 AM EDT Office Visit Palliative Medicine at [place] [phone] Elly Alston MD [facility] DR HOSPICE [place] [address] 10/27/2023 1:00 PM EDT Office Visit Speech Therapy at [address] Debra Franco, WET WASHER MACHINE 11/03/2023 2:00 PM EDT Office Visit Speech Therapy at [place] [phone] Debra Franco, WET WASHER MACHINE 11/08/2023 2:30 PM EDT Appointment MRI at [address] Nvajot Grider MD [facility] [place] [address] 11/09/2023 1:45 PM EDT Office Visit Hematology and Oncology at [place] [address] Isabell Jacob MD [facility] [place] [address] 11/11/2023 10:30 AM EDT Office Visit Radiation Oncology at [place] [phone] Nicki Sharpe MD [facility] [place] [address] 11/15/2023 10:00 AM EDT Office [place] [address] Debra Franco, WET WASHER MACHINE 11/16/2023 9:00 AM EDT Office Visit Hematology and Oncology at [place] [phone] Bisi Nam 11/22/2023 10:00 AM EDT Office [place] [address] Debra Franco, WET WASHER MACHINE 11/30/2023 9:00 AM EDT Office Visit Hematology [place] [address] Bisi Nam 12/14/2023 9:00 AM EDT Office Visit Hematology [place] [address] Bisi Nam 12/28/2023 9:00 AM EDT Office Visit Hematology [place] [address] Bisi Nam documented as of this encounter Visit Diagnoses Not on filedocumented in this encounter Care Teams Straightedge Worker Relationship Specialty Start Date End Date Molina Herr MD [facility] [address] [place] [address] PCP - General 01/27/10 documented as of this encounter
--- OUTSIDE RECORDS SUMMARY | 2023-10-17 15:12 | XMS_ITS | Encounter Summary ---
[place] [address] Care Team Providers Care Assistance Representative Name Role Phone Molina Herr MD Primary Care Provider [phone] Reason for Visit * Reason Onset Date Comments Triage 03/13/2020 covid Encounter Details Date Type Department Care Team (Late st Contact Info) Description 03/13/[place] [address] Blanca Yang RN Triage (covid) Social History Tobacco Use Types Packs/Day Years [...] encounter Miscellaneous Notes * Telephone Encounter - Blanca Yang RN - 03/13/2020 10:51 AM EST Telephone call placed/received to schedule covid 19 testing with patient. Ordering provider: Torrie Merchant Facility: [facility] Date of Testin/11 Time of Testin Symptoms: asymptomatic, return from travel Is this the first test for Covid 19 Yes If no, please list date of previous test, result, and type of test (Molecular, Antigen, Antibody orunknown):na Resides in congregate care setting No Employee or Household Member of Employee Yes-volunteer in the ED Healthcare Worker No documented in this encounter Plan of Treatment Upcoming Encounters Date Type Department Care Team (Late st Contact Info) Description 10/27/2023 11:15 AM EDT Office Visit Palliative Medicine at [place] [address] Elly Alston MD [facility] HOSPICE [place] [address] 10/27/2023 1:00 PM EDT Office Visit Speech Therapy at [place] [address] Debra Franco, WINDING INSPECTOR AND TESTER 11/03/2023 2:00 PM EDT Office Visit Speech Therapy at [place] [address] Debra Franco, WINDING INSPECTOR AND TESTER 11/08/2023 2:30 PM EDT Appointment MRI at [place] [address] Navjot Grider MD [facility] [place] [address] 11/09/2023 1:45 PM EDT Office Visit Hematology and Oncology at [place] [address] Isabell Jacob MD [facility] [place] [address] 11/11/2023 10:30 AM EDT Office Visit Radiation Oncology at [place] [address] Nicki Sharpe MD [facility] [place] [address] 11/15/2023 10:00 AM EDT Office Visit [place] [address] Debra Franco, WINDING INSPECTOR AND TESTER 11/16/2023 9:00 AM EDT Office Visit Hematology [place] [address] Bisi Nam 11/22/2023 10:00 AM EDT Office Visit [place] [address] Debra Franco WINDING INSPECTOR AND TESTER 11/30/2023 9:00 AM EDT Office Visit Hematology [place] [address] Bisi Nam 12/14/2023 9:00 AM EDT Office Visit Hematology [place] [address] Bisi Nam 12/28/2023 9:00 AM EDT Office Visit Hematology [place] [address] Bisi Nam documented as of this encounter Visit Diagnoses Not on filedocumented in this encounter Care Teams Assistance Representative Relationship Specialty Start Date End Date Molina Herr MD [facility] [address] [place] [address] PCP - General 01/27/10 documented as of this encounter
--- OUTSIDE RECORDS SUMMARY | 2023-10-17 15:12 | XMS_ITS | Encounter Summary ---
[place] [address] Care Team Providers Care Quality Control Inspector Heading Name Role Phone Molina Herr MD Primary Care Provider [phone] Encounter Details Date Type Department Care Team (Late st Contact Info) Description 12/30/2017 Telephone [place] [address] Padmaja Chavez Social History Tobacco Use Types [...] * Telephone Encounter - Padmaja Chavez - 12/30/2017 12:04 PM EDT Patient called looking for his prep instructions for his upcoming colonoscopy. Will send in mail today. documented in this encounter Plan of Treatment Upcoming Encounters Date Type Department Care Team (Late st Contact Info) Description 10/27/2023 11:15 AM EDT Office Visit [place] [address] Elly Alston MD [facility] DR HOSPICE [place] [address] 10/27/2023 1:00 PM EDT Office Visit Speech Therapy at [place] [address] Debra Franco, RETURNER 11/03/2023 2:00 PM EDT Office Visit Speech Therapy at [address] Debra Franco, RETURNER 11/08/2023 2:30 PM EDT Appointment MRI at [place] [address] Navjot Grider MD [facility] [address] [place] [address] 11/09/2023 1:45 PM EDT Office Visit Hematology and Oncology at [place] [address] Isabell Jacob MD [facility] [place] [address] 11/11/2023 10:30 AM EDT Office Visit Radiation Oncology at [place] [address] Nicki Sharpe MD [facility] [place] [address] 11/15/2023 10:00 AM EDT Office Visit Speech Therapy at [address] Debra Franco, RETURNER 11/16/2023 9:00 AM EDT Office Visit Hematology and Oncology at [place] [address] Bisi Nam 11/22/2023 10:00 AM EDT Office [place] [address] Debra Franco, RETURNER 11/30/2023 9:00 AM EDT Office Visit Hematology [place] [address] Bisi Nam 12/14/2023 9:00 AM EDT Office Visit Hematology [place] [address] Bisi Nam 12/28/2023 9:00 AM EDT Office Visit Hematology [place] [address] Bisi Nam documented as of this encounter Visit Diagnoses Not on filedocumented in this encounter Care Teams Quality Control Inspector Heading Relationship Specialty Start Date End Date Molina Herr MD [facility] [address] [place] [address] PCP - General 01/27/10 documented as of this encounter
--- OUTSIDE RECORDS SUMMARY | 2023-10-17 15:12 | XMS_ITS | Encounter Summary ---
Author Organization Formerly [facility] [place] [address] Care Team Providers Care Ecmo Specialist Name Role Phone Molina Herr MD Primary Care Provider [phone] Encounter Details Date Type Department Care Team (Late st Contact Info) Description 03/18/2020 [place] [phone] Tata Ellis RN Social History Tobacco Use Types Packs/Day [...] AM EDT Office [place] [phone] Elly Alston MD [facility] HOSPICE [place] [address] 10/27/2023 1:00 PM EDT Office [place] [address] Debra Franco, ROLANDO 11/03/2023 2:00 PM EDT Office [place] [address] Debra Franco, TAXATION AGENT 11/08/2023 2:30 PM EDT Appointment MRI at [place] [phone] Navjot Grider MD [facility] DR [place] [address] 11/09/2023 1:45 PM EDT Office Visit Hematology and Oncology at [place] [phone] Isabell Jacob MD [facility] [place] [address] 11/11/2023 10:30 AM EDT Office Visit Radiation Oncology at [place] [phone] Nicki Sharpe MD [facility] [place] [address] 11/15/2023 10:00 AM EDT Office [place] [address] Debra Franco, TAXATION AGENT 11/16/2023 9:00 AM EDT Office Visit Hematology [place] [address] Bisi Nam 11/22/2023 10:00 AM EDT Office [place] [address] Debra Franco, TAXATION AGENT 11/30/2023 9:00 AM EDT Office Visit Hematology [place] [address] Bisi Nam 12/14/2023 9:00 AM EDT Office Visit Hematology [place] [address] Bisi Nam 12/28/2023 9:00 AM EDT Office Visit Hematology [place] [address] Bisi Nam documented as of this encounter Visit Diagnoses Not on filedocumented in this encounter Care Teams Ecmo Specialist Relationship Specialty Start Date End Date Molina Herr MD [facility] [address] [place] [address] PCP - General 01/27/10 documented as of this encounter
--- OUTSIDE RECORDS SUMMARY | 2023-10-17 15:12 | XMS_ITS | Encounter Summary ---
Author Organization [facility] [place] [address] Care Team Providers Care Merchandise Planning Manager Name Role Phone Molina Herr MD Primary Care Provider [phone] Encounter Details Date Type Department Care Team (Latest Contact Info) Description 01/03/2019 10:43 AM EDT - 01/03/2019 11:59 PM EDT [place] [address] Discharge Disposition: Home Social History [...] 20 mg by mouth daily. 4 03/08/2014 bdsgwafgjmxcy-TG-oqmz (SOURCE CF) 200-10 mcg-mg Chew Take 1 [...] Take 1,000 Units by mouth daily. 07/28/2023 [place]-3 Fatty Acids-Vitamin E (FISH OIL) 1,000 mg Capsule Take 2,000 mg by mouth daily. 02/04/2021 aspirin 81 mg EC tablet Take 81 mg by mouth daily. 07/05/2023 documented as of this encounter Plan of Treatment Upcoming Encounters Date Type Department Care Team (Late st Contact Info) Description 10/27/2023 11:15 AM EDT Office Visit Palliative Medicine at [place] [phone] Elly Alston MD [facility] HOSPICE [place] [address] 10/27/2023 1:00 PM EDT Office Visit Speech Therapy at [address] Debra Franco, ALTO SINGER 11/03/2023 2:00 PM EDT Office Visit Speech Therapy at [place] [phone] Debra Franco, ALTO SINGER 11/08/2023 2:30 PM EDT Appointment MRI at [place] [phone] Navjot Grider MD [facility] [place] [address] 11/09/2023 1:45 PM EDT Office Visit Hematology and Oncology at [place] [address] Isabell Jacob MD [facility] [place] [address] 11/11/2023 10:30 AM EDT Office Visit [place] [address] Nicki Sharpe MD [facility] [place] [address] 11/15/2023 10:00 AM EDT Office [place] [address] Debra Franco, ALTO SINGER 11/16/2023 9:00 AM EDT Office Visit Hematology [place] [address] Bisi Nam 11/22/2023 10:00 AM EDT Office [place] [address] Debra Franco, ALTO SINGER 11/30/2023 9:00 AM EDT Office Visit Hematology [place] [address] Bisi Nam 12/14/2023 9:00 AM EDT Office Visit Hematology [place] [address] Bisi Nam 12/28/2023 9:00 AM EDT Office Visit Hematology [place] [address] Bisi Nam documented as of this encounter Procedures Procedure Name Priority Date/Time Associated Diagnosis Comments BODY FLUID HOLD Routine 01/03/2019 8:06 AM EDT CRYSTAL EXAM BODY FLUID Routine 01/03/2019 8:06 AM EDT CELL COUNT BODY FLUID Routine 01/03/2019 8:06 AM EDT documented in this encounter Results * Body Fluid HOLD (01/03/2019 8:06 AM EDT) HOLD, FLD Sample in lab. [facility] Body fluid specimen (specimen) Other / Unknown 01/03/2019 8:06 AM EDT 01/03/2019 10:55 AM EDT Molina Herr MD BODY FLUIDS AND STOO LS ORDERABLES [facility] [place] [address] * Crystal Exam Body Fluid (01/03/2019 8:06 AM EDT) Crystal BF Type Knee fluid Rt [facility] Crystal Exam, Fld None Seen [facility] Specimen from lower limb (specimen) Other / Unknown 01/03/2019 8:06 AM EDT 01/03/2019 10:49 AM EDT Narrative Resulting Agency Comment Spec In Lab Molina Herr MD BODY FLUIDS AND STOO LS ORDERABLES Performing Organization Address City/[facility]/ZIP Co de Phone Number [facility] [place] [address] * Cell Count Body Fluid (01/03/2019 8:06 AM EDT) Body Fluid Source Knee, Right [facility] Color, Fld Yellow [facility] Appearance, Fld Clear [facility] WBC Count, Fld 227 /mcl [facility] Comment: Counts may be inaccurate due to age of specimen Guideline listed below apply to all body fluids. Differentials on BAL specimens are performed by the Cytology lab section. When Body Fluid WBC count is greater than Zero, a smear is made and scanned. All scan information is correlated with numeric results prior to being released to patients chart. Polymorphonuclear cells BF % 8 % [facility] Comment: Polymorphonuclear cell percent and absolute values may contain Neutrophils, Eosinophils, and Basophils. Body fluid smear will be scanned manually for concordance. Mononuclear cells BF % 92 % [facility] Comment: Mononuclear cell percent and absolute values may contain Lymphocytes and Monocytes. Body fluid smear will be scanned manually for concordance. Polymorphonuclear cells BF ABS 19 /[facility] Comment: Polymorphonuclear cell percent and absolute values may contain Neutrophils, Eosinophils, and Basophils. Body fluid smear will be scanned manually for concordance. Mononuclear cells BF ABS 208 /[facility] Comment: Mononuclear cell percent and absolute values may contain Lymphocytes and Monocytes. Body fluid smear will be scanned manually for concordance. Specimen from lower limb (specimen) Other / Unknown 01/03/2019 8:06 AM EDT 01/03/2019 10:49 AM EDT Narrative Resulting Agency Comment Spec In Lab Molina Herr MD BODY FLUIDS AND STOO LS ORDERABLES [facility] [place] [phone] documented in this encounter Visit Diagnoses Not on filedocumented in this encounter Care Teams Merchandise Planning Manager Relationship Specialty Start Date End Date Molina Herr MD [address] [place] [address] PCP - General 01/27/10 documented as of this encounter
--- OUTSIDE RECORDS SUMMARY | 2023-10-17 15:12 | XMS_ITS | Encounter Summary ---
[place] [address] Care Team Providers Care Mineral Engineer Name Role Phone Molina Herr MD Primary Care Provider [phone] Encounter Details Date Type Department Care Team (Latest Contact Info) Description 11/02/2018 Community Orders External [phone] Molina Herr MD [address] [address] [place] [address] Primary osteoarthritis of left knee Social History Tobacco Use Types Packs/Day [...] AM EDT Office Visit [place] [address] Elly Alston MD [facility] [address] HOSPICE [place] [address] 10/27/2023 1:00 PM EDT Office Visit Speech Therapy at [place] [phone] Debra Franco, FELT HAT POUNCING OPERATOR HAND 11/03/2023 2:00 PM EDT Office Visit Speech Therapy at [place] [phone] Debra Franco, FELT HAT POUNCING OPERATOR HAND 11/08/2023 2:30 PM EDT [place] [address] Navjot Grider MD [facility] [address] HEMATOLOGY [place] [address] 11/09/2023 1:45 PM EDT Office Visit Hematology and Oncology at [place] [phone] Isabell Jacob MD [facility] [place] [place] [address] 11/11/2023 10:30 AM EDT Office Visit Radiation Oncology at [place] [address] Nicki Sharpe MD [facility] [place] [address] 11/15/2023 10:00 AM EDT Office Visit Speech Therapy at [place] [phone] Debra Franco, FELT HAT POUNCING OPERATOR HAND 11/16/2023 9:00 AM EDT Office Visit Hematology and Oncology at [place] [phone] Bisi Nam 11/22/2023 10:00 AM EDT Office [place] [address] Debra Franco, FELT HAT POUNCING OPERATOR HAND 11/30/2023 9:00 AM EDT Office Visit Hematology [place] [address] Bisi Nam 12/14/2023 9:00 AM EDT Office Visit Hematology [place] [address] Bisi Nam 12/28/2023 9:00 AM EDT Office Visit Hematology [place] [address] Bisi Nma documented as of this encounter Visit Diagnoses Diagnosis Primary osteoarthritis of left knee Primary localized osteoarthrosis, lower leg documented in this encounter Care Teams Mineral Engineer Relationship Specialty Start Date End Date Molina Herr MD [address] [place] [address] PCP - General 01/27/10 documented as of this encounter
--- OUTSIDE RECORDS SUMMARY | 2023-10-17 15:12 | XMS_ITS | Encounter Summary ---
Author Organization [facility] [place] [address] Care Team Providers Care Career Technical Education Instructor Name Role Phone Molina Herr MD Primary Care Provider [phone] Reason for Visit * Reason Comments Left Knee Pain * Consultation (Routine) - Closed Specialty Diagnoses / Procedures Referred By Contac t Referred To Contact Orthopaedics Diagnoses Pain in left knee Pain in left knee Procedures XR KNEE STANDING ALIGNMENT AP LAT [place] SKYLINE LEFT Molina Herr MD [address] [place] [address] Ernie Fuchs MD [facility] [place] [address] Referral ID Status Reason Start Date Expiration Date V isits Requested Visits Authorized [id number] Closed Consult, Test & Treat 11/07/2018 11/07/2019 1 1 Encounter Details Date Type Department Care Team (Latest Contact Info) Description 11/29/2018 12:40 PM EDT Office [place] [address] Clinic, Dr Fuchs Team None Primary osteoarthritis [...] Sign Reading Time Taken Comments Blood Pressure 162/77 11/29/2018 12:33 PM EDT Pulse 70 11/29/2018 12:33 PM EDT Temperature - - Respiratory Rate - - Oxygen Saturation - - Inhaled Oxygen Concentration - - Weight 81.2 kg (179 lb) 11/29/2018 12:33 PM EDT measured Height 169.3 cm (5' 6.65) 11/29/2018 12:33 PM E DT measured Body Mass Index 28.33 11/29/2018 12:33 PM EDT documented in this encounter Progress Notes * Yanet Masterson PA - 11/29/2018 12:40 PM EDT PATIENT NAME: Perfecto Polk AGE: 78 y.o. MR#: [id number] DATE OF VISIT: 11/29/2018 HISTORY OF PRESENT ILLNESS Mr. Polk is a 78 y.o. year old male who comes into clinic today for left knee pain. He has a history of intermittent problems with both knees over the years. He has a remote history of right knee arthroscopy about 30 years ago. He has not had any surgeries on the left knee. About 1 month ago he developed an acute flareup and left knee pain. He denies any specific injuries or inciting events. 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 He tries to stay active exercising at the gym, including weight training, stationary biking, and regular swimming. His pain was primarily medial sided during this acute event. He does also get pain walking downstairs wearing a deep bending and squatting position. His pain is decreasedsignificantly. He is managed with ice and NSAIDs at home and has cut out his long distance walking which has been helpful. He does notice some crepitus and clicking especially when he is in deep bends and standing up from a seated position. He denies any instability. His knees have not been swollen. He is not currently wearing a brace. He has tried various braces over the years, including a medial sorting cows worker brace. He has done physical therapy in the past. He has not had any injections into the knees. ROS: Negative for fever, chills, SOB, chest pain, nausea, vomiting, and diarrhea. Patient's medications, allergies, past medical, surgical, social and family histories were reviewedand updated as appropriate. PAST MEDICAL HISTORY: Past Medical History: Diagnosis Date ??? Lumbar degenerative disc disease 08/21/2010 PAST SURGICAL HISTORY: Past Surgical History: Procedure Laterality Date ??? PRO COLONOSCOPY, BIOPSY 01/10/2013 COLONOSCOPY FLEXIBLE, WITH BX performed by Dominick Earl MD at [facility] ENDOSCOPY ??? PRO COLONOSCOPY, REMV LESN, SNARE N/A 01/12/2018 COLONOSCOPY, POLYPECTOMY, REMOVAL LESION BY SNARE (WRVU 4.67) performed by Guerda Coombs MD at [facility] ENDOSCOPY ??? PRO LAP, APPENDECTOMY N/A 03/09/2017 LAPAROSCOPIC APPENDECTOMY (WRVU 9.45) performed by Saurav Chen MD at [facility] MAIN OR FAMILY HISTORY: Family History Problem Relation Age of Onset ??? Cancer Brother SOCIAL HISTORY: Social History Socioeconomic History ??? Marital status: Spouse name: Not on file ??? Number of children: Not on file ??? Years of education: Not on file ??? Highest education level: Not on file Occupational History ??? Not on file Social Needs ??? Financial resource strain: Not on file ??? Food insecurity: Worry: Not on file Inability: Not on file ??? Transportation needs: Medical: Not on file Non-medical: Not on file Tobacco Use ??? Smoking status: Never Smoker ??? Smokeless tobacco: Never Used Substance and Sexual Activity ??? Alcohol use: Yes Alcohol/week: 3.0 standard drinks Types: 1 Glasses of wine, 1 Cans of beer, 1 Shots of liquor per week ??? Drug use: No ??? Sexual activity: Not on file Lifestyle ??? Physical activity: Days per week: Not on file Minutes per session: Not on file ??? Stress: Not on file Relationships ??? Social connections: Talks on phone: Not on file Gets together: Not on file Attends restorationist service: Not on file Active member of club or organization: Not on file Attends meetings of clubs or organizations: Not on file Relationship status: Not on file ??? Intimate partner violence: Fear of current or ex partner: Not on file Emotionally abused: Not on file Physically abused: Not on file Forced sexual activity: Not on file Other Topics Concern ??? Not on file Social History Narrative ??? Not on file Current Outpatient Medications on File Prior to Visit Medication Sig Dispense Refill ??? ibuprofen (ADVIL;MOTRIN) 400 mg Tablet Take 400 mg by mouth every 6 hours as needed for Pain. ??? acetaminophen (TYLENOL) 325 mg Tablet Take 2 tablets by mouth every 6 hours as needed for Pain.30 tablet 0 ??? omeprazole (PRILOSEC) 20 mg Capsule, Delayed Release(E.C.) Take 20 mg by mouth daily. 4 ??? Cholecalciferol, Vitamin D3, 1,000 unit Capsule Take 1,000 Units by mouth daily. ??? [place]-3 Fatty Acids-Vitamin E (FISH OIL) 1,000 mg Capsule Take 2,000 mg by mouth daily. ??? ebrgcqcxakqyn-VG-tsup (SOURCE CF) 200-10 mcg-mg Chew Take 1 tablet by mouth daily. ??? aspirin 81 mg EC tablet Take 81 mg by mouth daily. ??? levothyroxine (SYNTHROID) 25 mcg tablet 25MCG = 1 Tablet(s), PO, Once daily ??? atorvastatin (LIPITOR) 10 mg tablet 10mg, PO, Once daily ??? [DISCONTINUED] vitamin E (VITAMIN E) 400 unit Capsule Take by mouth daily. No current facility-administered medications on file prior to visit. Physical Exam Blood pressure 162/77, pulse 70, height 169.3 cm (5' 6.65), weight 81.2 kg (179 lb). Constitutional: oriented to person, place, and time and well-developed, well- nourished, and in no distress. Skin: Skin is warm and dry. Left Knee Exam: Trace effusion. No erythema, ecchymosis, or skin breakdown. ROM 120 deg flexion, 0 deg extension. Mild medial joint line tenderness. No lateral joint line tenderness. Stable to varus/valgus stress. Negative Anterior/Posterior drawer. Negative Lachmans with a firm endpoint. Negative Steinmann's and Jamar testing. Able to do a straight leg raise without lag. Normal sensation and motor function distally. DP/PT pulses 2+. RADIOLOGICAL STUDIES: I reviewed X-rays taken today of the left knee which shows severe tricompartmental DJD, with near complete loss of medial and PF joint spaces, with marginal osteophytes, and subchondral sclerosis. ASSESSMENT/PLAN: Perfecto Polk is a 78 y.o. male who presents to the clinic with left knee pain. He has severe DJD. We reviewed his x-rays together today. There has been slight interval progression since his last evaluation 4 years ago. We reviewed the etiology and progression of arthritis. He would like to avoidsurgery if possible, which in the future for him would mean total knee arthroplasty. I think he is doing a great job managing conservatively for the time being. We discussed that if his symptoms do worsen we can try an intra-articular cortisone injection. However, if his symptoms respond well to NSAIDs, ice, and rest he can continue managing this way. He already does a great job maintaining his qu ad, abductor, and core strength, and can always push this further if he feels the need. I do not think any specific braces will be very beneficial for him at this time, though he does have some at home already. He can follow-up with us on an as-needed basis. documented in this encounter Plan of Treatment Upcoming Encounters Date Type Department Care Team (Late st Contact Info) Description 10/27/2023 11:15 AM EDT Office [place] [address] Elly Alston MD [facility] DR HOSPICE AND [place] [address] 10/27/2023 1:00 PM EDT Office [place] [address] Debra Franco, SALMON GILLNET VESSEL OPERATOR 11/03/2023 2:00 PM EDT Office [place] [address] Debra Franco, SALMON GILLNET VESSEL OPERATOR 11/08/2023 2:30 PM EDT Appointment MRI at [place] [address] Navjot Grider MD [facility] DR [place] [address] 11/09/2023 1:45 PM EDT Office Visit Hematology and Oncology at [address] Isabell Jacob MD [facility] [place] [address] 11/11/2023 10:30 AM EDT Office Visit Radiation Oncology at [address] Nicki Sharpe MD [facility] [place] [address] 11/15/2023 10:00 AM EDT Office Visit Speech Therapy at [place] [phone] Debra Franco, ROLANDO 11/16/2023 9:00 AM EDT Office Visit Hematology and Oncology at [place] [phone] Bisi Nam 11/22/2023 10:00 AM EDT Office Visit Speech Therapy at [place] [phone] Debra Franco, ROLANDO 11/30/2023 9:00 AM EDT Office Visit Hematology [place] [address] Bisi Nam 12/14/2023 9:00 AM EDT Office Visit Hematology [place] [address] Bisi Nam 12/28/2023 9:00 AM EDT Office Visit Hematology [place] [address] Bisi Nam documented as of this encounter Visit Diagnoses Diagnosis Primary osteoarthritis of left knee (DJD) Primary localized osteoarthrosis, lower leg documented in this encounter Care Teams Career Technical Education Instructor Relationship Specialty Start Date End Date Molina Herr MD [address] [address] [place] [address] PCP - General 01/27/10 documented as of this encounter
--- OUTSIDE RECORDS SUMMARY | 2023-10-17 15:12 | XMS_ITS | Encounter Summary ---
Author Organization [facility] [place] [address] Care Team Providers Care Parimutuel Clerk Name Role Phone Molina Herr MD Primary Care Provider [phone] Encounter Details Date Type Department Care Team (Latest Contact Info) Description 04/05/2019 11:56 AM EST - 04/05/2019 11:59 PM [place] [address] Discharge Disposition: Home Social History [...] 20 mg by mouth daily. 4 03/08/2014 [id number] (SOURCE CF) 200-10 mcg-mg Chew Take 1 [...] Take 1,000 Units by mouth daily. 07/28/2023 [place]-3 Fatty Acids-Vitamin E (FISH OIL) 1,000 mg Capsule Take 2,000 mg by mouth daily. 02/04/2021 aspirin 81 mg EC tablet Take 81 mg by mouth daily. 07/05/2023 documented as of this encounter Plan of Treatment Upcoming Encounters Date Type Department Care Team (Late st Contact Info) Description 10/27/2023 11:15 AM EDT Office Visit Palliative Medicine at [place] [phone] Elly Alston MD [facility] [address] HOSPICE [place] [address] 10/27/2023 1:00 PM EDT Office Visit Speech Therapy at [address] Debra Franco, [employer]ILER TESTER 11/03/2023 2:00 PM EDT Office Visit Speech Therapy at [place] [phone] Debra Franco, BOILER TESTER 11/08/2023 2:30 PM EDT Appointment MRI at [place] [phone] Navjot Grider MD [facility] [place] [address] 11/09/2023 1:45 PM EDT Office Visit Hematology and Oncology at [place] [address] Isabell Jacob MD [facility] [place] [address] 11/11/2023 10:30 AM EDT Office Visit [place] [address] Nicki Sharpe MD [facility] [place] [address] 11/15/2023 10:00 AM EDT Office [place] [address] Debra Franco, [employer]ILER TESTER 11/16/2023 9:00 AM EDT Office Visit Hematology [place] [address] Bisi Nam 11/22/2023 10:00 AM EDT Office [place] [address] Debra Franco, BOILER TESTER 11/30/2023 9:00 AM EDT Office Visit Hematology [place] [address] Bisi Nam 12/14/2023 9:00 AM EDT Office Visit Hematology [place] [address] Bisi Nam 12/28/2023 9:00 AM EDT Office Visit Hematology [place] [address] Bisi Nam documented as of this encounter Procedures Procedure Name Priority Date/Time Associated Diagnosis Comments SCAN, PERIPHERAL BLOOD Routine 0 8:49 AM EST HEMOGRAM Routine 04/05/2019 8:49 AM EST DIFFERENTIAL, AUTOMATED Routine 04/05/2019 8:49 AM EST GOLD TUBE HOLD Routine 04/05/2019 8:49 AM EST TROPONIN Routine 04/05/2019 8:49 AM EST PRO-BRAIN NATRIURETIC PEPTIDE Routine 04/05/2019 8:49 AM EST COMPREHENSIVE METABOLIC PANEL Routine 04/05/2019 8:49 AM EST documented in this encounter Results * Scan, Peripheral Blood (04/05/2019 8:49 AM EST) Pathologist [facility] Plat estimate Normal [facility] RBC Morphology Abnormal [facility] Atypical Lymph Moderate [facility] Toxic Granulation Present [facility] Dohle Bodies Present [facility] Blood specimen (specimen) Venous Draw / Unknown 04/05/2019 8:49 AM EST 04/05/2019 12:04 PM EST Narrative Resulting Agency Comment Spec In Lab Molina Herr MD HEMATOLOGY ORDERABLE S Performing Organization Address City/[facility]/ZIP Co de Phone Number [facility] [place] [address] * Gold Tube HOLD (04/05/2019 8:49 AM EST) [facility] Gold Hold Sample in lab. [facility] Blood specimen (specimen) No Charge / Unknown 04/05/2019 8:49 AM EST 04/05/2019 12:05 PM EST Molina Herr MD CHEMISTRY ORDERABLES Performing Organization Address City/[facility]/ZIP Co de Phone Number [facility] [place] [address] * pro-Brain Natriuretic Peptide (04/05/2019 8:49 AM EST) [facility] NT-proBNP 82 <=450 pg/mL [facility] Blood specimen (specimen) Venous Draw / Unknown 04/05/2019 8:49 AM EST 04/05/2019 12:04 PM EST Narrative Resulting Agency Comment Spec In Lab Molina Herr MD CHEMISTRY ORDERABLES Performing Organization Address [facility]/ZIP Co de Phone Number [facility] [place] [address] * Troponin (04/05/2019 8:49 AM EST) [facility] Troponin-T <0.01 0.00 - 0.00 ng/mL [facility] Comment: The 99th percentile for Troponin T is less than 0.01 ng/mL, any detectable cTnT concentration using this assay should be considered elevated. According to the third universal definition of myocardial infarction the following criteria with a clinical presentation consistent with acute myocardial ischemia meets the diagnosis for a myocardial infarction (NC). Detection of a rise and/or fall of cTnT, with at least one value greater than the 99th percentile (> or = 0.01) and with at least one of the following ?? Symptoms of ischemia ?? New or presumed new significant WA-ioyvgtv-Y wave (ST-T) changes or new left bundle [...] additional sample may be indicated. Reference: Third [place] Definition of Myocardial Infarction. Journal of the [place] College [employer] 2012;60:1581-98 Blood specimen (specimen) Venous Draw / Unknown 04/05/2019 8:49 AM EST 04/05/2019 12:04 PM EST Narrative Resulting Agency Comment Spec In Lab Molina Herr MD CHEMISTRY ORDERABLES Performing Organization Address [facility]/ZIP Co de Phone Number [facility] [place] [address] * Differential, Automated (04/05/2019 8:49 AM EST) [facility] Neutrophil % 50.0 % [facility] Neutrophil Absolute 2.12 1.70 - 6.10 x10(3)/mcL [facility] Lymph % 32.8 % [facility] Lymphocytes Abs 1.4 0.9 - 3.2 x10(3)/[facility] Monocyte % 11.6 % [facility] Monocyte Abs 0.5 0.3 - 0.9 x10(3)/[facility] Eos % 4.2 % [facility] Eosinophils Abs 0.2 0.0 - 0.4 x10(3)/[facility] Basophil % 0.9 % [facility] Baso Absolute 0.0 0.0 - 0.1 x10(3)/[facility] Immature Gran % 0.50 % [facility] Comment: Immature granulocytes(IG's)percentage and absolute count will include metamyelocytes, myelocytes, and promyelocytes. Blood smears from CBCs yielding IG's will be scanned manually for concordance. If this scan disagrees with the automated IG or if promyelocytes are noted, a manual differential will be performed. Immature Gran Absolute 0.02 0.00 - 0.04 x10(3)/[facility] Blood specimen (specimen) Venous Draw / Unknown 04/05/2019 8:49 AM EST 04/05/2019 12:04 PM EST Narrative Resulting Agency Comment Spec In Lab Molina Herr MD HEMATOLOGY ORDERABLE S Performing Organization Address City/State/[facility] Co de Phone Number [facility] [place] [address] * (ABNORMAL) Hemogram (04/05/2019 8:49 AM EST) White Blood Cell 4.2 4.0 - 9.5 x10(3)/mc L [facility] Red Blood Cell 4.63 4.58 - 5.54 x10(6)/ L [facility] Hemoglobin 13.2(L) 13.7 - 16.5 gm/dL [facility] Hematocrit 42.5 40.5 - 48.5 % [facility] Mean Cell Volume 91.8 82.9 - 93.1 fL [facility] Mean Cell Hemoglobin 28.5 27.5 - 32.1 pg [facility] Mean Cell Hemoglobin Concentration 31.1(L) 32.0 - 35.7 gm/dL [facility] Platelet 291 145 - 357 x10(3)/mc L [facility] RDW Standard Deviation 44.9 36.0 - 45.0 fL [facility] RDW coefficient of variation 13.2 11.4 - 13.8 % [facility] Mean Platelet Volume 9.8 7.6 - 12.9 fL [facility] NRBC% auto 0.0 % [facility] NRBC Absolute 0.000 0.000 - 0.000 x10(3)/mc L [facility] Blood specimen (specimen) Venous Draw / Unknown 04/05/2019 8:49 AM EST 04/05/2019 12:04 PM EST Narrative Resulting Agency Comment Spec In Lab Molina Herr MD HEMATOLOGY ORDERABLE S [facility] [place] [address] * (ABNORMAL) Comprehensive metabolic panel (non-fasting) (04/05/2019 8:49 AM EST) Glucose 77 65 - 199 mg/dL [facility] Comment:Diabetes: >=200 mg/d L plus symptoms Blood Urea Nitrogen 16 10 - 20 mg/dL [facility] Creatinine 1.27 0.80 - 1.50 mg/dL [facility] Sodium 142 135 - 145 mmol/L [facility] Potassium 4.1 3.5 - 5.0 mmol/L [facility] Comment: Please note: ??Patients with WBC >100,000 may have falsely elevated Potassium levels. ??For accurate Potassium quantification in these patients send serum separator tube (gold top) for subsequent determinations. ??Contact the Clinical Chemistry Laboratory if there are any questions. Chloride 103 98 - 107 mmol/L [facility] Carbon Dioxide 26 22 - 31 mmol/L [facility] Anion Gap 13 5 - 15 mmol/L [facility] Calcium 9.6 8.5 - 10.5 mg/dL [facility] Protein, Total 7.2 6.1 - 8.0 gm/dL [facility] Albumin 4.0 3.2 - 5.2 gm/dL [facility] Aspartate Aminotransferase 21 0 - 39 unit/L [facility] Alanine Aminotransferase 17 0 - 55 unit/L [facility] Alkaline Phosphatase 54 40 - 130 unit/L [facility] Bilirubin, Total 0.3 0.2 - 1.3 mg/dL [facility] Est Glomerular Filtration Rate 55(L) >=60 mL/min/1. 73 m?? [facility] Comment: The eGFR was calculated using the CKD-EPI equation. As with all creatinine based estimates of kidney function, eGFR values calculated with the CKD-EPI equation are not accurate in patients with acute kidney failure, extremes of body mass or the acutely ill. http://[employer]/DHMCnkf eGFR 63 >=60 mL/min/1. 73 m?? [facility] Comment: The eGFR was calculated using the CKD-EPI equation. As with all creatinine based estimates of kidney function, eGFR values calculated with the CKD-EPI equation are not accurate in patients with acute kidney failure, extremes of body mass or the acutely ill. http://[employer]/DHMCnkf Blood specimen (specimen) Venous Draw / Unknown 04/05/2019 8:49 AM EST 04/05/2019 12:04 PM EST Narrative Resulting Agency Comment Spec In Lab Molina Herr MD CHEMISTRY ORDERABLES [facility] [place] [address] documented in this encounter Visit Diagnoses Not on filedocumented in this encounter Care Teams Parimutuel Clerk Relationship Specialty Start Date End Date Molina Herr MD [facility] [address] [place] [address] PCP - General 01/27/10 documented as of this encounter
--- OUTSIDE RECORDS SUMMARY | 2023-10-17 15:12 | XMS_ITS | Encounter Summary ---
Author Organization [facility] Address [facility] [place] [address] Care Team Providers Care Stem Teacher Name Role Phone Molina Herr MD Primary Care Provider [phone] Encounter Details Date Type Department Care Team (Latest Contact Info) Description 11/29/2018 11:37 AM EDT - 11/29/2018 11:59 PM EDT Hospital Encounter XRay at [address] [place] [address] Ernie Fuchs MD [facility] [place] [address] Left knee pain, unspecified chronicity Discharge Disposition: Home Social History [...] 20 mg by mouth daily. 4 03/08/2014 jlvlyrxffwxyx-DR-[id number] (SOURCE CF) 200-10 mcg-mg Chew Take 1 [...] Take 1,000 Units by mouth daily. 07/28/2023 [place]-3 Fatty Acids-Vitamin E (FISH OIL) 1,000 mg Capsule Take 2,000 mg by mouth daily. 02/04/2021 aspirin 81 mg EC tablet Take 81 mg by mouth daily. 07/05/2023 documented as of this encounter Plan of Treatment Upcoming Encounters Date Type Department Care Team (Late st Contact Info) Description 10/27/2023 11:15 AM EDT Office [place] [address] Elly Alston MD [facility] DR HOSPICE [place] [address] 10/27/2023 1:00 PM EDT Office [place] [address] Debra Franco, [employer] 11/03/2023 2:00 PM EDT Office [place] [address] Debra Franco, [employer] 11/08/2023 2:30 PM EDT Appointment MRI [place] [facility] [place] [address] Navjot Grider MD [facility] [place] [address] 11/09/2023 1:45 PM EDT Office Visit Hematology and Oncology at [place] [phone] Isabell Jacob MD [facility] [place] [address] 11/11/2023 10:30 AM EDT Office Visit Radiation Oncology at [address] Nicki Sharpe MD [facility] [address] 11/15/2023 10:00 AM EDT Office Visit Speech Therapy at [place] [phone] Debra Franco, [employer] 11/16/2023 9:00 AM EDT Office Visit Hematology [place] [address] Bisi Nam 11/22/2023 10:00 AM EDT Office [place] [address] Debra Franco, [employer] 11/30/2023 9:00 AM EDT Office Visit Hematology [place] [address] Bisi Nam 12/14/2023 9:00 AM EDT Office Visit [place]ematology [place] [address] Bisi Nam 12/28/2023 9:00 AM EDT Office Visit [place]emat[place] [address] Bisi Nam documented as of this encounter Procedures Procedure Name Priority Date/Time Associated Diagnosis Comments XR KNEE STANDING ALIGNMENT AP LAT [place] SKYLINE LEFT Routine 11/29/2018 12:01 PM EDT Left knee pain, unspecified chronicity documented in this encounter Results * XR Knee Standing Alignment AP Lat [place] Left (11/29/2018 12:01 PM EDT) Anatomical Region Laterality Modality Left Digital Radiogra phy Impressions 11/29/2018 5:00 PM EDT 1. ??Bilateral knee osteoarthritis. 2. ??Severe disc space narrowing is present at the medial compartments and the lateral patellofemoral compartments bilaterally. I have personally reviewed the image(s) and the residents interpretation and agree with the findings, Denny Kessler at 11/29/2018 5:00 PM Thank you for letting us participate in the care of this patient. For questions regarding this report, please contact the number below. ? Electronically signed by: Denny Kessler [facility] ([phone]), at 11/29/2018 5:00 PM Narrative 11/29/2018 5:00 PM EDT EXAMINATION: XR KNEE STANDING ALIGNMENT AP LAT [place] SKYLINE LEFT CLINICAL HISTORY: Left knee pain, unspecified chronicity TECHNIQUE: Separate images of the pelvis, knees and feet were acquired in the AP projection with the patient standing. These images were stitched together to form a composite image of the pelvis and legs allowing for evaluation of lower extremity alignment in the weight bearing position. AP bilateral knees, PA Chaves, lateral left knee, bilateral sunrise knee radiographs. COMPARISON: Knee radiographs dated 07/19/2005 and 07/06/2005. FINDINGS: The standing alignment study documents presence of a mild leg length discrepancy. The left lower extremity is longer than the right. This discrepancy is present both at the femur and the tibia. Mechanical axis is slightly medial of midline bilaterally. At the left knee no large effusion or focal swelling is identified. The patellofemoral view documents severe lateral narrowing of the patellofemoral compartment associated with lateral displacement of the patella. This is progressed significantly compared to thousand 6. Medial compartment narrowing is present bilaterally. The degree of narrowing becomes more pronounced with flexion as displayed on the Chaves view. Subchondral sclerosis and osteophyte formation is present throughout. Procedure Note Denny Kessler MD - 11/29/2018 EXAMINATION: XR KNEE STANDING ALIGNMENT AP LAT [place] SKYLINE LEFT CLINICAL HISTORY: Left knee pain, unspecified chronicity TECHNIQUE: Separate images of the pelvis, knees and feet were acquired inthe AP projection with the patient standing. These images were stitched togetherto form a composite image of the pelvis and legs allowing for evaluation oflower extremity alignment in the weight bearing position. AP bilateral knees,PA Chaves, lateral left knee, bilateral sunrise knee radiographs. COMPARISON: Knee radiographs dated 07/19/2005 and 07/06/2005. FINDINGS: The standing alignment study documents presence of a mild leg length discrepancy. The left lower extremity is longer than the right. Thisdiscrepancy is present both at the femur and the tibia. Mechanical axis is slightly medial of midline bilaterally. At the left knee no large effusion or focal swelling is identified. The patellofemoral view documents severe lateral narrowing of thepatellofemoral compartment associated with lateral displacement of the patella. This is progressed significantly compared to thousand 6. Medial compartment narrowing is present bilaterally. The degree ofnarrowing becomes more pronounced with flexion as displayed on the Chaves view. Subchondral sclerosis and osteophyte formation is present throughout. IMPRESSION 1. Bilateral knee osteoarthritis. 2. Severe disc space narrowing is present at the medial compartments andthe lateral patellofemoral compartments bilaterally. I have personally reviewed the image(s) and the residents interpretationand agree with the findings, Denny Kessler at 11/29/2018 5:00 PM Thank you for letting us participate in the care of this patient. Forquestions regarding this report, please contact the number below. Electronically signed by: Denny Kessler [facility]([phone]), at 11/29/2018 5:00 PM Ernie Fuchs MD IMG DX ORDERABLES documented in this encounter Visit Diagnoses Diagnosis Left knee pain, unspecified chronicity documented in this encounter Care Teams Stem Teacher Relationship Specialty Start Date End Date Molina Herr MD [facility] [address] [place] [address] PCP - General 01/27/10 documented as of this encounter
--- OUTSIDE RECORDS SUMMARY | 2023-10-17 15:13 | XMS_ITS | Encounter Summary ---
Author Organization [facility] [place] [address] Care Team Providers Care Flat Bed Operator Name Role Phone Molina Herr MD Primary Care Provider [phone] Reason for Visit * Reason Comments Abdominal Pain * Auth/Cert Specialty Diagnoses / Procedures Referred By Contac t Referred To Contact Diagnoses Acute appendicitis Acute Appendicitis Procedures LAPAROSCOPIC APPENDECTOMY (WRVU 9.45) Referral ID Status Reason Start Date Expiration Date Visits Re quested Visits Authorized [id number] 1 1 Encounter Details Date Type Department Care Team (Late st Contact Info) Description 03/08/2017 7:43 PM EST - 03/09/2017 3:33 PM EST Emergency [address] [place] [address] Bobby Ace MD [facility] [place] [address] William Stringer MD [facility] [place] [id number] Acute appendicitis, unspecified acute appendicitis type Discharge Disposition: Home Social History Tobacco Use [...] Sign Reading Time Taken Comments Blood Pressure 121/87 03/09/2017 12:31 PM EST Pulse 89 03/09/2017 12:31 PM EST Temperature 36.4 ??C (97.5 ??F) 03/09/2017 12:[address] Respiratory Rate 14 03/09/2017 12:31 PM EST Oxygen Saturation 96% 03/09/2017 12:31 PM EST Inhaled Oxygen Concentration - - Weight 79.5 kg (175 lb 3.2 oz) 03/09/2017 5:15 A M EST Height 177.8 cm (5' 10) 03/08/2017 7:22 PM EST Body Mass Index 25.14 03/08/2017 7:22 PM EST documented in this encounter Discharge Summaries * Xu Donaldson MD - 03/09/2017 2:00 PM EST General Surgery Inpatient - Discharge Summary Patient Name: Perfecto Polk Patient Age: 76 y.o. Birthdate: 1940 Admit date: 03/08/2017 Discharge date: 03/09/2017 Admitting Physician: William Stringer MD Primary Diagnosis: Acute appendicitis Secondary Diagnosis: Active Hospital Problems Diagnosis ??? Acute appendicitis Resolved Hospital Problems Diagnosis Date Resolved No resolved problems to display. Active Non-Hospital Problems Diagnosis ??? Primary osteoarthritis of left knee (DJD) ??? Osteomyelitis ??? Discitis of lumbar region ??? Lumbar degenerative disc disease HPI: (Per H&P on 03/08/17) Perfecto Polk is a 76 y.o. male, with a history of hypothyroidism who presents with abdominal pain which started periumbilically and radiated to the right lower quadrant today. He was seen by his PCP who ordered labs and a CT scan which showed acute appendicitis. He states that the last time he ate something was earlier this morning but denies having any nausea or vomiting. He denies having anychanges in his bowel movements. He is due to have a colonoscopy this year (gets them every 5 years for family history). He denies having any fevers, chills, sob, CP, or any other symptoms. Operations/Major Procedures: Operations: 03/09/2017 Surgeon(s) and Role: * Chelle Chen MD - Primary * Molina Mares MD * CHRIS Elias MD: Procedure(s): LAPAROSCOPIC APPENDECTOMY (WRVU 9.45) Operative Findings: - inflammed appendix, nonperforated, moderate adhesions?? Hospital Course: Perfecto Polk was taken to the operating room where the above procedures were performed. He tolerated the operation well and without complication. He was monitored post operatively. The patient's hospital course was uncomplicated and he was deemed stable for discharge on post-operative day 0. The patient was able to ambulate, voided, tolerate a diet, and pain was controlled on an oral regimen. Important Studies and Lab Data: See below. Pathology: None Microbiology: None Labs: No results found for: NA, K, CL, CO2, BUN, CREATININE, GLUCOSE CBC No results found for: WBC, HGB, HCT, PLATELET Pending Lab Data at Discharge: None Studies: CT abdomen and pelvis 03/08/17: 1. Fluid-filled and dilated appendix with. He appendiceal stranding in the right lower quadrant. No focal fluid collection. No free air and no obstruction. 2. Findings were called directly to Dr. Sandra Orozco and patient transferred to the emergency department. Post operative Exam: Last value Range last 12 hrs Temperature Temp: 36.4 ??C (97.5 ??F) Temp: [36.4 ??C (97.5 ??F)-36.9 ??C (98.4 ??F)] Heart Rate Heart Rate: 89 Heart Rate: [63-89] Blood Pressure BP: 121/87 BP: (113-144)/(66-87) Respiratory Rate Resp: 14 Resp: [9-16] SpO2 SpO2: 96 % SpO2: [94 %-100 %] I/Os: I/O last 3 completed shifts: In: 724 [P.O.:250; I.V.:474] Out: 1100 [Urine:1100] I/O this shift: In: 1400 [P.O.:600; I.V.:800] Out: 105 [Urine:100; Blood:5] Gen: NAD, alert & oriented x3 Pulm: CTAB, non labored respirations on RA Card: RRR, no m/r/g Abd: Non-distended, soft, appropriately tender. Wound: laparoscopic incisions clean, dry, no drainage, covered with bandaids Ext: no edema, 2+ peripheral pulses Discharge Plans: Discharge to: Home VNA: No Discharge Conditions/Prognosis: Stable Discharge Medications: The following medications have been prescribed for you. If you notice any adverse reactions to your medications, please contact your primary care physician immediately or go tothe nearest Emergency Department. Your Medications New Medications Dose Details acetaminophen 325 mg Tab Commonly known as: TYLENOL Take 2 tablets by mouth every 6 hours as needed for Pain. 650 mg Quantity: 30 tablet Refills: 0 oxyCODONE 5 mg Tab Commonly known as: ROXICODONE Take 1 tablet by mouth every 4 hours as needed for Pain. 5 mg Quantity: 15 tablet Refills: 0 Continued medications, unchanged Dose Details aspirin 81 mg Tbec Take 81 mg by mouth daily. 81 mg Refills: 0 cholecalciferol (Vitamin D3) 1,000 unit Cap Take 1,000 Units by mouth daily. 1000 Units Refills: 0 FISH OIL 1,000 mg Cap Take 2,000 mg by mouth daily. Generic drug: fish oil-omega-3 fatty acids with vitamin E 2000 mg Refills: 0 ketoconazole 2 % Crea Commonly known as: NIZORAL Apply topically daily. Refills: 0 LEVITRA 20 mg Tab Take 20 mg by mouth as needed. Generic drug: vardenafil 20 mg Refills: 6 levothyroxine 25 mcg Tab Commonly known as: SYNTHROID 25MCG = 1 Tablet(s), PO, Once daily Refills: 0 LIPITOR 10 mg Tab 10mg, PO, Once daily Generic drug: atorvastatin Refills: 0 ntbwvxcewhlnr-[id number] 200-10 mcg-mg Chew Commonly known as: SOURCE CF Take 1 tablet by mouth daily. 1 tablet Refills: 0 naproxen sodium 220 mg Cap Commonly known as: ALEVE Take by mouth. Refills: 0 * omeprazole 10 mg Cpdr Commonly known as: PriLOSEC Take 10 mg by mouth daily. 10 mg Refills: 0 * omeprazole 20 mg Cpdr Commonly known as: PriLOSEC Take 20 mg by mouth daily. 20 mg Refills: 4 * Notice: This list has 2 medication(s) that are the same as other medications prescribed for you. Read the directions carefully, and ask your doctor or other care provider to review them with you. Updated Allergies/ADRs: Allergies Allergen Reactions ??? Penicillins Hives Scheduled Appointments: Future Appointments Date Time Provider Department Center 03/28/2017 9:30 AM Kenya Sim, KERRI [facility] Outpatient Services/Studies: No discharge procedures on file. Instructions Given to Patient at Discharge:. An After Visit Summary was printed and given to the patient. There are no outpatient Patient Instructions on file for this admission. General Instructions [facility] Department of General Surgery Discharge Instructions CALL YOUR PHYSICIAN'S OFFICE IF: ??? You have a fever greater than 101 degrees Farenheit (38.3C) within one month of your surgery. ? ? You have diarrhea or vomiting for >24 hours, stop having bowel movements and/or passing flatus, have pain with urination. ??? You have worsening pain, not controlled with your pain medication. ??? You develop redness, swelling, or new drainage from your wound. Medications: [x] Pain Control [x] Non-narcotic pain medication - We recommend alternating with tylenol 650mg and ibuprofen 400-600mg every 6 hours (ie; tylenol at12pm, ibuprofen 3pm, tylenol 6pm, ibuprofen 9pm). - Do not take more than 4,000mg (4g) of tylenol in 24hours. [x] Narcotic pain medication - You have been prescribed 15 tablets of 5 mg of oxycodone. This is a narcotic medication that has several side effects/warnings: 1. Constipation: Narcotics can cause severe constipation. Please take BOTH a stool softener and pro-motility/laxative agent whenever taking narcotics, unless otherwise advised. These are over the counter. (Stool Softeners: Colace, Surfak. Laxatives/Stimulants: Miralax, Milk of Magnesia, Senna, Bisacodyl). 2. Altered mental status: Narcotics can make you sleepy and have delayed reactions. Therefore, do not drive or operate any heavy machinery while taking narcotics. 3. Addictive: Narcotics are addictive. Please take as prescribed and wean down/decrease your dose as soon as you can tolerate. 4. Restricted: Narcotics are highly regulated. If you are running out of your prescription and feelyou will need more, plan ahead and call your Physician as these cannot be filled electronically or at night/over the weekend. Again, as your pain decreases, reduce your use of these medications. You do not need to use all of the pills provided. [x] Other Medication(s) - The remainder of your medications are listed in the first section of the After Visit Summary. Driving Restrictions: - No driving if you are too sore from surgery to enter or exit your vehicle comfortably, or if you are too sore to easily check your blind spot. No driving while using narcotic pain medications. Shower: - It is ok to shower beginning on 03/11/17. You can shower per usual routine and let soapy water run over your incision. Pat incision dry with a clean, dry towel. Do not submerge the wound under water (no swimming or soaking) for at least 6 weeks, or until approved by your surgeon. Diet: [x] You have been cleared to resume your regular diet - We recommend eating a regular healthy diet (ie; fresh fruits, vegetables and fiber-containing foods will assist in wound healing,) Activity: - It is normal to feel tired after surgery/hospitalization. Be as active as tolerated as this will improve recovery and prevent blood clots. - You should avoid any heavy lifting for 4 weeks after surgery. A galloon of milk is a good estimate of the maximum you should be lifting while your wounds heal. -We recommend taking several slow, short walks each day for the first two weeks, and gradually increase your distance. We recommend at least 4 times a day. Wound/Incision Care: Closure: Your skin incisions are closed with: [x] Sutures - If your sutures are visible, they will need to be removed at a follow up appointment.If they are not visible, then they are underneath the skin and will dissolve. You may also have Steristrips covering your skin, which are strips of white tape that should fall off after ~10 days (if not, please remove manually). You may shower with them on. Infection: Observe for changes and alert the clinic if new/worsening redness or drainage. Things to avoid: Do not use creams, oils, or ointments on the wound. Keep wound open to air if it is not draining. Who to call? If you have concerns or questions: - During the day, it is best to call the [facility] to speak with the Surgery nurses. The number is [phone]. - During the night or weekends call the [facility] pasting machine operator at [phone] and ask to speak to the surgery resident consumer services advisor for general surgery. Please note: Your surgeon may not be Orchid Transplanter, especially during the night or on weekends, so be ready to describe yourself and your surgery when you call. Follow up appointments: Future Appointments Date Time Provider Department Center 03/28/2017 9:30 AM Kenya Sim, K[facility] [x] Follow-up appointment with General Surgery has already been scheduled [] A request for a follow-up appointment has been made and you should receive information via phone/mail in the next week. If you do not hear anything, please call the clinic at [phone] to confirm or reschedule. If you need a prior authorization, please call the General Surgery Clinic nurses [phone] for prior authorizations assistance Follow-up Recommendations for Providers: Medication changes-None Diet changes-None CC: Molina Herr MD Signed: Xu Donaldson MD General Surgery Team Pager #[phone] 03/09/2017 1:46 PM documented in this encounter Discharge Instructions * Discharge Instructions* Xu Donaldson MD - 03/09/2017 1:46 PM EST [facility] Department of General Surgery Discharge Instructions CALL YOUR PHYSICIAN'S OFFICE IF: ??? You have a fever greater than 101 degrees Farenheit (38.3C) within one month of your surgery. ? ? You have diarrhea or vomiting for >24 hours, stop having bowel movements and/or passing flatus, have pain with urination. ??? You have worsening pain, not controlled with your pain medication. ??? You develop redness, swelling, or new drainage from your wound. Medications: [x] Pain Control [x] Non-narcotic pain medication - We recommend alternating with tylenol 650mg and ibuprofen 400-600mg every 6 hours (ie; tylenol at12pm, ibuprofen 3pm, tylenol 6pm, ibuprofen 9pm). - Do not take more than 4,000mg (4g) of tylenol in 24hours. [x] Narcotic pain medication - You have been prescribed 15 tablets of 5 mg of oxycodone. This is a narcotic medication that has several side effects/warnings: 1. Constipation: Narcotics can cause severe constipation. Please take BOTH a stool softener and pro-motility/laxative agent whenever taking narcotics, unless otherwise advised. These are over the counter. (Stool Softeners: Colace, Surfak. Laxatives/Stimulants: Miralax, Milk of Magnesia, Senna, Bisacodyl). 2. Altered mental status: Narcotics can make you sleepy and have delayed reactions. Therefore, do not drive or operate any heavy machinery while taking narcotics. 3. Addictive: Narcotics are addictive. Please take as prescribed and wean down/decrease your dose as soon as you can tolerate. 4. Restricted: Narcotics are highly regulated. If you are running out of your prescription and feelyou will need more, plan ahead and call your Physician as these cannot be filled electronically or at night/over the weekend. Again, as your pain decreases, reduce your use of these medications. You do not need to use all of the pills provided. [x] Other Medication(s) - The remainder of your medications are listed in the first section of the After Visit Summary. Driving Restrictions: - No driving if you are too sore from surgery to enter or exit your vehicle comfortably, or if you are too sore to easily check your blind spot. No driving while using narcotic pain medications. Shower: - It is ok to shower beginning on 03/11/17. You can shower per usual routine and let soapy water run over your incision. Pat incision dry with a clean, dry towel. Do not submerge the wound under water (no swimming or soaking) for at least 6 weeks, or until approved by your surgeon. Diet: [x] You have been cleared to resume your regular diet - We recommend eating a regular healthy diet (ie; fresh fruits, vegetables and fiber-containing foods will assist in wound healing,) Activity: - It is normal to feel tired after surgery/hospitalization. Be as active as tolerated as this will improve recovery and prevent blood clots. - You should avoid any heavy lifting for 4 weeks after surgery. A galloon of milk is a good estimate of the maximum you should be lifting while your wounds heal. -We recommend taking several slow, short walks each day for the first two weeks, and gradually increase your distance. We recommend at least 4 times a day. Wound/Incision Care: Closure: Your skin incisions are closed with: [x] Sutures - If your sutures are visible, they will need to be removed at a follow up appointment.If they are not visible, then they are underneath the skin and will dissolve. You may also have Steristrips covering your skin, which are strips of white tape that should fall off after ~10 days (if not, please remove manually). You may shower with them on. Infection: Observe for changes and alert the clinic if new/worsening redness or drainage. Things to avoid: Do not use creams, oils, or ointments on the wound. Keep wound open to air if it is not draining. Who to call? If you have concerns or questions: - During the day, it is best to call the [facility] to speak with the Surgery nurses. The number is [phone]. - During the night or weekends call the [facility] pasting machine operator at [phone] and ask to speak to the surgery resident consumer services advisor for general surgery. Please note: Your surgeon may not be Orchid Transplanter, especially during the night or on weekends, so be ready to describe yourself and your surgery when you call. Follow up appointments: Future Appointments Date Time Provider Department Center 03/28/2017 9:30 AM Kenya Sim APRN [facility] [x] Follow-up appointment with General Surgery has already been scheduled [] A request for a follow-up appointment has been made and you should receive information via phone/mail in the next week. If you do not hear anything, please call the clinic at [phone] to confirm or reschedule. If you need a prior authorization, please call the General Surgery Clinic nurses [phone] for prior authorizations assistance documented in this encounter Medications at Time of Discharge Medication Sig Dispensed Refills Start Date End Date omeprazole (PRILOSEC) 20 mg Capsule, Delayed Release(E.C.) Take 20 mg by mouth daily. 4 03/08/2014 [id number]-BW-qiap (SOURCE CF) 200-10 mcg-mg Chew Take 1 tablet by mouth daily. 08/04/2010 levothyroxine (SYNTHROID) 25 mcg tablet 25MCG = 1 Tablet(s), PO, Once daily 09/27/2007 atorvastatin (LIPITOR) 10 mg tablet Take 20 mg by mouth. 09/27/2007 acetaminophen (TYLENOL) 325 mg Tablet Take 2 tablets by mouth every 6 hours as needed for Pain. 30 tablet 03/09/2017 07/05/2023 oxyCODONE (ROXICODONE) 5 mg Tablet Take 1 tablet by mouth every 4 hours as needed for Pain. 15 tablet 03/09/2017 03/28/2017 LEVITRA 20 mg Tablet Take 20 mg by mouth as needed. 6 01/21/2014 03/28/2017 naproxen sodium 220 mg Capsule Take by mouth. 03/28/2017 ketoconazole (NIZORAL) 2 % Cream Apply topically daily. 08/10/2013 03/28/2017 Cholecalciferol, Vitamin D3, 1,000 unit Capsule Take 1,000 Units by mouth daily. 07/28/2023 Preston-3 Fatty Acids-Vitamin E (FISH OIL) 1,000 mg Capsule Take 2,000 mg by mouth daily. 02/04/2021 omeprazole (PRILOSEC) 10 mg capsule Take 10 mg by mouth daily. 03/28/2017 aspirin 81 mg EC tablet Take 81 mg by mouth daily. 07/05/2023 documented as of this encounter Progress Notes * Rolly Edge RN - 03/09/2017 3:22 PM EST Patient Name: Perfecto Polk Patient Age: 76 y.o. Birthdate: 1940 Admit date: 03/08/2017 Attending Physician: William Stringer MD Patient cleared for discharge by 's. D/C teaching completed with pt and . No questions at this time. Pt sent home with all necessary supplies. Pt d/c'd home with at 1525, ambulated off unit after refusing wheelchair. * Rolly Edge RN - 03/09/2017 10:30 AM EST Pt arrived to room 211A after report received from Marilynn in the PACU. Reoriented to floor, call system, purposeful rounding, fall prevention program. VSS * Marilynn Harris RN - 03/09/2017 9:22 AM EST Pt arrived to PACU via bed from OR. Monitors attached and alarms set appropriately. VSS. Lungs CTA.HRR, NSR on tele. Pt alert, arousable to voice. Denies any pain or nausea at this time. Lap sitex x3, covered w/ bandaids, CDI. Per team bedside report, pt to be d/c home later today. documented in this encounter H&P Notes * William Stringer MD - 03/08/2017 8:09 PM EST DEPARTMENT OF GENERAL SURGERY ADMISSION NOTE ADMISSION REASON: acute appendicitis Secondary Problems: There are no hospital problems to display for this patient. Active Non-Hospital Problems Diagnosis ??? Primary osteoarthritis of left knee (DJD) ??? Osteomyelitis ??? Discitis of lumbar region ??? Lumbar degenerative disc disease HPI: Perfecto Polk is a 76 y.o. male, with a history of hypothyroidism who presents with abdominal pain which started periumbilically and radiated to the right lower quadrant today. He was seen by his PCP who ordered labs and a CT scan which showed acute appendicitis. He states that the last timehe ate something was earlier this morning but denies having any nausea or vomiting. He denies having any changes in his bowel movements. He is due to have a colonoscopy this year (gets them every 5 years for family history). He denies having any fevers, chills, sob, CP, or any other symptoms. PMH/PSH: Past Medical History: Diagnosis Date ??? Lumbar degenerative disc disease 08/21/2010 Hypothyroidism Past Surgical History: Procedure Laterality Date ??? PRO COLONOSCOPY, BIOPSY 01/10/2013 COLONOSCOPY FLEXIBLE, WITH BX performed by Dominick Earl MD at [facility] ENDOSCOPY testicular biopsy Knee arthroscopy MEDICATIONS: Current Facility-Administered Medications on File Prior to Encounter Medication Dose Route Frequency Provider Last Rate Last Dose ??? [COMPLETED] iohexol (OMNIPAQUE) 350 mg/mL solution 0-200 mL 0-200 mL Intravenous Once PRN Rommel Segura MD 96 mL at 03/08/17 1843 ??? [COMPLETED] iohexol (OMNIPAQUE) 350 mg/mL solution 50 mL 50 mL Oral Once PRN Willa Anna MD 50 mL at 03/08/17 1800 Current Outpatient Prescriptions on File Prior to Encounter Medication Sig Dispense Refill ??? LEVITRA 20 mg Tablet Take 20 mg by mouth as needed. 6 ??? omeprazole (PRILOSEC) 20 mg Capsule, Delayed Release(E.C.) Take 20 mg by mouth daily. 4 ??? naproxen sodium 220 mg Capsule Take by mouth. ??? ketoconazole (NIZORAL) 2 % Cream Apply topically daily. ??? Cholecalciferol, Vitamin D3, 1,000 unit Capsule Take 1,000 Units by mouth daily. ??? Preston-3 Fatty Acids-Vitamin E (FISH OIL) 1,000 mg Capsule Take 2,000 mg by mouth daily. ??? omeprazole (PRILOSEC) 10 mg capsule Take 10 mg by mouth daily. ??? wvkkvybgpubes-IY-pkpt (SOURCE CF) 200-10 mcg-mg Chew Take 1 tablet by mouth daily. ??? aspirin 81 mg EC tablet Take 81 mg by mouth daily. ??? levothyroxine (SYNTHROID) 25 mcg tablet 25MCG = 1 Tablet(s), PO, Once daily ??? atorvastatin (LIPITOR) 10 mg tablet 10mg, PO, Once daily ALLERGIES: Allergies Allergen Reactions ??? Penicillins Hives FAMILY HISTORY: Denies history of bleeding or clotting disorders. Denies history of reactions to anesthesia. Family History Problem Relation Age of Onset ??? Cancer Brother SOCIAL HISTORY: Tobacco: Denies EtOH: A few drinks a week Illicit Drugs: Denies Social History Social History ??? Marital status: Spouse name: N/A ??? Number of children: N/A ??? Years of education: N/A Occupational History ??? Not on file. Social History Main Topics ??? Smoking status: Never Smoker ??? Smokeless tobacco: Never Used ??? Alcohol use Yes Comment: occasional ??? Drug use: No ??? Sexual activity: Not on file Other Topics Concern ??? Not on file Social History Narrative REVIEW OF SYSTEMS: As stated above, otherwise negative Gen: No fever, no chills, no weight change. Ocular: No drainage, no blurred vision. HEENT: No sore throat, earache, or congestion. No neck pain. COR: No cough. No chest pain. No palpitations. Lungs: No shortness of breath or cough. GI: No nausea, no vomiting, no diarrhea, no constipation, no anorexia. : No dysuria, frequency, or urgency. No hematuria. No vaginal discharge or vaginal bleeding. Musculoskeletal: No joint pain or swelling or edema. Skin: No rash or itching. Psychiatric: No anxiety, no depression. Endocrine: No polyuria or polydipsia. PHYSICAL EXAM: Temp: [37 ??C (98.6 ??F)] Heart Rate: [73] Resp: [16] BP: (155)/(94) SpO2: [97 %] Heart Rate from SPO2: -- Gen: NAD, AAO x 3 HEENT: PERRL, MMM CVS: RRR, no m/r/g Pulm: CTAB GI: soft, nondistended, tender in right lower quadrant, focal tenderness but no rebound or guarding : voiding normally MSK: warm, no edema Vascular: 2+dp/pt bilaterally Neuro: moving all 4 extremities spontaneously, nonfocal Psych: normal affect, normal mood LABS: Recent Results (from the past 24 hour(s)) Comprehensive metabolic panel (non-fasting) Result Value Ref Range Glucose Lvl 93 65 - 199 mg/dL BUN 22 (H) 10 - 20 mg/dL Creatinine 1.05 0.80 - 1.50 mg/dL Sodium 140 135 - 145 mmol/L Potassium 3.9 3.5 - 5.0 mmol/L Chloride 100 98 - 107 mmol/L CO2 25 22 - 31 mmol/L Anion Gap 15 5 - 15 mmol/L Calcium 9.4 8.5 - 10.5 mg/dL Total Protein 7.6 6.1 - 8.0 gm/dL Albumin 4.0 3.2 - 5.2 gm/dL AST 15 0 - 39 unit/L ALT 9 0 - 55 unit/L Alk Phos 58 40 - 120 unit/L Total Bilirubin 0.6 0.2 - 1.3 mg/dL Estimated GFR >60 >=60 Hemogram Result Value Ref Range WBC 7.8 4.0 - 9.5 x10(3)/mcL RBC 4.92 4.58 - 5.54 x10(6)/mcL Hemoglobin 14.2 13.7 - 16.5 gm/dL Hematocrit 43.1 40.5 - 48.5 % MCV 87.6 82.9 - 93.1 fL MCH 28.9 27.5 - 32.1 pg MCHC 32.9 32.0 - 35.7 gm/dL Platelets 254 145 - 357 x10(3)/mcL RDWSD 42.5 36.0 - 45.0 fL RDWCV 13.3 11.4 - 13.8 % MPV 10.0 7.6 - 12.9 fL nRBC % Auto 0.0 % nRBC Abs Auto 0.000 0.000 - 0.000 x10(3)/mcL Differential, Automated Result Value Ref Range Neutrophils % 75.8 % Neutr Abs (ANC) 5.93 1.70 - 6.10 x10(3)/mcL Lymphocytes % 16.0 % Lymphocytes Abs 1.2 0.9 - 3.2 x10(3)/mcL Monocytes % 6.3 % Monocyte Abs 0.5 0.3 - 0.9 x10(3)/mcL Eosinophils % 1.2 % Eosinophils Abs 0.1 0.0 - 0.4 x10(3)/mcL Basophils % 0.3 % Basophils Abs 0.0 0.0 - 0.1 x10(3)/mcL Immature Gran % 0.40 % Kayley Gran Abs 0.03 0.00 - 0.04 x10(3)/mcL Amylase Result Value Ref Range Amylase 62 28 - 100 unit/L Lipase Result Value Ref Range Lipase 20 0 - 60 unit/L _Urinalysis with microscopic Result Value Ref Range Glucose UA Negative Negative mg/dL Protein UA Negative Negative mg/dL Bilirubin UA Negative Negative mg/dL Urobilinogen UA Normal Normal mg/dL pH UA 5.0 5.0 - 8.0 Blood UA Negative Negative mg/dL Ketones UA 5 (A) Negative mg/dL Nitrite UA Negative Negative Leukocytes UA Negative Negative mcL Appearance UA Hazy (A) Clear Spec Churdan UA 1.026 1.002 - 1.030 Color UA Yellow Yellow RBC UA 1 0 - 3 /HPF WBC UA 1 0 - 3 /HPF Gold Tube HOLD Result Value Ref Range Gold Hold Sample in lab. IMAGING: CT abd/pelvis: 1. Fluid-filled and dilated appendix with. He appendiceal stranding in the right lower quadrant. Nofocal fluid collection. No free air and no obstruction. 2. Findings were called directly to Dr. Sandra Orozco and patient transferred to the emergency department. ASSESSMENT: This is a 76 y.o. male, with a history of hypothyroidism who presents with abdominal pain which started periumbilically and radiated to the right lower quadrant today and CT scan concerning for acute appendicitis. PLAN: -Admit to Acute Care surgery as observation, floor status -Plan for OR tonight for laparoscopic appendectomy, consented, booked -IV abx, NPO, fluid resuscitation -Full code Phil Barreto MD PGY-2 03/08/2017 General Surgery p. [phone] Attending Addendum I have seen and examined the patient and reviewed the resident's history and I agree with the details as written. I have reviewed the laboratory data and viewed the pertinent imaging. The assessment and plan were formulated in discussion with me and I agree with them as documented. Patient is a 76 yo male who presented to the ED with a 1 day history of abdominal pain that began ludivina-umbilical and eventually localized into the RLQ. WBC was elevated and CT scan was consistent with acute non perforated appendicitis. The risks, benefits and alternatives were reviewed with the charlene ent and consent was obtained for laparoscopic appendectomy. Rose Stringer MD documented in this encounter ED Notes * Yaminimignonred Justino Torres, - 03/08/2017 8:30 PM EST CC: appendicitis HPI Perfecto Polk is a 76 y.o. male with PMHx of HLD and hypothyroidism who presents to the EmergencyDepartment with appendicitis. States he developed vague periumbilical abdominal pain around 6pm last night, and by this morning had developed sharp RLQ pain. The pain is constant and colicky. He wentto his PCP who ordered a CT A/P with contrast which showed evidence of appendicitis. Lab workup (CMP, CBC, lipase) unremarkable. He has some associated nausea. Denies fevers/chills, diarrhea, vomiting, blood in the stool, CP or SOB. States he last ate breakfast this morning. Denies alcohol or tobacco use. Review of Systems: Review of Systems Constitutional: Negative for chills, fatigue and fever. HENT: Negative for congestion and rhinorrhea. Eyes: Negative for photophobia and visual disturbance. Respiratory: Negative for cough, shortness of breath and wheezing. Cardiovascular: Negative for chest pain and leg swelling. Gastrointestinal: Positive for abdominal pain and nausea. Negative for blood in stool, constipation, diarrhea and vomiting. Endocrine: Negative for cold intolerance, heat intolerance, polydipsia and polyuria. Genitourinary: Negative for dysuria, frequency and hematuria. Musculoskeletal: Negative for arthralgias and myalgias. Skin: Negative for pallor and rash. Allergic/Immunologic: Negative for environmental allergies and food allergies. Neurological: Negative for dizziness, light-headedness and headaches. Hematological: Negative for adenopathy. Psychiatric/Behavioral: Negative for decreased concentration and sleep disturbance. Patient Vitals for the past 24 hrs: BP Temp Temp src Pulse Resp SpO2 Height Weight 03/08/17 1922 (!) 155/94 37 ??C (98.6 ??F) Oral 73 16 97 % 177.8 cm (5' 10) 83.9 kg (185 lb) Physical Exam: Physical Exam Constitutional: He is oriented to person, place, and time. He appears well- developed and well-nourished. No distress. HENT: Head: Normocephalic and atraumatic. Mouth/Throat: Oropharynx is clear and moist. Eyes: Conjunctivae and EOM are normal. Pupils are equal, round, and reactive to light. No scleral icterus. Neck: Normal range of motion. Neck supple. No JVD present. No thyromegaly present. Cardiovascular: Normal rate, regular rhythm, normal heart sounds and intact distal pulses. Exam reveals no gallop and no friction rub. Soft 2/6 systolic murmur at apex Pulmonary/Chest: Effort normal. No respiratory distress. He has no wheezes. He has no rales. Abdominal: Soft. Bowel sounds are normal. He exhibits no distension. There is no rebound and no guarding. RLQ tender to palpation Musculoskeletal: Normal range of motion. He exhibits no edema or deformity. Lymphadenopathy: He has no cervical adenopathy. Neurological: He is alert and oriented to person, place, and time. He has normal reflexes. No cranial nerve deficit. Skin: Skin is warm and dry. No rash noted. He is not diaphoretic. No erythema. Psychiatric: He has a normal mood and affect. His behavior is normal. Nursing note and vitals reviewed. ED Course: - Patient was evaluated and discussed with Dr. Ace - Medications, allergies and past medical history reviewed. -I have reviewed labs to be notable for: no leukocytosis or anemia, normal LFTs .edcourse Recent Results (from the past 24 hour(s)) Comprehensive metabolic panel (non-fasting) Result Value Ref Range Glucose Lvl 93 65 - 199 mg/dL BUN 22 (H) 10 - 20 mg/dL Creatinine 1.05 0.80 - 1.50 mg/dL Sodium 140 135 - 145 mmol/L Potassium 3.9 3.5 - 5.0 mmol/L Chloride 100 98 - 107 mmol/L CO2 25 22 - 31 mmol/L Anion Gap 15 5 - 15 mmol/L Calcium 9.4 8.5 - 10.5 mg/dL Total Protein 7.6 6.1 - 8.0 gm/dL Albumin 4.0 3.2 - 5.2 gm/dL AST 15 0 - 39 unit/L ALT 9 0 - 55 unit/L Alk Phos 58 40 - 120 unit/L Total Bilirubin 0.6 0.2 - 1.3 mg/dL Estimated GFR >60 >=60 Hemogram Result Value Ref Range WBC 7.8 4.0 - 9.5 x10(3)/mcL RBC 4.92 4.58 - 5.54 x10(6)/mcL Hemoglobin 14.2 13.7 - 16.5 gm/dL Hematocrit 43.1 40.5 - 48.5 % MCV 87.6 82.9 - 93.1 fL MCH 28.9 27.5 - 32.1 pg MCHC 32.9 32.0 - 35.7 gm/dL Platelets 254 145 - 357 x10(3)/mcL RDWSD 42.5 36.0 - 45.0 fL RDWCV 13.3 11.4 - 13.8 % MPV 10.0 7.6 - 12.9 fL nRBC % Auto 0.0 % nRBC Abs Auto 0.000 0.000 - 0.000 x10(3)/mcL Differential, Automated Result Value Ref Range Neutrophils % 75.8 % Neutr Abs (ANC) 5.93 1.70 - 6.10 x10(3)/mcL Lymphocytes % 16.0 % Lymphocytes Abs 1.2 0.9 - 3.2 x10(3)/mcL Monocytes % 6.3 % Monocyte Abs 0.5 0.3 - 0.9 x10(3)/mcL Eosinophils % 1.2 % Eosinophils Abs 0.1 0.0 - 0.4 x10(3)/mcL Basophils % 0.3 % Basophils Abs 0.0 0.0 - 0.1 x10(3)/mcL Immature Gran % 0.40 % Kayley Gran Abs 0.03 0.00 - 0.04 x10(3)/mcL Amylase Result Value Ref Range Amylase 62 28 - 100 unit/L Lipase Result Value Ref Range Lipase 20 0 - 60 unit/L _Urinalysis with microscopic Result Value Ref Range Glucose UA Negative Negative mg/dL Protein UA Negative Negative mg/dL Bilirubin UA Negative Negative mg/dL Urobilinogen UA Normal Normal mg/dL pH UA 5.0 5.0 - 8.0 Blood UA Negative Negative mg/dL Ketones UA 5 (A) Negative mg/dL Nitrite UA Negative Negative Leukocytes UA Negative Negative mcL Appearance UA Hazy (A) Clear Spec Churdan UA 1.026 1.002 - 1.030 Color UA Yellow Yellow RBC UA 1 0 - 3 /HPF WBC UA 1 0 - 3 /HPF Gold Tube HOLD Result Value Ref Range Gold Hold Sample in lab. -Imaging: Ct Abdomen & Pelvis W Contrast Result Date: 03/08/2017 1. Fluid-filled and dilated appendix with. He appendiceal stranding in the right lower quadrant. Nofocal fluid collection. No free air and no obstruction. 2. Findings were called directly to Dr. Sandra Orozco and patient transferred to the emergency department. 3. Dr. Alexander spoke directly to Dr. Todd Ace. Assessment and Plan: Assessment: 76 y.o. male with HLD and hypothyroidism, presents to ED after CT A/P done by PCP prompted by RLQ pain showed appendicitis. He is hemodynamically stable with no acute abdomen. Plan: - Admit to General Surgery - given 1L NS bolus while in ED Justino Ferreira DO Resident 03/09/17 0101 Associated attestation - Bobby Ace MD - 03/09/2017 5:00 PM EST I have personally seen and examined the patient. I reviewed the patient with Dr. Ferreira and agree with the arrington findings and plan. * Mignon Santos - 03/08/2017 8:16 PM EST Surgery team into consult with patient. Patient resting comfortably documented in this encounter Miscellaneous Notes * Op Note - Chelle Chen MD - 03/09/2017 9:03 AM EST [facility] [place] Operative Note Patient Name: Perfecto Polk : [id number] MR#: [id number] Case Date: 03/09/2017 Surgeon: Surgeon(s) and Role: * Chelle Chen MD - Primary * Molina Mares MD * CHRIS Elias MD Preoperative diagnosis: Acute Appendicitis Postoperative diagnosis: Acute Appendicitis Procedure(s) (LRB): LAPAROSCOPIC APPENDECTOMY (WRVU 9.45) (N/A) Findings: - inflammed appendix, nonperforated, moderate adhesions Anesthesia: General Estimated Blood Loss: 5 mL Specimens removed during surgery: Order Name Source Comment Collection Info Order Time SPECIMEN TO PATHOLOGY (SURGICAL OR DERM) Acute Appendicitis appendix 03/09/2017 8:37 AM Time removed from patient: 8:37 AM Drains: none Surgical Closure: Primary Closure - closure of ALL tissue levels during the original surgery regardless of wires, wickes, drains, or other devices extruding through the incision Disposition: awakened from anesthesia, extubated and taken to the recovery room in a stable condition, having suffered no apparent untoward event. Condition: doing well without problems (Please see the Surgical Encounter Summary for any Implant and Specimen details pertinent to this patient.) HPI/Surgical Indications: 76 yo M with RLQ abdominal pain and imaging consistent with acute appendicitis. Procedure Description: Patient was brought to the OR and placed on the operating table in a supine position. he was given general anesthesia and was intubated endotracheally without difficulty. his left arm was tucked and all pressure points were padded. he was prepped and draped in standard sterile fashion. A time out was performed, correctly identifying the patient, procedure, laterality and special equipment. All concerns were addressed prior to proceeding. 5 cc of 1% lidocaine was injected intradermally to provide an umbilical field block. An inferior ludivina-umbilical incision was made sharply. Blunt dissection was carried out to the level of the fascia,which was secured with a Wei clamp. A second clamp was used to secure the opposite side of the fascia. The fascia was divided sharply and the peritoneum was entered bluntly. Entry was confirmed with digital palpation. A 0-0 Vicryl stay stitch was placed on each side of the fascia and a 10 mm Wayne trocar was introduced into the abdomen. The abdomen was insufflated with CO2 to a pressure of 15mmHg, where adequate pneumoperitoneum was obtained. A 30 degree scope was introduced into the abdomen and confirmed that the port was placed intraperitoneally. No injury was noted at the entry site orthe underlying bowel. Attention was turned to the Left lower quadrant. 5 cc of local analgesic was injected intradermally and the needle was used as a finder needle for port placement. The epigastricvessels were avoided. A stab incision was made and a 5mm trocar was placed under direct visualization. Attention was turned to the suprapubic region. A second trocar was placed in the same fashion asdescribed above. The abdomen was surveyed, demonstrating normal liver and gallbladder. The patient was then placed in trendelenburg and airplaned the left. The cecum was identified and small bowel retracted superomedially to identify the terminal ileum. The appendix was located inferolateral to thececum and appeared grossly inflamed with adhesions to the surrounding fat but no evidence of perforation. The sigmoid colon was visualized and appeared normal. Blunt dissection was used to free the appendix and mesoappendix from the surrounding small bowel, which brought the appendix in full view. The base was located and using blunt dissection, a window was created between the mesoappendix and the base of the cecum. A 45 mm endostapler with a bowel load w as introduced into the abdomen through the 10 mm port and placed across the appendix. Care was taken to not incorporate the cecum or ileum. The appendix was divided. Next, a 45 mm vascular load was introduced into the abdomen and the mesoappendix was divided. A endocatch was introduced through the 10 mm port, and the specimen was placed in the bag and removed through the 10 mm port site. The specimen appeared thickened. This was sent to pathology for permanent sectioning. The trocar was replaced and pneumoperitoneum was re-established. Survey of the staple line at the appendiceal base demonstrated good hemostasis. Evaluation of the mesoappendix staple line demonstrated adequate hemostasis. The dissection bed was then irrigated with saline and all clot and irrigation was removed with suction. The patient was returned to a supine position. The 5 mm port sites were removed under direct visualization. Pneumoperitoneum was reversed and the 10 mm trocar was removed. The fascia was closed with a figure of eight stitch with 0-0 vicryl. Hemostasis was obtained and the skin was re-approximated with 4-0 vicryl. Incisions were dressed with steri-strips and band-aids. The patient was awakened from general anesthesia and extubated without difficulty. he was placed back onto the stretcher and transported to the recovery area in stable condition. At the end of the operation, all instruments, sharps and sponges were all accounted for. Dr. Chen was scrubbed and present throughout the entire operation. Attestation: Case Date: 03/09/2017 I was present and I participated during the entire procedure (does not need to include opening and closing). CHELLE CHEN MD 03/09/2017 * Brief Op Note - Molina Mares MD - 03/09/2017 9:02 AM EST Brief Operative Note Patient Name: Perfecto Polk : [id number] MR#: [id number] Case Date: 03/09/2017 Surgeon: Surgeon(s) and Role: * Chelle Chen MD - Primary * Molina Mares MD * CHRIS Elias MD Preoperative diagnosis: Acute Appendicitis Postoperative diagnosis: Acute Appendicitis Procedure(s) (LRB): LAPAROSCOPIC APPENDECTOMY (VU 9.45) (N/A) Anesthesia: General Findings: - inflammed appendix, nonperforated, moderate adhesions Complications: none Estimated Blood Loss: 5 mL Specimens removed during surgery: appendix Fluids: Intraprocedure Crystalloid Total None PRBCs: none (See Anesthesia Record/Report for Other Blood Products) Urine Output: (no blood products) Drains: none Disposition: awakened from anesthesia, extubated and taken to the recovery room in a stable condition, having suffered no apparent untoward event. Condition: doing well without problems (Please see the Surgical Encounter Summary for any Implant and Specimen details pertinent to this patient.) Infection Bundle used? N/A * Plan of Care - Debi Weeks RN - 03/09/2017 1:32 AM EST Problem: Patient Care Overview Goal: Plan of Care Review Outcome: Ongoing (Interventions Implemented as Appropriate) 03/09/17 0123 Coping/Psychosocial Plan Of Care Reviewed With patient Plan of Care Review Progress progress toward functional goals as expected OUTCOME EVALUATION NOTE: OUTCOME SUMMARY: Patient arrived to floor around 2200 for acute appendicitis. Alert and oriented. Pain rated 7/10 inright lower quadrant. Patient requested Tylenol and decided to hold off on scheduled Oxycodone. IV Cipro started. Adequate urine output. NPO since midnight for appendectomy scheduled this morning. Patient able to rest in between care. PLAN MOVING FORWARD: Monitor I&O's and lab results, encourage ambulation, manage pre/post op pain. INDIVIDUALIZED FALL PREVENTION INTERVENTIONS: High Risk Patient-specific fall risk factors per assessment: [current deficits]: Infusing IV, acute pain, newto floor. Assistance [level of assistance required for transfers and ambulation]: 1 person assist Supervision [direct monitoring required during toileting and ADLs]: Stand by assist Surveillance [continuous indirect monitoring]: NKE at bedside, purposeful rounding, assistive device, bed/chair alarm, environmental modifications (waste basket is out of the path and the IV tubing and cords are free from the floor), fall reduction program in place, lighting adjusted for task/safety, bed in low position, wheels locked, side rails up (x2), nonskid socks worn OOB, [place] ID band on, no restraints, and call light is within reach at all times. Patient-specific fall prevention interventions for sensory deficits provided, if applicable: Glasses at bedside. CPG GOAL OUTCOME EVALUATION: Goal: Individualization & Mutuality Outcome: Ongoing (Interventions Implemented as Appropriate) 03/09/17122 Individualization Patient Specific Preferences Tylenol for pain Patient Specific Goals Pain control Mutuality/Individual Preferences What Anxieties, Fears or Concerns Do You Have About Your Health or Care? None What Questions Do You Have About Your Health or Care? None What Information Would Help Us Give You More Personalized Care? I like to be called Maldonado. Goal: Fall Prevention-Safe Patient Handling Outcome: Ongoing (Interventions Implemented as Appropriate) 03/09/17122 Restraint Interventions Safety Promotion/Fall Prevention activity supervised;fall prevention program maintained;safety round/check completed Musculoskeletal Interventions Muscle Strengthening activity/mobility promoted Positioning Body Position supine, head elevated;independent Goal: Infection Control Outcome: Ongoing (Interventions Implemented as Appropriate) 03/09/17122 Safety Interventions Isolation Precautions standard precautions maintained Infection Prevention barrier precautions utilized Coping Strategies Supportive Measures active listening utilized Goal: Discharge Needs Assessment Outcome: Ongoing (Interventions Implemented as Appropriate) 03/09/17122 Discharge Needs Assessment Concerns To Be Addressed no discharge needs identified Readmission Within The Last 30 Days no previous admission in last 30 days Equipment Needed After Discharge none Discharge Disposition still a patient;home or self-care Current Health Anticipated Changes Related to Illness none Activity/Self Care Review of Systems Equipment Currently Used at Home none Living Environment Transportation Available family or friend will provide Goal: Interdisciplinary Rounds/Family Conf Outcome: Ongoing (Interventions Implemented as Appropriate) 03/09/17122 Interdisciplinary Rounds/Family Conf Participants nursing;family;patient Problem: Appendicitis/Appendectomy (Adult) Goal: Signs and Symptoms of Listed Potential Problems Will be Absent, Minimized or Managed (Appendicitis/Appendectomy) Signs and symptoms of listed potential problems will be absent, minimized or managed by discharge/transition of care (reference Appendicitis/Appendectomy (Adult) CPG). Outcome: Ongoing (Interventions Implemented as Appropriate) 03/09/17122 Appendicitis/Appendectomy Problems Assessed (Appendicitis/Appendectomy) all Problems Present (Appendicitis/Appendectomy) pain documented in this encounter Plan of Treatment Upcoming Encounters Date Type Department Care Team (Late st Contact Info) Description 10/27/2023 11:15 AM EDT Office Visit Palliative Medicine at [place] [phone] Elly Alston MD [facility] H[facility] AND [place] [address] 10/27/2023 1:00 PM EDT Office Visit Speech Therapy at [place] [phone] Debra Franco, FILM PROCESSING SHIFT SUPERVISOR 11/03/2023 2:00 PM EDT Office Visit Speech Therapy at [place] [phone] Debra Franco, FILM PROCESSING SHIFT SUPERVISOR 11/08/2023 2:30 PM EDT Appointment MRI at [place] [phone] Navjot Grider MD [facility] [address] HEMATOLOGY [place] [address] 11/09/2023 1:45 PM EDT Office Visit Hematology and Oncology at [place] [phone] Isabell Jacob MD [facility] [place] [address] 11/11/2023 10:30 AM EDT Office [place] [phone] Nicki Sharpe MD [facility] [place] [address] 11/15/2023 10:00 AM EDT Office [place] [address] Debra Franco, FILM PROCESSING SHIFT SUPERVISOR 11/16/2023 9:00 AM EDT Office Visit [place]ology [place] [address] Bisi Nam 11/22/2023 10:00 AM EDT [place] [address] Debra Franco, FILM PROCESSING SHIFT SUPERVISOR 11/30/2023 9:00 AM EDT Office Visit [place] [address] Bisi Nam 12/14/2023 9:00 AM EDT Office Visit [place] [address] Bisi Nam 12/28/2023 9:00 AM EDT Office Visit [place] [address] Bisi Nam documented as of this encounter Procedures Procedure Name Priority Date/Time Associated Diagnosis Comments SURGICAL PATHOLOGY REPORT Routine 03/09/2017 8:37 AM EST SPECIMEN TO PATHOLOGY Routine 03/09/2017 8:37 AM EST LAPAROSCOPIC APPENDECTOMY (WRVU 9.45) 03/09/2017 7:34 AM EST Acute Appendicitis PRODUCTION SUPERVISOR SCAN 03/09/2017 12:00 AM EST LAPAROSCOPIC APPENDECTOMY Routine 03/08/2017 8:31 PM EST documented in this encounter Results * Surgical Pathology Report (03/09/2017 8:37 AM EST) Final Diagnosis [id number] ? [facility]; A The signing pathologist has (i) examined the relevant preparation(s) for the specimen(s) and (ii) rendered or confirmed the diagnosis(es). . ?Surgical Pathology DIAGNOSIS Appendix: - ??Acute appendicitis and periappendicitis. - Appendical diverticulum. Electronically signed by: ??Ruben Goncalves MD Verified: ??03/14/2017 ?Pathologist Performed at: ??-[facility] Dept. of Pathology, [place], [place] CLINICAL INFORMATION Specimen Submitted: A - Appendix Clinical History: Acute appendicitis Clinical Diagnosis: Acute appendicitis SPECIMEN PROCESSING A - ??Labeled/Fixativ e: Appendix, fresh. Quantity/Size: Single, 5.5 x 0.7 x 0.7 cm. Tissue Description: Intact appendix and 3.5 x 1.5 x 1.5 cm mesoappendix. ??Surface: Congested, brown, focally hemorrhagic with minimal estrella to yellow-white purulent exudate, most pronounced at the tip. ??Wall: Average 0.2 cm with apparent rupture into the adjacent mesoappendix. ??Lumen: Dilated to 0.5 cm containing soft red-brown fecal matter. Sections/Processi ng: Final Cleaner sections from proximal to distal are submitted. (R4) ??shb 03/14/2017 9:01 PM EST [facility] APPENDIX STRUCTURE / Unknown 03/09/2017 8:37 AM EST 03/09/2017 8:37 AM EST Chelle Chen MD PATHOLOGY/CYTOLOGY ORDERABLES Performing Organization Address [facility]/ZIP [place] [address] * Specimen to Pathology (surgical or derm) (03/09/2017 8:37 AM EST) AP Specimen 03/09/2017 8:37 AM EST 03/09/2017 8:37 AM EST Narrative [facility] - 03/09/2017 8:37 AM EST Specimen requisition ordered. ??Separate Pathology report to follow William Stringer MD PATHOLOGY/CYTOLOGY O STANISLAW Performing Organization Address [facility] [place] [address] * SCAN DOC: PRODUCTION SUPERVISOR (03/09/2017 12:00 AM EST) Anatomical Region Laterality Modality Other Narrative 03/09/2017 12:00 AM EST Ordered by an unspecified provider. Scanning Provider MEDIA MGR SCAN EXT O RDR/RSLT documented in this encounter Visit Diagnoses Diagnosis Acute appendicitis- Primary Acute appendicitis without mention of peritonitis Acute appendicitis, unspecified acute appendicitis type documented in this encounter Admitting Diagnoses Diagnosis Acute appendicitis Acute appendicitis without mention of peritonitis documented in this encounter Administered Medications Inactive Administered Medications - up to 3 most recent administrations Medication Order MAR Action Action Date Dose Rate Site acetaminophen (TYLENOL) tablet 650 mg 650 mg, Oral, EVERY 6 HOURS, First dose on Tue03/09/17 at 0000, Until Discontinued, Do not exceed 4,000 mg in 24 hours, Routine Given 03/09/2017 11:32 AM EST 650 mg Given 03/09/2017 5:06 AM EST 650 mg Given 03/08/2017 11:14 PM EST 650 mg ciprofloxacin (CIPRO) 200mg in dextrose 5% 100mL 200 mg, Intravenous, ONCE, 1 dose, On Tue03/09/17 at 0000, Administer over 60 Minutes, Indication for (Active or Suspected): GI/Intra-abdominal, Restricted Antibiotic: Please indicate the most appropriate choice: Ordered from Emergency Department New Bag 03/09/2017 1:15 AM EST 200 mg 100 m L/hr enoxaparin (LOVENOX) injection 40 mg 40 mg, Subcutaneous, NIGHTLY, First dose on Tue03/09/17 at 0000, Until Discontinued, Routine Given 03/08/2017 11:20 PM EST 40 mg HYDROmorphone (DILAUDID) 2 mg/mL injection 1 dose, Starting on Tue03/09/17 at 0930, Until Tue03/09/17 at 0931, MARILYNN HARRIS: cabinet override HYDROmorphone (DILAUDID) injection 0.2-0.4 mg 0.2-0.4 mg, Intravenous, EVERY 5 MIN PRN, Starting on Tue03/09/17 at 0915, Until Tue03/09/17 at 1012, Pain, Give 0.2 mg every 5 minutes PRN for mild to moderate pain (1-5) Give 0.4 mg every 5 minutes PRN for moderate to severe pain (6-10). Hold for respiratory rate less than 10 per minute. Maximum dose 4 mg over one hour. If multiple pain medications are ordered, start with hydromorphone or morphine and use fentanyl for breakthrough pain., PACU Recovery, Routine Given 03/09/2017 9:45 AM EST 0.2 mg Given 03/09/2017 9:31 AM EST 0.2 mg levothyroxine (SYNTHROID) tablet 25 mcg 25 mcg, Oral, EVERY MORNING, First dose on Tue03/09/17 at 0600, Until Discontinued, Routine Given 03/09/2017 5:06 AM EST 25 mcg metroNIDAZOLE (FLAGYL) 500 mg in sodium chloride 0.9% 100 mL 500 mg, Intravenous, EVERY 8 HOURS, First dose on Tue03/09/17 at 0630, Until Discontinued, Administer over 30 Minutes, Indication for (Active or Suspected): Prophylaxis Given 03/09/2017 8:14 AM EST 500 mg New Bag 03/09/2017 6:13 AM EST 500 mg 200 mL/hr oxyCODONE (ROXICODONE) immediate release tablet 5 mg 5 mg, Oral, EVERY 4 HOURS, First dose on Tue03/09/17 at 0000, Until Discontinued, May repeat 5 mg in 60 minutes if pain not relieved., Routine Given 03/09/2017 10:11 AM EST 5 mg oxyCODONE (ROXICODONE) immediate release tablet 5 mg 5 mg, Oral, EVERY 4 HOURS PRN, Starting on Tue03/09/17 at 1130, Until Tue03/09/17 at 1734, Pain, May repeat 5 mg in 60 minutes if pain not relieved., Routine Given 03/09/2017 12:38 PM EST 5 mg sodium chloride 0.9 % flush 5 mL 5 mL, Intravenous, 2 TIMES DAILY, First dose on Tue03/08/17 at 2330, Until Discontinued, Recovery (Recovery-Hospital Unit), Routine Given 03/09/2017 9:00 AM EST 5 mLs Given 03/08/2017 11:14 PM EST 5 mLs sodium chloride 0.9% 1,000 mL IV bolus Intravenous, ONCE, 1 dose, On Tue03/08/17 at 2010 New Bag 03/08/2017 8:14 PM EST sodium chloride 0.9% infusion 1,000 mL, at 100 mL/hr, Intravenous, CONTINUOUS, Starting on Tue03/09/17 at 0000, Until Tue03/09/17 at 1110, Recovery (Recovery-Hospital Unit) New Bag 03/09/2017 1:18 AM EST 1,000 mLs 100 mL/hr New Bag 03/08/2017 11:15 PM EST 1,000 mLs 100 mL/hr documented in this encounter Active and Recently Administered Medications Times are shown in EST. Scheduled Medication Order 03/07/2017 03/08/2017 03/09/2017 acetaminophen (TYLENOL) tablet 650 mg 650 mg, Oral, EVERY 6 HOURS, First dose on Tue03/09/17 at 0000, Until Discontinued, Do not exceed 4,000 mg in 24 hours, Routine 2314 (Given - Provider: Debi Weeks RN) 0506 (Given - Provider: Debi Weeks RN)0704 (MAR Hold - Provider: Admin Adt - Reason: Transfer to a Procedural area)1022 (MAR Unhold - Provider: Rolly Edge, OSCAR)1132 (Given - Provider: Rolly Edge, OSCAR) atorvastatin (LIPITOR) tablet 10 mg 10 mg, Oral, EVERY EVENING, First dose on Tue03/09/17 at 1700, Until Discontinued, Routine 0704 (MAR Hold - Provider: Admin Adt - Reason: Transfer to a Procedural area)1022 (MAR Unhold - Provider: Rolly Edge, OSCAR) ciprofloxacin (CIPRO) 200mg in dextrose 5% 100mL (COMPLETED) 200 mg, Intravenous, ONCE, 1 dose, On Tue03/09/17 at 0000, Administer over 60 Minutes, Indication for (Active or Suspected): GI/Intra-abdominal, Restricted Antibiotic: Please indicate the most appropriate choice: Ordered from Emergency Department 0115 (New Bag - Provider: Debi Weeks RN)0215 (Stopped - Provider: Debi Weeks RN) ciprofloxacin (CIPRO) 200mg in dextrose 5% 100mL (CANCELED) 200 mg, Intravenous, EVERY 12 HOURS, First dose (after last reorder) on Tue03/09/17 at 1200, Until Discontinued, Administer over 60 Minutes, Indication for (Active or Suspected): GI/Intra-abdominal, Restricted Antibiotic: Please indicate the most appropriate choice: Ordered from Emergency Department 0704 (MAY Hold - Provider: Admin Adt - Reason: Transfer to a Procedural area)0759 (Given - Provider: Ernie Rock CRNA)1022 ([facility] Unhold - Provider: Admin Adt) enoxaparin (LOVENOX) injection 40 mg (CANCELED) 40 mg, Subcutaneous, NIGHTLY, First dose on Tue03/09/17 at 0000, Until Discontinued, Routine 2320 (Given - Provider: Debi Weeks RN) 0704 ([facility] Hold - Provider: Admin Adt - Reason: Transfer to a Procedural area)1022 ([facility] Unhold - Provider: Admin Adt) levothyroxine (SYNTHROID) tablet 25 mcg 25 mcg, Oral, EVERY MORNING, First dose on Tue03/09/17 at 0600, Until Discontinued, Routine 0506 (Given - Provid er: Debi Weeks RN)0704 ([facility] Hold - Provider: Admin Adt - Reason: Transfer to a Procedural area)1022 ([facility] Unhold - Provider: Rolly Edge, OSCAR) metroNIDAZOLE (FLAGYL) 500 mg in sodium chloride 0.9% 100 mL (CANCELED) 500 mg, Intravenous, EVERY 8 HOURS, First dose on Tue03/09/17 at 0630, Until Discontinued, Administer over 30 Minutes, Indication for (Active or Suspected): Prophylaxis 0613 (New Bag - Provider: Debi Weeks RN)0643 (Stopped - Provider: Rolly Edge, OSCAR)0704 ([facility] Hold - Provider: Admin Adt - Reason: Transfer to a Procedural area)0814 (Given - Provider: Ernie Rock CRNA)1022 ([facility] Unhold - Provider: Admin Adt) oxyCODONE (ROXICODONE) immediate release tablet 5 mg (CANCELED) 5 mg, Oral, EVERY 4 HOURS, First dose on Tue03/09/17 at 0000, Until Discontinued, May repeat 5 mg in 60 minutes if pain not relieved., Routine 0000 (Not Given - Provider: Debi Weeks RN - Reason: Patient/family refused)0400 (Not Given - Provider: Debi Weeks RN - Reason: Patient/family refused)0704 (MAY Hold - Provider: Admin Adt - Reason: Transfer to a Procedural area)0800 (Automatically Held - Provider: Admin Adt)0925 ([facility] Unhold - Provider: Marilynn Harris, OSCAR)1011 (Given - Provider: Marilynn Harris, OSCAR) pantoprazole (PROTONIX) injection 40 mg 40 mg, Intravenous, DAILY, First dose on Tue03/09/17 at 0900, Until Discontinued 0704 (MAR Hold - Provider: Admin Adt - Reason: Transfer to a Procedural area)0900 (Automatically Held - Provider: Admin Adt)1022 ([facility] Unhold - Provider: Rolly Edge RN) sodium chloride 0.9 % flush 5 mL 5 mL, Intravenous, 2 TIMES DAILY, First dose on Tue03/08/17 at 2330, Until Discontinued, Recovery (Recovery-Hospital Unit), Routine 2314 (Given - Provider: Debi Weeks RN) 0900 (Given - Provider: Marilynn Harris, OSCAR) sodium chloride 0.9% 1,000 mL IV bolus (COMPLETED) Intravenous, ONCE, 1 dose, On Tue03/08/17 at 2010 2013 (New Bag - Provider: Mignon Santos) Continuous Medication Order 03/07/2017 03/08/2017 03/09/2017 sodium chloride 0.9% infusion (CANCELED) 1,000 mL, at 100 mL/hr, Intravenous, CONTINUOUS, Starting on Tue03/09/17 at 0000, Until Tue03/09/17 at 1110, Recovery (Recovery-Hospital Unit) 2315 (New Bag - Provider: Debi Weeks RN) 0118 (New Bag - Provider: Debi Weeks RN)1110 (Stopped - Provider: Rolly Edge, RN) PRN Medication Order 03/07/2017 03/08/2017 03/09/2017 BUpivacaine (PF) (MARCAINE) 0.25 % (2.5 mg/mL) injection (CANCELED) ONCE PRN, Starting on Tue03/09/17 at 0858, Until Tue03/09/17 at 1734, Intra-Operative (Intra-Procedure), Routine 0858 (Given - Provid er: Chelle Chen MD) HYDROmorphone (DILAUDID) injection 0.2-0.4 mg (CANCELED) 0.2-0.4 mg, Intravenous, EVERY 5 MIN PRN, Starting on Tue03/09/17 at 0915, Until Tue03/09/17 at 1012, Pain, Give 0.2 mg every 5 minutes PRN for mild to moderate pain (1-5) Give 0.4 mg every 5 minutes PRN for moderate to severe pain (6-10). Hold for respiratory rate less than 10 per minute. Maximum dose 4 mg over one hour. If multiple pain medications are ordered, start with hydromorphone or morphine and use fentanyl for breakthrough pain., PACU Recovery, Routine 0931 (Given - Provid er: Marilynn Harris RN)0945 (Given - Provider: Marilynn Harris, OSCAR) lidocaine (XYLOCAINE) 10 mg/mL (1 %) injection 3 mg 3 mg (0.3 mL), Subcutaneous, ONCE PRN, 1 dose, Starting on Tue03/08/17 at 2304, Until Tue03/09/17 at 1734, for discomfort with PIV insertion, Recovery (Recovery-Hospital Unit), Routine oxyCODONE (ROXICODONE) immediate release tablet 5 mg 5 mg, Oral, EVERY 4 HOURS PRN, Starting on Tue03/09/17 at 1130, Until Tue03/09/17 at 1734, Pain, May repeat 5 mg in 60 minutes if pain not relieved., Routine 1238 (Given - Provid er: Rolly Edge, OSCAR) sodium chloride 0.9 % flush 5-20 mL 5-20 mL, Intravenous, EVERY 1 MIN PRN, Starting on Tue03/08/17 at 2304, Until 03/09/17 at 1734, flush, Flush pertains to all indwelling lines. Flush per protocol found in the job aid using the link provided on this medication record., Recovery (Recovery-Hospital Unit), Routine documented in this encounter Care Teams Flat Bed Operator Relationship Specialty Start Date End Date Molina Herr MD [address] [place] [address] PCP - General 01/27/10 documented as of this encounter
--- OUTSIDE RECORDS SUMMARY | 2023-10-17 15:13 | XMS_ITS | Encounter Summary ---
[place] [address] Care Team Providers Care Stunt Double Name Role Phone Molina Herr MD Primary Care Provider [phone] Encounter Details Date Type Department Care Team (Latest Contact Info) Description 12/30/2016 4:00 PM EDT Clinical Support Audiology at [address] [address] Clarice Madrigal, NEELIMA [facility] [place] [address] Bilateral sensorineural hearing loss Social History Tobacco Use [...] encounter Progress Notes * Clarice Madrigal - 12/30/2016 4:00 PM EDT AUDIOLOGY SECTION AMPLIFICATION REPAIR NOTE REPAIR WORK HEARING AID (right, left or both) Left SERIAL NUMBER CHANGED? Yes WARRANTY CHANGED? Yes (loss claim used) REPAIR WORK PERFORMED? (repair company/invoice number) Replaced under loss and damage ([employer] / [id number] / 12.16.2016) CHARGE TO PATIENT? Yes S-REM VERIFICATION PERFORMED? Yes RE-PROGRAMMED? (KENA session date) Yes PROGRAMS AND V/C STATUS CHANGED? Yes (VC enabled) PHYSICAL AND ACOUSTIC INSPECTION PERFORMED? 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 LOANER OUT? OTHER HEARING AID(S): HEARING AID RIGHT LEFT Make/Model/Style [employer] Opn 3 miniRITE [employer] Opn 3 miniRITE Casing Color 92 (ann) 92 (nan) Serial Number [id number] (new-replacement) [id number] (old) Battery Size 312 312 Invoice number / date [id number] 10/27/16 [id number] 10/27/16 PROGRAM/SETTINGS ? Fitting Algorithm DSL 5a [...] AM EDT Office [place] [address] Elly Alston MD [facility] DR HOSPICE AND [place] [address] 10/27/2023 1:00 PM EDT Office Visit Speech Therapy at [place] [phone] Debra Franco, ROLANDO 11/03/2023 2:00 PM EDT Office Visit Speech Therapy at [place] [phone] Debra Franco, ROLANDO 11/08/2023 2:30 PM EDT Appointment MRI at [place] [phone] Navjot Grider MD [facility] [address] [place] [address] 11/09/2023 1:45 PM EDT Office Visit Hematology and Oncology at [address] Isabell Jacob MD [facility] [place] [address] 11/11/2023 10:30 AM EDT Office Visit Radiation Oncology at [address] Nicki Sharpe MD [facility] [place] [address] 11/15/2023 10:00 AM EDT Office [place] [phone] Debra Franco, ROLANDO 11/16/2023 9:00 AM EDT Office Visit Hematology and Oncology at [place] [phone] Bisi Nam 11/22/2023 10:00 AM EDT Office [place] [phone] Debra Franco, ROLANDO 11/30/2023 9:00 AM EDT Office Visit Hematology [place] [address] Bisi Nam 12/14/2023 9:00 AM EDT Office Visit Hematology [place] [address] Bisi Nam 12/28/2023 9:00 AM EDT Office Visit Hematology [place] [address] Bisi Nam documented as of this encounter Visit Diagnoses Diagnosis Bilateral sensorineural hearing loss Sensorineural hearing loss, bilateral documented in this encounter Care Teams Stunt Double Relationship Specialty Start Date End Date Molina Herr MD [address] [place] [address] PCP - General 01/27/10 documented as of this encounter
--- OUTSIDE RECORDS SUMMARY | 2023-10-17 15:13 | XMS_ITS | Encounter Summary ---
Author Organization [facility] [place] [address] Care Team Providers Care Health Club Manager Name Role Phone Molina Herr MD Primary Care Provider [phone] Reason for Visit * Reason Comments Left Knee Pain Encounter Details Date Type Department Care Team (Latest Contact Info) Description 12/14/2013 10:00 AM EDT Office [place] [address] Debi Ramos PA [facility] DR [place] [address] Osteoarthritis of knee (Primary Dx) Discharge Disposition: Home Social History Tobacco Use [...] Sign Reading Time Taken Comments Blood Pressure 141/75 12/14/2013 10:25 AM EDT Pulse 67 12/14/2013 10:25 AM EDT Temperature - - Respiratory Rate - - Oxygen Saturation - - Inhaled Oxygen Concentration - - Weight 83.9 kg (185 lb) 12/14/2013 10:25 AM EDT stated Height 177.8 cm (5' 10) 12/14/2013 10:25 AM EDT statd Body Mass Index 26.54 12/14/2013 10:25 AM EDT documented in this encounter Patient Instructions * Patient Instructions* Debi Ramos PA - 12/14/2013 11:05 AM EDT Start Aleve 2 tabs in AM and PM for 6 weeks. Continue to work on regular exercise and leg strength. Avoid impact activity and if any activity increases pain- limit activity Use off loading brace during activity. documented in this encounter Progress Notes * Debi Ramos PA - 12/14/2013 11:52 AM EDT CHIEF COMPLAINT: Left knee pain. HISTORY OF PRESENT ILLNESS: Mr. Polk is a very pleasant 73-year-old male who is a new patient to orthopedic clinic. He states he has been having ongoing issues with his left knee for a number of years that are acutely worse at times. His most acute exacerbation was in September of this year without any injury or incident. He noted he had significant medial discomfort and was seen by his primary care provider. At that time, it was felt that he was having pes anserine bursitis along with some degenerative joint disease and was treated with a course of physical therapy along with what sounds like local injection about the pes anserine bursa and medial superficial aspect of the left knee. The patient states that that did help his symptoms for approximately 48 hours, but returned. Overall, he states his symptoms are not nearly as bad as when they started in September, but he continues to have discomfort about the knee. Most discomfort is located medially and is related to activity such as going down stairs or with sudden movement. He by far in a way states that night pain is the most bothersome. He does explain the knee is swollen, but not nearly as bad as it had been in September. He is having some occasional instability, but no clear incident of an issue that resulted in a fall. The patient denies any locking or catching, but does have a clicking sensation. In regards to treatment for the knee as stated previously, he has done a course of physical therapy along with some superficial injections which have had some benefit, but nothing longstanding. He uses Aleve daily for many years for a number of joint symptoms. He did wear a sleeve on the knee, but found it very uncomfortable to walk when he was wearing this. Denies any history of intraarticular injection or surgery about the knee. Past medical and past surgical history are reviewed in [facility]. He denies any significant medical history or surgical history with the exception of arthroscopy about the right knee. REVIEW OF SYSTEMS: He denies fever or chills. He has some intermittent numbness or tingling in his feet. Denies any chest pain or shortness of breath. EXAM: He is alert and oriented x3. He has a mildly antalgic gait. The left knee has an effusion. He has pain with some patellar compression. He has pain with joint line palpation primarily in the medial aspect in addition to pain with palpation of the quadriceps tendon. He is able to straight leg raise. Range of motion of the left knee shows that he is missing approximately 5 degrees of full extension and can flex the knee to approximately 115 degrees. He is stable to varus and valgus stress. He is also stable to anterior or posterior drawer. He has 2+ pedal pulses. Sensation distally is intact. DIAGNOSTIC DATA: X-rays were reviewed in clinic today. They do show evidence of degenerative joint disease as evidence by joint space narrowing, sclerosis, and osteophyte production. He additionally presents with an MRI that shows evidence of cartilage loss along tibial plateau insufficiency fracture. Left knee pain. DJD, left knee. Small insufficiency fracture, tibial plateau medial. At this time, we discussed treatment of his left knee pain. Treatment focus should be around the arthritis in the left knee. We did discuss the option of using crutches for a period of time to minimize weightbearing to protect the knee. At this time, his symptoms have been ongoing since September and have slowly improved over time. He did not feel that crutches would be ideal. We are just going to discuss the options of injection of the knee, but ultimately decided on an offloading brace of the medial compartment. I did encourage the patient that he may continue what ever activity that he felt comfortable, but to avoid heavy impact or impact sports such as running or any heavy weightlifting. I did state that if he was having more discomfort in the knee that he should stop those activities. He already does have a followup visit scheduled to see Dr. Fuchs in approximately two weeks, he would like to keep that visit. I did discuss the possibility of future knee replacement, and the patient is not interested at this time. documented in this encounter Plan of Treatment Upcoming Encounters Date Type Department Care Team (Late st Contact Info) Description 10/27/2023 11:15 AM EDT Office Visit Palliative Medicine at [place] [phone] Elly Alston MD [facility] HOSPICE AND [place] [address] 10/27/2023 1:00 PM EDT Office Visit Speech Therapy at [place] [address] Debra Franco, SURVEYOR [employer]IL WELL DIRECTIONAL 11/03/2023 2:00 PM EDT Office Visit Speech Therapy at [place] [phone] Debra Franco, SURVEYOR [employer] WELL DIRECTIONAL 11/08/2023 2:30 PM EDT Appointment MRI at [address] Navjot Grider MD [facility] DR HEMATOLOGY [place] [address] 11/09/2023 1:45 PM EDT Office Visit Hematology and Oncology at [place] [address] Isabell Jacob MD [facility] [place] [address] 11/11/2023 10:30 AM EDT Office Visit Radiation Oncology at [address] Nicki Sharpe MD [facility] [place] [address] 11/15/2023 10:00 AM EDT Office [place] [address] Debra Franco, SURVEYOR [employer] DIRECTIONAL 11/16/2023 9:00 AM EDT Office Visit Hematology [place] [address] Bisi Nam 11/22/2023 10:00 AM EDT Office [place] [phone] Debra Franco, SURVEYOR [employer]CTIONAL 11/30/2023 9:00 AM EDT Office Visit Hematology [place] [phone] Bisi Nam 12/14/2023 9:00 AM EDT Office Visit Hematology [place] [address] Bisi Nam 12/28/2023 9:00 AM EDT Office Visit [place]ology [place] [address] Bisi Nam documented as of this encounter Visit Diagnoses Diagnosis Osteoarthritis of knee- Primary Osteoarthrosis, unspecified whether generalized or localized, lower leg documented in this encounter Care Teams Health Club Manager Relationship Specialty Start Date End Date Molina Herr MD [address] [place] [address] PCP - General 01/27/10 documented as of this encounter
--- OUTSIDE RECORDS SUMMARY | 2023-10-17 15:13 | XMS_ITS | Encounter Summary ---
[place] [address] Care Team Providers Care Curtain Cleaner Name Role Phone Molina Herr MD Primary Care Provider [phone] Encounter Details Date Type Department Care Team (Latest Contact Info) Description 01/05/2017 4:00 PM EDT Office Visit Audiology at [address] [address] Laisha Granados AUD [facility] [place] [address] Bilateral sensorineural hearing loss Social History Tobacco [...] as of this encounter Progress Notes * Laisha Granados AUD - 01/05/2017 4:00 PM EDT AUDIOLOGY SECTION Perfecto Holly Jam, 76 y.o., was seen for hearing aid check. History: ? ? Recently lost the left aid and had it replace under L&D ??? Now aids will not pair to his iphone. He can only pair one or the other. Actions taken: ??? Connected aids to each other in the software. ??? Restarted the phone ??? Repaired the aids to the phone. ??? Played test music and phone call Plan: Return PRN HEARING AID(S): HEARING AID RIGHT LEFT Make/Model/Style Oticon Opn 3 miniRITE Oticon Opn 3 miniRITE Casing Color 92 (ann) 92 (ann) Serial Number [id number] (new-replacement) [id number] (old) Battery Size 312 312 Invoice number / date [id number] 10/27/16 [id number] 10/27/16 PROGRAM/SETTINGS ? Fitting Algorithm DSL 5a [...] AM EDT Office Visit [place] [address] Elly Alston MD [facility] DR HOSPICE AND [place] [address] 10/27/2023 1:00 PM EDT Office [place] [address] Debra Franco, CUSHION PADDER 11/03/2023 2:00 PM EDT Office Visit Speech Therapy at [address] Debra Franco, CUSHION PADDER 11/08/2023 2:30 PM EDT Appointment MRI at [place] [address] Navjot Grider MD [facility] [address] [place] [address] 11/09/2023 1:45 PM EDT Office Visit Hematology [place] [address] Isabell Jacob MD [facility] [place] [address] 11/11/2023 10:30 AM EDT Office Visit Radiation Oncology at [place] [phone] Nicki Sharpe MD [facility] [place] [address] 11/15/2023 10:00 AM EDT Office Visit Speech Therapy at [place] [phone] Debra Franco, ROLANDO 11/16/2023 9:00 AM EDT Office Visit Hematology [place] [address] Bisi Nam 11/22/2023 10:00 AM EDT Office [place] [address] Debra Franco, ROLANDO 11/30/2023 9:00 AM EDT Office Visit Hematology [place] [address] Bisi Nam 12/14/2023 9:00 AM EDT Office Visit Hematology [place] [address] Bisi Nam 12/28/2023 9:00 AM EDT Office Visit Hematology [place] [address] Bisi Nam documented as of this encounter Visit Diagnoses Diagnosis Bilateral sensorineural hearing loss Sensorineural hearing loss, bilateral documented in this encounter Care Teams Curtain Cleaner Relationship Specialty Start Date End Date Molina Herr MD [address] [place] [address] PCP - General 01/27/10 documented as of this encounter
--- OUTSIDE RECORDS SUMMARY | 2023-10-17 15:13 | XMS_ITS | Encounter Summary ---
[place] [address] Care Team Providers Care Double Backer Name Role Phone Molina Herr MD Primary Care Provider [phone] Reason for Visit * Reason Comments Left Knee Pain Encounter Details Date Type Department Care Team (Late st Contact Info) Description 03/13/2014 9:30 AM EST Office Visit [place] [phone] Connor Malik PA [address] [place] [address] Primary osteoarthritis of left knee (DJD) Discharge Disposition: Home Social History Tobacco Use [...] Sign Reading Time Taken Comments Blood Pressure 139/84 03/13/2014 10:02 AM EST Pulse 84 03/13/2014 10:02 AM EST Temperature - - Respiratory Rate - - Oxygen Saturation - - Inhaled Oxygen Concentration - - Weight 84.1 kg (185 lb 4.8 oz) 03/13/2014 10:02 AM EST Height 177.8 cm (5' 10) 03/13/2014 10:02 AM EST verbal Body Mass Index 26.59 03/13/2014 10:02 AM EST documented in this encounter Progress Notes * Connor Malik PA - 03/13/2014 10:09 AM EST PATIENT NAME: Perfecto Polk AGE: 73 y.o. MR#: [id number] DATE OF VISIT: 03/13/2014 STAFF: Today's covering physician is Dr. Campos. CHIEF COMPLAINT: left knee pain HISTORY OF PRESENT ILLNESS Mr. Polk a 73 y.o. year old male comes into clinic today for Follow-up left knee pain. He reports htat he has no pain when wearing the barrel header knee brace. He reports thatthe pain will wake up every night with knee pain. He will get up and walk around and he has no pain. He has gone some days without the knee brace and he did not notice any changes in his night time pain. He has been going for walks up to 5 miles and has been without pain. Reports reviewed: office notes. Patient's medications, allergies, past medical, surgical, social and family histories were reviewedand updated as appropriate. Medications: updated in ED-H ROS: negative for fever, chills, chest pain, shortness of breath, nausea or vomiting. Physical Exam Blood pressure 139/84, pulse 84, height 177.8 cm (5' 10), weight 84.052 kg (185 lb 4.8 oz). Constitutional: oriented to person, place, and time and well-developed, well- nourished, and in no distress. Skin: Skin is warm and dry. Comments: Comes in without antalgia. Mild effusion. He is nontender over the joint lines. I have made the following determinations: Knee Exam: Right Prior surgery on this joint: No Gait Abnormality: Normal Knee ROM: Extension:5 Flexion: 120 Alignment: 0-4 degrees Neutral Stability: [...] Normal Distal Sensory: Normal Quadriceps Strength: 5 RADIOLOGICAL STUDIES: I reviewed images of the left knee, which included, Standing alignment, AP, Lateral, Schuss, Standard images, which showed advanced DJD of the medial and patellofemoral compartments. I reviewed MRI images of the left knee, which showed Impression 1. Extensive osteoarthropathy with chondral defects in all 3 compartments of the knee. 2. Complex tear of medial meniscus and radial tear of lateral meniscus. 3. Small insufficiency fracture of the medial tibial plateau surrounded by bone bruise may contribute to pain 4. Pes anserine bursitis and knee effusion ASSESSMENT/PLAN: The patient was seen and the plan was formulated in conjunction with Dr. Fuchs. Perfecto Polk is a 73 y.o. male presents to the clinic with aeft knee pain secondary to DJD and acomplex tear of the menisci. We reviewed the ladder of therapy for knee pain. We discussed continuing with closed chain activitis and avoiding high impact activities. He should continue a structured strengthening program of his core, abductor and quadricep muscles. We discussed continued use of theunloader knee brace to unload the medial compartment, support and functional mobility. Again we reviewed that if the his symptoms were to worsen or persist he consider undergoing an intra-articular cortiscosteroid injections and/or injection with Visco supplementation. Lastly we discussed that if his pain were to start to worsen despite conservative measures he would be a candidate forknee replacement surgery, and it indications, risks and benefits. This plan was discussed with the patient and they are in agreement. All of the patient's questions were answered. Discussed with patient indications for prompt return or to call the clinic if they have any questions, otherwise they will follow-up as needed and with their PCP as scheduled. documented in this encounter Plan of Treatment Upcoming Encounters Date Type Department Care Team (Late st Contact Info) Description 10/27/2023 11:15 AM EDT Office Visit Palliative Medicine at [place] [address] Elly Alston MD [facility] [address] HOSPICE [place] [address] 10/27/2023 1:00 PM EDT Office Visit Speech Therapy at [place] [address] Debra Franco, PARACHUTIST/COMBATANT DIVER QUALIFIED 11/03/2023 2:00 PM EDT Office Visit Speech Therapy at [place] [address] Debra Franco, PARACHUTIST/COMBATANT DIVER QUALIFIED 11/08/2023 2:30 PM EDT Appointment MRI at [place] [address] Navjot Grider MD [facility] [address] [place] [address] 11/09/2023 1:45 PM EDT Office Visit Hematology and Oncology at [place] [address] Isabell Jacob MD [facility] [place] [address] 11/11/2023 10:30 AM EDT Office Visit Radiation Oncology at [place] [address] Nicki Sharpe MD [facility] [place] [address] 11/15/2023 10:00 AM EDT Office Visit Speech Therapy at [place] [phone] Debra Franco, PARACHUTIST/COMBATANT DIVER QUALIFIED 11/16/2023 9:00 AM EDT Office Visit Hematology and Oncology at [place] [phone] Bisi Nam 11/22/2023 10:00 AM EDT Office Visit [place] [address] Debra Franco, PARACHUTIST/COMBATANT DIVER QUALIFIED 11/30/2023 9:00 AM EDT Office Visit Hematology [place] [address] Bisi Nam 12/14/2023 9:00 AM EDT Office Visit Hematology [place] [address] Bisi Nam 12/28/2023 9:00 AM EDT Office Visit Hematology [place] [address] Bisi Nam documented as of this encounter Visit Diagnoses Diagnosis Primary osteoarthritis of left knee (DJD) Primary localized osteoarthrosis, lower leg documented in this encounter Care Teams Double Backer Relationship Specialty Start Date End Date Molina Herr MD [address] [place] [address] PCP - General 01/27/10 documented as of this encounter
--- OUTSIDE RECORDS SUMMARY | 2023-10-17 15:13 | XMS_ITS | Encounter Summary ---
[place] [address] Care Team Providers Care Plastic Parts Designer Name Role Phone Molina Herr MD Primary Care Provider [phone] Encounter Details Date Type Department Care Team (Latest Contact Info) Description 10/14/2016 1:30 PM EDT Office Visit Audiology at [address] [address] Laisha Granados, NEELIMA [facility] [place] [address] Bilateral sensorineural hearing loss; Ringing in the ears, bilateral Social History Tobacco Use Types Packs/Day [...] of this encounter Progress Notes * Laisha Granados, NEELIMA - 10/14/2016 1:30 PM EDT AUDIOLOGY SECTION HEARING AID SELECTION APPOINTMENT Perfecto Polk, 76 y.o., returns today for hearing aid selection. He presents with a bilateral high frequency hearing loss and bilateral tinnitus. 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 Molina Young Other history: ?? Noticing trouble hearing speech in busy social settings ?? Phone- interested in aids that can be paired to his iPhone ACTIONS TAKEN: ?? Discussed hearing aid styles, technology, and options. In consideration of auditory demands and degree/configuration of hearing loss, it was agreed that Oticon Opn 3 miniRITE hearing aids would beappropriate. ?? Patient was counseled about the terms of the purchase and the thirty day return privilege. ?? Otoscopy was unremarkable although he does report some h/o wax accumulation. PLAN: Binaural hearing aid fitting. documented in this encounter Plan of Treatment Upcoming Encounters Date Type Department Care Team (Late st Contact Info) Description 10/27/2023 11:15 AM EDT Office Visit Palliative Medicine at [place] [phone] Elly Alston MD [facility] HOSPICE [place] [address] 10/27/2023 1:00 PM EDT Office Visit Speech Therapy at [place] [phone] Debra Franco, PLASTIC PARTS DESIGNER 11/03/2023 2:00 PM EDT Office [place] [address] Debra Franco, PLASTIC PARTS DESIGNER 11/08/2023 2:30 PM EDT Appointment MRI at [place] [phone] Navjot Grider MD [facility] [place] [address] 11/09/2023 1:45 PM EDT Office Visit Hematology and Oncology at [place] [phone] Isabell Jacob MD [facility] [place] [address] 11/11/2023 10:30 AM EDT Office Visit Radiation Oncology at [place] [phone] Nicki Sharpe MD [facility] [place] [address] 11/15/2023 10:00 AM EDT Office Visit Speech Therapy at [place] [phone] Debra Franco, PLASTIC PARTS DESIGNER 11/16/2023 9:00 AM EDT Office Visit Hematology [place] [address] Bisi Nam 11/22/2023 10:00 AM EDT Office Visit Speech Therapy at [place] [phone] Debra Franco, PLASTIC PARTS DESIGNER 11/30/2023 9:00 AM EDT Office Visit Hematology [place] [address] Bisi Nam 12/14/2023 9:00 AM EDT Office Visit Hematology [place] [address] Bisi Nam 12/28/2023 9:00 AM EDT Office Visit Hematology [place] [address] Bisi Nam documented as of this encounter Visit Diagnoses Diagnosis Bilateral sensorineural hearing loss Sensorineural hearing loss, bilateral Ringing in the ears, bilateral documented in this encounter Care Teams Plastic Parts Designer Relationship Specialty Start Date End Date Molina Herr MD [address] [place] [address] PCP - General 01/27/10 documented as of this encounter
--- OUTSIDE RECORDS SUMMARY | 2023-10-17 15:13 | XMS_ITS | Encounter Summary ---
Author Organization [facility] [place] [address] Care Team Providers Care Med Aide Name Role Phone Molina Herr MD Primary Care Provider [phone] Reason for Visit * Reason Comments Left Knee Pain knee pain Encounter Details Date Type Department Care Team (Latest Contact Info) Description 12/27/2013 9:00 AM EDT Office [place] [address] Ernie Fuchs MD [facility] DR [place] [address] Primary osteoarthritis of left knee (Primary Dx) Discharge Disposition: Home Social [...] Sign Reading Time Taken Comments Blood Pressure 138/76 12/27/2013 9:01 AM EDT Pulse 81 12/27/2013 9:01 AM EDT Temperature - - Respiratory Rate - - Oxygen Saturation - - Inhaled Oxygen Concentration - - Weight 84.4 kg (186 lb 1.6 oz) 12/27/2013 9:01 A M EDT Height 177.8 cm (5' 10) 12/27/2013 9:01 AM EDT Body Mass Index 26.7 12/27/2013 9:01 AM EDT documented in this encounter Progress Notes * Connor Malik PA - 12/27/2013 9:16 AM EDT PATIENT NAME: Perfecto Polk AGE: 73 y.o. MR#: [id number] DATE OF VISIT: 12/27/2013 DATE OF INJURY/ONSET: 3 months STAFF: The patient was seen and the plan was formulated in conjunction with Dr. Fuchs. CHIEF COMPLAINT: left knee pain HISTORY OF PRESENT ILLNESS Mr. Polk a 73 y.o. year old male comes into clinic today for left knee pain. He reports that he has pain ongoing for several years ago. He reports that about 3 months ago he started to have worsening pain and had difficulty finding a comfortable position for sleep. He was seen by his PCP and diagnosed with pes anserine bursitis and given injections which helped for a few days. He was then referred to PT for stretching, massage. He did not have improvement of his symptoms and had an MRI. He was sen by Debi Ramos PA-C and given an yarn sorter brace and he has found along with NSAIDs/APAP have helped with his pain. He has a burning sensation over the knee. He has decreased swelling. Reports reviewed: office notes. Past Medical History Diagnosis Date ??? Lumbar degenerative disc disease 08/21/2010 Patient Active Problem List Diagnosis Date Noted ??? Osteomyelitis 08/31/2010 ??? Discitis of lumbar region 08/21/2010 ??? Lumbar degenerative disc disease 08/21/2010 Past Surgical History Procedure Date ??? Colonoscopy, biopsy 01/10/2013 COLONOSCOPY FLEXIBLE, WITH BX performed by Dominick Earl MD at [facility] ENDOSCOPY Family History Problem Relation Age of Onset ??? Cancer Brother History Social History ??? Marital Status: Spouse Name: N/A Number of Children: N/A ??? Years of Education: N/A Social History Main Topics ??? Smoking status: Never Smoker ??? Smokeless tobacco: Never Used ??? Alcohol Use: Yes Comment: occasional ??? Drug Use: No ??? Sexually Active: None Other Topics Concern ??? None Social History Narrative ??? None Current Outpatient Prescriptions Medication Sig Dispense Refill ??? naproxen sodium 220 mg Capsule Take by mouth. ??? ketoconazole (NIZORAL) 2 % Cream Apply topically daily. ??? Cholecalciferol, Vitamin D3, 1,000 unit Capsule Take 1,000 Units by mouth daily. ??? Delcambre-3 Fatty Acids-Vitamin E (FISH OIL) 1,000 mg Capsule Take 2,000 mg by mouth daily. ??? omeprazole (PRILOSEC) 10 mg capsule Take 10 mg by mouth daily. ??? slayfrzbuxtkz-IB-hzbx (SOURCE CF) 200-10 mcg-mg Chew Take 1 tablet by mouth daily. ??? aspirin 81 mg EC tablet Take 81 mg by mouth daily. ??? levothyroxine (SYNTHROID) 25 mcg tablet 25MCG = 1 Tablet(s), PO, Once daily ??? atorvastatin (LIPITOR) 10 mg tablet 10mg, PO, Once daily Current Outpatient Prescriptions on File Prior to Visit Medication Sig Dispense Refill ??? ketoconazole (NIZORAL) 2 % Cream Apply topically daily. ??? Cholecalciferol, Vitamin D3, 1,000 unit Capsule Take 1,000 Units by mouth daily. ??? Delcambre-3 Fatty Acids-Vitamin E (FISH OIL) 1,000 mg Capsule Take 2,000 mg by mouth daily. ??? omeprazole (PRILOSEC) 10 mg capsule Take 10 mg by mouth daily. ??? fxyngpdzaxbti-MB-rtmy (SOURCE CF) 200-10 mcg-mg Chew Take 1 tablet by mouth daily. ??? aspirin 81 mg EC tablet Take 81 mg by mouth daily. ??? levothyroxine (SYNTHROID) 25 mcg tablet 25MCG = 1 Tablet(s), PO, Once daily ??? atorvastatin (LIPITOR) 10 mg tablet 10mg, PO, Once daily Allergies Allergen Reactions ??? Penicillins Hives ROS: negative for fever, chills, chest pain, shortness of breath, nausea or vomiting. Physical Exam Blood pressure 138/76, pulse 81, height 177.8 cm (5' 10), weight 84.414 kg (186 lb 1.6 oz). Constitutional: oriented to person, place, and time and well-developed, well- nourished, and in no distress. Skin: Skin is warm and dry. Comments: Comes in without antalgia. Mild effusion. I have made the following determinations: Knee [...] STUDIES: I reviewed images of the left knee taken today, which included, Standing alignment, AP, Lateral, Schuss, Frederick images, which showed advanced DJD of the [...] y.o. male presents to the clinic with Left knee pain secondary to advanced osteoarthritis along with a complex tear of the menisci. We discussed the ladder of therapy for uriel, and where she is currently. We discussed starting with increased low-impact activity and continuing a structured strengthening program of his core, abductor and quadricep muscles. He will also continue use of the yarn sorter knee brace to unload the medial compartment, support and functional mobility. If the patient's symptoms were to worsen or persist he consider undergoing an intra-articularcortiscosteroid injections and/or injection with Visco supplementation. Lastly we discussed that ifhis pain were to start to worsen despite conservative measures he would be a candidate forknee replacement surgery, and it indications, risks and benefits. At this time the patient will continue with conservative measures and return if symptoms worsen at which point we would consider a cortisone injection. This plan was discussed with the patient and they are in agreement. All of the patient's questions were answered. documented in this encounter Plan of Treatment Upcoming Encounters Date Type Department Care Team (Late st Contact Info) Description 10/27/2023 11:15 AM EDT Office Visit Palliative Medicine at [place] [address] Elly Alston MD [facility] HOSPICE [place] [address] 10/27/2023 1:00 PM EDT Office Visit Speech Therapy at [place] [phone] Debra Franco, HOT PIPE GAUGER 11/03/2023 2:00 PM EDT Office Visit Speech Therapy at [place] [phone] Debra Franco, HOT PIPE GAUGER 11/08/2023 2:30 PM EDT Appointment MRI at [address] Navjot Grider MD [facility] [address] [place] [address] 11/09/2023 1:45 PM EDT Office Visit Hematology and Oncology at [address] Isabell Jacob MD [facility] [place] [address] 11/11/2023 10:30 AM EDT Office Visit Radiation Oncology at [place] [phone] Nicki Sharpe MD [facility] [place] [address] 11/15/2023 10:00 AM EDT Office [place] [address] Debra Franco, HOT PIPE GAUGER 11/16/2023 9:00 AM EDT Office Visit Hematology [place] [address] Bisi Nam 11/22/2023 10:00 AM EDT Office [place] [address] Debra Franco, HOT PIPE GAUGER 11/30/2023 9:00 AM EDT Office Visit Hematology [place] [address] Bisi Nam 12/14/2023 9:00 AM EDT Office Visit Hematology [place] [address] Bisi Nam 12/28/2023 9:00 AM EDT Office Visit Hematology [place] [address] Bisi Nam documented as of this encounter Visit Diagnoses Diagnosis Primary osteoarthritis of left knee- Primary Primary localized osteoarthrosis, lower leg documented in this encounter Care Teams Med Aide Relationship Specialty Start Date End Date Molina Herr MD [address] [place] [address] PCP - General 01/27/10 documented as of this encounter
--- OUTSIDE RECORDS SUMMARY | 2023-10-17 15:13 | XMS_ITS | Encounter Summary ---
[place] [address] Care Team Providers Care Global Chief Creative Officer Name Role Phone Molina Herr MD Primary Care Provider Reason for Visit * Audiology Exam (Routine) - Closed Specialty Diagnoses / Procedures Referred By Contac t Referred To Contact Audiology Diagnoses Hearing loss, bilateral Procedures AMB Molina Zapata MD [address] [place] [address] Laisha Granados [facility] [place] [address] Referral ID Status Reason Start Date Expiration Date Visits Re quested Visits Authorized [id number] Closed 02/20/2016 02/19/2017 1 1 Encounter Details Date Type Department Care Team (Latest Contact Info) Description 03/19/2016 8:45 AM EST Office Visit Audiology at [address] [address] Laisha Granados [facility] [place] [address] Bilateral sensorineural hearing loss; Ringing in the [...] Progress Notes * Laisha Granados AUD - 03/19/2016 10:15 [place] [address] (phone), (fax) Perfecto Polk was seen on 03/19/2016 for an audiologic evaluation. Please refer to the scanned audiogram under Procedures for findings, impressions, and recommendations. documented in this encounter Plan of Treatment Upcoming Encounters Date Type Department Care Team (Late st Contact Info) Description 10/27/2023 11:15 AM EDT Office Visit Palliative Medicine at [place] [phone] Elly lAston MD [facility] DR HOSPICE [place] [address] 10/27/2023 1:00 PM EDT Office Visit [place] [phone] Debra Franco, CAMP ATTENDANT 11/03/2023 2:00 PM EDT Office Visit [place] [phone] Debra Franco, CAMP ATTENDANT 11/08/2023 2:30 PM EDT [place] [phone] Navjot Grider MD [facility] [place] [address] 11/09/2023 1:45 PM EDT Office Visit Hematology and Oncology at [place] [phone] Isabell Jacob MD [facility] [place] [address] 11/11/2023 10:30 AM EDT Office Visit Radiation Oncology at [place] [address] Nicki Sharpe MD [facility] [place] [address] 11/15/2023 10:00 AM EDT Office Visit [place] [address] Debra Franco, CAMP ATTENDANT 11/16/2023 9:00 AM EDT Office Visit Hematology [place] [address] Bisi Nam 11/22/2023 10:00 AM EDT Office Visit [place] [address] Debra Franco, CAMP ATTENDANT 11/30/2023 9:00 AM EDT Office Visit Hematology [place] [address] Bisi Nam 12/14/2023 9:00 AM EDT Office Visit Hematology [place] [address] Bisi Nam 12/28/2023 9:00 AM EDT Office Visit Hematology [place] [address] Bisi Nam documented as of this encounter Procedures Procedure Name Priority Date/Time Associated Diagnosis Comments COMPREHENSIVE HEARING TEST Routine 03/19/2016 9:07 AM EST documented in this encounter Results * Comprehensive hearing test (03/19/2016 9:07 AM EST) 03/19/2016 9:07 AM EST Narrative AUDBASE COMP - 03/19/2016 9:07 AM EST Referred by Dr. Molina Young, PCP for updated hearing evaluation. 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 He reports long-standing bilateral hearing loss; last seen at [facility] [place]. ??Recently has noticed increased difficulty hearing in background noise and hearing the TV. ?? Familial h/o HL: mother as an older adult and sister had unilateral HL. Noise exposure history: worked in [employer] as a teenager. ?? Recommendations: 1) Consider trial with amplification. ?? 2) Use of hearing protection as needed. 3) Use of communication strategies. ?? 4) Could consider ENT consultation due to slight asymmerty (LE poorer). No unilateral symptoms reported on the left. Procedure Note Unknown - 03/25/[address] 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 He reports long-standing bilateral hearing loss; last seen at [facility] [id number]. Recently has noticed increased difficulty hearing in background noise and hearing theTV. Familial h/o HL: mother as an older adult and sister had unilateral HL. Noise exposurehistory: worked in [employer] as a teenager. Recommendations: 1) Consider trial with amplification. 2) Use of hearing protection as needed. 3) Use of communication strategies. 4) Could consider ENT consultation due to slight asymmerty (LE poorer). Nounilateral symptoms reported on the left. Unknown AUDIOLOGY SERVICES O RDERABLES AUDBASE COMP documented in this encounter Visit Diagnoses Diagnosis Bilateral sensorineural hearing loss Sensorineural hearing loss, bilateral Ringing in the ears, bilateral documented in this encounter Care Teams Global Chief Creative Officer Relationship Specialty Start Date End Date Moilna Herr MD [address] [place] [address] PCP - General 01/27/10 documented as of this encounter
--- OUTSIDE RECORDS SUMMARY | 2023-10-17 15:13 | XMS_ITS | Encounter Summary ---
Author Organization [facility] [place] [address] Care Team Providers Care [facility] Attendant Name Role Phone Molina Herr MD Primary Care Provider [phone] Encounter Details Date Type Department Care Team (Latest Contact Info) Description 11/26/2016 1:30 PM EDT Office Visit Audiology at [address] [address] Laisha Granados, NEELIMA [facility] [place] [address] Bilateral sensorineural hearing loss Social History Tobacco [...] Progress Notes * Laisha Granados, NEELIMA - 11/26/2016 1:30 PM EDT AUDIOLOGY SECTION HEARING AID FITTING REPORT Perfecto Polk, 76 y.o., returns today for fitting of binaural BTE hearing aids. He reports the following concerns: - Retention legs too long - Battery drain on adriana does not coincide with the low battery indictor tone - Ears have been itchy - What is the iPhone tommy in the adriana? - Random voice prompts- he disabled them but wonders why they are happening Actions Taken: ??? Replaced the right cord and retention leg. ??? Called [employer] for other questions. ??? They suspect one aid is out of the adriana/iphone range when he gets a vocie prompt. Replacing the right cord may help with this if it is an antenna problem ?? iphone battery estimates are a feature they are still working on. They advise to trust the tone indicators instead. ?? IPhone tommy is intended to turn your phone into a wireless tommy to be worn by another speaker. ?? Recommended he try a couple drops of mineral oil at night to soften the skin in the ear canal. If the ears are itchy because of dryness this might help. Plan: Return PRN HEARING AID(S): HEARING AID RIGHT LEFT Make/Model/Style [employer]on Opn 3 miniRITE [employer]on Opn 3 miniRITE Casing Color 92 (ann) 92 (ann) Serial Number [id number] Battery Size 312 312 Invoice number / date [id number] 10/27/16 [id number] 10/27/16 PROGRAM/SETTINGS Fitting Algorithm DSL 5a DSL 5a Verification Method REM, RECD REM, RECD Programs Normal Speech in noise Music Comfort Normal Speech in noise Music Comfort Disabled Features Other HEARING AID WARRANTY Original Fit Date 11/11/16 11/11/16 Current Status 11/28/19 11/28/19 EARMOLD (if BTE POLLARD) Lab Earmold / Slim tube / ANIBAL specifics Length cord= 2 60 Medium open dome Length cord= 2 60 Medium open dome Impression Date Invoice # ACCESSORIES Make/Model Color Serial Number Warranty date Invoice number/date documented in this encounter Plan of Treatment Upcoming Encounters Date Type Department Care Team (Late st Contact Info) Description 10/27/2023 11:15 AM EDT Office [place] [phone] Elly Alston MD [facility] HOSPICE [place] [address] 10/27/2023 1:00 PM EDT Office Visit Speech Therapy at [address] Debra Franco, MEASURING MACHINE TENDER 11/03/2023 2:00 PM EDT Office Visit Speech Therapy at [place] [phone] Debra Franco, MEASURING MACHINE TENDER 11/08/2023 2:30 PM EDT Appointment MRI [address] Navjot Grider MD [facility] [place] [address] 11/09/2023 1:45 PM EDT Office Visit Hematology and Oncology at [place] [phone] Isabell Jacob MD [facility] [place] [address] 11/11/2023 10:30 AM EDT Office Visit Radiation Oncology at [place] [address] Nicki Sharpe MD [facility] [place] [address] 11/15/2023 10:00 AM EDT Office Visit Speech Therapy at [place] [phone] Derba Franco, MEASURING MACHINE TENDER 11/16/2023 9:00 AM EDT Office Visit Hematology and Oncology at [place] [phone] Bisi Nam 11/22/2023 10:00 AM EDT Office [place] [address] Debra Franco, ROLANDO 11/30/2023 9:00 AM EDT Office Visit Hematology [place] [address] Bisi Nam 12/14/2023 9:00 AM EDT Office Visit Hematology [place] [address] Bisi Nam 12/28/2023 9:00 AM EDT Office Visit [place]ematology [place] [address] Bisi Nam documented as of this encounter Visit Diagnoses Diagnosis Bilateral sensorineural hearing loss Sensorineural hearing loss, bilateral documented in this encounter Care Teams [facility] Attendant Relationship Specialty Start Date End Date Molina Herr MD [address] [place] [address] PCP - General 01/27/10 documented as of this encounter
--- OUTSIDE RECORDS SUMMARY | 2023-10-17 15:13 | XMS_ITS | Encounter Summary ---
Author Organization [facility] [place] [address] Care Team Providers Care Pt Escort Name Role Phone Molina Herr MD Primary Care Provider [phone] Encounter Details Date Type Department Care Team (Late st Contact Info) Description 12/04/2014 11:09 AM EDT - 12/04/2014 11:59 PM EDT [place] [phone] Molina Herr MD [address] [place] [address] Social History Tobacco Use Types Packs/Day Years [...] 20 mg by mouth daily. 4 03/08/2014 [id number]-MS-mgyc (SOURCE CF) 200-10 mcg-mg Chew Take 1 tablet by mouth daily. 08/04/2010 levothyroxine (SYNTHROID) 25 mcg tablet 25MCG = 1 Tablet(s), PO, Once daily 09/27/2007 atorvastatin (LIPITOR) 10 mg tablet Take 20 mg by mouth. 09/27/2007 LEVITRA 20 mg Tablet Take 20 mg by mouth as needed. 6 01/21/2014 03/28/2017 naproxen sodium 220 mg Capsule Take by mouth. 03/28/2017 ketoconazole (NIZORAL) 2 % Cream Apply topically daily. 08/10/201303/28 Cholecalciferol, Vitamin D3, 1,000 unit Capsule Take 1,000 Units by mouth daily. 07/28/2023 Ryan-3 Fatty Acids-Vitamin E (FISH OIL) 1,000 mg [...] EDT Office Visit Palliative [place] [address] Elly Alston MD [facility] DR HOSPICE [place] [address] 10/27/2023 1:00 PM EDT Office Visit Speech [place] [phone] Debra Franco, RAILWAY SIGNAL ELECTRICIAN 11/03/2023 2:00 PM EDT Office Visit Speech [place] [phone] Debra Franco, RAILWAY SIGNAL ELECTRICIAN 11/08/2023 2:30 PM EDT Appointment [place] [phone] Navjot Grider MD [facility] [place] [address] 11/09/2023 1:45 PM EDT Office Visit Hematology and Oncology at [place] [phone] Isabell Jacob MD [facility] [place] [address] 11/11/2023 10:30 AM EDT Office Visit Radiation Oncology at [place] [address] Nicki Sharpe MD [facility] [place] [address] 11/15/2023 10:00 AM EDT Office Visit Speech Therapy at [place] [phone] Debra Franco, RAILWAY SIGNAL ELECTRICIAN 11/16/2023 9:00 AM EDT Office Visit Hematology [place] [address] Bisi Nam 11/22/2023 10:00 AM EDT Office Visit Speech Therapy at [place] [phone] Debra Franco, RAILWAY SIGNAL ELECTRICIAN 11/30/2023 9:00 AM EDT Office Visit Hematology [place] [address] Bisi Nam 12/14/2023 9:00 AM EDT Office Visit Hematology [place] [address] Bisi Nam 12/28/2023 9:00 AM EDT Office Visit Hematology [place] [address] Bisi Nam documented as of this encounter Procedures Procedure Name Priority Date/Time Associated Diagnosis Comments HEMOGRAM Routine 12/04/2014 8:11 AM EDT DIFFERENTIAL, AUTOMATED Routine 12/04/2014 8:11 AM EDT GOLD TUBE HOLD Routine 12/04/2014 8:11 AM EDT TSH Routine 12/04/2014 8:11 AM EDT T4, FREE Routine 12/04/2014 8:11 AM EDT PSA (ULTRASENSITIVE) Routine 12/04/2014 8:11 AM EDT LDL CHOLESTEROL, DIRECT Routine 12/04/2014 8:11 AM EDT HEMOGLOBIN A1C Routine 12/04/2014 8:11 AM EDT COMPREHENSIVE METABOLIC PANEL Routine 12/04/2014 8:11 AM EDT documented in this encounter Results * Gold Tube HOLD (12/04/2014 8:11 AM EDT) Gold Hold Sample in lab. [facility] Blood specimen (specimen) Venous Draw / Unknown 12/04/2014 8:11 AM EDT 12/04/2014 11:41 AM EDT Molina Herr MD CHEMISTRY ORDERABLES [facility] * PSA (12/04/2014 8:11 AM EDT) Prostate Specific Antigen (Ultrasensitiv e) 1.17 0.00 - 4.00 ng/mL [facility] Blood specimen (specimen) Venous Draw / Unknown 12/04/2014 8:11 AM EDT 12/04/2014 11:37 AM EDT Narrative Resulting Agency Comment Spec In Lab Molina Herr MD CHEMISTRY ORDERABLES [facility] * TSH (12/04/2014 8:11 AM EDT) Thyroid Stimulating Hormone 3.81 0.27 - 4.20 mcIU/mL [facility] Blood specimen (specimen) Venous Draw / Unknown 12/04/2014 8:11 AM EDT 12/04/2014 11:37 AM EDT Narrative Resulting Agency Comment Spec In Lab Molina Herr MD CHEMISTRY ORDERABLES Performing Organization Address [facility] Co de Phone Number [facility] * T4, free (12/04/2014 8:11 AM EDT) Free T4 1.18 0.93 - 1.70 ng/dL [facility] Blood specimen (specimen) Venous Draw / Unknown 12/04/2014 8:11 AM EDT 12/04/2014 11:37 AM EDT Narrative Resulting Agency Comment Spec In Lab Molina Herr MD CHEMISTRY ORDERABLES Performing Organization Address [facility] de Phone Number [facility] * (ABNORMAL) Hemoglobin A1c (12/04/2014 8:11 AM EDT) Pathologist [facility] Hemoglobin A1c 6.1(H) 4.3 - 5.6 % [facility] Comment: Reference Range: 4.3 - 5.6% 5.7 [...] Mellitus, Diabetes Care 2013; 36: Suppl. 1, S67-93 Estimated Average Glucose See note mg/dL [facility] Comment: Estimated Average Glucose not appropriate for [...] Additional resources are available on the ADA website: [email or web address] Rolly VARGHESE, Isha J, Campbell R, et al. ??Translating the A1C assay into estimated average glucose values. ??Diabetes Care 2008:31(8):5794-5493. Blood specimen (specimen) Venous Draw / Unknown 12/04/2014 8:11 AM EDT 12/04/2014 11:39 AM EDT Narrative Resulting Agency Comment Spec In Lab Molina Herr MD CHEMISTRY ORDERABLES [facility] * Differential, Automated (12/04/2014 8:11 AM EDT) Neutrophil % 50.5 % [facility] Neutrophil Absolute 2.26 1.50 - 6.30 x10(3)/mcL [facility] Lymph % 33.6 % [facility] Lymphocytes Abs 1.5 1.0 - 3.6 x10(3)/mcL [facility] Monocyte % 10.1 % [facility] Monocyte Abs 0.4 0.2 - 1.0 x10(3)/mcL [facility] Eos % 5.1 % [facility] Eosinophils Abs 0.2 0.0 - 0.5 x10(3)/mcL [facility] Basophil % 0.7 % [facility] Baso Absolute 0.0 0.0 - 0.2 x10(3)/mcL [facility] Immature Gran % 0.00 % [facility] Comment: Immature granulocytes(IG's)percentage and absolute count will include metamyelocytes, myelocytes, and promyelocytes. Blood smears from CBCs yielding IG's will be scanned manually for concordance. If this scan disagrees with the automated IG or if promyelocytes are noted, a manual differential will be performed. Immature Gran Absolute 0.00 0.00 - 0.05 x10(3)/mcL [facility] Blood specimen (specimen) Venous Draw / Unknown 12/04/2014 8:11 AM EDT 12/04/2014 11:39 AM EDT Narrative Resulting Agency Comment Spec In Lab Molina Herr MD HEMATOLOGY ORDERABLE S [facility] * (ABNORMAL) Hemogram (12/04/2014 8:11 AM EDT) White Blood Cell 4.5 4.0 - 10.0 x10(3)/mc L [facility] Red Blood Cell 4.77 4.63 - 6.08 x10(6)/mc L [facility] Hemoglobin 12.2(L) 13.7 - 17.5 gm/dL [facility] Hematocrit 38.2(L) 40.0 - 51.0 % [facility]NI[facility] Mean Cell Volume 80.1 79.0 - 92.0 fL [facility]NI[facility] Mean Cell Hemoglobin 25.6 25.6 - 32.2 pg [facility]NI[facility] Mean Cell Hemoglobin Concentration 31.9(L) 32.0 - 36.5 gm/dL [facility] Platelet 275 145 - 370 x10(3)/mc L [facility] RDW Standard Deviation 53.1(H) 35.0 - 46.0 fL [facility] RDW coefficient of variation 18.4(H) 10.9 - 14.4 % [facility]NI[facility] Mean Platelet Volume 10.4 9.0 - 12.0 fL [facility] Blood specimen (specimen) Venous Draw / Unknown 12/04/2014 8:11 AM EDT 12/04/2014 11:39 AM EDT Narrative Resulting Agency Comment Spec In Lab Molina Herr MD HEMATOLOGY ORDERABLE S Performing Organization Address [facility] de Phone Number [facility] * (ABNORMAL) LDL Cholesterol, Direct (12/04/2014 8:11 AM EDT) LDL Cholesterol, Direct 103(H) <=99 mg/dL [facility] Comment: The National Cholesterol Education Program (NCEP) has set the following guidelines for LDL Cholesterol: Reference range: ?? Optimal: ?<100 mg/dL ?? Near Optimal/Above Optimal: ?? 100-129 mg/dL ?? Borderline high: ?130-159 mg/dL ?? High: ? 160-189 mg/dL ?? Very high: ?>tz=379 mg/dL NEYMAR 2001: 28519):2138-2136 Blood specimen (specimen) Venous Draw / Unknown 12/04/2014 8:11 AM EDT 12/04/2014 11:37 AM EDT Narrative Resulting Agency Comment Spec In Lab Molina Herr MD CHEMISTRY ORDERABLES Performing Organization Address [facility] de Phone Number [facility] * (ABNORMAL) Comprehensive metabolic panel (non-fasting) (12/04/2014 8:11 AM EDT) [facility] Glucose 97 65 - 199 mg/dL [facility] Comment:Diabetes: >=200 mg/d L plus symptoms Blood Urea Nitrogen 20 10 - 20 mg/dL [facility] Creatinine 1.18 0.80 - 1.50 mg/dL [facility] Comment: Please note that the pediatric reference intervals supplied above were not validated at [facility]. Results from pediatric patients should be interpreted in conjunction to the patient's age, height and muscle mass. Sodium 142 135 - 145 mmol/L [facility] Potassium 4.4 3.5 - 5.0 mmol/L [facility] Comment: Please note: ??Patients with WBC >100,000 may have falsely elevated Potassium levels. ??For accurate Potassium quantification in these patients send serum separator tube (gold top) for subsequent determinations. ??Contact the Clinical Chemistry Laboratory if there are any questions. Chloride 104 98 - 107 mmol/L [facility] Carbon Dioxide 22 22 - 31 mmol/L [facility] Anion Gap 16(H) 5 - 15 mmol/L [facility] Calcium 9.1 8.5 - 10.5 mg/dL [facility] Protein, Total 6.9 6.1 - 8.0 gm/dL [facility] Albumin 4.2 3.2 - 5.2 gm/dL [facility] Aspartate Aminotransferase 21 0 - 39 unit/L [facility] Alanine Aminotransferase 16 0 - 55 unit/L [facility] Alkaline Phosphatase 54 40 - 120 unit/L [facility]NI[facility] Bilirubin, Total 0.4 0.2 - 1.3 mg/dL [facility] Bilirubin, Direct 0.1 0.0 - 0.3 mg/dL [facility] Est Glomerular Filtration Rate >60 >=60 [facility] Comment: This estimated GFR (eGFR) value was calculated using the MDRD equation which has been validated on patients between the ages of 18 and 70. The MDRD should not be used to assess kidney function in patients < 18 years of age or in patients with extremes of body mass, or in patients with acute kidney failure. This value should be multiplied by 1.2 for patients. For further information please copy and paste the following links into your internet browser. [email or web address] Blood specimen (specimen) Venous Draw / Unknown 12/04/2014 8:11 AM EDT 12/04/2014 11:37 AM EDT Narrative Resulting Agency Comment Spec In Lab Molina Herr MD CHEMISTRY ORDERABLES [facility] documented in this encounter Visit Diagnoses Not on filedocumented in this encounter Care Teams Pt Escort Relationship Specialty Start Date End Date Molina Herr MD [facility] [address] [place] [address] PCP - General 01/27/10 documented as of this encounter
--- OUTSIDE RECORDS SUMMARY | 2023-10-17 15:13 | XMS_ITS | Encounter Summary ---
Author Organization [facility] Address [facility] [place] [address] Care Team Providers Care Physicist Light And Optics Name Role Phone Molina Herr MD Primary Care Provider [phone] Encounter Details Date Type Department Care Team (Late st Contact Info) Description 12/14/2013 9:14 AM EDT - 12/14/2013 11:59 PM EDT Hospital Encounter XRay at [address] [place] [phone] Left knee pain Social History Tobacco Use Types Packs/Day [...] Sig Dispensed Refills Start Date End Date pleozxxmsrkbe-FH-dqld (SOURCE CF) 200-10 mcg-mg Chew Take 1 tablet by mouth daily. 08/04/2010 levothyroxine (SYNTHROID) 25 mcg tablet 25MCG = 1 Tablet(s), PO, Once daily 09/27/2007 atorvastatin (LIPITOR) 10 mg tablet Take 20 mg by mouth. 09/27/2007 ketoconazole (NIZORAL) 2 % Cream Apply topically daily. 08/10/201303/28 Cholecalciferol, Vitamin D3, 1,000 unit Capsule Take 1,000 Units by mouth daily. 07/28/2023 [place]-3 Fatty Acids-Vitamin E (FISH OIL) 1,000 mg [...] Office Visit Palliative Medicine at [place] [address] Elly Alston MD [facility] HOSPICE AND [place] [address] 10/27/2023 1:00 PM EDT Office Visit Speech Therapy at [place] [address] Debra Franco, DEHYDROGENATION OPERATOR 11/03/2023 2:00 PM EDT Office Visit Speech Therapy at [place] [address] Debra Franco, DEHYDROGENATION OPERATOR 11/08/2023 2:30 PM EDT Appointment MRI at [place] [address] Navjot Grider MD [facility] HEMATOLOGY [place] [address] 11/09/2023 1:45 PM EDT Office Visit Hematology and Oncology at [address] Isabell Jacob MD [facility] [place] [address] 11/11/2023 10:30 AM EDT Office Visit [place] [address] Nicki Sharpe MD [facility] DR RADIATION ONCOLOGY [place] [id number] 11/15/2023 10:00 AM EDT Office [place] [address] Debra Franco, DEHYDROGENATION OPERATOR 11/16/2023 9:00 AM EDT Office Visit Hematology [place] [address] Bisi Nam 11/22/2023 10:00 AM EDT Office [place] [address] Debra Franco, DEHYDROGENATION OPERATOR 11/30/2023 9:00 AM EDT Office Visit Hematology [place] [address] Bisi Nam 12/14/2023 9:00 AM EDT Office Visit Hematology [place] [address] Bisi Nam 12/28/2023 9:00 AM EDT Office Visit Hematology [place] [address] Bisi Nam documented as of this encounter Procedures Procedure Name Priority Date/Time Associated Diagnosis Comments XR JOINT TEAM ALIGNMENT AP LAT SCHUSS SKYLINE Routine 12/14/2013 9:33 AM EDT Left knee pain documented in this encounter Results * XR Joint Team alignment AP LAT Schuss [place] (12/14/2013 9:33 AM EDT) Anatomical Region Laterality Modality N/A Radiographic Ilana ging 12/14/2013 9:33 AM EDT Narrative 12/14/2013 9:51 AM EDT Examination JOINT TEAM STANDING ALIGNMENT AP LAT SCHUSS SKYLINE/LEFT Clinical History LEFT KNEE PAIN Comparison None Technique Separate images of the pelvis, knees and feet were acquired in the AP projection with the patient standing. In addition to routine views of the knee, these images were stitched together to form a composite image of the pelvis and legs allowing for evaluation of lower extremity alignment in the weight bearing position. Findings Exam 1 - Standing alignment ?? The bilateral weightbearing axes are midline. ??The near midline. Exam 2: Standing AP, Schuss and skyline views of both knees and lateral view of the left knee. Delete ?? medial joint spaces of both knees are narrowed accompanied by diffuse osteophyte formation. ??The lateral patella femoral joint spaces are also narrowed with mild lateral subluxation. ??There is a small left knee effusion. Impression Osteoarthropathy of both knees with narrowed patellofemoral and medial joint spaces. Procedure Note Deepa Nazario MD - 12/14/2013 Examination JOINT TEAM STANDING ALIGNMENT AP LAT SCHUSS SKYLINE/LEFT Clinical History LEFT KNEE PAIN Comparison None Technique Separate images of the pelvis, knees and feet were acquired in the AP projection with the patient standing. In addition to routine views of theknee, these images were stitched together to form a composite image of thepelvis and legs allowing for evaluation of lower extremity alignment in the weightbearing position. Findings Exam 1 - Standing alignment The bilateral weightbearing axes are midline. The near midline. Exam 2: Standing AP, Schuss and skyline views of both knees and lateralview of the left knee. Delete medial joint spaces of both knees are narrowed accompanied by diffuse osteophyte formation. The lateral patella femoral joint spaces are also narrowed with mild lateral subluxation. There is a small left kneeeffusion. Impression Osteoarthropathy of both knees with narrowed patellofemoral and medialjoint spaces. Ernie Fuchs MD IMG DX ORDERABLES documented in this encounter Visit Diagnoses Diagnosis Left knee pain Pain in joint, lower leg documented in this encounter Care Teams Physicist Light And Optics Relationship Specialty Start Date End Date Molina Herr MD [facility] [address] [place] [address] PCP - General 01/27/10 documented as of this encounter
--- OUTSIDE RECORDS SUMMARY | 2023-10-17 15:13 | XMS_ITS | Encounter Summary ---
Author Organization [facility] [place] [address] Care Team Providers Care Carburetor Expert Name Role Phone Molina Herr MD Primary Care Provider [phone] Encounter Details Date Type Department Care Team (Late st Contact Info) Description 12/03/2013 Orders Only [place] [phone] Ernie Fuchs MD [facility] DR ORTHOPAEDIC [place] [address] Left knee pain (Primary Dx) Social History Tobacco Use Types Packs/Day Years Used Date Smoking Tobacco: Never Alcohol Use Standard Drinks/Week Comments [...] AM EDT Office Visit Palliative [place] [phone] Elly Alston MD [facility] DR HOSPICE AND PALLIATIVE [place] [address] 10/27/2023 1:00 PM EDT Office Visit Speech Therapy at [place] [address] Debra Franco, CO FOUNDER 11/03/2023 2:00 PM EDT Office Visit Speech Therapy at [place] [phone] Debra Franco, CO FOUNDER 11/08/2023 2:30 PM EDT Appointment MRI at [address] Navjot Grider MD [facility] DR [place] [address] 11/09/2023 1:45 PM EDT Office Visit Hematology and Oncology at [place] [address] Isabell Jacob MD [facility] [place] [address] 11/11/2023 10:30 AM EDT Office Visit Radiation Oncology at [address] Nicki hSarpe MD [facility] [place] [address] 11/15/2023 10:00 AM EDT Office Visit Speech Therapy at [place] [phone] Debra Franco, CO FOUNDER 11/16/2023 9:00 AM EDT Office Visit Hematology and Oncology at [place] [phone] Bisi Nam 11/22/2023 10:00 AM EDT Office Visit Speech Therapy at [place] [phone] Debra Franco, CO FOUNDER 11/30/2023 9:00 AM EDT Office Visit Hematology [place] [address] Bisi Nam 12/14/2023 9:00 AM EDT Office Visit Hematology [place] [address] Bisi Nam 12/28/2023 9:00 AM EDT Office Visit Hematology [place] [address] Bisi Nam documented as of this encounter Results * XR Joint Team alignment AP LAT Schuss [place] (12/14/2013 9:33 AM EDT) Anatomical Region Laterality [...] this encounter Visit Diagnoses Diagnosis Left knee pain- Primary Pain in joint, lower leg Left knee pain Pain in joint, lower leg documented in this encounter Care Teams Carburetor Expert Relationship Specialty Start Date End Date Molina Herr MD [address] [address] [place] [address] PCP - General 01/27/10 documented as of this encounter
--- OUTSIDE RECORDS SUMMARY | 2023-10-17 15:13 | XMS_ITS | Encounter Summary ---
Author Organization [facility] [place] [address] Care Team Providers Care Wildlife Conservationist Name Role Phone Molina Herr MD Primary Care Provider [phone] Encounter Details Date Type Department Care Team (Late st Contact Info) Description 12/16/2016 Notes Only Audiology at [address] [address] Zulema Pepper Social History Tobacco Use Types Packs/Day Years [...] as of this encounter Progress Notes * Zulema Pepper - 12/16/2016 3:15 PM EDT Pt lost his left hearing aid while in the hospital. He has traced his steps and checked with Security to see if anyone turned in a hearing aid. Loss claim sent to [employer] and will call him when replacement is here. He also requested if possible to have Volume control activated in his hearing aids. HEARING AID(S): HEARING AID RIGHT LEFT Make/Model/Style [employer] Opn 3 miniRITE [employer] Opn 3 miniRITE Casing Color 92 (ann) 92 (ann) Serial Number [id number] Battery Size 312 312 Invoice number / date [id number] 10/27/16 [id number] 10/27/16 PROGRAM/SETTINGS ? Fitting Algorithm DSL 5a DSL 5a Verification Method REM, RECD REM, RECD Programs Normal Speech in noise Music Comfort Normal Speech in noise Music Comfort Disabled Features ? Other ? HEARING AID WARRANTY ? Original Fit Date 11/11/16 11/11/16 Current Status 11/28/19 11/28/19 EARMOLD (if BTE POLLARD) ? Lab ? [...] AM EDT Office [place] [address] Elly Alston MD [facility] HOSPICE AND [place] [address] 10/27/2023 1:00 PM EDT Office [place] [address] Debra Franco, ROOFING MACHINE TENDER 11/03/2023 2:00 PM EDT Office [place] [phone] Debra Franco, ROOFING MACHINE TENDER 11/08/2023 2:30 PM EDT Appointment MRI at [place] [phone] Navjot Grider MD [facility] [place] [address] 11/09/2023 1:45 PM EDT Office Visit Hematology and Oncology at [place] [phone] Isabell Jacob MD [facility] [place] [place] [address] 11/11/2023 10:30 AM EDT Office Visit Radiation Oncology at [place] [address] Nicki Sharpe MD [facility] [place] [address] 11/15/2023 10:00 AM EDT Office Visit Speech Therapy at [place] [phone] Debra Franco, ROOFING MACHINE TENDER 11/16/2023 9:00 AM EDT Office Visit Hematology [place] [address] Bisi Nam 11/22/2023 10:00 AM EDT Office [place] [address] Debra Franco, ROOFING MACHINE TENDER 11/30/2023 9:00 AM EDT Office Visit Hematology [place] [address] Bisi Nam 12/14/2023 9:00 AM EDT Office Visit Hematology [place] [address] Bisi Nam 12/28/2023 9:00 AM EDT Office Visit Hematology [place] [address] Bisi Nam documented as of this encounter Visit Diagnoses Not on filedocumented in this encounter Care Teams Wildlife Conservationist Relationship Specialty Start Date End Date Molina Herr MD [facility] [address] [place] [address] PCP - General 01/27/10 documented as of this encounter
--- OUTSIDE RECORDS SUMMARY | 2023-10-17 15:13 | XMS_ITS | Encounter Summary ---
Author Organization [place] [address] Care Team Providers Care Wool Puller Name Role Phone Molina Herr MD Primary Care Provider [phone] Encounter Details Date Type Department Care Team (Latest Contact Info) Description 12/08/2015 10:34 AM EDT - 12/08/2015 11:59 PM EDT Hospital [place] [address] Discharge Disposition: Home Social History [...] 20 mg by mouth daily. 4 03/08/2014 ternmoxuulmoy-PG-nuey (SOURCE CF) 200-10 mcg-mg Chew Take 1 [...] Take 1,000 Units by mouth daily. 07/28/2023 [place]-3 Fatty Acids-Vitamin E (FISH OIL) 1,000 mg [...] AM EDT Office Visit [place] [address] Elly Alston MD [facility] HOSPICE AND [place] [address] 10/27/2023 1:00 PM EDT Office [place] [address] Debra Franco, AVIATION ELECTRICAL TECHNICIAN 11/03/2023 2:00 PM EDT Office [place] [address] Debra Franco, AVIATION ELECTRICAL TECHNICIAN 11/08/2023 2:30 PM ED[place] [address] Navjot Grider MD [facility] HEMATOLOGY [place] [address] 11/09/2023 1:45 PM EDT Office Visit Hematology [place] [address] Isabell Jacob MD [facility] DR NEUROLOGY [place] [phone] 11/11/2023 10:30 AM EDT Office Visit [place] [address] Nicki Sharpe MD [facility] [place] [address] 11/15/2023 10:00 AM EDT Office Visit [place] [address] Debra Franco, AVIATION ELECTRICAL TECHNICIAN 11/16/2023 9:00 AM EDT Office Visit Hematology [place] [address] Bisi Nam 11/22/2023 10:00 AM EDT Office [place] [address] Debra Franco, AVIATION ELECTRICAL TECHNICIAN 11/30/2023 9:00 AM EDT Office Visit Hematology [place] [address] Bisi Nam 12/14/2023 9:00 AM EDT Office Visit Hematology [place] [address] Bisi Nam 12/28/2023 9:00 AM EDT Office Visit Hematology [place] [address] Bisi Nam documented as of this encounter Procedures Procedure Name Priority Date/Time Associated Diagnosis Comments PSA SCREEN Routine 12/08/2015 7:55 AM EDT HEMOGRAM Routine 12/08/2015 7:55 AM EDT DIFFERENTIAL, AUTOMATED Routine 12/08/2015 7:55 AM EDT GOLD TUBE HOLD Routine 12/08/2015 7:55 AM EDT TSH Routine 12/08/2015 7:55 AM EDT LDL CHOLESTEROL, DIRECT Routine 12/08/2015 7:55 AM EDT HDL/CHOL PROFILE Routine 12/08/2015 7:55 AM EDT HEMOGLOBIN A1C Routine 12/08/2015 7:55 AM EDT COMPREHENSIVE METABOLIC PANEL Routine 12/08/2015 7:55 AM EDT documented in this encounter Results * Gold Tube HOLD (12/08/2015 7:55 AM EDT) Pathologist [facility] Gold Hold Sample in lab. [facility] Blood specimen (specimen) No Charge / Unknown 12/08/2015 7:55 AM EDT 12/08/2015 10:48 AM EDT Molina Herr MD CHEMISTRY ORDERABLES [facility] [place] [place] [address] * PSA Screen (12/08/2015 7:55 AM EDT) [facility] PSA Screen 1.45 0.00 - 4.00 ng/mL [facility] Blood specimen (specimen) Venous Draw / Unknown 12/08/2015 7:55 AM EDT 12/08/2015 10:45 AM EDT Narrative Resulting Agency Comment Spec In Lab Molina Herr MD CHEMISTRY ORDERABLES [facility] [place] [address] * TSH (12/08/2015 7:55 AM EDT) Thyroid Stimulating Hormone 3.33 0.27 - 4.20 mcIU/mL [facility] Blood specimen (specimen) Venous Draw / Unknown 12/08/2015 7:55 AM EDT 12/08/2015 10:45 AM EDT Narrative Resulting Agency Comment Spec In Lab Molina Herr MD CHEMISTRY ORDERABLES [facility] [place] [address] * Hemoglobin A1c (12/08/2015 7:55 AM EDT) Hemoglobin A1c 5.4 4.3 - 5.6 % [facility] Comment: Reference Range: 4.3 [...] Mellitus, Diabetes Care 2013; 36: Suppl. 1, S67-64 Estimated Average Glucose See note mg/dL [facility] Comment: Estimated Average Glucose [...] resources are available on the ADA website: http://[employer].Achilles [email or web address] Rolly VARGHESE, Isha J, Campbell R, et al. ??Translating the A1C assay into estimated average glucose values. ??Diabetes Care 2008:31(8):1208-4026. Blood specimen (specimen) Venous Draw / Unknown 12/08/2015 7:55 AM EDT 12/08/2015 10:46 AM EDT Narrative Resulting Agency Comment Spec In Lab Molina Herr MD CHEMISTRY ORDERABLES [facility] [place] [address] * Differential, Automated (12/08/2015 7:55 AM EDT) Neutrophil % 56.4 % [facility] Neutrophil Absolute 2.86 1.70 - 6.10 x10(3)/[facility] Lymph % 28.3 % [facility] Lymphocytes Abs 1.4 0.9 - 3.2 x10(3)/[facility] Monocyte % 10.6 % [facility] Monocyte Abs 0.5 0.3 - 0.9 x10(3)/[facility] Eos % 3.3 % [facility] Eosinophils Abs 0.2 0.0 - 0.4 x10(3)/[facility] Basophil % 1.0 % [facility] Baso Absolute 0.0 0.0 - 0.1 x10(3)/[facility]ORY Immature Gran % 0.40 % [facility] Comment: Immature granulocytes(IG's)percentage and absolute count will include metamyelocytes, myelocytes, and promyelocytes. Blood smears from CBCs yielding IG's will be scanned manually for concordance. If this scan disagrees with the automated IG or if promyelocytes are noted, a manual differential will be performed. Immature Gran Absolute 0.02 0.00 - 0.04 x10(3)/[facility] Blood specimen (specimen) Venous Draw / Unknown 12/08/2015 7:55 AM EDT 12/08/2015 10:46 AM EDT Narrative Resulting Agency Comment Spec In Lab Molina Herr MD HEMATOLOGY ORDERABLE S [facility] [address] * (ABNORMAL) Hemogram (12/08/2015 7:55 AM EDT) White Blood Cell 5.1 4.0 - 9.5 x10(3)/[facility] LABORATORY Red Blood Cell 4.69 4.58 - 5.54 x10(6)/[facility] Hemoglobin 13.0(L) 13.7 - 16.5 gm/dL [facility] Hematocrit 41.8 40.5 - 48.5 % [facility] Mean Cell Volume 89.1 82.9 - 93.1 fL [facility] Mean Cell Hemoglobin 27.7 27.5 - 32.1 pg [facility] Mean Cell Hemoglobin Concentration 31.1(L) 32.0 - 35.7 gm/dL [facility] Platelet 266 145 - 357 x10(3)/[facility] RDW Standard Deviation 45.2(H) 36.0 - 45.0 [facility] RDW coefficient of variation 14.0(H) 11.4 - 13.8 % [facility] Mean Platelet Volume 10.0 7.6 - 12.9 [facility] NRBC% auto 0.0 % [facility] NRBC Absolute 0.000 0.000 - 0.000 x10(3)/[facility] Blood specimen (specimen) Venous Draw / Unknown 12/08/2015 7:55 AM EDT 12/08/2015 10:46 AM EDT Narrative Resulting Agency Comment Spec In Lab Molina Herr MD HEMATOLOGY ORDERABLE S Performing Organization Address [facility] Co de Phone Number [facility] [place] [address] * HDL/Cholesterol Profile (12/08/2015 7:55 AM EDT) Cholesterol, Total 178 <=199 mg/dL [facility] Comment: Recommendations of the NCEP Adult Treatment Panel for the following risk cutoff thresholds for the [place] population: Desirable: <200 mg/dL Borderline High: 200-239 mg/dL High: > or = 240 mg/dL HDL Cholesterol 52 >=40 mg/dL [facility] Comment: Reference range: ??Low HDL: ?? < 40 mg/dL ??Normal: ?40-60 mg/dL ??Desirable: > 60 mg/dL NEYMAR 2001; 285(19):6181-7737 Cholesterol/HDL Ratio 3.4 ratio [facility] Comment: A Cholesterol to HDL ratio below 4:1 is desirable. ??Studies suggest that increased CAD risk occurs at ratios above 5 for females and above 6 for men. ? [place] Heart Association ??(http://www.americanheart.org) ? Ayde Int Med, 1994; 121:641 ? AM J Med, 1998; 105(1A):48S Blood specimen (specimen) Venous Draw / Unknown 12/08/2015 7:55 AM EDT 12/08/2015 10:45 AM EDT Narrative Resulting Agency Comment Spec In Lab Molina Herr MD CHEMISTRY ORDERABLES Performing Organization Address [facility] Co de Phone Number [facility] [place] [address] * (ABNORMAL) LDL Cholesterol, Direct (12/08/2015 7:55 AM EDT) LDL Cholesterol, Direct 118(H) <=99 mg/dL [facility] Comment: The National Cholesterol Education Program (NCEP) has set the following guidelines for LDL Cholesterol: Reference range: ?? Optimal: ?<100 mg/dL ?? Near Optimal/Above Optimal: ?? 100-129 mg/dL ?? Borderline high: ?130-159 mg/dL ?? High: ? 160-189 mg/dL ?? Very high: ?>wc=363 mg/dL NEYMAR 2001: 285(54):8924-2125 Blood specimen (specimen) Venous Draw / Unknown 12/08/2015 7:55 AM EDT 12/08/2015 10:45 AM EDT Narrative Resulting Agency Comment Spec In Lab Molina Herr MD CHEMISTRY ORDERABLES [facility] [place] [address] * (ABNORMAL) Comprehensive metabolic panel (non-fasting) (12/08/2015 7:55 AM EDT) Glucose 95 65 - 199 mg/dL [facility] Comment:Diabetes: >=200 mg/d L plus symptoms Blood Urea Nitrogen 23(H) 10 - 20 mg/dL [facility] Creatinine 1.23 0.80 - 1.50 mg/dL [facility] Comment: Please note that the pediatric reference intervals supplied above were not validated at [facility]. Results from pediatric patients should be interpreted in conjunction to the patient's age, height and muscle mass. Sodium 142 135 - 145 mmol/L [facility] Potassium 4.2 3.5 - 5.0 mmol/L [facility] Comment: Please note: ??Patients with WBC >100,000 may have falsely elevated Potassium levels. ??For accurate Potassium quantification in these patients send serum separator tube (gold top) for subsequent determinations. ??Contact the Clinical Chemistry Laboratory if there are any questions. Chloride 101 98 - 107 mmol/L [facility] Carbon Dioxide 25 22 - 31 mmol/L [facility] Anion Gap 16(H) 5 - 15 mmol/L [facility] Calcium 9.5 8.5 - 10.5 mg/dL [facility] Protein, Total 6.7 6.1 - 8.0 gm/dL [facility] Albumin 4.0 3.2 - 5.2 gm/dL [facility] Aspartate Aminotransferase 16 0 - 39 unit/L [facility] Alanine Aminotransferase 14 0 - 55 unit/L [facility] Alkaline Phosphatase 55 40 - 120 unit/L [facility] Bilirubin, Total 0.3 0.2 - 1.3 mg/dL [facility] Bilirubin, Direct 0.1 0.0 - 0.3 mg/dL [facility] Est Glomerular Filtration Rate 58(L) >=60 [facility] Comment: This estimated GFR (eGFR) value was [...] the following links into your internet browser. [email or web address] Blood specimen (specimen) Venous Draw / Unknown 12/08/2015 7:55 AM EDT 12/08/2015 10:45 AM EDT Narrative Resulting Agency Comment Spec In Lab Molina Herr MD CHEMISTRY ORDERABLES [facility] [place] [address] documented in this encounter Visit Diagnoses Not on filedocumented in this encounter Care Teams Wool Puller Relationship Specialty Start Date End Date Molina Herr MD [facility] [address] [place] [address] PCP - General 01/27/10 documented as of this encounter
--- OUTSIDE RECORDS SUMMARY | 2023-10-17 15:13 | XMS_ITS | Encounter Summary ---
[place] [address] Care Team Providers Care Transport Operations Inspector Name Role Phone Molina Herr MD Primary Care Provider [phone] Reason for Referral * Diagnostic Test (Emergency) - Closed Specialty Diagnoses / Procedures Referred By Flo t Referred To Contact Radiology Diagnoses Right lower quadrant pain Procedures CT Abdomen & Pelvis w Contrast Sandra Tolentino MD [address] [facility] [place] [address] Referral ID Status Reason Start Date Expiration Date V isits Requested Visits Authorized [id number] Closed Specialty Service Requested 03/08/2017 03/08/2018 1 1 Reason for Visit * Auth/Cert Specialty Diagnoses / Procedures Referred By Flo t Referred To Contact Diagnoses Acute appendicitis Acute Appendicitis Procedures LAPAROSCOPIC APPENDECTOMY (WRVU 9.45) Referral ID Status Reason Start Date Expiration Date Visits Re quested Visits Authorized [id number] 1 1 Encounter Details Date Type Department Care Team (Latest Contact Info) Description 03/08/2017 4:06 PM EST - 03/08/2017 6:25 PM EST Hospital [place] [address] Sandra Tolentino MD [address] [place] [address] Right lower quadrant pain Discharge Disposition: Home Social History Tobacco [...] 20 mg by mouth daily. 4 03/08/2014 [id number] (SOURCE CF) 200-10 mcg-mg Chew Take 1 [...] Take 1,000 Units by mouth daily. 07/28/2023 [place]-3 Fatty Acids-Vitamin E (FISH OIL) 1,000 mg [...] AM EDT Office Visit Palliative Medicine at [place] [address] Elly Alston MD [facility] HOSPICE [place] [address] 10/27/2023 1:00 PM EDT Office Visit Speech Therapy at [place] [address] Debra Franco, GIS PROGRAMMER 11/03/2023 2:00 PM EDT Office Visit Speech Therapy at [place] [address] Debra Franco, GIS PROGRAMMER 11/08/2023 2:30 PM EDT Appointment MRI at [place] [address] Navjot Grider MD [facility] [address] [place] [address] 11/09/2023 1:45 PM EDT Office Visit Hematology and Oncology at [place] [address] Isabell Jacob MD [facility] [place] [address] 11/11/2023 10:30 AM EDT Office Visit Radiation Oncology at [place] [address] Nicki Sharpe MD [facility] [address] 11/15/2023 10:00 AM EDT Office Visit Speech Therapy at [address] Debra Franco, ROLANDO 11/16/2023 9:00 AM EDT Office Visit Hematology [place]cology [place] [address] Bisi Nam 11/22/2023 10:00 AM EDT Office Visit Speech Therapy [place] [facility] [place] [place] [address] Debra Fracno SLP 11/30/2023 9:00 AM EDT Office Visit Hematology [place] [address] Bisi Nam 12/14/2023 9:00 AM EDT Office Visit Hematology and [place]cology [place] [address] Jenny Nambejoyce Servin 12/28/2023 9:00 AM EDT Office Visit Hematology [place] [address] Bisi Nam documented as of this encounter Procedures Procedure Name Priority Date/Time Associated Diagnosis Comments CT ABDOMEN AND PELVIS W CONTRAST STAT 03/08/2017 6:42 PM EST Right lower quadrant pain documented in this encounter Results * CT Abdomen & Pelvis w Contrast (03/08/2017 6:42 PM EST) Anatomical Region Laterality Modality Abdomen, Pelvis Computed Tomogra phy Impressions 03/08/2017 7:09 PM EST 1. Fluid-filled and dilated appendix with. He appendiceal stranding in the right lower quadrant. No focal fluid collection. No free air and no obstruction. 2. Findings were called directly to Dr. Sandra Orozco and patient transferred to the emergency department. 3. Dr. Alexander spoke directly to Dr. Todd Ace. ?? Narrative 03/08/2017 7:09 PM EST EXAMINATION: ??CT ABDOMEN AND PELVIS W CONTRAST CLINICAL HISTORY: ??76 year old male with RLQ abdominal pain, Evaluate for appendicitis TECHNIQUE: Helical CT of the abdomen and pelvis was performed following the intravenous administration of contrast. 96 cc of Omnipaque 350 was given. Oral contrast was administered. COMPARISON: ??None FINDINGS: Lower chest: Normal. Lower cardiac silhouette. Mildly enlarged no pericardial fluid. Liver: Normal size and attenuation without lesions. Bile ducts: Nondilated. Gallbladder: No calcified gallstones. Normal caliber wall. Pancreas: Normal attenuation without ductal dilatation. Spleen: Normal. Adrenals: Normal. Kidneys: Normal. ? Vasculature: No aneurysm. Lymph Nodes: No enlarged lymph nodes. Bowel:Small bowel and colon, nondilated no wall thickening. ABNORMAL APPEARING appendix with fluid-filled thickened wall and periappendiceal stranding. Inflammatory changes extend to the right pelvic sidewall. No localized fluid collection. Mesenteric inflammatory changes localized within the right lower quadrant. Peritoneum and mesentery: No ascites, free air, or loculated fluid collection. No mesenteric inflammation. Abdominal wall: Normal. Urinary Bladder: Normal. Added pelvic phleboliths and nodular appearance to the prostate. Reproductive organs: Normal. Osseous structures: No suspicious lesions. Procedure Note Mendy Alexander MD - 03/08/2017 EXAMINATION: CT ABDOMEN AND PELVIS W CONTRAST CLINICAL HISTORY: 76 year old male with RLQ abdominal pain, Evaluatefor appendicitis TECHNIQUE: Helical CT of the abdomen and pelvis was performed followingthe intravenous administration of contrast. 96 cc of Omnipaque 350 was given.Oral contrast was administered. COMPARISON: None FINDINGS: Lower chest: Normal. Lower cardiac silhouette. Mildly enlarged no pericardial fluid. Liver: Normal size and attenuation without lesions. Bile ducts: Nondilated. Gallbladder: No calcified gallstones. Normal caliber wall. Pancreas: Normal attenuation without ductal dilatation. Spleen: Normal. Adrenals: Normal. Kidneys: Normal. Vasculature: No aneurysm. Lymph Nodes: No enlarged lymph nodes. Bowel:Small bowel and colon, nondilated no wall thickening. ABNORMALAPPEARING appendix with fluid-filled thickened wall and periappendiceal stranding. Inflammatory changes extend to the right pelvic sidewall. No localizedfluid collection. Mesenteric inflammatory changes localized within the rightlower quadrant. Peritoneum and mesentery: No ascites, free air, or loculated fluidcollection. No mesenteric inflammation. Abdominal wall: Normal. Urinary Bladder: Normal. Added pelvic phleboliths and nodular appearanceto the prostate. Reproductive organs: Normal. Osseous structures: No suspicious lesions. IMPRESSION 1. Fluid-filled and dilated appendix with. He appendiceal stranding in theright lower quadrant. No focal fluid collection. No free air and noobstruction. 2. Findings were called directly to Dr. Sandra Orozco and patienttransferred to the emergency department. 3. Dr. Alexander spoke directly to Dr. Todd Ace. 7:09 PM Sandra Tolentino MD IM CT ORDERABLES documented in this encounter Visit Diagnoses Diagnosis Right lower quadrant pain Abdominal pain, right lower quadrant documented in this encounter Administered Medications Inactive Administered Medications - up to 3 most recent administrations Medication Order MAR Action Action Date Dose Rate Site iohexol (OMNIPAQUE) 350 mg/mL solution 0-200 mL 0-200 mL, Intravenous, ONCE PRN, 1 dose, Starting on Tue03/08/17 at 1842, Until Tue03/08/17 at 1843, Per Protocol, Warning Vesicant/Irritant Medication , Radiology Contrast, Routine Given 03/08/2017 6:43 PM EST 96 mLs iohexol (OMNIPAQUE) 350 mg/mL solution 50 mL 50 mL, Oral, ONCE PRN, 1 dose, Starting on Tue03/08/17 at 1842, Until Tu03/08/17 at 1800, Per Protocol, Warning Vesicant/Irritant Medication , Routine Given 03/08/2017 6:00 PM EST 50 mLs documented in this encounter Care Teams Transport Operations Inspector Relationship Specialty Start Date End Date Molina Herr MD [address] [place] [address] PCP - General 01/27/10 documented as of this encounter
--- OUTSIDE RECORDS SUMMARY | 2023-10-17 15:13 | XMS_ITS | Encounter Summary ---
Author Organization [facility] [place] [address] Care Team Providers Care Acoustic Engineer Name Role Phone Molina Herr MD Primary Care Provider [phone] Reason for Visit * Auth/Cert Specialty Diagnoses / Procedures Referred By Flo t Referred To Contact Diagnoses Acute appendicitis Acute Appendicitis Procedures LAPAROSCOPIC APPENDECTOMY (WRVU 9.45) Referral ID Status Reason Start Date Expiration Date Visits Re quested Visits Authorized [id number] 1 1 Encounter Details Date Type Department Care Team (Latest Contact Info) Description 03/08/2017 6:26 PM EST - 03/08/2017 7:42 PM EST Hospital [place] [id number] Discharge Disposition: Home Social History Tobacco Use [...] 20 mg by mouth daily. 4 03/08/2014 vxkunudfnufbh-BS-nker (SOURCE CF) 200-10 mcg-mg Chew Take 1 [...] Take 1,000 Units by mouth daily. 07/28/2023 [place]-3 Fatty Acids-Vitamin E (FISH OIL) 1,000 mg [...] AM EDT Office Visit [place] [address] Elly Alston MD [facility] [address] HOSPICE AND [place] [address] 10/27/2023 1:00 PM EDT Office [place] [address] Debra Franco AUDIO VISUAL SPECIALIST 11/03/2023 2:00 PM EDT Office [place] [address] Debra Franco, AUDIO VISUAL SPECIALIST 11/08/2023 2:30 PM EDT Appointment MRI at [place] [address] Navjot Grider MD [facility] [address] HEMATOLOGY [place] [address] 11/09/2023 1:45 PM EDT Office Visit Hematology and Oncology at [address] Isabell Jacob MD [facility] [place] [address] 11/11/2023 10:30 AM EDT Office Visit Radiation Oncology at [place] [address] Nicki Sharpe MD [facility] [place] [address] 11/15/2023 10:00 AM EDT Office Visit Speech Therapy at [place] [phone] Debra Franco, AUDIO VISUAL SPECIALIST 11/16/2023 9:00 AM EDT Office Visit Hematology [place] [address] Bisi Nam 11/22/2023 10:00 AM EDT Office [place] [address] Debra Franco, AUDIO VISUAL SPECIALIST 11/30/2023 9:00 AM EDT Office Visit Hematology [place] [address] Bisi Nam 12/14/2023 9:00 AM EDT Office Visit Hematology [place] [address] Bisi Nam 12/28/2023 9:00 AM EDT Office Visit Hematology [place] [address] Bisi Nam documented as of this encounter Procedures Procedure Name Priority Date/Time Associated Diagnosis Comments _URINALYSIS WITH MICRSOCOPIC Routine 03/08/2017 3:23 PM EST HEMOGRAM Routine 03/08/2017 3:23 PM EST DIFFERENTIAL, AUTOMATED Routine 03/08/2017 3:23 PM EST GOLD TUBE HOLD Routine 03/08/2017 3:23 PM EST LIPASE Routine 03/08/2017 3:23 PM EST AMYLASE Routine 03/08/2017 3:23 PM EST COMPREHENSIVE METABOLIC PANEL Routine 03/08/2017 3:23 PM EST documented in this encounter Results * Gold Tube HOLD (03/08/2017 3:23 PM EST) Gold Hold Sample in lab. [facility] Blood specimen (specimen) No Charge / Unknown 03/08/2017 3:23 PM EST 03/08/2017 6:54 PM EST Sandra Tolentino MD CHEMISTRY ORDERABLES Performing Organization Address City/State/[facility] Co de Phone Number [facility] [place] [address] * (ABNORMAL) _Urinalysis with microscopic (03/08/2017 3:23 PM EST) Glucose, Urine Dipstick Negative Negative mg/dL [facility] Protein, Urine Dipstick Negative Negative mg/dL [facility] Bilirubin, Urine Dipstick Negative Negative mg/dL [facility] Comment: Clinical correlation required for positive Urine Bilirubin results as false positive may occur with some drugs and drug related products. If a false positive is suspected a serum total bilirubin should be considered if clinically indicated. Urobilinogen, Urine Dipstick Normal Normal mg/dL [facility] pH, Urn (dipstick) 5.0 5.0 - 8.0 [facility] Blood, Urine Dipstick Negative Negative mg/dL [facility] Ketone, Urine Dipstick 5(A) Negative mg/dL [facility] Nitrite, Urine Dipstick Negative Negative [facility] Leukocytes, Urine Dipstick Negative Negative [facility] Appearance, Urine Dipstick Hazy(A) Clear [facility] Specific [place] Urine Automated 1.026 1.002 - 1.030 [facility] Color, Urine Dipstick Yellow Yellow [facility] RBC, Urine 1 0 - 3 /HPF [facility] WBC, Urine 1 0 - 3 /HPF [facility] Urine specimen (specimen) Urine / Unknown 03/08/2017 3:23 PM EST 03/08/2017 6:52 PM EST Narrative Resulting Agency Comment Spec In Lab Sandra Tolentino MD URINE ORDERABLES Performing Organization Address [facility] Co de Phone Number [facility] [place] [address] * Lipase (03/08/2017 3:23 PM EST) Lipase 20 0 - 60 unit/L [facility] Blood specimen (specimen) Venous Draw / Unknown 03/08/2017 3:23 PM EST 03/08/2017 6:51 PM EST Narrative Resulting Agency Comment Spec In Lab Sandra Tolentino MD CHEMISTRY ORDERABLES Performing Organization Address [facility] Co de Phone Number [facility] [place] [address] * Amylase (03/08/2017 3:23 PM EST) Amylase 62 28 - 100 unit/L [facility] Blood specimen (specimen) Venous Draw / Unknown 03/08/2017 3:23 PM EST 03/08/2017 6:51 PM EST Narrative Resulting Agency Comment Spec In Lab Sandra Tolentino MD CHEMISTRY ORDERABLES [facility] [place] [address] * Differential, Automated (03/08/2017 3:23 PM EST) Neutrophil % 75.8 % [facility] Neutrophil Absolute 5.93 1.70 - 6.10 x10(3)/[facility] Lymph % 16.0 % [facility] Lymphocytes Abs 1.2 0.9 - 3.2 x10(3)/[facility] Monocyte % 6.3 % [facility] Monocyte Abs 0.5 0.3 - 0.9 x10(3)/[facility] Eos % 1.2 % [facility] Eosinophils Abs 0.1 0.0 - 0.4 x10(3)/[facility] Basophil % 0.3 % [facility] Baso Absolute 0.0 0.0 - 0.1 x10(3)/[facility] Immature Gran % 0.40 % [facility] Comment: Immature granulocytes(IG's)percentage and absolute count will include metamyelocytes, myelocytes, and promyelocytes. Blood smears from CBCs yielding IG's will be scanned manually for concordance. If this scan disagrees with the automated IG or if promyelocytes are noted, a manual differential will be performed. Immature Gran Absolute 0.03 0.00 - 0.04 x10(3)/[facility] Blood specimen (specimen) Venous Draw / Unknown 03/08/2017 3:23 PM EST 03/08/2017 6:52 PM EST Narrative Resulting Agency Comment Spec In Lab Sandra Tolentino MD HEMATOLOGY ORDERABLE S [facility] [place] [address] * Hemogram (03/08/2017 3:23 PM EST) [facility] White Blood Cell 7.8 4.0 - 9.5 x10(3)/[facility] Red Blood Cell 4.92 4.58 - 5.54 x10(6)/[facility] Hemoglobin 14.2 13.7 - 16.5 gm/dL [facility] Hematocrit 43.1 40.5 - 48.5 % [facility] Mean Cell Volume 87.6 82.9 - 93.1 [facility] Mean Cell Hemoglobin 28.9 27.5 - 32.1 pg [facility] Mean Cell Hemoglobin Concentration 32.9 32.0 - 35.7 gm/dL [facility] Platelet 254 145 - 357 x10(3)/[facility] RDW Standard Deviation 42.5 36.0 - 45.0 [facility] RDW coefficient of variation 13.3 11.4 - 13.8 % [facility] Mean Platelet Volume 10.0 7.6 - 12.9 [facility] NRBC% auto 0.0 % [facility] NRBC Absolute 0.000 0.000 - 0.000 x10(3)/[facility] Blood specimen (specimen) Venous Draw / Unknown 03/08/2017 3:23 PM EST 03/08/2017 6:52 PM EST Narrative Resulting Agency Comment Spec In Lab Sandra Tolentino MD HEMATOLOGY ORDERABLE S [facility] [place] [address] * (ABNORMAL) Comprehensive metabolic panel (non-fasting) (03/08/2017 3:23 PM EST) [facility] Glucose 93 65 - 199 mg/dL [facility] Comment:Diabetes: >=200 mg/d L plus symptoms Blood Urea Nitrogen 22(H) 10 - 20 mg/dL [facility] Creatinine 1.05 0.80 - 1.50 mg/dL [facility] Sodium 140 135 - 145 mmol/L [facility] Potassium 3.9 3.5 - 5.0 mmol/L [facility] Comment: Please note: ??Patients with WBC >100,000 may have falsely elevated Potassium levels. ??For accurate Potassium quantification in these patients send serum separator tube (gold top) for subsequent determinations. ??Contact the Clinical Chemistry Laboratory if there are any questions. Chloride 100 98 - 107 mmol/L [facility] Carbon Dioxide 25 22 - 31 mmol/L [facility] Anion Gap 15 5 - 15 mmol/L [facility] Calcium 9.4 8.5 - 10.5 mg/dL [facility] Protein, Total 7.6 6.1 - 8.0 gm/dL [facility] Albumin 4.0 3.2 - 5.2 gm/dL [facility] Aspartate Aminotransferase 15 0 - 39 unit/L [facility] Alanine Aminotransferase 9 0 - 55 unit/L [facility] Alkaline Phosphatase 58 40 - 120 unit/L [facility] Bilirubin, Total 0.6 0.2 - 1.3 mg/dL [facility] Est Glomerular Filtration Rate >60 >=60 [facility] Comment: The reported eGFR should be multiplied by 1.2 for patients. The MDRD is not an appropriate measure of renal function for patients with body mass extremes or in patients with acute kidney failure. [email or web address] Blood specimen (specimen) Venous Draw / Unknown 03/08/2017 3:23 PM EST 03/08/2017 6:51 PM EST Narrative Resulting Agency Comment Spec In Lab Sandra Tolentino MD CHEMISTRY ORDERABLES [facility] [place] [address] documented in this encounter Visit Diagnoses Not on filedocumented in this encounter Care Teams Acoustic Engineer Relationship Specialty Start Date End Date Molina Herr MD [address] [place] [id number] PCP - General 01/27/10 documented as of this encounter
--- OUTSIDE RECORDS SUMMARY | 2023-10-17 15:13 | XMS_ITS | Encounter Summary ---
Author Organization [facility] [place] [address] Care Team Providers Care Guest Room Inspector Name Role Phone Molina Herr MD Primary Care Provider [phone] Encounter Details Date Type Department Care Team (Latest Contact Info) Description 12/08/2016 10:27 AM EDT - 12/08/2016 11:59 PM EDT [place] [address] Discharge Disposition: Home Social History [...] 20 mg by mouth daily. 4 03/08/2014 [id number] (SOURCE CF) 200-10 mcg-mg Chew Take 1 [...] Take 1,000 Units by mouth daily. 07/28/2023 [place]-3 Fatty Acids-Vitamin E (FISH OIL) 1,000 mg [...] AM EDT Office [place] [address] Elly Alston MD [facility] HOSPICE [place] [address] 10/27/2023 1:00 PM EDT Office [place] [address] Debra Franco, BIOLOGIST AIDE 11/03/2023 2:00 PM EDT Office [place] [address] Debra Franco, BIOLOGIST AIDE 11/08/2023 2:30 PM [place] [phone] Navjot Grider MD [facility] [place] [address] 11/09/2023 1:45 PM EDT Office Visit Hematology [place] [address] Isabell Jacob MD [facility] DR NEUROLOGY [place] [id number] 11/11/2023 10:30 AM EDT Office [place] [address] Nicki Sharpe MD [facility] [place] [address] 11/15/2023 10:00 AM EDT Office [place] [address] Debra Franco, BIOLOGIST AIDE 11/16/2023 9:00 AM EDT Office Visit Hematology [place] [address] Bisi Nam 11/22/2023 10:00 AM EDT Office [place] [address] Debra Franco, BIOLOGIST AIDE 11/30/2023 9:00 AM EDT Office Visit Hematology [place] [address] Bisi Nam 12/14/2023 9:00 AM EDT Office Visit Hematology [place] [address] Bisi Nam 12/28/2023 9:00 AM EDT Office Visit Hematology [place] [address] Bisi Nam documented as of this encounter Procedures Procedure Name Priority Date/Time Associated Diagnosis Comments HEMOGRAM Routine 12/08/2016 8:14 AM EDT DIFFERENTIAL, AUTOMATED Routine 12/08/2016 8:14 AM EDT GOLD TUBE HOLD Routine 12/08/2016 8:14 AM EDT TSH Routine 12/08/2016 8:14 AM EDT T4, FREE Routine 12/08/2016 8:14 AM EDT LDL CHOLESTEROL, DIRECT Routine 12/08/2016 8:14 AM EDT HDL/CHOL PROFILE Routine 12/08/2016 8:14 AM EDT HEMOGLOBIN A1C Routine 12/08/2016 8:14 AM EDT COMPREHENSIVE METABOLIC PANEL Routine 12/08/2016 8:14 AM EDT documented in this encounter Results * Gold Tube HOLD (12/08/2016 8:14 AM EDT) Gold Hold Sample in lab. [facility] Blood specimen (specimen) Venous Draw / Unknown 12/08/2016 8:14 AM EDT 12/08/2016 11:11 AM EDT Molina Herr MD CHEMISTRY ORDERABLES Performing Organization Address City/State/[facility] Co de Phone Number [facility] [place] [address] * Hemoglobin A1c (12/08/2016 8:14 AM EDT) Hemoglobin A1c 5.5 4.3 - 5.6 % [facility] Comment: Reference Range: 4.3 - [...] Mellitus, Diabetes Care 2013; 36: Suppl. 1, S61-42 Estimated Average Glucose See note mg/dL [facility] Comment: Estimated Average Glucose not [...] into estimated average glucose values. ??Diabetes Care 2008:31(8):5189-3149. Blood specimen (specimen) Venous Draw / Unknown 12/08/2016 8:14 AM EDT 12/08/2016 11:10 AM EDT Narrative Resulting Agency Comment Spec In Lab Molina Herr MD CHEMISTRY ORDERABLES [facility] [place] [address] * Differential, Automated (12/08/2016 8:14 AM EDT) Neutrophil % 57.9 % [facility] Neutrophil Absolute 2.99 1.70 - 6.10 x10(3)/[facility] Lymph % 28.5 % [facility] Lymphocytes Abs 1.5 0.9 - 3.2 x10(3)/[facility] Monocyte % 8.9 % [facility] Monocyte Abs 0.5 0.3 - 0.9 x10(3)/[facility] Eos % 3.5 % [facility] Eosinophils Abs 0.2 0.0 - 0.4 x10(3)/[facility] Basophil % 0.8 % [facility] Baso Absolute 0.0 0.0 - 0.1 x10(3)/[facility] Immature Gran % 0.40 % [facility] Comment: Immature granulocytes(IG's)percentage and absolute count will include metamyelocytes, myelocytes, and promyelocytes. Blood smears from CBCs yielding IG's will be scanned manually for concordance. If this scan disagrees with the automated IG or if promyelocytes are noted, a manual differential will be performed. Immature Gran Absolute 0.02 0.00 - 0.04 x10(3)/[facility] Blood specimen (specimen) Venous Draw / Unknown 12/08/2016 8:14 AM EDT 12/08/2016 11:01 AM EDT Narrative Resulting Agency Comment Spec In Lab Molina Herr MD HEMATOLOGY ORDERABLE S Performing Organization Address City/[facility]/ZIP Co de Phone Number [facility] [place] [address] * TSH (12/08/2016 8:14 AM EDT) Thyroid Stimulating Hormone 2.99 0.27 - 4.20 mlU/ML [facility] Blood specimen (specimen) Venous Draw / Unknown 12/08/2016 8:14 AM EDT 12/08/2016 10:50 AM EDT Narrative Resulting Agency Comment Spec In Lab Molina Herr MD CHEMISTRY ORDERABLES Performing Organization Address City/[facility]/ZIP Co de Phone Number [facility] [place] [address] * T4, free (12/08/2016 8:14 AM EDT) Free T4 1.22 0.93 - 1.70 ng/dL [facility] Blood specimen (specimen) Venous Draw / Unknown 12/08/2016 8:14 AM EDT 12/08/2016 10:50 AM EDT Narrative Resulting Agency Comment Spec In Lab Molina Herr MD CHEMISTRY ORDERABLES Performing Organization Address City/State/[facility] Co de Phone Number [facility] [place] [address] * Hemogram (12/08/2016 8:14 AM EDT) [facility] White Blood Cell 5.2 4.0 - 9.5 x10(3)/[facility] Red Blood Cell 4.96 4.58 - 5.54 x10(6)/[facility] Hemoglobin 14.1 13.7 - 16.5 gm/dL [facility] Hematocrit 43.5 40.5 - 48.5 % [facility] Mean Cell Volume 87.7 82.9 - 93.1 [facility] Mean Cell Hemoglobin 28.4 27.5 - 32.1 pg [facility] Mean Cell Hemoglobin Concentration 32.4 32.0 - 35.7 gm/dL [facility] Platelet 284 145 - 357 x10(3)/[facility] RDW Standard Deviation 43.6 36.0 - 45.0 [facility] RDW coefficient of variation 13.5 11.4 - 13.8 % [facility] Mean Platelet Volume 9.7 7.6 - 12.9 [facility] NRBC% auto 0.0 % [facility] NRBC Absolute 0.000 0.000 - 0.000 x10(3)/[facility] Blood specimen (specimen) Venous Draw / Unknown 12/08/2016 8:14 AM EDT 12/08/2016 11:01 AM EDT Narrative Resulting Agency Comment Spec In Lab Molina Herr MD HEMATOLOGY ORDERABLE S [facility] [place] [address] * HDL/Cholesterol Profile (12/08/2016 8:14 AM EDT) Cholesterol, Total 170 <=239 mg/dL [facility] HDL Cholesterol 56 >=40 mg/dL [facility] Cholesterol/HDL Ratio 3.0 ratio [facility] Chol/HDL Interpretation See Note [facility] Comment: Lipid management should be guided by a patient? s ASCVD risk, goals and preferences. ACC/AHA Guidelines recommend high intensity statin if clinical ASCVD or LDL greater than or equal to 190 mg/dL. [email or web address]-WNI-[email or web address] Measure LDL if Total Cholesterol minus HDL Cholesterol is greater than 220 mg/dL. Adults aged 40-75 with LDL 70-189 mg/dL should have their 10 year ASCVD risk estimated with the ACC/AHA ASCVD risk estimator binding http://tools.acc.org/KWDPQ-Cxdw-Xsbbwnjmq/ Statin should be discussed if risk greater than or equal to 7.5% in non-diabetics. With diabetes, moderate intensity statin is recommended if risk less than 7.5%, high intensity if risk greater than or equal to 7.5%. Annual lipid monitoring on statins is not necessary. Lifestyle modification is a critical component of ASCVD risk reduction. Blood specimen (specimen) Venous Draw / Unknown 12/08/2016 8:14 AM EDT 12/08/2016 10:50 AM EDT Narrative Resulting Agency Comment Spec In Lab Molina Herr MD CHEMISTRY ORDERABLES [facility] [place] [address] * LDL Cholesterol, Direct (12/08/2016 8:14 AM EDT) LDL Cholesterol, Direct 105 <=190 mg/dL [facility] Blood specimen (specimen) Venous Draw / Unknown 12/08/2016 8:14 AM EDT 12/08/2016 10:50 AM EDT Narrative Resulting Agency Comment Spec In Lab Molina Herr MD CHEMISTRY ORDERABLES [facility] [place] [address] * (ABNORMAL) Comprehensive metabolic panel (non-fasting) (12/08/2016 8:14 AM EDT) Glucose 102 65 - 199 mg/dL [facility] Comment:Diabetes: >=200 mg/d L plus symptoms Blood Urea Nitrogen 24(H) 10 - 20 mg/dL [facility] Creatinine 1.42 0.80 - 1.50 mg/dL [facility] Comment: Please note that the pediatric reference intervals supplied above were not validated at [facility]. Results from pediatric patients should be interpreted in conjunction to the patient's age, height and muscle mass. Sodium 141 135 - 145 mmol/L [facility] Potassium 4.2 3.5 - 5.0 mmol/L [facility] Comment: Please note: ??Patients with WBC >100,000 may have falsely elevated Potassium levels. ??For accurate Potassium quantification in these patients send serum separator tube (gold top) for subsequent determinations. ??Contact the Clinical Chemistry Laboratory if there are any questions. Chloride 101 98 - 107 mmol/L [facility] Carbon Dioxide 26 22 - 31 mmol/L [facility] Anion Gap 14 5 - 15 mmol/L [facility] Calcium 9.5 8.5 - 10.5 mg/dL [facility] Protein, Total 7.2 6.1 - 8.0 gm/dL [facility] Albumin 4.2 3.2 - 5.2 gm/dL [facility] Aspartate Aminotransferase 16 0 - 39 unit/L [facility] Alanine Aminotransferase 11 0 - 55 unit/L [facility] Alkaline Phosphatase 56 40 - 120 unit/L [facility] Bilirubin, Total 0.3 0.2 - 1.3 mg/dL [facility] Est Glomerular Filtration Rate 49(L) >=60 [facility] Comment: This estimated GFR (eGFR) value [...] the following links into your internet browser. [email or web address] [email or web address] Blood specimen (specimen) Venous Draw / Unknown 12/08/2016 8:14 AM EDT 12/08/2016 10:50 AM EDT Narrative Resulting Agency Comment Spec In Lab Molina Herr MD CHEMISTRY ORDERABLES Performing Organization Address City/State/[facility] Co de Phone Number [facility] [place] [address] documented in this encounter Visit Diagnoses Not on filedocumented in this encounter Care Teams Guest Room Inspector Relationship Specialty Start Date End Date Molina Herr MD [place] [address] [place] [address] PCP - General 01/27/10 documented as of this encounter
--- OUTSIDE RECORDS SUMMARY | 2023-10-17 15:13 | XMS_ITS | Encounter Summary ---
[place] [address] Care Team Providers Care Metal Mold Dresser Name Role Phone Molina Herr MD Primary Care Provider [phone] Encounter Details Date Type Department Care Team (Late st Contact Info) Description 12/30/2016 Notes Only Audiology at [address] [address] Breanna Ramirez Social History Tobacco Use Types Packs/Day Years [...] as of this encounter Progress Notes * Breanna Ramirez - 12/30/2016 3:38 PM EDT AUDIOLOGY SECTION AMPLIFICATION REPAIR NOTE REPAIR WORK HEARING AID (right, left or both) Left SERIAL NUMBER CHANGED? Yes, [id number] WARRANTY CHANGED? Same date, service warranty only REPAIR WORK PERFORMED? (repair company/invoice number) Loss Replacement ([employer]/[id number]/12/16/16) CHARGE TO PATIENT? Yes S-REM VERIFICATION PERFORMED? Yes, SREM RE-PROGRAMMED? ([facility] session date) Yes, 11/26/16 PROGRAMS AND V/C STATUS CHANGED? VC (was already enabled) PHYSICAL AND ACOUSTIC INSPECTION PERFORMED? Yes DELIVERY (patient pick-up, patient seen, aid mailed or handed off) Patient clam picker [facility] LOANER OUT? No OTHER HEARING AID(S): HEARING AID RIGHT LEFT Make/Model/Style Oticon Opn 3 miniRITE Oticon Opn 3 miniRITE Casing Color 92 (ann) 92 (ann) Serial Number [id number] (new-replacement) [id number] (old) Battery Size 312 312 Invoice number / date [id number] 10/27/16 [id number] 10/27/16 PROGRAM/SETTINGS ? Fitting Algorithm DSL 5a [...] ? Warranty date ? Invoice number/date ? This case was discussed with the Audiology Doctoral Gymnastics Instructor at the time of the visit or immediately afterwards, and I concur with the findings.?? Bonnie Hylton, [facility] [place], [place] [id number] documented in this encounter Plan of Treatment Upcoming Encounters Date Type Department Care Team (Late st Contact Info) Description 10/27/2023 11:15 AM EDT Office [place] [address] Elly Alston MD [facility] DR HOSPICE [place] [address] 10/27/2023 1:00 PM EDT Office Visit Speech Therapy at [place] [address] Debra Franco, URBAN RENEWAL MANAGER 11/03/2023 2:00 PM EDT Office Visit Speech Therapy at [place] [phone] Debra Franco, URBAN RENEWAL MANAGER 11/08/2023 2:30 PM EDT Appointment MRI at [address] Navjot Grider MD [facility] DR [place] [address] 11/09/2023 1:45 PM EDT Office Visit Hematology and Oncology at [place] [address] Isabell Jacob MD [facility] [place] [address] 11/11/2023 10:30 AM EDT Office Visit Radiation Oncology at [place] [address] Nicki Sharpe MD [facility] [place] [address] 11/15/2023 10:00 AM EDT Office Visit Speech Therapy at [place] [phone] Debra Franco, URBAN RENEWAL MANAGER 11/16/2023 9:00 AM EDT Office Visit Hematology and Oncology at [place] [phone] Bisi Nam 11/22/2023 10:00 AM EDT Office [place] [address] Debra Franco SLP 11/30/2023 9:00 AM EDT Office Visit Hematology [place] [address] Bisi Nam 12/14/2023 9:00 AM EDT Office Visit Hematology [place] [address] Bisi Nam 12/28/2023 9:00 AM EDT Office Visit Hematology [place] [address] Bisi Nam documented as of this encounter Visit Diagnoses Not on filedocumented in this encounter Care Teams Metal Mold Dresser Relationship Specialty Start Date End Date Molina Herr MD [place] [address] [place] [address] PCP - General 01/27/10 documented as of this encounter
--- OUTSIDE RECORDS SUMMARY | 2023-10-17 15:13 | XMS_ITS | Encounter Summary ---
[place] [address] Care Team Providers Care Area Safety Manager Name Role Phone Molina Herr MD Primary Care Provider [phone] Reason for Visit * Audiology Exam (Routine) - Denied Specialty Diagnoses / Procedures Referred By Contac t Referred To Contact Audiology Diagnoses Sensorineural hearing loss, bilateral Procedures HEARING AID FITTING Molina Herr MD [address] [place] [address] [facility] [address] [place] [phone] Referral ID Status Reason Start Date Expiration Date Visits Re quested Visits Authorized [id number] Denied 10/14/2016 10/14/2017 1 0 Encounter Details Date Type Department Care Team (Latest Contact Info) Description 11/11/2016 12:45 PM EDT Office Visit Audiology at [address] [address] Laisha Granados AUD [facility] [address] Bilateral sensorineural hearing loss Social History Tobacco [...] Progress Notes * Laisha Granados AUD - 11/11/2016 12:45 PM EDT AUDIOLOGY SECTION HEARING AID FITTING REPORT Perfecto Polk, 76 y.o., returns today for fitting of binaural BTE hearing aids. Actions Taken: ??? Hearing aids dispensed and programmed. Verification of hearing aid fit was completed via swll-clm-ckrgvovw (REM) and bgzn-ppr-rvkddby-difference (RECD). Hearing aid programming was adjusted to maximize audibility for soft and conversational speech without exceeding maximum power output targets. ??? A hearing aid orientation was carried out to include use, care and maintenance instructions. Realistic expectations and ajustment period reviewed. The scenic designer's manual was provided, and the warranty/ return policy discussed. ?? Paired his phone and downloaded the adriana. Plan: Follow-up visit in 2-3 weeks. HEARING AID(S): HEARING AID RIGHT LEFT Make/Model/Style Oticon Opn 3 miniRITE- R Oticon Opn 3 miniRITE- R Casing Color 92 (ann) 92 (ann) Serial Number [id number] Battery Size 312 312 Invoice number / date [id number] 10/27/16 [id number] 10/27/16 PROGRAM/SETTINGS Fitting Algorithm DSL 5a DSL [...] AM EDT Office Visit Palliative Medicine at [place] [address] Elly Alston MD [facility] DR HOSPICE AND [place] [address] 10/27/2023 1:00 PM EDT Office Visit Speech Therapy at [place] [address] Debra Franco, BRANCH LOGISTICS SUPERVISOR 11/03/2023 2:00 PM EDT Office Visit Speech Therapy at [place] [address] Debra Franco, BRANCH LOGISTICS SUPERVISOR 11/08/2023 2:30 PM EDT Appointment MRI at [place] [address] Navjot Grider MD [facility] DR HEMATOLOGY [place] [address] 11/09/2023 1:45 PM EDT Office Visit Hematology and Oncology at [place] [address] Isabell Jacob MD [facility] [place] [address] 11/11/2023 10:30 AM EDT Office Visit Radiation Oncology at [place] [address] Nicki Sharpe MD [facility] [place] [address] 11/15/2023 10:00 AM EDT Office Visit Speech Therapy at [place] [address] Debra Franco, BRANCH LOGISTICS SUPERVISOR 11/16/2023 9:00 AM EDT Office Visit Hematology [place] [address] Bisi Nam 11/22/2023 10:00 AM EDT Office [place] [address] Debra Franco SLP 11/30/2023 9:00 AM EDT Office Visit Hematology [place] [address] Bisi Nam 12/14/2023 9:00 AM EDT Office Visit Hematology [place] [address] Bisi Nam 12/28/2023 9:00 AM EDT Office Visit Hematology [place] [address] Bisi Nam documented as of this encounter Visit Diagnoses Diagnosis Bilateral sensorineural hearing loss Sensorineural hearing loss, bilateral documented in this encounter Care Teams Area Safety Manager Relationship Specialty Start Date End Date Molina Herr MD [address] [address] [place] [address] PCP - General 01/27/10 documented as of this encounter
--- OUTSIDE RECORDS SUMMARY | 2023-10-17 15:13 | XMS_ITS | Encounter Summary ---
Author Organization [facility] [place] [address] Care Team Providers Care Christian Science Healer Name Role Phone Molina Herr MD Primary Care Provider [phone] Reason for Visit * Reason Comments Abdominal Pain * Auth/Cert Specialty Diagnoses / Procedures Referred By Contac t Referred To Contact Diagnoses Acute appendicitis Acute Appendicitis Procedures LAPAROSCOPIC APPENDECTOMY (WRVU 9.45) Referral ID Status Reason Start Date Expiration Date Visits Re quested Visits Authorized [id number] 1 1 Encounter Details Date Type Department Care Team (Late st Contact Info) Description 03/09/2017 7:30 AM EST - 03/09/2017 9:49 AM EST Surgery [place] [address] Chelle Chen MD [facility] [place] [address] LAPAROSCOPIC APPENDECTOMY (WRVU 9.45) Social History Tobacco Use Types Packs/Day Years [...] Sign Reading Time Taken Comments Blood Pressure 125/67 03/09/2017 9:45 AM EST Pulse 63 03/09/2017 9:45 AM EST Temperature 36.7 ??C (98.1 ??F) 03/09/2017 9:45 AM ES T Respiratory Rate 9 03/09/2017 9:45 AM EST Oxygen Saturation 96% 03/09/2017 9:45 AM EST Inhaled Oxygen Concentration - - Weight [...] Once daily Generic drug: atorvastatin Refills: 0 qzhzffsdvsfom-AC-eqyq 200-10 mcg-mg Chew Commonly known as: SOURCE [...] Kenya Sim APRN [facility] Outpatient Services/Studies: No discharge procedures on file. Instructions Given to Patient at Discharge:. An After Visit Summary was printed and given to the patient. There are no outpatient Patient Instructions on file for this admission. General Instructions [facility] Department of General Surgery Discharge Instructions [...] with the Surgery nurses. The number is [phone]. - During the night or weekends call the [facility] tumble tailstock turret lathe operator at [phone] and ask to speak to the surgery resident brand activation manager for general surgery. Please note: Your surgeon may not be Word Processor Operator, especially during the night or on weekends, so be ready to describe yourself and your surgery when you call. Follow up appointments: Future Appointments Date Time Provider Department Center 03/28/2017 9:30 AM Kenya Sim APRN [facility] [x] Follow-up appointment with General Surgery has already been scheduled [] A request for a follow-up appointment has been made and you should receive information via phone/mail in the next week. If you do not hear anything, please call the clinic at [phone] to confirm or reschedule. If you need a prior authorization, please call the General Surgery Clinic nurses [phone] for prior authorizations assistance Follow-up Recommendations for Providers: Medication changes-None Diet changes-None CC: Molina Herr MD Signed: Xu Donaldson MD General Surgery Team Pager #[phone] 03/09/2017 1:46 PM documented in this encounter Discharge Instructions * Discharge Instructions* Xu Donaldson MD - 03/09/2017 1:46 PM EST [facility] Department of General Surgery Discharge Instructions [...] day, it is best to call the 4 General Surgery Clinic to speak with the Surgery nurses. The number is [phone]. - During the night or weekends call the [facility] tumble tailstock turret lathe operator at [phone] and ask to speak to the surgery resident brand activation manager for general surgery. Please note: Your surgeon may not be Word Processor Operator, especially during the night or on weekends, so be ready to describe yourself and your surgery when you call. Follow up appointments: Future Appointments Date Time Provider Department Center 03/28/2017 9:30 AM Kenya Sim, KERRI [facility] [x] Follow-up appointment with General Surgery has already been scheduled [] A request for a follow-up appointment has been made and you should receive information via phone/mail in the next week. If you do not hear anything, please call the clinic at [phone] to confirm or reschedule. If you need a prior authorization, please call the General Surgery Clinic nurses [phone] for prior authorizations assistance documented in this encounter Medications at Time of Discharge Medication Sig Dispensed Refills Start Date End Date omeprazole (PRILOSEC) 20 mg Capsule, Delayed Release(E.C.) Take 20 mg by mouth daily. 4 03/08/2014 slbaseewchmiu-WZ-vomm (SOURCE CF) 200-10 mcg-mg Chew Take 1 [...] Take 1,000 Units by mouth daily. 07/28/2023 [place]-3 Fatty Acids-Vitamin E (FISH OIL) 1,000 mg [...] Stringer MD Patient cleared for discharge by MD's. D/C teaching completed with pt and . [...] BX performed by Dominick Earl MD at [facility] ENDOSCOPY testicular biopsy Knee arthroscopy MEDICATIONS: [...] Take 1,000 Units by mouth daily. ??? [place]-3 Fatty Acids-Vitamin E (FISH OIL) 1,000 mg Capsule Take 2,000 mg by mouth daily. ??? omeprazole (PRILOSEC) 10 mg capsule Take 10 mg by mouth daily. ??? twrxkskqnoucw-OY-dlqx (SOURCE CF) 200-10 mcg-mg Chew Take 1 [...] mcL Appearance UA Hazy (A) Clear Spec [place] UA 1.026 1.002 - 1.030 Color UA [...] Barreto MD PGY-2 03/08/2017 General Surgery p. [phone] Attending Addendum I have seen and examined [...] documented in this encounter ED Notes * Justino Ferreira DO - 03/08/2017 8:30 PM EST CC: appendicitis [...] mcL Appearance UA Hazy (A) Clear Spec [place] UA 1.026 1.002 - 1.030 Color UA [...] with the arrington findings and plan. * Narendra Santos - 03/08/2017 8:16 PM EST Surgery team into consult with patient. Patient resting comfortably documented in this encounter Miscellaneous Notes * Op Note - Chelle Chen MD - 03/09/2017 9:03 AM EST [facility] Operative Note Patient Name: Perfecto Polk : [id number] MR#: [id number] Case Date: 03/09/2017 Surgeon: Surgeon(s) and Role: [...] Operative Note Patient Name: Perfecto Polk : [id number] MR#: [id number] Case Date: 03/09/2017 Surgeon: Surgeon(s) and Role: * Chelle Chen MD - Primary * Molina Mares MD * CHRIS Elias MD Preoperative diagnosis: Acute Appendicitis Postoperative diagnosis: Acute Appendicitis Procedure(s) (LRB): LAPAROSCOPIC APPENDECTOMY (WRVU 9.45) (N/A) Anesthesia: General Findings: - inflammed [...] Conf Outcome: Ongoing (Interventions Implemented as Appropriate) 01/03/18 0123 Interdisciplinary Rounds/Family Conf Participants nursing;family;patient Problem: Appendicitis/Appendectomy (Adult) Goal: Signs and Symptoms of Listed Potential Problems Will be Absent, Minimized or Managed (Appendicitis/Appendectomy) Signs and symptoms of listed potential problems will be absent, minimized or managed by discharge/transition of care (reference Appendicitis/Appendectomy (Adult) CPG). Outcome: Ongoing (Interventions Implemented as Appropriate) 03/09/17 0123 Appendicitis/Appendectomy Problems Assessed (Appendicitis/Appendectomy) all Problems Present (Appendicitis/Appendectomy) pain documented in this encounter Plan of Treatment Upcoming Encounters Date Type Department Care Team (Late st Contact Info) Description 10/27/2023 11:15 AM EDT Office Visit Palliative Medicine at [place] [address] Elly Alston MD [facility] HOSPICE AND [place] [address] 10/27/2023 1:00 PM EDT Office Visit Speech Therapy at [place] [address] Debra Franco, NIBBLER OPERATOR 11/03/2023 2:00 PM EDT Office Visit Speech Therapy at [place] [address] Debra Franco, NIBBLER OPERATOR 11/08/2023 2:30 PM EDT Appointment MRI at [place] [address] Navjot Grider MD [facility] HEMATOLOGY [place] [address] 11/09/2023 1:45 PM EDT Office Visit Hematology and Oncology at [place] [address] Isabell Jacob MD [facility] [place] [place] [address] 11/11/2023 10:30 AM EDT Office Visit [place] [address] Nicki Sharpe MD [facility] [place] [address] 11/15/2023 10:00 AM EDT Office [place] [address] Debra Franco, NIBBLER OPERATOR 11/16/2023 9:00 AM EDT Office Visit Hematology [place] [address] Bisi Nam 11/22/2023 10:00 AM EDT Office [place] [address] Debra Franco, NIBBLER OPERATOR 11/30/2023 9:00 AM EDT Office Visit Hematology [place] [address] Bisi Nam 12/14/2023 9:00 AM EDT Office Visit Hematology [place] [address] Bisi Nam 12/28/2023 9:00 AM EDT Office Visit Hematology [place] [address] Bisi Nam documented as of this encounter Procedures Procedure Name Priority Date/Time Associated Diagnosis Comments SURGICAL PATHOLOGY REPORT Routine 03/09/2017 8:37 AM EST SPECIMEN TO PATHOLOGY Routine 03/09/2017 8:37 AM EST LAPAROSCOPIC APPENDECTOMY (WRVU 9.45) 03/09/2017 7:34 AM EST Acute Appendicitis TOOL POLISHING MACHINE OPERATOR SCAN 03/09/2017 12:00 AM EST LAPAROSCOPIC APPENDECTOMY Routine 03/08/2017 8:31 PM EST documented in this encounter Results * Surgical Pathology Report (03/09/2017 8:37 AM EST) Final Diagnosis [id number] ? Location: [facility]; [facility]; A The signing pathologist has (i) examined the relevant preparation(s) for the specimen(s) and (ii) rendered or confirmed the diagnosis(es). . ?Surgical Pathology DIAGNOSIS Appendix: - ??Acute appendicitis and periappendicitis. - Appendical diverticulum. Electronically signed by: ??Ruben Goncalves MD Verified: ??03/14/2017 ?Pathologist Performed at: ??-[facility] Dept. of Pathology, [place], [place] CLINICAL INFORMATION Specimen Submitted: A - [...] containing soft red-brown fecal matter. Sections/Processi ng: Market News Reporter sections from proximal to distal are submitted. (R4) ??shb 03/14/2017 9:01 PM EST [facility] APPENDIX STRUCTURE / Unknown 03/09/2017 8:37 AM EST 03/09/2017 8:37 AM EST Chelle Chen MD PATHOLOGY/CYTOLOGY ORDERABLES [place] [address] * Specimen to Pathology (surgical or derm) (03/09/2017 8:37 AM EST) AP Specimen 03/09/2017 8:37 AM EST 03/09/2017 8:37 AM EST Narrative [facility] - 03/09/2017 8:37 AM EST Specimen requisition ordered. ??Separate Pathology report to follow William Stringer MD PATHOLOGY/CYTOLOGY O [facility] [place] [address] * SCAN DOC: TOOL POLISHING MACHINE OPERATOR (03/09/2017 12:00 AM EST) Anatomical Region Laterality Modality Other Narrative 03/09/2017 12:00 AM EST Ordered by an unspecified provider. Scanning Provider MEDIA MGR SCAN EXT O RDR/RSLT documented in this encounter Visit Diagnoses Not on filedocumented in this encounter Admitting Diagnoses Diagnosis Acute [...] Given 03/08/2017 11:14 PM EST 650 mg BUpivacaine (PF) (MARCAINE) 0.25 % (2.5 mg/mL) injection ONCE PRN, Starting on Tue03/09/17 at 0858, Until Tue03/09/17 at 1734, Intra-Operative (Intra-Procedure), Routine Given 03/09/2017 8:58 AM EST 18 mLs 19- Surgical Site ciprofloxacin (CIPRO) 200mg in dextrose 5% 100mL 200 mg, Intravenous, ONCE, 1 dose, On Tue03/09/17 at 0000, Administer over 60 Minutes, Indication for (Active or Suspected): GI/Intra-abdominal, Restricted Antibiotic: Please indicate the most appropriate choice: Ordered from Emergency Department New Bag 03/09/2017 1:15 AM EST 200 mg 100 mL/hr enoxaparin (LOVENOX) injection 40 mg 40 mg, Subcutaneous, NIGHTLY, First dose on Tue03/09/17 at 0000, Until Discontinued, Routine Given 03/08/2017 11:20 PM EST 40 mg HYDROmorphone (DILAUDID) 2 mg/mL injection 1 dose, Starting on Tue03/09/17 at 0930, Until Tue03/09/17 at 0931, MARILYNN HARRIS: john overrovi HYDROmorphone (DILAUDID) injection 0.2-0.4 mg 0.2-0.4 mg, [...] 0506 (Given - Provider: Debi Weeks RN)0704 (MAY Hold - Provider: Admin Adt - Reason: Transfer to a Procedural area)1022 (MAY Unhold - Provider: Rolly Edge RN)1132 (Given - Provider: Rolly Edge RN) atorvastatin (LIPITOR) tablet 10 mg 10 mg, Oral, EVERY EVENING, First dose on Tue03/09/17 at 1700, Until Discontinued, Routine 0704 (MAY Hold - Provider: Admin Adt [...] area)0759 (Given - Provider: Ernie Rock CRNA)1022 ([facility] Unhold - Provider: Admin Adt) enoxaparin (LOVENOX) injection 40 mg (CANCELED) 40 mg, Subcutaneous, NIGHTLY, First dose on Tue03/09/17 at 0000, Until Discontinued, Routine 2320 (Given - Provider: Debi Weeks RN) 0704 ([facility] Hold - Provider: Admin Adt - Reason: Transfer to a Procedural area)1022 ([facility] Unhold - Provider: Admin Adt) levothyroxine (SYNTHROID) tablet 25 mcg 25 mcg, Oral, EVERY MORNING, First dose on Tue03/09/17 at 0600, Until Discontinued, Routine 0506 (Given - Provid er: Debi Weeks RN)0704 ([facility] Hold - Provider: Admin Adt - Reason: Transfer to a Procedural area)1022 ([facility] Unhold - Provider: Rolly Edge, OSCAR) metroNIDAZOLE (FLAGYL) 500 mg in sodium chloride 0.9% 100 mL (CANCELED) 500 mg, Intravenous, EVERY 8 HOURS, First dose on Tue03/09/17 at 0630, Until Discontinued, Administer over 30 Minutes, Indication for (Active or Suspected): Prophylaxis 0613 (New Bag - Provider: Debi Weeks RN)0643 (Stopped - Provider: Rolly Edge, OSCAR)0704 (MAY Hold - Provider: Admin Adt - Reason: Transfer to a Procedural area)0814 (Given - Provider: Ernie Rock CRNA)1022 (MAR Unhold - Provider: Admin Adt) oxyCODONE (ROXICODONE) [...] area)0800 (Automatically Held - Provider: Admin Adt)0925 (MAR Unhold - Provider: Marilynn Harris, OSCAR)1011 (Given - Provider: Marilynn Harris, OSCAR) pantoprazole (PROTONIX) injection 40 mg 40 mg, Intravenous, DAILY, First dose on Tue03/09/17 at 0900, Until Discontinued 0704 (MAR Hold - Provider: Admin Adt - Reason: Transfer to a Procedural area)0900 (Automatically Held - Provider: Admin Adt)1022 ([facility] Unhold - Provider: Rolly Edge RN) sodium [...] at 2010 2013 (New Bag - Provider: Narendra Santos) Continuous Medication Order 03/07/2017 03/08/2017 03/09/2017 sodium chloride 0.9% infusion (CANCELED) 1,000 mL, at 100 mL/hr, Intravenous, CONTINUOUS, Starting on Tue03/09/17 at 0000, Until Tue03/09/17 at 1110, Recovery (Recovery-Hospital Unit) 2315 (New Bag - Provider: Debi Weeks RN) 0118 (New Bag - Provider: Debi Weeks, RN)1110 (Stopped - Provider: Rolly Edge, RN) [...] Marilynn Harris RN)0945 (Given - Provider: Marilynn Harris RN) lidocaine (XYLOCAINE) 10 mg/mL (1 %) injection [...] Routine 1238 (Given - Provid er: Rolly Edge RN) sodium chloride 0.9 % flush 5-20 mL 5-20 mL, Intravenous, EVERY 1 MIN PRN, Starting on Tue03/08/17 at 2304, Until Tue03/09/17 at 1734, flush, Flush pertains to all indwelling lines. Flush per protocol found in the job aid using the link provided on this medication record., Recovery (Recovery-Hospital Unit), Routine documented in this encounter Care Teams Christian Science Healer Relationship Specialty Start Date End Date Molina Herr MD [facility] [address] [place] [address] PCP - General 01/27/10 documented as of this encounter
--- OUTSIDE RECORDS SUMMARY | 2023-10-17 15:13 | XMS_ITS | Encounter Summary ---
[place] [address] Care Team Providers Care Tax Manager Cpa Name Role Phone Molina Herr MD Primary Care Provider [phone] Encounter Details Date Type Department Care Team (Late st Contact Info) Description 12/13/2013 [place] [phone] Vivi Polanco, OSCAR Social History Tobacco Use Types Packs/Day Years [...] encounter Miscellaneous Notes * Telephone Encounter - Vivi Crawford, RN - 12/13/2013 11:01 AM EDT TELEPHONE NOTE Responsible Provider: [facility] Caller: Dr. Herr Reason for call: L knee pain. Mr. Polk has a scheduled marley't with Dr. Fuchs on 12/27. Dr. Herrhared an MRI done that shows a small tibial plateau insufficiency fracture, and he is requesting thatMr. Polk have an marley't with an AP today or tomorrow if possible to discuss activity limitations. Assessment: Appropriate. Plan/Instructions: Marley't made with Debi Ramos PA-C, tomorrow. Mr. Polk has imaging ordered forhis marley't with Dr. Fuchs, which we will have him obtain before tomorrow's marley't. Message left to page #[phone]. documented in this encounter Plan of Treatment Upcoming Encounters Date Type Department Care Team (Late st Contact Info) Description 10/27/2023 11:15 AM EDT Office Visit Palliative Medicine at [place] [address] Elly Alston MD [facility] HOSPICE AND [place] [address] 10/27/2023 1:00 PM EDT Office Visit Speech Therapy at [address] Debra Franco, PLAN CHECKER 11/03/2023 2:00 PM EDT Office Visit Speech Therapy at [place] [phone] Debra Franco, PLAN CHECKER 11/08/2023 2:30 PM EDT Appointment MRI at [place] [address] Navjot Grider MD [facility] [address] HEMATOLOGY [place] [address] 11/09/2023 1:45 PM EDT Office Visit Hematology and Oncology at [place] [phone] Isabell Jacob MD [facility] [place] [address] 11/11/2023 10:30 AM EDT Office Visit Radiation Oncology at [place] [phone] Nicki Sharpe MD [facility] [place] [address] 11/15/2023 10:00 AM EDT Office [place] [address] Debra Franco, PLAN CHECKER 11/16/2023 9:00 AM EDT Office Visit Hematology [place] [address] Bisi Nam 11/22/2023 10:00 AM EDT Office [place] [address] Debra Franco, PLAN CHECKER 11/30/2023 9:00 AM EDT Office Visit Hematology [place] [address] Bisi Nam 12/14/2023 9:00 AM EDT Office Visit Hematology [place] [address] Bisi Nam 12/28/2023 9:00 AM EDT Office Visit [place]ology [place] [address] Bisi Nam documented as of this encounter Visit Diagnoses Not on filedocumented in this encounter Care Teams Tax Manager Cpa Relationship Specialty Start Date End Date Molina Herr MD [facility] [address] [place] [address] PCP - General 01/27/10 documented as of this encounter
--- OUTSIDE RECORDS SUMMARY | 2023-10-17 15:13 | XMS_ITS | Encounter Summary ---
Author Organization [facility] [place] [address] Care Team Providers Care Station Installer And Repairer Name Role Phone Molina Herr MD Primary Care Provider Encounter Details Date Type Department Care Team (Latest Contact Info) Description 12/07/2013 9:54 AM EDT - 12/07/2013 11:59 PM EDT [place] [id number] CLINIC, Molina Aragon MD [address] [place], [place] [id number] Pain in lower limb, left Discharge Disposition: Home Social History Tobacco Use [...] Sig Dispensed Refills Start Date End Date bwmctfamuddtn-WR-exue (SOURCE CF) 200-10 mcg-mg Chew Take 1 tablet by mouth daily. 08/04/2010 levothyroxine (SYNTHROID) 25 mcg tablet 25MCG = 1 Tablet(s), PO, Once daily 09/27/2007 atorvastatin (LIPITOR) 10 mg tablet Take 20 mg by mouth. 09/27/2007 ketoconazole (NIZORAL) 2 % Cream Apply topically daily. 08/10/201303/28 omeprazole (PRILOSEC) 10 mg capsule Take 10 mg by mouth daily. 03/28/2017 aspirin 81 mg EC tablet Take 81 mg by mouth daily. 07/05/2023 documented as of this encounter Plan of Treatment Upcoming Encounters Date Type Department Care Team (Late st Contact Info) Description 10/27/2023 11:15 AM EDT Office Visit Palliative Medicine at [place] [phone] Elly Alston MD [facility] HOSPICE [place] [address] 10/27/2023 1:00 PM EDT Office Visit Speech Therapy at [place] [phone] Debra Franco, TRIAL MANAGEMENT ASSOCIATE 11/03/2023 2:00 PM EDT Office Visit Speech Therapy at [place] [phone] Debra Franco, TRIAL MANAGEMENT ASSOCIATE 11/08/2023 2:30 PM EDT Appointment MRI at [place] [phone] Navjot Grider MD [facility] [place] [address] 11/09/2023 1:45 PM EDT Office Visit Hematology and Oncology at [place] [phone] Isabell Jacob MD [facility] [address] 11/11/2023 10:30 AM EDT Office Visit Radiation Oncology at [place] [phone] Nicki Sharpe MD [facility] [place] [address] 11/15/2023 10:00 AM EDT Office [place] [address] Debra Franco, TRIAL MANAGEMENT ASSOCIATE 11/16/2023 9:00 AM EDT Office Visit Hematology [place] [address] Bisi Nam 11/22/2023 10:00 AM EDT Office [place] [address] Debra Franco, TRIAL MANAGEMENT ASSOCIATE 11/30/2023 9:00 AM EDT Office Visit [place] [address] Bisi Nam 12/14/2023 9:00 AM EDT Office Visit [place]ematology [place] [address] Bisi Nam 12/28/2023 9:00 AM EDT Office Visit [place]ematology [place] [address] Bisi Nam documented as of this encounter Procedures Procedure Name Priority Date/Time Associated Diagnosis Comments MRI KNEE WITH/WO CONTRAST Routine 12/07/2013 11:15 AM EDT documented in this encounter Results * MRI knee with/WO contrast (12/07/2013 11:15 AM EDT) Anatomical Region Laterality Modality Knee Magnetic Resonan ce 12/07/2013 11:1 5 AM EDT Narrative 12/07/2013 3:31 PM EDT Examination MRI KNEE WITHOUT GD/LEFT Clinical History left knee pain ?Meniscal Comparison Knee radiographs of July 19, 2005 ?? Technique MR of the left knee without intravenous contrast administration ?? Findings A moderate sized joint effusion is present. Bone marrow edema is present in the medial tibial plateau and the patella. There is a short hypointense line parallel to the anterolateral medial tibial plateau articular surface series 5, image 15. This is surrounded by diffuse bone bruise and represents a short insufficiency fracture. ?? There is a complex medial meniscal tear with a large radial defect and possible small inferior flap, series 4 image 11. There is extrusion of the posterior horn and body medially which displaces the medial collateral ligament complex. There is soft tissue edema of surrounding the medial collateral ligament complex likely related to the underlying meniscal and degenerative pathology. No disruption of the medial collateral ligament is seen. There are multiple large chondral erosions extending to the bone along the medial femoral condyle and medial tibial plateau. ?? Multiple erosions of the lateral femoral condyle and lateral tibial plateau cartilage extending to the bone. There is a radial tear of the lateral meniscus posterior horn free edge. ?? The anterior and posterior cruciate ligaments are intact. ?? There are multiple osteophytes and erosions of the patellar and femoral trochlear cartilage. ?? Edema and small amount of fluid is in the pes anserine bursa. ?? Impression ? 1. Extensive osteoarthropathy with chondral defects in all 3 compartments of the knee. ? 2. Complex tear of medial meniscus and radial tear of lateral meniscus. ? 3. Small insufficiency fracture of the medial tibial plateau surrounded by bone bruise may contribute to pain ? 4. Pes anserine bursitis and knee effusion ?? Film and interpretation reviewed by the attending Procedure Note Deepa Nazario MD - 12/07/2013 Examination MRI KNEE WITHOUT GD/LEFT Clinical History left knee pain ?Meniscal Comparison Knee radiographs of July 19, 2005 Technique MR of the left knee without intravenous contrast administration Findings A moderate sized joint effusion is present. Bone marrow edema is present in the medial tibial plateau and the patella. There is a short hypointense line parallel to the anterolateral medialtibial plateau articular surface series 5, image 15. This is surrounded bydiffuse bone bruise and represents a short insufficiency fracture. There is a complex medial meniscal tear with a large radial defect andpossible small inferior flap, series 4 image 11. There is extrusion of theposterior horn and body medially which displaces the medial collateral ligamentcomplex. There is soft tissue edema of surrounding the medial collateral ligament complex likely related to the underlying meniscal and degenerativepathology. No disruption of the medial collateral ligament is seen. There aremultiple large chondral erosions extending to the bone along the medial femoralcondyle and medial tibial plateau. Multiple erosions of the lateral femoral condyle and lateral tibialplateau cartilage extending to the bone. There is a radial tear of the lateralmeniscus posterior horn free edge. The anterior and posterior cruciate ligaments are intact. There are multiple osteophytes and erosions of the patellar and femoral trochlear cartilage. Edema and small amount of fluid is in the pes anserine bursa. Impression 1. Extensive osteoarthropathy with chondral defects in all 3compartments of the knee. 2. Complex tear of medial meniscus and radial tear of lateralmeniscus. 3. Small insufficiency fracture of the medial tibial plateausurrounded by bone bruise may contribute to pain 4. Pes anserine bursitis and knee effusion Film and interpretation reviewed by the attending Molina Herr MD IMG MRI ORDERABLES documented in this encounter Visit Diagnoses Diagnosis Pain in lower limb, left documented in this encounter Care Teams Station Installer And Repairer Relationship Specialty Start Date End Date Molina Herr MD [address] [place] [address] PCP - General 01/27/10 documented as of this encounter
--- OUTSIDE RECORDS SUMMARY | 2023-10-17 15:14 | XMS_ITS | Encounter Summary ---
Author Organization [facility] Address [facility] [place] [address] Care Team Providers Care Dental Assistant Teacher Name Role Phone Molina Herr MD Primary Care Provider [phone] Encounter Details Date Type Department Care Team (Latest Contact Info) Description 08/24/2010 7:30 AM EDT - 08/24/2010 11:59 PM EDT Hospital Encounter XRay at [address] [place] [phone] CLINIC, Guzman Bray MD [facility] [place] [address] Lumbar degenerative disc disease Discharge Disposition: Home Social History Tobacco Use Types Packs/Day Years Used Date Smoking Tobacco: Never Alcohol Use Standard Drinks/Week Comments Not Asked 0 (1 standard drink = 0.6 oz pur e alcohol) Sex and Gender Information Value Date Recorded Sex Assigned at Male 02/02/2021 9:04 PM EST Gender Identity Male 02/02/2021 9:04 PM EST Sexual Orientation Not on file documented as of this encounter Medications at Time of Discharge Medication Sig Dispensed Refills Start Date End Date jvdgcljioixvc-OB-euji (SOURCE CF) 200-10 mcg-mg Chew Take 1 tablet by mouth daily. 08/04/2010 levothyroxine (SYNTHROID) 25 mcg tablet 25MCG = 1 Tablet(s), PO, Once daily 09/27/2007 atorvastatin (LIPITOR) 10 mg tablet Take 20 mg by mouth. 09/27/2007 omeprazole (PRILOSEC) 10 mg capsule Take 10 mg by mouth daily. 03/28/2017 levofloxacin (LEVAQUIN) 750 mg tablet Take 750 mg by mouth daily. 09/01/2010 aspirin 81 mg EC tablet Take 81 mg by mouth daily. 07/05/2023 documented as of this encounter Plan of Treatment Upcoming Encounters Date Type Department Care Team (Late st Contact Info) Description 10/27/2023 11:15 AM EDT Office Visit Palliative Medicine at [place] [address] Elly Alston MD [facility] [address] HOSPICE AND [place] [address] 10/27/2023 1:00 PM EDT Office Visit Speech Therapy at [place] [address] Debra Franco, CUSTOMER COUNTER REPRESENTATIVE 11/03/2023 2:00 PM EDT Office Visit Speech Therapy at [place] [address] Debra Franco, CUSTOMER COUNTER REPRESENTATIVE 11/08/2023 2:30 PM EDT Appointment MRI at [place] [address] Navjot Grider MD [facility] HEMATOLOGY [place] [address] 11/09/2023 1:45 PM EDT Office Visit Hematology and Oncology at [place] [address] Isabell Jcaob MD [facility] [place] [address] 11/11/2023 10:30 AM EDT Office Visit Radiation Oncology at [address] Nicki Junior MD [facility] [place] [address] 11/15/2023 10:00 AM EDT Office [place] [address] Debra Franco, CUSTOMER COUNTER REPRESENTATIVE 11/16/2023 9:00 AM EDT Office Visit Hematology [place] [address] Bisi Nam 11/22/2023 10:00 AM EDT Office [place] [address] Debra Franoc, CUSTOMER COUNTER REPRESENTATIVE 11/30/2023 9:00 AM EDT Office Visit Hematology [place] [address] Bisi Nam 12/14/2023 9:00 AM EDT Office Visit Hematology [place] [address] Bisi Nam 12/28/2023 9:00 AM EDT Office Visit Hematology [place] [address] Bisi Nam documented as of this encounter Procedures Procedure Name Priority Date/Time Associated Diagnosis Comments XR LUMBAR SPINE 2 OR 3 VIEWS Routine 08/24/2010 7:30 AM EDT Lumbar degenerative disc disease documented in this encounter Results * XR lumbar spine 2 or 3 views (08/24/2010 7:30 AM EDT) Anatomical Region Laterality Modality L-spine N/A Radiographic Ilana ging 08/24/2010 7:30 AM EDT Impressions 08/25/2010 8:09 AM EDT IMPRESSION: ?? Anterolisthesis of L4 on L3, approximately 1 cm. ??This does not change dramatically on flexion extension views. ??Significant intervertebral disc space changes and endplate changes at L1-L2. ??Posterior facet arthropathy is present throughout. Narrative 08/25/2010 8:09 AM EDT LUMBAR SPINE, TWO VIEWS: ?? CLINICAL INDICATION: ??69-year-old male with a history of discitis, question flexion extension views. FINDINGS: ??There is marked intervertebral body irregularity with loss of the disc space at L1-L2 and endplate irregularity, dramatic at the superior endplate of L2. ??There is also degenerative changes and disc space narrowing at L2-L3, L3-L4, and L4-L5. ??There is mild anterolisthesis of L4 on L3, which does not change significantly on flexion extension. ??No significant motion is detected at the L1-L2 level. ?? Procedure Note Mendy Alexander MD - 08/25/2010 LUMBAR SPINE, TWO VIEWS: CLINICAL INDICATION: 69-year-old male with a history of discitis,question flexion extension views. FINDINGS: There is marked intervertebral body irregularity with loss ofthe disc space at L1-L2 and endplate irregularity, dramatic at the superior endplate of L2. There is also degenerative changes and disc spacenarrowing at L2-L3, L3-L4, and L4-L5. There is mild anterolisthesis of L4 on L3, whichdoes not change significantly on flexion extension. No significant motion is detected at the L1-L2 level. IMPRESSION IMPRESSION: Anterolisthesis of L4 on L3, approximately 1 cm. This does not change dramatically on flexion extension views. Significant intervertebral discspace changes and endplate changes at L1-L2. Posterior facet arthropathy ispresent throughout. Guzman Syed MD IMG DX ORDERABLES documented in this encounter Visit Diagnoses Diagnosis Lumbar degenerative disc disease Degeneration of lumbar or lumbosacral intervertebral disc documented in this encounter Care Teams Dental Assistant Teacher Relationship Specialty Start Date End Date Molina Herr MD [address] [place] [address] PCP - General 01/27/10 documented as of this encounter
--- OUTSIDE RECORDS SUMMARY | 2023-10-17 15:14 | XMS_ITS | Encounter Summary ---
[place] [address] Care Team Providers Care Manager Of Pharmacy Name Role Phone Molina Herr MD Primary Care Provider [phone] Reason for Referral * Physical Therapy (Routine) - Closed Specialty Diagnoses / Procedures Referred By Contac t Referred To Contact Physical Therapy Diagnoses Lumbar degenerative disc disease Mayelin Espino NETWORK DEVELOPER [facility] [place] [address] [facility] [place] [address] Referral ID Status Reason Start Date Expiration Date V isits Requested Visits Authorized [id number] Closed Evaluate and Treat 08/21/2010 02/17/2011 1 1 Reason for Visit * Reason Comments Back Pain Encounter Details Date Type Department Care Team (Late st Contact Info) Description 08/21/2010 12:20 PM EDT Office [place] [address] [facility] [place] [address] Lumbar degenerative disc disease (Primary Dx) Discharge Disposition: Home Social History [...] Sign Reading Time Taken Comments Blood Pressure 132/64 08/21/2010 12:50 PM EDT Pulse - - Temperature - - Respiratory Rate - - Oxygen Saturation - - Inhaled Oxygen Concentration - - Weight 72.6 kg (160 lb) 08/21/2010 12:50 PM EDT Height 177.8 cm (5' 10) 08/21/2010 12:50 PM EDT Body Mass Index 22.96 08/21/2010 12:50 PM EDT documented in this encounter Progress Notes * Mayelin Espino, NETWORK DEVELOPER - 08/21/2010 2:00 PM EDT Subjective: Mr. Perfecto Polk is a pleasant 69-year-old gentleman seen at the request of Dr. Wellington Young with his PCP and Grace Kaplan M.D. infectious disease for back pain secondary to disc degeneration and status post treatment for discitis. He reports that the history of his complaint is that he was working with his kwekjdn-ec-cjj do no lifting over his head in an awkward position May 29 of this year when he had sudden onset of back pain and soreness been progressed to spasming. He was on vacation and so he spent lot of time in the pool, had an LESI, but his pain became increasingly more significant over .time. He did PT and over time , his pain reached what he called 11 on a scale of 10 he had rigors and chills and had an MRI and was given pain medication. His MRI showed question of discitis at L1 to and he was treated with Levaquin and subsequently biopsied. His biopsy he has had no growth of any organisms and his pain is reduced his lab works including all of the sedimentation rate, white count and CRP are all either normal or returning to normal. He is asking what he might be able to do to get back in shape. His symptoms are better with walking worse with relaxing in a soft chair. He has 2 areas of concernme in the mid back where he had the discitis, and low back pain the mid back pain is worse is sitting or lifting low pain is worse when bending. His review of systems is notable for a 15 pound weightloss but has now stabilized, no GI symptoms some constant, some constipation related to medication use and remainder of review of systems is negative. 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 Objective: The patient is a fit-appearing gentleman with a stated age of 69. He has been appearance, stands with level shoulder hips and knees, but has a kyphotic deformity in the thoracic spine. He is nontender to palpation or percussion his neurological exam is normal with symmetrical reflexes atthe knees and ankles, Babinski with downgoing toes, no Thomas, clonus. His gait is nonantalgic, hecan walk on his heels and toes. His lumbar range of motion is 7 inches of the floor and flexion is a mild instability catch upon arising to up right, extension is minimal, lateral bending is full. His power screen is normal, his sensation is , he has good hip range of motion. MRI done in July at [facility] is of poor quality but to my eye shows the discitis is described, degenerative disc disease throughout the lumbar spine. Assessment: Discitis now resolving. Lumbar degenerative disc disease. Plan: The patient and I had discussed his sensation of the spine is unstable and I think it's reasonable to do a lateral flexion and extension film. We did discuss that this would expose him to a more radiation although less radiation and the CAT scan. I suspect that this will minimal if any instability. I am also make a referral to him for physical therapy in the spine Center. I am not going to make a followup appointment with him that I would be happy to see him back if he had any questions or further difficulties and I will mail him a copy of his x-ray report at his request. Greater than 50% of this 45 minute visit was spent in [id number] discussion of present symptoms and future plan of care. documented in this encounter Plan of Treatment Upcoming Encounters Date Type Department Care Team (Late st Contact Info) Description 10/27/2023 11:15 AM EDT Office Visit Palliative Medicine at [place] [address] Elly Alston MD [facility] HOSPICE [place] [address] 10/27/2023 1:00 PM EDT Office Visit Speech Therapy at [place] [address] Debra Franco, RICE FARMWORKER 11/03/2023 2:00 PM EDT Office Visit Speech Therapy at [place] [address] Debra Franco, RICE FARMWORKER 11/08/2023 2:30 PM EDT Appointment MRI at [place] [address] Navjot Grider MD [facility] [place] [address] 11/09/2023 1:45 PM EDT Office Visit Hematology and Oncology at [place] [address] Isabell Jacob MD [facility] [place] [address] 11/11/2023 10:30 AM EDT Office Visit Radiation Oncology at [place] [address] Nicki Sharpe MD [facility] [place] [address] 11/15/2023 10:00 AM EDT Office Visit Speech Therapy at [address] Debra Franco, RICE FARMWORKER 11/16/2023 9:00 AM EDT Office Visit Hematology and Oncology at [place] [address] Bisi Nam 11/22/2023 10:00 AM EDT Office [place] [address] Debra Franco, RICE FARMWORKER 11/30/2023 9:00 AM EDT Office Visit Hematology [place] [address] Bisi Nam 12/14/2023 9:00 AM EDT Office Visit Hematology [place] [address] Bisi Nam 12/28/2023 9:00 AM EDT Office Visit Hematology [place] [address] Bisi Nam Scheduled Referrals Name Type Priority Associated Diagnoses Orde r Schedule REFERRAL TO PHYSICAL THERAPY Outpatient Referral Routine Lumbar degenerative disc disease Ordered: 08/21/2010 documented as of this encounter Results * XR lumbar spine [...] encounter Visit Diagnoses Diagnosis Lumbar degenerative disc disease- Primary Degeneration of lumbar or lumbosacral intervertebral disc Lumbar degenerative disc disease Degeneration of lumbar or lumbosacral intervertebral disc documented in this encounter Care Teams Manager Of Pharmacy Relationship Specialty Start Date End Date Molina Herr MD [address] [place] [address] PCP - General 01/27/10 documented as of this encounter
--- OUTSIDE RECORDS SUMMARY | 2023-10-17 15:14 | XMS_ITS | Encounter Summary ---
Author Organization [facility] [place] [place] [address] Care Team Providers Care Mutual Funds Agent Name Role Phone Molina Herr MD Primary Care Provider [phone] Encounter Details Date Type Department Care Team (Latest Contact Info) Description 2010 2:11 PM EDT - 2010 11:59 PM [place]T [place] [id number] Molina Herr MD [address] [address] [place] [address] Discharge Disposition: Home Social History Tobacco Use [...] Sig Dispensed Refills Start Date End Date [id number] (SOURCE CF) 200-10 mcg-mg Chew Take 1 [...] AM EDT Office Visit Palliative Medicine at [place] [address] Elly Alston MD [facility] HOSPICE AND P[place]IAT[place] [address] 10/27/2023 1:00 PM EDT Office Visit Speech Therapy at [place] [address] Debra Franco, FOREST FIRE CONTROL OFFICER 11/03/2023 2:00 PM EDT Office Visit Speech Therapy at [place] [address] Debra Franco, FOREST FIRE CONTROL OFFICER 11/08/2023 2:30 PM EDT Appointment MRI at [place] [address] Navjot Grider MD [facility] DR HEMATOLOGY [place] [address] 11/09/2023 1:45 PM EDT Office Visit Hematology and Oncology at [place] [address] Isabell Jacob MD [facility] [place] [address] 11/11/2023 10:30 AM EDT Office Visit Radiation Oncology at [place] [address] Nicki Sharpe MD [facility] DR [place] [address] 11/15/2023 10:00 AM EDT Office Visit [place] [address] Debra Franco, FOREST FIRE CONTROL OFFICER 11/16/2023 9:00 AM EDT Office Visit Hematology [place] [address] Bisi Nam 11/22/2023 10:00 AM EDT Office [place] [address] Debra Franco FOREST FIRE CONTROL OFFICER 11/30/2023 9:00 AM EDT Office Visit Hematology [place] [address] Bisi Nam 12/14/2023 9:00 AM EDT Office Visit Hematology [place] [address] Bisi Nam 12/28/2023 9:00 AM EDT Office Visit Hematology [place] [address] Bisi Nam documented as of this encounter Procedures Procedure Name Priority Date/Time Associated Diagnosis Comments DIFFERENTIAL, AUTOMATED Routine 2010 12:07 PM EDT GOLD TUBE HOLD Routine 2010 12:07 PM EDT SEDIMENTATION RATE Routine 2010 12 :07 PM EDT CBC (WITH DIFF) Routine 2010 12:07 PM EDT CRP, CARDIAC RISK (HS CRP) Routine 2010 12:07 PM EDT COMPREHENSIVE METABOLIC PANEL Routine 2010 12:07 PM EDT documented in this encounter Results * REFLEX LAB-A-DIFF (2010 12:07 PM EDT) Neutrophil % 58.4 34.0 - 71.0 % CERNER MILLENNIUM Neutrophil Absolute 3.08 1.50 - 6.30 x10(3)/mcL CERNER MILLENNIUM Lymph % 28.7 19.0 - 53.0 % CERNER MILLENNIUM Lymphocytes Abs 1.5 1.0 - 3.6 x10(3)/mcL CERNER MILLENNIUM Monocyte % 8.5 4.0 - 13.0 % CERNER MILLENNIUM Monocyte Abs 0.5 0.2 - 1.0 x10(3)/mcL CERNER MILLENNIUM Eos % 3.6 0.0 - 7.0 % CERNER MILLENNIUM Eosinophils Abs 0.2 0.0 - 0.5 x10(3)/mcL CERNER MILLENNIUM Basophil % 0.6 0.0 - 2.0 % CERNER MILLENNIUM Baso Absolute 0.0 0.0 - 0.2 x10(3)/mcL CERNER MILLENNIUM Immature Gran % 0.20 0.00 - 0.66 % CERNER MILLENNIUM Comment: Immature granulocytes(IG's)percentage and absolute count will include metamyelocytes, myelocytes, and promyelocytes. Blood smears from CBCs yielding IG's will be scanned manually for concordance. If this scan disagrees with the automated IG or if promyelocytes are noted, a manual differential will be performed. Immature Gran Absolute 0.01 0.00 - 0.05 x10(3)/mcL MARCO A BRYSONENNIUM Blood specimen (specimen) 2010 12:07 PM EDT 2010 2:29 PM EDT Molina Herr MD HEMATOLOGY ORDERABLE S MARCO A ROQUEIUM * GOLD TUBE HOLD (2010 12:07 PM EDT) Pathologist [facility] Gold Hold Sample in lab. MARCO A ROQUEIUM Blood specimen (specimen) 2010 12:07 PM EDT 2010 2:30 PM EDT Molina Herr MD CHEMISTRY ORDERABLES Performing Organization Address [facility] Co de Phone Number [facility] * HIGH SENSITIVITY CRP (2010 12:07 PM EDT) Pathologist [facility] C-Reactive Protein High Sensitivity 0.5 mg/L [facility] Comment: Interpretations: 1) For cardiac risk assessment, two values (fasting or nonfasting sample acceptable) taken at least 2 weeks apart, should be averaged to provide a more reliable estimate of marker level. ??This laboratory uses the recommendations from the AHA/CDC Scientific Statement for interpretations of future risks of cardiovascular events: ? <1.0 mg/L: low risk 1.0 - 3.0 mg/L: moderate risk >3.0 mg/L: high risk groups for future cardiovascular events 2) The general reference range of apparently healthy individuals using this test is <5.0 mg/L (derived from the test package insert) A few words of caution: For cardiac assessment, when a value >10 mg/L is encountered, there should be a search for an acute inflammatory condition or infection (in patients with acute inflammation, the concentration can increase to >500 mg/L). ??The >10 mg/L should be discarded if such a situation exists, since the risk for coronary heart disease cannot be provided, and a repeat specimen, taken at least two weeks after resolution of the acute inflammatory condition, may allow for appraisal of coronary risk information. References: 1. Elena JENSEN et. al. ??AHA/CDC Scientific Statement: Markers of Inflammation and Cardiovascular Disease. ??Circulation 2003; 107:499-511 2. Katelyn PM. ??Clinical applications of C-reactive protein for cardiovascular disease detection and prevention. ??Circulation 2003; 107:363-369 Blood specimen (specimen) 2010 12:07 PM EDT 2010 2:29 PM EDT Molina Herr MD CHEMISTRY ORDERABLES Performing Organization Address [facility] Co de Phone Number [facility] * SEDIMENTATION RATE (2010 12:07 PM EDT) Pathologist [facility] Sedimentation Rate Automated 12 0 - 15 mm/hr CERNER MILLENNIUM Blood specimen (specimen) 2010 12:07 PM EDT 2010 2:29 PM EDT Molina Herr MD HEMATOLOGY ORDERABLE S MARCO A BRYSONENNIUM * (ABNORMAL) CBC (WITH DIFF) (2010 12:07 PM EDT) White Blood Cell 5.3 4.0 - 10.0 x10(3)/mc L CERNER MILLENNIUM Red Blood Cell 4.44(L) 4.63 - 6.08 x10(6)/mc L CERNER MILLENNIUM Hemoglobin 12.1(L) 13.7 - 17.5 gm/dL CERNER MILLENNIUM Hematocrit 37.2(L) 40.0 - 51.0 % CERNER MILLENNIUM Mean Cell Volume 83.8 79.0 - 92.0 fL CERNER MILLENNIUM Mean Cell Hemoglobin 27.3 25.6 - 32.2 pg CERNER MILLENNIUM Mean Cell Hemoglobin Concentration 32.5 32.0 - 36.5 gm/dL CERNER MILLENNIUM Platelet 279 145 - 370 x10(3)/mc L CERNER MILLENNIUM RDW Standard Deviation 49.7(H) 35.0 - 46.0 fL CERNER MILLENNIUM RDW coefficient of variation 16.3(H) 10.9 - 14.4 % CERNER MILLENNIUM Mean Platelet Volume 10.0 9.0 - 12.0 fL CERNER MILLENNIUM Blood specimen (specimen) 2010 12:07 PM EDT 2010 2:29 PM EDT Molina Herr MD HEMATOLOGY ORDERABLE S MARCO A BRYSONENNIUM * (ABNORMAL) COMPREHENSIVE METABOLIC PANEL (NON-FASTING) (2010 12:07 PM EDT) Glucose 133 60 - 199 mg/dL CERNER MILLENNIUM Comment:Diabetes: >=200 mg/d L plus symptoms Blood Urea Nitrogen 25(H) 10 - 20 mg/dL CERNER MILLENNIUM Creatinine 1.06 0.80 - 1.50 mg/dL CERNER MILLENNIUM Sodium 139 135 - 145 mmol/L CERNER MILLENNIUM Potassium 4.0 3.5 - 5.0 mmol/L CERNER MILLENNIUM Comment: Please note: ??Patients with WBC >100,000 may have falsely elevated Potassium levels. ??For accurate Potassium quantification in these patients send serum separator tube (gold top) for subsequent determinations. ??Contact the Clinical Chemistry Laboratory if there are any questions. Chloride 104 98 - 107 mmol/L CERNER MILLENNIUM Carbon Dioxide 24 22 - 31 mmol/L CERNER MILLENNIUM Anion Gap 11 5 - 15 mmol/L CERNER MILLENNIUM Calcium 9.2 8.5 - 10.5 mg/dL CERNER MILLENNIUM Protein, Total 6.9 6.4 - 8.3 gm/dL CERNER MILLENNIUM Albumin 4.2 3.2 - 5.2 gm/dL CERNER MILLENNIUM Aspartate Aminotransferase 19 0 - 39 unit/L CERNER MILLENNIUM Alanine Aminotransferase 14 0 - 55 unit/L CERNER MILLENNIUM Alkaline Phosphatase 60 40 - 120 unit/L CERNER MILLENNIUM Bilirubin, Total 0.3 0.2 - 1.3 mg/dL CERNER MILLENNIUM Bilirubin, Direct 0.1 0.0 - 0.3 mg/dL CERNER MILLENNIUM Est Glomerular Filtration Rate >60 >=60 CERNER MILLENNIUM Comment: The National Kidney Disease Education Program (NKDEP) has recommended all laboratories report estimated GFR (eGFR) along with plasma creatinine measurements to assist you with recognition of early kidney disease. Caveats: ??Plasma creatinine should be at steady-state (unchanged within the past week). For patients multiply eGFR by 1.2.MDRD equation has not been validated for pediatric patients and is only valid for patients with age >= 18 years. At present, NKDEP does NOT recommend using the MDRD equation for drug dosing purposes and pharmacists should continue to use their current dosing methods. In addition, numerical eGFR values greater than 60 ml/min/1.73 square meters should be treated as > 60, and not an exact number due to greater inaccuracies at these higher values. Per NKDEP, they classify normal renal function as any GFR >60ml/min/1.73 square meters; chronic kidney disease when GFR <60, and renal failure when GFR <15. ??This calculation may not be valid for patients with atypical muscle mass (very lean or obese), acute renal failure, and in patients with diabetic kidney disease. References: http://nkdep.nih.gov/resources/NKDEP_Suggestn4Labs_0606_508.pdf http://www.kidney.org/professionals/kls/pdf/faq_gfr.pdf Blood specimen (specimen) 2010 12:07 PM EDT 2010 2:29 PM EDT Molina Herr MD CHEMISTRY ORDERABLES Performing Organization Address City/State/[facility] Co [place] Phone Number [facility] documented in this encounter Visit Diagnoses Not on filedocumented in this encounter Care Teams Mutual Funds Agent Relationship Specialty Start Date End Date Molina Herr MD [facility] [address] [place] [address] PCP - General 01/27/10 documented as of this encounter
--- OUTSIDE RECORDS SUMMARY | 2023-10-17 15:14 | XMS_ITS | Encounter Summary ---
[place] [address] Care Team Providers Care Multimedia Educational Specialist Name Role Phone Molina Herr MD Primary Care Provider Encounter Details Date Type Department Care Team (Late st Contact Info) Description 08/04/2010 [place] [address] Molina Herr MD [address] [address] [place] [address] Social History Tobacco Use Types Packs/Day Years Used Date Smoking Tobacco: Never Assessed [facility] Inpatient Questions Answer Date Recorded Does [...] Office Visit Palliative Medicine at [facility] [address] [place] [address] Elly Alston MD [facility] [address] HOSPICE AND [place]AT[place] [address] 10/27/2023 1:00 PM EDT Office Visit Speech Therapy at [place] [address] Debra Franco, GUEST HISTORY CLERK 11/03/2023 2:00 PM EDT Office Visit Speech Therapy at [address] Debra Franco, GUEST HISTORY CLERK 11/08/2023 2:30 PM EDT Appointment MRI at [place] [address] Navjot Grider MD [facility] [address] HEMATOLOGY [place] [address] 11/09/2023 1:45 PM EDT Office Visit Hematology and Oncology at [place] [address] Isabell Jacob MD [facility] [place] [address] 11/11/2023 10:30 AM EDT Office Visit Radiation Oncology at [place] [address] Nicki Sharpe MD [facility] [place] [address] 11/15/2023 10:00 AM EDT Office [place] [address] Debra Franco, GUEST HISTORY CLERK 11/16/2023 9:00 AM EDT Office Visit Hematology and Oncology at [place] [phone] Bisi Nam 11/22/2023 10:00 AM EDT Office [place] [address] Debra Franco, GUEST HISTORY CLERK 11/30/2023 9:00 AM EDT Office Visit Hematology [place] [address] Bisi Nam 12/14/2023 9:00 AM EDT Office Visit Hematology [place] [address] Bisi Nma 12/28/2023 9:00 AM EDT Office Visit Hematology [place] [address] Bisi Nam documented as of this encounter Procedures Procedure Name Priority Date/Time Associated Diagnosis Comments SURGICAL PATHOLOGY REPORT Routine 08/04/2010 4:58 PM EDT documented in this encounter Results * Surgical Pathology Report (08/04/2010 4:58 PM EDT) Surgical Pathology Report [id number] ? Location: 3W The signing pathologist has (i) examined the relevant preparation(s) for the specimen(s) and (ii) rendered or confirmed the diagnosis(es). . 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 Labeled with the patient's name, fresh. Qty/Size/Weight: ?Two cylindrical needle cores of bony tissue, ?0.4 x 0.2 x 0.2 cm. Sections/Processing : ??One portion of tissue is submitted for flow ?cytometry, per request. ??The second is submitted in one cassette following decalcification. ??A u.s. representative portion is submitted for decalcification (block A1). ??(T1) ??vms/EJR Microscopic Description Slides reviewed, microscopic description not recorded. Diagnosis L1-2 bone, biopsy: ?? 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 malignancy. CR-0 08/07/10 BJM 08/10/10 Verified by: ? Nikia SUNG, Melchor ?Pathologist ?(Electronic Signature) The attending pathologist whose signature appears on this report has reviewed all diagnostic slides and has edited the gross and/or microscopic portion of the report in rendering the final pathologic diagnosis. ? Pathology Flow Cytometry Report Clinical Information acute back pain. Abnormal MR ; L1-L2 Preparation Surgical Biopsy [id number], [id number] Markers ? Lymphoid (T) ?CD3 ? pos ?CD4/CD3 ? pos ?CD8/CD3 ? pos ? Lymphoid (B) ?CD19 ?pos (minor) ?kappa ? TFTC ?lambda ?TFTC . Interpretation ? Cells for immunophenotypic analysis were derived from biopsy. ??A lymphoid region, comprising approximately 11-15% of all cells was used for gated analysis. ??CD3 positive T-lymphocytes are an admixture of CD4 and CD8. CD19 positive B- lymphocytes are too few, which precludes further delineation by Ig light chains. ? Diagnosis: ??No monotypic B-cell population detected. T-lymphocytes with normal CD4: CD8 ratio. see comment. HISTOLOGIC CORRELATION REQUIRED. see comment. 08/05/10 TMS 08/05/10 Verified by: ? Yana SUNG, Ulysses ?Hematopathologist ?(Electronic Signature) Comment ? Flow analysis is an ancillary study. A definite diagnosis requires correlation with the morphologic features of this process and if necessary, correlation with other ancillary studies like immunohistochemistr y, enzyme cytochemistry and/or cyto/ molecular genetics. ? This test was developed and its performance characteristics determined by the Clinical Flow Cytometry Laboratory at [facility]. It has not been cleared or approved by the U.S. Food and Drug Administration. ??The FDA has determined that such clearance or approval is not necessary. ??This test is used for clinical purposes. ??It should not be regarded as investigational or for research. This laboratory is certified under the Clinical Laboratory Improvement Act of 1988 (CLIA) as qualified to perform high complexity clinical laboratory testing. [facility]CO A WOLF 08/04/2010 4:58 PM EDT Molina Herr MD PATHOLOGY/CYTOLOGY O [facility] MARCO A WOLF documented in this encounter Visit Diagnoses Not on filedocumented in this encounter Care Teams Multimedia Educational Specialist Relationship Specialty Start Date End Date Molina Herr MD [facility] [address] [place] [address] PCP - General 01/27/10 documented as of this encounter
--- OUTSIDE RECORDS SUMMARY | 2023-10-17 15:14 | XMS_ITS | Encounter Summary ---
Author Organization [facility] [place] [address] Care Team Providers Care Entry Operator Name Role Phone Molina Herr MD Primary Care Provider [phone] Encounter Details Date Type Department Care Team (Latest Contact Info) Description 08/11/2010 6:00 PM EDT - 08/11/2010 11:59 PM EDT Hospital [place] [id number] Molina Herr MD [address] [place] [address] Discharge Disposition: Home Social History Tobacco Use Types Packs/Day Years Used Date Smoking Tobacco: Never Assessed Sex and Gender Information Value Date Recorded Sex Assigned at Male 02/02/2021 9:04 PM EST Gender Identity Male 02/02/2021 9:04 PM EST Sexual Orientation Not on file documented as of this encounter Medications at Time of Discharge Medication Sig Dispensed Refills Start Date End Date mvvjqplarolgz-CI-spav (SOURCE CF) 200-10 mcg-mg Chew Take 1 tablet by mouth daily. 08/04/2010 levothyroxine (SYNTHROID) 25 mcg tablet 25MCG = 1 Tablet(s), PO, Once daily 09/27/2007 atorvastatin (LIPITOR) 10 mg tablet Take 20 mg by mouth. 09/27/2007 levofloxacin (LEVAQUIN) 750 mg tablet Take 750 mg by mouth daily. 09/01/2010 aspirin 81 mg EC tablet Take 81 mg by mouth daily. 07/05/2023 documented as of this encounter Plan of Treatment Upcoming Encounters Date Type Department Care Team (Late st Contact Info) Description 10/27/2023 11:15 AM EDT Office Visit Palliative Medicine at [place] [address] Elly Alston MD [facility] [address] HOSPICE [place] [address] 10/27/2023 1:00 PM EDT Office Visit Speech Therapy at [place] [address] Debra Franco, WICKER WORKER 11/03/2023 2:00 PM EDT Office Visit Speech Therapy at [place] [phone] Debra Franco, WICKER WORKER 11/08/2023 2:30 PM EDT Appointment MRI at [place] [address] Navjot Grider MD [facility] [address] [place] [address] 11/09/2023 1:45 PM EDT Office Visit Hematology and Oncology at [place] [address] Isabell Jacob MD [facility] [place] [address] 11/11/2023 10:30 AM EDT Office Visit Radiation Oncology at [place] [address] Nicki Sharpe MD [facility] [place] [address] 11/15/2023 10:00 AM EDT Office [place] [address] Debra Franco, WICKER WORKER 11/16/2023 9:00 AM EDT Office Visit Hematology [place]cology [place] [address] Bisi Nam 11/22/2023 10:00 AM EDT Office Visit Speech [place] [address] Debra Franco WICKER WORKER 11/30/2023 9:00 AM EDT Office Visit Hematology [place]cology [place] [address] Bisi Nam 12/14/2023 9:00 AM EDT Office Visit Hematology and [place]cology [place] [address] Bisi Nam 12/28/2023 9:00 AM EDT Office Visit Hematology and [place] [address] Bisi Nam documented as of this encounter Procedures Procedure Name Priority Date/Time Associated Diagnosis Comments DIFFERENTIAL, AUTOMATED Routine 08/11/2010 3:21 PM EDT IRON AND TIBC Routine 08/11/2010 3:21 PM EDT URINALYSIS WITH REFLEX CULTURE Routine 08/11/2010 3:21 PM EDT SEDIMENTATION RATE Routine 08/11/2010 3: 21 PM EDT RETICULOCYTE COUNT Routine 08/11/2010 3: 21 PM EDT CBC (WITH DIFF) Routine 08/11/2010 3:21 PM EDT PROTEIN ELECTROPHORESIS, SERUM Routine 08/11/2010 3:21 PM EDT FERRITIN Routine 08/11/2010 3:21 PM EDT documented in this encounter Results * REFLEX LAB-A-DIFF (08/11/2010 3:21 PM EDT) Neutrophil % 62.0 34.0 - 71.0 % CERNER MILLENNIUM Neutrophil Absolute 4.21 1.50 - 6.30 x10(3)/mcL CERNER MILLENNIUM Lymph % 27.4 19.0 - 53.0 % CERNER MILLENNIUM Lymphocytes Abs 1.9 1.0 - 3.6 x10(3)/mcL CERNER MILLENNIUM Monocyte % 6.5 4.0 - 13.0 % CERNER MILLENNIUM Monocyte Abs 0.4 0.2 - 1.0 x10(3)/mcL CERNER MILLENNIUM Eos % 3.5 0.0 - 7.0 % CERNER MILLENNIUM Eosinophils Abs 0.2 0.0 - 0.5 x10(3)/mcL CERNER MILLENNIUM Basophil % 0.6 0.0 - 2.0 % CERNER MILLENNIUM Baso Absolute 0.0 0.0 - 0.2 x10(3)/mcL CERNER MILLENNIUM Immature Gran % 0.00 0.00 - 0.66 % CERNER MILLENNIUM Comment: Immature granulocytes(IG's)percentage and absolute count will include metamyelocytes, myelocytes, and promyelocytes. Blood smears from CBCs yielding IG's will be scanned manually for concordance. If this scan disagrees with the automated IG or if promyelocytes are noted, a manual differential will be performed. Immature Gran Absolute 0.00 0.00 - 0.05 x10(3)/mcL CERNER MILLENNIUM Blood specimen (specimen) 08/11/2010 3:21 PM EDT 08/11/2010 6:28 PM EDT Molina Herr MD HEMATOLOGY ORDERABLE S CERNER MILLENNIUM * IRON AND TIBC (08/11/2010 3:21 PM EDT) Iron 93 45 - 160 mcg/dL CERNER MILLENNIUM TIBC 263 250 - 450 mcg/dL CERNER MILLENNIUM Iron Saturation 35 20 - 50 % CERN ER MILLENNIUM Blood specimen (specimen) 08/11/2010 3:21 PM EDT 08/11/2010 6:29 PM EDT Molina Herr MD CHEMISTRY ORDERABLES CERNER MILLENNIUM * FERRITIN (08/11/2010 3:21 PM EDT) Ferritin 57 30 - 400 ng/mL CERNER MILLENNIUM Comment: Pediatric reference ranges not verified at [facility], interpret with caution. Reference ranges for females greater than 50 years of age approach values for men, i.e., 30-400 ng/mL. Blood specimen (specimen) 08/11/2010 3:21 PM EDT 08/11/2010 6:29 PM EDT Molina Herr MD CHEMISTRY ORDERABLES Performing Organization Address [facility]/ZIP Co de Phone Number CERNER MILLENNIUM * PROTEIN ELECTROPHORESIS, SERUM (08/11/2010 3:21 PM EDT) Total Prot Electrophoresis 6.8 6.1 - 8.0 gm/dL CERNER MILLENNIUM Albumin Electrophoresis 3.90 3.60 - 6.00 gm/dL CERNER MILLENNIUM Alpha 1 Globulin 0.22 0.10 - 0.30 gm/dL CERNER MILLENNIUM Alpha 2 Globulin 0.87 0.40 - 0.90 gm/dL CERNER MILLENNIUM Beta Globulin 0.77 0.50 - 1.00 gm/dL CERNER MILLENNIUM Gamma Globulin 1.04 0.50 - 1.30 gm/dL CERNER MILLENNIUM M1 Band None Detected None Detected gm/dL CERNER MILLENNIUM Scan See Note CERNER MILLENNIUM Comment:Please see scanned r eport in Chart Review under the Non- Laboratory Heading. Blood specimen (specimen) 08/11/2010 3:21 PM EDT 08/11/2010 6:28 PM EDT Molina Herr MD CHEMISTRY ORDERABLES Performing Organization Address [facility] de Phone Number [facility] * URINALYSIS WITH MICROSCOPIC (08/11/2010 3:21 PM EDT) Glucose, Urine Dipstick Negative Negative mg/dL CERNER MILLENNIUM Protein, Urine Dipstick Negative mg/dL CERNER MILLENNIUM Bilirubin, Urine Dipstick Negative Negative mg/dL CERNER MILLENNIUM Urobilinogen, Urine Dipstick Normal mg/dL CERNER MILLENNIUM pH, Urn (dipstick) 6.0 5.0 - 8.0 CERNER MILLENNIUM Blood, Urine Dipstick Negative mg/dL CERNER MILLENNIUM Ketone, Urine Dipstick Negative mg/dL CERNER MILLENNIUM Nitrite, Urine Dipstick Negative CERNER MILLENNIUM Leukocytes, Urine Dipstick Negative mcL CERNER MILLENNIUM Appearance, Urine Dipstick Clear Clear CERNER MILLENNIUM Specific [place] Urine Automated 1.007 1.002 - 1.030 CERNER MILLENNIUM Color, Urine Dipstick Yellow Yellow CERNER MILLENNIUM RBC, Urine <1 0 - 3 /HPF CERNER MILLENNIUM WBC, Urine Not Present 0 - 3 CERNER MILLENNIUM Urine specimen (specimen) 08/11/2010 3:21 PM EDT 08/11/2010 6:28 PM EDT Molina Herr MD URINE ORDERABLES Performing Organization Address [facility] de Phone Number CERNER MILLENNIUM * RETICULOCYTE COUNT (08/11/2010 3:21 PM EDT) Reticulocyte % 0.7 0.5 - 2.4 % CERNER MILLENNIUM Retic Abs # 0.030 0.027 - 0.095 x10(6)/mcL CERNER MILLENNIUM Immature Retic% 3.0 2.3 - 15.9 % CERNER MILLENNIUM Reticulated Hgb 32.1 28.5 - 38.9 pg CERNER MILLENNIUM Immature Plt % 1.4 0.0 - 7.4 % CERNER MILLENNIUM Blood specimen (specimen) 08/11/2010 3:21 PM EDT 08/11/2010 6:28 PM EDT Molina Herr MD HEMATOLOGY ORDERABLE S CERNER MILLENNIUM * (ABNORMAL) SEDIMENTATION RATE (08/11/2010 3:21 PM EDT) Sedimentation Rate Automated 24(H) 0 - 15 mm/hr CERNER MILLENNIUM Blood specimen (specimen) 08/11/2010 3:21 PM EDT 08/11/2010 6:28 PM EDT Molina Herr MD HEMATOLOGY ORDERABLE S CERNER MILLENNIUM * (ABNORMAL) CBC (WITH DIFF) (08/11/2010 3:21 PM EDT) White Blood Cell 6.8 4.0 - 10.0 x10(3)/mc L CERNER MILLENNIUM Red Blood Cell 4.48(L) 4.63 - 6.08 x10(6)/mc L CERNER MILLENNIUM Hemoglobin 11.4(L) 13.7 - 17.5 gm/dL CERNER MILLENNIUM Hematocrit 35.8(L) 40.0 - 51.0 % CERNER MILLENNIUM Mean Cell Volume 79.9 79.0 - 92.0 fL CERNER MILLENNIUM Mean Cell Hemoglobin 25.4(L) 25.6 - 32.2 pg CERNER MILLENNIUM Mean Cell Hemoglobin Concentration 31.8(L) 32.0 - 36.5 gm/dL CERNER MILLENNIUM Platelet 321 145 - 370 x10(3)/mc L CERNER MILLENNIUM RDW Standard Deviation 46.9(H) 35.0 - 46.0 fL CERNER MILLENNIUM RDW coefficient of variation 16.1(H) 10.9 - 14.4 % CERNER MILLENNIUM Mean Platelet Volume 9.1 9.0 - 12.0 fL CERNER MILLENNIUM Blood specimen (specimen) 08/11/2010 3:21 PM EDT 08/11/2010 6:28 PM EDT Moilna Herr MD HEMATOLOGY ORDERABLE S Performing Organization Address City/State/[facility] Co de Phone Number [facility] documented in this encounter Visit Diagnoses Not on filedocumented in this encounter Care Teams Entry Operator Relationship Specialty Start Date End Date Molina Herr MD [address] [place] [address] PCP - General 01/27/10 documented as of this encounter
--- OUTSIDE RECORDS SUMMARY | 2023-10-17 15:14 | XMS_ITS | Encounter Summary ---
[place] [address] Care Team Providers Care Enterprise Software Developer Name Role Phone Molina Herr MD Primary Care Provider [phone] Reason for Visit * Reason Comments Back Pain Encounter Details Date Type Department Care Team (Late st Contact Info) Description 09/03/2010 8:00 AM EDT Office Visit Spine Center at [place] [phone] Carlo Lujan, PT [facility] [place] [address] Lumbar degenerative disc disease (Primary Dx) Social History Tobacco Use Types [...] as of this encounter Progress Notes * Carlo Lujan, PT - 09/03/2010 7:59 AM EDT SPINE CENTER PHYSICAL THERAPY FOLLOW-UP Initial self care trial centered around lower trunk rotation hook-lying, prone on elbows static extension, daily walking 2 miles. Other considerations will include lateral bias, flexion, and strategies to ease back into gym routine. Treatment Goals (with 4 PT sessions over 4 weeks): Allow for transitional movements in bed without pain aggravation. Increase flexion range of motion to 80 degrees. Resume independent gym routine. Independent self care. Subjective: Utilizing self care exercises less than planned. Walking about 2 miles per day. Functional tolerances gradually improving. Symptoms have continued to reduce. Notes that standing at sink can aggravate. Gym routine is not a priority at this point. Objective testing: Lumbar spine AROM degrees Flexion 75 Extension 15 Assessment and Planning Exercise testing: Lower trunk rotation hooklying, prone extension strategies, sustained extensor hold off end of bed. Home exercise program: Reviewed exercise objectives and safety principles. The self care routine now consists of: Lower trunk rotation, prone on elbows static extension, sustained extensor hold 5 seconds x 10 repetitions, daily walking. Still some right versus left deviation with attempted prone press ups, static prone on elbows more appropriate for his needs at this point. We also discussed how standing back bends may help to counteract aggravation of sustained slightly flexed postures. Improving with self care exercise. Requiresfurther progression to achieve treatment goals. Knows to call the Spine Center with any questions or concerns. Plan: Recommend PT follow up in 2 weeks. Consider standing flexion and extension tests as needed. Length of visit: A total of 25 minutes was spent to test and develop appropriate self care exercisestrategies. documented in this encounter Plan of Treatment Upcoming Encounters Date Type Department Care Team (Late st Contact Info) Description 10/27/2023 11:15 AM EDT Office Visit [place] [address] Elly Alston MD [facility] [address] HOSPICE [place] [address] 10/27/2023 1:00 PM EDT Office [place] [address] Debra Franco, RN LONG TERM CARE 11/03/2023 2:00 PM EDT Office [place] [address] Debra Franco, RN LONG TERM CARE 11/08/2023 2:30 PM EDT Appointment MRI at [place] [address] Navjot Grider MD [facility] [place] [address] 11/09/2023 1:45 PM EDT Office Visit Hematology and Oncology at [address] Isabell Jacob MD [facility] [place] [address] 11/11/2023 10:30 AM EDT Office Visit Radiation Oncology at [address] Nicki Sharpe MD [facility] [place] [address] 11/15/2023 10:00 AM EDT Office Visit Speech Therapy at [place] [phone] Debra Franco, RN LONG TERM CARE 11/16/2023 9:00 AM EDT Office Visit Hematology and Oncology at [place] [phone] Bisi Nam 11/22/2023 10:00 AM EDT Office Visit Speech Therapy at [place] [phone] Debra Franco, RN LONG TERM CARE 11/30/2023 9:00 AM EDT Office Visit Hematology [place] [address] Bisi Nam 12/14/2023 9:00 AM EDT Office Visit Hematology [place] [address] Bisi Nam 12/28/2023 9:00 AM EDT Office Visit Hematology [place] [address] Bisi Nam documented as of this encounter Visit Diagnoses Diagnosis Lumbar degenerative disc disease- Primary Degeneration of lumbar or lumbosacral intervertebral disc documented in this encounter Care Teams Enterprise Software Developer Relationship Specialty Start Date End Date Molina Herr MD [address] [place] [address] PCP - General 01/27/10 documented as of this encounter
--- OUTSIDE RECORDS SUMMARY | 2023-10-17 15:14 | XMS_ITS | Encounter Summary ---
[place] [address] Care Team Providers Care Mottler Operator Name Role Phone Molina Herr MD Primary Care Provider Reason for Visit * Reason Comments Back And Neck Pain Encounter Details Date Type Department Care Team (Late st Contact Info) Description 08/24/2010 2:00 PM EDT Office Visit Spine Center at [place] [phone] Carlo Lujan, PT [facility] [place] [address] Molina Herr MD [address] [place] [address] Lumbar degenerative disc disease (Primary Dx) Discharge [...] Progress Notes * Carlo Lujan, PT - 08/24/2010 2:45 PM EDT SPINE CENTER PHYSICAL THERAPY INITIAL VISIT Onset: Reaching up, twisting left, then lowering object to ground from step ladder. May 2010. Pain: Located in the low back and right buttock, intensity 3/10 at worst, symptoms are improving since onset. Associated symptoms: none. Previous episodes: no prior low back problems . Treatments this episode: Injections, medications, physical therapy, treatment for infection. Usual activities are restricted due to this problem. Limiting exercise routine and yard work. 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 Current exercise routine: Walks daily about 3/4 of a mile. Worse with: Flexion, transitional movements in bed, and sitting. Better with: walking. Gait: normal. Sensation: Light touch intact both LEs. Reflexes Right Left Patella hyporeflexic hyporeflexic Achilles absent hyporeflexic LE Strength Right Left Hip flexion 5/5 5/5 Knee extension 5/5 5/5 Dorsiflexion 5/5 5/5 Hallux extension 4/5 5/5 Plantarflexion 4/5 5/5 Posture: Flattened lordosis. Lumbar spine AROM degrees Flexion 65 Extension 15 (Right less than Left Side [place]) Repeated movement testing During, After Pre-test pain standing back Flexion standing unchanged, unchanged Extension standing unchanged, unchanged Pre-test pain lying back Flexion lying increased, unchanged Extension lying increased, unchanged (flexibility moderately limited) Other: Lower trunk rotation hook-lying knees right increased back pain, not worse. Knees left increased back pain, not worse. Assessment: Varied response to movement testing. Home exercise trial will determine how effective self care can be. Plan: Initial self care trial centered around lower trunk rotation hook-lying, prone on elbows static extension, daily walking 2 miles. Other considerations will include lateral bias, flexion, and strategies to ease back into gym routine. Recommend PT follow up in 1 week. Treatment Goals (with 4 PT sessions over 4 weeks): Allow for transitional movements in bed without pain aggravation. Increase flexion range of motion to 80 degrees. Resume independent gym routine. Independent self care. documented in this encounter Plan of Treatment Upcoming Encounters Date Type Department Care Team (Late st Contact Info) Description 10/27/2023 11:15 AM EDT Office [place] [phone] Elly Alston MD [facility] HOSPICE [place] [address] 10/27/2023 1:00 PM EDT Office Visit Speech Therapy at [place] [address] Debra Franco, MACHINE CLOTH EXAMINER 11/03/2023 2:00 PM EDT Office Visit Speech Therapy at [place] [phone] Debra Franco, MACHINE CLOTH EXAMINER 11/08/2023 2:30 PM EDT Appointment MRI at [place] [address] Navjot Grider MD [facility] [place] [address] 11/09/2023 1:45 PM EDT Office Visit Hematology and Oncology at [place] [address] Isabell Jacob MD [facility] [place] [address] 11/11/2023 10:30 AM EDT Office Visit Radiation Oncology at [place] [address] Nicki Sharpe MD [facility] [place] [address] 11/15/2023 10:00 AM EDT Office Visit Speech Therapy at [place] [phone] Debra Franco, MACHINE CLOTH EXAMINER 11/16/2023 9:00 AM EDT Office Visit Hematology and Oncology at [place] [phone] Bisi Nam 11/22/2023 10:00 AM EDT Office [place] [address] Debra Franco, ROLANDO 11/30/2023 9:00 AM EDT Office Visit Hematology [place] [address] Bisi Nam 12/14/2023 9:00 AM EDT Office Visit Hematology [place] [address] Bisi Nam 12/28/2023 9:00 AM EDT Office Visit Hematology [place] [address] Bisi Nam documented as of this encounter Visit Diagnoses Diagnosis Lumbar degenerative disc disease- Primary Degeneration of lumbar or lumbosacral intervertebral disc documented in this encounter Care Teams Mottler Operator Relationship Specialty Start Date End Date Molina Herr MD [address] [place] [address] PCP - General 01/27/10 documented as of this encounter
--- OUTSIDE RECORDS SUMMARY | 2023-10-17 15:14 | XMS_ITS | Encounter Summary ---
Author Organization [facility] [place] [address] Care Team Providers Care Top Frame Maker Name Role Phone Molina Herr MD Primary Care Provider [phone] Encounter Details Date Type Department Care Team (Latest Contact Info) Description 01/10/2013 1:26 PM EST - 01/10/2013 4:00 PM EST Hospital En[place] [id number] Dominick Son MD [facility] [place] [address] Discharge Disposition: Home Social History Tobacco Use [...] Sign Reading Time Taken Comments Blood Pressure 122/68 01/10/2013 3:45 PM EST Pulse 71 01/10/2013 3:45 PM EST Temperature - - Respiratory Rate 14 01/10/2013 3:45 PM EST Oxygen Saturation 98% 01/10/2013 3:45 PM EST Inhaled Oxygen Concentration - - Weight - - Height - - Body Mass Index - - documented in this encounter Discharge Instructions * Discharge Instructions* Blessing Gutierrez RN - 01/10/2013 4:04 PM EST Colonoscopy and polyp removal What [...] on stairs, as you may be unsteady. ?? Avoid strenuous activity for 48 to 72 hrs FOR THE NEXT 24 HRS ?? DO [...] what you choose to start with ?? A soft diet may be helpful for the next 3 days as this may help to keep your stools soft. ?? Drink plenty of fluids ( unless [...] often you need to be checked. Tuesday-Tuesday Clinic [phone] 8a-5p Same Day Endo [phone] 7a-8p Otherwise contact [phone] and ask to speak to the vp director of finance merchandise presentation manager Follow up care is a arrington part of your treatment and safety. Be sure to make and go to all appointments, and call your doctor if you are having problems. Discharge instructions reviewed with patient who expresses understanding * Patient Instructions* Dominick Son MD - 01/10/2013 3:53 PM EST Please see Recommendations in the Provation procedure report which is documented in the procedural note in [facility]. documented in this encounter Medications at Time of Discharge Medication Sig Dispensed Refills Start Date End Date [id number] (SOURCE CF) 200-10 mcg-mg Chew Take 1 [...] as of this encounter H&P Notes * Dominick Son MD - 01/10/2013 3:10 PM EST Gastroenterology and Hepatology Pre-Procedure History and Physical Exam Procedure: Colonoscopy: Indication: History of polyps Patient Active Problem List Diagnosis Code ??? 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 Lumbar degenerative disc disease 722.52 ??? Osteomyelitis 730.20 EXAM: WD WM NAD HEENT: Airway examined, oropharynx clear LUNGS: Clear to auscultation HEART: Regular rate and rhythm, normal S1, S2 ABDOMEN: Normal bowel sounds, soft, non tender, non distended, A/P Proceed with the planned endoscopic procedure. Risks and benefits of the procedure explained to the patient. Consent signed. documented in this encounter Miscellaneous Notes * Miscellaneous - Provider, Scanning - 01/10/2013 5:05 PM EST * OR Attestation - Dominick Son MD - 01/10/2013 3:53 PM EST Attestation: Case Date: 01/10/2013 I performed this procedure without the involvement of a resident. DOMINICK SON MD 01/10/2013 documented in this encounter Plan of Treatment Upcoming Encounters Date Type Department Care Team (Late st Contact Info) Description 10/27/2023 11:15 AM EDT Office [place] [address] Elly Alston MD [facility] HOSPICE [place] [address] 10/27/2023 1:00 PM EDT Office [place] [address] Debra Franco, CARPET INSTALLATION SPECIALIST 11/03/2023 2:00 PM EDT Office [place] [address] Debra Franco, CARPET INSTALLATION SPECIALIST 11/08/2023 2:30 PM EDT Appointment MRI at [address] Navjot Grider MD [facility] [address] [place] [address] 11/09/2023 1:45 PM EDT Office Visit Hematology and Oncology at [place] [phone] Isabell Jacob MD [facility] [place] [address] 11/11/2023 10:30 AM EDT Office Visit Radiation Oncology at [place] [phone] Nicki Sharpe MD [facility] [place] [address] 11/15/2023 10:00 AM EDT Office [place] [address] Debra Franco, ROLANDO 11/16/2023 9:00 AM EDT Office Visit Hematology [place] [address] Bisi Nam 11/22/2023 10:00 AM EDT Office [place] [address] Debra Franco, ROLANDO 11/30/2023 9:00 AM EDT Office Visit H[place]ology [place] [address] Bisi Nam 12/14/2023 9:00 AM EDT Office Visit [place]ology [place] [address] Cyril Bisi W 12/28/2023 9:00 AM EDT Office Visit [place] [address] [place] Namjoyce Servin documented as of this encounter Procedures Procedure Name Priority Date/Time Associated Diagnosis Comments SURGICAL PATHOLOGY REPORT Routine 01/10/2013 3:55 PM EST SPECIMEN TO PATHOLOGY Routine 01/10/2013 3:55 PM EST COLONOSCOPY FLEXIBLE, WITH BX (WRVU 3.56) 01/10/2013 3:16 PM EST Recommendation: - Repeat colonoscopy in 5 years for surveillance. COLONOSCOPY Routine 01/10/2013 2:59 PM EST documented in this encounter Results * Surgical Pathology Report (01/10/2013 3:55 PM EST) Surgical Pathology Report ? [facility] ? Provider: ?? DOMINICK SON ?Pt. Name: ?? PERFECTO POLK X ? Acc #: ?[id number] ?Pt. ? Col Date: ?? 01/10/2013 ? /Sex: ?1940,(72 years),Male ? Rec Date: ?? 01/10/2013 ? LOC: ?4T ? SURGICAL PATHOLOGY ? ---Pathologic Diagnosis--- ? Rectum, polypectomy: ?Hyperplastic polyp. ? CR-0, CR-PX ? 01/11/13 ? AJE ? 01/11/13 Verified by: ? Ruben Goncalves MD ? Pathologist ? (Electronic Signature) ? The attending pathologist whose signature appears on this report has ? reviewed all diagnostic slides and has edited the gross and/or ? microscopic portion of the report in rendering the final pathologic ? diagnosis. ? ---Microscopic Description--- ? Slides reviewed, microscopic description not recorded. ? ---Gross Description--- ? A - Labeled/Fixativ e: Rectum, formalin. ? Quantity/Size: Two, 0.2 cm. ? Tissue Description: Soft peraza tissues. ? Sections/Proces sing: (T1) ??pps ? ---Clinical Information--- ? Specimen Submitted: ? A - Rectum ? Clinical History: ? Polyps ? Clinical Diagnosis: ? Same [facility] 01/10/2013 3:55 PM EST Dominick Son MD PATHOLOGY/CYTOLOGY O [place] Performing Organization Address [facility] de Phone Number [facility] * Specimen to Pathology (surgical or derm) (01/10/2013 3:55 PM EST) AP Specimen 01/10/2013 3:55 PM EST 01/10/2013 3:55 PM EST Narrative [facility] - 01/10/2013 3:55 PM EST Specimen requisition ordered. ??Separate Pathology report to follow Dominick Son MD PATHOLOGY/CYTOLOGY O [place] Performing Organization Address [facility] de Phone Number [facility] * COLONOSCOPY (01/10/2013 2:59 PM EST) COLONOSCOPY [facility] Endoscopy Patient Name: Perfecto Polk ? Procedure Date: 01/10/2013 2:59 PM ? Date of : 1940 ? Age: 72 ? Order #: [id number] ? Procedure: ? Colonoscopy Indications: ? High risk colon cancer surveillance: ? Personal history of colonic polyps Providers: ? Dominick Son MD, Osiris Dixon, ? RN, Davida Holt, Irrigation District Manager Referring : ?Molina Herr MD Medicines: ? Midazolam 4 mg IV, Fentanyl 200 ? micrograms IV Complications: ? No immediate complications. Procedure: ? Pre-Anesthesia Assessment: ? - Prior to the procedure, a History ? and Physical was performed, and ? patient medications and allergies ? were reviewed. The patient is ? competent. The risks and benefits of ? the procedure and the sedation ? options and risks were discussed with ? the patient. All questions were ? answered and informed consent was ? obtained. Patient identification and ? proposed procedure were verified by ? the physician and the nurse in the ? pre-procedure area. Mental Status ? Examination: alert and oriented. ? Airway Examination: normal ? oropharyngeal airway and neck ? mobility. Respiratory Examination: ? clear to auscultation. CV ? Examination: normal. Prophylactic ? Antibiotics: The patient does not ? require prophylactic antibiotics. ? Prior Anticoagulants: The patient has ? taken aspirin, last dose was 1 day ? prior to procedure. ASA Grade ? Assessment: II - A patient with mild ? systemic disease. After reviewing the ? risks and benefits, the patient was ? deemed in satisfactory condition to ? undergo the procedure. The anesthesia ? plan was to use moderate sedation / ? analgesia (conscious sedation). ? Immediately prior to administration ? of medications, the patient was ? re-assessed for adequacy to receive ? sedatives. The heart rate, ? respiratory rate, oxygen saturations, ? blood pressure, adequacy of pulmonary ? ventilation, and response to care ? were monitored throughout the ? procedure. The physical status of the ? patient was re-assessed after the ? procedure. ? The procedure, indications, benefits, ? risks [...] was withdrawn. The ? colonoscopy was performed with ? moderate difficulty due to ? significant looping and a tortuous ? colon. Successful completion of the ? procedure was aided by increasing the ? dose of sedation medication. The ? patient tolerated the procedure well. ? The quality of the bowel preparation ? was good. Scope withdrawal time was ? 16 minutes. ? Findings: ? The digital rectal exam was abnormal. Findings ? include an asymmetrically enlarged prostate (R>L). ? Pertinent negatives include normal sphincter tone. ? Two benign appearing pale, sessile polyps were found ? in the rectum. The polyps were 2 to 3 mm in size. ? These polyps were removed with a cold biopsy forceps. ? Resection and retrieval were complete. ? The terminal ileum appeared normal. ? The exam was otherwise without abnormality. ? Impression: ?- Enlarged prostate found on digital ? rectal exam. ? - Two benign appearing 2 to 3 mm ? polyps in the rectum. Resected and ? retrieved. ? - The examined portion of the ileum ? was normal. ? - The examination was otherwise ? normal. Recommendation: ?- Repeat colonoscopy in 5 years for ? surveillance. ? Procedure Code(s): ?? --- Professional --- ? 69934, Colonoscopy, flexible, ? proximal to splenic flexure; with ? biopsy, single or multiple Diagnosis Code(s): ?? --- Professional --- ? 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 --- Technical --- ? 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 anal canal CPT (R) 2012 [employer]. All Rights Reserved. The codes documented in this report are preliminary and upon custom dressmaker review may be revised to meet current compliance requirements. Dominick Son MD 01/10/2013 3:57 PM This report has been signed electronically. Number of Addenda: 0 Note Initiated On: 01/10/2013 2:59 PM PROVATION 01/10/2013 2:59 PM EST Molina Herr MD GENERAL SURGICAL ORD ERABLES Performing Organization Address City/State/[facility] Co de Phone Number PROVATION documented in this encounter Visit Diagnoses Not on filedocumented in this encounter Active and Recently Administered Medications Times are shown in EST. PRN Medication Order 01/08/2013 01/09/2013 01/10/2013 fentaNYL 50mcg/mL injection (CANCELED) ONCE PRN, Starting on Tue01/10/13 at 1521, Until Tue01/10/13 at 1903, Pain, Intra-Operative (Intra-Procedure), Routine 1521 (Given - Provid er: Osiris Dixon RN)1523 (Given - Provider: Osiris Dixon RN)1535 (Given - Provider: Osiris Dixon RN) midazolam (VERSED) injection (CANCELED) ONCE PRN, Starting on Tue01/10/13 at 1521, Until Tue01/10/13 at 1903, Sleep, Intra-Operative (Intra-Procedure), Routine 1521 (Given - Provid er: Osiris Dixon, OSCAR)1523 (Given - Provider: Osiris Dixon RN)1526 (Given - Provider: Osiris Dixon RN)1535 (Given - Provider: Osiris Dixon RN) documented in this encounter Care Teams Top Frame Maker Relationship Specialty Start Date End Date Molina Herr MD [facility] [phone] [place] [address] PCP - General 01/27/10 documented as of this encounter
--- OUTSIDE RECORDS SUMMARY | 2023-10-17 15:14 | XMS_ITS | Encounter Summary ---
[place] [address] Care Team Providers Care Locator Specialist Name Role Phone Molina Herr MD Primary Care Provider Reason for Referral * Surgical (Routine) - Closed Specialty Diagnoses / Procedures Referred By Contac t Referred To Contact Orthopaedic Surgery / Orthopaedics Diagnoses Osteomyelitis of spine Grace Randhawa MD [facility] [place] [address] [facility] [place] [address] [place] [address] Referral ID Status Reason Start Date Expiration Date V isits Requested Visits Authorized [id number] Closed Consult, Test & Treat 08/17/2010 02/13/2011 1 1 Reason for Visit * Reason Comments Low Back Pain Encounter Details Date Type Department Care Team (Latest Contact Info) Description 08/17/2010 8:45 AM EDT Office [place] [address] Grace Randhawa MD [facility] [place] [address] Osteomyelitis (Primary Dx); Osteomyelitis of spine Discharge Disposition: Home Social History Tobacco Use [...] Sign Reading Time Taken Comments Blood Pressure 113/80 08/17/2010 8:45 AM EDT Pulse 115 08/17/2010 8:45 AM EDT Temperature 37 ??C (98.6 ??F) 08/17/2010 8:45 AM EDT Respiratory Rate 14 08/17/2010 8:45 AM EDT Oxygen Saturation 98% 08/17/2010 8:45 AM EDT Inhaled Oxygen Concentration - - Weight 71.7 kg (158 lb) 08/17/2010 8:45 AM EDT Height - - Body Mass Index - - documented in this encounter Progress Notes * Grace Randhawa MD - 08/17/2010 9:32 AM EDT Subjective: Patient ID: Perfecto Polk is a 69 y.o. male. 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 The patient was in his usual state of good health until May when he was on way to [place] for a vacation when he sustained a back injury while lifting a heavy object. He saw a physician in [place] as he was experiencing bad muscle spasms. He saw an orthopedist there and had negative xray, and was prescribed oxycodone which helped the pain. He returned to [place] and 06/[address] Young his pcp. He was Rx physical therapy, however this worsened his pain. He was experincing piercing pain from right hip to groin area which was debilitating. He stopped PT (had total of 2 weeks). With continued pain, he had MRI scan on 07/13, which shown changes c/w osteo L1-2. He was started on levaquin on 07/14. He states the pain has improved remarkably since then. On 08/[address] guided bone bx (sent for bacterial culture--neg, fungal stain/culture--neg, pathology--neg for osteo or malignancy). Currently, he is feeling much better. The remaining symptom is pain across his mid lower back to the left of midline, and he has some pain bending over, and when sitting for a long time. Otherwise, the shooting and other most bothersome complaints have improved. He has had weight loss of 12-15lbs over past 2.5mo. He doesn't recall fevers. He does recall a evening where he was having shaking chills following his back injury in [place], this happened only once. His appetite and energy have been good. He denies any illness prior to falling ill with back pain--no urinary, resp or GI illnesses then or now. He has been on levaquin for about a month now, and is tolerating well without any sideeffects. 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 Eyes: Negative. Respiratory: Negative. Cardiovascular: Negative. Gastrointestinal: Negative. Genitourinary: Negative. Negative for frequency. Musculoskeletal: See HPI Skin: Negative. Neurological: Negative for dizziness, weakness, light-headedness, numbness and headaches. Hematological: Negative. Objective: Physical Exam Constitutional: No distress. HENT: Head: Normocephalic and atraumatic. Mouth/Throat: No oropharyngeal exudate. Eyes: Conjunctivae and EOM are normal. Pupils are equal, round, and reactive to light. No scleral icterus. Neck: Normal range of motion. Neck supple. Cardiovascular: Normal rate, regular rhythm and normal heart sounds. Exam reveals no gallop and no friction rub. No murmur heard. Pulmonary/Chest: Effort normal and breath sounds normal. No respiratory distress. He has no wheezes. He has no rales. Abdominal: Soft. Bowel sounds are normal. He exhibits no distension. No tenderness. Musculoskeletal: Localizes tenderness to left paraspinal. No spinal tenderness. Good strength in lower extr and sensation intact. Lymphadenopathy: He has no cervical adenopathy. Skin: Skin is warm and dry. No erythema. Labs in eDH reviewed ESR has decreased 59 to 24 Cultures, pathology negative Imaging is scanned in, reviewed Assessment and Plan: 69M previously healthy with acute onset back pain after mechanical injury, worsened over time, and imaging is concerning for osteo. bx has been done though after antibiotics for a good amount of time. Path negative for malignancy. Its possible the trauma area was seeded by infection (?transient bacteremia, he did have episode of rigor in [place]). No real clear source comes to light. His ROS for concurrent source of illness is not revealing--no urinary or GI symptoms to make one think he had ongoinginfection there. Etiology seems likely bacterial, he has had improvement on abx, cultures from bx negative maybe due to prior abx. Also consider TB though he has not had significant exposure ([facility] [place] [facility] this was not tested for in bx specimen. Also consider bartonella --he does have exposure to cat at his daughter's place. Will send quantiferon gold for indication of prior exposure to MTB, and also send bartonella serology. He is a month into abx now and ESR has decreased significantly which is a good sign. Will send CRP as well, which will be useful to follow over time. Will ask him to continue levaquin for at least 6 weeks, repeat labs in weekly again (ESR, CRP) to get idea of whether further improvement. I also made referral to orthopedics to give opinion on spine and its stability as he would like to become more active and consider PT again. --continue levaquin, at least 2 more weeks --check weekly ESR, CRP for continued improvements --today ESR, crp, quantiferon, bartonella serology --ortho referral. No problem-specific visit notes found for this encounter. documented in this encounter Plan of Treatment Upcoming Encounters Date Type Department Care Team (Late st Contact Info) Description 10/27/2023 11:15 AM EDT Office [place] [address] Elly Alston MD [facility] DR HOSPICE AND [place] [address] 10/27/2023 1:00 PM EDT Office Visit Speech Therapy at [address] Debra Franco, CEMENT RAILROAD CAR LOADER 11/03/2023 2:00 PM EDT Office Visit Speech Therapy at [place] [phone] Debra Franco, CEMENT RAILROAD CAR LOADER 11/08/2023 2:30 PM EDT Appointment MRI at [address] Navjot Grider MD [facility] [address] [place] [address] 11/09/2023 1:45 PM EDT Office Visit Hematology and Oncology at [place] [address] Isabell Jacob MD [facility] [address] 11/11/2023 10:30 AM EDT Office Visit Radiation Oncology at [place] [address] Nicki Sharpe MD [facility] [place] [address] 11/15/2023 10:00 AM EDT Office Visit Speech Therapy at [place] [phone] Debra Franco, CEMENT RAILROAD CAR LOADER 11/16/2023 9:00 AM EDT Office Visit Hematology and Oncology at [place] [phone] Bisi Nam 11/22/2023 10:00 AM EDT Office Visit Speech Therapy at [place] [phone] Debra Franco, CEMENT RAILROAD CAR LOADER 11/30/2023 9:00 AM EDT Office Visit Hematology [place] [address] Bisi Nam 12/14/2023 9:00 AM EDT Office Visit Hematology [place] [address] Bisi Nam 12/28/2023 9:00 AM EDT Office Visit H[place] [address] Bisi Nam Scheduled Referrals Name Type Priority Associated Diagnoses Orde r Schedule Orthopedic Surgery Outpatient Referral Routine Osteomyelitis of spine Ordered: 08/17/2010 documented as of this encounter Procedures Procedure Name Priority Date/Time Associated Diagnosis Comments QUANTIFERON-TB GOLD Routine 08/17/2010 1 0:09 AM EDT Osteomyelitis BARTONELLA ANTIBODY PANEL Routine 08/17/2010 10:09 AM EDT Osteomyelitis SEDIMENTATION RATE Routine 08/17/2010 10 :09 AM EDT Osteomyelitis CRP, CARDIAC RISK (HS CRP) Routine 08/17/2010 10:09 AM EDT Osteomyelitis documented in this encounter Results * (ABNORMAL) Sedimentation rate, automated (08/17/2010 10:09 AM EDT) Sedimentation Rate Automated 24(H) 0 - 15 mm/hr [facility] Blood specimen (specimen) 08/17/2010 10:09 AM EDT 08/17/2010 10:23 AM EDT Grace Randhawa MD HEMATOLOGY ORDERABLE S [facility] * High sensitivity CRP (08/17/2010 10:09 AM EDT) C-Reactive Protein High Sensitivity 3.7 mg/L [facility] Comment: Interpretations: 1) For cardiac risk [...] prevention. ??Circulation 2003; 107:[id number] Blood specimen (specimen) 08/17/2010 10:09 AM EDT 08/17/2010 10:23 AM EDT Grace Randhawa MD CHEMISTRY ORDERABLES Performing Organization Address City/State/[facility] [place] Phone Number [facility] * Bartonella Antibody Panel (08/17/2010 10:09 AM EDT) Bartonella Ab Panel (MAY) ? HI ? Expected Test ? Result ?LO ??Units ??Values ------ Bartonella Ab Panel, IgG and IgM ??Harvey Henselae IgG ?<1:128 ?titer ??<1:128 Analyte Specific Reagent This test was developed and its performance characteristics determined by [facility] Medicine [facility] Pathology, [facility]. It has not been cleared or approved by the U.S. Food and Drug Administration. ??Harvey Henselae IgM ?<1:20 ? titer ??<1:20 Analyte Specific Reagent This test was developed and its performance characteristics determined by [facility], [facility]. It has not been cleared or approved by the U.S. Food and Drug Administration. ??Harvey Echeverria IgG ?<1:128 ?titer ??<1:128 Analyte Specific Reagent This test was developed and its performance characteristics determined by [facility], [facility]. It has not been cleared or approved by the U.S. Food and Drug Administration. ??Harvey Echeverria IgM ?<1:20 ? titer ??<1:20 Analyte Specific Reagent This test was developed and its performance characteristics determined by [facility], [facility]. It has not been cleared or approved by the U.S. Food and Drug Administration. Test Performed by: [facility] Dpt of Lab Med and Pathology [address] [place] [address] Forest Firefighter: Mauricio Singletary III, M.D. [facility] Blood specimen (specimen) 08/17/2010 10:09 AM EDT 08/17/2010 12:10 PM EDT Grace Randhawa MD LAB SEND OUT ORDERAB LES [facility] [employer] * QuantiFERON-TB Gold (08/17/2010 10:09 AM EDT) Quantiferon-TB Gold Positive Negative [facility] Comment: M. tuberculosis (TB) infection likely A positive QuantiFERON-TB Gold IT result should be followed by further medical evaluation for active tuberculosis disease, (e.g., acid fast bacilli (AFB) smear and culture, chest x-ray) A positive QuantiFERON-TB Gold IT result can suggest and support the diagnosis of tuberculosis disease. ESAT-6, CFP-10 and TB7.7 are present in M. tuberculosis, but infections by other mycobacteria, including M. kansasii, M. szulgai, and M. marinum may also cause positive results. The performance of the QuantiFERON-TB Gold IT test has not been extensively evaluated with specimens from the following groups of individuals: 1. Individuals who have impaired or altered immune function such as those who have HIV infection or AIDS, those who have transplantation managed with immunosuppressive treatment or others who receive immunosuppressive drugs (e.g., corticosteroids, methotrexate, azathioprine, cancer chemotherapy), and those who have other clinical conditions: diabetes, silicosis, chronic renal failure, hematological disorders (e.g., leukemia and lymphomas), and other specific malignancies (e.g., carcinoma of the head or neck and lung). 2. Individuals younger than age 17 years. 3. women. As of 07-14-09 the QuantiFERON-TB Gold IT assay will be performed in the [facility] Reference Lab. Please call , press 4; with questions. Blood specimen (specimen) 08/17/2010 10:09 AM EDT 08/18/2010 8:19 AM EDT Grace Randhawa MD CHEMISTRY ORDERABLES [facility] documented in this encounter Visit Diagnoses Diagnosis Osteomyelitis- Primary Unspecified osteomyelitis, site unspecified Osteomyelitis of spine Unspecified osteomyelitis, other specified site documented in this encounter Care Teams Locator Specialist Relationship Specialty Start Date End Date Molina Herr MD [address] [place] [id number] PCP - General 01/27/10 documented as of this encounter
--- OUTSIDE RECORDS SUMMARY | 2023-10-17 15:14 | XMS_ITS | Encounter Summary ---
Author Organization [facility] [address] Care Team Providers Care Washhouse Hand Name Role Phone Molina Herr MD Primary Care Provider [phone] Encounter Details Date Type Department Care Team (Latest Contact Info) Description 11/30/2011 12:05 PM EDT - 11/30/2011 11:59 PM EDT Hospital [place] [id number] Molina Herr MD [address] [place] [address] Discharge Disposition: Home Social History Tobacco Use [...] Sig Dispensed Refills Start Date End Date [id number] (SOURCE CF) 200-10 mcg-mg Chew Take 1 [...] AM EDT Office Visit Palliative Medicine at [place] [address] Elly Alston MD [facility] HOSPICE AND P[place]IATIVE [place] [address] 10/27/2023 1:00 PM EDT Office Visit Speech Therapy at [place] [address] Debra Franco, LEAD SECTION SUPERVISOR 11/03/2023 2:00 PM EDT Office Visit Speech Therapy at [place] [address] Debra Franco, LEAD SECTION SUPERVISOR 11/08/2023 2:30 PM EDT Appointment MRI at [place] [address] Navjot Grider MD [facility] DR HEMATOLOGY [place] [address] 11/09/2023 1:45 PM EDT Office Visit Hematology and Oncology at [place] [address] Isabell Jacob MD [facility] [place] [address] 11/11/2023 10:30 AM EDT Office Visit Radiation Oncology at [place] [address] Nicki Sharpe MD [facility] DR [place] [address] 11/15/2023 10:00 AM EDT Office Visit Speech Therapy [place] [place] [address] Debra Franco, LEAD SECTION SUPERVISOR 11/16/2023 9:00 AM EDT Office Visit Hematology [place] [place] [address] Bisi Nam 11/22/2023 10:00 AM EDT Office Visit Speech Therapy [place] [facility] [place] [address] Debra Franco, LEAD SECTION SUPERVISOR 11/30/2023 9:00 AM EDT Office Visit Hematology [place]cology [place] [facility] [place] [address] Bisi Nam 12/14/2023 9:00 AM EDT Office Visit Hematology and [place]cology [place] [place] [address] Bisi Nam 12/28/2023 9:00 AM EDT Office Visit Hematology [place] [place] [address] Bisi Nam documented as of this encounter Procedures Procedure Name Priority Date/Time Associated Diagnosis Comments DIFFERENTIAL, AUTOMATED Routine 11/30/2011 8:08 AM EDT GOLD TUBE HOLD Routine 11/30/2011 8:08 AM EDT CBC (WITH DIFF) Routine 11/30/2011 8:08 AM EDT TSH Routine 11/30/2011 8:08 AM EDT PSA (ULTRASENSITIVE) Routine 11/30/2011 8:08 AM EDT LDL CHOLESTEROL, DIRECT Routine 11/30/2011 8:08 AM EDT COMPREHENSIVE METABOLIC PANEL Routine 11/30/2011 8:08 AM EDT documented in this encounter Results * DIFFERENTIAL, AUTOMATED (11/30/2011 8:08 AM EDT) Neutrophil % 51.8 34.0 - 71.0 % CERNER MILLENNIUM Neutrophil Absolute 2.33 1.50 - 6.30 x10(3)/mcL [facility]ERN[facility] MILLENNIUM Lymph % 33.2 19.0 - 53.0 % CERNER MILLENNIUM Lymphocytes Abs 1.5 1.0 - 3.6 x10(3)/mcL CERNER MILLENNIUM Monocyte % 9.4 4.0 - 13.0 % CERNER MILLENNIUM Monocyte Abs 0.4 0.2 - 1.0 x10(3)/mcL CERNER MILLENNIUM Eos % 4.7 0.0 - 7.0 % CERNER MILLENNIUM Eosinophils Abs 0.2 0.0 - 0.5 x10(3)/mcL CERNER MILLENNIUM Basophil % 0.7 0.0 - 2.0 % CERNER MILLENNIUM Baso [...] x10(3)/mcL [facility] Blood specimen (specimen) 11/30/2011 8:08 AM EDT 11/30/2011 12:08 PM EDT Molina Herr MD HEMATOLOGY ORDERABLE S [facility] * GOLD TUBE HOLD (11/30/2011 8:08 AM EDT) Gold Hold Sample in lab. [facility]YSON[facility] Blood specimen (specimen) 11/30/2011 8:08 AM EDT 11/30/2011 12:09 PM EDT Molina Herr MD CHEMISTRY ORDERABLES [facility] * PSA (11/30/2011 8:08 AM EDT) Prostate Specific Antigen (Ultrasensitiv e) 1.23 0.00 - 4.00 ng/mL CERNER ADELAIDEENNIUM Blood specimen (specimen) 11/30/2011 8:08 AM EDT 11/30/2011 12:07 PM EDT Narrative Resulting Agency Comment Spec In Lab Molina Herr MD CHEMISTRY ORDERABLES Performing Organization Address [facility] Co de Phone Number MARCO A ROQUEIUM * (ABNORMAL) TSH (11/30/2011 8:08 AM EDT) Thyroid Stimulating Hormone 4.46(H) 0.27 - 4.20 mcIU/mL CERDANIELLE BRYSONENNIUM Blood specimen (specimen) 11/30/2011 8:08 AM EDT 11/30/2011 12:07 PM EDT Narrative Resulting Agency Comment Spec In Lab Molina Herr MD CHEMISTRY ORDERABLES Performing Organization Address [facility] de Phone Number MARCO A ROQUEIUM * (ABNORMAL) CBC (WITH DIFF) (11/30/2011 8:08 AM EDT) White Blood Cell 4.5 4.0 - 10.0 x10(3)/mc L CERNER MILLENNIUM Red Blood Cell 4.60(L) 4.63 - 6.08 x10(6)/mc L CERNER MILLENNIUM Hemoglobin 12.9(L) 13.7 - 17.5 gm/dL CERNER MILLENNIUM Hematocrit 40.1 40.0 - 51.0 % CERNER MILLENNIUM Mean Cell Volume 87.2 79.0 - 92.0 fL CERNER MILLENNIUM Mean Cell Hemoglobin 28.0 25.6 - 32.2 pg CERNER MILLENNIUM Mean Cell Hemoglobin Concentration 32.2 32.0 - 36.5 gm/dL CERNER MILLENNIUM Platelet 256 145 - 370 x10(3)/mc L [facility] RDW Standard Deviation 45.7 35.0 - 46.0 fL [facility] RDW coefficient of variation 14.5(H) 10.9 - 14.4 % [facility] Mean Platelet Volume 10.0 9.0 - 12.0 fL [facility] Blood specimen (specimen) 11/30/2011 8:08 AM EDT 11/30/2011 12:08 PM EDT Narrative Resulting Agency Comment Spec In Lab Molina Herr MD HEMATOLOGY ORDERABLE S Performing Organization Address [facility] de Phone Number [facility] * LDL CHOLESTEROL, DIRECT (11/30/2011 8:08 AM EDT) LDL Cholesterol, Direct 93 <=99 mg/dL [facility] Comment: The National Cholesterol Education Program (NCEP) has set the following guidelines for LDL Cholesterol: Reference range: ?? Optimal: ?<100 mg/dL ?? Near Optimal/Above Optimal: ?? 100-129 mg/dL ?? Borderline high: ?130-159 mg/dL ?? High: ? 160-189 mg/dL ?? Very high: ?>rt=324 mg/dL NEYMAR 2001: 285(19):[phone] Blood specimen (specimen) 11/30/2011 8:08 AM EDT 11/30/2011 12:07 PM EDT Narrative Resulting Agency Comment Spec In Lab Molina Herr MD CHEMISTRY ORDERABLES Performing Organization Address [facility] de Phone Number [facility] * (ABNORMAL) COMPREHENSIVE METABOLIC PANEL (NON-FASTING) (11/30/2011 8:08 AM EDT) Glucose 99 60 - 199 mg/dL [facility] MILLENNIUM Comment:Diabetes: >=200 mg/d L plus symptoms Blood Urea Nitrogen 20 10 - 20 mg/dL CERNER MILLENNIUM Creatinine 1.21 0.80 - 1.50 mg/dL [facility]ERN[facility] MILLENNIUM Comment: Please note that the pediatric reference intervals supplied above were not validated at [facility]. Results from pediatric patients should be interpreted in conjunction to the patient's age, height and muscle mass. Sodium 139 135 - 145 mmol/L CERN[facility] MILLENNIUM Potassium 4.2 3.5 - 5.0 mmol/L [facility] MILLENNIUM Comment: Please note: ??Patients with WBC >100,000 may have falsely elevated Potassium levels. ??For accurate Potassium quantification in these patients send serum separator tube (gold top) for subsequent determinations. ??Contact the Clinical Chemistry Laboratory if there are any questions. Chloride 104 98 - 107 mmol/L CERNER MILLENNIUM Carbon Dioxide 28 22 - 31 mmol/L CERNER MILLENNIUM Anion Gap 7 5 - 15 mmol/L CERN[facility] MILLENNIUM Calcium 9.3 8.5 - 10.5 mg/dL CERNER MILLENNIUM Protein, Total 6.8 6.4 - 8.3 gm/dL CERNER MILLENNIUM Albumin 3.9 3.2 - 5.2 gm/dL CERNER MILLENNIUM Aspartate Aminotransferase 23 0 - 39 unit/L CERNER MILLENNIUM Alanine Aminotransferase 11 0 - 55 unit/L CERNER MILLENNIUM Alkaline Phosphatase 53 40 - 120 unit/L CERNER MILLENNIUM Bilirubin, Total 0.4 0.2 - 1.3 mg/dL CERNER MILLENNIUM Bilirubin, Direct <0.1 0.0 - 0.3 mg/dL CERNER MILLENNIUM Est Glomerular Filtration Rate 59(L) >=60 CERNER MILLENNIUM Comment: The National Kidney Disease Education Program (NKDEP) has recommended all laboratories report estimated GFR (eGFR) along with plasma creatinine measurements to assist you with recognition of early kidney disease. Caveats: ??Plasma creatinine should be at steady-state (unchanged within the past week). For patients multiply eGFR by 1.2. The MDRD equation was developed using patients between the ages of 18 and 70 years. ?? The MDRD equation has not been validated for patients < 18 years of age and should not be used to assess renal function in the pediatric population. ??The MDRD eGFR equation will also overestimate the true GFR of patients above the age of 70. ??This overestimation is variable but increases with age. At present, NKDEP does NOT recommend using [...] with diabetic kidney disease. References: http://nkdep.nih.gov/resources/NKDEP_Suggestn4Labs_0606_508.pdf http://www.kidney.org/professionals/kls/pdf/faq_gfr.pdf Alber K, Gosia NA, Karen AK, Sarthak TS, Jan AD, Joke BIGG. Relative performance of the MDRD and CKD-EPI equations for estimating glomerular filtration rate among patients with varied clinical presentations. Clin J Am Soc Nephrol;6:1963-72. Blood specimen (specimen) 11/30/2011 8:08 AM EDT 11/30/2011 12:07 PM EDT Narrative Resulting Agency Comment Spec In Lab Molina Herr MD CHEMISTRY ORDERABLES [facility] documented in this encounter Visit Diagnoses Not on filedocumented in this encounter Care Teams Washhouse Hand Relationship Specialty Start Date End Date Molina Herr MD [address] [place] [address] PCP - General 01/27/10 documented as of this encounter
--- OUTSIDE RECORDS SUMMARY | 2023-10-17 15:14 | XMS_ITS | Encounter Summary ---
Author Organization [facility] [place] [address] Care Team Providers Care Mobile Mechanic Name Role Phone Molina Herr MD Primary Care Provider [phone] Encounter Details Date Type Department Care Team (Latest Contact Info) Description 12/03/2013 10:38 AM EDT - 12/03/2013 11:59 PM EDT Hospital [place] [address] Molina Herr MD [facility] [address] [place] [address] Discharge Disposition: Home Social History Tobacco Use [...] Sig Dispensed Refills Start Date End Date [id number]-[id number] (SOURCE CF) 200-10 mcg-mg Chew Take 1 [...] Office Visit Palliative Medicine at [place] [address] Elly Alston MD [facility] HOSPICE [place] [address] 10/27/2023 1:00 PM EDT Office Visit Speech Therapy at [place] [address] Debra Franco, FREELANCE OPERATOR 11/03/2023 2:00 PM EDT Office Visit Speech Therapy at [place] [phone] Debra Franco, FREELANCE OPERATOR 11/08/2023 2:30 PM EDT Appointment MRI at [place] [address] Navjot Grider MD [facility] [place] [address] 11/09/2023 1:45 PM EDT Office Visit Hematology and Oncology at [place] [address] Isabell Jacob MD [facility] [place] [address] 11/11/2023 10:30 AM EDT Office Visit Radiation Oncology at [place] [address] Nicki Sharpe MD [facility] [place] [address] 11/15/2023 10:00 AM EDT Office [place] [address] Debra Franco, FREELANCE OPERATOR 11/16/2023 9:00 AM EDT Office Visit Hematology [place] [address] Bisi Nam 11/22/2023 10:00 AM EDT Office [place] [address] Debra Franco, FREELANCE OPERATOR 11/30/2023 9:00 AM EDT Office Visit Hematology [place] [address] Bisi Nam 12/14/2023 9:00 AM EDT Office Visit Hematology [place] [address] Bisi Nam 12/28/2023 9:00 AM EDT Office Visit Hematology [place] [address] Bisi Nam documented as of this encounter Procedures Procedure Name Priority Date/Time Associated Diagnosis Comments HEMOGRAM Routine 12/03/2013 7:54 AM EDT DIFFERENTIAL, AUTOMATED Routine 12/03/2013 7:54 AM EDT GOLD TUBE HOLD Routine 12/03/2013 7:54 AM EDT TSH Routine 12/03/2013 7:54 AM EDT T4, FREE Routine 12/03/2013 7:54 AM EDT PSA (ULTRASENSITIVE) Routine 12/03/2013 7:54 AM EDT LDL CHOLESTEROL, DIRECT Routine 12/03/2013 7:54 AM EDT HEMOGLOBIN A1C Routine 12/03/2013 7:54 AM EDT LIPID PANEL (REFLEX DIRECT LDL) Routine 12/03/2013 7:54 AM EDT COMPREHENSIVE METABOLIC PANEL Routine 12/03/2013 7:54 AM EDT documented in this encounter Results * Gold Tube HOLD (12/03/2013 7:54 AM EDT) Gold Hold Sample in lab. MARCO A ROQUEIUM Blood specimen (specimen) 12/03/2013 7:54 AM EDT 12/03/2013 11:04 AM EDT Molina Herr MD CHEMISTRY ORDERABLES Performing Organization Address [facility] Co de Phone Number MARCO A ROQUEIUM * PSA (12/03/2013 7:54 AM EDT) Prostate Specific Antigen (Ultrasensitiv e) 1.00 0.00 - 4.00 ng/mL MARCO A ROQUEIUM Blood specimen (specimen) 12/03/2013 7:54 AM EDT 12/03/2013 11:01 AM EDT Narrative Resulting Agency Comment Spec In Lab Molina Herr MD CHEMISTRY ORDERABLES Performing Organization Address City/[facility] Co de Phone Number MARCO A ROQUEIUM * TSH (12/03/2013 7:54 AM EDT) Thyroid Stimulating Hormone 3.49 0.27 - 4.20 mcIU/mL MARCO A ROQUEIUM Blood specimen (specimen) 12/03/2013 7:54 AM EDT 12/03/2013 11:01 AM EDT Narrative Resulting Agency Comment Spec In Lab Molina Herr MD CHEMISTRY ORDERABLES Performing Organization Address City/[facility] Co de Phone Number MARCO A ROQUEIUM * T4, free (12/03/2013 7:54 AM EDT) Free T4 1.28 0.90 - 1.60 ng/dL MARCO A WOLF Blood specimen (specimen) 12/03/2013 7:54 AM EDT 12/03/2013 11:01 AM EDT Narrative Resulting Agency Comment Spec In Lab Molina Herr MD CHEMISTRY ORDERABLES MARCO A WOLF * (ABNORMAL) Hemoglobin A1c (12/03/2013 7:54 AM EDT) Hemoglobin A1c 5.9(H) <=5.6 % ANNALISE WOLF Comment: Reference Range: 4.3 ? 5.6% 5.7 ? 6.4% - Increased Risk of Developing Diabetes Mellitus 6.5% - Consistent with diagnosis of Diabetes Mellitus In the absence of hyperglycemia (i.e. plasma glucose > 200 mg/dL) or classic symptoms of hyperglycemia a repeat measurement of HbA1c should be performed on a separate sample to confirm the diagnosis. Diagnosis and Classification of Diabetes Mellitus, Diabetes Care 2013; 36: Suppl. 1, L92-50 Estimated Average Glucose See note mg/dL MARCO A WOLF Comment: Estimated Average Glucose not appropriate for [...] resources are available on the ADA website: [email or web address] Rolly VARGHESE, Isha J, Campbell R, et al. ??Translating the A1C assay into estimated average glucose values. ??Diabetes Care 2008:31(8):5525-3848. Blood specimen (specimen) 12/03/2013 7:54 AM EDT 12/03/2013 11:03 AM EDT Narrative Resulting Agency Comment Spec In Lab Molina Herr MD CHEMISTRY ORDERABLES CERNER MILLENNIUM * Differential, Automated (12/03/2013 7:54 AM EDT) Neutrophil % 54.2 34.0 - 71.0 % CERNER MILLENNIUM Neutrophil Absolute 2.84 1.50 - 6.30 x10(3)/mcL CERNER MILLENNIUM Lymph % 34.4 19.0 - 53.0 % CERNER MILLENNIUM Lymphocytes Abs 1.8 1.0 - 3.6 x10(3)/mcL CERNER MILLENNIUM Monocyte % 7.4 4.0 - 13.0 % CERNER MILLENNIUM Monocyte Abs 0.4 0.2 - 1.0 x10(3)/mcL CERNER MILLENNIUM Eos % 3.6 0.0 - 7.0 % CERNER MILLENNIUM Eosinophils Abs 0.2 0.0 - 0.5 x10(3)/mcL CERNER MILLENNIUM Basophil % 0.4 0.0 - 2.0 % CERNER MILLENNIUM Baso [...] 0.05 x10(3)/mcL CERNER MILLENNIUM Blood specimen (specimen) 12/03/2013 7:54 AM EDT 12/03/2013 11:02 AM EDT Narrative Resulting Agency Comment Spec In Lab Molina Herr MD HEMATOLOGY ORDERABLE S CERNER MILLENNIUM * (ABNORMAL) Hemogram (12/03/2013 7:54 AM EDT) White Blood Cell 5.2 4.0 - 10.0 x10(3)/mc L CERNER MILLENNIUM Red Blood Cell 4.29(L) 4.63 - 6.08 x10(6)/mc L CERNER MILLENNIUM Hemoglobin 12.2(L) 13.7 - 17.5 gm/dL CERNER MILLENNIUM Hematocrit 37.4(L) 40.0 - 51.0 % CERNER MILLENNIUM Mean Cell Volume 87.2 79.0 - 92.0 fL CERNER MILLENNIUM Mean Cell Hemoglobin 28.4 25.6 - 32.2 pg CERNER MILLENNIUM Mean Cell Hemoglobin Concentration 32.6 32.0 - 36.5 gm/dL CERNER MILLENNIUM Platelet 250 145 - 370 x10(3)/mc L CERNER MILLENNIUM RDW Standard Deviation 47.8(H) 35.0 - 46.0 fL CERNER MILLENNIUM RDW coefficient of variation 15.0(H) 10.9 - 14.4 % CERNER MILLENNIUM Mean Platelet Volume 10.0 9.0 - 12.0 fL CERNER MILLENNIUM Blood specimen (specimen) 12/03/2013 7:54 AM EDT 12/03/2013 11:02 AM EDT Narrative Resulting Agency Comment Spec In Lab Molina Herr MD HEMATOLOGY ORDERABLE S Performing Organization Address City/[facility]/ZIP Co de Phone Number MARCO A BRYSONENNIUM * LDL Cholesterol, Direct (12/03/2013 7:54 AM EDT) LDL Cholesterol, Direct 96 <=99 mg/dL [facility] Comment: The National Cholesterol Education Program (NCEP) has set the following guidelines for LDL Cholesterol: Reference range: ?? Optimal: ?<100 mg/dL ?? Near Optimal/Above Optimal: ?? 100-129 mg/dL ?? Borderline high: ?130-159 mg/dL ?? High: ? 160-189 mg/dL ?? Very high: ?>ow=156 mg/dL NEYMAR 2001: 285(19):9267-6100 Blood specimen (specimen) 12/03/2013 7:54 AM EDT 12/03/2013 11:01 AM EDT Narrative Resulting Agency Comment Spec In Lab Molina Herr MD CHEMISTRY ORDERABLES [facility] * Lipid panel (fasting) (12/03/2013 7:54 AM EDT) Cholesterol, Total 164 <=199 mg/dL [facility] Comment: Recommendations of the NCEP Adult Treatment Panel for the following risk cutoff thresholds for the [place] population: Desirable: <200 mg/dL Borderline High: 200-239 mg/dL High: > or = 240 mg/dL Triglyceride 99 <=149 mg/dL [facility] Comment: Reference Range: Normal triglycerides: ??<150 mg/dL Borderline high: ??150-199 mg/dL High: ??200-499 mg/dL Very high: ??>vt=470 mg/dL NEYMAR 2001; 285(19):7341-6059 HDL Cholesterol 55 >=40 mg/dL [facility] Comment: Reference range: ??Low HDL: ?? < 40 mg/dL ??Normal: ?40-60 mg/dL ??Desirable: > 60 mg/dL NEYMAR 2001; 285(19):4644-0791 LDL Cholesterol 89 <=99 mg/dL [facility] NER MILLENNIUM Comment: Reference range: ?? Optimal: ?<100 mg/dL ?? Near Optimal/Above Optimal: ?? 100-129 mg/dL ?? Borderline high: ?130-159 mg/dL ?? High: ? 160-189 mg/dL ?? Very high: ?>kn=061 mg/dL NEYMAR 2001: 285(19):9467-5057 Cholesterol/HDL Ratio 3.0 ratio [facility] M[facility]ENNIUM Comment: A Cholesterol to HDL ratio below 4:1 is desirable. ??Studies suggest that increased CAD risk occurs at ratios above 5 for females and above 6 for men. ? [place] Heart Association ??(http://www.americanheart.org) ? Ayde Int Med, 1994; 121:641 ? AM J Med, 1998; 105(1A):48S Blood specimen (specimen) 12/03/2013 7:54 AM EDT 12/03/2013 11:01 AM EDT Narrative Resulting Agency Comment Spec In Lab Molina Herr MD CHEMISTRY ORDERABLES [facility] * (ABNORMAL) Comprehensive metabolic panel (non-fasting) (12/03/2013 7:54 AM EDT) [facility] Glucose 95 60 - 199 mg/dL [facility] MILLENNIUM Comment:Diabetes: >=200 mg/d L plus symptoms Blood Urea Nitrogen 22(H) 10 - 20 mg/dL CERNER MILLENNIUM Creatinine 1.16 0.80 - 1.50 mg/dL CERNER MILLENNIUM Comment: Please note that the pediatric reference intervals supplied above were not validated at [facility]. Results from pediatric patients should be interpreted in conjunction to the patient's age, height and muscle mass. Sodium 141 135 - 145 mmol/L CERNER MILLENNIUM Potassium 3.8 3.5 - 5.0 mmol/L CERNER MILLENNIUM Comment: Please note: ??Patients with WBC >100,000 may have falsely elevated Potassium levels. ??For accurate Potassium quantification in these patients send serum separator tube (gold top) for subsequent determinations. ??Contact the Clinical Chemistry Laboratory if there are any questions. Chloride 104 98 - 107 mmol/L CERNER MILLENNIUM Carbon Dioxide 27 22 - 31 mmol/L CERNER MILLENNIUM Anion Gap 10 5 - 15 mmol/L CERNER MILLENNIUM Calcium 9.2 8.5 - 10.5 mg/dL CERNER MILLENNIUM Protein, Total 6.6 6.4 - 8.3 gm/dL CERNER MILLENNIUM Albumin 3.7 3.2 - 5.2 gm/dL CERNER MILLENNIUM Aspartate Aminotransferase 22 0 - 39 unit/L CERNER MILLENNIUM Alanine Aminotransferase 15 0 - 55 unit/L CERNER MILLENNIUM Alkaline Phosphatase 49 40 - 120 unit/L CERNER MILLENNIUM Bilirubin, Total 0.5 0.2 - 1.3 mg/dL CERNER MILLENNIUM Bilirubin, [...] the following links into your internet browser. [email or web address] Blood specimen (specimen) 12/03/2013 7:54 AM EDT 12/03/2013 11:01 AM EDT Narrative Resulting Agency Comment Spec In Lab Molina Herr MD CHEMISTRY ORDERABLES CERNER MILLENNIUM documented in this encounter Visit Diagnoses Not on filedocumented in this encounter Care Teams Mobile Mechanic Relationship Specialty Start Date End Date Molina Herr MD [facility] [address] [place] [address] PCP - General 01/27/10 documented as of this encounter
--- OUTSIDE RECORDS SUMMARY | 2023-10-17 15:14 | XMS_ITS | Encounter Summary ---
Author Organization [facility] [place] [address] Care Team Providers Care Integration Director Name Role Phone Molina Herr MD Primary Care Provider [phone] Encounter Details Date Type Department Care Team (Late st Contact Info) Description 08/20/2010 [place] [phone] Mayelin Espino APRN [facility] [place] [address] Social History Tobacco Use Types Packs/Day Years [...] AM EDT Office [place] [phone] Elly Alston MD [facility] HOSPICE AND [place] [address] 10/27/2023 1:00 PM EDT Office Visit Speech Therapy at [address] Debra Franco, CARPENTER HELPER [employer] FLOORING 11/03/2023 2:00 PM EDT Office Visit Speech Therapy at [place] [phone] Debra Franco, CARPENTER HELPER [employer]ORING 11/08/2023 2:30 PM EDT Appointment MRI at [address] Navjot Grider MD [facility] DR HEMATOLOGY [place] [address] 11/09/2023 1:45 PM EDT Office Visit Hematology and Oncology at [place] [address] Isabell Jacob MD [facility] [place] [address] 11/11/2023 10:30 AM EDT Office Visit Radiation Oncology at [place] [address] Nicki Sharpe MD [facility] [place] [address] 11/15/2023 10:00 AM EDT Office Visit Speech Therapy at [place] [phone] Debra Franco, CARPENTER HELPER [employer] FLOORING 11/16/2023 9:00 AM EDT Office Visit Hematology and Oncology at [place] [phone] Bisi Nam 11/22/2023 10:00 AM EDT Office Visit Speech Therapy at [place] [phone] Debra Franco, CARPENTER HELPER [employer] FLOORING 11/30/2023 9:00 AM EDT Office Visit Hematology [place] [address] Bisi Nam 12/14/2023 9:00 AM EDT Office Visit Hematology [place] [address] Bisi Nam 12/28/2023 9:00 AM EDT Office Visit Hematology [place] [address] Bisi Nam documented as of this encounter Visit Diagnoses Not on filedocumented in this encounter Care Teams Integration Director Relationship Specialty Start Date End Date Molina Herr MD [facility] [address] [place] [address] PCP - General 01/27/10 documented as of this encounter
--- OUTSIDE RECORDS SUMMARY | 2023-10-17 15:14 | XMS_ITS | Encounter Summary ---
Author Organization [facility] [place] [address] Care Team Providers Care Washer Off Name Role Phone Molina Herr MD Primary Care Provider [phone] Encounter Details Date Type Department Care Team (Latest Contact Info) Description 08/24/2010 7:20 AM EDT - 08/24/2010 11:59 PM EDT Hospital Encounter [place] [address] Guzman Syed MD [facility] [place] [address] Discharge Disposition: Home Social History Tobacco Use [...] Sig Dispensed Refills Start Date End Date [id number]-YC-mpta (SOURCE CF) 200-10 mcg-mg Chew Take 1 [...] Office Visit Palliative Medicine at [place] [address] Elly Alston MD [facility] HOSPICE AND P[place]IATIVE [place] [address] 10/27/2023 1:00 PM EDT Office Visit Speech Therapy at [place] [address] Debra Franco, SERGER 11/03/2023 2:00 PM EDT Office Visit Speech Therapy at [place] [phone] Debra Franco, SERGER 11/08/2023 2:30 PM EDT Appointment MRI at [place] [address] Navjot Grider MD [facility] HEMATOLOGY [place] [address] 11/09/2023 1:45 PM EDT Office Visit Hematology and Oncology at [place] [address] Isabell Jacob MD [facility] [place] [address] 11/11/2023 10:30 AM EDT Office Visit Radiation Oncology at [address] Nicki Sharpe MD [facility] [place] [address] 11/15/2023 10:00 AM EDT Office [place] [address] Debra Franco, SERGER 11/16/2023 9:00 AM EDT Office Visit Hematology [place] [address] Bisi Nam 11/22/2023 10:00 AM EDT Office [place] [address] Debra Franco SERGER 11/30/2023 9:00 AM EDT Office Visit Hematology [place] [address] Bisi Nam 12/14/2023 9:00 AM EDT Office Visit Hematology [place] [address] Bisi Nam 12/28/2023 9:00 AM EDT Office Visit Hematology [place] [address] Bisi Nam documented as of this encounter Visit Diagnoses Not on filedocumented in this encounter Care Teams Washer Off Relationship Specialty Start Date End Date Molina Herr MD [facility] [address] [place] [address] PCP - General 01/27/10 documented as of this encounter
--- OUTSIDE RECORDS SUMMARY | 2023-10-17 15:14 | XMS_ITS | Encounter Summary ---
Author Organization [facility] [place] [address] Care Team Providers Care Look Out Tower Fire Watcher Name Role Phone Molina Herr MD Primary Care Provider [phone] Encounter Details Date Type Department Care Team (Late st Contact Info) Description 01/10/2013 2:30 PM EST - 01/10/2013 3:15 PM EST Surgery [place] [phone] Dominick Son MD [facility] DR GASTRO[place] [address] COLONOSCOPY FLEXIBLE, WITH BX (WRVU 3.56) Social History Tobacco Use Types Packs/Day Years [...] Sign Reading Time Taken Comments Blood Pressure 137/87 01/10/2013 2:32 PM EST Pulse 67 01/10/2013 2:32 PM EST Temperature - - Respiratory Rate 16 01/10/2013 2:32 PM EST Oxygen Saturation 99% 01/10/2013 2:32 PM EST Inhaled Oxygen Concentration - - [...] you need to be checked. Tuesday-Tuesday Clinic [phone] 8a-5p Same Day Endo [phone] 7a-8p Otherwise contact [phone] and ask to speak to the grommet worker substation electrician supervisor Follow up care is a [place] part [...] Sig Dispensed Refills Start Date End Date ygibgfpsqpxtd-HX-fpyg (SOURCE CF) 200-10 mcg-mg Chew Take 1 [...] Office Visit [place] [address] Elly Alston MD [facility] DR HOSPICE AND [place] [address] 10/27/2023 1:00 PM EDT Office [place] [address] Debra Franco, FITNESS AND WELLNESS DIRECTOR 11/03/2023 2:00 PM EDT Office Visit Speech Therapy at [place] [phone] Debra Franco, FITNESS AND WELLNESS DIRECTOR 11/08/2023 2:30 PM EDT Appointment MRI at [address] Navjot Grider MD [facility] [address] [place] [address] 11/09/2023 1:45 PM EDT Office Visit Hematology and Oncology at [address] Isabell Jacob MD [facility] [place] [address] 11/11/2023 10:30 AM EDT Office Visit Radiation Oncology at [address] Nicki Sharpe MD [facility] [place] [address] 11/15/2023 10:00 AM EDT Office Visit Speech Therapy at [place] [phone] Debra Franco, FITNESS AND WELLNESS DIRECTOR 11/16/2023 9:00 AM EDT Office Visit Hematology [place] [address] Bisi Nam 11/22/2023 10:00 AM EDT Office [place] [address] Debra Franco, FITNESS AND WELLNESS DIRECTOR 11/30/2023 9:00 AM EDT Office Visit Hematology [place] [address] Bisi Nam 12/14/2023 9:00 AM EDT Office Visit Hematology [place] [address] Bisi Nam 12/28/2023 9:00 AM EDT Office Visit [place]ematology [place] [address] Bisi Nam documented as of this encounter [...] 3:55 PM EST) Surgical Pathology Report ? [facility] ? Provider: ?? DOMINICK SON ?Pt. Name: ?? PERFECTO POLK X ? Acc #: ?[id number] ?Pt. ? Col Date: ?? 01/10/2013 ? /Sex: ?1940,(72 years),Male ? Rec Date: ?? 01/10/2013 ? LOC: ?4T ? SURGICAL PATHOLOGY ? ---Pathologic Diagnosis--- ? Rectum, polypectomy: ?Hyperplastic polyp. ? CR-0, CR-PX ? 01/11/13 ? AJE ? 01/11/13 Verified by: ? Lisovsky MD, Ruben ? Pathologist ? (Electronic Signature) ? The [...] ? Polyps ? Clinical Diagnosis: ? Same [facility] 01/10/2013 3:55 PM EST Dominick Son MD PATHOLOGY/CYTOLOGY O ST[place]ISLAW Performing Organization Address [facility] de Phone Number MARCO A WOLF * Specimen to Pathology (surgical or derm) (01/10/2013 3:55 PM EST) AP Specimen 01/10/2013 3:55 PM EST 01/10/2013 3:55 PM EST Narrative CERNER MILLENNIUM - 01/10/2013 3:55 PM EST Specimen requisition ordered. ??Separate Pathology report to follow Dominick Son MD PATHOLOGY/CYTOLOGY O [place] Performing Organization Address [facility] de Phone Number [facility] * COLONOSCOPY (01/10/2013 2:59 PM EST) COLONOSCOPY [facility] Endoscopy Patient Name: Perfecto Polk ? Procedure Date: 01/10/2013 2:59 PM ? Date of : 1940 ? Age: 72 ? Order #: [id number] ? Procedure: ? Colonoscopy Indications: ? High risk colon cancer surveillance: ? Personal history of colonic polyps Providers: ? Dominick Son MD, Osiris Dixon, ? RN, Davida Holt, Medicaid Analyst Referring MD: ?Molina Herr MD Medicines: ? [...] Procedure Code(s): ?? --- Professional --- ? 32565, Colonoscopy, flexible, ? proximal to splenic flexure; with ? biopsy, single or multiple Diagnosis Code(s): ?? --- Professional --- ? 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 --- Technical --- ? 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 All Rights Reserved. The codes documented in this report are preliminary and upon printer floor covering assistant review may be revised to meet current [...] Action Action Date Dose Rate Site fentaNYL 50mcg/mL injection ONCE PRN, Starting on Tue01/10/13 at 1521, Until Tue01/10/13 at 1903, Pain, Intra-Operative (Intra-Procedure), Routine Given 01/10/2013 3:35 PM EST 50 mcg Right Arm Given 01/10/2013 3:23 PM EST 50 mcg Ri ght Arm Given 01/10/2013 3:21 PM EST 100 mcg Ri ght Arm midazolam (VERSED) injection ONCE PRN, Starting on Tue01/10/13 at 1521, Until Tue01/10/13 at 1903, Sleep, Intra-Operative (Intra-Procedure), Routine Given 01/10/2013 3:35 PM EST 0.5 mg Right Arm Given 01/10/2013 3:26 PM EST 0.5 mg Ri ght Arm Given 01/10/2013 3:23 PM EST 1 mg Ri ght Arm documented in this [...] Dixon RN)1523 (Given - Provider: Osiris Dixon RN)1526 (Given - Provider: Osiris Dixon RN)1535 (Given - Provider: Osiris Dixon RN) documented in this encounter Care Teams Look Out Tower Fire Watcher Relationship Specialty Start Date End Date Molina Herr MD [facility] [address] [place] [address] PCP - General 01/27/10 documented as of this encounter
--- OUTSIDE RECORDS SUMMARY | 2023-10-17 15:14 | XMS_ITS | Encounter Summary ---
Author Organization formerly [place] [address] Care Team Providers Care Carton And Can Supply Supervisor Name Role Phone Molina Herr MD Primary Care Provider [phone] Reason for Visit * Reason Comments Tick Removal Encounter Details Date Type Department Care Team (Late st Contact Info) Description 07/31/2013 8:25 PM EDT - 07/31/2013 9:38 PM EDT [place] [id number] Francisco Torres MD [facility] [place] [address] Tick bite Discharge Disposition: Home Social History Tobacco Use [...] Sign Reading Time Taken Comments Blood Pressure 151/79 07/31/2013 8:37 PM EDT Pulse 72 07/31/2013 8:37 PM EDT Temperature 36.6 ??C (97.9 ??F) 07/31/2013 8:37 PM ED T Respiratory Rate 16 07/31/2013 8:37 PM EDT Oxygen Saturation 99% 07/31/2013 8:37 PM EDT Inhaled Oxygen Concentration - - Weight - - Height - - Body Mass Index - - documented in this encounter Discharge Instructions * Discharge Instructions* JadonsylviaYuanrajeev Mei - 07/31/2013 9:18 PM EDT We removed the tick from your shoulder. We also gave you a one dose of an antibiotic called doxycycline for lyme disease prophylaxis. If you have any redness, swelling, pain, swelling please return to the emergency department. documented in this encounter Medications at Time of Discharge Medication Sig Dispensed Refills Start Date End Date ufoceryailtbk-NN-pulv (SOURCE CF) 200-10 mcg-mg Chew Take 1 [...] daily. 07/05/2023 documented as of this encounter ED Notes * Aisha Chen MD - 08/01/2013 12:43 AM EDT Perfecto Polk is an 72 y.o. male who presents to the ED with CC: tick bite on the left deltoid HPI Perfecto Polk is a 72 y.o. male who presents to the Emergency Department complaining of tick biteon left deltoid. The patient thinks he was bitten by a tick approximately 2 days ago. The patient, shoulder or since. No other ticks noted. No fevers, chills, erythema, rash further symptomatic symptoms. He presents to the emergency department for tick removal. Review of Systems: Constitutional: No fevers, chills. CV: No chest pain, palpitations Resp: No dyspnea or cough GI: No abdominal pain Skin: No rash Physical Exam: Gen: NAD CV: RRR Resp: No respiratory distress. Neuro: A&Ox3, no focal deficits Left shoulder: Engorged tick with no surrounding erythema Skin: Warm and dry, no rash ED Course: - Medications, allergies and past medical history reviewed - tick removed with forceps - Doxycycline 200 mg by mouth x1 Assessment and Plan: Assessment: 72 y.o. male with tick bite with taken place for greater than 36 hours but less than 72hours. Patient is having systemic symptoms initially consider disseminated Lyme disease this time. Given the endemic area and time frame of the bite he was given a prophylactic dose of doxycycline. Return pressure cautions and follow-up instructions given. All questions answered. Rodney Regalado MD Resident 08/01/13 0050 ED ATTENDING ADDENDUM: The patient was seen in conjunction with Dr. Regalado, the resident physician. I have independentlyperformed the arrington portions of the history and physical exam. I have discussed the details of the case with the resident and agree with the assessment and plan as described in the resident note above. Aisha Chen MD 08/03/13 1125 documented in this encounter Miscellaneous Notes * Discharge Summary - Provider, Scanning - 08/01/2013 8:18 AM EDT * Miscellaneous - Provider, Scanning - 07/31/2013 8:49 PM EDT * ED Triage - Tara Suarez, RN - 07/31/2013 8:40 PM EDT Patient drove self to ED for tick on left shoulder for 1-2 days. Patient is A&O x4, skin pink warm and dry, ambulated unassisted with steady gait. Area around tick on left shoulder raised and red, patient denies fever, chills, body aches documented in this encounter Plan of Treatment Upcoming Encounters Date Type Department Care Team (Late st Contact Info) Description 10/27/2023 11:15 AM EDT Office Visit Palliative Medicine at [place] [address] [facility] [address] HOSPICE [place] [address] 10/27/2023 1:00 PM EDT Office Visit Speech Therapy at [address] Debra Franco, ELECTROLYSIS ENGINEER 11/03/2023 2:00 PM EDT Office Visit Speech Therapy at [place] [phone] Debra Franco, ELECTROLYSIS ENGINEER 11/08/2023 2:30 PM EDT Appointment MRI at [place] [address] [facility] [address] [place] [address] 11/09/2023 1:45 PM EDT Office Visit Hematology and Oncology at [place] [address] [facility] [place] [address] 11/11/2023 10:30 AM EDT Office Visit Radiation Oncology at [place] [address] [facility] [place] [address] 11/15/2023 10:00 AM EDT Office Visit Speech Therapy at [place] [phone] Debra Franco, ELECTROLYSIS ENGINEER 11/16/2023 9:00 AM EDT Office Visit Hematology [place] [address] Cyril Bisi W 11/22/2023 10:00 AM EDT Office Visit Speech Therapy at [facility] [place] [address] Debra Franoc, ELECTROLYSIS ENGINEER 11/30/2023 9:00 AM EDT Office Visit Hematology [place] [address] Bisi Nam 12/14/2023 9:00 AM EDT Office Visit Hematology [place] [address] Bisi Nam 12/28/2023 9:00 AM EDT Office Visit Hematology [place] [address] Bisi Nam documented as of this encounter Visit Diagnoses Diagnosis Tick bite Other, multiple, and unspecified sites, insect bite, nonvenomous, without mention of infection documented in this encounter Administered Medications Inactive Administered Medications - up to 3 most recent administrations Medication Order MAR Action Action Date Dose Rate Site doxycycline monohydrate (MONODOX) capsule 200 mg 200 mg, Oral, ONCE, 1 dose, On Tue07/31/13 at 2130, STAT, Indication for (Active or Suspected): Prophylaxis Given 07/31/2013 9:26 PM EDT 200 mg documented in this encounter Active and Recently Administered Medications Times are shown in EDT. Scheduled Medication Order 07/29/2013 07/30/2013 07/31/2013 doxycycline monohydrate (MONODOX) capsule 200 mg (COMPLETED) 200 mg, Oral, ONCE, 1 dose, On Tue07/31/13 at 2130, STAT, Indication for (Active or Suspected): Prophylaxis 2125 (Given - Provid er: Tara Suarez RN) documented in this encounter Care Teams Carton And Can Supply Supervisor Relationship Specialty Start Date End Date Molina Herr MD [facility] [address] [place] [address] PCP - General 01/27/10 documented as of this encounter
--- OUTSIDE RECORDS SUMMARY | 2023-10-17 15:14 | XMS_ITS | Encounter Summary ---
Author Organization [facility] [place] [address] Care Team Providers Care Lead Painter Name Role Phone oMlina Herr MD Primary Care Provider [phone] Encounter Details Date Type Department Care Team (Latest Contact Info) Description 12/01/2012 10:59 AM EDT - 12/01/2012 11:59 PM EDT Hospital [place] [address] Molina Herr MD [address] [address] [place] [address] Discharge Disposition: Home Social History Tobacco Use [...] Sig Dispensed Refills Start Date End Date [id number]-[id number] (SOURCE CF) 200-10 mcg-mg Chew Take 1 [...] AM EDT Office Visit Palliative Medicine at [place] [address] Elly Alston MD [facility] HOSPICE [place] [address] 10/27/2023 1:00 PM EDT Office Visit Speech Therapy at [place] [address] Debra Franco, INSPECTOR CLIP ON SUNGLASSES 11/03/2023 2:00 PM EDT Office Visit Speech Therapy at [place] [address] Debra Franco, INSPECTOR CLIP ON SUNGLASSES 11/08/2023 2:30 PM EDT Appointment MRI at [place] [address] Navjot Grider MD [facility] [address] [place] [address] 11/09/2023 1:45 PM EDT Office Visit Hematology and Oncology at [place] [address] Isabell Jacob MD [facility] [place] [address] 11/11/2023 10:30 AM EDT Office Visit Radiation Oncology at [place] [address] Nicki Sharpe MD [facility] [place] [address] 11/15/2023 10:00 AM EDT Office Visit Speech Therapy [place] [address] Debra Franco, INSPECTOR CLIP ON SUNGLASSES 11/16/2023 9:00 AM EDT Office Visit Hematology [place]cology [place] [address] Bisi Nam 11/22/2023 10:00 AM EDT Office Visit Speech Therapy [place] [address] Debra Franco, INSPECTOR CLIP ON SUNGLASSES 11/30/2023 9:00 AM EDT Office Visit Hematology [place]cology [place] [address] Bisi Nam 12/14/2023 9:00 AM EDT Office Visit Hematology [place]cology [place] [address] Bisi Nam 12/28/2023 9:00 AM EDT Office Visit Hematology [place]cology [place] [address] Bisi Nam documented as of this encounter Procedures Procedure Name Priority Date/Time Associated Diagnosis Comments DIFFERENTIAL, AUTOMATED Routine 12/01/2012 8:07 AM EDT GOLD TUBE HOLD Routine 12/01/2012 8:07 AM EDT CBC (WITH DIFF) Routine 12/01/2012 8:07 AM EDT URIC ACID Routine 12/01/2012 8:07 AM EDT LDL CHOLESTEROL, DIRECT Routine 12/01/2012 8:07 AM EDT HDL/CHOL PROFILE Routine 12/01/2012 8:07 AM EDT COMPREHENSIVE METABOLIC PANEL Routine 12/01/2012 8:07 AM EDT documented in this encounter Results * Differential, Automated (12/01/2012 8:07 AM EDT) Neutrophil % 60.6 34.0 - 71.0 % CERNER MILLENNIUM Neutrophil Absolute 3.31 1.50 - 6.30 x10(3)/mcL CERNER MILLENNIUM Lymph % 27.9 19.0 - 53.0 % CERNER MILLENNIUM Lymphocytes Abs 1.5 1.0 - 3.6 x10(3)/mcL CERNER MILLENNIUM Monocyte % 7.9 4.0 - 13.0 % CERNER MILLENNIUM Monocyte Abs 0.4 0.2 - 1.0 x10(3)/mcL CERNER MILLENNIUM Eos % 2.8 0.0 - 7.0 % CERNER MILLENNIUM Eosinophils Abs 0.2 0.0 - 0.5 x10(3)/mcL CERNER MILLENNIUM Basophil % 0.4 0.0 - 2.0 % CERNER MILLENNIUM Baso Absolute 0.0 0.0 - 0.2 x10(3)/mcL CERNER MILLENNIUM Immature Gran % 0.40 0.00 - 0.66 % CERNER MILLENNIUM Comment: Immature granulocytes(IG's)percentage and absolute count will include metamyelocytes, myelocytes, and promyelocytes. Blood smears from CBCs yielding IG's will be scanned manually for concordance. If this scan disagrees with the automated IG or if promyelocytes are noted, a manual differential will be performed. Immature Gran Absolute 0.02 0.00 - 0.05 x10(3)/mcL MARCO A BRYSONENNIUM Blood specimen (specimen) 12/01/2012 8:07 AM EDT 12/01/2012 11:32 AM EDT Molina Herr MD HEMATOLOGY ORDERABLE S MARCO A ROQUEIUM * Gold Tube HOLD (12/01/2012 8:07 AM EDT) Gold Hold Sample in lab. MARCO A BRYSONENNIUM Blood specimen (specimen) 12/01/2012 8:07 AM EDT 12/01/2012 11:32 AM EDT Molina Herr MD CHEMISTRY ORDERABLES Performing Organization Address [facility] Co de Phone Number MARCO A WOLF * Uric acid (12/01/2012 8:07 AM EDT) Uric Acid 6.7 3.5 - 8.5 mg/dL [facility] Blood specimen (specimen) 12/01/2012 8:07 AM EDT 12/01/2012 11:32 AM EDT Narrative Resulting Agency Comment Spec In Lab Molina Herr MD CHEMISTRY ORDERABLES Performing Organization Address [facility] Co de Phone Number MARCO A WOLF * HDL/Cholesterol Profile (12/01/2012 8:07 AM EDT) Cholesterol, Total 164 <=199 mg/dL [facility] Comment: Recommendations of the NCEP Adult Treatment Panel for the following risk cutoff thresholds for the [place] population: Desirable: <200 mg/dL Borderline High: 200-239 mg/dL High: > or = 240 mg/dL HDL Cholesterol 56 >=40 mg/dL [facility] Comment: Reference range: ??Low HDL: ?? < 40 mg/dL ??Normal: ?40-60 mg/dL ??Desirable: > 60 mg/dL NEYMAR 2001; 285(19):4772-9281 Cholesterol/HDL Ratio 2.9 ratio [facility] Comment: A Cholesterol to HDL ratio below 4:1 is desirable. ??Studies suggest that increased CAD risk occurs at ratios above 5 for females and above 6 for men. ? [place] Heart Association ??(http://www.americanheart.org) ? Ayde Int Med, 1994; 121:641 ? AM J Med, 1998; 105(1A):48S Blood specimen (specimen) 12/01/2012 8:07 AM EDT 12/01/2012 11:32 AM EDT Narrative Resulting Agency Comment Spec In Lab Molina Herr MD CHEMISTRY ORDERABLES Performing Organization Address [email or web address] de Phone Number MARCO A ROQUECOUNTS INCLUDE 234 BEDS AT THE [facility] * LDL Cholesterol, Direct (12/01/2012 8:07 AM EDT) LDL Cholesterol, Direct 95 <=99 mg/dL CERNER MILLENNIUM Comment: The National Cholesterol Education Program (NCEP) has set the following guidelines for LDL Cholesterol: Reference range: ?? Optimal: ?<100 mg/dL ?? Near Optimal/Above Optimal: ?? 100-129 mg/dL ?? Borderline high: ?130-159 mg/dL ?? High: ? 160-189 mg/dL ?? Very high: ?>ok=728 mg/dL NEYMAR 2001: 285(05):8773-5565 Blood specimen (specimen) 12/01/2012 8:07 AM EDT 12/01/2012 11:32 AM EDT Narrative Resulting Agency Comment Spec In Lab Molina Herr MD CHEMISTRY ORDERABLES Performing Organization Address [email or web address] de Phone Number MARCO A WOLF * (ABNORMAL) CBC (with Diff) (12/01/2012 8:07 AM EDT) White Blood Cell 5.4 4.0 - 10.0 x10(3)/mc L CERNER MILLENNIUM Red Blood Cell 4.90 4.63 - 6.08 x10(6)/mc L CERNER MILLENNIUM Hemoglobin 13.6(L) 13.7 - 17.5 gm/dL CERNER MILLENNIUM Hematocrit 42.8 40.0 - 51.0 % CERNER MILLENNIUM Mean Cell Volume 87.3 79.0 - 92.0 fL CERNER MILLENNIUM Mean Cell Hemoglobin 27.8 25.6 - 32.2 pg CERNER MILLENNIUM Mean Cell Hemoglobin Concentration 31.8(L) 32.0 - 36.5 gm/dL CERNER MILLENNIUM Platelet 270 145 - 370 x10(3)/mc L CERNER MILLENNIUM RDW Standard Deviation 46.1(H) 35.0 - 46.0 fL CERNER MILLENNIUM RDW coefficient of variation 14.6(H) 10.9 - 14.4 % CERNER MILLENNIUM Mean Platelet Volume 10.0 9.0 - 12.0 fL CERNER MILLENNIUM Blood specimen (specimen) 12/01/2012 8:07 AM EDT 12/01/2012 11:32 AM EDT Narrative Resulting Agency Comment Spec In Lab Molina Herr MD HEMATOLOGY ORDERABLE S CERNER MILLENNIUM * (ABNORMAL) Comprehensive metabolic panel (non-fasting) (12/01/2012 8:07 AM EDT) Glucose 98 60 - 199 mg/dL CERNER MILLENNIUM Comment:Diabetes: >=200 mg/d L plus symptoms Blood Urea Nitrogen 25(H) 10 - 20 mg/dL CERNER MILLENNIUM Creatinine 1.22 0.80 - 1.50 mg/dL CERNER MILLENNIUM Comment: Please note that the pediatric reference intervals supplied above were not validated at [facility]. Results from pediatric patients should be interpreted in conjunction to the patient's age, height and muscle mass. Sodium 137 135 - 145 mmol/L CERNER MILLENNIUM Potassium 4.2 3.5 - 5.0 mmol/L CERNER MILLENNIUM Comment: Please note: ??Patients with WBC >100,000 may have falsely elevated Potassium levels. ??For accurate Potassium quantification in these patients send serum separator tube (gold top) for subsequent determinations. ??Contact the Clinical Chemistry Laboratory if there are any questions. Chloride 101 98 - 107 mmol/L CERNER MILLENNIUM Carbon Dioxide 28 22 - 31 mmol/L CERNER MILLENNIUM Anion Gap 8 5 - 15 mmol/L CERNER MILLENNIUM Calcium 9.3 8.5 - 10.5 mg/dL CERNER MILLENNIUM Protein, Total 7.2 6.4 - 8.3 gm/dL CERNER MILLENNIUM Albumin 4.2 3.2 - 5.2 gm/dL CERNER MILLENNIUM Aspartate Aminotransferase 22 0 - 39 unit/L CERNER MILLENNIUM Alanine Aminotransferase 15 0 - 55 unit/L CERNER MILLENNIUM Alkaline Phosphatase 51 40 - 120 unit/L CERNER MILLENNIUM Bilirubin, Total 0.3 0.2 - 1.3 mg/dL CERNER MILLENNIUM Bilirubin, Direct <0.1 0.0 - 0.3 mg/dL CERNER MILLENNIUM Est Glomerular Filtration Rate 59(L) >=60 CERNER MILLENNIUM Comment: This estimated GFR [...] the following links into your internet browser. http://www.nkdep.nih.gov/lab-evaluation.shtml http://www.kidney.org/professionals/ Blood specimen (specimen) 12/01/2012 8:07 AM EDT 12/01/2012 11:32 AM EDT Narrative Resulting Agency Comment Spec In Lab Molina Herr MD CHEMISTRY ORDERABLES MARCO A WOLF documented in this encounter Visit Diagnoses Not on filedocumented in this encounter Care Teams Lead Painter Relationship Specialty Start Date End Date Molina Herr MD [facility] [address] [place] [address] PCP - General 01/27/10 documented as of this encounter
--- OUTSIDE RECORDS SUMMARY | 2023-10-17 15:14 | XMS_ITS | Encounter Summary ---
Author Organization [facility] [address] Care Team Providers Care Retort Load Expediter Name Role Phone Molina Herr MD Primary Care Provider [phone] Encounter Details Date Type Department Care Team (Late st Contact Info) Description 08/24/2010 Orders [place] [phone] Grace Randhawa MD [facility] [place] [address] Osteomyelitis (Primary Dx) Social History Tobacco Use Types [...] AM EDT Office [place] [phone] Elly Alston MD [facility] [address] HOSPICE AND PALLIATIVE MEDICINE [place], [place] [phone] 10/27/2023 1:00 PM EDT Office Visit Speech Therapy at [place] [address] Debra Franco, ROLANDO 11/03/2023 2:00 PM EDT Office Visit Speech Therapy at [place] [phone] Debra Franco, CONTRACT NEGOTIATION SPECIALIST 11/08/2023 2:30 PM EDT Appointment MRI at [address] Navjot Grider MD [facility] [address] HEMAT[place] [address] 11/09/2023 1:45 PM EDT Office Visit Hematology and Oncology at [place] [address] Isabell Jacob MD [facility] [place] [address] 11/11/2023 10:30 AM EDT Office Visit Radiation Oncology at [place] [address] Nicki Sharpe MD [facility] [place] [address] 11/15/2023 10:00 AM EDT Office Visit Speech Therapy at [place] [phone] Debra Franco, CONTRACT NEGOTIATION SPECIALIST 11/16/2023 9:00 AM EDT Office Visit Hematology and Oncology at [place] [phone] Bisi Nam 11/22/2023 10:00 AM EDT Office Visit Speech Therapy at [place] [phone] Debra FrancoROLANDO 11/30/2023 9:00 AM EDT Office Visit Hematology [place] [address] Bisi Nam 12/14/2023 9:00 AM EDT Office Visit Hematology [place] [address] Bisi Nam 12/28/2023 9:00 AM EDT Office Visit Hematology [place] [address] Bisi Nam documented as of this encounter Results * QuantiFERON-TB Gold (08/24/2010 2:59 PM EDT) [facility] Quantiferon-TB Gold Negative Negative [facility] Comment: M. tuberculosis (TB) infection NOT likely A negative QuantiFERON-TB Gold IT result does not preclude the possibility of M. tuberculosis infection or tuberculosis disease: false negative results can be due to stage of infection (e.g., specimen obtained prior to the development of cellular immune response), co-morbid conditions which affect immune function, or other individual immunological factors. The performance of the QuantiFERON-TB Gold IT [...] IT assay will be performed in the [facility] Reference Lab. Please call , press 4; with questions. Blood specimen (specimen) 08/24/2010 2:59 PM EDT 08/25/2010 11:36 AM EDT Grace Randhawa MD CHEMISTRY ORDERABLES Performing Organization Address [facility] de Phone Number [facility] * High sensitivity CRP (08/24/2010 2:59 PM EDT) [facility] C-Reactive Protein High Sensitivity 2.0 mg/L [facility] Comment: Interpretations: 1) For cardiac risk [...] and Cardiovascular Disease. ??Circulation 2003; 107:499-511 2. Ridker PM. ??Clinical applications of C-reactive protein for cardiovascular disease detection and prevention. ??Circulation 2003; 107:363-369 Blood specimen (specimen) 08/24/2010 2:59 PM EDT 08/24/2010 3:14 PM EDT Grace Randhawa MD CHEMISTRY ORDERABLES Performing Organization Address [facility] Co de Phone Number [facility] * (ABNORMAL) Sedimentation rate, automated (08/24/2010 2:59 PM EDT) [facility] Sedimentation Rate Automated 24(H) 0 - 15 mm/hr CERNER MILLENNIUM Blood specimen (specimen) 08/24/2010 2:59 PM EDT 08/24/2010 3:14 PM EDT Grace Randhawa MD HEMATOLOGY ORDERABLE S Performing Organization Address [facility] Co de Phone Number CERNER MILLENNIUM * (ABNORMAL) CBC (08/24/2010 2:59 PM EDT) White Blood Cell 5.8 4.0 - 10.0 x10(3)/mc L CERNER MILLENNIUM Red Blood Cell 4.26(L) 4.63 - 6.08 x10(6)/mc L CERNER MILLENNIUM Hemoglobin 11.1(L) 13.7 - 17.5 gm/dL CERNER MILLENNIUM Hematocrit 34.7(L) 40.0 - 51.0 % CERNER MILLENNIUM Mean Cell Volume 81.5 79.0 - 92.0 fL CERNER MILLENNIUM Mean Cell Hemoglobin 26.1 25.6 - 32.2 pg CERNER MILLENNIUM Mean Cell Hemoglobin Concentration 32.0 32.0 - 36.5 gm/dL CERNER MILLENNIUM Platelet 254 145 - 370 x10(3)/mc L CERNER MILLENNIUM RDW Standard Deviation 48.0(H) 35.0 - 46.0 fL CERNER MILLENNIUM RDW coefficient of variation 16.2(H) 10.9 - 14.4 % CERNER MILLENNIUM Mean Platelet Volume 9.0 9.0 - 12.0 fL CERNER MILLENNIUM Blood specimen (specimen) 08/24/2010 2:59 PM EDT 08/24/2010 3:14 PM EDT Grace Randhawa MD HEMATOLOGY ORDERABLE S CERNER MILLENNIUM documented in this encounter Visit Diagnoses Diagnosis Osteomyelitis- Primary Unspecified osteomyelitis, site unspecified documented in this encounter Care Teams Retort Load Expediter Relationship Specialty Start Date End Date Molina Herr MD [facility] [address] [place] [id number] PCP - General 01/27/10 documented as of this encounter
--- OUTSIDE RECORDS SUMMARY | 2023-10-17 15:14 | XMS_ITS | Encounter Summary ---
Author Organization [facility] [place] [address] Care Team Providers Care Deckhand Crab Boat Name Role Phone Molina Herr MD Primary Care Provider [phone] Reason for Visit * Reason Comments Follow-up Encounter Details Date Type Department Care Team (Late st Contact Info) Description 09/01/2010 10:00 AM EDT Follow-[place] [phone] Grace Randhawa MD [facility] [place] [address] Osteomyelitis (Primary Dx) Discharge Disposition: Home Social History [...] Sign Reading Time Taken Comments Blood Pressure 123/79 09/01/2010 10:06 AM EDT Pulse 84 09/01/2010 10:06 AM EDT Temperature 36.6 ??C (97.9 ??F) 09/01/2010 10:06 AM E DT Respiratory Rate 14 09/01/2010 10:06 AM EDT Oxygen Saturation 98% 09/01/2010 10:06 AM EDT Inhaled Oxygen Concentration - - Weight 71.7 kg (158 lb) 09/01/2010 10:06 AM EDT Height - - Body Mass Index 22.67 08/21/2010 12:50 PM EDT documented in this encounter Progress Notes * Grace Randhawa MD - 09/01/2010 10:45 AM EDT Subjective: Patient ID: Perfecto Polk is a 69 y.o. male. HPI 69M being seen in follow up today for vertebral osteo, see prior note for details of presentation. He is feeling generally well. No fever, chills, sweats. No diarrhea. Back pain better though still feels tired with activity in his back and tight at times. But off all pain meds now, and feeling much better. Doing daily activities. Doing PT which is helpful for him. Has had a little abd cramping. No BRBPR. No other illness: neg resp, uriniary, neurol ROS. Quantiferon TB test was positive at our last labs, ESR and CRP declining well though. They were unable to add on AFB to the back tissue from his bx as it had been discarded. He has completed 6 weeks of Abx now. Review of Systems Negative remainder ROS Objective: Physical Exam Constitutional: He is oriented to [...] friction rub. No murmur heard. Pulmonary/Chest: Effort normal. No respiratory distress. He has no wheezes. He has no rales. Abdominal: Soft. No tenderness. Musculoskeletal: Normal range of motion. No spinal tenderness. Paraspinal muscles without tenderness. No lower extr weakness or sensory changes Lymphadenopathy: He has no cervical adenopathy. Neurological: He is alert and oriented to person, place, and time. No cranial nerve deficit. Skin: Skin is warm and dry. No rash noted. No erythema. Psychiatric: He has a normal mood and affect. Labs: Repeat quantiferon test negative ESR 15, CRP 0.4 Other labs reviewed Assessment and Plan: 69M with MRI and symptoms that were concerning for osteo, treated with levaquin, now completed 6 weeks and feeling well/improved. Bx did not yield a pathogen but he had already been on abx a while. Repeat quantiferon test is negative which makes me think the first was false finding, which is good. His labs look excellent in terms of inflamm markers (now down to normal). Will ask he have repeat ESR, CRP again in 2 weeks and 4 weeks to assure they remain low and normal (will CC note to PCP to do this as patient is followed closely by him). Did not schedule f/u at this time, but can see if any new concerns or problems arise No problem-specific visit notes found for this encounter. documented in this encounter Plan of Treatment Upcoming Encounters Date Type Department Care Team (Late st Contact Info) Description 10/27/2023 11:15 AM EDT Office Visit Palliative Medicine at [address] Elly Alston MD [facility] [address] HOSPICE [place] [address] 10/27/2023 1:00 PM EDT Office Visit Speech Therapy at [place] [phone] Debra Franco, EMAIL DEVELOPER 11/03/2023 2:00 PM EDT Office [place] [phone] Debra Franco, EMAIL DEVELOPER 11/08/2023 2:30 PM EDT Appointment MRI at [place] [phone] Navjot Grider MD [facility] [place] [address] 11/09/2023 1:45 PM EDT Office Visit Hematology and Oncology at [place] [address] Isabell Jacob MD [facility] [place] [address] 11/11/2023 10:30 AM EDT Office Visit Radiation Oncology at [place] [address] Nicki Sharpe MD [facility] [place] [address] 11/15/2023 10:00 AM EDT Office Visit Speech Therapy at [place] [phone] Debra Franco, EMAIL DEVELOPER 11/16/2023 9:00 AM EDT Office Visit Hematology [place] [address] Bisi Nam 11/22/2023 10:00 AM EDT Office Visit Speech Therapy at [place] [phone] Debra Franco, EMAIL DEVELOPER 11/30/2023 9:00 AM EDT Office Visit H[place]ology [place] [address] Bisi Nam 12/14/2023 9:00 AM EDT Office Visit H[place]ology [place] [address] Bisi Nam 12/28/2023 9:00 AM EDT Office Visit [place] [address] Bisi Nam documented as of this encounter Procedures Procedure Name Priority Date/Time Associated Diagnosis Comments DIFFERENTIAL, AUTOMATED Routine 09/01/2010 3:09 PM EDT SEDIMENTATION RATE Routine 09/01/2010 3: 09 PM EDT Osteomyelitis CBC (WITH DIFF) Routine 09/01/2010 3:09 PM EDT Osteomyelitis CRP, CARDIAC RISK (HS CRP) Routine 09/01/2010 3:09 PM EDT Osteomyelitis documented in this encounter Results * REFLEX LAB-A-DIFF (09/01/2010 3:09 PM EDT) Neutrophil % 59.8 34.0 - 71.0 % CERNER MILLENNIUM Neutrophil Absolute 3.59 1.50 - 6.30 x10(3)/mcL CERNER MILLENNIUM Lymph % 27.8 19.0 - 53.0 % CERNER MILLENNIUM Lymphocytes Abs 1.7 1.0 - 3.6 x10(3)/mcL CERNER MILLENNIUM Monocyte % 7.7 4.0 - 13.0 % CERNER MILLENNIUM Monocyte Abs 0.5 0.2 - 1.0 x10(3)/mcL CERNER MILLENNIUM Eos % 4.0 0.0 - 7.0 % CERNER MILLENNIUM Eosinophils Abs 0.2 0.0 - 0.5 x10(3)/mcL CERNER MILLENNIUM Basophil % 0.5 0.0 - 2.0 % CERNER MILLENNIUM Baso [...] Gran Absolute 0.01 0.00 - 0.05 x10(3)/mcL CERNER MILLENNIUM Blood specimen (specimen) 09/01/2010 3:09 PM EDT 09/01/2010 3:21 PM EDT Grace Randhawa MD HEMATOLOGY ORDERABLE S Performing Organization Address [facility] Co de Phone Number [facility] SoundSenasationGRA[facility] * High sensitivity CRP (09/01/2010 3:09 PM EDT) Pathologist [facility] C-Reactive Protein High Sensitivity 0.4 mg/L [facility] Comment: Interpretations: 1) For cardiac risk [...] prevention. ??Circulation 2003; 107:363-369 Blood specimen (specimen) 09/01/2010 3:09 PM EDT 09/01/2010 3:21 PM EDT Grace Randhawa MD CHEMISTRY ORDERABLES Performing Organization Address [facility] Co de Phone Number [facility] ATOMOOCAROM[facility] * Sedimentation rate, automated (09/01/2010 3:09 PM EDT) Sedimentation Rate Automated 15 0 - 15 mm/hr CERNER MILLENNIUM Blood specimen (specimen) 09/01/2010 3:09 PM EDT 09/01/2010 3:21 PM EDT Grace Randhawa MD HEMATOLOGY ORDERABLE S CERNER MILLENNIUM * (ABNORMAL) CBC (09/01/2010 3:09 PM EDT) White Blood Cell 6.0 4.0 - 10.0 x10(3)/mc L CERNER MILLENNIUM Red Blood Cell 4.29(L) 4.63 - 6.08 x10(6)/mc L CERNER MILLENNIUM Hemoglobin 11.2(L) 13.7 - 17.5 gm/dL CERNER MILLENNIUM Hematocrit 35.0(L) 40.0 - 51.0 % CERNER MILLENNIUM Mean Cell Volume 81.6 79.0 - 92.0 fL CERNER MILLENNIUM Mean Cell Hemoglobin 26.1 25.6 - 32.2 pg CERNER MILLENNIUM Mean Cell Hemoglobin Concentration 32.0 32.0 - 36.5 gm/dL CERNER MILLENNIUM Platelet 267 145 - 370 x10(3)/mc L CERNER MILLENNIUM RDW Standard Deviation 50.2(H) 35.0 - 46.0 fL CERNER MILLENNIUM RDW coefficient of variation 16.8(H) 10.9 - 14.4 % CERNER MILLENNIUM Mean Platelet Volume 8.7(L) 9.0 - 12.0 fL CERNER MILLENNIUM Blood specimen (specimen) 09/01/2010 3:09 PM EDT 09/01/2010 3:21 PM EDT Grace Randhawa MD HEMATOLOGY ORDERABLE S CERNER MILLENNIUM documented in this encounter Visit Diagnoses Diagnosis Osteomyelitis- Primary Unspecified osteomyelitis, site unspecified documented in this encounter Care Teams Deckhand Crab Boat Relationship Specialty Start Date End Date Molina Herr MD [address] [place] [address] PCP - General 01/27/10 documented as of this encounter
--- OUTSIDE RECORDS SUMMARY | 2023-10-17 15:14 | XMS_ITS | Encounter Summary ---
[place] [address] Care Team Providers Care Recruiting Consultant Name Role Phone Molina Herr MD Primary Care Provider [phone] Reason for Visit * Reason Onset Date Comments Referral 12/03/2013 Encounter Details Date Type Department Care Team (Late st Contact Info) Description 12/03/2013 Telephone [place] [phone] Zeenat Perez Referral Social History Tobacco Use Types Packs/Day Years [...] encounter Miscellaneous Notes * Telephone Encounter - Zeenat Perez - 12/03/2013 2:35 PM EDT Ask the patient to verify the following: Full Name: Perfecto Polk : 1940 Phone number: [phone] (home) Mailing address: [address] [facility] [address] Age: 73 y.o. Appointment date: 12/27/13 Appointment is with: KAYLA Reason #1 Injury/Complaint: LEFT KNEE PAIN Date of injury/complaint: NONE Is this a new injury? No Is this a 2nd opinion? No Appointment type: 18-100 Adult - Not sports related Is this Workers Comp? No How long have you had these symptoms? 2 months Records Retrieval Most recent physical exam: Yes - When? Where? Who? Notes: TODAY [facility] PCP X-rays: No MRI: NO CT Scan: No Physical therapy: Yes - When? Where? Who? Notes: LAST TUESDAY [facility] Injection: Yes - When? Where? Who? Notes: ABOUT A MONTH AGO PCP'S OFFICE PCP Other diagnostic studies: No Other therapies: No Other specialist(s): No If 2nd (+) opinion get info on previous: No Have you had any surgeries for this issue? No Did surgery include placement of implant/hardware or fixation of any kind? No documented in this encounter Plan of Treatment Upcoming Encounters Date Type Department Care Team (Late st Contact Info) Description 10/27/2023 11:15 AM EDT Office Visit Palliative Medicine at [place] [phone] Elly Alston MD [facility] DR HOSPICE AND [place] [address] 10/27/2023 1:00 PM EDT Office Visit [place] [address] Debra Franco, MOBILITY ARCHITECT 11/03/2023 2:00 PM EDT Office Visit [place] [address] Debra Franco, MOBILITY ARCHITECT 11/08/2023 2:30 PM EDT [place] [phone] Navjot Grider MD [facility] DR HEMATOLOGY [place] [address] 11/09/2023 1:45 PM EDT Office Visit Hematology and Oncology at [place] [address] Isabell Jacob MD [facility] [address] 11/11/2023 10:30 AM EDT Office Visit Radiation Oncology at [place] [address] Nicki Sharpe MD [facility] [place] [address] 11/15/2023 10:00 AM EDT Office Visit Speech Therapy at [place] [address] Debra Franco, MOBILITY ARCHITECT 11/16/2023 9:00 AM EDT Office Visit Hematology and Oncology at [place] [phone] Bisi Nam 11/22/2023 10:00 AM EDT Office Visit Speech Therapy at [place] [phone] Debra Franco, MOBILITY ARCHITECT 11/30/2023 9:00 AM EDT Office Visit Hematology [place] [address] Bisi Nam 12/14/2023 9:00 AM EDT Office Visit Hematology [place] [address] Bisi Nam 12/28/2023 9:00 AM EDT Office Visit Hematology and Oncology at [place] [phone] Bisi Nam documented as of this encounter Visit Diagnoses Not on filedocumented in this encounter Care Teams Recruiting Consultant Relationship Specialty Start Date End Date Molina Herr MD [address] [place] [address] PCP - General 01/27/10 documented as of this encounter
--- OUTSIDE RECORDS SUMMARY | 2023-10-17 15:14 | XMS_ITS | Encounter Summary ---
Author Organization [facility] [address] Care Team Providers Care Geospatial Developer Name Role Phone Molina Herr MD Primary Care Provider [phone] Encounter Details Date Type Department Care Team (Late st Contact Info) Description 08/31/2010 Abstract [place] [address] Blessing Concepcion, RN Social History Tobacco Use Types Packs/Day [...] AM EDT Office [place] [address] Elly Alston MD [facility] [address] HOSPICE AND [place] [address] 10/27/2023 1:00 PM EDT Office [place] [address] Debra Franco, DIRECTOR OF OCCUPATIONAL THERAPY 11/03/2023 2:00 PM EDT Office Visit Speech Therapy at [address] Debra Franco, DIRECTOR OF OCCUPATIONAL THERAPY 11/08/2023 2:30 PM EDT Appointment MRI at [place] [address] Navjot Grider MD [facility] [address] HEMATOLOGY [place] [address] 11/09/2023 1:45 PM EDT Office Visit Hematology [place] [address] Isabell Jacob MD [facility] [place] [place] [address] 11/11/2023 10:30 AM EDT Office Visit Radiation Oncology at [place] [phone] Nicki Sharpe MD [facility] [place] [address] 11/15/2023 10:00 AM EDT Office Visit Speech Therapy at [place] [phone] Debra Franco, ROLANDO 11/16/2023 9:00 AM EDT Office Visit Hematology [place] [address] Bisi Nam 11/22/2023 10:00 AM EDT Office [place] [address] Debra Franco, ROLANDO 11/30/2023 9:00 AM EDT Office Visit Hematology [place] [address] Bisi Nam 12/14/2023 9:00 AM EDT Office Visit Hematology [place] [address] Bisi Nam 12/28/2023 9:00 AM EDT Office Visit Hematology [place] [address] Bisi Nam documented as of this encounter Visit Diagnoses Not on filedocumented in this encounter Care Teams Geospatial Developer Relationship Specialty Start Date End Date Molina Herr MD [address] [place] [address] PCP - General 01/27/10 documented as of this encounter
--- OUTSIDE RECORDS SUMMARY | 2023-10-17 15:14 | XMS_ITS | Encounter Summary ---
Author Organization [facility] [place] [address] Care Team Providers Care Cognos Bi Administrator Name Role Phone Molina Herr MD Primary Care Provider [phone] Encounter Details Date Type Department Care Team (Latest Contact Info) Description 11/30/2010 7:59 AM EDT - 11/30/2010 11:59 PM EDT Hospital [place] [phone] Molina Herr MD [address] [place] [address] Discharge Disposition: Home Social History Tobacco Use [...] Sig Dispensed Refills Start Date End Date [id number] (SOURCE CF) 200-10 mcg-mg Chew Take 1 [...] AM EDT Office Visit Palliative Medicine at [place] [address] Elly Alston MD [facility] HOSPICE AND [place] [address] 10/27/2023 1:00 PM EDT Office Visit Speech Therapy at [place] [address] Debra Franco, BREAKFAST BAR ATTENDANT 11/03/2023 2:00 PM EDT Office Visit Speech Therapy at [place] [address] Debra Franco, BREAKFAST BAR ATTENDANT 11/08/2023 2:30 PM EDT Appointment MRI at [place] [address] Navjot Grider MD [facility] DR HEMATOLOGY [place] [address] 11/09/2023 1:45 PM EDT Office Visit Hematology and Oncology at [place] [address] Isabell Jacob MD [facility] [place] [address] 11/11/2023 10:30 AM EDT Office Visit Radiation Oncology at [place] [address] Nicki Sharpe MD [facility] [place] [address] 11/15/2023 10:00 AM EDT Office Visit Speech Therapy [place] [address] Debra Franco, BREAKFAST BAR ATTENDANT 11/16/2023 9:00 AM EDT Office Visit Hematology and [place]cology [place] [address] Bisi Nam 11/22/2023 10:00 AM EDT Office Visit Speech Therapy [place] [address] Debra Franco BREAKFAST BAR ATTENDANT 11/30/2023 9:00 AM EDT Office Visit Hematology and [place]cology [place] [address] Bisi Nam 12/14/2023 9:00 AM EDT Office Visit Hematology and [place]cology [place] [address] Bisi Nam 12/28/2023 9:00 AM EDT Office Visit Hematology and [place]cology [place] [address] Bisi Nam documented as of this encounter Procedures Procedure Name Priority Date/Time Associated Diagnosis Comments DIFFERENTIAL, AUTOMATED Routine 11/30/2010 7:59 AM EDT GOLD TUBE HOLD Routine 11/30/2010 7:59 AM EDT CBC (WITH DIFF) Routine 11/30/2010 7:59 AM EDT PSA (ULTRASENSITIVE) Routine 11/30/2010 7:59 AM EDT LDL CHOLESTEROL, DIRECT Routine 11/30/2010 7:59 AM EDT HDL/CHOL PROFILE Routine 11/30/2010 7:59 AM EDT COMPREHENSIVE METABOLIC PANEL Routine 11/30/2010 7:59 AM EDT documented in this encounter Results * A-DIFF (11/30/2010 7:59 AM EDT) Neutrophil % 52.5 34.0 - 71.0 % CERNER MILLENNIUM Neutrophil Absolute 2.94 1.50 - 6.30 x10(3)/mcL CERNER MILLENNIUM Lymph % 34.8 19.0 - 53.0 % CERNER MILLENNIUM Lymphocytes Abs 2.0 1.0 - 3.6 x10(3)/mcL CERNER MILLENNIUM Monocyte % 8.8 4.0 - 13.0 % CERNER MILLENNIUM Monocyte Abs 0.5 0.2 - 1.0 x10(3)/mcL CERNER MILLENNIUM Eos % 3.2 0.0 - 7.0 % CERNER MILLENNIUM Eosinophils [...] x10(3)/mcL MARCO A BRYSONENNIUM Blood specimen (specimen) 11/30/2010 7:59 AM EDT 11/30/2010 10:34 AM EDT Molina Herr MD HEMATOLOGY ORDERABLE S [facility]CO A ROQUEIUM * GOLD TUBE HOLD (11/30/2010 7:59 AM EDT) Gold Hold Sample in lab. MARCO A ROQUEIUM Blood specimen (specimen) 11/30/2010 7:59 AM EDT 11/30/2010 10:34 AM EDT Molina Herr MD CHEMISTRY ORDERABLES [facility] RO[facility]IUM * PSA (11/30/2010 7:59 AM EDT) Prostate Specific Antigen (Ultrasensitiv e) 0.94 0.00 - 4.00 ng/mL CERNER MILLENNIUM Blood specimen (specimen) 11/30/2010 7:59 AM EDT 11/30/2010 10:34 AM EDT Molina Herr MD CHEMISTRY ORDERABLES Performing Organization Address [facility] Co de Phone Number MARCO A ROQUEIUM * (ABNORMAL) CBC (WITH DIFF) (11/30/2010 7:59 AM EDT) White Blood Cell 5.6 4.0 - 10.0 x10(3)/mc L CERNER MILLENNIUM Red Blood Cell 4.81 4.63 - 6.08 x10(6)/mc L CERNER MILLENNIUM Hemoglobin 13.2(L) 13.7 - 17.5 gm/dL CERNER MILLENNIUM Hematocrit 40.7 40.0 - 51.0 % CERNER MILLENNIUM Mean Cell Volume 84.6 79.0 - 92.0 fL CERNER MILLENNIUM Mean Cell Hemoglobin 27.4 25.6 - 32.2 pg CERNER MILLENNIUM Mean Cell Hemoglobin Concentration 32.4 32.0 - 36.5 gm/dL CERNER MILLENNIUM Platelet 250 145 - 370 x10(3)/mc L CERNER MILLENNIUM RDW Standard Deviation 43.8 35.0 - 46.0 fL CERNER MILLENNIUM RDW coefficient of variation 14.2 10.9 - 14.4 % CERNER MILLENNIUM Mean Platelet Volume 9.7 9.0 - 12.0 fL CERNER MILLENNIUM Blood specimen (specimen) 11/30/2010 7:59 AM EDT 11/30/2010 10:34 AM EDT Molina Herr MD HEMATOLOGY ORDERABLE S Performing Organization Address City/[facility] Co de Phone Number [facility] * HDL/CHOL PROFILE (11/30/2010 7:59 AM EDT) Cholesterol, Total 171 <=199 mg/dL [facility] Comment: Recommendations of the NCEP Adult Treatment Panel for the following risk cutoff thresholds for the [place] population: Desirable: <200 mg/dL Borderline High: 200-239 mg/dL High: > or = 240 mg/dL HDL Cholesterol 57 >=40 mg/dL [facility] Comment: Reference range: ??Low HDL: ?? < 40 mg/dL ??Normal: ?40-60 mg/dL ??Desirable: > 60 mg/dL NEYMAR 2001; 285(19):4789-7021 Cholesterol/HDL Ratio 3.0 ratio [facility] Comment: A Cholesterol to HDL ratio below 4:1 is desirable. ??Studies suggest that increased CAD risk occurs at ratios above 5 for females and above 6 for men. ? [place] Heart Association ??(http://www.americanheart.org) ? Ayde Int Med, 1994; 121:641 ? AM J Med, 1998; 105(1A):48S Blood specimen (specimen) 11/30/2010 7:59 AM EDT 11/30/2010 10:34 AM EDT Molina Herr MD CHEMISTRY ORDERABLES Performing Organization Address [facility] Co de Phone Number [facility] * (ABNORMAL) LDL CHOLESTEROL, DIRECT (11/30/2010 7:59 AM EDT) LDL Cholesterol, Direct 103(H) <=99 mg/dL [facility] Comment: The National Cholesterol Education Program (NCEP) has set the following guidelines for LDL Cholesterol: Reference range: ?? Optimal: ?<100 mg/dL ?? Near Optimal/Above Optimal: ?? 100-129 mg/dL ?? Borderline high: ?130-159 mg/dL ?? High: ? 160-189 mg/dL ?? Very high: ?>kv=445 mg/dL NEYMAR 2001: [id number]):[id number] Blood specimen (specimen) 11/30/2010 7:59 AM EDT 11/30/2010 10:34 AM EDT Molina Herr MD CHEMISTRY ORDERABLES CERNER MILLENNIUM * (ABNORMAL) COMPREHENSIVE METABOLIC PANEL (NON-FASTING) (11/30/2010 7:59 AM EDT) Glucose 93 60 - 199 mg/dL [facility]ERN[facility] MILLENNIUM Comment:Diabetes: >=200 mg/d L plus symptoms Blood Urea Nitrogen 22(H) 10 - 20 mg/dL CERNER MILLENNIUM Creatinine 1.07 0.80 - 1.50 mg/dL CERNER MILLENNIUM Sodium 140 135 - 145 mmol/L CERNER MILLENNIUM Potassium [...] - 31 mmol/L CERNER MILLENNIUM Anion Gap 9 5 - 15 mmol/L CERNER MILLENNIUM Calcium 9.2 8.5 - 10.5 mg/dL CERNER MILLENNIUM Protein, Total 6.9 6.4 - 8.3 gm/dL CERNER MILLENNIUM Albumin 4.1 3.2 - 5.2 gm/dL CERNER MILLENNIUM Aspartate Aminotransferase 21 0 - 39 unit/L CERNER MILLENNIUM Alanine Aminotransferase 16 0 - 55 unit/L CERNER MILLENNIUM Alkaline Phosphatase 62 40 - 120 unit/L CERNER MILLENNIUM Bilirubin, [...] disease. References: http://nkdep.nih.gov/resources/NKDEP_Suggestn4Labs_0606_508.pdf http://www.kidney.org/professionals/kls/pdf/faq_gfr.pdf Blood specimen (specimen) 11/30/2010 7:59 AM EDT 11/30/2010 10:34 AM EDT Molina Herr MD CHEMISTRY ORDERABLES MARCO A ROQUEIUM documented in this encounter Visit Diagnoses Not on filedocumented in this encounter Care Teams Cognos Bi Administrator Relationship Specialty Start Date End Date Molina Herr MD [address] [place] [address] PCP - General 01/27/10 documented as of this encounter
--- OUTSIDE RECORDS SUMMARY | 2023-10-17 15:14 | XMS_ITS | Encounter Summary ---
[place] [address] Care Team Providers Care Boom Crane Operator Name Role Phone Molina Herr MD Primary Care Provider Encounter Details Date Type Department Care Team (Late st Contact Info) Description 12/03/2013 Community Orders External [phone] Molina Herr MD [address] [address] [place] [address] Pain in lower limb, left Social History Tobacco Use Types Packs/Day [...] AM EDT Office [place] [address] Elly Alston MD [facility] [address] HOSPICE AND [place] [address] 10/27/2023 1:00 PM EDT Office Visit Speech Therapy at [place] [phone] Debra Franco, SHARE HOLDER 11/03/2023 2:00 PM EDT Office Visit Speech Therapy at [place] [phone] Debra Franco, SHARE HOLDER 11/08/2023 2:30 PM EDT Appointment MRI at [address] Navjot Grider MD [facility] [address] HEMATOLOGY [place] [address] 11/09/2023 1:45 PM EDT Office Visit Hematology and Oncology at [place] [address] Isabell Jacob MD [facility] [place] [place] [address] 11/11/2023 10:30 AM EDT Office Visit Radiation Oncology at [place] [address] Nicki Sharpe MD [facility] [place] [address] 11/15/2023 10:00 AM EDT Office Visit Speech Therapy at [place] [phone] Debra Franco, SHARE HOLDER 11/16/2023 9:00 AM EDT Office Visit Hematology and Oncology at [place] [phone] Bisi Nam 11/22/2023 10:00 AM EDT Office [place] [address] Debra Franco, SHARE HOLDER 11/30/2023 9:00 AM EDT Office Visit Hematology [place] [address] Bisi Nam 12/14/2023 9:00 AM EDT Office Visit Hematology [place] [address] Bisi Nam 12/28/2023 9:00 AM EDT Office Visit Hematology [place] [address] Bisi Nam documented as of this encounter Visit Diagnoses Diagnosis Pain in lower limb, left documented in this encounter Care Teams Boom Crane Operator Relationship Specialty Start Date End Date Molina Herr MD [address] [address] [place] [address] PCP - General 01/27/10 documented as of this encounter
--- OUTSIDE RECORDS SUMMARY | 2023-10-17 15:14 | XMS_ITS | Encounter Summary ---
Author Organization [facility] Address [facility] [place] [address] Care Team Providers Care Finishing Area Supervisor Name Role Phone Molina Herr MD Primary Care Provider [phone] Encounter Details Date Type Department Care Team (Latest Contact Info) Description 08/24/2010 2:49 PM EDT - 08/24/2010 11:59 PM EDT Hospital [place] [phone] Grace Randhawa MD [facility] [place] [place] [address] Osteomyelitis Discharge Disposition: Home Social History Tobacco Use [...] Sig Dispensed Refills Start Date End Date [id number] (SOURCE CF) 200-10 mcg-mg Chew Take 1 [...] Office Visit Palliative Medicine at [place] [phone] Elly Alston MD [facility] DR HOSPICE [place] [address] 10/27/2023 1:00 PM EDT Office Visit Speech Therapy at [place] [address] Debra Franco, ORTHOPAEDIC GENERAL 11/03/2023 2:00 PM EDT Office Visit Speech Therapy at [place] [phone] Debra Franco, ORTHOPAEDIC GENERAL 11/08/2023 2:30 PM EDT Appointment MRI at [address] Navjot Grider MD [facility] [place] [address] 11/09/2023 1:45 PM EDT Office Visit Hematology and Oncology at [place] [phone] Isabell Jacob MD [facility] [place] [address] 11/11/2023 10:30 AM EDT Office Visit Radiation Oncology at [address] Nicki Sharpe MD [facility] [place] [address] 11/15/2023 10:00 AM EDT Office Visit Speech [place] [address] Debra Franco, ORTHOPAEDIC GENERAL 11/16/2023 9:00 AM EDT Office Visit Hematology [place] [address] Bisi Nam 11/22/2023 10:00 AM EDT Office [place] [address] Debra Franco SLP 11/30/2023 9:00 AM EDT Office Visit Hematology [place] [address] Bisi Nam 12/14/2023 9:00 AM EDT Office Visit Hematology [place] [address] Bisi Nam 12/28/2023 9:00 AM EDT Office Visit Hematology [place] [address] Bisi Nam documented as of this encounter Procedures Procedure Name Priority Date/Time Associated Diagnosis Comments QUANTIFERON-TB GOLD Routine 08/24/2010 2 :59 PM EDT Osteomyelitis DIFFERENTIAL, AUTOMATED Routine 08/24/2010 2:59 PM EDT SEDIMENTATION RATE Routine 08/24/2010 2: 59 PM EDT Osteomyelitis CBC (WITH DIFF) Routine 08/24/2010 2:59 PM EDT Osteomyelitis CRP, CARDIAC RISK (HS CRP) Routine 08/24/2010 2:59 PM EDT Osteomyelitis documented in this encounter Results * REFLEX LAB-A-DIFF (08/24/2010 2:59 PM EDT) Neutrophil % 59.1 34.0 - 71.0 % CERNER MILLENNIUM Neutrophil Absolute 3.44 1.50 - 6.30 x10(3)/mcL CERNER MILLENNIUM Lymph % 26.9 19.0 - 53.0 % CERNER MILLENNIUM Lymphocytes Abs 1.6 1.0 - 3.6 x10(3)/mcL CERNER MILLENNIUM Monocyte % 9.3 4.0 - 13.0 % CERNER MILLENNIUM Monocyte [...] 0.05 x10(3)/mcL CERNER MILLENNIUM Blood specimen (specimen) 08/24/2010 2:59 PM EDT 08/24/2010 3:14 PM EDT rGace Randhawa MD HEMATOLOGY ORDERABLE S [facility] * QuantiFERON-TB Gold (08/24/2010 2:59 PM EDT) Pathologist [facility] Quantiferon-TB Gold Negative Negative [facility] Comment: M. tuberculosis (TB) infection NOT likely [...] assay will be performed in the [facility]. Please call , press 4; with questions. Blood specimen (specimen) 08/24/2010 2:59 PM EDT 08/25/2010 11:36 AM EDT Grace Randhawa MD CHEMISTRY ORDERABLES [facility] * High sensitivity CRP (08/24/2010 2:59 PM EDT) [facility] C-Reactive Protein High Sensitivity 2.0 mg/L MARCO A [facility] Comment: Interpretations: 1) For cardiac risk assessment, [...] 2:59 PM EDT 08/24/2010 3:14 PM EDT rGace Randhawa MD CHEMISTRY ORDERABLES Performing Organization Address [facility] de Phone Number CERNER MILLENNIUM * (ABNORMAL) Sedimentation rate, automated (08/24/2010 2:59 PM EDT) Sedimentation Rate Automated 24(H) 0 - 15 mm/hr CERNER MILLENNIUM Blood specimen (specimen) 08/24/2010 2:59 PM EDT 08/24/2010 3:14 PM EDT Grace Randhawa MD HEMATOLOGY ORDERABLE S Performing Organization Address [facility] de Phone Number CERNER MILLENNIUM * (ABNORMAL) [...] Cell Hemoglobin 26.1 25.6 - 32.2 pg MARCO A BRYSONENNIUM Mean Cell Hemoglobin Concentration 32.0 32.0 - 36.5 gm/dL MARCO A BRYSONENNIUM Platelet 254 145 - 370 x10(3)/mc L MARCO A BRYSONENNIUM RDW Standard Deviation 48.0(H) 35.0 - 46.0 fL MARCO A BRYSONENNIUM RDW coefficient of variation 16.2(H) 10.9 - 14.4 % MARCO A BRYSONENNIUM Mean Platelet Volume 9.0 9.0 - 12.0 fL MARCO A BRYSONENNIUM Blood specimen (specimen) 08/24/2010 2:59 PM EDT 08/24/2010 3:14 PM EDT Grace Randhawa MD HEMATOLOGY ORDERABLE S MARCO A WOLF documented in this encounter Visit Diagnoses Diagnosis Osteomyelitis Unspecified osteomyelitis, site unspecified documented in this encounter Care Teams Finishing Area Supervisor Relationship Specialty Start Date End Date Molina Herr MD [facility] [address] [place] [address] PCP - General 01/27/10 documented as of this encounter
--- OUTSIDE RECORDS SUMMARY | 2023-10-17 15:15 | XMS_ITS | Encounter Summary ---
[place] [address] Care Team Providers Care Testing Manager Name Role Phone Molina Herr MD Primary Care Provider Encounter Details Date Type Department Care Team (Late st Contact Info) Description 08/04/2010 [place] [phone] Molina Herr MD [address] [place] [address] Social History Tobacco Use Types Packs/Day Years [...] AM EDT Office [place] [phone] Elly Alston MD [facility] HOSPICE AND [place] [address] 10/27/2023 1:00 PM EDT Office Visit Speech Therapy at [place] [phone] Debra Franco, ROLANDO 11/03/2023 2:00 PM EDT Office Visit Speech Therapy at [place] [phone] Debra Franco, ANODISER 11/08/2023 2:30 PM EDT Appointment MRI at [place] [phone] Navjot Grider MD [facility] [place] [address] 11/09/2023 1:45 PM EDT Office Visit Hematology and Oncology at [place] [phone] Isabell Jacob MD [facility] [place] [address] 11/11/2023 10:30 AM EDT Office Visit Radiation Oncology at [place] [phone] Nicki Sharpe MD [facility] [place] [address] 11/15/2023 10:00 AM EDT Office [place] [address] Debra Franco, ANODISER 11/16/2023 9:00 AM EDT Office Visit Hematology [place] [address] Bisi Nam 11/22/2023 10:00 AM EDT Office [place] [address] Debra Franco, ANODISER 11/30/2023 9:00 AM EDT Office Visit Hematology [place] [address] Bisi Nam 12/14/2023 9:00 AM EDT Office Visit Hematology [place] [address] Bisi Nam 12/28/2023 9:00 AM EDT Office Visit [place]emat[place] [address] Bisi Nam Pending Results Name Type Priority Associated Diagnoses Date /Time IR CVIR ANGIO RECOVERY ROOM Imaging Routine 08/04/2010 4:30 PM EDT documented as of this encounter Visit Diagnoses Not on filedocumented in this encounter Care Teams Testing Manager Relationship Specialty Start Date End Date Molina Herr MD [facility] [address] [place] [address] PCP - General 01/27/10 documented as of this encounter
--- OUTSIDE RECORDS SUMMARY | 2023-10-17 15:15 | XMS_ITS | Encounter Summary ---
Author Organization [facility] [place] [address] Care Team Providers Care Chart Computer Name Role Phone Molina Herr MD Primary Care Provider [phone] Encounter Details Date Type Department Care Team (Late st Contact Info) Description 08/04/2010 1:45 PM EDT - 08/04/2010 11:59 PM EDT Hospital En[place] [address] Social History Tobacco Use Types Packs/Day Years Used Date Smoking Tobacco: Never Assessed Sex and Gender Information Value Date Recorded Sex Assigned at Male 02/02/2021 9:04 PM EST Gender Identity Male 02/02/2021 9:04 PM EST Sexual Orientation Not on file documented as of this encounter Medications at Time of Discharge Medication Sig Dispensed Refills Start Date End Date [id number] (SOURCE CF) 200-10 mcg-mg Chew Take 1 [...] Office Visit Palliative Medicine at [place] [address] Elly Alston MD [facility] [address] HOSPICE [place] [address] 10/27/2023 1:00 PM EDT Office Visit Speech Therapy at [place] [address] Debra Franco, POLICE LIEUTENANT PATROL 11/03/2023 2:00 PM EDT Office Visit Speech Therapy at [place] [address] Debra Franco, POLICE LIEUTENANT PATROL 11/08/2023 2:30 PM EDT Appointment MRI at [place] [address] Navjot Grider MD [facility] [place] [address] 11/09/2023 1:45 PM EDT Office Visit Hematology and Oncology at [place] [address] Isabell Jacob MD [facility] [place] [address] 11/11/2023 10:30 AM EDT Office Visit Radiation Oncology at [place] [address] Nicki Sharpe MD [facility] [place] [address] 11/15/2023 10:00 AM EDT Office Visit Speech Therapy at [place] [phone] Debra Franco, POLICE LIEUTENANT PATROL 11/16/2023 9:00 AM EDT Office Visit Hematology [place] [address] Bisi Nam 11/22/2023 10:00 AM EDT Office [place] [address] Debra Franco, POLICE LIEUTENANT PATROL 11/30/2023 9:00 AM EDT Office Visit Hematology [place] [address] Bisi Nam 12/14/2023 9:00 AM EDT Office Visit Hematology [place] [address] Bisi Nam 12/28/2023 9:00 AM EDT Office Visit Hematology [place] [address] Bisi Nam documented as of this encounter Visit Diagnoses Not on filedocumented in this encounter Care Teams Chart Computer Relationship Specialty Start Date End Date Molina Herr MD [facility] [address] [place] [address] PCP - General 01/27/10 documented as of this encounter
--- OUTSIDE RECORDS SUMMARY | 2023-10-17 15:15 | XMS_ITS ---
Author Organization [facility] [place] [address] Care Team Providers Care Shell Trim Tool Setter Name Role Phone Molina Herr MD Primary Care Provider [phone] HemOnc Status:Enrolled (Active) Start date:08/25/2023 Enrollment date:08/25/2023 Enrollment reason:Enrolled - Currently Fills with Specialty Current support & services provided:Clinical Management, Refill Management Linked medications:temozolomide (Active) Linked problems:Brain tumor (Active), Glioblastoma of temporal lobe (Active) Continued Care and Services Coordination
--- OUTSIDE RECORDS SUMMARY | 2023-10-17 15:15 | XMS_ITS | Encounter Summary ---
Author Organization [facility] [place] [address] Care Team Providers Care Salon Assistant Name Role Phone Molina Herr MD Primary Care Provider [phone] Encounter Details Date Type Department Care Team (Late st Contact Info) Description 08/04/2010 1:45 PM EDT - 08/04/2010 11:59 PM EDT Hospital Encounter [place] [address] Social History Tobacco Use Types Packs/Day Years Used Date Smoking Tobacco: Never Assessed Sex and Gender Information Value Date Recorded Sex Assigned at Male 02/02/2021 9:04 PM EST Gender Identity Male 02/02/2021 9:04 PM EST Sexual Orientation Not on file documented as of this encounter Medications at Time of Discharge Medication Sig Dispensed Refills Start Date End Date [id number] (SOURCE CF) 200-10 mcg-mg Chew Take 1 [...] as of this encounter Progress Notes * Rivera Arana RN - 07/31/2010 11:16 AM EDT [facility] NURSING DATABASE Name: PERFECTO REED Date of : 1940 Address: [place] [facility] [address] (home) Referring Provider: Molina Herr Reason for Visit: CT guided L1 - L2 biopsy Allergies Allergen Reactions ??? Penicillins CIS - Hives Pertinent PMH: 1. Hemorrhoidal rectal bleeding; negative sigmoidoscopy 1997. 2. Degenerative joint disease; right knee arthroscopy via [facility] Jenkins 1993 and 1988. 3. Testicular biopsy; 4. Hypothyroidism Pertinent PSH: No past surgical history on file. Date/Procedure Comments: Laboratory Results: No results found for this basename: inr No results found for this basename: PT, PTT Lab Results Component Value Date BUN 24* 07/14/2010 Lab Results Component Value Date CREATININE 1.11 07/14/2010 Lab Results Component Value Date K 3.9 07/14/2010 Lab Results Component Value Date PLATELET 358 07/14/2010 Medications: Prior to Admission medications Medication Sig Start Date End Date Taking? Authorizing Provider levothyroxine (SYNTHROID) 25 mcg tablet 25MCG = 1 Tablet(s), PO, Once daily 09/27/07 atorvastatin (LIPITOR) 10 mg tablet 10mg, PO, Once daily 09/27/07 pantoprazole (PROTONIX) 40 mg tablet 40MG, PO, Once daily 09/27/07 documented in this encounter Plan of Treatment Upcoming Encounters Date Type Department Care Team (Late st Contact Info) Description 10/27/2023 11:15 AM EDT Office Visit Pall[place] [address] Elly Alston MD [facility] DR HOSPICE AND [place] [address] 10/27/2023 1:00 PM EDT Office Visit [place] [address] Debra Franco, DRAW FRAME OPERATOR 11/03/2023 2:00 PM EDT Office Visit Speech Therapy at [place] [phone] Debra Franco, DRAW FRAME OPERATOR 11/08/2023 2:30 PM EDT Appointment MRI at [place] [address] Navjot Grider MD [facility] [address] [place] [address] 11/09/2023 1:45 PM EDT Office Visit Hematology and Oncology at [place] [phone] Isabell Jacob MD [facility] [place] [address] 11/11/2023 10:30 AM EDT Office Visit Radiation Oncology at [place] [phone] Nicki Sharpe MD [facility] [place] [address] 11/15/2023 10:00 AM EDT Office Visit [place] [address] Debra Franco, ROLANDO 11/16/2023 9:00 AM EDT Office Visit Hematology [place] [address] Bisi Nam 11/22/2023 10:00 AM EDT Office Visit [place] [address] Debra Franco, ROLANDO 11/30/2023 9:00 AM EDT Office Visit Hematology [place] [address] Bisi Nam 12/14/2023 9:00 AM EDT Office Visit Hematology [place] [address] Bisi Nam 12/28/2023 9:00 AM EDT Office Visit Hematology [place] [address] Bisi Nam documented as of this encounter Visit Diagnoses Not on filedocumented in this encounter Care Teams Salon Assistant Relationship Specialty Start Date End Date Molina Herr MD [facility] [address] [place] [address] PCP - General 01/27/10 documented as of this encounter
--- OUTSIDE RECORDS SUMMARY | 2023-10-17 15:15 | XMS_ITS | Encounter Summary ---
Author Organization [facility] [place] [address] Care Team Providers Care Yoke Setter Name Role Phone Molina Herr MD Primary Care Provider [phone] Encounter Details Date Type Department Care Team (Latest Contact Info) Description 08/04/2010 1:27 PM EDT - 08/04/2010 11:59 PM EDT Hospital [place] [address] William Edgar MD [facility] [place] [address] Discharge Disposition: Home Social History Tobacco Use Types Packs/Day Years Used Date Smoking Tobacco: Never Assessed Sex and Gender Information Value Date Recorded Sex Assigned at Male 02/02/2021 9:04 PM EST Gender Identity Male 02/02/2021 9:04 PM EST Sexual Orientation Not on file documented as of this encounter Medications at Time of Discharge Medication Sig Dispensed Refills Start Date End Date zsmhlpyzsjkiy-OO-qsab (SOURCE CF) 200-10 mcg-mg Chew Take 1 [...] daily. 07/05/2023 documented as of this encounter Miscellaneous Notes * Miscellaneous - Provider, Scanning - 08/19/2010 12:40 PM EDT documented in this encounter Plan of Treatment Upcoming Encounters Date Type Department Care Team (Late st Contact Info) Description 10/27/2023 11:15 AM EDT Office Visit Palliative Medicine at [place] [phone] Elly Alston MD [facility] HOSPICE [place] [address] 10/27/2023 1:00 PM EDT Office Visit Speech Therapy at [place] [address] Debra Franco, CLOTHESPIN DRIER OPERATOR 11/03/2023 2:00 PM EDT Office Visit Speech Therapy at [place] [phone] Debra Franco, CLOTHESPIN DRIER OPERATOR 11/08/2023 2:30 PM EDT Appointment MRI at [address]1000 Navjot Grider MD [facility] [place] [address] 11/09/2023 1:45 PM EDT Office Visit Hematology and Oncology at [place] [phone] Isabell Jacob MD [facility] [address] 11/11/2023 10:30 AM EDT Office Visit Radiation Oncology at [place] [phone] Nicki Sharpe MD [facility] [place] [address] 11/15/2023 10:00 AM EDT Office [place] [address] Debra Franco, CLOTHESPIN DRIER OPERATOR 11/16/2023 9:00 AM EDT Office Visit Hematology [place] [address] Bisi Nam 11/22/2023 10:00 AM EDT Office [place] [address] Debra Franco CLOTHESPIN DRIER OPERATOR 11/30/2023 9:00 AM EDT Office Visit Hematology [place] [address] Bisi Nam 12/14/2023 9:00 AM EDT Office Visit Hematology [place] [address] Bisi Nam 12/28/2023 9:00 AM EDT Office Visit Hematology [place] [address] Bisi Nam documented as of this encounter Procedures Procedure Name Priority Date/Time Associated Diagnosis Comments APTT Routine 08/04/2010 1:35 PM EDT PROTHROMBIN TIME Routine 08/04/2010 1:35 PM EDT documented in this encounter Results * APTT (08/04/2010 1:35 PM EDT) [facility] Signature Partial Thromboplastin Time 35 25 - 37 sec [facility] Comment: Recommended therapeutic PTT range for full dose unfractionated heparin is 80-114 seconds. Blood specimen (specimen) 08/04/2010 1:35 PM EDT 08/04/2010 1:44 PM EDT William Edgar MD HEMATOLOGY ORDERABLE S Performing Organization Address [facility] [[email or web address]] de Phone Number MARCO A WOLF * PROTHROMBIN TIME (08/04/2010 1:35 PM EDT) Prothrombin Time 14.1 12.3 - 14.7 sec CERDANIELLE BRYSONENNIUM Comment: [facility] Transfusion Committee Guidelines: INR less than 2.0, PTT less than OR equal to 43.5 seconds, or Fibrinogen greater than or equal to 100 mg/dl indicate adequate procoagulant activity for hemostasis in patients without underlying bleeding disorders. International Normalization Ratio 1.1 0.9 - 1.1 CERDANIELLE MimviENNIUM Blood specimen (specimen) 08/04/2010 1:35 PM EDT 08/04/2010 1:44 PM EDT William Edgar MD HEMATOLOGY ORDERABLE S Performing Organization Address [facility] [[email or web address]] de Phone Number MARCO A WOLF documented in this encounter Visit Diagnoses Not on filedocumented in this encounter Care Teams Yoke Setter Relationship Specialty Start Date End Date Molina Herr MD [facility] [address] [place] [address] PCP - General 01/27/10 documented as of this encounter
--- OUTSIDE RECORDS SUMMARY | 2023-10-17 15:15 | XMS_ITS | Encounter Summary ---
Author Organization [facility] [place] [address] Care Team Providers Care Journeyman [employer] Name Role Phone Molina Herr MD Primary Care Provider [phone] Encounter Details Date Type Department Care Team (Latest Contact Info) Description 07/14/2010 5:59 PM EDT - 07/14/2010 11:59 PM EDT [place] [id number] Molina Herr MD [address] [place] [address] Discharge Disposition: Home Social History Tobacco Use Types Packs/Day Years Used Date Smoking Tobacco: Never Assessed Sex and Gender Information Value Date Recorded Sex Assigned at Male 02/02/2021 9:04 PM EST Gender Identity Male 02/02/2021 9:04 PM EST Sexual Orientation Not on file documented as of this encounter Medications at Time of Discharge Medication Sig Dispensed Refills Start Date End Date levothyroxine (SYNTHROID) 25 mcg tablet 25MCG = 1 Tablet(s), PO, Once daily 09/27/2007 atorvastatin (LIPITOR) 10 mg tablet Take 20 mg by mouth. 09/27/2007 documented as of this encounter Plan of Treatment Upcoming Encounters Date Type Department Care Team (Late st Contact Info) Description 10/27/2023 11:15 AM EDT Office Visit Palliative Medicine at [place] [address] Elly Alston MD [facility] [address] HOSPICE [place] [address] 10/27/2023 1:00 PM EDT Office Visit Speech Therapy at [place] [address] Debra Franoc, THREAD INSPECTOR 11/03/2023 2:00 PM EDT Office Visit Speech Therapy at [place] [address] Debra Franco, THREAD INSPECTOR 11/08/2023 2:30 PM EDT Appointment MRI at [place] [address] Navjot Grider MD [facility] [address] [place] [address] 11/09/2023 1:45 PM EDT Office Visit Hematology and Oncology at [place] [address] Isabell Jacob MD [facility] [place] [address] 11/11/2023 10:30 AM EDT Office Visit Radiation Oncology at [place] [address] Nicki Sharpe MD [facility] [place] [address] 11/15/2023 10:00 AM EDT Office Visit Speech Therapy at [place] [phone] Debra Franco, THREAD INSPECTOR 11/16/2023 9:00 AM EDT Office Visit Hematology and Oncology at [place] [address] Bisi Nam 11/22/2023 10:00 AM EDT Office [place] [address] Debra Franco, THREAD INSPECTOR 11/30/2023 9:00 AM EDT Office Visit Hematology [place] [address] Bisi Nam 12/14/2023 9:00 AM EDT Office Visit Hematology [place] [address] Bisi Nam 12/28/2023 9:00 AM EDT Office Visit Hematology [place] [address] Bisi Nam documented as of this encounter Procedures Procedure Name Priority Date/Time Associated Diagnosis Comments BLOOD CULTURE Routine 07/14/2010 6:09 PM EDT DIFFERENTIAL, AUTOMATED Routine 07/14/2010 4:40 PM EDT GOLD TUBE HOLD Routine 07/14/2010 4:40 PM EDT SEDIMENTATION RATE Routine 07/14/2010 4: 40 PM EDT CBC (WITH DIFF) Routine 07/14/2010 4:40 PM EDT COMPREHENSIVE METABOLIC PANEL Routine 07/14/2010 4:40 PM EDT documented in this encounter Results * BLOOD CULTURE (07/14/2010 6:09 PM EDT) Blood Culture ? Patient Name: PERFECTO POLK ? Ordered By: MOLINA HERR ? MR#: [id number] ?LOC: ??[facility] ? /Sex: ??1940 (69 years), ? Male ? PROCEDURE: Blood Culture ?SOURCE: Blood ? COLLECTED: 07/14/2010 18:09 ? BODY SITE: Peripheral ? STARTED: 07/14/2010 18:10 ? FINAL REPORT ? Final Report ? Verified:2010 15:06 ? No growth at 5 days. ? PRELIMINARY REPORT ? Preliminary Report ? Verified:2010 23:05 ? No growth at 4 days. ? CERNER MILLENNIUM Blood specimen (specimen) PERIPHERAL BLOOD / Unknown 07/14/2010 6:09 PM EDT 07/14/2010 6:09 PM EDT Molina Herr MD MICROBIOLOGY - BLOOD ORDERABLES CERDANIELLE BRYSONENNIUM * REFLEX LAB-A-DIFF (07/14/2010 4:40 PM EDT) Neutrophil % 66.1 34.0 - 71.0 % CERNER MILLENNIUM Neutrophil Absolute 4.14 1.50 - 6.30 x10(3)/mcL CERNER MILLENNIUM Lymph % 23.3 19.0 - 53.0 % CERNER MILLENNIUM Lymphocytes Abs 1.5 1.0 - 3.6 x10(3)/mcL CERNER MILLENNIUM Monocyte % 7.2 4.0 - 13.0 % CERNER MILLENNIUM Monocyte Abs 0.5 0.2 - 1.0 x10(3)/mcL CERNER MILLENNIUM Eos % 2.7 0.0 - 7.0 % CERNER MILLENNIUM Eosinophils [...] 0.01 0.00 - 0.05 x10(3)/mcL MARCO A ROQUEIUM Blood specimen (specimen) 07/14/2010 4:40 PM EDT 07/14/2010 6:16 PM EDT Molina Herr MD HEMATOLOGY ORDERABLE S Performing Organization Address City/[facility] Co de Phone Number MARCO A WOLF * GOLD TUBE HOLD (07/14/2010 4:40 PM EDT) Gold Hold Sample in lab. MARCO A WOLF Blood specimen (specimen) 07/14/2010 4:40 PM EDT 07/14/2010 6:16 PM EDT Molina Herr MD CHEMISTRY ORDERABLES Performing Organization Address [facility] Co de Phone Number MARCO A ROQUEIUM * (ABNORMAL) SEDIMENTATION RATE (07/14/2010 4:40 PM EDT) Sedimentation Rate Automated 59(H) 0 - 15 mm/hr MARCO A BRYSONENNIUM Blood specimen (specimen) 07/14/2010 4:40 PM EDT 07/14/2010 6:16 PM EDT Molina Herr MD HEMATOLOGY ORDERABLE S Performing Organization Address [facility] Co de Phone Number CERNER MILLENNIUM * (ABNORMAL) CBC (WITH DIFF) (07/14/2010 4:40 PM EDT) White Blood Cell 6.3 4.0 - 10.0 x10(3)/mc L CERNER MILLENNIUM Red Blood Cell 4.28(L) 4.63 - 6.08 x10(6)/mc L CERNER MILLENNIUM Hemoglobin 11.0(L) 13.7 - 17.5 gm/dL CERNER MILLENNIUM Hematocrit 35.1(L) 40.0 - 51.0 % CERNER MILLENNIUM Mean Cell Volume 82.0 79.0 - 92.0 fL CERNER MILLENNIUM Mean Cell Hemoglobin 25.7 25.6 - 32.2 pg CERNER MILLENNIUM Mean Cell Hemoglobin Concentration 31.3(L) 32.0 - 36.5 gm/dL CERNER MILLENNIUM Platelet 358 145 - 370 x10(3)/mc L CERNER MILLENNIUM RDW Standard Deviation 43.6 35.0 - 46.0 fL CERNER MILLENNIUM RDW coefficient of variation 14.6(H) 10.9 - 14.4 % CERNER MILLENNIUM Mean Platelet Volume 9.3 9.0 - 12.0 fL CERNER MILLENNIUM Blood specimen (specimen) 07/14/2010 4:40 PM EDT 07/14/2010 6:16 PM EDT Molina Herr MD HEMATOLOGY ORDERABLE S CERNER MILLENNIUM * (ABNORMAL) COMPREHENSIVE METABOLIC PANEL (NON-FASTING) (07/14/2010 4:40 PM EDT) Glucose 106 60 - 199 mg/dL CERNER MILLENNIUM Comment:Diabetes: >=200 mg/d L plus symptoms Blood Urea Nitrogen 24(H) 10 - 20 mg/dL CERNER MILLENNIUM Creatinine 1.11 0.80 - 1.50 mg/dL CERNER MILLENNIUM Sodium 141 135 - 145 mmol/L CERNER MILLENNIUM Potassium 3.9 3.5 - 5.0 mmol/L CERNER MILLENNIUM Comment: Please note: ??Patients with WBC >100,000 may have falsely elevated Potassium levels. ??For accurate Potassium quantification in these patients send serum separator tube (gold top) for subsequent determinations. ??Contact the Clinical Chemistry Laboratory if there are any questions. Chloride 104 98 - 107 mmol/L CERNER MILLENNIUM Carbon Dioxide 30 22 - 31 mmol/L CERNER MILLENNIUM Anion Gap 7 5 - 15 mmol/L CERNER MILLENNIUM Calcium 9.0 8.5 - 10.5 mg/dL CERNER MILLENNIUM Protein, Total 7.4 6.4 - 8.3 gm/dL CERNER MILLENNIUM Albumin 3.8 3.2 - 5.2 gm/dL CERNER MILLENNIUM Aspartate Aminotransferase 19 0 - 39 unit/L CERNER MILLENNIUM Alanine Aminotransferase 15 0 - 55 unit/L CERNER MILLENNIUM Alkaline Phosphatase 67 40 - 120 unit/L CERNER MILLENNIUM Bilirubin, Total 0.1(L) 0.2 - 1.3 mg/dL CERNER MILLENNIUM Bilirubin, [...] disease. References: http://nkdep.nih.gov/resources/NKDEP_Suggestn4Labs_0606_508.pdf http://www.kidney.org/professionals/kls/pdf/faq_gfr.pdf Blood specimen (specimen) 07/14/2010 4:40 PM EDT 07/14/2010 6:13 PM EDT Molina Herr MD CHEMISTRY ORDERABLES Performing Organization Address City/State/ZIP Co md Phone Number [facility] documented in this encounter Visit Diagnoses Not on filedocumented in this encounter Care Teams Journeyman Tool And [employer] Maker Relationship Specialty Start Date End Date Molina Herr MD [facility] [address] [place] [address] PCP - General 01/27/10 documented as of this encounter
--- OUTSIDE RECORDS SUMMARY | 2023-10-17 15:15 | XMS_ITS | Encounter Summary ---
Author [place] [address] Care Team Providers Care Asphalt Spreader Operator Name Role Phone Molina Herr MD Primary Care Provider [phone] Encounter Details Date Type Department Care Team (Latest Contact Info) Description 08/04/2010 1:44 PM EDT - 08/04/2010 11:59 PM EDT Hospital [place] [phone] CLINIC, Molina Aragon MD [address] [place] [address] Discharge Disposition: Home Social History Tobacco Use Types Packs/Day Years Used Date Smoking Tobacco: Never Assessed Sex and Gender Information Value Date Recorded Sex Assigned at Male 02/02/2021 9:04 PM EST Gender Identity Male 02/02/2021 9:04 PM EST Sexual Orientation Not on file documented as of this encounter Last Filed Vital Signs Vital Sign Reading Time Taken Comments Blood Pressure 117/77 08/04/2010 5:00 PM EDT Pulse 69 08/04/2010 5:00 PM EDT Temperature 36.9 ??C (98.4 ??F) 08/04/2010 4:30 PM ED T Respiratory Rate 18 08/04/2010 5:00 PM EDT Oxygen Saturation 98% 08/04/2010 5:00 PM EDT Inhaled Oxygen Concentration - - Weight - - Height - - Body Mass Index - - documented in this encounter Discharge Instructions * Discharge Instructions* Blessing Lopez RN - 08/04/2010 5:21 PM EDT [facility] Vascular and Interventional Radiology Biopsy Discharge Instructions Liver, kidney or bone biopsy: call your doctor immediately if you develop a sudden onset of weakness, increased pain or swelling at the biopsy site or heavy bleeding at the biopsy site. Lung biopsy: coughing up a little blood is common during the next 24 hours. If large blood clots come up, or if the bleeding gets worse, you should contact us or your doctor immediately. The most common complication is collapse of the lung. The symptoms of lung collapse are increasing pain on breathing, often extending into the shoulder on the side of the biopsy, and increasing difficulty breathing. If these symptoms occur after you leave the hospital, have someone drive you to the nearest Emergency Department as it must be treated promptly or call 911. Activity And Diet: Go home and rest quietly for the remainder of the day. You may resume your normal activities tomorrow. Resume your usual diet after the procedure. When to call your healthcare provider: If you see any redness, swelling or drainage at the biopsy site. If you develop chills. If you have a fever greater than or equal to 101 degrees Fahrenheit. If you develop pain around the biopsy site. Bandage: Check the dressing/bandaid throughout the day for an increase in drainage. Keep the biopsy site dryfor 24 hours. Replace the bandaid as needed. You may shower 24 hours after the biopsy. Medication: DO NOT take aspirin-containing products, ibuprofen, or blood-thinning medication for the next 24 hours unless your doctor says you may do so. Generally you may use acetaminophen as needed for discomfort unless you have liver disease and are instructed not to take acetaminophen. Biopsy Results: The results of your biopsy should be available within 5 business days and will be reported to you by your primary hiv/aids care nurse or the clinician who ordered the biopsy. Please do not call us for results as we will not have them. If you have not been contacted by your clinician within 5 business days you should call that officefor further information. When to call the Interventional Radiology Department: Please call with any questions or concerns. If it is during regular office hours, please call [phone]. If it is after regular office hours, or on weekends or holidays, please call [phone] and ask to speak to the Rivet Flunky assistant front office manager for Interventional Radiology. Revised 07/24/2008 documented in this encounter Medications at Time of Discharge Medication Sig Dispensed Refills Start Date End Date xiglardaonjaj-BY-wade (SOURCE CF) 200-10 mcg-mg Chew Take 1 [...] as of this encounter Progress Notes * Laurence Gay RN - 08/04/2010 4:17 PM EDT 08/04/2010 CT guided L1-2 biopsy (meds given: versed 5mg, fentanyl 250mcgs IV) OPD Tolerated well * Kevin Moore MD - 08/04/2010 3:14 PM EDT Preprocedure Note: CT guided L1-L2 disk space biopsy under moderate IV sedation PCP: MOLINA HERR MD Indication: 69 y/o Male with acute onset of back pain in May. MR L spine (07/13/2010) demonstrated abnormal signal of L1 & L2 level concerning for diskitis-osteomyelitis. Review of Systems: Review of Systems Past Medical and Surgical History: No past medical history on file. No past surgical history on file. MEDS: Current outpatient prescriptions ordered prior to encounter Medication Sig Dispense Refill ??? levothyroxine (SYNTHROID) 25 mcg tablet 25MCG = 1 Tablet(s), PO, Once daily ??? atorvastatin (LIPITOR) 10 mg tablet 10mg, PO, Once daily ??? pantoprazole (PROTONIX) 40 mg tablet 40MG, PO, Once daily No current facility-administered medications on file prior to encounter. Allergies: Allergies Allergen Reactions ??? Penicillins CIS - Hives Family History: No family history on file. Social History and Habits: History Social History ??? Marital Status: Spouse Name: N/A Number of Children: N/A ??? Years of Education: N/A Occupational History ??? Not on file. Social History Main Topics ??? Smoking status: Not on file ??? Smokeless tobacco: Not on file ??? Alcohol Use: Not on file ??? Drug Use: Not on file ??? Sexually Active: Not on file Other Topics Concern ??? Not on file Social History Narrative ??? No narrative on file Immunizations: Immunization History Administered Date(s) Administered ??? H1n1 04/09/2009 ??? Influenza Whole 01/07/2008 Physical Exam: Last Set of Vitals: Last value Range last 24 hrs Temperature Temp: 36.6 ??C (97.9 ??F) Temp: [36.6 ??C (97.9 ??F)] Heart Rate Heart Rate: 71 Heart Rate: [71] Blood Pressure BP: 131/81 mmHg BP: (131)/(81) Respiratory Rate Resp: 16 Resp: [16] SpO2 SpO2: 97 % SpO2: [97 %] Laboratory (Last 24 Hours): Lab Results Component Value Date WBC 6.3 07/14/2010 HCT 35.1* 07/14/2010 INR 1.1 08/04/2010 BUN 24* 07/14/2010 No results found for this basename: PLATELET in the last 168 hours Lab Results Component Value Date WBC 6.3 07/14/2010 RBC 4.28* 07/14/2010 HGB 11.0* 07/14/2010 HCT 35.1* 07/14/2010 MCV 82.0 07/14/2010 MCH 25.7 07/14/2010 MCHC 31.3* 07/14/2010 PLATELET 358 07/14/2010 RDWCV 14.6* 07/14/2010 Radiology: MRI - 07/13/2010 Physical Exam: Heart: S1,S2 RRR Lungs: Clear ASA Classification ___ Class 1 Healthy patient, no medical problems __x_ Class 2 Mild systemic disease ___ Class 3 Severe systemic disease, but not incapacitating ___ Class 4 Severe systemic disease that is a constant threat to life ___ Class 5 Moribund, not expected to live 24 hours irrespective of operation Mallampati Classification _x__ Class I: soft palate, fauces, uvula, pillars ___ Class II: soft palate, fauces, portion of uvula ___ Class III: soft palate, base of uvula ___ Class IV: hard palate only Medications to discontinue for procedure: none Prophylactic antibiotic: Pt on Levaquin Planned access site / position: prone/ L1-L2 A copy of this document will be sent to the patient's Primary Care Physician and/or Referring Physician. KEVIN MOORE 08/04/2010 documented in this encounter Plan of Treatment Upcoming Encounters Date Type Department Care Team (Late st Contact Info) Description 10/27/2023 11:15 AM EDT Office Visit Palliative Medicine at [place] [phone] Elly Alston MD [facility] DR HOSPICE AND [place] [address] 10/27/2023 1:00 PM EDT Office Visit Speech Therapy at [place] [phone] Debra Franco, MENTAL HEALTH CONSULTANT 11/03/2023 2:00 PM EDT Office [place] [address] Debra Franco, MENTAL HEALTH CONSULTANT 11/08/2023 2:30 PM EDT Appointment MRI at [place] [phone] Navjot Grider MD [facility] HEMATOLOGY [place] [address] 11/09/2023 1:45 PM EDT Office Visit Hematology [place] [address] Isabell Jacob MD [facility] [place] [address] 11/11/2023 10:30 AM EDT Office Visit Radiation Oncology at [place] [phone] Nicki Sharpe MD [facility] [place] [address] 11/15/2023 10:00 AM EDT Office [place] [address] Debra Franco, MENTAL HEALTH CONSULTANT 11/16/2023 9:00 AM EDT Office Visit Hematology [place] [address] Bisi Nam 11/22/2023 10:00 AM EDT Office [place] [address] Debra Franco, MENTAL HEALTH CONSULTANT 11/30/2023 9:00 AM EDT Office Visit Hematology [place] [address] Bisi Nam 12/14/2023 9:00 AM EDT Office Visit [place] [address] Bisi Nam 12/28/2023 9:00 AM EDT Office Visit [place] [address] Bisi Nam documented as of this encounter Procedures Procedure Name Priority Date/Time Associated Diagnosis Comments PATHOLOGY FLOW CYTOMETRY REPORT Routine 08/04/2010 4:58 PM EDT SURGICAL PATHOLOGY REPORT Routine 2010 4:58 PM EDT ANAEROBIC CULTURE Routine 08/04/2010 4:5 1 PM EDT FUNGAL STAIN Routine 08/04/2010 4:51 PM EDT TISSUE CULTURE Routine 08/04/2010 4:51 PM EDT FUNGUS CULTURE Routine 08/04/2010 4:[address] GUIDED BIOPSY BONE(EXTREMITIES/PELVIS) Routine 08/04/2010 4:19 PM EDT IMMUNOPHENOTYPING FLOW CYTOMETRY (BLOOD) Routine 08/04/2010 7:34 AM EDT documented in this encounter Results * SURGICAL PATHOLOGY REPORT (08/04/2010 4:58 PM EDT) Surgical Pathology Report ? [facility] ? Provider: ?? MOLINA HERR ? Pt. Name: ?? PERFECTO POLK X ? Acc #: ?[id number] ?Pt. ? Col Date: ?? 08/04/2010 ? /Sex: ?1940,(69 years),Male ? Rec Date: ?? 08/04/2010 ? LOC: ?3W ? SURGICAL PATHOLOGY ? ---Pathologic Diagnosis--- ? 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 ? CR-0 ? 08/07/10 ? BJM ? 08/10/10 Verified by: ? Nikia SUNG, Melchor ? Pathologist ? (Electronic Signature) ? The attending pathologist whose signature appears on this report has ? reviewed all diagnostic slides and has edited the gross and/or ? microscopic portion of the report in rendering the final pathologic ? diagnosis. ? ---Microscopic Description--- ? Slides reviewed, microscopic description not recorded. ? ---Gross Description--- ? Labeled/Fixative: ? Labeled with the patient's name, fresh. ? Qty/Size/Weight: ?Two cylindrical needle cores of bony tissue, ? 0.4 x 0.2 x 0.2 cm. ? Sections/Processin g: ??One portion of tissue is submitted for flow ? cytometry, per request. ??The second is submitted in ? one cassette following decalcification. ??A business center representative portion is ? submitted for decalcification (block A1). ??(T1) ??vms/EJR ? ---Clinical Information--- ? Specimen Submitted: ? A - CT guided L1-2 bone bx ? Clinical History/Diagnosis: ? 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 [facility] ? Provider: ?? MOLINA HERR ? Pt. Name: ?? PERFECTO POLK X ? Acc #: ?Pt. ? Col Date: ?? 08/04/2010 ? /Sex: ?1940,(69 years),Male ? Rec Date: ?? 08/04/2010 ? LOC: ?3W ? ANALYTICAL CELL PATHOLOGY ? ---Clinical Information--- ? acute back pain. Abnormal MR ; L1-L2 ? ---Preparation--- ? Surgical Biopsy ? [id number], [id number] ? ---Markers--- ?Lymphoid (T) ? CD3 ? pos ? CD4/CD3 ? pos ? CD8/CD3 ? pos ?Lymphoid (B) ? CD19 ?pos (minor) ? kappa ? TFTC ? lambda ?TFTC ? ---Interpretation--- ?Cells for immunophenotypic analysis were derived from biopsy. ??A ? lymphoid region, comprising approximately 11-15% of all cells was used for ? gated analysis. ??CD3 positive T-lymphocytes are an admixture of CD4 and ? CD8. CD19 positive B-lymphocytes are too few, which precludes further ? delineation by Ig light chains. ?Diagnosis: ??No monotypic B-cell population detected. T-lymphocytes ? with normal CD4: CD8 ratio. see comment. HISTOLOGIC CORRELATION REQUIRED. ? see comment. ? 08/05/10 ? TMS ? 08/05/10 Verified by: ? Ulysses Millan MD ? Hematopathologist ? (Electronic Signature) ? ---Comment--- ?Flow analysis is an ancillary study. A definite diagnosis requires ? correlation with the morphologic features of this process and if necessary, ? correlation with other ancillary studies like immunohistochemistry , enzyme ? cytochemistry and/or cyto/molecular genetics. ?This test was developed and its performance characteristics determined ? by the Clinical Flow Cytometry Laboratory at [facility]. It has not been cleared or approved by the U.S. Food and Drug ? Administration. ??The FDA has determined that such clearance or approval is ? [facility] ? Provider: ?? MOLINA HERR ? Pt. Name: ?? PERFECTO POLK X ? Acc #: ?[id number] ?Pt. ? Col Date: ?? 08/04/2010 ? /Sex: ?1940,(69 years),Male ? Rec Date: ?? 08/04/2010 ? LOC: ?3W ? ANALYTICAL CELL PATHOLOGY ? not necessary. ??This test is used for clinical purposes. ??It should not be ? regarded as investigational or for research. ??This laboratory is certified ? under the Clinical Laboratory Improvement Act of 1988 (CLIA) as qualified ? to perform high complexity clinical laboratory testing. [facility] 08/04/2010 4:58 PM EDT Molina Herr MD PATHOLOGY/CYTOLOGY O RDERASINGH [facility]CO A [facility]OL[facility] * FUNGAL STAIN (08/04/2010 4:51 PM EDT) Calcofluor White Stain ? Patient Name: PERFECTO POLK ? Ordered By: MOLINA HERR ? MR#: [id number] ?LOC: ??3W ? /Sex: ??1940 (69 years), ? Male ? PROCEDURE: Calcofluor White Stain ?SOURCE: Other ? COLLECTED: 08/04/2010 16:51 ?FREE TEXT SOURCE: L1-2 ? STARTED: 08/04/2010 16:52 ? STAINS / PREPARATIONS ? Calcofluor Stain Report ? Verified: 011 22:52 ? Calcofluor White Preparation: Negative ? [facility] A WOLF Specimen of unknown material (specimen) 08/04/2010 4:51 PM EDT 08/04/2010 4:52 PM EDT Comment:L1-2 Molina Herr MD MICROBIOLOGY - GENER AL ORDERABLES [facility] A [facility] * FUNGUS CULTURE (08/04/2010 4:51 PM EDT) Fungus Culture ? Patient Name: PERFECTO POLK ? Ordered By: MOLINA HERR ? MR#: [id number] ?LOC: ??3W ? /Sex: ??1940 (69 years), ? Male ? PROCEDURE: Fungus Culture ?SOURCE: Other ? COLLECTED: 08/04/2010 16:51 ?FREE TEXT SOURCE: L1-2 ? STARTED: 08/04/2010 16:52 ? FINAL REPORT ? Final Report ? Verified:2010 07:38 ? No Fungus isolated ? PRELIMINARY REPORT ? Preliminary Report ? Verified:2010 10:19 ? No Fungus isolated to date ? [facility]CO A WOLF Specimen of unknown material (specimen) 08/04/2010 4:51 PM EDT 08/04/2010 4:52 PM EDT Comment:L1-2 Molina Herr MD MICROBIOLOGY - GENER AL ORDERABLES [facility] A [facility] * REFLEX LAB-ANAEROBIC CULTURE (08/04/2010 4:51 PM EDT) Anaerobic Culture ? Patient Name: PERFECTO POLK ? Ordered By: MOLINA HERR ? MR#: [id number] ?LOC: ??3W ? /Sex: ??1940 (69 years), ? Male ? PROCEDURE: Anaerobic Culture ?SOURCE: Back ? COLLECTED: 08/04/2010 16:51 ?FREE TEXT SOURCE: L1-2 ? STARTED: 08/04/2010 16:52 ? FINAL REPORT ? Final Report ? Verified:2010 11:34 ? No anaerobic organisms isolated ? PRELIMINARY REPORT ? Preliminary Report ? Verified:2010 12:39 ? No anaerobic organisms isolated to date ? [facility] A WOLF Structure of back of trunk (body structure) 08/04/2010 4:51 PM EDT 08/04/2010 4:51 PM EDT Comment:L1-2 Molnia Herr MD MICROBIOLOGY - GENER AL ORDERABLES [facility] * TISSUE CULTURE (08/04/2010 4:51 PM EDT) Tissue Culture ? Patient Name: PERFECTO POLK ? Ordered By: MOLINA HERR ? MR#: [id number] ?LOC: ??3W ? /Sex: ??1940 (69 years), ? Male ? PROCEDURE: Tissue Culture ?SOURCE: Back ? COLLECTED: 08/04/2010 16:51 ?FREE TEXT SOURCE: L1-2 ? STARTED: 08/04/2010 16:52 ? STAINS / PREPARATIONS ? Gram Stain Report ? Verified:08/05/19 11 22:20 ? No WBC's seen. ? No microorganisms seen. ? FINAL REPORT ? Final Report ? Verified:08/09/19 11 09:18 ? No growth ? PRELIMINARY REPORT ? Preliminary Report ? Verified:08/06/19 11 07:32 ? No growth to date. ? [facility]CO A WOLF Structure of back of trunk (body structure) 08/04/2010 4:51 PM EDT 08/04/2010 4:51 PM EDT Comment:L1-2 Molina Herr MD MICROBIOLOGY - GENER AL ORDERABLES [facility] A [facility] * CT GUIDED BONE BIOPSY (08/04/2010 4:19 PM EDT) Anatomical Region Laterality Modality Computed Tomogra phy 08/04/2010 4:19 PM EDT Impressions 08/06/2010 8:20 AM EDT IMPRESSION: ?? 1. ?End plate irregularity and significant sclerosis of the L1 & L2 vertebral bodies. 2. ?Four core samples of the superior aspect of the L2 vertebral body and adjacent disc were obtained using a left transpedicular approach. ??Two samples were sent off for microbiology and two were sent wrapped within a Gelfoam sheath for the requested surgical pathology. Film and interpretation reviewed by the attending Narrative 08/06/2010 8:[address]-GUIDED L2 VERTEBRAL BODY BIOPSY: INDICATION: ??69-year-old male with lumbar pain and radiculitis. ??Recent outside MR demonstrates abnormal signal within the L1-L2 vertebral body level concerning for osteomyelitis/discitis. PROCEDURE: ??The risks (including infection, bleeding, nearby organ damage, and nerve root damage) and benefits were explained to the patient and informed written consent was obtained. ??The patient was placed prone on the CT table. ?? Initial CT of the L1-L2 level was obtained for biopsy path and entry site planning. ??The planned entry site was prepped and draped using maximal sterile technique and 1% lidocaine was used for local anesthetic. ??A #13-gauge SheZoom needle was advanced under intermittent CT through the left L2 pedicle. ??Four core samples were obtained of the superior L2 vertebral body and ajcent disc, two of which were sent to Microbiology and two were wrapped in Telfa and sent off for the additional requested laboratory evaluations. ??The biopsy needle was removed. ??The patient tolerated the procedure without immediate complication. Fentanyl 250 mcg, Versed [address] Edgar performed procedure. Procedure Note William Edgar MD - 08/06/2010 CT-GUIDED L2 VERTEBRAL BODY BIOPSY: INDICATION: 69-year-old male with lumbar pain and radiculitis. Recentoutside MR demonstrates abnormal signal within the L1-L2 vertebral body level concerning for osteomyelitis/discitis. PROCEDURE: The risks (including infection, bleeding, nearby organ damage,and nerve root damage) and benefits were explained to the patient and informed written consent was obtained. The patient was placed prone on the CTtable. Initial CT of the L1-L2 level was obtained for biopsy path and entry site planning. The planned entry site was prepped and draped using maximalsterile technique and 1% lidocaine was used for local anesthetic. A #13-gaugeStryker needle was advanced under intermittent CT through the left L2 pedicle.Four core samples were obtained of the superior L2 vertebral body and ajcentdisc, two of which were sent to Microbiology and two were wrapped in Telfa andsent off for the additional requested laboratory evaluations. The biopsyneedle was removed. The patient tolerated the procedure without immediatecomplication. Fentanyl 250 mcg, Versed [address] Edgar performed procedure. IMPRESSION IMPRESSION: 1. End plate irregularity and significant sclerosis of the L1 & L2 vertebral bodies. 2. Four core samples of the superior aspect of the L2 vertebral bodyand adjacent disc were obtained using a left transpedicular approach. Twosamples were sent off for microbiology and two were sent wrapped within a Gelfoam sheath for the requested surgical pathology. Film and interpretation reviewed by the attending Molina Herr MD IMG CT ORDERABLES * IMMUNOPHENOTYPING FLOW (08/04/2010 7:34 AM EDT) Type of Specimen Bone Biopsy C JAKY WOLF Panel Requested Lymphoma Panel MARCO A [employer] Immunophenotyping Flow See Note MARCO A [employer] Comment:See Flow Cytometry R eport ([id number]) under Pathology Reports. Body fluid specimen (specimen) 08/04/2010 7:34 AM EDT 08/04/2010 5:00 PM EDT Molina Herr MD HEMATOLOGY ORDERABLE S [facility] documented in this encounter Visit Diagnoses Not on filedocumented in this encounter Administered Medications Inactive Administered Medications - up to 3 most recent administrations Medication Order MAR Action Action Date Dose Rate Site fentaNYL 50mcg/mL injection 25-50 mcg, Intravenous, EVERY 5 MIN PRN, Starting on Tue08/04/10 at 1510, Until Tue08/04/10 at 1618, Pain, Angio/IR (Intra-Procedure), Routine Given 08/04/2010 4:00 PM EDT 250 mcg midazolam (VERSED) 1 mg/mL injection 1 dose, Starting on Tue08/04/10 at 1516, Until Tue08/04/10 at 1600, MADIHA QUILL: Cabinet Override midazolam (VERSED) injection 0.5-1 mg 0.5-1 mg, Intravenous, EVERY 5 MIN PRN, Starting on Tue08/04/10 at 1510, Until Tue08/04/10 at 1618, Sleep, Angio/IR (Intra-Procedure), Routine Given 08/04/2010 4:00 PM EDT 5 mg documented in this encounter Care Teams Asphalt Spreader Operator Relationship Specialty Start Date End Date Molina Herr MD [facility] [address] [place] [address] PCP - General 01/27/10 documented as of this encounter
--- OUTSIDE RECORDS SUMMARY | 2023-10-17 15:15 | XMS_ITS | Encounter Summary ---
[place] [address] Care Team Providers Care Franchise Sales Representative Name Role Phone Molina Herr MD Primary Care Provider Encounter Details Date Type Department Care Team (Late st Contact Info) Description 07/13/2010 [place] [phone] Molina Herr MD [facility] [address] [place] [address] Social History Tobacco Use Types Packs/Day Years [...] AM EDT Office [place] [phone] Elly Alston MD [facility] HOSPICE AND [place] [address] 10/27/2023 1:00 PM EDT Office Visit Speech Therapy at [place] [phone] Debra Franco, ROLANDO 11/03/2023 2:00 PM EDT Office Visit Speech Therapy at [place] [phone] Debra Franco, BRASSIERE CUP MOLD CUTTER 11/08/2023 2:30 PM EDT Appointment MRI at [place] [phone] Navjot Grider MD [facility] [address] [place] [address] 11/09/2023 1:45 PM EDT Office Visit Hematology and Oncology at [place] [phone] Isabell Jacob MD [facility] [place] [address] 11/11/2023 10:30 AM EDT Office Visit Radiation Oncology at [place] [phone] Nicki Sharpe MD [facility] [place] [address] 11/15/2023 10:00 AM EDT Office [place] [address] Debra Franco, BRASSIERE CUP MOLD CUTTER 11/16/2023 9:00 AM EDT Office Visit Hematology [place] [address] Bisi Nam 11/22/2023 10:00 AM EDT Office [place] [phone] Debra Franco, BRASSIERE CUP MOLD CUTTER 11/30/2023 9:00 AM EDT Office Visit Hematology [place] [address] Bisi Nam 12/14/2023 9:00 AM EDT Office Visit Hematology and Oncology at [facility] [place] [address] Bisi Nam 12/28/2023 9:00 AM EDT Office Visit Hematology [place] [address] Cyril Bisi Gareth documented as of this encounter Procedures Procedure Name Priority Date/Time Associated Diagnosis Comments FILM LIBRARY STORAGE ONLY MR SPINE Routine 07/13/2010 12:54 PM EDT documented in this encounter Results * FILM LIBRARY- STORAGE ONLY MR SPINE (07/13/2010 12:54 PM EDT) 07/13/2010 12:5 4 PM EDT Narrative RAD - 06/15/2013 11:44 AM EDT This is a non-reportable exam. Procedure Note Corey Marvin - 06/15/2013 This is a non-reportable exam. Molina Herr MD [facility] [place] FILM LIBRARY ORD ERABLES [facility] [address] [facility] [place] [address] documented in this encounter Visit Diagnoses Not on filedocumented in this encounter Care Teams Franchise Sales Representative Relationship Specialty Start Date End Date Molina Herr MD [facility] [address] [place] [address] PCP - General 01/27/10 documented as of this encounter
== END 2023-10-17 14:54 | disposition home or self-care (01) ==
LOC: LBO 15:01
PROVIDERS: Visit Provider Physician Assistant Medical
DX: C71.2 Malignant neoplasm of temporal lobe (principal); Z79.899 Other long term (current) drug therapy; D69.6 Thrombocytopenia, unspecified; D72.810 Lymphocytopenia
CPT/HCPCS: 36415; 85025

== ENCOUNTER 2023-10-20 11:41 | Outpatient (CLI) | payer MEDICARE, SELFPAY ==
[2023-10-20 11:06] LABS: HCT 33.5 % (40.0-50.0); MCH 28.6 pg (27.0-33.0); MCHC 32.8 % (32.0-36.0); MCV 87 fL (80-95); MPV 9.7 fL (8.0-11.0); RBC 3.85 10^6/uL (4.36-5.78); RDW-SD 52.9 fL
[2023-10-20 11:31] LABS: Absolute Eosinophil Count 0.02 10^3/uL (0.0-0.7); Absolute Lymphocyte Count 0.41 10^3/uL (1.2-3.4); Absolute Monocyte Count 0.05 10^3/uL (0.1-0.8); Diff Comment Manual Differential; RBC Morphology Normal
[2023-10-20 11:32] LABS: Platelet Count 44 10^3/uL (130-400)
[2023-10-20 11:34] LABS: WBC 0.68 10^3/uL (4.4-10.8)
== END 2023-10-20 11:42 | disposition home or self-care (01) ==
LOC: LBO 11:42
PROVIDERS: Visit Provider Physician Assistant Medical
DX: Z79.899 Other long term (current) drug therapy (principal); D69.6 Thrombocytopenia, unspecified
CPT/HCPCS: 36415; 85025